=== PATIENT | male | born 1955 | race Caucasian/White ===

== ENCOUNTER 2016-08-03 23:41 | Emergency (ER) | payer MEDICARE, OTHER ==
[2016-08-03 23:53] VITALS: TEMP 98
[2016-08-04] MEDS ORDERED: SODIUM CHLORIDE 0.9% 500 ML IV STA (00:33)
[2016-08-04] MEDS ORDERED: LORazepam 2 MG/ML SYRINGE IV STA (00:33)
[2016-08-04] MEDS ORDERED: ALBUTEROL NEBULIZED 2.5 MG/3 ML INHALATION STA (00:33)
[2016-08-04] MEDS ORDERED: IPRATROPIUM 0.5 MG/2.5 ML NEBU INHALATION STA (00:33)
[2016-08-04] MEDS ORDERED: methylPREDNISolone SOD SUCCI 125 MG/2 ML VIAL IV STA (00:33)
[2016-08-04] MEDS ORDERED: KETOROLAC 30 MG/ML 1 ML VIAL IVP STA (00:34)
[2016-08-04] MEDS ORDERED: MORPHINE SULFATE 4 MG/ML SYRINGE IVP STA (00:34)
--- NOTE | 2016-08-04 00:53 | ED ---
General Adult HPI - General Chief complaint: Extremity Injury, Upper Stated complaint: Fall- Arm Injury-GREGG Time Seen by Provider: 08/04/16 00:26 Source: patient, RN notes reviewed, old records reviewed Mode of arrival: wheelchair Limitations: no limitations - History of Present Illness Initial comments: Physical a 60-year-old male the ER for evaluation. Patient then year status post fall. Patient also complained of shortness of breath and pain up and down his left arm. Patient into his neck. Patient states this pain is acute on chronic in nature but may be related to this fall. Patient is willing out of bed when he did sustain a smoker patient has multiple medical Gucci is including history of heart disease and lung disease. History of chronic pain. Denies any fevers. States recent hospital admission within a month for COPD. - Related Data Home Medications Medication Instructions Recorded Confirmed Montelukast [Singulair] 10 mg PO DAILY 03/16/14 08/03/16 amLODIPine [Norvasc] 5 mg PO QAM 07/05/14 08/03/16 ALPRAZolam [Xanax] 1 mg PO TID PRN 09/20/15 08/03/16 Desvenlafaxine Succinate [Pristiq] 100 mg PO QAM 09/20/15 08/03/16 Hydrocodone/Acetaminophen [[place] 1 tab PO BID PRN 04/08/16 08/03/16 10-325] fentaNYL [fentaNYL 50 MCG/HR] 1 patch TOPICAL Q72H 04/08/16 08/03/16 Clindamycin Gel [Clindamycin 1 applic TOPICAL BID 06/18/16 08/03/16 Phosphate] Fluticasone/Vilanterol [Breo 1 puff INHALATION RT-DAILY 07/16/16 08/03/16 Ellipta 100-25 Mcg Inhaler] Umeclidinium [place] [Incruse 1 puff INHALATION RT-DAILY 07/16/16 08/03/16 Ellipta] Previous Rx's Medication Instructions Recorded HYDROmorphone [Dilaudid] 1 mg PO Q8H PRN #15 tab 07/16/16 Levofloxacin [Levaquin] 500 mg PO DAILY #7 tab 07/16/16 predniSONE 50 mg PO DAILY #5 tab 07/16/16 Ipratropium-Albuterol Nebulize 3 ml INHALATION RT-Q4H PRN #0 07/19/16 [Duoneb 0.5 mg-3 mg/3 ml Soln] ampul.neb Allergies Allergy/AdvReac Type Severity Reaction Status Date / Time peanut Allergy alg testing Verified 08/03/16 23:53 DUST Allergy alg testing Uncoded 08/03/16 23:53 POLLEN Allergy alg testing Uncoded 08/03/16 23:53 Review of Systems ROS Statement: Those systems with pertinent positive or pertinent negative responses have been documented in the HPI. ROS Other: All systems not noted in ROS Statement are negative. Past Medical History Past Medical History: Atrial Flutter, Asthma, Chest Pain / Angina, COPD, GERD/ Reflux, Hypertension, Osteoarthritis (OA), Pneumonia, Sleep Apnea/CPAP/BIPAP Additional Past Medical History / Comment(s): 08/27/15 PT presented to [facility] ER with episode of substernal chest tightness and discomfort which is worse with coughing and deep breathing. He states he has had chills at home and a cough. Pt thinks he is not feeling right in his head. He is admitted with clinical impression of pneumonia, with elevated troponin 1 and CHF. Pt states he has been admitted to [facility] twice in the past month for pneumonia. Other HX : tracheopbronchitis, CELE with device-unable to tolerate CPAP, CERVICAL RADICULOPATHY, DDD, chronic low back pain, rosacia, peripheral edema at times, lower GI bleed with blood in stool, migraines, steroids Sep 2015,currently having nausea with abdominal pain History of Any Multi-Drug Resistant Organisms: None Reported Past Surgical History: Adenoidectomy, Bowel Resection Additional Past Surgical History / Comment(s): REMOVAL OF UVULA. bowel resection for large polyps, colonoscopy with polypectomies, nasal surgery x 2, bronchoscopy with lung bx, pain clinic procedures. Past Anesthesia/Blood Transfusion Reactions: Previous Problems w/ Anesthesia Additional Past Anesthesia/Blood Transfusion Reaction / Comment(s): states "during procedure of checking something on my left lung,I turned blue and I was brought right back out anesthesia and proc was cancelled" Past Psychological History: Anxiety, Bipolar, Depression, Panic Disorder Additional Psychological History / Comment(s): Pt resides alone in an apartment. He uses a cane to ambulate. There are several stairs in his apt He has a nebulizer. Smoking Status: Former smoker Past Alcohol Use History: Rare Additional Past Alcohol Use History / Comment(s): Pt quit smoking in the 1979. He had been a ppd smoker for about 15 yrs. Past Drug Use History: None Reported - Past Family History Mother Family Medical History: Asthma Father Family Medical History: CVA/TIA General Exam Limitations: no limitations General appearance: anxious Head exam: Present: atraumatic, normocephalic, normal inspection Eye exam: Present: normal appearance, PERRL, EOMI. Absent: scleral icterus, conjunctival injection, periorbital swelling ENT exam: Present: normal exam, mucous membranes moist Neck exam: Present: normal inspection. Absent: tenderness, meningismus, lymphadenopathy Respiratory exam: Present: normal lung sounds bilaterally. Absent: respiratory distress, wheezes, rales, rhonchi, stridor Cardiovascular Exam: Present: regular rate, normal rhythm, normal heart sounds. Absent: systolic murmur, diastolic murmur, rubs, gallop, clicks GI/Abdominal exam: Present: soft, normal bowel sounds. Absent: distended, tenderness, guarding, rebound, rigid Extremities exam: Present: normal inspection, full ROM, normal capillary refill. Absent: tenderness, pedal edema, joint swelling, calf tenderness Back exam: Present: normal inspection Neurological exam: Present: alert, oriented X3, CN II-XII intact Psychiatric exam: Present: normal affect, normal mood Skin exam: Present: warm, dry, intact, normal color. Absent: rash Course Vital Signs 08/03/16 08/03/16 08/04/16 23:48 23:52 00:52 Temperature 98.0 F Pulse Rate 96 101 H 98 Respiratory 18 16 18 Rate Blood Pressure 130/65 154/78 150/44 O2 Sat by Pulse 94 L 97 97 Oximetry 08/04/16 08/04/16 08/04/16 00:55 01:05 01:21 Temperature Pulse Rate 103 H 97 96 Respiratory Rate Blood Pressure O2 Sat by Pulse Oximetry 08/04/16 02:00 Temperature Pulse Rate 100 Respiratory 16 Rate Blood Pressure 156/74 O2 Sat by Pulse 97 Oximetry - Reevaluation(s) Reevaluation #1: 08/04/16 03:13 Symptoms at this time much improved, patient would like to go home EKG Findings - EKG Comments: EKG Findings:: EKG shows a sinus tach with a rate of 104, PA 126, QRS 88, QTc 457 Medical Decision Making - Medical Decision Making 60 LDR for evaluation of fall. Patient follow-up neck pain and shortness of breath, COPD exacerbation neck contusion and sprain, patient's pain is symptoms are controlled this time, patient is okay for discharge home - Lab Data Result diagrams: 08/04/16 01:05 08/04/16 01:05 Lab Results 08/04/16 08/04/16 08/04/16 Range/Units 01:05 01:05 01:05 WBC 8.3 (3.8-10.6) k/uL RBC 4.44 (4.30-5.90) m/uL Hgb 15.3 (13.0-17.5) gm/dL Hct 45.1 (39.0-53.0) % MCV 101.6 H (80.0-100.0) fL MCH 34.4 (25.0-35.0) pg MCHC 33.9 (31.0-37.0) g/dL RDW 13.5 (11.5-15.5) % Plt Count 203 (150-450) k/uL Neutrophils % 83 % Lymphocytes % 11 % Monocytes % 6 % Eosinophils % 0 % Basophils % 0 % Neutrophils # 6.8 (1.3-7.7) k/uL Lymphocytes # 0.9 L (1.0-4.8) k/uL Monocytes # 0.5 (0-1.0) k/uL Eosinophils # 0.0 (0-0.7) k/uL Basophils # 0.0 (0-0.2) k/uL Macrocytosis Slight PT (9.0-12.0) sec INR (<1.1) APTT (22.0-30.0) sec Sodium 146 H (137-145) mmol/L Potassium 4.1 (3.5-5.1) mmol/L Chloride 107 (98-107) mmol/L Carbon Dioxide 22 (22-30) mmol/L Anion Gap 17 mmol/L BUN 24 H (9-20) mg/dL Creatinine 0.90 (0.66-1.25) mg/dL Est GFR (MDRD) Af Amer >60 (>60 ml/min/1.73 sqM) Est GFR (MDRD) Non-Af >60 (>60 ml/min/1.73 sqM) Glucose 132 H (74-99) mg/dL Calcium 9.2 (8.4-10.2) mg/dL Magnesium 2.1 (1.6-2.3) mg/dL Total Bilirubin 0.5 (0.2-1.3) mg/dL AST 43 (17-59) U/L ALT 82 H (21-72) U/L Alkaline Phosphatase 90 (38-126) U/L Total Creatine Kinase 35 L (55-170) U/L CK-MB (CK-2) 1.0 (0.0-2.4) ng/mL CK-MB (CK-2) Rel Index 2.9 Troponin I <0.012 (0.000-0.034) ng/mL NT-Pro-B Natriuret Pep pg/mL Total Protein 6.3 (6.3-8.2) g/dL Albumin 4.1 (3.5-5.0) g/dL 08/04/16 08/04/16 Range/Units 01:05 01:05 WBC (3.8-10.6) k/uL RBC (4.30-5.90) m/uL Hgb (13.0-17.5) gm/dL Hct (39.0-53.0) % MCV (80.0-100.0) fL MCH (25.0-35.0) pg MCHC (31.0-37.0) g/dL RDW (11.5-15.5) % Plt Count (150-450) k/uL Neutrophils % % Lymphocytes % % Monocytes % % Eosinophils % % Basophils % % Neutrophils # (1.3-7.7) k/uL Lymphocytes # (1.0-4.8) k/uL Monocytes # (0-1.0) k/uL Eosinophils # (0-0.7) k/uL Basophils # (0-0.2) k/uL Macrocytosis PT 9.9 (9.0-12.0) sec INR 1.0 (<1.1) APTT 21.5 L (22.0-30.0) sec Sodium (137-145) mmol/L Potassium (3.5-5.1) mmol/L Chloride (98-107) mmol/L Carbon Dioxide (22-30) mmol/L Anion Gap mmol/L BUN (9-20) mg/dL Creatinine (0.66-1.25) mg/dL Est GFR (MDRD) Af Amer (>60 ml/min/1.73 sqM) Est GFR (MDRD) Non-Af (>60 ml/min/1.73 sqM) Glucose (74-99) mg/dL Calcium (8.4-10.2) mg/dL Magnesium (1.6-2.3) mg/dL Total Bilirubin (0.2-1.3) mg/dL AST (17-59) U/L ALT (21-72) U/L Alkaline Phosphatase (38-126) U/L Total Creatine Kinase (55-170) U/L CK-MB (CK-2) (0.0-2.4) ng/mL CK-MB (CK-2) Rel Index Troponin I (0.000-0.034) ng/mL NT-Pro-B Natriuret Pep 201 pg/mL Total Protein (6.3-8.2) g/dL Albumin (3.5-5.0) g/dL Disposition Clinical Impression: COPD (chronic obstructive pulmonary disease) with acute bronchitis, Cervical strain, Fall Disposition: HOME SELF-CARE Condition: Good Instructions: Neck Pain (ED), COPD (Chronic Obstructive Pulmonary Disease) (ED)
[2016-08-04] MEDS: SODIUM CHLORIDE 0.9% 1,000 ML IV STA ×2 (01:06→02:50)
[2016-08-04 01:32] LABS: Basophils % (A) 0 %; CH 34.6; CHCM 34.2; Eosinophils % (A) 0 %; HCT 45.1 % (39.0-53.0); HDW 2.73; HGB 15.3 gm/dL (13.0-17.5); Luc # (Auto) 0.06; Luc % (Auto) 1; Lymphocytes # (A) 0.9 k/uL (1.0-4.8); Lymphocytes % (A) 11 %; MCH 34.4 pg (25.0-35.0); MCHC 33.9 g/dL (31.0-37.0); MCV 101.6 fL (80.0-100.0); Macrocytosis Slight; Mean Platelet Volume 6.7; Monocytes # (A) 0.5 k/uL (0-1.0); Monocytes % (A) 6 %; Neutrophils # (A) 6.8 k/uL (1.3-7.7); Neutrophils % (A) 83 %; RBC 4.44 m/uL (4.30-5.90); RDW 13.5 % (11.5-15.5); WBC 8.3 k/uL (3.8-10.6); WBC (Perox) 8.26
[2016-08-04 01:49] LABS: ALT 82 U/L (21-72); AST 43 U/L (17-59); Alkaline Phosphatase 90 U/L (38-126); Anion Gap 17 mmol/L; Blood Urea Nitrogen 24 mg/dL (9-20); Calcium 9.2 mg/dL (8.4-10.2); Carbon Dioxide 22 mmol/L (22-30); Chloride 107 mmol/L (98-107); Glucose 132 mg/dL (74-99); Magnesium 2.1 mg/dL (1.6-2.3); Non-African American GFR(MDRD) >60 (>60 ml/min/1.73 sqM); Potassium 4.1 mmol/L (3.5-5.1); Sodium 146 mmol/L (137-145); Total Bilirubin 0.5 mg/dL (0.2-1.3); Total Protein 6.3 g/dL (6.3-8.2)
[2016-08-04 01:54] LABS: Prothrombin Time 9.9 sec (9.0-12.0)
[2016-08-04 01:57] LABS: Creatine Kinase 35 U/L (55-170)
[2016-08-04] MEDS ORDERED: HYDROmorphone 2 MG/ML 1 ML SYRINGE IVP STA (02:00)
[2016-08-04 02:11] LABS: Partial Thromboplastin Time 21.5 sec (22.0-30.0); Troponin I <0.012 ng/mL (0.000-0.034)
--- NOTE | 2016-08-04 02:34 | XR ---
EXAMINATION TYPE: XR chest 2V DATE OF EXAM: 08/04/2016 1:30 AM COMPARISON: July 18, 2016 HISTORY: Difficulty in breathing TECHNIQUE: Frontal and lateral views of the chest are obtained. FINDINGS: Mild peribronchial cuffing is suggested with possible chronic bronchitis changes. There is no focal air space opacity, pleural effusion, or pneumothorax seen. The cardiac silhouette size is within normal limits. The osseous structures are intact. IMPRESSION: 1. Possible chronic bronchitis changes. 2. No focal pneumonia. 3. No significant change.
[2016-08-04 02:48] VITALS: RESP 16
--- NOTE | 2016-08-04 03:09 | XR ---
EXAMINATION TYPE: XR cervical spine limited DATE OF EXAM: 08/04/2016 1:34 AM CLINICAL HISTORY: pain COMPARISON: NONE TECHNIQUE: Frontal, lateral, , swimmers, and open mouth view of the cervical spine are obtained. 3 vi ews of cervical spine were obtained. FINDINGS: The C7 vertebra is not well-visualized in the lateral view. The cervical spine is visualized in its e ntirety from C1 thru the top of T1 level. It is satisfactory in alignment without evidence of acute f racture or dislocation. The pre-vertebral soft tissue appears within normal limits. Disc spaces are well preserved. The C1-C2 articulation is unremarkable on the open mouth view. Mild endplate spondy losis is noted in the cervical spine. IMPRESSION: No acute fracture or dislocation is seen in the cervical spine in the visualized cervica l spine. The C7 vertebra is not well visualized in the evaluation..ICD 10 NO FRACTURE, INITIAL EVALUA TION If clinically indicated CT scan would BE beneficial in the evaluation.
[2016-08-04 03:44] VITALS: BP 130/77; PULSE 78
== END 2016-08-04 03:44 | disposition home or self-care (01) ==
LOC: EC 23:41
DX: S16.1XXA Strain of muscle, fascia and tendon at neck level, initial encounter (principal); J44.0 Chronic obstructive pulmonary disease with (acute) lower respiratory infection; J44.1 Chronic obstructive pulmonary disease with (acute) exacerbation; J20.9 Acute bronchitis, unspecified; J45.909 Unspecified asthma, uncomplicated; S10.83XA Contusion of other specified part of neck, initial encounter; K21.9 Gastro-esophageal reflux disease without esophagitis; I20.9 Angina pectoris, unspecified; F31.9 Bipolar disorder, unspecified; I10 Essential (primary) hypertension; F41.9 Anxiety disorder, unspecified; Z91.010 Allergy to peanuts; Z87.01 Personal history of pneumonia (recurrent); Z79.891 Long term (current) use of opiate analgesic; Y92.009 Unspecified place in unspecified non-institutional (private) residence as the place of occurrence of the external cause; W19.XXXA Unspecified fall, initial encounter; Z91.048 Other nonmedicinal substance allergy status; Z87.891 Personal history of nicotine dependence; Z79.899 Other long term (current) drug therapy; Z79.52 Long term (current) use of systemic steroids; Z79.51 Long term (current) use of inhaled steroids; Z79.2 Long term (current) use of antibiotics
CPT/HCPCS: 96374; 96375 ×4; 96361 ×2; 99284; 36415; 94640; 93005; 83880; 80053; 82550; 82553; 83735; 84484; 85025; 85610; 85730; 71020; 72040; J2270; J1170; J2930; J1885

== ENCOUNTER 2016-08-29 22:09 | Emergency (ER) | payer MEDICARE, OTHER ==
[2016-08-29 22:14] VITALS: BP 179/79; PULSE 95; RESP 20; TEMP 98.5
[2016-08-29] MEDS ORDERED: ORPHENADRINE 30 MG/ML 2 ML VIAL IM STA (22:31)
[2016-08-29] MEDS ORDERED: KETOROLAC 30 MG/ML 1 ML VIAL IM STA (22:32)
[2016-08-29] MEDS ORDERED: HYDROmorphone 1 MG/ML 1 ML SYRINGE IM STA (22:37)
--- NOTE | 2016-08-29 22:39 | ED ---
Back Pain HPI - General Chief Complaint: Back Pain/Injury Stated Complaint: neck & back pain Time Seen by Provider: 08/29/16 22:16 Source: patient, RN notes reviewed Limitations: no limitations - History of Present Illness Initial Comments: Patient is a 60-year-old male with chief complaint of neck and lower back pain. Patient reports that he has chronic back pain. Patient reports that he took one [place] earlier today however it is not helped with his pain. Patient reports that he does see Dr. Price his neurologist and has a scheduled appointment in 4 days for spinal injections for his chronic back pain. Patient reports that he's had no recent falls or injuries to the back. Patient reports that his pain is positional. He denies any specific peripheral paresthesias including numbness or tingling. Patient does have a history of COPD but denies any significant cough or chest pain or shortness of breath. Patient states that he does not want a prescription for any pain medication as he is on a pain contract with his neurologist. He states that he would just like to have the pain management is in the ER and to follow-up with his primary care. Patient was able to ambulate and denies any saddle anesthesias. - Related Data Home Medications Medication Instructions Recorded Confirmed Montelukast [Singulair] 10 mg PO DAILY 03/16/14 08/29/16 amLODIPine [Norvasc] 5 mg PO QAM 07/05/14 08/29/16 ALPRAZolam [Xanax] 1 mg PO TID PRN 09/20/15 08/29/16 Hydrocodone/Acetaminophen [[place] 1 tab PO BID PRN 04/08/16 08/29/16 10-325] Fluticasone/Vilanterol [Breo 1 puff INHALATION RT-DAILY 07/16/16 08/29/16 Ellipta 100-25 Mcg Inhaler] Previous Rx's Medication Instructions Recorded Ipratropium-Albuterol Nebulize 3 ml INHALATION RT-Q4H PRN #0 07/19/16 [Duoneb 0.5 mg-3 mg/3 ml Soln] ampul.neb Cyclobenzaprine [Flexeril] 10 mg PO HS #12 tablet 08/29/16 Allergies Allergy/AdvReac Type Severity Reaction Status Date / Time peanut Allergy alg testing Verified 08/03/16 23:53 DUST Allergy alg testing Uncoded 08/03/16 23:53 POLLEN Allergy alg testing Uncoded 08/03/16 23:53 Review of Systems ROS Statement: Those systems with pertinent positive or pertinent negative responses have been documented in the HPI. ROS Other: All systems not noted in ROS Statement are negative. Past Medical History Past Medical History: Atrial Flutter, Asthma, Chest Pain / Angina, COPD, GERD/ Reflux, Hypertension, Osteoarthritis (OA), Pneumonia, Sleep Apnea/CPAP/BIPAP Additional Past Medical History / Comment(s): 08/27/15 PT presented to [facility] ER with episode of substernal chest tightness and discomfort which is worse with coughing and deep breathing. He states he has had chills at home and a cough. Pt thinks he is not feeling right in his head. He is admitted with clinical impression of pneumonia, with elevated troponin 1 and CHF. Pt states he has been admitted to [facility] twice in the past month for pneumonia. Other HX : tracheopbronchitis, CELE with device-unable to tolerate CPAP, CERVICAL RADICULOPATHY, DDD, chronic low back pain, rosacia, peripheral edema at times, lower GI bleed with blood in stool, migraines, steroids Sep 2015,currently having nausea with abdominal pain History of Any Multi-Drug Resistant Organisms: None Reported Past Surgical History: Adenoidectomy, Bowel Resection Additional Past Surgical History / Comment(s): REMOVAL OF UVULA. bowel resection for large polyps, colonoscopy with polypectomies, nasal surgery x 2, bronchoscopy with lung bx, pain clinic procedures. Past Anesthesia/Blood Transfusion Reactions: Previous Problems w/ Anesthesia Additional Past Anesthesia/Blood Transfusion Reaction / Comment(s): states "during procedure of checking something on my left lung,I turned blue and I was brought right back out anesthesia and proc was cancelled" Past Psychological History: Anxiety, Bipolar, Depression, Panic Disorder Additional Psychological History / Comment(s): Pt resides alone in an apartment. He uses a cane to ambulate. There are several stairs in his apt He has a nebulizer. Smoking Status: Former smoker Past Alcohol Use History: Occasional Additional Past Alcohol Use History / Comment(s): Pt quit smoking in the 1979. He had been a ppd smoker for about 15 yrs. Past Drug Use History: None Reported - Past Family History Mother Family Medical History: Asthma Father Family Medical History: CVA/TIA General Exam - General Exam Comments Initial Comments: Patient is a pleasant 60-year-old male. He does not appear to be in any acute distress. Limitations: no limitations General appearance: alert, in no apparent distress Head exam: Present: atraumatic, normocephalic, normal inspection Eye exam: Present: normal appearance, PERRL, EOMI. Absent: scleral icterus, conjunctival injection, periorbital swelling ENT exam: Present: normal exam, mucous membranes moist Neck exam: Present: normal inspection. Absent: tenderness, meningismus, lymphadenopathy Respiratory exam: Present: normal lung sounds bilaterally. Absent: respiratory distress, wheezes, rales, rhonchi, stridor Cardiovascular Exam: Present: regular rate, normal rhythm, normal heart sounds. Absent: systolic murmur, diastolic murmur, rubs, gallop, clicks GI/Abdominal exam: Present: soft, normal bowel sounds. Absent: distended, tenderness, guarding, rebound, rigid Extremities exam: Present: normal inspection, full ROM, normal capillary refill. Absent: tenderness, pedal edema, joint swelling, calf tenderness Back exam: Present: normal inspection, paraspinal tenderness. Absent: CVA tenderness (L) Neurological exam: Present: alert, oriented X3, CN II-XII intact Psychiatric exam: Present: normal affect, normal mood Skin exam: Present: warm, dry, intact, normal color. Absent: rash Course Vital Signs 08/29/16 22:11 Temperature 98.5 F Pulse Rate 95 Respiratory 20 Rate Blood Pressure 179/79 O2 Sat by Pulse 96 Oximetry Medical Decision Making - Medical Decision Making Patient is a 60-year-old male with a history of chronic back pain. Patient reports that he is back is in significant pain however he denies any falls or specific injuries to cause the new pain. Given the fact the patient has no specific falls or injuries to cause a new onset of pain we will hold on doing any x-rays at this time. Patient hasn't had recent cervical, lumbar and thoracic x-rays. Patient reports that he took one of his [place] at home earlier today however he is now out of them. He does state he is on a pain contract with Dr. Price and is unable to receive any prescriptions for pain medications. Patient reports that he has no saddle anesthesias and denies any other symptoms at this time. Patient was given IM Norflex, Toradol and 0.5 of Dilaudid for his pain. Patient advised to follow-up with primary care and neurologist in regards to narcotic pain medications. Patient understands treatment plan will comply. Return parameters were discussed. Disposition Clinical Impression: Back pain Disposition: HOME SELF-CARE Condition: Good Instructions: Chronic Back Pain (ED) Additional Instructions: Patient advised to follow up with primary care provider. Patient instructed to return to the [facility] if any alarming signs or symptoms occur. Prescriptions: Cyclobenzaprine [Flexeril] 10 mg PO HS #12 tablet Referrals: Michael Nuñez MD [Primary Care Provider] - 1-2 days Time of Disposition: 22:32
== END 2016-08-29 23:05 | disposition home or self-care (01) ==
LOC: EC 22:09
DX: G89.29 Other chronic pain (principal); M54.5 Low back pain; G47.30 Sleep apnea, unspecified; J45.909 Unspecified asthma, uncomplicated; J44.9 Chronic obstructive pulmonary disease, unspecified; Z91.010 Allergy to peanuts; Z87.891 Personal history of nicotine dependence; Z91.048 Other nonmedicinal substance allergy status; Z79.899 Other long term (current) drug therapy
CPT/HCPCS: 99283; 96372 ×3; J2360; J1885; J1170

== ENCOUNTER 2016-08-30 04:05 | Emergency (ER) | payer MEDICARE, OTHER ==
[2016-08-30] MEDS ORDERED: SODIUM CHLORIDE 0.9% 500 ML IV STA (05:02)
[2016-08-30] MEDS ORDERED: KETOROLAC 30 MG/ML 1 ML VIAL IVP STA ×2 (05:03→06:13)
[2016-08-30] MEDS ORDERED: methylPREDNISolone SOD SUCCI 125 MG/2 ML VIAL IV STA (05:03)
[2016-08-30] MEDS ORDERED: ORPHENADRINE 30 MG/ML 2 ML VIAL IVP STA (05:03)
--- NOTE | 2016-08-30 05:06 | ED ---
Back Pain HPI - General Source: patient, RN notes reviewed Limitations: no limitations - History of Present Illness MD Complaint: other <Alexander Dykes - Last Filed: 08/30/16 06:49> <Gerry Gross - Last Filed: 08/30/16 08:12> - General Chief Complaint: Back Pain/Injury Stated Complaint: neck/back pain-revisit Time Seen by Provider: 08/30/16 04:48 - History of Present Illness Initial Comments: This is a 60-year-old male with a history of multiple medical problems including degenerative disc disease and chronic back pain who states he had the onset over last day or so of left-sided neck and shoulder pain. He was seen in the emergency department last night and some medications he states it did not help very much. He states he couldn't sleep so he can make an for reevaluation. He denies any fevers chills sweats nausea vomiting any weakness was upper or lower extremities. He complains some pain and points to the left lateral posterior neck musculature. He denies any spinous process tenderness. Patient states the pain is 10/10 and sharp in nature. (Alexander Dykes) - Related Data Home Medications Medication Instructions Recorded Confirmed Montelukast [Singulair] 10 mg PO DAILY 03/16/14 08/30/16 amLODIPine [Norvasc] 5 mg PO QAM 07/05/14 08/30/16 ALPRAZolam [Xanax] 1 mg PO TID PRN 09/20/15 08/30/16 Hydrocodone/Acetaminophen [[place] 1 tab PO BID PRN 04/08/16 08/30/16 10-325] Fluticasone/Vilanterol [Breo 1 puff INHALATION RT-DAILY 07/16/16 08/30/16 Ellipta 100-25 Mcg Inhaler] Previous Rx's Medication Instructions Recorded Ipratropium-Albuterol Nebulize 3 ml INHALATION RT-Q4H PRN #0 07/19/16 [Duoneb 0.5 mg-3 mg/3 ml Soln] ampul.neb Cyclobenzaprine [Flexeril] 10 mg PO HS #12 tablet 08/29/16 Allergies Allergy/AdvReac Type Severity Reaction Status Date / Time peanut Allergy alg testing Verified 08/03/16 23:53 DUST Allergy alg testing Uncoded 08/03/16 23:53 POLLEN Allergy alg testing Uncoded 08/03/16 23:53 Review of Systems ROS Other: All systems not noted in ROS Statement are negative. <Alexander Dykes - Last Filed: 08/30/16 06:49> ROS Other: All systems not noted in ROS Statement are negative. <Gerry Gross - Last Filed: 08/30/16 08:12> ROS Statement: Those systems with pertinent positive or pertinent negative responses have been documented in the HPI. Past Medical History Past Medical History: Atrial Flutter, Asthma, Chest Pain / Angina, COPD, GERD/ Reflux, Hypertension, Osteoarthritis (OA), Pneumonia, Sleep Apnea/CPAP/BIPAP Additional Past Medical History / Comment(s): 08/27/15 PT presented to [facility] ER with episode of substernal chest tightness and discomfort which is worse with coughing and deep breathing. He states he has had chills at home and a cough. Pt thinks he is not feeling right in his head. He is admitted with clinical impression of pneumonia, with elevated troponin 1 and CHF. Pt states he has been admitted to [facility] twice in the past month for pneumonia. Other HX : tracheopbronchitis, CELE with device-unable to tolerate CPAP, CERVICAL RADICULOPATHY, DDD, chronic low back pain, rosacia, peripheral edema at times, lower GI bleed with blood in stool, migraines, steroids Sep 2015,currently having nausea with abdominal pain History of Any Multi-Drug Resistant Organisms: None Reported Past Surgical History: Adenoidectomy, Bowel Resection Additional Past Surgical History / Comment(s): REMOVAL OF UVULA. bowel resection for large polyps, colonoscopy with polypectomies, nasal surgery x 2, bronchoscopy with lung bx, pain clinic procedures. Past Anesthesia/Blood Transfusion Reactions: Previous Problems w/ Anesthesia Additional Past Anesthesia/Blood Transfusion Reaction / Comment(s): states "during procedure of checking something on my left lung,I turned blue and I was brought right back out anesthesia and proc was cancelled" Past Psychological History: Anxiety, Bipolar, Depression, Panic Disorder Additional Psychological History / Comment(s): Pt resides alone in an apartment. He uses a cane to ambulate. There are several stairs in his apt He has a nebulizer. Smoking Status: Former smoker Past Alcohol Use History: Occasional Additional Past Alcohol Use History / Comment(s): Pt quit smoking in the 1979. He had been a ppd smoker for about 15 yrs. Past Drug Use History: None Reported - Past Family History Mother Family Medical History: Asthma Father Family Medical History: CVA/TIA <Alexander Dykes - Last Filed: 08/30/16 06:49> General Exam Limitations: no limitations General appearance: alert, in no apparent distress Head exam: Present: atraumatic, normocephalic, normal inspection Eye exam: Present: normal appearance, PERRL, EOMI. Absent: scleral icterus, conjunctival injection, periorbital swelling ENT exam: Present: normal exam, mucous membranes moist Neck exam: Present: normal inspection, tenderness, other (Tenderness to palpation over left posterior lower neck musculature and paraspinous muscles no spinous process tenderness. It is palpation over the medial trapezius muscle.) . Absent: meningismus, full ROM, lymphadenopathy, thyromegaly Respiratory exam: Present: normal lung sounds bilaterally. Absent: respiratory distress, wheezes, rales, rhonchi, stridor Cardiovascular Exam: Present: regular rate, normal rhythm, normal heart sounds. Absent: systolic murmur, diastolic murmur, rubs, gallop, clicks Extremities exam: Present: normal inspection, full ROM, normal capillary refill. Absent: tenderness, pedal edema, joint swelling, calf tenderness Back exam: Present: normal inspection Neurological exam: Present: alert, oriented X3, CN II-XII intact Psychiatric exam: Present: normal affect, normal mood Skin exam: Present: warm, dry, intact, normal color. Absent: rash <Alexander Dykes - Last Filed: 08/30/16 06:49> <Gerry Gross - Last Filed: 08/30/16 08:12> - General Exam Comments Initial Comments: This is a well-developed well-nourished awake alert oriented times 3 male (Donis Alexander) Course <Alexander Dykes - Last Filed: 08/30/16 06:49> <Gerry Gross - Last Filed: 08/30/16 08:12> Vital Signs 08/30/16 08/30/16 08/30/16 04:35 05:37 07:44 Temperature 97.8 F 98 F Pulse Rate 79 91 67 Respiratory 18 18 16 Rate Blood Pressure 128/74 140/83 133/80 O2 Sat by Pulse 92 L 96 95 Oximetry - Reevaluation(s) Reevaluation #1: 08/30/16 06:49 The patient states that thus far is got no relief he still has reproducible tenderness palpation of the left trapezius/lateral neck musculature. Further pain medication will be attempted (Alexander Dykes) Reevaluation #2: 08/30/16 06:50 Patient will be endorsed to Dr. Gross who will make the final disposition (Alexander Dykes) Medical Decision Making - Lab Data Result diagrams: 08/30/16 05:40 <Alexander Dykes - Last Filed: 08/30/16 06:49> - Lab Data Result diagrams: 08/30/16 05:40 <Gerry Gross - Last Filed: 08/30/16 08:12> - Lab Data Lab Results 08/30/16 Range/Units 05:40 Sodium 147 H (137-145) mmol/L Potassium 3.8 (3.5-5.1) mmol/L Chloride 102 (98-107) mmol/L Carbon Dioxide 28 (22-30) mmol/L Anion Gap 17 mmol/L BUN 22 H (9-20) mg/dL Creatinine 1.40 H (0.66-1.25) mg/dL Est GFR (MDRD) Af Amer >60 (>60 ml/min/1.73 sqM) Est GFR (MDRD) Non-Af 52 (>60 ml/min/1.73 sqM) Glucose 105 H (74-99) mg/dL Calcium 9.1 (8.4-10.2) mg/dL Magnesium 1.9 (1.6-2.3) mg/dL Total Bilirubin 0.6 (0.2-1.3) mg/dL AST 30 (17-59) U/L ALT 53 (21-72) U/L Alkaline Phosphatase 98 (38-126) U/L Total Protein 6.6 (6.3-8.2) g/dL Albumin 4.2 (3.5-5.0) g/dL Disposition <Alexander Dykes - Last Filed: 08/30/16 06:49> <Gerry Gross - Last Filed: 08/30/16 08:12> Clinical Impression: Exacerbation of chronic back pain Disposition: HOME SELF-CARE Condition: Fair Instructions: Chronic Back Pain (ED) Referrals: Michael Nuñez MD [Primary Care Provider] - 1-2 days
[2016-08-30] MEDS: SODIUM CHLORIDE 0.9% 1,000 ML IV STA ×2 (05:30→06:19)
[2016-08-30 05:39] VITALS: TEMP 98
[2016-08-30 06:07] LABS: ALT 53 U/L (21-72); AST 30 U/L (17-59); Alkaline Phosphatase 98 U/L (38-126); Anion Gap 17 mmol/L; Blood Urea Nitrogen 22 mg/dL (9-20); Calcium 9.1 mg/dL (8.4-10.2); Carbon Dioxide 28 mmol/L (22-30); Chloride 102 mmol/L (98-107); Glucose 105 mg/dL (74-99); Magnesium 1.9 mg/dL (1.6-2.3); Non-African American GFR(MDRD) 52 (>60 ml/min/1.73 sqM); Potassium 3.8 mmol/L (3.5-5.1); Sodium 147 mmol/L (137-145); Total Bilirubin 0.6 mg/dL (0.2-1.3); Total Protein 6.6 g/dL (6.3-8.2)
[2016-08-30] MEDS ORDERED: HYDROmorphone 1 MG/ML 1 ML SYRINGE IVP STA ×2 (06:13→06:49)
[2016-08-30] MEDS ORDERED: LORazepam 2 MG/ML SYRINGE IV STA (06:49)
--- NOTE | 2016-08-30 07:45 | XR ---
EXAMINATION TYPE: XR cervical spine comp DATE OF EXAM: 08/30/2016 7:38 AM COMPARISON: 08/04/2016 HISTORY: Pain Odontoid, frontal, lateral, and bilateral oblique views of the cervical spine are submitted. The odontoid is intact. There are no compression deformities. The prevertebral soft tissue structur es are within normal limits. Calcification soft tissue the neck likely vascular. Multilevel degenera tive disc disease seen. Hypertrophic changes noted anteriorly. 2 mm anterolisthesis of C3 on C4 stabl e. Prevertebral soft tissue structures are within normal limits. IMPRESSION: 1. No acute process. Multilevel degenerative disc disease.
--- NOTE | 2016-08-30 08:03 | XR ---
EXAMINATION TYPE: XR chest 2V DATE OF EXAM: 08/30/2016 7:38 AM COMPARISON: 08/04/2016 HISTORY: Chest pain FINDINGS: The lungs are clear and there is no pneumothorax, pleural effusion, or focal pneumonia. The heart is enlarged. No failure. Apical pleural thickening noted. Mild degenerative change spine. L inear changes at the lung bases most likely atelectasis. IMPRESSION: 1. Linear subsegmental changes at the lung base likely related to atelectasis. Correlate clinically
[2016-08-30 08:29] VITALS: BP 136/72; PULSE 74; RESP 14
== END 2016-08-30 08:38 | disposition home or self-care (01) ==
LOC: EC 04:05
DX: G89.29 Other chronic pain (principal); M54.9 Dorsalgia, unspecified; M50.30 Other cervical disc degeneration, unspecified cervical region; Z79.899 Other long term (current) drug therapy; M25.512 Pain in left shoulder; F41.9 Anxiety disorder, unspecified; Z87.891 Personal history of nicotine dependence; Z79.51 Long term (current) use of inhaled steroids
CPT/HCPCS: 36415; 80053; 83735; 71020; 72050; 96374; 96375; 96361; 96376; 99283; J2060; J2360; J2930; J1885; J1170

== ENCOUNTER 2016-09-23 21:57 | Emergency (ER) | payer MEDICARE, OTHER ==
[2016-09-23 22:19] VITALS: BP 141/92; PULSE 103; RESP 18; TEMP 98.4
[2016-09-23] MEDS ORDERED: MORPHINE SULFATE 10 MG/ML SYRINGE IM STA (23:26)
--- NOTE | 2016-09-23 23:27 | ED ---
Neck Injury/Pain HPI - General Chief Complaint: Neck Pain/Injury Stated Complaint: Back/Neck Pain Time Seen by Provider: 09/23/16 22:44 Source: RN notes reviewed Mode of arrival: wheelchair Limitations: no limitations - History of Present Illness Initial Comments: Patient is a 60-year-old male presents to the emergency room for evaluation of neck pain. Patient states he has a history of chronic back pain including degenerative disc disease. Patient states that he used to be on a fentanyl patch along with Anton. Patient states he discontinued the fentanyl patches and has only been Anton. Patient stated since the fentanyl patch was discontinued he has been having worsening neck pain. Patient stated the Anton has not been helping his pain without the fentanyl patch. Patient states he can 't get a refill of his Anton until Wednesday. Patient states been having worsening pain the past 2 days. Patient states the pain is like his usual pain. Patient states the pain is on the left side of his neck. Patient denies recent injury or trauma to his neck. Patient denies any recent falls. Patient denies dizziness. Patient denies fevers or chills. Patient denies chest pain or shortness of breath. Patient denies numbness or tingling in arms or legs. - Related Data Home Medications Medication Instructions Recorded Confirmed Montelukast [Singulair] 10 mg PO DAILY 03/16/14 09/23/16 amLODIPine [Norvasc] 5 mg PO QAM 07/05/14 09/23/16 ALPRAZolam [Xanax] 1 mg PO TID PRN 09/20/15 09/23/16 Fluticasone/Vilanterol [Breo 1 puff INHALATION RT-DAILY 07/16/16 09/23/16 Ellipta 100-25 Mcg Inhaler] Desvenlafaxine [Pristiq ER] 100 mg PO DAILY 09/23/16 09/23/16 HYDROcodone/APAP 10-325MG [[place] 1 tab PO Q8H PRN 09/23/16 09/23/16 10-325] Previous Rx's Medication Instructions Recorded Ipratropium-Albuterol Nebulize 3 ml INHALATION RT-Q4H PRN #0 07/19/16 [Duoneb 0.5 mg-3 mg/3 ml Soln] ampul.neb Cyclobenzaprine [Flexeril] 10 mg PO HS #12 tablet 08/29/16 Allergies Allergy/AdvReac Type Severity Reaction Status Date / Time peanut Allergy alg testing Verified 09/23/16 22:32 DUST Allergy alg testing Uncoded 08/03/16 23:53 POLLEN Allergy alg testing Uncoded 08/03/16 23:53 Review of Systems ROS Statement: Those systems with pertinent positive or pertinent negative responses have been documented in the HPI. ROS Other: All systems not noted in ROS Statement are negative. Past Medical History Past Medical History: Atrial Flutter, Asthma, Chest Pain / Angina, COPD, GERD/ Reflux, Hypertension, Osteoarthritis (OA), Pneumonia, Sleep Apnea/CPAP/BIPAP Additional Past Medical History / Comment(s): 08/27/15 PT presented to [facility] ER with episode of substernal chest tightness and discomfort which is worse with coughing and deep breathing. He states he has had chills at home and a cough. Pt thinks he is not feeling right in his head. He is admitted with clinical impression of pneumonia, with elevated troponin 1 and CHF. Pt states he has been admitted to [facility] twice in the past month for pneumonia. Other HX : tracheopbronchitis, CELE with device-unable to tolerate CPAP, CERVICAL RADICULOPATHY, DDD, chronic low back pain, rosacia, peripheral edema at times, lower GI bleed with blood in stool, migraines, steroids Sep 2015,currently having nausea with abdominal pain History of Any Multi-Drug Resistant Organisms: None Reported Past Surgical History: Adenoidectomy, Bowel Resection Additional Past Surgical History / Comment(s): REMOVAL OF UVULA. bowel resection for large polyps, colonoscopy with polypectomies, nasal surgery x 2, bronchoscopy with lung bx, pain clinic procedures. Past Anesthesia/Blood Transfusion Reactions: Previous Problems w/ Anesthesia Additional Past Anesthesia/Blood Transfusion Reaction / Comment(s): states "during procedure of checking something on my left lung,I turned blue and I was brought right back out anesthesia and proc was cancelled" Past Psychological History: Anxiety, Bipolar, Depression, Panic Disorder Additional Psychological History / Comment(s): Pt resides alone in an apartment. He uses a cane to ambulate. There are several stairs in his apt He has a nebulizer. Smoking Status: Former smoker Past Alcohol Use History: Occasional Additional Past Alcohol Use History / Comment(s): Pt quit smoking in the 1979. He had been a ppd smoker for about 15 yrs. Past Drug Use History: None Reported - Past Family History Mother Family Medical History: Asthma Father Family Medical History: CVA/TIA General Exam - General Exam Comments Initial Comments: Sitting in exam room in no acute distress. Limitations: no limitations General appearance: alert, in no apparent distress Head exam: Present: atraumatic, normocephalic, normal inspection Eye exam: Present: normal appearance ENT exam: Present: normal exam Neck exam: Present: normal inspection, tenderness (Tenderness on palpating over the left paracervical muscle and along the trapezius muscle on the left side.) Respiratory exam: Present: normal lung sounds bilaterally. Absent: respiratory distress Cardiovascular Exam: Present: regular rate, normal rhythm, normal heart sounds Extremities exam: Present: normal inspection Back exam: Present: normal inspection Neurological exam: Present: alert, oriented X3, CN II-XII intact, normal gait Expanded Motor strength exam: RUE: 5, LUE: 5, RLE: 5, LLE: 5 Psychiatric exam: Present: normal affect, normal mood Skin exam: Present: warm, dry, intact, normal color. Absent: rash Course Vital Signs 09/23/16 22:15 Temperature 98.4 F Pulse Rate 103 H Respiratory 18 Rate Blood Pressure 141/92 O2 Sat by Pulse 94 L Oximetry Medical Decision Making - Medical Decision Making Patient is a 60-year-old male presents to the emergency room for evaluation of chronic back pain. Agreed to give patient pain medications while he was here. Patient can refill his prescriptions on Wednesday. Patient states he stands everything that was discussed with him. Return parameters discussed. Case discussed with Dr. Gross. Disposition Clinical Impression: Chronic neck pain Disposition: HOME SELF-CARE Condition: Good Instructions: Neck Pain (ED), Cervical Strain (ED) Additional Instructions: Please follow up with primary care provider or paint mixer in 1- 2 days. If any new symptom arises or symptoms worsen, return to ER as soon as possible. Referrals: Michael Nuñez MD [Primary Care Provider] - 1-2 days Time of Disposition: 23:26
== END 2016-09-23 23:36 | disposition home or self-care (01) ==
LOC: EC 21:57
DX: S16.1XXA Strain of muscle, fascia and tendon at neck level, initial encounter (principal); M54.9 Dorsalgia, unspecified; J45.909 Unspecified asthma, uncomplicated; J44.9 Chronic obstructive pulmonary disease, unspecified; I10 Essential (primary) hypertension; M19.90 Unspecified osteoarthritis, unspecified site; Z87.01 Personal history of pneumonia (recurrent); I48.91 Unspecified atrial fibrillation; F31.9 Bipolar disorder, unspecified; F41.9 Anxiety disorder, unspecified; G47.30 Sleep apnea, unspecified; F41.0 Panic disorder [episodic paroxysmal anxiety]; Z87.891 Personal history of nicotine dependence; Z79.899 Other long term (current) drug therapy; Z91.010 Allergy to peanuts; Z91.048 Other nonmedicinal substance allergy status; Z91.09 Other allergy status, other than to drugs and biological substances; X58.XXXA Exposure to other specified factors, initial encounter
CPT/HCPCS: 99283; 96372; J2270

== ENCOUNTER 2016-10-08 22:03 | Emergency (ER) | payer MEDICARE, OTHER ==
[2016-10-08] MEDS ORDERED: SODIUM CHLORIDE 0.9% 500 ML IV STA (22:33)
[2016-10-08] MEDS ORDERED: SODIUM CHLORIDE 0.9% 1,000 ML IV STA (22:33)
[2016-10-08] MEDS ORDERED: HYDROmorphone 1 MG/ML 1 ML SYRINGE IVP STA (22:51)
[2016-10-08 22:55] LABS: Basophils % (A) 1 %; CH 35.6; CHCM 33.8; Eosinophils # (A) 0.3 k/uL (0-0.7); Eosinophils % (A) 5 %; HCT 42.4 % (39.0-53.0); HDW 2.99; HGB 13.5 gm/dL (13.0-17.5); Luc # (Auto) 0.16; Luc % (Auto) 3; Lymphocytes # (A) 1.2 k/uL (1.0-4.8); Lymphocytes % (A) 21 %; MCH 33.8 pg (25.0-35.0); MCHC 31.9 g/dL (31.0-37.0); MCV 106.1 fL (80.0-100.0); Macrocytosis Moderate; Mean Platelet Volume 7.1; Monocytes # (A) 0.4 k/uL (0-1.0); Monocytes % (A) 6 %; Neutrophils # (A) 3.8 k/uL (1.3-7.7); Neutrophils % (A) 64 %; RDW 14.5 % (11.5-15.5); WBC 5.8 k/uL (3.8-10.6); WBC (Perox) 5.89
--- NOTE | 2016-10-08 23:03 | XR ---
EXAMINATION TYPE: XR chest 2V DATE OF EXAM: 10/08/2016 10:55 PM COMPARISON: 08/30/2016 HISTORY: Difficulty breathing TECHNIQUE: Frontal and lateral views of the chest are obtained. FINDINGS: Heart and mediastinum are normal. There is probably a small hiatal hernia. There is mild s ubsegmental atelectasis in the right midlung. There is no pleural effusion. There is no heart failure . IMPRESSION: New focal atelectasis in the right midlung compared to last exam. Normal heart.
[2016-10-08 23:05] LABS: Partial Thromboplastin Time 22.4 sec (22.0-30.0); Prothrombin Time 10.5 sec (9.0-12.0)
[2016-10-08 23:11] LABS: ALT 93 U/L (21-72); AST 56 U/L (17-59); Alkaline Phosphatase 96 U/L (38-126); Anion Gap 12 mmol/L; Blood Urea Nitrogen 23 mg/dL (9-20); Calcium 8.5 mg/dL (8.4-10.2); Carbon Dioxide 26 mmol/L (22-30); Chloride 106 mmol/L (98-107); Glucose 101 mg/dL (74-99); Non-African American GFR(MDRD) >60 (>60 ml/min/1.73 sqM); Potassium 4.1 mmol/L (3.5-5.1); Sodium 144 mmol/L (137-145); Total Bilirubin 0.5 mg/dL (0.2-1.3); Total Protein 6.1 g/dL (6.3-8.2)
--- NOTE | 2016-10-08 23:11 | XR ---
EXAMINATION TYPE: XR lumbar spine 2 or 3V DATE OF EXAM: 10/08/2016 10:55 PM COMPARISON: 07/15/2016 HISTORY: Low back pain TECHNIQUE: 3 views FINDINGS: Vertebra have normal alignment. Posterior elements are intact. There is no compression frac ture. Abdominal aorta is atheromatous. Sacroiliac joints appear normal. IMPRESSION: No acute abnormality of the lumbar spine. No change. No fracture.
--- NOTE | 2016-10-08 23:12 | XR ---
EXAMINATION TYPE: XR sacrum coccyx DATE OF EXAM: 10/08/2016 10:55 PM COMPARISON: NONE HISTORY: Back pain TECHNIQUE: 3 views FINDINGS: Segments have normal alignment. There is no sign of a fracture. Lower lumbar spine is intac t. Sacroiliac joints appear normal. IMPRESSION: Normal sacrum and coccyx exam.
[2016-10-08 23:14] LABS: Creatine Kinase 86 U/L (55-170)
[2016-10-08 23:18] VITALS: RESP 16; TEMP 98
[2016-10-08 23:27] LABS: Creatine Kinase MB 1.7 ng/mL (0.0-2.4); Troponin I <0.012 ng/mL (0.000-0.034)
--- NOTE | 2016-10-08 23:40 | ED ---
Fall HPI - General Chief Complaint: Fall Stated Complaint: fall Time Seen by Provider: 10/08/16 22:20 Source: patient Mode of arrival: ambulatory - History of Present Illness Initial Comments: Patient is a 60-year-old male chief complaint of a fall yesterday evening from approximately 6 steps. Patient reports that he tripped while carrying a laundry basket and fell on his lower back. He reports that he does have chronic back pain. He states that he was able to ambulate after the injury. Patient reports he isn't currently under a pain contract with his neurologist. Patient states that he has also noticed increased cough and swelling of both of his legs for approximately 1 day. Patient denies any pain with his legs. He states that he does take a blood pressure medication and has been taking it regularly. He states that he is not currently taking any Lasix. Patient reports that he did had no head injury or loss consciousness after the fall. Patient reports that he is in significant pain over his lower back. He denies any saddle anesthesias or pain radiating down towards his legs.Patient denies any recent shortness of breath, chest pain, back pain, abdominal pain, nausea vomiting, numbness or tingling, dysuria or hematuria, constipation or diarrhea, headaches or visual changes, or any other current symptoms - Related Data Home Medications Medication Instructions Recorded Confirmed Montelukast [Singulair] 10 mg PO DAILY 03/16/14 10/08/16 amLODIPine [Norvasc] 5 mg PO QAM 07/05/14 10/08/16 ALPRAZolam [Xanax] 1 mg PO TID 09/20/15 10/08/16 Fluticasone/Vilanterol [Breo 1 puff INHALATION RT-DAILY 07/16/16 10/08/16 Ellipta 100-25 Mcg Inhaler] Desvenlafaxine [Pristiq ER] 100 mg PO DAILY 09/23/16 10/08/16 Clindamycin Gel [Clindamycin 1 applic TOPICAL BID 10/08/16 10/08/16 Phosphate] Fluocinolone Acetonide [Synalar] 1 applic TOPICAL DAILY 10/08/16 10/08/16 HYDROcodone/APAP 7.5-325MG [[place] 1 tab PO BID PRN 10/08/16 10/08/16 7.5-325] Hydrocortisone Cream 1 applic TOPICAL BID 10/08/16 10/08/16 [Hydrocortisone 2.5% Cream] Ketoconazole 2% Shampoo [Nizoral] 1 applic TOPICAL Q72H 10/08/16 10/08/16 Triamcinolone 0.1% Cream [Kenalog] 1 applicatio TOPICAL BID 10/08/16 10/08/16 Umeclidinium [place] [Incruse 1 puff INHALATION RT-DAILY 10/08/16 10/08/16 Ellipta] fentaNYL [Duragesic 50MCG/HR] 1 patch TRANSDERM Q72H 10/08/16 10/08/16 Previous Rx's Medication Instructions Recorded Ipratropium-Albuterol Nebulize 3 ml INHALATION RT-Q4H PRN #0 07/19/16 [Duoneb 0.5 mg-3 mg/3 ml Soln] ampul.neb Allergies Allergy/AdvReac Type Severity Reaction Status Date / Time peanut Allergy alg testing Verified 10/08/16 22:46 DUST Allergy alg testing Uncoded 09/24/16 22:45 POLLEN Allergy alg testing Uncoded 09/24/16 22:45 Review of Systems ROS Statement: Those systems with pertinent positive or pertinent negative responses have been documented in the HPI. ROS Other: All systems not noted in ROS Statement are negative. Past Medical History Past Medical History: Atrial Flutter, Asthma, Chest Pain / Angina, COPD, GERD/ Reflux, Hypertension, Osteoarthritis (OA), Pneumonia, Sleep Apnea/CPAP/BIPAP Additional Past Medical History / Comment(s): 08/27/15 PT presented to [facility] ER with episode of substernal chest tightness and discomfort which is worse with coughing and deep breathing. He states he has had chills at home and a cough. Pt thinks he is not feeling right in his head. He is admitted with clinical impression of pneumonia, with elevated troponin 1 and CHF. Pt states he has been admitted to [facility] twice in the past month for pneumonia. Other HX : tracheopbronchitis, CELE with device-unable to tolerate CPAP, CERVICAL RADICULOPATHY, DDD, chronic low back pain, rosacia, peripheral edema at times, lower GI bleed with blood in stool, migraines, steroids Sep 2015,currently having nausea with abdominal pain History of Any Multi-Drug Resistant Organisms: None Reported Past Surgical History: Adenoidectomy, Bowel Resection Additional Past Surgical History / Comment(s): REMOVAL OF UVULA. bowel resection for large polyps, colonoscopy with polypectomies, nasal surgery x 2, bronchoscopy with lung bx, pain clinic procedures. Past Anesthesia/Blood Transfusion Reactions: Previous Problems w/ Anesthesia Additional Past Anesthesia/Blood Transfusion Reaction / Comment(s): states "during procedure of checking something on my left lung,I turned blue and I was brought right back out anesthesia and proc was cancelled" Past Psychological History: Anxiety, Bipolar, Depression, Panic Disorder Additional Psychological History / Comment(s): Pt resides alone in an apartment. He uses a cane to ambulate. There are several stairs in his apt He has a nebulizer. Smoking Status: Former smoker Past Alcohol Use History: Occasional Additional Past Alcohol Use History / Comment(s): Pt quit smoking in the 1979. He had been a ppd smoker for about 15 yrs. Past Drug Use History: None Reported - Past Family History Mother Family Medical History: Asthma Father Family Medical History: CVA/TIA General Exam - General Exam Comments Initial Comments: 60 year old male. No acute distress. Limitations: no limitations General appearance: alert, in no apparent distress Head exam: Present: atraumatic, normocephalic, normal inspection Eye exam: Present: normal appearance, PERRL, EOMI. Absent: scleral icterus, conjunctival injection, periorbital swelling ENT exam: Present: normal exam, normal oropharynx, mucous membranes moist Neck exam: Present: normal inspection. Absent: tenderness, meningismus, lymphadenopathy Respiratory exam: Present: normal lung sounds bilaterally, prolonged expiratory. Absent: respiratory distress, wheezes, rales, rhonchi, stridor Cardiovascular Exam: Present: regular rate, normal rhythm, normal heart sounds. Absent: systolic murmur, diastolic murmur, rubs, gallop, clicks GI/Abdominal exam: Present: soft, normal bowel sounds. Absent: distended, tenderness, guarding, rebound, rigid Extremities exam: Present: normal inspection, full ROM, normal capillary refill , pedal edema (bilateral 2+ pitting edema. ). Absent: tenderness, joint swelling, calf tenderness Back exam: Present: normal inspection Neurological exam: Present: alert, oriented X3, CN II-XII intact Psychiatric exam: Present: normal affect, normal mood Skin exam: Present: warm, dry, intact, normal color. Absent: rash Course Vital Signs 10/08/16 10/08/16 10/09/16 22:05 23:17 00:11 Temperature 98.8 F 98 F Pulse Rate 72 66 78 Respiratory 20 16 16 Rate Blood Pressure 126/61 137/65 158/74 O2 Sat by Pulse 92 L 94 L 95 Oximetry Medical Decision Making - Medical Decision Making Patient is a 60-year-old male chief complaint of a fall yesterday evening from approximately 6 steps. Patient reports that he tripped while carrying a laundry basket and fell on his lower back. He reports that he does have chronic back pain and it is only better after a injection of Dilaudid. He states that he was able to ambulate after the injury. Patient reports that he did had no head injury or loss consciousness after the fall. Patient reports he isn't currently under a pain contract with his neurologist. Patient states that he has also noticed increased cough and swelling of both of his legs for approximately 1 day. Patient denies any pain with his legs. He states that he does take a blood pressure medication and has been taking it regularly. He states that he is not currently taking any Lasix. Patient denies any fevers, chills, or other symptoms. Patient arrived with O2 saturation at 92-94 percent. Patient reports this is usually like this, as patient does have COPD. Patient labs and EKG were reviewed and are negative for any acute process. Patient main complaint is lower back pain, patient received 1mg dilaudid, and patient reports that he usually has norco medication to go. Xrays were reviewed and no signs of compression fracture, or other abnormalities. I discussed that I will not violate his pain contract and patient admits to having pain medications at home. He refuses muscle relaxer and toradol as this "does not work". I discussed that patient needds to follow up with PCP with bilateral leg edema, and patient agrees. Patient understands treatment plan and will comply. I discussed this case with Dr. Reynoso. - Lab Data Result diagrams: 10/08/16 22:40 10/08/16 22:40 Lab Results 10/08/16 10/08/16 10/08/16 Range/Units 22:40 22:40 22:40 WBC 5.8 (3.8-10.6) k/uL RBC 4.00 L (4.30-5.90) m/uL Hgb 13.5 (13.0-17.5) gm/dL Hct 42.4 (39.0-53.0) % MCV 106.1 H (80.0-100.0) fL MCH 33.8 (25.0-35.0) pg MCHC 31.9 (31.0-37.0) g/dL RDW 14.5 (11.5-15.5) % Plt Count 163 (150-450) k/uL Neutrophils % 64 % Lymphocytes % 21 % Monocytes % 6 % Eosinophils % 5 % Basophils % 1 % Neutrophils # 3.8 (1.3-7.7) k/uL Lymphocytes # 1.2 (1.0-4.8) k/uL Monocytes # 0.4 (0-1.0) k/uL Eosinophils # 0.3 (0-0.7) k/uL Basophils # 0.0 (0-0.2) k/uL Macrocytosis Moderate PT (9.0-12.0) sec INR (<1.1) APTT (22.0-30.0) sec Sodium 144 (137-145) mmol/L Potassium 4.1 (3.5-5.1) mmol/L Chloride 106 (98-107) mmol/L Carbon Dioxide 26 (22-30) mmol/L Anion Gap 12 mmol/L BUN 23 H (9-20) mg/dL Creatinine 0.90 (0.66-1.25) mg/dL Est GFR (MDRD) Af Amer >60 (>60 ml/min/1.73 sqM) Est GFR (MDRD) Non-Af >60 (>60 ml/min/1.73 sqM) Glucose 101 H (74-99) mg/dL Calcium 8.5 (8.4-10.2) mg/dL Magnesium 2.0 (1.6-2.3) mg/dL Total Bilirubin 0.5 (0.2-1.3) mg/dL AST 56 (17-59) U/L ALT 93 H (21-72) U/L Alkaline Phosphatase 96 (38-126) U/L Total Creatine Kinase 86 (55-170) U/L CK-MB (CK-2) 1.7 (0.0-2.4) ng/mL CK-MB (CK-2) Rel Index 2.0 Troponin I <0.012 (0.000-0.034) ng/mL NT-Pro-B Natriuret Pep pg/mL Total Protein 6.1 L (6.3-8.2) g/dL Albumin 3.8 (3.5-5.0) g/dL 10/08/16 10/08/16 Range/Units 22:40 22:40 WBC (3.8-10.6) k/uL RBC (4.30-5.90) m/uL Hgb (13.0-17.5) gm/dL Hct (39.0-53.0) % MCV (80.0-100.0) fL MCH (25.0-35.0) pg MCHC (31.0-37.0) g/dL RDW (11.5-15.5) % Plt Count (150-450) k/uL Neutrophils % % Lymphocytes % % Monocytes % % Eosinophils % % Basophils % % Neutrophils # (1.3-7.7) k/uL Lymphocytes # (1.0-4.8) k/uL Monocytes # (0-1.0) k/uL Eosinophils # (0-0.7) k/uL Basophils # (0-0.2) k/uL Macrocytosis PT 10.5 (9.0-12.0) sec INR 1.0 (<1.1) APTT 22.4 (22.0-30.0) sec Sodium (137-145) mmol/L Potassium (3.5-5.1) mmol/L Chloride (98-107) mmol/L Carbon Dioxide (22-30) mmol/L Anion Gap mmol/L BUN (9-20) mg/dL Creatinine (0.66-1.25) mg/dL Est GFR (MDRD) Af Amer (>60 ml/min/1.73 sqM) Est GFR (MDRD) Non-Af (>60 ml/min/1.73 sqM) Glucose (74-99) mg/dL Calcium (8.4-10.2) mg/dL Magnesium (1.6-2.3) mg/dL Total Bilirubin (0.2-1.3) mg/dL AST (17-59) U/L ALT (21-72) U/L Alkaline Phosphatase (38-126) U/L Total Creatine Kinase (55-170) U/L CK-MB (CK-2) (0.0-2.4) ng/mL CK-MB (CK-2) Rel Index Troponin I (0.000-0.034) ng/mL NT-Pro-B Natriuret Pep 164 pg/mL Total Protein (6.3-8.2) g/dL Albumin (3.5-5.0) g/dL 10/09/16 00:04 EKG shows normal sinus rhythm. Ventricular rate 65 bpm. NE interval 146 multiple times. QRS nondenominational 96. QT/QTc is 418/434 ms. - Radiology Data Radiology results: report reviewed No focal atelectasis in the right middle lung compared to last exam. Normal heart. Lumbar spine was reviewed and no evidence of any acute abnormality the lumbar spine. No change or fracture. Normal sacrum and coccyx is no fracture. Disposition Clinical Impression: Lower back pain, Fall, Bilateral lower extremity edema Disposition: HOME SELF-CARE Condition: Good Instructions: Fall Prevention for Older Adults (ED), Low Back Strain (ED) Additional Instructions: Patient advised to elevate legs and to follow-up with primary care provider regards to swelling. Patient advised to take at home pain medications. Return the emergency Department if any alarming signs or symptoms occur. Referrals: Michael Nuñez MD [Primary Care Provider] - 1-2 days Time of Disposition: 00:02
[2016-10-09 00:11] VITALS: BP 158/74; PULSE 78
== END 2016-10-09 00:10 | disposition home or self-care (01) ==
LOC: EC 22:03
DX: M54.5 Low back pain (principal); R05 Cough; R60.0 Localized edema; G89.29 Other chronic pain; F32.9 Major depressive disorder, single episode, unspecified; I10 Essential (primary) hypertension; F41.9 Anxiety disorder, unspecified; J44.9 Chronic obstructive pulmonary disease, unspecified; F44.9 Dissociative and conversion disorder, unspecified; J45.909 Unspecified asthma, uncomplicated; Z91.010 Allergy to peanuts; Z87.891 Personal history of nicotine dependence; Z79.899 Other long term (current) drug therapy; W10.9XXA Fall (on) (from) unspecified stairs and steps, initial encounter; Y93.89 Activity, other specified
CPT/HCPCS: 36415; 93005; 83880; 80053; 82550; 82553; 83735; 84484; 85025; 85610; 85730; 71020; 72100; 72220; 99284; 96374; 96361; J1170

== ENCOUNTER 2016-10-16 21:26 | Emergency (ER) | payer MEDICARE, OTHER ==
[2016-10-16 21:29] VITALS: BP 152/73; PULSE 102; RESP 18; TEMP 98
[2016-10-16] MEDS ORDERED: HYDROcodone/APAP 10-325MG 1 EACH TAB PO ONE (21:53)
--- NOTE | 2016-10-16 21:54 | ED ---
Back Pain HPI - General Chief Complaint: Back Pain/Injury Stated Complaint: Back Pain Time Seen by Provider: 10/16/16 21:49 Source: patient, RN notes reviewed Mode of arrival: ambulatory Limitations: no limitations - History of Present Illness Initial Comments: 60-year-old male presents emergency department for chronic pain. Patient is well-known emergency Department and presents today for normal chronic neck and back pain. Patient states there is no injury no increased pain just states his pain medications is not helping in which she takes [place] 7.5 twice a day. Patient states he [place] 10 6 times a day. Patient states that he just nasogastric pain. Denies any bowel bladder incontinence or retention. Denies any chest pain or shortness breath. Denies any extremity injuries. Patient denies any weakness of his upper extremities. Patient offers no other complaints. - Related Data Home Medications Medication Instructions Recorded Confirmed Montelukast [Singulair] 10 mg PO DAILY 03/16/14 10/16/16 amLODIPine [Norvasc] 5 mg PO QAM 07/05/14 10/16/16 ALPRAZolam [Xanax] 1 mg PO TID 09/20/15 10/16/16 Fluticasone/Vilanterol [Breo 1 puff INHALATION RT-DAILY 07/16/16 10/16/16 Ellipta 100-25 Mcg Inhaler] Desvenlafaxine [Pristiq ER] 100 mg PO DAILY 09/23/16 10/16/16 Clindamycin Gel [Clindamycin 1 applic TOPICAL BID 10/08/16 10/16/16 Phosphate] Fluocinolone Acetonide [Synalar] 1 applic TOPICAL DAILY 10/08/16 10/16/16 HYDROcodone/APAP 7.5-325MG [[place] 1 tab PO BID PRN 10/08/16 10/16/16 7.5-325] Hydrocortisone Cream 1 applic TOPICAL BID 10/08/16 10/16/16 [Hydrocortisone 2.5% Cream] Ketoconazole 2% Shampoo [Nizoral] 1 applic TOPICAL Q72H 10/08/16 10/16/16 Triamcinolone 0.1% Cream [Kenalog] 1 applicatio TOPICAL BID 10/08/16 10/16/16 Umeclidinium [place] [Incruse 1 puff INHALATION RT-DAILY 10/08/16 10/16/16 Ellipta] fentaNYL [Duragesic 50MCG/HR] 1 patch TRANSDERM Q72H 10/08/16 10/16/16 Previous Rx's Medication Instructions Recorded Ipratropium-Albuterol Nebulize 3 ml INHALATION RT-Q4H PRN #0 07/19/16 [Duoneb 0.5 mg-3 mg/3 ml Soln] ampul.neb Allergies Allergy/AdvReac Type Severity Reaction Status Date / Time peanut Allergy alg testing Verified 10/16/16 21:29 DUST Allergy alg testing Uncoded 10/16/16 21:29 POLLEN Allergy alg testing Uncoded 10/16/16 21:29 Review of Systems ROS Statement: Those systems with pertinent positive or pertinent negative responses have been documented in the HPI. ROS Other: All systems not noted in ROS Statement are negative. Past Medical History Past Medical History: Atrial Flutter, Asthma, Chest Pain / Angina, COPD, GERD/ Reflux, Hypertension, Osteoarthritis (OA), Pneumonia, Sleep Apnea/CPAP/BIPAP Additional Past Medical History / Comment(s): Chronic neck and back pain History of Any Multi-Drug Resistant Organisms: None Reported Past Surgical History: Adenoidectomy, Bowel Resection Additional Past Surgical History / Comment(s): REMOVAL OF UVULA. bowel resection for large polyps, colonoscopy with polypectomies, nasal surgery x 2, bronchoscopy with lung bx, pain clinic procedures. Past Anesthesia/Blood Transfusion Reactions: Previous Problems w/ Anesthesia Additional Past Anesthesia/Blood Transfusion Reaction / Comment(s): states "during procedure of checking something on my left lung,I turned blue and I was brought right back out anesthesia and proc was cancelled" Past Psychological History: Anxiety, Bipolar, Depression, Panic Disorder Additional Psychological History / Comment(s): Pt resides alone in an apartment. He uses a cane to ambulate. There are several stairs in his apt He has a nebulizer. Smoking Status: Former smoker Past Alcohol Use History: Occasional Additional Past Alcohol Use History / Comment(s): Pt quit smoking in the 1979. He had been a ppd smoker for about 15 yrs. Past Drug Use History: None Reported - Past Family History Mother Family Medical History: Asthma Father Family Medical History: CVA/TIA General Exam Limitations: no limitations General appearance: alert, in no apparent distress Head exam: Present: atraumatic, normocephalic, normal inspection Eye exam: Present: normal appearance, PERRL, EOMI. Absent: scleral icterus, conjunctival injection, periorbital swelling ENT exam: Present: normal exam, normal oropharynx, mucous membranes moist, TM's normal bilaterally, normal external ear exam Neck exam: Present: normal inspection, tenderness (Mild paraspinal), full ROM. Absent: meningismus, lymphadenopathy Respiratory exam: Present: normal lung sounds bilaterally. Absent: respiratory distress, wheezes, rales, rhonchi, stridor Cardiovascular Exam: Present: regular rate, normal rhythm, normal heart sounds. Absent: systolic murmur, diastolic murmur, rubs, gallop, clicks GI/Abdominal exam: Present: soft, normal bowel sounds. Absent: distended, tenderness, guarding, rebound, rigid Back exam: Present: full ROM, tenderness, paraspinal tenderness. Absent: vertebral tenderness Neurological exam: Present: alert, oriented X3, CN II-XII intact Course Vital Signs 10/16/16 21:28 Temperature 98.0 F Pulse Rate 102 H Respiratory 18 Rate Blood Pressure 152/73 O2 Sat by Pulse 94 L Oximetry Medical Decision Making - Medical Decision Making 60-year-old male presented for chronic pain. Patient given [place] 10 any discharge. He was advised that he needs to discuss further pain medication with his pain management it's he has multiple ears visits for same complaint. Disposition Clinical Impression: Chronic neck pain, Chronic back pain Disposition: HOME SELF-CARE Condition: Stable Instructions: Chronic Pain (ED) Additional Instructions: Follow-up with your primary care physician or pain specialist for further pain medication.Please return to the Emergency Department if symptoms worsen or any other concerns. Referrals: Michael Nuñez MD [Primary Care Provider] - 1-2 days Time of Disposition: 21:54
== END 2016-10-16 22:07 | disposition home or self-care (01) ==
LOC: EC 21:26
DX: G89.29 Other chronic pain (principal); M54.9 Dorsalgia, unspecified; M54.2 Cervicalgia; J45.909 Unspecified asthma, uncomplicated; J44.9 Chronic obstructive pulmonary disease, unspecified; I10 Essential (primary) hypertension; F41.0 Panic disorder [episodic paroxysmal anxiety]; F31.9 Bipolar disorder, unspecified; Z87.891 Personal history of nicotine dependence; Z79.51 Long term (current) use of inhaled steroids; Z79.891 Long term (current) use of opiate analgesic; Z79.899 Other long term (current) drug therapy; Z91.010 Allergy to peanuts; Z91.09 Other allergy status, other than to drugs and biological substances; Z98.890 Other specified postprocedural states
CPT/HCPCS: 99282

== ENCOUNTER 2016-10-20 23:14 | Emergency (ER) | payer MEDICARE, OTHER ==
[2016-10-20 23:25] VITALS: BP 146/76; PULSE 94; RESP 20; TEMP 97.8
[2016-10-20] MEDS ORDERED: HYDROcodone/APAP 7.5-325MG 1 EACH TAB PO ONE (23:53)
--- NOTE | 2016-10-20 23:56 | ED ---
Back Pain HPI - General Chief Complaint: Back Pain/Injury Stated Complaint: Back/Neck Pain Time Seen by Provider: 10/20/16 23:31 Source: patient, RN notes reviewed Limitations: no limitations - History of Present Illness Initial Comments: Patient is a 60-year-old male presents to the emergency room for evaluation of acute on chronic back pain. Patient is well-known to the emergency room. Patient has history of chronic neck and low back pain. Patient states that he was laying in his recliner and fell out. Patient states having worsening pain in his neck after the incident. Patient states that he does not have a refill on his fentanyl patch or Mcneil until Wednesday. Patient states she has an appointment with Dr. Price's office next week. Patient states she needs something for pain. Patient denies numbness or tingling in extremities, saddle anesthesia or urinary fecal incontinence. - Related Data Home Medications Medication Instructions Recorded Confirmed Montelukast [Singulair] 10 mg PO DAILY 03/16/14 10/20/16 amLODIPine [Norvasc] 5 mg PO QAM 07/05/14 10/20/16 ALPRAZolam [Xanax] 1 mg PO TID 09/20/15 10/20/16 Fluticasone/Vilanterol [Breo 1 puff INHALATION RT-DAILY 07/16/16 10/20/16 Ellipta 100-25 Mcg Inhaler] Desvenlafaxine [Pristiq ER] 100 mg PO DAILY 09/23/16 10/20/16 Clindamycin Gel [Clindamycin 1 applic TOPICAL BID 10/08/16 10/20/16 Phosphate] Fluocinolone Acetonide [Synalar] 1 applic TOPICAL DAILY 10/08/16 10/20/16 HYDROcodone/APAP 7.5-325MG [[place] 1 tab PO BID PRN 10/08/16 10/20/16 7.5-325] Hydrocortisone Cream 1 applic TOPICAL BID 10/08/16 10/20/16 [Hydrocortisone 2.5% Cream] Ketoconazole 2% Shampoo [Nizoral] 1 applic TOPICAL Q72H 10/08/16 10/20/16 Triamcinolone 0.1% Cream [Kenalog] 1 applicatio TOPICAL BID 10/08/16 10/20/16 Umeclidinium [place] [Incruse 1 puff INHALATION RT-DAILY 10/08/16 10/20/16 Ellipta] fentaNYL [Duragesic 50MCG/HR] 1 patch TRANSDERM Q72H 10/08/16 10/20/16 Previous Rx's Medication Instructions Recorded Ipratropium-Albuterol Nebulize 3 ml INHALATION RT-Q4H PRN #0 07/19/16 [Duoneb 0.5 mg-3 mg/3 ml Soln] ampul.neb Allergies Allergy/AdvReac Type Severity Reaction Status Date / Time peanut Allergy alg testing Verified 10/20/16 23:44 DUST Allergy alg testing Uncoded 10/20/16 23:25 POLLEN Allergy alg testing Uncoded 10/20/16 23:25 Review of Systems ROS Statement: Those systems with pertinent positive or pertinent negative responses have been documented in the HPI. ROS Other: All systems not noted in ROS Statement are negative. Past Medical History Past Medical History: Atrial Flutter, Asthma, Chest Pain / Angina, COPD, GERD/ Reflux, Hypertension, Osteoarthritis (OA), Pneumonia, Sleep Apnea/CPAP/BIPAP Additional Past Medical History / Comment(s): Chronic neck and back pain History of Any Multi-Drug Resistant Organisms: None Reported Past Surgical History: Adenoidectomy, Bowel Resection Additional Past Surgical History / Comment(s): REMOVAL OF UVULA. bowel resection for large polyps, colonoscopy with polypectomies, nasal surgery x 2, bronchoscopy with lung bx, pain clinic procedures. Past Anesthesia/Blood Transfusion Reactions: Previous Problems w/ Anesthesia Additional Past Anesthesia/Blood Transfusion Reaction / Comment(s): states "during procedure of checking something on my left lung,I turned blue and I was brought right back out anesthesia and proc was cancelled" Past Psychological History: Anxiety, Bipolar, Depression, Panic Disorder Additional Psychological History / Comment(s): Pt resides alone in an apartment. He uses a cane to ambulate. There are several stairs in his apt He has a nebulizer. Smoking Status: Former smoker Past Alcohol Use History: Occasional Additional Past Alcohol Use History / Comment(s): Pt quit smoking in the 1979. He had been a ppd smoker for about 15 yrs. Past Drug Use History: None Reported - Past Family History Mother Family Medical History: Asthma Father Family Medical History: CVA/TIA General Exam - General Exam Comments Initial Comments: Sitting in exam room, no acute distress. Limitations: no limitations General appearance: alert, in no apparent distress Head exam: Present: atraumatic, normocephalic, normal inspection Eye exam: Present: normal appearance Pupils: Absent: normal accommodation Neck exam: Present: normal inspection, tenderness, full ROM Respiratory exam: Present: normal lung sounds bilaterally. Absent: respiratory distress Cardiovascular Exam: Present: regular rate, normal rhythm, normal heart sounds Extremities exam: Present: normal inspection Back exam: Present: normal inspection, vertebral tenderness Neurological exam: Present: alert, oriented X3, CN II-XII intact, normal gait Psychiatric exam: Present: normal affect, normal mood Skin exam: Present: warm, dry, intact, normal color. Absent: rash Course Vital Signs 10/20/16 23:22 Temperature 97.8 F Pulse Rate 94 Respiratory 20 Rate Blood Pressure 146/76 O2 Sat by Pulse 96 Oximetry Medical Decision Making - Medical Decision Making Patient is a 60-year-old male presents emergency room for evaluation of chronic neck and back pain. Patient is well-known to the emergency room. Patient states he fell off his recliner today with worsening neck pain. Cervical spine x-ray shows no acute findings. Patient given [place] while she was here. 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 Case discussed with Dr. Gross. - Radiology Data Radiology results: report reviewed, image reviewed Disposition Clinical Impression: Chronic neck pain, Chronic back pain Disposition: HOME SELF-CARE Condition: Good Instructions: Chronic Back Pain (ED) Additional Instructions: Please follow up with primary care provider or sandblaster paint sprayer in 1- 2 days. If any new symptom arises or symptoms worsen, return to ER as soon as possible. Referrals: Michael Nuñez MD [Primary Care Provider] - 1-2 days Time of Disposition: 00:39
--- NOTE | 2016-10-21 00:36 | XR ---
EXAM: XR Cervical Spine, 4 or 5 Views. CLINICAL HISTORY: Reason: Pain TECHNIQUE: Frontal, lateral and oblique views of the cervical spine. COMPARISON: 08/30/16 radiographs. FINDINGS: Limitations: Lateral visualization of the cervicothoracic junction is slightly limited by overlapping osseous structures, despite additional swimmer's view. Vertebrae: Slightly more accentuated reversal of the normal cervical lordosis is noted. Alignment is stable including minimal anterolisthesis at C2-3 and C3-4. No acute fracture. Disc spaces: There is again multilevel degenerative change, with disc space narrowing and osteophyte formation from C4-5 through C6-7. There is again multilevel facet degenerative change, with multilevel foraminal narrowing that is greatest on the right at C6-7 and on the left perhaps at C3-4, unchanged. Soft tissues: Small amounts of arterial vascular calcification are present. Prevertebral soft tissues are within normal limits. IMPRESSION: 1. Other than slightly greater degree of reversed cervical lordosis, no significant interval change is seen including no acute fracture, compression deformity or change in alignment. 2. Clinical clearance of the cervical spine is still recommended. 3. Multilevel cervical spondylosis again noted.
== END 2016-10-21 00:48 | disposition home or self-care (01) ==
LOC: EC 23:14
DX: G89.29 Other chronic pain (principal); M54.5 Low back pain; M54.2 Cervicalgia; W07.XXXA Fall from chair, initial encounter; I10 Essential (primary) hypertension; Z79.51 Long term (current) use of inhaled steroids; M54.9 Dorsalgia, unspecified; F41.9 Anxiety disorder, unspecified; F32.9 Major depressive disorder, single episode, unspecified; J44.9 Chronic obstructive pulmonary disease, unspecified; Z79.899 Other long term (current) drug therapy; Z79.52 Long term (current) use of systemic steroids; Z79.891 Long term (current) use of opiate analgesic; Z91.010 Allergy to peanuts
CPT/HCPCS: 72050; 99283

== ENCOUNTER 2016-11-06 01:46 | Inpatient (IN) | payer MEDICARE, OTHER ==
[2016-11-06] MEDS ORDERED: SODIUM CHLORIDE 0.9% 1,000 ML IV STA (01:50)
[2016-11-06] MEDS ORDERED: IPRATROPIUM-ALBUTEROL 3 ML NEB INHALATION STA (01:50)
--- NOTE | 2016-11-06 01:50 | ED ---
General Adult HPI - General Stated complaint: SOB Time Seen by Provider: 11/06/16 01:47 Source: RN notes reviewed, old records reviewed - History of Present Illness Initial comments: This is a 60-year-old male well-known to the emergency room for significant shortness of breath cough and congestion. Patient has strong history of COPD. Takes all medications at home but patient unable take medications at home secondary loss of power, patient's progressively worsened with his breathing throughout the night. He denies any fevers, no significant chest pain PSF pain with coughing. No other abdominal pain recently, no sick contacts are known. Patient does admit to taking medications as prescribed - Related Data Home Medications Medication Instructions Recorded Confirmed Montelukast [Singulair] 10 mg PO DAILY 03/16/14 10/20/16 amLODIPine [Norvasc] 5 mg PO QAM 07/05/14 10/20/16 ALPRAZolam [Xanax] 1 mg PO TID 09/20/15 10/20/16 Fluticasone/Vilanterol [Breo 1 puff INHALATION RT-DAILY 07/16/16 10/20/16 Ellipta 100-25 Mcg Inhaler] Desvenlafaxine [Pristiq ER] 100 mg PO DAILY 09/23/16 10/20/16 Clindamycin Gel [Clindamycin 1 applic TOPICAL BID 10/08/16 10/20/16 Phosphate] Fluocinolone Acetonide [Synalar] 1 applic TOPICAL DAILY 10/08/16 10/20/16 HYDROcodone/APAP 7.5-325MG [[place] 1 tab PO BID PRN 10/08/16 10/20/16 7.5-325] Hydrocortisone Cream 1 applic TOPICAL BID 10/08/16 10/20/16 [Hydrocortisone 2.5% Cream] Ketoconazole 2% Shampoo [Nizoral] 1 applic TOPICAL Q72H 10/08/16 10/20/16 Triamcinolone 0.1% Cream [Kenalog] 1 applicatio TOPICAL BID 10/08/16 10/20/16 Umeclidinium [place] [Incruse 1 puff INHALATION RT-DAILY 10/08/16 10/20/16 Ellipta] fentaNYL [Duragesic 50MCG/HR] 1 patch TRANSDERM Q72H 10/08/16 10/20/16 Previous Rx's Medication Instructions Recorded Ipratropium-Albuterol Nebulize 3 ml INHALATION RT-Q4H PRN #0 07/19/16 [Duoneb 0.5 mg-3 mg/3 ml Soln] ampul.neb Allergies Allergy/AdvReac Type Severity Reaction Status Date / Time peanut Allergy alg testing Verified 10/20/16 23:44 DUST Allergy alg testing Uncoded 10/20/16 23:25 POLLEN Allergy alg testing Uncoded 10/20/16 23:25 Review of Systems ROS Statement: Those systems with pertinent positive or pertinent negative responses have been documented in the HPI. ROS Other: All systems not noted in ROS Statement are negative. Past Medical History Past Medical History: Atrial Flutter, Asthma, Chest Pain / Angina, COPD, GERD/ Reflux, Hypertension, Osteoarthritis (OA), Pneumonia, Sleep Apnea/CPAP/BIPAP Additional Past Medical History / Comment(s): Chronic neck and back pain History of Any Multi-Drug Resistant Organisms: None Reported Past Surgical History: Adenoidectomy, Bowel Resection Additional Past Surgical History / Comment(s): REMOVAL OF UVULA. bowel resection for large polyps, colonoscopy with polypectomies, nasal surgery x 2, bronchoscopy with lung bx, pain clinic procedures. Past Anesthesia/Blood Transfusion Reactions: Previous Problems w/ Anesthesia Additional Past Anesthesia/Blood Transfusion Reaction / Comment(s): states "during procedure of checking something on my left lung,I turned blue and I was brought right back out anesthesia and proc was cancelled" Past Psychological History: Anxiety, Bipolar, Depression, Panic Disorder Additional Psychological History / Comment(s): Pt resides alone in an apartment. He uses a cane to ambulate. There are several stairs in his apt He has a nebulizer. Smoking Status: Former smoker Past Alcohol Use History: Occasional Additional Past Alcohol Use History / Comment(s): Pt quit smoking in the 1979. He had been a ppd smoker for about 15 yrs. Past Drug Use History: None Reported - Past Family History Mother Family Medical History: Asthma Father Family Medical History: CVA/TIA General Exam General appearance: alert, in no apparent distress, anxious Head exam: Present: atraumatic, normocephalic, normal inspection Eye exam: Present: normal appearance, PERRL, EOMI. Absent: scleral icterus, conjunctival injection, periorbital swelling ENT exam: Present: normal exam, mucous membranes moist Neck exam: Present: normal inspection. Absent: tenderness, meningismus, lymphadenopathy Respiratory exam: Present: normal lung sounds bilaterally, wheezes, decreased breath sounds, prolonged expiratory. Absent: respiratory distress, rales, rhonchi, stridor Cardiovascular Exam: Present: regular rate, normal rhythm, normal heart sounds. Absent: systolic murmur, diastolic murmur, rubs, gallop, clicks GI/Abdominal exam: Present: soft, normal bowel sounds. Absent: distended, tenderness, guarding, rebound, rigid Extremities exam: Present: normal inspection, full ROM, normal capillary refill. Absent: tenderness, pedal edema, joint swelling, calf tenderness Back exam: Present: normal inspection Neurological exam: Present: alert, oriented X3, CN II-XII intact Psychiatric exam: Present: normal affect, normal mood Skin exam: Present: warm, dry, intact, normal color. Absent: rash Course Vital Signs 11/06/16 11/06/16 11/06/16 01:47 02:07 02:20 Temperature 97.9 F Pulse Rate 90 90 94 Respiratory 20 Rate Blood Pressure 146/78 O2 Sat by Pulse 91 L Oximetry - Reevaluation(s) Reevaluation #1: 11/06/16 02:52 Patient still pain and shortness of breath even after prolonged beachchair EKG Findings - EKG Comments: EKG Findings:: EKG shows normal sinus rhythm rate of 85, AK 140, QRS 96, QTc 459 Medical Decision Making - Medical Decision Making 60-year-old year for evaluation of shortness of breath, significant COPD history of COPD hypoxia on room air. Patient did lose power and unable to do. She was at home, out of for a stress chest pain. Patient be admitted for symptom control and continue breathing treatments and steroids - Lab Data Result diagrams: 11/06/16 02:00 Lab Results 11/06/16 Range/Units 02:00 Sodium 143 (137-145) mmol/L Potassium 3.5 (3.5-5.1) mmol/L Chloride 100 (98-107) mmol/L Carbon Dioxide 26 (22-30) mmol/L Anion Gap 17 mmol/L BUN 20 (9-20) mg/dL Creatinine 1.00 (0.66-1.25) mg/dL Est GFR (MDRD) Af Amer >60 (>60 ml/min/1.73 sqM) Est GFR (MDRD) Non-Af >60 (>60 ml/min/1.73 sqM) Glucose 153 H (74-99) mg/dL Calcium 9.1 (8.4-10.2) mg/dL Phosphorus 3.4 (2.5-4.5) mg/dL Magnesium 2.1 (1.6-2.3) mg/dL Total Bilirubin 0.6 (0.2-1.3) mg/dL AST 56 (17-59) U/L ALT 108 H (21-72) U/L Alkaline Phosphatase 102 (38-126) U/L Total Protein 6.8 (6.3-8.2) g/dL Albumin 4.4 (3.5-5.0) g/dL - Radiology Data Radiology results: report reviewed (Chest x-rays improved a prior), image reviewed Critical Care Time Critical Care Time: Yes Total Critical Care Time: 31 Disposition Clinical Impression: COPD exacerbation, COPD (chronic obstructive pulmonary disease) with acute bronchitis Disposition: ADMITTED IP TO THIS HOSP Condition: Undetermined Referrals: Michael Nuñez MD [Primary Care Provider] - 1-2 days
[2016-11-06 02:22] LABS: Basophils # (A) 0.1 k/uL (0-0.2); Basophils % (A) 1 %; CH 35.3; CHCM 34.3; Eosinophils # (A) 0.4 k/uL (0-0.7); Eosinophils % (A) 5 %; HDW 2.87; Luc # (Auto) 0.13; Luc % (Auto) 2; Lymphocytes # (A) 1.8 k/uL (1.0-4.8); Lymphocytes % (A) 25 %; MCH 35.2 pg (25.0-35.0); MCV 103.6 fL (80.0-100.0); Macrocytosis Slight; Mean Platelet Volume 6.9; Monocytes # (A) 0.4 k/uL (0-1.0); Monocytes % (A) 6 %; Neutrophils # (A) 4.3 k/uL (1.3-7.7); Neutrophils % (A) 61 %; RBC 4.82 m/uL (4.30-5.90); RDW 13.7 % (11.5-15.5); WBC 7.1 k/uL (3.8-10.6)
[2016-11-06 02:32] LABS: Partial Thromboplastin Time 22.3 sec (22.0-30.0); Prothrombin Time 10.2 sec (9.0-12.0)
[2016-11-06] MEDS ORDERED: MORPHINE SULFATE 4 MG/ML SYRINGE IVP PRN (02:32)
[2016-11-06] MEDS ORDERED: KETOROLAC 30 MG/ML 1 ML VIAL IVP STA (02:32)
[2016-11-06] MEDS ORDERED: MORPHINE SULFATE 4 MG/ML SYRINGE IVP STA (02:32)
[2016-11-06] MEDS ORDERED: methylPREDNISolone SOD SUCCI 125 MG/2 ML VIAL IV STA (02:32)
[2016-11-06 02:36] LABS: ALT 108 U/L (21-72); AST 56 U/L (17-59); Alkaline Phosphatase 102 U/L (38-126); Anion Gap 17 mmol/L; Blood Urea Nitrogen 20 mg/dL (9-20); Calcium 9.1 mg/dL (8.4-10.2); Carbon Dioxide 26 mmol/L (22-30); Chloride 100 mmol/L (98-107); Glucose 153 mg/dL (74-99); Magnesium 2.1 mg/dL (1.6-2.3); Non-African American GFR(MDRD) >60 (>60 ml/min/1.73 sqM); Phosphorous 3.4 mg/dL (2.5-4.5); Potassium 3.5 mmol/L (3.5-5.1); Sodium 143 mmol/L (137-145); Total Bilirubin 0.6 mg/dL (0.2-1.3); Total Protein 6.8 g/dL (6.3-8.2)
[2016-11-06 02:44] LABS: Creatine Kinase 43 U/L (55-170)
--- NOTE | 2016-11-06 02:46 | XR ---
ADDENDUM - Added by Mana Collado M.D. on 11/06/2016 2:46 AM (-07:00) PROCEDURE: FILM CXR 2 VIEWS HISTORY: 60-year-old male with weakness. COMPARISON: Chest radiograph 10/08/2016 TECHNIQUE: Frontal and lateral views of the chest were obtained. FINDINGS: Mildly enlarged cardiac silhouette. Mediastinal silhouette is within normal limits. Improved aeration in the right lung compared to prior. No evidence of consolidation, pleural effusion or pneumothorax. Bones are similar to prior. IMPRESSION: Mildly enlarged cardiac silhouette. Improved aeration in the right lung compared to prior. PROCEDURE: FILM CXR 2 VIEWS HISTORY: 60-year-old male with weakness. COMPARISON: Chest radiograph 10/08/2016 TECHNIQUE: Frontal and lateral views of the chest were obtained. FINDINGS: Cardiomediastinal silhouette is within normal limits. Improved aeration in the right lung compared to prior. No evidence of consolidation, pleural effusion or pneumothorax. Bones are similar to prior. IMPRESSION: Improved aeration in the right lung compared to prior. [employer] 11/06/16 02:51 Verify Receipt Verified receipt with clerk FUNES for Dr MICHEL @ [phone]
[2016-11-06] MEDS ORDERED: HYDROmorphone 2 MG/ML 1 ML SYRINGE IVP STA (02:53)
[2016-11-06 02:56] LABS: Troponin I <0.012 ng/mL (0.000-0.034)
[2016-11-06 03:58] VITALS: BMI 33.0
[2016-11-06] MEDS: SODIUM CHLORIDE 0.9% 1,000 ML IV SCH ×2 (04:18→12:30)
[2016-11-06] MEDS: IPRATROPIUM-ALBUTEROL 3 ML NEB INHALATION SCH ×4 (07:10→19:28)
[2016-11-06] MEDS: HYDROmorphone 1 MG/ML 1 ML SYRINGE IVP PRN ×3 (08:52→21:28)
[2016-11-06] MEDS: methylPREDNISolone SOD SUCCI 125 MG/2 ML VIAL IV SCH ×4 (08:53→23:59)
[2016-11-06] MEDS: AZITHROMYCIN 500 MG TAB PO SCH (08:53)
[2016-11-06] MEDS: ENOXAPARIN 40 MG/0.4 ML SYRINGE SQ SCH (08:54)
[2016-11-06] MEDS: HYDROcodone/APAP 10-325MG 1 EACH TAB PO PRN ×3 (12:30→23:58)
[2016-11-06] MEDS ORDERED: IPRATROPIUM-ALBUTEROL 3 ML NEB INHALATION PRN (13:01)
[2016-11-06] MEDS: amLODIPine 5 MG TAB PO SCH (15:17)
[2016-11-06] MEDS: MONTELUKAST 10 MG TAB PO SCH (15:17)
[2016-11-06] MEDS: DESVENLAFAXINE SUCCINATE 50 MG TAB.ER.24H PO SCH (15:19)
--- NOTE | 2016-11-06 17:20 | P.HPIM ---
History of Present Illness H&P Date: 11/06/16 Chief Complaint: SOB This is a 60-year-old male well-known to me. Patient has strong history of COPD. Takes all medications at home but patient unable take medications at home secondary loss of power, patient's progressively worsened with his breathing throughout the night. He denies any fevers, no significant chest pain PSF pain with coughing. No other abdominal pain recently, no sick contacts are known. Patient does admit to taking medications as prescribed. Review of Systems All systems: negative Past Medical History Past Medical History: Atrial Flutter, Asthma, Chest Pain / Angina, COPD, GERD/ Reflux, Hypertension, Osteoarthritis (OA), Pneumonia, Sleep Apnea/CPAP/BIPAP Additional Past Medical History / Comment(s): Chronic neck and back pain History of Any Multi-Drug Resistant Organisms: None Reported Past Surgical History: Adenoidectomy, Bowel Resection Additional Past Surgical History / Comment(s): REMOVAL OF UVULA. bowel resection for large polyps, colonoscopy with polypectomies, nasal surgery x 2, bronchoscopy with lung bx, pain clinic procedures. Past Anesthesia/Blood Transfusion Reactions: Previous Problems w/ Anesthesia Additional Past Anesthesia/Blood Transfusion Reaction / Comment(s): states "during procedure of checking something on my left lung,I turned blue and I was brought right back out anesthesia and proc was cancelled" Past Psychological History: Anxiety, Bipolar, Depression, Panic Disorder Additional Psychological History / Comment(s): Pt resides alone in an apartment. He uses a cane to ambulate. There are several stairs in his apt He has a nebulizer. Smoking Status: Former smoker Past Alcohol Use History: Occasional Additional Past Alcohol Use History / Comment(s): Pt quit smoking in the 1979. He had been a ppd smoker for about 15 yrs. Past Drug Use History: None Reported - Past Family History Mother Family Medical History: Asthma Father Family Medical History: CVA/TIA Medications and Allergies Home Medications Medication Instructions Recorded Confirmed Type Montelukast [Singulair] 10 mg PO DAILY 03/16/14 11/06/16 History amLODIPine [Norvasc] 5 mg PO QAM 07/05/14 11/06/16 History ALPRAZolam [Xanax] 1 mg PO TID 09/20/15 11/06/16 History Fluticasone/Vilanterol [Breo 1 puff INHALATION RT-DAILY 12/15/16 04/07/17 History Ellipta 100-25 Mcg Inhaler] Desvenlafaxine [Pristiq ER] 100 mg PO DAILY 09/23/16 11/06/16 History Clindamycin Gel [Clindamycin 1 applic TOPICAL BID 10/08/16 11/06/16 History Phosphate] Fluocinolone Acetonide [Synalar] 1 applic TOPICAL DAILY 10/08/16 11/06/16 History Hydrocortisone Cream 1 applic TOPICAL BID 10/08/16 11/06/16 History [Hydrocortisone 2.5% Cream] Ketoconazole 2% Shampoo [Nizoral] 1 applic TOPICAL DAILY 10/08/16 11/06/16 History Triamcinolone 0.1% Cream [Kenalog] 1 applicatio TOPICAL BID 10/08/16 11/06/16 History Umeclidinium [place] [Incruse 1 puff INHALATION RT-DAILY 10/08/16 11/06/16 History Ellipta] Hydrocodone/Acetaminophen [[place] 1 tab PO TID PRN 11/06/16 11/06/16 History 10-325] Allergies Allergy/AdvReac Type Severity Reaction Status Date / Time peanut Allergy alg testing Verified 11/06/16 08:37 DUST Allergy alg testing Uncoded 10/20/16 23:25 POLLEN Allergy alg testing Uncoded 10/20/16 23:25 Physical Exam Vitals: Vital Signs Temp Pulse Pulse Resp BP BP Pulse Ox 11/06/16 16:10 88 11/06/16 15:59 86 11/06/16 15:00 97.7 F 76 17 130/67 95 11/06/16 11:12 94 11/06/16 11:02 92 11/06/16 07:20 90 11/06/16 07:10 88 11/06/16 07:00 97.9 F 74 16 131/75 95 11/06/16 03:47 97.6 F 87 16 146/84 96 11/06/16 03:19 98.3 F 88 18 132/79 94 L 11/06/16 03:10 97.6 F 87 96 H 146/84 96 Intake and Output 11/06/16 11/06/16 11/06/16 06:59 14:59 22:59 Intake Total 300 Balance 300 Intake: Intake, IV Titration 300 Amount Sodium Chloride 0.9% 1, 300 000 ml @ 100 mls/hr IV . Q10H [facility] Rx#:[id number] Other: Voiding Method Urinal Urinal Urinal # Voids 2 Weight 104.326 kg - EENT Eyes: EOMI, PERRLA ENT: normal oropharynx - Neck Neck: no lymphadenopathy, no thyromegaly Thyroid: bilateral: normal size - Respiratory Respiratory: bilateral: CTA - Cardiovascular Rhythm: regular Heart sounds: normal: S1, S2 - Gastrointestinal General gastrointestinal: no hepatomegaly, no splenomegaly Results CBC & Chem 7: 11/06/16 02:00 11/06/16 02:00 Chest x-ray: report reviewed Thrombosis Risk Factor Assmnt - DVT/VTE Prophylaxis DVT/VTE Prophylaxis: Mechanical Prophylaxis ordered - Choose All That Apply Any of the Below Risk Factors Present?: Yes Each Factor Represents 1 point: Age 41-60 years Thrombosis Risk Factor Assessment Total Risk Factor Score: 1 Thrombosis Risk Factor Assessment Level: Low Risk Assessment and Plan (1) COPD (chronic obstructive pulmonary disease) with acute bronchitis Status: Acute (2) Abdominal pain Status: Acute (3) Chronic back pain Status: Acute (4) Failure of outpatient treatment Status: Acute Plan: patient will continue Ada for pain, updrafts,solumedrol, zithromax, symbicort, spiriva for copd, xanax and Prisitq for anxiety/ depression lovenox for dvt prophylaxis norvasc for BP I will reevaluate him in the next 24 hrs I will consult Dr Trammell for Pain Mgmt as he is not happy with Dr Price's practice
[2016-11-06] MEDS ORDERED: NON-FORMULARY DRUG (Clindamycin Gel 1 APPLIC) TOPICAL SCH (21:00)
[2016-11-06] MEDS: TRIAMCINOLONE 0.1% CREAM 80 GM TUBE TOPICAL SCH (21:34)
[2016-11-06] MEDS: ALPRAZolam 0.5 MG TAB PO PRN (22:42)
[2016-11-07] MEDS: HYDROmorphone 1 MG/ML 1 ML SYRINGE IVP PRN ×3 (03:33→18:33)
[2016-11-07] MEDS: SODIUM CHLORIDE 0.9% 1,000 ML IV SCH ×3 (03:36→21:27)
[2016-11-07] MEDS: methylPREDNISolone SOD SUCCI 125 MG/2 ML VIAL IV SCH ×2 (05:42→14:01)
[2016-11-07] MEDS: IPRATROPIUM-ALBUTEROL 3 ML NEB INHALATION SCH ×4 (06:22→21:37)
--- NOTE | 2016-11-07 07:41 | P.CONS ---
History of Present Illness - Chief Complaint Chronic neck and back pain - History of Present Illness I had the opportunity to see patient for inpatient physiatric consultation with regard to neck and back pain. He reports that he is appointment to see me in my office December 16 for same. Patient has long-standing history of neck and back pain is kind of 1 back pain mostly on the left but does go to the right side. Doesn't really radiate into the arms. Had previously been regimen of [employer] 10 6 per day. Currently treating with Dr. Price. Patient actually admitted for COPD exacerbation. Chest x-ray noted. Previous functional history, as elicited from patient: 60-year-old left-handed white male who lives in a first-floor apartment, 8 steps up, alone. He is single. History smoking remote past. Doesn't smoke currently. Perhaps a weekly drink. Denies recreational drugs. Is on disability secondary to neck back pain as well as COPD. Describes independent with cooking, laundry, driving , standing shower. Family history father of stroke in mother of asthma. Review of Systems Review of systems: ENT: Denies sneezes or discharge. Eyes: Denies discharge or photophobia. Cardiac: Denies chest pain or palpitation. Pulmonary: Mild to moderate shortness of breath. Gastrointestinal: Denies nausea, emesis, constipation, diarrhea. Genitourinary: Denies discharge or frequency. Musculoskeletal: Chronic neck and back pain it is diffuse and white one big pain. Neurologic: Denies motor or sensory change. Endocrine: Denies shakes or sweats. Oncology: Denies cancers. Dermatologic: Denies rash, itching, pruritus. ALLERGY/immunology: Denies sneezes, rashes. Past Medical History Past Medical History: Atrial Flutter, Asthma, Chest Pain / Angina, COPD, GERD/ Reflux, Hypertension, Osteoarthritis (OA), Pneumonia, Sleep Apnea/CPAP/BIPAP Additional Past Medical History / Comment(s): Chronic neck and back pain History of Any Multi-Drug Resistant Organisms: None Reported Past Surgical History: Adenoidectomy, Bowel Resection Additional Past Surgical History / Comment(s): REMOVAL OF UVULA. bowel resection for large polyps, colonoscopy with polypectomies, nasal surgery x 2, bronchoscopy with lung bx, pain clinic procedures. Past Anesthesia/Blood Transfusion Reactions: Previous Problems w/ Anesthesia Additional Past Anesthesia/Blood Transfusion Reaction / Comm: states "during procedure of checking something on my left lung,I turned blue and I was brought right back out anesthesia and proc was cancelled" Past Psychological History: Anxiety, Bipolar, Depression, Panic Disorder Additional Psychological History / Comment(s): Pt resides alone in an apartment. He uses a cane to ambulate. There are several stairs in his apt He has a nebulizer. Smoking Status: Former smoker Past Alcohol Use History: Occasional Additional Past Alcohol Use History / Comment(s): Pt quit smoking in the 1979. He had been a ppd smoker for about 15 yrs. Past Drug Use History: None Reported - Past Family History Mother Family Medical History: Asthma Father Family Medical History: CVA/TIA Medications and Allergies Home Medications Medication Instructions Recorded Confirmed Type Montelukast [Singulair] 10 mg PO DAILY 03/16/14 11/06/16 History amLODIPine [Norvasc] 5 mg PO QAM 07/05/14 11/06/16 History ALPRAZolam [Xanax] 1 mg PO TID 09/20/15 11/06/16 History Fluticasone/Vilanterol [Breo 1 puff INHALATION RT-DAILY 07/16/16 11/06/16 History Ellipta 100-25 Mcg Inhaler] Desvenlafaxine [Pristiq ER] 100 mg PO DAILY 09/23/16 11/06/16 History Clindamycin Gel [Clindamycin 1 applic TOPICAL BID 10/08/16 11/06/16 History Phosphate] Fluocinolone Acetonide [Synalar] 1 applic TOPICAL DAILY 10/08/16 11/06/16 History Hydrocortisone Cream 1 applic TOPICAL BID 10/08/16 11/06/16 History [Hydrocortisone 2.5% Cream] Ketoconazole 2% Shampoo [Nizoral] 1 applic TOPICAL DAILY 10/08/16 11/06/16 History Triamcinolone 0.1% Cream [Kenalog] 1 applicatio TOPICAL BID 10/08/16 11/06/16 History Umeclidinium [place] [Incruse 1 puff INHALATION RT-DAILY 10/08/16 11/06/16 History Ellipta] Hydrocodone/Acetaminophen [[employer] 1 tab PO TID PRN 11/06/16 11/06/16 History 10-325] Allergies Allergy/AdvReac Type Severity Reaction Status Date / Time peanut Allergy alg testing Verified 11/06/16 08:37 DUST Allergy alg testing Uncoded 10/20/16 23:25 POLLEN Allergy alg testing Uncoded 10/20/16 23:25 Physical Exam Vitals: Vital Signs Temp Pulse Pulse Resp BP Pulse Ox 11/07/16 06:31 76 11/07/16 06:24 80 11/06/16 22:07 98.7 F 88 16 147/70 94 L 11/06/16 19:39 88 11/06/16 19:29 88 11/06/16 16:10 88 11/06/16 15:59 86 11/06/16 15:00 97.7 F 76 17 130/67 95 11/06/16 11:12 94 11/06/16 11:02 92 Intake and Output 11/06/16 11/07/16 11/07/16 22:59 06:59 14:59 Intake Total 500 800 Balance 500 800 Intake: Intake, IV Titration 800 Amount Sodium Chloride 0.9% 1, 800 000 ml @ 100 mls/hr IV . Q10H [facility] Rx#:[id number] Oral 500 Other: Voiding Method Urinal Urinal # Voids 1 Skin: Good color, texture, turgor. General: Overweight to obese and short of breath appearance. Head: Normocephalic, atraumatic. Eyes: Symmetric. Pupils equal round. Ears: Symmetric. Hearing within normal limits. Mouth: Clear. Neck: Supple. Carotid without bruit. Cardiac: Regular rate and rhythm. Lungs: Clear anteriorly and posteriorly but with some shortness of breath. Using oxygen. Abdomen: Soft active nontender overweight. Extremities: Normal tone. Neurological: Mental status: Alert, cooperative, pleasant. Cranial nerves: Symmetric facial tone and trapezius. Motor: Normal strength and isolation all 4 limbs. Sensation: Intact throughout. DTRs: Symmetric and equal throughout. Mobility: Sits and stands without assistance or verbal cueing or loss of balance. Reports a bathroom privileges. Results CBC & Chem 7: 11/06/16 02:00 11/06/16 02:00 Assessment and Plan (1) COPD exacerbation Status: Acute Plan: Impression: 1. Chronic pain syndrome with neck and back pain. 2. COPD exacerbation with asthma. 3. Osteoarthritis. 4. Hypertension. 5. Atrial flutter. 6. Reflux. 7. History of angina and chest pain. Comments and plan: At this time we will discuss his pain medication regimen. He was on Dilaudid 2 mg injection in the ER and liked it better than the current 1 mg. He is currently on [employer] 10 3 times a day. I discussed with him that he can suggest 1 change. He is elected [employer] 10 mg every 6. Note that this could be his discharge prescription and this is most likely the regimen. We'll keep him on as an outpatient when I assume pain management, December 16.
[2016-11-07] MEDS: HYDROcodone/APAP 10-325MG 1 EACH TAB PO PRN ×3 (08:05→20:43)
[2016-11-07] MEDS: AZITHROMYCIN 500 MG TAB PO SCH (08:07)
[2016-11-07] MEDS: DESVENLAFAXINE SUCCINATE 50 MG TAB.ER.24H PO SCH (08:07)
[2016-11-07] MEDS: HYDROCORTISONE 1% CREAM 30 GM TUBE TOPICAL SCH (08:07)
[2016-11-07] MEDS: amLODIPine 5 MG TAB PO SCH (08:07)
[2016-11-07] MEDS: ENOXAPARIN 40 MG/0.4 ML SYRINGE SQ SCH (08:07)
[2016-11-07] MEDS: TRIAMCINOLONE 0.1% CREAM 80 GM TUBE TOPICAL SCH ×2 (08:08→20:44)
[2016-11-07] MEDS: MONTELUKAST 10 MG TAB PO SCH (08:08)
[2016-11-07] MEDS: SYMBICORT 80-4.5 MCG INHALER INHALATION SCH ×2 (08:24→21:37)
[2016-11-07 08:28] LABS: Basophils % (A) 0 %; CH 35.4; CHCM 33.4; Eosinophils % (A) 0 %; HCT 47.9 % (39.0-53.0); HGB 15.5 gm/dL (13.0-17.5); Luc # (Auto) 0.03; Luc % (Auto) 0; Lymphocytes # (A) 0.6 k/uL (1.0-4.8); Lymphocytes % (A) 6 %; MCH 34.3 pg (25.0-35.0); MCHC 32.2 g/dL (31.0-37.0); MCV 106.5 fL (80.0-100.0); Macrocytosis Moderate; Mean Platelet Volume 6.9; Monocytes # (A) 0.3 k/uL (0-1.0); Monocytes % (A) 3 %; Neutrophils # (A) 9.7 k/uL (1.3-7.7); Neutrophils % (A) 91 %; RDW 13.8 % (11.5-15.5); WBC 10.7 k/uL (3.8-10.6); WBC (Perox) 10.86
[2016-11-07 08:47] LABS: ALT 72 U/L (21-72); AST 25 U/L (17-59); Alkaline Phosphatase 103 U/L (38-126); Anion Gap 12 mmol/L; Blood Urea Nitrogen 19 mg/dL (9-20); Calcium 9.1 mg/dL (8.4-10.2); Carbon Dioxide 24 mmol/L (22-30); Chloride 104 mmol/L (98-107); Glucose 170 mg/dL (74-99); Non-African American GFR(MDRD) >60 (>60 ml/min/1.73 sqM); Sodium 140 mmol/L (137-145); Total Bilirubin 0.5 mg/dL (0.2-1.3); Total Protein 6.5 g/dL (6.3-8.2)
--- NOTE | 2016-11-07 12:19 | P.PN ---
Subjective This is a 60-year-old male well-known to me. Patient has strong history of COPD. Takes all medications at home but patient unable take medications at home secondary loss of power, patient's progressively worsened with his breathing throughout the night. He denies any fevers, no significant chest pain , some coughing. No other abdominal pain recently, no sick contacts are known. Patient does admit to taking medications as prescribed. He is resting comfortably. Dr. Trammell had seen him regarding his chronic low back pain and neck pain. He remains on IV Solu-Medrol, azithromycin Spiriva, Singulair, Symbicort, DuoNeb updrafts for COPD exacerbation. He remains on oxygen. Overall, he is improved today Objective - Vital Signs Vital signs: Vital Signs Temp 97.4 F L 11/07/16 07:00 Pulse 89 11/07/16 07:00 Resp 20 11/07/16 08:00 BP 176/84 11/07/16 07:00 Pulse Ox 95 11/07/16 07:00 Intake & Output 11/06/16 11/07/16 11/07/16 18:59 06:59 18:59 Intake Total 1300 480 Balance 1300 480 Intake: Intake, IV Titration 800 Amount Sodium Chloride 0.9% 1, 800 000 ml @ 100 mls/hr IV . Q10H [facility] Rx#:[id number] Oral 500 480 Other: Voiding Method Urinal Urinal Toilet Urinal # Voids 2 1 - Exam General: The patient is awake and alert, in minimal fatty distress, and does not appear acutely ill. Neck: The neck is supple, there is no thyromegaly, lymphadenopathy, tenderness or JVD. Cardiovascular: S1S2 is normal, There is a regular rate and rhythm. No murmur, rub or gallop is appreciated. Respiratory: Lungs are coarse to auscultation bilaterally, respirations are non-labored, breath sounds are equal. Much improved from 1 day ago Gastrointestinal: Soft, non-distended, non-tender abdomen without masses or organomegaly noted. There is no rebound or guarding present. Bowel sounds are unremarkable. Musculoskeletal: Normal ROM, no tenderness, There is no pedal edema. There is no calf tenderness or swelling. No cords were appreciated. Neurological: CN II-XII intact, there are no obvious motor or sensory deficits. Coordination appears grossly intact. Speech is normal. Skin: Skin is warm and dry and no rashes or lesions are noted. - Labs CBC & Chem 7: 11/07/16 07:58 11/07/16 07:58 Labs: Abnormal Lab Results - Last 24 Hours (Table) 11/07/16 11/07/16 Range/Units 07:58 07:58 WBC 10.7 H (3.8-10.6) k/uL MCV 106.5 H (80.0-100.0) fL Plt Count 140 L (150-450) k/uL Neutrophils # 9.7 H (1.3-7.7) k/uL Lymphocytes # 0.6 L (1.0-4.8) k/uL Glucose 170 H (74-99) mg/dL Assessment and Plan (1) COPD (chronic obstructive pulmonary disease) with acute bronchitis Status: Acute (2) Abdominal pain Status: Acute (3) Chronic back pain Status: Acute (4) Failure of outpatient treatment Status: Acute Plan: Pain management per Dr. Trammell with Dilaudid and [place]. He will remain on Spiriva, Singulair, Solu-Medrol, Symbicort, Zithromax, DuoNeb for his COPD exacerbation. We will decrease his Solu-Medrol today. He will continue on Pristiq and Xanax for his anxiety and depression. He'll continue on Lovenox for DVT prophylaxis. He will start on Pepcid for GI prophylaxis. He will be Reevaluated in one day, expected discharge in 24 hours.
[2016-11-07] MEDS: TIOTROPIUM 18 MCG/PUFF INHALER INHALATION SCH (14:00)
[2016-11-07] MEDS: FAMOTIDINE 20 MG TAB PO SCH (15:23)
[2016-11-07] MEDS: methylPREDNISolone SOD SUCCI 40 MG/ML 1 ML VIAL IV SCH (21:19)
[2016-11-08] MEDS: HYDROmorphone 1 MG/ML 1 ML SYRINGE IVP PRN ×2 (00:24→06:28)
[2016-11-08] MEDS: ALPRAZolam 0.5 MG TAB PO PRN (00:24)
[2016-11-08] MEDS: HYDROcodone/APAP 10-325MG 1 EACH TAB PO PRN (02:51)
[2016-11-08] MEDS: SODIUM CHLORIDE 0.9% 1,000 ML IV SCH (06:09)
[2016-11-08 07:23] LABS: Basophils % (A) 0 %; CH 35.5; CHCM 33.1; Eosinophils % (A) 0 %; HCT 47.6 % (39.0-53.0); HDW 2.71; Luc # (Auto) 0.06; Luc % (Auto) 1; Lymphocytes # (A) 0.8 k/uL (1.0-4.8); Lymphocytes % (A) 7 %; MCH 34.1 pg (25.0-35.0); MCHC 31.6 g/dL (31.0-37.0); MCV 107.7 fL (80.0-100.0); Macrocytosis Moderate; Mean Platelet Volume 7.3; Monocytes # (A) 0.4 k/uL (0-1.0); Monocytes % (A) 3 %; Neutrophils # (A) 9.9 k/uL (1.3-7.7); Neutrophils % (A) 89 %; RBC 4.42 m/uL (4.30-5.90); RDW 13.9 % (11.5-15.5); WBC 11.1 k/uL (3.8-10.6); WBC (Perox) 11.43
--- NOTE | 2016-11-08 07:30 | XR ---
EXAMINATION TYPE: XR chest 2V DATE OF EXAM: 11/08/2016 6:52 AM COMPARISON: 11/06/2016 HISTORY: 60-year-old male with cough TECHNIQUE: Frontal and lateral views FINDINGS: The heart is upper limits of normal in size. Aorta within normal limits. Diffuse interstitial promine nce and some peribronchial cuffing is unchanged. No consolidation or pleural effusion. IMPRESSION: Borderline heart size. Chronic changes, possible chronic bronchitis/asthma. No acute change identifie d.
[2016-11-08 07:44] LABS: Anion Gap 11 mmol/L; Blood Urea Nitrogen 26 mg/dL (9-20); Calcium 8.8 mg/dL (8.4-10.2); Carbon Dioxide 26 mmol/L (22-30); Chloride 104 mmol/L (98-107); Glucose 125 mg/dL (74-99); Non-African American GFR(MDRD) >60 (>60 ml/min/1.73 sqM); Potassium 4.1 mmol/L (3.5-5.1); Sodium 141 mmol/L (137-145)
[2016-11-08 07:56] VITALS: BP 142/77; PULSE 67; RESP 16; TEMP 97.7
[2016-11-08] MEDS: amLODIPine 5 MG TAB PO SCH (08:12)
[2016-11-08] MEDS: ENOXAPARIN 40 MG/0.4 ML SYRINGE SQ SCH (08:12)
[2016-11-08] MEDS: DESVENLAFAXINE SUCCINATE 50 MG TAB.ER.24H PO SCH (08:12)
[2016-11-08] MEDS: AZITHROMYCIN 500 MG TAB PO SCH (08:12)
[2016-11-08] MEDS: TRIAMCINOLONE 0.1% CREAM 80 GM TUBE TOPICAL SCH (08:12)
[2016-11-08] MEDS: MONTELUKAST 10 MG TAB PO SCH (08:12)
[2016-11-08] MEDS: HYDROCORTISONE 1% CREAM 30 GM TUBE TOPICAL SCH (08:13)
[2016-11-08] MEDS: FAMOTIDINE 20 MG TAB PO SCH (08:13)
[2016-11-08] MEDS: methylPREDNISolone SOD SUCCI 40 MG/ML 1 ML VIAL IV SCH (08:13)
[2016-11-08] MEDS: SYMBICORT 80-4.5 MCG INHALER INHALATION SCH (09:30)
[2016-11-08] MEDS: IPRATROPIUM-ALBUTEROL 3 ML NEB INHALATION SCH (09:30)
[2016-11-08] MEDS: TIOTROPIUM 18 MCG/PUFF INHALER INHALATION SCH (09:30)
--- NOTE | 2016-11-08 12:12 | P.DS ---
Providers Date of admission: 11/06/16 02:52 Expected date of discharge: 11/08/16 Attending physician: Michael Nuñez Consults: 11/06/16 17:21 Consult Physician Routine Consulting Provider: George Trammell Consult Reason/Comments: pain Do you want consulting provider notified?: Yes Primary care physician: Michael Nuñez - Discharge Diagnosis(es) (1) COPD (chronic obstructive pulmonary disease) with acute bronchitis Current Visit: Yes Status: Acute (2) Abdominal pain Current Visit: No Status: Resolved (3) Chronic back pain Current Visit: No Status: Chronic (4) Failure of outpatient treatment Current Visit: No Status: Acute Hospital Course: This is a 60-year-old male well-known to me. Patient has strong history of COPD. Takes all medications at home but patient unable take medications at home secondary loss of power, patient's progressively worsened with his breathing throughout the night. He denies any fevers, no significant chest pain , some coughing. No other abdominal pain recently, no sick contacts are known. Patient does admit to taking medications as prescribed. He was placed on on IV Solu-Medrol, azithromycin Spiriva, Singulair, Symbicort , DuoNeb updrafts, and oxygen for COPD exacerbation. His steroids were slowly tapered over 2 days, he quickly improved. He was seen in consultation by Dr. Marcus for pain management. His meds were adjusted while he was here. He ordinarily seems Dr. Price, but is unhappy with the way the practice functions, and would like to see the same physician. Patient Condition at Discharge: Undetermined Plan - Discharge Summary New Discharge Prescriptions: Azithromycin [Zithromax] 500 mg PO DAILY #3 tab predniSONE 10 mg PO DAILY #30 tab Discharge Medication List Montelukast [Singulair] 10 mg PO DAILY 03/16/14 [History] amLODIPine [Norvasc] 5 mg PO QAM 07/05/14 [History] ALPRAZolam [Xanax] 1 mg PO TID 09/20/15 [History] Fluticasone/Vilanterol [Breo Ellipta 100-25 Mcg Inhaler] 1 puff INHALATION RT- DAILY 07/16/16 [History] Ipratropium-Albuterol Nebulize [Duoneb 0.5 mg-3 mg/3 ml Soln] 3 ml INHALATION RT -Q4H PRN #0 ampul.neb 07/19/16 [Rx] Desvenlafaxine [Pristiq ER] 100 mg PO DAILY 09/23/16 [History] Clindamycin Gel [Clindamycin Phosphate] 1 applic TOPICAL BID 10/08/16 [History] Fluocinolone Acetonide [Synalar] 1 applic TOPICAL DAILY 10/08/16 [History] Hydrocortisone Cream [Hydrocortisone 2.5% Cream] 1 applic TOPICAL BID 10/08/16 [ History] Ketoconazole 2% Shampoo [Nizoral] 1 applic TOPICAL DAILY 10/08/16 [History] Triamcinolone 0.1% Cream [Kenalog] 1 applicatio TOPICAL BID 10/08/16 [History] Umeclidinium [place] [Incruse Ellipta] 1 puff INHALATION RT-DAILY 10/08/16 [ History] Hydrocodone/Acetaminophen [[place] 10-325] 1 tab PO TID PRN 11/06/16 [History] Azithromycin [Zithromax] 500 mg PO DAILY #3 tab 11/08/16 [Rx] predniSONE 10 mg PO DAILY #30 tab 11/08/16 [Rx] Follow up Appointment(s)/Referral(s): Michael Nuñez MD [Primary Care Provider] - 1-2 days George Trammell MD [STAFF PHYSICIAN] - 12/16/16 Rustam Price MD [STAFF PHYSICIAN] - 1 Week Discharge Disposition: HOME SELF-CARE
== END 2016-11-08 13:00 | disposition home or self-care (01) | DRG 191 ==
LOC: EC 01:46 → 5MS5E 02:52
PROVIDERS: ADMIT Family Medicine; ATTEND Family Medicine
DX: J44.0 Chronic obstructive pulmonary disease with (acute) lower respiratory infection (principal); I48.92 Unspecified atrial flutter; I10 Essential (primary) hypertension; F32.9 Major depressive disorder, single episode, unspecified; J20.9 Acute bronchitis, unspecified; J44.1 Chronic obstructive pulmonary disease with (acute) exacerbation; F41.0 Panic disorder [episodic paroxysmal anxiety]; G47.30 Sleep apnea, unspecified; G89.4 Chronic pain syndrome; K21.9 Gastro-esophageal reflux disease without esophagitis; M19.90 Unspecified osteoarthritis, unspecified site; M54.2 Cervicalgia; M54.5 Low back pain; J45.909 Unspecified asthma, uncomplicated; F41.9 Anxiety disorder, unspecified; Z79.899 Other long term (current) drug therapy; Z87.891 Personal history of nicotine dependence
CPT/HCPCS: 36415; 71020; 80048; 80053; 82550; 82553; 83735; 84100; 84484; 85025; 85610; 85730; 93005; 94640; 96361; 96374; 96375; 99291

== ENCOUNTER 2016-12-05 11:03 | Emergency (ER) | payer MEDICARE, OTHER ==
[2016-12-05 12:29] VITALS: BP 177/83; PULSE 77; RESP 20; TEMP 97.4
[2016-12-05] MEDS ORDERED: methylPREDNISolone SOD SUCCI 125 MG/2 ML VIAL IM STA (13:00)
--- NOTE | 2016-12-05 13:06 | ED ---
Skin/Abscess/FB HPI - General Chief complaint: Skin/Abscess/Foreign Body Stated complaint: rash Time Seen by Provider: 12/05/16 12:56 Source: patient, RN notes reviewed Mode of arrival: ambulatory Limitations: no limitations - History of Present Illness Initial comments: 61-year-old male presents to the emergency department with a chief complaint of rash. Patient states he's had the rash for the past 2 weeks. Patient states he went to the clinic he was put on a steroid Dosepak and antibiotics. Patient states the rash continues. Patient states that it is very pruritic. 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 Patient states he was wondering if we could help him with the itchiness until he can see the supervisor fruit grading. Patient also does admit of his chronic back pain and hoping that we can give him some pain medication but not Toradol to help with this pain. Patient states much like his typical back pain. Patient denies any changes are different to the back pain. - Related Data Home Medications Medication Instructions Recorded Confirmed Montelukast [Singulair] 10 mg PO DAILY 03/16/14 11/06/16 amLODIPine [Norvasc] 5 mg PO QAM 07/05/14 11/06/16 ALPRAZolam [Xanax] 1 mg PO TID 09/20/15 11/06/16 Fluticasone/Vilanterol [Breo 1 puff INHALATION RT-DAILY 07/16/16 11/06/16 Ellipta 100-25 Mcg Inhaler] Desvenlafaxine [Pristiq ER] 100 mg PO DAILY 09/23/16 11/06/16 Clindamycin Gel [Clindamycin 1 applic TOPICAL BID 10/08/16 11/06/16 Phosphate] Fluocinolone Acetonide [Synalar] 1 applic TOPICAL DAILY 10/08/16 11/06/16 Hydrocortisone Cream 1 applic TOPICAL BID 10/08/16 11/06/16 [Hydrocortisone 2.5% Cream] Ketoconazole 2% Shampoo [Nizoral] 1 applic TOPICAL DAILY 10/08/16 11/06/16 Triamcinolone 0.1% Cream [Kenalog] 1 applicatio TOPICAL BID 10/08/16 11/06/16 Umeclidinium [place] [Incruse 1 puff INHALATION RT-DAILY 10/08/16 11/06/16 Ellipta] Hydrocodone/Acetaminophen [[place] 1 tab PO TID PRN 11/06/16 11/06/16 10-325] Previous Rx's Medication Instructions Recorded Ipratropium-Albuterol Nebulize 3 ml INHALATION RT-Q4H PRN #0 07/19/16 [Duoneb 0.5 mg-3 mg/3 ml Soln] ampul.neb Azithromycin [Zithromax] 500 mg PO DAILY #3 tab 11/08/16 predniSONE 10 mg PO DAILY #30 tab 11/08/16 hydrOXYzine HCL 25 mg PO QID 5 Days 12/05/16 Allergies Allergy/AdvReac Type Severity Reaction Status Date / Time peanut Allergy alg testing Verified 12/05/16 12:29 DUST Allergy alg testing Uncoded 12/05/16 12:29 POLLEN Allergy alg testing Uncoded 12/05/16 12:29 Review of Systems ROS Statement: Those systems with pertinent positive or pertinent negative responses have been documented in the HPI. ROS Other: All systems not noted in ROS Statement are negative. Past Medical History Past Medical History: Atrial Flutter, Asthma, Chest Pain / Angina, COPD, GERD/ Reflux, Hypertension, Osteoarthritis (OA), Pneumonia, Sleep Apnea/CPAP/BIPAP Additional Past Medical History / Comment(s): Chronic neck and back pain History of Any Multi-Drug Resistant Organisms: None Reported Past Surgical History: Adenoidectomy, Bowel Resection Additional Past Surgical History / Comment(s): REMOVAL OF UVULA. bowel resection for large polyps, colonoscopy with polypectomies, nasal surgery x 2, bronchoscopy with lung bx, pain clinic procedures. Past Anesthesia/Blood Transfusion Reactions: Previous Problems w/ Anesthesia Additional Past Anesthesia/Blood Transfusion Reaction / Comment(s): states "during procedure of checking something on my left lung,I turned blue and I was brought right back out anesthesia and proc was cancelled" Past Psychological History: Anxiety, Bipolar, Depression, Panic Disorder Additional Psychological History / Comment(s): Pt resides alone in an apartment. He uses a cane to ambulate. There are several stairs in his apt He has a nebulizer. Smoking Status: Former smoker Past Alcohol Use History: Occasional Additional Past Alcohol Use History / Comment(s): Pt quit smoking in the 1979. He had been a ppd smoker for about 15 yrs. Past Drug Use History: None Reported - Past Family History Mother Family Medical History: Asthma Father Family Medical History: CVA/TIA General Exam Limitations: no limitations General appearance: alert, in no apparent distress Head exam: Present: atraumatic, normocephalic, normal inspection Neck exam: Present: normal inspection. Absent: tenderness, meningismus, lymphadenopathy Respiratory exam: Present: normal lung sounds bilaterally. Absent: respiratory distress, wheezes, rales, rhonchi, stridor Cardiovascular Exam: Present: regular rate, normal rhythm, normal heart sounds. Absent: systolic murmur, diastolic murmur, rubs, gallop, clicks Back exam: Present: normal inspection, full ROM. Absent: tenderness, muscle spasm, paraspinal tenderness, vertebral tenderness Neurological exam: Present: alert, oriented X3, CN II-XII intact Psychiatric exam: Present: normal affect, normal mood Skin exam: Present: warm, dry, intact, normal color, rash (Patient is here to have a papular rash to the head chest in the back. It is pruritic. blanching.) Course Vital Signs 12/05/16 12:27 Temperature 97.4 F L Pulse Rate 77 Respiratory 20 Rate Blood Pressure 177/83 O2 Sat by Pulse 96 Oximetry Medical Decision Making - Medical Decision Making 61-year-old male presents with what appears to be dermatitis. We will start him on hydroxyzine help with itching. Also give a steroid injection. Discussed. The dentist and states that he does have one. We did discuss return parameters. Patient also complains chronic neck and back pain. Patient is seen here IN the emergency department for this complaint. We discussed will not give him any narcotics for this. He refused the Toradol injection. We discussed continuing follow-up with his doctor for his continued back pain. Patient stated that he understood. Patient is in agreement with plan all questions have been answered. He will be discharged home. Disposition Clinical Impression: Dermatitis Disposition: HOME SELF-CARE Condition: Stable Instructions: Dermatitis (ED) Additional Instructions: Please use medication as discussed. Please follow up with family doctor if symptoms have not improved over the next two days. Please return to the emergency room if your symptoms increase or worsen or for any other concerns. Prescriptions: hydrOXYzine HCL 25 mg PO QID 5 Days Referrals: Michael Nuñez MD [Primary Care Provider] - 1-2 days Time of Disposition: 13:05
== END 2016-12-05 13:34 | disposition home or self-care (01) ==
LOC: EC 11:03
DX: L30.9 Dermatitis, unspecified (principal); M54.9 Dorsalgia, unspecified; G89.29 Other chronic pain; I10 Essential (primary) hypertension; J44.9 Chronic obstructive pulmonary disease, unspecified; J45.909 Unspecified asthma, uncomplicated; F32.9 Major depressive disorder, single episode, unspecified; F41.0 Panic disorder [episodic paroxysmal anxiety]; Z87.891 Personal history of nicotine dependence; Z79.51 Long term (current) use of inhaled steroids; Z79.52 Long term (current) use of systemic steroids; Z79.899 Other long term (current) drug therapy; Z91.010 Allergy to peanuts; Z91.09 Other allergy status, other than to drugs and biological substances; Z87.01 Personal history of pneumonia (recurrent); Z86.79 Personal history of other diseases of the circulatory system
CPT/HCPCS: 99282; 96372; J2930

== ENCOUNTER 2016-12-23 21:35 | Inpatient (IN) | payer MEDICARE, OTHER ==
[2016-12-23] MEDS ORDERED: SODIUM CHLORIDE 0.9% 500 ML IV STA (21:51)
[2016-12-23] MEDS ORDERED: SODIUM CHLORIDE 0.9% 1,000 ML IV STA (21:51)
--- NOTE | 2016-12-23 21:54 | ED ---
General Adult HPI - General Chief complaint: Shortness of Breath Stated complaint: Fall/SOB Time Seen by Provider: 12/23/16 21:50 Source: patient, RN notes reviewed, old records reviewed Mode of arrival: wheelchair Limitations: no limitations - History of Present Illness Initial comments: This is a 7-year-old male here with shortness of breath, significant short of breath with history of COPD. Patient states he lost power at his home tonight and was unable to do his breathing treatments at home is normal. Secondary to being short of breath he fell complaining of some left thigh pain. Patient is able to ambulate was brought and his friend. At this point patient is complaining mainly of shortness of breath but also of the pain, worse with movement. No fevers, does have increased cough and congestion. Again no chest pain. - Related Data Home Medications Medication Instructions Recorded Confirmed Montelukast [Singulair] 10 mg PO DAILY 03/16/14 12/23/16 amLODIPine [Norvasc] 5 mg PO QAM 07/05/14 12/23/16 ALPRAZolam [Xanax] 1 mg PO TID 09/20/15 12/23/16 Fluticasone/Vilanterol [Breo 1 puff INHALATION RT-DAILY 07/16/16 12/23/16 Ellipta 100-25 Mcg Inhaler] Desvenlafaxine [Pristiq ER] 100 mg PO DAILY 09/23/16 12/23/16 Ketoconazole 2% Shampoo [Nizoral] 1 applic TOPICAL DAILY 10/08/16 12/23/16 Umeclidinium [place] [Incruse 1 puff INHALATION RT-DAILY 10/08/16 12/23/16 Ellipta] Hydrocodone/Acetaminophen [[place] 1 tab PO QID PRN 11/06/16 12/23/16 10-325] Unknown Breathing Treatment 1 dose INHALATION DIRECTED 12/23/16 12/23/16 Allergies Allergy/AdvReac Type Severity Reaction Status Date / Time peanut Allergy alg testing Verified 12/23/16 21:42 pollen extracts Allergy Unknown Verified 12/23/16 22:09 DUST Allergy alg testing Uncoded 12/23/16 21:42 Review of Systems ROS Statement: Those systems with pertinent positive or pertinent negative responses have been documented in the HPI. ROS Other: All systems not noted in ROS Statement are negative. Past Medical History Past Medical History: Atrial Flutter, Asthma, Chest Pain / Angina, COPD, GERD/ Reflux, Hypertension, Osteoarthritis (OA), Pneumonia, Sleep Apnea/CPAP/BIPAP Additional Past Medical History / Comment(s): Chronic neck and back pain History of Any Multi-Drug Resistant Organisms: None Reported Past Surgical History: Adenoidectomy, Bowel Resection Additional Past Surgical History / Comment(s): REMOVAL OF UVULA. bowel resection for large polyps, colonoscopy with polypectomies, nasal surgery x 2, bronchoscopy with lung bx, pain clinic procedures. Past Anesthesia/Blood Transfusion Reactions: Previous Problems w/ Anesthesia Additional Past Anesthesia/Blood Transfusion Reaction / Comment(s): states "during procedure of checking something on my left lung,I turned blue and I was brought right back out anesthesia and proc was cancelled" Past Psychological History: Anxiety, Bipolar, Depression, Panic Disorder Additional Psychological History / Comment(s): Pt resides alone in an apartment. He uses a cane to ambulate. There are several stairs in his apt He has a nebulizer. Smoking Status: Former smoker Past Alcohol Use History: Occasional Additional Past Alcohol Use History / Comment(s): Pt quit smoking in the 1979. He had been a ppd smoker for about 15 yrs. Past Drug Use History: None Reported - Past Family History Mother Family Medical History: Asthma Father Family Medical History: CVA/TIA General Exam Limitations: no limitations General appearance: alert, in no apparent distress Head exam: Present: atraumatic, normocephalic, normal inspection Eye exam: Present: normal appearance, PERRL, EOMI. Absent: scleral icterus, conjunctival injection, periorbital swelling ENT exam: Present: normal exam, mucous membranes moist Neck exam: Present: normal inspection. Absent: tenderness, meningismus, lymphadenopathy Respiratory exam: Present: normal lung sounds bilaterally, wheezes, accessory muscle use, decreased breath sounds, prolonged expiratory. Absent: respiratory distress, rales, rhonchi, stridor Cardiovascular Exam: Present: normal rhythm, tachycardia, normal heart sounds. Absent: systolic murmur, diastolic murmur, rubs, gallop, clicks GI/Abdominal exam: Present: soft, normal bowel sounds. Absent: distended, tenderness, guarding, rebound, rigid Extremities exam: Present: normal inspection, full ROM, normal capillary refill. Absent: tenderness, pedal edema, joint swelling, calf tenderness Back exam: Present: normal inspection Neurological exam: Present: alert, oriented X3, CN II-XII intact Psychiatric exam: Present: normal affect, normal mood Skin exam: Present: warm, dry, intact, normal color. Absent: rash Course Vital Signs 12/23/16 12/23/16 12/23/16 21:39 22:08 22:23 Temperature 98.3 F Pulse Rate 101 H 96 94 Respiratory 26 H Rate Blood Pressure 138/74 O2 Sat by Pulse 92 L Oximetry 12/23/16 12/23/16 22:40 22:49 Temperature Pulse Rate 98 100 Respiratory Rate Blood Pressure O2 Sat by Pulse Oximetry - Reevaluation(s) Reevaluation #1: 12/23/16 23:41 Patient was breathing treatment, still remaining hypoxic despite oxygen, patient is not on home O2 Reevaluation #2: 12/23/16 23:41 Patient still complaining of pain EKG Findings - EKG Comments: EKG Findings:: EKG shows sinus tachycardia rate 103, AR 1:30, QRS 88, QTc 476 Medical Decision Making - Medical Decision Making 7 female here for evaluation of shortness of breath and back pain. Patient is COPD exacerbation with hypoxia, we'll admit her. She was, evaluation by pulmonology, patient has recurrent hypoxia not on home O2, oxygen is still 80% despite 2 L - Lab Data Result diagrams: 12/23/16 22:00 12/23/16 22:00 Lab Results 12/23/16 12/23/16 12/23/16 Range/Units 22:00 22:00 22:00 WBC 7.6 (3.8-10.6) k/uL RBC 4.63 (4.30-5.90) m/uL Hgb 16.0 (13.0-17.5) gm/dL Hct 47.1 (39.0-53.0) % MCV 101.9 H D (80.0-100.0) fL MCH 34.5 (25.0-35.0) pg MCHC 33.9 (31.0-37.0) g/dL RDW 15.1 (11.5-15.5) % Plt Count 231 (150-450) k/uL Neutrophils % 63 % Lymphocytes % 24 % Monocytes % 8 % Eosinophils % 2 % Basophils % 1 % Neutrophils # 4.8 (1.3-7.7) k/uL Lymphocytes # 1.8 (1.0-4.8) k/uL Monocytes # 0.6 (0-1.0) k/uL Eosinophils # 0.1 (0-0.7) k/uL Basophils # 0.1 (0-0.2) k/uL Macrocytosis Slight PT (9.0-12.0) sec INR (<1.1) APTT (22.0-30.0) sec Sodium 141 (137-145) mmol/L Potassium 3.6 (3.5-5.1) mmol/L Chloride 102 (98-107) mmol/L Carbon Dioxide 25 (22-30) mmol/L Anion Gap 14 mmol/L BUN 22 H (9-20) mg/dL Creatinine 1.26 H (0.66-1.25) mg/dL Est GFR (MDRD) Af Amer >60 (>60 ml/min/1.73 sqM) Est GFR (MDRD) Non-Af 58 (>60 ml/min/1.73 sqM) Glucose 113 H (74-99) mg/dL Calcium 9.3 (8.4-10.2) mg/dL Magnesium 1.8 (1.6-2.3) mg/dL Total Bilirubin 0.8 (0.2-1.3) mg/dL AST 57 (17-59) U/L ALT 84 H (21-72) U/L Alkaline Phosphatase 94 (38-126) U/L Total Creatine Kinase 65 (55-170) U/L CK-MB (CK-2) 1.3 (0.0-2.4) ng/mL CK-MB (CK-2) Rel Index 2.0 Troponin I 0.014 (0.000-0.034) ng/mL NT-Pro-B Natriuret Pep pg/mL Total Protein 6.9 (6.3-8.2) g/dL Albumin 4.5 (3.5-5.0) g/dL 12/23/16 12/23/16 Range/Units 22:00 22:00 WBC (3.8-10.6) k/uL RBC (4.30-5.90) m/uL Hgb (13.0-17.5) gm/dL Hct (39.0-53.0) % MCV (80.0-100.0) fL MCH (25.0-35.0) pg MCHC (31.0-37.0) g/dL RDW (11.5-15.5) % Plt Count (150-450) k/uL Neutrophils % % Lymphocytes % % Monocytes % % Eosinophils % % Basophils % % Neutrophils # (1.3-7.7) k/uL Lymphocytes # (1.0-4.8) k/uL Monocytes # (0-1.0) k/uL Eosinophils # (0-0.7) k/uL Basophils # (0-0.2) k/uL Macrocytosis PT 10.3 (9.0-12.0) sec INR 1.0 (<1.1) APTT 21.2 L (22.0-30.0) sec Sodium (137-145) mmol/L Potassium (3.5-5.1) mmol/L Chloride (98-107) mmol/L Carbon Dioxide (22-30) mmol/L Anion Gap mmol/L BUN (9-20) mg/dL Creatinine (0.66-1.25) mg/dL Est GFR (MDRD) Af Amer (>60 ml/min/1.73 sqM) Est GFR (MDRD) Non-Af (>60 ml/min/1.73 sqM) Glucose (74-99) mg/dL Calcium (8.4-10.2) mg/dL Magnesium (1.6-2.3) mg/dL Total Bilirubin (0.2-1.3) mg/dL AST (17-59) U/L ALT (21-72) U/L Alkaline Phosphatase (38-126) U/L Total Creatine Kinase (55-170) U/L CK-MB (CK-2) (0.0-2.4) ng/mL CK-MB (CK-2) Rel Index Troponin I (0.000-0.034) ng/mL NT-Pro-B Natriuret Pep 60 pg/mL Total Protein (6.3-8.2) g/dL Albumin (3.5-5.0) g/dL - Radiology Data Radiology results: report reviewed (Chest x-ray is negative for acute disease), image reviewed Disposition Clinical Impression: COPD (chronic obstructive pulmonary disease) with acute bronchitis, Acute exacerbation of chronic obstructive airways disease, Hypoxia Disposition: ADMITTED IP TO THIS HOSP Condition: Fair Referrals: Michael Nuñez MD [Primary Care Provider] - 1-2 days
[2016-12-23] MEDS ORDERED: ALBUTEROL NEBULIZED 2.5 MG/3 ML INHALATION STA (22:01)
[2016-12-23] MEDS ORDERED: IPRATROPIUM 0.5 MG/2.5 ML NEBU INHALATION STA (22:01)
[2016-12-23] MEDS ORDERED: methylPREDNISolone SOD SUCCI 125 MG/2 ML VIAL IV STA (22:01)
[2016-12-23] MEDS ORDERED: MORPHINE SULFATE 4 MG/ML SYRINGE IVP STA ×2 (22:01→23:31)
--- NOTE | 2016-12-23 22:09 | XR ---
EXAMINATION TYPE: XR chest 1V portable DATE OF EXAM: 12/23/2016 10:04 PM COMPARISON: 11/08/2016 HISTORY: Short of breath TECHNIQUE: Single frontal view of the chest is obtained. FINDINGS: There is no heart failure nor confluent pneumonic infiltrate. There are no hilar masses. C ostophrenic angles are clear. There are chest leads. IMPRESSION: No active cardiopulmonary disease. No change.
[2016-12-23 22:27] LABS: Basophils # (A) 0.1 k/uL (0-0.2); Basophils % (A) 1 %; CH 35.6; CHCM 35.2; Eosinophils # (A) 0.1 k/uL (0-0.7); Eosinophils % (A) 2 %; HCT 47.1 % (39.0-53.0); HDW 3.01; Luc % (Auto) 3; Lymphocytes # (A) 1.8 k/uL (1.0-4.8); Lymphocytes % (A) 24 %; MCH 34.5 pg (25.0-35.0); MCHC 33.9 g/dL (31.0-37.0); Macrocytosis Slight; Mean Platelet Volume 6.7; Monocytes # (A) 0.6 k/uL (0-1.0); Monocytes % (A) 8 %; Neutrophils # (A) 4.8 k/uL (1.3-7.7); Neutrophils % (A) 63 %; RBC 4.63 m/uL (4.30-5.90); RDW 15.1 % (11.5-15.5); WBC 7.6 k/uL (3.8-10.6); WBC (Perox) 7.28
[2016-12-23 22:32] LABS: MCV 101.9 fL (80.0-100.0)
[2016-12-23 22:36] LABS: ALT 84 U/L (21-72); AST 57 U/L (17-59); Alkaline Phosphatase 94 U/L (38-126); Anion Gap 14 mmol/L; Blood Urea Nitrogen 22 mg/dL (9-20); Calcium 9.3 mg/dL (8.4-10.2); Carbon Dioxide 25 mmol/L (22-30); Chloride 102 mmol/L (98-107); Glucose 113 mg/dL (74-99); Magnesium 1.8 mg/dL (1.6-2.3); Non-African American GFR(MDRD) 58 (>60 ml/min/1.73 sqM); Potassium 3.6 mmol/L (3.5-5.1); Sodium 141 mmol/L (137-145); Total Bilirubin 0.8 mg/dL (0.2-1.3); Total Protein 6.9 g/dL (6.3-8.2)
[2016-12-23 22:38] LABS: Prothrombin Time 10.3 sec (9.0-12.0)
[2016-12-23 22:53] LABS: Partial Thromboplastin Time 21.2 sec (22.0-30.0)
[2016-12-23 23:00] LABS: Creatine Kinase MB 1.3 ng/mL (0.0-2.4); Troponin I 0.014 ng/mL (0.000-0.034)
[2016-12-24] MEDS: HYDROcodone/APAP 10-325MG 1 EACH TAB PO PRN ×3 (02:54→15:25)
[2016-12-24] MEDS: SODIUM CHLORIDE 0.9% 1,000 ML IV SCH ×4 (04:19→23:09)
[2016-12-24] MEDS: IPRATROPIUM-ALBUTEROL 3 ML NEB INHALATION SCH ×4 (05:19→19:50)
[2016-12-24] MEDS: methylPREDNISolone SOD SUCCI 125 MG/2 ML VIAL IV SCH ×4 (07:02→23:09)
[2016-12-24] MEDS: SYMBICORT 160-4.5 MCG INHALER INHALATION SCH ×2 (07:31→19:50)
[2016-12-24] MEDS: IPRATROPIUM-ALBUTEROL 3 ML NEB INHALATION PRN (07:31)
[2016-12-24] MEDS: MONTELUKAST 10 MG TAB PO SCH (08:14)
[2016-12-24] MEDS: DESVENLAFAXINE SUCCINATE 50 MG TAB.ER.24H PO SCH (08:14)
[2016-12-24] MEDS: amLODIPine 5 MG TAB PO SCH (08:14)
[2016-12-24] MEDS: ALPRAZolam 0.5 MG TAB PO SCH ×3 (08:14→21:34)
[2016-12-24] MEDS: ENOXAPARIN 40 MG/0.4 ML SYRINGE SQ SCH (08:15)
[2016-12-24] MEDS: KETOCONAZOLE 2% SHAMPOO 1 APPLIC/ML TOPICAL SCH (08:56)
--- NOTE | 2016-12-24 11:20 | P.CNPUL ---
History of Present Illness Consult date: 12/24/16 Requesting physician: Michael Nuñez Reason for consult: COPD Chief complaint: Shortness of breath History of present illness: This is a 61-year-old male patient being evaluated and examined today on the fourth floor. Patient came into the emergency room with complaints of increasing shortness of breath over the last few days he was noted to be hypoxic on room air. The patient does not wear oxygen at home. Patient does use nebulizer treatments scheduled around the clock. Patient does have a history of severe COPD as well as obstructive sleep apnea. Chest x-ray was obtained and shows COPD with no acute pulmonary process. Patient does complain of a productive cough however of the secretions are too thick to bring up. Review of Systems 14 point review of systems was completed and is negative other than what's noted in the HPI. Past Medical History Past Medical History: Atrial Flutter, Asthma, Chest Pain / Angina, COPD, GERD/ Reflux, Hypertension, Osteoarthritis (OA), Pneumonia, Sleep Apnea/CPAP/BIPAP Additional Past Medical History / Comment(s): Chronic neck and back pain History of Any Multi-Drug Resistant Organisms: None Reported Past Surgical History: Adenoidectomy, Bowel Resection, Cholecystectomy Additional Past Surgical History / Comment(s): REMOVAL OF UVULA. bowel resection for large polyps, colonoscopy with polypectomies, nasal surgery x 2, bronchoscopy with lung bx, pain clinic procedures. Past Anesthesia/Blood Transfusion Reactions: Previous Problems w/ Anesthesia Additional Past Anesthesia/Blood Transfusion Reaction / Comment(s): states "during procedure of checking something on my left lung,I turned blue and I was brought right back out anesthesia and proc was cancelled" Past Psychological History: Anxiety, Bipolar, Depression, Panic Disorder Additional Psychological History / Comment(s): Pt resides alone in an apartment. He uses a cane to ambulate. There are several stairs in his apt He has a nebulizer. Smoking Status: Never smoker Past Alcohol Use History: Occasional Additional Past Alcohol Use History / Comment(s): Pt quit smoking in the 1979. He had been a ppd smoker for about 15 yrs. Past Drug Use History: None Reported - Past Family History Mother Family Medical History: Asthma Father Family Medical History: CVA/TIA Medications and Allergies Home Medications Medication Instructions Recorded Confirmed Type Montelukast [Singulair] 10 mg PO DAILY 03/16/14 12/23/16 History amLODIPine [Norvasc] 5 mg PO QAM 07/05/14 12/23/16 History ALPRAZolam [Xanax] 1 mg PO TID 09/20/15 12/23/16 History Fluticasone/Vilanterol [Breo 1 puff INHALATION RT-DAILY 07/16/16 12/23/16 History Ellipta 100-25 Mcg Inhaler] Desvenlafaxine [Pristiq ER] 100 mg PO DAILY 09/23/16 12/23/16 History Ketoconazole 2% Shampoo [Nizoral] 1 applic TOPICAL DAILY 10/08/16 12/23/16 History Umeclidinium [place] [Incruse 1 puff INHALATION RT-DAILY 10/08/16 12/23/16 History Ellipta] Hydrocodone/Acetaminophen [[place] 1 tab PO QID PRN 11/06/16 12/23/16 History 10-325] Allergies Allergy/AdvReac Type Severity Reaction Status Date / Time peanut Allergy alg testing Verified 12/23/16 21:42 pollen extracts Allergy Unknown Verified 12/23/16 22:09 DUST Allergy alg testing Uncoded 12/23/16 21:42 Physical Exam Vitals: Vital Signs Temp Pulse Pulse Resp BP BP Pulse Ox 12/24/16 10:56 94 L 12/24/16 07:42 84 12/24/16 07:32 84 94 L 12/24/16 07:00 96.5 F L 83 21 155/80 96 12/24/16 05:30 100 12/24/16 05:20 96 12/24/16 00:30 97.5 F L 92 20 127/80 96 12/23/16 23:42 100 18 141/76 92 L 12/23/16 23:00 22 12/23/16 22:49 100 12/23/16 22:40 98 12/23/16 22:23 94 12/23/16 22:08 96 12/23/16 21:39 98.3 F 101 H 26 H 138/74 92 L Intake and Output 12/23/16 12/24/16 12/24/16 22:59 06:59 14:59 Intake Total 540 Output Total 500 Balance 40 Intake: Oral 540 Output: Urine 500 Other: Weight 108.862 kg 108.182 kg GENERAL EXAM: Alert, active, comfortable in no apparent distress. HEAD: Normocephalic. EYES: Normal reaction of pupils, equal size. NOSE: Clear with pink turbinates. THROAT: No erythema or exudates. NECK: No masses, no JVD. CHEST: No chest wall deformity. LUNGS: Lung sounds noted to be coarse and congested throughout, and expiratory wheezing noted. Bases diminished. CVS: S1 and S2 normal with no audible mumurs, regular rhythm. ABDOMEN: No hepatosplenomegaly, normal bowel sounds, no guarding or rigidity. EXTREMITIES: No edema noted, pedal pulses palpable. SKIN: No rashes CENTRAL NERVOUS SYSTEM: No focal deficits, tone is normal in all 4 extremities. Results - Laboratory Findings CBC and BMP: 12/23/16 22:00 12/23/16 22:00 PT/INR, D-dimer PT 10.3 sec (9.0-12.0) 12/23/16 22:00 INR 1.0 (<1.1) 12/23/16 22:00 Abnormal lab findings: Abnormal Labs 12/23/16 12/23/16 12/23/16 22:00 22:00 22:00 MCV 101.9 H D APTT 21.2 L BUN 22 H Creatinine 1.26 H Glucose 113 H ALT 84 H Urine Opiates Screen U Benzodiazepines Scrn 12/24/16 03:30 MCV APTT BUN Creatinine Glucose ALT Urine Opiates Screen Detected H U Benzodiazepines Scrn Detected H - Diagnostic Findings Chest x-ray: report reviewed, image reviewed Assessment and Plan Plan: Assessment Acute exacerbation of COPD Acute hypoxic respiratory failure Tracheobronchitis Obstructive sleep apnea Chronic moderate persistent asthma History of hypertension, hypertensive cardiovascular disease Chronic pain syndrome Plan Medications have been reviewed and will be continued as ordered. Continue with pulmonary hygiene, coughing and deep breathing exercises, and supportive care. We will add Mucinex to help with secretions. Supplemental oxygen to maintain oxygen saturations of 92% or better. Initiate and encourage incentive spirometer. Continue nebulizer treatments. GI and DVT prophylaxis. Continue with IV steroids. Repeat labs in the morning. We will continue to monitor labs /results and adjust treatment as necessary. Further recommendations pending. I performed an examination of the patient and discussed their management with the nurse practitioner. I have reviewed the nurse practitioner's note and agree with the documented findings and plan of care.
[2016-12-24] MEDS: guaiFENesin 600 MG TABLET.ER PO SCH ×2 (12:26→23:07)
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
--- NOTE | 2016-12-24 16:53 | P.CONS ---
History of Present Illness - Chief Complaint Medical debility and chronic neck and low back pain - History of Present Illness I had the opportunity to see patient for inpatient rehab consultation with regard to medical debility related to COPD exacerbation and shortness of breath. He is known to me for treatment for chronic neck and back pain. In my office, treating him with [place] 10 Q ID. Patient reports previously being on the Dilaudid in hospital setting for exacerbations of pain. I can allow at this time. Note that he's been seen by pulmonary for COPD as well. Chest x- ray negative. I prescribed PT and OT at this time, as well. Previous functional history, as elicited from patient: 61-year-old left-handed white male is single lives in second-floor apartment, alone. Describes an been with cooking, laundry, driving, standing shower. He has more recently been using standard cane but previously has not required it. Review of Systems Review of systems: ENT: Denies sneezes or discharge. Eyes: Denies discharge or photophobia. Cardiac: Denies chest pain or palpitation. Pulmonary: Denies cough or shortness of breath. Gastrointestinal: Denies nausea, emesis, constipation, diarrhea. Genitourinary: Denies discharge or frequency. Musculoskeletal: Chronic neck and back pain. Neurologic: Denies motor or sensory change. Endocrine: Denies shakes or sweats. Oncology: Denies cancers. Dermatologic: Denies rash, itching, pruritus. ALLERGY/immunology: Denies sneezes, rashes. Past Medical History Past Medical History: Atrial Flutter, Asthma, Chest Pain / Angina, COPD, GERD/ Reflux, Hypertension, Osteoarthritis (OA), Pneumonia, Sleep Apnea/CPAP/BIPAP Additional Past Medical History / Comment(s): Chronic neck and back pain History of Any Multi-Drug Resistant Organisms: None Reported Past Surgical History: Adenoidectomy, Bowel Resection, Cholecystectomy Additional Past Surgical History / Comment(s): REMOVAL OF UVULA. bowel resection for large polyps, colonoscopy with polypectomies, nasal surgery x 2, bronchoscopy with lung bx, pain clinic procedures. Past Anesthesia/Blood Transfusion Reactions: Previous Problems w/ Anesthesia Additional Past Anesthesia/Blood Transfusion Reaction / Comm: states "during procedure of checking something on my left lung,I turned blue and I was brought right back out anesthesia and proc was cancelled" Past Psychological History: Anxiety, Bipolar, Depression, Panic Disorder Additional Psychological History / Comment(s): Pt resides alone in an apartment. He uses a cane to ambulate. There are several stairs in his apt He has a nebulizer. Smoking Status: Never smoker Past Alcohol Use History: Occasional Additional Past Alcohol Use History / Comment(s): Pt quit smoking in the 1979. He had been a ppd smoker for about 15 yrs. Past Drug Use History: None Reported - Past Family History Mother Family Medical History: Asthma Father Family Medical History: CVA/TIA Medications and Allergies Home Medications Medication Instructions Recorded Confirmed Type Montelukast [Singulair] 10 mg PO DAILY 03/16/14 12/23/16 History amLODIPine [Norvasc] 5 mg PO QAM 07/05/14 12/23/16 History ALPRAZolam [Xanax] 1 mg PO TID 09/20/15 12/23/16 History Fluticasone/Vilanterol [Breo 1 puff INHALATION RT-DAILY 07/16/16 12/23/16 History Ellipta 100-25 Mcg Inhaler] Desvenlafaxine [Pristiq ER] 100 mg PO DAILY 09/23/16 12/23/16 History Ketoconazole 2% Shampoo [Nizoral] 1 applic TOPICAL DAILY 10/08/16 12/23/16 History Umeclidinium [place] [Incruse 1 puff INHALATION RT-DAILY 10/08/16 12/23/16 History Ellipta] Hydrocodone/Acetaminophen [[place] 1 tab PO QID PRN 11/06/16 12/23/16 History 10-325] Allergies Allergy/AdvReac Type Severity Reaction Status Date / Time peanut Allergy alg testing Verified 12/23/16 21:42 pollen extracts Allergy Unknown Verified 12/23/16 22:09 DUST Allergy alg testing Uncoded 12/23/16 21:42 Physical Exam Vitals: Vital Signs Temp Pulse Pulse Resp BP BP Pulse Ox 12/24/16 16:17 100 12/24/16 16:04 104 H 12/24/16 15:00 96.2 F L 81 20 134/77 96 12/24/16 11:40 92 12/24/16 11:30 92 12/24/16 11:17 92 L 12/24/16 11:12 92 12/24/16 10:56 94 L 12/24/16 07:42 84 12/24/16 07:32 84 94 L 12/24/16 07:00 96.5 F L 83 21 155/80 96 12/24/16 05:30 100 12/24/16 05:20 96 12/24/16 00:30 97.5 F L 92 20 127/80 96 12/23/16 23:42 100 18 141/76 92 L 12/23/16 23:00 22 12/23/16 22:49 100 12/23/16 22:40 98 12/23/16 22:23 94 12/23/16 22:08 96 12/23/16 21:39 98.3 F 101 H 26 H 138/74 92 L Intake and Output 12/24/16 12/24/16 12/24/16 06:59 14:59 22:59 Intake Total 540 Output Total 500 300 Balance 40 -300 Intake: Oral 540 Output: Urine 500 300 Other: # Voids 2 3 Weight 108.182 kg Skin: Good color, texture, turgor. General: Medium build and comfortable appearance. Head: Normocephalic, atraumatic. Eyes: Symmetric. Pupils equal round. Ears: Symmetric. Hearing within normal limits. Mouth: Clear. Neck: Supple. Carotid without bruit. Cardiac: Regular rate and rhythm. Lungs: Clear anteriorly and posteriorly. Abdomen: Soft active nontender. Overweight. Extremities: Normal tone. Chronic edema forelegs and feet of 1-2+. Neurological: Mental status: Alert, cooperative, pleasant. Cranial nerves: Symmetric facial tone and trapezius. Motor: Normal strength and isolation all 4 limbs. Sensation: Intact throughout. DTRs: Symmetric and equal throughout. Mobility: Described independent in room. Results CBC & Chem 7: 12/23/16 22:00 12/23/16 22:00 Labs: Abnormal Lab Results - Last 24 Hours (Table) 12/23/16 12/23/16 12/23/16 Range/Units 22:00 22:00 22:00 MCV 101.9 H D (80.0-100.0) fL APTT 21.2 L (22.0-30.0) sec BUN 22 H (9-20) mg/dL Creatinine 1.26 H (0.66-1.25) mg/dL Glucose 113 H (74-99) mg/dL ALT 84 H (21-72) U/L Urine Opiates Screen (NotDetected) U Benzodiazepines Scrn (NotDetected) 12/24/16 Range/Units 03:30 MCV (80.0-100.0) fL APTT (22.0-30.0) sec BUN (9-20) mg/dL Creatinine (0.66-1.25) mg/dL Glucose (74-99) mg/dL ALT (21-72) U/L Urine Opiates Screen Detected H (NotDetected) U Benzodiazepines Scrn Detected H (NotDetected) Chest x-ray: report reviewed (Negative.) Assessment and Plan (1) Acute exacerbation of chronic obstructive airways disease Status: Acute Plan: Impression: 1. Medical debility. 2. Acute on chronic COPD. 3. Chronic neck and back pain. Comments and plan: At this time have discussed pain medication with nurse and we 'll plan for Dilaudid 1 mg every 4 when necessary, while in hospital. When patient returns home, should resume my pain medication Sanborn 10 4 times a day. Already discussed with patient. While patient remains in hospital, I will prescribe PT and OT prevent deconditioning and associated safety concerns. I anticipate patient will do well with PT and OT eval's.
[2016-12-24] MEDS: HYDROmorphone 1 MG/ML 1 ML SYRINGE IVP PRN ×2 (17:07→21:21)
[2016-12-24] MEDS: FAMOTIDINE 20 MG TAB PO SCH (21:25)
[2016-12-25] MEDS: HYDROcodone/APAP 10-325MG 1 EACH TAB PO PRN ×3 (00:05→12:47)
[2016-12-25] MEDS: HYDROmorphone 1 MG/ML 1 ML SYRINGE IVP PRN ×3 (03:10→11:04)
[2016-12-25] MEDS: IPRATROPIUM-ALBUTEROL 3 ML NEB INHALATION PRN (03:32)
[2016-12-25] MEDS: methylPREDNISolone SOD SUCCI 125 MG/2 ML VIAL IV SCH ×2 (06:07→11:31)
[2016-12-25 07:39] VITALS: BP 146/78; RESP 18; TEMP 97.1
[2016-12-25] MEDS: DESVENLAFAXINE SUCCINATE 50 MG TAB.ER.24H PO SCH (07:51)
[2016-12-25] MEDS: MONTELUKAST 10 MG TAB PO SCH (07:51)
[2016-12-25] MEDS: amLODIPine 5 MG TAB PO SCH (07:51)
[2016-12-25] MEDS: FAMOTIDINE 20 MG TAB PO SCH (07:51)
[2016-12-25] MEDS: ENOXAPARIN 40 MG/0.4 ML SYRINGE SQ SCH (07:52)
[2016-12-25] MEDS: ALPRAZolam 0.5 MG TAB PO SCH (07:52)
[2016-12-25] MEDS: guaiFENesin 600 MG TABLET.ER PO SCH (07:53)
[2016-12-25] MEDS: KETOCONAZOLE 2% SHAMPOO 1 APPLIC/ML TOPICAL SCH (07:54)
[2016-12-25 08:25] LABS: Basophils % (A) 0 %; CH 35.1; CHCM 33.8; Eosinophils % (A) 0 %; HGB 13.2 gm/dL (13.0-17.5); Luc # (Auto) 0.04; Luc % (Auto) 0; Lymphocytes # (A) 0.6 k/uL (1.0-4.8); Lymphocytes % (A) 6 %; MCH 34.5 pg (25.0-35.0); MCV 104.5 fL (80.0-100.0); Macrocytosis Moderate; Monocytes # (A) 0.3 k/uL (0-1.0); Monocytes % (A) 3 %; Neutrophils # (A) 9.1 k/uL (1.3-7.7); Neutrophils % (A) 91 %; RBC 3.83 m/uL (4.30-5.90); RDW 15.1 % (11.5-15.5); WBC (Perox) 10.65
[2016-12-25 08:50] LABS: ALT 49 U/L (21-72); AST 16 U/L (17-59); Alkaline Phosphatase 69 U/L (38-126); Anion Gap 10 mmol/L; Blood Urea Nitrogen 23 mg/dL (9-20); Calcium 8.9 mg/dL (8.4-10.2); Carbon Dioxide 23 mmol/L (22-30); Chloride 106 mmol/L (98-107); Glucose 168 mg/dL (74-99); Non-African American GFR(MDRD) >60 (>60 ml/min/1.73 sqM); Potassium 4.6 mmol/L (3.5-5.1); Sodium 139 mmol/L (137-145); Total Bilirubin 0.6 mg/dL (0.2-1.3); Total Protein 5.7 g/dL (6.3-8.2)
[2016-12-25] MEDS: SYMBICORT 160-4.5 MCG INHALER INHALATION SCH (09:22)
[2016-12-25] MEDS: IPRATROPIUM-ALBUTEROL 3 ML NEB INHALATION SCH ×2 (09:23→13:45)
[2016-12-25 09:27] VITALS: PULSE 80
--- NOTE | 2016-12-25 13:58 | P.PN ---
Subjective This is a 61-year-old male patient being evaluated and examined today on the fourth floor. Patient came into the emergency room with complaints of increasing shortness of breath over the last few days he was noted to be hypoxic on room air. The patient does not wear oxygen at home. Patient does use nebulizer treatments scheduled around the clock. Patient does have a history of severe COPD as well as obstructive sleep apnea. Chest x-ray was obtained and shows COPD with no acute pulmonary process. Upon examination the patient is resting up in bed on room air. Patient does complain of a productive cough, however it is less frequent and has improved significantly since admission. Patient denies any shortness of breath today. Patient is requesting to go home. Patient does state that he continues to have some dull back pain and he follows with Dr. Marcus for that. Objective - Vital Signs Vital signs: Vital Signs Temp 97.1 F L 12/25/16 07:00 Pulse 80 12/25/16 09:37 Resp 18 12/25/16 07:00 BP 146/78 12/25/16 07:00 Pulse Ox 94 L 12/25/16 08:49 Intake & Output 12/24/16 12/25/16 12/25/16 18:59 06:59 18:59 Intake Total 1100 Output Total 300 2200 Balance -300 -1100 Intake: Oral 1100 Output: Urine 300 2200 Other: Voiding Method Urinal Urinal # Voids 3 2 - Exam GENERAL EXAM: Alert, active, comfortable in no apparent distress. HEAD: Normocephalic. EYES: Normal reaction of pupils, equal size. NOSE: Clear with pink turbinates. THROAT: No erythema or exudates. NECK: No masses, no JVD. CHEST: No chest wall deformity. LUNGS: Lung sounds noted to be coarse and congested throughout, and expiratory wheezing noted. Bases diminished. CVS: S1 and S2 normal with no audible mumurs, regular rhythm. ABDOMEN: No hepatosplenomegaly, normal bowel sounds, no guarding or rigidity. EXTREMITIES: No edema noted, pedal pulses palpable. SKIN: No rashes CENTRAL NERVOUS SYSTEM: No focal deficits, tone is normal in all 4 extremities. - Labs CBC & Chem 7: 12/25/16 07:51 12/25/16 07:51 Labs: Abnormal Lab Results - Last 24 Hours (Table) 12/25/16 12/25/16 Range/Units 07:51 07:51 RBC 3.83 L (4.30-5.90) m/uL MCV 104.5 H (80.0-100.0) fL Neutrophils # 9.1 H (1.3-7.7) k/uL Lymphocytes # 0.6 L (1.0-4.8) k/uL BUN 23 H (9-20) mg/dL Glucose 168 H (74-99) mg/dL AST 16 L (17-59) U/L Total Protein 5.7 L (6.3-8.2) g/dL Albumin 3.4 L (3.5-5.0) g/dL Assessment and Plan Plan: Assessment Acute exacerbation of COPD Acute hypoxic respiratory failure Tracheobronchitis Obstructive sleep apnea Chronic moderate persistent asthma History of hypertension, hypertensive cardiovascular disease Chronic pain syndrome Plan Patient could be discharged home from a pulmonary standpoint. Patient will need oral steroids. Medications have been reviewed and will be continued as ordered. Continue with pulmonary hygiene, coughing and deep breathing exercises , and supportive care. Mucinex to help with secretions. Supplemental oxygen to maintain oxygen saturations of 92% or better. Initiate and encourage incentive spirometer. Continue nebulizer treatments. GI and DVT prophylaxis. We will continue to monitor labs/results and adjust treatment as necessary. Further recommendations pending. I performed an examination of the patient and discussed their management with the nurse practitioner. I have reviewed the nurse practitioner's note and agree with the documented findings and plan of care.
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
[2016-12-25] MEDS ORDERED: methylPREDNISolone SOD SUCCI 40 MG/ML 1 ML VIAL IV SCH (16:00)
== END 2016-12-25 14:32 | disposition home or self-care (01) | DRG 190 ==
LOC: EC 21:35 → 4MS4W 23:38
PROVIDERS: ADMIT Family Medicine; ATTEND Family Medicine
DX: J44.0 Chronic obstructive pulmonary disease with (acute) lower respiratory infection (principal); J96.01 Acute respiratory failure with hypoxia; N17.9 Acute kidney failure, unspecified; I48.92 Unspecified atrial flutter; J44.1 Chronic obstructive pulmonary disease with (acute) exacerbation; J40 Bronchitis, not specified as acute or chronic; G47.33 Obstructive sleep apnea (adult) (pediatric); J45.40 Moderate persistent asthma, uncomplicated; K21.9 Gastro-esophageal reflux disease without esophagitis; Z87.891 Personal history of nicotine dependence; F32.9 Major depressive disorder, single episode, unspecified; M54.2 Cervicalgia; F41.0 Panic disorder [episodic paroxysmal anxiety]; M19.91 Primary osteoarthritis, unspecified site; G89.4 Chronic pain syndrome; M54.5 Low back pain; I25.10 Atherosclerotic heart disease of native coronary artery without angina pectoris; I11.9 Hypertensive heart disease without heart failure; Z90.49 Acquired absence of other specified parts of digestive tract; Z91.010 Allergy to peanuts; Z88.9 Allergy status to unspecified drugs, medicaments and biological substances; Z79.899 Other long term (current) drug therapy
CPT/HCPCS: 36415; 71010; 80053; 80306; 82550; 82553; 83735; 83880; 84484; 85025; 85610; 85730; 93005; 94640; 94644; 94760

== ENCOUNTER 2017-02-27 22:08 | Emergency (ER) | payer MEDICARE, OTHER ==
[2017-02-27 22:13] VITALS: TEMP 97.7
[2017-02-27] MEDS ORDERED: HYDROcodone/APAP 5-325MG 1 EACH TAB PO STA ×2 (23:50→23:57)
--- NOTE | 2017-02-27 23:55 | ED ---
Neck Injury/Pain HPI - General Chief Complaint: Neck Pain/Injury Stated Complaint: Neck Injury Time Seen by Provider: 02/27/17 23:04 Source: RN notes reviewed Mode of arrival: ambulatory Limitations: no limitations - History of Present Illness Initial Comments: Patient is a 61-year-old male presents to the emergency room for evaluation fall injury. Patient states he was sitting at a picnic table in fell to the side hitting the left side of his neck and ribs. Patient states she has a history of chronic neck pain. Patient states he takes [place] daily for chronic pain. Patient states after the fall he has been having worsening neck pain. Patient denies head trauma, loss of consciousness, headache, dizziness, nausea, vomiting. Patient denies paresthesias or weakness. Patient states he's having pain on the left side of his rib area. Patient states pain is worse when he takes a deep breath. Patient does admit that he has history of COPD. Patient denies worsening shortness of breath. Patient denies any other injuries during incident. - Related Data Home Medications Medication Instructions Recorded Confirmed Montelukast [Singulair] 10 mg PO DAILY 03/16/14 12/23/16 amLODIPine [Norvasc] 5 mg PO QAM 07/05/14 12/23/16 ALPRAZolam [Xanax] 1 mg PO TID 09/20/15 12/23/16 Fluticasone/Vilanterol [Breo 1 puff INHALATION RT-DAILY 07/16/16 12/23/16 Ellipta 100-25 Mcg Inhaler] Desvenlafaxine [Pristiq ER] 100 mg PO DAILY 09/23/16 12/23/16 Ketoconazole 2% Shampoo [Nizoral] 1 applic TOPICAL DAILY 10/08/16 12/23/16 Umeclidinium [place] [Incruse 1 puff INHALATION RT-DAILY 10/08/16 12/23/16 Ellipta] Hydrocodone/Acetaminophen [[place] 1 tab PO QID PRN 11/06/16 12/23/16 10-325] Previous Rx's Medication Instructions Recorded guaiFENesin [Mucinex] 1,200 mg PO Q12HR #14 tab 12/25/16 predniSONE 0 mg PO DIRECTED #30 tab 12/25/16 Allergies Allergy/AdvReac Type Severity Reaction Status Date / Time peanut Allergy alg testing Verified 02/27/17 22:13 pollen extracts Allergy Unknown Verified 02/27/17 22:13 DUST Allergy alg testing Uncoded 02/27/17 22:13 Review of Systems ROS Statement: Those systems with pertinent positive or pertinent negative responses have been documented in the HPI. ROS Other: All systems not noted in ROS Statement are negative. Past Medical History Past Medical History: Atrial Flutter, Asthma, Chest Pain / Angina, COPD, GERD/ Reflux, Hypertension, Osteoarthritis (OA), Pneumonia, Sleep Apnea/CPAP/BIPAP Additional Past Medical History / Comment(s): Chronic neck and back pain History of Any Multi-Drug Resistant Organisms: None Reported Past Surgical History: Adenoidectomy, Bowel Resection, Cholecystectomy Additional Past Surgical History / Comment(s): REMOVAL OF UVULA. bowel resection for large polyps, colonoscopy with polypectomies, nasal surgery x 2, bronchoscopy with lung bx, pain clinic procedures. Past Anesthesia/Blood Transfusion Reactions: Previous Problems w/ Anesthesia Additional Past Anesthesia/Blood Transfusion Reaction / Comment(s): states "during procedure of checking something on my left lung,I turned blue and I was brought right back out anesthesia and proc was cancelled" Past Psychological History: Anxiety, Bipolar, Depression, Panic Disorder Smoking Status: Never smoker Past Alcohol Use History: Occasional Past Drug Use History: None Reported - Past Family History Mother Family Medical History: Asthma Father Family Medical History: CVA/TIA General Exam - General Exam Comments Initial Comments: Sitting in exam room, no acute distress. Limitations: no limitations General appearance: alert, in no apparent distress Head exam: Present: atraumatic, normocephalic, normal inspection Eye exam: Present: normal appearance, PERRL, EOMI Pupils: Present: normal accommodation ENT exam: Present: normal exam Neck exam: Present: normal inspection, tenderness (Tenderness on palpating over left trapezius muscle), full ROM Respiratory exam: Present: normal lung sounds bilaterally, chest wall tenderness (Reproducible chest wall tenderness over the left anterior lateral ribs). Absent: respiratory distress Cardiovascular Exam: Present: regular rate, normal rhythm, normal heart sounds Extremities exam: Present: normal inspection Back exam: Present: normal inspection Neurological exam: Present: alert, oriented X3, CN II-XII intact, normal gait Psychiatric exam: Present: normal affect, normal mood Skin exam: Present: warm, dry, intact, normal color. Absent: rash Course Vital Signs 02/27/17 02/27/17 02/28/17 22:10 23:40 01:21 Temperature 97.7 F Pulse Rate 114 H 98 91 Respiratory 18 20 18 Rate Blood Pressure 141/75 146/88 152/88 O2 Sat by Pulse 94 L 94 L 95 Oximetry Medical Decision Making - Medical Decision Making Patient is a 61-year-old male presents emergency room for evaluation of neck pain and left rib pain. Patient does have chronic back pain. Cervical spine x- ray shows no acute findings. Chest x-ray showed no acute findings. Patient advised to continue taking pain medications at home and follow-up with primary care provider Wednesday. Patient states she understands everything that was discussed with him. Return parameters discussed. Case discussed Dr. Gross. - Radiology Data Radiology results: report reviewed, image reviewed Disposition Clinical Impression: Fall, Chronic neck pain, Contusion of rib on left side Disposition: HOME SELF-CARE Condition: Good Instructions: Rib Contusion (ED), Neck Pain (ED) Additional Instructions: Continue taking at home pain medications as needed. Ice on and off for 20 minutes at a time for the next 24-48 hours. Please follow up with primary care provider in 1-2 days. If any new symptom arises or symptoms worsen, return to ER as soon as possible. Referrals: Michael Nuñez MD [Primary Care Provider] - 1-2 days Time of Disposition: 01:14
--- NOTE | 2017-02-28 00:51 | XR ---
EXAM: Chest PA and lateral views INDICATION: Pain COMPARISON: 11/06/2016 FINDINGS: PA and lateral views of the chest are obtained. The cardiomediastinal silhouette is within normal limits. Atelectasis present in both lung bases. No pneumothorax or pleural effusions. Bony elements are intact as visualized. IMPRESSION: No acute cardiopulmonary disease.
--- NOTE | 2017-02-28 00:59 | XR ---
EXAM: Cervical Spine, 7 views INDICATION: 61-year-old male, neck pain. COMPARISON: 10/21/2016 cervical spine radiographs. FINDINGS: Multiple views of the cervical spine are obtained. No evidence for acute fracture or dislocation. Evaluation of the dens limited due to overlying structures. The C6-C7 and C7-T1 levels are not well-visualized secondary to overlapping structures. Vertebral body height are maintained. Stable alignment of the cervical spine with anterolisthesis of C2 on C3 and C3 on C4, as before. Multilevel loss of disc and associated endplate sclerotic and hypertrophic changes are noted. Posterior element appear intact and normally aligned. There is facet arthropathy, as before. Arterial calcifications are noted. Prevertebral soft tissues otherwise unremarkable. IMPRESSION: Limited examination with no evidence of acute fracture or dislocation.
[2017-02-28 01:22] VITALS: BP 152/88; PULSE 91; RESP 18
== END 2017-02-28 01:22 | disposition home or self-care (01) ==
LOC: EC 22:08
DX: S20.212A Contusion of left front wall of thorax, initial encounter (principal); M54.2 Cervicalgia; J45.909 Unspecified asthma, uncomplicated; J44.9 Chronic obstructive pulmonary disease, unspecified; I10 Essential (primary) hypertension; F41.9 Anxiety disorder, unspecified; Z79.51 Long term (current) use of inhaled steroids; Z79.899 Other long term (current) drug therapy; Z91.010 Allergy to peanuts; Z91.048 Other nonmedicinal substance allergy status; W08.XXXA Fall from other furniture, initial encounter; Y92.89 Other specified places as the place of occurrence of the external cause
CPT/HCPCS: 71020; 72050; 93005; 99283

== ENCOUNTER 2017-05-02 22:21 | Emergency (ER) | payer MEDICARE, OTHER ==
[2017-05-02 22:31] VITALS: RESP 20
[2017-05-02] MEDS ORDERED: HYDROcodone/APAP 7.5-325MG 1 EACH TAB PO ONE (23:03)
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
[2017-05-02] MEDS ORDERED: IPRATROPIUM-ALBUTEROL 3 ML NEB INHALATION STA (23:42)
--- NOTE | 2017-05-03 00:01 | XR ---
History: Reason: Pain Exam: XR L SPINE 6 images Comparison: 10/08/2016 FINDINGS: No evidence of acute fracture or malalignment. Spondylosis noted. Nonspecific L2 small 8 mm sclerotic focus again seen and appears unchanged. IMPRESSION: No evidence of acute fracture or malalignment.
[2017-05-03] MEDS ORDERED: HYDROmorphone 1 MG/ML 1 ML SYRINGE IVP STA (00:14)
[2017-05-03 00:35] VITALS: BP 123/70; PULSE 82; TEMP 97
== END 2017-05-03 00:35 | disposition home or self-care (01) ==
LOC: EC 22:21
DX: M54.5 Low back pain (principal); J45.909 Unspecified asthma, uncomplicated; J44.1 Chronic obstructive pulmonary disease with (acute) exacerbation; I10 Essential (primary) hypertension; F32.9 Major depressive disorder, single episode, unspecified; F41.0 Panic disorder [episodic paroxysmal anxiety]; Z91.010 Allergy to peanuts; Z91.048 Other nonmedicinal substance allergy status; Z91.09 Other allergy status, other than to drugs and biological substances; Z79.51 Long term (current) use of inhaled steroids; Z79.899 Other long term (current) drug therapy; W10.9XXA Fall (on) (from) unspecified stairs and steps, initial encounter; Y92.008 Other place in unspecified non-institutional (private) residence as the place of occurrence of the external cause
CPT/HCPCS: 99284 ×2; 96374 ×2; 94640; 72110; J1170

== ENCOUNTER 2017-05-05 23:40 | Emergency (ER) | payer MEDICARE, OTHER ==
[2017-05-06] MEDS ORDERED: ORPHENADRINE 30 MG/ML 2 ML VIAL IM STA (01:52)
[2017-05-06] MEDS ORDERED: MORPHINE SULFATE 10 MG/ML SYRINGE IM STA (01:52)
[2017-05-06] MEDS ORDERED: KETOROLAC 60 MG/2 ML VIAL IM STA (01:52)
--- NOTE | 2017-05-06 02:29 | ED ---
Back Pain HPI - General Chief Complaint: Back Pain/Injury Stated Complaint: Revisit-Back Pain/GREGG Time Seen by Provider: 05/06/17 01:20 Source: patient, RN notes reviewed, old records reviewed Limitations: no limitations - History of Present Illness Initial Comments: [id number] male since Wednesday chief complaint of acute exacerbation of chronic back pain. Patient reports that he will be out of his pain medication tomorrow. Patient states that he gets a refill on Wednesday. Patient states that he has had no saddle anesthesias, denies any urinary or bowel incontinence. Patient reports that the pain became increasingly painful he can possibly. He also reports a sudden more frequent urination. Patient also complains of a rash in his groin area. He states it's very. Neck. Patient states is been going on for months. Patient denies any fever or chills, worsening chest pain. He does have a history of PDA has chronic shortness of breath. He does use his inhalers regularly. Denies any headache, abdominal pain, nausea or vomiting. - Related Data Home Medications Medication Instructions Recorded Confirmed Montelukast [Singulair] 10 mg PO DAILY 03/16/14 05/02/17 amLODIPine [Norvasc] 5 mg PO QAM 07/05/14 05/02/17 ALPRAZolam [Xanax] 1 mg PO TID 09/20/15 05/02/17 Fluticasone/Vilanterol [Breo 1 puff INHALATION RT-DAILY 07/16/16 05/02/17 Ellipta 100-25 Mcg Inhaler] Desvenlafaxine [Pristiq ER] 100 mg PO DAILY 09/23/16 05/02/17 Ketoconazole 2% Shampoo [Nizoral] 1 applic TOPICAL DAILY 10/08/16 05/02/17 Umeclidinium [place] [Incruse 1 puff INHALATION RT-DAILY 10/08/16 05/02/17 Ellipta] Hydrocodone/Acetaminophen [[place] 1 tab PO QID PRN 11/06/16 05/02/17 10-325] Previous Rx's Medication Instructions Recorded guaiFENesin [Mucinex] 1,200 mg PO Q12HR #14 tab 12/25/16 predniSONE 0 mg PO DIRECTED #30 tab 12/25/16 Nystatin 100,000 Unit/gm Powd 1 applic TOPICAL BID #1 bottle 05/06/17 [Mycostatin Powder] Allergies Allergy/AdvReac Type Severity Reaction Status Date / Time peanut Allergy alg testing Verified 05/06/17 00:04 pollen extracts Allergy Unknown Verified 05/06/17 00:04 DUST Allergy alg testing Uncoded 05/06/17 00:04 Review of Systems ROS Statement: Those systems with pertinent positive or pertinent negative responses have been documented in the HPI. ROS Other: All systems not noted in ROS Statement are negative. Past Medical History Past Medical History: Atrial Flutter, Asthma, Chest Pain / Angina, COPD, GERD/ Reflux, Hypertension, Osteoarthritis (OA), Pneumonia, Sleep Apnea/CPAP/BIPAP Additional Past Medical History / Comment(s): Chronic neck and back pain History of Any Multi-Drug Resistant Organisms: None Reported Past Surgical History: Adenoidectomy, Bowel Resection, Cholecystectomy Additional Past Surgical History / Comment(s): REMOVAL OF UVULA. bowel resection for large polyps, colonoscopy with polypectomies, nasal surgery x 2, bronchoscopy with lung bx, pain clinic procedures. Past Anesthesia/Blood Transfusion Reactions: Previous Problems w/ Anesthesia Additional Past Anesthesia/Blood Transfusion Reaction / Comment(s): states "during procedure of checking something on my left lung,I turned blue and I was brought right back out anesthesia and proc was cancelled" Past Psychological History: Anxiety, Bipolar, Depression, Panic Disorder Smoking Status: Never smoker Past Alcohol Use History: Occasional Past Drug Use History: None Reported - Past Family History Mother Family Medical History: Asthma Father Family Medical History: CVA/TIA General Exam - General Exam Comments Initial Comments: well-appearing 7-year-old male. No distress. Limitations: no limitations General appearance: alert, in no apparent distress Head exam: Present: atraumatic, normocephalic, normal inspection Eye exam: Present: normal appearance, PERRL, EOMI. Absent: scleral icterus, conjunctival injection, periorbital swelling ENT exam: Present: normal exam, mucous membranes moist Neck exam: Present: normal inspection. Absent: tenderness, meningismus, lymphadenopathy Respiratory exam: Present: normal lung sounds bilaterally, wheezes (minor wheezing noted. Patient has history of COPD.). Absent: respiratory distress, rales, rhonchi, stridor Cardiovascular Exam: Present: regular rate, normal rhythm, normal heart sounds. Absent: systolic murmur, diastolic murmur, rubs, gallop, clicks Extremities exam: Present: normal inspection, full ROM, normal capillary refill. Absent: tenderness, pedal edema, joint swelling, calf tenderness Back exam: Present: normal inspection, full ROM, vertebral tenderness (lumbar vertebral tenderness.) Neurological exam: Present: alert, oriented X3, CN II-XII intact Psychiatric exam: Present: normal affect, normal mood Skin exam: Present: warm, dry, intact, normal color, rash (erythematous satellite lesions over her groin. Rash is consistent with skin candidiasis.) Course Vital Signs 05/06/17 05/06/17 00:02 03:15 Temperature 98.8 F 97.8 F Pulse Rate 97 89 Respiratory 20 18 Rate Blood Pressure 182/95 178/85 O2 Sat by Pulse 93 L 95 Oximetry Medical Decision Making - Medical Decision Making this is a 7-year-old male chief complaint of running out of his pain medication acute exacerbation of chronic pain. Patient had a little lower lumbar x-ray 2 days ago after a fall. I was negative for any acute abdomen. Patient has no selling shoes. Patient has been ambulating normally in the emergency department. He also complains of frequent urination. Urinalysis obtained. Negative for any signs of infection or glucosuria. Patient also does have a candidal rash in groin area. Discusses instructed. Patient be discharged with a nystatin cream. Discussed that he needs to keep the area clean and dry. At this time patient received IM Toradol and Norflex for pain. Discussed that I will not write a further pain prescription for him. Discussed that he needs to follow-up with his primary care provider and get his prescription filled. Patient agrees to treatment plan will comply. Return parameters were discussed. - Lab Data Lab Results 05/06/17 Range/Units 02:27 Urine Color Yellow Urine Appearance Cloudy (Clear) Urine pH 6.0 (5.0-8.0) Ur Specific [place] 1.023 (1.001-1.035) Urine Protein 1+ H (Negative) Urine Glucose (UA) Negative (Negative) Urine Ketones Negative (Negative) Urine Blood Trace H (Negative) Urine Nitrite Negative (Negative) Urine Bilirubin Negative (Negative) Urine Urobilinogen <2.0 (<2.0) mg/dL Ur Leukocyte Esterase Negative (Negative) Urine RBC 1 (0-5) /hpf Urine WBC 5 (0-5) /hpf Urine Bacteria Rare H (None) /hpf Cellular Casts 1 (0) /lpf Hyaline Casts 1 (0-2) /lpf Urine Mucus Many H (None) /hpf Disposition Clinical Impression: Acute exacerbation of chronic low back pain, Jock itch Disposition: HOME SELF-CARE Condition: Good Instructions: Chronic Back Pain (ED) Additional Instructions: patient advised to take her at home pain medication. Alternate Motrin and Tylenol between. Return to the emergency department if any alarming signs or symptoms occur. Prescriptions: Nystatin 100,000 Unit/gm Powd [Mycostatin Powder] 1 applic TOPICAL BID #1 bottle Referrals: Michael Nuñez MD [Primary Care Provider] - 1-2 days Time of Disposition: 02:27
[2017-05-06 02:55] LABS: Appearance,Urine Cloudy (Clear); Bacteria,Urine Rare /hpf; Bilirubin,Urine Negative (Negative); Glucose,Urine (UA) Negative (Negative); Ketones,Urine Negative (Negative); Leukocyte Esterase,Urine Negative (Negative); Mucus,Urine Many /hpf; Nitrite,Urine Negative (Negative); Particle Count 3938; Protein,Urine 1+ (Negative); RBC,Urine 1 /hpf (0-5); Specific Gravity,Urine 1.023 (1.001-1.035); UA Billing (MACRO vs. MICRO) MICRO; Urobilinogen,Urine <2.0 mg/dL (<2.0); WBC,Urine 5 /hpf (0-5)
[2017-05-06 03:16] VITALS: BP 178/85; PULSE 89; RESP 18; TEMP 97.8
== END 2017-05-06 03:16 | disposition home or self-care (01) ==
LOC: EC 23:40
DX: M54.9 Dorsalgia, unspecified (principal); G89.29 Other chronic pain; B35.6 Tinea cruris; I48.92 Unspecified atrial flutter; J45.909 Unspecified asthma, uncomplicated; I10 Essential (primary) hypertension; G47.30 Sleep apnea, unspecified; Z99.89 Dependence on other enabling machines and devices; F41.0 Panic disorder [episodic paroxysmal anxiety]; F32.9 Major depressive disorder, single episode, unspecified; Z79.51 Long term (current) use of inhaled steroids; Z79.899 Other long term (current) drug therapy; Z91.010 Allergy to peanuts; Z91.048 Other nonmedicinal substance allergy status
CPT/HCPCS: 99284 ×2; 96372 ×4; 81001; J2360; J2270; J1885

== ENCOUNTER 2017-05-12 00:15 | Emergency (ER) | payer MEDICARE, OTHER ==
[2017-05-12 00:20] VITALS: BP 136/72; RESP 20; TEMP 98.2
[2017-05-12] MEDS ORDERED: IPRATROPIUM-ALBUTEROL 3 ML NEB INHALATION STA (00:45)
[2017-05-12] MEDS ORDERED: methylPREDNISolone SOD SUCCI 125 MG/2 ML VIAL IM ONE (00:48)
[2017-05-12] MEDS ORDERED: ORPHENADRINE 30 MG/ML 2 ML VIAL IM STA (00:49)
[2017-05-12] MEDS ORDERED: KETOROLAC 30 MG/ML 1 ML VIAL IM STA (00:49)
[2017-05-12] MEDS ORDERED: HYDROcodone/APAP 10-325MG 1 EACH TAB PO ONE (00:49)
[2017-05-12 01:03] VITALS: PULSE 87
--- NOTE | 2017-05-12 01:25 | XR ---
EXAMINATION TYPE: XR chest 2V DATE OF EXAM: 05/12/2017 COMPARISON: 02/28/2017 HISTORY: Back pain TECHNIQUE: Frontal and lateral views of the chest are obtained. FINDINGS: There is no heart failure nor confluent pneumonic infiltrate. Bony thorax is intact. Costo phrenic angles are clear. IMPRESSION: No active cardiopulmonary disease. No significant change compared to old exam.
--- NOTE | 2017-05-12 01:32 | ED ---
General Adult HPI - General Chief complaint: Back Pain/Injury Stated complaint: Back Pain-GREGG Time Seen by Provider: 05/12/17 00:28 Source: patient, RN notes reviewed, old records reviewed Mode of arrival: ambulatory Limitations: no limitations - History of Present Illness Initial comments: 7-year-old male well-known to the emergency department today with chief complaining of chronic back pain and difficulty breathing. He has no history of COPD. Hasn't taking his breathing treatments. No recent use of steroids. Patient states that he just can't get to sleep tonight because of the pain. He reports he is on a pain contract and has [place] 10 every 6 hours. That does not help with his pain at this time, he does have a follow-up appointment with pain management within the next week. Patient states that he's been taking his medication faithfully and has not been overdosing on his pain meds.Patient denies any recent fever, chills, chest pain, , abdominal pain, nausea vomiting, numbness or tingling, dysuria or hematuria, constipation or diarrhea, headaches or visual changes, or any other current symptoms - Related Data Home Medications Medication Instructions Recorded Confirmed Montelukast [Singulair] 10 mg PO DAILY 03/16/14 05/02/17 amLODIPine [Norvasc] 5 mg PO QAM 07/05/14 05/02/17 ALPRAZolam [Xanax] 1 mg PO TID 09/20/15 05/02/17 Fluticasone/Vilanterol [Breo 1 puff INHALATION RT-DAILY 07/16/16 05/02/17 Ellipta 100-25 Mcg Inhaler] Desvenlafaxine [Pristiq ER] 100 mg PO DAILY 09/23/16 05/02/17 Ketoconazole 2% Shampoo [Nizoral] 1 applic TOPICAL DAILY 10/08/16 05/02/17 Umeclidinium [place] [Incruse 1 puff INHALATION RT-DAILY 10/08/16 05/02/17 Ellipta] Hydrocodone/Acetaminophen [[place] 1 tab PO QID PRN 11/06/16 05/02/17 10-325] Previous Rx's Medication Instructions Recorded guaiFENesin [Mucinex] 1,200 mg PO Q12HR #14 tab 12/25/16 predniSONE 0 mg PO DIRECTED #30 tab 12/25/16 Nystatin 100,000 Unit/gm Powd 1 applic TOPICAL BID #1 bottle 05/06/17 [Mycostatin Powder] predniSONE 50 mg PO DAILY #5 tablet 05/12/17 Allergies Allergy/AdvReac Type Severity Reaction Status Date / Time peanut Allergy alg testing Verified 05/12/17 00:20 pollen extracts Allergy Unknown Verified 05/12/17 00:20 DUST Allergy alg testing Uncoded 05/12/17 00:20 Review of Systems ROS Statement: Those systems with pertinent positive or pertinent negative responses have been documented in the HPI. ROS Other: All systems not noted in ROS Statement are negative. Past Medical History Past Medical History: Atrial Flutter, Asthma, Chest Pain / Angina, COPD, GERD/ Reflux, Hypertension, Osteoarthritis (OA), Pneumonia, Sleep Apnea/CPAP/BIPAP Additional Past Medical History / Comment(s): Chronic neck and back pain History of Any Multi-Drug Resistant Organisms: None Reported Past Surgical History: Adenoidectomy, Bowel Resection, Cholecystectomy Additional Past Surgical History / Comment(s): REMOVAL OF UVULA. bowel resection for large polyps, colonoscopy with polypectomies, nasal surgery x 2, bronchoscopy with lung bx, pain clinic procedures. Past Anesthesia/Blood Transfusion Reactions: Previous Problems w/ Anesthesia Additional Past Anesthesia/Blood Transfusion Reaction / Comment(s): states "during procedure of checking something on my left lung,I turned blue and I was brought right back out anesthesia and proc was cancelled" Past Psychological History: Anxiety, Bipolar, Depression, Panic Disorder Smoking Status: Never smoker Past Alcohol Use History: Occasional Past Drug Use History: None Reported - Past Family History Mother Family Medical History: Asthma Father Family Medical History: CVA/TIA General Exam - General Exam Comments Initial Comments: 61-year-old male. No acute distress. Limitations: no limitations General appearance: alert, in no apparent distress Head exam: Present: atraumatic, normocephalic, normal inspection Eye exam: Present: normal appearance, PERRL, EOMI. Absent: scleral icterus, conjunctival injection, periorbital swelling ENT exam: Present: normal exam, mucous membranes moist Neck exam: Present: normal inspection. Absent: tenderness, meningismus, lymphadenopathy Respiratory exam: Present: normal lung sounds bilaterally, wheezes (Minor wheezing and rhonchi.), rhonchi. Absent: respiratory distress, rales, stridor Cardiovascular Exam: Present: regular rate, normal rhythm, normal heart sounds. Absent: systolic murmur, diastolic murmur, rubs, gallop, clicks GI/Abdominal exam: Present: soft, normal bowel sounds. Absent: distended, tenderness, guarding, rebound, rigid Extremities exam: Present: normal inspection, full ROM, normal capillary refill. Absent: tenderness, pedal edema, joint swelling, calf tenderness Back exam: Present: normal inspection Neurological exam: Present: alert, oriented X3, CN II-XII intact Psychiatric exam: Present: normal affect, normal mood Skin exam: Present: warm, dry, intact, normal color. Absent: rash Course Vital Signs 05/12/17 05/12/17 05/12/17 00:18 01:02 01:10 Temperature 98.2 F Pulse Rate 94 87 87 Respiratory 20 Rate Blood Pressure 136/72 O2 Sat by Pulse 93 L Oximetry Medical Decision Making - Medical Decision Making 7-year-old male presents emergency Department chief complaint acute exacerbation of chronic back pain as well as difficulty breathing. Patient does have some minor wheezing on exam. DuoNeb treatment completed. Resolution of wheezing. Patient was given IM Solu-Medrol and Norflex. Patient also given by mouth [place] as he takes this at home for pain. Patient chest x-ray was reviewed and negative for any acute process. Patient will be discharged at this time advised to take at home pain medicine. Patient is explained That he cannot come to the emergency department for pain injections regularly, discussed following up with his pain management doctor in regards to his chronic pain. Patient will be discharged with by mouth steroids for COPD as well as advised to continue his at home breathing treatments. Patient will be discharged at this time With close follow up with PCP. - Radiology Data Radiology results: report reviewed Chest x-ray was reviewed and negative for any acute process. Disposition Clinical Impression: Chronic pain, COPD exacerbation Disposition: HOME SELF-CARE Condition: Good Instructions: Chronic Back Pain (ED) Additional Instructions: Patient has a follow-up with your primary care provider. Return to emergency department if any alarming signs or symptoms occur. Prescriptions: predniSONE 50 mg PO DAILY #5 tablet Referrals: Michael Nuñez MD [Primary Care Provider] - 1-2 days Time of Disposition: 01:50
[2017-05-12] MEDS ORDERED: CYCLOBENZAPRINE 10MG STARTER 3 TAB BTL PO STA (01:50)
[2017-05-12] MEDS ORDERED: HYDROmorphone 1 MG/ML 1 ML SYRINGE IM STA (01:54)
== END 2017-05-12 02:05 | disposition home or self-care (01) ==
LOC: EC 00:15
DX: J44.1 Chronic obstructive pulmonary disease with (acute) exacerbation (principal); G89.29 Other chronic pain; M54.9 Dorsalgia, unspecified; I48.92 Unspecified atrial flutter; J45.909 Unspecified asthma, uncomplicated; I10 Essential (primary) hypertension; F41.9 Anxiety disorder, unspecified; F32.9 Major depressive disorder, single episode, unspecified; G47.30 Sleep apnea, unspecified; Z99.89 Dependence on other enabling machines and devices; Z79.51 Long term (current) use of inhaled steroids; Z79.899 Other long term (current) drug therapy; Z91.010 Allergy to peanuts; Z91.048 Other nonmedicinal substance allergy status
CPT/HCPCS: 99284 ×2; 96372 ×5; 94640; 71020; J2360; J2930; J1885; J1170

== ENCOUNTER 2017-06-27 21:40 | Emergency (ER) | payer MEDICARE, OTHER ==
[2017-06-27] MEDS ORDERED: KETOROLAC 60 MG/2 ML VIAL IM STA (23:41)
[2017-06-27] MEDS ORDERED: ORPHENADRINE 30 MG/ML 2 ML VIAL IM STA (23:41)
[2017-06-27] MEDS ORDERED: HYDROcodone/APAP 10-325MG 1 EACH TAB PO ONE (23:41)
--- NOTE | 2017-06-27 23:55 | ED ---
Back Pain HPI - General Chief Complaint: Back Pain/Injury Stated Complaint: Back Pain Time Seen by Provider: 06/27/17 22:24 Source: patient Limitations: no limitations - History of Present Illness Initial Comments: This patient is a 61-year-old man who presents with exacerbation of his chronic neck and back pain. The patient states that he hadn't taken a [place] as he was out. The patient states that this is his usual pain that is coming back after his Medication off. He is requesting a shot so that he'll be able to rest. Patient denies any chest or abdominal symptoms. He is not having loss of control of bladder or bowel. MD Complaint: back pain -: days(s) Similar Symptoms Previously: Yes Place: home Radiation: none Severity: severe Quality: burning Consistency: constant Improves With: none Worsens With: movement Associated Symptoms: denies other symptoms - Related Data Home Medications Medication Instructions Recorded Confirmed Montelukast [Singulair] 10 mg PO DAILY 03/16/14 06/27/17 amLODIPine [Norvasc] 5 mg PO QAM 07/05/14 06/27/17 ALPRAZolam [Xanax] 1 mg PO TID 09/20/15 06/27/17 Fluticasone/Vilanterol [Breo 1 puff INHALATION RT-DAILY 07/16/16 06/27/17 Ellipta 100-25 Mcg Inhaler] Desvenlafaxine [Pristiq ER] 100 mg PO DAILY 09/23/16 06/27/17 Umeclidinium [place] [Incruse 1 puff INHALATION RT-DAILY 10/08/16 06/27/17 Ellipta] Hydrocodone/Acetaminophen [[place] 1 tab PO QID PRN 11/06/16 06/27/17 10-325] Albuterol Inhaler [Ventolin Hfa 2 puff INHALATION RT-QID PRN 05/28/17 06/27/17 Inhaler] Famotidine [Pepcid] 20 mg PO DAILY 05/28/17 06/27/17 Lurasidone HCl [[place]] 20 mg PO DAILY 06/27/17 06/27/17 Allergies Allergy/AdvReac Type Severity Reaction Status Date / Time peanut Allergy alg testing Verified 06/27/17 22:13 pollen extracts Allergy Unknown Verified 06/27/17 22:13 DUST Allergy alg testing Uncoded 06/27/17 21:46 Review of Systems ROS Statement: Those systems with pertinent positive or pertinent negative responses have been documented in the HPI. ROS Other: All systems not noted in ROS Statement are negative. Constitutional: Denies: fever, chills, weakness Respiratory: Denies: cough, dyspnea Cardiovascular: Denies: chest pain Gastrointestinal: Denies: abdominal pain, vomiting, diarrhea Genitourinary: Denies: dysuria Musculoskeletal: Reports: as per HPI, back pain Skin: Denies: rash Neurological: Denies: headache, weakness, numbness Past Medical History Past Medical History: Atrial Flutter, Asthma, Chest Pain / Angina, COPD, GERD/ Reflux, Hypertension, Osteoarthritis (OA), Pneumonia, Sleep Apnea/CPAP/BIPAP Additional Past Medical History / Comment(s): Chronic neck and back pain History of Any Multi-Drug Resistant Organisms: None Reported Past Surgical History: Adenoidectomy, Bowel Resection, Cholecystectomy Additional Past Surgical History / Comment(s): REMOVAL OF UVULA. bowel resection for large polyps, colonoscopy with polypectomies, nasal surgery x 2, bronchoscopy with lung bx, pain clinic procedures. Past Anesthesia/Blood Transfusion Reactions: Previous Problems w/ Anesthesia Additional Past Anesthesia/Blood Transfusion Reaction / Comment(s): states "during procedure of checking something on my left lung,I turned blue and I was brought right back out anesthesia and proc was cancelled" Past Psychological History: Anxiety, Bipolar, Depression, Panic Disorder Smoking Status: Former smoker Past Alcohol Use History: Occasional Past Drug Use History: None Reported - Past Family History Mother Family Medical History: Asthma Father Family Medical History: CVA/TIA General Exam Limitations: no limitations General appearance: alert, in no apparent distress Neck exam: Present: normal inspection, full ROM. Absent: tenderness GI/Abdominal exam: Present: soft. Absent: distended, tenderness, guarding, rebound, pulsatile mass Back exam: Present: normal inspection, paraspinal tenderness. Absent: CVA tenderness (R), CVA tenderness (L), vertebral tenderness Neurological exam: Present: normal gait, reflexes normal. Absent: motor sensory deficit Skin exam: Present: warm, dry, intact, normal color. Absent: rash Course Vital Signs 06/27/17 06/27/17 21:42 23:16 Temperature 98.8 F 98.5 F Pulse Rate 97 91 Respiratory 22 20 Rate Blood Pressure 136/76 134/79 O2 Sat by Pulse 92 L 93 L Oximetry Disposition Clinical Impression: Chronic back pain, Chronic neck pain Disposition: HOME SELF-CARE Condition: Good Referrals: Michael Nuñez MD [Primary Care Provider] - 1-2 days
[2017-06-28 00:42] VITALS: BP 144/79; PULSE 89; RESP 18; TEMP 98
== END 2017-06-28 00:44 | disposition home or self-care (01) ==
LOC: EC 21:40
DX: G89.29 Other chronic pain (principal); M54.9 Dorsalgia, unspecified; M54.2 Cervicalgia; J44.9 Chronic obstructive pulmonary disease, unspecified; K21.9 Gastro-esophageal reflux disease without esophagitis; I10 Essential (primary) hypertension; I20.9 Angina pectoris, unspecified; F41.9 Anxiety disorder, unspecified; F31.9 Bipolar disorder, unspecified; Z87.891 Personal history of nicotine dependence; Z79.51 Long term (current) use of inhaled steroids; Z79.899 Other long term (current) drug therapy; Z91.010 Allergy to peanuts; Z91.048 Other nonmedicinal substance allergy status
CPT/HCPCS: 99283; 96372 ×2; J2360; J1885

== ENCOUNTER 2017-07-01 22:28 | Emergency (ER) | payer MEDICARE, OTHER ==
[2017-07-01] MEDS ORDERED: HYDROmorphone 1 MG/ML 1 ML SYRINGE IM STA (23:42)
[2017-07-01] MEDS ORDERED: ORPHENADRINE 30 MG/ML 2 ML VIAL IM STA (23:42)
--- NOTE | 2017-07-01 23:43 | ED ---
Back Pain HPI - General Chief Complaint: Back Pain/Injury Stated Complaint: Back Pain Time Seen by Provider: 07/01/17 23:36 Source: patient, RN notes reviewed, old records reviewed Limitations: no limitations - History of Present Illness Initial Comments: 61-year-old male presents emergency Department chief complaint of increased thoracic back and neck pain. He reports that he took his Liguori today but is not helping. Patient reports that he was coming out of the shower, and tripped. He reports that he caught himself before he fell but he jolted his back. Patient states that he's had no saddle anesthesias denies any trouble with urinary symptoms or bowel habits. Patient reports that he is also be treated for upper respiratory infection with an antibiotic. He reports he is multiple days to continue. Denies any worsening shortness of breath at this time. He does have a history of COPD. - Related Data Home Medications Medication Instructions Recorded Confirmed Montelukast [Singulair] 10 mg PO DAILY 03/16/14 07/01/17 amLODIPine [Norvasc] 5 mg PO QAM 07/05/14 07/01/17 ALPRAZolam [Xanax] 1 mg PO TID 09/20/15 07/01/17 Fluticasone/Vilanterol [Breo 1 puff INHALATION RT-DAILY 07/16/16 07/01/17 Ellipta 100-25 Mcg Inhaler] Desvenlafaxine [Pristiq ER] 100 mg PO DAILY 09/23/16 07/01/17 Umeclidinium [place] [Incruse 1 puff INHALATION RT-DAILY 10/08/16 07/01/17 Ellipta] Hydrocodone/Acetaminophen [[place] 1 tab PO QID PRN 11/06/16 07/01/17 10-325] Albuterol Inhaler [Ventolin Hfa 2 puff INHALATION RT-QID PRN 05/28/17 07/01/17 Inhaler] Famotidine [Pepcid] 20 mg PO DAILY 05/28/17 07/01/17 Lurasidone HCl [Latuda] 20 mg PO DAILY 06/27/17 07/01/17 Allergies Allergy/AdvReac Type Severity Reaction Status Date / Time peanut Allergy alg testing Verified 07/01/17 23:24 pollen extracts Allergy Unknown Verified 07/01/17 23:24 DUST Allergy alg testing Uncoded 07/01/17 22:34 Review of Systems ROS Statement: Those systems with pertinent positive or pertinent negative responses have been documented in the HPI. ROS Other: All systems not noted in ROS Statement are negative. Past Medical History Past Medical History: Atrial Flutter, Asthma, Chest Pain / Angina, COPD, GERD/ Reflux, Hypertension, Osteoarthritis (OA), Pneumonia, Sleep Apnea/CPAP/BIPAP Additional Past Medical History / Comment(s): Chronic neck and back pain History of Any Multi-Drug Resistant Organisms: None Reported Past Surgical History: Adenoidectomy, Bowel Resection, Cholecystectomy Additional Past Surgical History / Comment(s): REMOVAL OF UVULA. bowel resection for large polyps, colonoscopy with polypectomies, nasal surgery x 2, bronchoscopy with lung bx, pain clinic procedures. Past Anesthesia/Blood Transfusion Reactions: Previous Problems w/ Anesthesia Additional Past Anesthesia/Blood Transfusion Reaction / Comment(s): states "during procedure of checking something on my left lung,I turned blue and I was brought right back out anesthesia and proc was cancelled" Past Psychological History: Anxiety, Bipolar, Depression, Panic Disorder Smoking Status: Former smoker Past Alcohol Use History: Occasional Past Drug Use History: None Reported - Past Family History Mother Family Medical History: Asthma Father Family Medical History: CVA/TIA General Exam - General Exam Comments Initial Comments: Is a 61-year-old male. No acute distress. Limitations: no limitations General appearance: alert, in no apparent distress Head exam: Present: atraumatic, normocephalic, normal inspection Eye exam: Present: normal appearance, PERRL, EOMI. Absent: scleral icterus, conjunctival injection, periorbital swelling ENT exam: Present: normal exam, mucous membranes moist Neck exam: Present: normal inspection. Absent: tenderness, meningismus, lymphadenopathy Respiratory exam: Present: normal lung sounds bilaterally. Absent: respiratory distress, wheezes, rales, rhonchi, stridor Cardiovascular Exam: Present: regular rate, normal rhythm, normal heart sounds. Absent: systolic murmur, diastolic murmur, rubs, gallop, clicks GI/Abdominal exam: Present: soft, normal bowel sounds. Absent: distended, tenderness, guarding, rebound, rigid Extremities exam: Present: normal inspection, full ROM, normal capillary refill. Absent: tenderness, pedal edema, joint swelling, calf tenderness Back exam: Present: normal inspection Neurological exam: Present: alert, oriented X3, CN II-XII intact Psychiatric exam: Present: normal affect, normal mood Course Vital Signs 07/01/17 22:31 Temperature 98.2 F Pulse Rate 84 Respiratory 20 Rate Blood Pressure 145/76 O2 Sat by Pulse 95 Oximetry Medical Decision Making - Medical Decision Making 7-year-old male well-known to the emergency department for chronic pain presents emergency Department with back pain and thoracic back pain. He reports that this started after he was in the shower, almost tripped and fell, but he caught himself and jolted his back. Denies any saddle anesthesias. He is somewhat tender over the thoracic spine. Also has a history of COPD. Complains of no worsening difficulty in breathing at this time. This time patient was given IM Toradol and pain medication. He'll be discharged at this time with follow-up with primary care provider. Discussed close follow-up and return parameters were discussed. Disposition Clinical Impression: Chronic pain Disposition: HOME SELF-CARE Condition: Good Instructions: Chronic Back Pain (ED) Additional Instructions: Patient advised to follow-up with her primary care provider. Continue to take at home pain medication. Return to emergency department if any alarming signs or symptoms occur. Referrals: Michael Nuñez MD [Primary Care Provider] - 1-2 days Time of Disposition: 23:42
[2017-07-02] MEDS ORDERED: HYDROmorphone 2 MG/ML 1 ML SYRINGE IM STA (00:41)
[2017-07-02 00:59] VITALS: BP 137/80; PULSE 72; RESP 18; TEMP 98.1
== END 2017-07-02 00:55 | disposition home or self-care (01) ==
LOC: EC 22:28
DX: G89.29 Other chronic pain (principal); M54.6 Pain in thoracic spine; M54.2 Cervicalgia; J06.9 Acute upper respiratory infection, unspecified; I10 Essential (primary) hypertension; J44.9 Chronic obstructive pulmonary disease, unspecified; K21.9 Gastro-esophageal reflux disease without esophagitis; F31.9 Bipolar disorder, unspecified; F41.0 Panic disorder [episodic paroxysmal anxiety]; Z87.891 Personal history of nicotine dependence; Z79.51 Long term (current) use of inhaled steroids; Z79.899 Other long term (current) drug therapy; Z91.010 Allergy to peanuts; Z91.09 Other allergy status, other than to drugs and biological substances; Z86.79 Personal history of other diseases of the circulatory system
CPT/HCPCS: 99284; 96372 ×3; J1170 ×2; J2360

== ENCOUNTER 2017-07-18 23:06 | Emergency (ER) | payer MEDICARE, OTHER ==
[2017-07-18 23:31] VITALS: TEMP 100
[2017-07-19] MEDS ORDERED: HYDROmorphone 1 MG/ML 1 ML SYRINGE IM STA (00:51)
[2017-07-19] MEDS ORDERED: KETOROLAC 60 MG/2 ML VIAL IM STA (00:51)
--- NOTE | 2017-07-19 00:59 | ED ---
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 Patient has been to the [facility] see department approximately four times in the past two weeks due to his pain for shingles. Remake your doctor and placed on Lyrica. Patient has been taking his pain medication. He is at this time staffing the antiviral medication. Patient states that the wounds are healing come and scabbed over. Patient is concerned because more lesions seem to be occuring. - Related Data Home Medications Medication Instructions Recorded Confirmed Montelukast [Singulair] 10 mg PO DAILY 03/16/14 07/15/17 amLODIPine [Norvasc] 5 mg PO QAM 07/05/14 07/15/17 ALPRAZolam [Xanax] 1 mg PO TID 09/20/15 07/15/17 Fluticasone/Vilanterol [Breo 1 puff INHALATION RT-DAILY 07/16/16 07/15/17 Ellipta 100-25 Mcg Inhaler] Desvenlafaxine [Pristiq ER] 100 mg PO DAILY 09/23/16 07/15/17 Umeclidinium [place] [Incruse 1 puff INHALATION RT-DAILY 10/08/16 07/15/17 Ellipta] Hydrocodone/Acetaminophen [[place] 1 tab PO QID PRN 11/06/16 07/15/17 10-325] Albuterol Inhaler [Ventolin Hfa 2 puff INHALATION RT-QID PRN 05/28/17 07/15/17 Inhaler] Famotidine [Pepcid] 20 mg PO DAILY 05/28/17 07/15/17 Lurasidone HCl [Latuda] 20 mg PO DAILY 06/27/17 07/15/17 Previous Rx's Medication Instructions Recorded Lidocaine 5% Patch [Lidoderm] 1 patch TOPICAL DAILY #5 patch 07/04/17 valACYclovir HCL [Valtrex] 1,000 mg PO TID #21 tablet 07/04/17 Gabapentin [Neurontin] 100 mg PO TID #21 cap 07/07/17 valACYclovir HCL [Valtrex] 1,000 mg PO TID #21 tablet 07/19/17 Allergies Allergy/AdvReac Type Severity Reaction Status Date / Time peanut Allergy alg testing Verified 07/18/17 23:31 pollen extracts Allergy Unknown Verified 07/18/17 23:31 DUST Allergy alg testing Uncoded 07/18/17 23:31 Review of Systems ROS Statement: Those systems with pertinent positive or pertinent negative responses have been documented in the HPI. ROS Other: All systems not noted in ROS Statement are negative. Past Medical History Past Medical History: Atrial Flutter, Asthma, Chest Pain / Angina, COPD, GERD/ Reflux, Hypertension, Osteoarthritis (OA), Pneumonia, Sleep Apnea/CPAP/BIPAP Additional Past Medical History / Comment(s): Chronic neck and back pain, shingles. History of Any Multi-Drug Resistant Organisms: None Reported Past Surgical History: Adenoidectomy, Bowel Resection, Cholecystectomy Additional Past Surgical History / Comment(s): REMOVAL OF UVULA. bowel resection for large polyps, colonoscopy with polypectomies, nasal surgery x 2, bronchoscopy with lung bx, pain clinic procedures. Past Anesthesia/Blood Transfusion Reactions: Previous Problems w/ Anesthesia Additional Past Anesthesia/Blood Transfusion Reaction / Comment(s): states "during procedure of checking something on my left lung,I turned blue and I was brought right back out anesthesia and proc was cancelled" Past Psychological History: Anxiety, Bipolar, Depression, Panic Disorder Smoking Status: Former smoker Past Alcohol Use History: Occasional Past Drug Use History: None Reported - Past Family History Mother Family Medical History: Asthma Father Family Medical History: CVA/TIA General Exam - General Exam Comments Initial Comments: 61-year-old male. No distress. Limitations: no limitations General appearance: alert, in no apparent distress Head exam: Present: atraumatic, normocephalic, normal inspection Eye exam: Present: normal appearance, PERRL, EOMI. Absent: scleral icterus, conjunctival injection, periorbital swelling ENT exam: Present: normal exam, mucous membranes moist Neck exam: Present: normal inspection. Absent: tenderness, meningismus, lymphadenopathy Respiratory exam: Present: normal lung sounds bilaterally. Absent: respiratory distress, wheezes, rales, rhonchi, stridor Cardiovascular Exam: Present: regular rate, normal rhythm, normal heart sounds. Absent: systolic murmur, diastolic murmur, rubs, gallop, clicks GI/Abdominal exam: Present: soft, normal bowel sounds. Absent: distended, tenderness, guarding, rebound, rigid Extremities exam: Present: normal inspection, full ROM, normal capillary refill. Absent: tenderness, pedal edema, joint swelling, calf tenderness Back exam: Present: normal inspection Neurological exam: Present: alert, oriented X3, CN II-XII intact Psychiatric exam: Present: normal affect, normal mood Skin exam: Present: warm, dry, intact, normal color. Absent: rash Course Vital Signs 07/18/17 07/19/17 23:27 01:43 Temperature 100.0 F H Pulse Rate 94 93 Respiratory 17 18 Rate Blood Pressure 126/73 133/92 O2 Sat by Pulse 93 L 91 L Oximetry Medical Decision Making - Medical Decision Making 61-year-old male comes in for evaluation due to increased pain over shingles area. He has it over his right teen 90 dermatome. He's been coming in multiple times for the past few weeks. Patient lesions are healing up. There is a question of some new lesions occurring. I will research the patient Vikki tracks. He's on Lyrica. Discussed following up with his primary care doctor and product representative at this time. Patient agrees to Treatment plan and will comply. Return parameters were discussed. Disposition Clinical Impression: Shingles Disposition: HOME SELF-CARE Condition: Good Instructions: Shingles (ED) Additional Instructions: Patient advised to follow-up with her primary care physician. Take care medicine as prescribed. Return to emergency department if any alarming signs occur. Prescriptions: valACYclovir HCL [Valtrex] 1,000 mg PO TID #21 tablet Referrals: Michael Nuñez MD [Primary Care Provider] - 1-2 days Time of Disposition: 00:57
[2017-07-19 01:44] VITALS: BP 133/92; PULSE 93; RESP 18
== END 2017-07-19 01:45 | disposition home or self-care (01) ==
LOC: EC 23:06
DX: B02.9 Zoster without complications (principal); I48.91 Unspecified atrial fibrillation; K21.9 Gastro-esophageal reflux disease without esophagitis; I10 Essential (primary) hypertension; F41.0 Panic disorder [episodic paroxysmal anxiety]; F32.9 Major depressive disorder, single episode, unspecified; G47.30 Sleep apnea, unspecified; Z99.89 Dependence on other enabling machines and devices; Z87.891 Personal history of nicotine dependence; Z79.51 Long term (current) use of inhaled steroids; Z79.899 Other long term (current) drug therapy; Z91.010 Allergy to peanuts; Z91.048 Other nonmedicinal substance allergy status
CPT/HCPCS: 99283; 96372 ×2; J1885; J1170

== ENCOUNTER 2017-07-26 21:10 | Emergency (ER) | payer MEDICARE, OTHER ==
[2017-07-26] MEDS ORDERED: diphenhydrAMINE 50 MG/ML 1 ML VIAL IVP STA (21:34)
[2017-07-26] MEDS ORDERED: IPRATROPIUM-ALBUTEROL 3 ML NEB INHALATION STA (21:34)
--- NOTE | 2017-07-26 21:41 | ED ---
General Adult HPI - General Chief complaint: Shortness of Breath Stated complaint: SOB Time Seen by Provider: 07/26/17 21:30 Source: patient, RN notes reviewed Mode of arrival: wheelchair Limitations: no limitations - History of Present Illness Initial comments: This a 61-year-old male presents emergency Department chief complaint cough, chest congestion, shortness of breath. Patient states she was just discharged a few days ago for pneumonia. Patient states that he was feeling better but states he has not completely resolved. He states that he wants to have her recheck. Denies chest pain, fever, chills, headache or dizziness. Patient also is recently getting over a bout of shingles. Patient states she is currently taking Neurontin for that. Patient states his discharged on Levaquin for his pneumonia. Patient does have a history of COPD and which she does breathing treatments at home. He has not had recent treatment over 6 hours. - Related Data Home Medications Medication Instructions Recorded Confirmed Montelukast [Singulair] 10 mg PO DAILY 03/16/14 07/26/17 amLODIPine [Norvasc] 5 mg PO QAM 07/05/14 07/26/17 ALPRAZolam [Xanax] 1 mg PO TID 09/20/15 07/26/17 Fluticasone/Vilanterol [Breo 1 puff INHALATION RT-DAILY 07/16/16 07/26/17 Ellipta 100-25 Mcg Inhaler] Desvenlafaxine [Pristiq ER] 100 mg PO DAILY 09/23/16 07/26/17 Umeclidinium [place] [Incruse 1 puff INHALATION RT-DAILY 10/08/16 07/26/17 Ellipta] Hydrocodone/Acetaminophen [[place] 1 tab PO QID PRN 11/06/16 07/26/17 10-325] Albuterol Inhaler [Ventolin Hfa 2 puff INHALATION RT-QID PRN 05/28/17 07/26/17 Inhaler] Famotidine [Pepcid] 20 mg PO DAILY 05/28/17 07/26/17 Lurasidone HCl [Latuda] 20 mg PO DAILY 06/27/17 07/26/17 predniSONE [place] PO DAILY 07/26/17 07/26/17 Previous Rx's Medication Instructions Recorded Gabapentin [Neurontin] 100 mg PO TID #21 cap 07/07/17 valACYclovir HCL [Valtrex] 1,000 mg PO TID #21 tablet 07/19/17 Allergies Allergy/AdvReac Type Severity Reaction Status Date / Time peanut Allergy alg testing Verified 07/26/17 21:36 pollen extracts Allergy Unknown Verified 07/26/17 21:36 DUST Allergy alg testing Uncoded 07/26/17 21:17 Review of Systems ROS Statement: Those systems with pertinent positive or pertinent negative responses have been documented in the HPI. ROS Other: All systems not noted in ROS Statement are negative. Past Medical History Past Medical History: Atrial Flutter, Asthma, Chest Pain / Angina, COPD, GERD/ Reflux, Hypertension, Osteoarthritis (OA), Pneumonia, Sleep Apnea/CPAP/BIPAP Additional Past Medical History / Comment(s): Chronic neck and back pain, shingles. History of Any Multi-Drug Resistant Organisms: None Reported Past Surgical History: Adenoidectomy, Bowel Resection, Cholecystectomy Additional Past Surgical History / Comment(s): REMOVAL OF UVULA. bowel resection for large polyps, colonoscopy with polypectomies, nasal surgery x 2, bronchoscopy with lung bx, pain clinic procedures. Past Anesthesia/Blood Transfusion Reactions: Previous Problems w/ Anesthesia Additional Past Anesthesia/Blood Transfusion Reaction / Comment(s): states "during procedure of checking something on my left lung,I turned blue and I was brought right back out anesthesia and proc was cancelled" Past Psychological History: Anxiety, Bipolar, Depression, Panic Disorder Smoking Status: Former smoker Past Alcohol Use History: Occasional Past Drug Use History: None Reported - Past Family History Mother Family Medical History: Asthma Father Family Medical History: CVA/TIA General Exam Limitations: no limitations General appearance: alert, in no apparent distress Head exam: Present: atraumatic, normocephalic, normal inspection Eye exam: Present: normal appearance, PERRL, EOMI. Absent: scleral icterus, conjunctival injection, periorbital swelling ENT exam: Present: normal exam, normal oropharynx, mucous membranes moist Neck exam: Present: normal inspection. Absent: tenderness, meningismus, lymphadenopathy Respiratory exam: Present: wheezes (Minimal). Absent: normal lung sounds bilaterally, respiratory distress, rales, rhonchi, stridor Cardiovascular Exam: Present: regular rate, normal rhythm, normal heart sounds. Absent: systolic murmur, diastolic murmur, rubs, gallop, clicks Neurological exam: Present: alert, oriented X3, CN II-XII intact Skin exam: Present: warm, dry, intact, normal color. Absent: rash Course Vital Signs 07/26/17 07/26/17 07/26/17 21:13 22:02 22:26 Temperature 99.4 F Pulse Rate 94 80 84 Respiratory 20 Rate Blood Pressure 121/58 O2 Sat by Pulse 95 Oximetry 07/26/17 22:34 Temperature 98.7 F Pulse Rate 84 Respiratory 19 Rate Blood Pressure 118/61 O2 Sat by Pulse 96 Oximetry EKG Findings - EKG Comments: EKG Findings:: EKG performed at 21:19 normal sinus rhythm with a rate of 91 MT 120 QRS 90 QT/QTC 364/447 Medical Decision Making - Medical Decision Making 61-year-old male present emergency from for recheck of his in the morning. Lab work and, chest x-ray are improved. Patient is in no respiratory distress. Patient's vitals are stable. Patient is requesting pain medication and I advised him that he can take his prescribed pain medication and the Neurontin as directed for his neuropathy pain from shingles. - Lab Data Result diagrams: 07/26/17 21:40 07/26/17 21:40 Lab Results 07/26/17 07/26/17 07/26/17 Range/Units 21:40 21:40 21:40 WBC 9.2 (3.8-10.6) k/uL RBC 4.29 L (4.30-5.90) m/uL Hgb 15.0 (13.0-17.5) gm/dL Hct 45.1 (39.0-53.0) % MCV 105.1 H (80.0-100.0) fL MCH 35.0 (25.0-35.0) pg MCHC 33.3 (31.0-37.0) g/dL RDW 14.8 (11.5-15.5) % Plt Count 189 D (150-450) k/uL Neutrophils % 90 % Lymphocytes % 6 % Monocytes % 2 % Eosinophils % 1 % Basophils % 0 % Neutrophils # 8.2 H (1.3-7.7) k/uL Lymphocytes # 0.6 L (1.0-4.8) k/uL Monocytes # 0.2 (0-1.0) k/uL Eosinophils # 0.1 (0-0.7) k/uL Basophils # 0.0 (0-0.2) k/uL Macrocytosis Moderate PT (9.0-12.0) sec INR (<1.2) APTT (22.0-30.0) sec Sodium 143 (137-145) mmol/L Potassium 5.3 H (3.5-5.1) mmol/L Chloride 104 (98-107) mmol/L Carbon Dioxide 26 (22-30) mmol/L Anion Gap 13 mmol/L BUN 24 H (9-20) mg/dL Creatinine 1.20 (0.66-1.25) mg/dL Est GFR (MDRD) Af Amer >60 (>60 ml/min/1.73 sqM) Est GFR (MDRD) Non-Af >60 (>60 ml/min/1.73 sqM) Glucose 88 (74-99) mg/dL Calcium 8.5 (8.4-10.2) mg/dL Magnesium 2.0 (1.6-2.3) mg/dL Total Bilirubin 0.5 (0.2-1.3) mg/dL AST 67 H (17-59) U/L ALT 225 H (21-72) U/L Alkaline Phosphatase 69 (38-126) U/L Total Creatine Kinase 45 L (55-170) U/L CK-MB (CK-2) 1.6 (0.0-2.4) ng/mL CK-MB (CK-2) Rel Index 3.6 Troponin I <0.012 (0.000-0.034) ng/mL Total Protein 5.9 L (6.3-8.2) g/dL Albumin 3.6 (3.5-5.0) g/dL 07/26/17 Range/Units 21:40 WBC (3.8-10.6) k/uL RBC (4.30-5.90) m/uL Hgb (13.0-17.5) gm/dL Hct (39.0-53.0) % MCV (80.0-100.0) fL MCH (25.0-35.0) pg MCHC (31.0-37.0) g/dL RDW (11.5-15.5) % Plt Count (150-450) k/uL Neutrophils % % Lymphocytes % % Monocytes % % Eosinophils % % Basophils % % Neutrophils # (1.3-7.7) k/uL Lymphocytes # (1.0-4.8) k/uL Monocytes # (0-1.0) k/uL Eosinophils # (0-0.7) k/uL Basophils # (0-0.2) k/uL Macrocytosis PT 10.2 (9.0-12.0) sec INR 1.0 (<1.2) APTT 20.8 L (22.0-30.0) sec Sodium (137-145) mmol/L Potassium (3.5-5.1) mmol/L Chloride (98-107) mmol/L Carbon Dioxide (22-30) mmol/L Anion Gap mmol/L BUN (9-20) mg/dL Creatinine (0.66-1.25) mg/dL Est GFR (MDRD) Af Amer (>60 ml/min/1.73 sqM) Est GFR (MDRD) Non-Af (>60 ml/min/1.73 sqM) Glucose (74-99) mg/dL Calcium (8.4-10.2) mg/dL Magnesium (1.6-2.3) mg/dL Total Bilirubin (0.2-1.3) mg/dL AST (17-59) U/L ALT (21-72) U/L Alkaline Phosphatase (38-126) U/L Total Creatine Kinase (55-170) U/L CK-MB (CK-2) (0.0-2.4) ng/mL CK-MB (CK-2) Rel Index Troponin I (0.000-0.034) ng/mL Total Protein (6.3-8.2) g/dL Albumin (3.5-5.0) g/dL Disposition Clinical Impression: Pneumonia, Shingles (herpes zoster) polyneuropathy, Narcotic dependence Disposition: HOME SELF-CARE Condition: Stable Instructions: Chronic Cough (ED) Additional Instructions: Please return to the Emergency Department if symptoms worsen or any other concerns. Continue medications as prescribed. Referrals: Michael Nuñez MD [Primary Care Provider] - 1-2 days Time of Disposition: 22:39
[2017-07-26 21:50] LABS: Basophils % (A) 0 %; CH 35.2; CHCM 33.7; Eosinophils # (A) 0.1 k/uL (0-0.7); Eosinophils % (A) 1 %; HCT 45.1 % (39.0-53.0); Luc # (Auto) 0.04; Luc % (Auto) 0; Lymphocytes # (A) 0.6 k/uL (1.0-4.8); Lymphocytes % (A) 6 %; MCHC 33.3 g/dL (31.0-37.0); MCV 105.1 fL (80.0-100.0); Macrocytosis Moderate; Mean Platelet Volume 7.2; Monocytes # (A) 0.2 k/uL (0-1.0); Monocytes % (A) 2 %; Neutrophils # (A) 8.2 k/uL (1.3-7.7); Neutrophils % (A) 90 %; RBC 4.29 m/uL (4.30-5.90); RDW 14.8 % (11.5-15.5); WBC 9.2 k/uL (3.8-10.6); WBC (Perox) 8.83
[2017-07-26 21:59] LABS: ALT 225 U/L (21-72); AST 67 U/L (17-59); Alkaline Phosphatase 69 U/L (38-126); Anion Gap 13 mmol/L; Blood Urea Nitrogen 24 mg/dL (9-20); Calcium 8.5 mg/dL (8.4-10.2); Carbon Dioxide 26 mmol/L (22-30); Chloride 104 mmol/L (98-107); Glucose 88 mg/dL (74-99); Non-African American GFR(MDRD) >60 (>60 ml/min/1.73 sqM); Potassium 5.3 mmol/L (3.5-5.1); Sodium 143 mmol/L (137-145); Total Bilirubin 0.5 mg/dL (0.2-1.3); Total Protein 5.9 g/dL (6.3-8.2)
--- NOTE | 2017-07-26 22:03 | XR ---
EXAMINATION TYPE: XR chest 2V DATE OF EXAM: 07/26/2017 COMPARISON: 07/20/2017 HISTORY: 61-year-old male difficulty breathing TECHNIQUE: PA and lateral views FINDINGS: Heart is upper limits of normal in size. Mild diffuse interstitial prominence with tiny right basilar atelectasis there is mild peribronchial cuffing similar to prior. No consolidation or pleural effusi on. IMPRESSION: 1. Heart upper limits of normal in size. 2. Chronic interstitial prominence, possible chronic bronchitis/asthma. 3. No acute process seen.
[2017-07-26 22:12] LABS: Creatine Kinase 45 U/L (55-170)
[2017-07-26 22:16] LABS: Prothrombin Time 10.2 sec (9.0-12.0)
[2017-07-26 22:24] LABS: Creatine Kinase MB 1.6 ng/mL (0.0-2.4); Troponin I <0.012 ng/mL (0.000-0.034)
[2017-07-26 22:26] VITALS: PULSE 84
[2017-07-26 22:30] LABS: Partial Thromboplastin Time 20.8 sec (22.0-30.0)
[2017-07-26 22:36] VITALS: BP 118/61; RESP 19; TEMP 98.7
== END 2017-07-26 22:40 | disposition home or self-care (01) ==
LOC: EC 21:10
DX: J18.9 Pneumonia, unspecified organism (principal); B02.23 Postherpetic polyneuropathy; F11.20 Opioid dependence, uncomplicated; J44.9 Chronic obstructive pulmonary disease, unspecified; I10 Essential (primary) hypertension; M19.90 Unspecified osteoarthritis, unspecified site; K21.9 Gastro-esophageal reflux disease without esophagitis; F31.9 Bipolar disorder, unspecified; F41.9 Anxiety disorder, unspecified; Z87.01 Personal history of pneumonia (recurrent); Z87.891 Personal history of nicotine dependence; Z91.010 Allergy to peanuts; Z91.09 Other allergy status, other than to drugs and biological substances; Z79.51 Long term (current) use of inhaled steroids; Z79.52 Long term (current) use of systemic steroids; Z79.899 Other long term (current) drug therapy
CPT/HCPCS: 36415; 94640; 93005; 80053; 82550; 82553; 83735; 84484; 85025; 85610; 85730; 71020; 99285; 96374; J1200

== ENCOUNTER 2017-07-30 11:24 | Emergency (ER) | payer MEDICARE, OTHER ==
[2017-07-30] MEDS ORDERED: ONDANSETRON 4 MG/2 ML VIAL IVP STA (11:57)
[2017-07-30] MEDS ORDERED: SODIUM CHLORIDE 0.9% 1,000 ML IV STA (11:57)
[2017-07-30] MEDS ORDERED: IPRATROPIUM-ALBUTEROL 3 ML NEB INHALATION STA ×2 (11:57→15:02)
[2017-07-30] MEDS ORDERED: ACETAMINOPHEN TAB 500 MG TAB PO STA (11:57)
[2017-07-30] MEDS ORDERED: HYDROmorphone 1 MG/ML 1 ML SYRINGE IVP STA ×2 (11:57→15:02)
--- NOTE | 2017-07-30 12:00 | ED ---
General Adult HPI - General Chief complaint: Upper Respiratory Infection Stated complaint: SOB Time Seen by Provider: 07/30/17 11:45 Source: patient, RN notes reviewed, old records reviewed Mode of arrival: wheelchair Limitations: no limitations - History of Present Illness Initial comments: Patient is a 61-year-old male who presents emergency room today with a chief complaint of cough congestion. He does not that he was diagnosed with pneumonia and admitted to the hospital. States he was on antibiotics at home. States he has a few pills left. States was not feeling well last night with the family doctor this morning had a repeat x-ray which showed pneumonia stool was present. States he was given a shot antibiotics and a new prescription. States by time he got home he was very anxious and worried about this and was feeling like he was having a hard time breathing. She is expressing pain. He does have shingles rash that started a month ago. was taking [place] for this has not had a chance to take that. Patient does admit to sputum production metastases browing green with this cough congestion over the last 2 weeks. States he does not feel like he is improving. Patient denies any recent shortness of breath, abdominal pain, nausea or vomiting, numbness or tingling, dysuria or hematuria, constipation or diarrhea, headaches or visual changes, or any other complaints. - Related Data Home Medications Medication Instructions Recorded Confirmed Montelukast [Singulair] 10 mg PO DAILY 03/16/14 07/30/17 amLODIPine [Norvasc] 5 mg PO QAM 07/05/14 07/30/17 ALPRAZolam [Xanax] 1 mg PO TID 09/20/15 07/30/17 Fluticasone/Vilanterol [Breo 1 puff INHALATION RT-DAILY 07/16/16 07/30/17 Ellipta 100-25 Mcg Inhaler] Desvenlafaxine [Pristiq ER] 100 mg PO DAILY 09/23/16 07/30/17 Umeclidinium [place] [Incruse 1 puff INHALATION RT-DAILY 10/08/16 07/30/17 Ellipta] Hydrocodone/Acetaminophen [[place] 1 tab PO QID PRN 11/06/16 07/30/17 10-325] Albuterol Inhaler [Ventolin Hfa 2 puff INHALATION RT-QID PRN 05/28/17 07/30/17 Inhaler] Famotidine [Pepcid] 20 mg PO DAILY 05/28/17 07/30/17 Lurasidone HCl [Latuda] 20 mg PO DAILY 06/27/17 07/30/17 predniSONE See Taper PO DAILY 07/26/17 07/30/17 Previous Rx's Medication Instructions Recorded Gabapentin [Neurontin] 100 mg PO TID #21 cap 07/07/17 Clarithromycin [Biaxin] 500 mg PO Q12HR #20 tablet 07/30/17 Allergies Allergy/AdvReac Type Severity Reaction Status Date / Time peanut Allergy alg testing Verified 07/30/17 11:44 pollen extracts Allergy Unknown Verified 07/30/17 11:44 DUST Allergy alg testing Uncoded 07/30/17 11:35 Review of Systems ROS Statement: Those systems with pertinent positive or pertinent negative responses have been documented in the HPI. ROS Other: All systems not noted in ROS Statement are negative. Past Medical History Past Medical History: Atrial Flutter, Asthma, Chest Pain / Angina, COPD, GERD/ Reflux, Hypertension, Osteoarthritis (OA), Pneumonia, Sleep Apnea/CPAP/BIPAP Additional Past Medical History / Comment(s): Chronic neck and back pain, shingles. History of Any Multi-Drug Resistant Organisms: None Reported Past Surgical History: Adenoidectomy, Bowel Resection, Cholecystectomy Additional Past Surgical History / Comment(s): REMOVAL OF UVULA. bowel resection for large polyps, colonoscopy with polypectomies, nasal surgery x 2, bronchoscopy with lung bx, pain clinic procedures. Past Anesthesia/Blood Transfusion Reactions: Previous Problems w/ Anesthesia Additional Past Anesthesia/Blood Transfusion Reaction / Comment(s): states "during procedure of checking something on my left lung,I turned blue and I was brought right back out anesthesia and proc was cancelled" Past Psychological History: Anxiety, Bipolar, Depression, Panic Disorder Smoking Status: Former smoker Past Alcohol Use History: Occasional Past Drug Use History: None Reported - Past Family History Mother Family Medical History: Asthma Father Family Medical History: CVA/TIA General Exam - General Exam Comments Initial Comments: General: The patient is awake and alert, in no distress, and does not appear acutely ill. Eye: Pupils are equal, round and reactive to light, extra-ocular movements are intact. No nystagmus. There is normal conjunctiva bilaterally. No signs of icterus. Ears, nose, mouth and throat: There are moist mucous membranes and no oral lesions. Neck: The neck is supple, there is no tenderness or JVD. Cardiovascular: There is a regular rate and rhythm. No murmur, rub or gallop is appreciated. Respiratory: Lungs are clear to auscultation, respirations are non-labored, breath sounds are equal. No wheezes, stridor, rales, or rhonchi. Musculoskeletal: Normal ROM, no tenderness. Strength 5/5. Sensation intact. Pulses equal bilaterally 2+. Neurological: A&O x 3. CN II-XII intact, There are no obvious motor or sensory deficits. Coordination appears grossly intact. Speech is normal. Skin: Skin is warm and dry and no rashes or lesions are noted. Psychiatric: Cooperative, appropriate mood & affect, normal judgment. Limitations: no limitations Course Vital Signs 07/30/17 07/30/17 07/30/17 11:31 11:41 12:30 Temperature 100.7 F H Pulse Rate 112 H Respiratory 20 22 Rate Blood Pressure 164/114 O2 Sat by Pulse 94 L Oximetry 07/30/17 07/30/17 07/30/17 12:32 12:34 12:42 Temperature Pulse Rate 108 H 108 H Respiratory 22 Rate Blood Pressure O2 Sat by Pulse Oximetry 07/30/17 13:15 Temperature 98.7 F Pulse Rate 96 Respiratory 20 Rate Blood Pressure 145/69 O2 Sat by Pulse 96 Oximetry Medical Decision Making - Medical Decision Making Patient lives been reviewed does show an 11,000 white count. Chest x-rays been reviewed no evidence of pneumonia. Patient's remaining labs are been viewed. Patient breathing treatments here in the emergency room. He did see his family doctor earlier today. Was given a new antibiotic to start but came here to the emergency room symptoms not feeling well. His discussed with attending physician Dr. Reynoso who did discuss case with patient's family doctor that resulted in the office Dr. Lawson. Case was discussed in detail at this time Dr. Lawson feels comfortable allowing patient to go home to follow-up in the office as discussed earlier today. Patient advised continue his breathing treatments and start no antibiotic. Patient states unsure if he said prescription over we will provide a prescription for Biaxin as he states this is what he was told he was going to start dislocation of the prescription is not at the pharmacy. Advised patient return if symptoms increase worsen or for any other concerns. He states understanding and is in agreement with the plan. - Lab Data Result diagrams: 07/30/17 12:10 07/30/17 12:10 Lab Results 07/30/17 07/30/17 07/30/17 Range/Units 12:10 12:10 12:10 WBC 11.0 H (3.8-10.6) k/uL RBC 4.49 (4.30-5.90) m/uL Hgb 15.4 (13.0-17.5) gm/dL Hct 46.8 (39.0-53.0) % MCV 104.2 H (80.0-100.0) fL MCH 34.3 (25.0-35.0) pg MCHC 32.9 (31.0-37.0) g/dL RDW 15.2 (11.5-15.5) % Plt Count 124 L (150-450) k/uL Neutrophils % 84 % Lymphocytes % 4 % Monocytes % 8 % Eosinophils % 2 % Basophils % 0 % Neutrophils # 9.2 H (1.3-7.7) k/uL Lymphocytes # 0.5 L (1.0-4.8) k/uL Monocytes # 0.9 (0-1.0) k/uL Eosinophils # 0.2 (0-0.7) k/uL Basophils # 0.0 (0-0.2) k/uL Macrocytosis Moderate Sodium 137 (137-145) mmol/L Potassium 4.7 (3.5-5.1) mmol/L Chloride 104 (98-107) mmol/L Carbon Dioxide 26 (22-30) mmol/L Anion Gap 7 mmol/L BUN 27 H (9-20) mg/dL Creatinine 0.98 (0.66-1.25) mg/dL Est GFR (MDRD) Af Amer >60 (>60 ml/min/1.73 sqM) Est GFR (MDRD) Non-Af >60 (>60 ml/min/1.73 sqM) Glucose 111 H (74-99) mg/dL Plasma Lactic Acid [place] (0.7-2.0) mmol/L Calcium 9.4 (8.4-10.2) mg/dL Total Bilirubin 1.2 (0.2-1.3) mg/dL AST 106 H (17-59) U/L ALT 226 H (21-72) U/L Alkaline Phosphatase 93 (38-126) U/L Troponin I (0.000-0.034) ng/mL Total Protein 6.7 (6.3-8.2) g/dL Albumin 4.0 (3.5-5.0) g/dL Urine Color Urine Appearance (Clear) Urine pH (5.0-8.0) Ur Specific [place] (1.001-1.035) Urine Protein (Negative) Urine Glucose (UA) (Negative) Urine Ketones (Negative) Urine Blood (Negative) Urine Nitrite (Negative) Urine Bilirubin (Negative) Urine Urobilinogen (<2.0) mg/dL Ur Leukocyte Esterase (Negative) Influenza Type A RNA Not Detected (Not Detectd) Influenza Type B (PCR) Not Detected (Not Detectd) 07/30/17 07/30/17 07/30/17 Range/Units 12:10 12:10 13:17 WBC (3.8-10.6) k/uL RBC (4.30-5.90) m/uL Hgb (13.0-17.5) gm/dL Hct (39.0-53.0) % MCV (80.0-100.0) fL MCH (25.0-35.0) pg MCHC (31.0-37.0) g/dL RDW (11.5-15.5) % Plt Count (150-450) k/uL Neutrophils % % Lymphocytes % % Monocytes % % Eosinophils % % Basophils % % Neutrophils # (1.3-7.7) k/uL Lymphocytes # (1.0-4.8) k/uL Monocytes # (0-1.0) k/uL Eosinophils # (0-0.7) k/uL Basophils # (0-0.2) k/uL Macrocytosis Sodium (137-145) mmol/L Potassium (3.5-5.1) mmol/L Chloride (98-107) mmol/L Carbon Dioxide (22-30) mmol/L Anion Gap mmol/L BUN (9-20) mg/dL Creatinine (0.66-1.25) mg/dL Est GFR (MDRD) Af Amer (>60 ml/min/1.73 sqM) Est GFR (MDRD) Non-Af (>60 ml/min/1.73 sqM) Glucose (74-99) mg/dL Plasma Lactic Acid [place] 1.0 (0.7-2.0) mmol/L Calcium (8.4-10.2) mg/dL Total Bilirubin (0.2-1.3) mg/dL AST (17-59) U/L ALT (21-72) U/L Alkaline Phosphatase (38-126) U/L Troponin I 0.015 (0.000-0.034) ng/mL Total Protein (6.3-8.2) g/dL Albumin (3.5-5.0) g/dL Urine Color Yellow Urine Appearance Clear (Clear) Urine pH 5.5 (5.0-8.0) Ur Specific [place] 1.025 (1.001-1.035) Urine Protein Trace H (Negative) Urine Glucose (UA) Negative (Negative) Urine Ketones Negative (Negative) Urine Blood Negative (Negative) Urine Nitrite Negative (Negative) Urine Bilirubin Negative (Negative) Urine Urobilinogen <2.0 (<2.0) mg/dL Ur Leukocyte Esterase Negative (Negative) Influenza Type A RNA (Not Detectd) Influenza Type B (PCR) (Not Detectd) Disposition Clinical Impression: Acute bronchitis Disposition: HOME SELF-CARE Condition: Good Instructions: Acute Bronchitis (ED) Additional Instructions: Please use antibiotic as prescribed and breathing treatments as discussed. Please follow-up the family doctor with scheduled appointment on August 03. Please return here to the emergency room symptoms increase or worsen or for any concerns. Prescriptions: Clarithromycin [Biaxin] 500 mg PO Q12HR #20 tablet Referrals: Michael Nuñez MD [Primary Care Provider] - 1-2 days Time of Disposition: 15:04
[2017-07-30 12:27] LABS: Basophils % (A) 0 %; Eosinophils # (A) 0.2 k/uL (0-0.7); Eosinophils % (A) 2 %; HCT 46.8 % (39.0-53.0); HGB 15.4 gm/dL (13.0-17.5); Lymphocytes # (A) 0.5 k/uL (1.0-4.8); Lymphocytes % (A) 4 %; MCH 34.3 pg (25.0-35.0); MCHC 32.9 g/dL (31.0-37.0); MCV 104.2 fL (80.0-100.0); Macrocytosis Moderate; Mean Platelet Volume 7.5; Monocytes # (A) 0.9 k/uL (0-1.0); Monocytes % (A) 8 %; Neutrophils # (A) 9.2 k/uL (1.3-7.7); Neutrophils % (A) 84 %; Platelet Count 124 k/uL (150-450); RBC 4.49 m/uL (4.30-5.90); RDW 15.2 % (11.5-15.5)
[2017-07-30 12:46] LABS: ALT 226 U/L (21-72); AST 106 U/L (17-59); Alkaline Phosphatase 93 U/L (38-126); Anion Gap 7 mmol/L; Blood Urea Nitrogen 27 mg/dL (9-20); Calcium 9.4 mg/dL (8.4-10.2); Carbon Dioxide 26 mmol/L (22-30); Chloride 104 mmol/L (98-107); Glucose 111 mg/dL (74-99); Potassium 4.7 mmol/L (3.5-5.1); Sodium 137 mmol/L (137-145); Total Bilirubin 1.2 mg/dL (0.2-1.3); Total Protein 6.7 g/dL (6.3-8.2)
[2017-07-30 13:29] LABS: Appearance,Urine Clear (Clear); Bilirubin,Urine Negative (Negative); Blood,Urine Negative (Negative); Color,Urine Yellow; Glucose,Urine (UA) Negative (Negative); Ketones,Urine Negative (Negative); Leukocyte Esterase,Urine Negative (Negative); Nitrite,Urine Negative (Negative); PH, Urine 5.5 (5.0-8.0); Protein,Urine Trace (Negative); Specific Gravity,Urine 1.025 (1.001-1.035); Urobilinogen,Urine <2.0 mg/dL (<2.0)
--- NOTE | 2017-07-30 13:59 | XR ---
EXAMINATION TYPE: XR chest 2V DATE OF EXAM: 07/30/2017 COMPARISON: 07/26/2017 HISTORY: Recent shingles TECHNIQUE: Frontal and lateral views of the chest are obtained. FINDINGS: There is no focal air space opacity, pleural effusion, or pneumothorax seen. Minimal bibas ilar subsegmental atelectasis is noted. The cardiac silhouette size is again upper limits of normal. The osseous structures are intact. IMPRESSION: Minimal bibasilar subsegmental atelectasis. No focal consolidation.
[2017-07-30 15:15] VITALS: BP 130/78; RESP 16; TEMP 99.2
[2017-07-30 15:37] VITALS: PULSE 89
== END 2017-07-30 15:48 | disposition home or self-care (01) ==
LOC: EC 11:24
DX: J20.9 Acute bronchitis, unspecified (principal); B02.9 Zoster without complications; J18.9 Pneumonia, unspecified organism; J44.9 Chronic obstructive pulmonary disease, unspecified; I10 Essential (primary) hypertension; K21.9 Gastro-esophageal reflux disease without esophagitis; G47.30 Sleep apnea, unspecified; M19.90 Unspecified osteoarthritis, unspecified site; F31.9 Bipolar disorder, unspecified; F41.0 Panic disorder [episodic paroxysmal anxiety]; Z87.891 Personal history of nicotine dependence; Z79.51 Long term (current) use of inhaled steroids; Z79.52 Long term (current) use of systemic steroids; Z79.899 Other long term (current) drug therapy; Z91.010 Allergy to peanuts; Z91.048 Other nonmedicinal substance allergy status; Z86.79 Personal history of other diseases of the circulatory system; Z99.89 Dependence on other enabling machines and devices; Z82.5 Family history of asthma and other chronic lower respiratory diseases
CPT/HCPCS: 36415; 94640 ×2; 93005; 80053; 83605; 84484; 85025; 81003; 87040; 87086; 87502; 71020; 99284; 96374; 96375; 96376; 96361; J2405; J1170

== ENCOUNTER 2017-07-30 17:30 | Observation (INO) | payer MEDICARE, OTHER ==
[2017-07-30] MEDS ORDERED: IPRATROPIUM-ALBUTEROL 3 ML NEB INHALATION STA (19:17)
[2017-07-30] MEDS ORDERED: IBUPROFEN 600 MG TAB PO STA (19:17)
[2017-07-30] MEDS ORDERED: SODIUM CHLORIDE 0.9% 1,000 ML IV STA (19:17)
[2017-07-30] MEDS ORDERED: LORazepam 2 MG/ML INJ IV STA (19:17)
[2017-07-30] MEDS ORDERED: methylPREDNISolone SOD SUCCI 125 MG/2 ML VIAL IV STA (19:18)
[2017-07-30] MEDS ORDERED: SODIUM CHLORIDE 0.9% 1,000 ML IV ONE (19:29)
[2017-07-30] MEDS ORDERED: IPRATROPIUM-ALBUTEROL 3 ML NEB INHALATION PRN (19:29)
--- NOTE | 2017-07-30 19:29 | ED ---
General Adult HPI - General Chief complaint: Shortness of Breath Stated complaint: SOB Time Seen by Provider: 07/30/17 19:10 Source: patient, RN notes reviewed Mode of arrival: ambulatory Limitations: no limitations - History of Present Illness Initial comments: Patient is a 61-year-old male who has a history of COPD, who presents emergency room today with a chief complaint of increased cough congestion over the last 2 weeks. Patient was admitted and diagnosed with pneumonia. He states he saw his family doctor earlier today was told that pneumonia was still present is given a new prescription of antibiotics. Patient was seen here in the emergency room earlier for this complaint discharged home. States that he still experiencing cough congestion and not having any improvement of symptoms with breathing treatments at home. Patient states that these are the same symptoms that he hasn't been experiencing but again states no improvement. Patient denies any recent back pain, abdominal pain, nausea or vomiting, numbness or tingling, dysuria or hematuria, constipation or diarrhea, headaches or visual changes, or any other complaints. - Related Data Home Medications Medication Instructions Recorded Confirmed Montelukast [Singulair] 10 mg PO DAILY 03/16/14 07/30/17 amLODIPine [Norvasc] 5 mg PO QAM 07/05/14 07/30/17 ALPRAZolam [Xanax] 1 mg PO TID 09/20/15 07/30/17 Fluticasone/Vilanterol [Breo 1 puff INHALATION RT-DAILY 07/16/16 07/30/17 Ellipta 100-25 Mcg Inhaler] Desvenlafaxine [Pristiq ER] 100 mg PO DAILY 09/23/16 07/30/17 Umeclidinium [place] [Incruse 1 puff INHALATION RT-DAILY 10/08/16 07/30/17 Ellipta] Hydrocodone/Acetaminophen [[place] 1 tab PO QID PRN 11/06/16 07/30/17 10-325] Albuterol Inhaler [Ventolin Hfa 2 puff INHALATION RT-QID PRN 05/28/17 07/30/17 Inhaler] Famotidine [Pepcid] 20 mg PO DAILY 05/28/17 07/30/17 Lurasidone HCl [Latuda] 20 mg PO DAILY 06/27/17 07/30/17 predniSONE See Taper PO DAILY 07/26/17 07/30/17 Previous Rx's Medication Instructions Recorded Gabapentin [Neurontin] 100 mg PO TID #21 cap 07/07/17 Allergies Allergy/AdvReac Type Severity Reaction Status Date / Time peanut Allergy alg testing Verified 07/30/17 19:10 pollen extracts Allergy Unknown Verified 07/30/17 19:10 DUST Allergy alg testing Uncoded 07/30/17 11:35 Review of Systems ROS Statement: Those systems with pertinent positive or pertinent negative responses have been documented in the HPI. ROS Other: All systems not noted in ROS Statement are negative. Past Medical History Past Medical History: Atrial Flutter, Asthma, Chest Pain / Angina, COPD, GERD/ Reflux, Hypertension, Osteoarthritis (OA), Pneumonia, Sleep Apnea/CPAP/BIPAP Additional Past Medical History / Comment(s): Chronic neck and back pain, shingles. History of Any Multi-Drug Resistant Organisms: None Reported Past Surgical History: Adenoidectomy, Bowel Resection, Breast Surgery, Cholecystectomy Additional Past Surgical History / Comment(s): REMOVAL OF UVULA. bowel resection for large polyps, colonoscopy with polypectomies, nasal surgery x 2, bronchoscopy with lung bx, pain clinic procedures. Past Anesthesia/Blood Transfusion Reactions: Previous Problems w/ Anesthesia Additional Past Anesthesia/Blood Transfusion Reaction / Comment(s): states "during procedure of checking something on my left lung,I turned blue and I was brought right back out anesthesia and proc was cancelled" Past Psychological History: Anxiety, Bipolar, Depression, Panic Disorder Smoking Status: Former smoker Past Alcohol Use History: Occasional Past Drug Use History: None Reported - Past Family History Mother Family Medical History: Asthma Father Family Medical History: CVA/TIA General Exam - General Exam Comments Initial Comments: General: The patient is awake and alert, in no distress, and does not appear acutely ill. Eye: Pupils are equal, round and reactive to light, extra-ocular movements are intact. No nystagmus. There is normal conjunctiva bilaterally. No signs of icterus. Ears, nose, mouth and throat: There are moist mucous membranes and no oral lesions. Neck: The neck is supple, there is no tenderness or JVD. Cardiovascular: There is a regular rate and rhythm. No murmur, rub or gallop is appreciated. Respiratory: Expiratory wheeze bilaterally. respirations are non-labored, breath sounds are equal. No stridor, rales, or rhonchi. Musculoskeletal: Normal ROM, no tenderness. Strength 5/5. Sensation intact. Pulses equal bilaterally 2+. Neurological: A&O x 3. CN II-XII intact, There are no obvious motor or sensory deficits. Coordination appears grossly intact. Speech is normal. Skin: Skin is warm and dry and no rashes or lesions are noted. Psychiatric: Cooperative, appropriate mood & affect, normal judgment. Limitations: no limitations Course Vital Signs 07/30/17 17:32 Temperature 100.4 F H Pulse Rate 104 H Respiratory 20 Rate Blood Pressure 139/80 O2 Sat by Pulse 94 L Oximetry Medical Decision Making - Medical Decision Making Patient does have low-grade fever. Pulse ox currently 94% on room air. We given breathing treatments and steroids or the emergency room. Case discussed with attending physician Dr. Reynoso did discuss case with admitting physician Dr. Lulu victoria with the patient for COPD exacerbation. Disposition Clinical Impression: COPD exacerbation, Bronchitis Disposition: ADMITTED IP TO THIS HOSP Referrals: Michael Nuñez MD [Primary Care Provider] - 1-2 days Time of Disposition: 19:29
[2017-07-30] MEDS ORDERED: cefTRIAXone IN SWFI 1,000 MG/10 ML SYRINGE IVP STA (19:31)
[2017-07-30 19:56] LABS: Appearance,Urine Clear (Clear); Bilirubin,Urine Negative (Negative); Blood,Urine Negative (Negative); Color,Urine Yellow; Glucose,Urine (UA) Negative (Negative); Ketones,Urine Trace (Negative); Leukocyte Esterase,Urine Negative (Negative); Nitrite,Urine Negative (Negative); Protein,Urine Trace (Negative); Urobilinogen,Urine <2.0 mg/dL (<2.0)
[2017-07-30 22:49] VITALS: BMI 35.2
[2017-07-30] MEDS ORDERED: ACETAMINOPHEN TAB 325 MG TAB PO PRN (22:50)
[2017-07-30] MEDS ORDERED: ALBUTEROL INHALER 60 PUFF/8 GM INHALER INHALATION PRN (22:53)
[2017-07-31] MEDS: methylPREDNISolone SOD SUCCI 125 MG/2 ML VIAL IV SCH ×4 (00:10→17:59)
[2017-07-31] MEDS: IBUPROFEN 800 MG TAB PO PRN (05:02)
[2017-07-31 06:56] LABS: Basophils % (A) 0 %; Eosinophils % (A) 0 %; HCT 43.6 % (39.0-53.0); HGB 13.8 gm/dL (13.0-17.5); Lymphocytes # (A) 0.3 k/uL (1.0-4.8); Lymphocytes % (A) 5 %; MCH 34.5 pg (25.0-35.0); MCHC 31.6 g/dL (31.0-37.0); Macrocytosis Marked; Mean Platelet Volume 7.8; Monocytes # (A) 0.1 k/uL (0-1.0); Monocytes % (A) 3 %; Neutrophils # (A) 4.5 k/uL (1.3-7.7); Neutrophils % (A) 92 %; Platelet Count 97 k/uL (150-450); RBC 3.99 m/uL (4.30-5.90); RDW 15.2 % (11.5-15.5); WBC 4.9 k/uL (3.8-10.6)
[2017-07-31 07:01] LABS: MCV 109.2 fL (80.0-100.0)
[2017-07-31] MEDS: SYMBICORT 80-4.5 MCG INHALER INHALATION SCH ×2 (07:27→20:06)
[2017-07-31] MEDS: IPRATROPIUM 0.5 MG/2.5 ML NEBU INHALATION SCH ×4 (07:28→20:05)
[2017-07-31 07:34] LABS: ALT 172 U/L (21-72); AST 57 U/L (17-59); Albumin 3.7 g/dL (3.5-5.0); Alkaline Phosphatase 75 U/L (38-126); Anion Gap 7 mmol/L; Blood Urea Nitrogen 19 mg/dL (9-20); Calcium 8.9 mg/dL (8.4-10.2); Carbon Dioxide 28 mmol/L (22-30); Chloride 103 mmol/L (98-107); Glucose 154 mg/dL (74-99); Potassium 4.6 mmol/L (3.5-5.1); Sodium 138 mmol/L (137-145); Total Bilirubin 0.5 mg/dL (0.2-1.3); Total Protein 5.9 g/dL (6.3-8.2)
[2017-07-31] MEDS: AZITHROMYCIN 500 MG in SODIUM CHLORIDE 0.9% 250 ML IVPB SCH (07:40)
[2017-07-31] MEDS: LURASIDONE 40 MG TAB PO SCH (07:40)
[2017-07-31] MEDS: GABAPENTIN 100 MG CAP PO SCH ×3 (07:41→21:52)
[2017-07-31] MEDS: DESVENLAFAXINE SUCCINATE 50 MG TAB.ER.24H PO SCH (07:41)
[2017-07-31] MEDS: MONTELUKAST 10 MG TAB PO SCH (07:41)
[2017-07-31] MEDS: FAMOTIDINE 20 MG TAB PO SCH (07:41)
[2017-07-31] MEDS: amLODIPine 5 MG TAB PO SCH (07:41)
[2017-07-31] MEDS ORDERED: HYDROCHLOROTHIAZIDE 25 MG TAB PO ONE (11:45)
[2017-07-31] MEDS: HYDROcodone/APAP 10-325MG 1 EACH TAB PO PRN ×2 (12:20→18:04)
--- NOTE | 2017-07-31 13:35 | P.HPIM ---
History of Present Illness H&P Date: 07/31/17 Chief Complaint: Wheezing and shortness of breath chest discomfort Patient is 61-year-old male well-known to my practice with a history of COPD presents to the emergency room 2 times today and was seen in my office patient complains of increased cough congestion over last 2 weeks patient was recently discharged from the hospital with a pneumonia and feels like it never resolved patient was seen yesterday in the office given 1 g of Rocephin IM and was given a prescription for Biaxin 500 mg twice daily and shifted to return to the office in or on Wednesday after the 's holiday. Patient went from my office to the emergency room was given an updraft treatment and another shot gram of Rocephin and sent home and then returned to the emergency room again later that afternoon patient is admitted with a complaint of dyspnea and difficulty breathing. He admits today that he had not been using his long- acting beta agonist and his inhaled steroids properly patient also admits that he has not been taking his anti-A anxiety meds and his antidepressants appropriately he wants to start had not be able to stop taking them but he gets panicky because he has difficulty breathing and the shortness of breath. The panic and the panic gets worse we had a long talk today and the patient room about using his meds appropriately and that if he used his meds appropriately he wouldn't get into this kind of trouble. This individual also has a tendency when admitted to the hospital to requesting Dilaudid or some other peranterol narcotic for pain management. Review of Systems Constitutional: Reports fever Ears, nose, mouth and throat: Reports as per HPI Cardiovascular: Reports as per HPI Respiratory: Reports congestion, Reports cough, Reports cough with sputum, Reports dyspnea, Reports pain on inspiration Gastrointestinal: Reports as per HPI Genitourinary: Reports as per HPI Musculoskeletal: Reports as per HPI Integumentary: Reports as per HPI Neurological: Reports as per HPI Psychiatric: Reports anxiety, Reports depression, Reports paranoia Endocrine: Reports as per HPI Past Medical History Past Medical History: Atrial Flutter, Asthma, Chest Pain / Angina, COPD, GERD/ Reflux, Hypertension, Osteoarthritis (OA), Pneumonia, Sleep Apnea/CPAP/BIPAP Additional Past Medical History / Comment(s): Chronic neck and back pain, shingles. History of Any Multi-Drug Resistant Organisms: None Reported Past Surgical History: Adenoidectomy, Bowel Resection, Breast Surgery, Cholecystectomy Additional Past Surgical History / Comment(s): REMOVAL OF UVULA. bowel resection for large polyps, colonoscopy with polypectomies, nasal surgery x 2, bronchoscopy with lung bx, pain clinic procedures. Past Anesthesia/Blood Transfusion Reactions: Previous Problems w/ Anesthesia Additional Past Anesthesia/Blood Transfusion Reaction / Comment(s): states "during procedure of checking something on my left lung,I turned blue and I was brought right back out anesthesia and proc was cancelled" Past Psychological History: Anxiety, Bipolar, Depression, Panic Disorder Additional Psychological History / Comment(s): Pt resides alone in an apartment. He uses a cane to ambulate. There are several stairs in his apt. He has a nebulizer. Smoking Status: Former smoker Past Alcohol Use History: Occasional Additional Past Alcohol Use History / Comment(s): Pt quit smoking in the 1979. He had been a ppd smoker for about 15 yrs. Past Drug Use History: None Reported - Past Family History Mother Family Medical History: Asthma Father Family Medical History: CVA/TIA Medications and Allergies Home Medications Medication Instructions Recorded Confirmed Type Montelukast [Singulair] 10 mg PO DAILY 03/16/14 07/30/17 History amLODIPine [Norvasc] 5 mg PO QAM 07/05/14 07/30/17 History ALPRAZolam [Xanax] 1 mg PO TID 09/20/15 07/30/17 History Fluticasone/Vilanterol [Breo 1 puff INHALATION RT-DAILY 07/16/16 07/30/17 History Ellipta 100-25 Mcg Inhaler] Desvenlafaxine [Pristiq ER] 100 mg PO DAILY 09/23/16 07/30/17 History Umeclidinium [place] [Incruse 1 puff INHALATION RT-DAILY 10/08/16 07/30/17 History Ellipta] Hydrocodone/Acetaminophen [[place] 1 tab PO QID PRN 11/06/16 07/30/17 History 10-325] Albuterol Inhaler [Ventolin Hfa 2 puff INHALATION RT-QID PRN 05/28/17 07/30/17 History Inhaler] Famotidine [Pepcid] 20 mg PO DAILY 05/28/17 07/30/17 History Lurasidone HCl [Latuda] 20 mg PO DAILY 06/27/17 07/30/17 History Gabapentin [Neurontin] 100 mg PO TID #21 cap 07/07/17 07/30/17 Rx predniSONE See Taper PO DAILY 07/26/17 07/30/17 History Allergies Allergy/AdvReac Type Severity Reaction Status Date / Time peanut Allergy alg testing Verified 07/30/17 19:10 pollen extracts Allergy Unknown Verified 07/30/17 19:10 DUST Allergy alg testing Uncoded 07/30/17 11:35 Physical Exam Osteopathic Statement: *. No significant issues noted on an osteopathic structural exam other than those noted in the History and Physical/Consult. Vitals: Vital Signs Temp Pulse Pulse Resp BP BP Pulse Ox 07/31/17 11:16 90 07/31/17 11:06 90 07/31/17 09:29 91 186/86 07/31/17 07:38 86 07/31/17 07:29 86 07/31/17 07:00 96.8 F L 77 18 204/109 95 07/30/17 23:00 97.8 F 81 20 141/92 94 L 07/30/17 20:00 99.8 F H 94 20 137/86 94 L 07/30/17 19:56 100.8 F H 93 19 149/70 93 L 07/30/17 19:46 96 18 07/30/17 19:37 96 16 07/30/17 17:32 100.4 F H 104 H 20 139/80 94 L Intake and Output 07/30/17 07/31/17 07/31/17 22:59 06:59 14:59 Intake Total 1001 Balance 1001 Intake: Oral 1001 Other: # Voids 1 Weight 108 kg General: [Patient awake, alert and oriented times 3. Patient in no acute distress.] HEENT: [PERRL. EOMI. No pharyngeal erythema or exudate.] Neck: [No adenopathy.] Cardiac: [Heart regular in rate and rhythm. No S3. No S4. No clicks, rubs. No murmur.] Lungs: Diminished to auscultation bilaterally, bibasilar crackles Abdomen: [No mass. No organomegaly. Bowel sounds presnt and normoactive in all 4 quadrants.] Extremes: [No edema no cyanosis no claudication normal pulses] : [] Musculoskeletal: [No joint erythema, edema or tenderness.] Skin: [No rash.] Neurologic: [No lateralizing deficits. CN II - XII grossly intact.] Lymphatic: [No adenopathy.] Results CBC & Chem 7: 07/31/17 06:17 07/31/17 06:17 Labs: Abnormal Lab Results - Last 24 Hours (Table) 07/30/17 07/31/17 07/31/17 Range/Units 19:36 06:17 06:17 RBC 3.99 L (4.30-5.90) m/uL MCV 109.2 H D (80.0-100.0) fL Plt Count 97 L (150-450) k/uL Lymphocytes # 0.3 L (1.0-4.8) k/uL Glucose 154 H (74-99) mg/dL ALT 172 H (21-72) U/L Total Protein 5.9 L (6.3-8.2) g/dL Urine Protein Trace H (Negative) Urine Ketones Trace H (Negative) Thrombosis Risk Factor Assmnt - DVT/VTE Prophylaxis DVT/VTE Prophylaxis: Low risk, early ambulation encouraged - Choose All That Apply Any of the Below Risk Factors Present?: Yes Each Factor Represents 1 point: Abnormal pulmonary function (COPD), Age 41-60 years Thrombosis Risk Factor Assessment Total Risk Factor Score: 2 Thrombosis Risk Factor Assessment Level: Low Risk Assessment and Plan (1) COPD exacerbation Narrative/Plan: Acute exacerbation chronic COPD patient admittedly does not use his Treatments long-acting beta agonists and inhaled steroids properly He discussed this at length, patient is also started on IV Rocephin and IV Zithromax We'll get chest x-ray Patient is using long-acting beta agonists and inhaled steroids and IV steroids We'll reassess in the morning Current Visit: Yes Status: Acute Code(s): J44.1 - CHRONIC OBSTRUCTIVE PULMONARY DISEASE W (ACUTE) EXACERBATION SNOMED Code(s): 596348368865228 (2) Acute exacerbation of chronic obstructive airways disease Narrative/Plan: As stated above Current Visit: No Status: Acute Code(s): J44.1 - CHRONIC OBSTRUCTIVE PULMONARY DISEASE W (ACUTE) EXACERBATION SNOMED Code(s): 517355651 Plan: Discussed at length how he should use his anxiolytic meds This patient was taking latuda when necessary was instructed that this should be taken daily scheduled Had his Xanax to be taken for acute panic attacks Also talked with patient instructed him that his Advair should be taken daily and add as needed Has albuterol nebulizer treatments should be taken as needed for shortness of breath Patient has been started on IV steroids, IV antibiotics We will reevaluate in the morning Time with Patient: Greater than 30
[2017-07-31] MEDS: CHLORPHEN-HYDROcod 8-10mg/5ml 5 ML ORAL.SYRG PO SCH ×2 (14:16→21:52)
[2017-07-31] MEDS: ALPRAZolam 0.5 MG TAB PO SCH ×2 (15:14→21:52)
[2017-07-31] MEDS: cefTRIAXone IN SWFI 1,000 MG/10 ML SYRINGE IVP SCH (21:57)
[2017-08-01] MEDS: methylPREDNISolone SOD SUCCI 125 MG/2 ML VIAL IV SCH ×5 (00:10→23:27)
[2017-08-01] MEDS: HYDROcodone/APAP 10-325MG 1 EACH TAB PO PRN ×5 (00:13→23:27)
[2017-08-01 07:30] VITALS: RESP 18
[2017-08-01] MEDS: SYMBICORT 80-4.5 MCG INHALER INHALATION SCH ×2 (07:50→20:06)
[2017-08-01] MEDS: IPRATROPIUM 0.5 MG/2.5 ML NEBU INHALATION SCH ×4 (07:50→20:05)
[2017-08-01] MEDS: DESVENLAFAXINE SUCCINATE 50 MG TAB.ER.24H PO SCH (08:00)
[2017-08-01] MEDS: GABAPENTIN 100 MG CAP PO SCH ×3 (08:01→20:53)
[2017-08-01] MEDS: LURASIDONE 40 MG TAB PO SCH (08:01)
[2017-08-01] MEDS: FAMOTIDINE 20 MG TAB PO SCH (08:01)
[2017-08-01] MEDS: amLODIPine 5 MG TAB PO SCH (08:01)
[2017-08-01] MEDS: MONTELUKAST 10 MG TAB PO SCH (08:01)
[2017-08-01] MEDS: AZITHROMYCIN 500 MG in SODIUM CHLORIDE 0.9% 250 ML IVPB SCH (08:01)
[2017-08-01] MEDS: CHLORPHEN-HYDROcod 8-10mg/5ml 5 ML ORAL.SYRG PO SCH ×2 (08:02→20:53)
[2017-08-01] MEDS: ALPRAZolam 0.5 MG TAB PO SCH ×3 (08:10→18:30)
--- NOTE | 2017-08-01 12:58 | P.PN ---
Subjective Progress Note Date: 08/01/17 Principal diagnosis: Acute exacerbation chronic COPD Patient is appropriately utilizing all meds at this time symptoms seem to be improving Objective - Vital Signs Vital signs: Vital Signs Temp 96.1 F L 08/01/17 07:00 Pulse 66 08/01/17 11:52 Resp 18 08/01/17 07:00 BP 151/87 08/01/17 07:00 Pulse Ox 92 L 08/01/17 07:00 Intake & Output 07/31/17 08/01/17 08/01/17 18:59 06:59 18:59 Intake Total 600 250 Output Total 600 400 Balance -600 600 -150 Weight 108 kg Intake: Intake, IV Titration 250 Amount Azithromycin 500 mg In 250 Sodium Chloride 0.9% 250 ml @ 125 mls/hr IVPB DAILY [facility] Rx#:[id number] Oral 600 Output: Urine 600 400 Other: Voiding Method Urinal Urinal Urinal # Voids 2 4 - Exam General: [Patient awake, alert and oriented times 3. Patient in no acute distress.] HEENT: [PERRL. EOMI. No pharyngeal erythema or exudate.] Neck: [No adenopathy.] Cardiac: [Heart regular in rate and rhythm. No S3. No S4. No clicks, rubs. No murmur.] Lungs: [Clear to auscultation bilaterally.] Abdomen: [No mass. No organomegaly. Bowel sounds presnt and normoactive in all 4 quadrants.] Extremes: [No edema no cyanosis no claudication normal pulses] : [] Musculoskeletal: [No joint erythema, edema or tenderness.] Skin: [No rash.] Neurologic: [No lateralizing deficits. CN II - XII grossly intact.] Lymphatic: [No adenopathy.] - Labs CBC & Chem 7: 07/31/17 06:17 07/31/17 06:17 Labs: Microbiology - Last 24 Hours (Table) 07/30/17 19:36 Blood Culture - Preliminary Blood No Growth after 24 hours Assessment and Plan (1) COPD exacerbation Narrative/Plan: Acute exacerbation chronic COPD patient admittedly does not use his Treatments long-acting beta agonists and inhaled steroids properly He discussed this at length, patient is also started on IV Rocephin and IV Zithromax We'll get chest x-ray Patient is using long-acting beta agonists and inhaled steroids and IV steroids We'll reassess in the morning Current Visit: Yes Status: Acute Code(s): J44.1 - CHRONIC OBSTRUCTIVE PULMONARY DISEASE W (ACUTE) EXACERBATION SNOMED Code(s): 300106183944919 (2) Acute exacerbation of chronic obstructive airways disease Narrative/Plan: As stated above Current Visit: No Status: Acute Code(s): J44.1 - CHRONIC OBSTRUCTIVE PULMONARY DISEASE W (ACUTE) EXACERBATION SNOMED Code(s): 506909948 Plan: Discussed at length how he should use his anxiolytic meds This patient was taking latuda when necessary was instructed that this should be taken daily scheduled Had his Xanax to be taken for acute panic attacks Also talked with patient instructed him that his Advair should be taken daily and add as needed Has albuterol nebulizer treatments should be taken as needed for shortness of breath Patient has been started on IV steroids, IV antibiotics We will reevaluate in the morning Time with Patient: Greater than 30
[2017-08-01] MEDS: cefTRIAXone IN SWFI 1,000 MG/10 ML SYRINGE IVP SCH (20:53)
[2017-08-01] MEDS: IBUPROFEN 800 MG TAB PO PRN (21:28)
[2017-08-02] MEDS: methylPREDNISolone SOD SUCCI 125 MG/2 ML VIAL IV SCH ×2 (04:58→13:00)
[2017-08-02] MEDS: HYDROcodone/APAP 10-325MG 1 EACH TAB PO PRN ×2 (04:58→10:58)
[2017-08-02] MEDS: IPRATROPIUM 0.5 MG/2.5 ML NEBU INHALATION SCH ×2 (07:46→11:47)
[2017-08-02] MEDS: SYMBICORT 80-4.5 MCG INHALER INHALATION SCH (07:46)
[2017-08-02] MEDS: ALPRAZolam 0.5 MG TAB PO SCH (08:23)
[2017-08-02] MEDS: FAMOTIDINE 20 MG TAB PO SCH (08:24)
[2017-08-02] MEDS: DESVENLAFAXINE SUCCINATE 50 MG TAB.ER.24H PO SCH (08:24)
[2017-08-02] MEDS: amLODIPine 5 MG TAB PO SCH (08:24)
[2017-08-02] MEDS: MONTELUKAST 10 MG TAB PO SCH (08:24)
[2017-08-02] MEDS: GABAPENTIN 100 MG CAP PO SCH (08:24)
[2017-08-02 08:29] VITALS: BP 180/100; TEMP 97.5
[2017-08-02] MEDS: CHLORPHEN-HYDROcod 8-10mg/5ml 5 ML ORAL.SYRG PO SCH (08:36)
[2017-08-02] MEDS: AZITHROMYCIN 500 MG in SODIUM CHLORIDE 0.9% 250 ML IVPB SCH (10:51)
[2017-08-02] MEDS: LURASIDONE 40 MG TAB PO SCH (10:51)
[2017-08-02 12:03] VITALS: PULSE 68
--- NOTE | 2017-08-02 12:25 | P.DS ---
Providers Date of admission: 07/30/17 19:30 Expected date of discharge: 08/02/17 Attending physician: Genaro Lawson Consults: None Primary care physician: Michael Nuñez - Discharge Diagnosis(es) (1) COPD exacerbation Acute exacerbation chronic COPD, improved patient being discharged home on long- acting beta agonist inhaled inhaled steroids A tapering dose of oral steroids 50 for 5 days 40 mg for 4 days 30 mg for 3 days 20 mg for 2 days 10 mg for 1 day We'll reevaluate patient in the office Current Visit: Yes Status: Acute (2) Acute exacerbation of chronic obstructive airways disease Current Visit: No Status: Acute Hospital Course: General: [Patient awake, alert and oriented times 3. Patient in no acute distress.] HEENT: [PERRL. EOMI. No pharyngeal erythema or exudate.] Neck: [No adenopathy.] Cardiac: [Heart regular in rate and rhythm. No S3. No S4. No clicks, rubs. No murmur.] Lungs: [Clear to auscultation bilaterally.] Abdomen: [No mass. No organomegaly. Bowel sounds presnt and normoactive in all 4 quadrants.] Extremes: [No edema no cyanosis no claudication normal pulses] : [] Musculoskeletal: [No joint erythema, edema or tenderness.] Skin: [No rash.] Neurologic: [No lateralizing deficits. CN II - XII grossly intact.] Lymphatic: [No adenopathy.] Patient Condition at Discharge: Fair Plan - Discharge Summary New Discharge Prescriptions: No Action Montelukast [Singulair] 10 mg PO DAILY amLODIPine [Norvasc] 5 mg PO QAM ALPRAZolam [Xanax] 1 mg PO TID Fluticasone/Vilanterol [Breo Ellipta 100-25 Mcg Inhaler] 1 puff INHALATION RT -DAILY Desvenlafaxine [Pristiq ER] 100 mg PO DAILY Umeclidinium [place] [Incruse Ellipta] 1 puff INHALATION RT-DAILY Hydrocodone/Acetaminophen [[place] 10-325] 1 tab PO QID PRN PRN Reason: Pain Albuterol Inhaler [Ventolin Hfa Inhaler] 2 puff INHALATION RT-QID PRN PRN Reason: Shortness Of Breath Famotidine [Pepcid] 20 mg PO DAILY Lurasidone HCl [Latuda] 20 mg PO DAILY Gabapentin [Neurontin] 100 mg PO TID #21 cap predniSONE See Taper PO DAILY Discharge Medication List Montelukast [Singulair] 10 mg PO DAILY 03/16/14 [History] amLODIPine [Norvasc] 5 mg PO QAM 07/05/14 [History] ALPRAZolam [Xanax] 1 mg PO TID 09/20/15 [History] Fluticasone/Vilanterol [Breo Ellipta 100-25 Mcg Inhaler] 1 puff INHALATION RT- DAILY 07/16/16 [History] Desvenlafaxine [Pristiq ER] 100 mg PO DAILY 09/23/16 [History] Umeclidinium [place] [Incruse Ellipta] 1 puff INHALATION RT-DAILY 10/08/16 [ History] Hydrocodone/Acetaminophen [[place] 10-325] 1 tab PO QID PRN 11/06/16 [History] Albuterol Inhaler [Ventolin Hfa Inhaler] 2 puff INHALATION RT-QID PRN 05/28/17 [ History] Famotidine [Pepcid] 20 mg PO DAILY 05/28/17 [History] Lurasidone HCl [Latuda] 20 mg PO DAILY 06/27/17 [History] Gabapentin [Neurontin] 100 mg PO TID #21 cap 07/07/17 [Rx] predniSONE See Taper PO DAILY 07/26/17 [History] Follow up Appointment(s)/Referral(s): Michael Nuñez MD [Primary Care Provider] - 1-2 days
== END 2017-08-02 13:00 | disposition home or self-care (01) ==
LOC: EC 17:30 → 4MS4W 19:30 → 3OBS 08-01 20:01
PROVIDERS: ADMIT Family Medicine; ATTEND Family Medicine
DX: J44.0 Chronic obstructive pulmonary disease with (acute) lower respiratory infection (principal); J18.9 Pneumonia, unspecified organism; J44.1 Chronic obstructive pulmonary disease with (acute) exacerbation; K21.9 Gastro-esophageal reflux disease without esophagitis; I10 Essential (primary) hypertension; G47.30 Sleep apnea, unspecified; M19.90 Unspecified osteoarthritis, unspecified site; I48.92 Unspecified atrial flutter; M54.2 Cervicalgia; M54.9 Dorsalgia, unspecified; G89.29 Other chronic pain; Z79.899 Other long term (current) drug therapy; Z79.51 Long term (current) use of inhaled steroids; Z91.010 Allergy to peanuts; Z91.048 Other nonmedicinal substance allergy status; Z99.89 Dependence on other enabling machines and devices; F41.0 Panic disorder [episodic paroxysmal anxiety]; F31.9 Bipolar disorder, unspecified; Z82.5 Family history of asthma and other chronic lower respiratory diseases; Z87.891 Personal history of nicotine dependence
CPT/HCPCS: 96361 ×3; 96365; 96366 ×3; 96376 ×4; 96374; 96375; 99284; 99285; 36415; 94640 ×8; 93005; 80053 ×2; 83605; 84484; 85025 ×2; 81003; 87040; 87086; 87502; 71020; G0378 ×5; J2060; J2930 ×4; J2405; J0456 ×3; J0696 ×3; J1170

== ENCOUNTER 2017-09-14 22:52 | Emergency (ER) | payer MEDICARE, OTHER ==
--- NOTE | 2017-09-14 23:36 | ED ---
General Adult HPI - General Chief complaint: Back Pain/Injury Stated complaint: Fall Time Seen by Provider: 09/14/17 23:07 Source: patient, RN notes reviewed, old records reviewed Mode of arrival: ambulatory Limitations: no limitations - History of Present Illness Initial comments: Patient is a pleasant 61-year-old male presenting to the emergency Department with back pain. Patient had a fall a few days ago and another fall today. Patient states he does frequently fall. Patient requests pain medication. Patient does have a history of chronic acting chronic neck pain. Patient states at this time his lower back is bothering him more. No incontinence or retention of bowel or bladder. No weakness. Patient is unclear if he had direct trauma to the area or not. No head injury or loss of consciousness. - Related Data Home Medications Medication Instructions Recorded Confirmed Montelukast [Singulair] 10 mg PO DAILY 03/16/14 09/14/17 amLODIPine [Norvasc] 5 mg PO QAM 07/05/14 09/14/17 ALPRAZolam [Xanax] 1 mg PO TID 09/20/15 09/14/17 Fluticasone/Vilanterol [Breo 1 puff INHALATION RT-DAILY 07/16/16 09/14/17 Ellipta 100-25 Mcg Inhaler] Desvenlafaxine [Pristiq ER] 100 mg PO DAILY 09/23/16 09/14/17 Umeclidinium [place] [Incruse 1 puff INHALATION RT-DAILY 10/08/16 09/14/17 Ellipta] Hydrocodone/Acetaminophen [[place] 1 tab PO QID PRN 11/06/16 09/14/17 10-325] Albuterol Inhaler [Ventolin Hfa 2 puff INHALATION RT-QID PRN 05/28/17 09/14/17 Inhaler] Famotidine [Pepcid] 20 mg PO DAILY 05/28/17 09/14/17 Lurasidone HCl [Latuda] 20 mg PO DAILY 06/27/17 09/14/17 predniSONE 5 mg PO DAILY 09/14/17 09/14/17 Previous Rx's Medication Instructions Recorded Gabapentin [Neurontin] 100 mg PO TID #21 cap 07/07/17 Allergies Allergy/AdvReac Type Severity Reaction Status Date / Time peanut Allergy alg testing Verified 09/14/17 23:14 pollen extracts Allergy Unknown Verified 09/14/17 23:14 DUST Allergy alg testing Uncoded 09/14/17 22:57 Review of Systems ROS Statement: Those systems with pertinent positive or pertinent negative responses have been documented in the HPI. ROS Other: All systems not noted in ROS Statement are negative. Constitutional: Denies: fever Eyes: Denies: eye pain ENT: Denies: ear pain Respiratory: Denies: cough Cardiovascular: Denies: chest pain Endocrine: Denies: fatigue Gastrointestinal: Denies: abdominal pain Genitourinary: Denies: dysuria Musculoskeletal: Reports: back pain Skin: Denies: rash Neurological: Denies: weakness Past Medical History Past Medical History: Atrial Flutter, Asthma, Chest Pain / Angina, COPD, GERD/ Reflux, Hypertension, Osteoarthritis (OA), Pneumonia, Sleep Apnea/CPAP/BIPAP Additional Past Medical History / Comment(s): Chronic neck and back pain, shingles. History of Any Multi-Drug Resistant Organisms: None Reported Past Surgical History: Adenoidectomy, Bowel Resection, Breast Surgery, Cholecystectomy Additional Past Surgical History / Comment(s): REMOVAL OF UVULA. bowel resection for large polyps, colonoscopy with polypectomies, nasal surgery x 2, bronchoscopy with lung bx, pain clinic procedures. Past Anesthesia/Blood Transfusion Reactions: Previous Problems w/ Anesthesia Additional Past Anesthesia/Blood Transfusion Reaction / Comment(s): states "during procedure of checking something on my left lung,I turned blue and I was brought right back out anesthesia and proc was cancelled" Past Psychological History: Anxiety, Bipolar, Depression, Panic Disorder Smoking Status: Former smoker Past Alcohol Use History: Occasional Past Drug Use History: None Reported - Past Family History Mother Family Medical History: Asthma Father Family Medical History: CVA/TIA General Exam Limitations: no limitations General appearance: alert, in no apparent distress Head exam: Present: atraumatic Eye exam: Present: normal appearance, PERRL ENT exam: Present: normal oropharynx Neck exam: Present: normal inspection. Absent: tenderness Respiratory exam: Present: normal lung sounds bilaterally Cardiovascular Exam: Present: regular rate, normal rhythm GI/Abdominal exam: Present: soft. Absent: distended, tenderness Extremities exam: Present: normal inspection Back exam: Present: tenderness (Moderate tenderness lower lumbar region.) Neurological exam: Present: alert. Absent: motor sensory deficit Expanded Sensory exam: Lower Extremity Light Touch: Normal Motor strength exam: RLE: 5, LLE: 5 Psychiatric exam: Present: normal affect, normal mood Skin exam: Present: normal color. Absent: rash Course Vital Signs 09/14/17 22:55 Temperature 98.6 F Pulse Rate 85 Respiratory 20 Rate Blood Pressure 130/83 O2 Sat by Pulse 95 Oximetry - Reevaluation(s) Reevaluation #1: 09/14/17 23:35 Patient has had multiple previous visits for back pain. MAPS report reviewed and is concerning. Medical Decision Making - Medical Decision Making Patient reevaluated and resting comfortably in bed. Patient requests narcotic medications. Patient is updated regarding my concern for his frequent visits and chronic opiate use. - Radiology Data Radiology results: image reviewed (Lumbar x-ray shows degenerative changes, mild. No fracture. No change.) Disposition Clinical Impression: Chronic pain, Low back pain Disposition: HOME SELF-CARE Condition: Stable Instructions: Chronic Back Pain (ED) Additional Instructions: Please follow-up to in the next day or 2 for recheck. Consider decreasing use of opioids. Return for weakness, fever, loss of control of bowel or bladder , worsening symptoms or other concerns. Referrals: Michael Nuñez MD [STAFF PHYSICIAN] - 1-2 days Time of Disposition: 00:09
--- NOTE | 2017-09-14 23:50 | XR ---
EXAMINATION TYPE: XR lumbar spine 2 or 3V DATE OF EXAM: 09/14/2017 COMPARISON: 05/28/2017 HISTORY: Back pain TECHNIQUE: Reviews FINDINGS: Vertebra have normal alignment. There is mild anterior spurring at L3-4 L4-5. Disc spaces a re fairly normal. There is no compression fracture. Posterior elements are intact. Sacroiliac joints appear normal. Abdominal aorta is atheromatous. IMPRESSION: Mild degenerative changes. No fracture. No change.
[2017-09-15 00:21] VITALS: TEMP 97.9
[2017-09-15] MEDS ORDERED: KETOROLAC 30 MG/ML 1 ML VIAL IM STA (00:22)
[2017-09-15 00:28] VITALS: BP 146/81; PULSE 72; RESP 20
== END 2017-09-15 00:28 | disposition home or self-care (01) ==
LOC: EC 22:52
DX: G89.29 Other chronic pain (principal); M54.5 Low back pain; M47.816 Spondylosis without myelopathy or radiculopathy, lumbar region; M54.2 Cervicalgia; I10 Essential (primary) hypertension; J44.9 Chronic obstructive pulmonary disease, unspecified; K21.9 Gastro-esophageal reflux disease without esophagitis; M19.90 Unspecified osteoarthritis, unspecified site; G47.30 Sleep apnea, unspecified; F31.9 Bipolar disorder, unspecified; F41.0 Panic disorder [episodic paroxysmal anxiety]; Z87.891 Personal history of nicotine dependence; Z79.51 Long term (current) use of inhaled steroids; Z79.52 Long term (current) use of systemic steroids; Z79.899 Other long term (current) drug therapy; Z91.010 Allergy to peanuts; Z91.09 Other allergy status, other than to drugs and biological substances; Z86.79 Personal history of other diseases of the circulatory system; Z99.89 Dependence on other enabling machines and devices
CPT/HCPCS: 72100; 99284; 96372; J1885

== ENCOUNTER 2017-10-10 01:37 | Inpatient (IN) | payer MEDICARE, OTHER ==
[2017-10-10] MEDS ORDERED: ALBUTEROL NEBULIZED 2.5 MG/3 ML INHALATION STA (01:50)
[2017-10-10] MEDS ORDERED: methylPREDNISolone SOD SUCCI 125 MG/2 ML VIAL IV STA (01:50)
[2017-10-10] MEDS ORDERED: IPRATROPIUM 0.5 MG/2.5 ML NEBU INHALATION STA (01:50)
--- NOTE | 2017-10-10 03:00 | ED ---
General Adult HPI - General Chief complaint: Shortness of Breath Stated complaint: SOB Time Seen by Provider: 10/10/17 01:47 Source: patient, RN notes reviewed, old records reviewed Mode of arrival: ambulatory Limitations: no limitations - History of Present Illness Initial comments: This is a 7-year-old male to the ER for evasive significant shortness of breath. Weakness dizziness lightheadedness. Patient attempted to get out of bed this morning from the ground. No significant injury or trauma from the fall patient doesn't metoprolol pain. Patient does have history of chronic pain. Patient admits to increased and significant shortness of breath after waking. Patient denies any fevers. Have increased cough and congestion. Mild chest pain - Related Data Home Medications Medication Instructions Recorded Confirmed Montelukast [Singulair] 10 mg PO DAILY 03/16/14 10/10/17 amLODIPine [Norvasc] 5 mg PO QAM 07/05/14 10/10/17 ALPRAZolam [Xanax] 1 mg PO TID 09/20/15 10/10/17 Fluticasone/Vilanterol [Breo 1 puff INHALATION RT-DAILY 07/16/16 10/10/17 Ellipta 100-25 Mcg Inhaler] Desvenlafaxine [Pristiq ER] 100 mg PO DAILY 09/23/16 10/10/17 Umeclidinium [place] [Incruse 1 puff INHALATION RT-DAILY 10/08/16 10/10/17 Ellipta] Hydrocodone/Acetaminophen [[place] 1 tab PO QID PRN 11/06/16 10/10/17 10-325] Albuterol Inhaler [Ventolin Hfa 2 puff INHALATION RT-QID PRN 05/28/17 10/10/17 Inhaler] Famotidine [Pepcid] 20 mg PO DAILY 05/28/17 10/10/17 Lurasidone HCl [Latuda] 20 mg PO DAILY 06/27/17 10/10/17 predniSONE 5 mg PO DAILY 09/14/17 10/10/17 Previous Rx's Medication Instructions Recorded Gabapentin [Neurontin] 100 mg PO TID #21 cap 07/07/17 Allergies Allergy/AdvReac Type Severity Reaction Status Date / Time peanut Allergy alg testing Verified 09/14/17 23:14 pollen extracts Allergy Unknown Verified 09/14/17 23:14 DUST Allergy alg testing Uncoded 09/14/17 22:57 Review of Systems ROS Statement: Those systems with pertinent positive or pertinent negative responses have been documented in the HPI. ROS Other: All systems not noted in ROS Statement are negative. Past Medical History Past Medical History: Atrial Flutter, Asthma, Chest Pain / Angina, COPD, GERD/ Reflux, Hypertension, Osteoarthritis (OA), Pneumonia, Sleep Apnea/CPAP/BIPAP Additional Past Medical History / Comment(s): Chronic neck and back pain, shingles. History of Any Multi-Drug Resistant Organisms: None Reported Past Surgical History: Adenoidectomy, Bowel Resection, Breast Surgery, Cholecystectomy Additional Past Surgical History / Comment(s): REMOVAL OF UVULA. bowel resection for large polyps, colonoscopy with polypectomies, nasal surgery x 2, bronchoscopy with lung bx, pain clinic procedures. Past Anesthesia/Blood Transfusion Reactions: Previous Problems w/ Anesthesia Additional Past Anesthesia/Blood Transfusion Reaction / Comment(s): states "during procedure of checking something on my left lung,I turned blue and I was brought right back out anesthesia and proc was cancelled" Past Psychological History: Anxiety, Bipolar, Depression, Panic Disorder Smoking Status: Former smoker Past Alcohol Use History: Occasional Past Drug Use History: None Reported - Past Family History Mother Family Medical History: Asthma Father Family Medical History: CVA/TIA General Exam Limitations: no limitations General appearance: alert, in no apparent distress Head exam: Present: atraumatic, normocephalic, normal inspection Eye exam: Present: normal appearance, PERRL, EOMI. Absent: scleral icterus, conjunctival injection, periorbital swelling ENT exam: Present: normal exam, mucous membranes moist Neck exam: Present: normal inspection. Absent: tenderness, meningismus, lymphadenopathy Respiratory exam: Present: respiratory distress, wheezes, accessory muscle use, decreased breath sounds, prolonged expiratory. Absent: rales, rhonchi, stridor Cardiovascular Exam: Present: regular rate, normal rhythm, normal heart sounds. Absent: systolic murmur, diastolic murmur, rubs, gallop, clicks GI/Abdominal exam: Present: soft, normal bowel sounds. Absent: distended, tenderness, guarding, rebound, rigid Extremities exam: Present: normal inspection, full ROM, normal capillary refill. Absent: tenderness, pedal edema, joint swelling, calf tenderness Back exam: Present: normal inspection Neurological exam: Present: alert, oriented X3, CN II-XII intact Psychiatric exam: Present: normal affect, normal mood Skin exam: Present: warm, dry, intact, normal color. Absent: rash Course Vital Signs 10/10/17 10/10/17 10/10/17 01:42 03:18 03:42 Temperature 97.1 F L Pulse Rate 60 86 79 Respiratory 22 Rate Blood Pressure 143/71 O2 Sat by Pulse 91 L Oximetry 10/10/17 10/10/17 10/10/17 03:54 04:31 05:25 Temperature 98.0 F Pulse Rate 80 78 77 Respiratory 20 18 Rate Blood Pressure 141/70 134/78 O2 Sat by Pulse 92 L 93 L Oximetry - Reevaluation(s) Reevaluation #1: Patient improved with prolonged breathing treatment and pain control Reevaluation #2: Patient well-known to this facility for similar evaluation complaints EKG Findings - EKG Comments: EKG Findings:: EKG shows sinus rhythm rate of 87, MT 136, QRS 98, QTc 442 Medical Decision Making - Medical Decision Making 61 female the ER for evaluation of cough congestion significant shortness of breath and diffuse pain. Chronic pain. Pain is improved patient was continue significant shortness of breath and will admit for breathing treatments and pulmonary support - Lab Data Result diagrams: 10/10/17 03:14 10/10/17 03:14 Lab Results 10/10/17 10/10/17 10/10/17 Range/Units 03:14 03:14 03:14 WBC (3.8-10.6) k/uL RBC (4.30-5.90) m/uL Hgb (13.0-17.5) gm/dL Hct (39.0-53.0) % MCV (80.0-100.0) fL MCH (25.0-35.0) pg MCHC (31.0-37.0) g/dL RDW (11.5-15.5) % Plt Count (150-450) k/uL Neutrophils % % Lymphocytes % % Monocytes % % Eosinophils % % Basophils % % Neutrophils # (1.3-7.7) k/uL Lymphocytes # (1.0-4.8) k/uL Monocytes # (0-1.0) k/uL Eosinophils # (0-0.7) k/uL Basophils # (0-0.2) k/uL Macrocytosis PT 9.9 (9.0-12.0) sec INR 1.0 (<1.2) APTT 21.5 L (22.0-30.0) sec Sodium 142 (137-145) mmol/L Potassium 4.0 (3.5-5.1) mmol/L Chloride 104 (98-107) mmol/L Carbon Dioxide 25 (22-30) mmol/L Anion Gap 13 mmol/L BUN 23 H (9-20) mg/dL Creatinine 1.00 (0.66-1.25) mg/dL Est GFR (CKD-EPI)AfAm >90 (>60 ml/min/1.73 sqM) Est GFR (CKD-EPI)NonAf 82 (>60 ml/min/1.73 sqM) Glucose 129 H (74-99) mg/dL Calcium 8.7 (8.4-10.2) mg/dL Magnesium 2.2 (1.6-2.3) mg/dL Total Bilirubin 0.3 (0.2-1.3) mg/dL AST 100 H (17-59) U/L ALT 178 H (21-72) U/L Alkaline Phosphatase 76 (38-126) U/L Total Creatine Kinase 63 (55-170) U/L CK-MB (CK-2) 1.5 (0.0-2.4) ng/mL CK-MB (CK-2) Rel Index 2.4 Troponin I <0.012 (0.000-0.034) ng/mL NT-Pro-B Natriuret Pep pg/mL Total Protein 6.4 (6.3-8.2) g/dL Albumin 4.1 (3.5-5.0) g/dL Lipase (23-300) U/L 10/10/1718 10/10/17 Range/Units 03:14 03:14 03:14 WBC 5.9 (3.8-10.6) k/uL RBC 4.32 (4.30-5.90) m/uL Hgb 14.8 (13.0-17.5) gm/dL Hct 44.2 (39.0-53.0) % MCV 102.1 H (80.0-100.0) fL MCH 34.3 (25.0-35.0) pg MCHC 33.6 (31.0-37.0) g/dL RDW 13.7 (11.5-15.5) % Plt Count 179 (150-450) k/uL Neutrophils % 66 % Lymphocytes % 23 % Monocytes % 7 % Eosinophils % 2 % Basophils % 1 % Neutrophils # 3.9 (1.3-7.7) k/uL Lymphocytes # 1.4 (1.0-4.8) k/uL Monocytes # 0.4 (0-1.0) k/uL Eosinophils # 0.1 (0-0.7) k/uL Basophils # 0.0 (0-0.2) k/uL Macrocytosis Slight PT (9.0-12.0) sec INR (<1.2) APTT (22.0-30.0) sec Sodium (137-145) mmol/L Potassium (3.5-5.1) mmol/L Chloride (98-107) mmol/L Carbon Dioxide (22-30) mmol/L Anion Gap mmol/L BUN (9-20) mg/dL Creatinine (0.66-1.25) mg/dL Est GFR (CKD-EPI)AfAm (>60 ml/min/1.73 sqM) Est GFR (CKD-EPI)NonAf (>60 ml/min/1.73 sqM) Glucose (74-99) mg/dL Calcium (8.4-10.2) mg/dL Magnesium (1.6-2.3) mg/dL Total Bilirubin (0.2-1.3) mg/dL AST (17-59) U/L ALT (21-72) U/L Alkaline Phosphatase (38-126) U/L Total Creatine Kinase (55-170) U/L CK-MB (CK-2) (0.0-2.4) ng/mL CK-MB (CK-2) Rel Index Troponin I (0.000-0.034) ng/mL NT-Pro-B Natriuret Pep 33 pg/mL Total Protein (6.3-8.2) g/dL Albumin (3.5-5.0) g/dL Lipase 109 (23-300) U/L - Radiology Data Radiology results: report reviewed (Chest x-rays negative for acute disease), image reviewed Disposition Clinical Impression: COPD exacerbation, Chest pain, COPD (chronic obstructive pulmonary disease) with acute bronchitis Disposition: ADMITTED IP TO THIS HOSP Condition: Serious
[2017-10-10] MEDS ORDERED: MORPHINE SULFATE 4 MG/ML SYRINGE IVP STA (03:29)
[2017-10-10 03:34] LABS: Basophils % (A) 1 %; Eosinophils # (A) 0.1 k/uL (0-0.7); Eosinophils % (A) 2 %; HCT 44.2 % (39.0-53.0); HGB 14.8 gm/dL (13.0-17.5); Lymphocytes # (A) 1.4 k/uL (1.0-4.8); Lymphocytes % (A) 23 %; MCH 34.3 pg (25.0-35.0); MCHC 33.6 g/dL (31.0-37.0); MCV 102.1 fL (80.0-100.0); Macrocytosis Slight; Mean Platelet Volume 7.5; Monocytes # (A) 0.4 k/uL (0-1.0); Monocytes % (A) 7 %; Neutrophils # (A) 3.9 k/uL (1.3-7.7); Neutrophils % (A) 66 %; Platelet Count 179 k/uL (150-450); RBC 4.32 m/uL (4.30-5.90); RDW 13.7 % (11.5-15.5); WBC 5.9 k/uL (3.8-10.6)
[2017-10-10 03:48] LABS: ALT 178 U/L (21-72); AST 100 U/L (17-59); Albumin 4.1 g/dL (3.5-5.0); Alkaline Phosphatase 76 U/L (38-126); Anion Gap 13 mmol/L; Blood Urea Nitrogen 23 mg/dL (9-20); Calcium 8.7 mg/dL (8.4-10.2); Carbon Dioxide 25 mmol/L (22-30); Chloride 104 mmol/L (98-107); Glucose 129 mg/dL (74-99); Magnesium 2.2 mg/dL (1.6-2.3); Sodium 142 mmol/L (137-145); Total Bilirubin 0.3 mg/dL (0.2-1.3); Total Protein 6.4 g/dL (6.3-8.2)
[2017-10-10 04:00] LABS: Prothrombin Time 9.9 sec (9.0-12.0)
[2017-10-10 04:04] LABS: Creatine Kinase 63 U/L (55-170)
[2017-10-10 04:15] LABS: Creatine Kinase MB 1.5 ng/mL (0.0-2.4); Troponin I <0.012 ng/mL (0.000-0.034)
--- NOTE | 2017-10-10 04:19 | XR ---
EXAMINATION TYPE: XR chest 2V DATE OF EXAM: 10/10/2017 COMPARISON: 07/30/2017 HISTORY: Difficulty breathing TECHNIQUE: Frontal and lateral views of the chest are obtained. FINDINGS: There is a poor inspiration. There is some blunting of the posterior costophrenic angles. There are chest leads. There is no gross heart failure. There is some coarsening of the interstitial markings at the lung bases. IMPRESSION: There is some pleural reaction and atelectasis at the lung bases that is new compared to old exam. Poor inspiration. This appears new compared to old exam. No heart failure.
[2017-10-10 04:31] LABS: Partial Thromboplastin Time 21.5 sec (22.0-30.0)
[2017-10-10] MEDS: SODIUM CHLORIDE 0.9% 1,000 ML IV SCH (05:23)
[2017-10-10] MEDS: NICOTINE 14MG/24HR PATCH TRANSDERM SCH ×2 (05:23→05:24)
[2017-10-10] MEDS: IPRATROPIUM-ALBUTEROL 3 ML NEB INHALATION SCH ×4 (07:28→20:29)
[2017-10-10 07:42] LABS: Glucose,Whole Blood 173 mg/dL (75-99)
[2017-10-10] MEDS: INSULIN ASPART 100 UNIT/ML 1 ML 10 ML VIAL SQ SCH ×4 (07:45→22:28)
[2017-10-10] MEDS: LURASIDONE 40 MG TAB PO SCH (09:16)
[2017-10-10] MEDS: DESVENLAFAXINE SUCCINATE 50 MG TAB.ER.24H PO SCH (09:16)
[2017-10-10] MEDS: ALPRAZolam 1 MG TAB PO SCH ×3 (09:16→22:27)
[2017-10-10] MEDS: GABAPENTIN 100 MG CAP PO SCH ×3 (09:16→22:27)
[2017-10-10] MEDS: HYDROcodone/APAP 10-325MG 1 EACH TAB PO PRN ×4 (09:17→23:51)
[2017-10-10] MEDS: FAMOTIDINE 20 MG TAB PO SCH (09:17)
[2017-10-10] MEDS: amLODIPine 5 MG TAB PO SCH (09:17)
[2017-10-10] MEDS: MONTELUKAST 10 MG TAB PO SCH (09:18)
[2017-10-10] MEDS: ENOXAPARIN 40 MG/0.4 ML SYRINGE SQ SCH (09:18)
[2017-10-10 12:33] LABS: Glucose,Whole Blood 166 mg/dL (75-99)
[2017-10-10] MEDS: methylPREDNISolone SOD SUCCI 125 MG/2 ML VIAL IV SCH ×3 (14:14→23:51)
--- NOTE | 2017-10-10 15:45 | P.HPIM ---
History of Present Illness H&P Date: 10/10/17 Chief Complaint: Weakness and dyspnea Mr. Spence is a patient well-known to the practice who presented to be of the emergency room with acute exacerbation of chronic COPD. This patient was started on IV steroids and long-acting beta agonists short acting beta agonists and continued on current pain regimen will continue to follow and reevaluate daily Review of Systems Constitutional: Reports chills, Reports fever, Reports night sweats, Reports weakness Ears, nose, mouth and throat: Reports as per HPI Cardiovascular: Reports as per HPI Respiratory: Reports congestion, Reports cough, Reports dyspnea, Reports home oxygen, Reports wheezing Gastrointestinal: Reports as per HPI Genitourinary: Reports as per HPI Musculoskeletal: Reports as per HPI Integumentary: Reports as per HPI Neurological: Reports as per HPI Psychiatric: Reports as per HPI Past Medical History Past Medical History: Atrial Flutter, Asthma, Chest Pain / Angina, COPD, GERD/ Reflux, Hypertension, Osteoarthritis (OA), Pneumonia, Sleep Apnea/CPAP/BIPAP Additional Past Medical History / Comment(s): Chronic neck and back pain, shingles. History of Any Multi-Drug Resistant Organisms: None Reported Past Surgical History: Adenoidectomy, Bowel Resection, Breast Surgery, Cholecystectomy Additional Past Surgical History / Comment(s): REMOVAL OF UVULA. bowel resection for large polyps, colonoscopy with polypectomies, nasal surgery x 2, bronchoscopy with lung bx, pain clinic procedures. Past Anesthesia/Blood Transfusion Reactions: Previous Problems w/ Anesthesia Additional Past Anesthesia/Blood Transfusion Reaction / Comment(s): states "during procedure of checking something on my left lung,I turned blue and I was brought right back out anesthesia and proc was cancelled" Past Psychological History: Anxiety, Bipolar, Depression, Panic Disorder Smoking Status: Former smoker Past Alcohol Use History: Occasional Past Drug Use History: None Reported - Past Family History Mother Family Medical History: Asthma Father Family Medical History: CVA/TIA Medications and Allergies Home Medications Medication Instructions Recorded Confirmed Type Montelukast [Singulair] 10 mg PO DAILY 03/16/14 10/10/17 History amLODIPine [Norvasc] 5 mg PO QAM 07/05/14 10/10/17 History ALPRAZolam [Xanax] 1 mg PO TID 09/20/15 10/10/17 History Fluticasone/Vilanterol [Breo 1 puff INHALATION RT-DAILY 07/16/16 10/10/17 History Ellipta 100-25 Mcg Inhaler] Desvenlafaxine [Pristiq ER] 100 mg PO DAILY 09/23/16 10/10/17 History Umeclidinium [place] [Incruse 1 puff INHALATION RT-DAILY 10/08/16 10/10/17 History Ellipta] Hydrocodone/Acetaminophen [[place] 1 tab PO QID PRN 11/06/16 10/10/17 History 10-325] Albuterol Inhaler [Ventolin Hfa 2 puff INHALATION RT-QID PRN 05/28/17 10/10/17 History Inhaler] Famotidine [Pepcid] 20 mg PO DAILY 05/28/17 10/10/17 History Lurasidone HCl [Latuda] 20 mg PO DAILY 06/27/17 10/10/17 History Gabapentin [Neurontin] 100 mg PO TID #21 cap 07/07/17 10/10/17 Rx predniSONE 5 mg PO DAILY 09/14/17 10/10/17 History Allergies Allergy/AdvReac Type Severity Reaction Status Date / Time peanut Allergy alg testing Verified 10/10/17 09:02 pollen extracts Allergy Unknown Verified 10/10/17 09:02 DUST Allergy alg testing Uncoded 09/14/17 22:57 Physical Exam Osteopathic Statement: *. No significant issues noted on an osteopathic structural exam other than those noted in the History and Physical/Consult. Vitals: Vital Signs Temp Pulse Pulse Resp BP BP Pulse Ox 10/10/17 15:00 97.0 F L 79 18 145/84 97 10/10/17 10:45 91 18 10/10/17 10:34 74 16 10/10/17 07:38 77 18 10/10/17 07:28 74 18 94 L 10/10/17 07:00 96.1 F L 91 20 138/84 95 10/10/17 06:38 68 18 133/75 93 L 10/10/17 05:25 77 18 134/78 93 L 10/10/17 04:31 98.0 F 78 20 141/70 92 L 10/10/17 03:54 80 10/10/17 03:42 79 10/10/17 03:18 86 10/10/17 01:42 97.1 F L 60 22 143/71 91 L Intake and Output 10/10/17 10/10/17 10/10/17 06:59 14:59 22:59 Intake Total 0 Output Total 300 Balance -300 Intake: Oral 0 Output: Urine 300 Other: Weight General: [Patient awake, alert and oriented times 3. Patient in no acute distress.] HEENT: [PERRL. EOMI. No pharyngeal erythema or exudate.] Neck: [No adenopathy.] Cardiac: [Heart regular in rate and rhythm. No S3. No S4. No clicks, rubs. No murmur.] Lungs: Diminished breath sounds bilaterally with chronic rhonchi and expirational wheezes and poor air exchange Abdomen: [No mass. No organomegaly. Bowel sounds presnt and normoactive in all 4 quadrants.] Extremes: [No edema no cyanosis no claudication normal pulses] : [] Musculoskeletal: [No joint erythema, edema or tenderness.] Skin: [No rash.] Neurologic: [No lateralizing deficits. CN II - XII grossly intact.] Lymphatic: [No adenopathy.] Results CBC & Chem 7: 10/10/17 03:14 10/10/17 03:14 Labs: Abnormal Lab Results - Last 24 Hours (Table) 10/10/17 10/10/17 10/10/17 Range/Units 03:14 03:14 03:14 MCV 102.1 H (80.0-100.0) fL APTT 21.5 L (22.0-30.0) sec BUN 23 H (9-20) mg/dL Glucose 129 H (74-99) mg/dL POC Glucose (mg/dL) (75-99) mg/dL AST 100 H (17-59) U/L ALT 178 H (21-72) U/L 10/10/17 10/10/17 Range/Units 07:30 12:25 MCV (80.0-100.0) fL APTT (22.0-30.0) sec BUN (9-20) mg/dL Glucose (74-99) mg/dL POC Glucose (mg/dL) 173 H 166 H (75-99) mg/dL AST (17-59) U/L ALT (21-72) U/L Assessment and Plan (1) COPD (chronic obstructive pulmonary disease) with acute bronchitis Current Visit: Yes Status: Acute Code(s): J44.0 - CHRONIC OBSTRUCTIVE PULMON DISEASE W ACUTE LOWER RESP INFCT SNOMED Code(s): 320202507547726 (2) COPD exacerbation Current Visit: Yes Status: Acute Code(s): J44.1 - CHRONIC OBSTRUCTIVE PULMONARY DISEASE W (ACUTE) EXACERBATION SNOMED Code(s): 715218074809094 (3) Acute exacerbation of chronic obstructive airways disease Current Visit: No Status: Acute Code(s): J44.1 - CHRONIC OBSTRUCTIVE PULMONARY DISEASE W (ACUTE) EXACERBATION SNOMED Code(s): 703362405 Plan: Patient is currently being treated with long-acting bronchodilators and IV corticosteroids short acting bronchodilators as needed IV antibiotics we will reevaluate in the a.m. Time with Patient: Greater than 30
[2017-10-10 17:24] VITALS: BMI 35.2
[2017-10-10 17:47] LABS: Glucose,Whole Blood 199 mg/dL (75-99)
[2017-10-10] MEDS: guaiFENesin SYRUP 100MG/5ML 200 MG/10 ML CUP PO PRN ×2 (18:41→23:50)
[2017-10-10 20:56] LABS: Glucose,Whole Blood 136 mg/dL (75-99)
[2017-10-10 21:30] LABS: Hemoglobin A1C 4.9 % (4.0-6.0)
[2017-10-10] MEDS: IPRATROPIUM-ALBUTEROL 3 ML NEB INHALATION PRN (23:58)
[2017-10-11] MEDS: guaiFENesin SYRUP 100MG/5ML 200 MG/10 ML CUP PO PRN ×2 (06:14→12:32)
[2017-10-11] MEDS: HYDROcodone/APAP 10-325MG 1 EACH TAB PO PRN ×2 (06:15→12:32)
[2017-10-11] MEDS: methylPREDNISolone SOD SUCCI 125 MG/2 ML VIAL IV SCH ×4 (06:15→23:34)
[2017-10-11] MEDS: SODIUM CHLORIDE 0.9% 1,000 ML IV SCH (06:21)
[2017-10-11] MEDS: IPRATROPIUM-ALBUTEROL 3 ML NEB INHALATION SCH ×5 (06:50→20:24)
[2017-10-11 07:32] LABS: Glucose,Whole Blood 150 mg/dL (75-99)
[2017-10-11] MEDS: FAMOTIDINE 20 MG TAB PO SCH (07:53)
[2017-10-11] MEDS: amLODIPine 5 MG TAB PO SCH (07:53)
[2017-10-11] MEDS: GABAPENTIN 100 MG CAP PO SCH ×3 (07:53→21:40)
[2017-10-11] MEDS: ENOXAPARIN 40 MG/0.4 ML SYRINGE SQ SCH (07:53)
[2017-10-11] MEDS: INSULIN ASPART 100 UNIT/ML 1 ML 10 ML VIAL SQ SCH ×4 (07:53→21:40)
[2017-10-11] MEDS: DESVENLAFAXINE SUCCINATE 50 MG TAB.ER.24H PO SCH (07:53)
[2017-10-11] MEDS: LURASIDONE 40 MG TAB PO SCH (07:54)
[2017-10-11] MEDS: MONTELUKAST 10 MG TAB PO SCH (07:54)
[2017-10-11 11:48] LABS: Glucose,Whole Blood 152 mg/dL (75-99)
[2017-10-11] MEDS: LEVOFLOXACIN 750 MG TAB PO SCH (12:15)
[2017-10-11] MEDS: ALPRAZolam 1 MG TAB PO SCH ×3 (12:21→21:39)
--- NOTE | 2017-10-11 13:35 | P.PN ---
Subjective Progress Note Date: 10/11/17 10/10/2017-Note per Dr. Lawson Mr. Spence is a patient well-known to the practice who presented to be of the emergency room with acute exacerbation of chronic COPD. This patient was started on IV steroids and long-acting beta agonists short acting beta agonists and continued on current pain regimen will continue to follow and reevaluate daily 10/11/2017 Patient seen and examined at the bedside. Patient was admitted for COPD exacerbation. Patient remains on Solu-medrol 60mg IV q 6 hours. Also receiving Duoneb QID scheduled. Chest xray on admission does show alelectasis at the lung bases and poor inspiration. No heart failure. Patient sees Dr. Trammell for chronic pain management and is prescribed Posey outpatient. Patient is requesting consult for Dr. Trammell. Patient remains on novolog sliding scale. Blood sugars are ranging from 136-199. Objective - Vital Signs Vital signs: Vital Signs Temp 97.0 F L 10/11/17 06:38 Pulse 93 10/11/17 07:00 Resp 16 10/11/17 06:38 BP 168/85 10/11/17 06:38 Pulse Ox 95 10/11/17 06:38 Intake & Output 10/10/17 10/11/17 10/11/17 18:59 06:59 18:59 Intake Total 240 300 Output Total 900 450 Balance -660 -150 Weight 111.13 kg Intake: Oral 240 300 Output: Urine 900 450 Other: Voiding Method Urinal Urinal # Voids 2 - Exam GENERAL: This is a 61-year-old male in no apparent distress at the time of examination. Pleasant and cooperative. HEENT: Head is atraumatic, normocephalic. Pupils are equal, round, and reactive to light. Sclerae anicteric. Conjunctivae are clear. Mucus membranes of the mouth are moist. Neck is supple. RESPIRATORY: Decreased air exchange. Lungs with rhonchi and expiratory wheezing noted. Frequent coughing noted. No use of accessory muscles. Patient maintaining oxygen saturation greater than 92%. No chest wall tenderness is noted on palpation or with deep breathing. CARDIOVASCULAR: Regular rate and rhythm. S1 and S2 noted. No systolic or diastolic murmur auscultated. No JVD noted. No S3 or S4 noted. GASTROINTESTINAL: No distention noted. Abdomen soft and round. Normal active bowel sounds auscultated x 4 quadrants. No pain or tenderness noted upon palpation. INTEGUMENTARY: No cyanosis. No jaundice. No rashes noted. No cellulitis noted. EXTREMITIES: 2+ peripheral pulses. No evidence of peripheral edema. No calf tenderness noted. NEUROLOGIC: Cranial nerves II-XII intact. PSYCHIATRIC: Awake, alert, and oriented X 3. Appropriate affect. Intact judgement and insight. - Labs CBC & Chem 7: 10/10/17 03:14 10/10/17 03:14 Labs: Abnormal Lab Results - Last 24 Hours (Table) 10/10/17 10/10/17 10/10/17 Range/Units 12:25 17:14 20:52 POC Glucose (mg/dL) 166 H 199 H 136 H (75-99) mg/dL 10/11/17 Range/Units 07:16 POC Glucose (mg/dL) 150 H (75-99) mg/dL Assessment and Plan Plan: ASSESSMENT: Acute exacerbation of chronic obstructive pulmonary disease History of obstructive sleep apnea, patient states he does not wear his CPAP at home because it is very old Essential hypertension Chronic back and neck pain, sees Dr. Trammell outpatient for pain management Anxiety, unspecified Depression, unspecified Bipolar disorder Obesity: BMI 35.2 PLAN: Continue IV steroids and DuoNeb treatments Begin Levaquin 750mg daily Will consult Dr. Granados, who the patient sees on an outpatient basis Patient needs to see his insole lip turner after he is discharged in regards to his CPAP machine and need for repeat sleep study continue NovoLog sliding scale May discontinue telemetry monitoring Defer consult to Dr. Trammell for pain management at this time Will change pain meds to Percocet 10mg Q 6 hours PRN. DC Posey Add tussinex q 12 hours Home meds as appropriate Monitor labs GI prophylaxis: Pepcid 20 mg by mouth daily DVT prophylaxis: Lovenox 40 mg subcu daily Monitor vital signs and address as appropriate Discharge planning: Patient to return home when stable Further recommendations pending patient's course Nurse practitioner note has been reviewed by physician. Signing provider agrees with the documented findings, assessment, and plan of care.
[2017-10-11] MEDS: CHLORPHEN-HYDROcod 8-10mg/5ml 5 ML ORAL.SYRG PO SCH ×2 (14:51→23:35)
--- NOTE | 2017-10-11 16:14 | P.CNPUL ---
History of Present Illness Consult date: 10/11/17 Reason for consult: dyspnea, COPD Chief complaint: Cough, shortness of breath History of present illness: This is a 61-year-old male who presented emergency department complaining of shortness of breath. The patient states that he slipped out of bed and that his breathing has been bad for the last 2-3 days. He did have chills at home. He is coughing up yellow-green phlegm. He states he has not smoked cigarettes in high school however he has been told he has COPD and asthma. He uses Ventolin, Incruse, Breo. He also uses his nebulizer 2-3 times a day. He states he uses albuterol, ipratropium, budesonide. He also takes Singulair in the morning. He is complaining of wheezing. He does not wear oxygen at home. He does have obstructive sleep apnea but states the CPAP broke and he was told he needs a overnight sleep study before getting a new one. He denies any sick contacts. He states he is up-to-date on his influenza and pneumonia vaccinations. Review of Systems All systems: negative Past Medical History Past Medical History: Atrial Flutter, Asthma, Chest Pain / Angina, COPD, GERD/ Reflux, Hypertension, Osteoarthritis (OA), Pneumonia, Sleep Apnea/CPAP/BIPAP Additional Past Medical History / Comment(s): Chronic neck and back pain, shingles. History of Any Multi-Drug Resistant Organisms: None Reported Past Surgical History: Adenoidectomy, Bowel Resection, Breast Surgery, Cholecystectomy Additional Past Surgical History / Comment(s): REMOVAL OF UVULA. bowel resection for large polyps, colonoscopy with polypectomies, nasal surgery x 2, bronchoscopy with lung bx, pain clinic procedures. Past Anesthesia/Blood Transfusion Reactions: Previous Problems w/ Anesthesia Additional Past Anesthesia/Blood Transfusion Reaction / Comment(s): states "during procedure of checking something on my left lung,I turned blue and I was brought right back out anesthesia and proc was cancelled" Past Psychological History: Anxiety, Bipolar, Depression, Panic Disorder Smoking Status: Former smoker Past Alcohol Use History: Occasional Past Drug Use History: None Reported - Past Family History Mother Family Medical History: Asthma Father Family Medical History: CVA/TIA Medications and Allergies Home Medications Medication Instructions Recorded Confirmed Type Montelukast [Singulair] 10 mg PO DAILY 03/16/14 10/10/17 History amLODIPine [Norvasc] 5 mg PO QAM 07/05/14 10/10/17 History ALPRAZolam [Xanax] 1 mg PO TID 09/20/15 10/10/17 History Fluticasone/Vilanterol [Breo 1 puff INHALATION RT-DAILY 07/16/16 10/10/17 History Ellipta 100-25 Mcg Inhaler] Desvenlafaxine [Pristiq ER] 100 mg PO DAILY 09/23/16 10/10/17 History Umeclidinium [place] [Incruse 1 puff INHALATION RT-DAILY 10/08/16 10/10/17 History Ellipta] Hydrocodone/Acetaminophen [[place] 1 tab PO QID PRN 11/06/16 10/10/17 History 10-325] Albuterol Inhaler [Ventolin Hfa 2 puff INHALATION RT-QID PRN 05/28/17 10/10/17 History Inhaler] Famotidine [Pepcid] 20 mg PO DAILY 05/28/17 10/10/17 History Lurasidone HCl [Latuda] 20 mg PO DAILY 06/27/17 10/10/17 History Gabapentin [Neurontin] 100 mg PO TID #21 cap 07/07/17 10/10/17 Rx predniSONE 5 mg PO DAILY 09/14/17 10/10/17 History Allergies Allergy/AdvReac Type Severity Reaction Status Date / Time peanut Allergy alg testing Verified 10/10/17 09:02 pollen extracts Allergy Unknown Verified 10/10/17 09:02 DUST Allergy alg testing Uncoded 09/14/17 22:57 Physical Exam Osteopathic Statement: *. No significant issues noted on an osteopathic structural exam other than those noted in the History and Physical/Consult. Vitals: Vital Signs Temp Pulse Pulse Resp BP Pulse Ox 10/11/17 15:39 88 10/11/17 15:24 84 10/11/17 14:58 97.4 F L 81 20 148/74 96 10/11/17 11:55 90 10/11/17 11:44 88 10/11/17 07:00 93 10/11/17 06:50 92 10/11/17 06:38 97.0 F L 84 16 168/85 95 10/11/17 00:10 95 10/11/17 00:00 86 16 10/10/17 23:59 95 10/10/17 23:00 97.0 F L 86 16 162/81 92 L 10/10/17 16:21 80 Intake and Output 10/11/17 10/11/17 10/11/17 06:59 14:59 22:59 Intake Total 480 Output Total 450 200 Balance -450 280 Intake: Oral 480 Output: Urine 450 200 Other: Voiding Method Urinal # Voids 2 1 1 Gen.: Patient is alert and oriented 3, no acute distress, morbidly obese Cardiovascular: Regular rate and rhythm, S1/S2 Lungs: Bilateral expiratory wheezing Abdomen: Soft nontender nondistended positive bowel sounds Extremities: No edema Results - Laboratory Findings CBC and BMP: 10/10/17 03:14 10/10/17 03:14 PT/INR, D-dimer PT 9.9 sec (9.0-12.0) 10/10/17 03:14 INR 1.0 (<1.2) 10/10/17 03:14 Abnormal lab findings: Abnormal Labs 10/10/17 10/10/17 10/10/17 03:14 03:14 03:14 MCV 102.1 H APTT 21.5 L BUN 23 H Glucose 129 H POC Glucose (mg/dL) AST 100 H ALT 178 H 10/10/17 10/10/17 10/10/17 07:30 12:25 17:14 MCV APTT BUN Glucose POC Glucose (mg/dL) 173 H 166 H 199 H AST ALT 10/10/17 10/11/17 10/11/17 20:52 07:16 11:25 MCV APTT BUN Glucose POC Glucose (mg/dL) 136 H 150 H 152 H AST ALT - Diagnostic Findings Chest x-ray: report reviewed, image reviewed Assessment and Plan Assessment: Acute on chronic hypoxic respiratory failure Acute exacerbation of COPD and asthma Bibasilar atelectasis, doubt pneumonia Obstructive sleep apnea, noncompliant with CPAP Hypertension Chronic pain Anxiety Depression Bipolar disorder Obesity Hyperglycemia likely secondary to steroids O2 to maintain saturation greater than equal to 80% Bronchodilators Pulmicort and Perforomist Smoking cessation Patient encouraged to follow-up for his CPAP Singulair Mucinex Steroid taper Incentive spirometry and pulmonary hygiene Flutter therapy Patient's home medications Outpatient PSG and PFT Sputum culture GI and DVT prophylaxis Patient seen and examined covering for Dr. Granados
[2017-10-11 17:23] LABS: Glucose,Whole Blood 110 mg/dL (75-99)
[2017-10-11] MEDS: oxyCODONE-APAP 10-325MG 1 EACH TAB PO PRN (19:01)
[2017-10-11] MEDS: BUDESONIDE 0.5 MG/2 ML NEBU INHALATION SCH (20:24)
[2017-10-11] MEDS: FORMOTEROL FUMARATE 20 MCG/2 ML NEBU INHALATION SCH (20:30)
[2017-10-11 21:07] LABS: Glucose,Whole Blood 159 mg/dL (75-99)
[2017-10-11] MEDS: guaiFENesin 600 MG TABLET.ER PO SCH (21:39)
[2017-10-12] MEDS: oxyCODONE-APAP 10-325MG 1 EACH TAB PO PRN ×4 (00:21→20:18)
[2017-10-12] MEDS: SODIUM CHLORIDE 0.9% 1,000 ML IV SCH (06:33)
[2017-10-12] MEDS: methylPREDNISolone SOD SUCCI 125 MG/2 ML VIAL IV SCH ×4 (06:34→23:36)
[2017-10-12 07:11] LABS: Glucose,Whole Blood 130 mg/dL (75-99)
[2017-10-12] MEDS: BUDESONIDE 0.5 MG/2 ML NEBU INHALATION SCH ×2 (07:29→19:02)
[2017-10-12] MEDS: FORMOTEROL FUMARATE 20 MCG/2 ML NEBU INHALATION SCH ×2 (07:29→19:02)
[2017-10-12] MEDS: IPRATROPIUM-ALBUTEROL 3 ML NEB INHALATION SCH ×4 (07:29→19:02)
[2017-10-12] MEDS: INSULIN ASPART 100 UNIT/ML 1 ML 10 ML VIAL SQ SCH ×4 (07:36→21:20)
[2017-10-12] MEDS: ENOXAPARIN 40 MG/0.4 ML SYRINGE SQ SCH (08:29)
[2017-10-12] MEDS: GABAPENTIN 100 MG CAP PO SCH ×3 (08:29→21:17)
[2017-10-12] MEDS: amLODIPine 5 MG TAB PO SCH (08:30)
[2017-10-12] MEDS: MONTELUKAST 10 MG TAB PO SCH (08:30)
[2017-10-12] MEDS: DESVENLAFAXINE SUCCINATE 50 MG TAB.ER.24H PO SCH (08:30)
[2017-10-12] MEDS: FAMOTIDINE 20 MG TAB PO SCH (08:30)
[2017-10-12] MEDS: ALPRAZolam 1 MG TAB PO SCH ×3 (08:30→21:20)
[2017-10-12] MEDS: guaiFENesin 600 MG TABLET.ER PO SCH ×2 (08:30→21:17)
[2017-10-12] MEDS: LURASIDONE 40 MG TAB PO SCH (08:30)
--- NOTE | 2017-10-12 11:37 | PN ---
PROGRESS NOTE Milo Stack was seen again on 10/12/2017. He continues to have shortness of breath and complains of pain in the retrosternal area when he coughs. PHYSICAL EXAMINATION: On physical examination, his respiratory rate is 18, pulse rate of 69, temperature 96.8, blood pressure 150/94, O2 saturation on room air is 92%. HEENT reveals pupils are equal. Chest reveals prolonged expiration with expiratory wheeze. Cardiovascular system reveals an S1, S2. Abdomen is soft. There is no edema. Labs were reviewed. IMPRESSION AT THIS TIME: 1. Asthma with acute exacerbation. 2. Chronic obstructive pulmonary disease. 3. Chest pain, which noncardiac is likely. 4. Hypertension. 5. Anxiety. Continue Pulmicort, Perforomist, albuterol with ipratropium, IV steroids, GI and DVT prophylaxis. Continue montelukast. Keep his pain under control. Depending on how he does, we shall make further changes to his care. His prognosis at this time is fair. MMODL / IJN: [id number] /
[2017-10-12 12:13] LABS: Glucose,Whole Blood 118 mg/dL (75-99)
[2017-10-12] MEDS: CHLORPHEN-HYDROcod 8-10mg/5ml 5 ML ORAL.SYRG PO SCH ×2 (12:58→23:36)
[2017-10-12] MEDS: LEVOFLOXACIN 750 MG TAB PO SCH (12:58)
--- NOTE | 2017-10-12 14:17 | P.PN ---
Subjective Progress Note Date: 10/12/17 10/10/2017-Note per Dr. Lawson Mr. Spence is a patient well-known to the practice who presented to be of the emergency room with acute exacerbation of chronic COPD. This patient was started on IV steroids and long-acting beta agonists short acting beta agonists and continued on current pain regimen will continue to follow and reevaluate daily 10/11/2017 Patient seen and examined at the bedside. Patient was admitted for COPD exacerbation. Patient remains on Solu-medrol 60mg IV q 6 hours. Also receiving Duoneb QID scheduled. Chest xray on admission does show alelectasis at the lung bases and poor inspiration. No heart failure. Patient sees Dr. Trammell for chronic pain management and is prescribed [place] outpatient. Patient is requesting consult for Dr. Trammell. Patient remains on novolog sliding scale. Blood sugars are ranging from 136-199. 10/12/2017 Patient seen and examined at the bedside. Patient remains on IV steroids: 60 mg every 6 hours. Blood sugars are ranging from 110-152. Patient was evaluated by packing house laborer yesterday. Patient is currently on Pulmicort and Perforomist. Patient has chronic back and neck pain. Patient's pain medications were switched to Percocet 10-325 mg every 6 hours during hospitalization. At the time of discharge, patient will resume his [place]. He follows with Dr. Trammell on an outpatient basis for pain management. Objective - Vital Signs Vital signs: Vital Signs Temp 96.8 F L 10/12/17 07:00 Pulse 90 10/12/17 11:45 Resp 18 10/12/17 07:00 BP 150/94 10/12/17 07:00 Pulse Ox 92 L 10/12/17 07:00 Intake & Output 10/11/17 10/12/17 10/12/17 18:59 06:59 18:59 Intake Total 480 Output Total 200 Balance 280 Intake: Oral 480 Output: Urine 200 Other: # Voids 1 1 - Exam GENERAL: This is a 61-year-old male in no apparent distress at the time of examination. Pleasant and cooperative. HEENT: Head is atraumatic, normocephalic. Pupils are equal, round, and reactive to light. Sclerae anicteric. Conjunctivae are clear. Mucus membranes of the mouth are moist. Neck is supple. RESPIRATORY: Decreased air exchange. Lungs diminished with expiratory wheezing noted. No use of accessory muscles. Patient maintaining oxygen saturation greater than 92%. No chest wall tenderness is noted on palpation or with deep breathing. CARDIOVASCULAR: Regular rate and rhythm. S1 and S2 noted. No systolic or diastolic murmur auscultated. No JVD noted. No S3 or S4 noted. GASTROINTESTINAL: No distention noted. Abdomen soft and round. Normal active bowel sounds auscultated x 4 quadrants. No pain or tenderness noted upon palpation. INTEGUMENTARY: No cyanosis. No jaundice. No rashes noted. No cellulitis noted. EXTREMITIES: 2+ peripheral pulses. No evidence of peripheral edema. No calf tenderness noted. NEUROLOGIC: Cranial nerves II-XII intact. PSYCHIATRIC: Awake, alert, and oriented X 3. Appropriate affect. Intact judgement and insight. - Labs CBC & Chem 7: 10/10/17 03:14 10/10/17 03:14 Labs: Abnormal Lab Results - Last 24 Hours (Table) 10/11/17 10/11/17 10/12/17 Range/Units 17:18 21:06 07:09 POC Glucose (mg/dL) 110 H 159 H 130 H (75-99) mg/dL Assessment and Plan Plan: ASSESSMENT: Acute exacerbation of chronic obstructive pulmonary disease History of obstructive sleep apnea, patient states he does not wear his CPAP at home because it is "very old" Essential hypertension Chronic back and neck pain, sees Dr. Trammell outpatient for pain management Anxiety, unspecified Depression, unspecified Bipolar disorder Obesity: BMI 35.2 PLAN: Pulmonary on consult. Appreciate recommendations and input Continue IV steroids. Wean per pulmonary Continue Levaquin 750mg daily Patient needs to see his packing house laborer after he is discharged in regards to his CPAP machine and need for repeat sleep study continue NovoLog sliding scale Defer consult to Dr. Trammell for pain management at this time Continue Percocet during hospitalization. Patient will resume his [place] at the time of discharge Home meds as appropriate Monitor labs GI prophylaxis: Pepcid 20 mg by mouth daily DVT prophylaxis: Lovenox 40 mg subcu daily Monitor vital signs and address as appropriate Discharge planning: Patient to return home when stable Further recommendations pending patient's course Nurse practitioner note has been reviewed by physician. Signing provider agrees with the documented findings, assessment, and plan of care.
[2017-10-12 17:49] LABS: Glucose,Whole Blood 108 mg/dL (75-99)
[2017-10-12 20:55] LABS: Glucose,Whole Blood 145 mg/dL (75-99)
[2017-10-13] MEDS: oxyCODONE-APAP 10-325MG 1 EACH TAB PO PRN ×2 (02:17→08:38)
[2017-10-13] MEDS: SODIUM CHLORIDE 0.9% 1,000 ML IV SCH (05:42)
[2017-10-13] MEDS: methylPREDNISolone SOD SUCCI 125 MG/2 ML VIAL IV SCH (07:22)
[2017-10-13 07:29] LABS: Glucose,Whole Blood 123 mg/dL (75-99)
[2017-10-13] MEDS: INSULIN ASPART 100 UNIT/ML 1 ML 10 ML VIAL SQ SCH ×4 (07:32→21:59)
[2017-10-13] MEDS: BUDESONIDE 0.5 MG/2 ML NEBU INHALATION SCH ×2 (07:47→20:21)
[2017-10-13] MEDS: FORMOTEROL FUMARATE 20 MCG/2 ML NEBU INHALATION SCH ×2 (07:47→20:21)
[2017-10-13] MEDS: IPRATROPIUM-ALBUTEROL 3 ML NEB INHALATION SCH ×4 (07:47→20:21)
[2017-10-13] MEDS: guaiFENesin 600 MG TABLET.ER PO SCH ×2 (08:35→21:58)
[2017-10-13] MEDS: LEVOFLOXACIN 750 MG TAB PO SCH (08:35)
[2017-10-13] MEDS: GABAPENTIN 100 MG CAP PO SCH ×3 (08:35→21:58)
[2017-10-13] MEDS: amLODIPine 5 MG TAB PO SCH (08:35)
[2017-10-13] MEDS: MONTELUKAST 10 MG TAB PO SCH (08:35)
[2017-10-13] MEDS: DESVENLAFAXINE SUCCINATE 50 MG TAB.ER.24H PO SCH (08:35)
[2017-10-13] MEDS: FAMOTIDINE 20 MG TAB PO SCH (08:35)
[2017-10-13] MEDS: ENOXAPARIN 40 MG/0.4 ML SYRINGE SQ SCH (08:36)
[2017-10-13] MEDS: LURASIDONE 40 MG TAB PO SCH (08:36)
[2017-10-13] MEDS: ALPRAZolam 1 MG TAB PO SCH ×3 (08:36→21:58)
[2017-10-13] MEDS ORDERED: KETOROLAC 30 MG/ML 1 ML VIAL IVP PRN (10:22)
--- NOTE | 2017-10-13 10:33 | P.PN ---
Subjective Progress Note Date: 10/13/17 10/10/2017-Note per Dr. Lawson Mr. Spence is a patient well-known to the practice who presented to be of the emergency room with acute exacerbation of chronic COPD. This patient was started on IV steroids and long-acting beta agonists short acting beta agonists and continued on current pain regimen will continue to follow and reevaluate daily 10/11/2017 Patient seen and examined at the bedside. Patient was admitted for COPD exacerbation. Patient remains on Solu-medrol 60mg IV q 6 hours. Also receiving Duoneb QID scheduled. Chest xray on admission does show alelectasis at the lung bases and poor inspiration. No heart failure. Patient sees Dr. Trammell for chronic pain management and is prescribed [place] outpatient. Patient is requesting consult for Dr. Trammell. Patient remains on novolog sliding scale. Blood sugars are ranging from 136-199. 10/12/2017 Patient seen and examined at the bedside. Patient remains on IV steroids: 60 mg every 6 hours. Blood sugars are ranging from 110-152. Patient was evaluated by crane assembler yesterday. Patient is currently on Pulmicort and Perforomist. Patient has chronic back and neck pain. Patient's pain medications were switched to Percocet 10-325 mg every 6 hours during hospitalization. At the time of discharge, patient will resume his [place]. He follows with Dr. Trammell on an outpatient basis for pain management. 10/13/2017 Patient seen and examined at the bedside. Patient states his breathing was improving but he recently walked to the bathroom and he states he has been short of breath since that time. Patient remains on 2 L nasal cannula with oxygen saturations greater than 92%. Patient remains on IV Solu-Medrol: 60 mg every 6 hours. Blood sugars are ranging from 108-145. Patient was switched to Percocet for pain and states it is not helping. Patient requesting to be switched back to his [place]. Patient also requesting IV Dilaudid for chronic back pain. Objective - Vital Signs Vital signs: Vital Signs Temp 96.6 F L 10/13/17 06:02 Pulse 80 10/13/17 08:05 Resp 18 10/13/17 06:02 BP 156/87 10/13/17 06:02 Pulse Ox 94 L 10/13/17 06:02 Intake & Output 10/12/17 10/13/17 10/13/17 18:59 06:59 18:59 Intake Total 160 600 Balance 160 600 Intake: Intake, IV Titration 160 Amount Sodium Chloride 0.9% 1, 160 000 ml @ 20 mls/hr IV . Q24H [facility] Rx#:[id number] Oral 600 Other: Voiding Method Urinal # Voids 1 - Exam GENERAL: This is a 61-year-old male in no apparent distress at the time of examination. Pleasant and cooperative. HEENT: Head is atraumatic, normocephalic. Pupils are equal, round, and reactive to light. Sclerae anicteric. Conjunctivae are clear. Mucus membranes of the mouth are moist. Neck is supple. RESPIRATORY: Decreased air exchange. Lungs diminished with expiratory wheezing noted. No use of accessory muscles. Patient maintaining oxygen saturation greater than 92%. No chest wall tenderness is noted on palpation or with deep breathing. CARDIOVASCULAR: Regular rate and rhythm. S1 and S2 noted. No systolic or diastolic murmur auscultated. No JVD noted. No S3 or S4 noted. GASTROINTESTINAL: No distention noted. Abdomen soft and round. Normal active bowel sounds auscultated x 4 quadrants. No pain or tenderness noted upon palpation. INTEGUMENTARY: No cyanosis. No jaundice. No rashes noted. No cellulitis noted. EXTREMITIES: 2+ peripheral pulses. No evidence of peripheral edema. No calf tenderness noted. NEUROLOGIC: Cranial nerves II-XII intact. PSYCHIATRIC: Awake, alert, and oriented X 3. Appropriate affect. Intact judgement and insight. - Labs CBC & Chem 7: 10/10/17 03:14 10/10/17 03:14 Labs: Abnormal Lab Results - Last 24 Hours (Table) 10/12/17 10/12/17 10/12/17 Range/Units 12:11 17:30 20:47 POC Glucose (mg/dL) 118 H 108 H 145 H (75-99) mg/dL 10/13/17 Range/Units 07:25 POC Glucose (mg/dL) 123 H (75-99) mg/dL Assessment and Plan Plan: ASSESSMENT: Acute exacerbation of chronic obstructive pulmonary disease History of obstructive sleep apnea, patient states he does not wear his CPAP at home because it is "very old" Essential hypertension Chronic back and neck pain, sees Dr. Trammell outpatient for pain management Anxiety, unspecified Depression, unspecified Bipolar disorder Obesity: BMI 35.2 PLAN: Pulmonary on consult. Appreciate recommendations and input Continue IV steroids. Wean per pulmonary Continue Levaquin 750mg daily Patient needs to see his crane assembler after he is discharged in regards to his CPAP machine and need for repeat sleep study continue NovoLog sliding scale Patient states Percocet is not helping his back pain. Requesting to resume his [place]. Will resume patient's home dose of [place] 10 mg every 6 hours Patient requesting IV Dilaudid. Patient informed of hospitalized shortage of medication. Will begin Toradol 15 mg IV every 6 hours when necessary for pain 6 doses. Home meds as appropriate Monitor labs GI prophylaxis: Pepcid 20 mg by mouth daily DVT prophylaxis: Lovenox 40 mg subcu daily Monitor vital signs and address as appropriate Discharge planning: Patient to return home when stable Further recommendations pending patient's course Nurse practitioner note has been reviewed by physician. Signing provider agrees with the documented findings, assessment, and plan of care.
[2017-10-13 12:28] LABS: Glucose,Whole Blood 142 mg/dL (75-99)
[2017-10-13] MEDS: CHLORPHEN-HYDROcod 8-10mg/5ml 5 ML ORAL.SYRG PO SCH ×2 (12:49→23:26)
[2017-10-13] MEDS: HYDROcodone/APAP 10-325MG 1 EACH TAB PO PRN ×2 (13:58→20:00)
--- NOTE | 2017-10-13 14:52 | P.PN ---
Subjective Progress Note Date: 10/13/17 10/11/17- This is a 61-year-old male who presented emergency department complaining of shortness of breath. The patient states that he slipped out of bed and that his breathing has been bad for the last 2-3 days. He did have chills at home. He is coughing up yellow-green phlegm. He states he has not smoked cigarettes in high school however he has been told he has COPD and asthma. He uses Ventolin, Incruse, Breo. He also uses his nebulizer 2-3 times a day. He states he uses albuterol, ipratropium, budesonide. He also takes Singulair in the morning. He is complaining of wheezing. He does not wear oxygen at home. He does have obstructive sleep apnea but states the CPAP broke and he was told he needs a overnight sleep study before getting a new one. He denies any sick contacts. He states he is up-to-date on his influenza and pneumonia vaccinations. 10/12/17- Please see Dr. William Cali notes 10/13/17- patient and seen and examined and evaluated today On rounds. The patient is resting up in bed on 2 L of supplemental oxygen via nasal cannula. He feels his breathing is somewhat better today. He complains of generalized chronic pain syndrome, currently has medications for pain management on board. Patient states he has had some weakness and difficulty getting out of the bed. We will consult physical and occupational therapy. Objective - Vital Signs Vital signs: Vital Signs Temp 96.6 F L 10/13/17 06:02 Pulse 78 10/13/17 11:48 Resp 18 10/13/17 06:02 BP 156/87 10/13/17 06:02 Pulse Ox 94 L 10/13/17 06:02 Intake & Output 10/12/17 10/13/17 10/13/17 18:59 06:59 18:59 Intake Total 160 600 Balance 160 600 Intake: Intake, IV Titration 160 Amount Sodium Chloride 0.9% 1, 160 000 ml @ 20 mls/hr IV . Q24H [facility] Rx#:[id number] Oral 600 Other: Voiding Method Urinal # Voids 1 - Exam Gen.: Patient is alert and oriented 3, no acute distress, morbidly obese Cardiovascular: Regular rate and rhythm, S1/S2 Lungs: Bilateral expiratory wheezing, improving. Bases diminished Abdomen: Soft nontender nondistended positive bowel sounds Extremities: No edema - Labs CBC & Chem 7: 10/10/17 03:14 10/10/17 03:14 Labs: Abnormal Lab Results - Last 24 Hours (Table) 10/12/17 10/12/17 10/13/17 Range/Units 17:30 20:47 07:25 POC Glucose (mg/dL) 108 H 145 H 123 H (75-99) mg/dL 10/13/17 Range/Units 12:24 POC Glucose (mg/dL) 142 H (75-99) mg/dL Assessment and Plan Assessment: Assessment Acute on chronic hypoxic respiratory failure Acute exacerbation of COPD and asthma Bibasilar atelectasis, doubt pneumonia Obstructive sleep apnea, noncompliant with CPAP Hypertension Chronic pain Anxiety Depression Bipolar disorder Obesity Hyperglycemia likely secondary to steroids Plan Consult PT OT O2 to maintain saturation greater than equal to 80% Bronchodilators Pulmicort and Perforomist Smoking cessation Patient encouraged to follow-up for his CPAP Singulair Mucinex Steroid taper Incentive spirometry and pulmonary hygiene Flutter therapy Patient's home medications Outpatient PSG and PFT Sputum culture GI and DVT prophylaxis Patient seen and examined covering for Dr. Granados I performed an examination of the patient and discussed their management with the nurse practitioner. I have reviewed the nurse practitioner's note and agree with the documented findings and plan of care.
[2017-10-13] MEDS: methylPREDNISolone SOD SUCCI 40 MG/ML 1 ML VIAL IV SCH ×2 (17:10→23:21)
[2017-10-13 17:16] LABS: Glucose,Whole Blood 92 mg/dL (75-99)
[2017-10-13 20:49] LABS: Glucose,Whole Blood 131 mg/dL (75-99)
[2017-10-13 23:29] VITALS: RESP 18
[2017-10-14] MEDS: IPRATROPIUM-ALBUTEROL 3 ML NEB INHALATION PRN (01:05)
[2017-10-14] MEDS: HYDROcodone/APAP 10-325MG 1 EACH TAB PO PRN ×2 (02:15→08:18)
[2017-10-14] MEDS: SODIUM CHLORIDE 0.9% 1,000 ML IV SCH (04:08)
[2017-10-14 06:21] VITALS: BP 157/91; TEMP 97.1
[2017-10-14] MEDS: FORMOTEROL FUMARATE 20 MCG/2 ML NEBU INHALATION SCH (06:57)
[2017-10-14] MEDS: IPRATROPIUM-ALBUTEROL 3 ML NEB INHALATION SCH (06:57)
[2017-10-14] MEDS: BUDESONIDE 0.5 MG/2 ML NEBU INHALATION SCH (06:57)
[2017-10-14 07:22] VITALS: PULSE 76
[2017-10-14 08:00] LABS: Glucose,Whole Blood 96 mg/dL (75-99)
[2017-10-14] MEDS: GABAPENTIN 100 MG CAP PO SCH (08:17)
[2017-10-14] MEDS: ENOXAPARIN 40 MG/0.4 ML SYRINGE SQ SCH (08:17)
[2017-10-14] MEDS: methylPREDNISolone SOD SUCCI 40 MG/ML 1 ML VIAL IV SCH (08:17)
[2017-10-14] MEDS: INSULIN ASPART 100 UNIT/ML 1 ML 10 ML VIAL SQ SCH (08:17)
[2017-10-14] MEDS: DESVENLAFAXINE SUCCINATE 50 MG TAB.ER.24H PO SCH (08:18)
[2017-10-14] MEDS: ALPRAZolam 1 MG TAB PO SCH (08:18)
[2017-10-14] MEDS: LURASIDONE 40 MG TAB PO SCH (08:18)
[2017-10-14] MEDS: guaiFENesin 600 MG TABLET.ER PO SCH (08:18)
[2017-10-14] MEDS: LEVOFLOXACIN 750 MG TAB PO SCH (08:19)
[2017-10-14] MEDS: FAMOTIDINE 20 MG TAB PO SCH (08:19)
[2017-10-14] MEDS: amLODIPine 5 MG TAB PO SCH (08:19)
[2017-10-14] MEDS: MONTELUKAST 10 MG TAB PO SCH (08:19)
[2017-10-14 08:41] LABS: Basophils % (A) 0 %; Eosinophils % (A) 0 %; HCT 46.4 % (39.0-53.0); HGB 15.1 gm/dL (13.0-17.5); Lymphocytes # (A) 0.7 k/uL (1.0-4.8); Lymphocytes % (A) 12 %; MCH 34.1 pg (25.0-35.0); MCHC 32.6 g/dL (31.0-37.0); MCV 104.7 fL (80.0-100.0); Macrocytosis Slight; Mean Platelet Volume 7.3; Monocytes # (A) 0.5 k/uL (0-1.0); Monocytes % (A) 8 %; Neutrophils # (A) 5.1 k/uL (1.3-7.7); Neutrophils % (A) 80 %; Platelet Count 122 k/uL (150-450); RBC 4.43 m/uL (4.30-5.90); RDW 13.6 % (11.5-15.5); WBC 6.4 k/uL (3.8-10.6)
[2017-10-14 09:16] LABS: ALT 154 U/L (21-72); AST 78 U/L (17-59); Albumin 3.6 g/dL (3.5-5.0); Alkaline Phosphatase 59 U/L (38-126); Anion Gap 10 mmol/L; Blood Urea Nitrogen 31 mg/dL (9-20); Calcium 8.8 mg/dL (8.4-10.2); Carbon Dioxide 32 mmol/L (22-30); Chloride 100 mmol/L (98-107); Glucose 96 mg/dL (74-99); Potassium 4.1 mmol/L (3.5-5.1); Sodium 142 mmol/L (137-145); Total Bilirubin 0.5 mg/dL (0.2-1.3); Total Protein 5.8 g/dL (6.3-8.2)
--- NOTE | 2017-10-14 09:40 | P.DS ---
Providers Date of admission: 10/10/17 03:58 Expected date of discharge: 10/14/17 Attending physician: Genaro Lawson Consults: 10/11/17 13:26 Consult Physician Routine Consulting Provider: Nehemiah Granados Consult Reason/Comments: copd exacerbation Do you want consulting provider notified?: Yes Primary care physician: [facility] Course: 61-year-old male who presented to the emergency room with a chief complaint of shortness of breath. The patient was diagnosed with an acute exacerbation of chronic obstructive pulmonary disease. The patient was admitted to the hospital under the care of Dr. Lawson. Consultations were placed to pulmonary. The patient has a history of COPD and sleep apnea. He states he does not use a CPAP because it is very old. 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 Patient agreeable. The patient was started on IV steroids along with Pulmicort and Perforomist. His IV steroids were weaned down and transitioned to oral at the time of discharge. The patient was also receiving empiric antibiotics in the form of Levaquin 750 mg daily. The patient has chronic neck and back pain. He takes [place] on an outpatient basis. Patient was requesting consultation to Dr. Trammell and requesting IV Dilaudid. Patient made aware of hospital wide shortage of IV narcotics. Patient did receive Toradol IV. his [place] was also switched to Percocet while in the hospital. Although the patient states it did not work as well as his [place] and he requested to be switched back to his [place].Consultation to Dr. Trammell was deferred. the patient was deemed stable for discharge. He is to follow up on an outpatient basis with Dr. Lawson and his coal crusher operator. Prescriptions were sent to the patient's preferred pharmacy for Levaquin 750 mg 5 days, prednisone taper, and Mucinex every 12 hours as needed. DISCHARGE DIAGNOSIS: Acute exacerbation of chronic obstructive pulmonary disease History of obstructive sleep apnea, patient states he does not wear his CPAP at home because it is "very old" Essential hypertension Chronic back and neck pain, sees Dr. Trammell outpatient for pain management Anxiety, unspecified Depression, unspecified Bipolar disorder Obesity: BMI 35.2 Nurse practitioner note has been reviewed by physician. Signing provider agrees with the documented findings, assessment, and plan of care. Patient Condition at Discharge: Fair Plan - Discharge Summary Discharge Rx Participant: Yes New Discharge Prescriptions: New guaiFENesin [Mucinex] 600 mg PO Q12HR #20 tab Levofloxacin [Levaquin] 750 mg PO DAILY@1200 #5 tab predniSONE See Taper PO DAILY #30 tab Continue Montelukast [Singulair] 10 mg PO DAILY amLODIPine [Norvasc] 5 mg PO QAM ALPRAZolam [Xanax] 1 mg PO TID Fluticasone/Vilanterol [Breo Ellipta 100-25 Mcg Inhaler] 1 puff INHALATION RT -DAILY Desvenlafaxine [Pristiq ER] 100 mg PO DAILY Umeclidinium [place] [Incruse Ellipta] 1 puff INHALATION RT-DAILY Hydrocodone/Acetaminophen [[place] 10-325] 1 tab PO QID PRN PRN Reason: Pain Albuterol Inhaler [Ventolin Hfa Inhaler] 2 puff INHALATION RT-QID PRN PRN Reason: Shortness Of Breath Famotidine [Pepcid] 20 mg PO DAILY Lurasidone HCl [Latuda] 20 mg PO DAILY Gabapentin [Neurontin] 100 mg PO TID #21 cap Discontinued predniSONE 5 mg PO DAILY Discharge Medication List Montelukast [Singulair] 10 mg PO DAILY 03/16/14 [History] amLODIPine [Norvasc] 5 mg PO QAM 07/05/14 [History] ALPRAZolam [Xanax] 1 mg PO TID 09/20/15 [History] Fluticasone/Vilanterol [Breo Ellipta 100-25 Mcg Inhaler] 1 puff INHALATION RT- DAILY 07/16/16 [History] Desvenlafaxine [Pristiq ER] 100 mg PO DAILY 09/23/16 [History] Umeclidinium [place] [Incruse Ellipta] 1 puff INHALATION RT-DAILY 10/08/16 [ History] Hydrocodone/Acetaminophen [[place] 10-325] 1 tab PO QID PRN 11/06/16 [History] Albuterol Inhaler [Ventolin Hfa Inhaler] 2 puff INHALATION RT-QID PRN 05/28/17 [ History] Famotidine [Pepcid] 20 mg PO DAILY 05/28/17 [History] Lurasidone HCl [Latuda] 20 mg PO DAILY 06/27/17 [History] Gabapentin [Neurontin] 100 mg PO TID #21 cap 07/07/17 [Rx] Levofloxacin [Levaquin] 750 mg PO DAILY@1200 #5 tab 10/14/17 [Rx] guaiFENesin [Mucinex] 600 mg PO Q12HR #20 tab 10/14/17 [Rx] predniSONE See Taper PO DAILY #30 tab 10/14/17 [Rx] Follow up Appointment(s)/Referral(s): Genaro Lawson Jr, DO [Primary Care Provider] - 1 Week Nehemiah Granados MD [STAFF PHYSICIAN] - 1 Week Patient Instructions/Handouts: COPD (Chronic Obstructive Pulmonary Disease) (DC ) Activity/Diet/Wound Care/Special Instructions: Please follow up with Dr. Granados to schedule a sleep study Discharge Disposition: HOME SELF-CARE
== END 2017-10-14 10:43 | disposition home or self-care (01) | DRG 190 ==
LOC: EC 01:37 → 4MS4W 03:58
PROVIDERS: ADMIT Family Medicine; ATTEND Family Medicine
DX: J44.0 Chronic obstructive pulmonary disease with (acute) lower respiratory infection (principal); J96.21 Acute and chronic respiratory failure with hypoxia; J45.901 Unspecified asthma with (acute) exacerbation; E66.01 Morbid (severe) obesity due to excess calories; I48.92 Unspecified atrial flutter; J98.11 Atelectasis; K21.9 Gastro-esophageal reflux disease without esophagitis; F31.9 Bipolar disorder, unspecified; I10 Essential (primary) hypertension; J20.9 Acute bronchitis, unspecified; J44.1 Chronic obstructive pulmonary disease with (acute) exacerbation; G47.33 Obstructive sleep apnea (adult) (pediatric); R73.9 Hyperglycemia, unspecified; T38.0X5A Adverse effect of glucocorticoids and synthetic analogues, initial encounter; G89.4 Chronic pain syndrome; M54.2 Cervicalgia; M54.9 Dorsalgia, unspecified; F41.0 Panic disorder [episodic paroxysmal anxiety]; M19.91 Primary osteoarthritis, unspecified site; Z68.35 Body mass index [BMI] 35.0-35.9, adult; Z79.51 Long term (current) use of inhaled steroids; Z79.52 Long term (current) use of systemic steroids; Z79.899 Other long term (current) drug therapy; Z91.19 Patient's noncompliance with other medical treatment and regimen; Z86.19 Personal history of other infectious and parasitic diseases; Z90.49 Acquired absence of other specified parts of digestive tract; Z87.891 Personal history of nicotine dependence; Z91.010 Allergy to peanuts; Z91.048 Other nonmedicinal substance allergy status; Z82.5 Family history of asthma and other chronic lower respiratory diseases; W06.XXXA Fall from bed, initial encounter; Y92.032 Bedroom in apartment as the place of occurrence of the external cause
CPT/HCPCS: 36415; 71046; 80053; 82550; 82553; 83036; 83690; 83735; 83880; 84484; 85025; 85610; 85730; 87070; 87205; 93005; 94640; 94644; 94667; 94760; 96374; 96375; 99285

== ENCOUNTER 2017-11-16 12:43 | Emergency (ER) | payer MEDICARE, OTHER ==
[2017-11-16] MEDS ORDERED: predniSONE 20 MG TAB PO STA (13:10)
[2017-11-16] MEDS ORDERED: IPRATROPIUM-ALBUTEROL 3 ML NEB INHALATION STA (13:10)
[2017-11-16] MEDS ORDERED: ASPIRIN 81 MG PO STA (13:10)
--- NOTE | 2017-11-16 13:28 | ED ---
General Adult HPI - General Chief complaint: Shortness of Breath Stated complaint: COPD exacerbation Time Seen by Provider: 11/16/17 12:58 Source: patient Mode of arrival: wheelchair Limitations: physical limitation - History of Present Illness Initial comments: Patient is a 61-year-old male who presents with a chief complaint shortness of breath and anxiety. He states that his symptoms started when he woke up this morning. He has a history of COPD and asthma who states that he tried to use his nebulizer treatments for relief but they did not help. The patient cannot identify any inciting incident. There are no aggravating or alleviating factors. Timing is constant. Patient denies any sick contacts. - Related Data Home Medications Medication Instructions Recorded Confirmed Montelukast [Singulair] 10 mg PO DAILY 03/16/14 11/16/17 amLODIPine [Norvasc] 5 mg PO QAM 07/05/14 11/16/17 ALPRAZolam [Xanax] 1 mg PO TID 09/20/15 11/16/17 Fluticasone/Vilanterol [Breo 1 puff INHALATION RT-DAILY 07/16/16 11/16/17 Ellipta 100-25 Mcg Inhaler] Desvenlafaxine [Pristiq ER] 100 mg PO DAILY 09/23/16 11/16/17 Umeclidinium [place] [Incruse 1 puff INHALATION RT-DAILY 10/08/16 11/16/17 Ellipta] Hydrocodone/Acetaminophen [[place] 1 tab PO QID PRN 11/06/16 11/16/17 10-325] Albuterol Inhaler [Ventolin Hfa 2 puff INHALATION RT-QID PRN 05/28/17 11/16/17 Inhaler] Famotidine [Pepcid] 20 mg PO DAILY 05/28/17 11/16/17 Lurasidone HCl [Latuda] 20 mg PO DAILY 06/27/17 11/16/17 Previous Rx's Medication Instructions Recorded Gabapentin [Neurontin] 100 mg PO TID #21 cap 07/07/17 Azithromycin 250 mg PO DAILY #6 tab 11/16/17 predniSONE 60 mg PO DAILY #12 tab 11/16/17 Allergies Allergy/AdvReac Type Severity Reaction Status Date / Time peanut Allergy alg testing Verified 11/16/17 13:59 pollen extracts Allergy Unknown Verified 11/16/17 13:59 DUST Allergy alg testing Uncoded 11/16/17 12:56 Review of Systems ROS Statement: Those systems with pertinent positive or pertinent negative responses have been documented in the HPI. ROS Other: All systems not noted in ROS Statement are negative. Respiratory: Reports: cough, dyspnea Cardiovascular: Reports: chest pain Gastrointestinal: Reports: nausea. Denies: vomiting Psychiatric: Reports: anxiety Past Medical History Past Medical History: Atrial Flutter, Asthma, Chest Pain / Angina, COPD, GERD/ Reflux, Hypertension, Osteoarthritis (OA), Pneumonia, Sleep Apnea/CPAP/BIPAP Additional Past Medical History / Comment(s): Chronic neck and back pain, shingles. History of Any Multi-Drug Resistant Organisms: None Reported Past Surgical History: Adenoidectomy, Bowel Resection, Breast Surgery, Cholecystectomy Additional Past Surgical History / Comment(s): REMOVAL OF UVULA. bowel resection for large polyps, colonoscopy with polypectomies, nasal surgery x 2, bronchoscopy with lung bx, pain clinic procedures. Past Anesthesia/Blood Transfusion Reactions: Previous Problems w/ Anesthesia Additional Past Anesthesia/Blood Transfusion Reaction / Comment(s): states "during procedure of checking something on my left lung,I turned blue and I was brought right back out anesthesia and proc was cancelled" Past Psychological History: Anxiety, Bipolar, Depression, Panic Disorder Smoking Status: Former smoker Past Alcohol Use History: Occasional Past Drug Use History: None Reported - Past Family History Mother Family Medical History: Asthma Father Family Medical History: CVA/TIA General Exam Limitations: no limitations, language barrier, physical limitation General appearance: alert, in no apparent distress Head exam: Present: atraumatic, normocephalic Eye exam: Present: normal appearance ENT exam: Present: mucous membranes moist Neck exam: Present: normal inspection Respiratory exam: Present: normal lung sounds bilaterally, other (Patient has clear breath sounds bilaterally however he has forced wheezes on exam. When asked to breathe deeply with his mouth open, wheezes improved.). Absent: respiratory distress Cardiovascular Exam: Present: normal rhythm, tachycardia GI/Abdominal exam: Present: soft, distended. Absent: tenderness, guarding Rectal exam: Present: deferred Back exam: Present: normal inspection Neurological exam: Present: alert, oriented X3 Psychiatric exam: Present: anxious Skin exam: Present: warm, dry, intact Course Vital Signs 11/16/17 11/16/1718 12:54 13:40 15:00 Temperature 99.2 F Pulse Rate 100 79 Respiratory 20 24 Rate Blood Pressure 159/74 147/78 130/66 O2 Sat by Pulse 92 L 91 L 95 Oximetry 11/16/17 11/16/17 11/16/17 15:36 15:50 16:30 Temperature Pulse Rate 79 71 85 Respiratory 20 Rate Blood Pressure 131/74 O2 Sat by Pulse 94 L Oximetry 11/16/17 16:44 Temperature Pulse Rate 81 Respiratory Rate Blood Pressure O2 Sat by Pulse Oximetry EKG Findings - EKG Comments: EKG Findings:: Normal sinus rhythm - EKG Results: EKG: interpreted by ERMD, WNL, sinus rhythm, normal axis, normal QRS, normal ST/ T EKG shows: sinus rhythm Medical Decision Making - Medical Decision Making Patient presents with a chief complaint of shortness of breath, chest pain and anxiety. On initial evaluation, patient is mildly tachycardic otherwise vital signs are stable. Patient will be evaluated basic cardiac labs. D-dimer and chest x-ray also ordered. He was given duo nebs and steroids for symptomatically relief. He was placed on oxygen for comfort. 4:53 PM Lab evaluation of this patient is unremarkable. Initial troponin is negative, BNP is within normal limits. There is no elevation of the white count. Chest x -ray shows no acute process. D-dimer is elevated above 2, patient was sent for computed tomography scan to evaluate for pulmonary and wasn't. CT does not identify any evidence of pulmonary embolism, there is a incidental finding of a small pericardial effusion. No other acute process in the chest. Currently patient is having bilateral lower extremity Dopplers. I discussed this case with Dr. Nuñez. Dr. Nuñez states that patient was recently in the hospital for the same, we agreed to admit the patient after his workup to see if he has a drop in his oxygen saturation. The patient is able to hold acceptable pulse ox, patient can be discharged home. 6:06 PM Patient was able to keep an oxygen saturation of 88-90% without significant elevation of his heart rate. I discussed this result with Dr. Nuñez and he states this is baseline for the patient. At this time, patient is stable for discharge. I discussed With Him and Instructed That He Follow-Up with Dr. Nuñez Tomorrow in His Office. Patient Verbalizes Understanding and Is Agreeable with the Care Plan. Patient Will Be Treated for a COPD Exacerbation with Azithromycin, and Steroids. Patient Instructed to Return to the Emergency Department If His Symptoms Worsen or Change. - Lab Data Result diagrams: 11/16/17 13:34 11/16/17 13:34 Lab Results 11/16/17 11/16/17 11/16/17 Range/Units 13:34 13:34 13:34 WBC 6.6 (3.8-10.6) k/uL RBC 4.34 (4.30-5.90) m/uL Hgb 14.8 (13.0-17.5) gm/dL Hct 42.8 (39.0-53.0) % MCV 98.6 D (80.0-100.0) fL MCH 34.1 (25.0-35.0) pg MCHC 34.6 (31.0-37.0) g/dL RDW 13.9 (11.5-15.5) % Plt Count 158 (150-450) k/uL Neutrophils % 74 % Lymphocytes % 15 % Monocytes % 8 % Eosinophils % 1 % Basophils % 0 % Neutrophils # 4.8 (1.3-7.7) k/uL Lymphocytes # 1.0 (1.0-4.8) k/uL Monocytes # 0.5 (0-1.0) k/uL Eosinophils # 0.1 (0-0.7) k/uL Basophils # 0.0 (0-0.2) k/uL D-Dimer 2.19 H (<0.60) mg/L FEU VBG pH (7.31-7.41) VBG pCO2 (37-51) mmHg VBG HCO3 (24-28) mmol/L Sodium 142 (137-145) mmol/L Potassium 4.2 (3.5-5.1) mmol/L Chloride 104 (98-107) mmol/L Carbon Dioxide 26 (22-30) mmol/L Anion Gap 12 mmol/L BUN 24 H (9-20) mg/dL Creatinine 0.81 (0.66-1.25) mg/dL Est GFR (CKD-EPI)AfAm >90 (>60 ml/min/1.73 sqM) Est GFR (CKD-EPI)NonAf >90 (>60 ml/min/1.73 sqM) Glucose 111 H (74-99) mg/dL Calcium 8.8 (8.4-10.2) mg/dL Troponin I (0.000-0.034) ng/mL NT-Pro-B Natriuret Pep pg/mL 11/16/17 11/16/17 11/16/17 Range/Units 13:34 13:34 15:13 WBC (3.8-10.6) k/uL RBC (4.30-5.90) m/uL Hgb (13.0-17.5) gm/dL Hct (39.0-53.0) % MCV (80.0-100.0) fL MCH (25.0-35.0) pg MCHC (31.0-37.0) g/dL RDW (11.5-15.5) % Plt Count (150-450) k/uL Neutrophils % % Lymphocytes % % Monocytes % % Eosinophils % % Basophils % % Neutrophils # (1.3-7.7) k/uL Lymphocytes # (1.0-4.8) k/uL Monocytes # (0-1.0) k/uL Eosinophils # (0-0.7) k/uL Basophils # (0-0.2) k/uL D-Dimer (<0.60) mg/L FEU VBG pH 7.28 L (7.31-7.41) VBG pCO2 65 H (37-51) mmHg VBG HCO3 30 H (24-28) mmol/L Sodium (137-145) mmol/L Potassium (3.5-5.1) mmol/L Chloride (98-107) mmol/L Carbon Dioxide (22-30) mmol/L Anion Gap mmol/L BUN (9-20) mg/dL Creatinine (0.66-1.25) mg/dL Est GFR (CKD-EPI)AfAm (>60 ml/min/1.73 sqM) Est GFR (CKD-EPI)NonAf (>60 ml/min/1.73 sqM) Glucose (74-99) mg/dL Calcium (8.4-10.2) mg/dL Troponin I 0.013 (0.000-0.034) ng/mL NT-Pro-B Natriuret Pep 63 pg/mL 11/16/17 Range/Units 16:33 WBC (3.8-10.6) k/uL RBC (4.30-5.90) m/uL Hgb (13.0-17.5) gm/dL Hct (39.0-53.0) % MCV (80.0-100.0) fL MCH (25.0-35.0) pg MCHC (31.0-37.0) g/dL RDW (11.5-15.5) % Plt Count (150-450) k/uL Neutrophils % % Lymphocytes % % Monocytes % % Eosinophils % % Basophils % % Neutrophils # (1.3-7.7) k/uL Lymphocytes # (1.0-4.8) k/uL Monocytes # (0-1.0) k/uL Eosinophils # (0-0.7) k/uL Basophils # (0-0.2) k/uL D-Dimer (<0.60) mg/L FEU VBG pH (7.31-7.41) VBG pCO2 (37-51) mmHg VBG HCO3 (24-28) mmol/L Sodium (137-145) mmol/L Potassium (3.5-5.1) mmol/L Chloride (98-107) mmol/L Carbon Dioxide (22-30) mmol/L Anion Gap mmol/L BUN (9-20) mg/dL Creatinine (0.66-1.25) mg/dL Est GFR (CKD-EPI)AfAm (>60 ml/min/1.73 sqM) Est GFR (CKD-EPI)NonAf (>60 ml/min/1.73 sqM) Glucose (74-99) mg/dL Calcium (8.4-10.2) mg/dL Troponin I 0.012 (0.000-0.034) ng/mL NT-Pro-B Natriuret Pep pg/mL Disposition Clinical Impression: COPD exacerbation Disposition: HOME SELF-CARE Condition: Good Is patient prescribed a controlled substance at discharge?: No Referrals: Michael Nuñez MD [Primary Care Provider] - 1-2 days - Out of Hospital Transfer - Req. Specs Out of Hospital Transfer - Requested Specifics: Other Non-Acute
[2017-11-16 14:05] LABS: Basophils % (A) 0 %; Eosinophils # (A) 0.1 k/uL (0-0.7); Eosinophils % (A) 1 %; HCT 42.8 % (39.0-53.0); HGB 14.8 gm/dL (13.0-17.5); Lymphocytes % (A) 15 %; MCH 34.1 pg (25.0-35.0); MCHC 34.6 g/dL (31.0-37.0); Mean Platelet Volume 6.9; Monocytes # (A) 0.5 k/uL (0-1.0); Monocytes % (A) 8 %; Neutrophils # (A) 4.8 k/uL (1.3-7.7); Neutrophils % (A) 74 %; Platelet Count 158 k/uL (150-450); RBC 4.34 m/uL (4.30-5.90); RDW 13.9 % (11.5-15.5); WBC 6.6 k/uL (3.8-10.6)
[2017-11-16 14:06] LABS: Anion Gap 12 mmol/L; Calcium 8.8 mg/dL (8.4-10.2); Carbon Dioxide 26 mmol/L (22-30); Chloride 104 mmol/L (98-107); Glucose 111 mg/dL (74-99); Sodium 142 mmol/L (137-145)
[2017-11-16 14:08] LABS: Blood Urea Nitrogen 24 mg/dL (9-20); MCV 98.6 fL (80.0-100.0); Potassium 4.2 mmol/L (3.5-5.1)
[2017-11-16] MEDS ORDERED: RX INFO: IV CONTRAST WAS GIVEN 1 EACH MISC MISCELLANE PRN (14:08)
--- NOTE | 2017-11-16 14:46 | XR ---
EXAMINATION TYPE: XR chest 2V DATE OF EXAM: 11/16/2017 COMPARISON: CTA chest July 20, 2017. Two view chest xray October 10, 2017. HISTORY: Shortness of breath TECHNIQUE: Frontal and lateral views of the chest are obtained. FINDINGS: There is no focal air space opacity, pleural effusion, or pneumothorax seen. The cardiac silhouette size remains enlarged. The osseous structures are intact. IMPRESSION: Cardiomegaly without acute pulmonary process currently.
[2017-11-16 15:38] LABS: VBG PH 7.28 (7.31-7.41)
--- NOTE | 2017-11-16 15:48 | CT ---
EXAMINATION TYPE: CT chest angio for PE DATE OF EXAM: 11/16/2017 COMPARISON: NONE HISTORY: Shortness of breath CT DLP: 551.80 mGycm. Automated Exposure Control for Dose Reduction was Utilized. CONTRAST: CTA scan of the thorax is performed with IV Contrast, patient injected with 100 mL of Isovue 370, pul monary embolism protocol. MIP Images are created on CT scanner and reviewed. FINDINGS: LUNGS: Minimal bibasilar subsegmental dependent atelectasis is seen. The lungs are grossly clear, the re is no concerning parenchymal mass or nodule identified. There is no pleural effusion or pneumoth orax seen. The tracheobronchial tree is patent. MEDIASTINUM: There is satisfactory enhancement of the pulmonary artery and its branches, there is no CT evidence for pulmonary embolism. There are no greater than 1 cm hilar or mediastinal lymph nodes. Moderate three-vessel coronary calcifications are incidentally noted. Trace anterior pericardial eff usion and mild cardiomegaly are seen. OTHER: The liver is diffusely hypoattenuated in comparison to the spleen compatible with hepatic stea tosis. There is a small hiatal hernia and herniation of mesenteric fat through the diaphragmatic hiat us into the inferior mediastinum. IMPRESSION: 1. No evidence of pulmonary embolus. 2. Trace pericardial effusion, mild cardiomegaly and three-vessel coronary artery calcifications (jose miguel paredes for coronary artery disease). 3. Small hiatal hernia. 4. Findings most compatible with hepatic steatosis.
--- NOTE | 2017-11-16 17:17 | US ---
EXAMINATION TYPE: US venous doppler duplex LE DATE OF EXAM: 11/16/2017 5:03 PM COMPARISON: NONE CLINICAL HISTORY: Pain. SIDE PERFORMED: Bilateral TECHNIQUE: The lower extremity deep venous system is examined utilizing real time linear array sonog heriberto with graded compression, doppler sonography and color-flow sonography. VESSELS IMAGED: External Iliac Vein (EIV) Common Femoral Vein Deep Femoral Vein Greater Saphenous Vein * Femoral Vein Popliteal Vein Small Saphenous Vein * Proximal Calf Veins (* superficial vessels) Patient of large body habitus with swelling worse on the right. Grayscale, color doppler, spectral doppler imaging performed of the deep veins of the lower extremiti es. There is normal flow, compressibility, vascular waveforms. Limited evaluation of the right popli teal fossa. IMPRESSION: Right Leg: Appears negative for DVT, unable to compress at pop fossa due to patient intolerance of e xam. Left Leg: Negative for DVT
[2017-11-16 18:14] VITALS: BP 166/93; PULSE 83; RESP 16; TEMP 98.2
== END 2017-11-16 18:18 | disposition home or self-care (01) ==
LOC: EC 12:43
DX: J44.1 Chronic obstructive pulmonary disease with (acute) exacerbation (principal); I48.92 Unspecified atrial flutter; K21.9 Gastro-esophageal reflux disease without esophagitis; I10 Essential (primary) hypertension; M19.90 Unspecified osteoarthritis, unspecified site; G47.30 Sleep apnea, unspecified; Z99.89 Dependence on other enabling machines and devices; F41.0 Panic disorder [episodic paroxysmal anxiety]; F31.9 Bipolar disorder, unspecified; Z87.891 Personal history of nicotine dependence; Z79.51 Long term (current) use of inhaled steroids; Z79.899 Other long term (current) drug therapy; Z91.010 Allergy to peanuts; Z91.048 Other nonmedicinal substance allergy status; Z91.09 Other allergy status, other than to drugs and biological substances
CPT/HCPCS: 36415; 94644; 93005; 85379; 83880; 80048; 82803; 84484; 85025; 71046; 93970; 71275; 99285; J7512; Q9967

== ENCOUNTER 2017-11-17 11:12 | Inpatient (IN) | payer MEDICARE, OTHER ==
[2017-11-17] MEDS ORDERED: IPRATROPIUM-ALBUTEROL 3 ML NEB INHALATION STA ×2 (11:54→15:20)
[2017-11-17] MEDS ORDERED: ONDANSETRON ODT 4 MG TAB PO STA (11:54)
[2017-11-17] MEDS ORDERED: methylPREDNISolone SOD SUCCI 125 MG/2 ML VIAL IV STA (11:54)
--- NOTE | 2017-11-17 12:04 | ED ---
General Adult HPI <Alexander Dykes - Last Filed: 11/17/17 15:37> - General Source: patient, RN notes reviewed, old records reviewed Mode of arrival: wheelchair Limitations: physical limitation <Forrest Garcia - Last Filed: 11/17/17 15:42> - General Chief complaint: Shortness of Breath Stated complaint: congestion/SOB-revisit Time Seen by Provider: 11/17/17 11:45 - History of Present Illness Initial comments: Patient's a 61-year-old male presenting to the emergency room today with a chief complaint of shortness breath with cough congestion nausea vomiting over the past 2 days. He does admit that he was seen here in the emergency room for this. Patient states still feeling better today. He did try to "was doctor's office but he was not in the office today. He came back here to the emergency room. Patient admits not feeling any better. States still feeling nauseated. States had some vomiting. States that he has had a sore throat. States feels short of breath. Patient denies any new symptoms compared to yesterday. Patient denies any recent fever, chills, shortness of breath, chest pain, numbness or tingling, dysuria or hematuria, constipation or diarrhea, headaches or visual changes, or any other complaints. (Forrest Garcia) - Related Data Home Medications Medication Instructions Recorded Confirmed Montelukast [Singulair] 10 mg PO DAILY 03/16/14 11/17/17 amLODIPine [Norvasc] 5 mg PO QAM 07/05/14 11/17/17 ALPRAZolam [Xanax] 1 mg PO TID 09/20/15 11/17/17 Fluticasone/Vilanterol [Breo 1 puff INHALATION RT-DAILY 07/16/16 11/17/17 Ellipta 100-25 Mcg Inhaler] Desvenlafaxine [Pristiq ER] 100 mg PO DAILY 09/23/16 11/17/17 Umeclidinium [place] [Incruse 1 puff INHALATION RT-DAILY 10/08/16 11/17/17 Ellipta] Hydrocodone/Acetaminophen [[place] 1 tab PO QID PRN 11/06/16 11/17/17 10-325] Albuterol Inhaler [Ventolin Hfa 2 puff INHALATION RT-QID PRN 05/28/17 11/17/17 Inhaler] Famotidine [Pepcid] 20 mg PO DAILY 05/28/17 11/17/17 Lurasidone HCl [Latuda] 20 mg PO DAILY 06/27/17 11/17/17 Azithromycin See Taper PO DAILY 11/17/17 11/17/17 Previous Rx's Medication Instructions Recorded Gabapentin [Neurontin] 100 mg PO TID #21 cap 07/07/17 predniSONE 60 mg PO DAILY #12 tab 11/16/17 Allergies Allergy/AdvReac Type Severity Reaction Status Date / Time peanut Allergy alg testing Verified 11/17/17 12:56 pollen extracts Allergy Unknown Verified 11/17/17 12:56 DUST Allergy alg testing Uncoded 11/17/17 11:23 Review of Systems ROS Other: All systems not noted in ROS Statement are negative. <Alexander Dykes - Last Filed: 11/17/17 15:37> ROS Other: All systems not noted in ROS Statement are negative. <Forrest Garcia - Last Filed: 11/17/17 15:42> ROS Statement: Those systems with pertinent positive or pertinent negative responses have been documented in the HPI. Past Medical History Past Medical History: Atrial Flutter, Asthma, Chest Pain / Angina, COPD, GERD/ Reflux, Hypertension, Osteoarthritis (OA), Pneumonia, Sleep Apnea/CPAP/BIPAP Additional Past Medical History / Comment(s): Chronic neck and back pain, shingles. History of Any Multi-Drug Resistant Organisms: None Reported Past Surgical History: Adenoidectomy, Bowel Resection, Breast Surgery, Cholecystectomy Additional Past Surgical History / Comment(s): REMOVAL OF UVULA. bowel resection for large polyps, colonoscopy with polypectomies, nasal surgery x 2, bronchoscopy with lung bx, pain clinic procedures. Past Anesthesia/Blood Transfusion Reactions: Previous Problems w/ Anesthesia Additional Past Anesthesia/Blood Transfusion Reaction / Comment(s): states "during procedure of checking something on my left lung,I turned blue and I was brought right back out anesthesia and proc was cancelled" Past Psychological History: Anxiety, Bipolar, Depression, Panic Disorder Smoking Status: Former smoker Past Alcohol Use History: Occasional Past Drug Use History: None Reported - Past Family History Mother Family Medical History: Asthma Father Family Medical History: CVA/TIA <Forrest Garcia - Last Filed: 11/17/17 15:42> General Exam <Alexander Dykes - Last Filed: 11/17/17 15:37> Limitations: physical limitation <Forrest Garcai - Last Filed: 11/17/17 15:42> - General Exam Comments Initial Comments: General: The patient is awake and alert, in no distress, and does not appear acutely ill. Eye: Pupils are equal, round and reactive to light, extra-ocular movements are intact. No nystagmus. There is normal conjunctiva bilaterally. No signs of icterus. Ears, nose, mouth and throat: There are moist mucous membranes and no oral lesions. Neck: The neck is supple, there is no tenderness or JVD. Cardiovascular: There is a regular rate and rhythm. No murmur, rub or gallop is appreciated. Respiratory: Decreased lung sounds bilaterally. Audible wheeze. respirations are non-labored, breath sounds are equal. No stridor, rales, or rhonchi. Gastrointestinal: Soft, non-distended, non-tender abdomen without masses or organomegaly noted. There is no rebound or guarding present. No CVA tenderness. Bowel sounds are unremarkable. Musculoskeletal: Normal ROM, no tenderness. Strength 5/5. Sensation intact. Pulses equal bilaterally 2+. Neurological: A&O x 3. CN II-XII intact, There are no obvious motor or sensory deficits. Coordination appears grossly intact. Speech is normal. Skin: Skin is warm and dry and no rashes or lesions are noted. Psychiatric: Cooperative, appropriate mood & affect, normal judgment. (Forrest Garcia) Course <Alexander Dykes - Last Filed: 11/17/17 15:37> <Forrest Garcia - Last Filed: 11/17/17 15:42> Vital Signs 11/17/17 11/17/17 11/17/17 11:21 12:18 12:23 Temperature 98.4 F Pulse Rate 96 84 89 Respiratory 22 18 Rate Blood Pressure 198/93 186/101 O2 Sat by Pulse 94 L 97 Oximetry 11/17/17 11/17/17 11/17/17 12:30 13:21 13:48 Temperature Pulse Rate 82 81 72 Respiratory 18 18 Rate Blood Pressure 139/76 144/88 O2 Sat by Pulse 94 L 97 Oximetry - Reevaluation(s) Reevaluation #1: 11/17/17 15:37 I did personally do a [id number] evaluation the patient and did discuss the findings with him. Patient is still dyspneic with wheezing. He's had nausea vomiting. He has have reproducible chest pain. He has failed outpatient treatment. (Alexander Dykes) Medical Decision Making - Lab Data Result diagrams: 11/17/17 12:15 11/17/17 12:15 <Alexander Dykes - Last Filed: 11/17/17 15:37> - Lab Data Result diagrams: 11/17/17 12:15 11/17/17 12:15 <Forrest Garcia - Last Filed: 11/17/17 15:42> - Medical Decision Making Patient's labs been reviewed. Chest x-rays negative. Patient continues to feel short of breath through the emergency room. Pulse ox and lower 90s. Case discussed and seen by attending physician Dr. Dykes who did discuss case with admitting physician Dr. Nuñez request consult Dr. Granados. Patient will be admitted for COPD exacerbation about patient treatment failure. (Forrest Garcia) - Lab Data Lab Results 11/17/17 11/17/17 11/17/17 Range/Units 12:13 12:15 12:15 WBC 4.1 (3.8-10.6) k/uL RBC 3.95 L (4.30-5.90) m/uL Hgb 13.7 (13.0-17.5) gm/dL Hct 39.3 (39.0-53.0) % MCV 99.5 (80.0-100.0) fL MCH 34.7 (25.0-35.0) pg MCHC 34.9 (31.0-37.0) g/dL RDW 14.1 (11.5-15.5) % Plt Count 126 L (150-450) k/uL Neutrophils % 75 % Lymphocytes % 17 % Monocytes % 6 % Eosinophils % 1 % Basophils % 1 % Neutrophils # 3.1 (1.3-7.7) k/uL Lymphocytes # 0.7 L (1.0-4.8) k/uL Monocytes # 0.2 (0-1.0) k/uL Eosinophils # 0.0 (0-0.7) k/uL Basophils # 0.0 (0-0.2) k/uL PT (9.0-12.0) sec INR (<1.2) APTT (22.0-30.0) sec Sodium (137-145) mmol/L Potassium (3.5-5.1) mmol/L Chloride (98-107) mmol/L Carbon Dioxide (22-30) mmol/L Anion Gap mmol/L BUN (9-20) mg/dL Creatinine (0.66-1.25) mg/dL Est GFR (CKD-EPI)AfAm (>60 ml/min/1.73 sqM) Est GFR (CKD-EPI)NonAf (>60 ml/min/1.73 sqM) Glucose (74-99) mg/dL Calcium (8.4-10.2) mg/dL Total Bilirubin (0.2-1.3) mg/dL AST (17-59) U/L ALT (21-72) U/L Alkaline Phosphatase (38-126) U/L Total Creatine Kinase 96 (55-170) U/L CK-MB (CK-2) 2.7 H* (0.0-2.4) ng/mL CK-MB (CK-2) Rel Index 2.8 Troponin I 0.019 (0.000-0.034) ng/mL NT-Pro-B Natriuret Pep pg/mL Total Protein (6.3-8.2) g/dL Albumin (3.5-5.0) g/dL Lipase (23-300) U/L Urine Color Yellow Urine Appearance Clear (Clear) Urine pH 5.5 (5.0-8.0) Ur Specific [place] 1.020 (1.001-1.035) Urine Protein Negative (Negative) Urine Glucose (UA) 2+ H (Negative) Urine Ketones Negative (Negative) Urine Blood Negative (Negative) Urine Nitrite Negative (Negative) Urine Bilirubin Negative (Negative) Urine Urobilinogen <2.0 (<2.0) mg/dL Ur Leukocyte Esterase Negative (Negative) 11/17/17 11/17/17 11/17/17 Range/Units 12:15 12:15 12:15 WBC (3.8-10.6) k/uL RBC (4.30-5.90) m/uL Hgb (13.0-17.5) gm/dL Hct (39.0-53.0) % MCV (80.0-100.0) fL MCH (25.0-35.0) pg MCHC (31.0-37.0) g/dL RDW (11.5-15.5) % Plt Count (150-450) k/uL Neutrophils % % Lymphocytes % % Monocytes % % Eosinophils % % Basophils % % Neutrophils # (1.3-7.7) k/uL Lymphocytes # (1.0-4.8) k/uL Monocytes # (0-1.0) k/uL Eosinophils # (0-0.7) k/uL Basophils # (0-0.2) k/uL PT 10.1 (9.0-12.0) sec INR 1.0 (<1.2) APTT 21.0 L (22.0-30.0) sec Sodium 145 (137-145) mmol/L Potassium 4.2 (3.5-5.1) mmol/L Chloride 107 (98-107) mmol/L Carbon Dioxide 29 (22-30) mmol/L Anion Gap 9 mmol/L BUN 20 (9-20) mg/dL Creatinine 0.73 (0.66-1.25) mg/dL Est GFR (CKD-EPI)AfAm >90 (>60 ml/min/1.73 sqM) Est GFR (CKD-EPI)NonAf >90 (>60 ml/min/1.73 sqM) Glucose 178 H (74-99) mg/dL Calcium 8.8 (8.4-10.2) mg/dL Total Bilirubin 0.3 (0.2-1.3) mg/dL AST 36 (17-59) U/L ALT 59 (21-72) U/L Alkaline Phosphatase 95 (38-126) U/L Total Creatine Kinase (55-170) U/L CK-MB (CK-2) (0.0-2.4) ng/mL CK-MB (CK-2) Rel Index Troponin I (0.000-0.034) ng/mL NT-Pro-B Natriuret Pep 116 pg/mL Total Protein 5.5 L (6.3-8.2) g/dL Albumin 3.5 (3.5-5.0) g/dL Lipase 161 (23-300) U/L Urine Color Urine Appearance (Clear) Urine pH (5.0-8.0) Ur Specific [place] (1.001-1.035) Urine Protein (Negative) Urine Glucose (UA) (Negative) Urine Ketones (Negative) Urine Blood (Negative) Urine Nitrite (Negative) Urine Bilirubin (Negative) Urine Urobilinogen (<2.0) mg/dL Ur Leukocyte Esterase (Negative) Disposition <Alexander Dykes - Last Filed: 11/17/17 15:37> Is patient prescribed a controlled substance at discharge?: No Time of Disposition: 15:42 <Forrest Garcia - Last Filed: 11/17/17 15:42> Clinical Impression: COPD exacerbation, Failure of outpatient treatment Disposition: ADMITTED IP TO THIS HOSP Condition: Stable Referrals: Michael Nuñez MD [Primary Care Provider] - 1-2 days
[2017-11-17] MEDS ORDERED: amLODIPine 5 MG TAB PO STA (12:29)
[2017-11-17] MEDS ORDERED: hydrALAZINE HCL 20 MG/ML 1 ML VIAL IVP STA (12:30)
[2017-11-17 12:36] LABS: Basophils % (A) 1 %; Eosinophils % (A) 1 %; HCT 39.3 % (39.0-53.0); HGB 13.7 gm/dL (13.0-17.5); Lymphocytes # (A) 0.7 k/uL (1.0-4.8); Lymphocytes % (A) 17 %; MCH 34.7 pg (25.0-35.0); MCHC 34.9 g/dL (31.0-37.0); MCV 99.5 fL (80.0-100.0); Mean Platelet Volume 7.1; Monocytes # (A) 0.2 k/uL (0-1.0); Monocytes % (A) 6 %; Neutrophils # (A) 3.1 k/uL (1.3-7.7); Neutrophils % (A) 75 %; Platelet Count 126 k/uL (150-450); RBC 3.95 m/uL (4.30-5.90); RDW 14.1 % (11.5-15.5); WBC 4.1 k/uL (3.8-10.6)
[2017-11-17] MEDS ORDERED: HYDROcodone/APAP 10-325MG 1 EACH TAB PO ONE ×2 (12:40→21:46)
[2017-11-17 12:43] LABS: ALT 59 U/L (21-72); AST 36 U/L (17-59); Albumin 3.5 g/dL (3.5-5.0); Alkaline Phosphatase 95 U/L (38-126); Anion Gap 9 mmol/L; Blood Urea Nitrogen 20 mg/dL (9-20); Calcium 8.8 mg/dL (8.4-10.2); Carbon Dioxide 29 mmol/L (22-30); Chloride 107 mmol/L (98-107); Glucose 178 mg/dL (74-99); Lipase 161 U/L (23-300); Potassium 4.2 mmol/L (3.5-5.1); Sodium 145 mmol/L (137-145); Total Bilirubin 0.3 mg/dL (0.2-1.3); Total Protein 5.5 g/dL (6.3-8.2)
--- NOTE | 2017-11-17 12:43 | XR ---
EXAMINATION TYPE: XR chest 2V DATE OF EXAM: 11/17/2017 COMPARISON: 11/16/2017 HISTORY: 61 year-old male shortness of breath TECHNIQUE: PA and lateral views FINDINGS: Heart borderline enlarged. Aorta and pulmonary vasculature within normal limits. Peribronchial cuffin g and interstitial prominence. Some patchy posterior basilar opacity on the lateral view. Some strand y left basilar atelectasis. No pleural effusion. IMPRESSION: 1. Borderline heart size unchanged. 2. Some patchy posterior basilar opacity is similar suggestive of atelectasis. 3. Mild peribronchial cuffing could reflect bronchitis or asthma.
[2017-11-17 12:53] LABS: Prothrombin Time 10.1 sec (9.0-12.0)
[2017-11-17 13:10] LABS: Troponin I 0.019 ng/mL (0.000-0.034)
[2017-11-17 13:15] LABS: Creatine Kinase MB 2.7 ng/mL (0.0-2.4)
[2017-11-17 14:12] LABS: Appearance,Urine Clear (Clear); Bilirubin,Urine Negative (Negative); Blood,Urine Negative (Negative); Color,Urine Yellow; Glucose,Urine (UA) 2+ (Negative); Ketones,Urine Negative (Negative); Leukocyte Esterase,Urine Negative (Negative); Nitrite,Urine Negative (Negative); PH, Urine 5.5 (5.0-8.0); Protein,Urine Negative (Negative); Urobilinogen,Urine <2.0 mg/dL (<2.0)
[2017-11-17] MEDS ORDERED: SODIUM CHLORIDE 0.9% 1,000 ML IV ONE (15:38)
[2017-11-17] MEDS ORDERED: ALBUTEROL INHALER 60 PUFF/8 GM INHALER INHALATION PRN (15:40)
[2017-11-17] MEDS ORDERED: MORPHINE SULFATE 4MG/4ML SYRG ONE (16:19)
[2017-11-17] MEDS ORDERED: ALPRAZolam 1 MG TAB PO STA (16:27)
[2017-11-17] MEDS: ALPRAZolam 1 MG TAB PO SCH ×2 (18:12→21:22)
[2017-11-17] MEDS: GABAPENTIN 100 MG CAP PO SCH ×2 (18:46→22:04)
[2017-11-17] MEDS: methylPREDNISolone SOD SUCCI 125 MG/2 ML VIAL IV SCH ×2 (18:46→23:18)
[2017-11-17] MEDS: HYDROcodone/APAP 10-325MG 1 EACH TAB PO PRN (18:47)
[2017-11-17 20:27] LABS: Glucose,Whole Blood 191 mg/dL (75-99)
[2017-11-17] MEDS: INSULIN ASPART 100 UNIT/ML 1 ML 10 ML VIAL SQ SCH (21:22)
[2017-11-17] MEDS: IPRATROPIUM-ALBUTEROL 3 ML NEB INHALATION PRN (23:21)
[2017-11-18] MEDS: HYDROcodone/APAP 10-325MG 1 EACH TAB PO PRN ×6 (00:37→23:03)
[2017-11-18] MEDS ORDERED: ZOLPIDEM 5 MG TAB PO ONE (00:38)
[2017-11-18 03:05] LABS: Hemoglobin A1C 5.5 % (4.0-6.0)
[2017-11-18] MEDS: methylPREDNISolone SOD SUCCI 125 MG/2 ML VIAL IV SCH ×3 (05:07→18:12)
[2017-11-18] MEDS: IPRATROPIUM-ALBUTEROL 3 ML NEB INHALATION PRN ×2 (05:53→08:05)
--- NOTE | 2017-11-18 06:43 | P.CONS ---
History of Present Illness - Chief Complaint Chronic back pain - History of Present Illness I had the op to see patient for inpatient consultation with regard to patient known to me for chronic back pain. He was admitted last night with shortness of breath. Chest x-ray demonstrates borderline heart size as well as atelectasis and a bronchial cuffing consistent with asthma or emphysema. Note that he is on chronic pain medication regimen for myself of [place] 10 every 6 which is currently ordered. I have added PT and OT at this time. Review of Systems Review of systems: ENT: Denies sneezes or discharge. Eyes: Denies discharge or photophobia. Cardiac: Denies chest pain or palpitation. Pulmonary: Moderate shortness of breath. Gastrointestinal: Denies nausea, emesis, constipation, diarrhea. Genitourinary: Denies discharge or frequency. Musculoskeletal: Diffuse neck and back pain. Neurologic: Denies motor or sensory change. Endocrine: Denies shakes or sweats. Oncology: Denies cancers. Dermatologic: Denies rash, itching, pruritus. ALLERGY/immunology: Denies sneezes, rashes. Past Medical History Past Medical History: Atrial Flutter, Asthma, Chest Pain / Angina, COPD, GERD/ Reflux, Hypertension, Osteoarthritis (OA), Pneumonia, Sleep Apnea/CPAP/BIPAP Additional Past Medical History / Comment(s): Chronic neck and back pain, shingles. History of Any Multi-Drug Resistant Organisms: None Reported Past Surgical History: Adenoidectomy, Bowel Resection, Breast Surgery, Cholecystectomy Additional Past Surgical History / Comment(s): REMOVAL OF UVULA. bowel resection for large polyps, colonoscopy with polypectomies, nasal surgery x 2, bronchoscopy with lung bx, pain clinic procedures. Past Anesthesia/Blood Transfusion Reactions: Previous Problems w/ Anesthesia, Motion Sickness Additional Past Anesthesia/Blood Transfusion Reaction / Comm: states "during procedure of checking something on my left lung,I turned blue and I was brought right back out anesthesia and proc was cancelled". clausterphobia Smoking Status: Former smoker - Past Family History Mother Family Medical History: Asthma Additional Family Medical History / Comment(s): at age 62 Father Family Medical History: CVA/TIA Additional Family Medical History / Comment(s): at age 90 Medications and Allergies Home Medications Medication Instructions Recorded Confirmed Type Montelukast [Singulair] 10 mg PO DAILY 03/16/14 11/17/17 History amLODIPine [Norvasc] 5 mg PO QAM 07/05/14 11/17/17 History ALPRAZolam [Xanax] 1 mg PO TID 09/20/15 11/17/17 History Fluticasone/Vilanterol [Breo 1 puff INHALATION RT-DAILY 07/16/16 11/17/17 History Ellipta 100-25 Mcg Inhaler] Desvenlafaxine [Pristiq ER] 100 mg PO DAILY 09/23/16 11/17/17 History Umeclidinium [place] [Incruse 1 puff INHALATION RT-DAILY 10/08/16 11/17/17 History Ellipta] Hydrocodone/Acetaminophen [[place] 1 tab PO QID PRN 11/06/16 11/17/17 History 10-325] Albuterol Inhaler [Ventolin Hfa 2 puff INHALATION RT-QID PRN 05/28/17 11/17/17 History Inhaler] Famotidine [Pepcid] 20 mg PO DAILY 05/28/17 11/17/17 History Lurasidone HCl [Latuda] 20 mg PO DAILY 06/27/17 11/17/17 History Gabapentin [Neurontin] 100 mg PO TID #21 cap 07/07/17 11/17/17 Rx predniSONE 60 mg PO DAILY #12 tab 11/16/17 11/17/17 Rx Azithromycin See Taper PO DAILY 11/17/17 11/17/17 History Allergies Allergy/AdvReac Type Severity Reaction Status Date / Time peanut Allergy alg testing Verified 11/17/17 12:56 pollen extracts Allergy Unknown Verified 11/17/17 12:56 DUST Allergy alg testing Uncoded 11/17/17 11:23 Physical Exam Vitals: Vital Signs Temp Pulse Pulse Resp BP BP Pulse Ox 11/18/17 06:06 74 11/18/17 05:53 80 11/18/17 00:22 98.3 F 91 19 142/76 92 L 11/17/17 23:39 88 11/17/17 23:23 88 11/17/17 22:42 98.1 F 98 24 173/96 95 11/17/17 18:54 96.7 F L 76 16 176/91 95 11/17/17 18:00 98.0 F 79 17 154/98 95 11/17/17 16:21 86 11/17/17 16:12 84 11/17/17 13:48 72 18 144/88 97 11/17/17 13:21 81 18 139/76 94 L 11/17/17 12:30 82 11/17/17 12:23 89 18 186/101 97 11/17/17 12:18 84 11/17/17 11:21 98.4 F 96 22 198/93 94 L Intake and Output 11/17/17 11/17/17 11/18/17 14:59 22:59 06:59 Other: Voiding Method Toilet # Voids 3 2 Weight 113.398 kg Skin: Good color, texture, turgor. General: Overweight build and comfortable appearance. Head: Normocephalic, atraumatic. Eyes: Symmetric. Pupils equal round. Ears: Symmetric. Hearing within normal limits. Mouth: Clear. Neck: Supple. Carotid without bruit. Cardiac: Regular rate and rhythm. Lungs: Clear anteriorly and posteriorly. Abdomen: Soft active nontender. Extremities: Normal tone. Neurological: Mental status: Alert, cooperative, pleasant. Cranial nerves: Symmetric facial tone and trapezius. Motor: Normal strength and isolation all 4 limbs. Sensation: Intact throughout. DTRs: Symmetric and equal throughout. Mobility: Sits without assistance or verbal cueing or loss of balance. Results CBC & Chem 7: 11/17/17 12:15 11/17/17 12:15 Labs: Abnormal Lab Results - Last 24 Hours (Table) 11/17/17 11/17/17 11/17/17 Range/Units 12:13 12:15 12:15 RBC 3.95 L (4.30-5.90) m/uL Plt Count 126 L (150-450) k/uL Lymphocytes # 0.7 L (1.0-4.8) k/uL APTT (22.0-30.0) sec Glucose (74-99) mg/dL POC Glucose (mg/dL) (75-99) mg/dL CK-MB (CK-2) 2.7 H* (0.0-2.4) ng/mL Total Protein (6.3-8.2) g/dL Urine Glucose (UA) 2+ H (Negative) 11/17/17 11/17/17 11/17/17 Range/Units 12:15 12:15 20:23 RBC (4.30-5.90) m/uL Plt Count (150-450) k/uL Lymphocytes # (1.0-4.8) k/uL APTT 21.0 L (22.0-30.0) sec Glucose 178 H (74-99) mg/dL POC Glucose (mg/dL) 191 H (75-99) mg/dL CK-MB (CK-2) (0.0-2.4) ng/mL Total Protein 5.5 L (6.3-8.2) g/dL Urine Glucose (UA) (Negative) Chest x-ray: report reviewed (Borderline cardiomegaly, atelectasis, peribronchial cuffing consistent with asthma or emphysema.) Assessment and Plan (1) COPD exacerbation Current Visit: Yes Status: Acute Code(s): J44.1 - CHRONIC OBSTRUCTIVE PULMONARY DISEASE W (ACUTE) EXACERBATION SNOMED Code(s): 294011884 (2) COPD (chronic obstructive pulmonary disease) with acute bronchitis Current Visit: No Status: Acute Code(s): J44.0 - CHRONIC OBSTRUCTIVE PULMON DISEASE W ACUTE LOWER RESP INFCT SNOMED Code(s): 784000211378447 Plan: Impression: 1. Medical debility. 2. COPD exacerbation with acute bronchitis. 3. Chronic neck and back pain. Comments and plan: At this time patient's main concern is that he of his chronic pain medication management program which is [place] 10 every 6 which she currently has. I've added PT and OT for him at this time because of possible medical debility.
[2017-11-18 07:19] LABS: Glucose,Whole Blood 183 mg/dL (75-99)
[2017-11-18] MEDS: amLODIPine 5 MG TAB PO SCH (08:13)
[2017-11-18] MEDS: LURASIDONE 40 MG TAB PO SCH (08:13)
[2017-11-18] MEDS: ALPRAZolam 1 MG TAB PO SCH ×3 (08:13→23:04)
[2017-11-18] MEDS: DESVENLAFAXINE SUCCINATE 50 MG TAB.ER.24H PO SCH (08:13)
[2017-11-18] MEDS: INSULIN ASPART 100 UNIT/ML 1 ML 10 ML VIAL SQ SCH ×4 (08:13→23:04)
[2017-11-18] MEDS: GABAPENTIN 100 MG CAP PO SCH ×3 (08:13→23:03)
[2017-11-18] MEDS: MONTELUKAST 10 MG TAB PO SCH (08:14)
[2017-11-18] MEDS ORDERED: FAMOTIDINE 20 MG TAB PO SCH (09:00)
[2017-11-18] MEDS: IPRATROPIUM-ALBUTEROL 3 ML NEB INHALATION SCH ×3 (11:55→20:08)
--- NOTE | 2017-11-18 12:03 | XR ---
EXAMINATION TYPE: XR abdomen 1V DATE OF EXAM: 11/18/2017 COMPARISON: 10/05/2015 INDICATION: Abdominal distention vomiting TECHNIQUE: Single view abdomen upright view FINDINGS: There is a normal bowel gas pattern. Psoas margins are normal. No organomegaly is present. No free air is evident. No suspicious differential air-fluid levels are present. IMPRESSION: 1. Unremarkable Abdomen
[2017-11-18] MEDS ORDERED: ONDANSETRON 4 MG/2 ML VIAL IVP PRN (12:09)
[2017-11-18 12:17] LABS: Glucose,Whole Blood 158 mg/dL (75-99)
--- NOTE | 2017-11-18 12:18 | P.HPIM ---
Addendum entered and electronically signed by Jolanta Salter NP-C 11/18/17 15: 00: Testing for influenza A was positive. Tamiflu started. Droplet precautions ordered. Original Note: <Jolanta Salter - Last Filed: 11/18/17 15:00> History of Present Illness H&P Date: 11/18/17 Chief Complaint: Shortness of breath 61-year-old male who presented to the emergency room with a chief complaint of shortness of breath, cough, congestion, and nausea 2 days. Patient states he was seen in the emergency room on 11/16/2017 with similar symptoms. He was discharged home at that time. Patient states he presented to his PCP office but did not have an appointment and there was not a physician in the office at that time. The office staff recommended that the patient come to the ER for further evaluation. The patient has a history of COPD, hypertension, chronic back and neck pain, anxiety, depression, and bipolar disorder. The patient sees Dr. Marcus outpatient for pain management. He also has a history of obstructive sleep apnea and does not wear a CPAP at home because he states it is "very old" Chest x-ray: Some patchy posterior basilar opacity suggestive of atelectasis, mild. Bronchial cuffing could reflect bronchitis or asthma. Laboratory data: WBC 4.1. Hemoglobin 13.7. Platelet count 126. Sodium 145. Potassium 4.2. BUN 20. Creatinine 0.73. Glucose 178. Urinalysis reveals: 2+ glucose, otherwise unremarkable The patient was admitted to the hospital under the care of Dr. Nuñez. Consultations were placed to Dr. Granados, pulmonology and Dr Trammell, pain management. The patient was evaluated at the bedside with Dr. Nuñez. Patient is awake and alert sitting up in bed. Patient continues to complain of shortness of breath at rest and with exertion. Patient is on 2 L nasal cannula with oxygen saturations greater than 92%. Patient complains of frequent coughing. Patient also states he has been experiencing nausea. Patient reports one episode of emesis yesterday. Patient does complain of mild abdominal pain near epigastric region. Patient states he has been having normal bowel movements with at least 1 bowel movement daily. Denies episodes of constipation or diarrhea. Review of Systems GENERAL: Patient denies fever. Denies chills. EYES: Denies blurred vision. Denies vision changes. Denies eye pain. EARS, NOSE, MOUTH, & THROAT: Denies headache. Denies sore throat. Denies ear pain. RESPIRATORY: Positive for shortness of breath. Positive for cough. Positive for sputum production. Denies hemoptysis. CARDIOVASCULAR: Denies chest pain or pressure. Denies palpitations. Denies arrhythmias. GASTROINTESTINAL: Positive for nausea. Positive for emesis 1 yesterday. Positive for mild abdominal pain near epigastric region. Denies diarrhea. Denies constipation. Denies heartburn. Denies blood in the stool. GENITOURINARY: Denies urinary frequency. Denies burning. Denies dysuria. Denies cloudy urine. Denies blood in the urine. MUSCULOSKELETAL: Denies myalgias. Denies joint swelling. Denies decreased range of motion beyond patients baseline. INTEGUMENTARY: Denies pruitis. Denies rash. PSYCHIATRIC: Denies suicidal or homicial ideations. ENDOCRINE: Denies weight change. Denies polydipsia. Denies polyuria. HEMATOLOGIC: Denies bleeding disorders. Past Medical History Past Medical History: Atrial Flutter, Asthma, Chest Pain / Angina, COPD, GERD/ Reflux, Hypertension, Osteoarthritis (OA), Pneumonia, Sleep Apnea/CPAP/BIPAP Additional Past Medical History / Comment(s): Chronic neck and back pain, shingles. History of Any Multi-Drug Resistant Organisms: None Reported Past Surgical History: Adenoidectomy, Bowel Resection, Breast Surgery, Cholecystectomy Additional Past Surgical History / Comment(s): REMOVAL OF UVULA. bowel resection for large polyps, colonoscopy with polypectomies, nasal surgery x 2, bronchoscopy with lung bx, pain clinic procedures. Past Anesthesia/Blood Transfusion Reactions: Previous Problems w/ Anesthesia, Motion Sickness Additional Past Anesthesia/Blood Transfusion Reaction / Comment(s): states "during procedure of checking something on my left lung,I turned blue and I was brought right back out anesthesia and proc was cancelled". clausterphobia Smoking Status: Former smoker - Past Family History Mother Family Medical History: Asthma Additional Family Medical History / Comment(s): at age 62 Father Family Medical History: CVA/TIA Additional Family Medical History / Comment(s): at age 90 Medications and Allergies Home Medications Medication Instructions Recorded Confirmed Type Montelukast [Singulair] 10 mg PO DAILY 03/16/14 11/17/17 History amLODIPine [Norvasc] 5 mg PO QAM 07/05/14 11/17/17 History ALPRAZolam [Xanax] 1 mg PO TID 09/20/15 11/17/17 History Fluticasone/Vilanterol [Breo 1 puff INHALATION RT-DAILY 07/16/16 11/17/17 History Ellipta 100-25 Mcg Inhaler] Desvenlafaxine [Pristiq ER] 100 mg PO DAILY 09/23/16 11/17/17 History Umeclidinium [place] [Incruse 1 puff INHALATION RT-DAILY 10/08/16 11/17/17 History Ellipta] Hydrocodone/Acetaminophen [[place] 1 tab PO QID PRN 11/06/16 11/17/17 History 10-325] Albuterol Inhaler [Ventolin Hfa 2 puff INHALATION RT-QID PRN 05/28/17 11/17/17 History Inhaler] Famotidine [Pepcid] 20 mg PO DAILY 05/28/17 11/17/17 History Lurasidone HCl [Latuda] 20 mg PO DAILY 06/27/17 11/17/17 History Gabapentin [Neurontin] 100 mg PO TID #21 cap 07/07/17 11/17/17 Rx predniSONE 60 mg PO DAILY #12 tab 11/16/17 11/17/17 Rx Azithromycin See Taper PO DAILY 11/17/17 11/17/17 History Allergies Allergy/AdvReac Type Severity Reaction Status Date / Time peanut Allergy alg testing Verified 11/17/17 12:56 pollen extracts Allergy Unknown Verified 11/17/17 12:56 DUST Allergy alg testing Uncoded 11/17/17 11:23 Physical Exam Vitals: Vital Signs Temp Pulse Pulse Resp BP BP Pulse Ox 11/18/17 08:20 88 11/18/17 08:06 88 96 11/18/17 06:06 74 11/18/17 06:05 98.5 F 73 18 144/83 96 11/18/17 05:53 80 11/18/17 00:22 98.3 F 91 19 142/76 92 L 11/17/17 23:39 88 11/17/17 23:23 88 11/17/17 22:42 98.1 F 98 24 173/96 95 11/17/17 18:54 96.7 F L 76 16 176/91 95 11/17/17 18:00 98.0 F 79 17 154/98 95 11/17/17 16:21 86 11/17/17 16:12 84 11/17/17 13:48 72 18 144/88 97 11/17/17 13:21 81 18 139/76 94 L 11/17/17 12:30 82 11/17/17 12:23 89 18 186/101 97 11/17/17 12:18 84 Intake and Output 11/17/17 11/18/17 11/18/17 22:59 06:59 14:59 Other: Voiding Method Toilet # Voids 3 2 GENERAL: This is a 61-year-old male in no apparent distress at the time of examination. Pleasant and cooperative. HEENT: Head is atraumatic, normocephalic. Pupils are equal, round, and reactive to light. Sclerae anicteric. Conjunctivae are clear. Mucus membranes of the mouth are moist. Neck is supple. RESPIRATORY: Scattered rhonchi and expiratory wheezing throughout. Frequent coughing noted. Patient maintaining oxygen saturation greater than 92%. No chest wall tenderness is noted on palpation or with deep breathing. CARDIOVASCULAR: Regular rate and rhythm. S1 and S2 noted. No systolic or diastolic murmur auscultated. No JVD noted. No S3 or S4 noted. GASTROINTESTINAL: Mild abdominal distention noted. Abdomen soft and round. Bowel sounds auscultated x 4 quadrants. Mild pain and tenderness noted upon palpation of epigastric region. INTEGUMENTARY: No cyanosis. No jaundice. No rashes noted. No cellulitis noted. EXTREMITIES: 2+ peripheral pulses. Trace bilateral lower extremity edema. No calf tenderness noted. NEUROLOGIC: Cranial nerves II-XII intact. PSYCHIATRIC: Awake, alert, and oriented X 3. Appropriate affect. Intact judgement and insight. Results CBC & Chem 7: 11/17/17 12:15 11/17/17 12:15 Labs: Abnormal Lab Results - Last 24 Hours (Table) 11/17/17 11/17/17 11/17/17 Range/Units 12:13 12:15 12:15 RBC 3.95 L (4.30-5.90) m/uL Plt Count 126 L (150-450) k/uL Lymphocytes # 0.7 L (1.0-4.8) k/uL APTT (22.0-30.0) sec Glucose (74-99) mg/dL POC Glucose (mg/dL) (75-99) mg/dL CK-MB (CK-2) 2.7 H* (0.0-2.4) ng/mL Total Protein (6.3-8.2) g/dL Urine Glucose (UA) 2+ H (Negative) 11/17/17 11/17/17 11/17/17 Range/Units 12:15 12:15 20:23 RBC (4.30-5.90) m/uL Plt Count (150-450) k/uL Lymphocytes # (1.0-4.8) k/uL APTT 21.0 L (22.0-30.0) sec Glucose 178 H (74-99) mg/dL POC Glucose (mg/dL) 191 H (75-99) mg/dL CK-MB (CK-2) (0.0-2.4) ng/mL Total Protein 5.5 L (6.3-8.2) g/dL Urine Glucose (UA) (Negative) 11/18/17 Range/Units 07:13 RBC (4.30-5.90) m/uL Plt Count (150-450) k/uL Lymphocytes # (1.0-4.8) k/uL APTT (22.0-30.0) sec Glucose (74-99) mg/dL POC Glucose (mg/dL) 183 H (75-99) mg/dL CK-MB (CK-2) (0.0-2.4) ng/mL Total Protein (6.3-8.2) g/dL Urine Glucose (UA) (Negative) Thrombosis Risk Factor Assmnt - Choose All That Apply Each Factor Represents 1 point: Age 41-60 years Thrombosis Risk Factor Assessment Total Risk Factor Score: 1 Thrombosis Risk Factor Assessment Level: Low Risk Assessment and Plan Plan: ASSESSMENT: Acute exacerbation of chronic obstructive pulmonary disease with acute bronchitis Nausea and vomiting with mild abdominal distention, etiology unclear Obstructive sleep apnea, patient noncompliant with CPAP, patient does not wear his CPAP at home because he states it is "very old". Patient was encouraged to follow-up with editor department during last hospitalization to obtain new CPAP machine. Patient reports he has not had repeat sleep study because he owes money to the sleep center. Essential hypertension Chronic back and neck pain, sees Dr. Trammell outpatient for pain management Anxiety, unspecified Depression, unspecified Bipolar disorder Obesity: BMI 35.9 PLAN: Obtain abdominal x-ray MiraLAX 17 g by mouth daily as patient is on chronic opioids Zofran PRN Check influenza A/B Pulmonary, Dr. Granados on consult. Appreciate recommendations and input Duoneb nebulizer treatments QID and PRN Continue IV steroids: 60 mg IV every 6 hours Nov[address] sliding scale Dr. Trammell on consult. Appreciate recommendations and input Narcotics and pain management regimen per Dr. Trammell. Home meds as appropriate Monitor labs GI prophylaxis: Pepcid 20 mg PO BID DVT prophylaxis: PATRICK hose to bilateral lower extremities Monitor vital signs and address as appropriate PT/OT consult Further recommendations pending patient's course Nurse practitioner note has been reviewed by physician. Signing provider agrees with the documented findings, assessment, and plan of care. <Genaro Lawson Jr - Last Filed: 11/19/17 13:50> Physical Exam Osteopathic Statement: *. No significant issues noted on an osteopathic structural exam other than those noted in the History and Physical/Consult. Vitals: Vital Signs Temp Pulse Pulse Pulse Pulse Pulse Pulse 11/19/17 11:28 81 11/19/17 11:18 84 11/19/17 07:46 82 11/19/17 07:36 84 11/19/17 05:28 88 11/19/17 05:25 96.5 F L 80 11/19/17 05:20 88 11/18/17 22:10 97.6 F 96 11/18/17 20:18 92 11/18/17 20:08 90 11/18/17 16:17 88 11/18/17 16:02 90 11/18/17 15:26 95 79 68 11/18/17 15:00 96.9 F L 90 Resp BP Pulse Ox Pulse Ox Pulse Ox Pulse Ox 11/19/17 11:28 16 11/19/17 11:18 16 11/19/17 07:46 16 11/19/17 07:36 16 95 11/19/17 05:28 11/19/17 05:25 16 187/93 97 11/19/17 05:20 11/18/17 22:10 18 169/99 96 11/18/17 20:18 11/18/17 20:08 11/18/17 16:17 11/18/17 16:02 98 11/18/17 15:26 98 94 L 97 11/18/17 15:00 18 151/81 95 Intake and Output 11/18/17 11/19/17 11/19/17 22:59 06:59 14:59 Other: # Voids 1 1 Results CBC & Chem 7: 11/17/17 12:15 11/17/17 12:15 Labs: Abnormal Lab Results - Last 24 Hours (Table) 11/18/17 11/18/17 11/18/17 Range/Units 13:30 17:06 20:51 POC Glucose (mg/dL) 164 H 172 H (75-99) mg/dL Influenza Type A RNA Detected H (Not Detectd) 11/19/17 11/19/17 Range/Units 07:34 12:53 POC Glucose (mg/dL) 151 H 173 H (75-99) mg/dL Influenza Type A RNA (Not Detectd)
[2017-11-18] MEDS: POLYETHYLENE GLYCOL 3350 17 GM POWD.PACK PO SCH (13:27)
[2017-11-18 17:35] LABS: Glucose,Whole Blood 164 mg/dL (75-99)
[2017-11-18] MEDS: OSELTAMIVIR 75 MG CAP PO SCH (18:13)
[2017-11-18 20:56] LABS: Glucose,Whole Blood 172 mg/dL (75-99)
[2017-11-18] MEDS: FAMOTIDINE 20 MG TAB PO SCH (23:03)
[2017-11-18] MEDS: hydrALAZINE HCL 25 MG TAB PO SCH (23:04)
[2017-11-19] MEDS: methylPREDNISolone SOD SUCCI 125 MG/2 ML VIAL IV SCH ×4 (00:44→18:18)
[2017-11-19] MEDS: HYDROcodone/APAP 10-325MG 1 EACH TAB PO PRN ×5 (02:55→20:07)
[2017-11-19] MEDS: IPRATROPIUM-ALBUTEROL 3 ML NEB INHALATION PRN (05:20)
[2017-11-19] MEDS: OSELTAMIVIR 75 MG CAP PO SCH ×2 (06:53→18:19)
[2017-11-19] MEDS: amLODIPine 5 MG TAB PO SCH (06:53)
[2017-11-19] MEDS: IPRATROPIUM-ALBUTEROL 3 ML NEB INHALATION SCH ×4 (07:36→20:41)
[2017-11-19 07:38] LABS: Glucose,Whole Blood 151 mg/dL (75-99)
[2017-11-19] MEDS: POLYETHYLENE GLYCOL 3350 17 GM POWD.PACK PO SCH (07:54)
[2017-11-19] MEDS: ALPRAZolam 1 MG TAB PO SCH ×3 (07:54→21:29)
[2017-11-19] MEDS: hydrALAZINE HCL 25 MG TAB PO SCH ×2 (07:54→20:09)
[2017-11-19] MEDS: INSULIN ASPART 100 UNIT/ML 1 ML 10 ML VIAL SQ SCH ×4 (07:54→21:29)
[2017-11-19] MEDS: GABAPENTIN 100 MG CAP PO SCH ×3 (07:55→21:28)
[2017-11-19] MEDS: LURASIDONE 40 MG TAB PO SCH (07:55)
[2017-11-19] MEDS: FAMOTIDINE 20 MG TAB PO SCH ×2 (07:55→20:09)
[2017-11-19] MEDS: DESVENLAFAXINE SUCCINATE 50 MG TAB.ER.24H PO SCH (07:55)
[2017-11-19] MEDS: MONTELUKAST 10 MG TAB PO SCH (09:12)
[2017-11-19 13:04] LABS: Glucose,Whole Blood 173 mg/dL (75-99)
--- NOTE | 2017-11-19 14:00 | P.CNPUL ---
History of Present Illness Consult date: 11/18/17 (Late entry note) Reason for consult: dyspnea, cough, asthma, COPD, pneumonia, obstructive sleep apnea Chief complaint: Cough shortness of breath worse than baseline for over a week History of present illness: 61-year-old male well-known to me with history of chronic persistent asthma COPD and home oxygen patient has a significant history of sleep disorder breathing and sleep apnea he has not been feeling well for the last week with increased cough congestion shortness of breath 2-3 day prior to coming hospital has been having episodes of gagging coughing and has some nausea and vomiting as well with those problem patient came into emergency department for further evaluation and patient was noted to have significant audible wheezing has been placed on IV steroids antibiotics with further evaluation pending I was asked to evaluate this patient further Patient had a recent visit to emergency department came back again Patient admits not feeling any better. States still feeling nauseated. States had some vomiting. States that he has had a sore throat. States feels short of breath. Patient denies any new symptoms compared to yesterday. Patient denies any recent fever, chills, shortness of breath, chest pain, numbness or tingling , dysuria or hematuria, constipation or diarrhea, headaches or visual changes, or any other complaints. Review of Systems All systems: negative Past Medical History Past Medical History: Atrial Flutter, Asthma, Chest Pain / Angina, COPD, GERD/ Reflux, Hypertension, Osteoarthritis (OA), Pneumonia, Sleep Apnea/CPAP/BIPAP Additional Past Medical History / Comment(s): Chronic neck and back pain, shingles. History of Any Multi-Drug Resistant Organisms: None Reported Past Surgical History: Adenoidectomy, Bowel Resection, Breast Surgery, Cholecystectomy Additional Past Surgical History / Comment(s): REMOVAL OF UVULA. bowel resection for large polyps, colonoscopy with polypectomies, nasal surgery x 2, bronchoscopy with lung bx, pain clinic procedures. Past Anesthesia/Blood Transfusion Reactions: Previous Problems w/ Anesthesia, Motion Sickness Additional Past Anesthesia/Blood Transfusion Reaction / Comment(s): states "during procedure of checking something on my left lung,I turned blue and I was brought right back out anesthesia and proc was cancelled". clausterphobia Smoking Status: Former smoker - Past Family History Mother Family Medical History: Asthma Additional Family Medical History / Comment(s): at age 62 Father Family Medical History: CVA/TIA Additional Family Medical History / Comment(s): at age 90 Medications and Allergies Home Medications Medication Instructions Recorded Confirmed Type Montelukast [Singulair] 10 mg PO DAILY 03/16/14 11/17/17 History amLODIPine [Norvasc] 5 mg PO QAM 07/05/14 11/17/17 History ALPRAZolam [Xanax] 1 mg PO TID 09/20/15 11/17/17 History Fluticasone/Vilanterol [Breo 1 puff INHALATION RT-DAILY 07/16/16 11/17/17 History Ellipta 100-25 Mcg Inhaler] Desvenlafaxine [Pristiq ER] 100 mg PO DAILY 09/23/16 11/17/17 History Umeclidinium [place] [Incruse 1 puff INHALATION RT-DAILY 10/08/16 11/17/17 History Ellipta] Hydrocodone/Acetaminophen [[place] 1 tab PO QID PRN 11/06/16 11/17/17 History 10-325] Albuterol Inhaler [Ventolin Hfa 2 puff INHALATION RT-QID PRN 05/28/17 11/17/17 History Inhaler] Famotidine [Pepcid] 20 mg PO DAILY 05/28/17 11/17/17 History Lurasidone HCl [Latuda] 20 mg PO DAILY 06/27/17 11/17/17 History Gabapentin [Neurontin] 100 mg PO TID #21 cap 07/07/17 11/17/17 Rx predniSONE 60 mg PO DAILY #12 tab 11/16/17 11/17/17 Rx Azithromycin See Taper PO DAILY 11/17/17 11/17/17 History Allergies Allergy/AdvReac Type Severity Reaction Status Date / Time peanut Allergy alg testing Verified 11/17/17 12:56 pollen extracts Allergy Unknown Verified 11/17/17 12:56 DUST Allergy alg testing Uncoded 11/17/17 11:23 Physical Exam Vitals: Vital Signs Temp Pulse Pulse Pulse Pulse Pulse Pulse 11/19/17 11:28 81 11/19/17 11:18 84 11/19/17 07:46 82 11/19/17 07:36 84 11/19/17 05:28 88 11/19/17 05:25 96.5 F L 80 11/19/17 05:20 88 04/19/18 22:10 97.6 F 96 11/18/17 20:18 92 11/18/17 20:08 90 11/18/17 16:17 88 11/18/17 16:02 90 11/18/17 15:26 95 79 68 11/18/17 15:00 96.9 F L 90 Resp BP Pulse Ox Pulse Ox Pulse Ox Pulse Ox 11/19/17 11:28 16 11/19/17 11:18 16 11/19/17 07:46 16 11/19/17 07:36 16 95 11/19/17 05:28 11/19/17 05:25 16 187/93 97 11/19/17 05:20 11/18/17 22:10 18 169/99 96 11/18/17 20:18 11/18/17 20:08 11/18/17 16:17 11/18/17 16:02 98 11/18/17 15:26 98 94 L 97 11/18/17 15:00 18 151/81 95 Intake and Output 11/18/17 11/19/17 11/19/17 22:59 06:59 14:59 Other: # Voids 1 1 General: The patient is awake and alert, mild respiratory distress, Eye: Pupils are equal, round and reactive to light, extra-ocular movements are intact. No nystagmus. There is normal conjunctiva bilaterally. No signs of icterus. Ears, nose, mouth and throat: There are moist mucous membranes and no oral lesions. Neck: The neck is supple, there is no tenderness or JVD. Cardiovascular: There is a regular rate and rhythm. No murmur, rub or gallop is appreciated. Respiratory: Decreased lung sounds bilaterally. Audible wheeze noted on both inspiratory expiratory phase respirations are non-labored, breath sounds are equal. No stridor, rales, or rhonchi. Gastrointestinal: Soft, non-distended, non-tender abdomen without masses or organomegaly noted. There is no rebound or guarding present. No CVA tenderness. Bowel sounds are unremarkable. Musculoskeletal: Normal ROM, no tenderness. Strength 5/5. Sensation intact. Pulses equal bilaterally 2+. Neurological: A&O x 3. CN II-XII intact, There are no obvious motor or sensory deficits. Coordination appears grossly intact. Speech is normal. Skin: Skin is warm and dry and no rashes or lesions are noted. Psychiatric: Cooperative, appropriate mood & affect, normal judgment. Results - Laboratory Findings CBC and BMP: 11/17/17 12:15 11/17/17 12:15 PT/INR, D-dimer PT 10.1 sec (9.0-12.0) 11/17/17 12:15 INR 1.0 (<1.2) 11/17/17 12:15 Abnormal lab findings: Abnormal Labs 11/17/17 11/17/17 11/17/17 12:13 12:15 12:15 RBC 3.95 L Plt Count 126 L Lymphocytes # 0.7 L APTT Glucose POC Glucose (mg/dL) CK-MB (CK-2) 2.7 H* Total Protein Urine Glucose (UA) 2+ H Influenza Type A RNA 11/17/17 11/17/17 11/17/17 12:15 12:15 20:23 RBC Plt Count Lymphocytes # APTT 21.0 L Glucose 178 H POC Glucose (mg/dL) 191 H CK-MB (CK-2) Total Protein 5.5 L Urine Glucose (UA) Influenza Type A RNA 11/18/17 11/18/17 11/18/17 07:13 12:15 13:30 RBC Plt Count Lymphocytes # APTT Glucose POC Glucose (mg/dL) 183 H 158 H CK-MB (CK-2) Total Protein Urine Glucose (UA) Influenza Type A RNA Detected H 11/18/17 11/18/17 11/19/17 17:06 20:51 07:34 RBC Plt Count Lymphocytes # APTT Glucose POC Glucose (mg/dL) 164 H 172 H 151 H CK-MB (CK-2) Total Protein Urine Glucose (UA) Influenza Type A RNA 11/19/17 12:53 RBC Plt Count Lymphocytes # APTT Glucose POC Glucose (mg/dL) 173 H CK-MB (CK-2) Total Protein Urine Glucose (UA) Influenza Type A RNA - Diagnostic Findings Chest x-ray: report reviewed (Kniffen for peribronchial coughing as well as basal atelectasis, less likely to be occult pneumonia), image reviewed Assessment and Plan Assessment: Acute COPD exacerbation Acute asthmatic bronchitis Nausea and vomiting and gagging likely related to above Sleep disorder breathing and sleep apnea patient lately has not been using CPAP machine needs to evaluate further to obtain a new CPAP Hypertension hypertensive cardiovascular disease Chronic low back pain and neck pain Major depression along with generalized anxiety disorder Significant obesity BMI over 35.9 Plan: IV steroids Bronchodilators Gentle rehydration Patient can be placed in simple antibiotics like doxycycline 100 mg by mouth 2 times a day Pain management as per pain services Evaluation and therapy for sleep disorder breathing and sleep apnea as outpatient setting Time with Patient: Greater than 30
--- NOTE | 2017-11-19 14:04 | P.PN ---
Subjective Progress Note Date: 11/19/17 Principal diagnosis: Acute COPD exacerbation, tracheobronchitis, obstructive sleep apnea and sleep disorder breathing, morbid obesity, hypertensive cardio vascular disease, chronic pain syndrome associated with C-spine and LS-spine disease 11/19/2017, patient seen and evaluated examined during the rounds cuff congestion shortness breath is still there patient remains on IV steroids and breathing treatments nasopharyngeal swab was positive for influenza A patient has been placed on Tamiflu for 5 days Objective - Vital Signs Vital signs: Vital Signs Temp 96.5 F L 11/19/17 05:25 Pulse 81 11/19/17 11:28 Resp 16 11/19/17 11:28 BP 187/93 11/19/17 05:25 Pulse Ox 95 11/19/17 07:36 Intake & Output 11/18/17 11/19/17 11/19/17 18:59 06:59 18:59 Other: # Voids 2 1 - Exam General: The patient is awake and alert, mild respiratory distress, Eye: Pupils are equal, round and reactive to light, extra-ocular movements are intact. No nystagmus. There is normal conjunctiva bilaterally. No signs of icterus. Ears, nose, mouth and throat: There are moist mucous membranes and no oral lesions. Neck: The neck is supple, there is no tenderness or JVD. Cardiovascular: There is a regular rate and rhythm. No murmur, rub or gallop is appreciated. Respiratory: Decreased lung sounds bilaterally. Audible wheeze noted on both inspiratory expiratory phase respirations are non-labored, breath sounds are equal. No stridor, rales, or rhonchi. Gastrointestinal: Soft, non-distended, non-tender abdomen without masses or organomegaly noted. There is no rebound or guarding present. No CVA tenderness. Bowel sounds are unremarkable. Musculoskeletal: Normal ROM, no tenderness. Strength 5/5. Sensation intact. Pulses equal bilaterally 2+. Neurological: A&O x 3. CN II-XII intact, There are no obvious motor or sensory deficits. Coordination appears grossly intact. Speech is normal. Skin: Skin is warm and dry and no rashes or lesions are noted. Psychiatric: Cooperative, appropriate mood & affect, normal judgment. - Labs CBC & Chem 7: 11/17/17 12:15 11/17/17 12:15 Labs: Abnormal Lab Results - Last 24 Hours (Table) 11/18/17 11/18/17 11/18/17 Range/Units 13:30 17:06 20:51 POC Glucose (mg/dL) 164 H 172 H (75-99) mg/dL Influenza Type A RNA Detected H (Not Detectd) 11/19/17 11/19/17 Range/Units 07:34 12:53 POC Glucose (mg/dL) 151 H 173 H (75-99) mg/dL Influenza Type A RNA (Not Detectd) - Imaging and Cardiology Chest x-ray: report reviewed, image reviewed (Findings as noted above) Assessment and Plan Assessment: Influenza A infection Acute COPD exacerbation Acute asthmatic bronchitis Nausea and vomiting and gagging likely related to above Sleep disorder breathing and sleep apnea patient lately has not been using CPAP machine needs to evaluate further to obtain a new CPAP Hypertension hypertensive cardiovascular disease Chronic low back pain and neck pain Major depression along with generalized anxiety disorder Significant obesity BMI over 35.9 Plan: IV steroids Bronchodilators Gentle rehydration Patient can be placed in simple antibiotics like doxycycline 100 mg by mouth 2 times a day Ma continue Tamiflu 75 mg oral twice a day Pain management as per pain services Evaluation and therapy for sleep disorder breathing and sleep apnea as outpatient setting Time with Patient: Greater than 30
--- NOTE | 2017-11-19 15:18 | P.PN ---
Subjective Progress Note Date: 11/19/17 Principal diagnosis: Patient presents with dyspnea consistent with acute exacerbation of chronic COPD. And back pain secondary to cough and old chronic back pain Patient is states he was sitting at home and developed significant cough and felt feverish patient presented to the emergency room where he was evaluated and treated for acute exacerbation chronic COPD Objective - Vital Signs Vital signs: Vital Signs Temp 96.5 F L 11/19/17 05:25 Pulse 81 11/19/17 11:28 Resp 16 11/19/17 11:28 BP 187/93 11/19/17 05:25 Pulse Ox 95 11/19/17 07:36 Intake & Output 11/18/17 11/19/17 11/19/17 18:59 06:59 18:59 Other: # Voids 2 1 - Exam General: [Patient awake, alert and oriented times 3. Patient in no acute distress.] HEENT: [PERRL. EOMI. No pharyngeal erythema or exudate.] Neck: [No adenopathy.] Cardiac: [Heart regular in rate and rhythm. No S3. No S4. No clicks, rubs. No murmur.] Lungs: Significant rhonchi bilaterally however patient has fair air exchange Abdomen: [No mass. No organomegaly. Bowel sounds presnt and normoactive in all 4 quadrants.] Extremes: [No edema no cyanosis no claudication normal pulses] : [] Musculoskeletal: [No joint erythema, edema or tenderness.] Skin: [No rash.] Neurologic: [No lateralizing deficits. CN II - XII grossly intact.] Lymphatic: [No adenopathy.] - Labs CBC & Chem 7: 11/17/17 12:15 11/17/17 12:15 Labs: Abnormal Lab Results - Last 24 Hours (Table) 11/18/17 11/18/17 11/19/17 Range/Units 17:06 20:51 07:34 POC Glucose (mg/dL) 164 H 172 H 151 H (75-99) mg/dL 11/19/17 Range/Units 12:53 POC Glucose (mg/dL) 173 H (75-99) mg/dL Assessment and Plan Assessment: Patient has known history of chronic COPD currently admitted with acute exacerbation of chronic COPD Patient has been started on IV antibiotics IV steroids An albuterol updrafts as well as DuoNeb treatments We'll continue to follow closely (1) COPD exacerbation Current Visit: Yes Status: Acute Code(s): J44.1 - CHRONIC OBSTRUCTIVE PULMONARY DISEASE W (ACUTE) EXACERBATION SNOMED Code(s): 107272855 Time with Patient: Greater than 30
[2017-11-19 17:33] LABS: Glucose,Whole Blood 116 mg/dL (75-99)
[2017-11-19] MEDS: DOXYCYCLINE 50 MG CAP PO SCH (20:10)
[2017-11-19 20:52] LABS: Glucose,Whole Blood 182 mg/dL (75-99)
[2017-11-20] MEDS: HYDROcodone/APAP 10-325MG 1 EACH TAB PO PRN ×4 (00:31→12:22)
[2017-11-20] MEDS: methylPREDNISolone SOD SUCCI 125 MG/2 ML VIAL IV SCH ×3 (00:32→13:26)
[2017-11-20] MEDS: OSELTAMIVIR 75 MG CAP PO SCH (06:10)
[2017-11-20 07:20] VITALS: BP 157/94; RESP 18; TEMP 97.9
[2017-11-20 07:40] LABS: Glucose,Whole Blood 136 mg/dL (75-99)
[2017-11-20] MEDS: IPRATROPIUM-ALBUTEROL 3 ML NEB INHALATION SCH ×2 (07:41→11:58)
--- NOTE | 2017-11-20 07:54 | P.PN ---
Subjective Progress Note Date: 11/20/17 Principal diagnosis: Acute COPD exacerbation, tracheobronchitis, obstructive sleep apnea and sleep disorder breathing, morbid obesity, hypertensive cardio vascular disease, chronic pain syndrome associated with C-spine and LS-spine disease 11/20/2017, patient seen eval reexamined during the rounds still congested short of breath continued to complain of back pain severity however has improved patient expresses wishes and desired to go home, patient expresses that his nebulizer machine is broken new prescription for nebulizer machine is provided, in case if patient discharged over the weekend can do so on oral antibiotics and Tamiflu to complete 5 days along with Medrol Dosepak with continuation of the nebulizer therapy 4 times a day and the CPAP use as tolerated with follow-up on outpatient setting 11/19/2017, patient seen and evaluated examined during the rounds cuff congestion shortness breath is still there patient remains on IV steroids and breathing treatments nasopharyngeal swab was positive for influenza A patient has been placed on Tamiflu for 5 days 61-year-old male well-known to me with history of chronic persistent asthma COPD and home oxygen patient has a significant history of sleep disorder breathing and sleep apnea he has not been feeling well for the last week with increased cough congestion shortness of breath 2-3 day prior to coming hospital has been having episodes of gagging coughing and has some nausea and vomiting as well with those problem patient came into emergency department for further evaluation and patient was noted to have significant audible wheezing has been placed on IV steroids antibiotics with further evaluation pending I was asked to evaluate this patient further Patient had a recent visit to emergency department came back again Patient admits not feeling any better. States still feeling nauseated. States had some vomiting. States that he has had a sore throat. States feels short of breath. Patient denies any new symptoms compared to yesterday. Patient denies any recent fever, chills, shortness of breath, chest pain, numbness or tingling , dysuria or hematuria, constipation or diarrhea, headaches or visual changes, or any other complaints. Objective - Vital Signs Vital signs: Vital Signs Temp 97.9 F 11/20/17 07:00 Pulse 80 11/20/17 07:41 Resp 18 11/20/17 07:00 BP 157/94 11/20/17 07:00 Pulse Ox 96 11/20/17 07:00 Intake & Output 11/19/17 11/20/17 11/20/17 18:59 06:59 18:59 Intake Total 1100 1280 Balance 1100 1280 Intake: Oral 1100 1280 Other: Voiding Method Toilet Urinal # Voids 2 2 - Exam General: The patient is awake and alert, mild respiratory distress, Eye: Pupils are equal, round and reactive to light, extra-ocular movements are intact. No nystagmus. There is normal conjunctiva bilaterally. No signs of icterus. Ears, nose, mouth and throat: There are moist mucous membranes and no oral lesions. Neck: The neck is supple, there is no tenderness or JVD. Cardiovascular: There is a regular rate and rhythm. No murmur, rub or gallop is appreciated. Respiratory: Decreased lung sounds bilaterally. Audible wheeze noted on both inspiratory expiratory phase respirations are non-labored, breath sounds are equal. No stridor, rales, or rhonchi. Gastrointestinal: Soft, non-distended, non-tender abdomen without masses or organomegaly noted. There is no rebound or guarding present. No CVA tenderness. Bowel sounds are unremarkable. Musculoskeletal: Normal ROM, no tenderness. Strength 5/5. Sensation intact. Pulses equal bilaterally 2+. Neurological: A&O x 3. CN II-XII intact, There are no obvious motor or sensory deficits. Coordination appears grossly intact. Speech is normal. Skin: Skin is warm and dry and no rashes or lesions are noted. Psychiatric: Cooperative, appropriate mood & affect, normal judgment. - Labs CBC & Chem 7: 11/17/17 12:15 11/17/17 12:15 Labs: Abnormal Lab Results - Last 24 Hours (Table) 11/19/17 11/19/17 11/19/17 Range/Units 12:53 17:30 20:44 POC Glucose (mg/dL) 173 H 116 H 182 H (75-99) mg/dL 11/20/17 Range/Units 07:27 POC Glucose (mg/dL) 136 H (75-99) mg/dL Assessment and Plan Assessment: Influenza A pneumonia Acute COPD exacerbation Acute asthmatic bronchitis Nausea and vomiting and gagging likely related to above Sleep disorder breathing and sleep apnea patient lately has not been using CPAP machine needs to evaluate further to obtain a new CPAP Hypertension hypertensive cardiovascular disease Chronic low back pain and neck pain Major depression along with generalized anxiety disorder Significant obesity BMI over 35.9 Plan: IV steroids Bronchodilators Gentle rehydration Patient can be placed in simple antibiotics like doxycycline 100 mg by mouth 2 times a day Ma continue Tamiflu 75 mg oral twice a day Pain management as per pain services Evaluation and therapy for sleep disorder breathing and sleep apnea as outpatient setting Overall patient at the time of discharge can be switched to Medrol Dosepak with follow-up in outpatient setting Time with Patient: Greater than 30
[2017-11-20] MEDS: LURASIDONE 40 MG TAB PO SCH (08:27)
[2017-11-20] MEDS: POLYETHYLENE GLYCOL 3350 17 GM POWD.PACK PO SCH ×2 (08:27→08:33)
[2017-11-20] MEDS: INSULIN ASPART 100 UNIT/ML 1 ML 10 ML VIAL SQ SCH ×2 (08:27→13:26)
[2017-11-20] MEDS: MONTELUKAST 10 MG TAB PO SCH (08:27)
[2017-11-20] MEDS: DESVENLAFAXINE SUCCINATE 50 MG TAB.ER.24H PO SCH (08:28)
[2017-11-20] MEDS: amLODIPine 5 MG TAB PO SCH (08:28)
[2017-11-20] MEDS: ALPRAZolam 1 MG TAB PO SCH (08:28)
[2017-11-20] MEDS: DOXYCYCLINE 50 MG CAP PO SCH (08:28)
[2017-11-20] MEDS: GABAPENTIN 100 MG CAP PO SCH (08:28)
[2017-11-20] MEDS: FAMOTIDINE 20 MG TAB PO SCH (08:28)
[2017-11-20] MEDS: hydrALAZINE HCL 25 MG TAB PO SCH (08:28)
[2017-11-20 12:08] LABS: Glucose,Whole Blood 142 mg/dL (75-99)
[2017-11-20 12:19] VITALS: PULSE 80
--- NOTE | 2017-11-20 13:19 | P.DS ---
Providers Date of admission: 11/17/17 15:36 Expected date of discharge: 11/20/17 Attending physician: Michael Nuñez Consults: 11/17/17 15:38 Consult Physician Stat Consulting Provider: Nehemiah Granados Consult Reason/Comments: COPD exacerbation Do you want consulting provider notified?: Yes 11/17/17 22:46 Consult Physician Routine Consulting Provider: George Trammell Consult Reason/Comments: Pain management Do you want consulting provider notified?: Yes, Notify in am Primary care physician: Michael Nuñez Hospital Course: 11/18/2017 per Jolanta Salter 61-year-old male who presented to the emergency room with a chief complaint of shortness of breath, cough, congestion, and nausea 2 days. Patient states he was seen in the emergency room on 11/16/2017 with similar symptoms. He was discharged home at that time. Patient states he presented to his PCP office but did not have an appointment and there was not a physician in the office at that time. The office staff recommended that the patient come to the ER for further evaluation. The patient has a history of COPD, hypertension, chronic back and neck pain, anxiety, depression, and bipolar disorder. The patient sees Dr. Marcus outpatient for pain management. He also has a history of obstructive sleep apnea and does not wear a CPAP at home because he states it is "very old" Chest x-ray: Some patchy posterior basilar opacity suggestive of atelectasis, mild. Bronchial cuffing could reflect bronchitis or asthma. Laboratory data: WBC 4.1. Hemoglobin 13.7. Platelet count 126. Sodium 145. Potassium 4.2. BUN 20. Creatinine 0.73. Glucose 178. Urinalysis reveals: 2+ glucose, otherwise unremarkable The patient was admitted to the hospital under the care of Dr. Nuñez. Consultations were placed to Dr. Granados, pulmonology and Dr Trammell, pain management. The patient was evaluated at the bedside with Dr. Nuñez. Patient is awake and alert sitting up in bed. Patient continues to complain of shortness of breath at rest and with exertion. Patient is on 2 L nasal cannula with oxygen saturations greater than 92%. Patient complains of frequent coughing. Patient also states he has been experiencing nausea. Patient reports one episode of emesis yesterday. Patient does complain of mild abdominal pain near epigastric region. Patient states he has been having normal bowel movements with at least 1 bowel movement daily. Denies episodes of constipation or diarrhea. 11/19/[address] Genaro Lawson Patient presents with dyspnea consistent with acute exacerbation of chronic COPD. And back pain secondary to cough and old chronic back pain Patient is states he was sitting at home and developed significant cough and felt feverish patient presented to the emergency room where he was evaluated and treated for acute exacerbation chronic COPD 11/20/2017: Patient much improved, lung sounds are now normal. He was cleared by pulmonology. He is felt stable for discharge at this point. Discharge diagnosis\\ Acute exacerbation of chronic obstructive pulmonary disease with acute bronchitis Nausea and vomiting with mild abdominal distention, etiology unclear Obstructive sleep apnea, patient noncompliant with CPAP, patient does not wear his CPAP at home because he states it is "very old". Patient was encouraged to follow-up with yeast pumper during last hospitalization to obtain new CPAP machine. Patient reports he has not had repeat sleep study because he owes money to the sleep center. Essential hypertension Chronic back and neck pain, sees Dr. Trammell outpatient for pain management Anxiety, unspecified Depression, unspecified Bipolar disorder Obesity: BMI 35.9 Patient Condition at Discharge: Stable Plan - Discharge Summary Discharge Rx Participant: No New Discharge Prescriptions: New Doxycycline [Vibramycin] 100 mg PO BID #14 cap hydrALAZINE HCL [Apresoline] 25 mg PO BID #60 tab Oseltamivir Phosphate 30 mg PO BID #6 capsule Continue Montelukast [Singulair] 10 mg PO DAILY amLODIPine [Norvasc] 5 mg PO QAM ALPRAZolam [Xanax] 1 mg PO TID Fluticasone/Vilanterol [Breo Ellipta 100-25 Mcg Inhaler] 1 puff INHALATION RT -DAILY Desvenlafaxine [Pristiq ER] 100 mg PO DAILY Umeclidinium [place] [Incruse Ellipta] 1 puff INHALATION RT-DAILY Hydrocodone/Acetaminophen [[place] 10-325] 1 tab PO QID PRN PRN Reason: Pain Albuterol Inhaler [Ventolin Hfa Inhaler] 2 puff INHALATION RT-QID PRN PRN Reason: Shortness Of Breath Famotidine [Pepcid] 20 mg PO DAILY Lurasidone HCl [Latuda] 20 mg PO DAILY Gabapentin [Neurontin] 100 mg PO TID #21 cap Azithromycin See Taper PO DAILY predniSONE 60 mg PO DAILY #12 tab Discharge Medication List Montelukast [Singulair] 10 mg PO DAILY 03/16/14 [History] amLODIPine [Norvasc] 5 mg PO QAM 07/05/14 [History] ALPRAZolam [Xanax] 1 mg PO TID 09/20/15 [History] Fluticasone/Vilanterol [Breo Ellipta 100-25 Mcg Inhaler] 1 puff INHALATION RT- DAILY 07/16/16 [History] Desvenlafaxine [Pristiq ER] 100 mg PO DAILY 09/23/16 [History] Umeclidinium [place] [Incruse Ellipta] 1 puff INHALATION RT-DAILY 10/08/16 [ History] Hydrocodone/Acetaminophen [[place] 10-325] 1 tab PO QID PRN 11/06/16 [History] Albuterol Inhaler [Ventolin Hfa Inhaler] 2 puff INHALATION RT-QID PRN 05/28/17 [ History] Famotidine [Pepcid] 20 mg PO DAILY 05/28/17 [History] Lurasidone HCl [Latuda] 20 mg PO DAILY 06/27/17 [History] Gabapentin [Neurontin] 100 mg PO TID #21 cap 07/07/17 [Rx] Azithromycin See Taper PO DAILY 11/17/17 [History] Doxycycline [Vibramycin] 100 mg PO BID #14 cap 11/20/17 [Rx] Oseltamivir Phosphate 30 mg PO BID #6 capsule 11/20/17 [Rx] hydrALAZINE HCL [Apresoline] 25 mg PO BID #60 tab 11/20/17 [Rx] predniSONE 60 mg PO DAILY #12 tab 11/20/17 [Rx] Follow up Appointment(s)/Referral(s): Michael Nuñez MD [Primary Care Provider] - 10 Days Genaro Lawson Jr, DO [Doctor of Osteopathic Medicine] - 1 Week Nehemiah Granados MD [STAFF PHYSICIAN] - 1 Week Discharge Disposition: HOME SELF-CARE
== END 2017-11-20 13:56 | disposition home or self-care (01) | DRG 191 ==
LOC: EC 11:12 → 4MS4W 15:36
PROVIDERS: ADMIT Family Medicine; ATTEND Family Medicine
DX: J44.1 Chronic obstructive pulmonary disease with (acute) exacerbation (principal); J98.11 Atelectasis; I11.9 Hypertensive heart disease without heart failure; E66.01 Morbid (severe) obesity due to excess calories; J44.0 Chronic obstructive pulmonary disease with (acute) lower respiratory infection; F31.9 Bipolar disorder, unspecified; F41.0 Panic disorder [episodic paroxysmal anxiety]; F41.1 Generalized anxiety disorder; G47.33 Obstructive sleep apnea (adult) (pediatric); M54.5 Low back pain; J11.1 Influenza due to unidentified influenza virus with other respiratory manifestations; J20.9 Acute bronchitis, unspecified; G89.4 Chronic pain syndrome; M54.2 Cervicalgia; R11.2 Nausea with vomiting, unspecified; R14.0 Abdominal distension (gaseous); K21.9 Gastro-esophageal reflux disease without esophagitis; Z68.35 Body mass index [BMI] 35.0-35.9, adult; Z79.891 Long term (current) use of opiate analgesic; Z79.899 Other long term (current) drug therapy; Z82.5 Family history of asthma and other chronic lower respiratory diseases; Z87.891 Personal history of nicotine dependence; Z91.19 Patient's noncompliance with other medical treatment and regimen; Z91.010 Allergy to peanuts
CPT/HCPCS: 36415; 71046; 71275; 74018; 80048; 80053; 81003; 82550; 82553; 82803; 83036; 83690; 83880; 84484; 85025; 85379; 85610; 85730; 87502; 93005; 93970; 94640; 94644; 94760; 96374; 96375; 99285

== ENCOUNTER 2017-12-26 04:21 | Emergency (ER) | payer MEDICARE, OTHER ==
[2017-12-26] MEDS ORDERED: ACETAMINOPHEN TAB 325 MG TAB PO STA (05:37)
[2017-12-26 05:53] LABS: Basophils % (A) 1 %; Eosinophils # (A) 0.1 k/uL (0-0.7); Eosinophils % (A) 2 %; HCT 44.7 % (39.0-53.0); HGB 15.4 gm/dL (13.0-17.5); Lymphocytes # (A) 0.5 k/uL (1.0-4.8); Lymphocytes % (A) 7 %; MCH 35.6 pg (25.0-35.0); MCHC 34.5 g/dL (31.0-37.0); MCV 103.1 fL (80.0-100.0); Macrocytosis Slight; Mean Platelet Volume 6.5; Monocytes # (A) 0.6 k/uL (0-1.0); Monocytes % (A) 9 %; Neutrophils # (A) 5.5 k/uL (1.3-7.7); Neutrophils % (A) 80 %; Platelet Count 142 k/uL (150-450); RBC 4.34 m/uL (4.30-5.90); RDW 14.4 % (11.5-15.5); WBC 6.9 k/uL (3.8-10.6)
[2017-12-26] MEDS ORDERED: ALBUTEROL NEBULIZED 2.5 MG/3 ML INHALATION STA (05:54)
[2017-12-26 05:57] LABS: Appearance,Urine Clear (Clear); Bilirubin,Urine Negative (Negative); Blood,Urine Negative (Negative); Color,Urine Yellow; Glucose,Urine (UA) Negative (Negative); Ketones,Urine Negative (Negative); Leukocyte Esterase,Urine Negative (Negative); Nitrite,Urine Negative (Negative); PH, Urine 5.5 (5.0-8.0); Protein,Urine Trace (Negative); Specific Gravity,Urine 1.022 (1.001-1.035); Urobilinogen,Urine <2.0 mg/dL (<2.0)
--- NOTE | 2017-12-26 05:58 | XR ---
EXAMINATION TYPE: XR chest 2V DATE OF EXAM: 12/26/2017 COMPARISON: 11/20/2017 HISTORY: Asthma COPD. Short of breath. TECHNIQUE: Frontal and lateral views of the chest are obtained. FINDINGS: There is no heart failure nor confluent pneumonic infiltrate. Heart size is normal. Diaphr agm is normal. There are chest leads. The thorax appears intact. IMPRESSION: Normal chest. No change.
[2017-12-26 06:03] LABS: ALT 148 U/L (21-72); AST 148 U/L (17-59); Albumin 4.1 g/dL (3.5-5.0); Alkaline Phosphatase 67 U/L (38-126); Anion Gap 11 mmol/L; Blood Urea Nitrogen 19 mg/dL (9-20); Calcium 8.9 mg/dL (8.4-10.2); Carbon Dioxide 29 mmol/L (22-30); Chloride 98 mmol/L (98-107); Glucose 110 mg/dL (74-99); Potassium 4.3 mmol/L (3.5-5.1); Sodium 138 mmol/L (137-145); Total Bilirubin 0.9 mg/dL (0.2-1.3); Total Protein 6.3 g/dL (6.3-8.2)
[2017-12-26 06:10] LABS: INR 1.1 (<1.2); Partial Thromboplastin Time 21.9 sec (22.0-30.0); Prothrombin Time 10.4 sec (9.0-12.0)
[2017-12-26 06:21] VITALS: RESP 18
--- NOTE | 2017-12-26 06:48 | ED ---
SOB HPI - General Chief Complaint: Shortness of Breath Stated Complaint: GREGG Time Seen by Provider: 12/26/17 05:37 Source: patient Mode of arrival: ambulatory Limitations: no limitations - History of Present Illness MD Complaint: shortness of breath, cough Onset/Timin -: days(s) Consistency: constant Improves With: nothing Worsens With: nothing Known History Of: COPD Associated Symptoms: denies other symptoms - Related Data Home Medications Medication Instructions Recorded Confirmed Montelukast [Singulair] 10 mg PO DAILY 03/16/14 12/31/17 amLODIPine [Norvasc] 5 mg PO QAM 07/05/14 12/31/17 ALPRAZolam [Xanax] 1 mg PO TID 09/20/15 12/31/17 Fluticasone/Vilanterol [Breo 1 puff INHALATION RT-DAILY 07/16/16 12/31/17 Ellipta 100-25 Mcg Inhaler] Desvenlafaxine [Pristiq ER] 100 mg PO DAILY 09/23/16 12/31/17 Umeclidinium [place] [Incruse 1 puff INHALATION RT-DAILY 10/08/16 12/31/17 Ellipta] Hydrocodone/Acetaminophen [[place] 1 tab PO QID PRN 11/06/16 12/31/17 10-325] Albuterol Inhaler [Ventolin Hfa 2 puff INHALATION RT-QID PRN 05/28/17 12/31/17 Inhaler] Famotidine [Pepcid] 20 mg PO DAILY 05/28/17 12/31/17 Lurasidone HCl [Latuda] 20 mg PO DAILY 06/27/17 12/31/17 Previous Rx's Medication Instructions Recorded Gabapentin [Neurontin] 100 mg PO TID #21 cap 07/07/17 hydrALAZINE HCL [Apresoline] 25 mg PO BID #60 tab 11/20/17 Benzocaine/Menthol Lozeng [Cepacol 1 each MUCOUS MEM Q1HR PRN #30 12/30/17 lozenge] lozenge Levofloxacin [Levaquin] 500 mg PO DAILY 7 Days #7 tab 12/30/17 guaiFENesin [Mucinex] 600 mg PO Q12HR PRN #30 tab 12/30/17 guaiFENesin-DM 100-10MG/5ML 10 ml PO Q6H PRN #30 cup 12/30/17 [Robitussin DM] predniSONE See Taper PO DIRECTED #30 tab 12/30/17 Allergies Allergy/AdvReac Type Severity Reaction Status Date / Time peanut Allergy alg testing Verified 12/31/17 10:26 pollen extracts Allergy Unknown Verified 12/31/17 10:26 DUST Allergy alg testing Uncoded 12/31/17 10:26 Review of Systems ROS Statement: Those systems with pertinent positive or pertinent negative responses have been documented in the HPI. ROS Other: All systems not noted in ROS Statement are negative. Constitutional: Denies: fever, chills Respiratory: Reports: cough, dyspnea, wheezes. Denies: hemoptysis, stridor Cardiovascular: Denies: chest pain, palpitations, edema Gastrointestinal: Denies: abdominal pain, vomiting, diarrhea Genitourinary: Denies: dysuria, hematuria Musculoskeletal: Denies: back pain Skin: Denies: rash Neurological: Denies: headache, weakness, numbness Past Medical History Past Medical History: Atrial Flutter, Asthma, Chest Pain / Angina, COPD, GERD/ Reflux, Hypertension, Osteoarthritis (OA), Pneumonia, Sleep Apnea/CPAP/BIPAP Additional Past Medical History / Comment(s): Chronic neck and back pain, shingles. History of Any Multi-Drug Resistant Organisms: None Reported Past Surgical History: Adenoidectomy, Bowel Resection, Breast Surgery, Cholecystectomy Additional Past Surgical History / Comment(s): REMOVAL OF UVULA. bowel resection for large polyps, colonoscopy with polypectomies, nasal surgery x 2, bronchoscopy with lung bx, pain clinic procedures. Past Anesthesia/Blood Transfusion Reactions: Previous Problems w/ Anesthesia, Motion Sickness Additional Past Anesthesia/Blood Transfusion Reaction / Comment(s): states "during procedure of checking something on my left lung,I turned blue and I was brought right back out anesthesia and proc was cancelled". clausterphobia Past Psychological History: Anxiety, Bipolar, Depression, Panic Disorder Smoking Status: Former smoker - Past Family History Mother Family Medical History: Asthma Additional Family Medical History / Comment(s): at age 62 Father Family Medical History: CVA/TIA Additional Family Medical History / Comment(s): at age 90 General Exam Limitations: no limitations General appearance: alert, in no apparent distress Head exam: Present: atraumatic, normocephalic Eye exam: Present: normal appearance. Absent: scleral icterus, conjunctival injection Respiratory exam: Present: wheezes, decreased breath sounds. Absent: respiratory distress, rales, rhonchi, stridor, accessory muscle use, prolonged expiratory Cardiovascular Exam: Present: normal rhythm, tachycardia, normal heart sounds. Absent: systolic murmur, diastolic murmur, rubs, gallop GI/Abdominal exam: Present: soft. Absent: distended, tenderness, guarding, rebound Extremities exam: Present: normal inspection, normal capillary refill. Absent: pedal edema, calf tenderness Back exam: Present: normal inspection, paraspinal tenderness Neurological exam: Present: alert Skin exam: Present: warm, dry, intact, normal color. Absent: rash Course Vital Signs 12/26/17 12/26/17 12/26/17 04:29 05:29 06:09 Temperature 101.7 F H 102.6 F H Pulse Rate 117 H 103 H 97 Respiratory 20 20 Rate Blood Pressure 153/83 145/72 O2 Sat by Pulse 92 L 95 Oximetry 12/26/17 12/26/17 06:20 07:16 Temperature 101.5 F H Pulse Rate 97 96 Respiratory 18 18 Rate Blood Pressure 170/74 131/71 O2 Sat by Pulse 96 93 L Oximetry Medical Decision Making - Medical Decision Making Patient is 62-year-old man with history of COPD who presents with symptoms consistent with exacerbation of same. He has had some improvement following treatment here and at this point appears stable to continue outpatient treatment. We discussed appropriate further care and follow-up as well as return parameters. - Lab Data Result diagrams: 12/26/17 05:35 12/26/17 05:35 Lab Results 12/26/17 12/26/17 12/26/17 Range/Units 05:35 05:35 05:35 WBC 6.9 (3.8-10.6) k/uL RBC 4.34 (4.30-5.90) m/uL Hgb 15.4 (13.0-17.5) gm/dL Hct 44.7 (39.0-53.0) % MCV 103.1 H (80.0-100.0) fL MCH 35.6 H (25.0-35.0) pg MCHC 34.5 (31.0-37.0) g/dL RDW 14.4 (11.5-15.5) % Plt Count 142 L (150-450) k/uL Neutrophils % 80 % Lymphocytes % 7 % Monocytes % 9 % Eosinophils % 2 % Basophils % 1 % Neutrophils # 5.5 (1.3-7.7) k/uL Lymphocytes # 0.5 L (1.0-4.8) k/uL Monocytes # 0.6 (0-1.0) k/uL Eosinophils # 0.1 (0-0.7) k/uL Basophils # 0.0 (0-0.2) k/uL Macrocytosis Slight PT (9.0-12.0) sec INR (<1.2) APTT (22.0-30.0) sec Sodium 138 (137-145) mmol/L Potassium 4.3 (3.5-5.1) mmol/L Chloride 98 (98-107) mmol/L Carbon Dioxide 29 (22-30) mmol/L Anion Gap 11 mmol/L BUN 19 (9-20) mg/dL Creatinine 0.90 (0.66-1.25) mg/dL Est GFR (CKD-EPI)AfAm >90 (>60 ml/min/1.73 sqM) Est GFR (CKD-EPI)NonAf >90 (>60 ml/min/1.73 sqM) Glucose 110 H (74-99) mg/dL Plasma Lactic Acid [place] 1.1 (0.7-2.0) mmol/L Calcium 8.9 (8.4-10.2) mg/dL Total Bilirubin 0.9 (0.2-1.3) mg/dL AST 148 H (17-59) U/L ALT 148 H (21-72) U/L Alkaline Phosphatase 67 (38-126) U/L Troponin I (0.000-0.034) ng/mL Total Protein 6.3 (6.3-8.2) g/dL Albumin 4.1 (3.5-5.0) g/dL Urine Color Urine Appearance (Clear) Urine pH (5.0-8.0) Ur Specific [place] (1.001-1.035) Urine Protein (Negative) Urine Glucose (UA) (Negative) Urine Ketones (Negative) Urine Blood (Negative) Urine Nitrite (Negative) Urine Bilirubin (Negative) Urine Urobilinogen (<2.0) mg/dL Ur Leukocyte Esterase (Negative) Influenza Type A RNA (Not Detectd) Influenza Type B (PCR) (Not Detectd) 12/26/17 12/26/17 12/26/17 Range/Units 05:35 05:35 05:35 WBC (3.8-10.6) k/uL RBC (4.30-5.90) m/uL Hgb (13.0-17.5) gm/dL Hct (39.0-53.0) % MCV (80.0-100.0) fL MCH (25.0-35.0) pg MCHC (31.0-37.0) g/dL RDW (11.5-15.5) % Plt Count (150-450) k/uL Neutrophils % % Lymphocytes % % Monocytes % % Eosinophils % % Basophils % % Neutrophils # (1.3-7.7) k/uL Lymphocytes # (1.0-4.8) k/uL Monocytes # (0-1.0) k/uL Eosinophils # (0-0.7) k/uL Basophils # (0-0.2) k/uL Macrocytosis PT 10.4 (9.0-12.0) sec INR 1.1 (<1.2) APTT 21.9 L (22.0-30.0) sec Sodium (137-145) mmol/L Potassium (3.5-5.1) mmol/L Chloride (98-107) mmol/L Carbon Dioxide (22-30) mmol/L Anion Gap mmol/L BUN (9-20) mg/dL Creatinine (0.66-1.25) mg/dL Est GFR (CKD-EPI)AfAm (>60 ml/min/1.73 sqM) Est GFR (CKD-EPI)NonAf (>60 ml/min/1.73 sqM) Glucose (74-99) mg/dL Plasma Lactic Acid [place] (0.7-2.0) mmol/L Calcium (8.4-10.2) mg/dL Total Bilirubin (0.2-1.3) mg/dL AST (17-59) U/L ALT (21-72) U/L Alkaline Phosphatase (38-126) U/L Troponin I 0.020 (0.000-0.034) ng/mL Total Protein (6.3-8.2) g/dL Albumin (3.5-5.0) g/dL Urine Color Yellow Urine Appearance Clear (Clear) Urine pH 5.5 (5.0-8.0) Ur Specific [place] 1.022 (1.001-1.035) Urine Protein Trace H (Negative) Urine Glucose (UA) Negative (Negative) Urine Ketones Negative (Negative) Urine Blood Negative (Negative) Urine Nitrite Negative (Negative) Urine Bilirubin Negative (Negative) Urine Urobilinogen <2.0 (<2.0) mg/dL Ur Leukocyte Esterase Negative (Negative) Influenza Type A RNA (Not Detectd) Influenza Type B (PCR) (Not Detectd) 12/26/17 Range/Units 05:35 WBC (3.8-10.6) k/uL RBC (4.30-5.90) m/uL Hgb (13.0-17.5) gm/dL Hct (39.0-53.0) % MCV (80.0-100.0) fL MCH (25.0-35.0) pg MCHC (31.0-37.0) g/dL RDW (11.5-15.5) % Plt Count (150-450) k/uL Neutrophils % % Lymphocytes % % Monocytes % % Eosinophils % % Basophils % % Neutrophils # (1.3-7.7) k/uL Lymphocytes # (1.0-4.8) k/uL Monocytes # (0-1.0) k/uL Eosinophils # (0-0.7) k/uL Basophils # (0-0.2) k/uL Macrocytosis PT (9.0-12.0) sec INR (<1.2) APTT (22.0-30.0) sec Sodium (137-145) mmol/L Potassium (3.5-5.1) mmol/L Chloride (98-107) mmol/L Carbon Dioxide (22-30) mmol/L Anion Gap mmol/L BUN (9-20) mg/dL Creatinine (0.66-1.25) mg/dL Est GFR (CKD-EPI)AfAm (>60 ml/min/1.73 sqM) Est GFR (CKD-EPI)NonAf (>60 ml/min/1.73 sqM) Glucose (74-99) mg/dL Plasma Lactic Acid [place] (0.7-2.0) mmol/L Calcium (8.4-10.2) mg/dL Total Bilirubin (0.2-1.3) mg/dL AST (17-59) U/L ALT (21-72) U/L Alkaline Phosphatase (38-126) U/L Troponin I (0.000-0.034) ng/mL Total Protein (6.3-8.2) g/dL Albumin (3.5-5.0) g/dL Urine Color Urine Appearance (Clear) Urine pH (5.0-8.0) Ur Specific [place] (1.001-1.035) Urine Protein (Negative) Urine Glucose (UA) (Negative) Urine Ketones (Negative) Urine Blood (Negative) Urine Nitrite (Negative) Urine Bilirubin (Negative) Urine Urobilinogen (<2.0) mg/dL Ur Leukocyte Esterase (Negative) Influenza Type A RNA Not Detected (Not Detectd) Influenza Type B (PCR) Not Detected (Not Detectd) - EKG Data -: EKG Interpreted by [place] EKG shows normal: sinus rhythm, axis (Normal), intervals (Normal), QRS complexes (Normal) Rate: tachycardia (Rate 106 bpm) Interpretation: nonspecific ST-T wave changes Disposition Clinical Impression: Acute bronchitis Disposition: HOME SELF-CARE Condition: Fair Instructions: Acute Bronchitis (ED) Is patient prescribed a controlled substance at d/c from ED?: No Referrals: Michael Nuñez MD [Primary Care Provider] - 1-2 days
[2017-12-26] MEDS ORDERED: MORPHINE SULFATE 4 MG/ML SYRINGE IV STA (06:53)
[2017-12-26] MEDS ORDERED: AZITHROMYCIN 500 MG TAB PO STA (06:59)
[2017-12-26 07:17] VITALS: BP 131/71; PULSE 96; TEMP 101.5
== END 2017-12-26 07:19 | disposition home or self-care (01) ==
LOC: EC 04:21
DX: J44.0 Chronic obstructive pulmonary disease with (acute) lower respiratory infection (principal); J20.9 Acute bronchitis, unspecified; J44.9 Chronic obstructive pulmonary disease, unspecified; R00.0 Tachycardia, unspecified; K21.9 Gastro-esophageal reflux disease without esophagitis; I10 Essential (primary) hypertension; F31.9 Bipolar disorder, unspecified; F41.0 Panic disorder [episodic paroxysmal anxiety]; Z91.010 Allergy to peanuts; Z91.09 Other allergy status, other than to drugs and biological substances; Z79.51 Long term (current) use of inhaled steroids; Z79.899 Other long term (current) drug therapy; Z87.891 Personal history of nicotine dependence
CPT/HCPCS: 99285; 96374; 36415; 94640; 93005; 80053; 83605; 84484; 85025; 85610; 85730; 81003; 87040; 87086; 87077; 87186; 87502; 71046; J2270

== ENCOUNTER 2017-12-27 09:46 | Inpatient (IN) | payer MEDICARE ==
[2017-12-27] MEDS ORDERED: IPRATROPIUM-ALBUTEROL 3 ML NEB INHALATION STA (10:25)
[2017-12-27] MEDS ORDERED: ACETAMINOPHEN TAB 500 MG TAB PO STA (10:25)
--- NOTE | 2017-12-27 10:28 | ED ---
General Adult HPI - General Chief complaint: Shortness of Breath Stated complaint: Difficulty Breathing Time Seen by Provider: 12/27/17 09:56 Source: patient, RN notes reviewed Mode of arrival: wheelchair Limitations: no limitations - History of Present Illness Initial comments: Patient is a pleasant [age]-year-old male presenting to the emergency department with difficulty in breathing. Patient does have history of COPD. Patient was in the emergency department several days ago however got better. Patient was unaware of any fever today. Patient woke up with shortness of breath. Patient has had a cough for several days with productive yellow sputum. No chest pain. Patient has not taken his medicine this morning. - Related Data Home Medications Medication Instructions Recorded Confirmed Montelukast [Singulair] 10 mg PO DAILY 03/16/14 12/26/17 amLODIPine [Norvasc] 5 mg PO QAM 07/05/14 12/26/17 ALPRAZolam [Xanax] 1 mg PO TID 09/20/15 12/26/17 Fluticasone/Vilanterol [Breo 1 puff INHALATION RT-DAILY 07/16/16 12/26/17 Ellipta 100-25 Mcg Inhaler] Desvenlafaxine [Pristiq ER] 100 mg PO DAILY 09/23/16 12/26/17 Umeclidinium [place] [Incruse 1 puff INHALATION RT-DAILY 10/08/16 12/26/17 Ellipta] Hydrocodone/Acetaminophen [[place] 1 tab PO QID PRN 11/06/16 12/26/17 10-325] Albuterol Inhaler [Ventolin Hfa 2 puff INHALATION RT-QID PRN 05/28/17 12/26/17 Inhaler] Famotidine [Pepcid] 20 mg PO DAILY 05/28/17 12/26/17 Lurasidone HCl [Latuda] 20 mg PO DAILY 06/27/17 12/26/17 Azithromycin See Taper PO DAILY 11/17/17 12/26/17 Previous Rx's Medication Instructions Recorded Gabapentin [Neurontin] 100 mg PO TID #21 cap 07/07/17 Doxycycline [Vibramycin] 100 mg PO BID #14 cap 11/20/17 Oseltamivir Phosphate 30 mg PO BID #6 capsule 11/20/17 hydrALAZINE HCL [Apresoline] 25 mg PO BID #60 tab 11/20/17 predniSONE 60 mg PO DAILY #12 tab 11/20/17 Azithromycin [Zithromax Z-pack] 250 mg PO DIRECTED #6 tab 12/26/17 Allergies Allergy/AdvReac Type Severity Reaction Status Date / Time peanut Allergy alg testing Verified 12/27/17 09:54 pollen extracts Allergy Unknown Verified 12/27/17 09:54 DUST Allergy alg testing Uncoded 12/27/17 09:54 Review of Systems ROS Statement: Those systems with pertinent positive or pertinent negative responses have been documented in the HPI. ROS Other: All systems not noted in ROS Statement are negative. Constitutional: Denies: fever Eyes: Denies: eye pain ENT: Denies: ear pain Respiratory: Reports: cough, dyspnea Cardiovascular: Denies: chest pain Endocrine: Reports: fatigue Gastrointestinal: Denies: abdominal pain Genitourinary: Denies: dysuria Musculoskeletal: Reports: back pain (Chronic and unchanged) Skin: Denies: lesions Neurological: Denies: weakness Past Medical History Past Medical History: Atrial Flutter, Asthma, Chest Pain / Angina, COPD, GERD/ Reflux, Hypertension, Osteoarthritis (OA), Pneumonia, Sleep Apnea/CPAP/BIPAP Additional Past Medical History / Comment(s): Chronic neck and back pain, shingles. History of Any Multi-Drug Resistant Organisms: None Reported Past Surgical History: Adenoidectomy, Bowel Resection, Breast Surgery, Cholecystectomy Additional Past Surgical History / Comment(s): REMOVAL OF UVULA. bowel resection for large polyps, colonoscopy with polypectomies, nasal surgery x 2, bronchoscopy with lung bx, pain clinic procedures. Past Anesthesia/Blood Transfusion Reactions: Previous Problems w/ Anesthesia, Motion Sickness Additional Past Anesthesia/Blood Transfusion Reaction / Comment(s): states "during procedure of checking something on my left lung,I turned blue and I was brought right back out anesthesia and proc was cancelled". clausterphobia Past Psychological History: Anxiety, Bipolar, Depression, Panic Disorder Smoking Status: Former smoker - Past Family History Mother Family Medical History: Asthma Additional Family Medical History / Comment(s): at age 62 Father Family Medical History: CVA/TIA Additional Family Medical History / Comment(s): at age 90 General Exam Limitations: no limitations General appearance: alert, in no apparent distress Head exam: Present: atraumatic Eye exam: Present: normal appearance, PERRL ENT exam: Present: normal exam, normal oropharynx Neck exam: Present: normal inspection Respiratory exam: Present: wheezes Cardiovascular Exam: Present: regular rate, normal rhythm GI/Abdominal exam: Present: soft. Absent: tenderness Extremities exam: Present: normal inspection. Absent: pedal edema, calf tenderness Neurological exam: Present: alert Psychiatric exam: Present: normal affect, normal mood Skin exam: Present: other (Macular rash of the trunk anterior and posterior which patient states is chronic and unchanged.) Course Vital Signs 12/27/17 12/27/17 12/27/17 09:52 10:40 10:47 Temperature 102.9 F H Pulse Rate 111 H 97 96 Respiratory 20 Rate Blood Pressure 124/88 O2 Sat by Pulse 89 L Oximetry 12/27/17 12/27/17 10:59 11:50 Temperature 100 F H Pulse Rate 90 Respiratory 18 18 Rate Blood Pressure 153/78 O2 Sat by Pulse 95 Oximetry EKG Findings - EKG Comments: EKG Findings:: Sinus tachycardia 103. ID 128. QRS 88. QT 322. QTC 421. Normal axis. Normal QRS. No acute ST change. Medical Decision Making - Medical Decision Making Patient reevaluated and resting comfortably in bed. Lung sounds are somewhat improved however significant wheezing continues. Patient updated on results and plan. Case was discussed in detail with Dr. Kerr, who will admit for Dr. Nuñez. He does request consult for Dr. solis and dr. sotelo. Patient requests a pain shot for his chronic pain. Dr. Kerr states patient is only to receive Mcdonald at this time and further medication and is to be directed through his pain management doctor. - Lab Data Result diagrams: 12/27/17 10:35 12/27/17 10:35 Lab Results 12/27/17 12/27/17 12/27/17 Range/Units 10:35 10:35 10:35 WBC 4.9 (3.8-10.6) k/uL RBC 4.22 L (4.30-5.90) m/uL Hgb 14.7 (13.0-17.5) gm/dL Hct 43.7 (39.0-53.0) % MCV 103.6 H (80.0-100.0) fL MCH 34.7 (25.0-35.0) pg MCHC 33.5 (31.0-37.0) g/dL RDW 14.9 (11.5-15.5) % Plt Count 140 L (150-450) k/uL Neutrophils % 82 % Lymphocytes % 7 % Monocytes % 8 % Eosinophils % 1 % Basophils % 0 % Neutrophils # 4.1 (1.3-7.7) k/uL Lymphocytes # 0.3 L (1.0-4.8) k/uL Monocytes # 0.4 (0-1.0) k/uL Eosinophils # 0.1 (0-0.7) k/uL Basophils # 0.0 (0-0.2) k/uL Macrocytosis Slight PT (9.0-12.0) sec INR (<1.2) APTT (22.0-30.0) sec Sodium 143 (137-145) mmol/L Potassium 4.2 (3.5-5.1) mmol/L Chloride 102 (98-107) mmol/L Carbon Dioxide 28 (22-30) mmol/L Anion Gap 13 mmol/L BUN 20 (9-20) mg/dL Creatinine 0.80 (0.66-1.25) mg/dL Est GFR (CKD-EPI)AfAm >90 (>60 ml/min/1.73 sqM) Est GFR (CKD-EPI)NonAf >90 (>60 ml/min/1.73 sqM) Glucose 114 H (74-99) mg/dL Plasma Lactic Acid [place] 1.1 (0.7-2.0) mmol/L Calcium 8.6 (8.4-10.2) mg/dL Total Bilirubin 0.6 (0.2-1.3) mg/dL AST 104 H (17-59) U/L ALT 131 H (21-72) U/L Alkaline Phosphatase 60 (38-126) U/L Total Protein 5.8 L (6.3-8.2) g/dL Albumin 3.7 (3.5-5.0) g/dL Urine Color Urine Appearance (Clear) Urine pH (5.0-8.0) Ur Specific [place] (1.001-1.035) Urine Protein (Negative) Urine Glucose (UA) (Negative) Urine Ketones (Negative) Urine Blood (Negative) Urine Nitrite (Negative) Urine Bilirubin (Negative) Urine Urobilinogen (<2.0) mg/dL Ur Leukocyte Esterase (Negative) Urine RBC (0-5) /hpf Urine WBC (0-5) /hpf Urine Mucus (None) /hpf 12/27/17 12/27/17 Range/Units 10:35 10:35 WBC (3.8-10.6) k/uL RBC (4.30-5.90) m/uL Hgb (13.0-17.5) gm/dL Hct (39.0-53.0) % MCV (80.0-100.0) fL MCH (25.0-35.0) pg MCHC (31.0-37.0) g/dL RDW (11.5-15.5) % Plt Count (150-450) k/uL Neutrophils % % Lymphocytes % % Monocytes % % Eosinophils % % Basophils % % Neutrophils # (1.3-7.7) k/uL Lymphocytes # (1.0-4.8) k/uL Monocytes # (0-1.0) k/uL Eosinophils # (0-0.7) k/uL Basophils # (0-0.2) k/uL Macrocytosis PT 10.5 (9.0-12.0) sec INR 1.1 (<1.2) APTT 22.4 (22.0-30.0) sec Sodium (137-145) mmol/L Potassium (3.5-5.1) mmol/L Chloride (98-107) mmol/L Carbon Dioxide (22-30) mmol/L Anion Gap mmol/L BUN (9-20) mg/dL Creatinine (0.66-1.25) mg/dL Est GFR (CKD-EPI)AfAm (>60 ml/min/1.73 sqM) Est GFR (CKD-EPI)NonAf (>60 ml/min/1.73 sqM) Glucose (74-99) mg/dL Plasma Lactic Acid [place] (0.7-2.0) mmol/L Calcium (8.4-10.2) mg/dL Total Bilirubin (0.2-1.3) mg/dL AST (17-59) U/L ALT (21-72) U/L Alkaline Phosphatase (38-126) U/L Total Protein (6.3-8.2) g/dL Albumin (3.5-5.0) g/dL Urine Color Yellow Urine Appearance Clear (Clear) Urine pH 5.5 (5.0-8.0) Ur Specific [place] 1.030 (1.001-1.035) Urine Protein 1+ H (Negative) Urine Glucose (UA) Negative (Negative) Urine Ketones Negative (Negative) Urine Blood Negative (Negative) Urine Nitrite Negative (Negative) Urine Bilirubin Negative (Negative) Urine Urobilinogen 2.0 (<2.0) mg/dL Ur Leukocyte Esterase Negative (Negative) Urine RBC 2 (0-5) /hpf Urine WBC 2 (0-5) /hpf Urine Mucus Many H (None) /hpf - Radiology Data Radiology results: image reviewed (Chest x-ray shows no acute process) Disposition Clinical Impression: Acute exacerbation of chronic obstructive airways disease Disposition: ADMITTED IP TO THIS HOSP Is patient prescribed a controlled substance at d/c from ED?: No Referrals: Michael Nuñez MD [Primary Care Provider] - 1-2 days Decision Time: 14:09
[2017-12-27] MEDS: SODIUM CHLORIDE 0.9% 500 ML IV SCH (10:40)
[2017-12-27 10:54] LABS: Basophils % (A) 0 %; Eosinophils # (A) 0.1 k/uL (0-0.7); Eosinophils % (A) 1 %; HCT 43.7 % (39.0-53.0); HGB 14.7 gm/dL (13.0-17.5); Lymphocytes # (A) 0.3 k/uL (1.0-4.8); Lymphocytes % (A) 7 %; MCH 34.7 pg (25.0-35.0); MCHC 33.5 g/dL (31.0-37.0); MCV 103.6 fL (80.0-100.0); Macrocytosis Slight; Monocytes # (A) 0.4 k/uL (0-1.0); Monocytes % (A) 8 %; Neutrophils # (A) 4.1 k/uL (1.3-7.7); Neutrophils % (A) 82 %; Platelet Count 140 k/uL (150-450); RBC 4.22 m/uL (4.30-5.90); RDW 14.9 % (11.5-15.5); WBC 4.9 k/uL (3.8-10.6)
[2017-12-27 10:57] LABS: Appearance,Urine Clear (Clear); Bilirubin,Urine Negative (Negative); Blood,Urine Negative (Negative); Color,Urine Yellow; Glucose,Urine (UA) Negative (Negative); Ketones,Urine Negative (Negative); Leukocyte Esterase,Urine Negative (Negative); Mucus,Urine Many /hpf; Nitrite,Urine Negative (Negative); PH, Urine 5.5 (5.0-8.0); Protein,Urine 1+ (Negative); RBC,Urine 2 /hpf (0-5); WBC,Urine 2 /hpf (0-5)
[2017-12-27 11:03] LABS: INR 1.1 (<1.2); Partial Thromboplastin Time 22.4 sec (22.0-30.0); Prothrombin Time 10.5 sec (9.0-12.0)
[2017-12-27 11:15] LABS: ALT 131 U/L (21-72); AST 104 U/L (17-59); Albumin 3.7 g/dL (3.5-5.0); Alkaline Phosphatase 60 U/L (38-126); Anion Gap 13 mmol/L; Blood Urea Nitrogen 20 mg/dL (9-20); Calcium 8.6 mg/dL (8.4-10.2); Carbon Dioxide 28 mmol/L (22-30); Chloride 102 mmol/L (98-107); Glucose 114 mg/dL (74-99); Potassium 4.2 mmol/L (3.5-5.1); Sodium 143 mmol/L (137-145); Total Bilirubin 0.6 mg/dL (0.2-1.3); Total Protein 5.8 g/dL (6.3-8.2)
[2017-12-27] MEDS ORDERED: HYDROcodone/APAP 10-325MG 1 EACH TAB PO ONE (11:49)
--- NOTE | 2017-12-27 11:54 | XR ---
EXAMINATION TYPE: XR chest 2V DATE OF EXAM: 12/27/2017 COMPARISON: 12/26/2017 HISTORY: Shortness of breath TECHNIQUE: Frontal and lateral views of the chest are obtained. FINDINGS: There is cardiomegaly and bibasilar subsegmental atelectasis. No focal consolidation, pleu ral effusion or pneumothorax. Low lung volumes. Crowding of the pulmonary vasculature and osseous str uctures are intact. IMPRESSION: Minimal bibasilar subsegmental atelectasis with no focal consolidation to suggest pneumo abdirahman.
[2017-12-27] MEDS ORDERED: methylPREDNISolone SOD SUCCI 125 MG/2 ML VIAL IV STA (14:09)
[2017-12-27] MEDS: IPRATROPIUM-ALBUTEROL 3 ML NEB INHALATION SCH ×2 (15:54→20:11)
[2017-12-27 16:12] VITALS: BMI 35.2
[2017-12-27] MEDS: methylPREDNISolone SOD SUCCI 125 MG/2 ML VIAL IV SCH ×2 (18:16→23:28)
[2017-12-27] MEDS: HYDROcodone/APAP 10-325MG 1 EACH TAB PO PRN ×2 (18:17→23:29)
[2017-12-27 20:01] LABS: Glucose,Whole Blood 187 mg/dL (75-99)
[2017-12-27] MEDS: ALPRAZolam 1 MG TAB PO PRN (21:02)
[2017-12-27] MEDS: INSULIN ASPART 100 UNIT/ML 1 ML 10 ML VIAL SQ SCH (21:02)
[2017-12-27] MEDS: hydrALAZINE HCL 25 MG TAB PO SCH (22:40)
[2017-12-27] MEDS: GABAPENTIN 100 MG CAP PO SCH (22:40)
[2017-12-28 00:48] LABS: Glucose,Whole Blood 202 mg/dL (75-99)
[2017-12-28] MEDS: IPRATROPIUM-ALBUTEROL 3 ML NEB INHALATION PRN ×2 (01:02→05:28)
[2017-12-28] MEDS: methylPREDNISolone SOD SUCCI 125 MG/2 ML VIAL IV SCH ×4 (05:15→23:15)
[2017-12-28] MEDS: HYDROcodone/APAP 10-325MG 1 EACH TAB PO PRN (05:15)
--- NOTE | 2017-12-28 06:22 | P.CONS ---
History of Present Illness - Chief Complaint Medical debility and chronic pain syndrome - History of Present Illness I had the opportunity to see patient for consultation with regard to medical debility and chronic pain syndrome. He was admitted to [facility] December 27 with shortness of breath. Known COPD and COPD exacerbation. Chest x-ray demonstrates congestion. I am now seeing him because of chronic pain in the back as well as the chest. He reports pain relief with morphine but he also reports problems with shortness of breath. He previously been on a regimen of [place] 10 4 times a day. At this time, we discussed options or plan for Percocet 10 every 4 when necessary. Review of Systems Review of systems: ENT: Denies sneezes or discharge. Eyes: Denies discharge or photophobia. Cardiac: Denies chest pain or palpitation. Pulmonary: Mild to moderate shortness of breath. Gastrointestinal: Denies nausea, emesis, constipation, diarrhea. Genitourinary: Denies discharge or frequency. Musculoskeletal: Back pain and chest discomfort. Neurologic: Denies motor or sensory change. Endocrine: Denies shakes or sweats. Oncology: Denies cancers. Dermatologic: Denies rash, itching, pruritus. ALLERGY/immunology: Denies sneezes, rashes. Past Medical History Past Medical History: Atrial Flutter, Asthma, Chest Pain / Angina, COPD, GERD/ Reflux, Hypertension, Osteoarthritis (OA), Pneumonia, Sleep Apnea/CPAP/BIPAP Additional Past Medical History / Comment(s): Chronic neck and back pain, shingles. History of Any Multi-Drug Resistant Organisms: None Reported Past Surgical History: Adenoidectomy, Bowel Resection, Breast Surgery, Cholecystectomy Additional Past Surgical History / Comment(s): REMOVAL OF UVULA. bowel resection for large polyps, colonoscopy with polypectomies, nasal surgery x 2, bronchoscopy with lung bx, pain clinic procedures. Past Anesthesia/Blood Transfusion Reactions: Previous Problems w/ Anesthesia, Motion Sickness Additional Past Anesthesia/Blood Transfusion Reaction / Comm: states "during procedure of checking something on my left lung,I turned blue and I was brought right back out anesthesia and proc was cancelled". clausterphobia Past Psychological History: Anxiety, Bipolar, Depression, Panic Disorder Additional Psychological History / Comment(s): Pt resides alone in an apartment. 10 steps. no home care services. He has a nebulizer. Smoking Status: Former smoker Past Alcohol Use History: Occasional Additional Past Alcohol Use History / Comment(s): started smoking age 19(1974) smoked 1 ppd and quit 1987 Past Drug Use History: None Reported - Past Family History Mother Family Medical History: Asthma Additional Family Medical History / Comment(s): at age 62 Father Family Medical History: CVA/TIA Additional Family Medical History / Comment(s): at age 90 Medications and Allergies Home Medications Medication Instructions Recorded Confirmed Type Montelukast [Singulair] 10 mg PO DAILY 03/16/14 12/27/17 History amLODIPine [Norvasc] 5 mg PO QAM 07/05/14 12/27/17 History ALPRAZolam [Xanax] 1 mg PO TID 09/20/15 12/27/17 History Fluticasone/Vilanterol [Breo 1 puff INHALATION RT-DAILY 07/16/16 12/27/17 History Ellipta 100-25 Mcg Inhaler] Desvenlafaxine [Pristiq ER] 100 mg PO DAILY 09/23/16 12/27/17 History Umeclidinium [place] [Incruse 1 puff INHALATION RT-DAILY 10/08/16 12/27/17 History Ellipta] Hydrocodone/Acetaminophen [[place] 1 tab PO QID PRN 11/06/16 12/27/17 History 10-325] Albuterol Inhaler [Ventolin Hfa 2 puff INHALATION RT-QID PRN 05/28/17 12/27/17 History Inhaler] Famotidine [Pepcid] 20 mg PO DAILY 05/28/17 12/27/17 History Lurasidone HCl [Latuda] 20 mg PO DAILY 06/27/17 12/27/17 History Gabapentin [Neurontin] 100 mg PO TID #21 cap 07/07/17 12/27/17 Rx hydrALAZINE HCL [Apresoline] 25 mg PO BID #60 tab 11/20/17 12/27/17 Rx Azithromycin [Zithromax Z-pack] See Taper PO DAILY 12/27/17 12/27/17 History predniSONE 40 mg PO DAILY 12/27/17 12/27/17 History Allergies Allergy/AdvReac Type Severity Reaction Status Date / Time peanut Allergy alg testing Verified 12/27/17 14:52 pollen extracts Allergy Unknown Verified 12/27/17 14:52 DUST Allergy alg testing Uncoded 12/27/17 09:54 Physical Exam Vitals: Vital Signs Temp Pulse Pulse Resp BP BP Pulse Ox 12/28/17 05:55 98 12/28/17 05:47 99 12/28/17 05:40 80 12/28/17 05:33 99 12/28/17 05:32 72 12/28/17 05:30 97.8 F 72 22 145/78 99 12/28/17 01:20 92 L 12/28/17 01:19 94 12/28/17 01:02 86 12/27/17 20:20 98.3 F 70 18 122/69 95 12/27/17 20:13 94 16 12/27/17 16:06 96 12/27/17 15:55 88 12/27/17 14:30 99.1 F 84 18 145/86 95 12/27/17 14:28 98.5 F 81 18 120/80 92 L 12/27/17 11:50 100 F H 90 18 153/78 95 12/27/17 10:59 18 12/27/17 10:47 96 12/27/17 10:40 97 12/27/17 09:52 102.9 F H 111 H 20 124/88 89 L Intake and Output 12/27/17 12/27/17 12/28/17 14:59 22:59 06:59 Intake Total 600 Balance 600 Intake: Oral 600 Other: Voiding Method Urinal Urinal # Voids 2 1 Weight 111.13 kg Skin: Good color, texture, turgor. General: Obese build and uncomfortable appearance. Head: Normocephalic, atraumatic. Eyes: Symmetric. Pupils equal round. Ears: Symmetric. Hearing within normal limits. Mouth: Clear. Neck: Supple. Carotid without bruit. Cardiac: Regular rate and rhythm. Lungs: Clear anteriorly and posteriorly. Abdomen: Soft active nontender. Extremities: Normal tone. Neurological: Mental status: Alert, cooperative, pleasant. Cranial nerves: Symmetric facial tone and trapezius. Motor: Normal strength and isolation all 4 limbs. Sensation: Intact throughout. DTRs: Symmetric and equal throughout. Mobility: Sits and stands without assistance or verbal cueing or loss of balance. Results CBC & Chem 7: 12/27/17 10:35 12/27/17 10:35 Labs: Abnormal Lab Results - Last 24 Hours (Table) 12/27/17 12/27/17 12/27/17 Range/Units 10:35 10:35 10:35 RBC 4.22 L (4.30-5.90) m/uL MCV 103.6 H (80.0-100.0) fL Plt Count 140 L (150-450) k/uL Lymphocytes # 0.3 L (1.0-4.8) k/uL Glucose 114 H (74-99) mg/dL POC Glucose (mg/dL) (75-99) mg/dL AST 104 H (17-59) U/L ALT 131 H (21-72) U/L Total Protein 5.8 L (6.3-8.2) g/dL Urine Protein 1+ H (Negative) Urine Mucus Many H (None) /hpf 12/27/17 12/28/17 Range/Units 19:59 00:46 RBC (4.30-5.90) m/uL MCV (80.0-100.0) fL Plt Count (150-450) k/uL Lymphocytes # (1.0-4.8) k/uL Glucose (74-99) mg/dL POC Glucose (mg/dL) 187 H 202 H (75-99) mg/dL AST (17-59) U/L ALT (21-72) U/L Total Protein (6.3-8.2) g/dL Urine Protein (Negative) Urine Mucus (None) /hpf Microbiology - Last 24 Hours (Table) 12/27/17 10:35 Urine Culture - Preliminary Urine,Clean Catch Chest x-ray: report reviewed (Chest x-ray with pulmonary congestion.) Assessment and Plan (1) Acute exacerbation of chronic obstructive airways disease Current Visit: Yes Status: Acute Code(s): J44.1 - CHRONIC OBSTRUCTIVE PULMONARY DISEASE W (ACUTE) EXACERBATION SNOMED Code(s): 429876470 Plan: Impression: 1. Medical debility. 2. COPD exacerbation. 3. Chronic pain syndrome with chronic back pain. Comments and plan: At this time I discussed pain medication options and we have elected Percocet thank you for. Note that he has pain medications for home and will not require prescription upon discharge. He also reports to me that he is appointment set for this coming Wednesday and advised not to miss the appointment. I will also had physical therapy at this time to prevent significant physical deconditioning.
[2017-12-28 07:13] LABS: Glucose,Whole Blood 153 mg/dL (75-99)
[2017-12-28] MEDS: amLODIPine 5 MG TAB PO SCH (07:39)
[2017-12-28] MEDS: DESVENLAFAXINE SUCCINATE 50 MG TAB.ER.24H PO SCH (07:39)
[2017-12-28] MEDS: MONTELUKAST 10 MG TAB PO SCH (07:40)
[2017-12-28] MEDS: GABAPENTIN 100 MG CAP PO SCH ×3 (07:40→20:37)
[2017-12-28] MEDS: INSULIN ASPART 100 UNIT/ML 1 ML 10 ML VIAL SQ SCH ×4 (07:40→20:37)
[2017-12-28] MEDS: LURASIDONE 40 MG TAB PO SCH (07:40)
[2017-12-28] MEDS: FAMOTIDINE 20 MG TAB PO SCH (07:40)
[2017-12-28] MEDS: IPRATROPIUM-ALBUTEROL 3 ML NEB INHALATION SCH ×4 (07:41→20:41)
[2017-12-28] MEDS: hydrALAZINE HCL 25 MG TAB PO SCH ×2 (07:42→20:37)
[2017-12-28] MEDS: oxyCODONE-APAP 10-325MG 1 EACH TAB PO PRN ×4 (09:44→22:04)
[2017-12-28 11:46] LABS: Glucose,Whole Blood 148 mg/dL (75-99)
--- NOTE | 2017-12-28 13:32 | P.HPIM ---
History of Present Illness H&P Date: 12/28/17 Chief Complaint: shortness of breath 62-year-old male who presented to the emergency room with a chief complaint of shortness of breath. He reports increased shortness of breath over the last few days. Reports frequent coughing with sputum production which is yellowish in color. He also states he has some soreness in his chest from coughing constantly. Denies nausea or vomiting. Patient denies having fevers at home, but it is noted he was febrile at 102.9 at the time of admission. He has been afebrile this morning. The patient has a history of COPD, hypertension, chronic back and neck pain, anxiety, depression, and bipolar disorder. The patient sees Dr. Marcus outpatient for pain management. He also has a history of obstructive sleep apnea. Chest x-ray: Minimal bibasilar subsegmental atelectasis with no focal consolidation to suggest pneumonia Laboratory data: WBC 4.9. Hemoglobin 14.7. Platelet count 140. Sodium 143. Potassium 4.2. BUN 20. Creatinine 0.80. Glucose 114. AST 104. ALT 131. Lactic acid: 1.1 Urinalysis reveals: 1+ proteinuria but otherwise unremarkable The patient was admitted to the hospital under the care of Dr. Lawson. Consultations were placed to Dr. Trammell and Dr. Granados. Review of Systems GENERAL: Patient denies fever, although febrile upon admission. Denies chills. EYES: Denies blurred vision. Denies vision changes. Denies eye pain. EARS, NOSE, MOUTH, & THROAT: Denies headache. Denies sore throat. Denies ear pain. RESPIRATORY: Positive for shortness of breath. Positive for cough with yellow colored sputum production. Denies hemoptysis. CARDIOVASCULAR: Denies chest pain or pressure. Denies palpitations. Denies arrhythmias. GASTROINTESTINAL: Denies abdominal pain. Denies diarrhea. Denies constipation. Denies nausea. Denies vomiting. Denies heartburn. Denies blood in the stool. GENITOURINARY: Denies urinary frequency. Denies burning. Denies dysuria. Denies cloudy urine. Denies blood in the urine. MUSCULOSKELETAL: Denies myalgias. Denies joint swelling. Denies decreased range of motion beyond patients baseline. INTEGUMENTARY: Denies pruitis. Denies rash. PSYCHIATRIC: Denies suicidal or homicial ideations. ENDOCRINE: Denies weight change. Denies polydipsia. Denies polyuria. HEMATOLOGIC: Denies bleeding disorders. Past Medical History Past Medical History: Atrial Flutter, Asthma, Chest Pain / Angina, COPD, GERD/ Reflux, Hypertension, Osteoarthritis (OA), Pneumonia, Sleep Apnea/CPAP/BIPAP Additional Past Medical History / Comment(s): Chronic neck and back pain, shingles. History of Any Multi-Drug Resistant Organisms: None Reported Past Surgical History: Adenoidectomy, Bowel Resection, Breast Surgery, Cholecystectomy Additional Past Surgical History / Comment(s): REMOVAL OF UVULA. bowel resection for large polyps, colonoscopy with polypectomies, nasal surgery x 2, bronchoscopy with lung bx, pain clinic procedures. Past Anesthesia/Blood Transfusion Reactions: Previous Problems w/ Anesthesia, Motion Sickness Additional Past Anesthesia/Blood Transfusion Reaction / Comment(s): states "during procedure of checking something on my left lung,I turned blue and I was brought right back out anesthesia and proc was cancelled". clausterphobia Past Psychological History: Anxiety, Bipolar, Depression, Panic Disorder Additional Psychological History / Comment(s): Pt resides alone in an apartment. 10 steps. no home care services. He has a nebulizer. Smoking Status: Former smoker Past Alcohol Use History: Occasional Additional Past Alcohol Use History / Comment(s): started smoking age 19(1974) smoked 1 ppd and quit 1987 Past Drug Use History: None Reported - Past Family History Mother Family Medical History: Asthma Additional Family Medical History / Comment(s): at age 62 Father Family Medical History: CVA/TIA Additional Family Medical History / Comment(s): at age 90 Medications and Allergies Home Medications Medication Instructions Recorded Confirmed Type Montelukast [Singulair] 10 mg PO DAILY 03/16/14 12/27/17 History amLODIPine [Norvasc] 5 mg PO QAM 07/05/14 12/27/17 History ALPRAZolam [Xanax] 1 mg PO TID 09/20/15 12/27/17 History Fluticasone/Vilanterol [Breo 1 puff INHALATION RT-DAILY 07/16/16 12/27/17 History Ellipta 100-25 Mcg Inhaler] Desvenlafaxine [Pristiq ER] 100 mg PO DAILY 09/23/16 12/27/17 History Umeclidinium [place] [Incruse 1 puff INHALATION RT-DAILY 10/08/16 12/27/17 History Ellipta] Hydrocodone/Acetaminophen [[place] 1 tab PO QID PRN 11/06/16 12/27/17 History 10-325] Albuterol Inhaler [Ventolin Hfa 2 puff INHALATION RT-QID PRN 05/28/17 12/27/17 History Inhaler] Famotidine [Pepcid] 20 mg PO DAILY 05/28/17 12/27/17 History Lurasidone HCl [Latuda] 20 mg PO DAILY 06/27/17 12/27/17 History Gabapentin [Neurontin] 100 mg PO TID #21 cap 07/07/17 12/27/17 Rx hydrALAZINE HCL [Apresoline] 25 mg PO BID #60 tab 11/20/17 12/27/17 Rx Azithromycin [Zithromax Z-pack] See Taper PO DAILY 12/27/17 12/27/17 History predniSONE 40 mg PO DAILY 12/27/17 12/27/17 History Allergies Allergy/AdvReac Type Severity Reaction Status Date / Time peanut Allergy alg testing Verified 12/27/17 14:52 pollen extracts Allergy Unknown Verified 12/27/17 14:52 DUST Allergy alg testing Uncoded 12/27/17 09:54 Physical Exam Vitals: Vital Signs Temp Pulse Pulse Resp BP BP Pulse Ox 12/28/17 11:26 88 12/28/17 11:12 88 12/28/17 07:56 86 12/28/17 07:46 72 22 12/28/17 07:44 82 95 12/28/17 05:55 98 12/28/17 05:47 99 12/28/17 05:40 80 12/28/17 05:33 99 12/28/17 05:32 72 12/28/17 05:30 97.8 F 72 22 145/78 99 12/28/17 01:20 92 L 12/28/17 01:19 94 12/28/17 01:02 86 12/27/17 20:20 98.3 F 70 18 122/69 95 12/27/17 20:13 94 16 12/27/17 16:06 96 12/27/17 15:55 88 12/27/17 14:30 99.1 F 84 18 145/86 95 12/27/17 14:28 98.5 F 81 18 120/80 92 L 12/27/17 11:50 100 F H 90 18 153/78 95 Intake and Output 12/27/17 12/28/17 12/28/17 22:59 06:59 14:59 Intake Total 600 Balance 600 Intake: Oral 600 Other: Voiding Method Urinal Urinal Urinal # Voids 2 1 GENERAL: This is a 61-year-old male in no apparent distress at the time of examination. Pleasant and cooperative. HEENT: Head is atraumatic, normocephalic. Pupils are equal, round, and reactive to light. Sclerae anicteric. Conjunctivae are clear. Mucus membranes of the mouth are moist. Neck is supple. RESPIRATORY: Scattered rhonchi with inspiratory and expiratory wheezing throughout. Frequent coughing noted. Patient maintaining oxygen saturation greater than 92% on 6L. No chest wall tenderness is noted on palpation or with deep breathing. CARDIOVASCULAR: Regular rate and rhythm. S1 and S2 noted. No systolic or diastolic murmur auscultated. No JVD noted. No S3 or S4 noted. GASTROINTESTINAL: Abdomen soft and round. No distention noted. Bowel sounds auscultated x 4 quadrants. No pain and tenderness noted upon palpation. INTEGUMENTARY: No cyanosis. No jaundice. No rashes noted. No cellulitis noted. EXTREMITIES: 2+ peripheral pulses. Trace bilateral lower extremity edema. No calf tenderness noted. NEUROLOGIC: Cranial nerves II-XII intact. PSYCHIATRIC: Awake, alert, and oriented X 3. Appropriate affect. Intact judgement and insight. Results CBC & Chem 7: 12/27/17 10:35 12/27/17 10:35 Labs: Abnormal Lab Results - Last 24 Hours (Table) 12/27/17 12/28/17 12/28/17 Range/Units 19:59 00:46 07:12 POC Glucose (mg/dL) 187 H 202 H 153 H (75-99) mg/dL Microbiology - Last 24 Hours (Table) 12/27/17 10:35 Urine Culture - Preliminary Urine,Clean Catch Thrombosis Risk Factor Assmnt - Choose All That Apply Each Factor Represents 1 point: Abnormal pulmonary function (COPD) Each Risk Factor Represents 2 Points: Age 61-74 years Thrombosis Risk Factor Assessment Total Risk Factor Score: 3 Thrombosis Risk Factor Assessment Level: Moderate Risk Assessment and Plan Plan: ASSESSMENT Acute exacerbation of chronic obstructive pulmonary disease Hypoxia, secondary to above, requiring supplemental oxygen Recent hospitalization for COPD exacerbation and influenza A History of obstructive sleep apnea Essential hypertension Chronic back and neck pain, sees Dr. Trammell outpatient for pain management Anxiety, unspecified Depression, unspecified Bipolar disorder Obesity: BMI 35.2 PLAN: Pulmonary, Dr. Granados on consult. Appreciate recommendations and input Duoneb nebulizer treatments QID and PRN Continue IV steroids: 60 mg IV every 6 hours Wean oxygen as tolerated to maintain oxygen saturations greater than 92% Incentive spirometer 10 times an hour while awake Await results of sputum culture and blood cultures Begin empiric antibiotics in the form of Levaquin 500mg PO daily Tylenol PRN for fevers Novolog sliding scale Dr. Trammell on consult. Appreciate recommendations and input Narcotics and pain management regimen per Dr. Trammell. Home meds as appropriate Monitor labs GI prophylaxis: Pepcid 20 mg PO daily DVT prophylaxis: PATRICK hose to bilateral lower extremities Monitor vital signs and address as appropriate PT/OT Further recommendations pending patient's course
--- NOTE | 2017-12-28 14:02 | P.CNPUL ---
History of Present Illness Consult date: 12/28/17 Reason for consult: dyspnea, cough, asthma, COPD, hypoxemia, pneumonia Chief complaint: Cough shortness of breath fever of 103 thick yellow sputum History of present illness: 62-year-old male who was seen evaluated examined on fifth floor patient presented into the hospital with 2-3 day history of increasing cough congestion shortness of breath patient has been producing light yellow to green sputum he presented 3 days ago in emergency department was seen evaluated examined and subsequently was discharged from the ER IV presented again yesterday morning with fever of 103 along with thick greenish sputum production has been admitted into the hospital, patient has chronic back pain which is not significantly changed also complaining of increased shortness of breath and wheezing more so compared to baseline denies any hemoptysis, patient does have history of severe COPD along with chronic persistent severe asthma patient also has sleep disorder breathing and sleep apnea has been using CPAP machine on a regular basisS x-ray performed emergency department revealed by basilar subsegmental atelectasis versus infiltratematernal labs are suggestive of mildly elevated liver enzymes otherwise fairly unremarkable, on specific questioning patient denies any seizure activity loss of consciousness), denies any chest pain or radiation pain, denies any bowel or bladder dysfunction, does have ongoing chronic back pain not much change different from baseline Review of Systems All systems: negative Past Medical History Past Medical History: Atrial Flutter, Asthma, Chest Pain / Angina, COPD, GERD/ Reflux, Hypertension, Osteoarthritis (OA), Pneumonia, Sleep Apnea/CPAP/BIPAP Additional Past Medical History / Comment(s): Chronic neck and back pain, shingles. History of Any Multi-Drug Resistant Organisms: None Reported Past Surgical History: Adenoidectomy, Bowel Resection, Breast Surgery, Cholecystectomy Additional Past Surgical History / Comment(s): REMOVAL OF UVULA. bowel resection for large polyps, colonoscopy with polypectomies, nasal surgery x 2, bronchoscopy with lung bx, pain clinic procedures. Past Anesthesia/Blood Transfusion Reactions: Previous Problems w/ Anesthesia, Motion Sickness Additional Past Anesthesia/Blood Transfusion Reaction / Comment(s): states "during procedure of checking something on my left lung,I turned blue and I was brought right back out anesthesia and proc was cancelled". clausterphobia Past Psychological History: Anxiety, Bipolar, Depression, Panic Disorder Additional Psychological History / Comment(s): Pt resides alone in an apartment. 10 steps. no home care services. He has a nebulizer. Smoking Status: Former smoker Past Alcohol Use History: Occasional Additional Past Alcohol Use History / Comment(s): started smoking age 19(1974) smoked 1 ppd and quit 1987 Past Drug Use History: None Reported - Past Family History Mother Family Medical History: Asthma Additional Family Medical History / Comment(s): at age 62 Father Family Medical History: CVA/TIA Additional Family Medical History / Comment(s): at age 90 Medications and Allergies Home Medications Medication Instructions Recorded Confirmed Type Montelukast [Singulair] 10 mg PO DAILY 03/16/14 12/27/17 History amLODIPine [Norvasc] 5 mg PO QAM 07/05/14 12/27/17 History ALPRAZolam [Xanax] 1 mg PO TID 09/20/15 12/27/17 History Fluticasone/Vilanterol [Breo 1 puff INHALATION RT-DAILY 07/16/16 12/27/17 History Ellipta 100-25 Mcg Inhaler] Desvenlafaxine [Pristiq ER] 100 mg PO DAILY 09/23/16 12/27/17 History Umeclidinium [place] [Incruse 1 puff INHALATION RT-DAILY 10/08/16 12/27/17 History Ellipta] Hydrocodone/Acetaminophen [[place] 1 tab PO QID PRN 11/06/16 12/27/17 History 10-325] Albuterol Inhaler [Ventolin Hfa 2 puff INHALATION RT-QID PRN 05/28/17 12/27/17 History Inhaler] Famotidine [Pepcid] 20 mg PO DAILY 05/28/17 12/27/17 History Lurasidone HCl [Latuda] 20 mg PO DAILY 06/27/17 12/27/17 History Gabapentin [Neurontin] 100 mg PO TID #21 cap 07/07/17 12/27/17 Rx hydrALAZINE HCL [Apresoline] 25 mg PO BID #60 tab 11/20/17 12/27/17 Rx Azithromycin [Zithromax Z-pack] See Taper PO DAILY 12/27/17 12/27/17 History predniSONE 40 mg PO DAILY 12/27/17 12/27/17 History Allergies Allergy/AdvReac Type Severity Reaction Status Date / Time peanut Allergy alg testing Verified 12/27/17 14:52 pollen extracts Allergy Unknown Verified 12/27/17 14:52 DUST Allergy alg testing Uncoded 12/27/17 09:54 Physical Exam Vitals: Vital Signs Temp Pulse Pulse Resp BP BP Pulse Ox 12/28/17 11:26 88 12/28/17 11:12 88 12/28/17 07:56 86 12/28/17 07:46 72 22 12/28/17 07:44 82 95 12/28/17 05:55 98 12/28/17 05:47 99 12/28/17 05:40 80 12/28/17 05:33 99 12/28/17 05:32 72 12/28/17 05:30 97.8 F 72 22 145/78 99 12/28/17 01:20 92 L 12/28/17 01:19 94 12/28/17 01:02 86 12/27/17 20:20 98.3 F 70 18 122/69 95 12/27/17 20:13 94 16 12/27/17 16:06 96 12/27/17 15:55 88 12/27/17 14:30 99.1 F 84 18 145/86 95 12/27/17 14:28 98.5 F 81 18 120/80 92 L Intake and Output 12/27/17 12/28/17 12/28/17 22:59 06:59 14:59 Intake Total 600 500 Balance 600 500 Intake: Oral 600 500 Other: Voiding Method Urinal Urinal Urinal # Voids 2 1 - Constitutional General appearance: mild distress, morbidly obese - EENT Eyes: EOMI, PERRLA, normal appearance Ears: bilateral: normal - Neck Carotids: bilateral: upstroke normal, bruit absent Thyroid: bilateral: normal size - Respiratory Respiratory: bilateral: diminished, rhonchi, wheezing, negative: dullness, rales - Cardiovascular Heart sounds: normal: S1, S2 - Gastrointestinal General gastrointestinal: distended, soft - Integumentary Integumentary: normal, normal turgor - Neurologic Neurologic: CNII-XII intact - Musculoskeletal Musculoskeletal: gait normal, generalized weakness, strength equal bilaterally - Psychiatric Psychiatric: A&O x's 3, appropriate affect, intact judgment & insight Results - Laboratory Findings CBC and BMP: 12/27/17 10:35 12/27/17 10:35 PT/INR, D-dimer PT 10.5 sec (9.0-12.0) 12/27/17 10:35 INR 1.1 (<1.2) 12/27/17 10:35 Abnormal lab findings: Abnormal Labs 12/27/17 12/27/17 12/27/17 10:35 10:35 10:35 RBC 4.22 L MCV 103.6 H Plt Count 140 L Lymphocytes # 0.3 L Glucose 114 H POC Glucose (mg/dL) AST 104 H ALT 131 H Total Protein 5.8 L Urine Protein 1+ H Urine Mucus Many H 12/27/17 12/28/17 12/28/17 19:59 00:46 07:12 RBC MCV Plt Count Lymphocytes # Glucose POC Glucose (mg/dL) 187 H 202 H 153 H AST ALT Total Protein Urine Protein Urine Mucus 12/28/17 11:45 RBC MCV Plt Count Lymphocytes # Glucose POC Glucose (mg/dL) 148 H AST ALT Total Protein Urine Protein Urine Mucus - Diagnostic Findings Chest x-ray: report reviewed, image reviewed Assessment and Plan Assessment: Bi basilar pneumonia acute on chronic hypoxic respiratory failure Acute COPD exacerbation Purulent tracheobronchitis Morbid obesity and severe degree of sleep disorder breathing and sleep apnea Chronic back pain Mood disorder depression Plan: broad-spectrum antibiotics Gentle IV rehydration Corticosteroids send a sputum for Gram stain and culture Breathing treatments DVT and peptic ulcer disease prophylaxis Further recommendations pending plan of care as per clinical response of the patient Time with Patient: Greater than 30
[2017-12-28] MEDS: LEVOFLOXACIN 500 MG TAB PO SCH (14:03)
[2017-12-28 15:51] LABS: Hemoglobin A1C 5.3 % (4.0-6.0)
[2017-12-28 16:53] LABS: Glucose,Whole Blood 142 mg/dL (75-99)
[2017-12-28 20:03] LABS: Glucose,Whole Blood 142 mg/dL (75-99)
[2017-12-28] MEDS: ALPRAZolam 1 MG TAB PO PRN (20:37)
[2017-12-29] MEDS: oxyCODONE-APAP 10-325MG 1 EACH TAB PO PRN ×5 (03:04→20:19)
[2017-12-29] MEDS: IPRATROPIUM-ALBUTEROL 3 ML NEB INHALATION PRN ×2 (03:22→23:09)
[2017-12-29] MEDS: ALPRAZolam 1 MG TAB PO PRN ×2 (06:07→22:09)
[2017-12-29] MEDS: methylPREDNISolone SOD SUCCI 125 MG/2 ML VIAL IV SCH ×4 (06:10→23:58)
[2017-12-29 06:39] LABS: Glucose,Whole Blood 152 mg/dL (75-99)
[2017-12-29] MEDS: IPRATROPIUM-ALBUTEROL 3 ML NEB INHALATION SCH ×4 (07:06→19:22)
[2017-12-29] MEDS: LEVOFLOXACIN 500 MG TAB PO SCH (07:37)
[2017-12-29] MEDS: LURASIDONE 40 MG TAB PO SCH (07:38)
[2017-12-29] MEDS: DESVENLAFAXINE SUCCINATE 50 MG TAB.ER.24H PO SCH (07:38)
[2017-12-29] MEDS: FAMOTIDINE 20 MG TAB PO SCH (07:38)
[2017-12-29] MEDS: hydrALAZINE HCL 25 MG TAB PO SCH ×2 (07:38→20:22)
[2017-12-29] MEDS: MONTELUKAST 10 MG TAB PO SCH (07:38)
[2017-12-29] MEDS: GABAPENTIN 100 MG CAP PO SCH ×3 (07:38→20:22)
[2017-12-29] MEDS: amLODIPine 5 MG TAB PO SCH (07:38)
[2017-12-29] MEDS: INSULIN ASPART 100 UNIT/ML 1 ML 10 ML VIAL SQ SCH ×4 (07:39→20:26)
[2017-12-29] MEDS ORDERED: BENZOCAINE/MENTHOL LOZENG 1 EACH LOZENGE MUCOUS MEM PRN (09:17)
[2017-12-29] MEDS ORDERED: guaiFENesin SYRUP 100MG/5ML 200 MG/10 ML CUP PO PRN (09:21)
--- NOTE | 2017-12-29 10:24 | P.PN ---
Subjective Progress Note Date: 12/29/17 Principal diagnosis: Purulent tracheobronchitis, bilateral lower lobe pneumonia, severe COPD, chronic hypoxic respirator failure, chronic persistent severe asthma, severe morbid obesity, obstructive sleep apnea, chronic back pain related to multiple herniated disc and degenerative joint disease 12/29/2017, patient seen eval examined during the rounds clinically patient has not been doing better still have significant degree of cough congestion not able to sleep last night due to severe intensive coughing, quality of breathing is still marginal get short of breath on minimal activity and exertion patient has been provided cough or sputum collection labs and medications reviewed, will add cough medicine also obtain a follow-up chest x-ray continue IV steroids antibiotics and breathing treatments with close monitoring and observation 62-year-old male who was seen evaluated examined on fifth floor patient presented into the hospital with 2-3 day history of increasing cough congestion shortness of breath patient has been producing light yellow to green sputum he presented 3 days ago in emergency department was seen evaluated examined and subsequently was discharged from the ER IV presented again yesterday morning with fever of 103 along with thick greenish sputum production has been admitted into the hospital, patient has chronic back pain which is not significantly changed also complaining of increased shortness of breath and wheezing more so compared to baseline denies any hemoptysis, patient does have history of severe COPD along with chronic persistent severe asthma patient also has sleep disorder breathing and sleep apnea has been using CPAP machine on a regular basisS x-ray performed emergency department revealed by basilar subsegmental atelectasis versus infiltratematernal labs are suggestive of mildly elevated liver enzymes otherwise fairly unremarkable, on specific questioning patient denies any seizure activity loss of consciousness), denies any chest pain or radiation pain, denies any bowel or bladder dysfunction, does have ongoing chronic back pain not much change different from baseline Objective - Vital Signs Vital signs: Vital Signs Temp 98.0 F 12/29/17 05:26 Pulse 88 12/29/17 07:18 Resp 18 12/29/17 05:26 BP 132/60 12/29/17 05:26 Pulse Ox 97 12/29/17 07:06 Intake & Output 12/28/17 12/29/17 12/29/17 18:59 06:59 18:59 Intake Total 500 Balance 500 Intake: Oral 500 Other: Voiding Method Urinal Urinal # Voids 2 - Exam - Constitutional General appearance: mild distress, morbidly obese - EENT Eyes: EOMI, PERRLA, normal appearance Ears: bilateral: normal - Neck Carotids: bilateral: upstroke normal, bruit absent Thyroid: bilateral: normal size - Respiratory Respiratory: bilateral: diminished, coarse inspiratory and expiratory rhonchi with bilateral wheezing, negative: dullness, rales - Cardiovascular Heart sounds: normal: S1, S2 - Gastrointestinal General gastrointestinal: distended, soft - Integumentary Integumentary: normal, normal turgor - Neurologic Neurologic: CNII-XII intact - Musculoskeletal Musculoskeletal: gait normal, generalized weakness, strength equal bilaterally - Psychiatric Psychiatric: A&O x's 3, appropriate affect, intact judgment & insight - Labs CBC & Chem 7: 12/27/17 10:35 12/27/17 10:35 Labs: Abnormal Lab Results - Last 24 Hours (Table) 12/28/17 12/28/17 12/28/17 Range/Units 11:45 16:51 19:59 POC Glucose (mg/dL) 148 H 142 H 142 H (75-99) mg/dL 12/29/17 Range/Units 06:36 POC Glucose (mg/dL) 152 H (75-99) mg/dL Microbiology - Last 24 Hours (Table) 12/27/17 10:35 Urine Culture - Final Urine,Clean Catch 12/27/17 10:35 Blood Culture - Preliminary Blood No Growth after 24 hours Assessment and Plan Assessment: Bi basilar pneumonia acute on chronic hypoxic respiratory failure Acute COPD exacerbation Purulent tracheobronchitis Morbid obesity and severe degree of sleep disorder breathing and sleep apnea Chronic back pain Mood disorder depression Plan: broad-spectrum antibiotics Cough suppressant medicine Repeat chest x-ray tomorrow Gentle IV rehydration Corticosteroids send a sputum for Gram stain and culture once available Breathing treatments DVT and peptic ulcer disease prophylaxis Further recommendations pending plan of care as per clinical response of the patient Time with Patient: Greater than 30
--- NOTE | 2017-12-29 10:31 | P.PN ---
Subjective Progress Note Date: 12/29/17 62-year-old male who presented to the emergency room with a chief complaint of shortness of breath. He reports increased shortness of breath over the last few days. Reports frequent coughing with sputum production which is yellowish in color. He also states he has some soreness in his chest from coughing constantly. Denies nausea or vomiting. Patient denies having fevers at home, but it is noted he was febrile at 102.9 at the time of admission. He has been afebrile this morning. The patient has a history of COPD, hypertension, chronic back and neck pain, anxiety, depression, and bipolar disorder. The patient sees Dr. Marcus outpatient for pain management. He also has a history of obstructive sleep apnea. Chest x-ray: Minimal bibasilar subsegmental atelectasis with no focal consolidation to suggest pneumonia Laboratory data: WBC 4.9. Hemoglobin 14.7. Platelet count 140. Sodium 143. Potassium 4.2. BUN 20. Creatinine 0.80. Glucose 114. AST 104. ALT 131. Lactic acid: 1.1 Urinalysis reveals: 1+ proteinuria but otherwise unremarkable The patient was admitted to the hospital under the care of Dr. Lawson. Consultations were placed to Dr. Trammell and Dr. Granados. 12/29/2017 Patient seen and examined at the bedside. Patient states his throat is very sore and he is having a hard time coughing because of the pain. Patient specifically requesting "cough syrup with codeine. It comes in a syringe and you squirt it in your mouth. Its grape flavored." Due to patients chronic pain and his pain management with Dr. Trammell, will not order cough syrup with codeine at this time. This was discussed with patient in detail and he is agreeable. Patient remains on 6L NC with oxygen saturations greater than 92%. He is afebrile. Blood pressure remains stable. Blood cultures are negative at 24 hour francisco. Urine culture is negative. Sputum culture is pending collection. Objective - Vital Signs Vital signs: Vital Signs Temp 98.0 F 12/29/17 05:26 Pulse 88 12/29/17 07:18 Resp 18 12/29/17 05:26 BP 132/60 12/29/17 05:26 Pulse Ox 97 12/29/17 07:06 Intake & Output 12/28/17 12/29/17 12/29/17 18:59 06:59 18:59 Intake Total 500 Balance 500 Intake: Oral 500 Other: Voiding Method Urinal Urinal # Voids 2 - Exam GENERAL: This is a 61-year-old male in no apparent distress at the time of examination. Pleasant and cooperative. HEENT: Head is atraumatic, normocephalic. Pupils are equal, round, and reactive to light. Sclerae anicteric. Conjunctivae are clear. Mucus membranes of the mouth are moist. Neck is supple. RESPIRATORY: Scattered rhonchi with inspiratory and expiratory wheezing throughout. Frequent coughing noted. Patient maintaining oxygen saturation greater than 92% on 6L. No chest wall tenderness is noted on palpation or with deep breathing. CARDIOVASCULAR: Regular rate and rhythm. S1 and S2 noted. No systolic or diastolic murmur auscultated. No JVD noted. No S3 or S4 noted. GASTROINTESTINAL: Abdomen soft and round. No distention noted. Bowel sounds auscultated x 4 quadrants. No pain and tenderness noted upon palpation. INTEGUMENTARY: No cyanosis. No jaundice. No rashes noted. No cellulitis noted. EXTREMITIES: 2+ peripheral pulses. No lower extremity edema. No calf tenderness noted. NEUROLOGIC: Cranial nerves II-XII intact. PSYCHIATRIC: Awake, alert, and oriented X 3. Appropriate affect. Intact judgement and insight. - Labs CBC & Chem 7: 12/27/17 10:35 12/27/17 10:35 Labs: Abnormal Lab Results - Last 24 Hours (Table) 12/28/17 12/28/17 12/28/17 Range/Units 11:45 16:51 19:59 POC Glucose (mg/dL) 148 H 142 H 142 H (75-99) mg/dL 12/29/17 Range/Units 06:36 POC Glucose (mg/dL) 152 H (75-99) mg/dL Microbiology - Last 24 Hours (Table) 12/27/17 10:35 Urine Culture - Final Urine,Clean Catch 12/27/17 10:35 Blood Culture - Preliminary Blood No Growth after 24 hours Assessment and Plan Plan: ASSESSMENT Acute exacerbation of chronic obstructive pulmonary disease Bibasilar pneumonia, present on admission, sputum culture pending Hypoxia, secondary to above, requiring supplemental oxygen Recent hospitalization for COPD exacerbation and influenza A History of obstructive sleep apnea Essential hypertension Chronic back and neck pain, sees Dr. Trammell outpatient for pain management Anxiety, unspecified Depression, unspecified Bipolar disorder Obesity: BMI 35.2 PLAN: Pulmonary, Dr. Granados on consult. Appreciate recommendations and input Duoneb nebulizer treatments QID and PRN Continue IV steroids: 60 mg IV every 6 hours Wean oxygen as tolerated to maintain oxygen saturations greater than 92% Incentive spirometer 10 times an hour while awake Obtain sputum culture if possible Continue Levaquin Will order cepacol lozenges, mucinex, tessalon perles, and robitussin NO ADDITIONAL NARCOTICS to be ordered including cough syrup with codeine at this time Dr. Trammell on consult. Appreciate recommendations and input Narcotics and pain management regimen per Dr. Trammell. Home meds as appropriate Monitor labs GI prophylaxis: Pepcid 20 mg PO daily DVT prophylaxis: PATRICK hose to bilateral lower extremities Monitor vital signs and address as appropriate PT/OT Further recommendations pending patient's course
[2017-12-29] MEDS: BENZONATATE 100 MG CAP PO SCH ×3 (11:01→20:22)
[2017-12-29] MEDS: guaiFENesin 600 MG TABLET.ER PO SCH ×2 (11:01→20:21)
[2017-12-29 11:03] LABS: Glucose,Whole Blood 140 mg/dL (75-99)
--- NOTE | 2017-12-29 11:04 | XR ---
EXAMINATION TYPE: XR chest 2V DATE OF EXAM: 12/29/2017 COMPARISON: 12/27/2017 HISTORY: Shortness of breath TECHNIQUE: Frontal and lateral views of the chest are obtained. FINDINGS: Scattered senescent parenchymal changes noted. Left lower lobe infiltrate persists correlate for pneumonia. Heart size is stable. Mediastinal structures are stable and grossly unremarkable. No evidence for hilar prominence. Degenerative changes dorsal spine. IMPRESSION: 1. Left lower lobe infiltrate persists correlate for pneumonia.
[2017-12-29] MEDS: guaiFENesin-DM 100-10MG/5ML 10 ML CUP PO PRN ×2 (16:07→22:09)
[2017-12-29 16:56] LABS: Glucose,Whole Blood 126 mg/dL (75-99)
[2017-12-29 20:08] LABS: Glucose,Whole Blood 162 mg/dL (75-99)
[2017-12-29 21:55] VITALS: TEMP 98
[2017-12-30] MEDS: oxyCODONE-APAP 10-325MG 1 EACH TAB PO PRN ×3 (00:14→12:44)
[2017-12-30] MEDS ORDERED: IPRATROPIUM-ALBUTEROL 3 ML NEB ONE (04:50)
[2017-12-30] MEDS ORDERED: guaiFENesin SYRUP 100MG/5ML 200 MG/10 ML CUP ONE (04:50)
[2017-12-30] MEDS ORDERED: guaiFENesin-DM 100-10MG/5ML 10 ML CUP ONE (04:50)
[2017-12-30] MEDS ORDERED: oxyCODONE-APAP 10-325MG 1 EACH TAB ONE (04:50)
[2017-12-30] MEDS: methylPREDNISolone SOD SUCCI 125 MG/2 ML VIAL IV SCH (06:07)
[2017-12-30 06:41] VITALS: BP 157/79
[2017-12-30 06:50] LABS: Glucose,Whole Blood 163 mg/dL (75-99)
[2017-12-30] MEDS: INSULIN ASPART 100 UNIT/ML 1 ML 10 ML VIAL SQ SCH ×2 (07:41→12:34)
[2017-12-30] MEDS: LURASIDONE 40 MG TAB PO SCH (08:36)
[2017-12-30] MEDS: guaiFENesin 600 MG TABLET.ER PO SCH (08:37)
[2017-12-30] MEDS: MONTELUKAST 10 MG TAB PO SCH (08:37)
[2017-12-30] MEDS: FAMOTIDINE 20 MG TAB PO SCH (08:37)
[2017-12-30] MEDS: hydrALAZINE HCL 25 MG TAB PO SCH (08:37)
[2017-12-30] MEDS: LEVOFLOXACIN 500 MG TAB PO SCH (08:37)
[2017-12-30] MEDS: DESVENLAFAXINE SUCCINATE 50 MG TAB.ER.24H PO SCH (08:38)
[2017-12-30] MEDS: BENZONATATE 100 MG CAP PO SCH (08:38)
[2017-12-30] MEDS: amLODIPine 5 MG TAB PO SCH (08:38)
[2017-12-30] MEDS: GABAPENTIN 100 MG CAP PO SCH (08:38)
[2017-12-30] MEDS: IPRATROPIUM-ALBUTEROL 3 ML NEB INHALATION SCH ×2 (08:50→12:09)
[2017-12-30 09:55] VITALS: RESP 22
--- NOTE | 2017-12-30 10:06 | P.PN ---
Subjective Progress Note Date: 12/30/17 62-year-old male who presented to the emergency room with a chief complaint of shortness of breath. He reports increased shortness of breath over the last few days. Reports frequent coughing with sputum production which is yellowish in color. He also states he has some soreness in his chest from coughing constantly. Denies nausea or vomiting. Patient denies having fevers at home, but it is noted he was febrile at 102.9 at the time of admission. He has been afebrile this morning. The patient has a history of COPD, hypertension, chronic back and neck pain, anxiety, depression, and bipolar disorder. The patient sees Dr. Marcus outpatient for pain management. He also has a history of obstructive sleep apnea. Chest x-ray: Minimal bibasilar subsegmental atelectasis with no focal consolidation to suggest pneumonia Laboratory data: WBC 4.9. Hemoglobin 14.7. Platelet count 140. Sodium 143. Potassium 4.2. BUN 20. Creatinine 0.80. Glucose 114. AST 104. ALT 131. Lactic acid: 1.1 Urinalysis reveals: 1+ proteinuria but otherwise unremarkable The patient was admitted to the hospital under the care of Dr. Lawson. Consultations were placed to Dr. Trammell and Dr. Granados. 12/29/2017 Patient seen and examined at the bedside. Patient states his throat is very sore and he is having a hard time coughing because of the pain. Patient specifically requesting "cough syrup with codeine. It comes in a syringe and you squirt it in your mouth. Its grape flavored." Due to patients chronic pain and his pain management with Dr. Trammell, will not order cough syrup with codeine at this time. This was discussed with patient in detail and he is agreeable. Patient remains on 6L NC with oxygen saturations greater than 92%. He is afebrile. Blood pressure remains stable. Blood cultures are negative at 24 hour francisco. Urine culture is negative. Sputum culture is pending collection. 12/30/2017 Patient seen and examined at the bedside. Patient is awake and alert. Patient continues to complain of a sore throat but states it has improved since yesterday. Patient remains on 6 L nasal cannula. Provider was told by nursing staff yesterday that when nursing attempted to decrease patient's oxygen he became very anxious although his oxygen saturations remained greater than 92%. Discussed with nursing and asked to evaluate patient on room air. Patient is requesting to be discharged home today. He states he has his 3 month appointment with his pain management doctor, Dr. Trammell, tomorrow. Objective - Vital Signs Vital signs: Vital Signs Temp 98.0 F 12/30/17 06:40 Pulse 96 12/30/17 09:08 Resp 22 12/30/17 09:52 BP 157/79 12/30/17 06:40 Pulse Ox 89 L 12/30/17 10:00 Intake & Output 12/29/17 12/30/17 12/30/17 18:59 06:59 18:59 Intake Total 600 Output Total 850 Balance -250 Weight 111.13 kg Intake: Oral 600 Output: Urine 850 Other: Voiding Method Urinal Urinal Urinal # Voids 3 2 - Exam GENERAL: This is a 62-year-old male in no apparent distress at the time of examination. Pleasant and cooperative. HEENT: Head is atraumatic, normocephalic. Pupils are equal, round, and reactive to light. Sclerae anicteric. Conjunctivae are clear. Mucus membranes of the mouth are moist. Neck is supple. RESPIRATORY: Scattered rhonchi. Wheezing has significantly improved. Patient maintaining oxygen saturation greater than 92%. No chest wall tenderness is noted on palpation or with deep breathing. CARDIOVASCULAR: Regular rate and rhythm. S1 and S2 noted. No systolic or diastolic murmur auscultated. No JVD noted. No S3 or S4 noted. GASTROINTESTINAL: Abdomen soft and round. No distention noted. Bowel sounds auscultated x 4 quadrants. No pain and tenderness noted upon palpation. INTEGUMENTARY: No cyanosis. No jaundice. No rashes noted. No cellulitis noted. EXTREMITIES: 2+ peripheral pulses. No lower extremity edema. No calf tenderness noted. NEUROLOGIC: Cranial nerves II-XII intact. PSYCHIATRIC: Awake, alert, and oriented X 3. Appropriate affect. Intact judgement and insight. - Labs CBC & Chem 7: 12/27/17 10:35 12/27/17 10:35 Labs: Abnormal Lab Results - Last 24 Hours (Table) 12/29/17 12/29/17 12/29/17 Range/Units 11:02 16:53 20:06 POC Glucose (mg/dL) 140 H 126 H 162 H (75-99) mg/dL 12/30/17 Range/Units 06:48 POC Glucose (mg/dL) 163 H (75-99) mg/dL Microbiology - Last 24 Hours (Table) 12/27/17 10:35 Blood Culture - Preliminary Blood No Growth after 48 hours Assessment and Plan Plan: ASSESSMENT Acute exacerbation of chronic obstructive pulmonary disease Bibasilar pneumonia, present on admission, sputum culture pending Hypoxia, secondary to above, requiring supplemental oxygen Recent hospitalization for COPD exacerbation and influenza A History of obstructive sleep apnea Essential hypertension Chronic back and neck pain, sees Dr. Trammell outpatient for pain management Anxiety, unspecified Depression, unspecified Bipolar disorder Obesity: BMI 35.2 PLAN: Pulmonary, Dr. Granados on consult. Appreciate recommendations and input Decrease steroids to 40 mg IV every 8 hours Wean oxygen as tolerated. Evaluate patient's oxygen saturation on room air Increase activity. Up to chair. Incentive spirometer 10 times an hour while awake Continue Levaquin Continue with cepacol lozenges, mucinex, tessalon perles, and robitussin NO ADDITIONAL NARCOTICS to be ordered including cough syrup with codeine at this time Dr. Trammell on consult. Appreciate recommendations and input Narcotics and pain management regimen per Dr. Trammell. Home meds as appropriate Monitor labs GI prophylaxis: Pepcid 20 mg PO daily DVT prophylaxis: PATRICK hose to bilateral lower extremities Monitor vital signs and address as appropriate Further recommendations pending patient's course Will re-evaluate patient this afternoon to determine if he is stable for discharge home
[2017-12-30 11:05] LABS: Glucose,Whole Blood 159 mg/dL (75-99)
[2017-12-30 12:22] VITALS: PULSE 84
--- NOTE | 2017-12-30 13:59 | P.PN ---
Subjective Progress Note Date: 12/30/17 Principal diagnosis: Purulent tracheobronchitis, bilateral lower lobe pneumonia, severe COPD, chronic hypoxic respirator failure, chronic persistent severe asthma, severe morbid obesity, obstructive sleep apnea, chronic back pain related to multiple herniated disc and degenerative joint disease 12/30/2017, patient seen eval examined during the rounds clinically slightly better breathing more comfortably severity of wheezing cough congestion is improved, denies any sputum production, urine and blood culture negative so far , overall from Sally standpoint patient can be discharged home on oral tapering steroids as well as oral antibiotics his prescription of doxycycline as well as Medrol Dosepak as been provided we'll follow patient in outpatient patient setting in 1-2 weeks after discharge 12/29/2017, patient seen eval examined during the rounds clinically patient has not been doing better still have significant degree of cough congestion not able to sleep last night due to severe intensive coughing, quality of breathing is still marginal get short of breath on minimal activity and exertion patient has been provided cough or sputum collection labs and medications reviewed, will add cough medicine also obtain a follow-up chest x-ray continue IV steroids antibiotics and breathing treatments with close monitoring and observation 62-year-old male who was seen evaluated examined on fifth floor patient presented into the hospital with 2-3 day history of increasing cough congestion shortness of breath patient has been producing light yellow to green sputum he presented 3 days ago in emergency department was seen evaluated examined and subsequently was discharged from the ER IV presented again yesterday morning with fever of 103 along with thick greenish sputum production has been admitted into the hospital, patient has chronic back pain which is not significantly changed also complaining of increased shortness of breath and wheezing more so compared to baseline denies any hemoptysis, patient does have history of severe COPD along with chronic persistent severe asthma patient also has sleep disorder breathing and sleep apnea has been using CPAP machine on a regular basisS x-ray performed emergency department revealed by basilar subsegmental atelectasis versus infiltratematernal labs are suggestive of mildly elevated liver enzymes otherwise fairly unremarkable, on specific questioning patient denies any seizure activity loss of consciousness), denies any chest pain or radiation pain, denies any bowel or bladder dysfunction, does have ongoing chronic back pain not much change different from baseline Objective - Vital Signs Vital signs: Vital Signs Temp 98.0 F 12/30/17 06:40 Pulse 84 12/30/17 12:21 Resp 22 12/30/17 09:52 BP 157/79 12/30/17 06:40 Pulse Ox 94 L 12/30/17 13:52 Intake & Output 12/29/17 12/30/17 12/30/17 18:59 06:59 18:59 Intake Total 600 Output Total 850 Balance -250 Weight 111.13 kg Intake: Oral 600 Output: Urine 850 Other: Voiding Method Urinal Urinal Urinal # Voids 3 2 - Exam - Constitutional General appearance: mild distress, morbidly obese - EENT Eyes: EOMI, PERRLA, normal appearance Ears: bilateral: normal - Neck Carotids: bilateral: upstroke normal, bruit absent Thyroid: bilateral: normal size - Respiratory Respiratory: bilateral: diminished, coarse inspiratory and expiratory rhonchi with bilateral wheezing, negative: dullness, rales - Cardiovascular Heart sounds: normal: S1, S2 - Gastrointestinal General gastrointestinal: distended, soft - Integumentary Integumentary: normal, normal turgor - Neurologic Neurologic: CNII-XII intact - Musculoskeletal Musculoskeletal: gait normal, generalized weakness, strength equal bilaterally - Psychiatric Psychiatric: A&O x's 3, appropriate affect, intact judgment & insight - Labs CBC & Chem 7: 12/27/17 10:35 12/27/17 10:35 Labs: Abnormal Lab Results - Last 24 Hours (Table) 12/29/17 12/29/17 12/30/17 Range/Units 16:53 20:06 06:48 POC Glucose (mg/dL) 126 H 162 H 163 H (75-99) mg/dL 12/30/17 Range/Units 11:03 POC Glucose (mg/dL) 159 H (75-99) mg/dL Microbiology - Last 24 Hours (Table) 12/27/17 10:35 Blood Culture - Preliminary Blood No Growth after 72 hours Assessment and Plan Assessment: Left lower lobe pneumonia acute on chronic hypoxic respiratory failure Acute COPD exacerbation Purulent tracheobronchitis Morbid obesity and severe degree of sleep disorder breathing and sleep apnea Chronic back pain Mood disorder depression Plan: broad-spectrum antibiotics Cough suppressant medicine as tolerated Repeat chest x-ray result reviewed Gentle IV rehydration Corticosteroids send a sputum for Gram stain and culture once available Breathing treatments DVT and peptic ulcer disease prophylaxis Further recommendations pending plan of care as per clinical response of the patient Time with Patient: Greater than 30
--- NOTE | 2017-12-30 14:08 | P.DS ---
Providers Date of admission: 12/27/17 14:09 Expected date of discharge: 12/30/17 Attending physician: Genaro Lawson Consults: 12/27/17 14:09 Consult Physician Routine Consulting Provider: Nehemiah Granados Consult Reason/Comments: dyspnea Do you want consulting provider notified?: Yes Consult Physician Routine Consulting Provider: George Trammell Consult Reason/Comments: Chronic pain Do you want consulting provider notified?: Yes Primary care physician: [facility] Course: 62-year-old male who presented to the emergency room with a chief complaint of shortness of breath. He reports increased shortness of breath over the last few days. Reports frequent coughing with sputum production which is yellowish in color. He also states he has some soreness in his chest from coughing constantly. Denies nausea or vomiting. Patient denies having fevers at home, but it is noted he was febrile at 102.9 at the time of admission. He has been afebrile this morning. The patient has a history of COPD, hypertension, chronic back and neck pain, anxiety, depression, and bipolar disorder. The patient sees Dr. Marcus outpatient for pain management. He also has a history of obstructive sleep apnea. Chest x-ray: Minimal bibasilar subsegmental atelectasis with no focal consolidation to suggest pneumonia Laboratory data: WBC 4.9. Hemoglobin 14.7. Platelet count 140. Sodium 143. Potassium 4.2. BUN 20. Creatinine 0.80. Glucose 114. AST 104. ALT 131. Lactic acid: 1.1 Urinalysis reveals: 1+ proteinuria but otherwise unremarkable The patient was admitted to the hospital under the care of Dr. Lawson. Consultations were placed to Dr. Trammell and Dr. Granados. 12/29/2017 Patient seen and examined at the bedside. Patient states his throat is very sore and he is having a hard time coughing because of the pain. Patient specifically requesting "cough syrup with codeine. It comes in a syringe and you squirt it in your mouth. Its grape flavored." Due to patients chronic pain and his pain management with Dr. Trammell, will not order cough syrup with codeine at this time. This was discussed with patient in detail and he is agreeable. Patient remains on 6L NC with oxygen saturations greater than 92%. He is afebrile. Blood pressure remains stable. Blood cultures are negative at 24 hour francisco. Urine culture is negative. Sputum culture is pending collection. 12/30/2017 0900-Patient seen and examined at the bedside. Patient is awake and alert. Patient continues to complain of a sore throat but states it has improved since yesterday. Patient remains on 6 L nasal cannula. Provider was told by nursing staff yesterday that when nursing attempted to decrease patient's oxygen he became very anxious although his oxygen saturations remained greater than 92%. Discussed with nursing and asked to evaluate patient on room air. Patient is requesting to be discharged home today. He states he has his 3 month appointment with his pain management doctor, Dr. Trammell, tomorrow. 1400-Patient reevaluated at the bedside. Patients respiratory status remains stable. He is on room air with oxygen saturations greater then 92%. The patient was deemed stable for discharge. He is to follow up on an outpatient basis with Dr. Lawson/[place] and Dr. Granados. Prescriptions were sent to the patient's preferred pharmacy for prednisone taper, Levaquin 500 mg daily 7 days , Robitussin DM PRN, Mucinex PRN, and cepacol lozenges DISCHARGE DIAGNOSIS: Acute exacerbation of chronic obstructive pulmonary disease Left lower lobe pneumonia, present on admission, sputum culture pending Hypoxia, secondary to above, requiring supplemental oxygen Recent hospitalization for COPD exacerbation and influenza A History of obstructive sleep apnea Essential hypertension Chronic back and neck pain, sees Dr. Trammell outpatient for pain management Anxiety, unspecified Depression, unspecified Bipolar disorder Obesity: BMI 35.2 Nurse practitioner note has been reviewed by physician. Signing provider agrees with the documented findings, assessment, and plan of care. Patient Condition at Discharge: Stable Plan - Discharge Summary Discharge Rx Participant: No New Discharge Prescriptions: New Levofloxacin [Levaquin] 500 mg PO DAILY 7 Days #7 tab predniSONE See Taper PO DIRECTED #30 tab Benzocaine/Menthol Lozeng [Cepacol lozenge] 1 each MUCOUS MEM Q1HR PRN #30 lozenge PRN Reason: Sore Throat guaiFENesin [Mucinex] 600 mg PO Q12HR PRN #30 tab PRN Reason: Cough guaiFENesin-DM 100-10MG/5ML [Robitussin DM] 10 ml PO Q6H PRN #30 cup PRN Reason: Cough Continue Montelukast [Singulair] 10 mg PO DAILY amLODIPine [Norvasc] 5 mg PO QAM ALPRAZolam [Xanax] 1 mg PO TID Fluticasone/Vilanterol [Breo Ellipta 100-25 Mcg Inhaler] 1 puff INHALATION RT -DAILY Desvenlafaxine [Pristiq ER] 100 mg PO DAILY Umeclidinium [place] [Incruse Ellipta] 1 puff INHALATION RT-DAILY Hydrocodone/Acetaminophen [[place] 10-325] 1 tab PO QID PRN PRN Reason: Pain Albuterol Inhaler [Ventolin Hfa Inhaler] 2 puff INHALATION RT-QID PRN PRN Reason: Shortness Of Breath Famotidine [Pepcid] 20 mg PO DAILY Lurasidone HCl [Latuda] 20 mg PO DAILY Gabapentin [Neurontin] 100 mg PO TID #21 cap hydrALAZINE HCL [Apresoline] 25 mg PO BID #60 tab Discontinued Azithromycin [Zithromax Z-pack] See Taper PO DAILY predniSONE 40 mg PO DAILY Discharge Medication List Montelukast [Singulair] 10 mg PO DAILY 03/16/14 [History] amLODIPine [Norvasc] 5 mg PO QAM 07/05/14 [History] ALPRAZolam [Xanax] 1 mg PO TID 09/20/15 [History] Fluticasone/Vilanterol [Breo Ellipta 100-25 Mcg Inhaler] 1 puff INHALATION RT- DAILY 07/16/16 [History] Desvenlafaxine [Pristiq ER] 100 mg PO DAILY 09/23/16 [History] Umeclidinium [place] [Incruse Ellipta] 1 puff INHALATION RT-DAILY 10/08/16 [ History] Hydrocodone/Acetaminophen [[place] 10-325] 1 tab PO QID PRN 11/06/16 [History] Albuterol Inhaler [Ventolin Hfa Inhaler] 2 puff INHALATION RT-QID PRN 05/28/17 [ History] Famotidine [Pepcid] 20 mg PO DAILY 05/28/17 [History] Lurasidone HCl [Latuda] 20 mg PO DAILY 06/27/17 [History] Gabapentin [Neurontin] 100 mg PO TID #21 cap 07/07/17 [Rx] hydrALAZINE HCL [Apresoline] 25 mg PO BID #60 tab 11/20/17 [Rx] Benzocaine/Menthol Lozeng [Cepacol lozenge] 1 each MUCOUS MEM Q1HR PRN #30 lozenge 12/30/17 [Rx] Levofloxacin [Levaquin] 500 mg PO DAILY 7 Days #7 tab 12/30/17 [Rx] guaiFENesin [Mucinex] 600 mg PO Q12HR PRN #30 tab 12/30/17 [Rx] guaiFENesin-DM 100-10MG/5ML [Robitussin DM] 10 ml PO Q6H PRN #30 cup 12/30/17 [ Rx] predniSONE See Taper PO DIRECTED #30 tab 12/30/17 [Rx] Follow up Appointment(s)/Referral(s): Michael Nuñez MD [Primary Care Provider] - 1 Week Nehemiah Granados MD [STAFF PHYSICIAN] - 2 Weeks Discharge Disposition: HOME SELF-CARE
[2017-12-30] MEDS ORDERED: methylPREDNISolone SOD SUCCI 40 MG/ML 1 ML VIAL IV SCH (16:00)
== END 2017-12-30 14:20 | disposition home or self-care (01) | DRG 193 ==
LOC: EC 09:46 → 5MS5E 14:09
PROVIDERS: ADMIT Family Medicine; ATTEND Family Medicine
DX: J18.9 Pneumonia, unspecified organism (principal); J96.21 Acute and chronic respiratory failure with hypoxia; J44.0 Chronic obstructive pulmonary disease with (acute) lower respiratory infection; J44.1 Chronic obstructive pulmonary disease with (acute) exacerbation; J45.50 Severe persistent asthma, uncomplicated; E66.01 Morbid (severe) obesity due to excess calories; F31.9 Bipolar disorder, unspecified; F41.0 Panic disorder [episodic paroxysmal anxiety]; G47.33 Obstructive sleep apnea (adult) (pediatric); G89.4 Chronic pain syndrome; I10 Essential (primary) hypertension; K21.9 Gastro-esophageal reflux disease without esophagitis; Z68.35 Body mass index [BMI] 35.0-35.9, adult; Z79.899 Other long term (current) drug therapy; Z82.5 Family history of asthma and other chronic lower respiratory diseases; Z87.891 Personal history of nicotine dependence; F40.240 Claustrophobia; Z79.891 Long term (current) use of opiate analgesic; Z79.52 Long term (current) use of systemic steroids; Z91.010 Allergy to peanuts; Z91.048 Other nonmedicinal substance allergy status
CPT/HCPCS: 36415; 71046; 80053; 81001; 81003; 83036; 83605; 84484; 85025; 85610; 85730; 87040; 87070; 87077; 87086; 87186; 87205; 87502; 93005; 94640; 94760; 96361; 96374; 99285

== ENCOUNTER 2017-12-31 10:18 | Inpatient (IN) | payer MEDICARE ==
[2017-12-31] MEDS ORDERED: ACETAMINOPHEN TAB 500 MG TAB PO STA (10:47)
[2017-12-31] MEDS ORDERED: IPRATROPIUM-ALBUTEROL 3 ML NEB INHALATION STA (10:47)
[2017-12-31] MEDS ORDERED: SODIUM CHLORIDE 0.9% 500 ML IV STA (10:48)
[2017-12-31] MEDS ORDERED: methylPREDNISolone SOD SUCCI 125 MG/2 ML VIAL IV STA (10:48)
--- NOTE | 2017-12-31 10:55 | ED ---
General Adult HPI - General Chief complaint: Shortness of Breath Stated complaint: SOB Time Seen by Provider: 12/31/17 10:40 Source: patient, RN notes reviewed Mode of arrival: wheelchair Limitations: no limitations - History of Present Illness Initial comments: Patient is a pleasant 62-year-old male presenting to the emergency department with difficulty in breathing. Patient was in the hospital and just discharged yesterday. Patient continues to have fevers. Patient continues to feel short of breath. Patient does have cough with some pino sputum production. Patient states it is difficult to get the sputum up. Symptoms are similar to previous COPD. Severity scale (1-10): 10 - Related Data Home Medications Medication Instructions Recorded Confirmed Montelukast [Singulair] 10 mg PO DAILY 03/16/14 12/31/17 amLODIPine [Norvasc] 5 mg PO QAM 07/05/14 12/31/17 ALPRAZolam [Xanax] 1 mg PO TID 09/20/15 12/31/17 Fluticasone/Vilanterol [Breo 1 puff INHALATION RT-DAILY 07/16/16 12/31/17 Ellipta 100-25 Mcg Inhaler] Desvenlafaxine [Pristiq ER] 100 mg PO DAILY 09/23/16 12/31/17 Umeclidinium [place] [Incruse 1 puff INHALATION RT-DAILY 10/08/16 12/31/17 Ellipta] Hydrocodone/Acetaminophen [[address] 1 tab PO QID PRN 11/06/16 12/31/17 10-325] Albuterol Inhaler [Ventolin Hfa 2 puff INHALATION RT-QID PRN 05/28/17 12/31/17 Inhaler] Famotidine [Pepcid] 20 mg PO DAILY 05/28/17 12/31/17 Lurasidone HCl [Latuda] 20 mg PO DAILY 06/27/17 12/31/17 Previous Rx's Medication Instructions Recorded Gabapentin [Neurontin] 100 mg PO TID #21 cap 07/07/17 hydrALAZINE HCL [Apresoline] 25 mg PO BID #60 tab 11/20/17 Benzocaine/Menthol Lozeng [Cepacol 1 each MUCOUS MEM Q1HR PRN #30 12/30/17 lozenge] lozenge Levofloxacin [Levaquin] 500 mg PO DAILY 7 Days #7 tab 12/30/17 guaiFENesin [Mucinex] 600 mg PO Q12HR PRN #30 tab 12/30/17 guaiFENesin-DM 100-10MG/5ML 10 ml PO Q6H PRN #30 cup 12/30/17 [Robitussin DM] predniSONE See Taper PO DIRECTED #30 tab 12/30/17 Allergies Allergy/AdvReac Type Severity Reaction Status Date / Time peanut Allergy alg testing Verified 12/31/17 10:26 pollen extracts Allergy Unknown Verified 12/31/17 10:26 DUST Allergy alg testing Uncoded 12/31/17 10:26 Review of Systems ROS Statement: Those systems with pertinent positive or pertinent negative responses have been documented in the HPI. ROS Other: All systems not noted in ROS Statement are negative. Constitutional: Reports: fever Eyes: Denies: eye pain ENT: Denies: ear pain Respiratory: Reports: cough, dyspnea Cardiovascular: Denies: chest pain Endocrine: Reports: fatigue Gastrointestinal: Denies: abdominal pain Genitourinary: Denies: dysuria Musculoskeletal: Denies: back pain Skin: Denies: rash Neurological: Denies: headache Past Medical History Past Medical History: Atrial Flutter, Asthma, Chest Pain / Angina, COPD, GERD/ Reflux, Hypertension, Osteoarthritis (OA), Pneumonia, Sleep Apnea/CPAP/BIPAP Additional Past Medical History / Comment(s): Chronic neck and back pain, shingles. History of Any Multi-Drug Resistant Organisms: None Reported Past Surgical History: Adenoidectomy, Bowel Resection, Breast Surgery, Cholecystectomy Additional Past Surgical History / Comment(s): REMOVAL OF UVULA. bowel resection for large polyps, colonoscopy with polypectomies, nasal surgery x 2, bronchoscopy with lung bx, pain clinic procedures. Past Anesthesia/Blood Transfusion Reactions: Previous Problems w/ Anesthesia, Motion Sickness Additional Past Anesthesia/Blood Transfusion Reaction / Comment(s): states "during procedure of checking something on my left lung,I turned blue and I was brought right back out anesthesia and proc was cancelled". clausterphobia Past Psychological History: Anxiety, Bipolar, Depression, Panic Disorder Smoking Status: Former smoker Past Alcohol Use History: Occasional Past Drug Use History: None Reported - Past Family History Mother Family Medical History: Asthma Additional Family Medical History / Comment(s): at age 62 Father Family Medical History: CVA/TIA Additional Family Medical History / Comment(s): at age 90 General Exam Limitations: no limitations General appearance: alert, in no apparent distress Head exam: Present: atraumatic Eye exam: Present: normal appearance, PERRL ENT exam: Present: normal oropharynx Neck exam: Present: normal inspection Respiratory exam: Present: wheezes Cardiovascular Exam: Present: tachycardia GI/Abdominal exam: Present: soft. Absent: tenderness Extremities exam: Present: normal inspection. Absent: pedal edema, calf tenderness Neurological exam: Present: alert Psychiatric exam: Present: normal affect, normal mood Skin exam: Present: normal color Course Vital Signs 12/31/17 12/31/17 12/31/17 10:23 10:26 10:39 Temperature 103.5 F H Pulse Rate 114 H Pulse Rate [ 114 H Right] Respiratory 28 H 28 H 28 H Rate Blood Pressure 140/87 Blood Pressure 151/85 [Right Arm] O2 Sat by Pulse 88 L 93 L Oximetry 12/31/17 12/31/17 12/31/17 10:41 10:56 11:00 Temperature Pulse Rate 114 H Pulse Rate [ 113 H 124 H Right] Respiratory 28 H 28 H Rate Blood Pressure Blood Pressure 151/85 178/105 [Right Arm] O2 Sat by Pulse 93 L 93 L Oximetry 12/31/17 11:09 Temperature Pulse Rate 111 H Pulse Rate [ Right] Respiratory Rate Blood Pressure Blood Pressure [Right Arm] O2 Sat by Pulse Oximetry - Reevaluation(s) Reevaluation #1: 12/31/17 12:22 Patient does meet sepsis criteria diagnosed at 12:22 PM. Blood culture and lactic acid have already been ordered. IV antibiotics will be ordered. EKG Findings - EKG Comments: EKG Findings:: Sinus tachycardia 118. RI 116. QRS 84. QT 302. QTC 423. Normal axis. Normal QRS. No acute ST change. Medical Decision Making - Medical Decision Making Patient reevaluated and updated. Case was discussed with Dr. Kerr, who will admit. - Lab Data Result diagrams: 12/31/17 10:46 12/31/17 10:46 Lab Results 12/31/17 12/31/17 12/31/17 Range/Units 10:46 10:46 10:46 WBC 6.1 (3.8-10.6) k/uL RBC 4.23 L (4.30-5.90) m/uL Hgb 14.6 (13.0-17.5) gm/dL Hct 43.1 (39.0-53.0) % MCV 102.0 H (80.0-100.0) fL MCH 34.6 (25.0-35.0) pg MCHC 33.9 (31.0-37.0) g/dL RDW 14.4 (11.5-15.5) % Plt Count 127 L (150-450) k/uL Neutrophils % 81 % Lymphocytes % 7 % Monocytes % 7 % Eosinophils % 1 % Basophils % 0 % Neutrophils # 4.9 (1.3-7.7) k/uL Lymphocytes # 0.4 L (1.0-4.8) k/uL Monocytes # 0.4 (0-1.0) k/uL Eosinophils # 0.0 (0-0.7) k/uL Basophils # 0.0 (0-0.2) k/uL Macrocytosis Slight PT (9.0-12.0) sec INR (<1.2) APTT (22.0-30.0) sec Sodium 135 L (137-145) mmol/L Potassium 4.4 (3.5-5.1) mmol/L Chloride 96 L (98-107) mmol/L Carbon Dioxide 29 (22-30) mmol/L Anion Gap 10 mmol/L BUN 25 H (9-20) mg/dL Creatinine 0.91 (0.66-1.25) mg/dL Est GFR (CKD-EPI)AfAm >90 (>60 ml/min/1.73 sqM) Est GFR (CKD-EPI)NonAf >90 (>60 ml/min/1.73 sqM) Glucose 94 (74-99) mg/dL Plasma Lactic Acid [place] 1.6 (0.7-2.0) mmol/L Calcium 8.4 (8.4-10.2) mg/dL Total Bilirubin 0.8 (0.2-1.3) mg/dL AST 94 H (17-59) U/L ALT 112 H (21-72) U/L Alkaline Phosphatase 53 (38-126) U/L Total Protein 5.7 L (6.3-8.2) g/dL Albumin 3.5 (3.5-5.0) g/dL Urine Color Urine Appearance (Clear) Urine pH (5.0-8.0) Ur Specific [place] (1.001-1.035) Urine Protein (Negative) Urine Glucose (UA) (Negative) Urine Ketones (Negative) Urine Blood (Negative) Urine Nitrite (Negative) Urine Bilirubin (Negative) Urine Urobilinogen (<2.0) mg/dL Ur Leukocyte Esterase (Negative) Urine RBC (0-5) /hpf Urine WBC (0-5) /hpf Amorphous Sediment (None) /hpf Urine Mucus (None) /hpf 12/31/17 12/31/17 Range/Units 10:46 10:51 WBC (3.8-10.6) k/uL RBC (4.30-5.90) m/uL Hgb (13.0-17.5) gm/dL Hct (39.0-53.0) % MCV (80.0-100.0) fL MCH (25.0-35.0) pg MCHC (31.0-37.0) g/dL RDW (11.5-15.5) % Plt Count (150-450) k/uL Neutrophils % % Lymphocytes % % Monocytes % % Eosinophils % % Basophils % % Neutrophils # (1.3-7.7) k/uL Lymphocytes # (1.0-4.8) k/uL Monocytes # (0-1.0) k/uL Eosinophils # (0-0.7) k/uL Basophils # (0-0.2) k/uL Macrocytosis PT 10.1 (9.0-12.0) sec INR 1.0 (<1.2) APTT 19.9 L (22.0-30.0) sec Sodium (137-145) mmol/L Potassium (3.5-5.1) mmol/L Chloride (98-107) mmol/L Carbon Dioxide (22-30) mmol/L Anion Gap mmol/L BUN (9-20) mg/dL Creatinine (0.66-1.25) mg/dL Est GFR (CKD-EPI)AfAm (>60 ml/min/1.73 sqM) Est GFR (CKD-EPI)NonAf (>60 ml/min/1.73 sqM) Glucose (74-99) mg/dL Plasma Lactic Acid [place] (0.7-2.0) mmol/L Calcium (8.4-10.2) mg/dL Total Bilirubin (0.2-1.3) mg/dL AST (17-59) U/L ALT (21-72) U/L Alkaline Phosphatase (38-126) U/L Total Protein (6.3-8.2) g/dL Albumin (3.5-5.0) g/dL Urine Color Yellow Urine Appearance Clear (Clear) Urine pH 6.0 (5.0-8.0) Ur Specific [place] 1.019 (1.001-1.035) Urine Protein 1+ H (Negative) Urine Glucose (UA) Negative (Negative) Urine Ketones Negative (Negative) Urine Blood Moderate H (Negative) Urine Nitrite Negative (Negative) Urine Bilirubin Negative (Negative) Urine Urobilinogen <2.0 (<2.0) mg/dL Ur Leukocyte Esterase Negative (Negative) Urine RBC <1 (0-5) /hpf Urine WBC 1 (0-5) /hpf Amorphous Sediment Rare H (None) /hpf Urine Mucus Rare H (None) /hpf - Radiology Data Radiology results: image reviewed (Rest x-ray shows increasing infiltrate on the left as well as atelectasis versus early infiltrate right base.) Critical Care Time Critical Care Time: Yes Total Critical Care Time: 33 Disposition Clinical Impression: Pneumonia, Sepsis Disposition[facility] Condition: Serious Referrals: Michael Nuñez MD [Primary Care Provider] - 1-2 days Decision Time: 12:23
[2017-12-31 11:05] LABS: Basophils % (A) 0 %; Eosinophils % (A) 1 %; HCT 43.1 % (39.0-53.0); HGB 14.6 gm/dL (13.0-17.5); Lymphocytes # (A) 0.4 k/uL (1.0-4.8); Lymphocytes % (A) 7 %; MCH 34.6 pg (25.0-35.0); MCHC 33.9 g/dL (31.0-37.0); Macrocytosis Slight; Mean Platelet Volume 7.4; Monocytes # (A) 0.4 k/uL (0-1.0); Monocytes % (A) 7 %; Neutrophils # (A) 4.9 k/uL (1.3-7.7); Neutrophils % (A) 81 %; Platelet Count 127 k/uL (150-450); RBC 4.23 m/uL (4.30-5.90); RDW 14.4 % (11.5-15.5); WBC 6.1 k/uL (3.8-10.6)
[2017-12-31 11:07] LABS: Amorphous Sediment,Urine Rare /hpf; Appearance,Urine Clear (Clear); Bilirubin,Urine Negative (Negative); Blood,Urine Moderate (Negative); Color,Urine Yellow; Glucose,Urine (UA) Negative (Negative); Ketones,Urine Negative (Negative); Leukocyte Esterase,Urine Negative (Negative); Mucus,Urine Rare /hpf; Nitrite,Urine Negative (Negative); Protein,Urine 1+ (Negative); RBC,Urine <1 /hpf (0-5); Specific Gravity,Urine 1.019 (1.001-1.035); Urobilinogen,Urine <2.0 mg/dL (<2.0); WBC,Urine 1 /hpf (0-5)
[2017-12-31 11:13] LABS: Prothrombin Time 10.1 sec (9.0-12.0)
[2017-12-31 11:23] LABS: ALT 112 U/L (21-72); AST 94 U/L (17-59); Albumin 3.5 g/dL (3.5-5.0); Alkaline Phosphatase 53 U/L (38-126); Anion Gap 10 mmol/L; Blood Urea Nitrogen 25 mg/dL (9-20); Calcium 8.4 mg/dL (8.4-10.2); Carbon Dioxide 29 mmol/L (22-30); Chloride 96 mmol/L (98-107); Glucose 94 mg/dL (74-99); Potassium 4.4 mmol/L (3.5-5.1); Sodium 135 mmol/L (137-145); Total Bilirubin 0.8 mg/dL (0.2-1.3); Total Protein 5.7 g/dL (6.3-8.2)
[2017-12-31 11:24] LABS: Partial Thromboplastin Time 19.9 sec (22.0-30.0)
--- NOTE | 2017-12-31 11:38 | XR ---
EXAMINATION TYPE: XR chest 2V DATE OF EXAM: 12/31/2017 COMPARISON: Chest x-ray from 2 days ago HISTORY: Chest pain. TECHNIQUE: Frontal and lateral views of the chest are obtained. FINDINGS: There is worsening left lower lobe infiltrate confirmed on 2 views. There is developing r ight medial basilar airspace opacity. No pleural effusion or pneumothorax is seen bilaterally. The ca rdiac silhouette size is stable and upper limits of normal. Retrocardiac opacity consistent with hiat al hernia is redemonstrated. The osseous structures are intact. IMPRESSION: Worsening left lower lobe infiltrate. Developing right medial basilar atelectasis and/or infiltrate noted.
[2017-12-31] MEDS ORDERED: PNEUMONIA PROTOCOL UTILIZED 1 EACH MISC PO PRN (12:23)
[2017-12-31] MEDS ORDERED: LEVOFLOXACIN 750MG-D5W PMX 750 MG in DEXTROSE/WATER 1 150ML.BAG IVPB STA (12:23)
[2017-12-31] MEDS ORDERED: PIPERACILLIN-TAZOBACTAM 3.375 GM in DEXTROSE/WATER 1 50ML.BAG IVPB STA (12:23)
[2017-12-31] MEDS: SODIUM CHLORIDE 0.9% 1,000 ML IV SCH ×2 (12:42→22:32)
[2017-12-31] MEDS ORDERED: guaiFENesin-DM 100-10MG/5ML 10 ML CUP PO PRN (13:07)
[2017-12-31] MEDS ORDERED: guaiFENesin 600 MG TABLET.ER PO PRN (13:07)
[2017-12-31] MEDS ORDERED: BENZOCAINE/MENTHOL LOZENG 1 EACH LOZENGE MUCOUS MEM PRN (13:07)
[2017-12-31] MEDS ORDERED: ALBUTEROL INHALER 60 PUFF/8 GM INHALER INHALATION PRN (13:07)
[2017-12-31] MEDS: HYDROcodone/APAP 10-325MG 1 EACH TAB PO PRN ×2 (13:17→19:13)
--- NOTE | 2017-12-31 13:51 | P.CNPUL ---
History of Present Illness Consult date: 12/31/17 Reason for consult: dyspnea, cough, pneumonia, obstructive sleep apnea Chief complaint: Cough shortness of breath with greenish sputum production History of present illness: 62-year-old male with extensive history of severe COPD emphysema and chronic persistent asthma of severe category, this patient has been admitted into the hospital with a one-day history of increasing difficulty in breathing cough and greenish sputum production patient was recently discharged 2 days ago with the in stable condition however patient was doing okay for a day until system symptoms relapse and decided to come into the hospital for further evaluation he has been evaluated in the emergency department chest x-ray revealed worsening of left lower lobe infiltrate as well as right medial basilar atelectasis, patient is admitted to hospital for IV antibiotics breathing treatments and steroids Review of Systems All systems: negative Past Medical History Past Medical History: Atrial Flutter, Asthma, Chest Pain / Angina, COPD, GERD/ Reflux, Hypertension, Osteoarthritis (OA), Pneumonia, Sleep Apnea/CPAP/BIPAP Additional Past Medical History / Comment(s): Chronic neck and back pain-sees Dr. Trammell, CELE without device, RLS, shingles. History of Any Multi-Drug Resistant Organisms: None Reported Past Surgical History: Adenoidectomy, Bowel Resection, Cholecystectomy Additional Past Surgical History / Comment(s): Uvulectomy, bowel resection for large polyps, colonoscopy with polypectomies, nasal surgery x 2, bronchoscopy with lung bx, pain clinic procedures. Past Anesthesia/Blood Transfusion Reactions: Previous Problems w/ Anesthesia, Motion Sickness Additional Past Anesthesia/Blood Transfusion Reaction / Comment(s): states "during procedure of checking something on my left lung,I turned blue and I was brought right back out anesthesia and proc was cancelled". clausterphobia Smoking Status: Former smoker - Past Family History Mother Family Medical History: Asthma Additional Family Medical History / Comment(s): at age 62 Father Family Medical History: CVA/TIA Additional Family Medical History / Comment(s): at age 90 Medications and Allergies Home Medications Medication Instructions Recorded Confirmed Type Montelukast [Singulair] 10 mg PO DAILY 03/16/14 12/31/17 History amLODIPine [Norvasc] 5 mg PO QAM 07/05/14 12/31/17 History ALPRAZolam [Xanax] 1 mg PO TID 09/20/15 12/31/17 History Fluticasone/Vilanterol [Breo 1 puff INHALATION RT-DAILY 07/16/16 12/31/17 History Ellipta 100-25 Mcg Inhaler] Desvenlafaxine [Pristiq ER] 100 mg PO DAILY 09/23/16 12/31/17 History Umeclidinium [place] [Incruse 1 puff INHALATION RT-DAILY 10/08/16 12/31/17 History Ellipta] Hydrocodone/Acetaminophen [[place] 1 tab PO QID PRN 11/06/16 12/31/17 History 10-325] Albuterol Inhaler [Ventolin Hfa 2 puff INHALATION RT-QID PRN 05/28/17 12/31/17 History Inhaler] Famotidine [Pepcid] 20 mg PO DAILY 05/28/17 12/31/17 History Lurasidone HCl [Latuda] 20 mg PO DAILY 06/27/17 12/31/17 History Gabapentin [Neurontin] 100 mg PO TID #21 cap 07/07/17 12/31/17 Rx hydrALAZINE HCL [Apresoline] 25 mg PO BID #60 tab 11/20/17 12/31/17 Rx Benzocaine/Menthol Lozeng [Cepacol 1 each MUCOUS MEM Q1HR PRN #30 12/30/1712/31 Rx lozenge] lozenge Levofloxacin [Levaquin] 500 mg PO DAILY 7 Days #7 tab 12/30/17 12/31/17 Rx guaiFENesin [Mucinex] 600 mg PO Q12HR PRN #30 tab 12/30/17 12/31/17 Rx guaiFENesin-DM 100-10MG/5ML 10 ml PO Q6H PRN #30 cup 12/30/17 12/31/17 Rx [Robitussin DM] predniSONE See Taper PO DIRECTED #30 tab 12/30/17 12/31/17 Rx Allergies Allergy/AdvReac Type Severity Reaction Status Date / Time peanut Allergy alg testing Verified 12/31/17 10:26 pollen extracts Allergy Unknown Verified 12/31/17 10:26 DUST Allergy alg testing Uncoded 12/31/17 10:26 Physical Exam Vitals: Vital Signs Temp Pulse Pulse Resp BP BP Pulse Ox 12/31/17 12:38 98.7 F 95 18 152/86 96 12/31/17 12:26 103 H 18 142/76 93 L 12/31/17 11:09 111 H 12/31/17 11:00 114 H 12/31/17 10:56 124 H 28 H 178/105 93 L 12/31/17 10:41 113 H 28 H 151/85 93 L 12/31/17 10:39 28 H 12/31/17 10:26 114 H 28 H 151/85 93 L 12/31/17 10:23 103.5 F H 114 H 28 H 140/87 88 L Intake and Output 12/30/17 12/31/17 12/31/17 22:59 06:59 14:59 Other: Weight 111.13 kg - Constitutional General appearance: cooperative, mild distress, morbidly obese, obese - EENT Eyes: EOMI, PERRLA, normal appearance ENT: normal oropharynx Ears: bilateral: normal - Neck Carotids: bilateral: upstroke normal, bruit absent Thyroid: bilateral: normal size - Respiratory Respiratory: bilateral: diminished, wheezing (Bilateral inspiratory and expiratory), prolonged expiration, negative: CTA, dullness, rales - Cardiovascular Rhythm: regular Heart sounds: normal: S1, S2 - Gastrointestinal General gastrointestinal: distended, soft - Integumentary Integumentary: normal, normal turgor - Neurologic Neurologic: CNII-XII intact - Musculoskeletal Musculoskeletal: gait normal, generalized weakness, strength equal bilaterally - Psychiatric Psychiatric: A&O x's 3, appropriate affect, intact judgment & insight Results - Laboratory Findings CBC and BMP: 12/31/17 10:46 12/31/17 10:46 PT/INR, D-dimer PT 10.1 sec (9.0-12.0) 12/31/17 10:46 INR 1.0 (<1.2) 12/31/17 10:46 Abnormal lab findings: Abnormal Labs 12/31/17 12/31/17 12/31/17 10:46 10:46 10:46 RBC 4.23 L MCV 102.0 H Plt Count 127 L Lymphocytes # 0.4 L APTT 19.9 L Sodium 135 L Chloride 96 L BUN 25 H AST 94 H ALT 112 H Total Protein 5.7 L Urine Protein Urine Blood Amorphous Sediment Urine Mucus 12/31/17 10:51 RBC MCV Plt Count Lymphocytes # APTT Sodium Chloride BUN AST ALT Total Protein Urine Protein 1+ H Urine Blood Moderate H Amorphous Sediment Rare H Urine Mucus Rare H - Diagnostic Findings Chest x-ray: report reviewed, image reviewed (Worsening infiltrate noted) Assessment and Plan Assessment: Left lower lobe worsening pneumonia likely appeared to be mixed bacterial and/ or or gram-negative related patient has been appropriately placed on broad- spectrum antibiotics with Levaquin and Zosyn Acute COPD exacerbation Obstructive sleep apnea Severe morbid obesity Chronic persistent severe asthma Chronic pain syndrome Mood disorder and depression Plan: Broad-spectrum antibiotic Breathing treatments IV steroids Deep breathing exercise incentive spirometry Sputum for Gram stain and culture Further recommendations pending plan of care as per clinical response of the patient Time with Patient: Greater than 30
[2017-12-31] MEDS: IPRATROPIUM-ALBUTEROL 3 ML NEB INHALATION SCH ×2 (15:19→20:09)
[2017-12-31] MEDS: GABAPENTIN 100 MG CAP PO SCH ×2 (16:33→22:17)
[2017-12-31 16:35] LABS: Glucose,Whole Blood 161 mg/dL (75-99)
[2017-12-31] MEDS: INSULIN ASPART 100 UNIT/ML 1 ML 10 ML VIAL SQ SCH ×2 (17:29→22:17)
[2017-12-31] MEDS: methylPREDNISolone SOD SUCCI 125 MG/2 ML VIAL IV SCH (17:32)
[2017-12-31] MEDS: ALPRAZolam 1 MG TAB PO SCH ×2 (19:26→22:17)
[2017-12-31] MEDS: hydrALAZINE HCL 25 MG TAB PO SCH (20:02)
[2017-12-31] MEDS: SYMBICORT 80-4.5 MCG INHALER INHALATION SCH (20:09)
[2017-12-31 20:50] LABS: Glucose,Whole Blood 171 mg/dL (75-99)
[2017-12-31 21:14] LABS: Hemoglobin A1C 5.6 % (4.0-6.0)
[2018-01-01] MEDS: PIPERACILLIN-TAZOBACTAM 3.375 GM in DEXTROSE/WATER 1 50ML.BAG IVPB SCH ×3 (01:08→17:01)
[2018-01-01] MEDS: methylPREDNISolone SOD SUCCI 125 MG/2 ML VIAL IV SCH ×4 (01:11→17:02)
[2018-01-01] MEDS: HYDROcodone/APAP 10-325MG 1 EACH TAB PO PRN ×4 (01:16→21:21)
[2018-01-01] MEDS: IPRATROPIUM-ALBUTEROL 3 ML NEB INHALATION PRN (01:25)
[2018-01-01 06:06] LABS: Glucose,Whole Blood 139 mg/dL (75-99)
[2018-01-01] MEDS: INSULIN ASPART 100 UNIT/ML 1 ML 10 ML VIAL SQ SCH ×4 (06:35→21:29)
[2018-01-01 06:47] LABS: Basophils % (A) 0 %; Eosinophils % (A) 0 %; HCT 43.3 % (39.0-53.0); HGB 13.9 gm/dL (13.0-17.5); Lymphocytes # (A) 0.4 k/uL (1.0-4.8); Lymphocytes % (A) 6 %; MCHC 32.2 g/dL (31.0-37.0); MCV 105.6 fL (80.0-100.0); Macrocytosis Moderate; Mean Platelet Volume 7.4; Monocytes # (A) 0.3 k/uL (0-1.0); Monocytes % (A) 5 %; Neutrophils # (A) 5.3 k/uL (1.3-7.7); Neutrophils % (A) 86 %; Platelet Count 123 k/uL (150-450); RDW 14.2 % (11.5-15.5); WBC 6.1 k/uL (3.8-10.6)
[2018-01-01 07:09] LABS: ALT 99 U/L (21-72); AST 62 U/L (17-59); Albumin 3.5 g/dL (3.5-5.0); Alkaline Phosphatase 48 U/L (38-126); Anion Gap 16 mmol/L; Blood Urea Nitrogen 22 mg/dL (9-20); Calcium 8.5 mg/dL (8.4-10.2); Carbon Dioxide 30 mmol/L (22-30); Chloride 98 mmol/L (98-107); Glucose 141 mg/dL (74-99); Sodium 144 mmol/L (137-145); Total Bilirubin 0.6 mg/dL (0.2-1.3); Total Protein 5.8 g/dL (6.3-8.2)
[2018-01-01] MEDS: IPRATROPIUM-ALBUTEROL 3 ML NEB INHALATION SCH ×4 (07:27→20:00)
[2018-01-01] MEDS: SYMBICORT 80-4.5 MCG INHALER INHALATION SCH (07:27)
[2018-01-01] MEDS: DESVENLAFAXINE SUCCINATE 50 MG TAB.ER.24H PO SCH (07:52)
[2018-01-01] MEDS: LURASIDONE 40 MG TAB PO SCH (07:53)
[2018-01-01] MEDS: hydrALAZINE HCL 25 MG TAB PO SCH ×2 (07:53→20:27)
[2018-01-01] MEDS: GABAPENTIN 100 MG CAP PO SCH ×3 (07:53→21:28)
[2018-01-01] MEDS: MONTELUKAST 10 MG TAB PO SCH (07:53)
[2018-01-01] MEDS: FAMOTIDINE 20 MG TAB PO SCH (07:54)
[2018-01-01] MEDS: amLODIPine 5 MG TAB PO SCH (07:54)
--- NOTE | 2018-01-01 07:57 | XR ---
EXAMINATION TYPE: XR chest 2V DATE OF EXAM: 01/01/2018 COMPARISON: 01/19/2018 HISTORY: Shortness of breath TECHNIQUE: Frontal and lateral views of the chest are obtained. FINDINGS: Scattered senescent parenchymal changes noted. Stable left lower lobe infiltrate. Heart size is stable. Mediastinal structures are stable and grossly unremarkable. No evidence for hilar prominence. Degenerative changes dorsal spine. IMPRESSION: 1. Table left lower lobe infiltrate.
[2018-01-01] MEDS ORDERED: NON-FORMULARY DRUG (Umeclidinium Bromide [Incruse Ellipta] 1 PUFF) INHALATION SCH (08:00)
--- NOTE | 2018-01-01 08:33 | P.HPIM ---
History of Present Illness H&P Date: 01/01/18 Chief Complaint: Dyspnea cough pneumonia Patient was discharged from the hospital originally a day and a half ago, insisted on being discharged so he can keep his pain management appointment with Dr. George TRUJILLO. And immediately following his pain management appointment he presented to the emergency room at [facility] complaining of dyspnea cough, and symptoms consistent with pneumonia. Wishing to be readmitted. On the ER evaluation chest x-ray read a revealed worsening left lower lobe infiltrate worsening of right basilar atelectasis. And fever of 103 Review of Systems Constitutional: Reports chills, Reports fever, Reports malaise, Reports night sweats Ears, nose, mouth and throat: Reports as per HPI Cardiovascular: Reports as per HPI Respiratory: Reports congestion, Reports cough, Reports sleep apnea, Reports wheezing Gastrointestinal: Reports as per HPI Genitourinary: Reports as per HPI Musculoskeletal: Reports as per HPI, Reports low back pain, Reports neck pain Integumentary: Reports as per HPI Neurological: Reports as per HPI Psychiatric: Reports depression, Reports sleep disturbances Past Medical History Past Medical History: Atrial Flutter, Asthma, Chest Pain / Angina, COPD, GERD/ Reflux, Hypertension, Osteoarthritis (OA), Pneumonia, Sleep Apnea/CPAP/BIPAP Additional Past Medical History / Comment(s): Chronic neck and back pain-sees Dr. Trujillo, CELE without device, RLS, shingles. History of Any Multi-Drug Resistant Organisms: None Reported Past Surgical History: Adenoidectomy, Bowel Resection, Cholecystectomy Additional Past Surgical History / Comment(s): Uvulectomy, bowel resection for large polyps, colonoscopy with polypectomies, nasal surgery x 2, bronchoscopy with lung bx, pain clinic procedures. Past Anesthesia/Blood Transfusion Reactions: Previous Problems w/ Anesthesia, Motion Sickness Additional Past Anesthesia/Blood Transfusion Reaction / Comment(s): states "during procedure of checking something on my left lung,I turned blue and I was brought right back out anesthesia and proc was cancelled". clausterphobia Smoking Status: Former smoker Past Alcohol Use History: Heavy - Past Family History Mother Family Medical History: Asthma Additional Family Medical History / Comment(s): at age 62 Father Family Medical History: CVA/TIA Additional Family Medical History / Comment(s): at age 90 Medications and Allergies Home Medications Medication Instructions Recorded Confirmed Type Montelukast [Singulair] 10 mg PO DAILY 03/16/14 12/31/17 History amLODIPine [Norvasc] 5 mg PO QAM 07/05/14 12/31/17 History ALPRAZolam [Xanax] 1 mg PO TID 09/20/15 12/31/17 History Fluticasone/Vilanterol [Breo 1 puff INHALATION RT-DAILY 07/16/16 12/31/17 History Ellipta 100-25 Mcg Inhaler] Desvenlafaxine [Pristiq ER] 100 mg PO DAILY 09/23/16 12/31/17 History Umeclidinium [place] [Incruse 1 puff INHALATION RT-DAILY 10/08/16 12/31/17 History Ellipta] Hydrocodone/Acetaminophen [[place] 1 tab PO QID PRN 11/06/16 12/31/17 History 10-325] Albuterol Inhaler [Ventolin Hfa 2 puff INHALATION RT-QID PRN 05/28/17 12/31/17 History Inhaler] Famotidine [Pepcid] 20 mg PO DAILY 05/28/17 12/31/17 History Lurasidone HCl [Latuda] 20 mg PO DAILY 06/27/17 12/31/17 History Gabapentin [Neurontin] 100 mg PO TID #21 cap 07/07/17 12/31/17 Rx hydrALAZINE HCL [Apresoline] 25 mg PO BID #60 tab 11/20/17 12/31/17 Rx Benzocaine/Menthol Lozeng [Cepacol 1 each MUCOUS MEM Q1HR PRN #30 12/30/1712/31 Rx lozenge] lozenge Levofloxacin [Levaquin] 500 mg PO DAILY 7 Days #7 tab 12/30/17 12/31/17 Rx guaiFENesin [Mucinex] 600 mg PO Q12HR PRN #30 tab 12/30/17 12/31/17 Rx guaiFENesin-DM 100-10MG/5ML 10 ml PO Q6H PRN #30 cup 12/30/17 12/31/17 Rx [Robitussin DM] predniSONE See Taper PO DIRECTED #30 tab 12/30/17 12/31/17 Rx Allergies Allergy/AdvReac Type Severity Reaction Status Date / Time peanut Allergy alg testing Verified 12/31/17 10:26 pollen extracts Allergy Unknown Verified 12/31/17 10:26 DUST Allergy alg testing Uncoded 12/31/17 10:26 Physical Exam Osteopathic Statement: *. No significant issues noted on an osteopathic structural exam other than those noted in the History and Physical/Consult. Vitals: Vital Signs Temp Pulse Pulse Resp BP BP Pulse Ox 01/01/18 07:42 76 01/01/18 07:30 72 95 01/01/18 04:00 73 24 155/88 01/01/18 01:37 83 01/01/18 01:25 73 01/01/18 00:00 76 24 162/90 95 12/31/17 20:25 80 12/31/17 20:09 76 12/31/17 20:00 80 24 12/31/17 19:57 97.6 F 80 24 146/85 94 L 12/31/17 15:39 106 H 12/31/17 15:35 97.4 F L 86 20 139/78 93 L 12/31/17 15:27 95 12/31/17 15:25 102 H 12/31/17 13:09 97.4 F L 97 20 135/91 93 L 12/31/17 12:38 98.7 F 95 18 152/86 96 12/31/17 12:26 103 H 18 142/76 93 L 12/31/17 11:09 111 H 12/31/17 11:00 114 H 12/31/17 10:56 124 H 28 H 178/105 93 L 12/31/17 10:41 113 H 28 H 151/85 93 L 12/31/17 10:39 28 H 12/31/17 10:26 114 H 28 H 151/85 93 L 12/31/17 10:23 103.5 F H 114 H 28 H 140/87 88 L Intake and Output 12/31/17 01/01/18 01/01/18 22:59 06:59 14:59 Intake Total 400 Output Total 325 350 Balance -325 50 Intake: Intake, IV Titration 400 Amount Sodium Chloride 0.9% 1, 400 000 ml @ 100 mls/hr IV . Q10H [facility] Rx#:[id number] Output: Urine 325 350 Other: # Voids 0 1 Weight 111.6 kg General: [Patient awake, alert and oriented times 3. Patient in no acute distress.] HEENT: [PERRL. EOMI. No pharyngeal erythema or exudate.] Neck: [No adenopathy.] Cardiac: [Heart regular in rate and rhythm. No S3. No S4. No clicks, rubs. No murmur.] Lungs: Bilateral chronic rhonchi bibasilar wheezes Abdomen: [No mass. No organomegaly. Bowel sounds presnt and normoactive in all 4 quadrants.] Extremes: [No edema no cyanosis no claudication normal pulses] : [] Musculoskeletal: [No joint erythema, edema or tenderness.] Skin: [No rash.] Neurologic: [No lateralizing deficits. CN II - XII grossly intact.] Lymphatic: [No adenopathy.] Results CBC & Chem 7: 01/01/18 06:16 01/01/18 06:16 Labs: Abnormal Lab Results - Last 24 Hours (Table) 12/31/17 12/31/17 12/31/17 Range/Units 10:46 10:46 10:46 RBC 4.23 L (4.30-5.90) m/uL MCV 102.0 H (80.0-100.0) fL Plt Count 127 L (150-450) k/uL Lymphocytes # 0.4 L (1.0-4.8) k/uL APTT 19.9 L (22.0-30.0) sec Sodium 135 L (137-145) mmol/L Chloride 96 L (98-107) mmol/L BUN 25 H (9-20) mg/dL Glucose (74-99) mg/dL POC Glucose (mg/dL) (75-99) mg/dL AST 94 H (17-59) U/L ALT 112 H (21-72) U/L Total Protein 5.7 L (6.3-8.2) g/dL Urine Protein (Negative) Urine Blood (Negative) Amorphous Sediment (None) /hpf Urine Mucus (None) /hpf 12/31/17 12/31/17 12/31/17 Range/Units 10:51 16:31 20:29 RBC (4.30-5.90) m/uL MCV (80.0-100.0) fL Plt Count (150-450) k/uL Lymphocytes # (1.0-4.8) k/uL APTT (22.0-30.0) sec Sodium (137-145) mmol/L Chloride (98-107) mmol/L BUN (9-20) mg/dL Glucose (74-99) mg/dL POC Glucose (mg/dL) 161 H 171 H (75-99) mg/dL AST (17-59) U/L ALT (21-72) U/L Total Protein (6.3-8.2) g/dL Urine Protein 1+ H (Negative) Urine Blood Moderate H (Negative) Amorphous Sediment Rare H (None) /hpf Urine Mucus Rare H (None) /hpf 01/01/18 01/01/18 01/01/18 Range/Units 06:05 06:16 06:16 RBC 4.10 L (4.30-5.90) m/uL MCV 105.6 H (80.0-100.0) fL Plt Count 123 L (150-450) k/uL Lymphocytes # 0.4 L (1.0-4.8) k/uL APTT (22.0-30.0) sec Sodium (137-145) mmol/L Chloride (98-107) mmol/L BUN 22 H (9-20) mg/dL Glucose 141 H (74-99) mg/dL POC Glucose (mg/dL) 139 H (75-99) mg/dL AST 62 H (17-59) U/L ALT 99 H (21-72) U/L Total Protein 5.8 L (6.3-8.2) g/dL Urine Protein (Negative) Urine Blood (Negative) Amorphous Sediment (None) /hpf Urine Mucus (None) /hpf Microbiology - Last 24 Hours (Table) 12/31/17 10:51 Urine Culture - Preliminary Urine,Voided Thrombosis Risk Factor Assmnt - Choose All That Apply Any of the Below Risk Factors Present?: Yes Each Factor Represents 1 point: Abnormal pulmonary function (COPD), Obesity ( BMI >25), Sepsis (< 1month), Serious lung disease incl. pneumonia (< 1month) Other Risk Factors: Yes Each Risk Factor Represents 2 Points: Age 61-74 years Other congenital or acquired thrombophilia - If yes, enter type in comment: No Thrombosis Risk Factor Assessment Total Risk Factor Score: 6 Thrombosis Risk Factor Assessment Level: High Risk Assessment and Plan (1) Pneumonia Narrative/Plan: Clinically improved today Continue updrafts, continue IV antibiotics, continue IV steroids Current Visit: Yes Status: Acute Code(s): J18.9 - PNEUMONIA, UNSPECIFIED ORGANISM SNOMED Code(s): 615531611 (2) Acute bronchitis Narrative/Plan: Chronic bronchitis secondary to smoking history Patient states he hasn't smoked in 20 years however he has significant chronic cough Patient overuses albuterol excessively Patient also has obstructive sleep apnea does have a CPAP machine questionable compliance with use Current Visit: No Status: Acute Code(s): J20.9 - ACUTE BRONCHITIS, UNSPECIFIED SNOMED Code(s): 66585623 (3) Acute exacerbation of chronic obstructive airways disease Narrative/Plan: Acute exacerbation of chronic COPD Currently patient is not oxygen dependent or steroid dependent Current Visit: No Status: Acute Code(s): J44.1 - CHRONIC OBSTRUCTIVE PULMONARY DISEASE W (ACUTE) EXACERBATION SNOMED Code(s): 981655120 (4) Acute pancreatitis Narrative/Plan: Resolved Current Visit: No Status: Acute Code(s): K85.9 - ACUTE PANCREATITIS, UNSPECIFIED * DO NOT USE * SNOMED Code(s): 349234182 Time with Patient: Greater than 30
[2018-01-01 11:40] LABS: Glucose,Whole Blood 135 mg/dL (75-99)
[2018-01-01] MEDS: ALPRAZolam 1 MG TAB PO SCH ×3 (12:05→21:28)
[2018-01-01] MEDS: SODIUM CHLORIDE 0.9% 1,000 ML IV SCH ×2 (12:12→21:27)
[2018-01-01] MEDS: LEVOFLOXACIN 750MG-D5W PMX 750 MG in DEXTROSE/WATER 1 150ML.BAG IVPB SCH (15:03)
--- NOTE | 2018-01-01 15:14 | PN ---
PROGRESS NOTE DATE OF SERVICE: 01/01/2018 Patient has been hemodynamically stable. He continues to have shortness of breath and wheezing. He has pain in his chest and back. PHYSICAL EXAMINATION: His respiratory rate is 16, pulse rate of 80, temperature 97, blood pressure 125/66. Oxygen saturation on room air is 96%. HEENT: Unremarkable. Chest reveals expiratory wheeze. Cardiovascular system is in S1, S2. ABDOMEN: Soft. There is trace pedal edema. LABS: White count 6.1, hemoglobin 13.9, sodium 144, potassium 4, chloride 98, bicarb 30, BUN 22, creatinine 0.8. IMPRESSION AT THIS TIME: 1. Acute respiratory failure secondary to severe asthma with acute exacerbation. 2. Chronic pain. 3. Obesity. At this point in time, add montelukast and inhaled budesonide by aerosol to his regimen. Discontinue Symbicort. Increase his activity level. Continue him on high- dose IV steroids. His prognosis at this time is fair. MMODL / IJN: [id number] /
[2018-01-01 17:15] LABS: Glucose,Whole Blood 149 mg/dL (75-99)
[2018-01-01] MEDS: BUDESONIDE 0.5 MG/2 ML NEBU INHALATION SCH (20:00)
[2018-01-01] MEDS: HEPARIN SODIUM,PORCINE 5,000 UNIT/ML 1 ML VIAL SQ SCH (20:27)
[2018-01-01 20:49] LABS: Glucose,Whole Blood 146 mg/dL (75-99)
[2018-01-02] MEDS: methylPREDNISolone SOD SUCCI 125 MG/2 ML VIAL IV SCH ×4 (01:36→17:08)
[2018-01-02] MEDS: PIPERACILLIN-TAZOBACTAM 3.375 GM in DEXTROSE/WATER 1 50ML.BAG IVPB SCH ×3 (01:37→15:06)
[2018-01-02] MEDS: IPRATROPIUM-ALBUTEROL 3 ML NEB INHALATION PRN (03:30)
[2018-01-02] MEDS: HYDROcodone/APAP 10-325MG 1 EACH TAB PO PRN ×4 (03:58→21:02)
[2018-01-02 05:55] LABS: Glucose,Whole Blood 158 mg/dL (75-99)
[2018-01-02] MEDS: INSULIN ASPART 100 UNIT/ML 1 ML 10 ML VIAL SQ SCH ×4 (06:46→21:47)
[2018-01-02] MEDS: SODIUM CHLORIDE 0.9% 1,000 ML IV SCH ×2 (06:47→13:34)
[2018-01-02] MEDS: IPRATROPIUM-ALBUTEROL 3 ML NEB INHALATION SCH ×4 (06:59→19:50)
[2018-01-02] MEDS: BUDESONIDE 0.5 MG/2 ML NEBU INHALATION SCH ×2 (06:59→19:50)
[2018-01-02] MEDS: ALPRAZolam 1 MG TAB PO SCH ×3 (09:03→21:47)
[2018-01-02] MEDS: hydrALAZINE HCL 25 MG TAB PO SCH ×2 (09:04→21:47)
[2018-01-02] MEDS: amLODIPine 5 MG TAB PO SCH (09:04)
[2018-01-02] MEDS: FAMOTIDINE 20 MG TAB PO SCH (09:04)
[2018-01-02] MEDS: MONTELUKAST 10 MG TAB PO SCH (09:04)
[2018-01-02] MEDS: GABAPENTIN 100 MG CAP PO SCH ×3 (09:04→21:47)
[2018-01-02] MEDS: LURASIDONE 40 MG TAB PO SCH (09:05)
[2018-01-02] MEDS: HEPARIN SODIUM,PORCINE 5,000 UNIT/ML 1 ML VIAL SQ SCH ×2 (09:05→21:47)
[2018-01-02] MEDS: DESVENLAFAXINE SUCCINATE 50 MG TAB.ER.24H PO SCH (09:05)
--- NOTE | 2018-01-02 10:30 | P.PN ---
Subjective Progress Note Date: 01/02/18 Principal diagnosis: Acute exacerbation chronic COPD, with underlying bilateral infiltrate Patient has left lower lobe infiltrate on x-ray, gram-positive cocci and gram positive rods and sputum, patient has had intermittent fevers, and Rocephin 1 g every 24 hours for possible strep pneumo S patient has been in and out of the hospital quite a bit with upper respiratory infections. As well as this individual is an quite noncompliant with home meds as well overdoing it with patient's oral opiate pain medicines Objective - Vital Signs Vital signs: Vital Signs Temp 97 F L 01/02/18 03:59 Pulse 84 01/02/18 07:19 Resp 22 01/02/18 04:00 BP 136/82 01/02/18 03:59 Pulse Ox 98 01/02/18 07:02 Intake & Output 01/01/18 01/02/18 01/02/18 18:59 06:59 18:59 Intake Total 2330 120 Output Total 1100 1700 400 Balance 1230 -1700 -280 Weight 112.8 kg Intake: Intake, IV Titration 1050 Amount Levofloxacin 750Mg-D5w 150 Pmx 750 mg In Dextrose/ Water 1 150ml.bag @ 100 mls/hr IVPB Q24H [facility] Rx#: [id number] Piperacillin-Tazobactam 3 100 .375 gm In Dextrose/Water 1 50ml.bag @ 12.5 mls/hr IVPB Q8HR [facility] Rx#: [id number] Sodium Chloride 0.9% 1, 800 000 ml @ 100 mls/hr IV . Q10H [facility] Rx#:[id number] Oral 1280 120 Output: Urine 1100 1700 400 Other: # Voids 2 - Exam General: [Patient awake, alert and oriented times 3. Patient in no acute distress.] HEENT: [PERRL. EOMI. No pharyngeal erythema or exudate.] Neck: [No adenopathy.] Cardiac: [Heart regular in rate and rhythm. No S3. No S4. No clicks, rubs. No murmur.] Lungs: Consolidation on the left lower lobe with bibasilar crackles Abdomen: [No mass. No organomegaly. Bowel sounds presnt and normoactive in all 4 quadrants.] Extremes: [No edema no cyanosis no claudication normal pulses] : [] Musculoskeletal: [No joint erythema, edema or tenderness.] Skin: [No rash.] Neurologic: [No lateralizing deficits. CN II - XII grossly intact.] Lymphatic: [No adenopathy.] - Labs CBC & Chem 7: 01/01/18 06:16 01/01/18 06:16 Labs: Abnormal Lab Results - Last 24 Hours (Table) 01/01/18 01/01/18 01/01/18 Range/Units 11:34 16:54 20:48 POC Glucose (mg/dL) 135 H 149 H 146 H (75-99) mg/dL 01/02/18 Range/Units 05:54 POC Glucose (mg/dL) 158 H (75-99) mg/dL Microbiology - Last 24 Hours (Table) 01/01/18 01:25 Gram Stain - Preliminary Sputum 12/31/17 10:51 Urine Culture - Final Urine,Voided 12/31/17 10:46 Blood Culture - Preliminary Blood No Growth after 24 hours Assessment and Plan (1) Pneumonia Current Visit: Yes Status: Acute Code(s): J18.9 - PNEUMONIA, UNSPECIFIED ORGANISM SNOMED Code(s): 120737981 (2) Acute bronchitis Current Visit: No Status: Acute Code(s): J20.9 - ACUTE BRONCHITIS, UNSPECIFIED SNOMED Code(s): 45256604 (3) Acute exacerbation of chronic obstructive airways disease Current Visit: No Status: Acute Code(s): J44.1 - CHRONIC OBSTRUCTIVE PULMONARY DISEASE W (ACUTE) EXACERBATION SNOMED Code(s): 928281827 (4) Acute pancreatitis Narrative/Plan: Resolved Current Visit: No Status: Acute Code(s): K85.9 - ACUTE PANCREATITIS, UNSPECIFIED * DO NOT USE * SNOMED Code(s): 939183955 Plan: Add Rocephin 1 g every 24 hours Time with Patient: Greater than 30
[2018-01-02 12:14] LABS: Glucose,Whole Blood 124 mg/dL (75-99)
[2018-01-02] MEDS: cefTRIAXone IN SWFI 1,000 MG/10 ML SYRINGE IVP SCH (12:16)
[2018-01-02] MEDS: LEVOFLOXACIN 750MG-D5W PMX 750 MG in DEXTROSE/WATER 1 150ML.BAG IVPB SCH (12:16)
--- NOTE | 2018-01-02 13:40 | PN ---
PROGRESS NOTE DATE OF SERVICE: 01/02/2018. He has been hemodynamically stable. He is less short of breath. On physical examination, his vital signs reveal a respiratory rate of 12, pulse rate is 62, temperature 97.7, blood pressure 144/80, O2 saturation on room air is 96%. HEENT is unremarkable. Chest reveals expiratory wheeze. Cardiovascular system reveals S1, S2. Abdomen is soft. There is no edema. Microbiological cultures are showing blood cultures to be negative. Sputum is showing gram-positive cocci and Gram negative bacilli only on the Gram stain. The culture itself is pending. IMPRESSION: 1. Acute respiratory failure secondary to severe asthma with acute exacerbation. 2. Chronic pain. 3. Pneumonia. 4. Obesity. Continue montelukast, inhaled steroids, and IV steroids. Switch him to oral steroids starting tomorrow if he otherwise continues to improve. Continue current antibiotic coverage. Increases activity level. His prognosis at this time is fair. MMODL / IJN: [id number] /
[2018-01-02 17:21] LABS: Glucose,Whole Blood 107 mg/dL (75-99)
[2018-01-02 20:59] LABS: Glucose,Whole Blood 149 mg/dL (75-99)
[2018-01-03] MEDS: PIPERACILLIN-TAZOBACTAM 3.375 GM in DEXTROSE/WATER 1 50ML.BAG IVPB SCH ×3 (00:03→17:18)
[2018-01-03] MEDS: methylPREDNISolone SOD SUCCI 125 MG/2 ML VIAL IV SCH ×4 (00:04→17:18)
[2018-01-03] MEDS: IPRATROPIUM-ALBUTEROL 3 ML NEB INHALATION PRN (02:59)
[2018-01-03] MEDS: HYDROcodone/APAP 10-325MG 1 EACH TAB PO PRN ×4 (03:01→20:14)
[2018-01-03] MEDS: SODIUM CHLORIDE 0.9% 1,000 ML IV SCH ×2 (04:33→08:18)
[2018-01-03 07:13] LABS: Glucose,Whole Blood 136 mg/dL (75-99)
[2018-01-03] MEDS: BUDESONIDE 0.5 MG/2 ML NEBU INHALATION SCH ×2 (07:25→19:17)
[2018-01-03] MEDS: IPRATROPIUM-ALBUTEROL 3 ML NEB INHALATION SCH ×4 (07:25→19:17)
[2018-01-03] MEDS: FAMOTIDINE 20 MG TAB PO SCH (08:16)
[2018-01-03] MEDS: amLODIPine 5 MG TAB PO SCH (08:16)
[2018-01-03] MEDS: HEPARIN SODIUM,PORCINE 5,000 UNIT/ML 1 ML VIAL SQ SCH ×2 (08:16→20:13)
[2018-01-03] MEDS: MONTELUKAST 10 MG TAB PO SCH (08:16)
[2018-01-03] MEDS: LURASIDONE 40 MG TAB PO SCH (08:16)
[2018-01-03] MEDS: GABAPENTIN 100 MG CAP PO SCH ×3 (08:16→21:41)
[2018-01-03] MEDS: hydrALAZINE HCL 25 MG TAB PO SCH ×2 (08:16→20:14)
[2018-01-03] MEDS: DESVENLAFAXINE SUCCINATE 50 MG TAB.ER.24H PO SCH (08:16)
[2018-01-03] MEDS: ALPRAZolam 1 MG TAB PO SCH ×3 (08:17→21:41)
[2018-01-03] MEDS: INSULIN ASPART 100 UNIT/ML 1 ML 10 ML VIAL SQ SCH ×4 (08:17→21:41)
[2018-01-03] MEDS: cefTRIAXone IN SWFI 1,000 MG/10 ML SYRINGE IVP SCH (08:18)
[2018-01-03 11:56] LABS: Glucose,Whole Blood 126 mg/dL (75-99)
[2018-01-03] MEDS: LEVOFLOXACIN 750MG-D5W PMX 750 MG in DEXTROSE/WATER 1 150ML.BAG IVPB SCH (12:48)
--- NOTE | 2018-01-03 12:48 | P.PN ---
Subjective Progress Note Date: 01/03/18 Principal diagnosis: By basilar basilar pneumonia, acute hypoxic restrictive failure, acute COPD exacerbation, morbid obesity, obstructive sleep apnea and sleep disorder breathing, morbid disorder depression 01/03/2018, patient seen eval examined during the rounds clinically patient is still not doing very well is still have intermittent cough congestion and thick purulent sputum production the chest x-ray performed January 01 is still showing left lower lobe infiltrate which appears to be non-resolving patient remains on broad-spectrum antibiotics with vancomycin and Zosyn, culture results and reports are reviewed no significant predominance of any organism has been noted 62-year-old male with extensive history of severe COPD emphysema and chronic persistent asthma of severe category, this patient has been admitted into the hospital with a one-day history of increasing difficulty in breathing cough and greenish sputum production patient was recently discharged 2 days ago with the in stable condition however patient was doing okay for a day until system symptoms relapse and decided to come into the hospital for further evaluation he has been evaluated in the emergency department chest x-ray revealed worsening of left lower lobe infiltrate as well as right medial basilar atelectasis, patient is admitted to hospital for IV antibiotics breathing treatments and steroids Objective - Vital Signs Vital signs: Vital Signs Temp 97.8 F 01/03/18 05:55 Pulse 96 01/03/18 11:30 Resp 16 01/03/18 11:12 BP 145/85 01/03/18 05:55 Pulse Ox 97 01/03/18 07:27 Intake & Output 01/02/18 01/03/18 01/03/18 18:59 06:59 18:59 Intake Total 120 Output Total 800 950 Balance -680 -950 Weight 112.5 kg Intake: Oral 120 Output: Urine 800 950 Other: # Voids 2 - Exam Constitutional General appearance: cooperative, mild distress, morbidly obese, obese - EENT Eyes: EOMI, PERRLA, normal appearance ENT: normal oropharynx Ears: bilateral: normal - Neck Carotids: bilateral: upstroke normal, bruit absent Thyroid: bilateral: normal size - Respiratory Respiratory: bilateral: diminished, wheezing (Bilateral inspiratory and expiratory), prolonged expiration, negative: CTA, dullness, rales - Cardiovascular Rhythm: regular Heart sounds: normal: S1, S2 - Gastrointestinal General gastrointestinal: distended, soft - Integumentary Integumentary: normal, normal turgor - Neurologic Neurologic: CNII-XII intact - Musculoskeletal Musculoskeletal: gait normal, generalized weakness, strength equal bilaterally - Psychiatric Psychiatric: A&O x's 3, appropriate affect, intact judgment & insight - Labs CBC & Chem 7: 01/01/18 06:16 01/01/18 06:16 Labs: Abnormal Lab Results - Last 24 Hours (Table) 01/02/18 01/02/18 01/03/18 Range/Units 17:16 20:57 07:09 POC Glucose (mg/dL) 107 H 149 H 136 H (75-99) mg/dL 01/03/18 Range/Units 11:55 POC Glucose (mg/dL) 126 H (75-99) mg/dL Microbiology - Last 24 Hours (Table) 01/01/18 01:25 Gram Stain - Final Sputum Sputum Culture - Final 12/31/17 10:46 Blood Culture - Preliminary Blood No Growth after 48 hours Assessment and Plan Assessment: Left lower lobe worsening pneumonia likely appeared to be mixed bacterial and/ or or gram-negative related patient has been appropriately placed on broad- spectrum antibiotics with Levaquin and Zosyn Non-resolving persistent left lower lobe infiltrate with negative cultures Acute COPD exacerbation Obstructive sleep apnea Severe morbid obesity Chronic persistent severe asthma Chronic pain syndrome Mood disorder and depression Plan: Broad-spectrum antibiotic Breathing treatments IV steroids Deep breathing exercise incentive spirometry Sputum for Gram stain and culture results and report reviewed Obtain computed tomography scan of the chest without IV dye, persistent left lower lobe infiltrate Further recommendations pending plan of care as per clinical response of the patient and finding on above-mentioned test results and report Time with Patient: Greater than 30
--- NOTE | 2018-01-03 13:14 | P.PN ---
Subjective Progress Note Date: 01/03/18 Patient seen and examined at the bedside. Patient states he feels "rough" today. He reports shortness of breath and coughing. Patient remains on IV solumedral 60mg q 6 hours. Patient was febrile on admission with a temperature of 103.5. He has been afebrile since that time. Gram stain of sputum reveals few gram positive cocci, few gram-positive bacilli, and rare squamous epithelial cells. Sputum culture reveals moderate normal respiratory jose. Urine culture is negative at 18 hour francisco. Blood cultures are negative at the 48 hour francisco. He remains on 3 L nasal cannula with oxygen saturations greater than 92%. Blood pressure is stable with a last reading of 145/85. Heart rate is in 80s. Objective - Vital Signs Vital signs: Vital Signs Temp 97.8 F 01/03/18 05:55 Pulse 92 01/03/18 11:27 Resp 16 01/03/18 11:12 BP 145/85 01/03/18 05:55 Pulse Ox 97 01/03/18 07:27 Intake & Output 01/02/18 01/03/18 01/03/18 18:59 06:59 18:59 Intake Total 120 Output Total 800 950 Balance -680 -950 Weight 112.5 kg Intake: Oral 120 Output: Urine 800 950 Other: # Voids 2 - Exam GENERAL: This is a 62-year-old male in no apparent distress at the time of examination. Pleasant and cooperative. HEENT: Head is atraumatic, normocephalic. Pupils are equal, round, and reactive to light. Sclerae anicteric. Conjunctivae are clear. Mucus membranes of the mouth are moist. Neck is supple. RESPIRATORY: Scattered rhonchi throughout with inspiratory and expiratory wheezing. No use of accessory muscles. Patient maintaining oxygen saturation greater than 92%. No chest wall tenderness is noted on palpation or with deep breathing. CARDIOVASCULAR: Regular rate and rhythm. S1 and S2 noted. No systolic or diastolic murmur auscultated. No JVD noted. No S3 or S4 noted. GASTROINTESTINAL: No distention noted. Abdomen soft and round. Normal active bowel sounds auscultated x 4 quadrants. No pain or tenderness noted upon palpation. INTEGUMENTARY: No cyanosis. No jaundice. No rashes noted. No cellulitis noted. EXTREMITIES: 2+ peripheral pulses. No evidence of peripheral edema. No calf tenderness noted. NEUROLOGIC: Cranial nerves II-XII intact. PSYCHIATRIC: Awake, alert, and oriented X 3. Appropriate affect. Intact judgement and insight. - Labs CBC & Chem 7: 01/01/18 06:16 01/01/18 06:16 Labs: Abnormal Lab Results - Last 24 Hours (Table) 01/02/18 01/02/18 01/02/18 Range/Units 11:54 17:16 20:57 POC Glucose (mg/dL) 124 H 107 H 149 H (75-99) mg/dL 01/03/18 Range/Units 07:09 POC Glucose (mg/dL) 136 H (75-99) mg/dL Microbiology - Last 24 Hours (Table) 01/01/18 01:25 Gram Stain - Final Sputum Sputum Culture - Final 12/31/17 10:46 Blood Culture - Preliminary Blood No Growth after 48 hours Assessment and Plan Plan: ASSESSMENT: Acute exacerbation of chronic obstructive pulmonary disease Left lower lobe pneumonia History of obstructive sleep apnea Essential hypertension Chronic back and neck pain, sees Dr. Trammell outpatient for pain management Generalized anxiety disorder Depression Bipolar disorder Obesity: BMI 35.6 PLAN: Pulmonary on consult. Appreciate recommendations and input Continue antibiotics Continue IV steroids and nebulizer treatments Home meds as appropriate Monitor labs GI prophylaxis: Pepcid 20 mg daily DVT prophylaxis: Heparin 5000 units subcu every 12 hours Monitor vital signs and address as appropriate Discharge planning: Patient to return home when stable Further recommendations pending patient's course Nurse practitioner note has been reviewed by physician. Signing provider agrees with the documented findings, assessment, and plan of care.
--- NOTE | 2018-01-03 15:22 | CT ---
EXAMINATION TYPE: CT chest wo con DATE OF EXAM: 01/03/2018 COMPARISON: 07/20/2017 HISTORY: Pneumonia, cough CT DLP: 836.[address] of the chest was performed with lung and mediastinal window settings submitted. The la ck of contrast limits evaluation of the vascular, mediastinal and parenchymal structures including th e upper abdomen. LUNGS: Left lower lobe airspace consolidation measuring 6.2 x 3.0 cm with air bronchograms felt to re flect pneumonia or atypical pneumonia in the appropriate clinical setting. Additional reticulonodular infiltrates seen throughout the right upper lobe, portions of the left lower lobe as well as the low er lobes bilaterally. More patchy confluent infiltrate right lower lobe. No distinct mass appreciated . Follow-up until resolution however is advised. MEDIASTINUM/YAMILETH: Thoracic aorta is of normal caliber with limited evaluation given lack of contrast . The heart is not enlarged. No evidence for mediastinal mass. No lymph nodes greater than 1cm. UPPER ABDOMEN: No significant abnormality is seen. OTHER: No significant other abnormality. IMPRESSION: 1. Findings felt to reflect pneumonia or atypical pneumonia. Correlate clinically and short-term prog ress studies are advised.
[2018-01-03 17:12] LABS: Glucose,Whole Blood 135 mg/dL (75-99)
[2018-01-03 21:13] LABS: Glucose,Whole Blood 166 mg/dL (75-99)
[2018-01-04] MEDS: methylPREDNISolone SOD SUCCI 125 MG/2 ML VIAL IV SCH ×5 (00:04→23:34)
[2018-01-04] MEDS: PIPERACILLIN-TAZOBACTAM 3.375 GM in DEXTROSE/WATER 1 50ML.BAG IVPB SCH ×4 (00:04→23:34)
[2018-01-04] MEDS: SODIUM CHLORIDE 0.9% 1,000 ML IV SCH ×3 (00:05→17:06)
[2018-01-04] MEDS: HYDROcodone/APAP 10-325MG 1 EACH TAB PO PRN ×2 (02:23→08:25)
[2018-01-04] MEDS: IPRATROPIUM-ALBUTEROL 3 ML NEB INHALATION PRN (03:41)
[2018-01-04 07:18] LABS: Glucose,Whole Blood 135 mg/dL (75-99)
[2018-01-04] MEDS: BUDESONIDE 0.5 MG/2 ML NEBU INHALATION SCH ×2 (07:18→20:13)
[2018-01-04] MEDS: IPRATROPIUM-ALBUTEROL 3 ML NEB INHALATION SCH ×4 (07:18→20:13)
[2018-01-04] MEDS: INSULIN ASPART 100 UNIT/ML 1 ML 10 ML VIAL SQ SCH ×4 (07:33→21:03)
[2018-01-04] MEDS: cefTRIAXone IN SWFI 1,000 MG/10 ML SYRINGE IVP SCH (08:25)
[2018-01-04] MEDS: HEPARIN SODIUM,PORCINE 5,000 UNIT/ML 1 ML VIAL SQ SCH ×2 (08:25→21:03)
[2018-01-04] MEDS: FAMOTIDINE 20 MG TAB PO SCH (08:25)
[2018-01-04] MEDS: DESVENLAFAXINE SUCCINATE 50 MG TAB.ER.24H PO SCH (08:26)
[2018-01-04] MEDS: MONTELUKAST 10 MG TAB PO SCH (08:26)
[2018-01-04] MEDS: hydrALAZINE HCL 25 MG TAB PO SCH ×2 (08:26→21:02)
[2018-01-04] MEDS: amLODIPine 5 MG TAB PO SCH (08:26)
[2018-01-04] MEDS: LURASIDONE 40 MG TAB PO SCH (08:26)
[2018-01-04] MEDS: GABAPENTIN 100 MG CAP PO SCH ×3 (08:26→21:03)
[2018-01-04] MEDS: ALPRAZolam 1 MG TAB PO SCH ×3 (08:26→21:02)
--- NOTE | 2018-01-04 10:25 | P.PN ---
Subjective Progress Note Date: 01/04/18 01/03/2018 Patient seen and examined at the bedside. Patient states he feels "rough" today. He reports shortness of breath and coughing. Patient remains on IV solumedral 60mg q 6 hours. Patient was febrile on admission with a temperature of 103.5. He has been afebrile since that time. Gram stain of sputum reveals few gram positive cocci, few gram-positive bacilli, and rare squamous epithelial cells. Sputum culture reveals moderate normal respiratory jose. Urine culture is negative at 18 hour francisco. Blood cultures are negative at the 48 hour francisco. He remains on 3 L nasal cannula with oxygen saturations greater than 92%. Blood pressure is stable with a last reading of 145/85. Heart rate is in 80s. 01/04/2018 Patient seen and examined at the bedside on rounds with Dr. Nuñez. Patient underwent CT of the chest yesterday which revealed left lower lobe airspace consolidation with air bronchograms felt to reflect pneumonia or atypical pneumonia. Additional reticulonodular infiltrates seen throughout the right upper lobe, portions of the left lower lobe as well as the lower lobes bilaterally. More patchy confluent infiltrate right lower lobe. Dr. Granados is following. Patient continues to complain of shortness of breath. His lungs remained coarse with scattered wheezing. He has not made much improvement since time of admission. Dr. Trammell was consulted for pain management as the patient sees him outpatient. However, he is on vacation this week and is unable to see the patient. During the patient's last admission, Dr. Trammell switched the patient's Garwood to Percocet during hospitalization. Will change patient's pain medications to Percocet. Patient will be discharged home on Garwood. Blood cultures are negative at the 72 hour francisco. Urine culture is negative. Sputum culture reveals normal respiratory jose. Objective - Vital Signs Vital signs: Vital Signs Temp 96.9 F L 01/04/18 06:07 Pulse 96 01/04/18 07:33 Resp 16 01/04/18 06:07 BP 161/72 01/04/18 06:07 Pulse Ox 97 01/04/18 07:21 Intake & Output 01/03/18 01/04/18 01/04/18 18:59 06:59 18:59 Intake Total 200 Output Total 3300 800 Balance -3100 -800 Weight 110.5 kg Intake: Oral 200 Output: Urine 3300 800 Other: # Voids 2 # Bowel Movements 0 - Exam GENERAL: This is a 62-year-old male in no apparent distress at the time of examination. Pleasant and cooperative. HEENT: Head is atraumatic, normocephalic. Pupils are equal, round, and reactive to light. Sclerae anicteric. Conjunctivae are clear. Mucus membranes of the mouth are moist. Neck is supple. RESPIRATORY: Coarse throughout with inspiratory and expiratory wheezing. No use of accessory muscles. Patient maintaining oxygen saturation greater than 92 %. No chest wall tenderness is noted on palpation or with deep breathing. CARDIOVASCULAR: Regular rate and rhythm. S1 and S2 noted. No systolic or diastolic murmur auscultated. No JVD noted. No S3 or S4 noted. GASTROINTESTINAL: No distention noted. Abdomen soft and round. Normal active bowel sounds auscultated x 4 quadrants. No pain or tenderness noted upon palpation. INTEGUMENTARY: No cyanosis. No jaundice. No rashes noted. No cellulitis noted. EXTREMITIES: 2+ peripheral pulses. No evidence of peripheral edema. No calf tenderness noted. NEUROLOGIC: Cranial nerves II-XII intact. PSYCHIATRIC: Awake, alert, and oriented X 3. Appropriate affect. Intact judgement and insight. - Labs CBC & Chem 7: 01/01/18 06:16 01/01/18 06:16 Labs: Abnormal Lab Results - Last 24 Hours (Table) 01/03/18 01/03/18 01/03/18 Range/Units 11:55 17:09 20:58 POC Glucose (mg/dL) 126 H 135 H 166 H (75-99) mg/dL 01/04/18 Range/Units 07:14 POC Glucose (mg/dL) 135 H (75-99) mg/dL Microbiology - Last 24 Hours (Table) 12/31/17 10:46 Blood Culture - Preliminary Blood No Growth after 72 hours 01/01/18 01:25 Gram Stain - Final Sputum Sputum Culture - Final Assessment and Plan Plan: ASSESSMENT: Acute exacerbation of chronic obstructive pulmonary disease Bilateral pneumonia History of obstructive sleep apnea Essential hypertension Chronic back and neck pain, sees Dr. Trammell outpatient for pain management Generalized anxiety disorder Depression Bipolar disorder Obesity: BMI 35.6 PLAN: Pulmonary on consult. Appreciate recommendations and input Continue antibiotics Continue IV steroids and nebulizer treatments Dr. Trammell is on vacation and unable to evaluate patient at this time. Will change patient's pain medications to Percocet well hospitalized. Patient to be discharged home on his Garwood. No prescription will be provided at the time of discharge Consult Dr. Vines, infectious disease Legionella and Mycoplasma Sputum culture for AFB Home meds as appropriate Monitor labs GI prophylaxis: Pepcid 20 mg daily DVT prophylaxis: Heparin 5000 units subcu every 12 hours Monitor vital signs and address as appropriate Discharge planning: Patient to return home when stable Further recommendations pending patient's course Nurse practitioner note has been reviewed by physician. Signing provider agrees with the documented findings, assessment, and plan of care.
[2018-01-04] MEDS: oxyCODONE-APAP 10-325MG 1 EACH TAB PO PRN ×3 (12:16→21:02)
[2018-01-04] MEDS: LEVOFLOXACIN 750 MG TAB PO SCH (12:18)
[2018-01-04 13:04] LABS: Glucose,Whole Blood 118 mg/dL (75-99)
[2018-01-04 17:25] LABS: Glucose,Whole Blood 91 mg/dL (75-99)
--- NOTE | 2018-01-04 17:43 | P.PN ---
Subjective Progress Note Date: 01/04/18 Principal diagnosis: By basilar basilar pneumonia, acute hypoxic restrictive failure, acute COPD exacerbation, morbid obesity, obstructive sleep apnea and sleep disorder breathing, morbid disorder depression 01/04/2018, patient seen eval examined during the rounds still have cough congestion back pain is slightly better patient unable to produce any sputum patient underwent computed tomography scan of the chest which I have reviewed dated care plan discussed with the patient as well as primary service at length , he skin chest revealed dense consolidation in the left lower lobe also some patchy infiltrate on the left upper lobe as well as the right lower lobe were seen, patient denies any hemoptysis, computed tomography scan finding reviewed with the patient he agrees for bronchoscopy, there is a history of respiratory failure in the past x-ray details are not available I've asked anesthesia to evaluate but overall it appears to be related to sleep apnea 01/03/2018, patient seen eval examined during the rounds clinically patient is still not doing very well is still have intermittent cough congestion and thick purulent sputum production the chest x-ray performed January 01 reviewed is still showing left lower lobe infiltrate which appears to be non-resolving patient remains on broad-spectrum antibiotics with vancomycin and Zosyn, culture results and reports are reviewed no significant predominance of any organism has been noted 62-year-old male with extensive history of severe COPD emphysema and chronic persistent asthma of severe category, this patient has been admitted into the hospital with a one-day history of increasing difficulty in breathing cough and greenish sputum production patient was recently discharged 2 days ago with the in stable condition however patient was doing okay for a day until system symptoms relapse and decided to come into the hospital for further evaluation he has been evaluated in the emergency department chest x-ray revealed worsening of left lower lobe infiltrate as well as right medial basilar atelectasis, patient is admitted to hospital for IV antibiotics breathing treatments and steroids Objective - Vital Signs Vital signs: Vital Signs Temp 98.1 F 01/04/18 15:00 Pulse 97 01/04/18 16:07 Resp 16 01/04/18 15:24 BP 162/82 01/04/18 15:00 Pulse Ox 97 01/04/18 15:00 Intake & Output 01/03/18 01/04/18 01/04/18 18:59 06:59 18:59 Intake Total 200 200 Output Total 3300 800 1200 Balance -3100 -800 -1000 Weight 110.5 kg Intake: Oral 200 200 Output: Urine 3300 800 1200 Other: # Voids 2 # Bowel Movements 0 - Exam Constitutional General appearance: cooperative, mild distress, morbidly obese, obese - EENT Eyes: EOMI, PERRLA, normal appearance ENT: normal oropharynx Ears: bilateral: normal - Neck Carotids: bilateral: upstroke normal, bruit absent Thyroid: bilateral: normal size - Respiratory Respiratory: bilateral: diminished, wheezing (Bilateral inspiratory and expiratory), prolonged expiration, negative: CTA, dullness, rales - Cardiovascular Rhythm: regular Heart sounds: normal: S1, S2 - Gastrointestinal General gastrointestinal: distended, soft - Integumentary Integumentary: normal, normal turgor - Neurologic Neurologic: CNII-XII intact - Musculoskeletal Musculoskeletal: gait normal, generalized weakness, strength equal bilaterally - Psychiatric Psychiatric: A&O x's 3, appropriate affect, intact judgment & insight - Labs CBC & Chem 7: 01/01/18 06:16 01/01/18 06:16 Labs: Abnormal Lab Results - Last 24 Hours (Table) 01/03/18 01/04/18 01/04/18 Range/Units 20:58 07:14 12:43 POC Glucose (mg/dL) 166 H 135 H 118 H (75-99) mg/dL Microbiology - Last 24 Hours (Table) 12/31/17 10:46 Blood Culture - Preliminary Blood No Growth after 96 hours Assessment and Plan Assessment: Bilateral lower lobe and left upper lobe patchy infiltrate worsening pneumonia likely appeared to be mixed bacterial and/or or gram-negative related patient has been appropriately placed on broad-spectrum antibiotics with Levaquin and Zosyn Non-resolving persistent left lower lobe infiltrate with negative cultures Acute COPD exacerbation Obstructive sleep apnea, refused and not using CPAP machine Severe morbid obesity Chronic persistent severe asthma Chronic pain syndrome Mood disorder and depression Plan: Broad-spectrum antibiotic Breathing treatments IV steroids Deep breathing exercise incentive spirometry Sputum for Gram stain and culture results and report reviewed Reviewed computed tomography scan of the chest without IV dye, persistent bilateral more so on the left side compared to right side lower lobe infiltrate , along with patchy left upper lobe filtrate Etiology is not clear may be neoplastic processes versus unusual bacterial infection we'll proceed with bronchoscopy and possibly lung biopsy procedures side effect alternate event complication explained to the patient, related to history of respiratory failure in the past I have asked anesthesia to evaluate the patient as well Further recommendations pending plan of care as per clinical response of the patient and finding on above-mentioned test results and report Time with Patient: Greater than 30
--- NOTE | 2018-01-04 19:44 | P.CONS ---
History of Present Illness - Reason for Consult Consult date: 01/04/18 - Chief Complaint Shortness of breath - History of Present Illness 62-year-old male who has a known history of underlying lung disease and chronic pain relates to a several-day history of increasing shortness of breath cough minimal sputum production and feeling very poorly. Is related time of his presentation his temperature was 103. The patient relates that over the last many months she's been having ongoing difficulties with his pulmonary status. He follows with his dairy machine operator farmworker Dr. Granados. Despite multiple courses of antibiotic therapy interventions he remains ill and now has a marked worsening of his pulmonary status with high-grade fever. Imaging studies revealed evidence of multifocal pneumonia and with this the infectious diseases consultation was requested. The patient relates he is feeling slightly better this afternoon and that his fever has improved he still is short of breath, he has significant sputum production at times but no hemoptysis. He relates that at home he was having fever with chills but no night sweats this had no significantly weight loss. Review of Systems HEENT:Denies headache or acute visual change. Denies sinus or mouth discomforts. Denies neck stiffness or pain. Denies significant oral cavity pain. Denies difficulty on swallowing. Lungs: As per the HPI Cardiovascular: Severe shortness of breath with cough, no chest pain, does have dyspnea on exertion, no syncope Gastrointestinal:Denies nausea, vomiting, diarrhea, constipation, hematemesis, melena, hematochezia. No no significant change of bowel habit noticed. Musculoskeletal: denies significant myalgias or arthralgias. No new joint swelling. Denies new back pain. Skin: Denies new rash or lesions. No new ulcers or wounds are related.. Neuro: Denies headache or visual change. Denies any new onset weakness or difficulty with ambulation. Denies falls or seizures. Psychiatric:Denies anxiety or depression. Endocrine: Progressive fatigue and has gained some weight Past Medical History Past Medical History: Atrial Flutter, Asthma, Chest Pain / Angina, COPD, GERD/ Reflux, Hypertension, Osteoarthritis (OA), Pneumonia, Sleep Apnea/CPAP/BIPAP Additional Past Medical History / Comment(s): Chronic neck and back pain-sees Dr. Trammell, CELE without device, RLS, shingles. History of Any Multi-Drug Resistant Organisms: None Reported Past Surgical History: Adenoidectomy, Bowel Resection, Cholecystectomy Additional Past Surgical History / Comment(s): Uvulectomy, bowel resection for large polyps, colonoscopy with polypectomies, nasal surgery x 2, bronchoscopy with lung bx, pain clinic procedures. Past Anesthesia/Blood Transfusion Reactions: Previous Problems w/ Anesthesia, Motion Sickness Additional Past Anesthesia/Blood Transfusion Reaction / Comm: states "during procedure of checking something on my left lung,I turned blue and I was brought right back out anesthesia and proc was cancelled". clausterphobia Additional Psychological History / Comment(s): Single and lives independently. 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 No animal exposures. He has stopped smoking. He has a history of heavy alcohol use but that's been many years. Denies recreational drug use Smoking Status: Former smoker Past Alcohol Use History: Heavy - Past Family History Mother Family Medical History: Asthma Additional Family Medical History / Comment(s): at age 62 Father Family Medical History: CVA/TIA Additional Family Medical History / Comment(s): at age 90 Medications and Allergies Home Medications and Allergies Comment(s): Current Medications Albuterol/Ipratropium (Duoneb 0.5 Mg-3 Mg/3 Ml Soln) 3 ml INHALATION RT-QID [facility] Last Admin: 01/04/18 15:54 Dose: 3 ml Albuterol/Ipratropium (Duoneb 0.5 Mg-3 Mg/3 Ml Soln) 3 ml INHALATION RT-Q4H PRN PRN Reason: shortness of breath Last Admin: 01/04/18 03:41 Dose: 3 ml Alprazolam (Xanax) 1 mg PO TID [facility] Last Admin: 01/04/18 17:05 Dose: 1 mg Amlodipine Besylate (Norvasc) 5 mg PO QAM [facility] Last Admin: 01/04/18 08:26 Dose: 5 mg Benzocaine/Menthol (Cepacol Lozenge) 1 each MUCOUS MEM Q1HR PRN PRN Reason: Sore Throat Budesonide (Pulmicort) 0.5 mg INHALATION RT-BID [facility] Last Admin: 01/04/18 07:18 Dose: 0.5 mg Ceftriaxone Sodium (Rocephin) 1,000 mg IVP Q24HR [facility] Last Admin: 01/04/18 08:25 Dose: 1,000 mg Desvenlafaxine Succinate (Pristiq Er) 100 mg PO DAILY [facility] Last Admin: 01/04/18 08:26 Dose: 100 mg Famotidine (Pepcid) 20 mg PO DAILY [facility] Last Admin: 01/04/18 08:25 Dose: 20 mg Gabapentin (Neurontin) 100 mg PO TID [facility] Last Admin: 01/04/18 17:05 Dose: 100 mg Guaifenesin (Mucinex) 600 mg PO Q12HR PRN PRN Reason: Cough Guaifenesin/Dextromethorphan (Robitussin Dm) 10 ml PO Q6H PRN PRN Reason: Cough Heparin Sodium (Porcine) (Heparin) 5,000 unit SQ Q12HR [facility] Last Admin: 01/04/18 08:25 Dose: 5,000 unit Hydralazine HCl (Apresoline) 25 mg PO BID [facility] Last Admin: 01/04/18 08:26 Dose: 25 mg Piperacillin/Tazobactam/ (Dextrose 3.375 gm/ IV Solution) 50 mls @ 12.5 mls/hr IVPB Q8HR [facility] Stop: 01/10/18 00:01 Last Admin: 01/04/18 17:00 Dose: 12.5 mls/hr Sodium Chloride (Saline 0.9%) 1,000 mls @ 100 mls/hr IV .Q10H [facility] Last Admin: 01/04/18 17:06 Dose: 100 mls/hr Insulin Aspart (Novolog) 0 unit SQ ACHS [facility] PRN Reason: Protocol Last Admin: 01/04/18 17:30 Dose: Not Given Levofloxacin (Levaquin) 750 mg PO Q24H [facility] Stop: 01/13/18 13:01 Last Admin: 01/04/18 12:18 Dose: 750 mg Lurasidone HCl (Latuda) 20 mg PO DAILY [facility] Last Admin: 01/04/18 08:26 Dose: 20 mg Methylprednisolone Sodium Succinate (Solu-Medrol) 60 mg IV Q6HR [facility] Last Admin: 01/04/18 17:06 Dose: 60 mg Miscellaneous Information (Pneumonia Protocol Utilized) 1 each PO ONCE PRN PRN Reason: Per Protocol Montelukast Sodium (Singulair) 10 mg PO DAILY [facility] Last Admin: 01/04/18 08:26 Dose: 10 mg Oxycodone/Acetaminophen (Percocet 10-325) 1 each PO Q4H PRN PRN Reason: Pain Last Admin: 01/04/18 17:00 Dose: 1 each Home Medications Medication Instructions Recorded Confirmed Type Montelukast [Singulair] 10 mg PO DAILY 03/16/14 12/31/17 History amLODIPine [Norvasc] 5 mg PO QAM 07/05/14 12/31/17 History ALPRAZolam [Xanax] 1 mg PO TID 09/20/15 12/31/17 History Fluticasone/Vilanterol [Breo 1 puff INHALATION RT-DAILY 07/16/16 12/31/17 History Ellipta 100-25 Mcg Inhaler] Desvenlafaxine [Pristiq ER] 100 mg PO DAILY 09/23/16 12/31/17 History Umeclidinium [place] [Incruse 1 puff INHALATION RT-DAILY 10/08/16 12/31/17 History Ellipta] Hydrocodone/Acetaminophen [[place] 1 tab PO QID PRN 11/06/16 12/31/17 History 10-325] Albuterol Inhaler [Ventolin Hfa 2 puff INHALATION RT-QID PRN 05/28/17 12/31/17 History Inhaler] Famotidine [Pepcid] 20 mg PO DAILY 05/28/17 12/31/17 History Lurasidone HCl [Latuda] 20 mg PO DAILY 06/27/17 12/31/17 History Gabapentin [Neurontin] 100 mg PO TID #21 cap 07/07/17 12/31/17 Rx hydrALAZINE HCL [Apresoline] 25 mg PO BID #60 tab 11/20/17 12/31/17 Rx Benzocaine/Menthol Lozeng [Cepacol 1 each MUCOUS MEM Q1HR PRN #30 12/30/1712/31 Rx lozenge] lozenge Levofloxacin [Levaquin] 500 mg PO DAILY 7 Days #7 tab 12/30/17 12/31/17 Rx guaiFENesin [Mucinex] 600 mg PO Q12HR PRN #30 tab 12/30/17 12/31/17 Rx guaiFENesin-DM 100-10MG/5ML 10 ml PO Q6H PRN #30 cup 05/31/18 06/01/18 Rx [Robitussin DM] predniSONE See Taper PO DIRECTED #30 tab 12/30/17 12/31/17 Rx Allergies Allergy/AdvReac Type Severity Reaction Status Date / Time peanut Allergy alg testing Verified 12/31/17 10:26 pollen extracts Allergy Unknown Verified 12/31/17 10:26 DUST Allergy alg testing Uncoded 12/31/17 10:26 Physical Exam Vitals: Vital Signs Temp Pulse Pulse Resp BP Pulse Ox 01/04/18 16:07 97 01/04/18 15:55 94 01/04/18 15:24 16 01/04/18 15:00 98.1 F 83 16 162/82 97 01/04/18 11:31 16 01/04/18 11:17 92 01/04/18 11:08 92 01/04/18 07:55 16 01/04/18 07:33 96 01/04/18 07:21 96 97 01/04/18 06:07 96.9 F L 79 16 161/72 96 01/04/18 03:52 92 01/04/18 03:41 92 01/03/18 23:00 96.9 F L 87 18 155/96 97 Intake and Output 01/04/18 01/04/18 01/04/18 06:59 14:59 22:59 Intake Total 200 Output Total 800 1200 Balance -800 200 -1200 Intake: Oral 200 Output: Urine 800 1200 Other: # Voids 2 Weight 110.5 kg 62-year-old male who has obesity, seems still short of breath has occasional nonproductive cough HEENT: Anicteric conjunctiva are pink and moist nasal mucosa grossly intact without significant lesions, there is no thrush. Neck: The neck is supple without significant lymphadenopathy or thyromegaly. Lungs: Symmetrical air entry is noted, coarse crackles and wheezing throughout the lung pedroza no distinct bronchial sounds. No dullness or egophony. Heart: Irregular with an audible S1 and S2 no S3 soft S4 There is no significant murmur click or rub, PMI was nondisplaced. Abdomen: Obese, Positive bowel sounds soft and nontender without palpable masses or organomegaly. There was no guarding or rebound. Extremities: The upper extremities have excellent pulses they are symmetric, no significant petechiae or telangiectasia. No splinter hemorrhages were noted. The lower extremities are free from significant edema. The peripheral pulses were 2+ and symmetric. Neuro: Awake alert oriented to person place and time. There are no acute new gross focal sensory motor deficits. Results CBC & Chem 7: 01/01/18 06:16 01/01/18 06:16 Labs: Abnormal Lab Results - Last 24 Hours (Table) 01/03/18 01/04/18 01/04/18 Range/Units 20:58 07:14 12:43 POC Glucose (mg/dL) 166 H 135 H 118 H (75-99) mg/dL Microbiology - Last 24 Hours (Table) 12/31/17 10:46 Blood Culture - Preliminary Blood No Growth after 96 hours Laboratory Results WBC 6.1 k/uL (3.8-10.6) 01/01/18 06:16 RBC 4.10 m/uL (4.30-5.90) L 01/01/18 06:16 Hgb 13.9 gm/dL (13.0-17.5) 01/01/18 06:16 Hct 43.3 % (39.0-53.0) 01/01/18 06:16 MCV 105.6 fL (80.0-100.0) H 01/01/18 06:16 MCH 34.0 pg (25.0-35.0) 01/01/18 06:16 MCHC 32.2 g/dL (31.0-37.0) 01/01/18 06:16 RDW 14.2 % (11.5-15.5) 01/01/18 06:16 Plt Count 123 k/uL (150-450) L 01/01/18 06:16 Neutrophils % 86 % 01/01/18 06:16 Lymphocytes % 6 % 01/01/18 06:16 Monocytes % 5 % 01/01/18 06:16 Eosinophils % 0 % 01/01/18 06:16 Basophils % 0 % 01/01/18 06:16 Neutrophils # 5.3 k/uL (1.3-7.7) 01/01/18 06:16 Lymphocytes # 0.4 k/uL (1.0-4.8) L 01/01/18 06:16 Monocytes # 0.3 k/uL (0-1.0) 01/01/18 06:16 Eosinophils # 0.0 k/uL (0-0.7) 01/01/18 06:16 Basophils # 0.0 k/uL (0-0.2) 01/01/18 06:16 Macrocytosis Moderate 01/01/18 06:16 PT 10.1 sec (9.0-12.0) 12/31/17 10:46 INR 1.0 (<1.2) 12/31/17 10:46 APTT 19.9 sec (22.0-30.0) L 12/31/17 10:46 Sodium 144 mmol/L (137-145) 01/01/18 06:16 Potassium 4.0 mmol/L (3.5-5.1) 01/01/18 06:16 Chloride 98 mmol/L (98-107) 01/01/18 06:16 Carbon Dioxide 30 mmol/L (22-30) 01/01/18 06:16 Anion Gap 16 mmol/L 01/01/18 06:16 BUN 22 mg/dL (9-20) H 01/01/18 06:16 Creatinine 0.80 mg/dL (0.66-1.25) 01/01/18 06:16 Est GFR (CKD-EPI)AfAm >90 (>60 ml/min/1.73 sqM) 01/01/18 06:16 Est GFR (CKD-EPI)NonAf >90 (>60 ml/min/1.73 sqM) 01/01/18 06:16 Glucose 141 mg/dL (74-99) H 01/01/18 06:16 POC Glucose (mg/dL) 91 mg/dL (75-99) 01/04/18 17:18 POC Glu [employer] CHANCE Chelsea Gonzalez 01/04/18 17:[address] Glu mg/dL 114 12/31/17 10:46 Hemoglobin A1c 5.6 % (4.0-6.0) 12/31/17 10:46 Plasma Lactic Acid [place] 1.6 mmol/L (0.7-2.0) 12/31/17 10:46 Calcium 8.5 mg/dL (8.4-10.2) 01/01/18 06:16 Total Bilirubin 0.6 mg/dL (0.2-1.3) 01/01/18 06:16 AST 62 U/L (17-59) H 06/02/18 06:16 ALT 99 U/L (21-72) H 01/01/18 06:16 Alkaline Phosphatase 48 U/L (38-126) 01/01/18 06:16 Total Protein 5.8 g/dL (6.3-8.2) L 01/01/18 06:16 Albumin 3.5 g/dL (3.5-5.0) 01/01/18 06:16 Urine Color Yellow 12/31/17 10:51 Urine Appearance Clear (Clear) 12/31/17 10:51 Urine pH 6.0 (5.0-8.0) 12/31/17 10:51 Ur Specific [place] 1.019 (1.001-1.035) 12/31/17 10:51 Urine Protein 1+ (Negative) H 12/31/17 10:51 Urine Glucose (UA) Negative (Negative) 12/31/17 10:51 Urine Ketones Negative (Negative) 12/31/17 10:51 Urine Blood Moderate (Negative) H 12/31/17 10:51 Urine Nitrite Negative (Negative) 12/31/17 10:51 Urine Bilirubin Negative (Negative) 12/31/17 10:51 Urine Urobilinogen <2.0 mg/dL (<2.0) 12/31/17 10:51 Ur Leukocyte Esterase Negative (Negative) 12/31/17 10:51 Urine RBC <1 /hpf (0-5) 12/31/17 10:51 Urine WBC 1 /hpf (0-5) 12/31/17 10:51 Amorphous Sediment Rare /hpf (None) H 12/31/17 10:51 Urine Mucus Rare /hpf (None) H 12/31/17 10:51 Microbiology 12/31/17 10:46 Blood Blood Culture - Preliminary No Growth after 96 hours 01/01/18 01:25 Sputum Gram Stain - Final 01/01/18 01:25 Sputum Sputum Culture - Final 12/31/17 10:51 Urine,Voided Urine Culture - Final Chest x-ray: report reviewed CT scan - chest: report reviewed (Left lower lobe pneumonia, also infiltrate right upper lobe and right lower lobe) Assessment and Plan (1) Multifocal pneumonia Narrative/Plan: 62-year-old male presents to Hospital with progressive difficulty with his lungs and he was having increasing shortness of breath cough supraduction and then high-grade fever. Admission temperature 103 and evidence of multifocal pneumonia was noted. Antibiotic therapy has been changed per the pneumonia protocol and he failed prior antibiotics. Concern to pseudomonas or other more resistant pathogens and coffee Zosyn and Levaquin are being utilized. Evaluation for Legionella and mycoplasma are in process. I will and supportive care. He has been evaluated by his dairy machine operator farmworker and bronchoscopy likely will occur in the next short period of time. The patient relates that he is not currently drinking however he still has a quite elevated MCV and I am concerned that he has ongoing drinking, and constantly aspiration or other toxicities of the lung is of concern which bronchoscopy may further help delineate. Current antibiotics also be helpful if there is an aspiration event occurring. Continue guaifenesin to try to thin his secretions and help his cough. Current Visit: Yes Status: Acute Code(s): J18.9 - PNEUMONIA, UNSPECIFIED ORGANISM SNOMED Code(s): 974006401 (2) Acute exacerbation of chronic obstructive airways disease Current Visit: No Status: Acute Code(s): J44.1 - CHRONIC OBSTRUCTIVE PULMONARY DISEASE W (ACUTE) EXACERBATION SNOMED Code(s): 697979007 (3) Diabetes mellitus Current Visit: Yes Status: Acute Code(s): E11.9 - TYPE 2 DIABETES MELLITUS WITHOUT COMPLICATIONS SNOMED Code(s): 08405873
[2018-01-04 20:52] LABS: Glucose,Whole Blood 137 mg/dL (75-99)
[2018-01-05] MEDS: oxyCODONE-APAP 10-325MG 1 EACH TAB PO PRN ×5 (01:19→23:52)
[2018-01-05] MEDS: SODIUM CHLORIDE 0.9% 1,000 ML IV SCH ×2 (03:28→12:38)
[2018-01-05] MEDS: methylPREDNISolone SOD SUCCI 125 MG/2 ML VIAL IV SCH ×4 (06:33→23:51)
[2018-01-05] MEDS: IPRATROPIUM-ALBUTEROL 3 ML NEB INHALATION SCH ×4 (07:14→19:55)
[2018-01-05] MEDS: BUDESONIDE 0.5 MG/2 ML NEBU INHALATION SCH ×2 (07:14→19:55)
[2018-01-05 07:23] LABS: Glucose,Whole Blood 123 mg/dL (75-99)
[2018-01-05] MEDS: INSULIN ASPART 100 UNIT/ML 1 ML 10 ML VIAL SQ SCH ×4 (07:36→21:16)
[2018-01-05] MEDS: cefTRIAXone IN SWFI 1,000 MG/10 ML SYRINGE IVP SCH (08:57)
[2018-01-05] MEDS: ALPRAZolam 1 MG TAB PO SCH ×3 (08:57→20:55)
[2018-01-05] MEDS: PIPERACILLIN-TAZOBACTAM 3.375 GM in DEXTROSE/WATER 1 50ML.BAG IVPB SCH ×3 (08:57→23:51)
[2018-01-05] MEDS: amLODIPine 5 MG TAB PO SCH (08:58)
[2018-01-05] MEDS: hydrALAZINE HCL 25 MG TAB PO SCH ×2 (08:58→20:52)
[2018-01-05] MEDS: GABAPENTIN 100 MG CAP PO SCH ×3 (08:59→20:52)
[2018-01-05] MEDS: HEPARIN SODIUM,PORCINE 5,000 UNIT/ML 1 ML VIAL SQ SCH ×2 (08:59→20:52)
[2018-01-05 10:05] LABS: Basophils % (A) 0 %; Eosinophils % (A) 0 %; HCT 44.4 % (39.0-53.0); HGB 14.6 gm/dL (13.0-17.5); Lymphocytes # (A) 0.4 k/uL (1.0-4.8); Lymphocytes % (A) 5 %; MCH 33.8 pg (25.0-35.0); MCHC 32.8 g/dL (31.0-37.0); Macrocytosis Slight; Monocytes # (A) 0.2 k/uL (0-1.0); Monocytes % (A) 2 %; Neutrophils # (A) 7.5 k/uL (1.3-7.7); Neutrophils % (A) 92 %; Platelet Count 155 k/uL (150-450); RBC 4.31 m/uL (4.30-5.90); RDW 13.6 % (11.5-15.5); WBC 8.2 k/uL (3.8-10.6)
[2018-01-05 10:18] LABS: ALT 198 U/L (21-72); AST 88 U/L (17-59); Albumin 3.7 g/dL (3.5-5.0); Alkaline Phosphatase 64 U/L (38-126); Anion Gap 10 mmol/L; Blood Urea Nitrogen 26 mg/dL (9-20); Calcium 8.7 mg/dL (8.4-10.2); Carbon Dioxide 35 mmol/L (22-30); Chloride 95 mmol/L (98-107); Glucose 108 mg/dL (74-99); Potassium 4.3 mmol/L (3.5-5.1); Sodium 140 mmol/L (137-145); Total Bilirubin 0.9 mg/dL (0.2-1.3); Total Protein 6.1 g/dL (6.3-8.2)
--- NOTE | 2018-01-05 10:56 | P.PN ---
Subjective Progress Note Date: 01/05/18 01/03/2018 Patient seen and examined at the bedside. Patient states he feels "rough" today. He reports shortness of breath and coughing. Patient remains on IV solumedral 60mg q 6 hours. Patient was febrile on admission with a temperature of 103.5. He has been afebrile since that time. Gram stain of sputum reveals few gram positive cocci, few gram-positive bacilli, and rare squamous epithelial cells. Sputum culture reveals moderate normal respiratory jose. Urine culture is negative at 18 hour francisco. Blood cultures are negative at the 48 hour francisco. He remains on 3 L nasal cannula with oxygen saturations greater than 92%. Blood pressure is stable with a last reading of 145/85. Heart rate is in 80s. 01/04/2018 Patient seen and examined at the bedside on rounds with Dr. Nuñez. Patient underwent CT of the chest yesterday which revealed left lower lobe airspace consolidation with air bronchograms felt to reflect pneumonia or atypical pneumonia. Additional reticulonodular infiltrates seen throughout the right upper lobe, portions of the left lower lobe as well as the lower lobes bilaterally. More patchy confluent infiltrate right lower lobe. Dr. Granados is following. Patient continues to complain of shortness of breath. His lungs remained coarse with scattered wheezing. He has not made much improvement since time of admission. Dr. Trammell was consulted for pain management as the patient sees him outpatient. However, he is on vacation this week and is unable to see the patient. During the patient's last admission, Dr. Trammell switched the patient's Romayor to Percocet during hospitalization. Will change patient's pain medications to Percocet. Patient will be discharged home on Romayor. Blood cultures are negative at the 72 hour francisco. Urine culture is negative. Sputum culture reveals normal respiratory jose. 01/05/2018 Patient seen and examined at the bedside. Patient states he continues to feel short of breath. He also reports frequent coughing with sputum production. He is scheduled for bronch today with Dr. Granados. Dr Vines was consulted and evaluated patient yesterday. He remains on ceftriaxone, Levaquin, and Zosyn. Legionella and Mycoplasma are pending. He denies chest pain or pressure. Denies nausea or vomiting. Vital signs are stable. He is afebrile. Objective - Vital Signs Vital signs: Vital Signs Temp 97.1 F L 01/05/18 07:43 Pulse 75 01/05/18 07:43 Resp 16 01/05/18 07:43 BP 155/95 01/05/18 07:43 Pulse Ox 93 L 01/05/18 07:00 Intake & Output 01/04/18 01/05/18 01/05/18 18:59 06:59 18:59 Intake Total 200 Output Total 1200 800 Balance -1000 -800 Weight 112.5 kg Intake: Oral 200 Output: Urine 1200 800 Other: Voiding Method Toilet Urinal # Voids 1 - Exam GENERAL: This is a 62-year-old male in no apparent distress at the time of examination. Pleasant and cooperative. HEENT: Head is atraumatic, normocephalic. Pupils are equal, round, and reactive to light. Sclerae anicteric. Conjunctivae are clear. Mucus membranes of the mouth are moist. Neck is supple. RESPIRATORY: Coarse throughout with expiratory wheezing. No use of accessory muscles. Patient maintaining oxygen saturation greater than 92%. No chest wall tenderness is noted on palpation or with deep breathing. CARDIOVASCULAR: Regular rate and rhythm. S1 and S2 noted. No systolic or diastolic murmur auscultated. No JVD noted. No S3 or S4 noted. GASTROINTESTINAL: No distention noted. Abdomen soft and round. Normal active bowel sounds auscultated x 4 quadrants. No pain or tenderness noted upon palpation. INTEGUMENTARY: No cyanosis. No jaundice. No rashes noted. No cellulitis noted. EXTREMITIES: 2+ peripheral pulses. No evidence of peripheral edema. No calf tenderness noted. NEUROLOGIC: Cranial nerves II-XII intact. PSYCHIATRIC: Awake, alert, and oriented X 3. Appropriate affect. Intact judgement and insight. - Labs CBC & Chem 7: 01/05/18 08:50 01/05/18 08:50 Labs: Abnormal Lab Results - Last 24 Hours (Table) 01/04/18 01/04/18 01/05/18 Range/Units 12:43 20:50 07:12 MCV (80.0-100.0) fL Lymphocytes # (1.0-4.8) k/uL POC Glucose (mg/dL) 118 H 137 H 123 H (75-99) mg/dL 01/05/18 Range/Units 08:50 MCV 103.0 H (80.0-100.0) fL Lymphocytes # 0.4 L (1.0-4.8) k/uL POC Glucose (mg/dL) (75-99) mg/dL Microbiology - Last 24 Hours (Table) 12/31/17 10:46 Blood Culture - Preliminary Blood No Growth after 96 hours Assessment and Plan Plan: ASSESSMENT: Acute exacerbation of chronic obstructive pulmonary disease Bilateral pneumonia History of obstructive sleep apnea Essential hypertension Chronic back and neck pain, sees Dr. Trammell outpatient for pain management Generalized anxiety disorder Depression Bipolar disorder Obesity: BMI 35.6 PLAN: Pulmonary on consult. Appreciate recommendations and input Patient to undergo bronchoscopy today Continue antibiotics Continue IV steroids and nebulizer treatments Dr. Trammell is on vacation and unable to evaluate patient at this time. Will change patient's pain medications to Percocet well hospitalized. Patient to be discharged home on his Romayor. No prescription will be provided at the time of discharge Dr. Vines, infectious disease, on consult. Appreciate recommendations and input Await results of Legionella and Mycoplasma Home meds as appropriate Monitor labs GI prophylaxis: Pepcid 20 mg daily DVT prophylaxis: Heparin 5000 units subcu every 12 hours Monitor vital signs and address as appropriate Discharge planning: Patient to return home when stable Further recommendations pending patient's course Nurse practitioner note has been reviewed by physician. Signing provider agrees with the documented findings, assessment, and plan of care.
[2018-01-05 12:46] LABS: Glucose,Whole Blood 101 mg/dL (75-99)
[2018-01-05] MEDS ORDERED: IV FLUID CONTINUATION 300 ML IV ONE (14:46)
[2018-01-05] MEDS ORDERED: MIDAZOLAM 2 MG/2 ML VIAL ONE (14:48)
[2018-01-05] MEDS ORDERED: KETAMINE 10 MG/ML 20 ML VIAL ONE (14:48)
[2018-01-05] MEDS ORDERED: GLYCOPYRROLATE 0.2 MG/ML 2 ML VIAL ONE (14:48)
[2018-01-05] MEDS ORDERED: fentaNYL (PF) 50 MCG/ML 2 ML AMP ONE (14:48)
[2018-01-05] MEDS ORDERED: PROPOFOL 10 MG/ML 20 ML VIAL IV ONE (14:48)
[2018-01-05] MEDS ORDERED: LIDOCAINE 1% INJ 10MG/ML (20 ML MDV) ONE (14:48)
--- NOTE | 2018-01-05 15:27 | P.PN ---
Subjective Progress Note Date: 01/05/18 Principal diagnosis: By basilar basilar pneumonia, acute hypoxic restrictive failure, acute COPD exacerbation, morbid obesity, obstructive sleep apnea and sleep disorder breathing, morbid disorder depression 01/05/2018, patient seen eval examined during the rounds clinically patient is not much changes still have significant cough complaining of the pain predominantly in the back some on the chest as well I reviewed the computed tomography scan finding with the patient care plan discussed with the primary service patient is being planned for bronchoscopy and transbronchial lung biopsy of the left lower lobe to rule out unusual bacterial infection versus noninfectious causes like bronchiolitis occlusive pneumonia procedure explained to the patient. Risk alternative and complication 01/04/2018, patient seen eval examined during the rounds still have cough congestion back pain is slightly better patient unable to produce any sputum patient underwent computed tomography scan of the chest which I have reviewed dated care plan discussed with the patient as well as primary service at length , he skin chest revealed dense consolidation in the left lower lobe also some patchy infiltrate on the left upper lobe as well as the right lower lobe were seen, patient denies any hemoptysis, computed tomography scan finding reviewed with the patient he agrees for bronchoscopy, there is a history of respiratory failure in the past x-ray details are not available I've asked anesthesia to evaluate but overall it appears to be related to sleep apnea 01/03/2018, patient seen eval examined during the rounds clinically patient is still not doing very well is still have intermittent cough congestion and thick purulent sputum production the chest x-ray performed January 01 reviewed is still showing left lower lobe infiltrate which appears to be non-resolving patient remains on broad-spectrum antibiotics with vancomycin and Zosyn, culture results and reports are reviewed no significant predominance of any organism has been noted 62-year-old male with extensive history of severe COPD emphysema and chronic persistent asthma of severe category, this patient has been admitted into the hospital with a one-day history of increasing difficulty in breathing cough and greenish sputum production patient was recently discharged 2 days ago with the in stable condition however patient was doing okay for a day until system symptoms relapse and decided to come into the hospital for further evaluation he has been evaluated in the emergency department chest x-ray revealed worsening of left lower lobe infiltrate as well as right medial basilar atelectasis, patient is admitted to hospital for IV antibiotics breathing treatments and steroids Objective - Vital Signs Vital signs: Vital Signs Temp 97.1 F L 01/05/18 07:43 Pulse 92 01/05/18 11:18 Resp 16 01/05/18 07:43 BP 155/95 01/05/18 07:43 Pulse Ox 93 L 01/05/18 07:00 Intake & Output 01/04/18 01/05/18 01/05/18 18:59 06:59 18:59 Intake Total 200 Output Total 1200 800 400 Balance -1000 -800 -400 Weight 112.5 kg Intake: Oral 200 Output: Urine 1200 800 400 Other: Voiding Method Toilet Urinal # Voids 1 - Exam Constitutional General appearance: cooperative, mild distress, morbidly obese, obese - EENT Eyes: EOMI, PERRLA, normal appearance ENT: normal oropharynx Ears: bilateral: normal - Neck Carotids: bilateral: upstroke normal, bruit absent Thyroid: bilateral: normal size - Respiratory Respiratory: bilateral: diminished, wheezing (Bilateral inspiratory and expiratory), prolonged expiration, negative: CTA, dullness, rales - Cardiovascular Rhythm: regular Heart sounds: normal: S1, S2 - Gastrointestinal General gastrointestinal: distended, soft - Integumentary Integumentary: normal, normal turgor - Neurologic Neurologic: CNII-XII intact - Musculoskeletal Musculoskeletal: gait normal, generalized weakness, strength equal bilaterally - Psychiatric Psychiatric: A&O x's 3, appropriate affect, intact judgment & insight - Labs CBC & Chem 7: 01/05/18 08:50 01/05/18 08:50 Labs: Abnormal Lab Results - Last 24 Hours (Table) 01/04/18 01/05/18 01/05/18 Range/Units 20:50 07:12 08:50 MCV 103.0 H (80.0-100.0) fL Lymphocytes # 0.4 L (1.0-4.8) k/uL Chloride (98-107) mmol/L Carbon Dioxide (22-30) mmol/L BUN (9-20) mg/dL Glucose (74-99) mg/dL POC Glucose (mg/dL) 137 H 123 H (75-99) mg/dL AST (17-59) U/L ALT (21-72) U/L Total Protein (6.3-8.2) g/dL 01/05/18 01/05/18 Range/Units 08:50 12:44 MCV (80.0-100.0) fL Lymphocytes # (1.0-4.8) k/uL Chloride 95 L (98-107) mmol/L Carbon Dioxide 35 H (22-30) mmol/L BUN 26 H (9-20) mg/dL Glucose 108 H (74-99) mg/dL POC Glucose (mg/dL) 101 H (75-99) mg/dL AST 88 H (17-59) U/L ALT 198 H (21-72) U/L Total Protein 6.1 L (6.3-8.2) g/dL Microbiology - Last 24 Hours (Table) 12/31/17 10:46 Blood Culture - Preliminary Blood No Growth after 120 hours Assessment and Plan Assessment: Bilateral multi lobar pneumonia, lower lobe and left upper lobe patchy infiltrate worsening pneumonia likely appeared to be mixed bacterial and/or or gram-negative related patient has been appropriately placed on broad-spectrum antibiotics with Levaquin and Zosyn, other etiologies and not liking noninfectious inflammatory processes like bronchiolitis occlusive pneumonia Non-resolving persistent left lower lobe infiltrate with negative cultures, with involvement of right lower lobe as well as portion of patchy infiltrate on left upper lobe Acute COPD exacerbation Obstructive sleep apnea, refused and not using CPAP machine Severe morbid obesity Chronic persistent severe asthma Chronic pain syndrome Mood disorder and depression Plan: Broad-spectrum antibiotic Breathing treatments IV steroids Deep breathing exercise incentive spirometry Sputum for Gram stain and culture results and report reviewed Reviewed computed tomography scan of the chest without IV dye, persistent bilateral more so on the left side compared to right side lower lobe infiltrate , along with patchy left upper lobe filtrate Etiology is not clear may be neoplastic processes versus unusual bacterial infection we'll proceed with bronchoscopy and possibly lung biopsy procedures side effect alternate event complication explained to the patient, related to history of respiratory failure in the past I have asked anesthesia to evaluate the patient as well Patient has been scheduled for bronchoscopy and transbronchial lung biopsy procedure alternative complication risks has been explained to the patient at length, patient understood and wants to proceed with it Further recommendations pending plan of care as per clinical response of the patient and finding on above-mentioned test results and report Time with Patient: Greater than 30
--- NOTE | 2018-01-05 15:32 | P.PCN ---
Date of Procedure: 01/05/18 Preoperative Diagnosis: Recurrent bilateral patchy multi lobar pneumonia Postoperative Diagnosis: As above Procedure(s) Performed: #1 bronchoscopy, #2 bronchoalveolar lavage of left lower lobe, #3 transbronchial lung biopsy of left lower lobe Surgeon: Nehemiah Granados Estimated Blood Loss (ml): 15 Condition: stable Disposition: floor Indications for Procedure: As above Operative Findings: As below Description of Procedure: Patient prepared and draped in a usual fashion fiberoptic bronchoscope was passed through the right nares the upper airway was very small with very no narrow laryngeal area the tip of the scope was passed through the vocal cords vision normal structure and function tip of the scope was advanced into the trachea the right upper lobe right middle lobe and right lower lobe inspected no endobronchial mass lesion was seen to above the scope was passed on the left side left upper lobe lingular lobe and left lower lobe was seen the airways especially on the left side have significant degree of thick mucous plugs were present along with very friable congested mucosa which was easy to bleed, hip of the scope was wedged in the left lower lobe basal segment BAL was performed followed by transbronchial biopsy utilizing fluoroscopy patient tolerated the procedure well except intermittent transient episode of desaturation and slight bleeding afterwards which was suctioned and cleaned bleeding stopped was procedure chest x-ray reviewed no pneumothorax is seen, patient tolerated the procedure well no complication noted.
--- NOTE | 2018-01-05 15:48 | XR ---
EXAMINATION TYPE: XR chest 1V portable DATE OF EXAM: 01/05/2018 COMPARISON: 01/03/2018 HISTORY: Post bronchoscopy of the left lower lobe. TECHNIQUE: Single frontal view of the chest is obtained. FINDINGS: Patchy right basilar airspace disease is reticular nodular similar to the prior. The linea r retrocardiac known airspace disease is not well appreciated on the frontal image only. No postproce dural pneumothorax is appreciated. Cardia mediastinal silhouette is enlarged. Osseous structures are intact. No sizable pleural effusion. IMPRESSION: Stable patchy right basilar opacity and poor visualization of the known retrocardiac opa city. No postprocedural pneumothorax.
--- NOTE | 2018-01-05 15:51 | FL ---
EXAMINATION TYPE: FL bronchoscopy DATE OF EXAM: 01/05/2018 COMPARISON: NONE HISTORY: Left lower lobe bronchoscopy TECHNIQUE: Fluoroscopy. FINDINGS/IMPRESSION: Fluoroscopic guidance was provided during procedure performed by Dr. Lawson. A total of 11 seconds of fluoroscopic time was utilized during the procedure and 1 spot image was a cquired demonstrating left lower lobe bronchoscope.
[2018-01-05] MEDS: FAMOTIDINE 20 MG TAB PO SCH (16:07)
[2018-01-05] MEDS: MONTELUKAST 10 MG TAB PO SCH (16:07)
[2018-01-05] MEDS: LEVOFLOXACIN 750 MG TAB PO SCH (16:08)
[2018-01-05] MEDS: DESVENLAFAXINE SUCCINATE 50 MG TAB.ER.24H PO SCH (16:08)
[2018-01-05] MEDS: LURASIDONE 40 MG TAB PO SCH (16:08)
[2018-01-05 17:38] LABS: Glucose,Whole Blood 115 mg/dL (75-99)
[2018-01-05 20:57] LABS: Glucose,Whole Blood 148 mg/dL (75-99)
--- NOTE | 2018-01-05 22:49 | P.PN ---
Subjective Progress Note Date: 01/05/18 62-year-old male who has a known history of underlying lung disease and chronic pain relates to a several-day history of increasing shortness of breath cough minimal sputum production and feeling very poorly. Is related time of his presentation his temperature was 103. The patient relates that over the last many months she's been having ongoing difficulties with his pulmonary status. He follows with his towel sewer Dr. Granados. Despite multiple courses of antibiotic therapy interventions he remains ill and now has a marked worsening of his pulmonary status with high-grade fever. Imaging studies revealed evidence of multifocal pneumonia and with this the infectious diseases consultation was requested. The patient relates he is feeling slightly better this afternoon and that his fever has improved he still is short of breath, he has significant sputum production at times but no hemoptysis. He relates that at home he was having fever with chills but no night sweats this had no significantly weight loss. 01/05/2018 patient is improving bronchoscopy has occurred. Cultures are pending. He is definitely feeling better after the bronchoscopy. Objective - Vital Signs Vital signs: Vital Signs Temp 97.3 F L 01/05/18 15:00 Pulse 92 01/05/18 20:16 Resp 16 01/05/18 16:01 BP 136/88 01/05/18 16:01 Pulse Ox 96 01/05/18 16:01 Intake & Output 01/05/18 01/05/18 01/06/18 06:59 18:59 06:59 Intake Total 200 Output Total 800 400 Balance -800 -200 Weight 112.5 kg Intake: IV 200 Output: Urine 800 400 Other: Voiding Method Toilet Urinal # Voids 1 - Exam 62-year-old male who has obesity, seems still short of breath has occasional nonproductive cough HEENT: Anicteric conjunctiva are pink and moist nasal mucosa grossly intact without significant lesions, there is no thrush. Neck: The neck is supple without significant lymphadenopathy or thyromegaly. Lungs: Symmetrical air entry is noted, coarse crackles and wheezing throughout the lung pedroza no distinct bronchial sounds. No dullness or egophony. Heart: Irregular with an audible S1 and S2 no S3 soft S4 There is no significant murmur click or rub, PMI was nondisplaced. Abdomen: Obese, Positive bowel sounds soft and nontender without palpable masses or organomegaly. There was no guarding or rebound. Extremities: The upper extremities have excellent pulses they are symmetric, no significant petechiae or telangiectasia. No splinter hemorrhages were noted. The lower extremities are free from significant edema. The peripheral pulses were 2+ and symmetric. Neuro: Awake alert oriented to person place and time. There are no acute new gross focal sensory motor deficits. - Labs CBC & Chem 7: 01/05/18 08:50 01/05/18 08:50 Labs: Abnormal Lab Results - Last 24 Hours (Table) 01/05/18 01/05/18 01/05/18 Range/Units 07:12 08:50 08:50 MCV 103.0 H (80.0-100.0) fL Lymphocytes # 0.4 L (1.0-4.8) k/uL Chloride 95 L (98-107) mmol/L Carbon Dioxide 35 H (22-30) mmol/L BUN 26 H (9-20) mg/dL Glucose 108 H (74-99) mg/dL POC Glucose (mg/dL) 123 H (75-99) mg/dL AST 88 H (17-59) U/L ALT 198 H (21-72) U/L Total Protein 6.1 L (6.3-8.2) g/dL 01/05/18 01/05/18 01/05/18 Range/Units 12:44 17:37 20:56 MCV (80.0-100.0) fL Lymphocytes # (1.0-4.8) k/uL Chloride (98-107) mmol/L Carbon Dioxide (22-30) mmol/L BUN (9-20) mg/dL Glucose (74-99) mg/dL POC Glucose (mg/dL) 101 H 115 H 148 H (75-99) mg/dL AST (17-59) U/L ALT (21-72) U/L Total Protein (6.3-8.2) g/dL Microbiology - Last 24 Hours (Table) 12/31/17 10:46 Blood Culture - Preliminary Blood No Growth after 120 hours Laboratory Results WBC 8.2 k/uL (3.8-10.6) 01/05/18 08:50 RBC 4.31 m/uL (4.30-5.90) 01/05/18 08:50 Hgb 14.6 gm/dL (13.0-17.5) 01/05/18 08:50 Hct 44.4 % (39.0-53.0) 01/05/18 08:50 MCV 103.0 fL (80.0-100.0) H 01/05/18 08:50 MCH 33.8 pg (25.0-35.0) 01/05/18 08:50 MCHC 32.8 g/dL (31.0-37.0) 01/05/18 08:50 RDW 13.6 % (11.5-15.5) 01/05/18 08:50 Plt Count 155 k/uL (150-450) 01/05/18 08:50 Neutrophils % 92 % 01/05/18 08:50 Lymphocytes % 5 % 01/05/18 08:50 Monocytes % 2 % 01/05/18 08:50 Eosinophils % 0 % 01/05/18 08:50 Basophils % 0 % 01/05/18 08:50 Neutrophils # 7.5 k/uL (1.3-7.7) 01/05/18 08:50 Lymphocytes # 0.4 k/uL (1.0-4.8) L 01/05/18 08:50 Monocytes # 0.2 k/uL (0-1.0) 01/05/18 08:50 Eosinophils # 0.0 k/uL (0-0.7) 01/05/18 08:50 Basophils # 0.0 k/uL (0-0.2) 01/05/18 08:50 Macrocytosis Slight 01/05/18 08:50 PT 10.1 sec (9.0-12.0) 12/31/17 10:46 INR 1.0 (<1.2) 12/31/17 10:46 APTT 19.9 sec (22.0-30.0) L 12/31/17 10:46 Sodium 140 mmol/L (137-145) 01/05/18 08:50 Potassium 4.3 mmol/L (3.5-5.1) 01/05/18 08:50 Chloride 95 mmol/L (98-107) L 01/05/18 08:50 Carbon Dioxide 35 mmol/L (22-30) H 01/05/18 08:50 Anion Gap 10 mmol/L 01/05/18 08:50 BUN 26 mg/dL (9-20) H 01/05/18 08:50 Creatinine 0.78 mg/dL (0.66-1.25) 01/05/18 08:50 Est GFR (CKD-EPI)AfAm >90 (>60 ml/min/1.73 sqM) 01/05/18 08:50 Est GFR (CKD-EPI)NonAf >90 (>60 ml/min/1.73 sqM) 01/05/18 08:50 Glucose 108 mg/dL (74-99) H 01/05/18 08:50 POC Glucose (mg/dL) 148 mg/dL (75-99) H 01/05/18 20:56 POC Glu Garment Worker ID Radha Pradhan 01/05/18 20:[address] Glu mg/dL 114 12/31/17 10:46 Hemoglobin A1c 5.6 % (4.0-6.0) 12/31/17 10:46 Plasma Lactic Acid [place] 1.6 mmol/L (0.7-2.0) 12/31/17 10:46 Calcium 8.7 mg/dL (8.4-10.2) 01/05/18 08:50 Total Bilirubin 0.9 mg/dL (0.2-1.3) 01/05/18 08:50 AST 88 U/L (17-59) H 01/05/18 08:50 ALT 198 U/L (21-72) H 01/05/18 08:50 Alkaline Phosphatase 64 U/L (38-126) 01/05/18 08:50 Total Protein 6.1 g/dL (6.3-8.2) L 01/05/18 08:50 Albumin 3.7 g/dL (3.5-5.0) 01/05/18 08:50 Urine Color Yellow 12/31/17 10:51 Urine Appearance Clear (Clear) 12/31/17 10:51 Urine pH 6.0 (5.0-8.0) 12/31/17 10:51 Ur Specific [place] 1.019 (1.001-1.035) 12/31/17 10:51 Urine Protein 1+ (Negative) H 12/31/17 10:51 Urine Glucose (UA) Negative (Negative) 12/31/17 10:51 Urine Ketones Negative (Negative) 12/31/17 10:51 Urine Blood Moderate (Negative) H 12/31/17 10:51 Urine Nitrite Negative (Negative) 12/31/17 10:51 Urine Bilirubin Negative (Negative) 12/31/17 10:51 Urine Urobilinogen <2.0 mg/dL (<2.0) 12/31/17 10:51 Ur Leukocyte Esterase Negative (Negative) 12/31/17 10:51 Urine RBC <1 /hpf (0-5) 12/31/17 10:51 Urine WBC 1 /hpf (0-5) 12/31/17 10:51 Amorphous Sediment Rare /hpf (None) H 12/31/17 10:51 Urine Mucus Rare /hpf (None) H 12/31/17 10:51 Microbiology 12/31/17 10:46 Blood Blood Culture - Preliminary No Growth after 120 hours 01/01/18 01:25 Sputum Gram Stain - Final 01/01/18 01:25 Sputum Sputum Culture - Final 12/31/17 10:51 Urine,Voided Urine Culture - Final Assessment and Plan (1) Multifocal pneumonia Narrative/Plan: 62-year-old male presents to Hospital with progressive difficulty with his lungs and he was having increasing shortness of breath cough supraduction and then high-grade fever. Admission temperature 103 and evidence of multifocal pneumonia was noted. Antibiotic therapy has been changed per the pneumonia protocol and he failed prior antibiotics. Concern to pseudomonas or other more resistant pathogens and coffee Zosyn and Levaquin are being utilized. Evaluation for Legionella and mycoplasma are in process. I will and supportive care. He has been evaluated by his towel sewer and bronchoscopy likely will occur in the next short period of time. The patient relates that he is not currently drinking however he still has a quite elevated MCV and I am concerned that he has ongoing drinking, and constantly aspiration or other toxicities of the lung is of concern which bronchoscopy may further help delineate. Current antibiotics also be helpful if there is an aspiration event occurring. Continue guaifenesin to try to thin his secretions and help his cough. 01/05/2018 patient has undergone bronchoscopy and is feeling better this afternoon. Is wondering about his ability to be discharged soon. At this time awaiting the analysis from the bronchoscopy, no evidence of Mycobacterium tuberculosis but could have mac infection. At this time the cultures and stains are pending including the viral analysis. Results will help determine course of discharge. Current Visit: Yes Status: Acute Code(s): J18.9 - PNEUMONIA, UNSPECIFIED ORGANISM SNOMED Code(s): 028262462 (2) Acute exacerbation of chronic obstructive airways disease Current Visit: No Status: Acute Code(s): J44.1 - CHRONIC OBSTRUCTIVE PULMONARY DISEASE W (ACUTE) EXACERBATION SNOMED Code(s): 550848506 (3) Diabetes mellitus Current Visit: Yes Status: Acute Code(s): E11.9 - TYPE 2 DIABETES MELLITUS WITHOUT COMPLICATIONS SNOMED Code(s): 97194823
[2018-01-06] MEDS: SODIUM CHLORIDE 0.9% 1,000 ML IV SCH ×2 (01:00→08:38)
[2018-01-06] MEDS: oxyCODONE-APAP 10-325MG 1 EACH TAB PO PRN ×5 (04:13→20:40)
[2018-01-06] MEDS: methylPREDNISolone SOD SUCCI 125 MG/2 ML VIAL IV SCH ×4 (06:54→23:38)
[2018-01-06 07:10] LABS: Glucose,Whole Blood 119 mg/dL (75-99)
[2018-01-06] MEDS: BUDESONIDE 0.5 MG/2 ML NEBU INHALATION SCH ×2 (07:11→19:33)
[2018-01-06] MEDS: IPRATROPIUM-ALBUTEROL 3 ML NEB INHALATION SCH ×4 (07:11→19:34)
[2018-01-06] MEDS: INSULIN ASPART 100 UNIT/ML 1 ML 10 ML VIAL SQ SCH ×4 (07:43→21:04)
[2018-01-06] MEDS: PIPERACILLIN-TAZOBACTAM 3.375 GM in DEXTROSE/WATER 1 50ML.BAG IVPB SCH ×3 (08:24→23:38)
[2018-01-06] MEDS: FAMOTIDINE 20 MG TAB PO SCH (08:25)
[2018-01-06] MEDS: ALPRAZolam 1 MG TAB PO SCH ×3 (08:25→21:06)
[2018-01-06] MEDS: amLODIPine 5 MG TAB PO SCH (08:25)
[2018-01-06] MEDS: hydrALAZINE HCL 25 MG TAB PO SCH ×2 (08:25→20:40)
[2018-01-06] MEDS: HEPARIN SODIUM,PORCINE 5,000 UNIT/ML 1 ML VIAL SQ SCH ×2 (08:26→20:40)
[2018-01-06] MEDS: GABAPENTIN 100 MG CAP PO SCH ×3 (08:26→21:06)
[2018-01-06] MEDS: MONTELUKAST 10 MG TAB PO SCH (08:26)
[2018-01-06] MEDS: LURASIDONE 40 MG TAB PO SCH (08:26)
[2018-01-06] MEDS: DESVENLAFAXINE SUCCINATE 50 MG TAB.ER.24H PO SCH (08:26)
[2018-01-06 08:38] LABS: Basophils % (A) 0 %; Eosinophils % (A) 0 %; HCT 44.8 % (39.0-53.0); HGB 14.8 gm/dL (13.0-17.5); Lymphocytes # (A) 0.6 k/uL (1.0-4.8); Lymphocytes % (A) 6 %; MCH 34.3 pg (25.0-35.0); MCHC 33.1 g/dL (31.0-37.0); MCV 103.8 fL (80.0-100.0); Macrocytosis Slight; Mean Platelet Volume 6.6; Monocytes # (A) 0.3 k/uL (0-1.0); Monocytes % (A) 3 %; Neutrophils # (A) 8.9 k/uL (1.3-7.7); Neutrophils % (A) 90 %; Platelet Count 154 k/uL (150-450); RBC 4.31 m/uL (4.30-5.90); RDW 14.1 % (11.5-15.5); WBC 9.9 k/uL (3.8-10.6)
[2018-01-06 08:54] LABS: ALT 215 U/L (21-72); AST 88 U/L (17-59); Albumin 3.7 g/dL (3.5-5.0); Alkaline Phosphatase 59 U/L (38-126); Anion Gap 13 mmol/L; Blood Urea Nitrogen 28 mg/dL (9-20); Calcium 8.4 mg/dL (8.4-10.2); Carbon Dioxide 34 mmol/L (22-30); Chloride 94 mmol/L (98-107); Glucose 115 mg/dL (74-99); Sodium 141 mmol/L (137-145)
[2018-01-06 11:17] VITALS: BMI 35.2
--- NOTE | 2018-01-06 11:36 | P.PN ---
Subjective Progress Note Date: 01/06/18 01/03/2018 Patient seen and examined at the bedside. Patient states he feels "rough" today. He reports shortness of breath and coughing. Patient remains on IV solumedral 60mg q 6 hours. Patient was febrile on admission with a temperature of 103.5. He has been afebrile since that time. Gram stain of sputum reveals few gram positive cocci, few gram-positive bacilli, and rare squamous epithelial cells. Sputum culture reveals moderate normal respiratory jose. Urine culture is negative at 18 hour francisco. Blood cultures are negative at the 48 hour francisco. He remains on 3 L nasal cannula with oxygen saturations greater than 92%. Blood pressure is stable with a last reading of 145/85. Heart rate is in 80s. 01/04/2018 Patient seen and examined at the bedside on rounds with Dr. Nuñez. Patient underwent CT of the chest yesterday which revealed left lower lobe airspace consolidation with air bronchograms felt to reflect pneumonia or atypical pneumonia. Additional reticulonodular infiltrates seen throughout the right upper lobe, portions of the left lower lobe as well as the lower lobes bilaterally. More patchy confluent infiltrate right lower lobe. Dr. Granados is following. Patient continues to complain of shortness of breath. His lungs remained coarse with scattered wheezing. He has not made much improvement since time of admission. Dr. Trammell was consulted for pain management as the patient sees him outpatient. However, he is on vacation this week and is unable to see the patient. During the patient's last admission, Dr. Trammell switched the patient's Fre[place]att to Percocet during hospitalization. Will change patient's pain medications to Percocet. Patient will be discharged home on Freistatt. Blood cultures are negative at the 72 hour francisco. Urine culture is negative. Sputum culture reveals normal respiratory jose. 01/05/2018 Patient seen and examined at the bedside. Patient states he continues to feel short of breath. He also reports frequent coughing with sputum production. He is scheduled for bronch today with Dr. Granados. Dr Vines was consulted and evaluated patient yesterday. He remains on ceftriaxone, Levaquin, and Zosyn. Legionella and Mycoplasma are pending. He denies chest pain or pressure. Denies nausea or vomiting. Vital signs are stable. He is afebrile. 01/06/2018 Patient seen and examined at the bedside on rounds with Dr. Paredes. Patient states his shortness of breath has improved slightly. Patient underwent endoscopy yesterday with Dr. Granados which revealed thick tenacious sputum and BAL was performed. Biopsy was performed. Culture of bronchial washings are currently pending. No evidence of Mycobacterium tuberculosis but patient may have a MAC infection per Dr. Vines. He remains on Zosyn and Levaquin. Patient continues to require supplemental oxygen at 3 L nasal cannula to maintain sats greater than 92%. Patient may require home oxygen at the time of discharge. The patient remains on IV steroids: 60 mg every 6 hours. The patient was questioned regarding alcohol use. Initially patient states he drinks very little alcohol. The patient does have a history of heavy alcohol abuse. His MCV has been elevated over 100. Patient then states he drinks 2 shots of whiskey daily. Patient was asked how long a fifth of alcohol will last him or how often he denies a fifth of alcohol and the patient states he purchases a fifth of whiskey every week. One fifth of alcohol is approximately 25 one-ounce shots. Patient was encouraged to decrease his alcohol intake. Objective - Vital Signs Vital signs: Vital Signs Temp 97.5 F L 01/06/18 06:00 Pulse 89 01/06/18 07:29 Resp 16 01/06/18 06:00 BP 144/89 01/06/18 06:00 Pulse Ox 93 L 01/06/18 06:00 Intake & Output 01/05/18 01/06/18 01/06/18 18:59 06:59 18:59 Intake Total 200 240 Output Total 400 Balance -200 240 Weight 111.5 kg 111.5 kg Intake: IV 200 Oral 240 Output: Urine 400 Other: Voiding Method Toilet Toilet Urinal # Voids 2 - Exam GENERAL: This is a 62-year-old male in no apparent distress at the time of examination. Pleasant and cooperative. HEENT: Head is atraumatic, normocephalic. Pupils are equal, round, and reactive to light. Sclerae anicteric. Conjunctivae are clear. Mucus membranes of the mouth are moist. Neck is supple. RESPIRATORY: Coarse throughout with expiratory wheezing. No use of accessory muscles. Patient maintaining oxygen saturation greater than 92%. No chest wall tenderness is noted on palpation or with deep breathing. CARDIOVASCULAR: Regular rate and rhythm. S1 and S2 noted. No systolic or diastolic murmur auscultated. No JVD noted. No S3 or S4 noted. GASTROINTESTINAL: No distention noted. Abdomen soft and round. Normal active bowel sounds auscultated x 4 quadrants. No pain or tenderness noted upon palpation. INTEGUMENTARY: No cyanosis. No jaundice. No rashes noted. No cellulitis noted. EXTREMITIES: 2+ peripheral pulses. No evidence of peripheral edema. No calf tenderness noted. NEUROLOGIC: Cranial nerves II-XII intact. PSYCHIATRIC: Awake, alert, and oriented X 3. Appropriate affect. Intact judgement and insight. - Labs CBC & Chem 7: 01/06/18 07:53 01/06/18 07:53 Labs: Abnormal Lab Results - Last 24 Hours (Table) 01/05/18 01/05/18 01/05/18 Range/Units 12:44 17:37 20:56 MCV (80.0-100.0) fL Neutrophils # (1.3-7.7) k/uL Lymphocytes # (1.0-4.8) k/uL Chloride (98-107) mmol/L Carbon Dioxide (22-30) mmol/L BUN (9-20) mg/dL Glucose (74-99) mg/dL POC Glucose (mg/dL) 101 H 115 H 148 H (75-99) mg/dL AST (17-59) U/L ALT (21-72) U/L Total Protein (6.3-8.2) g/dL 01/06/18 01/06/18 01/06/18 Range/Units 07:07 07:53 07:53 MCV 103.8 H (80.0-100.0) fL Neutrophils # 8.9 H (1.3-7.7) k/uL Lymphocytes # 0.6 L (1.0-4.8) k/uL Chloride 94 L (98-107) mmol/L Carbon Dioxide 34 H (22-30) mmol/L BUN 28 H (9-20) mg/dL Glucose 115 H (74-99) mg/dL POC Glucose (mg/dL) 119 H (75-99) mg/dL AST 88 H (17-59) U/L ALT 215 H (21-72) U/L Total Protein 6.0 L (6.3-8.2) g/dL Microbiology - Last 24 Hours (Table) 01/05/18 15:10 Gram Stain - Preliminary Bronchial Washings - Left Bronchial Washings Culture - Preliminary 01/05/18 15:10 Fungal Culture - Preliminary Bronchial Washings - Left 01/05/18 15:10 Acid Fast Bacilli Culture - Preliminary Bronchial Washings - Left 12/31/17 10:46 Blood Culture - Preliminary Blood No Growth after 120 hours Assessment and Plan Plan: ASSESSMENT: Acute exacerbation of chronic obstructive pulmonary disease Bilateral pneumonia History of obstructive sleep apnea Essential hypertension Chronic back and neck pain, sees Dr. Trammell outpatient for pain management Generalized anxiety disorder Depression Bipolar disorder Obesity: BMI 35.6 Daily alcohol use, patient reports drinking one fifth of whiskey weekly PLAN: Pulmonary on consult. Appreciate recommendations and input Await results of bronchoscopy biopsy and cultures Wean oxygen as tolerated Patient may require home oxygen at the time of discharge Continue antibiotics Continue IV steroids and nebulizer treatments Dr. Trammell is on vacation and unable to evaluate patient at this time. Will change patient's pain medications to Percocet well hospitalized. Patient to be discharged home on his Fre[place]att. No prescription will be provided at the time of discharge Dr. Vines, infectious disease, on consult. Appreciate recommendations and input Home meds as appropriate Monitor labs GI prophylaxis: Pepcid 20 mg daily DVT prophylaxis: Heparin 5000 units subcu every 12 hours Monitor vital signs and address as appropriate Discharge planning: Patient to return home when stable Further recommendations pending patient's course Nurse practitioner note has been reviewed by physician. Signing provider agrees with the documented findings, assessment, and plan of care.
[2018-01-06 12:01] LABS: Glucose,Whole Blood 196 mg/dL (75-99)
[2018-01-06] MEDS: LEVOFLOXACIN 750 MG TAB PO SCH (12:48)
--- NOTE | 2018-01-06 14:08 | P.PN ---
Subjective Progress Note Date: 01/06/18 Principal diagnosis: By basilar basilar pneumonia, acute hypoxic restrictive failure, acute COPD exacerbation, morbid obesity, obstructive sleep apnea and sleep disorder breathing, morbid disorder depression 01/06/2018, patient seen eval examined the still have significant wheezing cough and congestion but however no sputum production is present patient continued to have a significant pain in the back which is not much different from baseline, patient remains on broad-spectrum antibiotics, bronchoscopic finding reviewed with the patient at length, the culture results and reports are reviewed so far no positive cultures seen, path report and cytology report however is pending, 01/05/2018, patient seen eval examined during the rounds clinically patient is not much changes still have significant cough complaining of the pain predominantly in the back some on the chest as well I reviewed the computed tomography scan finding with the patient care plan discussed with the primary service patient is being planned for bronchoscopy and transbronchial lung biopsy of the left lower lobe to rule out unusual bacterial infection versus noninfectious causes like bronchiolitis occlusive pneumonia procedure explained to the patient. Risk alternative and complication 01/04/2018, patient seen eval examined during the rounds still have cough congestion back pain is slightly better patient unable to produce any sputum patient underwent computed tomography scan of the chest which I have reviewed dated care plan discussed with the patient as well as primary service at length , he skin chest revealed dense consolidation in the left lower lobe also some patchy infiltrate on the left upper lobe as well as the right lower lobe were seen, patient denies any hemoptysis, computed tomography scan finding reviewed with the patient he agrees for bronchoscopy, there is a history of respiratory failure in the past x-ray details are not available I've asked anesthesia to evaluate but overall it appears to be related to sleep apnea 01/03/2018, patient seen eval examined during the rounds clinically patient is still not doing very well is still have intermittent cough congestion and thick purulent sputum production the chest x-ray performed January 01 reviewed is still showing left lower lobe infiltrate which appears to be non-resolving patient remains on broad-spectrum antibiotics with vancomycin and Zosyn, culture results and reports are reviewed no significant predominance of any organism has been noted 62-year-old male with extensive history of severe COPD emphysema and chronic persistent asthma of severe category, this patient has been admitted into the hospital with a one-day history of increasing difficulty in breathing cough and greenish sputum production patient was recently discharged 2 days ago with the in stable condition however patient was doing okay for a day until system symptoms relapse and decided to come into the hospital for further evaluation he has been evaluated in the emergency department chest x-ray revealed worsening of left lower lobe infiltrate as well as right medial basilar atelectasis, patient is admitted to hospital for IV antibiotics breathing treatments and steroids Objective - Vital Signs Vital signs: Vital Signs Temp 97.5 F L 01/06/18 06:00 Pulse 92 01/06/18 11:39 Resp 16 01/06/18 06:00 BP 144/89 01/06/18 06:00 Pulse Ox 91 L 01/06/18 11:00 Intake & Output 01/05/18 01/06/18 01/06/18 18:59 06:59 18:59 Intake Total 200 240 Output Total 400 Balance -200 240 Weight 111.5 kg 111.5 kg Intake: IV 200 Oral 240 Output: Urine 400 Other: Voiding Method Toilet Toilet Urinal # Voids 2 - Exam Constitutional General appearance: cooperative, mild distress, morbidly obese, obese - EENT Eyes: EOMI, PERRLA, normal appearance ENT: normal oropharynx Ears: bilateral: normal - Neck Carotids: bilateral: upstroke normal, bruit absent Thyroid: bilateral: normal size - Respiratory Respiratory: bilateral: diminished, wheezing (Bilateral inspiratory and expiratory), prolonged expiration, negative: CTA, dullness, rales - Cardiovascular Rhythm: regular Heart sounds: normal: S1, S2 - Gastrointestinal General gastrointestinal: distended, soft - Integumentary Integumentary: normal, normal turgor - Neurologic Neurologic: CNII-XII intact - Musculoskeletal Musculoskeletal: gait normal, generalized weakness, strength equal bilaterally - Psychiatric Psychiatric: A&O x's 3, appropriate affect, intact judgment & insight - Labs CBC & Chem 7: 01/06/18 07:53 01/06/18 07:53 Labs: Abnormal Lab Results - Last 24 Hours (Table) 01/05/18 01/05/18 01/05/18 Range/Units 15:10 17:37 20:56 MCV (80.0-100.0) fL Neutrophils # (1.3-7.7) k/uL Lymphocytes # (1.0-4.8) k/uL Chloride (98-107) mmol/L Carbon Dioxide (22-30) mmol/L BUN (9-20) mg/dL Glucose (74-99) mg/dL POC Glucose (mg/dL) 115 H 148 H (75-99) mg/dL AST (17-59) U/L ALT (21-72) U/L Total Protein (6.3-8.2) g/dL Viral Test See Below H 01/06/18 01/06/18 01/06/18 Range/Units 07:07 07:53 07:53 MCV 103.8 H (80.0-100.0) fL Neutrophils # 8.9 H (1.3-7.7) k/uL Lymphocytes # 0.6 L (1.0-4.8) k/uL Chloride 94 L (98-107) mmol/L Carbon Dioxide 34 H (22-30) mmol/L BUN 28 H (9-20) mg/dL Glucose 115 H (74-99) mg/dL POC Glucose (mg/dL) 119 H (75-99) mg/dL AST 88 H (17-59) U/L ALT 215 H (21-72) U/L Total Protein 6.0 L (6.3-8.2) g/dL Viral Test 01/06/18 Range/Units 11:48 MCV (80.0-100.0) fL Neutrophils # (1.3-7.7) k/uL Lymphocytes # (1.0-4.8) k/uL Chloride (98-107) mmol/L Carbon Dioxide (22-30) mmol/L BUN (9-20) mg/dL Glucose (74-99) mg/dL POC Glucose (mg/dL) 196 H (75-99) mg/dL AST (17-59) U/L ALT (21-72) U/L Total Protein (6.3-8.2) g/dL Viral Test Microbiology - Last 24 Hours (Table) 12/31/17 10:46 Blood Culture - Final Blood No Growth after 144 hours 01/05/18 15:10 Gram Stain - Preliminary Bronchial Washings - Left Bronchial Washings Culture - Preliminary 01/05/18 15:10 Fungal Culture - Preliminary Bronchial Washings - Left 01/05/18 15:10 Acid Fast Bacilli Culture - Preliminary Bronchial Washings - Left Assessment and Plan Assessment: Bilateral multi lobar pneumonia, lower lobe and left upper lobe patchy infiltrate worsening pneumonia likely appeared to be mixed bacterial and/or or gram-negative related patient has been appropriately placed on broad-spectrum antibiotics with Levaquin and Zosyn, other etiologies and not liking noninfectious inflammatory processes like bronchiolitis occlusive pneumonia Non-resolving persistent left lower lobe infiltrate with negative cultures, with involvement of right lower lobe as well as portion of patchy infiltrate on left upper lobe Acute COPD exacerbation Obstructive sleep apnea, refused and not using CPAP machine Severe morbid obesity Chronic persistent severe asthma Chronic pain syndrome Mood disorder and depression Plan: Broad-spectrum antibiotic Breathing treatments IV steroids Deep breathing exercise incentive spirometry Reviewed computed tomography scan of the chest without IV dye, persistent bilateral more so on the left side compared to right side lower lobe infiltrate , along with patchy left upper lobe filtrate Etiology is not clear may be neoplastic processes versus unusual bacterial infection we'll proceed with bronchoscopy and possibly lung biopsy procedures side effect alternate event complication explained to the patient, related to history of respiratory failure in the past I have asked anesthesia to evaluate the patient as well Further recommendations pending plan of care as per clinical response of the patient and finding on above-mentioned test results and report Path and cytology reports are pending culture so far all negative Time with Patient: Greater than 30
[2018-01-06 17:47] LABS: Glucose,Whole Blood 113 mg/dL (75-99)
[2018-01-06 21:03] LABS: Glucose,Whole Blood 209 mg/dL (75-99)
--- NOTE | 2018-01-06 22:43 | P.PN ---
Subjective Progress Note Date: 01/06/18 62-year-old male who has a known history of underlying lung disease and chronic pain relates to a several-day history of increasing shortness of breath cough minimal sputum production and feeling very poorly. Is related time of his presentation his temperature was 103. The patient relates that over the last many months she's been having ongoing difficulties with his pulmonary status. He follows with his diamond cle[facility] Dr. Granados. Despite multiple courses of antibiotic therapy interventions he remains ill and now has a marked worsening of his pulmonary status with high-grade fever. Imaging studies revealed evidence of multifocal pneumonia and with this the infectious diseases consultation was requested. The patient relates he is feeling slightly better this afternoon and that his fever has improved he still is short of breath, he has significant sputum production at times but no hemoptysis. He relates that at home he was having fever with chills but no night sweats this had no significantly weight loss. 01/05/2018 patient is improving bronchoscopy has occurred. Cultures are pending. He is definitely feeling better after the bronchoscopy. 01/06/2018 patient is having some further improvement. He is quite anxious for his discharge to home. The bronchoscopy cultures are negative so far, AFB is negative the bronchoscopy specimen, cytology is pending. Patient relates he is less short of breath and when he was walked in the hallway did not need home O2. Objective - Vital Signs Vital signs: Vital Signs Temp 97.7 F 01/06/18 15:00 Pulse 92 01/06/18 19:52 Resp 20 01/06/18 15:00 BP 139/85 01/06/18 15:00 Pulse Ox 96 01/06/18 15:00 Intake & Output 01/06/18 01/06/18 01/07/18 06:59 18:59 06:59 Intake Total 240 Balance 240 Weight 111.5 kg 111.5 kg Intake: Oral 240 Other: Voiding Method Toilet Toilet Urinal # Voids 2 3 - Exam 62-year-old male who has obesity, seems still short of breath has occasional nonproductive cough HEENT: Anicteric conjunctiva are pink and moist nasal mucosa grossly intact without significant lesions, there is no thrush. Neck: The neck is supple without significant lymphadenopathy or thyromegaly. Lungs: Symmetrical air entry is noted, coarse crackles and wheezing throughout the lung pedroza no distinct bronchial sounds. No dullness or egophony. Heart: Irregular with an audible S1 and S2 no S3 soft S4 There is no significant murmur click or rub, PMI was nondisplaced. Abdomen: Obese, Positive bowel sounds soft and nontender without palpable masses or organomegaly. There was no guarding or rebound. Extremities: The upper extremities have excellent pulses they are symmetric, no significant petechiae or telangiectasia. No splinter hemorrhages were noted. The lower extremities are free from significant edema. The peripheral pulses were 2+ and symmetric. Neuro: Awake alert oriented to person place and time, however he states that hospital for 2 weeks and has only been 6 days. There are no acute new gross focal sensory motor deficits. - Labs CBC & Chem 7: 01/06/18 07:53 01/06/18 07:53 Labs: Abnormal Lab Results - Last 24 Hours (Table) 01/05/18 01/06/18 01/06/18 Range/Units 15:10 07:07 07:53 MCV 103.8 H (80.0-100.0) fL Neutrophils # 8.9 H (1.3-7.7) k/uL Lymphocytes # 0.6 L (1.0-4.8) k/uL Chloride (98-107) mmol/L Carbon Dioxide (22-30) mmol/L BUN (9-20) mg/dL Glucose (74-99) mg/dL POC Glucose (mg/dL) 119 H (75-99) mg/dL AST (17-59) U/L ALT (21-72) U/L Total Protein (6.3-8.2) g/dL Viral Test See Below H 01/06/18 01/06/18 01/06/18 Range/Units 07:53 11:48 17:35 MCV (80.0-100.0) fL Neutrophils # (1.3-7.7) k/uL Lymphocytes # (1.0-4.8) k/uL Chloride 94 L (98-107) mmol/L Carbon Dioxide 34 H (22-30) mmol/L BUN 28 H (9-20) mg/dL Glucose 115 H (74-99) mg/dL POC Glucose (mg/dL) 196 H 113 H (75-99) mg/dL AST 88 H (17-59) U/L ALT 215 H (21-72) U/L Total Protein 6.0 L (6.3-8.2) g/dL Viral Test 01/06/18 Range/Units 21:01 MCV (80.0-100.0) fL Neutrophils # (1.3-7.7) k/uL Lymphocytes # (1.0-4.8) k/uL Chloride (98-107) mmol/L Carbon Dioxide (22-30) mmol/L BUN (9-20) mg/dL Glucose (74-99) mg/dL POC Glucose (mg/dL) 209 H (75-99) mg/dL AST (17-59) U/L ALT (21-72) U/L Total Protein (6.3-8.2) g/dL Viral Test Microbiology - Last 24 Hours (Table) 01/05/18 15:10 Acid Fast Bacilli Smear - Final Bronchial Washings - Left Acid Fast Bacilli Culture - Preliminary 12/31/17 10:46 Blood Culture - Final Blood No Growth after 144 hours 01/05/18 15:10 Gram Stain - Preliminary Bronchial Washings - Left Bronchial Washings Culture - Preliminary 01/05/18 15:10 Fungal Culture - Preliminary Bronchial Washings - Left Laboratory Results WBC 9.9 k/uL (3.8-10.6) 01/06/18 07:53 RBC 4.31 m/uL (4.30-5.90) 01/06/18 07:53 Hgb 14.8 gm/dL (13.0-17.5) 01/06/18 07:53 Hct 44.8 % (39.0-53.0) 01/06/18 07:53 MCV 103.8 fL (80.0-100.0) H 01/06/18 07:53 MCH 34.3 pg (25.0-35.0) 01/06/18 07:53 MCHC 33.1 g/dL (31.0-37.0) 01/06/18 07:53 RDW 14.1 % (11.5-15.5) 01/06/18 07:53 Plt Count 154 k/uL (150-450) 01/06/18 07:53 Neutrophils % 90 % 01/06/18 07:53 Lymphocytes % 6 % 01/06/18 07:53 Monocytes % 3 % 01/06/18 07:53 Eosinophils % 0 % 01/06/18 07:53 Basophils % 0 % 01/06/18 07:53 Neutrophils # 8.9 k/uL (1.3-7.7) H 01/06/18 07:53 Lymphocytes # 0.6 k/uL (1.0-4.8) L 01/06/18 07:53 Monocytes # 0.3 k/uL (0-1.0) 01/06/18 07:53 Eosinophils # 0.0 k/uL (0-0.7) 01/06/18 07:53 Basophils # 0.0 k/uL (0-0.2) 01/06/18 07:53 Macrocytosis Slight 01/06/18 07:53 PT 10.1 sec (9.0-12.0) 12/31/17 10:46 INR 1.0 (<1.2) 12/31/17 10:46 APTT 19.9 sec (22.0-30.0) L 12/31/17 10:46 Sodium 141 mmol/L (137-145) 01/06/18 07:53 Potassium 4.0 mmol/L (3.5-5.1) 01/06/18 07:53 Chloride 94 mmol/L (98-107) L 01/06/18 07:53 Carbon Dioxide 34 mmol/L (22-30) H 01/06/18 07:53 Anion Gap 13 mmol/L 01/06/18 07:53 BUN 28 mg/dL (9-20) H 01/06/18 07:53 Creatinine 0.83 mg/dL (0.66-1.25) 01/06/18 07:53 Est GFR (CKD-EPI)AfAm >90 (>60 ml/min/1.73 sqM) 01/06/18 07:53 Est GFR (CKD-EPI)NonAf >90 (>60 ml/min/1.73 sqM) 01/06/18 07:53 Glucose 115 mg/dL (74-99) H 01/06/18 07:53 POC Glucose (mg/dL) 209 mg/dL (75-99) H 01/06/18 21:01 POC Glu Core Drill Operator CHANCE Andressa Crouch 01/06/18 21:[address] Glu mg/dL 114 12/31/17 10:46 Hemoglobin A1c 5.6 % (4.0-6.0) 12/31/17 10:46 Plasma Lactic Acid Aman 1.6 mmol/L (0.7-2.0) 12/31/17 10:46 Calcium 8.4 mg/dL (8.4-10.2) 01/06/18 07:53 Total Bilirubin 1.0 mg/dL (0.2-1.3) 01/06/18 07:53 AST 88 U/L (17-59) H 01/06/18 07:53 ALT 215 U/L (21-72) H 01/06/18 07:53 Alkaline Phosphatase 59 U/L (38-126) 01/06/18 07:53 Total Protein 6.0 g/dL (6.3-8.2) L 01/06/18 07:53 Albumin 3.7 g/dL (3.5-5.0) 01/06/18 07:53 Urine Color Yellow 12/31/17 10:51 Urine Appearance Clear (Clear) 12/31/17 10:51 Urine pH 6.0 (5.0-8.0) 12/31/17 10:51 Ur Specific [place] 1.019 (1.001-1.035) 12/31/17 10:51 Urine Protein 1+ (Negative) H 12/31/17 10:51 Urine Glucose (UA) Negative (Negative) 12/31/17 10:51 Urine Ketones Negative (Negative) 12/31/17 10:51 Urine Blood Moderate (Negative) H 12/31/17 10:51 Urine Nitrite Negative (Negative) 12/31/17 10:51 Urine Bilirubin Negative (Negative) 12/31/17 10:51 Urine Urobilinogen <2.0 mg/dL (<2.0) 12/31/17 10:51 Ur Leukocyte Esterase Negative (Negative) 12/31/17 10:51 Urine RBC <1 /hpf (0-5) 12/31/17 10:51 Urine WBC 1 /hpf (0-5) 12/31/17 10:51 Amorphous Sediment Rare /hpf (None) H 12/31/17 10:51 Urine Mucus Rare /hpf (None) H 12/31/17 10:51 Virus Source See Below 01/05/18 15:10 Viral Test See Below H 01/05/18 15:10 Virus Analysis Interp See Below 01/05/18 15:10 Microbiology 01/05/18 15:10 Bronchial Washings - Left Acid Fast Bacilli Smear - Final 01/05/18 15:10 Bronchial Washings - Left Acid Fast Bacilli Culture - Preliminary 12/31/17 10:46 Blood Blood Culture - Final No Growth after 144 hours 01/05/18 15:10 Bronchial Washings - Left Gram Stain - Preliminary 01/05/18 15:10 Bronchial Washings - Left Bronchial Washings Culture - Preliminary 01/05/18 15:10 Bronchial Washings - Left Fungal Culture - Preliminary 01/01/18 01:25 Sputum Gram Stain - Final 01/01/18 01:25 Sputum Sputum Culture - Final 12/31/17 10:51 Urine,Voided Urine Culture - Final Assessment and Plan (1) Multifocal pneumonia Narrative/Plan: 62-year-old male presents to Hospital with progressive difficulty with his lungs and he was having increasing shortness of breath cough supraduction and then high-grade fever. Admission temperature 103 and evidence of multifocal pneumonia was noted. Antibiotic therapy has been changed per the pneumonia protocol and he failed prior antibiotics. Concern to pseudomonas or other more resistant pathogens and coffee Zosyn and Levaquin are being utilized. Evaluation for Legionella and mycoplasma are in process. I will and supportive care. He has been evaluated by his [facility] cle[facility] and bronchoscopy likely will occur in the next short period of time. The patient relates that he is not currently drinking however he still has a quite elevated MCV and I am concerned that he has ongoing drinking, and constantly aspiration or other toxicities of the lung is of concern which bronchoscopy may further help delineate. Current antibiotics also be helpful if there is an aspiration event occurring. Continue guaifenesin to try to thin his secretions and help his cough. 01/05/2018 patient has undergone bronchoscopy and is feeling better this afternoon. Is wondering about his ability to be discharged soon. At this time awaiting the analysis from the bronchoscopy, no evidence of Mycobacterium tuberculosis but could have mac infection. At this time the cultures and stains are pending including the viral analysis. Results will help determine course of discharge. 01/06/2018 the bronchoscopy specimens so far have been negative for bacteria, fungus or Mycobacterium. The viral analysis however shows evidence of adenovirus. In certain persons adenovirus can be the cause of a viral pneumonia which may be consistent with the findings that are being seen at this point in time with a multifocal pneumonia. If no other findings within strongly consider discontinuation of antibiotic therapy, supportive care and discharged home. Current Visit: Yes Status: Acute Code(s): J18.9 - PNEUMONIA, UNSPECIFIED ORGANISM SNOMED Code(s): 503913116 (2) Acute exacerbation of chronic obstructive airways disease Current Visit: No Status: Acute Code(s): J44.1 - CHRONIC OBSTRUCTIVE PULMONARY DISEASE W (ACUTE) EXACERBATION SNOMED Code(s): 539225202 (3) Diabetes mellitus Current Visit: Yes Status: Acute Code(s): E11.9 - TYPE 2 DIABETES MELLITUS WITHOUT COMPLICATIONS SNOMED Code(s): 90872919
[2018-01-07] MEDS: oxyCODONE-APAP 10-325MG 1 EACH TAB PO PRN ×5 (02:03→20:18)
[2018-01-07 05:44] LABS: Mycoplasma IgM Antibody 0.5 INDEX (<=0.90)
[2018-01-07] MEDS: SODIUM CHLORIDE 0.9% 1,000 ML IV SCH ×2 (06:15→23:54)
[2018-01-07] MEDS: methylPREDNISolone SOD SUCCI 125 MG/2 ML VIAL IV SCH ×3 (06:16→21:17)
[2018-01-07] MEDS: BUDESONIDE 0.5 MG/2 ML NEBU INHALATION SCH ×2 (07:08→19:07)
[2018-01-07] MEDS: IPRATROPIUM-ALBUTEROL 3 ML NEB INHALATION SCH ×4 (07:08→19:08)
[2018-01-07 07:12] LABS: Glucose,Whole Blood 113 mg/dL (75-99)
[2018-01-07] MEDS: INSULIN ASPART 100 UNIT/ML 1 ML 10 ML VIAL SQ SCH ×4 (07:48→21:15)
[2018-01-07] MEDS: ALPRAZolam 1 MG TAB PO SCH ×3 (07:56→21:16)
[2018-01-07] MEDS: PIPERACILLIN-TAZOBACTAM 3.375 GM in DEXTROSE/WATER 1 50ML.BAG IVPB SCH ×3 (07:56→23:54)
[2018-01-07] MEDS: MONTELUKAST 10 MG TAB PO SCH (07:57)
[2018-01-07] MEDS: hydrALAZINE HCL 25 MG TAB PO SCH ×2 (07:57→21:14)
[2018-01-07] MEDS: GABAPENTIN 100 MG CAP PO SCH ×3 (07:57→21:16)
[2018-01-07] MEDS: FAMOTIDINE 20 MG TAB PO SCH (07:57)
[2018-01-07] MEDS: amLODIPine 5 MG TAB PO SCH (07:57)
[2018-01-07] MEDS: DESVENLAFAXINE SUCCINATE 50 MG TAB.ER.24H PO SCH (07:57)
[2018-01-07] MEDS: LURASIDONE 40 MG TAB PO SCH (07:57)
[2018-01-07] MEDS: HEPARIN SODIUM,PORCINE 5,000 UNIT/ML 1 ML VIAL SQ SCH ×2 (07:58→21:16)
--- NOTE | 2018-01-07 11:07 | P.PN ---
Subjective Progress Note Date: 01/07/18 01/03/2018 Patient seen and examined at the bedside. Patient states he feels "rough" today. He reports shortness of breath and coughing. Patient remains on IV solumedral 60mg q 6 hours. Patient was febrile on admission with a temperature of 103.5. He has been afebrile since that time. Gram stain of sputum reveals few gram positive cocci, few gram-positive bacilli, and rare squamous epithelial cells. Sputum culture reveals moderate normal respiratory jose. Urine culture is negative at 18 hour francisco. Blood cultures are negative at the 48 hour francisco. He remains on 3 L nasal cannula with oxygen saturations greater than 92%. Blood pressure is stable with a last reading of 145/85. Heart rate is in 80s. 01/04/2018 Patient seen and examined at the bedside on rounds with Dr. Nuñez. Patient underwent CT of the chest yesterday which revealed left lower lobe airspace consolidation with air bronchograms felt to reflect pneumonia or atypical pneumonia. Additional reticulonodular infiltrates seen throughout the right upper lobe, portions of the left lower lobe as well as the lower lobes bilaterally. More patchy confluent infiltrate right lower lobe. Dr. Granados is following. Patient continues to complain of shortness of breath. His lungs remained coarse with scattered wheezing. He has not made much improvement since time of admission. Dr. Trammell was consulted for pain management as the patient sees him outpatient. However, he is on vacation this week and is unable to see the patient. During the patient's last admission, Dr. Trammell switched the patient's [place] to Percocet during hospitalization. Will change patient's pain medications to Percocet. Patient will be discharged home on [place]. Blood cultures are negative at the 72 hour francisco. Urine culture is negative. Sputum culture reveals normal respiratory jose. 01/05/2018 Patient seen and examined at the bedside. Patient states he continues to feel short of breath. He also reports frequent coughing with sputum production. He is scheduled for bronch today with Dr. Granados. Dr Vines was consulted and evaluated patient yesterday. He remains on ceftriaxone, Levaquin, and Zosyn. Legionella and Mycoplasma are pending. He denies chest pain or pressure. Denies nausea or vomiting. Vital signs are stable. He is afebrile. 01/06/2018 Patient seen and examined at the bedside on rounds with Dr. Paredes. Patient states his shortness of breath has improved slightly. Patient underwent endoscopy yesterday with Dr. Granados which revealed thick tenacious sputum and BAL was performed. Biopsy was performed. Culture of bronchial washings are currently pending. No evidence of Mycobacterium tuberculosis but patient may have a MAC infection per Dr. Vines. He remains on Zosyn and Levaquin. Patient continues to require supplemental oxygen at 3 L nasal cannula to maintain sats greater than 92%. Patient may require home oxygen at the time of discharge. The patient remains on IV steroids: 60 mg every 6 hours. The patient was questioned regarding alcohol use. Initially patient states he drinks very little alcohol. The patient does have a history of heavy alcohol abuse. His MCV has been elevated over 100. Patient then states he drinks 2 shots of whiskey daily. Patient was asked how long a fifth of alcohol will last him or how often he denies a fifth of alcohol and the patient states he purchases a fifth of whiskey every week. One fifth of alcohol is approximately 25 one-ounce shots. Patient was encouraged to decrease his alcohol intake. 01/07/2018 Patient seen and examined at the bedside. Patient states he was evaluated by Dr. Granados this morning and he cleared him for discharge. Patient is requesting to be discharged home this morning. ALLIGATOR TRAPPER spoke with Dr. Granados who states he did not clear the patient for discharge from a pulmonary standpoint. Patient remains on IV Solu-Medrol: 60 mg IV every 8 hours. AFB was negative. Cultures from bronchoscopy are currently pending. Patient reports his shortness of breath has improved and he feels his breathing is at his baseline. However patients lungs remained coarse with scattered rhonchi and scattered wheezing. Patient's vital signs remain stable. The patient was evaluated yesterday for home oxygen. Patient's oxygen saturations remained greater than 92% and patient will not require oxygen at the time of discharge. Objective - Vital Signs Vital signs: Vital Signs Temp 97.5 F L 01/07/18 06:10 Pulse 90 01/07/18 07:21 Resp 16 01/07/18 08:00 BP 169/95 01/07/18 06:10 Pulse Ox 96 01/07/18 06:10 Intake & Output 06/07/18 06/08/18 06/08/18 18:59 06:59 18:59 Intake Total 240 600 Output Total 1850 Balance 240 -1250 Weight 111.5 kg 110.5 kg Intake: Oral 240 600 Output: Urine 1850 Other: Voiding Method Toilet Toilet Urinal # Voids 3 3 1 - Exam GENERAL: This is a 62-year-old male in no apparent distress at the time of examination. HEENT: Head is atraumatic, normocephalic. Pupils are equal, round, and reactive to light. Sclerae anicteric. Conjunctivae are clear. Mucus membranes of the mouth are moist. Neck is supple. RESPIRATORY: Coarse throughout with scattered rhonchi. Minimal wheezing noted, wheezing significantly improved. No use of accessory muscles. Patient maintaining oxygen saturation greater than 92%. No chest wall tenderness is noted on palpation or with deep breathing. CARDIOVASCULAR: Regular rate and rhythm. S1 and S2 noted. No systolic or diastolic murmur auscultated. No JVD noted. No S3 or S4 noted. GASTROINTESTINAL: No distention noted. Abdomen soft and round. Normal active bowel sounds auscultated x 4 quadrants. No pain or tenderness noted upon palpation. INTEGUMENTARY: No cyanosis. No jaundice. No rashes noted. No cellulitis noted. EXTREMITIES: 2+ peripheral pulses. No evidence of peripheral edema. No calf tenderness noted. NEUROLOGIC: Cranial nerves II-XII intact. PSYCHIATRIC: Awake, alert, and oriented X 3. Appropriate affect. Intact judgement and insight. - Labs CBC & Chem 7: 01/06/18 07:53 01/06/18 07:53 Labs: Abnormal Lab Results - Last 24 Hours (Table) 01/01/18 01/05/18 01/06/18 Range/Units 06:16 15:10 11:48 POC Glucose (mg/dL) 196 H (75-99) mg/dL Mycoplasma pneumon IgG 1.10 H (<=0.90) INDEX Viral Test See Below H 01/06/18 01/06/18 01/07/18 Range/Units 17:35 21:01 07:08 POC Glucose (mg/dL) 113 H 209 H 113 H (75-99) mg/dL Mycoplasma pneumon IgG (<=0.90) INDEX Viral Test Microbiology - Last 24 Hours (Table) 01/05/18 15:10 Acid Fast Bacilli Smear - Final Bronchial Washings - Left Acid Fast Bacilli Culture - Preliminary 12/31/17 10:46 Blood Culture - Final Blood No Growth after 144 hours Assessment and Plan Plan: ASSESSMENT: Acute exacerbation of chronic obstructive pulmonary disease Bilateral multilobar pneumonia, non-resolving persistent left lower lobe infiltrate, right lower lobe, and patchy infiltrate and left upper lobe History of obstructive sleep apnea-noncompliant with CPAP Essential hypertension Chronic back and neck pain, sees Dr. Trammell outpatient for pain management Generalized anxiety disorder Depression Bipolar disorder Obesity: BMI 35.6 Daily alcohol use, patient reports drinking one fifth of whiskey weekly PLAN: Pulmonary on consult. Appreciate recommendations and input Continue Solu-Medrol: 60 mg IV every 8 hours. Wean per pulmonary. Await results of bronchoscopy biopsy and cultures Infectious disease on consult. Appreciate recommendations and input Antibiotic regimen per Dr. Vines Continue IV steroids and nebulizer treatments Dr. Trammell is on vacation and unable to evaluate patient at this time. Patient may receive Percocet while hospitalized. Patient to be discharged home on his [place]. No prescription will be provided at the time of discharge Home meds as appropriate Monitor labs GI prophylaxis: Pepcid 20 mg daily DVT prophylaxis: Heparin 5000 units subcu every 12 hours Monitor vital signs and address as appropriate Discharge planning: Patient to return home when stable Further recommendations pending patient's course Nurse practitioner note has been reviewed by physician. Signing provider agrees with the documented findings, assessment, and plan of care.
[2018-01-07] MEDS: LEVOFLOXACIN 750 MG TAB PO SCH (12:40)
[2018-01-07 12:48] LABS: Glucose,Whole Blood 138 mg/dL (75-99)
[2018-01-07] MEDS ORDERED: methylPREDNISolone SOD SUCCI 40 MG/ML 1 ML VIAL IV SCH (14:00)
--- NOTE | 2018-01-07 15:19 | P.PN ---
Subjective Progress Note Date: 01/07/18 62-year-old male who has a known history of underlying lung disease and chronic pain relates to a several-day history of increasing shortness of breath cough minimal sputum production and feeling very poorly. Is related time of his presentation his temperature was 103. The patient relates that over the last many months she's been having ongoing difficulties with his pulmonary status. He follows with his finishing area operator Dr. Granados. Despite multiple courses of antibiotic therapy interventions he remains ill and now has a marked worsening of his pulmonary status with high-grade fever. Imaging studies revealed evidence of multifocal pneumonia and with this the infectious diseases consultation was requested. The patient relates he is feeling slightly better this afternoon and that his fever has improved he still is short of breath, he has significant sputum production at times but no hemoptysis. He relates that at home he was having fever with chills but no night sweats this had no significantly weight loss. 01/05/2018 patient is improving bronchoscopy has occurred. Cultures are pending. He is definitely feeling better after the bronchoscopy. 01/06/2018 patient is having some further improvement. He is quite anxious for his discharge to home. The bronchoscopy cultures are negative so far, AFB is negative the bronchoscopy specimen, cytology is pending. Patient relates he is less short of breath and when he was walked in the hallway did not need home O2. 01/07/2018 patient is had some further improvement. He has beenseen by his finishing area operator. He will now be on a steroid taper ready for discharge the next few days. Objective - Vital Signs Vital signs: Vital Signs Temp 97.5 F L 01/07/18 06:10 Pulse 90 01/07/18 11:18 Resp 16 01/07/18 08:00 BP 169/95 01/07/18 06:10 Pulse Ox 96 01/07/18 06:10 Intake & Output 01/06/18 01/07/18 01/07/18 18:59 06:59 18:59 Intake Total 240 600 Output Total 1850 Balance 240 -1250 Weight 111.5 kg 110.5 kg Intake: Oral 240 600 Output: Urine 1850 Other: Voiding Method Toilet Toilet Urinal # Voids 3 3 4 - Exam 62-year-old male who has obesity, seems still short of breath has occasional nonproductive cough HEENT: Anicteric conjunctiva are pink and moist nasal mucosa grossly intact without significant lesions, there is no thrush. Neck: The neck is supple without significant lymphadenopathy or thyromegaly. Lungs: Symmetrical air entry is noted, coarse crackles and wheezing throughout the lung pedroza no distinct bronchial sounds. No dullness or egophony. Heart: Irregular with an audible S1 and S2 no S3 soft S4 There is no significant murmur click or rub, PMI was nondisplaced. Abdomen: Obese, Positive bowel sounds soft and nontender without palpable masses or organomegaly. There was no guarding or rebound. Extremities: The upper extremities have excellent pulses they are symmetric, no significant petechiae or telangiectasia. No splinter hemorrhages were noted. The lower extremities are free from significant edema. The peripheral pulses were 2+ and symmetric. Neuro: Awake alert oriented to person place and time, however he states that hospital for 2 weeks and has only been 6 days. There are no acute new gross focal sensory motor deficits. - Labs CBC & Chem 7: 01/06/18 07:53 01/06/18 07:53 Labs: Abnormal Lab Results - Last 24 Hours (Table) 01/01/18 01/06/18 01/06/18 Range/Units 06:16 17:35 21:01 POC Glucose (mg/dL) 113 H 209 H (75-99) mg/dL Mycoplasma pneumon IgG 1.10 H (<=0.90) INDEX 01/07/18 01/07/18 Range/Units 07:08 12:35 POC Glucose (mg/dL) 113 H 138 H (75-99) mg/dL Mycoplasma pneumon IgG (<=0.90) INDEX Microbiology - Last 24 Hours (Table) 01/05/18 15:10 Gram Stain - Preliminary Bronchial Washings - Left Bronchial Washings Culture - Preliminary 01/05/18 15:10 Acid Fast Bacilli Smear - Final Bronchial Washings - Left Acid Fast Bacilli Culture - Preliminary 12/31/17 10:46 Blood Culture - Final Blood No Growth after 144 hours Laboratory Results WBC 9.9 k/uL (3.8-10.6) 01/06/18 07:53 RBC 4.31 m/uL (4.30-5.90) 01/06/18 07:53 Hgb 14.8 gm/dL (13.0-17.5) 01/06/18 07:53 Hct 44.8 % (39.0-53.0) 01/06/18 07:53 MCV 103.8 fL (80.0-100.0) H 01/06/18 07:53 MCH 34.3 pg (25.0-35.0) 01/06/18 07:53 MCHC 33.1 g/dL (31.0-37.0) 01/06/18 07:53 RDW 14.1 % (11.5-15.5) 01/06/18 07:53 Plt Count 154 k/uL (150-450) 01/06/18 07:53 Neutrophils % 90 % 01/06/18 07:53 Lymphocytes % 6 % 01/06/18 07:53 Monocytes % 3 % 01/06/18 07:53 Eosinophils % 0 % 01/06/18 07:53 Basophils % 0 % 01/06/18 07:53 Neutrophils # 8.9 k/uL (1.3-7.7) H 01/06/18 07:53 Lymphocytes # 0.6 k/uL (1.0-4.8) L 01/06/18 07:53 Monocytes # 0.3 k/uL (0-1.0) 01/06/18 07:53 Eosinophils # 0.0 k/uL (0-0.7) 01/06/18 07:53 Basophils # 0.0 k/uL (0-0.2) 01/06/18 07:53 Macrocytosis Slight 01/06/18 07:53 PT 10.1 sec (9.0-12.0) 12/31/17 10:46 INR 1.0 (<1.2) 12/31/17 10:46 APTT 19.9 sec (22.0-30.0) L 12/31/17 10:46 Sodium 141 mmol/L (137-145) 01/06/18 07:53 Potassium 4.0 mmol/L (3.5-5.1) 01/06/18 07:53 Chloride 94 mmol/L (98-107) L 01/06/18 07:53 Carbon Dioxide 34 mmol/L (22-30) H 01/06/18 07:53 Anion Gap 13 mmol/L 01/06/18 07:53 BUN 28 mg/dL (9-20) H 01/06/18 07:53 Creatinine 0.83 mg/dL (0.66-1.25) 01/06/18 07:53 Est GFR (CKD-EPI)AfAm >90 (>60 ml/min/1.73 sqM) 01/06/18 07:53 Est GFR (CKD-EPI)NonAf >90 (>60 ml/min/1.73 sqM) 01/06/18 07:53 Glucose 115 mg/dL (74-99) H 01/06/18 07:53 POC Glucose (mg/dL) 138 mg/dL (75-99) H 01/07/18 12:35 POC Glu Acid Filler Shannon Chris 01/07/18 12:[address] Glu mg/dL 114 12/31/17 10:46 Hemoglobin A1c 5.6 % (4.0-6.0) 12/31/17 10:46 Plasma Lactic Acid Aman 1.6 mmol/L (0.7-2.0) 12/31/17 10:46 Calcium 8.4 mg/dL (8.4-10.2) 01/06/18 07:53 Total Bilirubin 1.0 mg/dL (0.2-1.3) 01/06/18 07:53 AST 88 U/L (17-59) H 01/06/18 07:53 ALT 215 U/L (21-72) H 01/06/18 07:53 Alkaline Phosphatase 59 U/L (38-126) 01/06/18 07:53 Total Protein 6.0 g/dL (6.3-8.2) L 01/06/18 07:53 Albumin 3.7 g/dL (3.5-5.0) 01/06/18 07:53 Urine Color Yellow 12/31/17 10:51 Urine Appearance Clear (Clear) 12/31/17 10:51 Urine pH 6.0 (5.0-8.0) 12/31/17 10:51 Ur Specific [place] 1.019 (1.001-1.035) 12/31/17 10:51 Urine Protein 1+ (Negative) H 12/31/17 10:51 Urine Glucose (UA) Negative (Negative) 12/31/17 10:51 Urine Ketones Negative (Negative) 12/31/17 10:51 Urine Blood Moderate (Negative) H 12/31/17 10:51 Urine Nitrite Negative (Negative) 12/31/17 10:51 Urine Bilirubin Negative (Negative) 12/31/17 10:51 Urine Urobilinogen <2.0 mg/dL (<2.0) 12/31/17 10:51 Ur Leukocyte Esterase Negative (Negative) 12/31/17 10:51 Urine RBC <1 /hpf (0-5) 12/31/17 10:51 Urine WBC 1 /hpf (0-5) 12/31/17 10:51 Amorphous Sediment Rare /hpf (None) H 12/31/17 10:51 Urine Mucus Rare /hpf (None) H 12/31/17 10:51 Urine Legionella Ag Not detected (Not detected) 01/04/18 20:00 Mycoplasma pneumon IgG 1.10 INDEX (<=0.90) H 01/01/18 06:16 Mycoplasma pneumon IgM 0.50 INDEX (<=0.90) 01/01/18 06:16 Virus Source See Below 01/05/18 15:10 Viral Test See Below H 01/05/18 15:10 Virus Analysis Interp See Below 01/05/18 15:10 Microbiology 01/05/18 15:10 Bronchial Washings - Left Gram Stain - Preliminary 01/05/18 15:10 Bronchial Washings - Left Bronchial Washings Culture - Preliminary 01/05/18 15:10 Bronchial Washings - Left Acid Fast Bacilli Smear - Final 01/05/18 15:10 Bronchial Washings - Left Acid Fast Bacilli Culture - Preliminary 12/31/17 10:46 Blood Blood Culture - Final No Growth after 144 hours 01/05/18 15:10 Bronchial Washings - Left Fungal Culture - Preliminary 01/01/18 01:25 Sputum Gram Stain - Final 01/01/18 01:25 Sputum Sputum Culture - Final 12/31/17 10:51 Urine,Voided Urine Culture - Final Assessment and Plan (1) Multifocal pneumonia Narrative/Plan: 62-year-old male presents to Hospital with progressive difficulty with his lungs and he was having increasing shortness of breath cough supraduction and then high-grade fever. Admission temperature 103 and evidence of multifocal pneumonia was noted. Antibiotic therapy has been changed per the pneumonia protocol and he failed prior antibiotics. Concern to pseudomonas or other more resistant pathogens and coffee Zosyn and Levaquin are being utilized. Evaluation for Legionella and mycoplasma are in process. I will and supportive care. He has been evaluated by his finishing area operator and bronchoscopy likely will occur in the next short period of time. The patient relates that he is not currently drinking however he still has a quite elevated MCV and I am concerned that he has ongoing drinking, and constantly aspiration or other toxicities of the lung is of concern which bronchoscopy may further help delineate. Current antibiotics also be helpful if there is an aspiration event occurring. Continue guaifenesin to try to thin his secretions and help his cough. 01/05/2018 patient has undergone bronchoscopy and is feeling better this afternoon. Is wondering about his ability to be discharged soon. At this time awaiting the analysis from the bronchoscopy, no evidence of Mycobacterium tuberculosis but could have mac infection. At this time the cultures and stains are pending including the viral analysis. Results will help determine course of discharge. 01/06/2018 the bronchoscopy specimens so far have been negative for bacteria, fungus or Mycobacterium. The viral analysis however shows evidence of adenovirus. In certain persons adenovirus can be the cause of a viral pneumonia which may be consistent with the findings that are being seen at this point in time with a multifocal pneumonia. If no other findings within strongly consider discontinuation of antibiotic therapy, supportive care and discharged home. 01/07/2018 finds the patient to be further improved. Bacterial fungal and mycobacterial cultures are negative. As noted viral analysis is consistent with adenovirus. This is likely the etiology of his multifocal pneumonia. He is now on a steroid taper and hopefully within the next couple days of appropriate for discharge to home to complete course of therapy there with him on breathing treatments and is tapering doses of steroids with ongoing follow- up in the outpatient setting as needed. Current Visit: Yes Status: Acute Code(s): J18.9 - PNEUMONIA, UNSPECIFIED ORGANISM SNOMED Code(s): 938246886 (2) Acute exacerbation of chronic obstructive airways disease Current Visit: No Status: Acute Code(s): J44.1 - CHRONIC OBSTRUCTIVE PULMONARY DISEASE W (ACUTE) EXACERBATION SNOMED Code(s): 009724953 (3) Diabetes mellitus Current Visit: Yes Status: Acute Code(s): E11.9 - TYPE 2 DIABETES MELLITUS WITHOUT COMPLICATIONS SNOMED Code(s): 15238719
[2018-01-07 17:31] LABS: Glucose,Whole Blood 109 mg/dL (75-99)
[2018-01-07 20:51] LABS: Glucose,Whole Blood 192 mg/dL (75-99)
[2018-01-07] MEDS: hydrOXYzine HCL 50 MG/ML 1 ML VIAL IM PRN (21:18)
[2018-01-08] MEDS: oxyCODONE-APAP 10-325MG 1 EACH TAB PO PRN ×6 (00:29→23:10)
[2018-01-08] MEDS: amLODIPine 5 MG TAB PO SCH (06:13)
[2018-01-08] MEDS: methylPREDNISolone SOD SUCCI 125 MG/2 ML VIAL IV SCH ×2 (06:13→13:16)
[2018-01-08 07:12] LABS: Glucose,Whole Blood 122 mg/dL (75-99)
[2018-01-08] MEDS: BUDESONIDE 0.5 MG/2 ML NEBU INHALATION SCH ×2 (07:12→18:48)
[2018-01-08] MEDS: IPRATROPIUM-ALBUTEROL 3 ML NEB INHALATION SCH ×4 (07:12→18:48)
[2018-01-08] MEDS: DESVENLAFAXINE SUCCINATE 50 MG TAB.ER.24H PO SCH (08:08)
[2018-01-08] MEDS: GABAPENTIN 100 MG CAP PO SCH ×3 (08:08→21:21)
[2018-01-08] MEDS: HEPARIN SODIUM,PORCINE 5,000 UNIT/ML 1 ML VIAL SQ SCH ×2 (08:08→21:20)
[2018-01-08] MEDS: hydrALAZINE HCL 25 MG TAB PO SCH ×2 (08:08→21:20)
[2018-01-08] MEDS: ALPRAZolam 1 MG TAB PO SCH ×3 (08:08→21:21)
[2018-01-08] MEDS: LURASIDONE 40 MG TAB PO SCH (08:08)
[2018-01-08] MEDS: FAMOTIDINE 20 MG TAB PO SCH (08:09)
[2018-01-08] MEDS: INSULIN ASPART 100 UNIT/ML 1 ML 10 ML VIAL SQ SCH ×4 (08:09→21:20)
[2018-01-08] MEDS: PIPERACILLIN-TAZOBACTAM 3.375 GM in DEXTROSE/WATER 1 50ML.BAG IVPB SCH ×3 (08:09→23:11)
[2018-01-08] MEDS: MONTELUKAST 10 MG TAB PO SCH (08:09)
[2018-01-08 12:25] LABS: Glucose,Whole Blood 134 mg/dL (75-99)
--- NOTE | 2018-01-08 13:06 | P.PN ---
Subjective Progress Note Date: 01/07/18 (Late entry note) Principal diagnosis: By basilar basilar pneumonia, acute hypoxic restrictive failure, acute COPD exacerbation, morbid obesity, obstructive sleep apnea and sleep disorder breathing, morbid disorder depression 01/07/2018, patient seen and evaluated examined during the rounds is still have cough congestion shortness of breath however CVAT is slightly better patient remains on broad-spectrum antibiotics and IV steroids final path report as well as culture results and report are pending however preliminary have been negative so far, patient expresses wishes her desire to go home but it appears that he is not ready to go home as he is significantly symptomatic is still and there is a highly likelihood of readmission would recommend to keep patient over the weekend to finish antibiotics and steroid therapy 01/06/2018, patient seen eval examined the still have significant wheezing cough and congestion but however no sputum production is present patient continued to have a significant pain in the back which is not much different from baseline, patient remains on broad-spectrum antibiotics, bronchoscopic finding reviewed with the patient at length, the culture results and reports are reviewed so far no positive cultures seen, path report and cytology report however is pending, 01/05/2018, patient seen eval examined during the rounds clinically patient is not much changes still have significant cough complaining of the pain predominantly in the back some on the chest as well I reviewed the computed tomography scan finding with the patient care plan discussed with the primary service patient is being planned for bronchoscopy and transbronchial lung biopsy of the left lower lobe to rule out unusual bacterial infection versus noninfectious causes like bronchiolitis occlusive pneumonia procedure explained to the patient. Risk alternative and complication 01/04/2018, patient seen eval examined during the rounds still have cough congestion back pain is slightly better patient unable to produce any sputum patient underwent computed tomography scan of the chest which I have reviewed dated care plan discussed with the patient as well as primary service at length , he skin chest revealed dense consolidation in the left lower lobe also some patchy infiltrate on the left upper lobe as well as the right lower lobe were seen, patient denies any hemoptysis, computed tomography scan finding reviewed with the patient he agrees for bronchoscopy, there is a history of respiratory failure in the past x-ray details are not available I've asked anesthesia to evaluate but overall it appears to be related to sleep apnea 01/03/2018, patient seen eval examined during the rounds clinically patient is still not doing very well is still have intermittent cough congestion and thick purulent sputum production the chest x-ray performed January 01 is still showing left lower lobe infiltrate which appears to be non-resolving patient remains on broad-spectrum antibiotics with vancomycin and Zosyn, culture results and reports are reviewed no significant predominance of any organism has been noted 62-year-old male with extensive history of severe COPD emphysema and chronic persistent asthma of severe category, this patient has been admitted into the hospital with a one-day history of increasing difficulty in breathing cough and greenish sputum production patient was recently discharged 2 days ago with the in stable condition however patient was doing okay for a day until system symptoms relapse and decided to come into the hospital for further evaluation he has been evaluated in the emergency department chest x-ray revealed worsening of left lower lobe infiltrate as well as right medial basilar atelectasis, patient is admitted to hospital for IV antibiotics breathing treatments and steroids Objective - Vital Signs Vital signs: Vital Signs Temp 98.1 F 01/08/18 05:45 Pulse 80 01/08/18 11:21 Resp 18 01/08/18 05:45 BP 169/101 01/08/18 05:45 Pulse Ox 93 L 01/08/18 07:14 Intake & Output 01/07/18 01/08/18 01/08/18 18:59 06:59 18:59 Output Total 700 Balance -700 Weight 110.3 kg Output: Urine 700 Other: Voiding Method Toilet Urinal # Voids 4 1 1 - Exam Constitutional General appearance: cooperative, mild distress, morbidly obese, obese - EENT Eyes: EOMI, PERRLA, normal appearance ENT: normal oropharynx Ears: bilateral: normal - Neck Carotids: bilateral: upstroke normal, bruit absent Thyroid: bilateral: normal size - Respiratory Respiratory: bilateral: diminished, wheezing (Bilateral inspiratory and expiratory), prolonged expiration, patient goes into coughing spells on deep breathing negative: CTA, dullness, rales - Cardiovascular Rhythm: regular Heart sounds: normal: S1, S2 - Gastrointestinal General gastrointestinal: distended, soft - Integumentary Integumentary: normal, normal turgor - Neurologic Neurologic: CNII-XII intact - Musculoskeletal Musculoskeletal: gait normal, generalized weakness, strength equal bilaterally - Psychiatric Psychiatric: A&O x's 3, appropriate affect, intact judgment & insight - Labs CBC & Chem 7: 01/06/18 07:53 01/06/18 07:53 Labs: Abnormal Lab Results - Last 24 Hours (Table) 01/07/18 01/07/18 01/08/18 Range/Units 17:21 20:49 07:10 POC Glucose (mg/dL) 109 H 192 H 122 H (75-99) mg/dL 01/08/18 Range/Units 12:21 POC Glucose (mg/dL) 134 H (75-99) mg/dL Microbiology - Last 24 Hours (Table) 01/05/18 15:10 Gram Stain - Final Bronchial Washings - Left Bronchial Washings Culture - Final Assessment and Plan Assessment: Bilateral multi lobar pneumonia, lower lobe and left upper lobe patchy infiltrate worsening pneumonia likely appeared to be mixed bacterial and/or or gram-negative related patient has been appropriately placed on broad-spectrum antibiotics with Levaquin and Zosyn, other etiologies and not liking noninfectious inflammatory processes like bronchiolitis occlusive pneumonia Non-resolving persistent left lower lobe infiltrate with negative cultures, with involvement of right lower lobe as well as portion of patchy infiltrate on left upper lobe Acute COPD exacerbation Obstructive sleep apnea, refused and not using CPAP machine Severe morbid obesity Chronic persistent severe asthma Chronic pain syndrome Mood disorder and depression Plan: Broad-spectrum antibiotic Breathing treatments IV steroids Deep breathing exercise incentive spirometry Reviewed computed tomography scan of the chest without IV dye, persistent bilateral more so on the left side compared to right side lower lobe infiltrate , along with patchy left upper lobe filtrate Etiology is not clear may be neoplastic processes versus unusual bacterial infection status post bronchoscopy and transbronchial lung biopsy with bronchial lavage final reports however pending Further recommendations pending plan of care as per clinical response of the patient and finding on above-mentioned test results and report Time with Patient: Greater than 30
--- NOTE | 2018-01-08 13:09 | P.PN ---
Subjective Progress Note Date: 01/08/18 Principal diagnosis: By basilar basilar pneumonia, acute hypoxic restrictive failure, acute COPD exacerbation, morbid obesity, obstructive sleep apnea and sleep disorder breathing, morbid disorder depression 01/08/2018, patient seen eval examined during the rounds care plan discussed with the staff as well as patient at length, patient is still have wheezing but however severity has improved his cuff congestion slightly better today, I have reviewed culture results and reports of 10 significant predominance of any organism has been noted in Gram stain and culture final AFB and IAM are pending , results are reviewed no significant pathology on biopsy samples has been identified would recommend to continue current course of therapy and clinically monitor observe course closely 01/07/2018, patient seen and evaluated examined during the rounds is still have cough congestion shortness of breath however CVAT is slightly better patient remains on broad-spectrum antibiotics and IV steroids final path report as well as culture results and report are pending however preliminary have been negative so far, patient expresses wishes her desire to go home but it appears that he is not ready to go home as he is significantly symptomatic is still and there is a highly likelihood of readmission would recommend to keep patient over the weekend to finish antibiotics and steroid therapy 01/06/2018, patient seen eval examined the still have significant wheezing cough and congestion but however no sputum production is present patient continued to have a significant pain in the back which is not much different from baseline, patient remains on broad-spectrum antibiotics, bronchoscopic finding reviewed with the patient at length, the culture results and reports are reviewed so far no positive cultures seen, path report and cytology report however is pending, 01/05/2018, patient seen eval examined during the rounds clinically patient is not much changes still have significant cough complaining of the pain predominantly in the back some on the chest as well I reviewed the computed tomography scan finding with the patient care plan discussed with the primary service patient is being planned for bronchoscopy and transbronchial lung biopsy of the left lower lobe to rule out unusual bacterial infection versus noninfectious causes like bronchiolitis occlusive pneumonia procedure explained to the patient. Risk alternative and complication 01/04/2018, patient seen eval examined during the rounds still have cough congestion back pain is slightly better patient unable to produce any sputum patient underwent computed tomography scan of the chest which I have reviewed dated care plan discussed with the patient as well as primary service at length , he skin chest revealed dense consolidation in the left lower lobe also some patchy infiltrate on the left upper lobe as well as the right lower lobe were seen, patient denies any hemoptysis, computed tomography scan finding reviewed with the patient he agrees for bronchoscopy, there is a history of respiratory failure in the past x-ray details are not available I've asked anesthesia to evaluate but overall it appears to be related to sleep apnea 01/03/2018, patient seen eval examined during the rounds clinically patient is still not doing very well is still have intermittent cough congestion and thick purulent sputum production the chest x-ray performed January 01 reviewed is still showing left lower lobe infiltrate which appears to be non-resolving patient remains on broad-spectrum antibiotics with vancomycin and Zosyn, culture results and reports are reviewed no significant predominance of any organism has been noted 62-year-old male with extensive history of severe COPD emphysema and chronic persistent asthma of severe category, this patient has been admitted into the hospital with a one-day history of increasing difficulty in breathing cough and greenish sputum production patient was recently discharged 2 days ago with the in stable condition however patient was doing okay for a day until system symptoms relapse and decided to come into the hospital for further evaluation he has been evaluated in the emergency department chest x-ray revealed worsening of left lower lobe infiltrate as well as right medial basilar atelectasis, patient is admitted to hospital for IV antibiotics breathing treatments and steroids Objective - Vital Signs Vital signs: Vital Signs Temp 98.1 F 01/08/18 05:45 Pulse 80 01/08/18 11:21 Resp 18 01/08/18 05:45 BP 169/101 01/08/18 05:45 Pulse Ox 93 L 01/08/18 07:14 Intake & Output 01/07/18 01/08/18 01/08/18 18:59 06:59 18:59 Output Total 700 Balance -700 Weight 110.3 kg Output: Urine 700 Other: Voiding Method Toilet Urinal # Voids 4 1 1 - Exam Constitutional General appearance: cooperative, mild distress, morbidly obese, obese - EENT Eyes: EOMI, PERRLA, normal appearance ENT: normal oropharynx Ears: bilateral: normal - Neck Carotids: bilateral: upstroke normal, bruit absent Thyroid: bilateral: normal size - Respiratory Respiratory: bilateral: diminished, wheezing (Bilateral inspiratory and expiratory), prolonged expiration, patient goes into coughing spells on deep breathing negative: CTA, dullness, rales, exam slightly better and improved today compared to yesterday exam - Cardiovascular Rhythm: regular Heart sounds: normal: S1, S2 - Gastrointestinal General gastrointestinal: distended, soft - Integumentary Integumentary: normal, normal turgor - Neurologic Neurologic: CNII-XII intact - Musculoskeletal Musculoskeletal: gait normal, generalized weakness, strength equal bilaterally - Psychiatric Psychiatric: A&O x's 3, appropriate affect, intact judgment & insight - Labs CBC & Chem 7: 01/06/18 07:53 01/06/18 07:53 Labs: Abnormal Lab Results - Last 24 Hours (Table) 01/07/18 01/07/18 01/08/18 Range/Units 17:21 20:49 07:10 POC Glucose (mg/dL) 109 H 192 H 122 H (75-99) mg/dL 01/08/18 Range/Units 12:21 POC Glucose (mg/dL) 134 H (75-99) mg/dL Microbiology - Last 24 Hours (Table) 01/05/18 15:10 Gram Stain - Final Bronchial Washings - Left Bronchial Washings Culture - Final Assessment and Plan Assessment: Bilateral multi lobar pneumonia, lower lobe and left upper lobe patchy infiltrate worsening pneumonia likely appeared to be mixed bacterial and/or or gram-negative related patient has been appropriately placed on broad-spectrum antibiotics with Levaquin and Zosyn, other etiologies and not liking noninfectious inflammatory processes like bronchiolitis occlusive pneumonia still cannot be excluded Non-resolving persistent left lower lobe infiltrate with negative cultures, with involvement of right lower lobe as well as portion of patchy infiltrate on left upper lobe Acute COPD exacerbation Obstructive sleep apnea, refused and not using CPAP machine Severe morbid obesity Chronic persistent severe asthma Chronic pain syndrome Mood disorder and depression Plan: Broad-spectrum antibiotic Breathing treatments IV steroids Deep breathing exercise incentive spirometry Reviewed computed tomography scan of the chest without IV dye, persistent bilateral more so on the left side compared to right side lower lobe infiltrate , along with patchy left upper lobe filtrate Etiology is not clear less likely to be neoplastic processes versus unusual bacterial infection status post bronchoscopy and transbronchial lung biopsy with bronchial lavage final reports reviewed Status post bronchoscopy and lung biopsy with removal of extensive amount of mucous plugs and pulmonary toilet Time with Patient: Greater than 30
[2018-01-08] MEDS: LEVOFLOXACIN 750 MG TAB PO SCH (13:16)
[2018-01-08 17:11] LABS: Glucose,Whole Blood 130 mg/dL (75-99)
--- NOTE | 2018-01-08 18:36 | P.PN ---
Progress Note - Text patient seen and examined, detailed note pending
[2018-01-08 20:58] LABS: Glucose,Whole Blood 164 mg/dL (75-99)
[2018-01-08] MEDS: SODIUM CHLORIDE 0.9% 1,000 ML IV SCH (21:19)
[2018-01-08] MEDS: hydrOXYzine HCL 50 MG/ML 1 ML VIAL IM PRN (21:22)
[2018-01-08] MEDS: methylPREDNISolone SOD SUCCI 40 MG/ML 1 ML VIAL IV SCH (23:13)
[2018-01-09] MEDS: oxyCODONE-APAP 10-325MG 1 EACH TAB PO PRN ×5 (03:03→19:46)
[2018-01-09 07:21] LABS: Glucose,Whole Blood 115 mg/dL (75-99)
[2018-01-09] MEDS: PIPERACILLIN-TAZOBACTAM 3.375 GM in DEXTROSE/WATER 1 50ML.BAG IVPB SCH ×3 (07:44→23:19)
[2018-01-09] MEDS: ALPRAZolam 1 MG TAB PO SCH ×3 (07:45→21:05)
[2018-01-09] MEDS: methylPREDNISolone SOD SUCCI 40 MG/ML 1 ML VIAL IV SCH ×2 (07:45→21:04)
[2018-01-09] MEDS: MONTELUKAST 10 MG TAB PO SCH (07:45)
[2018-01-09] MEDS: GABAPENTIN 100 MG CAP PO SCH ×3 (07:45→21:03)
[2018-01-09] MEDS: hydrALAZINE HCL 25 MG TAB PO SCH ×2 (07:45→21:03)
[2018-01-09] MEDS: DESVENLAFAXINE SUCCINATE 50 MG TAB.ER.24H PO SCH (07:45)
[2018-01-09] MEDS: IPRATROPIUM-ALBUTEROL 3 ML NEB INHALATION SCH ×4 (07:45→20:22)
[2018-01-09] MEDS: BUDESONIDE 0.5 MG/2 ML NEBU INHALATION SCH ×2 (07:45→20:22)
[2018-01-09] MEDS: LURASIDONE 40 MG TAB PO SCH (07:46)
[2018-01-09] MEDS: FAMOTIDINE 20 MG TAB PO SCH (07:46)
[2018-01-09] MEDS: INSULIN ASPART 100 UNIT/ML 1 ML 10 ML VIAL SQ SCH ×4 (07:46→21:05)
[2018-01-09] MEDS: amLODIPine 5 MG TAB PO SCH (07:46)
[2018-01-09] MEDS: HEPARIN SODIUM,PORCINE 5,000 UNIT/ML 1 ML VIAL SQ SCH ×2 (07:47→21:03)
[2018-01-09 09:13] LABS: Basophils % (A) 0 %; Eosinophils % (A) 0 %; HCT 41.9 % (39.0-53.0); HGB 14.1 gm/dL (13.0-17.5); Lymphocytes # (A) 0.5 k/uL (1.0-4.8); Lymphocytes % (A) 6 %; MCH 35.1 pg (25.0-35.0); MCHC 33.7 g/dL (31.0-37.0); Macrocytosis Slight; Mean Platelet Volume 6.7; Monocytes # (A) 0.3 k/uL (0-1.0); Monocytes % (A) 4 %; Neutrophils # (A) 7.3 k/uL (1.3-7.7); Neutrophils % (A) 89 %; Platelet Count 138 k/uL (150-450); RBC 4.03 m/uL (4.30-5.90); RDW 14.2 % (11.5-15.5); WBC 8.2 k/uL (3.8-10.6)
[2018-01-09 09:19] LABS: Anion Gap 11 mmol/L; Blood Urea Nitrogen 27 mg/dL (9-20); Calcium 8.5 mg/dL (8.4-10.2); Carbon Dioxide 29 mmol/L (22-30); Chloride 99 mmol/L (98-107); Glucose 163 mg/dL (74-99); Magnesium 2.2 mg/dL (1.6-2.3); Potassium 4.3 mmol/L (3.5-5.1); Sodium 139 mmol/L (137-145)
--- NOTE | 2018-01-09 11:15 | P.PN ---
Subjective Progress Note Date: 01/09/18 Principal diagnosis: Bi basilar multi lobar mixed bacterial and/or or gram-negative related pneumonia , acute hypoxic restrictive failure, acute COPD exacerbation, morbid obesity, obstructive sleep apnea and sleep disorder breathing, morbid disorder depression 01/09/2018, patient seen and evaluated examined during the rounds is still have intermittent cough congestion audible wheezing, patient breathing is slightly better he is systolic going home but however I feel that patient is still require IV antibiotics and IV steroids not ready to go home, bronchoscopic findings including biopsy results and reports are reviewed with the patient as well the cultures have been negative so far the biopsies are negative for any significant pathology however does show ongoing chronic inflammation, 01/08/2018, patient seen eval examined during the rounds care plan discussed with the staff as well as patient at length, patient is still have wheezing but however severity has improved his cuff congestion slightly better today, I have reviewed culture results and reports of 10 significant predominance of any organism has been noted in Gram stain and culture final AFB and IAM are pending , results are reviewed no significant pathology on biopsy samples has been identified would recommend to continue current course of therapy and clinically monitor observe course closely 01/07/2018, patient seen and evaluated examined during the rounds is still have cough congestion shortness of breath however CVAT is slightly better patient remains on broad-spectrum antibiotics and IV steroids final path report as well as culture results and report are pending however preliminary have been negative so far, patient expresses wishes her desire to go home but it appears that he is not ready to go home as he is significantly symptomatic is still and there is a highly likelihood of readmission would recommend to keep patient over the weekend to finish antibiotics and steroid therapy 01/06/2018, patient seen eval examined the still have significant wheezing cough and congestion but however no sputum production is present patient continued to have a significant pain in the back which is not much different from baseline, patient remains on broad-spectrum antibiotics, bronchoscopic finding reviewed with the patient at length, the culture results and reports are reviewed so far no positive cultures seen, path report and cytology report however is pending, 01/05/2018, patient seen eval examined during the rounds clinically patient is not much changes still have significant cough complaining of the pain predominantly in the back some on the chest as well I reviewed the computed tomography scan finding with the patient care plan discussed with the primary service patient is being planned for bronchoscopy and transbronchial lung biopsy of the left lower lobe to rule out unusual bacterial infection versus noninfectious causes like bronchiolitis occlusive pneumonia procedure explained to the patient. Risk alternative and complication 01/04/2018, patient seen eval examined during the rounds still have cough congestion back pain is slightly better patient unable to produce any sputum patient underwent computed tomography scan of the chest which I have reviewed dated care plan discussed with the patient as well as primary service at length , he skin chest revealed dense consolidation in the left lower lobe also some patchy infiltrate on the left upper lobe as well as the right lower lobe were seen, patient denies any hemoptysis, computed tomography scan finding reviewed with the patient he agrees for bronchoscopy, there is a history of respiratory failure in the past x-ray details are not available I've asked anesthesia to evaluate but overall it appears to be related to sleep apnea 01/03/2018, patient seen eval examined during the rounds clinically patient is still not doing very well is still have intermittent cough congestion and thick purulent sputum production the chest x-ray performed January 01 reviewed is still showing left lower lobe infiltrate which appears to be non-resolving patient remains on broad-spectrum antibiotics with vancomycin and Zosyn, culture results and reports are reviewed no significant predominance of any organism has been noted 62-year-old male with extensive history of severe COPD emphysema and chronic persistent asthma of severe category, this patient has been admitted into the hospital with a one-day history of increasing difficulty in breathing cough and greenish sputum production patient was recently discharged 2 days ago with the in stable condition however patient was doing okay for a day until system symptoms relapse and decided to come into the hospital for further evaluation he has been evaluated in the emergency department chest x-ray revealed worsening of left lower lobe infiltrate as well as right medial basilar atelectasis, patient is admitted to hospital for IV antibiotics breathing treatments and steroids Objective - Vital Signs Vital signs: Vital Signs Temp 96.4 F L 01/09/18 05:35 Pulse 90 01/09/18 08:04 Resp 16 01/09/18 05:35 BP 180/96 01/09/18 05:35 Pulse Ox 96 01/09/18 05:35 Intake & Output 01/08/18 01/09/18 01/09/18 18:59 06:59 18:59 Intake Total 450 50 Balance 450 50 Weight 110 kg Intake: Intake, IV Titration 450 50 Amount Piperacillin-Tazobactam 3 50 50 .375 gm In Dextrose/Water 1 50ml.bag @ 12.5 mls/hr IVPB Q8HR [facility] Rx#: [id number] Sodium Chloride 0.9% 1, 400 000 ml @ 50 mls/hr IV . Q20H [facility] Rx#:[id number] Other: # Voids 1 # Bowel Movements 1 - Exam Constitutional General appearance: cooperative, mild distress, morbidly obese, obese - EENT Eyes: EOMI, PERRLA, normal appearance ENT: normal oropharynx Ears: bilateral: normal - Neck Carotids: bilateral: upstroke normal, bruit absent Thyroid: bilateral: normal size - Respiratory Respiratory: bilateral: diminished, wheezing (Bilateral inspiratory and expiratory), prolonged expiration, patient goes into coughing spells on deep breathing negative: CTA, dullness, rales, exam slightly better and improved today compared to yesterday exam - Cardiovascular Rhythm: regular Heart sounds: normal: S1, S2 - Gastrointestinal General gastrointestinal: distended, soft - Integumentary Integumentary: normal, normal turgor - Neurologic Neurologic: CNII-XII intact - Musculoskeletal Musculoskeletal: gait normal, generalized weakness, strength equal bilaterally - Psychiatric Psychiatric: A&O x's 3, appropriate affect, intact judgment & insight - Labs CBC & Chem 7: 01/09/18 08:00 01/09/18 08:00 Labs: Abnormal Lab Results - Last 24 Hours (Table) 01/08/18 01/08/18 01/08/18 Range/Units 12:21 17:09 20:36 RBC (4.30-5.90) m/uL MCV (80.0-100.0) fL MCH (25.0-35.0) pg Plt Count (150-450) k/uL Lymphocytes # (1.0-4.8) k/uL BUN (9-20) mg/dL Glucose (74-99) mg/dL POC Glucose (mg/dL) 134 H 130 H 164 H (75-99) mg/dL 01/09/18 01/09/18 01/09/18 Range/Units 07:19 08:00 08:00 RBC 4.03 L (4.30-5.90) m/uL MCV 104.0 H (80.0-100.0) fL MCH 35.1 H (25.0-35.0) pg Plt Count 138 L (150-450) k/uL Lymphocytes # 0.5 L (1.0-4.8) k/uL BUN 27 H (9-20) mg/dL Glucose 163 H (74-99) mg/dL POC Glucose (mg/dL) 115 H (75-99) mg/dL Microbiology - Last 24 Hours (Table) 01/05/18 15:10 Gram Stain - Final Bronchial Washings - Left Bronchial Washings Culture - Final Assessment and Plan Assessment: Bilateral multi lobar pneumonia, mixed bacterial and/or or gram-negative pneumonia Non-resolving persistent left lower lobe infiltrate with negative cultures, with involvement of right lower lobe as well as portion of patchy infiltrate on left upper lobe Acute COPD exacerbation Obstructive sleep apnea, refused and not using CPAP machine Severe morbid obesity Chronic persistent severe asthma Chronic pain syndrome Mood disorder and depression Plan: Broad-spectrum antibiotic Breathing treatments IV steroids Deep breathing exercise incentive spirometry Reviewed computed tomography scan of the chest without IV dye, persistent bilateral more so on the left side compared to right side lower lobe infiltrate , along with patchy left upper lobe filtrate Etiology is not clear less likely to be neoplastic processes versus unusual bacterial infection status post bronchoscopy and transbronchial lung biopsy with bronchial lavage final reports reviewed Status post bronchoscopy and lung biopsy with removal of extensive amount of mucous plugs and pulmonary toilet Continue IV antibiotics and IV steroids possibly discharge planning for tomorrow on oral Time with Patient: Greater than 30
--- NOTE | 2018-01-09 11:19 | P.PN ---
Subjective Progress Note Date: 01/09/18 01/03/2018 Patient seen and examined at the bedside. Patient states he feels "rough" today. He reports shortness of breath and coughing. Patient remains on IV solumedral 60mg q 6 hours. Patient was febrile on admission with a temperature of 103.5. He has been afebrile since that time. Gram stain of sputum reveals few gram positive cocci, few gram-positive bacilli, and rare squamous epithelial cells. Sputum culture reveals moderate normal respiratory jose. Urine culture is negative at 18 hour francisco. Blood cultures are negative at the 48 hour francisco. He remains on 3 L nasal cannula with oxygen saturations greater than 92%. Blood pressure is stable with a last reading of 145/85. Heart rate is in 80s. 01/04/2018 Patient seen and examined at the bedside on rounds with Dr. Nuñez. Patient underwent CT of the chest yesterday which revealed left lower lobe airspace consolidation with air bronchograms felt to reflect pneumonia or atypical pneumonia. Additional reticulonodular infiltrates seen throughout the right upper lobe, portions of the left lower lobe as well as the lower lobes bilaterally. More patchy confluent infiltrate right lower lobe. Dr. Granados is following. Patient continues to complain of shortness of breath. His lungs remained coarse with scattered wheezing. He has not made much improvement since time of admission. Dr. Trammell was consulted for pain management as the patient sees him outpatient. However, he is on vacation this week and is unable to see the patient. During the patient's last admission, Dr. Trammell switched the patient's Sanford to Percocet during hospitalization. Will change patient's pain medications to Percocet. Patient will be discharged home on Sanford. Blood cultures are negative at the 72 hour francisco. Urine culture is negative. Sputum culture reveals normal respiratory jose. 01/05/2018 Patient seen and examined at the bedside. Patient states he continues to feel short of breath. He also reports frequent coughing with sputum production. He is scheduled for bronch today with Dr. Granados. Dr Vines was consulted and evaluated patient yesterday. He remains on ceftriaxone, Levaquin, and Zosyn. Legionella and Mycoplasma are pending. He denies chest pain or pressure. Denies nausea or vomiting. Vital signs are stable. He is afebrile. 01/06/2018 Patient seen and examined at the bedside on rounds with Dr. Paredes. Patient states his shortness of breath has improved slightly. Patient underwent endoscopy yesterday with Dr. Granados which revealed thick tenacious sputum and BAL was performed. Biopsy was performed. Culture of bronchial washings are currently pending. No evidence of Mycobacterium tuberculosis but patient may have a MAC infection per Dr. Vines. He remains on Zosyn and Levaquin. Patient continues to require supplemental oxygen at 3 L nasal cannula to maintain sats greater than 92%. Patient may require home oxygen at the time of discharge. The patient remains on IV steroids: 60 mg every 6 hours. The patient was questioned regarding alcohol use. Initially patient states he drinks very little alcohol. The patient does have a history of heavy alcohol abuse. His MCV has been elevated over 100. Patient then states he drinks 2 shots of whiskey daily. Patient was asked how long a fifth of alcohol will last him or how often he denies a fifth of alcohol and the patient states he purchases a fifth of whiskey every week. One fifth of alcohol is approximately 25 one-ounce shots. Patient was encouraged to decrease his alcohol intake. 01/07/2018 Patient seen and examined at the bedside. Patient states he was evaluated by Dr. Granados this morning and he cleared him for discharge. Patient is requesting to be discharged home this morning. SPOT BILLING CLERK spoke with Dr. Granados who states he did not clear the patient for discharge from a pulmonary standpoint. Patient remains on IV Solu-Medrol: 60 mg IV every 8 hours. AFB was negative. Cultures from bronchoscopy are currently pending. Patient reports his shortness of breath has improved and he feels his breathing is at his baseline. However patients lungs remained coarse with scattered rhonchi and scattered wheezing. Patient's vital signs remain stable. The patient was evaluated yesterday for home oxygen. Patient's oxygen saturations remained greater than 92% and patient will not require oxygen at the time of discharge. 01/08/2018 Patient seen and examined again today. Dr. Granados feels he will not be ready for discharge today. He denies any chest pains, pressures, shortness of breath. He is on IV Solu-Medrol 40 mg every 8 hours. He is tolerating a diet and had a bowel movement today. 01/09/2018 Patient seen and examined again today. He denies any chest pains, pressures, shortness of breath. He is on IV Solu-Medrol 60 mg every 8 hours. He is tolerating a diet and had a bowel movement today. Dr Granados has already seen him, and felt he is not ready today, but expects tomorrow. Objective - Vital Signs Vital signs: Vital Signs Temp 96.4 F L 01/09/18 05:35 Pulse 90 01/09/18 08:04 Resp 16 01/09/18 05:35 BP 180/96 01/09/18 05:35 Pulse Ox 96 01/09/18 05:35 Intake & Output 01/08/18 01/09/18 01/09/18 18:59 06:59 18:59 Intake Total 450 50 Balance 450 50 Weight 110 kg Intake: Intake, IV Titration 450 50 Amount Piperacillin-Tazobactam 3 50 50 .375 gm In Dextrose/Water 1 50ml.bag @ 12.5 mls/hr IVPB Q8HR [facility] Rx#: [id number] Sodium Chloride 0.9% 1, 400 000 ml @ 50 mls/hr IV . Q20H [facility] Rx#:[id number] Other: # Voids 1 # Bowel Movements 1 - Exam GENERAL: This is a 62-year-old male in no apparent distress at the time of examination. RESPIRATORY: Coarse throughout with scattered rhonchi. No wheezing No use of accessory muscles. Patient maintaining oxygen saturation greater than 92%. No chest wall tenderness is noted on palpation or with deep breathing. CARDIOVASCULAR: Regular rate and rhythm. S1 and S2 noted. No systolic or diastolic murmur auscultated. No JVD noted. No S3 or S4 noted. GASTROINTESTINAL: No distention noted. Abdomen soft and round. Normal active bowel sounds auscultated x 4 quadrants. No pain or tenderness noted upon palpation. INTEGUMENTARY: No cyanosis. No jaundice. No rashes noted. No cellulitis noted. EXTREMITIES: 2+ peripheral pulses. No evidence of peripheral edema. No calf tenderness noted. NEUROLOGIC: Cranial nerves II-XII intact. PSYCHIATRIC: Awake, alert, and oriented X 3. Appropriate affect. Intact judgement and insight. - Labs CBC & Chem 7: 01/09/18 08:00 01/09/18 08:00 Labs: Abnormal Lab Results - Last 24 Hours (Table) 01/08/18 01/08/18 01/08/18 Range/Units 12:21 17:09 20:36 RBC (4.30-5.90) m/uL MCV (80.0-100.0) fL MCH (25.0-35.0) pg Plt Count (150-450) k/uL Lymphocytes # (1.0-4.8) k/uL BUN (9-20) mg/dL Glucose (74-99) mg/dL POC Glucose (mg/dL) 134 H 130 H 164 H (75-99) mg/dL 01/09/18 01/09/18 01/09/18 Range/Units 07:19 08:00 08:00 RBC 4.03 L (4.30-5.90) m/uL MCV 104.0 H (80.0-100.0) fL MCH 35.1 H (25.0-35.0) pg Plt Count 138 L (150-450) k/uL Lymphocytes # 0.5 L (1.0-4.8) k/uL BUN 27 H (9-20) mg/dL Glucose 163 H (74-99) mg/dL POC Glucose (mg/dL) 115 H (75-99) mg/dL Microbiology - Last 24 Hours (Table) 01/05/18 15:10 Gram Stain - Final Bronchial Washings - Left Bronchial Washings Culture - Final Assessment and Plan Plan: ASSESSMENT: Acute exacerbation of chronic obstructive pulmonary disease Bilateral multilobar pneumonia, non-resolving persistent left lower lobe infiltrate, right lower lobe, and patchy infiltrate and left upper lobe History of obstructive sleep apnea-noncompliant with CPAP Essential hypertension Chronic back and neck pain, sees Dr. Trammell outpatient for pain management Generalized anxiety disorder Depression Bipolar disorder Obesity: BMI 35.6 Daily alcohol use, patient reports drinking one fifth of whiskey weekly PLAN: Pulmonary on consult. Appreciate recommendations and input Decrease Solu-Medrol: 30 mg IV every 12 hours. Await results of bronchoscopy biopsy and cultures Infectious disease on consult. Appreciate recommendations and input Antibiotic regimen per Dr. Vines Continue IV steroids and nebulizer treatments Dr. Trammell is on vacation and unable to evaluate patient at this time. Patient may receive Percocet while hospitalized. Patient to be discharged home on his Sanford. No prescription will be provided at the time of discharge Home meds as appropriate Monitor labs GI prophylaxis: Pepcid 20 mg daily DVT prophylaxis: Heparin 5000 units subcu every 12 hours Monitor vital signs and address as appropriate Discharge planning: Patient to return home when stable, expect Wednesday Further recommendations pending patient's course
[2018-01-09 11:36] LABS: Glucose,Whole Blood 102 mg/dL (75-99)
[2018-01-09] MEDS: LEVOFLOXACIN 750 MG TAB PO SCH (15:51)
[2018-01-09] MEDS: IPRATROPIUM-ALBUTEROL 3 ML NEB INHALATION PRN (16:40)
[2018-01-09 17:08] LABS: Glucose,Whole Blood 137 mg/dL (75-99)
[2018-01-09] MEDS: SODIUM CHLORIDE 0.9% 1,000 ML IV SCH (17:35)
[2018-01-09 20:45] LABS: Glucose,Whole Blood 124 mg/dL (75-99)
[2018-01-09 23:58] VITALS: RESP 20
[2018-01-10] MEDS: oxyCODONE-APAP 10-325MG 1 EACH TAB PO PRN ×5 (00:13→15:51)
[2018-01-10 06:36] VITALS: BP 157/86; TEMP 97.6
[2018-01-10 07:01] LABS: Glucose,Whole Blood 112 mg/dL (75-99)
[2018-01-10] MEDS: IPRATROPIUM-ALBUTEROL 3 ML NEB INHALATION SCH ×3 (07:03→15:42)
[2018-01-10] MEDS: BUDESONIDE 0.5 MG/2 ML NEBU INHALATION SCH (07:03)
[2018-01-10] MEDS: INSULIN ASPART 100 UNIT/ML 1 ML 10 ML VIAL SQ SCH ×2 (07:24→11:45)
[2018-01-10] MEDS: GABAPENTIN 100 MG CAP PO SCH ×2 (08:05→15:51)
[2018-01-10] MEDS: methylPREDNISolone SOD SUCCI 40 MG/ML 1 ML VIAL IV SCH (08:05)
[2018-01-10] MEDS: HEPARIN SODIUM,PORCINE 5,000 UNIT/ML 1 ML VIAL SQ SCH (08:05)
[2018-01-10] MEDS: DESVENLAFAXINE SUCCINATE 50 MG TAB.ER.24H PO SCH (08:05)
[2018-01-10] MEDS: FAMOTIDINE 20 MG TAB PO SCH (08:06)
[2018-01-10] MEDS: amLODIPine 5 MG TAB PO SCH (08:06)
[2018-01-10] MEDS: ALPRAZolam 1 MG TAB PO SCH ×2 (08:06→15:44)
[2018-01-10] MEDS: LURASIDONE 40 MG TAB PO SCH (08:06)
[2018-01-10] MEDS: hydrALAZINE HCL 25 MG TAB PO SCH (08:06)
[2018-01-10] MEDS: MONTELUKAST 10 MG TAB PO SCH (08:07)
[2018-01-10 09:14] LABS: Basophils % (A) 0 %; Eosinophils % (A) 0 %; HCT 42.4 % (39.0-53.0); HGB 13.7 gm/dL (13.0-17.5); Lymphocytes # (A) 0.5 k/uL (1.0-4.8); Lymphocytes % (A) 9 %; MCH 34.2 pg (25.0-35.0); MCHC 32.3 g/dL (31.0-37.0); MCV 105.8 fL (80.0-100.0); Macrocytosis Moderate; Mean Platelet Volume 6.8; Monocytes # (A) 0.3 k/uL (0-1.0); Monocytes % (A) 4 %; Neutrophils # (A) 5.1 k/uL (1.3-7.7); Neutrophils % (A) 86 %; Platelet Count 129 k/uL (150-450); RBC 4.01 m/uL (4.30-5.90)
[2018-01-10 11:04] VITALS: PULSE 72
[2018-01-10] MEDS: SODIUM CHLORIDE 0.9% 1,000 ML IV SCH (11:45)
[2018-01-10] MEDS: LEVOFLOXACIN 750 MG TAB PO SCH (11:51)
[2018-01-10 11:53] LABS: Glucose,Whole Blood 101 mg/dL (75-99)
--- NOTE | 2018-01-10 15:40 | P.DS ---
Providers Date of admission: 12/31/17 12:24 Expected date of discharge: 01/10/18 Attending physician: Genaro Lawson Consults: 12/31/17 12:25 Consult Physician Urgent Consulting Provider: Nehemiah Granados Consult Reason/Comments: Pneumonia, sepsis Do you want consulting provider notified?: Yes 12/31/17 13:05 Consult Physician Routine Consulting Provider: George Trammell Consult Reason/Comments: pt known to you, pain management Do you want consulting provider notified?: Yes 01/04/18 09:59 Consult Physician Routine Consulting Provider: Alberto Vines Consult Reason/Comments: pneumonia Do you want consulting provider notified?: Yes 01/04/18 15:04 Consult to Anesthesia Routine Consulting Provider: Anesthesia,Services Consult Reason/Comments: Bibi planned pt states hx of "code Blue" in surgery. need clearance Primary care physician: [facility] Course: 62-year-old male presents to emergency room on 12/31/2017. The patient was just discharged home the day before. The patient was admitted at that time for COPD exacerbation and insisted on being discharged so he could go to his pain management appointment. After this appointment, he came back to the ER with complaints of SOB. The patient was found to be febrile with a temperature of 103.0. X-ray revealed worsening left lower lobe infiltrate and worsening of right basilar atelectasis. He was admitted to the hospital for further evaluation. Dr. Granados, pulmonary, was consulted. The patient was started on antibiotics and IV steroids, which he continued on without much improvement initially. He continued to be short of breath with coarse lung sounds with wheezing. Infectious disease was also consulted to evaluate the patient. Blood cultures are negative at 144 hour frnacisco. Urine culture is negative. Sputum culture reveals moderate normal respiratory jose. Patient underwent CT of the chest which revealed left lower lobe airspace consolidation with air bronchograms felt to reflect pneumonia or atypical pneumonia. Additional reticulonodular infiltrates seen throughout the right upper lobe, portions of the left lower lobe as well as the lower lobes bilaterally. More patchy confluent infiltrate right lower lobe. Patient underwent bronchoscopy with Dr. Granados on 01/05/2018 with BAL. Cultures from bronchoscopy reveal rare normal respiratory jose. Legionella and mycoplasma were negative. Testing for TB was negative. The patient has been afebrile since admission, with the exception of an elevated temperature in the emergency room. Cytology of bronchoscopy remains in progress. The patient required supplemental oxygen during auscultation. He was tested for home oxygen, but the patient did not meet requirements as his oxygen saturation was greater than 92% on room air. The patient was questioned regarding alcohol use as his MCV has been elevated over 100. Initially patient states he drinks very little alcohol. The patient does have a history of heavy alcohol abuse. Patient then states he drinks 2 shots of whiskey daily. Patient was asked how long a fifth of alcohol will last him or how often he denies a fifth of alcohol and the patient states he purchases a fifth of whiskey every week. One fifth of alcohol is approximately 25 one-ounce shots. Patient was encouraged to decrease his alcohol intake. The patients respiratory status has improved back to his baseline. His lungs remain coarse, but significantly improved. He is on room air with oxygen saturations greater than 92%. His IV steroids have been weaned as tolerated. He has been ambulating. His appetite is good. Reports bowel movement. Dr. Vines does not recommend antibiotics at the time of discharge as pneumonia is likely related to adenovirus. He was deemed stable for discharge per Dr. Nuñez. He is to follow up on an outpatient basis with Dr. Nuñez/Lulu and Dr. Granados. The patient was encouraged to decrease the amount of alcohol that he consumes. DISCHARGE DIAGNOSIS: Acute exacerbation of chronic obstructive pulmonary disease, resolved at the time of discharge Bilateral multilobar pneumonia, non-resolving persistent left lower lobe infiltrate, right lower lobe, and patchy infiltrate and left upper lobe, cultures negative, suspect secondary to adenovirus History of obstructive sleep apnea-noncompliant with CPAP Essential hypertension Chronic back and neck pain, sees Dr. Trammell outpatient for pain management Generalized anxiety disorder Depression Bipolar disorder Obesity: BMI 35.6 Daily alcohol use, patient reports drinking one fifth of whiskey weekly Nurse practitioner note has been reviewed by physician. Signing provider agrees with the documented findings, assessment, and plan of care. Patient Condition at Discharge: Serious Plan - Discharge Summary Discharge Rx Participant: No New Discharge Prescriptions: New predniSONE See Taper PO DIRECTED #18 tab Continue Montelukast [Singulair] 10 mg PO DAILY amLODIPine [Norvasc] 5 mg PO QAM ALPRAZolam [Xanax] 1 mg PO TID Fluticasone/Vilanterol [Breo Ellipta 100-25 Mcg Inhaler] 1 puff INHALATION RT -DAILY Desvenlafaxine [Pristiq ER] 100 mg PO DAILY Umeclidinium [place] [Incruse Ellipta] 1 puff INHALATION RT-DAILY Hydrocodone/Acetaminophen [Carlisle 10-325] 1 tab PO QID PRN PRN Reason: Pain Albuterol Inhaler [Ventolin Hfa Inhaler] 2 puff INHALATION RT-QID PRN PRN Reason: Shortness Of Breath Famotidine [Pepcid] 20 mg PO DAILY Lurasidone HCl [Latuda] 20 mg PO DAILY Gabapentin [Neurontin] 100 mg PO TID #21 cap hydrALAZINE HCL [Apresoline] 25 mg PO BID #60 tab Benzocaine/Menthol Lozeng [Cepacol lozenge] 1 each MUCOUS MEM Q1HR PRN #30 lozenge PRN Reason: Sore Throat guaiFENesin [Mucinex] 600 mg PO Q12HR PRN #30 tab PRN Reason: Cough guaiFENesin-DM 100-10MG/5ML [Robitussin DM] 10 ml PO Q6H PRN #30 cup PRN Reason: Cough Discontinued Levofloxacin [Levaquin] 500 mg PO DAILY 7 Days #7 tab predniSONE See Taper PO DIRECTED #30 tab Discharge Medication List Montelukast [Singulair] 10 mg PO DAILY 03/16/14 [History] amLODIPine [Norvasc] 5 mg PO QAM 07/05/14 [History] ALPRAZolam [Xanax] 1 mg PO TID 09/20/15 [History] Fluticasone/Vilanterol [Breo Ellipta 100-25 Mcg Inhaler] 1 puff INHALATION RT- DAILY 07/16/16 [History] Desvenlafaxine [Pristiq ER] 100 mg PO DAILY 09/23/16 [History] Umeclidinium [place] [Incruse Ellipta] 1 puff INHALATION RT-DAILY 10/08/16 [ History] Hydrocodone/Acetaminophen [[place] 10-325] 1 tab PO QID PRN 11/06/16 [History] Albuterol Inhaler [Ventolin Hfa Inhaler] 2 puff INHALATION RT-QID PRN 05/28/17 [ History] Famotidine [Pepcid] 20 mg PO DAILY 05/28/17 [History] Lurasidone HCl [Latuda] 20 mg PO DAILY 06/27/17 [History] Gabapentin [Neurontin] 100 mg PO TID #21 cap 07/07/17 [Rx] hydrALAZINE HCL [Apresoline] 25 mg PO BID #60 tab 11/20/17 [Rx] Benzocaine/Menthol Lozeng [Cepacol lozenge] 1 each MUCOUS MEM Q1HR PRN #30 lozenge 12/30/17 [Rx] guaiFENesin [Mucinex] 600 mg PO Q12HR PRN #30 tab 12/30/17 [Rx] guaiFENesin-DM 100-10MG/5ML [Robitussin DM] 10 ml PO Q6H PRN #30 cup 12/30/17 [ Rx] predniSONE See Taper PO DIRECTED #18 tab 01/10/18 [Rx] Follow up Appointment(s)/Referral(s): Michael Nuñez MD [Primary Care Provider] - 1 Week Nehemiah Granados MD [STAFF PHYSICIAN] - 1 Week Discharge Disposition: HOME SELF-CARE
--- NOTE | 2018-01-10 17:25 | P.PN ---
Subjective Progress Note Date: 01/10/18 Principal diagnosis: Bi basilar multi lobar mixed bacterial and/or or gram-negative related pneumonia , acute hypoxic restrictive failure, acute COPD exacerbation, morbid obesity, obstructive sleep apnea and sleep disorder breathing, morbid disorder depression 01/10/2018, patient seen eval reexamined during the rounds clinically patient has been doing well awake and alert breathing comfortably no obvious distress is present still have hours some cough and congestion slightly improved, laboratory data reviewed medications reviewed patient is being considered for possible discharge later on today patient also expresses his wishes and desire to go, we'll different antibiotics to infectious disease services patient can be placed on tapering steroids 01/09/2018, patient seen and evaluated examined during the rounds is still have intermittent cough congestion audible wheezing, patient breathing is slightly better he is systolic going home but however I feel that patient is still require IV antibiotics and IV steroids not ready to go home, bronchoscopic findings including biopsy results and reports are reviewed with the patient as well the cultures have been negative so far the biopsies are negative for any significant pathology however does show ongoing chronic inflammation, 01/08/2018, patient seen eval examined during the rounds care plan discussed with the staff as well as patient at length, patient is still have wheezing but however severity has improved his cuff congestion slightly better today, I have reviewed culture results and reports of 10 significant predominance of any organism has been noted in Gram stain and culture final AFB and IAM are pending , results are reviewed no significant pathology on biopsy samples has been identified would recommend to continue current course of therapy and clinically monitor observe course closely 01/07/2018, patient seen and evaluated examined during the rounds is still have cough congestion shortness of breath however CVAT is slightly better patient remains on broad-spectrum antibiotics and IV steroids final path report as well as culture results and report are pending however preliminary have been negative so far, patient expresses wishes her desire to go home but it appears that he is not ready to go home as he is significantly symptomatic is still and there is a highly likelihood of readmission would recommend to keep patient over the weekend to finish antibiotics and steroid therapy 01/06/2018, patient seen eval examined the still have significant wheezing cough and congestion but however no sputum production is present patient continued to have a significant pain in the back which is not much different from baseline, patient remains on broad-spectrum antibiotics, bronchoscopic finding reviewed with the patient at length, the culture results and reports are reviewed so far no positive cultures seen, path report and cytology report however is pending, 01/05/2018, patient seen eval examined during the rounds clinically patient is not much changes still have significant cough complaining of the pain predominantly in the back some on the chest as well I reviewed the computed tomography scan finding with the patient care plan discussed with the primary service patient is being planned for bronchoscopy and transbronchial lung biopsy of the left lower lobe to rule out unusual bacterial infection versus noninfectious causes like bronchiolitis occlusive pneumonia procedure explained to the patient. Risk alternative and complication 01/04/2018, patient seen eval examined during the rounds still have cough congestion back pain is slightly better patient unable to produce any sputum patient underwent computed tomography scan of the chest which I have reviewed dated care plan discussed with the patient as well as primary service at length , he skin chest revealed dense consolidation in the left lower lobe also some patchy infiltrate on the left upper lobe as well as the right lower lobe were seen, patient denies any hemoptysis, computed tomography scan finding reviewed with the patient he agrees for bronchoscopy, there is a history of respiratory failure in the past x-ray details are not available I've asked anesthesia to evaluate but overall it appears to be related to sleep apnea 01/03/2018, patient seen eval examined during the rounds clinically patient is still not doing very well is still have intermittent cough congestion and thick purulent sputum production the chest x-ray performed January 01 reviewed is still showing left lower lobe infiltrate which appears to be non-resolving patient remains on broad-spectrum antibiotics with vancomycin and Zosyn, culture results and reports are reviewed no significant predominance of any organism has been noted 62-year-old male with extensive history of severe COPD emphysema and chronic persistent asthma of severe category, this patient has been admitted into the hospital with a one-day history of increasing difficulty in breathing cough and greenish sputum production patient was recently discharged 2 days ago with the in stable condition however patient was doing okay for a day until system symptoms relapse and decided to come into the hospital for further evaluation he has been evaluated in the emergency department chest x-ray revealed worsening of left lower lobe infiltrate as well as right medial basilar atelectasis, patient is admitted to hospital for IV antibiotics breathing treatments and steroids Objective - Vital Signs Vital signs: Vital Signs Temp 97.6 F 01/10/18 06:36 Pulse 72 01/10/18 11:17 Resp 20 01/10/18 08:14 BP 157/86 01/10/18 06:36 Pulse Ox 96 01/10/18 10:28 Intake & Output 01/09/18 01/10/18 01/10/18 18:59 06:59 18:59 Intake Total 500 250 Output Total 900 Balance 500 -900 250 Intake: Intake, IV Titration 500 Amount Piperacillin-Tazobactam 3 100 .375 gm In Dextrose/Water 1 50ml.bag @ 12.5 mls/hr IVPB Q8HR [facility] Rx#: [id number] Sodium Chloride 0.9% 1, 400 000 ml @ 50 mls/hr IV . Q20H [facility] Rx#:[id number] Oral 250 Output: Urine 900 Other: Voiding Method Toilet Urinal # Voids 0 - Exam Constitutional General appearance: cooperative, mild distress, morbidly obese, obese - EENT Eyes: EOMI, PERRLA, normal appearance ENT: normal oropharynx Ears: bilateral: normal - Neck Carotids: bilateral: upstroke normal, bruit absent Thyroid: bilateral: normal size - Respiratory Respiratory: bilateral: diminished, wheezing (Bilateral inspiratory and expiratory), prolonged expiration, patient goes into coughing spells on deep breathing negative: CTA, dullness, rales, exam slightly better and improved today compared to yesterday exam - Cardiovascular Rhythm: regular Heart sounds: normal: S1, S2 - Gastrointestinal General gastrointestinal: distended, soft - Integumentary Integumentary: normal, normal turgor - Neurologic Neurologic: CNII-XII intact - Musculoskeletal Musculoskeletal: gait normal, generalized weakness, strength equal bilaterally - Psychiatric Psychiatric: A&O x's 3, appropriate affect, intact judgment & insight - Labs CBC & Chem 7: 01/10/18 08:36 01/09/18 08:00 Labs: Abnormal Lab Results - Last 24 Hours (Table) 01/09/18 01/10/18 01/10/18 Range/Units 20:39 06:50 08:36 RBC 4.01 L (4.30-5.90) m/uL MCV 105.8 H (80.0-100.0) fL Plt Count 129 L (150-450) k/uL Lymphocytes # 0.5 L (1.0-4.8) k/uL POC Glucose (mg/dL) 124 H 112 H (75-99) mg/dL 01/10/18 Range/Units 11:50 RBC (4.30-5.90) m/uL MCV (80.0-100.0) fL Plt Count (150-450) k/uL Lymphocytes # (1.0-4.8) k/uL POC Glucose (mg/dL) 101 H (75-99) mg/dL Assessment and Plan Assessment: Bilateral multi lobar pneumonia, mixed bacterial and/or or gram-negative pneumonia Non-resolving persistent left lower lobe infiltrate with negative cultures, with involvement of right lower lobe as well as portion of patchy infiltrate on left upper lobe Acute COPD exacerbation Obstructive sleep apnea, refused and not using CPAP machine Severe morbid obesity Chronic persistent severe asthma Chronic pain syndrome Mood disorder and depression Plan: Broad-spectrum antibiotic as per recommendation infectious disease services Breathing treatments Oral tapering steroids Deep breathing exercise incentive spirometry Reviewed computed tomography scan of the chest without IV dye, persistent bilateral more so on the left side compared to right side lower lobe infiltrate , along with patchy left upper lobe filtrate Etiology is not clear less likely to be neoplastic processes versus unusual bacterial infection status post bronchoscopy and transbronchial lung biopsy with bronchial lavage final reports reviewed Status post bronchoscopy and lung biopsy with removal of extensive amount of mucous plugs and pulmonary toilet Time with Patient: Greater than 30
--- NOTE | 2018-01-10 18:21 | P.PN ---
Subjective Progress Note Date: 01/10/18 62-year-old male who has a known history of underlying lung disease and chronic pain relates to a several-day history of increasing shortness of breath cough minimal sputum production and feeling very poorly. Is related time of his presentation his temperature was 103. The patient relates that over the last many months she's been having ongoing difficulties with his pulmonary status. He follows with his transmission assembler Dr. Granados. Despite multiple courses of antibiotic therapy interventions he remains ill and now has a marked worsening of his pulmonary status with high-grade fever. Imaging studies revealed evidence of multifocal pneumonia and with this the infectious diseases consultation was requested. The patient relates he is feeling slightly better this afternoon and that his fever has improved he still is short of breath, he has significant sputum production at times but no hemoptysis. He relates that at home he was having fever with chills but no night sweats this had no significantly weight loss. 01/05/2018 patient is improving bronchoscopy has occurred. Cultures are pending. He is definitely feeling better after the bronchoscopy. 01/06/2018 patient is having some further improvement. He is quite anxious for his discharge to home. The bronchoscopy cultures are negative so far, AFB is negative the bronchoscopy specimen, cytology is pending. Patient relates he is less short of breath and when he was walked in the hallway did not need home O2. 01/07/2018 patient is had some further improvement. He has been seen by his transmission assembler. He will now be on a steroid taper ready for discharge the next few days. 01/10/2018 the patient has been seen by pulmonary critical care and they believe that he is now ready for discharge to home, on a tapering dose of oral steroids. The patient is feeling better less short of breath and looks forward to going home. Objective - Vital Signs Vital signs: Vital Signs Temp 97.6 F 01/10/18 06:36 Pulse 72 01/10/18 11:17 Resp 20 01/10/18 08:14 BP 157/86 01/10/18 06:36 Pulse Ox 96 01/10/18 10:28 Intake & Output 01/09/18 01/10/18 01/10/18 18:59 06:59 18:59 Intake Total 500 250 Output Total 900 Balance 500 -900 250 Intake: Intake, IV Titration 500 Amount Piperacillin-Tazobactam 3 100 .375 gm In Dextrose/Water 1 50ml.bag @ 12.5 mls/hr IVPB Q8HR [facility] Rx#: [id number] Sodium Chloride 0.9% 1, 400 000 ml @ 50 mls/hr IV . Q20H [facility] Rx#:[id number] Oral 250 Output: Urine 900 Other: Voiding Method Toilet Urinal # Voids 0 - Exam 62-year-old male who has obesity, seems still short of breath has occasional nonproductive cough HEENT: Anicteric conjunctiva are pink and moist nasal mucosa grossly intact without significant lesions, there is no thrush. Neck: The neck is supple without significant lymphadenopathy or thyromegaly. Lungs: Symmetrical air entry is noted, coarse crackles and wheezing throughout the lung pedroza no distinct bronchial sounds. No dullness or egophony. Heart: Irregular with an audible S1 and S2 no S3 soft S4 There is no significant murmur click or rub, PMI was nondisplaced. Abdomen: Obese, Positive bowel sounds soft and nontender without palpable masses or organomegaly. There was no guarding or rebound. Extremities: The upper extremities have excellent pulses they are symmetric, no significant petechiae or telangiectasia. No splinter hemorrhages were noted. The lower extremities are free from significant edema. The peripheral pulses were 2+ and symmetric. Neuro: Awake alert oriented to person place and time, he is quite pleased as he is going home not agitated. - Labs CBC & Chem 7: 01/10/18 08:36 01/09/18 08:00 Labs: Abnormal Lab Results - Last 24 Hours (Table) 01/09/18 01/10/18 01/10/18 Range/Units 20:39 06:50 08:36 RBC 4.01 L (4.30-5.90) m/uL MCV 105.8 H (80.0-100.0) fL Plt Count 129 L (150-450) k/uL Lymphocytes # 0.5 L (1.0-4.8) k/uL POC Glucose (mg/dL) 124 H 112 H (75-99) mg/dL 01/10/18 Range/Units 11:50 RBC (4.30-5.90) m/uL MCV (80.0-100.0) fL Plt Count (150-450) k/uL Lymphocytes # (1.0-4.8) k/uL POC Glucose (mg/dL) 101 H (75-99) mg/dL Laboratory Results WBC 6.0 k/uL (3.8-10.6) 01/10/18 08:36 RBC 4.01 m/uL (4.30-5.90) L 01/10/18 08:36 Hgb 13.7 gm/dL (13.0-17.5) 01/10/18 08:36 Hct 42.4 % (39.0-53.0) 01/10/18 08:36 MCV 105.8 fL (80.0-100.0) H 01/10/18 08:36 MCH 34.2 pg (25.0-35.0) 01/10/18 08:36 MCHC 32.3 g/dL (31.0-37.0) 01/10/18 08:36 RDW 14.0 % (11.5-15.5) 01/10/18 08:36 Plt Count 129 k/uL (150-450) L 01/10/18 08:36 Neutrophils % 86 % 01/10/18 08:36 Lymphocytes % 9 % 01/10/18 08:36 Monocytes % 4 % 01/10/18 08:36 Eosinophils % 0 % 01/10/18 08:36 Basophils % 0 % 01/10/18 08:36 Neutrophils # 5.1 k/uL (1.3-7.7) 01/10/18 08:36 Lymphocytes # 0.5 k/uL (1.0-4.8) L 01/10/18 08:36 Monocytes # 0.3 k/uL (0-1.0) 01/10/18 08:36 Eosinophils # 0.0 k/uL (0-0.7) 01/10/18 08:36 Basophils # 0.0 k/uL (0-0.2) 01/10/18 08:36 Macrocytosis Moderate 01/10/18 08:36 PT 10.1 sec (9.0-12.0) 12/31/17 10:46 INR 1.0 (<1.2) 12/31/17 10:46 APTT 19.9 sec (22.0-30.0) L 12/31/17 10:46 Sodium 139 mmol/L (137-145) 01/09/18 08:00 Potassium 4.3 mmol/L (3.5-5.1) 01/09/18 08:00 Chloride 99 mmol/L (98-107) 01/09/18 08:00 Carbon Dioxide 29 mmol/L (22-30) 01/09/18 08:00 Anion Gap 11 mmol/L 01/09/18 08:00 BUN 27 mg/dL (9-20) H 01/09/18 08:00 Creatinine 0.83 mg/dL (0.66-1.25) 01/09/18 08:00 Est GFR (CKD-EPI)AfAm >90 (>60 ml/min/1.73 sqM) 01/09/18 08:00 Est GFR (CKD-EPI)NonAf >90 (>60 ml/min/1.73 sqM) 01/09/18 08:00 Glucose 163 mg/dL (74-99) H 01/09/18 08:00 POC Glucose (mg/dL) 101 mg/dL (75-99) H 01/10/18 11:50 POC Glu Clerical Aide Teacher ID 01/10/18 11:[address] Glu mg/dL 114 12/31/17 10:46 Hemoglobin A1c 5.6 % (4.0-6.0) 12/31/17 10:46 Plasma Lactic Acid [place] 1.6 mmol/L (0.7-2.0) 12/31/17 10:46 Calcium 8.5 mg/dL (8.4-10.2) 01/09/18 08:00 Magnesium 2.2 mg/dL (1.6-2.3) 01/09/18 08:00 Total Bilirubin 1.0 mg/dL (0.2-1.3) 01/06/18 07:53 AST 88 U/L (17-59) H 01/06/18 07:53 ALT 215 U/L (21-72) H 01/06/18 07:53 Alkaline Phosphatase 59 U/L (38-126) 01/06/18 07:53 Total Protein 6.0 g/dL (6.3-8.2) L 01/06/18 07:53 Albumin 3.7 g/dL (3.5-5.0) 01/06/18 07:53 Urine Color Yellow 12/31/17 10:51 Urine Appearance Clear (Clear) 12/31/17 10:51 Urine pH 6.0 (5.0-8.0) 12/31/17 10:51 Ur Specific [place] 1.019 (1.001-1.035) 12/31/17 10:51 Urine Protein 1+ (Negative) H 12/31/17 10:51 Urine Glucose (UA) Negative (Negative) 12/31/17 10:51 Urine Ketones Negative (Negative) 12/31/17 10:51 Urine Blood Moderate (Negative) H 12/31/17 10:51 Urine Nitrite Negative (Negative) 12/31/17 10:51 Urine Bilirubin Negative (Negative) 12/31/17 10:51 Urine Urobilinogen <2.0 mg/dL (<2.0) 12/31/17 10:51 Ur Leukocyte Esterase Negative (Negative) 12/31/17 10:51 Urine RBC <1 /hpf (0-5) 12/31/17 10:51 Urine WBC 1 /hpf (0-5) 12/31/17 10:51 Amorphous Sediment Rare /hpf (None) H 12/31/17 10:51 Urine Mucus Rare /hpf (None) H 12/31/17 10:51 Urine Legionella Ag Not detected (Not detected) 01/04/18 20:00 Mycoplasma pneumon IgG 1.10 INDEX (<=0.90) H 01/01/18 06:16 Mycoplasma pneumon IgM 0.50 INDEX (<=0.90) 01/01/18 06:16 Virus Source See Below 01/05/18 15:10 Viral Test See Below H 01/05/18 15:10 Virus Analysis Interp See Below 01/05/18 15:10 Miscellaneous Test Pneumo.jirovecii 01/05/18 15:10 Misc Test Result Canceled-duplicate 01/05/18 15:10 Microbiology 01/05/18 15:10 Bronchial Washings - Left Gram Stain - Final 01/05/18 15:10 Bronchial Washings - Left Bronchial Washings Culture - Final 01/05/18 15:10 Bronchial Washings - Left Acid Fast Bacilli Smear - Final 01/05/18 15:10 Bronchial Washings - Left Acid Fast Bacilli Culture - Preliminary 12/31/17 10:46 Blood Blood Culture - Final No Growth after 144 hours 01/05/18 15:10 Bronchial Washings - Left Fungal Culture - Preliminary 01/01/18 01:25 Sputum Gram Stain - Final 01/01/18 01:25 Sputum Sputum Culture - Final 12/31/17 10:51 Urine,Voided Urine Culture - Final Assessment and Plan (1) Multifocal pneumonia Narrative/Plan: 62-year-old male presents to Hospital with progressive difficulty with his lungs and he was having increasing shortness of breath cough supraduction and then high-grade fever. Admission temperature 103 and evidence of multifocal pneumonia was noted. Antibiotic therapy has been changed per the pneumonia protocol and he failed prior antibiotics. Concern to pseudomonas or other more resistant pathogens and coffee Zosyn and Levaquin are being utilized. Evaluation for Legionella and mycoplasma are in process. I will and supportive care. He has been evaluated by his transmission assembler and bronchoscopy likely will occur in the next short period of time. The patient relates that he is not currently drinking however he still has a quite elevated MCV and I am concerned that he has ongoing drinking, and constantly aspiration or other toxicities of the lung is of concern which bronchoscopy may further help delineate. Current antibiotics also be helpful if there is an aspiration event occurring. Continue guaifenesin to try to thin his secretions and help his cough. 01/05/2018 patient has undergone bronchoscopy and is feeling better this afternoon. Is wondering about his ability to be discharged soon. At this time awaiting the analysis from the bronchoscopy, no evidence of Mycobacterium tuberculosis but could have mac infection. At this time the cultures and stains are pending including the viral analysis. Results will help determine course of discharge. 01/06/2018 the bronchoscopy specimens so far have been negative for bacteria, fungus or Mycobacterium. The viral analysis however shows evidence of adenovirus. In certain persons adenovirus can be the cause of a viral pneumonia which may be consistent with the findings that are being seen at this point in time with a multifocal pneumonia. If no other findings within strongly consider discontinuation of antibiotic therapy, supportive care and discharged home. 01/07/2018 finds the patient to be further improved. Bacterial fungal and mycobacterial cultures are negative. As noted viral analysis is consistent with adenovirus. This is likely the etiology of his multifocal pneumonia. He is now on a steroid taper and hopefully within the next couple days of appropriate for discharge to home to complete course of therapy there with him on breathing treatments and is tapering doses of steroids with ongoing follow- up in the outpatient setting as needed. 01/10/2018 the patient does have further improvement. As noted all standard cultures are negative including bacteria, fungus and Mycobacterium. However there was evidence of adenovirus and likely he had adenovirus pneumonia as etiology of his current illness has had marked improvement. He's been transitioned to oral steroids and is showing improvement is being discharged home today with follow-up with his transmission assembler. Smoking cessation is again stressed. Status: Acute Code(s): J18.9 - PNEUMONIA, UNSPECIFIED ORGANISM SNOMED Code(s ): 178069391 (2) Acute exacerbation of chronic obstructive airways disease Status: Acute Code(s): J44.1 - CHRONIC OBSTRUCTIVE PULMONARY DISEASE W (ACUTE ) EXACERBATION SNOMED Code(s): 660759105 (3) Diabetes mellitus Status: Acute Code(s): E11.9 - TYPE 2 DIABETES MELLITUS WITHOUT COMPLICATIONS SNOMED Code(s): 36920682
== END 2018-01-10 15:57 | disposition home or self-care (01) | DRG 166 ==
LOC: EC 10:18 → 6SEL 12:24 → 4MS4W 01-02 12:52
PROVIDERS: ADMIT Family Medicine; ATTEND Family Medicine
PROC: 0B9J8ZX Drainage of Left Lower Lung Lobe, Via Natural or Artificial Opening Endoscopic, Diagnostic (ICD-10-PCS; principal; 2018-01-05 08:40)
PROC: 0BBJ8ZX Excision of Left Lower Lung Lobe, Via Natural or Artificial Opening Endoscopic, Diagnostic (ICD-10-PCS; 2018-01-05 08:40)
DX: J12.0 Adenoviral pneumonia (principal); J96.01 Acute respiratory failure with hypoxia; K85.90 Acute pancreatitis without necrosis or infection, unspecified; J44.0 Chronic obstructive pulmonary disease with (acute) lower respiratory infection; J44.1 Chronic obstructive pulmonary disease with (acute) exacerbation; J45.51 Severe persistent asthma with (acute) exacerbation; J98.11 Atelectasis; I48.92 Unspecified atrial flutter; E66.01 Morbid (severe) obesity due to excess calories; G47.9 Sleep disorder, unspecified; E11.9 Type 2 diabetes mellitus without complications; F41.0 Panic disorder [episodic paroxysmal anxiety]; G47.33 Obstructive sleep apnea (adult) (pediatric); G89.4 Chronic pain syndrome; I10 Essential (primary) hypertension; J20.9 Acute bronchitis, unspecified; K21.9 Gastro-esophageal reflux disease without esophagitis; F10.10 Alcohol abuse, uncomplicated; M54.2 Cervicalgia; M19.90 Unspecified osteoarthritis, unspecified site; M54.9 Dorsalgia, unspecified; F32.9 Major depressive disorder, single episode, unspecified; G25.81 Restless legs syndrome; Z91.14 Patient's other noncompliance with medication regimen; Z68.35 Body mass index [BMI] 35.0-35.9, adult; Z79.899 Other long term (current) drug therapy; Z91.19 Patient's noncompliance with other medical treatment and regimen; Z91.010 Allergy to peanuts; Z91.048 Other nonmedicinal substance allergy status; Z90.49 Acquired absence of other specified parts of digestive tract; Z86.010 Personal history of colon polyps; Z87.891 Personal history of nicotine dependence; Z82.5 Family history of asthma and other chronic lower respiratory diseases; Z82.3 Family history of stroke
CPT/HCPCS: 31624; 31628; 36415; 71045; 71046; 71250; 80048; 80053; 81001; 83036; 83605; 83735; 85025; 85610; 85730; 86738; 87040; 87070; 87086; 87102; 87116; 87205; 87206; 87252; 87299; 87449; 87496; 87498; 87502; 87529; 87541; 87634; 87798; 88108; 88305; 93005; 94640; 94760; 96361; 96365; 96375; 99291

== ENCOUNTER 2018-01-30 03:11 | Emergency (ER) | payer MEDICARE ==
[2018-01-30] MEDS ORDERED: SODIUM CHLORIDE 0.9% 1,000 ML IV STA (04:08)
[2018-01-30] MEDS ORDERED: methylPREDNISolone SOD SUCCI 125 MG/2 ML VIAL IV STA (04:09)
[2018-01-30] MEDS ORDERED: ALBUTEROL NEBULIZED 2.5 MG/3 ML INHALATION STA (04:11)
[2018-01-30 04:51] LABS: Basophils % (A) 0 %; Eosinophils % (A) 0 %; HCT 39.9 % (39.0-53.0); HGB 13.6 gm/dL (13.0-17.5); Lymphocytes # (A) 0.8 k/uL (1.0-4.8); Lymphocytes % (A) 18 %; MCH 34.9 pg (25.0-35.0); MCV 102.6 fL (80.0-100.0); Macrocytosis Slight; Monocytes # (A) 0.4 k/uL (0-1.0); Monocytes % (A) 10 %; Neutrophils # (A) 3.3 k/uL (1.3-7.7); Neutrophils % (A) 71 %; Platelet Count 243 k/uL (150-450); RBC 3.89 m/uL (4.30-5.90); WBC 4.6 k/uL (3.8-10.6)
[2018-01-30 05:00] LABS: ALT 66 U/L (21-72); AST 33 U/L (17-59); Albumin 3.7 g/dL (3.5-5.0); Alkaline Phosphatase 60 U/L (38-126); Anion Gap 15 mmol/L; Blood Urea Nitrogen 12 mg/dL (9-20); Calcium 9.1 mg/dL (8.4-10.2); Carbon Dioxide 26 mmol/L (22-30); Chloride 102 mmol/L (98-107); Creatine Kinase 24 U/L (55-170); Glucose 175 mg/dL (74-99); Magnesium 1.8 mg/dL (1.6-2.3); Potassium 3.8 mmol/L (3.5-5.1); Sodium 143 mmol/L (137-145); Total Bilirubin 0.6 mg/dL (0.2-1.3); Total Protein 5.9 g/dL (6.3-8.2)
[2018-01-30 05:01] LABS: INR 1.1 (<1.2); Prothrombin Time 10.3 sec (9.0-12.0)
[2018-01-30 05:11] LABS: Creatine Kinase MB 0.9 ng/mL (0.0-2.4); Troponin I <0.012 ng/mL (0.000-0.034)
[2018-01-30] MEDS ORDERED: HYDROcodone/APAP 5-325MG 1 EACH TAB PO STA (05:11)
--- NOTE | 2018-01-30 05:40 | XR ---
EXAM: XR Chest, 2 Views CLINICAL HISTORY: ITS.REASON XR Reason: Chest Pain TECHNIQUE: Frontal and lateral views of the chest. COMPARISON: 6.18 IMPRESSION: Linear opacity in the left lower lobe, likely representing subsegmental atelectasis although infection is not excluded. Unchanged cardial mediastinal silhouette. No pleural effusion.
[2018-01-30 05:58] LABS: D-Dimer 0.61 mg/L FEU (<0.60)
[2018-01-30] MEDS ORDERED: MORPHINE SULFATE 2 MG/ML SYRINGE IVP STA (07:23)
--- NOTE | 2018-01-30 08:05 | XR ---
Right shoulder HISTORY: Trauma and pain 3 views of the right shoulder Bone mineralization, joint spaces and alignment are maintained. IMPRESSION: No fracture or dislocation.
--- NOTE | 2018-01-30 08:16 | ED ---
Fall HPI - General Chief Complaint: Fall Stated Complaint: GREGG,fall Time Seen by Provider: 01/30/18 03:45 Source: patient Mode of arrival: wheelchair - History of Present Illness Initial Comments: 62 years old gentleman he fell off the bed tonight he is complaining about pain in the right shoulder and also complaining about the shortness of breath and some chest discomfort he said he is short-winded most time he has a history of COPD but his shortness of breath is bit worse and it hurts with a deep breaths denies any trauma to the upper or lower extremities denies any fever no chills no abdominal pain no symptoms of TIA or CVA. He denies any head injury no loss of consciousness no neck injury - Related Data Home Medications Medication Instructions Recorded Confirmed Montelukast [Singulair] 10 mg PO DAILY 03/16/14 12/31/17 amLODIPine [Norvasc] 5 mg PO QAM 07/05/14 12/31/17 ALPRAZolam [Xanax] 1 mg PO TID 09/20/15 12/31/17 Fluticasone/Vilanterol [Breo 1 puff INHALATION RT-DAILY 07/16/16 12/31/17 Ellipta 100-25 Mcg Inhaler] Desvenlafaxine [Pristiq ER] 100 mg PO DAILY 09/23/16 12/31/17 Umeclidinium [place] [Incruse 1 puff INHALATION RT-DAILY 10/08/16 12/31/17 Ellipta] Hydrocodone/Acetaminophen [[place] 1 tab PO QID PRN 11/06/16 12/31/17 10-325] Albuterol Inhaler [Ventolin Hfa 2 puff INHALATION RT-QID PRN 05/28/17 12/31/17 Inhaler] Famotidine [Pepcid] 20 mg PO DAILY 05/28/17 12/31/17 Lurasidone HCl [Latuda] 20 mg PO DAILY 06/27/17 12/31/17 Previous Rx's Medication Instructions Recorded Gabapentin [Neurontin] 100 mg PO TID #21 cap 07/07/17 hydrALAZINE HCL [Apresoline] 25 mg PO BID #60 tab 11/20/17 Benzocaine/Menthol Lozeng [Cepacol 1 each MUCOUS MEM Q1HR PRN #30 12/30/17 lozenge] lozenge guaiFENesin [Mucinex] 600 mg PO Q12HR PRN #30 tab 12/30/17 guaiFENesin-DM 100-10MG/5ML 10 ml PO Q6H PRN #30 cup 12/30/17 [Robitussin DM] predniSONE See Taper PO DIRECTED #18 tab 01/10/18 Levofloxacin [Levaquin] 500 mg PO DAILY #5 tab 01/30/18 Allergies Allergy/AdvReac Type Severity Reaction Status Date / Time peanut Allergy alg testing Verified 01/30/18 03:18 pollen extracts Allergy Unknown Verified 01/30/18 03:18 DUST Allergy alg testing Uncoded 01/30/18 03:18 Review of Systems ROS Statement: Those systems with pertinent positive or pertinent negative responses have been documented in the HPI. ROS Other: All systems not noted in ROS Statement are negative. Past Medical History Past Medical History: Atrial Flutter, Asthma, Chest Pain / Angina, COPD, GERD/ Reflux, Hypertension, Osteoarthritis (OA), Pneumonia, Sleep Apnea/CPAP/BIPAP Additional Past Medical History / Comment(s): Chronic neck and back pain-sees Dr. Trammell, CELE without device, RLS, shingles. History of Any Multi-Drug Resistant Organisms: None Reported Past Surgical History: Adenoidectomy, Bowel Resection, Cholecystectomy Additional Past Surgical History / Comment(s): Uvulectomy, bowel resection for large polyps, colonoscopy with polypectomies, nasal surgery x 2, bronchoscopy with lung bx, pain clinic procedures. Past Anesthesia/Blood Transfusion Reactions: Previous Problems w/ Anesthesia, Motion Sickness Additional Past Anesthesia/Blood Transfusion Reaction / Comment(s): states "during procedure of checking something on my left lung,I turned blue and I was brought right back out anesthesia and proc was cancelled". clausterphobia Past Psychological History: Anxiety, Bipolar, Depression, Panic Disorder Smoking Status: Former smoker Past Alcohol Use History: Heavy Past Drug Use History: None Reported - Past Family History Mother Family Medical History: Asthma Additional Family Medical History / Comment(s): at age 62 Father Family Medical History: CVA/TIA Additional Family Medical History / Comment(s): at age 90 General Exam - General Exam Comments Initial Comments: General: The patient is awake and alert, in mild distress because of the shoulder pain he said Skin: Skin is warm and dry and no rashes or lesions are noted. Eye: Pupils are equal, round and reactive to light, extra-ocular movements are intact; there is normal conjunctiva bilaterally. Ears, nose, mouth and throat: There are moist mucous membranes and no oral lesions. Neck: The neck is supple, there is no tenderness or JVD. Cardiovascular: There is a regular rate and rhythm. No murmur, rub or gallop is appreciated. Respiratory: To auscultation bilateral, no wheezing no rhonchi no distress respiratory gary noticed Gastrointestinal: Soft, non-distended, non-tender abdomen without masses or organomegaly noted. There is no rebound or guarding present. Bowel sounds are unremarkable. Back: There is no tenderness to palpation in the midline. There is no obvious deformity. Musculoskeletal: Decreased range of motion right shoulder because of the pain mildly tender over before meals joint no neurovascular compromise noticed on the right upper extremity Neurological: CN II-XII intact, Cranial nerves III through XII are intact. There are no obvious motor or sensory deficits. Coordination appears grossly intact. Speech is normal. Psychiatric: Cooperative, appropriate mood & affect, normal judgment. Limitations: no limitations Course Vital Signs 01/30/18 01/30/18 01/30/18 03:13 04:17 04:31 Temperature 98.2 F Pulse Rate 108 H 104 H Respiratory 18 19 Rate Blood Pressure 141/84 O2 Sat by Pulse 96 Oximetry 01/30/18 01/30/18 04:40 05:29 Temperature Pulse Rate 101 H 93 Respiratory 19 Rate Blood Pressure 122/64 O2 Sat by Pulse 97 Oximetry Medical Decision Making - Lab Data Result diagrams: 01/30/18 04:22 01/30/18 04:22 Lab Results 01/30/18 01/30/18 01/30/18 Range/Units 04:22 04:22 04:22 WBC 4.6 (3.8-10.6) k/uL RBC 3.89 L (4.30-5.90) m/uL Hgb 13.6 (13.0-17.5) gm/dL Hct 39.9 (39.0-53.0) % MCV 102.6 H (80.0-100.0) fL MCH 34.9 (25.0-35.0) pg MCHC 34.0 (31.0-37.0) g/dL RDW 15.0 (11.5-15.5) % Plt Count 243 (150-450) k/uL Neutrophils % 71 % Lymphocytes % 18 % Monocytes % 10 % Eosinophils % 0 % Basophils % 0 % Neutrophils # 3.3 (1.3-7.7) k/uL Lymphocytes # 0.8 L (1.0-4.8) k/uL Monocytes # 0.4 (0-1.0) k/uL Eosinophils # 0.0 (0-0.7) k/uL Basophils # 0.0 (0-0.2) k/uL Macrocytosis Slight PT (9.0-12.0) sec INR (<1.2) APTT (22.0-30.0) sec D-Dimer (<0.60) mg/L FEU Sodium 143 (137-145) mmol/L Potassium 3.8 (3.5-5.1) mmol/L Chloride 102 (98-107) mmol/L Carbon Dioxide 26 (22-30) mmol/L Anion Gap 15 mmol/L BUN 12 (9-20) mg/dL Creatinine 0.90 (0.66-1.25) mg/dL Est GFR (CKD-EPI)AfAm >90 (>60 ml/min/1.73 sqM) Est GFR (CKD-EPI)NonAf >90 (>60 ml/min/1.73 sqM) Glucose 175 H (74-99) mg/dL Calcium 9.1 (8.4-10.2) mg/dL Magnesium 1.8 (1.6-2.3) mg/dL Total Bilirubin 0.6 (0.2-1.3) mg/dL AST 33 (17-59) U/L ALT 66 (21-72) U/L Alkaline Phosphatase 60 (38-126) U/L Total Creatine Kinase 24 L (55-170) U/L CK-MB (CK-2) 0.9 (0.0-2.4) ng/mL CK-MB (CK-2) Rel Index 3.8 Troponin I <0.012 (0.000-0.034) ng/mL Total Protein 5.9 L (6.3-8.2) g/dL Albumin 3.7 (3.5-5.0) g/dL 01/30/18 Range/Units 04:22 WBC (3.8-10.6) k/uL RBC (4.30-5.90) m/uL Hgb (13.0-17.5) gm/dL Hct (39.0-53.0) % MCV (80.0-100.0) fL MCH (25.0-35.0) pg MCHC (31.0-37.0) g/dL RDW (11.5-15.5) % Plt Count (150-450) k/uL Neutrophils % % Lymphocytes % % Monocytes % % Eosinophils % % Basophils % % Neutrophils # (1.3-7.7) k/uL Lymphocytes # (1.0-4.8) k/uL Monocytes # (0-1.0) k/uL Eosinophils # (0-0.7) k/uL Basophils # (0-0.2) k/uL Macrocytosis PT 10.3 (9.0-12.0) sec INR 1.1 (<1.2) APTT 20.0 L (22.0-30.0) sec D-Dimer 0.61 H (<0.60) mg/L FEU Sodium (137-145) mmol/L Potassium (3.5-5.1) mmol/L Chloride (98-107) mmol/L Carbon Dioxide (22-30) mmol/L Anion Gap mmol/L BUN (9-20) mg/dL Creatinine (0.66-1.25) mg/dL Est GFR (CKD-EPI)AfAm (>60 ml/min/1.73 sqM) Est GFR (CKD-EPI)NonAf (>60 ml/min/1.73 sqM) Glucose (74-99) mg/dL Calcium (8.4-10.2) mg/dL Magnesium (1.6-2.3) mg/dL Total Bilirubin (0.2-1.3) mg/dL AST (17-59) U/L ALT (21-72) U/L Alkaline Phosphatase (38-126) U/L Total Creatine Kinase (55-170) U/L CK-MB (CK-2) (0.0-2.4) ng/mL CK-MB (CK-2) Rel Index Troponin I (0.000-0.034) ng/mL Total Protein (6.3-8.2) g/dL Albumin (3.5-5.0) g/dL Disposition Clinical Impression: Fall, Elevated d-dimer, Shortness of breath, Pneumonia, Shoulder contusion Disposition: HOME SELF-CARE Condition: Good Instructions: Fall Prevention for Older Adults (ED) Prescriptions: Levofloxacin [Levaquin] 500 mg PO DAILY #5 tab Is patient prescribed a controlled substance at d/c from ED?: No Referrals: Michael Nuñez MD [Primary Care Provider] - 1-2 days
--- NOTE | 2018-01-30 08:17 | CT ---
EXAMINATION TYPE: CT chest angio for PE DATE OF EXAM: 01/30/2018 COMPARISON: Prior chest CT 11/16/2017 HISTORY: SOB, chest pain, elevated d dimer CT DLP: 539 mGycm Automated exposure control for dose reduction was used. CONTRAST: CT Chest for pulmonary embolism performed with with IV Contrast, patient injected with 59 mL of Isovu e 370. Three-dimensional reconstructions performed on an alternate workstation. FINDINGS: LUNGS: The lungs are remarkable for some mild perihilar groundglass opacity, basilar atelectatic [place] ges, there are some air bronchograms at the right lung base, there is no concerning parenchymal mass or nodule identified. There is no pleural effusion or pneumothorax seen. The tracheobronchial tree is patent. MEDIASTINUM: There is satisfactory enhancement of the pulmonary artery and its branches, there is no CT evidence for pulmonary embolism. There are no greater than 1 cm hilar or mediastinal lymph nodes. No pericardial effusion is seen. AORTA: No additional significant abnormality is seen. OTHER: The liver shows low attenuation possibly due to hepatic steatosis. There are coronary artery calcifications.. IMPRESSION: No evident pulmonary embolism. Probable basilar atelectasis. There is perihilar groundglass opacity, correlate for early pulmonary edema, possible pneumonia, allergic alveolitis.
[2018-01-30 08:39] VITALS: BP 154/91; PULSE 92; RESP 20; TEMP 98.3
== END 2018-01-30 08:39 | disposition home or self-care (01) ==
LOC: EC 03:11
DX: S40.011A Contusion of right shoulder, initial encounter (principal); J18.9 Pneumonia, unspecified organism; R79.1 Abnormal coagulation profile; J44.9 Chronic obstructive pulmonary disease, unspecified; K21.9 Gastro-esophageal reflux disease without esophagitis; I10 Essential (primary) hypertension; F31.9 Bipolar disorder, unspecified; G47.30 Sleep apnea, unspecified; Z91.010 Allergy to peanuts; Z91.048 Other nonmedicinal substance allergy status; Z91.09 Other allergy status, other than to drugs and biological substances; Z79.51 Long term (current) use of inhaled steroids; Z79.899 Other long term (current) drug therapy; Z87.891 Personal history of nicotine dependence; W06.XXXA Fall from bed, initial encounter; Y92.009 Unspecified place in unspecified non-institutional (private) residence as the place of occurrence of the external cause
CPT/HCPCS: 99284; 96374; 96375; 96361 ×4; 36415; 94640; 93005; 85379; 80053; 82550; 82553; 83735; 84484; 85025; 85610; 85730; 73030; 71046; 71275; J2930; J2270; Q9967

== ENCOUNTER 2018-02-07 00:46 | Emergency (ER) | payer MEDICARE ==
[2018-02-07 00:54] VITALS: BP 127/79; PULSE 88; RESP 18; TEMP 98.3
--- NOTE | 2018-02-07 01:27 | ED ---
Fall HPI - General Chief Complaint: Fall Stated Complaint: Fall Time Seen by Provider: 02/07/18 01:17 Source: patient, RN notes reviewed Mode of arrival: wheelchair Limitations: no limitations - History of Present Illness Initial Comments: This is a 62-year-old male who presents to the emergency department with chief complaint of fall injury. Patient states that he sleeps on a hospital bed at home. He states that he fell from the bed at this evening. Patient states that this happened once last week as well. Patient complains of chronic neck pain but states that the pain is increased. Patient is a very poor historian. At first he states that he did not hit his head, then he states he is unsure. He denies blood thinner use. Patient also complains of right shoulder pain. He is unable to localize the pain. Denies any other injuries or trauma. Denies fevers or chills, chest pain or shortness of breath, abdominal pain, nausea or vomiting, dizziness or headache. - Related Data Home Medications Medication Instructions Recorded Confirmed Montelukast [Singulair] 10 mg PO DAILY 03/16/14 12/31/17 amLODIPine [Norvasc] 5 mg PO QAM 07/05/14 12/31/17 ALPRAZolam [Xanax] 1 mg PO TID 09/20/15 12/31/17 Fluticasone/Vilanterol [Breo 1 puff INHALATION RT-DAILY 07/16/16 12/31/17 Ellipta 100-25 Mcg Inhaler] Desvenlafaxine [Pristiq ER] 100 mg PO DAILY 09/23/16 12/31/17 Umeclidinium [place] [Incruse 1 puff INHALATION RT-DAILY 10/08/16 12/31/17 Ellipta] Hydrocodone/Acetaminophen [[place] 1 tab PO QID PRN 11/06/16 12/31/17 10-325] Albuterol Inhaler [Ventolin Hfa 2 puff INHALATION RT-QID PRN 05/28/17 12/31/17 Inhaler] Famotidine [Pepcid] 20 mg PO DAILY 05/28/17 12/31/17 Lurasidone HCl [Latuda] 20 mg PO DAILY 06/27/17 12/31/17 Previous Rx's Medication Instructions Recorded Gabapentin [Neurontin] 100 mg PO TID #21 cap 07/07/17 hydrALAZINE HCL [Apresoline] 25 mg PO BID #60 tab 11/20/17 Benzocaine/Menthol Lozeng [Cepacol 1 each MUCOUS MEM Q1HR PRN #30 12/30/17 lozenge] lozenge guaiFENesin [Mucinex] 600 mg PO Q12HR PRN #30 tab 12/30/17 guaiFENesin-DM 100-10MG/5ML 10 ml PO Q6H PRN #30 cup 12/30/17 [Robitussin DM] predniSONE See Taper PO DIRECTED #18 tab 01/10/18 Levofloxacin [Levaquin] 500 mg PO DAILY #5 tab 01/30/18 Allergies Allergy/AdvReac Type Severity Reaction Status Date / Time peanut Allergy alg testing Verified 02/07/18 00:54 pollen extracts Allergy Unknown Verified 02/07/18 00:54 DUST Allergy alg testing Uncoded 02/07/18 00:54 Review of Systems ROS Statement: Those systems with pertinent positive or pertinent negative responses have been documented in the HPI. ROS Other: All systems not noted in ROS Statement are negative. Past Medical History Past Medical History: Atrial Flutter, Asthma, Chest Pain / Angina, COPD, GERD/ Reflux, Hypertension, Osteoarthritis (OA), Pneumonia, Sleep Apnea/CPAP/BIPAP Additional Past Medical History / Comment(s): Chronic neck and back pain-sees Dr. Trammell, CELE without device, RLS, shingles. History of Any Multi-Drug Resistant Organisms: None Reported Past Surgical History: Adenoidectomy, Bowel Resection, Cholecystectomy Additional Past Surgical History / Comment(s): Uvulectomy, bowel resection for large polyps, colonoscopy with polypectomies, nasal surgery x 2, bronchoscopy with lung bx, pain clinic procedures. Past Anesthesia/Blood Transfusion Reactions: Previous Problems w/ Anesthesia, Motion Sickness Additional Past Anesthesia/Blood Transfusion Reaction / Comment(s): states "during procedure of checking something on my left lung,I turned blue and I was brought right back out anesthesia and proc was cancelled". clausterphobia Past Psychological History: Anxiety, Bipolar, Depression, Panic Disorder Smoking Status: Former smoker Past Alcohol Use History: Heavy Past Drug Use History: None Reported - Past Family History Mother Family Medical History: Asthma Additional Family Medical History / Comment(s): at age 62 Father Family Medical History: CVA/TIA Additional Family Medical History / Comment(s): at age 90 General Exam - General Exam Comments Initial Comments: General: Awake and alert, well-developed; in no apparent distress. HEENT: Head atraumatic, normocephalic. Pupils are equal, round and reactive to light. Extraocular movements intact. Oropharynx moist without erythema or exudate. Neck: Supple. Normal ROM. Mild tenderness along the midline and right posterior neck musculature. Cardiovascular: Regular rate and rhythm. No murmurs, rubs or gallops. Chest symmetrical. Respiratory: Lungs clear to auscultation bilaterally. No wheezes, rales or rhonchi. Normal respiratory effort with no use of accessory muscles. Abdomen: Soft, non-tender, non-distended. No rigidity, rebound or guarding. Normal bowel sounds in all 4 quadrants. Musculoskeletal: Normal ROM, no tenderness bilateral upper and lower extremities. Ambulating normally. Generalized tenderness on palpation of the right shoulder. Sensation is intact. Radial pulses are 2+ equal and palpable bilaterally. Skin: Bushyhead, warm and dry without rashes or lesions. Neurological: Alert and oriented x3. CN II-XII grossly intact. Speech is fluent and answers are appropriate. No focal neuro deficits. Psychiatric: Normal mood and affect. No overt signs of depression or anxiety noted. Limitations: no limitations Course Vital Signs 02/07/18 00:49 Temperature 98.3 F Pulse Rate 88 Respiratory 18 Rate Blood Pressure 127/79 O2 Sat by Pulse 94 L Oximetry Medical Decision Making - Medical Decision Making This is a 62-year-old male who presents to the emergency department with chief complaint of fall injury. Patient states that he fell out of bed this evening. He complains of increasing neck pain. Computed tomography scan of the neck and brain were obtained and revealed no acute abnormalities. Patient also complained of right shoulder pain. X-ray of right shoulder is negative. Throughout entire emergency department stay, patient has been requesting narcotics. Displaying drug-seeking behavior. Patient not given any narcotics while in the emergency department and will not be prescribed any. Vital signs are stable and patient is in no acute distress. He will be discharged home at this time. All questions answered. - Radiology Data Radiology results: report reviewed X-ray right shoulder impression: Negative right shoulder exam. CT brain and C-spine without contrast impression: There is evidence for mild left-sided mastoiditis. Mild cerebral atrophy. No acute intracranial abnormality. No significant change in the brain compared to old exam. Spinal a lot of changes in the cervical spine and probable ligamentous injury. No fracture. Disposition Clinical Impression: Shoulder pain, right, Neck pain Disposition: HOME SELF-CARE Condition: Good Instructions: Neck Pain (ED), Shoulder Pain (ED) Additional Instructions: Please rest, ice and take ibuprofen or Tylenol as needed for pain. Please follow up with primary care provider within 1-2 days. Return to emergency department if symptoms should worsen or any concerns arise. Is patient prescribed a controlled substance at d/c from ED?: No Referrals: Michael Nuñez MD [Primary Care Provider] - 1-2 days Time of Disposition: 02:30
[2018-02-07] MEDS ORDERED: LORazepam 1 MG TAB PO STA (01:31)
--- NOTE | 2018-02-07 02:04 | CT ---
EXAMINATION TYPE: CT brain kierstenine wo con DATE OF EXAM: 02/07/2018 COMPARISON: Head CT scan 11/22/2010 HISTORY: prior on synapse, fall from bed onto right side CT DLP: 1698.60 mGycm Automated exposure control for dose reduction was used. TECHNIQUE: CT scan of the head and cervical spine are performed without contrast. FINDINGS: There is mild cerebral cortical atrophy. There is no mass effect nor midline shift. There is no sign of intracranial hemorrhage. The calvarium is intact. There is minimal mucosal thickening in the left mastoid air cells. There is mild cervical kyphotic curvature. There is hypertrophic anterior spurring at C4-5 C5-6 C6-7. Facet joints are intact. Skull base is intact. There is no evidence of cervical spine fracture. IMPRESSION: There is evidence for mild left-sided mastoiditis. Mild cerebral atrophy. No acute intracranial abnor mality. No significant change in the brain compared to old exam. Spondylotic changes in the cervical spine and probable old ligamentous injury. No fracture.
--- NOTE | 2018-02-07 02:05 | XR ---
EXAMINATION TYPE: XR shoulder complete RT DATE OF EXAM: 02/07/2018 COMPARISON: 01/30/2018 HISTORY: Fall. Shoulder pain. TECHNIQUE: 3 views FINDINGS: I see no fracture nor dislocation. Joint spaces are normal. There are no pathologic calcifi cations. IMPRESSION: Negative right shoulder exam.
== END 2018-02-07 02:48 | disposition home or self-care (01) ==
LOC: EC 00:46
DX: M25.511 Pain in right shoulder (principal); M54.2 Cervicalgia; J44.9 Chronic obstructive pulmonary disease, unspecified; I48.92 Unspecified atrial flutter; K21.9 Gastro-esophageal reflux disease without esophagitis; I10 Essential (primary) hypertension; F31.9 Bipolar disorder, unspecified; F41.0 Panic disorder [episodic paroxysmal anxiety]; Z87.891 Personal history of nicotine dependence; Z79.51 Long term (current) use of inhaled steroids; Z79.899 Other long term (current) drug therapy; Z91.010 Allergy to peanuts; Z91.09 Other allergy status, other than to drugs and biological substances; W06.XXXA Fall from bed, initial encounter; Y92.009 Unspecified place in unspecified non-institutional (private) residence as the place of occurrence of the external cause
CPT/HCPCS: 70450; 72125; 99284

== ENCOUNTER 2018-02-11 22:26 | Emergency (ER) | payer MEDICARE ==
--- NOTE | 2018-02-11 23:49 | ED ---
Upper Extremity HPI - General Chief Complaint: Extremity Injury, Upper Stated Complaint: Right arm/shoulder pain Time Seen by Provider: 02/11/18 23:27 Source: patient Mode of arrival: wheelchair Limitations: no limitations - History of Present Illness Initial Comments: 62-year-old male patient presents the emergency department today for complaints of right shoulder pain. Patient states that he had a fall on 02/07/2018. States that he did land on the right shoulder. Patient states he was seen and evaluated here and had x-rays that were negative for any acute fractures or dislocations. Patient states that his home pain medication is not helping to control the pain in his shoulder. States it hurts whenever he moves it. Patient states it is tender to the touch. Patient states that he is unable to sleep due to the pain. He denies any numbness or tingling in the arm. Denies any pain radiation from the shoulder down the arm. Denies any previous injury to the shoulder. Patient denies any headache, neck pain, back pain, chest pain, shortness of breath, dizziness, weakness, abdominal pain, nausea, vomiting, or difficulties with bowel movements or urination. - Related Data Home Medications Medication Instructions Recorded Confirmed Montelukast [Singulair] 10 mg PO DAILY 03/16/14 02/11/18 amLODIPine [Norvasc] 5 mg PO QAM 07/05/14 02/11/18 ALPRAZolam [Xanax] 1 mg PO TID 09/20/15 02/11/18 Fluticasone/Vilanterol [Breo 1 puff INHALATION RT-DAILY 07/16/16 02/11/18 Ellipta 100-25 Mcg Inhaler] Desvenlafaxine [Pristiq ER] 100 mg PO DAILY 09/23/16 02/11/18 Umeclidinium [place] [Incruse 1 puff INHALATION RT-DAILY 10/08/16 02/11/18 Ellipta] Hydrocodone/Acetaminophen [[place] 1 tab PO QID PRN 11/06/16 02/11/18 10-325] Albuterol Inhaler [Ventolin Hfa 2 puff INHALATION RT-QID PRN 05/28/17 02/11/18 Inhaler] Famotidine [Pepcid] 20 mg PO DAILY 05/28/17 02/11/18 Lurasidone HCl [Latuda] 20 mg PO DAILY 06/27/17 02/11/18 Previous Rx's Medication Instructions Recorded Gabapentin [Neurontin] 100 mg PO TID #21 cap 07/07/17 hydrALAZINE HCL [Apresoline] 25 mg PO BID #60 tab 11/20/17 Allergies Allergy/AdvReac Type Severity Reaction Status Date / Time peanut Allergy alg testing Verified 02/11/18 23:22 pollen extracts Allergy Unknown Verified 02/11/18 23:22 DUST Allergy alg testing Uncoded 02/11/18 22:43 Review of Systems ROS Statement: Those systems with pertinent positive or pertinent negative responses have been documented in the HPI. ROS Other: All systems not noted in ROS Statement are negative. Past Medical History Past Medical History: Atrial Flutter, Asthma, Chest Pain / Angina, COPD, GERD/ Reflux, Hypertension, Osteoarthritis (OA), Pneumonia, Sleep Apnea/CPAP/BIPAP Additional Past Medical History / Comment(s): Chronic neck and back pain-sees Dr. Trammell, CELE without device, RLS, shingles. History of Any Multi-Drug Resistant Organisms: None Reported Past Surgical History: Adenoidectomy, Bowel Resection, Cholecystectomy Additional Past Surgical History / Comment(s): Uvulectomy, bowel resection for large polyps, colonoscopy with polypectomies, nasal surgery x 2, bronchoscopy with lung bx, pain clinic procedures. Past Anesthesia/Blood Transfusion Reactions: Previous Problems w/ Anesthesia, Motion Sickness Additional Past Anesthesia/Blood Transfusion Reaction / Comment(s): states "during procedure of checking something on my left lung,I turned blue and I was brought right back out anesthesia and proc was cancelled". clausterphobia Past Psychological History: Anxiety, Bipolar, Depression, Panic Disorder Smoking Status: Former smoker Past Alcohol Use History: Heavy Past Drug Use History: None Reported - Past Family History Mother Family Medical History: Asthma Additional Family Medical History / Comment(s): at age 62 Father Family Medical History: CVA/TIA Additional Family Medical History / Comment(s): at age 90 General Exam Limitations: no limitations General appearance: alert, in no apparent distress, other (The well-developed, well-nourished adult male patient in no acute distress. Vital signs upon presentation are temperature 98.2F, pulse 78, respirations 18, pulse ox 95% on room air, blood pressure 119/70.) Eye exam: Present: normal appearance, PERRL, EOMI. Absent: scleral icterus, conjunctival injection, periorbital swelling ENT exam: Present: normal exam, normal oropharynx, mucous membranes moist Respiratory exam: Present: wheezes (Diffuse expiratory wheezing to all posterior lung pedroza). Absent: normal lung sounds bilaterally, rales, rhonchi Cardiovascular Exam: Present: regular rate, normal rhythm, normal heart sounds. Absent: systolic murmur, diastolic murmur, rubs, gallop, clicks GI/Abdominal exam: Present: soft, normal bowel sounds. Absent: distended, tenderness, guarding, rebound, rigid Extremities exam: Present: normal inspection, full ROM, tenderness (Right shoulder tenderness.), normal capillary refill, other (Skin to the right shoulder is pink, warm, and dry. Cap refills less than 3 seconds. Patient has no deformity. Radial pulses 2+ and equal bilaterally.). Absent: pedal edema, joint swelling, calf tenderness Neurological exam: Present: alert, oriented X3, CN II-XII intact Psychiatric exam: Present: normal affect, normal mood Skin exam: Present: warm, dry, intact, normal color. Absent: rash Course Vital Signs 02/11/18 02/12/18 22:40 00:03 Temperature 98.2 F 98.5 F Pulse Rate 78 74 Respiratory 18 16 Rate Blood Pressure 119/70 168/70 O2 Sat by Pulse 95 98 Oximetry Medical Decision Making - Medical Decision Making 62-year-old male patient presented to the emergency department today for evaluation of right shoulder discomfort after expressing a fall on the . Did review x-ray obtained on the at his visit that day and it was negative for any acute fractures or dislocations. Did discuss these results with the patient. He was offered a shot of Toradol but then refused stating that it would not work for him. He requested pain medication multiple times. I told he would not receive any narcotics for this injury as he does take [place] 10 at home. Patient then agreed to take the Toradol. I told him to follow-up with orthopedics for further evaluation or to return in 7 days for repeat x- ray. He Is instructed follow up his primary care physician for recheck in 1-2 days. Return parameters discussed in detail. He verbalizes understanding and agree with this plan. - Radiology Data Radiology results: report reviewed X-ray obtained on 02/07/2018. X-rays show 3 views of the right shoulder there is no fracture nor dislocation. Joint spaces are normal. There are no pathologic calcifications. Impression by Dr. Howard shows negative right shoulder exam. Disposition Clinical Impression: Right shoulder strain Disposition: HOME SELF-CARE Condition: Good Instructions: Rotator Cuff Injury (ED) Additional Instructions: Take home pain medication as directed. Apply ice or heat to the right shoulder for assistance with pain control. Follow-up with orthopedic physician for recheck as soon as possible. Return here immediately for any new, worsening, or concerning symptoms. Is patient prescribed a controlled substance at d/c from ED?: No Referrals: Michael Nuñez MD [Primary Care Provider] - 1-2 days Romeo Page DO [Doctor of Osteopathic Medicine] - 1-2 days Time of Disposition: 23:49
[2018-02-11] MEDS ORDERED: KETOROLAC 30 MG/ML 1 ML VIAL IM STA (23:57)
[2018-02-12 00:03] VITALS: BP 168/70; PULSE 74; RESP 16; TEMP 98.5
== END 2018-02-12 00:03 | disposition home or self-care (01) ==
LOC: EC 22:26
DX: S46.911D Strain of unspecified muscle, fascia and tendon at shoulder and upper arm level, right arm, subsequent encounter (principal); F41.0 Panic disorder [episodic paroxysmal anxiety]; I48.92 Unspecified atrial flutter; J45.909 Unspecified asthma, uncomplicated; I10 Essential (primary) hypertension; J44.9 Chronic obstructive pulmonary disease, unspecified; M19.90 Unspecified osteoarthritis, unspecified site; F31.9 Bipolar disorder, unspecified; Z87.891 Personal history of nicotine dependence; W19.XXXD Unspecified fall, subsequent encounter
CPT/HCPCS: 99283; 96372; J1885

== ENCOUNTER 2018-02-21 21:55 | Inpatient (IN) | payer MEDICARE ==
[2018-02-21 23:21] LABS: Basophils % (A) 0 %; Eosinophils # (A) 0.1 k/uL (0-0.7); Eosinophils % (A) 1 %; HCT 43.7 % (39.0-53.0); HGB 14.7 gm/dL (13.0-17.5); Lymphocytes # (A) 0.7 k/uL (1.0-4.8); Lymphocytes % (A) 9 %; MCH 34.7 pg (25.0-35.0); MCHC 33.6 g/dL (31.0-37.0); MCV 103.3 fL (80.0-100.0); Macrocytosis Moderate; Monocytes # (A) 0.3 k/uL (0-1.0); Monocytes % (A) 4 %; Neutrophils # (A) 5.9 k/uL (1.3-7.7); Neutrophils % (A) 84 %; Platelet Count 191 k/uL (150-450); RBC 4.23 m/uL (4.30-5.90); RDW 15.9 % (11.5-15.5); WBC 7.1 k/uL (3.8-10.6)
[2018-02-21 23:28] LABS: INR 1.2 (<1.2); Prothrombin Time 11.4 sec (9.0-12.0)
[2018-02-21 23:32] LABS: Calcium 8.8 mg/dL (8.4-10.2); Magnesium 1.7 mg/dL (1.6-2.3); Potassium 4.1 mmol/L (3.5-5.1)
--- NOTE | 2018-02-21 23:45 | XR ---
EXAMINATION TYPE: XR chest 2V DATE OF EXAM: 02/21/2018 COMPARISON: 01/30/2018 HISTORY: Difficulty breathing TECHNIQUE: Frontal and lateral views of the chest are obtained. FINDINGS: Heart and mediastinum are normal. There is some infiltrate at the posterior lung base on t he lateral view. This is probably in the right lower lobe. The other lung pedroza are clear. There is no heart failure. IMPRESSION: No heart failure. There is probably a new small infiltrate at the right posterior lung b ase compared to last exam. Normal heart.
[2018-02-22] MEDS ORDERED: methylPREDNISolone SOD SUCCI 125 MG/2 ML VIAL IV STA (00:03)
[2018-02-22] MEDS ORDERED: KETOROLAC 30 MG/ML 1 ML VIAL IVP ONE (00:03)
--- NOTE | 2018-02-22 00:03 | ED ---
General Adult HPI - General Chief complaint: Shortness of Breath Stated complaint: SOB Time Seen by Provider: 02/21/18 22:30 Source: patient Mode of arrival: ambulatory Limitations: no limitations - History of Present Illness Initial comments: Milo is a 62-year-old male with a past medical history of COPD and chronic back pain who presents to the emergency department today for evaluation of shortness of breath and worsening back pain. Patient reports that throughout the day today he has developed progressively worsening shortness of breath, he states that he began using his nebulizer and his inhalers almost constantly, with only minimal relief in his shortness of breath. He states that after he did this for a number of hours he made the decision to come to the ER for reevaluation. Patient reports he has pain in his back and in the sides of his chest and he feels like he has broken his ribs from trying to breathe and from coughing so much. Patient states that he has chronic back pain and he is prescribed [place] 10's which she takes every 6 hours. Patient reports that he took his last dose at 9 PM and had no relief in his upper back pain at this time he made the decision to come to the ER for evaluation. She denies any fevers, chills, nausea, vomiting, abdominal pain. He denies any exertional chest pain, retrosternal chest pain or palpitations. - Related Data Home Medications Medication Instructions Recorded Confirmed Montelukast [Singulair] 10 mg PO DAILY 03/16/14 02/11/18 amLODIPine [Norvasc] 5 mg PO QAM 07/05/14 02/11/18 ALPRAZolam [Xanax] 1 mg PO TID 09/20/15 02/11/18 Fluticasone/Vilanterol [Breo 1 puff INHALATION RT-DAILY 07/16/16 02/11/18 Ellipta 100-25 Mcg Inhaler] Desvenlafaxine [Pristiq ER] 100 mg PO DAILY 09/23/16 02/11/18 Umeclidinium [place] [Incruse 1 puff INHALATION RT-DAILY 10/08/16 02/11/18 Ellipta] Hydrocodone/Acetaminophen [[place] 1 tab PO QID PRN 11/06/16 02/11/18 10-325] Albuterol Inhaler [Ventolin Hfa 2 puff INHALATION RT-QID PRN 05/28/17 02/11/18 Inhaler] Famotidine [Pepcid] 20 mg PO DAILY 05/28/17 02/11/18 Lurasidone HCl [Latuda] 20 mg PO DAILY 06/27/17 02/11/18 Previous Rx's Medication Instructions Recorded Gabapentin [Neurontin] 100 mg PO TID #21 cap 07/07/17 hydrALAZINE HCL [Apresoline] 25 mg PO BID #60 tab 11/20/17 Allergies Allergy/AdvReac Type Severity Reaction Status Date / Time peanut Allergy alg testing Verified 02/21/18 21:59 pollen extracts Allergy Unknown Verified 02/21/18 21:59 DUST Allergy alg testing Uncoded 02/21/18 21:59 Review of Systems ROS Statement: Those systems with pertinent positive or pertinent negative responses have been documented in the HPI. ROS Other: All systems not noted in ROS Statement are negative. Constitutional: Denies: fever Eyes: Denies: eye pain ENT: Denies: throat pain Respiratory: Reports: cough, dyspnea, wheezes Cardiovascular: Reports: dyspnea on exertion. Denies: chest pain, edema Endocrine: Reports: fatigue Gastrointestinal: Denies: abdominal pain, nausea, vomiting Genitourinary: Denies: dysuria Musculoskeletal: Denies: back pain Skin: Reports: rash Neurological: Denies: headache, weakness Psychiatric: Reports: anxiety. Denies: depression Hematological/Lymphatic: Denies: easy bleeding Past Medical History Past Medical History: Atrial Flutter, Asthma, Chest Pain / Angina, COPD, GERD/ Reflux, Hypertension, Osteoarthritis (OA), Pneumonia, Sleep Apnea/CPAP/BIPAP Additional Past Medical History / Comment(s): Chronic neck and back pain-sees Dr. Trammell, CELE without device, RLS, shingles. History of Any Multi-Drug Resistant Organisms: None Reported Past Surgical History: Adenoidectomy, Bowel Resection, Cholecystectomy Additional Past Surgical History / Comment(s): Uvulectomy, bowel resection for large polyps, colonoscopy with polypectomies, nasal surgery x 2, bronchoscopy with lung bx, pain clinic procedures., Past Anesthesia/Blood Transfusion Reactions: Previous Problems w/ Anesthesia, Motion Sickness Additional Past Anesthesia/Blood Transfusion Reaction / Comment(s): states "during procedure of checking something on my left lung,I turned blue and I was brought right back out anesthesia and proc was cancelled". clausterphobia Past Psychological History: Anxiety, Bipolar, Depression, Panic Disorder Smoking Status: Former smoker Past Alcohol Use History: Heavy Past Drug Use History: None Reported - Past Family History Mother Family Medical History: Asthma Additional Family Medical History / Comment(s): at age 62 Father Family Medical History: CVA/TIA Additional Family Medical History / Comment(s): at age 90 General Exam Limitations: no limitations General appearance: alert, in no apparent distress Head exam: Present: atraumatic, normocephalic Eye exam: Present: normal appearance, PERRL ENT exam: Present: normal exam Neck exam: Present: normal inspection Respiratory exam: Present: wheezes Cardiovascular Exam: Present: regular rate GI/Abdominal exam: Present: soft. Absent: distended Rectal exam: Present: deferred Extremities exam: Present: normal inspection, full ROM Back exam: Present: tenderness, paraspinal tenderness, rash noted Neurological exam: Present: alert, oriented X3 Psychiatric exam: Present: anxious Skin exam: Present: warm, dry, rash Course Vital Signs 02/21/18 21:56 Temperature 98.7 F Pulse Rate 100 Respiratory 18 Rate Blood Pressure 129/77 O2 Sat by Pulse 93 L Oximetry - Reevaluation(s) Reevaluation #1: Patient was reevaluated, noted have oxygen saturation of 89% while sitting. Exertional dyspnea upon standing. 02/22/18 00:11 EKG Findings - EKG Comments: EKG Findings:: EKG and at 2300, rate is 97, rhythm is sinus, normal axis, normal intervals, CT 132, QRS 94, QTC 492, there is poor baseline but there is no evidence of acute ST elevations or depressions. Medical Decision Making - Medical Decision Making The patient was seen and evaluated, history is obtained from the patient as well as review of medical record Patient with a history of COPD, presented tachycardic, afebrile, oxygen saturations in the low 90s at rest Labs and imaging were ordered X-ray is suggestive of a possible early right lower lobe pneumonia - Rocephin and azithromycin ordered Patient continues to wheeze, steroids and DuoNeb's ordered Results were discussed with the patient who states he does not feel safe being discharged home. He states that he gets very short of breath and panicked that he can't breathe and he will call 911 and have to come back to the hospital. Patient was noted to have an oxygen saturation of 89% with conversation, he reported feeling more short of breath with talking Patient care was discussed with the patient's primary care physician Dr. Lawson who is very familiar with this patient. He also expresses concern that if the patient is discharged home he will immediately call 911 and return because he has significant anxieties about a shortness of breath. He agrees with the plan to THE patient for COPD exacerbation and right lower lobe pneumonia. Admission orders were placed. - Lab Data Result diagrams: 02/21/18 23:11 02/21/18 23:11 Lab Results 02/21/18 02/21/18 02/21/18 Range/Units 23:11 23:11 23:11 WBC 7.1 (3.8-10.6) k/uL RBC 4.23 L (4.30-5.90) m/uL Hgb 14.7 (13.0-17.5) gm/dL Hct 43.7 (39.0-53.0) % MCV 103.3 H (80.0-100.0) fL MCH 34.7 (25.0-35.0) pg MCHC 33.6 (31.0-37.0) g/dL RDW 15.9 H (11.5-15.5) % Plt Count 191 (150-450) k/uL Neutrophils % 84 % Lymphocytes % 9 % Monocytes % 4 % Eosinophils % 1 % Basophils % 0 % Neutrophils # 5.9 (1.3-7.7) k/uL Lymphocytes # 0.7 L (1.0-4.8) k/uL Monocytes # 0.3 (0-1.0) k/uL Eosinophils # 0.1 (0-0.7) k/uL Basophils # 0.0 (0-0.2) k/uL Macrocytosis Moderate PT (9.0-12.0) sec INR (<1.2) Sodium 140 (137-145) mmol/L Potassium 4.1 (3.5-5.1) mmol/L Chloride 102 (98-107) mmol/L Carbon Dioxide 26 (22-30) mmol/L Anion Gap 12 mmol/L BUN 13 (9-20) mg/dL Creatinine 1.08 (0.66-1.25) mg/dL Est GFR (CKD-EPI)AfAm 85 (>60 ml/min/1.73 sqM) Est GFR (CKD-EPI)NonAf 74 (>60 ml/min/1.73 sqM) Glucose 142 H (74-99) mg/dL Calcium 8.8 (8.4-10.2) mg/dL Magnesium 1.7 (1.6-2.3) mg/dL Troponin I (0.000-0.034) ng/mL NT-Pro-B Natriuret Pep 82 pg/mL 02/21/18 02/21/18 Range/Units 23:11 23:11 WBC (3.8-10.6) k/uL RBC (4.30-5.90) m/uL Hgb (13.0-17.5) gm/dL Hct (39.0-53.0) % MCV (80.0-100.0) fL MCH (25.0-35.0) pg MCHC (31.0-37.0) g/dL RDW (11.5-15.5) % Plt Count (150-450) k/uL Neutrophils % % Lymphocytes % % Monocytes % % Eosinophils % % Basophils % % Neutrophils # (1.3-7.7) k/uL Lymphocytes # (1.0-4.8) k/uL Monocytes # (0-1.0) k/uL Eosinophils # (0-0.7) k/uL Basophils # (0-0.2) k/uL Macrocytosis PT 11.4 (9.0-12.0) sec INR 1.2 H (<1.2) Sodium (137-145) mmol/L Potassium (3.5-5.1) mmol/L Chloride (98-107) mmol/L Carbon Dioxide (22-30) mmol/L Anion Gap mmol/L BUN (9-20) mg/dL Creatinine (0.66-1.25) mg/dL Est GFR (CKD-EPI)AfAm (>60 ml/min/1.73 sqM) Est GFR (CKD-EPI)NonAf (>60 ml/min/1.73 sqM) Glucose (74-99) mg/dL Calcium (8.4-10.2) mg/dL Magnesium (1.6-2.3) mg/dL Troponin I 0.012 (0.000-0.034) ng/mL NT-Pro-B Natriuret Pep pg/mL Disposition Clinical Impression: Right lower lobe pneumonia, COPD exacerbation Disposition: ADMITTED IP TO THIS HOSP Referrals: Michael Nuñez MD [Primary Care Provider] - 1-2 days Decision Time: 00:21
[2018-02-22] MEDS ORDERED: AZITHROMYCIN 500 MG TAB PO STA (00:05)
[2018-02-22] MEDS ORDERED: cefTRIAXone IN SWFI 1,000 MG/10 ML SYRINGE IVP STA (00:12)
[2018-02-22] MEDS ORDERED: AZITHROMYCIN 500 MG in DEXTROSE 5% IN WATER 250 ML IVPB STA ×2 (00:12)
[2018-02-22] MEDS: HYDROcodone/APAP 10-325MG 1 EACH TAB PO PRN ×2 (01:16→08:06)
[2018-02-22] MEDS ORDERED: NALOXONE 0.4 MG/ML 1 ML VIAL IV PRN ×2 (01:37→01:38)
[2018-02-22] MEDS: IPRATROPIUM-ALBUTEROL 3 ML NEB INHALATION SCH ×6 (03:59→23:17)
[2018-02-22 07:31] LABS: Glucose,Whole Blood 179 mg/dL (75-99)
[2018-02-22] MEDS: GABAPENTIN 100 MG CAP PO SCH ×3 (08:05→22:04)
[2018-02-22] MEDS: DESVENLAFAXINE SUCCINATE 50 MG TAB.ER.24H PO SCH (08:05)
[2018-02-22] MEDS: amLODIPine 5 MG TAB PO SCH (08:05)
[2018-02-22] MEDS: LURASIDONE 40 MG TAB PO SCH (08:05)
[2018-02-22] MEDS: FAMOTIDINE 20 MG TAB PO SCH (08:06)
[2018-02-22] MEDS: hydrALAZINE HCL 25 MG TAB PO SCH ×2 (08:06→22:04)
[2018-02-22] MEDS ORDERED: ALBUTEROL NEBULIZED 2.5 MG/3 ML INHALATION PRN (10:53)
--- NOTE | 2018-02-22 10:58 | P.HPIM ---
History of Present Illness H&P Date: 02/22/18 Chief Complaint: Shortness of breath 62-year-old male who presented to the emergency room with a chief complaint of shortness of breath. Patient reports shortness of breath that is increasing in severity over the last two days. Patient also reports increased coughing. He denies chest pain or pressure at this time. Denies fever or chills. Denies nausea or vomiting. Reports back pain, which is chronic. Denies any additional areas of pain or discomfort. He states he has been using his nebulizer machine multiple times during the day recently but it was not improving his symptoms so he came to the ER for further evaluation. The patient has a history of COPD, alcohol abuse (last admission reported drinking a fifth of whiskey a week), pneumonia, anxiety, depression, bipolar disorder, and chronic neck and back pain. He sees Dr. Trammell outpatient for pain management. He has a history of sleep apnea, but reports he does not wear his CPAP because it is old and he needs to repeat a sleep study to get a new one and has not completed it. Chest x-ray: No evidence of heart failure. Possible new small infiltrate at the right posterior lung base. Laboratory data: WBC 7.1. Hemoglobin 14.7. Platelet count 191. Sodium 140. Potassium 4.1. BUN 13. Creatinine 1.08. Glucose 142. Magnesium 1.7. Troponin negative 1. BNP 82. The patient was admitted to the hospital under the care of Dr. Nuñez. Review of Systems Those systems with pertinent positive or pertinent negative responses have been documented in the HPI Past Medical History Past Medical History: Atrial Flutter, Asthma, Chest Pain / Angina, COPD, GERD/ Reflux, Hypertension, Osteoarthritis (OA), Pneumonia, Sleep Apnea/CPAP/BIPAP Additional Past Medical History / Comment(s): Chronic neck and back pain-sees Dr. Trammell, CELE without device, RLS, shingles. Shingles 2017. History of Any Multi-Drug Resistant Organisms: None Reported Past Surgical History: Adenoidectomy, Bowel Resection, Cholecystectomy Additional Past Surgical History / Comment(s): Uvulectomy, bowel resection for large polyps, colonoscopy with polypectomies, nasal surgery x 2, bronchoscopy with lung bx, pain clinic procedures., Past Anesthesia/Blood Transfusion Reactions: Previous Problems w/ Anesthesia, Motion Sickness Additional Past Anesthesia/Blood Transfusion Reaction / Comment(s): states "during procedure of checking something on my left lung,I turned blue and I was brought right back out anesthesia and proc was cancelled". 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 No animal exposures. He has stopped smoking. He has a history of heavy alcohol use but that's been many years. Denies recreational drug use Smoking Status: Former smoker Past Alcohol Use History: Heavy Additional Past Alcohol Use History / Comment(s): Started smoking age 19(1974) smoked 1 ppd and quit 1987 Past Drug Use History: None Reported - Past Family History Mother Family Medical History: Asthma Additional Family Medical History / Comment(s): at age 62 Father Family Medical History: CVA/TIA Additional Family Medical History / Comment(s): at age 90 Medications and Allergies Home Medications Medication Instructions Recorded Confirmed Type Montelukast [Singulair] 10 mg PO DAILY 03/16/14 02/22/18 History amLODIPine [Norvasc] 5 mg PO QAM 07/05/14 02/22/18 History ALPRAZolam [Xanax] 1 mg PO TID 09/20/15 02/22/18 History Fluticasone/Vilanterol [Breo 1 puff INHALATION RT-DAILY 07/16/16 02/22/18 History Ellipta 100-25 Mcg Inhaler] Desvenlafaxine [Pristiq ER] 100 mg PO DAILY 09/23/16 02/22/18 History Umeclidinium [place] [Incruse 1 puff INHALATION RT-DAILY 10/08/16 02/22/18 History Ellipta] Hydrocodone/Acetaminophen [[place] 1 tab PO QID PRN 11/06/16 02/22/18 History 10-325] Albuterol Inhaler [Ventolin Hfa 2 puff INHALATION RT-QID PRN 05/28/17 02/22/18 History Inhaler] Famotidine [Pepcid] 20 mg PO DAILY 05/28/17 02/22/18 History Lurasidone HCl [Latuda] 20 mg PO DAILY 06/27/17 02/22/18 History Gabapentin [Neurontin] 100 mg PO TID #21 cap 07/07/17 02/22/18 Rx hydrALAZINE HCL [Apresoline] 25 mg PO BID #60 tab 11/20/17 02/22/18 Rx Dutasteride [Avodart] 0.5 mg PO DAILY 02/22/18 02/22/18 History Tamsulosin HCl [Flomax] 0.4 mg PO DAILY 02/22/18 02/22/18 History Allergies Allergy/AdvReac Type Severity Reaction Status Date / Time peanut Allergy alg testing Verified 02/22/18 08:17 pollen extracts Allergy Unknown Verified 02/22/18 08:17 DUST Allergy alg testing Uncoded 02/21/18 21:59 Physical Exam Vitals: Vital Signs Temp Pulse Pulse Resp BP BP Pulse Ox 02/22/18 07:24 80 02/22/18 07:12 80 02/22/18 07:00 98.4 F 88 18 153/81 94 L 02/22/18 04:07 84 02/22/18 03:59 80 02/22/18 03:30 76 02/22/18 02:45 97.9 F 76 18 144/81 93 L 02/22/18 02:08 97.9 F 82 18 98/57 95 02/21/18 21:56 98.7 F 100 18 129/77 93 L Intake and Output 02/21/18 02/22/18 02/22/18 22:59 06:59 14:59 Intake Total 480 Balance 480 Intake: Oral 480 Other: # Voids 1 Weight 107.501 kg GENERAL: This is a 62-year-old male in no apparent distress at the time of examination. Pleasant and cooperative. HEENT: Head is atraumatic, normocephalic. Pupils are equal, round, and reactive to light. Sclerae anicteric. Conjunctivae are clear. Mucus membranes of the mouth are moist. Neck is supple. RESPIRATORY: Coarse throughout with scattered inspiratory and expiratory wheezing. No crackles noted. No use of accessory muscles. Patient maintaining oxygen saturation greater than 92%. CARDIOVASCULAR: Regular rate and rhythm. S1 and S2 noted. No systolic or diastolic murmur auscultated. No JVD noted. No S3 or S4 noted. GASTROINTESTINAL: No distention noted. Abdomen soft and round. Normal active bowel sounds auscultated x 4 quadrants. No pain or tenderness noted upon palpation. INTEGUMENTARY: No cyanosis. No jaundice. No rashes noted. No cellulitis noted. EXTREMITIES: 2+ peripheral pulses. No evidence of peripheral edema. No calf tenderness noted. NEUROLOGIC: Cranial nerves II-XII intact. PSYCHIATRIC: Awake, alert, and oriented X 3. Appropriate affect. Intact judgement and insight. Results CBC & Chem 7: 02/21/18 23:11 02/21/18 23:11 Labs: Abnormal Lab Results - Last 24 Hours (Table) 02/21/18 02/21/18 02/21/18 Range/Units 23:11 23:11 23:11 RBC 4.23 L (4.30-5.90) m/uL MCV 103.3 H (80.0-100.0) fL RDW 15.9 H (11.5-15.5) % Lymphocytes # 0.7 L (1.0-4.8) k/uL INR 1.2 H (<1.2) Glucose 142 H (74-99) mg/dL POC Glucose (mg/dL) (75-99) mg/dL 02/22/18 Range/Units 07:02 RBC (4.30-5.90) m/uL MCV (80.0-100.0) fL RDW (11.5-15.5) % Lymphocytes # (1.0-4.8) k/uL INR (<1.2) Glucose (74-99) mg/dL POC Glucose (mg/dL) 179 H (75-99) mg/dL Thrombosis Risk Factor Assmnt - Choose All That Apply Each Factor Represents 1 point: Abnormal pulmonary function (COPD), Obesity ( BMI >25), Serious lung disease incl. pneumonia (< 1month) Each Risk Factor Represents 2 Points: Age 61-74 years Other congenital or acquired thrombophilia - If yes, enter type in comment: No Thrombosis Risk Factor Assessment Total Risk Factor Score: 5 Thrombosis Risk Factor Assessment Level: High Risk Assessment and Plan Plan: ASSESSMENT: Acute exacerbation of chronic obstructive pulmonary disease Possible right lower lobe pneumonia per xray, clinically the patient has s/s more suggestive of COPD exac rather than pneumonia but will repeat cxr and consult pulmonary History of obstructive sleep apnea, noncompliant with CPAP Essential hypertension Chronic back and neck pain, sees Dr. Trammell outpatient per pain management Generalized anxiety disorder Depression Bipolar disorder Obesity: BMI 34.0 Daily alcohol use, patient reports drinking one fifth of whiskey weekly PLAN: Consult pulmonary, Dr. Granados, for evaluation Repeat chest x-ray IV steroids: 60 mg every 6 hours Continue antibiotics Nebulizer treatments IS 10 times an hour Home meds as appropriate Monitor labs GI prophylaxis: Pepcid 20mg PO daily DVT prophylaxis: SCDs to bilateral LE Monitor vital signs and address as appropriate Discharge planning: Patient to return home when stable Further recommendations pending patient's course Nurse practitioner note has been reviewed by physician. Signing provider agrees with the documented findings, assessment, and plan of care.
[2018-02-22] MEDS: methylPREDNISolone SOD SUCCI 125 MG/2 ML VIAL IV SCH ×3 (11:08→23:44)
[2018-02-22] MEDS ORDERED: AZITHROMYCIN 500 MG TAB PO SCH (11:30)
[2018-02-22 11:55] LABS: Glucose,Whole Blood 183 mg/dL (75-99)
[2018-02-22] MEDS: INSULIN ASPART 100 UNIT/ML 1 ML 10 ML VIAL SQ SCH ×3 (12:32→22:03)
[2018-02-22] MEDS: oxyCODONE-APAP 10-325MG 1 EACH TAB PO PRN ×3 (13:42→22:05)
[2018-02-22] MEDS: ALPRAZolam 1 MG TAB PO SCH ×2 (15:22→22:04)
--- NOTE | 2018-02-22 16:20 | XR ---
EXAMINATION TYPE: XR chest 2V DATE OF EXAM: 02/22/2018 COMPARISON: 02/21/2018 HISTORY: Shortness of breath TECHNIQUE: Frontal and lateral views of the chest are obtained. FINDINGS: Scattered senescent parenchymal changes noted. Hyperinflation compatible with COPD. No evidence for infiltrate. No evidence for atelectasis. Heart size is stable. Mediastinal structures are stable and grossly unremarkable. No evidence for hilar prominence. Degenerative changes dorsal spine. IMPRESSION: 1. No evidence for acute pulmonary disease.
--- NOTE | 2018-02-22 16:32 | P.CONS ---
History of Present Illness - Chief Complaint Medical debility - History of Present Illness I had the opportunity to see patient for inpatient rehab consultation with regard to medical debility. He was admitted to [facility] earlier today with complaints of abdominal pain that was severe. Also no problems or shortness of breath with diagnosis of pneumonia. She reports falling out of bed and apparently while asleep, earlier today. Chest x-ray done and negative. Review of Systems Review of systems: ENT: Denies sneezes or discharge. Eyes: Denies discharge or photophobia. Cardiac: Denies chest pain or palpitation. Pulmonary: shortness of breath. Gastrointestinal: Abdominal pain. Genitourinary: Denies discharge or frequency. Musculoskeletal: Long-standing back pain which patient reports is worse today. Neurologic: Denies motor or sensory change. Endocrine: Denies shakes or sweats. Oncology: Denies cancers. Dermatologic: Denies rash, itching, pruritus. ALLERGY/immunology: Denies sneezes, rashes. Past Medical History Past Medical History: Atrial Flutter, Asthma, Chest Pain / Angina, COPD, GERD/ Reflux, Hypertension, Osteoarthritis (OA), Pneumonia, Sleep Apnea/CPAP/BIPAP Additional Past Medical History / Comment(s): Chronic neck and back pain-sees Dr. Trammell, CELE without device, RLS, shingles. Shingles 2017. History of Any Multi-Drug Resistant Organisms: None Reported Past Surgical History: Adenoidectomy, Bowel Resection, Cholecystectomy Additional Past Surgical History / Comment(s): Uvulectomy, bowel resection for large polyps, colonoscopy with polypectomies, nasal surgery x 2, bronchoscopy with lung bx, pain clinic procedures., Past Anesthesia/Blood Transfusion Reactions: Previous Problems w/ Anesthesia, Motion Sickness Additional Past Anesthesia/Blood Transfusion Reaction / Comm: states "during procedure of checking something on my left lung,I turned blue and I was brought right back out anesthesia and proc was cancelled". 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 No animal exposures. He has stopped smoking. He has a history of heavy alcohol use but that's been many years. Denies recreational drug use Smoking Status: Former smoker Past Alcohol Use History: Heavy Additional Past Alcohol Use History / Comment(s): Started smoking age 19(1974) smoked 1 ppd and quit 1987 Past Drug Use History: None Reported - Past Family History Mother Family Medical History: Asthma Additional Family Medical History / Comment(s): at age 62 Father Family Medical History: CVA/TIA Additional Family Medical History / Comment(s): at age 90 Medications and Allergies Home Medications Medication Instructions Recorded Confirmed Type Montelukast [Singulair] 10 mg PO DAILY 03/16/14 02/22/18 History amLODIPine [Norvasc] 5 mg PO QAM 07/05/14 02/22/18 History ALPRAZolam [Xanax] 1 mg PO TID 09/20/15 02/22/18 History Fluticasone/Vilanterol [Breo 1 puff INHALATION RT-DAILY 07/16/16 02/22/18 History Ellipta 100-25 Mcg Inhaler] Desvenlafaxine [Pristiq ER] 100 mg PO DAILY 09/23/16 02/22/18 History Umeclidinium [place] [Incruse 1 puff INHALATION RT-DAILY 10/08/16 02/22/18 History Ellipta] Hydrocodone/Acetaminophen [[place] 1 tab PO QID PRN 11/06/16 02/22/18 History 10-325] Albuterol Inhaler [Ventolin Hfa 2 puff INHALATION RT-QID PRN 05/28/17 02/22/18 History Inhaler] Famotidine [Pepcid] 20 mg PO DAILY 05/28/17 02/22/18 History Lurasidone HCl [Latuda] 20 mg PO DAILY 06/27/17 02/22/18 History Gabapentin [Neurontin] 100 mg PO TID #21 cap 07/07/17 02/22/18 Rx hydrALAZINE HCL [Apresoline] 25 mg PO BID #60 tab 11/20/17 02/22/18 Rx Dutasteride [Avodart] 0.5 mg PO DAILY 02/22/18 02/22/18 History Tamsulosin HCl [Flomax] 0.4 mg PO DAILY 02/22/18 02/22/18 History Allergies Allergy/AdvReac Type Severity Reaction Status Date / Time peanut Allergy alg testing Verified 02/22/18 08:17 pollen extracts Allergy Unknown Verified 02/22/18 08:17 DUST Allergy alg testing Uncoded 02/21/18 21:59 Physical Exam Vitals: Vital Signs Temp Pulse Pulse Resp BP BP Pulse Ox 02/22/18 15:57 94 02/22/18 15:47 94 02/22/18 15:00 97.0 F L 94 20 163/84 91 L 02/22/18 11:41 88 02/22/18 11:29 88 02/22/18 07:24 80 02/22/18 07:12 80 02/22/18 07:00 98.4 F 88 18 153/81 94 L 02/22/18 04:07 84 02/22/18 03:59 80 02/22/18 03:30 76 02/22/18 02:45 97.9 F 76 18 144/81 93 L 02/22/18 02:08 97.9 F 82 18 98/57 95 02/21/18 21:56 98.7 F 100 18 129/77 93 L Intake and Output 02/22/18 02/22/18 02/22/18 06:59 14:59 22:59 Intake Total 480 Output Total 500 Balance -20 Intake: Oral 480 Output: Urine 500 Other: # Voids 1 Skin: Good color, texture, turgor. General: Overweight build and comfortable appearance. Head: Normocephalic, atraumatic. Eyes: Symmetric. Pupils equal round. Ears: Symmetric. Hearing within normal limits. Mouth: Clear. Neck: Supple. Carotid without bruit. Cardiac: Regular rate and rhythm. Lungs: Clear anteriorly and posteriorly. Abdomen: Soft active nontender, overweight. Extremities: Normal tone. Neurological: Mental status: Alert, cooperative, pleasant. Cranial nerves: Symmetric facial tone and trapezius. Motor: Normal strength and isolation all 4 limbs. Sensation: Intact throughout. DTRs: Symmetric and equal throughout. Mobility: Sits and stands with standby assistance. Results CBC & Chem 7: 02/21/18 23:11 02/21/18 23:11 Labs: Abnormal Lab Results - Last 24 Hours (Table) 02/21/18 02/21/18 02/21/18 Range/Units 23:11 23:11 23:11 RBC 4.23 L (4.30-5.90) m/uL MCV 103.3 H (80.0-100.0) fL RDW 15.9 H (11.5-15.5) % Lymphocytes # 0.7 L (1.0-4.8) k/uL INR 1.2 H (<1.2) Glucose 142 H (74-99) mg/dL POC Glucose (mg/dL) (75-99) mg/dL 02/22/18 02/22/18 Range/Units 07:02 11:49 RBC (4.30-5.90) m/uL MCV (80.0-100.0) fL RDW (11.5-15.5) % Lymphocytes # (1.0-4.8) k/uL INR (<1.2) Glucose (74-99) mg/dL POC Glucose (mg/dL) 179 H 183 H (75-99) mg/dL Assessment and Plan (1) Right lower lobe pneumonia Current Visit: Yes Status: Acute Code(s): J18.1 - LOBAR PNEUMONIA, UNSPECIFIED ORGANISM SNOMED Code(s): 678900528 Plan: Impression: 1. Medical debility. 2. Right lower lobe pneumonia. 3. COPD exacerbation. 4. Chronic and long-standing low back pain. Comments and plan: At this time PT and OT are ongoing with regard to medical debility. With regard to pain, patient reports that Ida 10 4 times a day is no longer effective. He has requested Percocet q 4 currently. He complained that it is only 4 times a day. In fact review of orders indicates that Percocet is every 4 when necessary. Note that I did discuss with him concern of memory problems and possible respiratory depression and would be unwilling to increase pain medication beyond 4 per day. Not discussed with him, my concern is is a uses hospitalizations as a pain medication strategy, again I'm reluctant to advanced pain medication beyond 4 per day. Despite this, Percocet ordered every 4 when necessary, already. Thus I will not make any changes. Patient should not require description upon discharge as he should be covered already by my chronic pain management.
[2018-02-22 17:20] LABS: Glucose,Whole Blood 174 mg/dL (75-99)
--- NOTE | 2018-02-22 17:44 | P.CNPUL ---
History of Present Illness Consult date: 02/22/18 Reason for consult: dyspnea, cough, COPD, pneumonia, pulmonary hypertension, obstructive sleep apnea Chief complaint: Cough shortness of breath started 3 days ago History of present illness: 62-year-old morbidly obese male with history of chronic persistent asthma of severe category along with severe COPD patient is the home oxygen-dependent also has severe degree of obstructive sleep apnea and does not use CPAP machine patient has been feeling fairly well and has been on baseline shortness of breath and cough however 2 days prior to coming into the hospital started having progressive increasing respiratory difficulty with dyspnea on exertion symptoms of progressive the phlegm was thick tenacious and difficult to expectorate has a pino PERRL-like appearance subsequently started turning into yellow to green with those problem came into emergency department was seen eval reexamined and subsequently admitted into the hospital, patient also has a history of chronic back pain which is not much change her different from baseline it appears that when he has exacerbation of COPD symptoms of back pain also gets worse Ammann on specific questioning denies any seizure-like activity loss of consciousness), denies any chest pain except symptoms of chest tightness , denies any hemoptysis, denies any bowel or bladder dysfunction Review of Systems All systems: negative Past Medical History Past Medical History: Atrial Flutter, Asthma, Chest Pain / Angina, COPD, GERD/ Reflux, Hypertension, Osteoarthritis (OA), Pneumonia, Sleep Apnea/CPAP/BIPAP Additional Past Medical History / Comment(s): Chronic neck and back pain-sees Dr. Trammell, CELE without device, RLS, shingles. Shingles 2017. History of Any Multi-Drug Resistant Organisms: None Reported Past Surgical History: Adenoidectomy, Bowel Resection, Cholecystectomy Additional Past Surgical History / Comment(s): Uvulectomy, bowel resection for large polyps, colonoscopy with polypectomies, nasal surgery x 2, bronchoscopy with lung bx, pain clinic procedures., Past Anesthesia/Blood Transfusion Reactions: Previous Problems w/ Anesthesia, Motion Sickness Additional Past Anesthesia/Blood Transfusion Reaction / Comment(s): states "during procedure of checking something on my left lung,I turned blue and I was brought right back out anesthesia and proc was cancelled". 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 No animal exposures. He has stopped smoking. He has a history of heavy alcohol use but that's been many years. Denies recreational drug use Smoking Status: Former smoker Past Alcohol Use History: Heavy Additional Past Alcohol Use History / Comment(s): Started smoking age 19(1974) smoked 1 ppd and quit 1987 Past Drug Use History: None Reported - Past Family History Mother Family Medical History: Asthma Additional Family Medical History / Comment(s): at age 62 Father Family Medical History: CVA/TIA Additional Family Medical History / Comment(s): at age 90 Medications and Allergies Home Medications Medication Instructions Recorded Confirmed Type Montelukast [Singulair] 10 mg PO DAILY 03/16/14 02/22/18 History amLODIPine [Norvasc] 5 mg PO QAM 07/05/14 02/22/18 History ALPRAZolam [Xanax] 1 mg PO TID 09/20/15 02/22/18 History Fluticasone/Vilanterol [Breo 1 puff INHALATION RT-DAILY 07/16/16 02/22/18 History Ellipta 100-25 Mcg Inhaler] Desvenlafaxine [Pristiq ER] 100 mg PO DAILY 09/23/16 02/22/18 History Umeclidinium [place] [Incruse 1 puff INHALATION RT-DAILY 10/08/16 02/22/18 History Ellipta] Hydrocodone/Acetaminophen [[place] 1 tab PO QID PRN 11/06/16 02/22/18 History 10-325] Albuterol Inhaler [Ventolin Hfa 2 puff INHALATION RT-QID PRN 05/28/17 02/22/18 History Inhaler] Famotidine [Pepcid] 20 mg PO DAILY 05/28/17 02/22/18 History Lurasidone HCl [Latuda] 20 mg PO DAILY 06/27/17 02/22/18 History Gabapentin [Neurontin] 100 mg PO TID #21 cap 07/07/17 02/22/18 Rx hydrALAZINE HCL [Apresoline] 25 mg PO BID #60 tab 11/20/17 02/22/18 Rx Dutasteride [Avodart] 0.5 mg PO DAILY 02/22/18 02/22/18 History Tamsulosin HCl [Flomax] 0.4 mg PO DAILY 02/22/18 02/22/18 History Allergies Allergy/AdvReac Type Severity Reaction Status Date / Time peanut Allergy alg testing Verified 02/22/18 08:17 pollen extracts Allergy Unknown Verified 02/22/18 08:17 DUST Allergy alg testing Uncoded 02/21/18 21:59 Physical Exam Vitals: Vital Signs Temp Pulse Pulse Resp BP BP Pulse Ox 02/22/18 15:57 94 02/22/18 15:47 94 02/22/18 15:00 97.0 F L 94 20 163/84 91 L 02/22/18 11:41 88 02/22/18 11:29 88 02/22/18 07:24 80 02/22/18 07:12 80 02/22/18 07:00 98.4 F 88 18 153/81 94 L 02/22/18 04:07 84 02/22/18 03:59 80 02/22/18 03:30 76 02/22/18 02:45 97.9 F 76 18 144/81 93 L 02/22/18 02:08 97.9 F 82 18 98/57 95 02/21/18 21:56 98.7 F 100 18 129/77 93 L Intake and Output 02/22/18 02/22/18 02/22/18 06:59 14:59 22:59 Intake Total 480 Output Total 500 Balance -20 Intake: Oral 480 Output: Urine 500 Other: # Voids 1 Limitations: no limitations General appearance: alert, in no apparent distress Head exam: Present: atraumatic, normocephalic Eye exam: Present: normal appearance, PERRL ENT exam: Present: normal exam Neck exam: Present: normal inspection Respiratory exam: Present: wheezes, bilaterally with coarse inspiratory expiratory rhonchi Cardiovascular Exam: Present: regular rate GI/Abdominal exam: Present: soft. Absent: distended Rectal exam: Present: deferred Extremities exam: Present: normal inspection, full ROM Back exam: Present: tenderness, paraspinal tenderness, rash noted Neurological exam: Present: alert, oriented X3 Psychiatric exam: Present: anxious Skin exam: Present: warm, dry, rash Results - Laboratory Findings CBC and BMP: 02/21/18 23:11 02/21/18 23:11 PT/INR, D-dimer PT 11.4 sec (9.0-12.0) 02/21/18 23:11 INR 1.2 (<1.2) H 02/21/18 23:11 Abnormal lab findings: Abnormal Labs 02/21/18 02/21/18 02/21/18 23:11 23:11 23:11 RBC 4.23 L MCV 103.3 H RDW 15.9 H Lymphocytes # 0.7 L INR 1.2 H Glucose 142 H POC Glucose (mg/dL) 02/22/18 02/22/18 02/22/18 07:02 11:49 17:19 RBC MCV RDW Lymphocytes # INR Glucose POC Glucose (mg/dL) 179 H 183 H 174 H - Diagnostic Findings Chest x-ray: report reviewed, image reviewed (Chest x-ray performed on February 21 and reviewed suggestive of the right lower lobe pneumonia slightly improved on subsequent x-rays) Assessment and Plan Assessment: Right lower lobe pneumonia Acute COPD exacerbation Purulent tracheobronchitis Morbid obesity with sleep disorder breathing and sleep apnea Hypertension 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
[2018-02-22 19:31] LABS: Hemoglobin A1C 4.7 % (4.0-6.0)
[2018-02-22 21:04] LABS: Glucose,Whole Blood 229 mg/dL (75-99)
[2018-02-23] MEDS: oxyCODONE-APAP 10-325MG 1 EACH TAB PO PRN ×5 (02:02→17:05)
[2018-02-23] MEDS: IPRATROPIUM-ALBUTEROL 3 ML NEB INHALATION SCH ×4 (03:52→15:33)
[2018-02-23] MEDS: methylPREDNISolone SOD SUCCI 125 MG/2 ML VIAL IV SCH (05:15)
[2018-02-23 07:26] LABS: Glucose,Whole Blood 145 mg/dL (75-99)
[2018-02-23] MEDS: INSULIN ASPART 100 UNIT/ML 1 ML 10 ML VIAL SQ SCH ×2 (08:44→13:43)
[2018-02-23] MEDS: LURASIDONE 40 MG TAB PO SCH (08:45)
[2018-02-23] MEDS: ALPRAZolam 1 MG TAB PO SCH ×2 (08:45→17:04)
[2018-02-23] MEDS: hydrALAZINE HCL 25 MG TAB PO SCH (08:45)
[2018-02-23] MEDS: DESVENLAFAXINE SUCCINATE 50 MG TAB.ER.24H PO SCH (08:45)
[2018-02-23] MEDS: amLODIPine 5 MG TAB PO SCH (08:46)
[2018-02-23] MEDS: FAMOTIDINE 20 MG TAB PO SCH (08:46)
[2018-02-23] MEDS: GABAPENTIN 100 MG CAP PO SCH ×2 (08:46→17:02)
[2018-02-23] MEDS ORDERED: FINASTERIDE 5 MG TAB PO SCH (09:00)
[2018-02-23] MEDS ORDERED: MONTELUKAST 10 MG TAB PO SCH (09:00)
[2018-02-23] MEDS ORDERED: cefTRIAXone IN SWFI 1,000 MG/10 ML SYRINGE IVP SCH (09:00)
[2018-02-23] MEDS ORDERED: AZITHROMYCIN 500 MG TAB PO SCH (09:00)
[2018-02-23] MEDS ORDERED: TAMSULOSIN 0.4 MG CAP.ER.24H PO SCH (09:00)
--- NOTE | 2018-02-23 09:56 | P.PN ---
Subjective Progress Note Date: 02/23/18 62-year-old male who presented to the emergency room with a chief complaint of shortness of breath. Patient reports shortness of breath that is increasing in severity over the last two days. Patient also reports increased coughing. He denies chest pain or pressure at this time. Denies fever or chills. Denies nausea or vomiting. Reports back pain, which is chronic. Denies any additional areas of pain or discomfort. He states he has been using his nebulizer machine multiple times during the day recently but it was not improving his symptoms so he came to the ER for further evaluation. The patient has a history of COPD, alcohol abuse (last admission reported drinking a fifth of whiskey a week), pneumonia, anxiety, depression, bipolar disorder, and chronic neck and back pain. He sees Dr. Trammell outpatient for pain management. He has a history of sleep apnea, but reports he does not wear his CPAP because it is old and he needs to repeat a sleep study to get a new one and has not completed it. Chest x-ray: No evidence of heart failure. Possible new small infiltrate at the right posterior lung base. Laboratory data: WBC 7.1. Hemoglobin 14.7. Platelet count 191. Sodium 140. Potassium 4.1. BUN 13. Creatinine 1.08. Glucose 142. Magnesium 1.7. Troponin negative 1. BNP 82. The patient was admitted to the hospital under the care of Dr. Nuñez. Addendum entered and electronically signed by Jolanta Salter NP-C 02/22/18 13: 03: Patient c/o severe pain not controlled with [place]. During previous hospitalizations, Dr. Trammell has been consulted and has changed patient's [place] to Percocet 10 mg every 4 hours as needed during hospitalization and then patient can resume his [place] at the time of discharge. Will consult Dr. Trammell and change patient's pain medication to Percocet at this time. Patient was advised he will not receive IV narcotics at this time. Patient agreeable with plan. 02/23/2018 Patient seen and examined at the bedside. Patient has been on room air with oxygen saturations greater than 92%. He states his respiratory status is back to his baseline and he is requesting to be discharged. Patient remains on IV steroids: 60mg Q6 hours. He was evaluated by Dr. Trammell for chronic back. He remains on Percocet at this time and will be discharged home on his regular pain medication, [place], prescribed by Dr. Trammell. Repeat CXR from yesterday is negative for acute pulmonary process. Dr. Granados is following. Objective - Vital Signs Vital signs: Vital Signs Temp 98.9 F 02/23/18 06:36 Pulse 66 02/23/18 07:34 Resp 24 02/23/18 06:36 BP 147/74 02/23/18 06:36 Pulse Ox 97 02/23/18 07:21 Intake & Output 02/22/18 02/23/18 02/23/18 18:59 06:59 18:59 Intake Total 480 360 Output Total 500 1150 225 Balance -20 -790 -225 Weight 107.501 kg Intake: Oral 480 360 Output: Urine 500 1150 225 Other: # Voids 1 - Exam GENERAL: This is a 62-year-old male in no apparent distress at the time of examination. Pleasant and cooperative. HEENT: Head is atraumatic, normocephalic. Pupils are equal, round, and reactive to light. Sclerae anicteric. Conjunctivae are clear. Mucus membranes of the mouth are moist. Neck is supple. RESPIRATORY: Lung sounds improved from yesterday. No wheezing noted. No crackles noted. No use of accessory muscles. Patient maintaining oxygen saturation greater than 92%. CARDIOVASCULAR: Regular rate and rhythm. S1 and S2 noted. No systolic or diastolic murmur auscultated. No JVD noted. No S3 or S4 noted. GASTROINTESTINAL: No distention noted. Abdomen soft and round. Normal active bowel sounds auscultated x 4 quadrants. No pain or tenderness noted upon palpation. INTEGUMENTARY: No cyanosis. No jaundice. No rashes noted. No cellulitis noted. EXTREMITIES: 2+ peripheral pulses. No evidence of peripheral edema. No calf tenderness noted. NEUROLOGIC: Cranial nerves II-XII intact. PSYCHIATRIC: Awake, alert, and oriented X 3. Appropriate affect. Intact judgement and insight. - Labs CBC & Chem 7: 02/21/18 23:11 02/21/18 23:11 Labs: Abnormal Lab Results - Last 24 Hours (Table) 02/22/18 02/22/18 02/22/18 Range/Units 11:49 17:19 20:49 POC Glucose (mg/dL) 183 H 174 H 229 H (75-99) mg/dL 02/23/18 Range/Units 07:04 POC Glucose (mg/dL) 145 H (75-99) mg/dL Assessment and Plan Plan: ASSESSMENT: Acute exacerbation of chronic obstructive pulmonary disease, improving Possible right lower lobe pneumonia per xray, clinically the patient has s/s more suggestive of COPD exac rather than pneumonia, repeat CXR negative for acute process and shows resolution of infiltrate History of obstructive sleep apnea, noncompliant with CPAP Essential hypertension Chronic back and neck pain, sees Dr. Trammell outpatient per pain management Generalized anxiety disorder Depression Bipolar disorder Obesity: BMI 34.0 Daily alcohol use, patient reports drinking one fifth of whiskey weekly PLAN: Pulmonary, Dr. Granados, on consult Decrease steroids Continue antibiotics Nebulizer treatments IS 10 times an hour Home meds as appropriate Monitor labs GI prophylaxis: Pepcid 20mg PO daily DVT prophylaxis: SCDs to bilateral LE Monitor vital signs and address as appropriate Discharge planning: Patient to return home when stable Further recommendations pending patient's course Patient will be re-evaluated this afternoon Nurse practitioner note has been reviewed by physician. Signing provider agrees with the documented findings, assessment, and plan of care.
[2018-02-23 12:09] LABS: Glucose,Whole Blood 157 mg/dL (75-99)
[2018-02-23 15:08] VITALS: BP 133/82; PULSE 75; RESP 16; TEMP 98.1
[2018-02-23] MEDS ORDERED: methylPREDNISolone SOD SUCCI 40 MG/ML 1 ML VIAL IV SCH (16:00)
--- NOTE | 2018-02-28 13:51 | P.DS ---
Providers Date of admission: 02/22/18 08:56 Expected date of discharge: 02/23/18 Attending physician: Genaro Lawson Consults: 02/22/18 09:54 Consult Physician Routine Consulting Provider: Nehemiah Granados Consult Reason/Comments: copd Do you want consulting provider notified?: Yes 02/22/18 13:02 Consult Physician Routine Consulting Provider: George Trammell Consult Reason/Comments: pain management, patient request Do you want consulting provider notified?: Yes Primary care physician: Michael Nuñez Hospital Course: 62-year-old male who presented to the emergency room with a chief complaint of shortness of breath. Patient reports shortness of breath that is increasing in severity over the last two days. Patient also reports increased coughing. He denies chest pain or pressure at this time. Denies fever or chills. Denies nausea or vomiting. Reports back pain, which is chronic. Denies any additional areas of pain or discomfort. He states he has been using his nebulizer machine multiple times during the day recently but it was not improving his symptoms so he came to the ER for further evaluation. The patient has a history of COPD, alcohol abuse (last admission reported drinking a fifth of whiskey a week), pneumonia, anxiety, depression, bipolar disorder, and chronic neck and back pain. He sees Dr. Trammell outpatient for pain management. He has a history of sleep apnea, but reports he does not wear his CPAP because it is old and he needs to repeat a sleep study to get a new one and has not completed it. Chest x-ray: No evidence of heart failure. Possible new small infiltrate at the right posterior lung base. Laboratory data: WBC 7.1. Hemoglobin 14.7. Platelet count 191. Sodium 140. Potassium 4.1. BUN 13. Creatinine 1.08. Glucose 142. Magnesium 1.7. Troponin negative 1. BNP 82. The patient was admitted to the hospital under the care of Dr. Nuñez. The patient was evaluated by Dr. Granados, pulmonary, during hospitalization. He was started on IV steroids which were weaned as tolerated. Patient received Zithromax and rocephin during hospitalization. His respiratory status improved and returned back to his baseline. He was deemed stable for DC. Prescriptions were sent to the patient's preferred pharmacy for Zithromax 1 tablet which would complete his 3 day course of Zithromax, Omnicef 300 mg by mouth every 12 hours for 7 days, and a prednisone taper. He is to follow up outpatient with his primary care physician and Dr. Granados. DISCHARGE DIAGNOSIS: Acute exacerbation of chronic obstructive pulmonary disease, improving Possible right lower lobe pneumonia per xray, clinically the patient has s/s more suggestive of COPD exac rather than pneumonia, repeat CXR negative for acute process and shows resolution of infiltrate History of obstructive sleep apnea, noncompliant with CPAP Essential hypertension Chronic back and neck pain, sees Dr. Trammell outpatient per pain management Generalized anxiety disorder Depression Bipolar disorder Obesity: BMI 34.0 Daily alcohol use, patient reports drinking one fifth of whiskey weekly Nurse practitioner note has been reviewed by physician. Signing provider agrees with the documented findings, assessment, and plan of care. Plan - Discharge Summary Discharge Rx Participant: No New Discharge Prescriptions: New Azithromycin [Zithromax] 500 mg PO DAILY #1 tab Cefdinir [Omnicef] 300 mg PO Q12HR #14 capsule predniSONE See Taper PO DIRECTED #48 tab Continue Montelukast [Singulair] 10 mg PO DAILY amLODIPine [Norvasc] 5 mg PO QAM ALPRAZolam [Xanax] 1 mg PO TID Fluticasone/Vilanterol [Breo Ellipta 100-25 Mcg Inhaler] 1 puff INHALATION RT -DAILY Desvenlafaxine [Pristiq ER] 100 mg PO DAILY Umeclidinium [place] [Incruse Ellipta] 1 puff INHALATION RT-DAILY Hydrocodone/Acetaminophen [[place] 10-325] 1 tab PO QID PRN PRN Reason: Pain Albuterol Inhaler [Ventolin Hfa Inhaler] 2 puff INHALATION RT-QID PRN PRN Reason: Shortness Of Breath Famotidine [Pepcid] 20 mg PO DAILY Lurasidone HCl [Latuda] 20 mg PO DAILY Gabapentin [Neurontin] 100 mg PO TID #21 cap hydrALAZINE HCL [Apresoline] 25 mg PO BID #60 tab Dutasteride [Avodart] 0.5 mg PO DAILY Tamsulosin HCl [Flomax] 0.4 mg PO DAILY Discharge Medication List Montelukast [Singulair] 10 mg PO DAILY 03/16/14 [History] amLODIPine [Norvasc] 5 mg PO QAM 12/04/14 [History] ALPRAZolam [Xanax] 1 mg PO TID 09/20/15 [History] Fluticasone/Vilanterol [Breo Ellipta 100-25 Mcg Inhaler] 1 puff INHALATION RT- DAILY 07/16/16 [History] Desvenlafaxine [Pristiq ER] 100 mg PO DAILY 09/23/16 [History] Umeclidinium [place] [Incruse Ellipta] 1 puff INHALATION RT-DAILY 10/08/16 [ History] Hydrocodone/Acetaminophen [[place] 10-325] 1 tab PO QID PRN 11/06/16 [History] Albuterol Inhaler [Ventolin Hfa Inhaler] 2 puff INHALATION RT-QID PRN 05/28/17 [ History] Famotidine [Pepcid] 20 mg PO DAILY 05/28/17 [History] Lurasidone HCl [Latuda] 20 mg PO DAILY 06/27/17 [History] Gabapentin [Neurontin] 100 mg PO TID #21 cap 07/07/17 [Rx] hydrALAZINE HCL [Apresoline] 25 mg PO BID #60 tab 11/20/17 [Rx] Dutasteride [Avodart] 0.5 mg PO DAILY 02/22/18 [History] Tamsulosin HCl [Flomax] 0.4 mg PO DAILY 02/22/18 [History] Azithromycin [Zithromax] 500 mg PO DAILY #1 tab 02/23/18 [Rx] Cefdinir [Omnicef] 300 mg PO Q12HR #14 capsule 02/23/18 [Rx] predniSONE See Taper PO DIRECTED #48 tab 02/23/18 [Rx] Follow up Appointment(s)/Referral(s): Michael Nuñez MD [Primary Care Provider] - 03/01/18 9:00 am Nehemiah Granados MD [STAFF PHYSICIAN] - 03/02/18 (Office closed, please call for appointment. ) [facility] Visiting Nurse, [NON-STAFF] - 1-2 Days Patient Instructions/Handouts: COPD (Chronic Obstructive Pulmonary Disease) (DC ) Activity/Diet/Wound Care/Special Instructions: Cardiac diet. Limited activity until follow up with doctor. Discharge Disposition: HOME WITH HOME HEALTH SERVICES
== END 2018-02-23 17:24 | disposition home health service (06) | DRG 190 ==
LOC: EC 21:55 → 4MS4W 02-22 01:38 → OBSVTOIN 02-22 08:56 → 4MS4W 02-22 23:06
PROVIDERS: ADMIT Family Medicine; ATTEND Family Medicine
DX: J44.0 Chronic obstructive pulmonary disease with (acute) lower respiratory infection (principal); J18.9 Pneumonia, unspecified organism; J44.1 Chronic obstructive pulmonary disease with (acute) exacerbation; E66.01 Morbid (severe) obesity due to excess calories; F31.9 Bipolar disorder, unspecified; F41.0 Panic disorder [episodic paroxysmal anxiety]; F41.1 Generalized anxiety disorder; G47.33 Obstructive sleep apnea (adult) (pediatric); Z91.19 Patient's noncompliance with other medical treatment and regimen; G89.29 Other chronic pain; I11.9 Hypertensive heart disease without heart failure; I27.20 Pulmonary hypertension, unspecified; K21.9 Gastro-esophageal reflux disease without esophagitis; M47.9 Spondylosis, unspecified; N40.0 Benign prostatic hyperplasia without lower urinary tract symptoms; W06.XXXA Fall from bed, initial encounter; Z68.34 Body mass index [BMI] 34.0-34.9, adult; Z79.899 Other long term (current) drug therapy; Z82.5 Family history of asthma and other chronic lower respiratory diseases; Z87.891 Personal history of nicotine dependence; Z99.81 Dependence on supplemental oxygen; F10.10 Alcohol abuse, uncomplicated; M19.90 Unspecified osteoarthritis, unspecified site; Z86.19 Personal history of other infectious and parasitic diseases; Z90.49 Acquired absence of other specified parts of digestive tract; Z86.010 Personal history of colon polyps; Z82.49 Family history of ischemic heart disease and other diseases of the circulatory system; Z79.891 Long term (current) use of opiate analgesic; Z88.9 Allergy status to unspecified drugs, medicaments and biological substances; Z91.010 Allergy to peanuts; M54.2 Cervicalgia; M54.5 Low back pain
CPT/HCPCS: 36415; 71046; 80048; 83036; 83735; 83880; 84484; 85025; 85610; 93005; 94640; 94760; 96365; 96366; 96375; 99285

== ENCOUNTER 2018-03-02 08:01 | Emergency (ER) | payer MEDICARE ==
[2018-03-02 08:05] VITALS: BP 161/87; PULSE 70; RESP 20; TEMP 98
--- NOTE | 2018-03-02 08:30 | ED ---
General Adult HPI - General Chief complaint: Back Pain/Injury Stated complaint: Itching all Over & Back Pain Time Seen by Provider: 03/02/18 08:09 Source: patient, RN notes reviewed Mode of arrival: ambulatory Limitations: no limitations - History of Present Illness Initial comments: Patient 62-year-old male presented to the emergency room today with a chief complaint of a rash to both anterior and posterior trunk. Patient states very itchy and started 2 days ago. States no new contacts. Has been outside. Has not used anything for the itching. States is having a difficult time sleeping because of it. Patient admits to chronic back and neck pain. There is no new injury or trauma. He denies any other complaints or symptoms. Patient denies any recent fever, chills, shortness of breath, chest pain, abdominal pain, nausea or vomiting, dysuria or hematuria, constipation or diarrhea, headaches or visual changes, or any other complaints. - Related Data Home Medications Medication Instructions Recorded Confirmed Montelukast [Singulair] 10 mg PO DAILY 03/16/14 02/22/18 amLODIPine [Norvasc] 5 mg PO QAM 07/05/14 02/22/18 ALPRAZolam [Xanax] 1 mg PO TID 09/20/15 02/22/18 Fluticasone/Vilanterol [Breo 1 puff INHALATION RT-DAILY 07/16/16 02/22/18 Ellipta 100-25 Mcg Inhaler] Desvenlafaxine [Pristiq ER] 100 mg PO DAILY 09/23/16 02/22/18 Umeclidinium [place] [Incruse 1 puff INHALATION RT-DAILY 10/08/16 02/22/18 Ellipta] Hydrocodone/Acetaminophen [[place] 1 tab PO QID PRN 11/06/16 02/22/18 10-325] Albuterol Inhaler [Ventolin Hfa 2 puff INHALATION RT-QID PRN 05/28/17 02/22/18 Inhaler] Famotidine [Pepcid] 20 mg PO DAILY 05/28/17 02/22/18 Lurasidone HCl [Latuda] 20 mg PO DAILY 06/27/17 02/22/18 Dutasteride [Avodart] 0.5 mg PO DAILY 02/22/18 02/22/18 Tamsulosin HCl [Flomax] 0.4 mg PO DAILY 02/22/18 02/22/18 Previous Rx's Medication Instructions Recorded Gabapentin [Neurontin] 100 mg PO TID #21 cap 07/07/17 hydrALAZINE HCL [Apresoline] 25 mg PO BID #60 tab 11/20/17 Azithromycin [Zithromax] 500 mg PO DAILY #1 tab 02/23/18 Cefdinir [Omnicef] 300 mg PO Q12HR #14 capsule 02/23/18 predniSONE See Taper PO DIRECTED #48 tab 02/23/18 Sulfamethox-Tmp 800-160Mg [Bactrim 1 tab PO Q12HR #20 tab 03/02/18 DS 800-160 mg] diphenhydrAMINE [Benadryl] 1 - 2 tab PO Q6HR PRN #30 capsule 03/02/18 predniSONE 20 mg PO BID #10 tab 03/02/18 Allergies Allergy/AdvReac Type Severity Reaction Status Date / Time peanut Allergy alg testing Verified 03/02/18 08:05 pollen extracts Allergy Unknown Verified 03/02/18 08:05 DUST Allergy alg testing Uncoded 03/02/18 08:05 Review of Systems ROS Statement: Those systems with pertinent positive or pertinent negative responses have been documented in the HPI. ROS Other: All systems not noted in ROS Statement are negative. Past Medical History Past Medical History: Atrial Flutter, Asthma, Chest Pain / Angina, COPD, GERD/ Reflux, Hypertension, Osteoarthritis (OA), Pneumonia, Sleep Apnea/CPAP/BIPAP Additional Past Medical History / Comment(s): Chronic neck and back pain-sees Dr. Trammell, CELE without device, RLS, shingles. Shingles 2017. History of Any Multi-Drug Resistant Organisms: None Reported Past Surgical History: Adenoidectomy, Bowel Resection, Cholecystectomy Additional Past Surgical History / Comment(s): Uvulectomy, bowel resection for large polyps, colonoscopy with polypectomies, nasal surgery x 2, bronchoscopy with lung bx, pain clinic procedures., Past Anesthesia/Blood Transfusion Reactions: Previous Problems w/ Anesthesia, Motion Sickness Additional Past Anesthesia/Blood Transfusion Reaction / Comment(s): states "during procedure of checking something on my left lung,I turned blue and I was brought right back out anesthesia and proc was cancelled". clausterphobia Past Psychological History: Anxiety, Bipolar, Depression, Panic Disorder Smoking Status: Former smoker Past Alcohol Use History: Heavy Past Drug Use History: None Reported - Past Family History Mother Family Medical History: Asthma Additional Family Medical History / Comment(s): at age 62 Father Family Medical History: CVA/TIA Additional Family Medical History / Comment(s): at age 90 General Exam - General Exam Comments Initial Comments: General: The patient is awake and alert, in no distress, and does not appear acutely ill. Neck: The neck is supple, there is no tenderness or JVD. Cardiovascular: There is a regular rate and rhythm. No murmur, rub or gallop is appreciated. Respiratory: Lungs are clear to auscultation, respirations are non-labored, breath sounds are equal. No wheezes, stridor, rales, or rhonchi. Musculoskeletal: Full range of motion. Sensation intact. Pulses 2+. Strength 5/5. Neurological: A&O x 3. CN II-XII intact, There are no obvious motor or sensory deficits. Coordination appears grossly intact. Speech is normal. Skin: Papular type rash to the anterior posterior trunk with some central white spots on some of the spots. Psychiatric: Normal mood and affect. Limitations: no limitations Course Vital Signs 03/02/18 08:03 Temperature 98.0 F Pulse Rate 70 Respiratory 20 Rate Blood Pressure 161/87 O2 Sat by Pulse 98 Oximetry Medical Decision Making - Medical Decision Making Patient will be treated for both possible ALLERGIC as he states it's very itchy but covered with an antibiotic for possible staph infection. Disposition Clinical Impression: Rash Disposition: HOME SELF-CARE Condition: Good Instructions: Acute Rash (ED) Additional Instructions: Please use medication as discussed. Please follow-up with family doctor in the next 2 days of symptoms have not improved. Please return to emergency room if the symptoms increase or worsen or for any other concerns. Prescriptions: diphenhydrAMINE [Benadryl] 1 - 2 tab PO Q6HR PRN #30 capsule PRN Reason: Allergic Reaction predniSONE 20 mg PO BID #10 tab Sulfamethox-Tmp 800-160Mg [Bactrim DS 800-160 mg] 1 tab PO Q12HR #20 tab Is patient prescribed a controlled substance at d/c from ED?: No Referrals: Michael Nuñez MD [Primary Care Provider] - 1-2 days Time of Disposition: 08:29
== END 2018-03-02 08:37 | disposition home or self-care (01) ==
LOC: EC 08:01
DX: L29.9 Pruritus, unspecified (principal); M54.9 Dorsalgia, unspecified; M54.2 Cervicalgia; G89.29 Other chronic pain; J44.9 Chronic obstructive pulmonary disease, unspecified; K21.9 Gastro-esophageal reflux disease without esophagitis; I10 Essential (primary) hypertension; F41.9 Anxiety disorder, unspecified; F32.9 Major depressive disorder, single episode, unspecified; G47.33 Obstructive sleep apnea (adult) (pediatric); Z99.89 Dependence on other enabling machines and devices; Z87.891 Personal history of nicotine dependence; Z79.51 Long term (current) use of inhaled steroids; Z79.899 Other long term (current) drug therapy; Z91.010 Allergy to peanuts; Z91.048 Other nonmedicinal substance allergy status
CPT/HCPCS: 99283

== ENCOUNTER 2018-03-07 07:18 | Emergency (ER) | payer MEDICARE ==
[2018-03-07] MEDS ORDERED: IPRATROPIUM-ALBUTEROL 3 ML NEB INHALATION STA ×3 (08:09→11:08)
[2018-03-07] MEDS ORDERED: methylPREDNISolone SOD SUCCI 125 MG/2 ML VIAL IM STA (08:09)
--- NOTE | 2018-03-07 08:12 | ED ---
General Adult HPI - General Chief complaint: Nausea/Vomiting/Diarrhea Stated complaint: Sob/vomiting Time Seen by Provider: 03/07/18 07:55 Source: patient, RN notes reviewed Mode of arrival: wheelchair Limitations: no limitations - History of Present Illness Initial comments: Patient 62-year-old male presenting to the emergency room today with chief complaint of cough congestion over the last 2 days. Patient does admit that he' s had positive sputum production it's been yellow in color. Does admit that he has been using breathing treatments over the weekend but did not take one this morning. Patient does admit to increased congestion. He is worried about pneumonia. He does admit that he coughed up this morning and having some vomiting. Patient denies any other complaints or symptoms. Patient denies any recent fever, chills, chest pain, back pain, abdominal pain, headaches or visual changes, or any other complaints. - Related Data Home Medications Medication Instructions Recorded Confirmed Montelukast [Singulair] 10 mg PO DAILY 03/16/14 03/07/18 amLODIPine [Norvasc] 5 mg PO QAM 07/05/14 03/07/18 ALPRAZolam [Xanax] 1 mg PO TID 09/20/15 03/07/18 Fluticasone/Vilanterol [Breo 1 puff INHALATION RT-DAILY 07/16/16 03/07/18 Ellipta 100-25 Mcg Inhaler] Desvenlafaxine [Pristiq ER] 100 mg PO DAILY 09/23/16 03/07/18 Umeclidinium [place] [Incruse 1 puff INHALATION RT-DAILY 10/08/16 03/07/18 Ellipta] Hydrocodone/Acetaminophen [[place] 1 tab PO QID PRN 11/06/16 03/07/18 10-325] Albuterol Inhaler [Ventolin Hfa 2 puff INHALATION RT-QID PRN 05/28/17 03/07/18 Inhaler] Famotidine [Pepcid] 20 mg PO DAILY 05/28/17 03/07/18 Lurasidone HCl [Latuda] 20 mg PO DAILY 06/27/17 03/07/18 Dutasteride [Avodart] 0.5 mg PO DAILY 02/22/18 03/07/18 Tamsulosin HCl [Flomax] 0.4 mg PO DAILY 02/22/18 03/07/18 Previous Rx's Medication Instructions Recorded Gabapentin [Neurontin] 100 mg PO TID #21 cap 07/07/17 hydrALAZINE HCL [Apresoline] 25 mg PO BID #60 tab 11/20/17 predniSONE See Taper PO DIRECTED #48 tab 02/23/18 Sulfamethox-Tmp 800-160Mg [Bactrim 1 tab PO Q12HR #20 tab 03/02/18 DS 800-160 mg] diphenhydrAMINE [Benadryl] 1 - 2 tab PO Q6HR PRN #30 capsule 03/02/18 Allergies Allergy/AdvReac Type Severity Reaction Status Date / Time peanut Allergy alg testing Verified 03/07/18 07:44 pollen extracts Allergy Unknown Verified 03/07/18 07:44 DUST Allergy alg testing Uncoded 03/07/18 07:30 Review of Systems ROS Statement: Those systems with pertinent positive or pertinent negative responses have been documented in the HPI. ROS Other: All systems not noted in ROS Statement are negative. Past Medical History Past Medical History: Atrial Flutter, Asthma, Chest Pain / Angina, COPD, GERD/ Reflux, Hypertension, Osteoarthritis (OA), Pneumonia, Sleep Apnea/CPAP/BIPAP Additional Past Medical History / Comment(s): Chronic neck and back pain-sees Dr. Trammell, CELE without device, RLS, shingles. Shingles 2017. History of Any Multi-Drug Resistant Organisms: None Reported Past Surgical History: Adenoidectomy, Bowel Resection, Cholecystectomy Additional Past Surgical History / Comment(s): Uvulectomy, bowel resection for large polyps, colonoscopy with polypectomies, nasal surgery x 2, bronchoscopy with lung bx, pain clinic procedures., Past Anesthesia/Blood Transfusion Reactions: Previous Problems w/ Anesthesia, Motion Sickness Additional Past Anesthesia/Blood Transfusion Reaction / Comment(s): states "during procedure of checking something on my left lung,I turned blue and I was brought right back out anesthesia and proc was cancelled". clausterphobia Past Psychological History: Anxiety, Bipolar, Depression, Panic Disorder Smoking Status: Former smoker Past Alcohol Use History: Heavy Past Drug Use History: None Reported - Past Family History Mother Family Medical History: Asthma Additional Family Medical History / Comment(s): at age 62 Father Family Medical History: CVA/TIA Additional Family Medical History / Comment(s): at age 90 General Exam - General Exam Comments Initial Comments: General: The patient is awake and alert, in no distress, and does not appear acutely ill. Eye: Pupils are equal, round and reactive to light, extra-ocular movements are intact. No nystagmus. There is normal conjunctiva bilaterally. No signs of icterus. Ears, nose, mouth and throat: There are moist mucous membranes and no oral lesions. Neck: The neck is supple, there is no tenderness or JVD. Cardiovascular: There is a regular rate and rhythm. No murmur, rub or gallop is appreciated. Respiratory: Decreased lung sounds bilaterally with expiratory wheeze. respirations are non-labored, breath sounds are equal. No stridor, rales, or rhonchi. Musculoskeletal: Normal ROM, no tenderness. Strength 5/5. Sensation intact. Neurological: A&O x 3. CN II-XII intact, There are no obvious motor or sensory deficits. Coordination appears grossly intact. Speech is normal. Skin: Skin is warm and dry and no rashes or lesions are noted. Psychiatric: Cooperative, appropriate mood & affect, normal judgment. Limitations: no limitations Course Vital Signs 03/07/18 03/07/18 03/07/18 07:29 08:37 08:48 Temperature 98.0 F Pulse Rate 102 H 87 90 Respiratory 20 24 20 Rate Blood Pressure 157/96 O2 Sat by Pulse 96 Oximetry 03/07/18 03/07/18 03/07/18 09:14 09:22 09:45 Temperature 98.8 F Pulse Rate 83 94 72 Respiratory 20 18 20 Rate Blood Pressure 180/98 O2 Sat by Pulse 95 Oximetry 03/07/18 11:34 Temperature Pulse Rate 81 Respiratory 22 Rate Blood Pressure O2 Sat by Pulse Oximetry EKG Findings - EKG Comments: EKG Findings:: EKG performed at 1032: Shows normal sinus rhythm at 79 bpm. ID interval 134. QRS 90. QT/QTC 370/424. No acute changes. Medical Decision Making - Medical Decision Making Patient reexamined at this time does admit to some improvement after breathing treatments. He was given steroids. He still has wheezing bilaterally with expiration. Patient chest x-ray reviewed. Labs been reviewed. Patient will be admitted for COPD exacerbation. - Lab Data Result diagrams: 03/07/18 10:24 03/07/18 10:24 Lab Results 03/07/18 03/07/18 03/07/18 Range/Units 10:24 10:24 10:24 WBC 9.9 (3.8-10.6) k/uL RBC 4.26 L (4.30-5.90) m/uL Hgb 14.1 (13.0-17.5) gm/dL Hct 44.0 (39.0-53.0) % MCV 103.3 H (80.0-100.0) fL MCH 33.2 (25.0-35.0) pg MCHC 32.2 (31.0-37.0) g/dL RDW 14.8 (11.5-15.5) % Plt Count 200 (150-450) k/uL Neutrophils % 87 % Lymphocytes % 8 % Monocytes % 4 % Eosinophils % 1 % Basophils % 0 % Neutrophils # 8.6 H (1.3-7.7) k/uL Lymphocytes # 0.7 L (1.0-4.8) k/uL Monocytes # 0.4 (0-1.0) k/uL Eosinophils # 0.1 (0-0.7) k/uL Basophils # 0.0 (0-0.2) k/uL Macrocytosis Slight PT (9.0-12.0) sec INR (<1.2) APTT (22.0-30.0) sec Sodium 140 (137-145) mmol/L Potassium 4.1 (3.5-5.1) mmol/L Chloride 106 (98-107) mmol/L Carbon Dioxide 27 (22-30) mmol/L Anion Gap 7 mmol/L BUN 25 H (9-20) mg/dL Creatinine 0.83 (0.66-1.25) mg/dL Est GFR (CKD-EPI)AfAm >90 (>60 ml/min/1.73 sqM) Est GFR (CKD-EPI)NonAf >90 (>60 ml/min/1.73 sqM) Glucose 121 H (74-99) mg/dL Calcium 9.1 (8.4-10.2) mg/dL Total Bilirubin 0.5 (0.2-1.3) mg/dL AST 56 (17-59) U/L ALT 84 H (21-72) U/L Alkaline Phosphatase 72 (38-126) U/L Total Creatine Kinase 31 L (55-170) U/L CK-MB (CK-2) 1.2 (0.0-2.4) ng/mL CK-MB (CK-2) Rel Index 3.9 Troponin I 0.016 (0.000-0.034) ng/mL Total Protein 6.3 (6.3-8.2) g/dL Albumin 4.0 (3.5-5.0) g/dL 03/07/18 Range/Units 10:24 WBC (3.8-10.6) k/uL RBC (4.30-5.90) m/uL Hgb (13.0-17.5) gm/dL Hct (39.0-53.0) % MCV (80.0-100.0) fL MCH (25.0-35.0) pg MCHC (31.0-37.0) g/dL RDW (11.5-15.5) % Plt Count (150-450) k/uL Neutrophils % % Lymphocytes % % Monocytes % % Eosinophils % % Basophils % % Neutrophils # (1.3-7.7) k/uL Lymphocytes # (1.0-4.8) k/uL Monocytes # (0-1.0) k/uL Eosinophils # (0-0.7) k/uL Basophils # (0-0.2) k/uL Macrocytosis PT 9.9 (9.0-12.0) sec INR 1.0 (<1.2) APTT 21.5 L (22.0-30.0) sec Sodium (137-145) mmol/L Potassium (3.5-5.1) mmol/L Chloride (98-107) mmol/L Carbon Dioxide (22-30) mmol/L Anion Gap mmol/L BUN (9-20) mg/dL Creatinine (0.66-1.25) mg/dL Est GFR (CKD-EPI)AfAm (>60 ml/min/1.73 sqM) Est GFR (CKD-EPI)NonAf (>60 ml/min/1.73 sqM) Glucose (74-99) mg/dL Calcium (8.4-10.2) mg/dL Total Bilirubin (0.2-1.3) mg/dL AST (17-59) U/L ALT (21-72) U/L Alkaline Phosphatase (38-126) U/L Total Creatine Kinase (55-170) U/L CK-MB (CK-2) (0.0-2.4) ng/mL CK-MB (CK-2) Rel Index Troponin I (0.000-0.034) ng/mL Total Protein (6.3-8.2) g/dL Albumin (3.5-5.0) g/dL Disposition Clinical Impression: COPD exacerbation Disposition: ADMITTED IP TO THIS HOSP Condition: Good Is patient prescribed a controlled substance at d/c from ED?: No Referrals: Michael Nuñez MD [Primary Care Provider] - 1-2 days Time of Disposition: 11:41
--- NOTE | 2018-03-07 08:31 | XR ---
EXAMINATION TYPE: XR chest 2V DATE OF EXAM: 03/07/2018 COMPARISON: 02/22/2018 HISTORY: Cough, congestion and recent pneumonia TECHNIQUE: Frontal and lateral views of the chest are obtained. FINDINGS: There is no focal air space opacity, pleural effusion, or pneumothorax seen. Minimal line ar left basilar subsegmental atelectasis is present. The cardiac silhouette size is within normal kimbrough its. The osseous structures are intact. IMPRESSION: Minimal linear left basilar atelectasis, otherwise no acute cardiopulmonary process.
[2018-03-07 09:45] VITALS: TEMP 98.8
[2018-03-07] MEDS ORDERED: HYDROcodone/APAP 10-325MG 1 EACH TAB PO ONE (10:09)
[2018-03-07 10:38] LABS: Basophils % (A) 0 %; Eosinophils # (A) 0.1 k/uL (0-0.7); Eosinophils % (A) 1 %; HGB 14.1 gm/dL (13.0-17.5); Lymphocytes # (A) 0.7 k/uL (1.0-4.8); Lymphocytes % (A) 8 %; MCH 33.2 pg (25.0-35.0); MCHC 32.2 g/dL (31.0-37.0); MCV 103.3 fL (80.0-100.0); Macrocytosis Slight; Mean Platelet Volume 6.7; Monocytes # (A) 0.4 k/uL (0-1.0); Monocytes % (A) 4 %; Neutrophils # (A) 8.6 k/uL (1.3-7.7); Neutrophils % (A) 87 %; Platelet Count 200 k/uL (150-450); RBC 4.26 m/uL (4.30-5.90); RDW 14.8 % (11.5-15.5); WBC 9.9 k/uL (3.8-10.6)
[2018-03-07 10:43] LABS: ALT 84 U/L (21-72); AST 56 U/L (17-59); Alkaline Phosphatase 72 U/L (38-126); Anion Gap 7 mmol/L; Blood Urea Nitrogen 25 mg/dL (9-20); Calcium 9.1 mg/dL (8.4-10.2); Carbon Dioxide 27 mmol/L (22-30); Chloride 106 mmol/L (98-107); Glucose 121 mg/dL (74-99); Potassium 4.1 mmol/L (3.5-5.1); Sodium 140 mmol/L (137-145); Total Bilirubin 0.5 mg/dL (0.2-1.3); Total Protein 6.3 g/dL (6.3-8.2)
[2018-03-07 10:48] LABS: Prothrombin Time 9.9 sec (9.0-12.0)
[2018-03-07 10:59] LABS: Partial Thromboplastin Time 21.5 sec (22.0-30.0)
[2018-03-07 11:08] LABS: Creatine Kinase MB 1.2 ng/mL (0.0-2.4); Troponin I 0.016 ng/mL (0.000-0.034)
[2018-03-07] MEDS ORDERED: SODIUM CHLORIDE 0.9% 1,000 ML IV ONE (11:41)
[2018-03-07] MEDS ORDERED: IPRATROPIUM-ALBUTEROL 3 ML NEB INHALATION PRN (11:41)
[2018-03-07] MEDS ORDERED: ALBUTEROL INHALER 60 PUFF/8 GM INHALER INHALATION PRN (11:42)
[2018-03-07] MEDS ORDERED: HYDROcodone/APAP 10-325MG 1 EACH TAB PO PRN (11:42)
--- NOTE | 2018-03-07 11:52 | ED ---
Medical Decision Making - Medical Decision Making Case was discussed and seen by attending physician Dr. Aguilera who did discuss the case with admitting physician Dr. Kerr. Dr. Kerr states that he is comfortable with the patient being discharged home today. States that he can follow-up in the office today or tomorrow with him. We will start the patient on steroids. Advised return if symptoms increase or worsen. - Lab Data Result diagrams: 03/07/18 10:24 03/07/18 10:24 Lab Results 03/07/18 03/07/18 03/07/18 Range/Units 10:24 10:24 10:24 WBC 9.9 (3.8-10.6) k/uL RBC 4.26 L (4.30-5.90) m/uL Hgb 14.1 (13.0-17.5) gm/dL Hct 44.0 (39.0-53.0) % MCV 103.3 H (80.0-100.0) fL MCH 33.2 (25.0-35.0) pg MCHC 32.2 (31.0-37.0) g/dL RDW 14.8 (11.5-15.5) % Plt Count 200 (150-450) k/uL Neutrophils % 87 % Lymphocytes % 8 % Monocytes % 4 % Eosinophils % 1 % Basophils % 0 % Neutrophils # 8.6 H (1.3-7.7) k/uL Lymphocytes # 0.7 L (1.0-4.8) k/uL Monocytes # 0.4 (0-1.0) k/uL Eosinophils # 0.1 (0-0.7) k/uL Basophils # 0.0 (0-0.2) k/uL Macrocytosis Slight PT (9.0-12.0) sec INR (<1.2) APTT (22.0-30.0) sec Sodium 140 (137-145) mmol/L Potassium 4.1 (3.5-5.1) mmol/L Chloride 106 (98-107) mmol/L Carbon Dioxide 27 (22-30) mmol/L Anion Gap 7 mmol/L BUN 25 H (9-20) mg/dL Creatinine 0.83 (0.66-1.25) mg/dL Est GFR (CKD-EPI)AfAm >90 (>60 ml/min/1.73 sqM) Est GFR (CKD-EPI)NonAf >90 (>60 ml/min/1.73 sqM) Glucose 121 H (74-99) mg/dL Calcium 9.1 (8.4-10.2) mg/dL Total Bilirubin 0.5 (0.2-1.3) mg/dL AST 56 (17-59) U/L ALT 84 H (21-72) U/L Alkaline Phosphatase 72 (38-126) U/L Total Creatine Kinase 31 L (55-170) U/L CK-MB (CK-2) 1.2 (0.0-2.4) ng/mL CK-MB (CK-2) Rel Index 3.9 Troponin I 0.016 (0.000-0.034) ng/mL Total Protein 6.3 (6.3-8.2) g/dL Albumin 4.0 (3.5-5.0) g/dL 03/07/18 Range/Units 10:24 WBC (3.8-10.6) k/uL RBC (4.30-5.90) m/uL Hgb (13.0-17.5) gm/dL Hct (39.0-53.0) % MCV (80.0-100.0) fL MCH (25.0-35.0) pg MCHC (31.0-37.0) g/dL RDW (11.5-15.5) % Plt Count (150-450) k/uL Neutrophils % % Lymphocytes % % Monocytes % % Eosinophils % % Basophils % % Neutrophils # (1.3-7.7) k/uL Lymphocytes # (1.0-4.8) k/uL Monocytes # (0-1.0) k/uL Eosinophils # (0-0.7) k/uL Basophils # (0-0.2) k/uL Macrocytosis PT 9.9 (9.0-12.0) sec INR 1.0 (<1.2) APTT 21.5 L (22.0-30.0) sec Sodium (137-145) mmol/L Potassium (3.5-5.1) mmol/L Chloride (98-107) mmol/L Carbon Dioxide (22-30) mmol/L Anion Gap mmol/L BUN (9-20) mg/dL Creatinine (0.66-1.25) mg/dL Est GFR (CKD-EPI)AfAm (>60 ml/min/1.73 sqM) Est GFR (CKD-EPI)NonAf (>60 ml/min/1.73 sqM) Glucose (74-99) mg/dL Calcium (8.4-10.2) mg/dL Total Bilirubin (0.2-1.3) mg/dL AST (17-59) U/L ALT (21-72) U/L Alkaline Phosphatase (38-126) U/L Total Creatine Kinase (55-170) U/L CK-MB (CK-2) (0.0-2.4) ng/mL CK-MB (CK-2) Rel Index Troponin I (0.000-0.034) ng/mL Total Protein (6.3-8.2) g/dL Albumin (3.5-5.0) g/dL Disposition Clinical Impression: COPD exacerbation Disposition: HOME SELF-CARE Condition: Good Instructions: COPD (Chronic Obstructive Pulmonary Disease) (ED) Additional Instructions: Please use medication as discussed. Please follow-up with family doctor in the office today or tomorrow. Please return to emergency room if the symptoms increase or worsen or for any other concerns. Prescriptions: predniSONE 50 mg PO DAILY #5 tab Is patient prescribed a controlled substance at d/c from ED?: No Referrals: Michael Nuñez MD [Primary Care Provider] - 1-2 days Time of Disposition: 11:51
[2018-03-07] MEDS ORDERED: methylPREDNISolone SOD SUCCI 125 MG/2 ML VIAL IV SCH (12:00)
[2018-03-07] MEDS ORDERED: hydrALAZINE HCL 20 MG/ML 1 ML VIAL IVP STA (12:08)
[2018-03-07 12:19] VITALS: RESP 18
[2018-03-07] MEDS ORDERED: hydrALAZINE HCL 25 MG TAB PO STA (12:55)
[2018-03-07] MEDS ORDERED: amLODIPine 5 MG TAB PO STA (12:56)
[2018-03-07 13:02] VITALS: BP 210/97; PULSE 101
[2018-03-07] MEDS ORDERED: ALPRAZolam 1 MG TAB PO SCH (16:00)
[2018-03-07] MEDS ORDERED: GABAPENTIN 100 MG CAP PO SCH (16:00)
[2018-03-07] MEDS ORDERED: hydrALAZINE HCL 25 MG TAB PO SCH (21:00)
[2018-03-08] MEDS ORDERED: amLODIPine 5 MG TAB PO SCH (09:00)
== END 2018-03-07 13:29 | disposition home or self-care (01) ==
LOC: EC 07:18
DX: J44.1 Chronic obstructive pulmonary disease with (acute) exacerbation (principal); I48.91 Unspecified atrial fibrillation; K21.9 Gastro-esophageal reflux disease without esophagitis; I10 Essential (primary) hypertension; F41.9 Anxiety disorder, unspecified; F32.9 Major depressive disorder, single episode, unspecified; G47.33 Obstructive sleep apnea (adult) (pediatric); Z99.89 Dependence on other enabling machines and devices; Z87.891 Personal history of nicotine dependence; Z79.51 Long term (current) use of inhaled steroids; Z79.899 Other long term (current) drug therapy; Z91.010 Allergy to peanuts; Z91.048 Other nonmedicinal substance allergy status
CPT/HCPCS: 36415; 94640 ×2; 93005; 80053; 82550; 82553; 84484; 85025; 85610; 85730; 71046; 99284; 96374; 96372; J0360; J2930

== ENCOUNTER 2018-03-08 04:24 | Emergency (ER) | payer MEDICARE ==
[2018-03-08] MEDS ORDERED: IPRATROPIUM-ALBUTEROL 3 ML NEB INHALATION STA (05:10)
[2018-03-08] MEDS ORDERED: ALBUTEROL NEBULIZED 2.5 MG/3 ML INHALATION STA ×2 (05:10→07:18)
[2018-03-08] MEDS ORDERED: HYDROcodone/APAP 10-325MG 1 EACH TAB PO ONE (05:32)
[2018-03-08 07:47] LABS: ABG Base Excess 2.9 mmol/L; ABG HCO3 27 mmol/L (21-25); ABG Oxygen Saturation 97.2 % (94-97); ABG PCO2 41 mmHg (35-45); ABG PH 7.43 (7.35-7.45); ABG PO2 80 mmHg (83-108); ABG TCO2 29 mmol/L (19-24)
--- NOTE | 2018-03-08 08:33 | ED ---
SOB HPI - General Chief Complaint: Shortness of Breath Stated Complaint: GREGG,neck/back pain Time Seen by Provider: 03/08/18 05:24 Source: patient Mode of arrival: ambulatory Limitations: no limitations - History of Present Illness Initial Comments: This patient is 62-year-old man with history of COPD. He presents with complaint that he is having an increase in his wheezing, coughing, and that the cough is leading to a flareup of his chronic back and chest wall pain. She denies change in his sputum. No fevers or chills. MD Complaint: shortness of breath, cough Onset/Timin -: days(s) Radiation: back Severity: moderate Quality: aching Consistency: constant Improves With: bronchodilators Worsens With: coughing Known History Of: COPD Associated Symptoms: chest pain, rash (Back pain) - Related Data Home Medications Medication Instructions Recorded Confirmed Montelukast [Singulair] 10 mg PO DAILY 03/16/14 03/08/18 amLODIPine [Norvasc] 5 mg PO QAM 07/05/14 03/08/18 ALPRAZolam [Xanax] 1 mg PO TID 09/20/15 03/08/18 Fluticasone/Vilanterol [Breo 1 puff INHALATION RT-DAILY 07/16/16 03/08/18 Ellipta 100-25 Mcg Inhaler] Desvenlafaxine [Pristiq ER] 100 mg PO DAILY 09/23/16 03/08/18 Umeclidinium [place] [Incruse 1 puff INHALATION RT-DAILY 10/08/16 03/08/18 Ellipta] Hydrocodone/Acetaminophen [[place] 1 tab PO QID PRN 11/06/16 03/08/18 10-325] Albuterol Inhaler [Ventolin Hfa 2 puff INHALATION RT-QID PRN 05/28/17 03/08/18 Inhaler] Famotidine [Pepcid] 20 mg PO DAILY 05/28/17 03/08/18 Lurasidone HCl [Latuda] 20 mg PO DAILY 06/27/17 03/08/18 Dutasteride [Avodart] 0.5 mg PO DAILY 02/22/18 03/08/18 Tamsulosin HCl [Flomax] 0.4 mg PO DAILY 02/22/18 03/08/18 Previous Rx's Medication Instructions Recorded Gabapentin [Neurontin] 100 mg PO TID #21 cap 07/07/17 hydrALAZINE HCL [Apresoline] 25 mg PO BID #60 tab 11/20/17 predniSONE See Taper PO DIRECTED #48 tab 02/23/18 Sulfamethox-Tmp 800-160Mg [Bactrim 1 tab PO Q12HR #20 tab 03/02/18 DS 800-160 mg] diphenhydrAMINE [Benadryl] 1 - 2 tab PO Q6HR PRN #30 capsule 03/02/18 predniSONE 50 mg PO DAILY #5 tab 03/07/18 Allergies Allergy/AdvReac Type Severity Reaction Status Date / Time peanut Allergy alg testing Verified 03/08/18 07:33 pollen extracts Allergy Unknown Verified 03/08/18 07:33 DUST Allergy alg testing Uncoded 03/08/18 04:29 Review of Systems ROS Statement: Those systems with pertinent positive or pertinent negative responses have been documented in the HPI. ROS Other: All systems not noted in ROS Statement are negative. Constitutional: Denies: fever, chills Respiratory: Reports: cough, dyspnea, wheezes. Denies: hemoptysis Cardiovascular: Reports: as per HPI, chest pain. Denies: palpitations, dyspnea on exertion, orthopnea, syncope Gastrointestinal: Denies: abdominal pain, vomiting, diarrhea Genitourinary: Denies: dysuria Musculoskeletal: Reports: as per HPI, back pain Skin: Denies: rash Neurological: Denies: headache, weakness, numbness Past Medical History Past Medical History: Atrial Flutter, Asthma, Chest Pain / Angina, COPD, GERD/ Reflux, Hypertension, Osteoarthritis (OA), Pneumonia, Sleep Apnea/CPAP/BIPAP Additional Past Medical History / Comment(s): Chronic neck and back pain-sees Dr. Trammell, CELE without device, RLS, shingles. Shingles 2017. History of Any Multi-Drug Resistant Organisms: None Reported Past Surgical History: Adenoidectomy, Bowel Resection, Cholecystectomy Additional Past Surgical History / Comment(s): Uvulectomy, bowel resection for large polyps, colonoscopy with polypectomies, nasal surgery x 2, bronchoscopy with lung bx, pain clinic procedures., Past Anesthesia/Blood Transfusion Reactions: Previous Problems w/ Anesthesia, Motion Sickness Additional Past Anesthesia/Blood Transfusion Reaction / Comment(s): states "during procedure of checking something on my left lung,I turned blue and I was brought right back out anesthesia and proc was cancelled". clausterphobia Past Psychological History: Anxiety, Bipolar, Depression, Panic Disorder Smoking Status: Former smoker Past Alcohol Use History: Heavy Past Drug Use History: None Reported - Past Family History Mother Family Medical History: Asthma Additional Family Medical History / Comment(s): at age 62 Father Family Medical History: CVA/TIA Additional Family Medical History / Comment(s): at age 90 General Exam Limitations: no limitations General appearance: alert, in no apparent distress Head exam: Present: atraumatic, normocephalic Eye exam: Present: normal appearance. Absent: scleral icterus, conjunctival injection ENT exam: Present: normal oropharynx Neck exam: Present: normal inspection Respiratory exam: Present: normal lung sounds bilaterally, wheezes, chest wall tenderness. Absent: respiratory distress, rales, rhonchi, stridor, accessory muscle use Cardiovascular Exam: Present: regular rate, normal rhythm, normal heart sounds. Absent: systolic murmur, diastolic murmur, rubs, gallop GI/Abdominal exam: Present: soft. Absent: distended, tenderness, guarding, rebound, mass Extremities exam: Present: normal inspection, normal capillary refill. Absent: pedal edema, calf tenderness Back exam: Present: normal inspection. Absent: CVA tenderness (R), CVA tenderness (L) Neurological exam: Present: alert Skin exam: Present: warm, dry, intact, normal color. Absent: rash Course Vital Signs 03/08/18 03/08/18 03/08/18 04:27 05:36 05:53 Temperature 98.2 F Pulse Rate 107 H 97 96 Respiratory 32 H Rate Blood Pressure 184/91 O2 Sat by Pulse 95 Oximetry 03/08/18 03/08/18 03/08/18 07:06 07:42 07:54 Temperature Pulse Rate 93 91 89 Respiratory 20 Rate Blood Pressure 167/90 O2 Sat by Pulse 95 Oximetry 03/08/18 09:09 Temperature 98.0 F Pulse Rate 87 Respiratory 16 Rate Blood Pressure 165/98 O2 Sat by Pulse 97 Oximetry Medical Decision Making - Medical Decision Making Patient's 62-year-old man with COPD and exacerbation of chronic back and chest wall pain. He has had improvement with treatment here and stable for discharge. - Lab Data Lab Results 03/08/18 Range/Units 07:35 Sample Site LRAD ABG pH 7.43 (7.35-7.45) ABG pCO2 41 (35-45) mmHg ABG pO2 80 L (83-108) mmHg ABG HCO3 27 H (21-25) mmol/L ABG Total CO2 29 H (19-24) mmol/L ABG O2 Saturation 97.2 H (94-97) % ABG Base Excess 2.9 mmol/L Jesse Test Yes FiO2 32 % Disposition Clinical Impression: COPD exacerbation Disposition: HOME SELF-CARE Condition: Fair Instructions: COPD (Chronic Obstructive Pulmonary Disease) (ED) Additional Instructions: As we discussed, go directly to Dr. Kerr's office and he will see there today. Is patient prescribed a controlled substance at d/c from ED?: No Referrals: Michael Nuñez MD [Primary Care Provider] - 1-2 days
[2018-03-08 09:10] VITALS: BP 165/98; PULSE 87; RESP 16; TEMP 98
== END 2018-03-08 09:16 | disposition home or self-care (01) ==
LOC: EC 04:24
DX: J44.1 Chronic obstructive pulmonary disease with (acute) exacerbation (principal); R07.89 Other chest pain; M54.9 Dorsalgia, unspecified; R21 Rash and other nonspecific skin eruption; G89.29 Other chronic pain; I48.92 Unspecified atrial flutter; K21.9 Gastro-esophageal reflux disease without esophagitis; I10 Essential (primary) hypertension; F31.9 Bipolar disorder, unspecified; F41.0 Panic disorder [episodic paroxysmal anxiety]; Z87.891 Personal history of nicotine dependence; Z79.51 Long term (current) use of inhaled steroids; Z79.899 Other long term (current) drug therapy; Z91.010 Allergy to peanuts; Z91.048 Other nonmedicinal substance allergy status; Z91.09 Other allergy status, other than to drugs and biological substances
CPT/HCPCS: 36600; 82805; 94640; 99285

== ENCOUNTER 2018-04-24 09:49 | Observation (INO) | payer MEDICARE, OTHER ==
[2018-04-24] MEDS ORDERED: ALPRAZolam 1 MG TAB PO STA (10:45)
--- NOTE | 2018-04-24 11:05 | ED ---
Anxiety HPI - General Chief Complaint: Anxiety Stated Complaint: anxiety Time Seen by Provider: 04/24/18 10:14 Source: patient Mode of arrival: ambulatory - History of Present Illness Initial Comments: 62-year-old male past medical history of COPD, anxiety, panic disorder, HTN resents today for chief complaint of panic attack. Patient states that he has had a constant state of anxiety since yesterday he states that he feels alone and scared. He states that Dr. Kerr wants him to see a therapist, and this is making him nervous. Patient states that he feels short of breath, he denies any chest pain, dyspnea on exertion, cough, hemoptysis, syncope, dizziness, confusion, paresthesia, numbness or tingling of the upper or lower extremities, fever, chills, back pain, abdominal pain, nausea or vomiting,dysuria or hematuria, constipation or diarrhea, headaches or visual changes, or any other complaints. Pt states that he did not take any of his home medications today and he is out of his Xanax for which he usually uses up to 3 times a day for his anxiety attacks. On arrival patient's vital signs revealed heart rate 126, respirations 26. He appears nervous and anxious. No cyanosis, retractions. - Related Data Home Medications: Home Medications Medication Instructions Recorded Confirmed Montelukast [Singulair] 10 mg PO DAILY 03/16/14 04/24/18 amLODIPine [Norvasc] 5 mg PO QAM 07/05/14 04/24/18 ALPRAZolam [Xanax] 1 mg PO TID PRN 09/20/15 04/24/18 Fluticasone/Vilanterol [Breo 1 puff INHALATION RT-DAILY 07/16/16 04/24/18 Ellipta 100-25 Mcg Inhaler] Desvenlafaxine [Pristiq ER] 100 mg PO DAILY 09/23/16 04/24/18 Umeclidinium [place] [Incruse 1 puff INHALATION RT-DAILY 10/08/16 04/24/18 Ellipta] Hydrocodone/Acetaminophen [[place] 1 tab PO QID PRN 11/06/16 04/24/18 10-325] Albuterol Inhaler [Ventolin Hfa 2 puff INHALATION RT-QID PRN 05/28/17 04/24/18 Inhaler] Famotidine [Pepcid] 20 mg PO DAILY 05/28/17 04/24/18 Lurasidone [Latuda] 20 mg PO DAILY 06/27/17 04/24/18 Tamsulosin HCl [Flomax] 0.4 mg PO DAILY 02/22/18 04/24/18 Doxycycline Monohydrate [Monodox] 100 mg PO Q12HR 04/24/18 04/24/18 Finasteride [Proscar] 5 mg PO DAILY 04/24/18 04/24/18 Metoprolol Tartrate 25 mg PO DAILY 04/24/18 04/24/18 hydrOXYzine HCL 25 mg PO Q8H 04/24/18 04/24/18 predniSONE 5 mg PO DAILY 04/24/18 04/24/18 predniSONE See Protocol PO DIRECTED 04/24/18 04/24/18 Previous Rx's Medication Instructions Recorded hydrALAZINE HCL [Apresoline] 25 mg PO BID #60 tab 11/20/17 Allergies/Adverse Reactions: Allergies Allergy/AdvReac Type Severity Reaction Status Date / Time peanut Allergy alg testing Verified 04/24/18 14:47 pollen extracts Allergy Unknown Verified 04/24/18 14:47 DUST Allergy alg testing Uncoded 04/24/18 10:02 Review of Systems ROS Statement: Those systems with pertinent positive or pertinent negative responses have been documented in the HPI. ROS Other: All systems not noted in ROS Statement are negative. Constitutional: Denies: fever, chills, night sweats Eyes: Denies: vision change ENT: Denies: ear pain, throat pain, hearing loss Respiratory: Reports: dyspnea. Denies: cough, wheezes, hemoptysis, stridor Cardiovascular: Denies: chest pain, palpitations, dyspnea on exertion Endocrine: Denies: fatigue Gastrointestinal: Denies: abdominal pain, nausea, vomiting, diarrhea, constipation Genitourinary: Denies: urgency, dysuria, frequency, hematuria Musculoskeletal: Denies: back pain Skin: Denies: rash, lesions Neurological: Denies: headache, weakness, numbness, paresthesias, confusion, abnormal gait Psychiatric: Reports: anxiety. Denies: depression, suicidal thoughts Past Medical History Past Medical History: Atrial Flutter, Asthma, Chest Pain / Angina, COPD, GERD/ Reflux, Hypertension, Osteoarthritis (OA), Pneumonia, Sleep Apnea/CPAP/BIPAP Additional Past Medical History / Comment(s): Chronic neck and back pain-sees Dr. Trammell, CELE without device, RLS, shingles. Shingles 2017. History of Any Multi-Drug Resistant Organisms: None Reported Past Surgical History: Adenoidectomy, Bowel Resection, Cholecystectomy Additional Past Surgical History / Comment(s): Uvulectomy, bowel resection for large polyps, colonoscopy with polypectomies, nasal surgery x 2, bronchoscopy with lung bx, pain clinic procedures., Past Anesthesia/Blood Transfusion Reactions: Previous Problems w/ Anesthesia, Motion Sickness Additional Past Anesthesia/Blood Transfusion Reaction / Comment(s): states "during procedure of checking something on my left lung,I turned blue and I was brought right back out anesthesia and proc was cancelled". clausterphobia Past Psychological History: Anxiety, Bipolar, Depression, Panic Disorder Smoking Status: Former smoker Past Alcohol Use History: Heavy Past Drug Use History: None Reported - Past Family History Mother Family Medical History: Asthma Additional Family Medical History / Comment(s): at age 62 Father Family Medical History: CVA/TIA Additional Family Medical History / Comment(s): at age 90 General Exam - General Exam Comments Initial Comments: General: The patient is awake and alert, appearing anxious Eye: Pupils are equal, round and reactive to light, extra-ocular movements are intact. No nystagmus. There is normal conjunctiva bilaterally. No signs of icterus. Ears, nose, mouth and throat: There are moist mucous membranes and no oral lesions. Neck: The neck is supple, there is no tenderness or JVD. Cardiovascular: There is a regular rate and rhythm. No murmur, rub or gallop is appreciated. Respiratory: Breath sound auscible in all lung pedroza. Respirations are mildly labored, breath sounds are equal. No stridor, rales, or rhonchi. Inspiratory and expiratory wheezes. No cyanosis, retractions. Gastrointestinal: Soft, non-distended, non-tender abdomen without masses or organomegaly noted. There is no rebound or guarding present. Musculoskeletal: Normal ROM, no tenderness. Strength 5/5. Sensation intact. Radial pulses equal bilaterally 2+. Neurological: A&O x 3. CN II-XII intact, There are no obvious motor or sensory deficits. Coordination appears grossly intact. Speech is normal. Skin: Skin is warm and dry and no rashes or lesions are noted. Psychiatric: Cooperative, appropriate mood & affect, normal judgment. Limitations: no limitations Course Vital Signs 04/24/18 04/24/18 04/24/18 10:00 11:24 11:33 Temperature 98.4 F Pulse Rate 106 H 86 92 Respiratory 26 H Rate Blood Pressure 158/91 O2 Sat by Pulse 95 Oximetry 04/24/18 04/24/18 04/24/18 11:57 12:07 13:24 Temperature Pulse Rate 103 H 100 83 Respiratory 18 Rate Blood Pressure 164/90 O2 Sat by Pulse 93 L Oximetry 04/24/18 04/24/18 14:51 15:22 Temperature 99.4 F 98.6 F Pulse Rate 82 84 Respiratory 18 18 Rate Blood Pressure 207/104 185/93 O2 Sat by Pulse 94 L 94 L Oximetry Medical Decision Making - Medical Decision Making 62 with cc of anxiety and sob concerning for COPD exacerbation vs anxiety. Laboratory values as above. D-dimer elevated. CTA (-). EKG (-) for ACS, arrythmias, heart blocks. Pt given 2 DuoNeb treatments and 30mg of prednisone PO for wheezing, and 1mg xanax for anxiety. After xanxax pt no longer appeared anxious/nervous stated his anxiety was better. However still appeared to have labored breathing and diffuse inspiratory and expiratory wheeze on examination. At this time given pt clinical appearance of respiratory distress despite 2 DuoNeb treatments I feel pt should be admitted to observation for COPD exacerbation. Pt started on Duoneb q4h PRN, prednisone 40mg daily next dose tmrw , azithromycin 500mg daily. Pt given home dose of amlodipine 5mg. repeat BP remained elevated. In addition to amlodipine pt takes hydralazine HCL, pt given 10mg dose. Pt complained of chronic low back pain requested norco, I gave 5mg. Pt transferred to floor in stable condition. - Lab Data Result diagrams: 04/24/18 10:59 04/24/18 10:59 Lab Results 04/24/18 04/24/18 04/24/18 Range/Units 10:59 10:59 10:59 WBC 7.9 (3.8-10.6) k/uL RBC 4.82 (4.30-5.90) m/uL Hgb 17.2 (13.0-17.5) gm/dL Hct 50.3 (39.0-53.0) % MCV 104.4 H (80.0-100.0) fL MCH 35.7 H (25.0-35.0) pg MCHC 34.2 (31.0-37.0) g/dL RDW 14.2 (11.5-15.5) % Plt Count 189 (150-450) k/uL Neutrophils % 76 % Lymphocytes % 14 % Monocytes % 7 % Eosinophils % 1 % Basophils % 0 % Neutrophils # 6.0 (1.3-7.7) k/uL Lymphocytes # 1.1 (1.0-4.8) k/uL Monocytes # 0.6 (0-1.0) k/uL Eosinophils # 0.1 (0-0.7) k/uL Basophils # 0.0 (0-0.2) k/uL Macrocytosis Slight PT (9.0-12.0) sec INR (<1.2) APTT (22.0-30.0) sec D-Dimer (<0.60) mg/L FEU Sodium 142 (137-145) mmol/L Potassium 4.3 (3.5-5.1) mmol/L Chloride 102 (98-107) mmol/L Carbon Dioxide 26 (22-30) mmol/L Anion Gap 14 mmol/L BUN 20 (9-20) mg/dL Creatinine 0.96 (0.66-1.25) mg/dL Est GFR (CKD-EPI)AfAm >90 (>60 ml/min/1.73 sqM) Est GFR (CKD-EPI)NonAf 86 (>60 ml/min/1.73 sqM) Glucose 102 H (74-99) mg/dL Calcium 9.8 (8.4-10.2) mg/dL Magnesium 1.8 (1.6-2.3) mg/dL Total Bilirubin 1.2 (0.2-1.3) mg/dL AST 54 (17-59) U/L ALT 83 H (21-72) U/L Alkaline Phosphatase 70 (38-126) U/L Total Creatine Kinase 72 (55-170) U/L CK-MB (CK-2) 2.7 H (0.0-2.4) ng/mL CK-MB (CK-2) Rel Index 3.8 Troponin I 0.022 (0.000-0.034) ng/mL NT-Pro-B Natriuret Pep pg/mL Total Protein 6.8 (6.3-8.2) g/dL Albumin 4.5 (3.5-5.0) g/dL 04/24/18 04/24/18 Range/Units 10:59 10:59 WBC (3.8-10.6) k/uL RBC (4.30-5.90) m/uL Hgb (13.0-17.5) gm/dL Hct (39.0-53.0) % MCV (80.0-100.0) fL MCH (25.0-35.0) pg MCHC (31.0-37.0) g/dL RDW (11.5-15.5) % Plt Count (150-450) k/uL Neutrophils % % Lymphocytes % % Monocytes % % Eosinophils % % Basophils % % Neutrophils # (1.3-7.7) k/uL Lymphocytes # (1.0-4.8) k/uL Monocytes # (0-1.0) k/uL Eosinophils # (0-0.7) k/uL Basophils # (0-0.2) k/uL Macrocytosis PT 10.4 (9.0-12.0) sec INR 1.1 (<1.2) APTT 21.8 L (22.0-30.0) sec D-Dimer 3.58 H (<0.60) mg/L FEU Sodium (137-145) mmol/L Potassium (3.5-5.1) mmol/L Chloride (98-107) mmol/L Carbon Dioxide (22-30) mmol/L Anion Gap mmol/L BUN (9-20) mg/dL Creatinine (0.66-1.25) mg/dL Est GFR (CKD-EPI)AfAm (>60 ml/min/1.73 sqM) Est GFR (CKD-EPI)NonAf (>60 ml/min/1.73 sqM) Glucose (74-99) mg/dL Calcium (8.4-10.2) mg/dL Magnesium (1.6-2.3) mg/dL Total Bilirubin (0.2-1.3) mg/dL AST (17-59) U/L ALT (21-72) U/L Alkaline Phosphatase (38-126) U/L Total Creatine Kinase (55-170) U/L CK-MB (CK-2) (0.0-2.4) ng/mL CK-MB (CK-2) Rel Index Troponin I (0.000-0.034) ng/mL NT-Pro-B Natriuret Pep 91 pg/mL Total Protein (6.3-8.2) g/dL Albumin (3.5-5.0) g/dL Disposition Clinical Impression: COPD (chronic obstructive pulmonary disease), Anxiety Disposition: ADMITTED IP TO THIS HOSP Is patient prescribed a controlled substance at d/c from ED?: No Time of Disposition: 14:12 Decision Date: 04/24/18 Decision Time: 14:29
[2018-04-24] MEDS ORDERED: predniSONE 10 MG TAB PO STA (11:08)
[2018-04-24] MEDS ORDERED: IPRATROPIUM-ALBUTEROL 3 ML NEB INHALATION STA ×2 (11:08→11:42)
[2018-04-24 11:23] LABS: Basophils % (A) 0 %; Eosinophils # (A) 0.1 k/uL (0-0.7); Eosinophils % (A) 1 %; HCT 50.3 % (39.0-53.0); HGB 17.2 gm/dL (13.0-17.5); Lymphocytes # (A) 1.1 k/uL (1.0-4.8); Lymphocytes % (A) 14 %; MCH 35.7 pg (25.0-35.0); MCHC 34.2 g/dL (31.0-37.0); MCV 104.4 fL (80.0-100.0); Macrocytosis Slight; Mean Platelet Volume 6.8; Monocytes # (A) 0.6 k/uL (0-1.0); Monocytes % (A) 7 %; Neutrophils % (A) 76 %; Platelet Count 189 k/uL (150-450); RBC 4.82 m/uL (4.30-5.90); RDW 14.2 % (11.5-15.5); WBC 7.9 k/uL (3.8-10.6)
[2018-04-24 11:32] LABS: ALT 83 U/L (21-72); AST 54 U/L (17-59); Albumin 4.5 g/dL (3.5-5.0); Alkaline Phosphatase 70 U/L (38-126); Anion Gap 14 mmol/L; Blood Urea Nitrogen 20 mg/dL (9-20); Calcium 9.8 mg/dL (8.4-10.2); Carbon Dioxide 26 mmol/L (22-30); Chloride 102 mmol/L (98-107); Glucose 102 mg/dL (74-99); Magnesium 1.8 mg/dL (1.6-2.3); Potassium 4.3 mmol/L (3.5-5.1); Sodium 142 mmol/L (137-145); Total Bilirubin 1.2 mg/dL (0.2-1.3); Total Protein 6.8 g/dL (6.3-8.2)
--- NOTE | 2018-04-24 11:37 | XR ---
EXAMINATION TYPE: XR chest 2V DATE OF EXAM: 04/24/2018 HISTORY: SOB. REFERENCE: Previous study dated 03/07/2018. FINDINGS: Heart is mildly prominent. The lungs are clear. Pleural spaces are clear. IMPRESSION: MILD CARDIOMEGALY.
[2018-04-24 12:03] LABS: Creatine Kinase MB 2.7 ng/mL (0.0-2.4); INR 1.1 (<1.2); Prothrombin Time 10.4 sec (9.0-12.0); Troponin I 0.022 ng/mL (0.000-0.034)
[2018-04-24 12:11] LABS: D-Dimer 3.58 mg/L FEU (<0.60)
[2018-04-24 12:12] LABS: Partial Thromboplastin Time 21.8 sec (22.0-30.0)
--- NOTE | 2018-04-24 12:57 | CT ---
EXAMINATION TYPE: CT angio chest DATE OF EXAM: 04/24/2018 12:50 PM COMPARISON: Previous study dated 01/03/2018. HISTORY: Difficulty breathing CT DLP: 621 mGycm Automated exposure control for dose reduction was used. CONTRAST: CTA scan of the thorax is performed with IV Contrast, patient injected with 100 mL of Isovue 370, pul monary embolism protocol. . FINDINGS: There is atelectatic change in the dependent portions of the lungs. There is no significant axillary, mediastinal or hilar adenopathy. There is no evidence of pulmonary embolus. The aorta is normal in caliber without evidence of dissect ion. There is no pleural or pericardial fluid. The heart is not enlarged. Visualized portions of the upper abdomen are unremarkable. There is minimal hypertrophic spondylosis within the spine. IMPRESSION: THIS EXAMINATION IS NEGATIVE FOR PULMONARY EMBOLUS.
[2018-04-24] MEDS ORDERED: IBUPROFEN 600 MG TAB PO STA (13:35)
[2018-04-24] MEDS ORDERED: amLODIPine 5 MG TAB PO STA (13:43)
[2018-04-24] MEDS ORDERED: SODIUM CHLORIDE 0.9% 1,000 ML IV SCH (14:30)
[2018-04-24] MEDS ORDERED: predniSONE 20 MG TAB PO SCH (14:30)
[2018-04-24] MEDS ORDERED: HYDROcodone/APAP 5-325MG 1 EACH TAB PO STA (14:50)
[2018-04-24] MEDS: AZITHROMYCIN 500 MG TAB PO SCH (15:01)
[2018-04-24] MEDS ORDERED: hydrALAZINE HCL 10 MG TAB PO STA (15:07)
[2018-04-24] MEDS: IPRATROPIUM-ALBUTEROL 3 ML NEB INHALATION PRN (19:00)
[2018-04-24] MEDS: ALPRAZolam 0.5 MG TAB PO PRN (19:21)
[2018-04-24] MEDS: hydrOXYzine HCL 25 MG TAB PO SCH (19:22)
[2018-04-24 21:47] VITALS: RESP 20
[2018-04-24] MEDS: hydrALAZINE HCL 25 MG TAB PO SCH (23:15)
[2018-04-25] MEDS: hydrOXYzine HCL 25 MG TAB PO SCH ×2 (02:12→10:44)
[2018-04-25] MEDS: IPRATROPIUM-ALBUTEROL 3 ML NEB INHALATION PRN ×2 (02:58→07:11)
[2018-04-25 03:02] LABS: Appearance,Urine Clear (Clear); Bilirubin,Urine Negative (Negative); Blood,Urine Negative (Negative); Color,Urine Yellow; Glucose,Urine (UA) 2+ (Negative); Ketones,Urine Trace (Negative); Leukocyte Esterase,Urine Negative (Negative); Nitrite,Urine Negative (Negative); PH, Urine 5.5 (5.0-8.0); Protein,Urine Trace (Negative); Specific Gravity,Urine 1.035 (1.001-1.035); Urobilinogen,Urine <2.0 mg/dL (<2.0)
[2018-04-25 03:13] LABS: Amphetamine Screen,Urine Not Detected (NotDetected); Barbiturate Screen,Urine Not Detected (NotDetected); Benzodiazepines Screen,Urine Detected (NotDetected); Cocaine Screen,Urine Not Detected (NotDetected); Methadone Screen, Urine Not Detected (NotDetected); Opiate Screen,Urine Detected (NotDetected); Oxycodone Screen, Urine Not Detected (NotDetected); Phencyclidine Screen,Urine Not Detected (NotDetected); Tricyclic Antidepressant,Urine Not Detected (NotDetected); Urn Cannabinoid Scrn Not Detected (NotDetected)
[2018-04-25 05:47] VITALS: BP 154/69; TEMP 96.8
[2018-04-25 07:29] VITALS: PULSE 84
[2018-04-25] MEDS ORDERED: HYDROmorphone 1 MG/ML 1 ML SYRINGE IM PRN (08:03)
--- NOTE | 2018-04-25 08:08 | P.CONS ---
History of Present Illness - Chief Complaint Diffuse neck and back pain - History of Present Illness I had the opportunity to see patient for inpatient consultation patient only chronic neck and back pain. He is or readmitted again for exacerbation of neck and back pain, yesterday. Patient requesting IM injection. CTA negative for PE and chest x-ray with mild cardiomegaly only. Review of Systems Review of systems: ENT: Denies sneezes or discharge. Eyes: Denies discharge or photophobia. Cardiac: Denies chest pain or palpitation. Pulmonary: Denies cough or shortness of breath. Gastrointestinal: Denies nausea, emesis, constipation, diarrhea. Genitourinary: Denies discharge or frequency. Musculoskeletal: Diffuse neck and back pain. Neurologic: Denies motor or sensory change. Endocrine: Denies shakes or sweats. Oncology: Denies cancers. Dermatologic: Denies rash, itching, pruritus. ALLERGY/immunology: Denies sneezes, rashes. Past Medical History Past Medical History: Atrial Flutter, Asthma, Chest Pain / Angina, COPD, GERD/ Reflux, Hypertension, Osteoarthritis (OA), Pneumonia, Sleep Apnea/CPAP/BIPAP Additional Past Medical History / Comment(s): Chronic neck and back pain-sees Dr. Trammell, CELE without device, RLS, shingles. Shingles 2017. History of Any Multi-Drug Resistant Organisms: None Reported Past Surgical History: Adenoidectomy, Bowel Resection, Cholecystectomy Additional Past Surgical History / Comment(s): Uvulectomy, bowel resection for large polyps, colonoscopy with polypectomies, nasal surgery x 2, bronchoscopy with lung bx, pain clinic procedures., Past Anesthesia/Blood Transfusion Reactions: Previous Problems w/ Anesthesia, Motion Sickness Additional Past Anesthesia/Blood Transfusion Reaction / Comm: states "during procedure of checking something on my left lung,I turned blue and I was brought right back out anesthesia and proc was cancelled". clausterphobia Past Psychological History: Anxiety, Bipolar, Depression, Panic Disorder Smoking Status: Former smoker Past Alcohol Use History: Heavy Past Drug Use History: None Reported - Past Family History Mother Family Medical History: Asthma Additional Family Medical History / Comment(s): at age 62 Father Family Medical History: CVA/TIA Additional Family Medical History / Comment(s): at age 90 Medications and Allergies Home Medications Medication Instructions Recorded Confirmed Type Montelukast [Singulair] 10 mg PO DAILY 03/16/14 04/24/18 History amLODIPine [Norvasc] 5 mg PO QAM 07/05/14 04/24/18 History ALPRAZolam [Xanax] 1 mg PO TID PRN 09/20/15 04/24/18 History Fluticasone/Vilanterol [Breo 1 puff INHALATION RT-DAILY 07/16/16 04/24/18 History Ellipta 100-25 Mcg Inhaler] Desvenlafaxine [Pristiq ER] 100 mg PO DAILY 09/23/16 04/24/18 History Umeclidinium [place] [Incruse 1 puff INHALATION RT-DAILY 10/08/16 04/24/18 History Ellipta] Hydrocodone/Acetaminophen [[place] 1 tab PO QID PRN 11/06/16 04/24/18 History 10-325] Albuterol Inhaler [Ventolin Hfa 2 puff INHALATION RT-QID PRN 05/28/17 04/24/18 History Inhaler] Famotidine [Pepcid] 20 mg PO DAILY 05/28/17 04/24/18 History Lurasidone [Latuda] 20 mg PO DAILY 06/27/17 04/24/18 History hydrALAZINE HCL [Apresoline] 25 mg PO BID #60 tab 11/20/17 04/24/18 Rx Tamsulosin HCl [Flomax] 0.4 mg PO DAILY 02/22/18 04/24/18 History Doxycycline Monohydrate [Monodox] 100 mg PO Q12HR 04/24/18 04/24/18 History Finasteride [Proscar] 5 mg PO DAILY 04/24/18 04/24/18 History Metoprolol Tartrate 25 mg PO DAILY 04/24/18 04/24/18 History hydrOXYzine HCL 25 mg PO Q8H 04/24/18 04/24/18 History predniSONE 5 mg PO DAILY 04/24/18 04/24/18 History predniSONE See Protocol PO DIRECTED 04/24/18 04/24/18 History Allergies Allergy/AdvReac Type Severity Reaction Status Date / Time peanut Allergy alg testing Verified 04/24/18 14:47 pollen extracts Allergy Unknown Verified 04/24/18 14:47 DUST Allergy alg testing Uncoded 09/23/18 10:02 Physical Exam Vitals: Vital Signs Temp Pulse Pulse Resp BP BP Pulse Ox 04/25/18 07:28 84 04/25/18 07:11 82 04/25/18 05:00 96.8 F L 77 20 154/69 93 L 04/25/18 03:07 100 04/25/18 02:58 96 04/24/18 21:46 97.4 F L 89 20 136/69 94 L 04/24/18 19:16 91 136/82 04/24/18 19:01 102 H 04/24/18 16:51 98.1 F 105 H 18 152/98 96 04/24/18 15:22 98.6 F 84 18 185/93 94 L 04/24/18 14:51 99.4 F 82 18 207/104 94 L 04/24/18 13:24 83 18 164/90 93 L 04/24/18 12:07 100 04/24/18 11:57 103 H 04/24/18 11:33 92 04/24/18 11:24 86 04/24/18 10:00 98.4 F 106 H 26 H 158/91 95 Intake and Output 04/24/18 04/25/18 04/25/18 22:59 06:59 14:59 Intake Total 1100 Balance 1100 Intake: Oral 1100 Other: Voiding Method Toilet Urinal # Voids 2 1 Skin: Good color, texture, turgor. General: Overweight build and comfortable appearance. Head: Normocephalic, atraumatic. Eyes: Symmetric. Pupils equal round. Ears: Symmetric. Hearing within normal limits. Mouth: Clear. Neck: Supple. Carotid without bruit. Cardiac: Regular rate and rhythm. Lungs: Clear anteriorly and posteriorly. Abdomen: Soft active nontender. Extremities: Normal tone. Neck and back: Stiff. Neurological: Mental status: Alert, cooperative, pleasant. Cranial nerves: Symmetric facial tone and trapezius. Motor: Normal strength and isolation all 4 limbs. Sensation: Intact throughout. DTRs: Symmetric and equal throughout. Mobility: Ambulating in room on own without loss of balance. Results CBC & Chem 7: 04/24/18 10:59 04/24/18 10:59 Labs: Abnormal Lab Results - Last 24 Hours (Table) 04/24/18 04/24/18 04/24/18 Range/Units 10:59 10:59 10:59 MCV 104.4 H (80.0-100.0) fL MCH 35.7 H (25.0-35.0) pg APTT (22.0-30.0) sec D-Dimer (<0.60) mg/L FEU Glucose 102 H (74-99) mg/dL ALT 83 H (21-72) U/L CK-MB (CK-2) 2.7 H (0.0-2.4) ng/mL Urine Protein (Negative) Urine Glucose (UA) (Negative) Urine Ketones (Negative) Urine Opiates Screen (NotDetected) U Benzodiazepines Scrn (NotDetected) 04/24/18 04/25/18 Range/Units 10:59 02:51 MCV (80.0-100.0) fL MCH (25.0-35.0) pg APTT 21.8 L (22.0-30.0) sec D-Dimer 3.58 H (<0.60) mg/L FEU Glucose (74-99) mg/dL ALT (21-72) U/L CK-MB (CK-2) (0.0-2.4) ng/mL Urine Protein Trace H (Negative) Urine Glucose (UA) 2+ H (Negative) Urine Ketones Trace H (Negative) Urine Opiates Screen Detected H (NotDetected) U Benzodiazepines Scrn Detected H (NotDetected) Assessment and Plan (1) Acute exacerbation of chronic obstructive airways disease Current Visit: No Status: Acute Code(s): J44.1 - CHRONIC OBSTRUCTIVE PULMONARY DISEASE W (ACUTE) EXACERBATION SNOMED Code(s): 674966852 Plan: Impression: 1. Medical debility. 2. COPD exacerbation. 3. Exacerbation chronic neck and back pain. Comments and plan: Patient well known to me for chronic neck and back pain. Also well known to me for recent frequent admissions for same. He is again admitted for the same problem. At this time, requesting IM injection and we'll plan for Dilaudid 1 mg every 6 scheduled. Noted patient has prescriptions for [place] 10 4 times a day for April 20, May 20, already.
[2018-04-25] MEDS: AZITHROMYCIN 500 MG TAB PO SCH (08:25)
[2018-04-25] MEDS: hydrALAZINE HCL 25 MG TAB PO SCH (08:26)
[2018-04-25] MEDS ORDERED: FINASTERIDE 5 MG TAB PO SCH (09:00)
[2018-04-25] MEDS ORDERED: FAMOTIDINE 20 MG TAB PO SCH (09:00)
[2018-04-25] MEDS ORDERED: DESVENLAFAXINE SUCCINATE 50 MG TAB.ER.24H PO SCH (09:00)
[2018-04-25] MEDS ORDERED: predniSONE 20 MG TAB PO SCH (09:00)
[2018-04-25] MEDS ORDERED: TAMSULOSIN 0.4 MG CAP.ER.24H PO SCH (09:00)
[2018-04-25] MEDS ORDERED: MONTELUKAST 10 MG TAB PO SCH (09:00)
[2018-04-25] MEDS ORDERED: METOPROLOL TARTRATE 25 MG TAB PO SCH (09:00)
[2018-04-25] MEDS ORDERED: amLODIPine 5 MG TAB PO SCH (09:00)
[2018-04-25] MEDS ORDERED: LURASIDONE 20 MG TAB PO SCH (09:00)
[2018-04-25] MEDS ORDERED: predniSONE 5 MG TAB PO SCH (09:00)
--- NOTE | 2018-04-25 10:21 | P.DS ---
Providers Date of admission: 04/24/18 14:24 Expected date of discharge: 04/25/18 Attending physician: Genaro Lawson Consults: 04/24/18 17:49 Consult Physician Routine Consulting Provider: George Trammell Consult Reason/Comments: patient of record Do you want consulting provider notified?: Yes 04/25/18 08:05 Consult Physician Routine Consulting Provider: Nehemiah Granados Consult Reason/Comments: COPD Exac. Do you want consulting provider notified?: Yes Primary care physician: [facility] Course: This document serves as H&P and discharge summary 62 year old male who presented to the emergency room with a chief complaint of anxiety and panic attacks. Patient reports he is scheduled to see a therapist in the near future. patient is prescribed xanax. Patient also has a history of COPD and did complain of SOB in the emergency room. He was placed on PO steroids and given a breathing treatment. The patient states his breathing is back to his baseline and his anxiety has improved. He was deemed stable for discharge home per Dr. Nuñez. He was presribed a prednisone taper at discharge. DISCHARGE DIAGNOSIS: Acute exacerbation of chronic obstructive pulmonary disease Anxiety History of sleep apnea, noncompliant with CPAP Hypertension Chronic back and neck pain, sees Dr. Marcus outpatient for pain management Depression Bipolar disorder Obesity: BMI 34.4 Daily alcohol use, patient reports drinking at least one fifth of whiskey weekly Nurse practitioner note has been reviewed by physician. Signing provider agrees with the documented findings, assessment, and plan of care. Plan - Discharge Summary Discharge Rx Participant: No New Discharge Prescriptions: New predniSONE See Taper PO DIRECTED #30 tab Continue Montelukast [Singulair] 10 mg PO DAILY amLODIPine [Norvasc] 5 mg PO QAM ALPRAZolam [Xanax] 1 mg PO TID PRN PRN Reason: Anxiety Fluticasone/Vilanterol [Breo Ellipt[place] 100-25 Mcg Inhaler] 1 puff INHALATION RT -DAILY Desvenlafaxine [Pristiq ER] 100 mg PO DAILY Umeclidinium [place] [Incruse Ellipta] 1 puff INHALATION RT-DAILY Hydrocodone/Acetaminophen [[place] 10-325] 1 tab PO QID PRN PRN Reason: Pain Albuterol Inhaler [Ventolin Hfa Inhaler] 2 puff INHALATION RT-QID PRN PRN Reason: Shortness Of Breath Famotidine [Pepcid] 20 mg PO DAILY Lurasidone [Latuda] 20 mg PO DAILY hydrALAZINE HCL [Apresoline] 25 mg PO BID #60 tab Tamsulosin HCl [Flomax] 0.4 mg PO DAILY Finasteride [Proscar] 5 mg PO DAILY hydrOXYzine HCL 25 mg PO Q8H Metoprolol Tartrate 25 mg PO DAILY Discontinued Doxycycline Monohydrate [Monodox] 100 mg PO Q12HR predniSONE See Protocol PO DIRECTED predniSONE 5 mg PO DAILY Discharge Medication List Montelukast [Singulair] 10 mg PO DAILY 03/16/14 [History] amLODIPine [Norvasc] 5 mg PO QAM 07/05/14 [History] ALPRAZolam [Xanax] 1 mg PO TID PRN 09/20/15 [History] Fluticasone/Vilanterol [Breo Ellipta 100-25 Mcg Inhaler] 1 puff INHALATION RT- DAILY 07/16/16 [History] Desvenlafaxine [Pristiq ER] 100 mg PO DAILY 09/23/16 [History] Umeclidinium [place] [Incruse Ellipta] 1 puff INHALATION RT-DAILY 10/08/16 [ History] Hydrocodone/Acetaminophen [[place] 10-325] 1 tab PO QID PRN 11/06/16 [History] Albuterol Inhaler [Ventolin Hfa Inhaler] 2 puff INHALATION RT-QID PRN 05/28/17 [ History] Famotidine [Pepcid] 20 mg PO DAILY 05/28/17 [History] Lurasidone [Latuda] 20 mg PO DAILY 06/27/17 [History] hydrALAZINE HCL [Apresoline] 25 mg PO BID #60 tab 11/20/17 [Rx] Tamsulosin HCl [Flomax] 0.4 mg PO DAILY 02/22/18 [History] Finasteride [Proscar] 5 mg PO DAILY 04/24/18 [History] Metoprolol Tartrate 25 mg PO DAILY 04/24/18 [History] hydrOXYzine HCL 25 mg PO Q8H 04/24/18 [History] predniSONE See Taper PO DIRECTED #30 tab 04/25/18 [Rx] Follow up Appointment(s)/Referral(s): Genaro Lawson Jr, [Primary Care Provider] - 1-2 days George Trammell MD [STAFF PHYSICIAN] - As Needed Nehemiah Granados MD [STAFF PHYSICIAN] - 2 Weeks Patient Instructions/Handouts: COPD (Chronic Obstructive Pulmonary Disease) (ED ), Generalized Anxiety Disorder (ED) Discharge Disposition: HOME SELF-CARE
[2018-04-25] MEDS: ALPRAZolam 0.5 MG TAB PO PRN (10:44)
== END 2018-04-25 11:20 | disposition home or self-care (01) ==
LOC: EC 09:49 → 5MS5E 14:24
PROVIDERS: ADMIT Family Medicine; ATTEND Family Medicine
DX: J44.1 Chronic obstructive pulmonary disease with (acute) exacerbation (principal); F41.1 Generalized anxiety disorder; I11.9 Hypertensive heart disease without heart failure; F41.0 Panic disorder [episodic paroxysmal anxiety]; F31.9 Bipolar disorder, unspecified; R53.81 Other malaise; K21.9 Gastro-esophageal reflux disease without esophagitis; M19.90 Unspecified osteoarthritis, unspecified site; I48.92 Unspecified atrial flutter; G47.33 Obstructive sleep apnea (adult) (pediatric); Z91.19 Patient's noncompliance with other medical treatment and regimen; Z99.89 Dependence on other enabling machines and devices; M54.2 Cervicalgia; M54.5 Low back pain; G89.29 Other chronic pain; G25.81 Restless legs syndrome; F40.240 Claustrophobia; E66.9 Obesity, unspecified; Z68.34 Body mass index [BMI] 34.0-34.9, adult; Z79.51 Long term (current) use of inhaled steroids; Z79.52 Long term (current) use of systemic steroids; Z79.899 Other long term (current) drug therapy; Z91.010 Allergy to peanuts; Z91.048 Other nonmedicinal substance allergy status; Z86.19 Personal history of other infectious and parasitic diseases; Z87.01 Personal history of pneumonia (recurrent); Z90.49 Acquired absence of other specified parts of digestive tract; Z86.010 Personal history of colon polyps; Z87.891 Personal history of nicotine dependence; Z82.5 Family history of asthma and other chronic lower respiratory diseases; Z82.3 Family history of stroke; Z72.89 Other problems related to lifestyle
CPT/HCPCS: 96372; 99285; 36415; 94640 ×4; 93005; 85379; 83880; 80053; 82550; 82553; 83735; 84484; 85025; 85610; 85730; 81003; 80306; 71046; 71275; G0378 ×2; S0138; J1170; J7512 ×2; Q9967

== ENCOUNTER 2018-05-06 01:08 | Emergency (ER) | payer MEDICARE, OTHER ==
[2018-05-06 01:15] VITALS: BP 158/103; TEMP 97.7
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
[2018-05-06 01:41] VITALS: PULSE 99; RESP 16
== END 2018-05-06 01:40 | disposition home or self-care (01) ==
LOC: EC 01:08
DX: F41.9 Anxiety disorder, unspecified (principal); F13.10 Sedative, hypnotic or anxiolytic abuse, uncomplicated; Z71.51 Drug abuse counseling and surveillance of drug abuser; I48.92 Unspecified atrial flutter; J44.9 Chronic obstructive pulmonary disease, unspecified; K21.9 Gastro-esophageal reflux disease without esophagitis; I10 Essential (primary) hypertension; G47.33 Obstructive sleep apnea (adult) (pediatric); F31.9 Bipolar disorder, unspecified; Z79.51 Long term (current) use of inhaled steroids; Z79.899 Other long term (current) drug therapy; Z91.010 Allergy to peanuts; Z91.09 Other allergy status, other than to drugs and biological substances; Z87.891 Personal history of nicotine dependence
CPT/HCPCS: 99284

== ENCOUNTER 2018-05-10 19:11 | Emergency (ER) | payer MEDICARE, OTHER ==
[2018-05-10 19:50] VITALS: PULSE 72
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
[2018-05-10] MEDS ORDERED: ALPRAZolam 1 MG TAB PO STA (21:39)
[2018-05-10 22:02] VITALS: BP 122/83; RESP 17; TEMP 98.1
== END 2018-05-10 22:00 | disposition home or self-care (01) ==
LOC: EC 19:11
DX: F13.239 Sedative, hypnotic or anxiolytic dependence with withdrawal, unspecified (principal); R21 Rash and other nonspecific skin eruption; J44.9 Chronic obstructive pulmonary disease, unspecified; I10 Essential (primary) hypertension; K21.9 Gastro-esophageal reflux disease without esophagitis; G89.29 Other chronic pain; F31.9 Bipolar disorder, unspecified; F41.9 Anxiety disorder, unspecified; Z87.891 Personal history of nicotine dependence; Z91.010 Allergy to peanuts; Z91.048 Other nonmedicinal substance allergy status; Z79.51 Long term (current) use of inhaled steroids; Z79.899 Other long term (current) drug therapy; Z87.01 Personal history of pneumonia (recurrent); Z86.79 Personal history of other diseases of the circulatory system
CPT/HCPCS: 99283

== ENCOUNTER 2018-06-25 15:06 | Emergency (ER) | payer MEDICARE, OTHER ==
[2018-06-25 15:11] VITALS: BP 121/78; PULSE 59; RESP 18; TEMP 98.2
[2018-06-25] MEDS ORDERED: IBUPROFEN 800 MG TAB PO STA (15:26)
--- NOTE | 2018-06-25 15:30 | ED ---
ENT HPI - General Chief complaint: ENT Stated complaint: blocked ear, SOB, anxiety Time Seen by Provider: 06/25/18 15:17 Source: patient Mode of arrival: ambulatory Limitations: no limitations - History of Present Illness Initial comments: Patient is a 62-year-old male with a history of COPD and anxiety who presents with a chief complaint of right ear pain. This been going on for about for 5 days. The patient states that he has a lot of earwax but he is unable to clear. He has tried an [id number] earwax irrigation kit without relief. Patient denies any fevers, chills, nausea or vomiting, difficulty hearing, though he admits to some dizziness. Patient cannot identify inciting incident. There are no aggravating or alleviating factors. - Related Data Home Medications Medication Instructions Recorded Confirmed Montelukast [Singulair] 10 mg PO DAILY 03/16/14 05/10/18 amLODIPine [Norvasc] 5 mg PO QAM 07/05/14 05/10/18 ALPRAZolam [Xanax] 1 mg PO TID PRN 09/20/15 05/10/18 Fluticasone/Vilanterol [Breo 1 puff INHALATION RT-DAILY 07/16/16 05/10/18 Ellipta 100-25 Mcg Inhaler] Desvenlafaxine [Pristiq ER] 100 mg PO DAILY 09/23/16 05/10/18 Umeclidinium [place] [Incruse 1 puff INHALATION RT-DAILY 10/08/16 05/10/18 Ellipta] Hydrocodone/Acetaminophen [[place] 1 tab PO QID PRN 11/06/16 05/10/18 10-325] Albuterol Inhaler [Ventolin Hfa 2 puff INHALATION RT-QID PRN 05/28/17 05/10/18 Inhaler] Famotidine [Pepcid] 20 mg PO DAILY 05/28/17 05/10/18 Lurasidone [Latuda] 20 mg PO DAILY 06/27/17 05/10/18 Tamsulosin HCl [Flomax] 0.4 mg PO DAILY 02/22/18 05/10/18 Finasteride [Proscar] 5 mg PO DAILY 04/24/18 05/10/18 Metoprolol Tartrate 25 mg PO DAILY 04/24/18 05/10/18 hydrOXYzine HCL 25 mg PO Q8H 04/24/18 05/10/18 chlordiazePOXIDE HCL 25 mg PO TID 05/10/18 05/10/18 Previous Rx's Medication Instructions Recorded hydrALAZINE HCL [Apresoline] 25 mg PO BID #60 tab 11/20/17 predniSONE See Taper PO DIRECTED #30 tab 04/25/18 Allergies Allergy/AdvReac Type Severity Reaction Status Date / Time peanut Allergy alg testing Verified 05/10/18 21:05 pollen extracts Allergy Unknown Verified 05/10/18 21:05 DUST Allergy alg testing Uncoded 05/10/18 19:50 Review of Systems ROS Statement: Those systems with pertinent positive or pertinent negative responses have been documented in the HPI. ROS Other: All systems not noted in ROS Statement are negative. ENT: Reports: ear pain Past Medical History Past Medical History: Atrial Flutter, Asthma, Chest Pain / Angina, COPD, GERD/ Reflux, Hypertension, Osteoarthritis (OA), Pneumonia, Sleep Apnea/CPAP/BIPAP Additional Past Medical History / Comment(s): Chronic neck and back pain-sees Dr. Trammell, CELE without device, RLS, shingles. Shingles 2017. History of Any Multi-Drug Resistant Organisms: None Reported Past Surgical History: Adenoidectomy, Bowel Resection, Cholecystectomy Additional Past Surgical History / Comment(s): Uvulectomy, bowel resection for large polyps, colonoscopy with polypectomies, nasal surgery x 2, bronchoscopy with lung bx, pain clinic procedures., Past Anesthesia/Blood Transfusion Reactions: Previous Problems w/ Anesthesia, Motion Sickness Additional Past Anesthesia/Blood Transfusion Reaction / Comment(s): states "during procedure of checking something on my left lung,I turned blue and I was brought right back out anesthesia and proc was cancelled". clausterphobia Past Psychological History: Anxiety, Bipolar, Depression, Panic Disorder Smoking Status: Former smoker Past Alcohol Use History: Heavy Past Drug Use History: None Reported - Past Family History Mother Family Medical History: Asthma Additional Family Medical History / Comment(s): at age 62 Father Family Medical History: CVA/TIA Additional Family Medical History / Comment(s): at age 90 General Exam Limitations: no limitations General appearance: alert, in no apparent distress Head exam: Present: atraumatic, normocephalic Eye exam: Present: normal appearance, PERRL ENT exam: Present: mucous membranes moist, normal external ear exam, other ( inflammation of the right ear and wax impaction. erythema present in the right ear canal. tissue friability noted with manual wax removal ) Course Vital Signs 06/25/18 15:08 Temperature 98.2 F Pulse Rate 59 L Respiratory 18 Rate Blood Pressure 121/78 O2 Sat by Pulse 96 Oximetry Medical Decision Making - Medical Decision Making Patient presents with chief complaint of right ear pain wax impaction. On initial evaluation, vitals stable, patient is in no acute distress. Manual disimpaction of the ear with a curette was attempted. There is some earwax retrieval. Tissue was noted to be friable, considering otitis media. Patient will have irrigation of the right ear in the emergency department, given 800 mg of Motrin for pain. 3:43 PM Irrigation completed by nursing staff, there was moderate amount of cerumen removed. Patient says he feels better. Reexamination of the ear shows no indication of infection, only trauma to the canal likely secondary q-tips or the curette. patient stable for discharge at this time. he was instructed to follow up with pcp in 1-2 days, return to the ED if sx worsen or change. no abx indicated at this time. Disposition Clinical Impression: Cerumen debris on tympanic membrane of right ear Disposition: HOME SELF-CARE Condition: Good Instructions: Ear Foreign Body (ED) Is patient prescribed a controlled substance at d/c from ED?: No Referrals: Michael Nuñez MD [Primary Care Provider] - 1-2 days
[2018-06-25] MEDS ORDERED: ALPRAZolam 1 MG TAB PO STA (15:44)
[2018-06-25] MEDS ORDERED: LIDOCAINE/EPINEPHR/TETRACAINE 5 ML BOTTLE TOPICAL ONE (15:58)
== END 2018-06-25 16:02 | disposition home or self-care (01) ==
LOC: EC 15:06
DX: H61.21 Impacted cerumen, right ear (principal); F41.0 Panic disorder [episodic paroxysmal anxiety]; F31.9 Bipolar disorder, unspecified; J44.9 Chronic obstructive pulmonary disease, unspecified; K21.9 Gastro-esophageal reflux disease without esophagitis; I10 Essential (primary) hypertension; M19.90 Unspecified osteoarthritis, unspecified site; G47.33 Obstructive sleep apnea (adult) (pediatric); I48.92 Unspecified atrial flutter; Z79.51 Long term (current) use of inhaled steroids; Z79.899 Other long term (current) drug therapy; Z91.010 Allergy to peanuts; Z91.018 Allergy to other foods; Z91.09 Other allergy status, other than to drugs and biological substances; Z87.891 Personal history of nicotine dependence
CPT/HCPCS: 69209; 99282

== ENCOUNTER 2018-08-11 01:45 | Emergency (ER) | payer MEDICARE, OTHER ==
--- NOTE | 2018-08-11 04:26 | CT ---
EXAMINATION TYPE: CT cervical spine wo con DATE OF EXAM: 08/11/2018 COMPARISON: 02/07/2018 HISTORY: pt. fell out of bed and c/o neck pain CT DLP: 423.5 mGycm Automated exposure control for dose reduction was used. TECHNIQUE: CT scan of the cervical spine is obtained without contrast, axial images are obtained, sa gittal and coronal reformatted images are also reviewed. FINDINGS: There is some straightening of the cervical spine. There is degenerative disc space narrowi ng and spur formation from C4 to T1 vertebra. The posterior elements are intact. There is hypertrophi c facet arthropathy in the cervical spine. The skull base is intact. There is no evidence of a fractu re. IMPRESSION: Spondylotic changes in the mid and lower cervical spine. No fracture. Facet arthropathy. No change.
[2018-08-11] MEDS ORDERED: ALBUTEROL NEBULIZED 2.5 MG/3 ML INHALATION STA (04:38)
[2018-08-11] MEDS ORDERED: ORPHENADRINE 30 MG/ML 2 ML VIAL IM STA (04:38)
--- NOTE | 2018-08-11 05:14 | XR ---
EXAMINATION TYPE: XR chest 2V DATE OF EXAM: 08/11/2018 COMPARISON: 04/24/2018 HISTORY: Chest pain TECHNIQUE: Frontal and lateral views of the chest are obtained. FINDINGS: Heart and mediastinum are normal. Lungs are clear. Diaphragm is normal. Bony thorax appear s normal. IMPRESSION: Normal chest. No change.
[2018-08-11] MEDS ORDERED: MORPHINE SULFATE 4 MG/ML SYRINGE IM STA (05:48)
--- NOTE | 2018-08-11 05:48 | ED ---
General Adult HPI - General Chief complaint: Upper Respiratory Infection Stated complaint: Fall- from bed- neck pain Time Seen by Provider: 08/11/18 04:39 Source: patient Mode of arrival: wheelchair Limitations: no limitations - History of Present Illness Initial comments: This patient is 62-year-old man who presents with 2 complaints. One is that he is having some mild dyspnea that he feels may be flareup of his COPD but he was concerned about possibility of influenza. On the second is that in ambulating around his home tonight, he had a ground-level fall and now is having some pain at the back of his cervical spine area. The patient is denying any neurologic symptoms, no pain or weakness into the arms. No other injuries. -: hour(s) Location: neck Radiation: non-radiation Quality: aching Consistency: constant Improves with: none Worsens with: movement Associated Symptoms: cough - Related Data Home Medications Medication Instructions Recorded Confirmed Montelukast [Singulair] 10 mg PO DAILY 03/16/14 05/10/18 amLODIPine [Norvasc] 5 mg PO QAM 07/05/14 05/10/18 ALPRAZolam [Xanax] 1 mg PO TID PRN 09/20/15 05/10/18 Fluticasone/Vilanterol [Breo 1 puff INHALATION RT-DAILY 07/16/16 05/10/18 Ellipta 100-25 Mcg Inhaler] Desvenlafaxine [Pristiq ER] 100 mg PO DAILY 09/23/16 05/10/18 Umeclidinium [place] [Incruse 1 puff INHALATION RT-DAILY 10/08/16 05/10/18 Ellipta] Hydrocodone/Acetaminophen [[place] 1 tab PO QID PRN 11/06/16 05/10/18 10-325] Albuterol Inhaler [Ventolin Hfa 2 puff INHALATION RT-QID PRN 05/28/17 05/10/18 Inhaler] Famotidine [Pepcid] 20 mg PO DAILY 05/28/17 05/10/18 Lurasidone [Latuda] 20 mg PO DAILY 06/27/17 05/10/18 Tamsulosin HCl [Flomax] 0.4 mg PO DAILY 02/22/18 05/10/18 Finasteride [Proscar] 5 mg PO DAILY 04/24/18 05/10/18 Metoprolol Tartrate 25 mg PO DAILY 04/24/18 05/10/18 hydrOXYzine HCL 25 mg PO Q8H 04/24/18 05/10/18 chlordiazePOXIDE HCL 25 mg PO TID 05/10/18 05/10/18 Previous Rx's Medication Instructions Recorded hydrALAZINE HCL [Apresoline] 25 mg PO BID #60 tab 11/20/17 predniSONE See Taper PO DIRECTED #30 tab 04/25/18 Allergies Allergy/AdvReac Type Severity Reaction Status Date / Time peanut Allergy alg testing Verified 05/10/18 21:05 pollen extracts Allergy Unknown Verified 05/10/18 21:05 DUST Allergy alg testing Uncoded 05/10/18 19:50 Review of Systems ROS Statement: Those systems with pertinent positive or pertinent negative responses have been documented in the HPI. ROS Other: All systems not noted in ROS Statement are negative. Constitutional: Denies: fever, chills, weakness Respiratory: Reports: cough, dyspnea, wheezes. Denies: hemoptysis Cardiovascular: Denies: chest pain, palpitations, syncope Gastrointestinal: Denies: abdominal pain, nausea, vomiting Genitourinary: Denies: dysuria, hematuria Musculoskeletal: Reports: as per HPI. Denies: back pain, joint swelling, arthralgia Skin: Denies: rash Neurological: Denies: headache, weakness, numbness, paresthesias Past Medical History Past Medical History: Atrial Flutter, Asthma, Chest Pain / Angina, COPD, GERD/ Reflux, Hypertension, Osteoarthritis (OA), Pneumonia, Sleep Apnea/CPAP/BIPAP Additional Past Medical History / Comment(s): Chronic neck and back pain-sees Dr. Trammell, CELE without device, RLS, shingles. Shingles 2017. History of Any Multi-Drug Resistant Organisms: None Reported Past Surgical History: Adenoidectomy, Bowel Resection, Cholecystectomy Additional Past Surgical History / Comment(s): Uvulectomy, bowel resection for large polyps, colonoscopy with polypectomies, nasal surgery x 2, bronchoscopy with lung bx, pain clinic procedures., Past Anesthesia/Blood Transfusion Reactions: Previous Problems w/ Anesthesia, Motion Sickness Additional Past Anesthesia/Blood Transfusion Reaction / Comment(s): states "during procedure of checking something on my left lung,I turned blue and I was brought right back out anesthesia and proc was cancelled". clausterphobia Past Psychological History: Anxiety, Bipolar, Depression, Panic Disorder Smoking Status: Former smoker Past Alcohol Use History: Heavy Past Drug Use History: None Reported - Past Family History Mother Family Medical History: Asthma Additional Family Medical History / Comment(s): at age 62 Father Family Medical History: CVA/TIA Additional Family Medical History / Comment(s): at age 90 General Exam Limitations: no limitations General appearance: alert, in no apparent distress Head exam: Present: atraumatic, normocephalic. Absent: normal inspection Eye exam: Present: normal appearance Neck exam: Present: normal inspection, tenderness, other (Cervical collar) Respiratory exam: Present: wheezes. Absent: respiratory distress, rales, rhonchi, stridor, chest wall tenderness Cardiovascular Exam: Present: regular rate, normal rhythm, normal heart sounds. Absent: systolic murmur, diastolic murmur, rubs, gallop GI/Abdominal exam: Present: soft. Absent: distended, tenderness, guarding, rebound, rigid Extremities exam: Present: normal inspection, normal capillary refill. Absent: pedal edema, calf tenderness Back exam: Present: normal inspection. Absent: CVA tenderness (R), CVA tenderness (L) Skin exam: Present: warm, dry, intact, normal color. Absent: rash Course Vital Signs 08/11/18 08/11/18 08/11/18 02:05 05:17 05:30 Temperature 98.0 F Pulse Rate 78 80 80 Respiratory 16 Rate Blood Pressure 145/99 O2 Sat by Pulse 97 Oximetry 08/11/18 06:31 Temperature 97.8 F Pulse Rate 87 Respiratory 18 Rate Blood Pressure 134/92 O2 Sat by Pulse 98 Oximetry Disposition Clinical Impression: Cervical strain, acute, COPD exacerbation Disposition: HOME SELF-CARE Condition: Good Instructions: Cervical Strain (ED), COPD (Chronic Obstructive Pulmonary Disease ) (ED) Is patient prescribed a controlled substance at d/c from ED?: No Referrals: Deborah Shah III, MD [Primary Care Provider] - 1-2 days
[2018-08-11 06:38] VITALS: BP 134/92; PULSE 87; RESP 18; TEMP 97.8
== END 2018-08-11 06:31 | disposition home or self-care (01) ==
LOC: EC 01:45
DX: S16.1XXA Strain of muscle, fascia and tendon at neck level, initial encounter (principal); J44.1 Chronic obstructive pulmonary disease with (acute) exacerbation; I48.92 Unspecified atrial flutter; K21.9 Gastro-esophageal reflux disease without esophagitis; I10 Essential (primary) hypertension; F32.9 Major depressive disorder, single episode, unspecified; G47.33 Obstructive sleep apnea (adult) (pediatric); Z99.89 Dependence on other enabling machines and devices; Z87.891 Personal history of nicotine dependence; Z82.5 Family history of asthma and other chronic lower respiratory diseases; Z79.51 Long term (current) use of inhaled steroids; Z79.899 Other long term (current) drug therapy; Z91.010 Allergy to peanuts; Z91.048 Other nonmedicinal substance allergy status; W06.XXXA Fall from bed, initial encounter
CPT/HCPCS: 94640; 71046; 72125; 99285; 96372 ×2; J2270; J2360

== ENCOUNTER 2018-09-23 09:57 | Observation (INO) | payer MEDICARE ==
[2018-09-23] MEDS ORDERED: DEXAMETHASONE 4 MG TAB PO STA (10:21)
[2018-09-23] MEDS ORDERED: IPRATROPIUM 0.5 MG/2.5 ML NEBU INHALATION STA (10:21)
[2018-09-23] MEDS ORDERED: ALBUTEROL NEBULIZED 2.5 MG/3 ML INHALATION STA (10:21)
--- NOTE | 2018-09-23 10:26 | ED ---
General Adult HPI - General Chief complaint: Shortness of Breath Stated complaint: SOB & Eye Pain Time Seen by Provider: 09/23/18 10:13 Source: patient Mode of arrival: ambulatory Limitations: no limitations - History of Present Illness Initial comments: Dictation was produced using [email or web address] dictation software. please excuse any grammatical, word or spelling errors. Chief Complaint: 62-year-old male past medical history of COPD, atrial flutter, asthma, hypertension presents with one-week history of dyspnea and right eye tearing History of Present Illness: Patient's 62-year-old male. He presents with chief complaint of dyspnea and right eye tearing. He states he's had both symptoms for approximately one week. States that his symptoms acutely worsen today upon waking. Patient reports that he has a history of COPD. He does have breathing treatments at home however he reports that they haven't really been improving his symptoms. States he woke this morning with severe swelling and tearing around the right eye. Denies any eye pain at this time. Patient does report increased cough. Denies any bilateral lower extremities. The ROS documented in this emergency department record has been reviewed and confirmed by me. Those systems with pertinent positive or negative responses have been documented in the HPI. All other systems are other negative and/or noncontributory. PHYSICAL EXAM: General Impression: Alert and oriented x3, not in acute distress HEENT: Normocephalic atraumatic, extra-ocular movements intact, pupils equal and reactive to light bilaterally, mucous membranes moist, mild periorbital edema with mild conjunctivitis Cardiovascular: Heart regular rate and rhythm, S1&S2 audible, no murmurs, rubs or gallops Chest: Diffuse end expiratory wheezing Abdomen: Bowel sounds present, abdomen soft, non-tender, non-distended, no organomegaly Musculoskeletal: Pulses present and equal in all extremities, no peripheral edema Motor: Power 5/5 bilaterally, no focal deficits noted Neurological: CN II-XII grossly intact, no focal motor or sensory deficits noted Skin: Intact with no visualized rashes Psych: Normal affect and mood ED course: 62-year-old male presents with chief complaint of dyspnea and right eye symptoms. Vital signs upon arrival are within acceptable limits. Physical examination positive for diffuse end expiratory wheezing.Return evaluation obtained. CBC, coag panel unremarkable. D-dimer 0.83. D-dimer was pursued given the patient has no EKG findings in the setting of shortness of breath. There was moderate clinical suspicion of acute pulmonary embolus. Metabolic panel is unremarkable. Cardiac enzymes are negative. Chest x-ray shows hazy bibasilar opacities which could represent pneumonia. CT angiogram did not demonstrate any pulmonary emboli. There is bibasilar opacities represent early developing pneumonia. No acute aortic dissection. Patient given breathing treatment reports some improvement. Patient told that he is well enough to go home if he feels confident in managing this outpatient. He states he lives alone and does not have access to resources. He requests that he be admitted to the hospital. Patient still showing some signs of respiratory distress. Vital more comfortable being admitted inpatient. Clinical presentation consistent with COPD exacerbation. Patient is given steroids and breathing treatment and antibiotics. EKG interpretation: Ventricular rate 75, normal sinus rhythm, ID interval 140, QS 1:30, QTc 504. No ID prolongation. There is a new right bundle branch block today. QT prolongation of 504. - Related Data Home Medications Medication Instructions Recorded Confirmed Montelukast [Singulair] 10 mg PO DAILY 03/16/14 09/23/18 Albuterol Inhaler [Ventolin Hfa 2 puff INHALATION RT-Q4H PRN 05/28/17 09/23/18 Inhaler] Tamsulosin HCl [Flomax] 0.4 mg PO DAILY 02/22/18 09/23/18 Metoprolol Tartrate 25 mg PO DAILY 04/24/18 09/23/18 Eszopiclone 2 mg PO HS 09/23/18 09/23/18 Sertraline [Zoloft] 100 mg PO DAILY 09/23/18 09/23/18 oxyCODONE-APAP 10-325MG [Percocet 1 tab PO QID PRN 09/23/18 09/23/18 10-325 mg] Previous Rx's Medication Instructions Recorded hydrALAZINE HCL [Apresoline] 25 mg PO BID #60 tab 11/20/17 Allergies Allergy/AdvReac Type Severity Reaction Status Date / Time peanut Allergy alg testing Verified 09/23/18 10:28 pollen extracts Allergy Unknown Verified 09/23/18 10:28 DUST Allergy alg testing Uncoded 05/10/18 19:50 Review of Systems ROS Statement: Those systems with pertinent positive or pertinent negative responses have been documented in the HPI. ROS Other: All systems not noted in ROS Statement are negative. Past Medical History Past Medical History: Atrial Flutter, Asthma, Chest Pain / Angina, COPD, GERD/ Reflux, Hypertension, Osteoarthritis (OA), Pneumonia, Sleep Apnea/CPAP/BIPAP Additional Past Medical History / Comment(s): Chronic neck and back pain-sees Dr. Trammell, CELE without device, RLS, shingles. Shingles 2017. History of Any Multi-Drug Resistant Organisms: None Reported Past Surgical History: Adenoidectomy, Bowel Resection, Cholecystectomy Additional Past Surgical History / Comment(s): Uvulectomy, bowel resection for large polyps, colonoscopy with polypectomies, nasal surgery x 2, bronchoscopy with lung bx, pain clinic procedures., Past Anesthesia/Blood Transfusion Reactions: Previous Problems w/ Anesthesia, Motion Sickness Additional Past Anesthesia/Blood Transfusion Reaction / Comment(s): states "during procedure of checking something on my left lung,I turned blue and I was brought right back out anesthesia and proc was cancelled". clausterphobia Past Psychological History: Anxiety, Bipolar, Depression, Panic Disorder Smoking Status: Former smoker Past Alcohol Use History: Heavy Past Drug Use History: Marijuana - Past Family History Mother Family Medical History: Asthma Additional Family Medical History / Comment(s): at age 62 Father Family Medical History: CVA/TIA Additional Family Medical History / Comment(s): at age 90 General Exam Limitations: no limitations Course Vital Signs 09/23/18 09/23/18 09/23/18 10:02 11:05 11:25 Temperature 98.1 F Pulse Rate 57 L 60 67 Respiratory 20 Rate Blood Pressure 166/96 O2 Sat by Pulse 96 Oximetry 09/23/18 09/23/18 09/23/18 11:35 11:57 12:48 Temperature Pulse Rate 69 72 74 Respiratory 18 Rate Blood Pressure 173/89 O2 Sat by Pulse 95 Oximetry Medical Decision Making - Lab Data Result diagrams: 09/23/18 10:52 09/23/18 10:52 Lab Results 09/23/18 09/23/18 09/23/18 Range/Units 10:45 10:52 10:52 WBC 6.9 (3.8-10.6) k/uL RBC 4.54 (4.30-5.90) m/uL Hgb 14.5 (13.0-17.5) gm/dL Hct 43.8 (39.0-53.0) % MCV 96.5 (80.0-100.0) fL MCH 31.8 (25.0-35.0) pg MCHC 33.0 (31.0-37.0) g/dL RDW 14.9 (11.5-15.5) % Plt Count 163 (150-450) k/uL Neutrophils % 75 % Lymphocytes % 14 % Monocytes % 7 % Eosinophils % 3 % Basophils % 1 % Neutrophils # 5.2 (1.3-7.7) k/uL Lymphocytes # 0.9 L (1.0-4.8) k/uL Monocytes # 0.5 (0-1.0) k/uL Eosinophils # 0.2 (0-0.7) k/uL Basophils # 0.0 (0-0.2) k/uL PT (9.0-12.0) sec INR (<1.2) D-Dimer (<0.60) mg/L FEU Sodium 143 (137-145) mmol/L Potassium 4.7 (3.5-5.1) mmol/L Chloride 109 H (98-107) mmol/L Carbon Dioxide 26 (22-30) mmol/L Anion Gap 8 mmol/L BUN 12 (9-20) mg/dL Creatinine 0.80 (0.66-1.25) mg/dL Est GFR (CKD-EPI)AfAm >90 (>60 ml/min/1.73 sqM) Est GFR (CKD-EPI)NonAf >90 (>60 ml/min/1.73 sqM) Glucose 106 H (74-99) mg/dL Calcium 9.1 (8.4-10.2) mg/dL Magnesium 1.9 (1.6-2.3) mg/dL Troponin I <0.012 (0.000-0.034) ng/mL 09/23/18 Range/Units 10:52 WBC (3.8-10.6) k/uL RBC (4.30-5.90) m/uL Hgb (13.0-17.5) gm/dL Hct (39.0-53.0) % MCV (80.0-100.0) fL MCH (25.0-35.0) pg MCHC (31.0-37.0) g/dL RDW (11.5-15.5) % Plt Count (150-450) k/uL Neutrophils % % Lymphocytes % % Monocytes % % Eosinophils % % Basophils % % Neutrophils # (1.3-7.7) k/uL Lymphocytes # (1.0-4.8) k/uL Monocytes # (0-1.0) k/uL Eosinophils # (0-0.7) k/uL Basophils # (0-0.2) k/uL PT 10.0 (9.0-12.0) sec INR 0.9 (<1.2) D-Dimer 0.83 H (<0.60) mg/L FEU Sodium (137-145) mmol/L Potassium (3.5-5.1) mmol/L Chloride (98-107) mmol/L Carbon Dioxide (22-30) mmol/L Anion Gap mmol/L BUN (9-20) mg/dL Creatinine (0.66-1.25) mg/dL Est GFR (CKD-EPI)AfAm (>60 ml/min/1.73 sqM) Est GFR (CKD-EPI)NonAf (>60 ml/min/1.73 sqM) Glucose (74-99) mg/dL Calcium (8.4-10.2) mg/dL Magnesium (1.6-2.3) mg/dL Troponin I (0.000-0.034) ng/mL Disposition Clinical Impression: COPD (chronic obstructive pulmonary disease) Disposition: ADMITTED IP TO THIS HOSP Condition: Good Referrals: Deborah Shah III, MD [Primary Care Provider] - 1-2 days Time of Disposition: 14:36 Decision Time: 14:36
[2018-09-23 11:09] LABS: Basophils % (A) 1 %; Eosinophils # (A) 0.2 k/uL (0-0.7); Eosinophils % (A) 3 %; HCT 43.8 % (39.0-53.0); HGB 14.5 gm/dL (13.0-17.5); Lymphocytes # (A) 0.9 k/uL (1.0-4.8); Lymphocytes % (A) 14 %; MCH 31.8 pg (25.0-35.0); MCV 96.5 fL (80.0-100.0); Mean Platelet Volume 6.2; Monocytes # (A) 0.5 k/uL (0-1.0); Monocytes % (A) 7 %; Neutrophils # (A) 5.2 k/uL (1.3-7.7); Neutrophils % (A) 75 %; Platelet Count 163 k/uL (150-450); RBC 4.54 m/uL (4.30-5.90); RDW 14.9 % (11.5-15.5); WBC 6.9 k/uL (3.8-10.6)
[2018-09-23 11:19] LABS: Anion Gap 8 mmol/L; Blood Urea Nitrogen 12 mg/dL (9-20); Calcium 9.1 mg/dL (8.4-10.2); Carbon Dioxide 26 mmol/L (22-30); Chloride 109 mmol/L (98-107); Glucose 106 mg/dL (74-99); Sodium 143 mmol/L (137-145)
[2018-09-23 11:30] LABS: INR 0.9 (<1.2)
[2018-09-23 11:31] LABS: Magnesium 1.9 mg/dL (1.6-2.3); Potassium 4.7 mmol/L (3.5-5.1)
--- NOTE | 2018-09-23 11:58 | XR ---
EXAMINATION TYPE: XR chest 1V portable DATE OF EXAM: 09/23/2018 COMPARISON: 08/11/2018 HISTORY: Shortness of breath and chest pain TECHNIQUE: Single frontal view of the chest is obtained. FINDINGS: New hazy bibasilar opacities are seen. There is no pulmonary vascular congestion, pleural effusion, or pneumothorax seen. The cardiac silhouette size is upper limits of normal size. The os seous structures are intact. IMPRESSION: New hazy bibasilar opacities in comparison to the prior of 08/11/2018 with slightly lower lung volumes. These are favored to represent atelectasis however developing multifocal pneumonia is a possibility.
[2018-09-23 12:52] LABS: D-Dimer 0.83 mg/L FEU (<0.60)
--- NOTE | 2018-09-23 13:29 | CT ---
EXAMINATION TYPE: CT angio chest DATE OF EXAM: 09/23/2018 COMPARISON: 04/24/2018 HISTORY: Shortness of breath, COPD, asthma CT DLP: 593.6 mGycm. Automated Exposure Control for Dose Reduction was Utilized. CONTRAST: CTA scan of the thorax is performed with IV Contrast, patient injected with 100 mL of Isovue 370, pul monary embolism protocol. MIP Images are created on CT scanner and reviewed. FINDINGS: LUNGS: There are new bibasilar consolidations. These appear linear and are favored to represent atele ctasis although early developing pneumonia is possible superimposed upon atelectasis.. There is no pleural effusion or pneumothorax seen. The tracheobronchial tree is patent. MEDIASTINUM: There is suboptimal enhancement of the pulmonary artery and its branches, however there is no CT evidence for central or segmental pulmonary embolism and no findings to suggest subsegmental pulmonary embolus. There are no greater than 1 cm hilar or mediastinal lymph nodes. Cardiomegaly is present with trace pericardial effusion and moderate coronary artery calcifications. Ascending thora cic aorta is within normal limits of size measuring 3.3 cm. OTHER: There is diffuse hypoattenuation of the hepatic parenchyma related to underlying hepatic steat osis. This limits evaluation for underlying hepatic masses. Mild multilevel degenerative changes of t he spine are seen. IMPRESSION: 1. Although the bolus timing is suboptimal and there is no central pulmonary embolus, no segmental pu lmonary embolus and no findings to suspect subsegmental pulmonary embolus. Additionally given appropr iate contrast within the thoracic aorta there is no evidence of thoracic aortic dissection. 2. New bibasilar opacities mostly enhancing again favored to represent atelectasis although early dev eloping superimposed pneumonia is a less likely consideration. 3. Moderate coronary artery calcifications, marker of coronary artery disease, and mild cardiomegaly. Trace pericardial effusion is also seen. 4. Hepatic steatosis.
[2018-09-23] MEDS ORDERED: AZITHROMYCIN 500 MG TAB PO STA (14:15)
[2018-09-23] MEDS ORDERED: MORPHINE SULFATE 2 MG/ML SYRINGE IVP PRN (14:20)
[2018-09-23] MEDS ORDERED: NALOXONE 0.4 MG/ML 1 ML VIAL IV PRN (14:34)
[2018-09-23] MEDS: IPRATROPIUM-ALBUTEROL 3 ML NEB INHALATION SCH ×2 (15:01→19:54)
[2018-09-23 17:11] VITALS: BMI 33.0
[2018-09-23] MEDS: INSULIN ASPART (NovoLOG) 100 UNIT/ML VIAL SQ SCH ×2 (17:38→21:39)
[2018-09-23] MEDS: hydrALAZINE HCL 25 MG TAB PO SCH ×2 (18:30→21:38)
[2018-09-23] MEDS: METOPROLOL TARTRATE 25 MG TAB PO SCH (18:32)
[2018-09-23] MEDS: ACETAMINOPHEN TAB 500 MG TAB PO PRN (18:32)
[2018-09-23] MEDS: methylPREDNISolone SOD SUCCI 125 MG/2 ML VIAL IV SCH ×2 (19:31→23:44)
[2018-09-23] MEDS: SYMBICORT 160-4.5 MCG INHALER INHALATION SCH (19:54)
[2018-09-23] MEDS: ALPRAZolam 0.25 MG TAB PO PRN (20:47)
[2018-09-23 20:53] LABS: Glucose,Whole Blood 183 mg/dL (75-99)
[2018-09-23] MEDS ORDERED: hydrALAZINE HCL 25 MG TAB PO SCH (21:00)
[2018-09-23] MEDS: HEPARIN SODIUM,PORCINE 5,000 UNIT/ML 1 ML VIAL SQ SCH (21:38)
[2018-09-23] MEDS: oxyCODONE-APAP 10-325MG 1 EACH TAB PO PRN (21:39)
[2018-09-23 22:02] LABS: Appearance,Urine Clear (Clear); Bilirubin,Urine Negative (Negative); Blood,Urine Negative (Negative); Color,Urine Yellow; Glucose,Urine (UA) 4+ (Negative); Ketones,Urine 1+ (Negative); Leukocyte Esterase,Urine Negative (Negative); Nitrite,Urine Negative (Negative); PH, Urine 5.5 (5.0-8.0); Protein,Urine Trace (Negative); Urobilinogen,Urine <2.0 mg/dL (<2.0)
[2018-09-23 22:05] LABS: Specific Gravity,Urine 1.046 (1.001-1.035)
[2018-09-23] MEDS ORDERED: IPRATROPIUM-ALBUTEROL 3 ML NEB INHALATION PRN (23:21)
[2018-09-24] MEDS: oxyCODONE-APAP 10-325MG 1 EACH TAB PO PRN ×4 (04:07→21:57)
--- NOTE | 2018-09-24 05:46 | HP ---
HISTORY AND PHYSICAL DATE OF SERVICE: 09/23/2018 CHIEF COMPLAINT: Shortness of breath. HISTORY OF PRESENT ILLNESS: This 62-year-old gentleman with a past medical history of multiple medical problems including history of asthma, atrial flutter, history of COPD, GERD, hypertension , DJD, history of sleep apnea, history of anxiety, bipolar depression, panic disorder, being followed by Dr. Shah. The patient is complaining of shortness of breath over the past several days. The patient had increasing cough and sputum and the symptoms are worsening over the last 1 week and the patient came to [facility] and was admitted for further evaluation and treatment. On admission, the patient had a D-dimer of 0.83 and a chest x-ray was done which showed new hazy bibasilar opacities and CT of the chest was also done to rule out the possibilities which was negative. Please review the full records for further details. Pneumonia suspected. Patient admitted for treatment. There is no history of fever, rigors. No headache, loss of consciousness, seizures. PAST MEDICAL HISTORY: History of atrial flutter, asthma, chest pain, COPD, GERD, hypertension, DJD, history of adenoidectomy, anxiety, bipolar, depression. MEDICATIONS: Prior to admission home medications are: 1. Flomax 0.4. 2. Singulair 10 mg. 3. Oxycodone 1 tablet q.i.d. p.r.n. 4. Zoloft 100 mg p.o. daily. 5. Eszopiclone 2 mg p.o. q.h.s. 6. Metoprolol 25 mg p.o. 8. Ventolin HFA 2 puffs q.4h p.r.n. ALLERGIES: PEANUTS, DUST. FAMILY HISTORY: History of asthma. SOCIAL HISTORY: History of THC. Previous history of smoking. REVIEW OF SYSTEMS: ENT: No diminished hearing or vision. CARDIOVASCULAR SYSTEM: No angina. RESPIRATORY: As mentioned earlier. GI:: No nausea. : No dysuria. NERVOUS SYSTEM: No numbness or weakness. ALLERGY/IMMUNOLOGY: As mentioned earlier. MUSCULOSKELETAL: As mentioned earlier. HEMATOLOGY: Negative. ENDOCRINE: No history of diabetes or hypothyroidism. CONSTITUTIONAL: As mentioned earlier. PSYCH: As mentioned earlier. PHYSICAL EXAMINATION: Alert oriented x3. Pulse is 71, blood pressure ( )/90, respirations 17, temperature 98.1, pulse ox 94% on room air HEENT: Conjunctivae normal. Oral mucosa moist. NECK: No jugular venous distention. CARDIOVASCULAR: S1, S2 muffled. RESPIRATORY: Diminished breath sounds at the bases. Bilateral scattered rhonchi and expiratory wheezing also present. ABDOMEN: Soft, nontender. No mass. LEGS: No edema. No swelling. NERVOUS SYSTEM: Higher function as mentioned. Moves all four limbs. LYMPHATICS: No lymphadenopathy of neck or axilla. SKIN: No rash. JOINTS: No active deformity. LABS: CBC within normal limits. D-dimer is 0.83. ASSESSMENT: 1. Chronic obstructive pulmonary disease, asthma acute exacerbation with possible bibasilar pneumonia, possibly gram-negative. 2. History of atrial flutter. 3. History of chest pain. 4. History of gastroesophageal reflux disease. 5. Hypertension. 6. History of degenerative joint disease. 7. History of pneumonia. 8. History of sleep apnea. 9. History of chronic neck and back pain. 10.History of anxiety, bipolar depression. 11.Chest pain, possible musculoskeletal skeletal pain. RECOMMENDATIONS AND DISCUSSION: In this 62-year-old gentleman who presented with multiple complex medical issues , will monitor the patient closely, continue the current management and symptomatic treatment. Will initiate broad-spectrum IV antibiotics. We will use Rocephin and Zithromax and repeat labs and intensive bronchodilator treatment. Also, a course of IV steroids. Cultures will be obtained. Dr. Granados is the patient's pulmonary physician and also will be consulted. Further recommendations to follow. MMODL / IJN: [id number] / MTDDwaine
[2018-09-24] MEDS: methylPREDNISolone SOD SUCCI 125 MG/2 ML VIAL IV SCH ×3 (06:17→17:52)
[2018-09-24] MEDS: ACETAMINOPHEN TAB 500 MG TAB PO PRN (06:18)
[2018-09-24 06:50] LABS: Glucose,Whole Blood 154 mg/dL (75-99)
[2018-09-24] MEDS: IPRATROPIUM-ALBUTEROL 3 ML NEB INHALATION SCH ×4 (07:27→23:19)
[2018-09-24] MEDS: SYMBICORT 160-4.5 MCG INHALER INHALATION SCH (07:27)
[2018-09-24 07:58] LABS: Basophils % (A) 0 %; Eosinophils % (A) 1 %; HCT 44.3 % (39.0-53.0); HGB 14.5 gm/dL (13.0-17.5); Lymphocytes # (A) 0.8 k/uL (1.0-4.8); Lymphocytes % (A) 9 %; MCH 31.9 pg (25.0-35.0); MCHC 32.6 g/dL (31.0-37.0); MCV 97.8 fL (80.0-100.0); Mean Platelet Volume 6.5; Monocytes # (A) 0.2 k/uL (0-1.0); Monocytes % (A) 3 %; Neutrophils # (A) 7.9 k/uL (1.3-7.7); Neutrophils % (A) 88 %; Platelet Count 177 k/uL (150-450); RBC 4.54 m/uL (4.30-5.90); RDW 14.9 % (11.5-15.5)
[2018-09-24 08:10] LABS: Anion Gap 11 mmol/L; Blood Urea Nitrogen 19 mg/dL (9-20); Calcium 9.6 mg/dL (8.4-10.2); Carbon Dioxide 26 mmol/L (22-30); Chloride 105 mmol/L (98-107); Glucose 138 mg/dL (74-99); Potassium 4.1 mmol/L (3.5-5.1); Sodium 142 mmol/L (137-145)
[2018-09-24] MEDS: INSULIN ASPART (NovoLOG) 100 UNIT/ML VIAL SQ SCH ×4 (08:44→21:22)
[2018-09-24] MEDS: HEPARIN SODIUM,PORCINE 5,000 UNIT/ML 1 ML VIAL SQ SCH ×3 (08:45→21:23)
[2018-09-24] MEDS: hydrALAZINE HCL 25 MG TAB PO SCH ×3 (08:45→21:23)
[2018-09-24] MEDS: METOPROLOL TARTRATE 25 MG TAB PO SCH ×2 (08:45→21:23)
[2018-09-24] MEDS: ALPRAZolam 0.25 MG TAB PO PRN (08:46)
[2018-09-24] MEDS: PANTOPRAZOLE 40 MG/10 ML VIAL IV SCH (08:46)
[2018-09-24] MEDS ORDERED: METOPROLOL TARTRATE 25 MG TAB PO SCH (09:00)
[2018-09-24] MEDS ORDERED: predniSONE 20 MG TAB PO SCH (09:00)
[2018-09-24] MEDS: AZITHROMYCIN 500 MG TAB PO SCH (10:12)
[2018-09-24 11:16] LABS: Glucose,Whole Blood 111 mg/dL (75-99)
--- NOTE | 2018-09-24 12:32 | CONS ---
CONSULTATION Milo Stack is a 62-year-old male who presented to the ER with a 3 to 4 day history of worsening shortness of breath with associated wheezing and neck tightness. He also had been complaining of chest pain and subsequently was admitted for further evaluation and management. PAST MEDICAL HISTORY: Positive for severe asthma, COPD. History of chronic pain, obstructive sleep apnea for which he is on CPAP, history of uvulectomy, bowel resection for large polyps, history of bronchoscopy with lung biopsy. FAMILY HISTORY: Positive for asthma in his mother. CVA and TIA in his father. MEDICATIONS: Prior to admission were Percocet which he receives from Dr. George rTammell, tamsulosin, montelukast, Zoloft, Eszopiclone, metoprolol tartrate, Apresoline, Ventolin HFA. REVIEW OF SYSTEMS: Noncontributory. PHYSICAL EXAMINATION: Respiratory rate is 26, pulse rate of 62, blood pressure 175/89, O2 SAT on room air is 91%, temperature 98 degrees Fahrenheit. HEENT reveals pupils that are equal. There is redundant tissue in the posterior pharynx. Chest with decreased breath sounds. Prolonged expiration. Bilateral expiratory wheeze. Cardiovascular system is S1, S2. Abdomen is soft. There is trace pedal edema. White count is 9, hemoglobin 14.5, sodium 142, potassium 4.1, chloride 105, bicarb 26, BUN 19, creatinine 0.79. Chest CT scan was done, which showed basilar consolidative changes with atelectasis versus pneumonia. There was evidence of hepatic steatosis. IMPRESSION: 1. Severe asthma with chronic obstructive pulmonary disease with acute exacerbation. 2. Obesity. 3. Obstructive sleep apnea. Keep him on IV and aerosolized steroids, GI and DVT prophylaxis. Continue him on antibiotics. Will follow him closely during his hospital stay and appreciate the opportunity to participate in his care. MMODL / IJN: [id number] /
[2018-09-24] MEDS ORDERED: LORazepam 2 MG/ML INJ IV PRN (15:09)
--- NOTE | 2018-09-24 16:14 | PN ---
PROGRESS NOTE DATE OF SERVICE: 09/24/2018 This 62-year-old gentleman who was admitted with COPD exacerbation with possible bibasilar pneumonia is being closely monitored. No chest pain. No palpitations. No fever. The patient complains of neck pain. EXAM: Alert and oriented x3. Blood pressure 142/98, respirations 16, temperature 97.9, pulse ox 97% on room air. HEENT: Conjunctivae normal. Oral mucosa moist. NECK: No jugular venous distention. No lymph node enlargement. CARDIOVASCULAR: S1, S2. RESPIRATORY: Diminished breath sounds at the bases. Bilateral scattered rhonchi and crackles. Expiratory wheezing also present. ABDOMEN: Soft, nontender. LEGS: No swelling. NERVOUS SYSTEM: No focal deficits. LABS: WBC 9, hemoglobin 14.5, glucose 138. Influenza is negative. ASSESSMENT: 1. Chronic obstructive pulmonary disease acute exacerbation with possible bibasilar pneumonia, possibly gram-negative. 2. History of atrial flutter. 3. Chest pain and neck pain, possibly musculoskeletal. 4. History of gastroesophageal reflux disease. 5. Hypertension. 6. History of degenerative joint disease. 7. History of chronic pain syndrome. 8. History of pneumonia. 9. Sleep apnea. 10.History of anxiety, bipolar depression. 11.FULL CODE. RECOMMENDATIONS AND DISCUSSION: I recommend to continue current management, continue symptomatic treatment, continue with antibiotics, continue bronchodilators, continue steroids, continue the rest of medications, symptomatic treatment, DVT prophylaxis. Prognosis guarded because of multiple complex medical issues. Further recommendations to follow. Pulmonary input appreciated. BETH / AQUILINON: [id number] /
[2018-09-24] MEDS: HYDROmorphone 0.5 MG/0.5 ML SYRINGE IVP PRN (16:40)
[2018-09-24 16:59] LABS: Glucose,Whole Blood 119 mg/dL (75-99)
[2018-09-24 20:49] LABS: Glucose,Whole Blood 168 mg/dL (75-99)
[2018-09-24] MEDS: MONTELUKAST 10 MG TAB PO SCH (21:23)
[2018-09-24] MEDS: FAMOTIDINE 20 MG TAB PO SCH (21:23)
[2018-09-24] MEDS: BUDESONIDE 0.5 MG/2 ML NEBU INHALATION SCH (23:19)
[2018-09-25] MEDS: methylPREDNISolone SOD SUCCI 125 MG/2 ML VIAL IV SCH ×4 (00:02→16:41)
[2018-09-25] MEDS: HYDROmorphone 0.5 MG/0.5 ML SYRINGE IVP PRN ×3 (00:53→16:41)
[2018-09-25] MEDS: oxyCODONE-APAP 10-325MG 1 EACH TAB PO PRN ×3 (04:17→18:46)
[2018-09-25] MEDS: IPRATROPIUM-ALBUTEROL 3 ML NEB INHALATION SCH ×4 (07:20→20:02)
[2018-09-25] MEDS: BUDESONIDE 0.5 MG/2 ML NEBU INHALATION SCH ×2 (07:20→20:02)
[2018-09-25 07:26] LABS: Basophils % (A) 0 %; Eosinophils # (A) 0.2 k/uL (0-0.7); Eosinophils % (A) 1 %; HGB 14.3 gm/dL (13.0-17.5); Lymphocytes # (A) 0.8 k/uL (1.0-4.8); Lymphocytes % (A) 7 %; MCH 32.4 pg (25.0-35.0); MCHC 33.1 g/dL (31.0-37.0); MCV 97.7 fL (80.0-100.0); Mean Platelet Volume 6.7; Monocytes # (A) 0.3 k/uL (0-1.0); Monocytes % (A) 3 %; Neutrophils # (A) 11.1 k/uL (1.3-7.7); Neutrophils % (A) 89 %; Platelet Count 175 k/uL (150-450); WBC 12.6 k/uL (3.8-10.6)
[2018-09-25 07:29] LABS: Glucose,Whole Blood 127 mg/dL (75-99)
[2018-09-25 07:37] LABS: Anion Gap 8 mmol/L; Blood Urea Nitrogen 29 mg/dL (9-20); Calcium 9.4 mg/dL (8.4-10.2); Carbon Dioxide 28 mmol/L (22-30); Chloride 105 mmol/L (98-107); Glucose 128 mg/dL (74-99); Potassium 4.5 mmol/L (3.5-5.1); Sodium 141 mmol/L (137-145)
[2018-09-25] MEDS: INSULIN ASPART (NovoLOG) 100 UNIT/ML VIAL SQ SCH ×4 (07:37→20:55)
[2018-09-25] MEDS: hydrALAZINE HCL 25 MG TAB PO SCH ×3 (08:37→20:56)
[2018-09-25] MEDS: FAMOTIDINE 20 MG TAB PO SCH ×2 (08:37→20:56)
[2018-09-25] MEDS: AZITHROMYCIN 500 MG TAB PO SCH (08:37)
[2018-09-25] MEDS: HEPARIN SODIUM,PORCINE 5,000 UNIT/ML 1 ML VIAL SQ SCH ×4 (08:37→20:57)
[2018-09-25] MEDS: METOPROLOL TARTRATE 25 MG TAB PO SCH ×2 (08:37→20:56)
[2018-09-25] MEDS: PANTOPRAZOLE 40 MG/10 ML VIAL IV SCH (08:38)
[2018-09-25 11:11] LABS: Glucose,Whole Blood 168 mg/dL (75-99)
[2018-09-25 16:58] LABS: Glucose,Whole Blood 133 mg/dL (75-99)
--- NOTE | 2018-09-25 18:40 | PN ---
PROGRESS NOTE DATE OF SERVICE: 09/25/2018 This 62-year-old gentleman admitted with COPD exacerbation and multiple medical problems. The patient is being closely monitored. Patient has IV steroids and antibiotics. Patient also complained of diffuse aches and pains also. No chest pain. No palpitations. No fever. The patient is on Solu-Medrol 60 IV q.6 today. EXAM: Alert and oriented x3, pulse is 57, blood pressure 150/84, respirations 16, temperature 97.4, pulse ox 94% on room air. HEENT: Conjunctivae normal. Oral mucosa moist. NECK: No jugular venous distention. No lymph node enlargement. CARDIOVASCULAR: S1, S2. RESPIRATORY: Diminished breath sounds at the bases. Bilateral scattered rhonchi and crackles. Expiratory wheezing also present. ABDOMEN: Slightly better. LEGS: No swelling. NERVOUS SYSTEM: No focal deficits. LAB STUDIES: WBC 12.8, hemoglobin is 14.3. ASSESSMENT: 1. Chronic obstructive pulmonary disease exacerbation with possible bibasilar pneumonia, possibly gram-negative, present on admission. 2. History atrial flutter. 3. Chest pain and neck pain, possibly musculoskeletal. 4. History of degenerative joint disease. 5. Hypertension. 6. History of chronic pain syndrome. 7. History of pneumonia. 8. History of sleep apnea. 9. History of anxiety, bipolar depression. 10.FULL CODE. RECOMMENDATIONS AND DISCUSSION: Recommend to continue current management and symptomatic treatment. At this time, will monitor the patient closely. Continue with bronchodilators. Continue with steroids. Taper the steroids. Closely follow with pulmonary. Further recommendations to follow. MMODL / IJN: [id number] /
[2018-09-25] MEDS: ACETAMINOPHEN TAB 500 MG TAB PO PRN (18:45)
[2018-09-25 20:10] LABS: Glucose,Whole Blood 132 mg/dL (75-99)
[2018-09-25] MEDS: ALPRAZolam 0.25 MG TAB PO PRN (20:55)
[2018-09-25] MEDS: methylPREDNISolone SOD SUCCI 40 MG/ML 1 ML VIAL IV SCH (20:55)
[2018-09-25] MEDS: MONTELUKAST 10 MG TAB PO SCH (20:56)
--- NOTE | 2018-09-25 21:05 | PN ---
PROGRESS NOTE He was seen again on 09/25/2018. He is hemodynamically stable. He has less shortness of breath, but continues to have back pain and neck spasm. On physical examination vitals are stable. He is afebrile. His chest reveals prolonged expiration with expiratory stridorous sounds which may be voluntary. He has prolonged exhalation. Cardiovascular system reveals an S1, S2. Abdomen is soft. There is no pedal edema. White count is 12.6, hemoglobin of 14.3. IMPRESSION: At this time: 1. Asthma with chronic obstructive pulmonary disease with acute exacerbation. 2. Chronic pain. 3. Stridor which may be due to vocal cord dysfunction versus malingering. Would continue IV steroids, bronchodilators and his current medications which were reviewed. Increase his activity level. MMMEGAL / AQUILINON: [id number] /
[2018-09-25 21:54] VITALS: RESP 18
[2018-09-26] MEDS: oxyCODONE-APAP 10-325MG 1 EACH TAB PO PRN ×3 (00:07→12:19)
[2018-09-26] MEDS: HYDROmorphone 0.5 MG/0.5 ML SYRINGE IVP PRN ×2 (01:24→09:23)
[2018-09-26 05:46] VITALS: BP 169/100; TEMP 97.7
[2018-09-26 07:06] LABS: Glucose,Whole Blood 117 mg/dL (75-99)
[2018-09-26] MEDS: methylPREDNISolone SOD SUCCI 40 MG/ML 1 ML VIAL IV SCH (08:02)
[2018-09-26] MEDS: INSULIN ASPART (NovoLOG) 100 UNIT/ML VIAL SQ SCH ×2 (08:02→11:39)
[2018-09-26] MEDS: AZITHROMYCIN 500 MG TAB PO SCH (08:02)
[2018-09-26] MEDS: hydrALAZINE HCL 25 MG TAB PO SCH (08:03)
[2018-09-26] MEDS: FAMOTIDINE 20 MG TAB PO SCH (08:03)
[2018-09-26] MEDS: HEPARIN SODIUM,PORCINE 5,000 UNIT/ML 1 ML VIAL SQ SCH ×2 (08:03)
[2018-09-26] MEDS: METOPROLOL TARTRATE 25 MG TAB PO SCH (08:03)
[2018-09-26] MEDS: PANTOPRAZOLE 40 MG/10 ML VIAL IV SCH (08:04)
[2018-09-26] MEDS: BUDESONIDE 0.5 MG/2 ML NEBU INHALATION SCH (08:34)
[2018-09-26] MEDS: IPRATROPIUM-ALBUTEROL 3 ML NEB INHALATION SCH ×2 (08:34→11:54)
[2018-09-26 08:54] VITALS: PULSE 60
[2018-09-26 09:44] LABS: Basophils % (A) 0 %; Eosinophils % (A) 0 %; HCT 41.6 % (39.0-53.0); HGB 13.5 gm/dL (13.0-17.5); Lymphocytes # (A) 0.6 k/uL (1.0-4.8); Lymphocytes % (A) 6 %; MCH 32.1 pg (25.0-35.0); MCHC 32.6 g/dL (31.0-37.0); MCV 98.6 fL (80.0-100.0); Macrocytosis Slight; Mean Platelet Volume 7.3; Monocytes # (A) 0.4 k/uL (0-1.0); Monocytes % (A) 3 %; Neutrophils # (A) 10.4 k/uL (1.3-7.7); Neutrophils % (A) 91 %; Platelet Count 159 k/uL (150-450); RBC 4.22 m/uL (4.30-5.90); WBC 11.5 k/uL (3.8-10.6)
[2018-09-26 09:59] LABS: Anion Gap 9 mmol/L; Blood Urea Nitrogen 33 mg/dL (9-20); Calcium 8.8 mg/dL (8.4-10.2); Carbon Dioxide 27 mmol/L (22-30); Chloride 104 mmol/L (98-107); Glucose 153 mg/dL (74-99); Sodium 140 mmol/L (137-145)
[2018-09-26 11:25] LABS: Glucose,Whole Blood 130 mg/dL (75-99)
--- NOTE | 2018-09-27 09:09 | DS ---
DISCHARGE SUMMARY DATE OF SERVICE: 09/26/2018 FINAL DIAGNOSES: 1. Chronic obstructive pulmonary disease acute exacerbation with possible bibasilar pneumonia possibly gram-negative present on admission. 2. History of atrial flutter. 3. Chest pain, neck pain possibly musculoskeletal. 4. History of degenerative joint disease. 5. Hypertension. 6. History of chronic pain syndrome. 7. History of pneumonia. 8. History of sleep apnea. 9. History of anxiety, bipolar depression. 10.FULL CODE. DISCHARGE DISPOSITION: The patient will be discharged in stable condition with guarded prognosis. HISTORY OF PRESENT ILLNESS: This 62-year-old gentleman with a past medical history of COPD, acute exacerbation was admitted with exacerbation as well as acute purulent tracheobronchitis. Patient treated with bronchodilators, steroids. Pulmonary saw the patient and the patient improved significantly. Patient was discharged in stable condition with guarded prognosis. DISCHARGE ADVICE AND MEDICATIONS: 1. Diet is cardiac diet. 2. Activity limited until followup. 3. Follow up with Dr. Shah in 2 to 3 days. 4. Follow up with Pulmonary as advised. Medications are as follows: 1. Albuterol p.r.n. 2. Eszopiclone 2 mg p.o. q.h.s. 3. Metoprolol 25 mg p.o. daily. 4. Singulair 10 mg p.o. daily. 5. Oxycodone 10 mg q.i.d. p.r.n. 6. Zoloft 100 mg p.o. daily. 7. Flomax 0.4 daily. 8. Tylenol 500 mg q.6 p.r.n. 9. Zithromax 500 mg daily for 5 days. 10.Symbicort 160/4.5 one puffs b.i.d. 11.Ceftin 500 mg b.i.d. for 3 days. 12.Apresoline 25 mg b.i.d. 13.DuoNeb q.i.d. and p.r.n. 14.Prednisone 40 mg daily for 3 days, 30 for 3 days, 20 for 3 days, 10 for 3 days. Follow up with Dr. Shah as advised. Follow up with Pulmonary, as advised. Once again, the patient will be discharged in a stable condition with guarded prognosis. MMODL / IJN: [id number] / [facility]
== END 2018-09-26 13:05 | disposition home or self-care (01) ==
LOC: EC 09:57 → 3NMEDONC 14:34
PROVIDERS: ADMIT Internal Medicine; ATTEND Internal Medicine
DX: J44.1 Chronic obstructive pulmonary disease with (acute) exacerbation (principal); J44.0 Chronic obstructive pulmonary disease with (acute) lower respiratory infection; J20.9 Acute bronchitis, unspecified; H10.9 Unspecified conjunctivitis; H04.201 Unspecified epiphora, right side; H05.229 Edema of unspecified orbit; I10 Essential (primary) hypertension; I48.92 Unspecified atrial flutter; K21.9 Gastro-esophageal reflux disease without esophagitis; G47.33 Obstructive sleep apnea (adult) (pediatric); M19.90 Unspecified osteoarthritis, unspecified site; F41.0 Panic disorder [episodic paroxysmal anxiety]; F31.30 Bipolar disorder, current episode depressed, mild or moderate severity, unspecified; F41.9 Anxiety disorder, unspecified; I45.10 Unspecified right bundle-branch block; G89.4 Chronic pain syndrome; M62.838 Other muscle spasm; M54.2 Cervicalgia; M54.9 Dorsalgia, unspecified; G25.81 Restless legs syndrome; F40.240 Claustrophobia; E66.9 Obesity, unspecified; Z68.33 Body mass index [BMI] 33.0-33.9, adult; K76.0 Fatty (change of) liver, not elsewhere classified; Z79.899 Other long term (current) drug therapy; Z91.010 Allergy to peanuts; Z91.048 Other nonmedicinal substance allergy status; Z87.01 Personal history of pneumonia (recurrent); Z86.19 Personal history of other infectious and parasitic diseases; Z99.89 Dependence on other enabling machines and devices; Z90.49 Acquired absence of other specified parts of digestive tract; Z86.010 Personal history of colon polyps; Z87.891 Personal history of nicotine dependence; Z82.3 Family history of stroke; Z82.5 Family history of asthma and other chronic lower respiratory diseases
CPT/HCPCS: 96376 ×4; 96365; 96366; 96372 ×4; 96375 ×3; 99285; 36415; 94640 ×7; 93005; 85379; 80048 ×4; 83735; 84484; 85025 ×4; 85610; 81003; 87502; 71045; 71275; G0378 ×4; J8540; J1644 ×4; J2920 ×2; J2930 ×3; J0696 ×3; J2270; C9113 ×3; J1170 ×3; Q9967

== ENCOUNTER 2018-09-30 23:24 | Emergency (ER) | payer MEDICARE ==
[2018-09-30] MEDS ORDERED: IPRATROPIUM-ALBUTEROL 3 ML NEB INHALATION STA (23:38)
--- NOTE | 2018-09-30 23:58 | ED ---
SOB HPI - General Chief Complaint: Shortness of Breath Stated Complaint: GREGG/Neck Pain Time Seen by Provider: 09/30/18 23:37 Source: patient Mode of arrival: ambulatory Limitations: no limitations - History of Present Illness Initial Comments: This patient is 62-year-old man with a history of COPD who presents to be evaluated for increased wheezing tonight. Patient also states that he's been sitting up in a chair a lot and believes he strained his neck. Patient stated that he had not been able take his home Percocet before coming in and requested a dose of that. Patient has not noted a change in his sputum. He has not had fever or chills. No chest pain or palpitations. No leg swelling or pain. MD Complaint: shortness of breath, cough -: hour(s) Consistency: constant Improves With: nothing Worsens With: nothing Known History Of: COPD Associated Symptoms: denies other symptoms - Related Data Home Medications Medication Instructions Recorded Confirmed Montelukast [Singulair] 10 mg PO DAILY 03/16/14 09/23/18 Albuterol Inhaler [Ventolin Hfa 2 puff INHALATION RT-Q4H PRN 05/28/17 09/23/18 Inhaler] Tamsulosin HCl [Flomax] 0.4 mg PO DAILY 02/22/18 09/23/18 Metoprolol Tartrate 25 mg PO DAILY 04/24/18 09/23/18 Eszopiclone 2 mg PO HS 09/23/18 09/23/18 Sertraline [Zoloft] 100 mg PO DAILY 09/23/18 09/23/18 oxyCODONE-APAP 10-325MG [Percocet 1 tab PO QID PRN 09/23/18 09/23/18 10-325 mg] Previous Rx's Medication Instructions Recorded hydrALAZINE HCL [Apresoline] 25 mg PO BID #60 tab 11/20/17 Acetaminophen Tab [Tylenol] 500 mg PO Q6HR PRN tab 09/26/18 Azithromycin [Zithromax] 500 mg PO DAILY #5 tab 09/26/18 Budesonide/Formoterol Fumarate 1 puff IH BID #1 hfa.aer.ad 09/26/18 [Symbicort 160-4.5 Mcg Inhaler] Cefuroxime Axetil [Ceftin] 500 mg PO BID 3 Days #6 tab 09/26/18 Ipratropium-Albuterol Nebulize 3 ml INHALATION RT-QID #120 09/26/18 [Duoneb 0.5 mg-3 mg/3 ml Soln] ampul.neb predniSONE 10 mg PO DIRECTED #30 tab 09/26/18 Allergies Allergy/AdvReac Type Severity Reaction Status Date / Time peanut Allergy alg testing Verified 09/30/18 23:29 pollen extracts Allergy Unknown Verified 09/30/18 23:29 DUST Allergy alg testing Uncoded 09/30/18 23:29 Review of Systems ROS Statement: Those systems with pertinent positive or pertinent negative responses have been documented in the HPI. ROS Other: All systems not noted in ROS Statement are negative. Constitutional: Denies: fever, chills Respiratory: Reports: as per HPI, cough, dyspnea, wheezes Cardiovascular: Denies: chest pain, palpitations, edema, syncope Gastrointestinal: Denies: abdominal pain, nausea, vomiting Genitourinary: Denies: dysuria Musculoskeletal: Reports: as per HPI, back pain Skin: Denies: rash, lesions Neurological: Denies: headache, weakness, numbness Past Medical History Past Medical History: Atrial Flutter, Asthma, Chest Pain / Angina, COPD, GERD/ Reflux, Hypertension, Osteoarthritis (OA), Pneumonia, Sleep Apnea/CPAP/BIPAP Additional Past Medical History / Comment(s): Chronic neck and back pain-sees Dr. Trammell, CELE without device, RLS, shingles. Shingles 2017. History of Any Multi-Drug Resistant Organisms: None Reported Past Surgical History: Adenoidectomy, Bowel Resection, Cholecystectomy Additional Past Surgical History / Comment(s): Uvulectomy, bowel resection for large polyps, colonoscopy with polypectomies, nasal surgery x 2, bronchoscopy with lung bx, pain clinic procedures., Past Anesthesia/Blood Transfusion Reactions: Previous Problems w/ Anesthesia, Motion Sickness Additional Past Anesthesia/Blood Transfusion Reaction / Comment(s): states "during procedure of checking something on my left lung,I turned blue and I was brought right back out anesthesia and proc was cancelled". clausterphobia Past Psychological History: Anxiety, Bipolar, Depression, Panic Disorder Smoking Status: Former smoker Past Drug Use History: Marijuana - Past Family History Mother Family Medical History: Asthma Additional Family Medical History / Comment(s): at age 62 Father Family Medical History: CVA/TIA Additional Family Medical History / Comment(s): at age 90 General Exam Limitations: no limitations General appearance: alert, in no apparent distress Head exam: Present: atraumatic, normocephalic Eye exam: Present: normal appearance. Absent: scleral icterus, conjunctival injection Neck exam: Present: normal inspection, full ROM. Absent: tenderness Respiratory exam: Present: wheezes. Absent: normal lung sounds bilaterally, respiratory distress, rales, rhonchi, stridor, accessory muscle use, decreased breath sounds, prolonged expiratory Cardiovascular Exam: Present: regular rate, normal rhythm, normal heart sounds. Absent: systolic murmur, diastolic murmur, rubs, gallop GI/Abdominal exam: Present: soft. Absent: distended, tenderness, guarding, rebound, mass Extremities exam: Present: normal inspection, normal capillary refill. Absent: pedal edema, calf tenderness Back exam: Present: normal inspection. Absent: CVA tenderness (R), CVA tenderness (L) Neurological exam: Present: alert Skin exam: Present: warm, dry, intact, normal color. Absent: rash Course Vital Signs 09/30/18 09/30/18 09/30/18 23:27 23:40 23:50 Temperature 98.2 F Pulse Rate 82 77 Respiratory 16 13 Rate Blood Pressure 197/96 172/98 O2 Sat by Pulse 95 93 L 93 L Oximetry 10/01/18 10/01/18 10/01/18 00:00 00:10 00:20 Temperature Pulse Rate 79 74 75 Respiratory 20 19 16 Rate Blood Pressure 172/98 174/98 166/94 O2 Sat by Pulse 94 L 95 98 Oximetry 10/01/18 10/01/18 10/01/18 00:22 00:30 00:40 Temperature Pulse Rate 73 73 84 Respiratory 19 21 17 Rate Blood Pressure 166/94 166/94 167/88 O2 Sat by Pulse 98 95 95 Oximetry 10/01/18 10/01/18 00:50 01:25 Temperature 98 F Pulse Rate 76 73 Respiratory 21 18 Rate Blood Pressure 162/82 180/95 O2 Sat by Pulse 94 L 98 Oximetry Medical Decision Making - EKG Data -: EKG Interpreted by [facility] EKG shows normal: sinus rhythm, axis (Normal), intervals (WA interval is 134 ms , QTC is 494 ms, both normal. The QRS duration is 138 ms, prolonged consistent with the right bundle branch block.), QRS complexes (There is a right bundle branch block.), ST-T waves (Normal) When compared to previous EKG there are: no significant change Disposition Clinical Impression: COPD (chronic obstructive pulmonary disease) Disposition: HOME SELF-CARE Condition: Good Instructions (If sedation given, give patient instructions): Chronic Bronchitis (ED) Is patient prescribed a controlled substance at d/c from ED?: No Referrals: Deborah Shah III, MD [Primary Care Provider] - 1-2 days
[2018-10-01] MEDS ORDERED: oxyCODONE-APAP 10-325MG 1 EACH TAB PO STA (00:07)
--- NOTE | 2018-10-01 00:32 | XR ---
EXAM: XR Chest, 2 Views CLINICAL HISTORY: ITS.REASON XR Reason: cough TECHNIQUE: Frontal and lateral views of the chest. COMPARISON: No relevant prior studies available. FINDINGS: Lungs: Unremarkable. No consolidation. Pleural space: Unremarkable. No pneumothorax. Heart: Unremarkable. No cardiomegaly. Mediastinum: Unremarkable. Bones/joints: No acute fracture. IMPRESSION: No acute findings.
[2018-10-01 01:26] VITALS: BP 180/95; PULSE 73; RESP 18; TEMP 98
== END 2018-10-01 01:26 | disposition home or self-care (01) ==
LOC: EC 23:24
DX: J44.9 Chronic obstructive pulmonary disease, unspecified (principal); I10 Essential (primary) hypertension; G47.30 Sleep apnea, unspecified; F31.9 Bipolar disorder, unspecified; F41.0 Panic disorder [episodic paroxysmal anxiety]; Z79.899 Other long term (current) drug therapy; Z91.010 Allergy to peanuts; Z91.018 Allergy to other foods; Z91.09 Other allergy status, other than to drugs and biological substances; Z87.891 Personal history of nicotine dependence
CPT/HCPCS: 71046; 99285

== ENCOUNTER 2018-11-04 11:55 | Emergency (ER) | payer MEDICARE ==
[2018-11-04 12:01] VITALS: TEMP 97.4
[2018-11-04] MEDS ORDERED: IPRATROPIUM-ALBUTEROL 3 ML NEB INHALATION STA (12:21)
[2018-11-04] MEDS ORDERED: predniSONE 50 MG TAB PO STA (12:22)
[2018-11-04] MEDS ORDERED: SODIUM CHLORIDE 0.9% 1,000 ML IV STA (12:30)
[2018-11-04 12:31] VITALS: RESP 18
--- NOTE | 2018-11-04 12:33 | ED ---
General Adult HPI - General Chief complaint: Abdominal Pain Stated complaint: Cannot Urinate Time Seen by Provider: 11/04/18 12:03 Source: patient, RN notes reviewed, old records reviewed Mode of arrival: ambulatory Limitations: no limitations - History of Present Illness Initial comments: 62-year-old male patient with past history of BPH, asthma, COPD presents to ED with 2 complaints. Patient reports that he has not been able to urinate since last night. Patient also reports some burning around his urethral area. Patient does have a history of benign prostatic hypertrophy. Patient does have a urology appointment scheduled approximate 10 days for this problem. Patient has a secondary complaint of some wheezing from his COPD. Patient states that this feels similar to his COPD at the past. Patient denies any other complaints. Systemic: Pt denies fatigue, myalgia, fever/chills, rash. Pt denies weakness, night sweats, weight loss. Neuro: Pt denies headache, visual disturbances, syncope or pre-syncope. HEENT: Pt denies ocular discharge or irritation, otalgia, rhinorrhea, pharyngitis or notable lymphadenopathy. Cardiopulmonary: Pt denies chest pain, heart palpitations, dyspnea on exertion. Abdominal/GI: Pt denies abdominal pain, n/v/d. : Pt denies dysuria, burning w/ urination, frequency/urgency. Denies new onset urinary or bowel incontinence. MSK: Pt denies myalgia, loss of strength or function in extremities. Neuro: Pt denies new onset weakness, paresthesias. - Related Data Home Medications Medication Instructions Recorded Confirmed Ipratropium-Albuterol Nebulize 3 ml INHALATION RT-Q6H PRN 11/04/18 11/04/18 [Duoneb 0.5 mg-3 mg/3 ml Soln] Sertraline [Zoloft] 100 mg PO DAILY 11/04/18 11/04/18 Tiotropium [place] [Spiriva] 1 cap INHALATION RT-BID 11/04/18 11/04/18 chlordiazePOXIDE HCL 25 mg PO TID 11/04/18 11/04/18 hydrALAZINE HCL [Apresoline] 25 mg PO BID 11/04/18 11/04/18 oxyCODONE-APAP 10-325MG [Percocet 1 tab PO QID PRN 11/04/18 11/04/18 10-325 mg] Previous Rx's Medication Instructions Recorded Phenazopyridine [Pyridium] 100 mg PO TID 3 Days day 11/04/18 Sulfamethox-Tmp 800-160Mg [Bactrim 1 tab PO Q12HR #20 tab 11/04/18 DS 800-160 mg] Tamsulosin [Flomax] 0.4 mg PO DAILY #10 cap 11/04/18 Allergies Allergy/AdvReac Type Severity Reaction Status Date / Time peanut Allergy Unknown Verified 11/04/18 14:12 Review of Systems ROS Statement: Those systems with pertinent positive or pertinent negative responses have been documented in the HPI. ROS Other: All systems not noted in ROS Statement are negative. Past Medical History Past Medical History: Asthma, COPD, Sleep Apnea/CPAP/BIPAP Additional Past Medical History / Comment(s): Back problems History of Any Multi-Drug Resistant Organisms: None Reported Past Surgical History: Bowel Resection Additional Past Surgical History / Comment(s): Nasal Past Psychological History: Anxiety, Depression Smoking Status: Current every day smoker Past Alcohol Use History: None Reported Past Drug Use History: Marijuana General Exam - General Exam Comments Initial Comments: Constitutional: NAD, AOX3, Pt has pleasant affect. HEENT: NC/AT, trachea midline, neck supple, no lymphadenopathy. Posterior pharynx non erythematous, without exudates. External ears appear normal, without discharge. Mucous membranes moist. Eyes PERRLA, EOM intact. There is no scleral icterus. No pallor noted. Cardiopulmonary: RRR, no murmurs, rubs or gallops, no JVD noted. Lungs mild wheezing noted in anterior lung pedroza.. No peripheral edema. Abdominal exam: Abdomen soft and non-distended. Abdomen non-tender to palpation in all 4 quadrants. Bowel sounds active in LLQ. No hepatosplenomegaly. No ecchymosis Neuro: CN II-XII grossly intact. No nuchal rigidity. MSK: No posterior calf tenderness bilaterally, homans sign negative bilaterally. Posterior tibialis and radial pulse +2 bilaterally. Sensation intact in upper and lower extremities. Full active ROM in upper and lower extremities, 5/5 stregnth. : uretheral without discharge, no testicular tenerness, no high riding testicle. Creamesteric reflex intact. Limitations: no limitations Course Vital Signs 11/04/18 11/04/18 11/04/18 11:58 12:27 12:35 Temperature 97.4 F L Pulse Rate 93 74 77 Respiratory 20 18 18 Rate Blood Pressure 158/98 O2 Sat by Pulse 99 Oximetry Medical Decision Making - Medical Decision Making 62-year-old male patient with past history of BPH, asthma, COPD presents to ED with 2 complaints. Patient reports that he has not been able to urinate since last night. Patient also reports some burning around his urethral area. Patient does have a history of benign prostatic hypertrophy. Patient does have a urology appointment scheduled approximate 10 days for this problem. Patient has a secondary complaint of some wheezing from his COPD. Patient states that this feels similar to his COPD at the past. Patient denies any other complaints. Patient vital signs stable, afebrile. Physical exm displayed: uretheral without discharge, no testicular tenerness, no high riding testicle. Creamesteric reflex intact. No other pathologic findings. Bladder scan revealed approximately 100 mL an bladder. Patient is unable to spontaneously void. Straight catheter was performed. UA revealed greater than 182 red blood cells, 12 white blood cells small leukoesterase. CBC, CMP non-impressive. Patient was discharged with Bactrim for potential UTI. Patient will also be discharged with Flomax and Pyridium. Patient will call urologist tomorrow for follow-up. The patient unable to void patient will return to ER for catheter asthma. Patient will return here if patient worsens in anyway. Patient does not have any concern for sexually transmitted infection, states she is not sexually active. Case discussed with Dr. Reynoso. - Lab Data Result diagrams: 11/04/18 13:15 11/04/18 13:15 Lab Results 11/04/18 11/04/18 11/04/18 Range/Units 13:15 13:15 13:15 WBC 11.6 H (3.8-10.6) k/uL RBC 5.15 (4.30-5.90) m/uL Hgb 16.1 (13.0-17.5) gm/dL Hct 45.9 (39.0-53.0) % MCV 89.3 (80.0-100.0) fL MCH 31.3 (25.0-35.0) pg MCHC 35.1 (31.0-37.0) g/dL RDW 15.1 (11.5-15.5) % Plt Count 206 (150-450) k/uL Neutrophils % 74 % Lymphocytes % 15 % Monocytes % 7 % Eosinophils % 2 % Basophils % 1 % Neutrophils # 8.7 H (1.3-7.7) k/uL Lymphocytes # 1.8 (1.0-4.8) k/uL Monocytes # 0.8 (0-1.0) k/uL Eosinophils # 0.2 (0-0.7) k/uL Basophils # 0.1 (0-0.2) k/uL Sodium 140 (137-145) mmol/L Potassium 3.4 L (3.5-5.1) mmol/L Chloride 105 (98-107) mmol/L Carbon Dioxide 26 (22-30) mmol/L Anion Gap 9 mmol/L BUN 16 (9-20) mg/dL Creatinine 1.05 (0.66-1.25) mg/dL Est GFR (CKD-EPI)AfAm 89 (>60 ml/min/1.73 sqM) Est GFR (CKD-EPI)NonAf 77 (>60 ml/min/1.73 sqM) Glucose 94 (74-99) mg/dL Calcium 9.7 (8.4-10.2) mg/dL Total Bilirubin 1.1 (0.2-1.3) mg/dL AST 61 H (17-59) U/L ALT 62 (21-72) U/L Alkaline Phosphatase 116 (38-126) U/L Total Protein 7.0 (6.3-8.2) g/dL Albumin 4.4 (3.5-5.0) g/dL Urine Color Light Red Urine Appearance Cloudy (Clear) Urine pH 6.0 (5.0-8.0) Ur Specific [place] 1.029 (1.001-1.035) Urine Protein 2+ H (Negative) Urine Glucose (UA) Negative (Negative) Urine Ketones Trace H (Negative) Urine Blood Moderate H (Negative) Urine Nitrite Negative (Negative) Urine Bilirubin Negative (Negative) Urine Urobilinogen 2.0 (<2.0) mg/dL Ur Leukocyte Esterase Small H (Negative) Urine RBC >182 H (0-5) /hpf Urine WBC 12 H (0-5) /hpf Ur Squamous Epith Cells 1 (0-4) /hpf Urine Mucus Many H (None) /hpf Disposition Clinical Impression: UTI (urinary tract infection), Urinary retention Disposition: HOME SELF-CARE Condition: Stable Instructions (If sedation given, give patient instructions): Urinary Retention in Men (ED), Enlarged Prostate (BPH) (ED), Urinary Tract Infection in Men (ED) Additional Instructions: Patient to adhere to previously discussed treatment plan and will take medication(s) as directed. Patient to follow up with PCP in 1-2 days. Patient to return to ED if symptoms do not improve. Please follow-up with urologist in 1-2 days. Please take medications as directed. Please return to ER if condition worsens in anyway, if unable to urinate. Prescriptions: Sulfamethox-Tmp 800-160Mg [Bactrim DS 800-160 mg] 1 tab PO Q12HR #20 tab Tamsulosin [Flomax] 0.4 mg PO DAILY #10 cap Phenazopyridine [Pyridium] 100 mg PO TID 3 Days day Is patient prescribed a controlled substance at d/c from ED?: No Referrals: Deborah Shah III, MD [Primary Care Provider] - 1-2 days Raghu Howard MD [STAFF PHYSICIAN] - 1-2 days
[2018-11-04] MEDS ORDERED: MORPHINE SULFATE 4 MG/ML SYRINGE IV STA ×2 (12:57→14:09)
[2018-11-04] MEDS ORDERED: LIDOCAINE URO-JET JELLY 2% 5 ML KIT URETHRAL ONE (12:58)
[2018-11-04 13:46] LABS: Basophils # (A) 0.1 k/uL (0-0.2); Basophils % (A) 1 %; Eosinophils # (A) 0.2 k/uL (0-0.7); Eosinophils % (A) 2 %; HCT 45.9 % (39.0-53.0); HGB 16.1 gm/dL (13.0-17.5); Lymphocytes # (A) 1.8 k/uL (1.0-4.8); Lymphocytes % (A) 15 %; MCH 31.3 pg (25.0-35.0); MCHC 35.1 g/dL (31.0-37.0); MCV 89.3 fL (80.0-100.0); Mean Platelet Volume 8.8; Monocytes # (A) 0.8 k/uL (0-1.0); Monocytes % (A) 7 %; Neutrophils # (A) 8.7 k/uL (1.3-7.7); Neutrophils % (A) 74 %; Platelet Count 206 k/uL (150-450); RBC 5.15 m/uL (4.30-5.90); RDW 15.1 % (11.5-15.5); WBC 11.6 k/uL (3.8-10.6)
--- NOTE | 2018-11-04 13:48 | XR ---
EXAMINATION TYPE: XR chest 2V DATE OF EXAM: 11/04/2018 COMPARISON: 10/01/2018 TECHNIQUE: PA and lateral views submitted. HISTORY: Pain FINDINGS: The lungs are clear and there is no pneumothorax, pleural effusion, or focal pneumonia. Biapical pl eural thickening. Hypertrophic and degenerative changes of the spine. IMPRESSION: 1. No acute process.
[2018-11-04 14:00] LABS: Appearance,Urine Cloudy (Clear); Bilirubin,Urine Negative (Negative); Blood,Urine Moderate (Negative); Color,Urine Light Red; Glucose,Urine (UA) Negative (Negative); Ketones,Urine Trace (Negative); Leukocyte Esterase,Urine Small (Negative); Mucus,Urine Many /hpf; Nitrite,Urine Negative (Negative); Protein,Urine 2+ (Negative); RBC,Urine >182 /hpf (0-5); Specific Gravity,Urine 1.029 (1.001-1.035); Squamous Epithelial Cell,Urine 1 /hpf (0-4)
[2018-11-04 14:17] LABS: Albumin 4.4 g/dL (3.5-5.0); Calcium 9.7 mg/dL (8.4-10.2); Potassium 3.4 mmol/L (3.5-5.1); Total Bilirubin 1.1 mg/dL (0.2-1.3)
[2018-11-04] MEDS ORDERED: PHENAZOPYRIDINE 100 MG TAB PO STA (14:34)
[2018-11-04 15:14] VITALS: BP 159/91; PULSE 67
--- NOTE | 2018-11-04 15:41 | ED ---
Medical Decision Making - Medical Decision Making Pt asymptomatic after breathing treatment. Pt lungs CTAB after duoneb. CXR did not display acute process. PT will continue to monitor symptoms at home and use rx COPD medications. Pt dc wit h5 days of prednisone. - Lab Data Result diagrams: 11/04/18 13:15 11/04/18 13:15 Lab Results 11/04/18 11/04/18 11/04/18 Range/Units 13:15 13:15 13:15 WBC 11.6 H (3.8-10.6) k/uL RBC 5.15 (4.30-5.90) m/uL Hgb 16.1 (13.0-17.5) gm/dL Hct 45.9 (39.0-53.0) % MCV 89.3 (80.0-100.0) fL MCH 31.3 (25.0-35.0) pg MCHC 35.1 (31.0-37.0) g/dL RDW 15.1 (11.5-15.5) % Plt Count 206 (150-450) k/uL Neutrophils % 74 % Lymphocytes % 15 % Monocytes % 7 % Eosinophils % 2 % Basophils % 1 % Neutrophils # 8.7 H (1.3-7.7) k/uL Lymphocytes # 1.8 (1.0-4.8) k/uL Monocytes # 0.8 (0-1.0) k/uL Eosinophils # 0.2 (0-0.7) k/uL Basophils # 0.1 (0-0.2) k/uL Sodium 140 (137-145) mmol/L Potassium 3.4 L (3.5-5.1) mmol/L Chloride 105 (98-107) mmol/L Carbon Dioxide 26 (22-30) mmol/L Anion Gap 9 mmol/L BUN 16 (9-20) mg/dL Creatinine 1.05 (0.66-1.25) mg/dL Est GFR (CKD-EPI)AfAm 89 (>60 ml/min/1.73 sqM) Est GFR (CKD-EPI)NonAf 77 (>60 ml/min/1.73 sqM) Glucose 94 (74-99) mg/dL Calcium 9.7 (8.4-10.2) mg/dL Total Bilirubin 1.1 (0.2-1.3) mg/dL AST 61 H (17-59) U/L ALT 62 (21-72) U/L Alkaline Phosphatase 116 (38-126) U/L Total Protein 7.0 (6.3-8.2) g/dL Albumin 4.4 (3.5-5.0) g/dL Urine Color Light Red Urine Appearance Cloudy (Clear) Urine pH 6.0 (5.0-8.0) Ur Specific [place] 1.029 (1.001-1.035) Urine Protein 2+ H (Negative) Urine Glucose (UA) Negative (Negative) Urine Ketones Trace H (Negative) Urine Blood Moderate H (Negative) Urine Nitrite Negative (Negative) Urine Bilirubin Negative (Negative) Urine Urobilinogen 2.0 (<2.0) mg/dL Ur Leukocyte Esterase Small H (Negative) Urine RBC >182 H (0-5) /hpf Urine WBC 12 H (0-5) /hpf Ur Squamous Epith Cells 1 (0-4) /hpf Urine Mucus Many H (None) /hpf Disposition Clinical Impression: UTI (urinary tract infection), Urinary retention Disposition: HOME SELF-CARE Condition: Stable Instructions (If sedation given, give patient instructions): Urinary Retention in Men (ED), Enlarged Prostate (BPH) (ED), Urinary Tract Infection in Men (ED) Additional Instructions: Patient to adhere to previously discussed treatment plan and will take medication(s) as directed. Patient to follow up with PCP in 1-2 days. Patient to return to ED if symptoms do not improve. Please follow-up with urologist in 1-2 days. Please take medications as directed. Please return to ER if condition worsens in anyway, if unable to urinate. Prescriptions: Sulfamethox-Tmp 800-160Mg [Bactrim DS 800-160 mg] 1 tab PO Q12HR #20 tab Tamsulosin [Flomax] 0.4 mg PO DAILY #10 cap predniSONE 50 mg PO DAILY #5 tab Phenazopyridine [Pyridium] 100 mg PO TID 3 Days day Is patient prescribed a controlled substance at d/c from ED?: No Referrals: Raghu Howard MD [STAFF PHYSICIAN] - 1-2 days Deborah Shah III, MD [Primary Care Provider] - 1-2 days
--- NOTE | 2018-11-07 05:20 | CDI ---
Documentation Clarification OP Dear Francisco FRANCIS, PAC Please procedure done related to lidocaine administered. Thank you, Deirdre Walters Chartered Accountant If you have any questions, please contact [employer]er at [phone] [facility]
== END 2018-11-04 16:11 | disposition home or self-care (01) ==
LOC: EC 11:55 → MERGE 11:55 → EC 16:11
DX: N39.0 Urinary tract infection, site not specified (principal); R06.2 Wheezing; J44.9 Chronic obstructive pulmonary disease, unspecified; F41.9 Anxiety disorder, unspecified; F32.9 Major depressive disorder, single episode, unspecified; F17.200 Nicotine dependence, unspecified, uncomplicated; G47.30 Sleep apnea, unspecified; Z99.89 Dependence on other enabling machines and devices; Z87.438 Personal history of other diseases of male genital organs; Z98.890 Other specified postprocedural states; Z79.899 Other long term (current) drug therapy; Z91.010 Allergy to peanuts
CPT/HCPCS: 99285; 51701; 96365; 96375; 96376; 96361 ×2; 36415; 94640; 80053; 85025; 81001; 87086; 71046; J2270; J0696; J7512

== ENCOUNTER 2018-12-29 11:30 | Emergency (ER) | payer MEDICARE ==
[2018-12-29] MEDS ORDERED: SODIUM CHLORIDE 0.9% 1,000 ML IV STA (13:28)
[2018-12-29] MEDS ORDERED: IPRATROPIUM-ALBUTEROL 3 ML NEB INHALATION STA (13:28)
[2018-12-29] MEDS ORDERED: methylPREDNISolone SOD SUCCI 125 MG/2 ML VIAL IV STA (13:28)
[2018-12-29] MEDS ORDERED: HYDROcodone/APAP 10-325MG 1 EACH TAB PO ONE (13:29)
[2018-12-29 13:48] LABS: Basophils # (A) 0.1 k/uL (0-0.2); Basophils % (A) 1 %; Eosinophils # (A) 0.3 k/uL (0-0.7); Eosinophils % (A) 3 %; HCT 47.9 % (39.0-53.0); Lymphocytes # (A) 1.4 k/uL (1.0-4.8); Lymphocytes % (A) 14 %; MCH 31.1 pg (25.0-35.0); MCHC 33.5 g/dL (31.0-37.0); MCV 92.9 fL (80.0-100.0); Mean Platelet Volume 6.7; Monocytes # (A) 0.6 k/uL (0-1.0); Monocytes % (A) 6 %; Neutrophils # (A) 7.2 k/uL (1.3-7.7); Neutrophils % (A) 75 %; Platelet Count 227 k/uL (150-450); RBC 5.16 m/uL (4.30-5.90); RDW 14.3 % (11.5-15.5); WBC 9.5 k/uL (3.8-10.6)
[2018-12-29 13:53] LABS: ALT 39 U/L (21-72); AST 33 U/L (17-59); Albumin 4.4 g/dL (3.5-5.0); Alkaline Phosphatase 96 U/L (38-126); Anion Gap 11 mmol/L; Blood Urea Nitrogen 19 mg/dL (9-20); Calcium 9.5 mg/dL (8.4-10.2); Carbon Dioxide 24 mmol/L (22-30); Chloride 105 mmol/L (98-107); Glucose 151 mg/dL (74-99); Potassium 3.3 mmol/L (3.5-5.1); Sodium 140 mmol/L (137-145); Total Protein 6.8 g/dL (6.3-8.2)
[2018-12-29 14:09] LABS: INR 0.9 (<1.2); Partial Thromboplastin Time 22.6 sec (22.0-30.0)
--- NOTE | 2018-12-29 14:25 | ED ---
Back Pain HPI - General Chief Complaint: Back Pain/Injury Stated Complaint: SOB/back & neck pain Time Seen by Provider: 12/29/18 11:35 Source: patient, RN notes reviewed, old records reviewed Limitations: no limitations - History of Present Illness Initial Comments: Patient is a 63-year-old male well-known to return if they have complaints of wheezing difficulty breathing. Also complains of waking up with a neck and back pain. Patient denies any falls or trauma. Patient denies any significant productive cough. Patient has had no recent steroids. Patient denies any rece nt fever, chills, chest pain, back pain, abdominal pain, nausea vomiting, numbness or tingling, dysuria or hematuria, constipation or diarrhea, headaches or visual changes, or any other current symptomsReview of systems - Related Data Home Medications Medication Instructions Recorded Confirmed Montelukast [Singulair] 10 mg PO DAILY 03/16/14 12/29/18 Metoprolol Tartrate 25 mg PO DAILY 04/24/18 12/29/18 Sertraline [Zoloft] 100 mg PO DAILY 11/04/18 12/29/18 hydrALAZINE HCL [Apresoline] 25 mg PO BID 11/04/18 12/29/18 oxyCODONE-APAP 10-325MG [Percocet 1 tab PO QID PRN 11/04/18 12/29/18 10-325 mg] Eszopiclone [Lunesta] 2 mg PO HS PRN 12/29/18 12/29/18 Finasteride [Proscar] 5 mg PO DAILY 12/29/18 12/29/18 amLODIPine [Norvasc] 5 mg PO DAILY 12/29/18 12/29/18 Previous Rx's Medication Instructions Recorded Tamsulosin [Flomax] 0.4 mg PO DAILY #10 cap 11/04/18 Cyclobenzaprine [Flexeril] 10 mg PO TID #20 tab 12/29/18 predniSONE 10 mg PO DAILY #15 tab 12/29/18 Allergies Allergy/AdvReac Type Severity Reaction Status Date / Time peanut Allergy alg testing Verified 12/29/18 13:46 pollen extracts Allergy Unknown Verified 12/29/18 13:46 DUST Allergy alg testing Uncoded 11/07/18 11:02 Review of Systems ROS Statement: Those systems with pertinent positive or pertinent negative responses have been documented in the HPI. ROS Other: All systems not noted in ROS Statement are negative. Past Medical History Past Medical History: Atrial Flutter, Asthma, Chest Pain / Angina, COPD, GERD/Reflux, Hypertension, Osteoarthritis (OA), Pneumonia, Sleep Apnea/CPAP/ BIPAP Additional Past Medical History / Comment(s): Back problems History of Any Multi-Drug Resistant Organisms: None Reported Past Surgical History: Adenoidectomy, Bowel Resection, Cholecystectomy Additional Past Surgical History / Comment(s): Nasal Past Anesthesia/Blood Transfusion Reactions: Previous Problems w/ Anesthesia, Motion Sickness Additional Past Anesthesia/Blood Transfusion Reaction / Comment(s): states "during procedure of checking something on my left lung,I turned blue and I was brought right back out anesthesia and proc was cancelled". clausterphobia Past Psychological History: Anxiety, Bipolar, Depression, Panic Disorder Past Alcohol Use History: Heavy, None Reported - Past Family History Mother Family Medical History: Asthma Additional Family Medical History / Comment(s): at age 62 Father Family Medical History: CVA/TIA Additional Family Medical History / Comment(s): at age 90 General Exam - General Exam Comments Initial Comments: 63-year-old male. General: Well appearing, well nourished, in no distress. Oriented x 3, normal mood and affect . Ambulating without difficulty. Skin: Good turgor, no rash, unusual bruising or prominent lesions Hair: Normal texture and distribution. HEENT: Head: Normocephalic, atraumatic, no visible or palpable masses, depressions, or scaring. Eyes: Visual acuity intact, conjunctiva clear, sclera non-icteric, EOM intact, PERRL. Ears: EACs clear, TMs translucent & cone of light visualized. hearing intact. Nose: No external lesions, mucosa non-inflamed, septum and turbinates normal Mouth: Mucous membranes moist, no mucosal lesions. Teeth/Gums: No obvious caries or periodontal disease. No gingival inflammation or significant resorption. Pharynx: Mucosa non-inflamed, no tonsillar hypertrophy or exudate Neck: Supple, without lesions, bruits, or adenopathy, Heart: No cardiomegaly or thrills; regular rate and rhythm, no murmur or gallop Lungs: Wheezing noted on forced expiration Abdomen: Bowel sounds normal, no tenderness, organomegaly, masses, or hernia Back: Spine normal without deformity or tenderness, no CVA tenderness Rectal: Normal sphincter tone, no hemorrhoids or masses palpable Extremities: No amputations or deformities, cyanosis, edema or varicosities, peripheral pulses intact Musculoskeletal: Normal gait and station. No misalignment, asymmetry, crepitation, defects, tenderness, masses, effusions, decreased range of motion, instability, atrophy or abnormal strength or tone in the head, neck, spine, ribs, pelvis or extremities. Neurologic: CN 2-12 normal. Sensation to pain, touch, and proprioception normal. DTRs normal in upper and lower extremities. No pathologic reflexes. Psychiatric: Oriented X3, intact recent and remote memory, judgment and insight, normal mood and affect. m without lesions. Limitations: no limitations Course Vital Signs 12/29/18 12/29/18 12/29/18 11:43 14:00 14:09 Temperature 99.1 F Pulse Rate 73 76 70 Respiratory 18 Rate Blood Pressure 120/71 O2 Sat by Pulse 97 Oximetry 12/29/18 14:30 Temperature Pulse Rate 59 L Respiratory 22 Rate Blood Pressure 146/88 O2 Sat by Pulse 95 Oximetry Medical Decision Making - Medical Decision Making 53-year-old male wanted to emergency department for COPD, chronic pain. He presents today with neck and back pain. Forced wheezing noted on exam. Patient given DuoNeb treatment, Solu-Medrol. Chest x-ray is normal. Blood work was reviewed and unremarkable. Patient is given 1 by mouth pain medication ED. Discussed the Patient has a follow-up with his primary care doctor for further pain medication. He is currently receiving Percocet. Discussed Motrin Tylenol and to take using muscle relaxers as prescribed for muscle spasm. I'll cautions and to return parameters were discussed. - Lab Data Result diagrams: 12/29/18 13:10 12/29/18 13:10 Lab Results 12/29/18 12/29/18 12/29/18 Range/Units 13:10 13:10 13:10 WBC 9.5 (3.8-10.6) k/uL RBC 5.16 (4.30-5.90) m/uL Hgb 16.0 (13.0-17.5) gm/dL Hct 47.9 (39.0-53.0) % MCV 92.9 (80.0-100.0) fL MCH 31.1 (25.0-35.0) pg MCHC 33.5 (31.0-37.0) g/dL RDW 14.3 (11.5-15.5) % Plt Count 227 (150-450) k/uL Neutrophils % 75 % Lymphocytes % 14 % Monocytes % 6 % Eosinophils % 3 % Basophils % 1 % Neutrophils # 7.2 (1.3-7.7) k/uL Lymphocytes # 1.4 (1.0-4.8) k/uL Monocytes # 0.6 (0-1.0) k/uL Eosinophils # 0.3 (0-0.7) k/uL Basophils # 0.1 (0-0.2) k/uL PT 10.0 (9.0-12.0) sec INR 0.9 (<1.2) APTT 22.6 (22.0-30.0) sec Sodium 140 (137-145) mmol/L Potassium 3.3 L (3.5-5.1) mmol/L Chloride 105 (98-107) mmol/L Carbon Dioxide 24 (22-30) mmol/L Anion Gap 11 mmol/L BUN 19 (9-20) mg/dL Creatinine 0.89 (0.66-1.25) mg/dL Est GFR (CKD-EPI)AfAm >90 (>60 ml/min/1.73 sqM) Est GFR (CKD-EPI)NonAf >90 (>60 ml/min/1.73 sqM) Glucose 151 H (74-99) mg/dL Calcium 9.5 (8.4-10.2) mg/dL Total Bilirubin 1.0 (0.2-1.3) mg/dL AST 33 (17-59) U/L ALT 39 (21-72) U/L Alkaline Phosphatase 96 (38-126) U/L Troponin I (0.000-0.034) ng/mL Total Protein 6.8 (6.3-8.2) g/dL Albumin 4.4 (3.5-5.0) g/dL 12/29/18 Range/Units 13:10 WBC (3.8-10.6) k/uL RBC (4.30-5.90) m/uL Hgb (13.0-17.5) gm/dL Hct (39.0-53.0) % MCV (80.0-100.0) fL MCH (25.0-35.0) pg MCHC (31.0-37.0) g/dL RDW (11.5-15.5) % Plt Count (150-450) k/uL Neutrophils % % Lymphocytes % % Monocytes % % Eosinophils % % Basophils % % Neutrophils # (1.3-7.7) k/uL Lymphocytes # (1.0-4.8) k/uL Monocytes # (0-1.0) k/uL Eosinophils # (0-0.7) k/uL Basophils # (0-0.2) k/uL PT (9.0-12.0) sec INR (<1.2) APTT (22.0-30.0) sec Sodium (137-145) mmol/L Potassium (3.5-5.1) mmol/L Chloride (98-107) mmol/L Carbon Dioxide (22-30) mmol/L Anion Gap mmol/L BUN (9-20) mg/dL Creatinine (0.66-1.25) mg/dL Est GFR (CKD-EPI)AfAm (>60 ml/min/1.73 sqM) Est GFR (CKD-EPI)NonAf (>60 ml/min/1.73 sqM) Glucose (74-99) mg/dL Calcium (8.4-10.2) mg/dL Total Bilirubin (0.2-1.3) mg/dL AST (17-59) U/L ALT (21-72) U/L Alkaline Phosphatase (38-126) U/L Troponin I <0.012 (0.000-0.034) ng/mL Total Protein (6.3-8.2) g/dL Albumin (3.5-5.0) g/dL 12/29/18 14:27 EKG shows sinus rhythm possible left atrial enlargement. Right bundle-branch block. Possible inferior infarct age undetermined. Abnormal EKG. Ventricular rate of 61 bpm. 36 most seconds. QTc is 460/463 ms. - Radiology Data Radiology results: report reviewed Disposition Clinical Impression: Back spasm, COPD (chronic obstructive pulmonary disease) Disposition: HOME SELF-CARE Condition: Good Instructions (If sedation given, give patient instructions): COPD (Chronic Obstructive Pulmonary Disease) (ED), Muscle Spasm (ED) Additional Instructions: Follow-up with PCP. Patient should take the steroids as prescribed. Return to the emergency department if any alarming signs or symptoms occur. Prescriptions: Cyclobenzaprine [Flexeril] 10 mg PO TID #20 tab predniSONE 10 mg PO DAILY #15 tab Is patient prescribed a controlled substance at d/c from ED?: No Referrals: Deborah Shah III, MD [Primary Care Provider] - 1-2 days Time of Disposition: 14:54
--- NOTE | 2018-12-29 14:33 | XR ---
EXAMINATION TYPE: XR chest 2V DATE OF EXAM: 12/29/2018 COMPARISON: 11/04/2018 HISTORY: Shortness of breath TECHNIQUE: Frontal and lateral views of the chest are obtained. FINDINGS: There is no focal air space opacity, pleural effusion, or pneumothorax seen. The cardiac silhouette size is within normal limits. The osseous structures are intact. IMPRESSION: No acute cardiopulmonary process.
[2018-12-29] MEDS ORDERED: KETOROLAC 30 MG/ML 1 ML VIAL IVP STA (15:04)
[2018-12-29 15:36] VITALS: BP 141/78; PULSE 68; RESP 20; TEMP 98.1
== END 2018-12-29 15:35 | disposition home or self-care (01) ==
LOC: EC 11:30
DX: J44.9 Chronic obstructive pulmonary disease, unspecified (principal); I45.10 Unspecified right bundle-branch block; R94.31 Abnormal electrocardiogram [ECG] [EKG]; M62.830 Muscle spasm of back; I10 Essential (primary) hypertension; G40.909 Epilepsy, unspecified, not intractable, without status epilepticus; G47.30 Sleep apnea, unspecified; Z91.010 Allergy to peanuts; Z91.048 Other nonmedicinal substance allergy status; Z79.899 Other long term (current) drug therapy; Z99.89 Dependence on other enabling machines and devices; Z82.5 Family history of asthma and other chronic lower respiratory diseases
CPT/HCPCS: 36415; 94640; 93005; 80053; 84484; 85025; 85610; 85730; 71046; 99284; 96374; 96375; 96361; J2930; J1885

== ENCOUNTER 2019-01-02 13:53 | Emergency (ER) | payer MEDICARE ==
[2019-01-02 14:48] VITALS: BP 141/90; PULSE 56; RESP 16; TEMP 98.3
[2019-01-02] MEDS ORDERED: HYDROcodone/APAP 10-325MG 1 EACH TAB PO ONE (15:28)
--- NOTE | 2019-01-02 16:14 | XR ---
EXAM TYPE: LUMBAR SPINE X RAY SERIES COMPARISON: NONE HISTORY: 09/04/2017 TECHNIQUE: 3 views are submitted. FINDINGS: Alignment is anatomic. The pedicles are intact. The transverse processes are intact. There is no s pondylolisthesis. There is diffuse osteopenia and degenerative changes with facet arthropathy involv ing the lower lumbar spine. No compression deformities. Atherosclerotic change aorta. Sclerotic densi ty overlying the L2 segment is stable may represent bone island. Calcification left abdomen may repre sent a renal calculus. IMPRESSION: 1. Multilevel degenerative disc disease with no compression deformities.. 2. Possible lower pole 3 mm renal calculus.
--- NOTE | 2019-01-02 16:17 | XR ---
EXAMINATION TYPE: XR cervical spine comp DATE OF EXAM: 01/02/2019 COMPARISON: NONE HISTORY: Pain TECHNIQUE: Four views are submitted. FINDINGS: The odontoid is intact. There are no compression deformities. The prevertebral soft tissue structur es are within normal limits. Hypertrophic and degenerative change at virtually all levels. There is a 2 mm anterolisthesis of C2 on C3 and C3 on C4. Multilevel facet arthropathy noted. Alignment is onl y demonstrated to the superior endplate of C7. Multilevel foraminal encroachment. Calcification the s oft tissue the right neck likely related to atherosclerotic change of the right carotid artery. IMPRESSION: 1. Multilevel degenerative disc disease and facet arthropathy with 2 mm anterolisthesis C2 on C3 and C3 on C4. Note is made that alignment is only demonstrated to the superior endplate of C7.
--- NOTE | 2019-01-02 16:28 | ED ---
Back Pain HPI - General Chief Complaint: Back Pain/Injury Stated Complaint: Fall-neck/arm pain Time Seen by Provider: 01/02/19 15:02 Source: patient Limitations: no limitations - History of Present Illness Initial Comments: Patient is a 63-year-old male complaining of neck and low back pain after falling 2 days ago. Patient is a frequent visitor of the emergency center. States he was walking down a wheelchair incline and tripped and fell forward onto his hands. States he started developing neck and low back pain shortly after. Admits to history of degenerative disc disease and takes Percocets at home. No other complaints at this time. - Related Data Home Medications Medication Instructions Recorded Confirmed Montelukast [Singulair] 10 mg PO DAILY 03/16/14 12/29/18 Metoprolol Tartrate 25 mg PO DAILY 04/24/18 12/29/18 Sertraline [Zoloft] 100 mg PO DAILY 11/04/18 12/29/18 hydrALAZINE HCL [Apresoline] 25 mg PO BID 11/04/18 12/29/18 oxyCODONE-APAP 10-325MG [Percocet 1 tab PO QID PRN 11/04/18 12/29/18 10-325 mg] Eszopiclone [Lunesta] 2 mg PO HS PRN 12/29/18 12/29/18 Finasteride [Proscar] 5 mg PO DAILY 12/29/18 12/29/18 amLODIPine [Norvasc] 5 mg PO DAILY 12/29/18 12/29/18 Previous Rx's Medication Instructions Recorded Tamsulosin [Flomax] 0.4 mg PO DAILY #10 cap 11/04/18 Cyclobenzaprine [Flexeril] 10 mg PO TID #20 tab 12/29/18 predniSONE 10 mg PO DAILY #15 tab 12/29/18 Allergies Allergy/AdvReac Type Severity Reaction Status Date / Time peanut Allergy alg testing Verified 01/02/19 14:44 pollen extracts Allergy Unknown Verified 01/02/19 14:44 DUST Allergy alg testing Uncoded 01/02/19 14:44 Review of Systems ROS Statement: Those systems with pertinent positive or pertinent negative responses have been documented in the HPI. ROS Other: All systems not noted in ROS Statement are negative. Past Medical History Past Medical History: Atrial Flutter, Asthma, Chest Pain / Angina, COPD, GERD/Reflux, Hypertension, Osteoarthritis (OA), Pneumonia, Sleep Apnea/CPAP/BIPAP Additional Past Medical History / Comment(s): Back problems History of Any Multi-Drug Resistant Organisms: None Reported Past Surgical History: Adenoidectomy, Bowel Resection, Cholecystectomy Additional Past Surgical History / Comment(s): Nasal Past Anesthesia/Blood Transfusion Reactions: Previous Problems w/ Anesthesia, Motion Sickness Additional Past Anesthesia/Blood Transfusion Reaction / Comment(s): states "during procedure of checking something on my left lung,I turned blue and I was brought right back out anesthesia and proc was cancelled". clausterphobia Past Psychological History: Anxiety, Bipolar, Depression, Panic Disorder Past Alcohol Use History: Heavy, None Reported - Past Family History Mother Family Medical History: Asthma Additional Family Medical History / Comment(s): at age 62 Father Family Medical History: CVA/TIA Additional Family Medical History / Comment(s): at age 90 General Exam - General Exam Comments Initial Comments: GENERAL: Well-appearing, well-nourished and in no acute distress. HEAD: Atraumatic, normocephalic. EYES: Pupils equal round and reactive to light, extraocular movements intact, sclera anicteric, conjunctiva are normal. ENT: TMs normal, nares patent, oropharynx clear without exudates. Moist mucous membranes. NECK: Normal range of motion, supple without lymphadenopathy or JVD. LUNGS: Breath sounds clear to auscultation bilaterally and equal. No wheezes rales or rhonchi. Patient is forcing wheezing. HEART: Regular rate and rhythm without murmurs, rubs or gallops. ABDOMEN: Soft, nontender, normoactive bowel sounds. No guarding, no rebound. No masses appreciated. : Deferred EXTREMITIES: Normal range of motion of the neck and trunk. TTP along the entire spine. No deformities noted. NEUROLOGICAL: Cranial nerves II through XII grossly intact. Normal speech, normal gait. PSYCH: Normal mood, normal affect. SKIN: Warm, Dry, normal turgor, no rashes or lesions noted. Limitations: no limitations Course Vital Signs 01/02/19 14:44 Temperature 98.3 F Pulse Rate 56 L Respiratory 16 Rate Blood Pressure 141/90 O2 Sat by Pulse 94 L Oximetry Medical Decision Making - Medical Decision Making Patient is a 63-year-old male complaining of neck and low back pain after falling 2 days ago. Patient is a frequent visitor of the ER. Cervical and lumbar x-rays reveal no acute changes, no fractures. Patient will be discharged home and will follow up with orthopedics if pain continues. Disposition Clinical Impression: Neck pain, Lumbar pain Disposition: HOME SELF-CARE Condition: Stable Instructions (If sedation given, give patient instructions): Acute Low Back Pain (ED), Neck Pain (ED) Additional Instructions: Please return to the Emergency Department if symptoms worsen or any other concerns. Follow up with orthopedics if pain continues. Is patient prescribed a controlled substance at d/c from ED?: No Referrals: Deborah Shah III, MD [Primary Care Provider] - 1-2 days
== END 2019-01-02 16:32 | disposition home or self-care (01) ==
LOC: EC 13:53
DX: M54.2 Cervicalgia (principal); M54.5 Low back pain; J44.9 Chronic obstructive pulmonary disease, unspecified; I10 Essential (primary) hypertension; F32.9 Major depressive disorder, single episode, unspecified; F41.0 Panic disorder [episodic paroxysmal anxiety]; G47.30 Sleep apnea, unspecified; Z79.899 Other long term (current) drug therapy; Z91.010 Allergy to peanuts; Z91.048 Other nonmedicinal substance allergy status; Z99.89 Dependence on other enabling machines and devices; W01.0XXA Fall on same level from slipping, tripping and stumbling without subsequent striking against object, initial encounter; Y93.01 Activity, walking, marching and hiking
CPT/HCPCS: 72050; 72100; 99283

== ENCOUNTER 2019-01-30 03:26 | Inpatient (IN) | payer MEDICARE, OTHER ==
--- NOTE | 2019-01-30 04:15 | ED ---
General Adult HPI - General Chief complaint: Upper Respiratory Infection Stated complaint: SOB/Back Pain Time Seen by Provider: 01/30/19 03:49 Source: patient Mode of arrival: wheelchair Limitations: no limitations - History of Present Illness Initial comments: Milo is a 63-year-old woman with past medical history of COPD who presents the emergency department today for evaluation of progressively worsening cough, wheezing shortness of breath. In addition patient reports for further past couple of days he's had nausea and diarrhea. Patient reports that he lives alone and he just doesn't feel like he can take care of himself while he is this ill. Patient also reports he has chronic pain and is on multiple medications however due to his nausea and diarrhea he feels like he is not getting his medications in. He is having worsening back and neck pain. - Related Data Home Medications Medication Instructions Recorded Confirmed Montelukast [Singulair] 10 mg PO DAILY 03/16/14 12/29/18 Metoprolol Tartrate 25 mg PO DAILY 04/24/18 12/29/18 Sertraline [Zoloft] 100 mg PO DAILY 11/04/18 12/29/18 hydrALAZINE HCL [Apresoline] 25 mg PO BID 11/04/18 12/29/18 oxyCODONE-APAP 10-325MG [Percocet 1 tab PO QID PRN 11/04/18 12/29/18 10-325 mg] Eszopiclone [Lunesta] 2 mg PO HS PRN 12/29/18 12/29/18 Finasteride [Proscar] 5 mg PO DAILY 12/29/18 12/29/18 amLODIPine [Norvasc] 5 mg PO DAILY 12/29/18 12/29/18 Previous Rx's Medication Instructions Recorded Tamsulosin [Flomax] 0.4 mg PO DAILY #10 cap 11/04/18 Cyclobenzaprine [Flexeril] 10 mg PO TID #20 tab 12/29/18 predniSONE 10 mg PO DAILY #15 tab 12/29/18 Allergies Allergy/AdvReac Type Severity Reaction Status Date / Time peanut Allergy alg testing Verified 01/02/19 14:44 pollen extracts Allergy Unknown Verified 01/02/19 14:44 DUST Allergy alg testing Uncoded 01/02/19 14:44 Review of Systems ROS Statement: Those systems with pertinent positive or pertinent negative responses have been documented in the HPI. ROS Other: All systems not noted in ROS Statement are negative. Past Medical History Past Medical History: Atrial Flutter, Asthma, Chest Pain / Angina, COPD, GERD/Reflux, Hypertension, Osteoarthritis (OA), Pneumonia, Sleep Apnea/CPAP/BIPAP Additional Past Medical History / Comment(s): Back problems History of Any Multi-Drug Resistant Organisms: None Reported Past Surgical History: Adenoidectomy, Bowel Resection, Cholecystectomy Additional Past Surgical History / Comment(s): Nasal Past Anesthesia/Blood Transfusion Reactions: Previous Problems w/ Anesthesia, Motion Sickness Additional Past Anesthesia/Blood Transfusion Reaction / Comment(s): states "during procedure of checking something on my left lung,I turned blue and I was brought right back out anesthesia and proc was cancelled". clausterphobia Past Psychological History: Anxiety, Bipolar, Depression, Panic Disorder Past Alcohol Use History: Heavy, None Reported - Past Family History Mother Family Medical History: Asthma Additional Family Medical History / Comment(s): at age 62 Father Family Medical History: CVA/TIA Additional Family Medical History / Comment(s): at age 90 General Exam - General Exam Comments Initial Comments: Physical Exam GENERAL: Chronically ill-appearing, appears older than stated age HENT: Normocephalic, Atraumatic. EYES: PERRL, EOMI PULMONARY: X-ray trying wheezing in all lung pedroza with prolonged expiration CARDIOVASCULAR: There is a regular rate and rhythm without any murmurs gallops or rubs. Warm and well perfused extremities ABDOMEN: Soft and nontender with normal bowel sounds. SKIN: Skin is clear with no lesions or rashes and otherwise unremarkable. : Deferred NEUROLOGIC: Patient is alert and oriented x3. Moving all extremities spontaneously MUSCULOSKELETAL: Normal extremities with adequate strength and full range of motion. No lower extremity swelling or edema. No calf tenderness. PSYCHIATRIC: Normal psychiatric evaluation Limitations: no limitations Course Vital Signs 01/30/19 01/30/19 01/30/19 03:28 03:32 05:33 Temperature 98.6 F Pulse Rate 68 76 Respiratory 18 Rate Blood Pressure 146/91 O2 Sat by Pulse 97 96 Oximetry 01/30/19 05:41 Temperature Pulse Rate 62 Respiratory Rate Blood Pressure O2 Sat by Pulse Oximetry Medical Decision Making - Medical Decision Making The patient was seen and evaluated, history was obtained from the patient and review of medical record This is a 63-year-old gentleman with multiple medical comorbidities presenting with nausea, diarrhea, COPD exacerbation Patient reports he's recently on steroids for COPD but has not been in the past one month Labs x-ray were ordered Solu-Medrol and DuoNeb were ordered Morphine was ordered for the patient's chronic pain Chest x-ray with no acute findings, labs reveal hemoglobin drop from 16-12.5 however it appears as though the patient was hemoconcentrated upon his previous evaluation. We will trend this. Potassium remains chronically low. Glucose is within normal limits at 128 She was reevaluated after steroids and breathing treatment he continues to wheeze and feel unwell. Considering the patient's debilitated status, COPD exacerbation I do feel he would benefit from remaining in the hospital for further evaluation, [id number] steroids, [id number] breathing treatments and trending of his hemoglobin to ensure that is not decreasing. Patient agreeable with this. Admission orders were placed. - Lab Data Result diagrams: 01/30/19 04:55 01/30/19 04:55 Lab Results 01/30/19 01/30/19 Range/Units 04:55 04:55 WBC 7.5 (3.8-10.6) k/uL RBC 4.04 L (4.30-5.90) m/uL Hgb 12.5 L D (13.0-17.5) gm/dL Hct 37.4 L (39.0-53.0) % MCV 92.6 (80.0-100.0) fL MCH 31.0 (25.0-35.0) pg MCHC 33.5 (31.0-37.0) g/dL RDW 14.3 (11.5-15.5) % Plt Count 134 L (150-450) k/uL Neutrophils % 65 % Lymphocytes % 15 % Monocytes % 6 % Eosinophils % 13 % Basophils % 0 % Neutrophils # 4.9 (1.3-7.7) k/uL Lymphocytes # 1.1 (1.0-4.8) k/uL Monocytes # 0.4 (0-1.0) k/uL Eosinophils # 1.0 H (0-0.7) k/uL Basophils # 0.0 (0-0.2) k/uL Sodium 143 (137-145) mmol/L Potassium 3.2 L (3.5-5.1) mmol/L Chloride 107 (98-107) mmol/L Carbon Dioxide 29 (22-30) mmol/L Anion Gap 7 mmol/L BUN 16 (9-20) mg/dL Creatinine 1.14 (0.66-1.25) mg/dL Est GFR (CKD-EPI)AfAm 80 (>60 ml/min/1.73 sqM) Est GFR (CKD-EPI)NonAf 69 (>60 ml/min/1.73 sqM) Glucose 128 H (74-99) mg/dL Calcium 8.5 (8.4-10.2) mg/dL Magnesium 1.4 L (1.6-2.3) mg/dL Total Bilirubin 0.4 (0.2-1.3) mg/dL AST 16 L (17-59) U/L ALT 21 (21-72) U/L Alkaline Phosphatase 100 (38-126) U/L Total Protein 5.2 L (6.3-8.2) g/dL Albumin 3.2 L (3.5-5.0) g/dL Disposition Clinical Impression: COPD exacerbation, Hypokalemia, Chronic pain Disposition: ADMITTED IP TO THIS HOSP Condition: Stable Referrals: Deborah Shah III, MD [Primary Care Provider] - 1-2 days
--- NOTE | 2019-01-30 04:36 | XR ---
INDICATION: Cough COMPARISON: CXR 12/29/18 FINDINGS: Frontal and lateral views of the chest are obtained. The cardiomediastinal silhouette and pulmonary vascularity are within normal limits. Lungs are clear. No pleural the effusion or pneumothorax. Bony elements are within normal limits. IMPRESSION: No acute cardiopulmonary disease.
[2019-01-30] MEDS ORDERED: MORPHINE SULFATE 4 MG/ML SYRINGE IVP STA (04:40)
[2019-01-30] MEDS ORDERED: IPRATROPIUM-ALBUTEROL 3 ML NEB INHALATION STA (04:40)
[2019-01-30] MEDS ORDERED: methylPREDNISolone SOD SUCCI 125 MG/2 ML VIAL IV STA (04:40)
[2019-01-30 05:31] LABS: Basophils % (A) 0 %; Eosinophils % (A) 13 %; HCT 37.4 % (39.0-53.0); Lymphocytes # (A) 1.1 k/uL (1.0-4.8); Lymphocytes % (A) 15 %; MCHC 33.5 g/dL (31.0-37.0); MCV 92.6 fL (80.0-100.0); Monocytes # (A) 0.4 k/uL (0-1.0); Monocytes % (A) 6 %; Neutrophils # (A) 4.9 k/uL (1.3-7.7); Neutrophils % (A) 65 %; Platelet Count 134 k/uL (150-450); RBC 4.04 m/uL (4.30-5.90); RDW 14.3 % (11.5-15.5); WBC 7.5 k/uL (3.8-10.6)
[2019-01-30 05:35] LABS: HGB 12.5 gm/dL (13.0-17.5)
[2019-01-30 05:41] LABS: Albumin 3.2 g/dL (3.5-5.0); Calcium 8.5 mg/dL (8.4-10.2); Magnesium 1.4 mg/dL (1.6-2.3); Potassium 3.2 mmol/L (3.5-5.1); Total Bilirubin 0.4 mg/dL (0.2-1.3); Total Protein 5.2 g/dL (6.3-8.2)
[2019-01-30] MEDS ORDERED: MAGNESIUM SULFATE-D5W PMX 1 GM in DEXTROSE/WATER 1 100ML.BAG IVPB ONE (05:53)
[2019-01-30] MEDS: oxyCODONE-APAP 10-325MG 1 EACH TAB PO PRN ×3 (07:27→19:59)
[2019-01-30] MEDS: FINASTERIDE 5 MG TAB PO SCH (08:13)
[2019-01-30] MEDS: MONTELUKAST 10 MG TAB PO SCH (08:13)
[2019-01-30] MEDS: CYCLOBENZAPRINE 10 MG TAB PO SCH ×3 (08:14→21:00)
[2019-01-30] MEDS: METOPROLOL TARTRATE 25 MG TAB PO SCH (08:14)
[2019-01-30] MEDS: SERTRALINE 100 MG TAB PO SCH (08:14)
[2019-01-30] MEDS: amLODIPine 5 MG TAB PO SCH (08:14)
[2019-01-30] MEDS: hydrALAZINE HCL 25 MG TAB PO SCH ×2 (08:14→19:48)
[2019-01-30 08:24] VITALS: BMI 30.7
[2019-01-30] MEDS: IPRATROPIUM-ALBUTEROL 3 ML NEB INHALATION PRN (08:26)
[2019-01-30] MEDS ORDERED: predniSONE 20 MG TAB PO SCH (09:00)
[2019-01-30] MEDS ORDERED: TEMAZEPAM 15 MG CAP PO PRN (10:13)
[2019-01-30] MEDS: TAMSULOSIN 0.4 MG CAP.ER.24H PO SCH (10:58)
[2019-01-30] MEDS ORDERED: POTASSIUM CHLORIDE ER 20 MEQ TAB.ER PO STA (11:01)
[2019-01-30] MEDS: HYDROmorphone 0.5 MG/0.5 ML SYRINGE IVP PRN ×3 (11:07→23:22)
[2019-01-30] MEDS: MULTIVITAMINS, THERA 1 EACH TAB PO SCH (11:40)
[2019-01-30] MEDS: methylPREDNISolone SOD SUCCI 125 MG/2 ML VIAL IV SCH ×3 (11:41→23:23)
[2019-01-30 11:58] LABS: Glucose,Whole Blood 128 mg/dL (75-99)
[2019-01-30] MEDS: INSULIN ASPART (NovoLOG) 100 UNIT/ML VIAL SQ SCH ×3 (12:00→21:00)
[2019-01-30] MEDS: IPRATROPIUM-ALBUTEROL 3 ML NEB INHALATION SCH ×3 (12:40→19:45)
[2019-01-30] MEDS ORDERED: Potassium Replacement Protocol 1 EACH MISC MISCELLANE PRN (16:01)
[2019-01-30] MEDS ORDERED: Magnesium Replacement Protocol 1 EACH MISC MISCELLANE PRN (16:01)
[2019-01-30 17:14] LABS: Appearance,Urine Clear (Clear); Bilirubin,Urine Negative (Negative); Blood,Urine Negative (Negative); Color,Urine Yellow; Glucose,Urine (UA) 4+ (Negative); Ketones,Urine Trace (Negative); Leukocyte Esterase,Urine Negative (Negative); Nitrite,Urine Negative (Negative); Protein,Urine Trace (Negative); Specific Gravity,Urine 1.031 (1.001-1.035); Urobilinogen,Urine <2.0 mg/dL (<2.0)
[2019-01-30 17:23] LABS: Glucose,Whole Blood 222 mg/dL (75-99)
--- NOTE | 2019-01-30 17:29 | P.CNPUL ---
History of Present Illness Consult date: 01/30/19 Reason for consult: dyspnea, cough, asthma, COPD, obstructive sleep apnea Chief complaint: Shortness of breath and cough for 2-3 day duration History of present illness: This is a 63-year-old male well-known to me had the end-stage lung disease second to severe COPD also has component of chronic asthmatic bronchitis patient was in a stable state of health until about 2-3 days ago started getting increasing shortness of breath cough and congestion and producing greenish sputum with those problem came into the hospital she he has chronic pain and his been in chronic pain medicine as well he follows Dr. Marcus for pain management, patient is scheduled for outpatient PFT and sleep study at this point with Review of Systems All systems: negative Past Medical History Past Medical History: Atrial Flutter, Asthma, Chest Pain / Angina, COPD, GERD/Reflux, Hypertension, Osteoarthritis (OA), Pneumonia, Sleep Apnea/CPAP/BIPAP Additional Past Medical History / Comment(s): Back problems History of Any Multi-Drug Resistant Organisms: None Reported Past Surgical History: Adenoidectomy, Bowel Resection, Cholecystectomy Additional Past Surgical History / Comment(s): Nasal Past Anesthesia/Blood Transfusion Reactions: Previous Problems w/ Anesthesia, Motion Sickness Additional Past Anesthesia/Blood Transfusion Reaction / Comment(s): states "during procedure of checking something on my left lung,I turned blue and I was brought right back out anesthesia and proc was cancelled". 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 No animal exposures. He has stopped smoking. He has a history of heavy alcohol use but that's been many years. Denies recreational drug use Smoking Status: Former smoker Past Alcohol Use History: Heavy, None Reported Additional Past Alcohol Use History / Comment(s): Started smoking age 19(1974) smoked 1 ppd and quit 1987 stopped drinking 05-04-18 Past Drug Use History: Marijuana - Past Family History Mother Family Medical History: Asthma Additional Family Medical History / Comment(s): at age 62 Father Family Medical History: CVA/TIA Additional Family Medical History / Comment(s): at age 90 Medications and Allergies Home Medications Medication Instructions Recorded Confirmed Type Montelukast [Singulair] 10 mg PO DAILY 03/16/14 01/30/19 History Metoprolol Tartrate 25 mg PO DAILY 04/24/18 01/30/19 History Sertraline [Zoloft] 100 mg PO DAILY 11/04/18 01/30/19 History Tamsulosin [Flomax] 0.4 mg PO DAILY #10 cap 11/04/18 01/30/19 Rx hydrALAZINE HCL [Apresoline] 25 mg PO BID 11/04/18 01/30/19 History oxyCODONE-APAP 10-325MG [Percocet 1 tab PO QID PRN 11/04/18 01/30/19 History 10-325 mg] Eszopiclone [Lunesta] 2 mg PO HS PRN 12/29/18 01/30/19 History Finasteride [Proscar] 5 mg PO DAILY 12/29/18 01/30/19 History amLODIPine [Norvasc] 5 mg PO DAILY 12/29/18 01/30/19 History Allergies Allergy/AdvReac Type Severity Reaction Status Date / Time peanut Allergy alg testing Verified 01/30/19 07:33 pollen extracts Allergy Unknown Verified 01/30/19 07:33 DUST Allergy alg testing Uncoded 01/30/19 07:33 Physical Exam Vitals: Vital Signs Temp Pulse Pulse Resp BP BP Pulse Ox 01/30/19 15:50 79 01/30/19 15:40 79 93 L 01/30/19 15:00 97.4 F L 63 16 119/75 92 L 01/30/19 12:50 76 01/30/19 12:40 72 01/30/19 08:35 75 01/30/19 08:27 75 01/30/19 07:40 97.7 F 69 18 143/84 96 01/30/19 05:41 62 01/30/19 05:33 76 01/30/19 03:32 96 01/30/19 03:28 98.6 F 68 18 146/91 97 Intake and Output 01/30/19 01/30/19 01/30/19 06:59 14:59 22:59 Other: Voiding Method Toilet # Voids 1 # Bowel Movements 0 Weight 97.069 kg - Constitutional General appearance: cooperative, disheveled, morbidly obese - EENT Eyes: EOMI, PERRLA, normal appearance Ears: bilateral: normal - Neck Carotids: bilateral: upstroke normal Thyroid: bilateral: normal size - Respiratory Respiratory: bilateral: diminished, wheezing, prolonged expiration, negative: d ullness, rales, rhonchi - Cardiovascular Rhythm: regular Heart sounds: normal: S1, S2 - Gastrointestinal General gastrointestinal: distended, soft - Neurologic Neurologic: CNII-XII intact - Musculoskeletal Musculoskeletal: gait normal, generalized weakness, strength equal bilaterally - Psychiatric Psychiatric: A&O x's 3, appropriate affect, intact judgment & insight Results - Laboratory Findings CBC and BMP: 01/30/19 04:55 01/30/19 04:55 Abnormal lab findings: Abnormal Labs 01/30/19 01/30/19 01/30/19 04:55 04:55 11:57 RBC 4.04 L Hgb 12.5 L D Hct 37.4 L Plt Count 134 L Eosinophils # 1.0 H Potassium 3.2 L Glucose 128 H POC Glucose (mg/dL) 128 H Magnesium 1.4 L AST 16 L Total Protein 5.2 L Albumin 3.2 L Urine Protein Urine Glucose (UA) Urine Ketones 01/30/19 01/30/19 16:45 17:22 RBC Hgb Hct Plt Count Eosinophils # Potassium Glucose POC Glucose (mg/dL) 222 H Magnesium AST Total Protein Albumin Urine Protein Trace H Urine Glucose (UA) 4+ H Urine Ketones Trace H - Diagnostic Findings Chest x-ray: report reviewed, image reviewed (No acute infiltrate identified) Assessment and Plan Assessment: Acute COPD exacerbation Tracheobronchitis Hypertension hypertensive cardiovascular disease Morbid obesity Obstructive sleep apnea Chronic pain syndrome related to chronic back pain and neck pain Plan: Bronchodilator IV steroid Broad-spectrum antibiotics DVT prophylaxis Increase activity as tolerated Pain management Further recommendations pending plan of care as per clinical response of the patient Time with Patient: Greater than 30
--- NOTE | 2019-01-30 17:41 | HP ---
HISTORY AND PHYSICAL DATE OF SERVICE: 01/30/2019 CHIEF COMPLAINT: Shortness of breath, cough, wheezing and as well as diffuse aches and pains and diarrhea. HISTORY OF PRESENT ILLNESS: This 63-year-old gentleman with a past medical history of multiple medical problems, atrial flutter, history of COPD, GERD, hypertension, DJD, pneumonia, sleep apnea, history of anxiety, bipolar depression, being followed by Dr. Shah in the outpatient setting was complaining of increasing shortness of breath, cough, wheezing. The patient also had some nausea, diarrhea. Patient also complaining of diffuse aches and pains. The patient also had chronic pain syndrome. Patient came to [facility] and was admitted for further evaluation and treatment. At the time of admission in the ER, a chest x-ray was done which showed no acute cardiopulmonary abnormality. There is no history of fever, rigors or chills. No history of headache, loss of consciousness, seizures. PAST MEDICAL HISTORY: History of atrial flutter, history of chest pain, history of COPD, GERD, hypertension, history of DJD, history pneumonia, sleep apnea, bipolar depression. MEDICATIONS: Prior to admission include home medications are: 1. Oxycodone. 2. Percocet 10 mg q.i.d. p.r.n. 3. Apresoline 25 mg p.o. b.i.d. 4. Norvasc 5 mg p.o. daily. 5. Zoloft 100 mg p.o. daily. 6. Proscar 5 mg p.o. daily. 7. Flomax 0.4 daily. 8. Singular 10 mg p.o. daily. 9. Metoprolol 25 mg p.o. daily. 10.Lunesta 2 mg q.h.s. p.r.n. ALLERGIES: PEANUTS, POLLEN EXTRACT, DUST. FAMILY HISTORY: History of asthma. SOCIAL HISTORY: Previous history of smoking, occasional THC. REVIEW OF SYSTEMS: ENT: Diminished vision. Diminished hearing. CARDIOVASCULAR: No angina. No palpitations. RESPIRATORY: As mentioned earlier. GI: No nausea or vomiting. no dysuria. NERVOUS SYSTEM: No numbness or weakness. ALLERGY/IMMUNOLOGY: No asthma or hayfever. MUSCULOSKELETAL as mentioned earlier. HEMATOLOGY/ONCOLOGY: No history of anemia. ENDOCRINE: No history of diabetes or hypothyroidism. CONSTITUTIONAL: As mentioned earlier. DERMATOLOGY: Negative. RHEUMATOLOGY negative. PSYCHIATRY as mentioned earlier. PHYSICAL EXAMINATION: Alert and oriented times three. Pulse 79. Blood pressure 119/75, respirations 16, temp 97.4, pulse ox 98% on room air. HEENT: Conjunctivae normal. Oral mucosa moist. NECK is no jugular venous distention. No carotid bruit. No lymph node enlargement. Cardiovascular system: S1, S2 muffled. No S3, no S4. RESPIRATORY: Breath sounds diminished in the bases. Few scattered rhonchi. No crackles. ABDOMEN: Soft, nontender. No mass palpable. LEGS: No edema. No swelling. NERVOUS SYSTEM: Higher functions as mentioned earlier, moves all 4 limbs. No focal motor or sensory deficits. LYMPHATICS: No lymph nodes palpable in the neck, axilla or groin. SKIN: No ulcer, rash or bleeding. JOINTS: No active deforming arthropathy. Diffusely weak. Some tenderness also present. LABS: At this time shows WBC 7.2, hemoglobin 12.5, sodium 134, glucose 128 and magnesium is 1.4. Albumin is 3.2. ASSESSMENT: 1. Chronic obstructive pulmonary disease acute exacerbation with acute purulent tracheobronchitis. 2. Hypokalemia. 3. Acute on chronic pain syndrome. 4. Hypomagnesemia. 5. Hypoalbuminemia. 6. Anemia, normocytic anemia of chronic disease. 7. Mild thrombocytopenia. 8. History of atrial flutter. 9. History of asthma. 10.History of chronic obstructive pulmonary disease. 11.Gastroesophageal reflux disease. 12.Hypertension. 13.History of degenerative joint disease. 14.History of sleep apnea. 15.History of adenoidectomy. 16.History of bowel resection. 17.History of anxiety/bipolar depression/ panic disorder. 18.Remote history of nicotine dependence. 19.History of THC. RECOMMENDATIONS AND DISCUSSION: In this 63-year-old gentleman who presented with multiple complex medical issues, we will monitor the patient closely, continue the current medications, management and symptomatic treatment. We will initiate bronchodilators. On empiric antibiotics. Repeat labs. Supplement potassium and magnesium. The prognosis guarded because of multiple complex medical issues. Further recommendations to follow. Dr. Lobato will be consulted who is the physician. See orders for details. MMODL / IJN: [id number] / [facility]
[2019-01-30] MEDS: SYMBICORT 160-4.5 MCG INHALER INHALATION SCH (19:45)
[2019-01-30] MEDS: HEPARIN SODIUM,PORCINE 5,000 UNIT/ML 1 ML VIAL SQ SCH (19:50)
[2019-01-30 20:24] LABS: Glucose,Whole Blood 296 mg/dL (75-99)
[2019-01-31] MEDS: IPRATROPIUM-ALBUTEROL 3 ML NEB INHALATION PRN ×2 (00:53→04:40)
[2019-01-31] MEDS: oxyCODONE-APAP 10-325MG 1 EACH TAB PO PRN ×4 (02:01→20:49)
[2019-01-31] MEDS: HYDROmorphone 0.5 MG/0.5 ML SYRINGE IVP PRN ×4 (05:24→23:48)
[2019-01-31] MEDS: methylPREDNISolone SOD SUCCI 125 MG/2 ML VIAL IV SCH ×4 (05:26→22:59)
[2019-01-31 07:14] LABS: Glucose,Whole Blood 151 mg/dL (75-99)
[2019-01-31] MEDS: IPRATROPIUM-ALBUTEROL 3 ML NEB INHALATION SCH ×4 (07:44→19:20)
[2019-01-31] MEDS: SYMBICORT 160-4.5 MCG INHALER INHALATION SCH ×2 (07:44→19:20)
[2019-01-31] MEDS: FINASTERIDE 5 MG TAB PO SCH (08:45)
[2019-01-31] MEDS: TAMSULOSIN 0.4 MG CAP.ER.24H PO SCH (08:45)
[2019-01-31] MEDS: HEPARIN SODIUM,PORCINE 5,000 UNIT/ML 1 ML VIAL SQ SCH ×2 (08:45→19:58)
[2019-01-31] MEDS: CYCLOBENZAPRINE 10 MG TAB PO SCH ×3 (08:45→20:00)
[2019-01-31] MEDS: amLODIPine 5 MG TAB PO SCH (08:45)
[2019-01-31] MEDS: MONTELUKAST 10 MG TAB PO SCH (08:45)
[2019-01-31] MEDS: SERTRALINE 100 MG TAB PO SCH (08:45)
[2019-01-31] MEDS: hydrALAZINE HCL 25 MG TAB PO SCH ×2 (08:45→19:59)
[2019-01-31] MEDS: METOPROLOL TARTRATE 25 MG TAB PO SCH (08:46)
[2019-01-31] MEDS: PANTOPRAZOLE 40 MG TABLET PO SCH (08:46)
[2019-01-31] MEDS: INSULIN ASPART (NovoLOG) 100 UNIT/ML VIAL SQ SCH ×4 (08:49→20:49)
[2019-01-31 09:34] LABS: Basophils % (A) 0 %; Eosinophils # (A) 0.1 k/uL (0-0.7); Eosinophils % (A) 1 %; HCT 39.5 % (39.0-53.0); HGB 12.6 gm/dL (13.0-17.5); Hypochromasia Slight; Lymphocytes # (A) 0.6 k/uL (1.0-4.8); Lymphocytes % (A) 4 %; Monocytes # (A) 0.4 k/uL (0-1.0); Monocytes % (A) 3 %; Neutrophils # (A) 13.7 k/uL (1.3-7.7); Neutrophils % (A) 92 %; Platelet Count 135 k/uL (150-450); RBC 4.07 m/uL (4.30-5.90); RDW 15.6 % (11.5-15.5); WBC 14.9 k/uL (3.8-10.6)
[2019-01-31 09:52] LABS: Calcium 8.9 mg/dL (8.4-10.2); Magnesium 1.5 mg/dL (1.6-2.3); Potassium 3.9 mmol/L (3.5-5.1)
[2019-01-31] MEDS ORDERED: Magnesium Replacement Protocol 1 EACH MISC MISCELLANE PRN (10:46)
[2019-01-31] MEDS: MAGNESIUM SULFATE-D5W PMX 1 GM in DEXTROSE/WATER 1 100ML.BAG IVPB SCH ×2 (11:30→12:53)
[2019-01-31] MEDS: MULTIVITAMINS, THERA 1 EACH TAB PO SCH (12:30)
[2019-01-31 12:38] LABS: Glucose,Whole Blood 136 mg/dL (75-99)
--- NOTE | 2019-01-31 14:24 | P.PN ---
Subjective Progress Note Date: 01/31/19 Principal diagnosis: Acute COPD exacerbation, tracheobronchitis, probably chronic pain syndrome, obstructive sleep apnea, 01/31/2019, patient seen eval reexamined during the rounds doing well denies any chest pain and discomfort discomfort breathing more comfortably and is still have issues associated back and neck pain patient is asking for his pain management doctor and Dr. Marcus to see we'll consult Dr. Marcus, This is a 63-year-old male well-known to me had the end-stage lung disease second to severe COPD also has component of chronic asthmatic bronchitis patient was in a stable state of health until about 2-3 days ago started getting increasing shortness of breath cough and congestion and producing greenish sputum with those problem came into the hospital she he has chronic pain and his been in chronic pain medicine as well he follows Dr. Marcus for pain management, patient is scheduled for outpatient PFT and sleep study at this point with Objective - Vital Signs Vital signs: Vital Signs Temp 97.0 F L 01/31/19 13:01 Pulse 63 01/31/19 13:01 Resp 16 01/31/19 13:01 BP 123/70 01/31/19 13:01 Pulse Ox 95 01/31/19 13:01 Intake & Output 01/30/19 01/31/19 01/31/19 18:59 06:59 18:59 Other: Voiding Method Toilet Toilet Urinal # Voids 1 2 3 # Bowel Movements 0 0 - Exam - Constitutional General appearance: cooperative, disheveled, morbidly obese - EENT Eyes: EOMI, PERRLA, normal appearance Ears: bilateral: normal - Neck Carotids: bilateral: upstroke normal Thyroid: bilateral: normal size - Respiratory Respiratory: bilateral: diminished, wheezing, prolonged expiration, negative: dullness, rales, rhonchi - Cardiovascular Rhythm: regular Heart sounds: normal: S1, S2 - Gastrointestinal General gastrointestinal: distended, soft - Neurologic Neurologic: CNII-XII intact - Musculoskeletal Musculoskeletal: gait normal, generalized weakness, strength equal bilaterally - Psychiatric Psychiatric: A&O x's 3, appropriate affect, intact judgment & insight - Labs CBC & Chem 7: 01/31/19 09:11 01/31/19 09:11 Labs: Abnormal Lab Results - Last 24 Hours (Table) 07/08/2001/30/19 01/30/19 Range/Units 16:45 17:22 20:23 WBC (3.8-10.6) k/uL RBC (4.30-5.90) m/uL Hgb (13.0-17.5) gm/dL RDW (11.5-15.5) % Plt Count (150-450) k/uL Neutrophils # (1.3-7.7) k/uL Lymphocytes # (1.0-4.8) k/uL BUN (9-20) mg/dL Glucose (74-99) mg/dL POC Glucose (mg/dL) 222 H 296 H (75-99) mg/dL Magnesium (1.6-2.3) mg/dL Urine Protein Trace H (Negative) Urine Glucose (UA) 4+ H (Negative) Urine Ketones Trace H (Negative) 01/31/19 01/31/19 01/31/19 Range/Units 07:12 09:11 09:11 WBC 14.9 H (3.8-10.6) k/uL RBC 4.07 L (4.30-5.90) m/uL Hgb 12.6 L (13.0-17.5) gm/dL RDW 15.6 H (11.5-15.5) % Plt Count 135 L (150-450) k/uL Neutrophils # 13.7 H (1.3-7.7) k/uL Lymphocytes # 0.6 L (1.0-4.8) k/uL BUN 24 H (9-20) mg/dL Glucose 183 H (74-99) mg/dL POC Glucose (mg/dL) 151 H (75-99) mg/dL Magnesium 1.5 L (1.6-2.3) mg/dL Urine Protein (Negative) Urine Glucose (UA) (Negative) Urine Ketones (Negative) 01/31/19 Range/Units 12:34 WBC (3.8-10.6) k/uL RBC (4.30-5.90) m/uL Hgb (13.0-17.5) gm/dL RDW (11.5-15.5) % Plt Count (150-450) k/uL Neutrophils # (1.3-7.7) k/uL Lymphocytes # (1.0-4.8) k/uL BUN (9-20) mg/dL Glucose (74-99) mg/dL POC Glucose (mg/dL) 136 H (75-99) mg/dL Magnesium (1.6-2.3) mg/dL Urine Protein (Negative) Urine Glucose (UA) (Negative) Urine Ketones (Negative) Assessment and Plan Assessment: Acute COPD exacerbation Tracheobronchitis Hypertension hypertensive cardiovascular disease Morbid obesity Obstructive sleep apnea Chronic pain syndrome related to chronic back pain and neck pain Plan: Bronchodilator IV steroid Broad-spectrum antibiotics DVT prophylaxis Increase activity as tolerated Pain management Further recommendations pending plan of care as per clinical response of the patient Time with Patient: Greater than 30
--- NOTE | 2019-01-31 15:53 | P.PN ---
Subjective Progress Note Date: 01/31/19 Principal diagnosis: This is a 63-year-old male who was admitted to the hospital for acute COPD exacerbation, tracheobronchitis, chronic pain , and sleep obstructive apnea. Patient is closely being monitored at this time and states he had a rough night with difficulty breathing and his pain in the neck and back that is severe in nature. Patient is denying any chest pain or palpitations at this time. No fever. Physical exam: On exam patient is alert and oriented 3 and resting comfortably in bed. Current vitals are 97.5F, pulse 73, respirations 16, blood pressure 136/82, pulse ox 94% on 2 L nasal cannula. HEENT: Conjunctiva normal, PERRLA Neck: No jugular vein distention, supple Cardiovascular: Regular rate and rhythm, S1, S2 muffled Respiratory: Diminished lung sounds bilaterally with expiratory wheezing noted. No rales or rhonchi noted Abdomen: Soft, nontender Nervous system: No focal deficits Labs: WBCs 14.9, hemoglobin 12.6 Assessment: 1. Acute COPD exacerbation 2. Tracheobronchitis 3. Hypertension. 4. Morbid obesity 5. Obstructive sleep apnea 6. Chronic pain of the neck and back Recommendations and discussions: We will continue to monitor the patient closely, continue with current medications, management, and symptomatic treatment. Continue with bronchodilators and breathing treatments, await repeat labs, and await pulmonary consult with Dr. Cerna at this time. Prognosis guarded due to multiple complex medical issues. Further recommendations to follow. Objective - Vital Signs Vital signs: Vital Signs Temp 97.0 F L 01/31/19 13:01 Pulse 78 01/31/19 15:32 Resp 20 01/31/19 15:01 BP 141/75 01/31/19 15:01 Pulse Ox 92 L 01/31/19 15:32 Intake & Output 01/30/19 01/31/19 01/31/19 18:59 06:59 18:59 Other: Voiding Method Toilet Toilet Urinal # Voids 1 2 3 # Bowel Movements 0 0 - Labs CBC & Chem 7: 01/31/19 09:11 01/31/19 09:11 Labs: Abnormal Lab Results - Last 24 Hours (Table) 01/30/19 01/30/19 01/30/19 Range/Units 16:45 17:22 20:23 WBC (3.8-10.6) k/uL RBC (4.30-5.90) m/uL Hgb (13.0-17.5) gm/dL RDW (11.5-15.5) % Plt Count (150-450) k/uL Neutrophils # (1.3-7.7) k/uL Lymphocytes # (1.0-4.8) k/uL BUN (9-20) mg/dL Glucose (74-99) mg/dL POC Glucose (mg/dL) 222 H 296 H (75-99) mg/dL Magnesium (1.6-2.3) mg/dL Urine Protein Trace H (Negative) Urine Glucose (UA) 4+ H (Negative) Urine Ketones Trace H (Negative) 01/31/19 01/31/19 01/31/19 Range/Units 07:12 09:11 09:11 WBC 14.9 H (3.8-10.6) k/uL RBC 4.07 L (4.30-5.90) m/uL Hgb 12.6 L (13.0-17.5) gm/dL RDW 15.6 H (11.5-15.5) % Plt Count 135 L (150-450) k/uL Neutrophils # 13.7 H (1.3-7.7) k/uL Lymphocytes # 0.6 L (1.0-4.8) k/uL BUN 24 H (9-20) mg/dL Glucose 183 H (74-99) mg/dL POC Glucose (mg/dL) 151 H (75-99) mg/dL Magnesium 1.5 L (1.6-2.3) mg/dL Urine Protein (Negative) Urine Glucose (UA) (Negative) Urine Ketones (Negative) 01/31/19 Range/Units 12:34 WBC (3.8-10.6) k/uL RBC (4.30-5.90) m/uL Hgb (13.0-17.5) gm/dL RDW (11.5-15.5) % Plt Count (150-450) k/uL Neutrophils # (1.3-7.7) k/uL Lymphocytes # (1.0-4.8) k/uL BUN (9-20) mg/dL Glucose (74-99) mg/dL POC Glucose (mg/dL) 136 H (75-99) mg/dL Magnesium (1.6-2.3) mg/dL Urine Protein (Negative) Urine Glucose (UA) (Negative) Urine Ketones (Negative)
[2019-01-31] MEDS: BENZOCAINE/MENTHOL LOZENG 1 EACH LOZENGE MUCOUS MEM PRN ×2 (16:41→22:57)
--- NOTE | 2019-01-31 17:05 | P.CONS ---
History of Present Illness - Chief Complaint Chronic pain management and history of recent fall - History of Present Illness I had the opportunity to see patient for inpatient rehab consultation with regard to chronic pain management, patient well known to me. He was admitted to [facility] January 30 with COPD exacerbation. Chest x-ray done and negative. Patient did report history of recent fall. He is on pain management of myself of Percocet 10 Q6. Current management includes Percocet as well as Dilaudid. At this time we'll prescribe PT and OT evaluations for standing safety and possible equipment needs such as walker. Review of Systems Review of systems: ENT: Denies sneezes or discharge. Eyes: Denies discharge or photophobia. Cardiac: Denies chest pain or palpitation. Pulmonary: At least moderate or shortness of breath. Gastrointestinal: Denies nausea, emesis, constipation, diarrhea. Genitourinary: Denies discharge or frequency. Musculoskeletal: Long-standing back pain. Neurologic: Denies motor or sensory change. Endocrine: Denies shakes or sweats. Oncology: Denies cancers. Dermatologic: Denies rash, itching, pruritus. ALLERGY/immunology: Denies sneezes, rashes. Past Medical History Past Medical History: Atrial Flutter, Asthma, Chest Pain / Angina, COPD, GERD/Reflux, Hypertension, Osteoarthritis (OA), Pneumonia, Sleep Apnea/CPAP/BIPAP Additional Past Medical History / Comment(s): Back problems History of Any Multi-Drug Resistant Organisms: None Reported Past Surgical History: Adenoidectomy, Bowel Resection, Cholecystectomy Additional Past Surgical History / Comment(s): Nasal Past Anesthesia/Blood Transfusion Reactions: Previous Problems w/ Anesthesia, Motion Sickness Additional Past Anesthesia/Blood Transfusion Reaction / Comm: states "during procedure of checking something on my left lung,I turned blue and I was brought right back out anesthesia and proc was cancelled". 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 No animal exposures. He has stopped smoking. He has a history of heavy alcohol use but that's been many years. Denies recreational drug use Smoking Status: Former smoker Past Alcohol Use History: Heavy, None Reported Additional Past Alcohol Use History / Comment(s): Started smoking age 19(1974) smoked 1 ppd and quit 1987 stopped drinking 10-3-18 Past Drug Use History: Marijuana - Past Family History Mother Family Medical History: Asthma Additional Family Medical History / Comment(s): at age 62 Father Family Medical History: CVA/TIA Additional Family Medical History / Comment(s): at age 90 Medications and Allergies Home Medications Medication Instructions Recorded Confirmed Type Montelukast [Singulair] 10 mg PO DAILY 03/16/14 01/30/19 History Metoprolol Tartrate 25 mg PO DAILY 04/24/18 01/30/19 History Sertraline [Zoloft] 100 mg PO DAILY 11/04/18 01/30/19 History Tamsulosin [Flomax] 0.4 mg PO DAILY #10 cap 11/04/18 01/30/19 Rx hydrALAZINE HCL [Apresoline] 25 mg PO BID 11/04/18 01/30/19 History oxyCODONE-APAP 10-325MG [Percocet 1 tab PO QID PRN 11/04/18 01/30/19 History 10-325 mg] Eszopiclone [Lunesta] 2 mg PO HS PRN 12/29/18 01/30/19 History Finasteride [Proscar] 5 mg PO DAILY 12/29/18 01/30/19 History amLODIPine [Norvasc] 5 mg PO DAILY 12/29/18 01/30/19 History Allergies Allergy/AdvReac Type Severity Reaction Status Date / Time peanut Allergy alg testing Verified 01/30/19 07:33 pollen extracts Allergy Unknown Verified 01/30/19 07:33 DUST Allergy alg testing Uncoded 01/30/19 07:33 Physical Exam Vitals: Vital Signs Temp Pulse Pulse Resp BP Pulse Ox 01/31/19 15:42 76 01/31/19 15:32 78 92 L 01/31/19 15:01 78 20 141/75 95 01/31/19 13:01 97.0 F L 63 16 123/70 95 01/31/19 11:26 72 01/31/19 11:17 72 01/31/19 07:56 68 01/31/19 07:46 64 95 01/31/19 04:49 74 01/31/19 04:40 72 01/31/19 04:25 97.5 F L 73 16 136/82 94 L 01/31/19 01:05 75 01/31/19 00:58 94 L 01/31/19 00:53 75 01/30/19 20:25 97.5 F L 76 16 121/71 94 L 01/30/19 20:02 75 01/30/19 19:48 71 Intake and Output 01/31/19 01/31/19 01/31/19 06:59 14:59 22:59 Other: Voiding Method Toilet Urinal # Voids 2 3 # Bowel Movements 0 Skin: Good color, texture, turgor. General: Medium build and distressful appearance, presumably related to shortness of breath. Head: Normocephalic, atraumatic. Eyes: Symmetric. Pupils equal round. Ears: Symmetric. Hearing within normal limits. Mouth: Clear. Neck: Supple. Carotid without bruit. Cardiac: Regular rate and rhythm. Lungs: Clear anteriorly and posteriorly. Abdomen: Soft active nontender. Extremities: Normal tone. Neurological: Mental status: Alert, cooperative, pleasant. Cranial nerves: Symmetric facial tone and trapezius. Motor: Normal strength and isolation all 4 limbs. Sensation: Intact throughout. DTRs: Symmetric and equal throughout. Mobility: Sits without assistance or verbal cueing or loss of balance. Results CBC & Chem 7: 01/31/19 09:11 01/31/19 09:11 Labs: Abnormal Lab Results - Last 24 Hours (Table) 01/30/19 01/30/19 01/30/19 Range/Units 16:45 17:22 20:23 WBC (3.8-10.6) k/uL RBC (4.30-5.90) m/uL Hgb (13.0-17.5) gm/dL RDW (11.5-15.5) % Plt Count (150-450) k/uL Neutrophils # (1.3-7.7) k/uL Lymphocytes # (1.0-4.8) k/uL BUN (9-20) mg/dL Glucose (74-99) mg/dL POC Glucose (mg/dL) 222 H 296 H (75-99) mg/dL Magnesium (1.6-2.3) mg/dL Urine Protein Trace H (Negative) Urine Glucose (UA) 4+ H (Negative) Urine Ketones Trace H (Negative) 01/31/19 01/31/19 01/31/19 Range/Units 07:12 09:11 09:11 WBC 14.9 H (3.8-10.6) k/uL RBC 4.07 L (4.30-5.90) m/uL Hgb 12.6 L (13.0-17.5) gm/dL RDW 15.6 H (11.5-15.5) % Plt Count 135 L (150-450) k/uL Neutrophils # 13.7 H (1.3-7.7) k/uL Lymphocytes # 0.6 L (1.0-4.8) k/uL BUN 24 H (9-20) mg/dL Glucose 183 H (74-99) mg/dL POC Glucose (mg/dL) 151 H (75-99) mg/dL Magnesium 1.5 L (1.6-2.3) mg/dL Urine Protein (Negative) Urine Glucose (UA) (Negative) Urine Ketones (Negative) 01/31/19 Range/Units 12:34 WBC (3.8-10.6) k/uL RBC (4.30-5.90) m/uL Hgb (13.0-17.5) gm/dL RDW (11.5-15.5) % Plt Count (150-450) k/uL Neutrophils # (1.3-7.7) k/uL Lymphocytes # (1.0-4.8) k/uL BUN (9-20) mg/dL Glucose (74-99) mg/dL POC Glucose (mg/dL) 136 H (75-99) mg/dL Magnesium (1.6-2.3) mg/dL Urine Protein (Negative) Urine Glucose (UA) (Negative) Urine Ketones (Negative) Assessment and Plan (1) COPD exacerbation Current Visit: Yes Status: Acute Code(s): J44.1 - CHRONIC OBSTRUCTIVE PULMONARY DISEASE W (ACUTE) EXACERBATION SNOMED Code(s): 470616866 (2) Adult respiratory distress syndrome Current Visit: No Status: Acute Code(s): J80 - ACUTE RESPIRATORY DISTRESS SYNDROME SNOMED Code(s): 21945910 Plan: Impression: 1. Medical debility. 2. COPD exacerbation. 3. Adult respiratory distress syndrome. 4. Chronic pain syndrome. 5. Low back pain. Parkinson plan: Patient did report history of recent fall 1. With PT and OT evaluate for possible need of adaptive equipment such as walker. I discussed with patient that I'm reluctant to advance medication due to history of recent fall and his age of 63 years. Not mentioned, that concern of mine his been hospital admissions for purpose of pain medication adjustments.
[2019-01-31 17:07] LABS: Glucose,Whole Blood 142 mg/dL (75-99)
[2019-01-31 20:12] LABS: Glucose,Whole Blood 155 mg/dL (75-99)
[2019-02-01] MEDS: IPRATROPIUM-ALBUTEROL 3 ML NEB INHALATION PRN ×2 (02:30→23:15)
[2019-02-01] MEDS: oxyCODONE-APAP 10-325MG 1 EACH TAB PO PRN ×4 (03:04→21:13)
[2019-02-01] MEDS: HYDROmorphone 0.5 MG/0.5 ML SYRINGE IVP PRN ×4 (05:42→23:32)
[2019-02-01] MEDS: methylPREDNISolone SOD SUCCI 125 MG/2 ML VIAL IV SCH ×4 (05:42→23:32)
[2019-02-01 07:17] LABS: Glucose,Whole Blood 116 mg/dL (75-99)
[2019-02-01] MEDS: INSULIN ASPART (NovoLOG) 100 UNIT/ML VIAL SQ SCH ×4 (07:20→21:15)
[2019-02-01] MEDS: IPRATROPIUM-ALBUTEROL 3 ML NEB INHALATION SCH ×4 (07:31→19:31)
[2019-02-01] MEDS: SYMBICORT 160-4.5 MCG INHALER INHALATION SCH ×2 (07:32→19:32)
[2019-02-01] MEDS: CYCLOBENZAPRINE 10 MG TAB PO SCH ×3 (08:22→21:13)
[2019-02-01] MEDS: MONTELUKAST 10 MG TAB PO SCH (08:22)
[2019-02-01] MEDS: METOPROLOL TARTRATE 25 MG TAB PO SCH (08:22)
[2019-02-01] MEDS: SERTRALINE 100 MG TAB PO SCH (08:22)
[2019-02-01] MEDS: amLODIPine 5 MG TAB PO SCH (08:22)
[2019-02-01] MEDS: FINASTERIDE 5 MG TAB PO SCH (08:22)
[2019-02-01] MEDS: TAMSULOSIN 0.4 MG CAP.ER.24H PO SCH (08:22)
[2019-02-01] MEDS: PANTOPRAZOLE 40 MG TABLET PO SCH (08:22)
[2019-02-01] MEDS: HEPARIN SODIUM,PORCINE 5,000 UNIT/ML 1 ML VIAL SQ SCH ×2 (08:22→21:16)
[2019-02-01] MEDS: hydrALAZINE HCL 25 MG TAB PO SCH ×2 (08:22→21:13)
[2019-02-01 09:12] LABS: Basophils % (A) 0 %; Eosinophils % (A) 0 %; HCT 36.2 % (39.0-53.0); HGB 11.5 gm/dL (13.0-17.5); Hypochromasia Slight; Lymphocytes # (A) 0.7 k/uL (1.0-4.8); Lymphocytes % (A) 6 %; MCH 31.2 pg (25.0-35.0); MCHC 31.8 g/dL (31.0-37.0); MCV 98.1 fL (80.0-100.0); Macrocytosis Slight; Mean Platelet Volume 8.2; Monocytes # (A) 0.4 k/uL (0-1.0); Monocytes % (A) 3 %; Neutrophils # (A) 10.7 k/uL (1.3-7.7); Neutrophils % (A) 90 %; Platelet Count 142 k/uL (150-450); RBC 3.69 m/uL (4.30-5.90); WBC 11.8 k/uL (3.8-10.6)
[2019-02-01 09:32] LABS: Magnesium 2.2 mg/dL (1.6-2.3); Potassium 4.2 mmol/L (3.5-5.1)
[2019-02-01] MEDS: MULTIVITAMINS, THERA 1 EACH TAB PO SCH (11:38)
--- NOTE | 2019-02-01 12:34 | P.PN ---
Subjective Progress Note Date: 02/01/19 Principal diagnosis: Acute COPD exacerbation, tracheobronchitis, probably chronic pain syndrome, obstructive sleep apnea, 02/01/2019, patient seen and evaluated examined during non-denies any chest pain shortness of breath breathing well on activity and exertion get short of breath patient has been seen by his pain management 01/31/2019, patient seen eval reexamined during the rounds doing well denies any chest pain and discomfort discomfort breathing more comfortably and is still have issues associated back and neck pain patient is asking for his pain management doctor and Dr. Marcus to see we'll consult Dr. Marcus, This is a 63-year-old male well-known to me had the end-stage lung disease second to severe COPD also has component of chronic asthmatic bronchitis patient was in a stable state of health until about 2-3 days ago started getting increasing shortness of breath cough and congestion and producing greenish sputum with those problem came into the hospital she he has chronic pain and his been in chronic pain medicine as well he follows Dr. Marcus for pain management, patient is scheduled for outpatient PFT and sleep study at this point with Objective - Vital Signs Vital signs: Vital Signs Temp 97.7 F 02/01/19 05:40 Pulse 62 02/01/19 11:28 Resp 18 02/01/19 05:40 BP 133/77 02/01/19 05:40 Pulse Ox 96 02/01/19 07:34 Intake & Output 01/31/19 02/01/19 02/01/19 18:59 06:59 18:59 Output Total 600 Balance -600 Output: Urine 600 Other: Voiding Method Urinal # Voids 3 # Bowel Movements 0 2 - Exam - Constitutional General appearance: cooperative, disheveled, morbidly obese - EENT Eyes: EOMI, PERRLA, normal appearance Ears: bilateral: normal - Neck Carotids: bilateral: upstroke normal Thyroid: bilateral: normal size - Respiratory Respiratory: bilateral: diminished, wheezing, prolonged expiration, negative: dullness, rales, rhonchi - Cardiovascular Rhythm: regular Heart sounds: normal: S1, S2 - Gastrointestinal General gastrointestinal: distended, soft - Neurologic Neurologic: CNII-XII intact - Musculoskeletal Musculoskeletal: gait normal, generalized weakness, strength equal bilaterally - Psychiatric Psychiatric: A&O x's 3, appropriate affect, intact judgment & insight - Labs CBC & Chem 7: 02/01/19 08:03 02/01/19 08:03 Labs: Abnormal Lab Results - Last 24 Hours (Table) 01/31/19 01/31/19 01/31/19 Range/Units 12:34 17:05 20:11 WBC (3.8-10.6) k/uL RBC (4.30-5.90) m/uL Hgb (13.0-17.5) gm/dL Hct (39.0-53.0) % RDW (11.5-15.5) % Plt Count (150-450) k/uL Neutrophils # (1.3-7.7) k/uL Lymphocytes # (1.0-4.8) k/uL Chloride (98-107) mmol/L BUN (9-20) mg/dL Creatinine (0.66-1.25) mg/dL Glucose (74-99) mg/dL POC Glucose (mg/dL) 136 H 142 H 155 H (75-99) mg/dL 02/01/19 02/01/19 02/01/19 Range/Units 07:10 08:03 08:03 WBC 11.8 H (3.8-10.6) k/uL RBC 3.69 L (4.30-5.90) m/uL Hgb 11.5 L (13.0-17.5) gm/dL Hct 36.2 L (39.0-53.0) % RDW 16.0 H (11.5-15.5) % Plt Count 142 L (150-450) k/uL Neutrophils # 10.7 H (1.3-7.7) k/uL Lymphocytes # 0.7 L (1.0-4.8) k/uL Chloride 108 H (98-107) mmol/L BUN 40 H (9-20) mg/dL Creatinine 1.27 H (0.66-1.25) mg/dL Glucose 133 H (74-99) mg/dL POC Glucose (mg/dL) 116 H (75-99) mg/dL Assessment and Plan Assessment: Acute COPD exacerbation Tracheobronchitis Hypertension hypertensive cardiovascular disease Morbid obesity Obstructive sleep apnea Chronic pain syndrome related to chronic back pain and neck pain Plan: Bronchodilator IV steroid Broad-spectrum antibiotics DVT prophylaxis Increase activity as tolerated Pain management Further recommendations pending plan of care as per clinical response of the patient
[2019-02-01 12:47] LABS: Glucose,Whole Blood 143 mg/dL (75-99)
--- NOTE | 2019-02-01 17:08 | P.PN ---
Subjective Progress Note Date: 02/01/19 Principal diagnosis: This patient is a 63-year-old male that was admitted to the hospital for acute COPD exacerbation and chronic pain. Patient is being closely monitored at this time and states that his breathing has gotten better and is able to ambulate farther on room air, but his pain is really bothering him and he feels that is not being managed properly. Patient is requesting more Dilaudid than what is currently ordered. Patient denies any shortness of breath, or chest pain at this time. Patient maintains afebrile. Patient's gait was steady in the hallway with PT and OT today. Objective - Vital Signs Vital signs: Vital Signs Temp 97.5 F L 02/01/19 14:10 Pulse 60 02/01/19 15:43 Resp 18 02/01/19 14:10 BP 112/66 02/01/19 14:10 Pulse Ox 96 02/01/19 14:10 Intake & Output 01/31/19 02/01/19 02/01/19 18:59 06:59 18:59 Output Total 600 Balance -600 Output: Urine 600 Other: Voiding Method Urinal # Voids 3 3 # Bowel Movements 0 2 - Exam HEENT: Head is atraumatic, normocephalic. Pupils equal, round. Sclerae is anicteric. NECK: Supple. No JVD. No lymphadenopathy. No thyromegaly. LUNGS: Diminished lung sounds at the lower lobes. Expiratory wheezes noted on exam HEART: Regular rate and rhythm. No murmur. ABDOMEN: Soft. Non-tender. No masses palpated. EXTREMITIES: No pedal edema. NEUROLOGICAL: Patient is awake, alert and oriented x3. Cranial nerves 2 through 12 are grossly intact. - Constitutional General appearance: Present: cooperative, mild distress - Respiratory Respiratory: bilateral: wheezing - Labs CBC & Chem 7: 02/01/19 08:03 02/01/19 08:03 Labs: Abnormal Lab Results - Last 24 Hours (Table) 01/31/19 01/31/19 02/01/19 Range/Units 17:05 20:11 07:10 WBC (3.8-10.6) k/uL RBC (4.30-5.90) m/uL Hgb (13.0-17.5) gm/dL Hct (39.0-53.0) % RDW (11.5-15.5) % Plt Count (150-450) k/uL Neutrophils # (1.3-7.7) k/uL Lymphocytes # (1.0-4.8) k/uL Chloride (98-107) mmol/L BUN (9-20) mg/dL Creatinine (0.66-1.25) mg/dL Glucose (74-99) mg/dL POC Glucose (mg/dL) 142 H 155 H 116 H (75-99) mg/dL 02/01/19 02/01/19 02/01/19 Range/Units 08:03 08:03 12:04 WBC 11.8 H (3.8-10.6) k/uL RBC 3.69 L (4.30-5.90) m/uL Hgb 11.5 L (13.0-17.5) gm/dL Hct 36.2 L (39.0-53.0) % RDW 16.0 H (11.5-15.5) % Plt Count 142 L (150-450) k/uL Neutrophils # 10.7 H (1.3-7.7) k/uL Lymphocytes # 0.7 L (1.0-4.8) k/uL Chloride 108 H (98-107) mmol/L BUN 40 H (9-20) mg/dL Creatinine 1.27 H (0.66-1.25) mg/dL Glucose 133 H (74-99) mg/dL POC Glucose (mg/dL) 143 H (75-99) mg/dL Assessment and Plan Assessment: 1. Acute COPD exacerbation 2. Tracheobronchitis 3. Hypertension 4. Morbid obesity 5. Obstructive sleep apnea 6. Chronic pain of the neck and back Recommendations and discussion: We will continue to monitor the patient closely, and continue with bronchodilators and current medications. We'll continue with symptomatic treatment of his pain. Patient will follow up with Dr. Marcus for pain management. Will follow up with repeat labs in the a.m. prognosis is guarded due to multiple complex medical issues. Further recommendations to follow. Discussed in length about pain management and the medications he is receiving here for this. Discussed with the patient that increasing the dose of Dilaudid may affect his respiratory status and so we will continue with current dosage ordered. Patient will possibly be discharged in the next 24-48 hours.
[2019-02-01 17:17] LABS: Glucose,Whole Blood 141 mg/dL (75-99)
[2019-02-01 21:00] LABS: Glucose,Whole Blood 138 mg/dL (75-99)
[2019-02-01] MEDS: ALPRAZolam 0.25 MG TAB PO PRN (21:13)
[2019-02-02] MEDS: oxyCODONE-APAP 10-325MG 1 EACH TAB PO PRN ×3 (03:13→17:21)
[2019-02-02] MEDS: IPRATROPIUM-ALBUTEROL 3 ML NEB INHALATION PRN (03:14)
[2019-02-02] MEDS: methylPREDNISolone SOD SUCCI 125 MG/2 ML VIAL IV SCH ×2 (05:35→13:26)
[2019-02-02] MEDS: HYDROmorphone 0.5 MG/0.5 ML SYRINGE IVP PRN ×4 (05:35→23:18)
[2019-02-02 07:22] LABS: Glucose,Whole Blood 144 mg/dL (75-99)
[2019-02-02] MEDS: IPRATROPIUM-ALBUTEROL 3 ML NEB INHALATION SCH ×4 (07:29→18:36)
[2019-02-02] MEDS: SYMBICORT 160-4.5 MCG INHALER INHALATION SCH ×2 (07:29→18:36)
[2019-02-02] MEDS: PANTOPRAZOLE 40 MG TABLET PO SCH (07:52)
[2019-02-02] MEDS: HEPARIN SODIUM,PORCINE 5,000 UNIT/ML 1 ML VIAL SQ SCH ×2 (07:52→21:10)
[2019-02-02] MEDS: BENZOCAINE/MENTHOL LOZENG 1 EACH LOZENGE MUCOUS MEM PRN (07:53)
[2019-02-02] MEDS: ALPRAZolam 0.25 MG TAB PO PRN ×2 (07:53→21:15)
[2019-02-02] MEDS: TAMSULOSIN 0.4 MG CAP.ER.24H PO SCH (07:53)
[2019-02-02] MEDS: SERTRALINE 100 MG TAB PO SCH (07:53)
[2019-02-02] MEDS: hydrALAZINE HCL 25 MG TAB PO SCH ×2 (07:53→21:10)
[2019-02-02] MEDS: MONTELUKAST 10 MG TAB PO SCH (07:54)
[2019-02-02] MEDS: amLODIPine 5 MG TAB PO SCH (07:54)
[2019-02-02] MEDS: FINASTERIDE 5 MG TAB PO SCH (07:54)
[2019-02-02] MEDS: METOPROLOL TARTRATE 25 MG TAB PO SCH (07:54)
[2019-02-02] MEDS: INSULIN ASPART (NovoLOG) 100 UNIT/ML VIAL SQ SCH ×4 (07:55→21:10)
[2019-02-02] MEDS: CYCLOBENZAPRINE 10 MG TAB PO SCH ×3 (07:59→21:10)
[2019-02-02 08:19] LABS: Basophils % (A) 0 %; Eosinophils % (A) 1 %; HCT 35.3 % (39.0-53.0); HGB 11.3 gm/dL (13.0-17.5); Lymphocytes # (A) 0.5 k/uL (1.0-4.8); Lymphocytes % (A) 6 %; MCHC 31.9 g/dL (31.0-37.0); Mean Platelet Volume 7.3; Monocytes # (A) 0.4 k/uL (0-1.0); Monocytes % (A) 4 %; Neutrophils # (A) 8.3 k/uL (1.3-7.7); Neutrophils % (A) 89 %; Platelet Count 149 k/uL (150-450); RBC 3.64 m/uL (4.30-5.90); RDW 14.9 % (11.5-15.5); WBC 9.3 k/uL (3.8-10.6)
[2019-02-02 08:23] LABS: Calcium 8.6 mg/dL (8.4-10.2); Potassium 4.1 mmol/L (3.5-5.1)
[2019-02-02 11:56] LABS: Glucose,Whole Blood 108 mg/dL (75-99)
[2019-02-02] MEDS: MULTIVITAMINS, THERA 1 EACH TAB PO SCH (13:26)
--- NOTE | 2019-02-02 13:29 | P.PN ---
Subjective Progress Note Date: 02/02/19 Principal diagnosis: Acute COPD exacerbation, tracheobronchitis, probably chronic pain syndrome, obstructive sleep apnea, February 02 2019, patient seen eval examined during the rounds patient is complaining of pain in the neck and back otherwise respiratory status stable still left shortness of breath and little bit of cough and wheezing is improved 02/01/2019, patient seen and evaluated examined during non-denies any chest pain shortness of breath breathing well on activity and exertion get short of breath patient has been seen by his pain management 01/31/2019, patient seen eval reexamined during the rounds doing well denies any chest pain and discomfort discomfort breathing more comfortably and is still have issues associated back and neck pain patient is asking for his pain management doctor and Dr. Marcus to see we'll consult Dr. Marcus, This is a 63-year-old male well-known to me had the end-stage lung disease second to severe COPD also has component of chronic asthmatic bronchitis patient was in a stable state of health until about 2-3 days ago started getting increasing shortness of breath cough and congestion and producing greenish sputum with those problem came into the hospital she he has chronic pain and his been in chronic pain medicine as well he follows Dr. Marcus for pain management, patient is scheduled for outpatient PFT and sleep study at this point with Objective - Vital Signs Vital signs: Vital Signs Temp 98.5 F 02/02/19 04:45 Pulse 86 02/02/19 07:43 Resp 14 02/02/19 10:02 BP 138/71 02/02/19 04:45 Pulse Ox 94 L 02/02/19 10:02 Intake & Output 02/01/19 02/02/19 02/02/19 18:59 06:59 18:59 Intake Total 600 800 Balance 600 800 Intake: Oral 600 800 Other: Voiding Method Urinal # Voids 3 2 2 # Bowel Movements 1 - Exam - Constitutional General appearance: cooperative, disheveled, morbidly obese - EENT Eyes: EOMI, PERRLA, normal appearance Ears: bilateral: normal - Neck Carotids: bilateral: upstroke normal Thyroid: bilateral: normal size - Respiratory Respiratory: bilateral: diminished, wheezing, prolonged expiration, negative: dullness, rales, rhonchi - Cardiovascular Rhythm: regular Heart sounds: normal: S1, S2 - Gastrointestinal General gastrointestinal: distended, soft - Neurologic Neurologic: CNII-XII intact - Musculoskeletal Musculoskeletal: gait normal, generalized weakness, strength equal bilaterally - Psychiatric Psychiatric: A&O x's 3, appropriate affect, intact judgment & insight - Labs CBC & Chem 7: 02/02/19 07:32 02/02/19 07:32 Labs: Abnormal Lab Results - Last 24 Hours (Table) 02/01/19 02/01/19 02/02/19 Range/Units 17:12 20:57 07:14 RBC (4.30-5.90) m/uL Hgb (13.0-17.5) gm/dL Hct (39.0-53.0) % Plt Count (150-450) k/uL Neutrophils # (1.3-7.7) k/uL Lymphocytes # (1.0-4.8) k/uL Chloride (98-107) mmol/L BUN (9-20) mg/dL Glucose (74-99) mg/dL POC Glucose (mg/dL) 141 H 138 H 144 H (75-99) mg/dL 02/02/19 02/02/19 02/02/19 Range/Units 07:32 07:32 11:50 RBC 3.64 L (4.30-5.90) m/uL Hgb 11.3 L (13.0-17.5) gm/dL Hct 35.3 L (39.0-53.0) % Plt Count 149 L (150-450) k/uL Neutrophils # 8.3 H (1.3-7.7) k/uL Lymphocytes # 0.5 L (1.0-4.8) k/uL Chloride 110 H (98-107) mmol/L BUN 34 H (9-20) mg/dL Glucose 137 H (74-99) mg/dL POC Glucose (mg/dL) 108 H (75-99) mg/dL Assessment and Plan Assessment: Acute COPD exacerbation Tracheobronchitis Hypertension hypertensive cardiovascular disease Morbid obesity Obstructive sleep apnea Chronic pain syndrome related to chronic back pain and neck pain Plan: Bronchodilator IV steroid Broad-spectrum antibiotics DVT prophylaxis Increase activity as tolerated Pain management Further recommendations pending plan of care as per clinical response of the patient
[2019-02-02 17:08] LABS: Glucose,Whole Blood 119 mg/dL (75-99)
[2019-02-02] MEDS: methylPREDNISolone SOD SUCCI 40 MG/ML 1 ML VIAL IV SCH ×2 (17:20→23:18)
--- NOTE | 2019-02-02 18:40 | PN ---
PROGRESS NOTE DATE OF SERVICE: 02/02/2019. This 63-year-old gentleman admitted with COPD acute exacerbation being closely monitored. No chest pain. No palpitations. No fever. Dr. Granados is following the patient closely. EXAM: Alert and oriented x3. The pulse is 78, blood pressure 118/74, respirations 16, temperature 98.2, pulse ox 98% on room air. HEENT: Conjunctivae normal. NECK: No JVD. CARDIOVASCULAR: S1, S2 muffled. RESPIRATION: Breath sounds diminished in the bases. Bilateral scattered rhonchi and crackles. ABDOMEN is soft. Nontender. NERVOUS SYSTEM: No focal deficits. LABS: WBC 9.2, hemoglobin 11.3. ASSESSMENT: 1. Chronic obstructive pulmonary disease exacerbation, with acute purulent tracheobronchitis. 2. Hypertension. 3. Morbid obesity. 4. Obstructive sleep apnea. 5. Chronic pain of the and back and chronic pain syndrome. RECOMMENDATIONS AND DISCUSSION: Recommend to continue current medications, symptomatic treatment. Otherwise, closely monitor. Closely follow with Dr. Granados. I would taper the steroids further. Further recommendations to follow. MMODL / IJN: [id number] /
[2019-02-02 21:20] LABS: Glucose,Whole Blood 137 mg/dL (75-99)
[2019-02-03] MEDS: oxyCODONE-APAP 10-325MG 1 EACH TAB PO PRN ×3 (01:10→12:15)
[2019-02-03] MEDS: HYDROmorphone 0.5 MG/0.5 ML SYRINGE IVP PRN (05:36)
[2019-02-03 06:57] VITALS: BP 157/84; RESP 18; TEMP 96.9
[2019-02-03 07:20] LABS: Glucose,Whole Blood 127 mg/dL (75-99)
[2019-02-03] MEDS: INSULIN ASPART (NovoLOG) 100 UNIT/ML VIAL SQ SCH ×2 (07:22→12:10)
[2019-02-03] MEDS: MULTIVITAMINS, THERA 1 EACH TAB PO SCH (07:37)
[2019-02-03] MEDS: FINASTERIDE 5 MG TAB PO SCH (07:37)
[2019-02-03] MEDS: CYCLOBENZAPRINE 10 MG TAB PO SCH (07:37)
[2019-02-03] MEDS: PANTOPRAZOLE 40 MG TABLET PO SCH (07:37)
[2019-02-03] MEDS: MONTELUKAST 10 MG TAB PO SCH (07:37)
[2019-02-03] MEDS: METOPROLOL TARTRATE 25 MG TAB PO SCH (07:38)
[2019-02-03] MEDS: SERTRALINE 100 MG TAB PO SCH (07:39)
[2019-02-03] MEDS: hydrALAZINE HCL 25 MG TAB PO SCH (07:39)
[2019-02-03] MEDS: amLODIPine 5 MG TAB PO SCH (07:39)
[2019-02-03] MEDS: methylPREDNISolone SOD SUCCI 40 MG/ML 1 ML VIAL IV SCH (07:39)
[2019-02-03] MEDS: HEPARIN SODIUM,PORCINE 5,000 UNIT/ML 1 ML VIAL SQ SCH (07:39)
[2019-02-03] MEDS: TAMSULOSIN 0.4 MG CAP.ER.24H PO SCH (07:39)
[2019-02-03] MEDS: SYMBICORT 160-4.5 MCG INHALER INHALATION SCH (07:40)
[2019-02-03] MEDS: IPRATROPIUM-ALBUTEROL 3 ML NEB INHALATION SCH ×2 (07:41→11:28)
[2019-02-03 07:52] VITALS: PULSE 84
[2019-02-03 08:48] LABS: Basophils % (A) 0 %; Eosinophils % (A) 0 %; HCT 35.9 % (39.0-53.0); HGB 11.7 gm/dL (13.0-17.5); Lymphocytes # (A) 0.8 k/uL (1.0-4.8); Lymphocytes % (A) 8 %; MCH 31.2 pg (25.0-35.0); MCHC 32.6 g/dL (31.0-37.0); MCV 95.4 fL (80.0-100.0); Mean Platelet Volume 7.6; Monocytes # (A) 0.4 k/uL (0-1.0); Monocytes % (A) 5 %; Neutrophils # (A) 8.1 k/uL (1.3-7.7); Neutrophils % (A) 86 %; Platelet Count 159 k/uL (150-450); RBC 3.76 m/uL (4.30-5.90); RDW 15.6 % (11.5-15.5); WBC 9.5 k/uL (3.8-10.6)
[2019-02-03 09:08] LABS: Calcium 8.4 mg/dL (8.4-10.2); Potassium 4.3 mmol/L (3.5-5.1)
[2019-02-03 12:10] LABS: Glucose,Whole Blood 107 mg/dL (75-99)
--- NOTE | 2019-02-04 08:18 | DS ---
DISCHARGE SUMMARY DATE OF SERVICE: 02/03/2019 FINAL DIAGNOSES: 1. Chronic obstructive pulmonary disease acute exacerbation with acute purulent tracheobronchitis. 2. Hypertension. 3. Morbid obesity. 4. Sleep apnea. 5. Chronic pain syndrome syndrome and chronic back pain. 6. History of pneumonia, sleep apnea. 7. History of degenerative joint disease. 8. History of adenoidectomy. 9. History of anxiety. 10.Bipolar depression. 11.Panic disorder. DISCHARGE DISPOSITION: The patient will be discharged in stable condition with guarded prognosis. HISTORY: This 63-year-old gentleman with a past medical history of multiple medical problems was admitted with COPD acute exacerbation as well as multiple medical problems as listed above. Patient treated with bronchodilators, steroids, improved significantly. The patient was also seen by Dr. Trammell during the hospitalization. Recommended outpatient followup for pain syndrome. On exam, vitals are stable. Cardiovascular: S1, S2. Abdomen soft. Nervous system: No focal deficits. The patient was also seen by Dr. 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 On exam, vital signs are stable. Cardiovascular: S1, S2. Respirations: Few scattered rhonchi. Abdomen soft. Nervous system: No focal deficits. DISCHARGE ADVICE AND MEDICATIONS: 1. Diet is cardiac diet. 2. Activity limited until follow up. 3. Follow up with Dr. Granados as recommended. 4. Follow up with Dr. Shah in 2-3 days. MEDICATIONS: 1. Apresoline 25 mg p.o. b.i.d. 2. Lunesta 2 mg q.h.s. p.r.n. 3. Metoprolol 25 mg p.o. daily. 4. Norvasc 5 mg p.o. daily. 5. Percocet 10 mg q.i.d. p.r.n. 6. Proscar 5 mg. 7. Singular 10 mg p.o. daily. 8. Zoloft 100 mg. 9. Ceftin 500 mg p.o. b.i.d. 10.DuoNeb q.i.d. and p.r.n. 11.Flomax 0.4 daily. 12.Prednisone taper 40 mg daily for 3 days, 30 for 3 days, 20 for 3 days, 10 for 3 days. 13.Symbicort 160/4.5 two puffs b.i.d. Once again, the patient is being discharged in stable condition with guarded prognosis. MMODL / IJN: [id number] /
== END 2019-02-03 12:21 | disposition home or self-care (01) | DRG 190 ==
LOC: EC 03:26 → 4MS4W 06:32 → OBSVTOIN 02-01 14:00 → 4SSUR 02-02 17:21
PROVIDERS: ADMIT Internal Medicine; ATTEND Internal Medicine
DX: J44.1 Chronic obstructive pulmonary disease with (acute) exacerbation (principal); J80 Acute respiratory distress syndrome; I48.92 Unspecified atrial flutter; J44.0 Chronic obstructive pulmonary disease with (acute) lower respiratory infection; J20.9 Acute bronchitis, unspecified; Z87.891 Personal history of nicotine dependence; D63.8 Anemia in other chronic diseases classified elsewhere; D69.6 Thrombocytopenia, unspecified; E66.01 Morbid (severe) obesity due to excess calories; Z68.30 Body mass index [BMI] 30.0-30.9, adult; E83.42 Hypomagnesemia; E87.6 Hypokalemia; E88.09 Other disorders of plasma-protein metabolism, not elsewhere classified; F31.9 Bipolar disorder, unspecified; F41.0 Panic disorder [episodic paroxysmal anxiety]; G47.33 Obstructive sleep apnea (adult) (pediatric); Z99.89 Dependence on other enabling machines and devices; G89.4 Chronic pain syndrome; I11.9 Hypertensive heart disease without heart failure; K21.9 Gastro-esophageal reflux disease without esophagitis; Z79.899 Other long term (current) drug therapy; Z82.5 Family history of asthma and other chronic lower respiratory diseases; Z87.01 Personal history of pneumonia (recurrent); Z90.49 Acquired absence of other specified parts of digestive tract; F40.240 Claustrophobia; Z82.3 Family history of stroke; Z91.010 Allergy to peanuts; M19.90 Unspecified osteoarthritis, unspecified site; Z91.81 History of falling; R53.81 Other malaise
CPT/HCPCS: 36415; 71046; 80048; 80053; 81003; 83735; 85025; 94640; 94760; 96365; 96375; 99285

== ENCOUNTER 2019-02-04 04:29 | Emergency (ER) | payer MEDICARE ==
[2019-02-04] MEDS ORDERED: IPRATROPIUM-ALBUTEROL 3 ML NEB INHALATION STA (04:45)
[2019-02-04] MEDS ORDERED: predniSONE 20 MG TAB PO STA (04:45)
[2019-02-04] MEDS ORDERED: SODIUM CHLORIDE 0.9% 1,000 ML IV STA (04:45)
[2019-02-04] MEDS ORDERED: oxyCODONE-APAP 10-325MG 1 EACH TAB PO PRN (04:47)
--- NOTE | 2019-02-04 04:56 | ED ---
SOB HPI - General Chief Complaint: Shortness of Breath Stated Complaint: SOB Time Seen by Provider: 02/04/19 04:34 Source: patient Mode of arrival: ambulatory Limitations: physical limitation - History of Present Illness Initial Comments: Milo is a pleasant 63 yo male with end-stage COPD who presents the emergency department today for evaluation of wheezing and shortness of breath. Patient was seen and evaluated 2 days ago admitted the hospital for COPD exacerbation treated with antibiotics steroids and around the clock breathing treatments. Patient was discharged presently 12 hours ago. Patient reports that since discharge he's noticed progressively worsening shortness of breath, and wheezing despite taking his breathing treatments at home. Patient reports he was discharged with oral steroids however he has not taken any yet. - Related Data Home Medications Medication Instructions Recorded Confirmed Montelukast [Singulair] 10 mg PO DAILY 03/16/14 01/30/19 Metoprolol Tartrate 25 mg PO DAILY 04/24/18 01/30/19 Sertraline [Zoloft] 100 mg PO DAILY 11/04/18 01/30/19 hydrALAZINE HCL [Apresoline] 25 mg PO BID 11/04/18 01/30/19 oxyCODONE-APAP 10-325MG [Percocet 1 tab PO QID PRN 11/04/18 01/30/19 10-325 mg] Eszopiclone [Lunesta] 2 mg PO HS PRN 12/29/18 01/30/19 Finasteride [Proscar] 5 mg PO DAILY 12/29/18 01/30/19 amLODIPine [Norvasc] 5 mg PO DAILY 12/29/18 01/30/19 Previous Rx's Medication Instructions Recorded Tamsulosin [Flomax] 0.4 mg PO DAILY #10 cap 11/04/18 Budesonide-Formot 160-4.5 Mcg 2 puff INHALATION RT-BID puff 02/03/19 [Symbicort 160-4.5 Mcg Inhaler] Cefuroxime Axetil [Ceftin] 500 mg PO BID 3 Days #6 tab 02/03/19 Ipratropium-Albuterol Nebulize 3 ml INHALATION QID #120 neb 02/03/19 [Duoneb 0.5 mg-3 mg/3 ml Soln] predniSONE 10 mg PO DIRECTED #30 tab 02/03/19 Allergies Allergy/AdvReac Type Severity Reaction Status Date / Time peanut Allergy alg testing Verified 01/30/19 07:33 pollen extracts Allergy Unknown Verified 01/30/19 07:33 DUST Allergy alg testing Uncoded 01/30/19 07:33 Review of Systems ROS Statement: Those systems with pertinent positive or pertinent negative responses have been documented in the HPI. ROS Other: All systems not noted in ROS Statement are negative. Past Medical History Past Medical History: Atrial Flutter, Asthma, Chest Pain / Angina, COPD, GERD/Reflux, Hypertension, Osteoarthritis (OA), Pneumonia, Sleep Apnea/CPAP/BIPAP Additional Past Medical History / Comment(s): Back problems History of Any Multi-Drug Resistant Organisms: None Reported Past Surgical History: Adenoidectomy, Bowel Resection, Cholecystectomy Additional Past Surgical History / Comment(s): Nasal Past Anesthesia/Blood Transfusion Reactions: Previous Problems w/ Anesthesia, Motion Sickness Additional Past Anesthesia/Blood Transfusion Reaction / Comment(s): states "during procedure of checking something on my left lung,I turned blue and I was brought right back out anesthesia and proc was cancelled". clausterphobia Past Psychological History: Anxiety, Bipolar, Depression, Panic Disorder Smoking Status: Former smoker Past Alcohol Use History: Heavy, None Reported Past Drug Use History: Marijuana - Past Family History Mother Family Medical History: Asthma Additional Family Medical History / Comment(s): at age 62 Father Family Medical History: CVA/TIA Additional Family Medical History / Comment(s): at age 90 General Exam - General Exam Comments Initial Comments: Physical Exam GENERAL: Patient is well-developed and well-nourished. Patient is nontoxic and well-hydrated and is in no distress. HENT: Normocephalic, Atraumatic. EYES: PERRL, EOMI PULMONARY: Unlabored respirations. Forced expiratory wheezing CARDIOVASCULAR: There is a regular rate and rhythm without any murmurs gallops or rubs. ABDOMEN: Soft and nontender with normal bowel sounds. SKIN: Skin is clear with no lesions or rashes and otherwise unremarkable. : Deferred NEUROLOGIC: Patient is alert and oriented x3. Moving all extremities spontaneously MUSCULOSKELETAL: Normal extremities with adequate strength and full range of motion. No lower extremity swelling or edema. No calf tenderness. PSYCHIATRIC: Normal psychiatric evaluation Limitations: physical limitation Course Vital Signs 02/04/19 02/04/19 02/04/19 04:31 05:15 05:33 Temperature 97.7 F Pulse Rate 75 69 Respiratory 16 78 H Rate Blood Pressure 144/83 O2 Sat by Pulse 95 Oximetry 02/04/19 02/04/19 05:41 06:04 Temperature 98 F Pulse Rate 69 76 Respiratory 18 Rate Blood Pressure 128/77 O2 Sat by Pulse 95 Oximetry Medical Decision Making - Medical Decision Making Patient was seen and evaluated, history is obtained from the patient On exam patient has forced expiratory wheezing, he is otherwise stable no hypoxia or tachycardia EKG is nonischemic EKG was obtained at 4:44 AM, rate 74 rhythm is sinus there is right bundle branch block there is normal intervals, DE 1:30, curettes 142, QTc [address] elevations or depressions no signs of acute ischemia or infarction. Chest x-ray no significant change from baseline Labs with no significant abnormalities received breathing treatment and steroids. Patient was only minimally compliant with breathing treatment As I walked by the room patient had no audible wheezing he is resting comfortably. As I enter the room to examine the patient he woke up and began again having forced expiratory wheezing. Advised the patient of his normal workup and that he should follow up outpatient continue the medication regimen as discharge. PERTAINING care were answered return parameters were discussed patient was discharged home in stable condition. - Lab Data Result diagrams: 02/04/19 04:51 02/04/19 04:51 Lab Results 02/04/19 02/04/19 02/04/19 Range/Units 04:51 04:51 04:51 WBC 7.5 (3.8-10.6) k/uL RBC 3.83 L (4.30-5.90) m/uL Hgb 12.4 L (13.0-17.5) gm/dL Hct 36.5 L (39.0-53.0) % MCV 95.3 (80.0-100.0) fL MCH 32.3 (25.0-35.0) pg MCHC 33.9 (31.0-37.0) g/dL RDW 16.6 H (11.5-15.5) % Plt Count 160 (150-450) k/uL Neutrophils % 75 % Lymphocytes % 14 % Monocytes % 8 % Eosinophils % 2 % Basophils % 0 % Neutrophils # 5.6 (1.3-7.7) k/uL Lymphocytes # 1.0 (1.0-4.8) k/uL Monocytes # 0.6 (0-1.0) k/uL Eosinophils # 0.1 (0-0.7) k/uL Basophils # 0.0 (0-0.2) k/uL Anisocytosis Slight PT 10.1 (9.0-12.0) sec INR 0.9 (<1.2) APTT 20.4 L (22.0-30.0) sec Sodium 144 (137-145) mmol/L Potassium 3.3 L (3.5-5.1) mmol/L Chloride 114 H (98-107) mmol/L Carbon Dioxide 22 (22-30) mmol/L Anion Gap 8 mmol/L BUN 37 H (9-20) mg/dL Creatinine 1.24 (0.66-1.25) mg/dL Est GFR (CKD-EPI)AfAm 72 (>60 ml/min/1.73 sqM) Est GFR (CKD-EPI)NonAf 62 (>60 ml/min/1.73 sqM) Glucose 99 (74-99) mg/dL Calcium 8.2 L (8.4-10.2) mg/dL Magnesium 2.2 (1.6-2.3) mg/dL Total Bilirubin 0.3 (0.2-1.3) mg/dL AST 68 H (17-59) U/L ALT 118 H (21-72) U/L Alkaline Phosphatase 96 (38-126) U/L Troponin I (0.000-0.034) ng/mL Total Protein 5.2 L (6.3-8.2) g/dL Albumin 3.2 L (3.5-5.0) g/dL 02/04/19 Range/Units 04:51 WBC (3.8-10.6) k/uL RBC (4.30-5.90) m/uL Hgb (13.0-17.5) gm/dL Hct (39.0-53.0) % MCV (80.0-100.0) fL MCH (25.0-35.0) pg MCHC (31.0-37.0) g/dL RDW (11.5-15.5) % Plt Count (150-450) k/uL Neutrophils % % Lymphocytes % % Monocytes % % Eosinophils % % Basophils % % Neutrophils # (1.3-7.7) k/uL Lymphocytes # (1.0-4.8) k/uL Monocytes # (0-1.0) k/uL Eosinophils # (0-0.7) k/uL Basophils # (0-0.2) k/uL Anisocytosis PT (9.0-12.0) sec INR (<1.2) APTT (22.0-30.0) sec Sodium (137-145) mmol/L Potassium (3.5-5.1) mmol/L Chloride (98-107) mmol/L Carbon Dioxide (22-30) mmol/L Anion Gap mmol/L BUN (9-20) mg/dL Creatinine (0.66-1.25) mg/dL Est GFR (CKD-EPI)AfAm (>60 ml/min/1.73 sqM) Est GFR (CKD-EPI)NonAf (>60 ml/min/1.73 sqM) Glucose (74-99) mg/dL Calcium (8.4-10.2) mg/dL Magnesium (1.6-2.3) mg/dL Total Bilirubin (0.2-1.3) mg/dL AST (17-59) U/L ALT (21-72) U/L Alkaline Phosphatase (38-126) U/L Troponin I <0.012 (0.000-0.034) ng/mL Total Protein (6.3-8.2) g/dL Albumin (3.5-5.0) g/dL Disposition Clinical Impression: COPD (chronic obstructive pulmonary disease) Disposition: HOME SELF-CARE Condition: Serious Instructions (If sedation given, give patient instructions): Chronic Cough (ED) Is patient prescribed a controlled substance at d/c from ED?: No Referrals: Deborah Shah III, MD [Primary Care Provider] - 1-2 days
[2019-02-04 05:08] LABS: Albumin 3.2 g/dL (3.5-5.0); Calcium 8.2 mg/dL (8.4-10.2); Magnesium 2.2 mg/dL (1.6-2.3); Potassium 3.3 mmol/L (3.5-5.1); Total Bilirubin 0.3 mg/dL (0.2-1.3); Total Protein 5.2 g/dL (6.3-8.2)
--- NOTE | 2019-02-04 05:12 | XR ---
EXAM: XR Chest, 2 Views CLINICAL HISTORY: ITS.REASON XR Reason: difficulty breathing TECHNIQUE: Frontal and lateral views of the chest. COMPARISON: 01/30/19 FINDINGS: Lungs: Ill-defined opacity in the right infrahilar region which may reflect developing infiltrate. Pleural space: No pleural effusion. No pneumothorax. Heart: Stable cardiovascular silhouette. Mediastinum: Unremarkable. Bones/joints: Unremarkable. IMPRESSION: 1. Suspect developing infiltrate in the right infrahilar region. Follow- up to clearing recommended to exclude underlying abnormality/mass. 2. Follow-up chest CT could be obtained for better visualization as indicated.
[2019-02-04 05:16] LABS: INR 0.9 (<1.2); Prothrombin Time 10.1 sec (9.0-12.0)
[2019-02-04 05:22] LABS: Partial Thromboplastin Time 20.4 sec (22.0-30.0)
[2019-02-04 05:24] LABS: Anisocytosis Slight; Basophils % (A) 0 %; Eosinophils # (A) 0.1 k/uL (0-0.7); Eosinophils % (A) 2 %; HCT 36.5 % (39.0-53.0); HGB 12.4 gm/dL (13.0-17.5); Lymphocytes % (A) 14 %; MCH 32.3 pg (25.0-35.0); MCHC 33.9 g/dL (31.0-37.0); MCV 95.3 fL (80.0-100.0); Mean Platelet Volume 7.6; Monocytes # (A) 0.6 k/uL (0-1.0); Monocytes % (A) 8 %; Neutrophils # (A) 5.6 k/uL (1.3-7.7); Neutrophils % (A) 75 %; Platelet Count 160 k/uL (150-450); RBC 3.83 m/uL (4.30-5.90); RDW 16.6 % (11.5-15.5); WBC 7.5 k/uL (3.8-10.6)
[2019-02-04] MEDS ORDERED: POTASSIUM CHLORIDE ER 20 MEQ TAB.ER PO STA (05:59)
[2019-02-04 06:05] VITALS: BP 128/77; PULSE 76; RESP 18; TEMP 98
== END 2019-02-04 06:15 | disposition home or self-care (01) ==
LOC: EC 04:29
DX: J44.9 Chronic obstructive pulmonary disease, unspecified (principal); I45.10 Unspecified right bundle-branch block; I48.92 Unspecified atrial flutter; K21.9 Gastro-esophageal reflux disease without esophagitis; I10 Essential (primary) hypertension; M19.90 Unspecified osteoarthritis, unspecified site; G47.30 Sleep apnea, unspecified; Z99.89 Dependence on other enabling machines and devices; F31.9 Bipolar disorder, unspecified; F41.0 Panic disorder [episodic paroxysmal anxiety]; Z87.891 Personal history of nicotine dependence; Z79.899 Other long term (current) drug therapy; Z91.010 Allergy to peanuts; Z91.048 Other nonmedicinal substance allergy status
CPT/HCPCS: 36415; 94640; 93005; 80053; 83735; 84484; 85025; 85610; 85730; 71046; 99285; 96360; J7512

== ENCOUNTER 2019-02-05 00:20 | Emergency (ER) | payer MEDICARE ==
[2019-02-05 00:50] VITALS: BP 149/84; RESP 20; TEMP 97.5
[2019-02-05] MEDS ORDERED: IPRATROPIUM-ALBUTEROL 3 ML NEB INHALATION STA (01:19)
[2019-02-05 01:58] VITALS: PULSE 71
--- NOTE | 2019-02-05 02:13 | XR ---
EXAM: XR Chest, 2 Views CLINICAL HISTORY: Pain TECHNIQUE: Frontal and lateral views of the chest. COMPARISON: 02/04/2019 0505 FINDINGS: Lungs: Unremarkable. No consolidation. Pleural space: Unremarkable. No pneumothorax. Heart: Unremarkable. No cardiomegaly. Mediastinum: Unremarkable. Bones/joints: No acute osseous abnormality. IMPRESSION: No acute cardiopulmonary process.
--- NOTE | 2019-02-05 02:14 | ED ---
SOB HPI - General Chief Complaint: Shortness of Breath Stated Complaint: SOB Source: patient Mode of arrival: ambulatory Limitations: no limitations - History of Present Illness Initial Comments: Milo is a 63 yo male with COPD and chronic pain who is very well known to the ED. she had a recent 2 day admission to the hospital for COPD exacerbation and he was discharged 2 days ago with steroids and antibiotics. Patient was reevaluated [facility] and subsequent discharge home. Patient returns this evening stating that he feels wheezy despite using his breathing treatments at home. Patient also notes that he is nearly out of his home pain medications and therefore didn't take them prior to coming in and would like a pain pill upon arrival. She reports that the hot humid weather causes shortness of breath or worse and he feels like he is wheezing he's been doing his breathing treatments at home with minimal improvement. Patient reports he did take his steroids and an tibiotics today. - Related Data Home Medications Medication Instructions Recorded Confirmed Montelukast [Singulair] 10 mg PO DAILY 03/16/14 01/30/19 Metoprolol Tartrate 25 mg PO DAILY 04/24/18 01/30/19 Sertraline [Zoloft] 100 mg PO DAILY 11/04/18 01/30/19 hydrALAZINE HCL [Apresoline] 25 mg PO BID 11/04/18 01/30/19 oxyCODONE-APAP 10-325MG [Percocet 1 tab PO QID PRN 11/04/18 01/30/19 10-325 mg] Eszopiclone [Lunesta] 2 mg PO HS PRN 12/29/18 01/30/19 Finasteride [Proscar] 5 mg PO DAILY 12/29/18 01/30/19 amLODIPine [Norvasc] 5 mg PO DAILY 12/29/18 01/30/19 Previous Rx's Medication Instructions Recorded Tamsulosin [Flomax] 0.4 mg PO DAILY #10 cap 11/04/18 Budesonide-Formot 160-4.5 Mcg 2 puff INHALATION RT-BID puff 02/03/19 [Symbicort 160-4.5 Mcg Inhaler] Cefuroxime Axetil [Ceftin] 500 mg PO BID 3 Days #6 tab 02/03/19 Ipratropium-Albuterol Nebulize 3 ml INHALATION QID #120 neb 02/03/19 [Duoneb 0.5 mg-3 mg/3 ml Soln] predniSONE 10 mg PO DIRECTED #30 tab 02/03/19 Allergies Allergy/AdvReac Type Severity Reaction Status Date / Time peanut Allergy alg testing Verified 01/30/19 07:33 pollen extracts Allergy Unknown Verified 01/30/19 07:33 DUST Allergy alg testing Uncoded 01/30/19 07:33 Review of Systems ROS Statement: Those systems with pertinent positive or pertinent negative responses have been documented in the HPI. ROS Other: All systems not noted in ROS Statement are negative. Past Medical History Past Medical History: Atrial Flutter, Asthma, Chest Pain / Angina, COPD, GERD/Reflux, Hypertension, Osteoarthritis (OA), Pneumonia, Sleep Apnea/CPAP/BIPAP Additional Past Medical History / Comment(s): Back problems History of Any Multi-Drug Resistant Organisms: None Reported Past Surgical History: Adenoidectomy, Bowel Resection, Cholecystectomy Additional Past Surgical History / Comment(s): Nasal Past Anesthesia/Blood Transfusion Reactions: Previous Problems w/ Anesthesia, Motion Sickness Additional Past Anesthesia/Blood Transfusion Reaction / Comment(s): states "during procedure of checking something on my left lung,I turned blue and I was brought right back out anesthesia and proc was cancelled". clausterphobia Past Psychological History: Anxiety, Bipolar, Depression, Panic Disorder Smoking Status: Former smoker Past Alcohol Use History: Heavy, None Reported Past Drug Use History: Marijuana - Past Family History Mother Family Medical History: Asthma Additional Family Medical History / Comment(s): at age 62 Father Family Medical History: CVA/TIA Additional Family Medical History / Comment(s): at age 90 General Exam - General Exam Comments Initial Comments: Physical Exam GENERAL: Chronically ill appearing HENT: Normocephalic, Atraumatic. EYES: PERRL, EOMI PULMONARY: Forced expiratory wheezing at times No crackles or rales CARDIOVASCULAR: There is a regular rate and rhythm without any murmurs gallops or rubs. ABDOMEN: Soft and nontender with normal bowel sounds. SKIN: Skin is clear with no lesions or rashes and otherwise unremarkable. : Deferred NEUROLOGIC: Patient is alert and oriented x3. Moving all extremities spontaneously MUSCULOSKELETAL: Normal extremities with adequate strength and full range of motion. No lower extremity swelling or edema. No calf tenderness. PSYCHIATRIC: Normal psychiatric evaluation Limitations: no limitations Course Vital Signs 02/05/19 02/05/19 02/05/19 00:47 01:25 01:55 Temperature 97.5 F L Pulse Rate 74 71 Respiratory 20 20 Rate Blood Pressure 149/84 O2 Sat by Pulse 96 Oximetry 02/05/19 02:02 Temperature Pulse Rate 71 Respiratory Rate Blood Pressure O2 Sat by Pulse Oximetry Medical Decision Making - Medical Decision Making Patient was seen and evaluated, history obtained from patient and medical record Patient with chronic COPD, not on home O2 Vitals stable, no hypoxia or tachycardia noted Pat[place] requesting pain medications immediately, admits he is going to run out early this week Breathing improved with duoneb, CXR unremarkable Patient given PO Percocet for chronic pain At this time there is no indication for admission at this time, patient is on appropriate outpatient therapy for his chronic COPD. 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 Patient did express anxiety over the fact that his mother of asthma at the age of 62. All questions pertaining care were answered return parameters were discussed patient was discharged home in stable condition. Disposition Clinical Impression: COPD exacerbation, Chronic pain Disposition: HOME SELF-CARE Condition: Stable Is patient prescribed a controlled substance at d/c from ED?: No Referrals: Deborah Shah III, MD [Primary Care Provider] - 1-2 days
[2019-02-05] MEDS ORDERED: oxyCODONE-APAP 10-325MG 1 EACH TAB PO STA (02:56)
== END 2019-02-05 03:11 | disposition home or self-care (01) ==
LOC: EC 00:20
DX: J44.1 Chronic obstructive pulmonary disease with (acute) exacerbation (principal); G89.29 Other chronic pain; I48.92 Unspecified atrial flutter; I10 Essential (primary) hypertension; G47.30 Sleep apnea, unspecified; Z99.89 Dependence on other enabling machines and devices; F31.9 Bipolar disorder, unspecified; F41.0 Panic disorder [episodic paroxysmal anxiety]; Z87.891 Personal history of nicotine dependence; Z79.899 Other long term (current) drug therapy; Z91.010 Allergy to peanuts; Z91.048 Other nonmedicinal substance allergy status
CPT/HCPCS: 71046; 94640; 99285

== ENCOUNTER → 2019-02-06 | Outpatient (CLI) | payer MEDICARE, OTHER ==
[2019-02-06 10:15] LABS: Basophils % (A) 0 %; Eosinophils # (A) 0.3 k/uL (0-0.7); Eosinophils % (A) 3 %; HCT 39.2 % (39.0-53.0); Lymphocytes # (A) 0.9 k/uL (1.0-4.8); Lymphocytes % (A) 7 %; MCV 93.7 fL (80.0-100.0); Mean Platelet Volume 7.2; Monocytes # (A) 0.8 k/uL (0-1.0); Monocytes % (A) 6 %; Neutrophils # (A) 10.2 k/uL (1.3-7.7); Neutrophils % (A) 83 %; Platelet Count 197 k/uL (150-450); RBC 4.19 m/uL (4.30-5.90); RDW 15.4 % (11.5-15.5); WBC 12.4 k/uL (3.8-10.6)
[2019-02-06 15:45] LABS: Anion Gap 6.3 mmol/L (4.00-12.00); BUN/Creat Ratio 23.75 Ratio (12.00-20.00); Calcium 8.4 mg/dL (8.7-10.3); Carbon Dioxide 28.7 mmol/L (21.6-31.8); Potassium 4.1 mmol/L (3.5-5.5)
== END | disposition home or self-care (01) ==
LOC: LABWHC1 09:35
PROVIDERS: ATTEND Hospitalist
DX: J44.9 Chronic obstructive pulmonary disease, unspecified (principal)
CPT/HCPCS: 36415; 80048; 85025

== ENCOUNTER 2019-02-07 12:29 | Observation (INO) | payer MEDICARE ==
[2019-02-07] MEDS ORDERED: ALBUTEROL NEBULIZED 2.5 MG/3 ML INHALATION STA (13:02)
[2019-02-07] MEDS ORDERED: IPRATROPIUM 0.5 MG/2.5 ML NEBU INHALATION STA (13:02)
[2019-02-07] MEDS ORDERED: methylPREDNISolone SOD SUCCI 125 MG/2 ML VIAL IV STA (13:02)
[2019-02-07] MEDS ORDERED: KETOROLAC 60 MG/2 ML VIAL IVP STA (13:03)
--- NOTE | 2019-02-07 13:13 | ED ---
General Adult HPI - General Chief complaint: Shortness of Breath Stated complaint: GREGG Time Seen by Provider: 02/07/19 12:45 Source: patient, RN notes reviewed Mode of arrival: ambulatory Limitations: physical limitation - History of Present Illness Initial comments: This is a 63-year-old male who presents to the emergency department complaining of difficulty breathing. Patient states she has a history of COPD and chronic back pain. Patient states his COPD is gotten worse since been here multiple times but he cannot seem to get any better. Patient states she has an increased cough but no sputum production. Patient denies any chest pain. Patient states his back hurts just like it always does no worse. Patient denies any recent injury or trauma. Patient denies any recent fever chills or cough. Patient denies any palpitations. Patient denies any lightheadedness dizziness or near syncopal episode. Patient denies headache patient denies numbness weakness. Patient denies abdominal pain patient denies nausea vomiting diarrhea. Patient denies any calf pain or leg swelling. - Related Data Home Medications Medication Instructions Recorded Confirmed Montelukast [Singulair] 10 mg PO DAILY 03/16/14 02/07/19 Metoprolol Tartrate 25 mg PO DAILY 04/24/18 02/07/19 Sertraline [Zoloft] 100 mg PO DAILY 11/04/18 02/07/19 hydrALAZINE HCL [Apresoline] 25 mg PO BID 11/04/18 02/07/19 oxyCODONE-APAP 10-325MG [Percocet 1 tab PO QID PRN 11/04/18 02/07/19 10-325 mg] Eszopiclone [Lunesta] 2 mg PO HS PRN 12/29/18 02/07/19 Finasteride [Proscar] 5 mg PO DAILY 12/29/18 02/07/19 amLODIPine [Norvasc] 5 mg PO DAILY 12/29/18 02/07/19 Ipratropium-Albuterol Nebulize 3 ml INHALATION RT-QID 02/07/19 02/07/19 [Duoneb 0.5 mg-3 mg/3 ml Soln] predniSONE See Taper PO DAILY 02/07/19 02/07/19 Previous Rx's Medication Instructions Recorded Tamsulosin [Flomax] 0.4 mg PO DAILY #10 cap 11/04/18 Budesonide-Formot 160-4.5 Mcg 2 puff INHALATION RT-BID puff 02/03/19 [Symbicort 160-4.5 Mcg Inhaler] Allergies Allergy/AdvReac Type Severity Reaction Status Date / Time peanut Allergy alg testing Verified 02/07/19 13:45 pollen extracts Allergy Unknown Verified 02/07/19 13:45 DUST Allergy alg testing Uncoded 02/07/19 12:49 Review of Systems ROS Statement: Those systems with pertinent positive or pertinent negative responses have been documented in the HPI. ROS Other: All systems not noted in ROS Statement are negative. Past Medical History Past Medical History: Atrial Flutter, Asthma, Chest Pain / Angina, COPD, GERD/Reflux, Hypertension, Osteoarthritis (OA), Pneumonia, Sleep Apnea/CPAP/BIPAP Additional Past Medical History / Comment(s): Back problems History of Any Multi-Drug Resistant Organisms: None Reported Past Surgical History: Adenoidectomy, Bowel Resection, Cholecystectomy Additional Past Surgical History / Comment(s): Nasal Past Anesthesia/Blood Transfusion Reactions: Previous Problems w/ Anesthesia, Motion Sickness Additional Past Anesthesia/Blood Transfusion Reaction / Comment(s): states "during procedure of checking something on my left lung,I turned blue and I was brought right back out anesthesia and proc was cancelled". clausterphobia Past Psychological History: Anxiety, Bipolar, Depression, Panic Disorder Smoking Status: Former smoker Past Alcohol Use History: Heavy, None Reported Past Drug Use History: Marijuana - Past Family History Mother Family Medical History: Asthma Additional Family Medical History / Comment(s): at age 62 Father Family Medical History: CVA/TIA Additional Family Medical History / Comment(s): at age 90 General Exam - General Exam Comments Initial Comments: GENERAL: Patient is well-developed and well-nourished. Patient is nontoxic and well- hydrated and is in mild distress. ENT: Neck is soft and supple. No significant lymphadenopathy is noted. Oropharynx is clear. Moist mucous membranes. Neck has full range of motion without eliciting any pain. EYES: The sclera were anicteric and conjunctiva were pink and moist. Extraocular movements were intact and pupils were equal round and reactive to light. Eyelids were unremarkable. PULMONARY: Diffuse expiratory wheezing CARDIOVASCULAR: There is a regular rate and rhythm without any murmurs gallops or rubs. ABDOMEN: Soft and nontender with normal bowel sounds. SKIN: Skin is clear with no lesions or rashes and otherwise unremarkable. NEUROLOGIC: Patient is alert and oriented x3. Cranial nerves II through XII are grossly intact. Motor and sensory are also intact. Normal speech, volume and content. Symmetrical smile. MUSCULOSKELETAL: Normal extremities with adequate strength and full range of motion. No lower extremity swelling or edema. No calf tenderness. LYMPHATICS: No significant lymphadenopathy is noted PSYCHIATRIC: Normal psychiatric evaluation. Limitations: physical limitation Course Vital Signs 02/07/19 02/07/19 02/07/19 12:47 13:19 13:38 Temperature 98.4 F Pulse Rate 62 60 Respiratory 24 22 Rate Blood Pressure 135/74 O2 Sat by Pulse 96 Oximetry 02/07/19 02/07/19 02/07/19 13:40 13:43 13:50 Temperature Pulse Rate 59 L 59 L Respiratory 24 Rate Blood Pressure 135/90 O2 Sat by Pulse 96 98 Oximetry 02/07/19 02/07/19 14:00 14:08 Temperature Pulse Rate 64 61 Respiratory 22 Rate Blood Pressure 135/90 O2 Sat by Pulse 97 Oximetry Medical Decision Making - Medical Decision Making EKG shows normal sinus rhythm at 60 bpm CA interval is 128 QRS is 1:30 for QT intervals 470 QTC is 470. Patient has a right bundle branch block. Patient received 3 breathing treatments in the emergency department as well as steroids. I went back into reevaluate him and he continued to wheeze diffusely. I spoke with Dr. Morgan he agreed to but the patient admitted the patient wrote admitting orders I continued albuterol steroids on the floor. - Lab Data Result diagrams: 02/07/19 13:32 02/07/19 13:32 Lab Results 02/07/19 02/07/19 02/07/19 Range/Units 13:32 13:32 13:32 WBC 16.2 H (3.8-10.6) k/uL RBC 4.52 (4.30-5.90) m/uL Hgb 14.3 (13.0-17.5) gm/dL Hct 42.1 (39.0-53.0) % MCV 93.0 (80.0-100.0) fL MCH 31.6 (25.0-35.0) pg MCHC 34.0 (31.0-37.0) g/dL RDW 14.8 (11.5-15.5) % Plt Count 229 (150-450) k/uL Neutrophils % 71 % Lymphocytes % 8 % Monocytes % 7 % Eosinophils % 13 % Basophils % 0 % Neutrophils # 11.5 H (1.3-7.7) k/uL Lymphocytes # 1.3 (1.0-4.8) k/uL Monocytes # 1.1 H (0-1.0) k/uL Eosinophils # 2.2 H (0-0.7) k/uL Basophils # 0.0 (0-0.2) k/uL PT (9.0-12.0) sec INR (<1.2) APTT (22.0-30.0) sec Sodium 140 (137-145) mmol/L Potassium 4.1 (3.5-5.1) mmol/L Chloride 107 (98-107) mmol/L Carbon Dioxide 27 (22-30) mmol/L Anion Gap 6 mmol/L BUN 18 (9-20) mg/dL Creatinine 0.76 (0.66-1.25) mg/dL Est GFR (CKD-EPI)AfAm >90 (>60 ml/min/1.73 sqM) Est GFR (CKD-EPI)NonAf >90 (>60 ml/min/1.73 sqM) Glucose 98 (74-99) mg/dL Plasma Lactic Acid Aman 1.6 (0.7-2.0) mmol/L Calcium 8.7 (8.4-10.2) mg/dL Magnesium 1.8 (1.6-2.3) mg/dL Total Bilirubin 1.1 (0.2-1.3) mg/dL AST 40 (17-59) U/L ALT 80 H (21-72) U/L Alkaline Phosphatase 73 (38-126) U/L Troponin I (0.000-0.034) ng/mL NT-Pro-B Natriuret Pep pg/mL Total Protein 5.6 L (6.3-8.2) g/dL Albumin 3.4 L (3.5-5.0) g/dL 02/07/19 02/07/19 02/07/19 Range/Units 13:32 13:32 13:32 WBC (3.8-10.6) k/uL RBC (4.30-5.90) m/uL Hgb (13.0-17.5) gm/dL Hct (39.0-53.0) % MCV (80.0-100.0) fL MCH (25.0-35.0) pg MCHC (31.0-37.0) g/dL RDW (11.5-15.5) % Plt Count (150-450) k/uL Neutrophils % % Lymphocytes % % Monocytes % % Eosinophils % % Basophils % % Neutrophils # (1.3-7.7) k/uL Lymphocytes # (1.0-4.8) k/uL Monocytes # (0-1.0) k/uL Eosinophils # (0-0.7) k/uL Basophils # (0-0.2) k/uL PT 10.5 (9.0-12.0) sec INR 1.0 (<1.2) APTT 22.1 (22.0-30.0) sec Sodium (137-145) mmol/L Potassium (3.5-5.1) mmol/L Chloride (98-107) mmol/L Carbon Dioxide (22-30) mmol/L Anion Gap mmol/L BUN (9-20) mg/dL Creatinine (0.66-1.25) mg/dL Est GFR (CKD-EPI)AfAm (>60 ml/min/1.73 sqM) Est GFR (CKD-EPI)NonAf (>60 ml/min/1.73 sqM) Glucose (74-99) mg/dL Plasma Lactic Acid Aman (0.7-2.0) mmol/L Calcium (8.4-10.2) mg/dL Magnesium (1.6-2.3) mg/dL Total Bilirubin (0.2-1.3) mg/dL AST (17-59) U/L ALT (21-72) U/L Alkaline Phosphatase (38-126) U/L Troponin I <0.012 (0.000-0.034) ng/mL NT-Pro-B Natriuret Pep 677 pg/mL Total Protein (6.3-8.2) g/dL Albumin (3.5-5.0) g/dL Critical Care Time Critical Care Time: Yes Total Critical Care Time: 35 Disposition Clinical Impression: Acute exacerbation of chronic obstructive airways disease Disposition: ADMITTED IP TO THIS HOSP Referrals: Deborah Shah III, MD [Primary Care Provider] - 1-2 days Time of Disposition: 15:38
[2019-02-07 13:44] LABS: Basophils % (A) 0 %; Eosinophils # (A) 2.2 k/uL (0-0.7); Eosinophils % (A) 13 %; HCT 42.1 % (39.0-53.0); HGB 14.3 gm/dL (13.0-17.5); Lymphocytes # (A) 1.3 k/uL (1.0-4.8); Lymphocytes % (A) 8 %; MCH 31.6 pg (25.0-35.0); Mean Platelet Volume 6.6; Monocytes # (A) 1.1 k/uL (0-1.0); Monocytes % (A) 7 %; Neutrophils # (A) 11.5 k/uL (1.3-7.7); Neutrophils % (A) 71 %; Platelet Count 229 k/uL (150-450); RBC 4.52 m/uL (4.30-5.90); RDW 14.8 % (11.5-15.5); WBC 16.2 k/uL (3.8-10.6)
[2019-02-07 13:52] LABS: African American GFR (CKD) >90 (>60 ml/min/1.73 sqM); Albumin 3.4 g/dL (3.5-5.0); Anion Gap 6 mmol/L; Blood Urea Nitrogen 18 mg/dL (9-20); Calcium 8.7 mg/dL (8.4-10.2); Carbon Dioxide 27 mmol/L (22-30); Chloride 107 mmol/L (98-107); Glucose 98 mg/dL (74-99); Sodium 140 mmol/L (137-145); Total Bilirubin 1.1 mg/dL (0.2-1.3); Total Protein 5.6 g/dL (6.3-8.2)
[2019-02-07 13:54] LABS: AST 40 U/L (17-59); Magnesium 1.8 mg/dL (1.6-2.3); Potassium 4.1 mmol/L (3.5-5.1)
[2019-02-07 13:55] LABS: ALT 80 U/L (21-72); Alkaline Phosphatase 73 U/L (38-126)
[2019-02-07 13:58] LABS: Partial Thromboplastin Time 22.1 sec (22.0-30.0); Prothrombin Time 10.5 sec (9.0-12.0)
--- NOTE | 2019-02-07 14:56 | XR ---
EXAMINATION TYPE: XR chest 2V DATE OF EXAM: 02/07/2019 COMPARISON: 02/05/2019 chest x-ray and CT dated 09/23/2018 HISTORY: Shortness of breath with history of asthma TECHNIQUE: Frontal and lateral views of the chest are obtained. FINDINGS: There is no focal air space opacity, pleural effusion, or pneumothorax seen. Flattening o f the diaphragms on the lateral view suggests underlying COPD. The cardiac silhouette size is within normal limits. The osseous structures are intact. Minimal multilevel degenerative changes of the sp ine. IMPRESSION: 1. No acute cardiopulmonary process. 2. Flattening of the diaphragms on the lateral view suggests underlying COPD. Poorly with pulmonary f unction test in this patient with a history of asthma. 3. Curvilinear density along the right paraspinal line near the thoracolumbar junction could relate t o a hiatal hernia however this is not seen on the lateral view and nonemergent CT thorax to exclude p araspinal mass. In review the prior CT of 09/23/2018 this likely relates to small hiatal hernia and he rniation of mesenteric fat through the widened diaphragmatic hiatus.
[2019-02-07] MEDS ORDERED: oxyCODONE-APAP 10-325MG 1 EACH TAB PO STA (15:35)
[2019-02-07 15:51] LABS: Appearance,Urine Clear (Clear); Bilirubin,Urine Negative (Negative); Blood,Urine Negative (Negative); Color,Urine Yellow; Glucose,Urine (UA) Negative (Negative); Ketones,Urine Negative (Negative); Leukocyte Esterase,Urine Negative (Negative); Nitrite,Urine Negative (Negative); Protein,Urine Trace (Negative); Specific Gravity,Urine 1.021 (1.001-1.035); Urobilinogen,Urine <2.0 mg/dL (<2.0)
[2019-02-07] MEDS: DOXYCYCLINE 100 MG CAP PO SCH ×2 (17:50→19:25)
[2019-02-07] MEDS: methylPREDNISolone SOD SUCCI 125 MG/2 ML VIAL IV SCH ×2 (17:53→23:31)
[2019-02-07] MEDS ORDERED: HYDROmorphone 0.5 MG/0.5 ML SYRINGE IVP STA (17:56)
[2019-02-07] MEDS: IPRATROPIUM-ALBUTEROL 3 ML NEB INHALATION PRN (18:46)
[2019-02-07] MEDS: SYMBICORT 160-4.5 MCG INHALER INHALATION SCH (18:46)
[2019-02-07 20:32] LABS: Glucose,Whole Blood 160 mg/dL (75-99)
[2019-02-07] MEDS: oxyCODONE-APAP 10-325MG 1 EACH TAB PO PRN (21:37)
--- NOTE | 2019-02-07 23:24 | P.HPIM ---
History of Present Illness H&P Date: 02/07/19 Chief Complaint: Shortness of breath Patient is a 63-year-old male with a known history of COPD, hypertension, GERD, atrial flutter, obstructive sleep apnea on CPAP and previous history of smoking came to ER with complaints of difficulty in breathing worsening for the past 2 days. Patient was released from the hospital on 02/03/2019 and was treated for acute COPD exacerbation. Patient says that he has been having increasing cough and yellowish sputum production. Denied any chest pain. Patient does have chronic back pain and is getting worse with coughing and patient is requesting IV pain medications for that. Patient does take Percocet at home. Denied any fever or chills. No pleuritic chest pain. Denied any recent injury. No headache or dizziness or lightheadedness. No complaints of abdominal pain. No nausea vomiting or diarrhea or constipation. Denied any leg swelling. Chest x-ray showed no acute cardiopulmonary process. Flattening of the diaphra gm on the lateral view suggest underlying COPD. Hiatal hernia. Possible paraspinal mass cannot be excluded. Nonemergent CT thorax was recommended. EKG showed normal sinus rhythm. WBC 16.5, BNP 677 UA negative for infection. Review of Systems Constitutional: Patient denies any fever or chills . No generalized weakness or weight loss. Abdomen: Patient denied nausea vomiting and diarrhea and abdominal pain. Cardiovascular: Patient denies any chest pain or short of breath no palpitations. Respiratory: Does have cough with sputum production and shortness of breath Neurologic: Patient denied any numbness or tingling headache. Musculoskeletal: Patient denies any complaints of joint swelling or deformity. Back pain. Skin: Negative Psychiatric: Negative Endocrine: No heat or cold intolerance. No recent weight gain. Genitourinary: No dysuria or hematuria. All other 14 point ROS negative except the aboves Past Medical History Past Medical History: Atrial Flutter, Asthma, Chest Pain / Angina, COPD, GERD/Reflux, Hypertension, Osteoarthritis (OA), Pneumonia, Sleep Apnea/CPAP/BIPAP Additional Past Medical History / Comment(s): Back problems History of Any Multi-Drug Resistant Organisms: None Reported Past Surgical History: Adenoidectomy, Bowel Resection, Cholecystectomy Additional Past Surgical History / Comment(s): Nasal Past Anesthesia/Blood Transfusion Reactions: Previous Problems w/ Anesthesia, Motion Sickness Additional Past Anesthesia/Blood Transfusion Reaction / Comment(s): states "during procedure of checking something on my left lung,I turned blue and I was brought right back out anesthesia and proc was cancelled". clausterphobia Past Psychological History: Anxiety, Bipolar, Depression, Panic Disorder Smoking Status: Former smoker Past Alcohol Use History: Heavy, None Reported Past Drug Use History: Marijuana - Past Family History Mother Family Medical History: Asthma Additional Family Medical History / Comment(s): at age 62 Father Family Medical History: CVA/TIA Additional Family Medical History / Comment(s): at age 90 Medications and Allergies Home Medications Medication Instructions Recorded Confirmed Type Montelukast [Singulair] 10 mg PO DAILY 03/16/14 02/07/19 History Metoprolol Tartrate 25 mg PO DAILY 04/24/18 02/07/19 History Sertraline [Zoloft] 100 mg PO DAILY 11/04/18 02/07/19 History Tamsulosin [Flomax] 0.4 mg PO DAILY #10 cap 11/04/18 02/07/19 Rx hydrALAZINE HCL [Apresoline] 25 mg PO BID 11/04/18 02/07/19 History oxyCODONE-APAP 10-325MG [Percocet 1 tab PO QID PRN 11/04/18 02/07/19 History 10-325 mg] Eszopiclone [Lunesta] 2 mg PO HS PRN 12/29/18 02/07/19 History Finasteride [Proscar] 5 mg PO DAILY 12/29/18 02/07/19 History amLODIPine [Norvasc] 5 mg PO DAILY 12/29/18 02/07/19 History Budesonide-Formot 160-4.5 Mcg 2 puff INHALATION RT-BID puff 02/03/19 02/07/19 Rx [Symbicort 160-4.5 Mcg Inhaler] Ipratropium-Albuterol Nebulize 3 ml INHALATION RT-QID 02/07/19 02/07/19 History [Duoneb 0.5 mg-3 mg/3 ml Soln] predniSONE See Taper PO DAILY 02/07/19 02/07/19 History Allergies Allergy/AdvReac Type Severity Reaction Status Date / Time peanut Allergy alg testing Verified 02/07/19 13:45 pollen extracts Allergy Unknown Verified 02/07/19 13:45 DUST Allergy alg testing Uncoded 02/07/19 12:49 Physical Exam Vitals: Vital Signs Temp Pulse Resp BP Pulse Ox 02/07/19 17:00 59 L 148/89 94 L 02/07/19 16:30 61 156/95 94 L 02/07/19 16:00 62 142/82 95 02/07/19 15:30 62 135/79 95 02/07/19 15:00 63 144/83 96 02/07/19 14:08 61 02/07/19 14:00 64 22 135/90 97 02/07/19 13:50 59 L 24 135/90 98 02/07/19 13:43 96 02/07/19 13:40 59 L 02/07/19 13:38 22 02/07/19 13:19 60 02/07/19 12:47 98.4 F 62 24 135/74 96 Intake and Output 02/07/19 02/07/19 02/07/19 06:59 14:59 22:59 Other: Weight 95.254 kg PHYSICAL EXAMINATION: Patient is lying in the bed comfortably, no acute distress, awake alert and oriented.. HEENT: Normocephalic. Neck is supple. Pupils reactive. Nostrils clear. Oral cavity is moist. Ears reveal no drainage. Neck reveals no JVD, carotid bruits, or thyromegaly. CHEST EXAMINATION: Trachea is central. Symmetrical expansion. Bilateral diffuse rhonchi and wheezing.. CARDIAC: Normal S1, S2 with no gallops. No murmurs ABDOMEN: Soft. Bowel sounds normal. No organomegaly. No abdominal bruits. Extremities: reveal no edema. No clubbing or cyanosis Neurologically awake, alert, oriented x3 with well-coordinated movements. No focal deficits noted Skin: No rash or skin lesions. Psychiatric: Coperative. Nonsuicidal Musculoskeletal: No joint swelling or deformity. Normal range of motion. Results CBC & Chem 7: 02/07/19 13:32 02/07/19 13:32 Labs: Abnormal Lab Results - Last 24 Hours (Table) 02/07/19 02/07/19 02/07/19 Range/Units 13:32 13:32 15:45 WBC 16.2 H (3.8-10.6) k/uL Neutrophils # 11.5 H (1.3-7.7) k/uL Monocytes # 1.1 H (0-1.0) k/uL Eosinophils # 2.2 H (0-0.7) k/uL ALT 80 H (21-72) U/L Total Protein 5.6 L (6.3-8.2) g/dL Albumin 3.4 L (3.5-5.0) g/dL Urine Protein Trace H (Negative) Thrombosis Risk Factor Assmnt - DVT/VTE Prophylaxis DVT/VTE Prophylaxis: Pharmacologic Prophylaxis ordered Assessment and Plan Assessment: Acute COPD exacerbation due to purulent tracheobronchitis. Chronic back pain Obstructive sleep apnea on CPAP at home Hypertension Osteoarthritis Anxiety/depression/panic disorder and bipolar disorder Previous history of smoking and marijuana use DVT prophylaxis with heparin subcu GERD History of heavy alcohol use Plan: Patient will be continued on DuoNeb's, IV steroids and Symbicort. Current with antibiotics in the form of doxycycline. Sputum culture will be sent. Continue pain management with Percocet and follow up closely. Continue with home medications and further recommendations based on the clinical course. Pulmonary consult was placed. Time with Patient: Greater than 30
[2019-02-07] MEDS: HEPARIN SODIUM,PORCINE 5,000 UNIT/ML 1 ML VIAL SQ SCH (23:32)
[2019-02-08] MEDS: oxyCODONE-APAP 10-325MG 1 EACH TAB PO PRN ×4 (02:47→20:34)
[2019-02-08] MEDS: methylPREDNISolone SOD SUCCI 125 MG/2 ML VIAL IV SCH ×4 (05:06→23:21)
[2019-02-08 06:43] LABS: Glucose,Whole Blood 168 mg/dL (75-99)
[2019-02-08] MEDS: SYMBICORT 160-4.5 MCG INHALER INHALATION SCH ×2 (07:33→20:10)
[2019-02-08] MEDS: IPRATROPIUM-ALBUTEROL 3 ML NEB INHALATION PRN ×3 (07:34→20:10)
[2019-02-08] MEDS: DOXYCYCLINE 100 MG CAP PO SCH ×2 (08:35→20:27)
[2019-02-08] MEDS: amLODIPine 5 MG TAB PO SCH (08:35)
[2019-02-08] MEDS: SERTRALINE 100 MG TAB PO SCH (08:35)
[2019-02-08] MEDS: FAMOTIDINE 20 MG TAB PO SCH ×2 (08:35→20:27)
[2019-02-08] MEDS: HEPARIN SODIUM,PORCINE 5,000 UNIT/ML 1 ML VIAL SQ SCH ×3 (08:35→23:21)
[2019-02-08] MEDS: MONTELUKAST 10 MG TAB PO SCH (08:35)
[2019-02-08] MEDS: FINASTERIDE 5 MG TAB PO SCH (08:35)
[2019-02-08] MEDS: TAMSULOSIN 0.4 MG CAP.ER.24H PO SCH (08:35)
[2019-02-08 10:15] LABS: Basophils % (A) 0 %; Eosinophils % (A) 0 %; HCT 40.3 % (39.0-53.0); HGB 13.1 gm/dL (13.0-17.5); Lymphocytes # (A) 0.4 k/uL (1.0-4.8); Lymphocytes % (A) 4 %; MCH 31.3 pg (25.0-35.0); MCHC 32.6 g/dL (31.0-37.0); MCV 96.2 fL (80.0-100.0); Mean Platelet Volume 6.8; Monocytes # (A) 0.2 k/uL (0-1.0); Monocytes % (A) 2 %; Neutrophils # (A) 8.8 k/uL (1.3-7.7); Neutrophils % (A) 93 %; Platelet Count 193 k/uL (150-450); RBC 4.18 m/uL (4.30-5.90); RDW 14.9 % (11.5-15.5); WBC 9.5 k/uL (3.8-10.6)
[2019-02-08 10:27] LABS: African American GFR (CKD) >90 (>60 ml/min/1.73 sqM); Anion Gap 8 mmol/L; Blood Urea Nitrogen 28 mg/dL (9-20); Calcium 8.2 mg/dL (8.4-10.2); Carbon Dioxide 30 mmol/L (22-30); Chloride 101 mmol/L (98-107); Glucose 191 mg/dL (74-99); Potassium 3.8 mmol/L (3.5-5.1); Sodium 139 mmol/L (137-145)
[2019-02-08 11:52] LABS: Glucose,Whole Blood 131 mg/dL (75-99)
--- NOTE | 2019-02-08 15:09 | P.CONS ---
History of Present Illness - Chief Complaint Medical debility - History of Present Illness I had the opportunity to see patient for inpatient rehab consultation with regard to medical debility. Patient was admitted to [facility] yesterday with COPD exacerbation and shortness of breath. He is a frequent admitted for same reason. Note that he is known to me for chronic pain as an regimen of Percocet 10 4 times a day which she is on currently. I discussed with him that I'm not willing to advance the program in hospital or at home. I've added PT and OT this time because a history of a recent trip and fall. Review of Systems Review of systems: ENT: Denies sneezes or discharge. Eyes: Denies discharge or photophobia. Cardiac: Denies chest pain or palpitation. Pulmonary: Mild to moderate shortness of breath. Gastrointestinal: Denies nausea, emesis, constipation, diarrhea. Genitourinary: Denies discharge or frequency. Musculoskeletal: Chronic joint and back pain. Neurologic: Denies motor or sensory change. Endocrine: Denies shakes or sweats. Oncology: Denies cancers. Dermatologic: Denies rash, itching, pruritus. ALLERGY/immunology: Denies sneezes, rashes. Past Medical History Past Medical History: Atrial Flutter, Asthma, Chest Pain / Angina, COPD, GERD/Reflux, Hypertension, Osteoarthritis (OA), Pneumonia, Sleep Apnea/CPAP/ BIPAP Additional Past Medical History / Comment(s): Back problems History of Any Multi-Drug Resistant Organisms: None Reported Past Surgical History: Adenoidectomy, Bowel Resection, Cholecystectomy Additional Past Surgical History / Comment(s): Nasal Past Anesthesia/Blood Transfusion Reactions: Previous Problems w/ Anesthesia, Motion Sickness Additional Past Anesthesia/Blood Transfusion Reaction / Comm: states "during procedure of checking something on my left lung,I turned blue and I was brought right back out anesthesia and proc was cancelled". clausterphobia Past Psychological History: Anxiety, Bipolar, Depression, Panic Disorder Smoking Status: Former smoker Past Alcohol Use History: Heavy, None Reported Past Drug Use History: Marijuana - Past Family History Mother Family Medical History: Asthma Additional Family Medical History / Comment(s): at age 62 Father Family Medical History: CVA/TIA Additional Family Medical History / Comment(s): at age 90 Medications and Allergies Home Medications Medication Instructions Recorded Confirmed Type Montelukast [Singulair] 10 mg PO DAILY 03/16/14 02/07/19 History Metoprolol Tartrate 25 mg PO DAILY 04/24/18 02/07/19 History Sertraline [Zoloft] 100 mg PO DAILY 11/04/18 02/07/19 History Tamsulosin [Flomax] 0.4 mg PO DAILY #10 cap 11/04/18 02/07/19 Rx hydrALAZINE HCL [Apresoline] 25 mg PO BID 11/04/18 02/07/19 History oxyCODONE-APAP 10-325MG [Percocet 1 tab PO QID PRN 11/04/18 02/07/19 History 10-325 mg] Eszopiclone [Lunesta] 2 mg PO HS PRN 12/29/18 02/07/19 History Finasteride [Proscar] 5 mg PO DAILY 12/29/18 02/07/19 History amLODIPine [Norvasc] 5 mg PO DAILY 12/29/18 02/07/19 History Budesonide-Formot 160-4.5 Mcg 2 puff INHALATION RT-BID puff 02/03/19 02/07/19 Rx [Symbicort 160-4.5 Mcg Inhaler] Ipratropium-Albuterol Nebulize 3 ml INHALATION RT-QID 02/07/19 02/07/19 History [Duoneb 0.5 mg-3 mg/3 ml Soln] predniSONE See Taper PO DAILY 02/07/19 02/07/19 History Allergies Allergy/AdvReac Type Severity Reaction Status Date / Time peanut Allergy alg testing Verified 02/07/19 13:45 pollen extracts Allergy Unknown Verified 02/07/19 13:45 DUST Allergy alg testing Uncoded 02/07/19 12:49 Physical Exam Vitals: Vital Signs Temp Pulse Pulse Resp BP BP Pulse Ox 02/08/19 13:48 98.0 F 72 16 116/77 96 02/08/19 11:23 66 02/08/19 11:12 64 02/08/19 07:44 60 02/08/19 07:34 60 02/08/19 06:42 97.4 F L 59 L 18 114/68 97 02/07/19 23:00 97.4 F L 65 18 122/73 98 02/07/19 18:58 71 18 02/07/19 18:47 68 18 02/07/19 17:00 59 L 148/89 94 L 02/07/19 16:30 61 156/95 94 L 02/07/19 16:00 62 142/82 95 02/07/19 15:30 62 135/79 95 Intake and Output 02/08/19 02/08/19 02/08/19 06:59 14:59 22:59 Other: # Voids 2 2 Skin: Good color, texture, turgor. General: Medium build and comfortable appearance. Head: Normocephalic, atraumatic. Eyes: Symmetric. Pupils equal round. Ears: Symmetric. Hearing within normal limits. Mouth: Clear. Neck: Supple. Carotid without bruit. Cardiac: Regular rate and rhythm. Lungs: Chest symmetric in breathing symmetric. Abdomen: Soft active nontender. Extremities: Normal tone. Neurological: Mental status: Alert, cooperative, pleasant. Cranial nerves: Symmetric facial tone and trapezius. Motor: Normal strength and isolation all 4 limbs. Sensation: Intact throughout. DTRs: Symmetric and equal throughout. Mobility: Bed mobility without physical assistance. Results CBC & Chem 7: 02/08/19 09:22 02/08/19 09:22 Labs: Abnormal Lab Results - Last 24 Hours (Table) 02/07/19 02/07/19 02/08/19 Range/Units 15:45 20:07 06:38 RBC (4.30-5.90) m/uL Neutrophils # (1.3-7.7) k/uL Lymphocytes # (1.0-4.8) k/uL BUN (9-20) mg/dL Glucose (74-99) mg/dL POC Glucose (mg/dL) 160 H 168 H (75-99) mg/dL Calcium (8.4-10.2) mg/dL Urine Protein Trace H (Negative) 02/08/19 02/08/19 02/08/19 Range/Units 09:22 09:22 11:39 RBC 4.18 L (4.30-5.90) m/uL Neutrophils # 8.8 H (1.3-7.7) k/uL Lymphocytes # 0.4 L (1.0-4.8) k/uL BUN 28 H (9-20) mg/dL Glucose 191 H (74-99) mg/dL POC Glucose (mg/dL) 131 H (75-99) mg/dL Calcium 8.2 L (8.4-10.2) mg/dL Urine Protein (Negative) Assessment and Plan (1) Acute exacerbation of chronic obstructive airways disease Current Visit: Yes Status: Acute Code(s): J44.1 - CHRONIC OBSTRUCTIVE PULMONARY DISEASE W (ACUTE) EXACERBATION SNOMED Code(s): 111611961 Plan: Impression: 1. Medical debility. 2. COPD exacerbation. 3. Chronic pain syndrome. The plan: At this time prescribed PT and OT because history of recent fall. Patient is on chronic pain management Percocet 10 4 times a day which is currently order and thus I will not adjusted. I discussed with patient that this will be a maximum regimen in hospital or at home, for whatever reason.
--- NOTE | 2019-02-08 15:38 | P.CNPUL ---
History of Present Illness Consult date: 02/08/19 Reason for consult: dyspnea, cough, obstructive sleep apnea Chief complaint: Shortness of breath cough and wheezing for last 3 or 4 days History of present illness: 63-year-old male well-known to me with prior history of COPD hypertension GERD and atrial fibrillation he has a history of sleep disorder breathing and sleep apnea for 3 or 4 days he is having cough congestion shortness of breath started having wheezing up to a point that he had severe shortness of breath with audible wheezing decided to come into the hospital for further evaluation and admitted Review of Systems All systems: negative Past Medical History Past Medical History: Atrial Flutter, Asthma, Chest Pain / Angina, COPD, GERD/Reflux, Hypertension, Osteoarthritis (OA), Pneumonia, Sleep Apnea/CPAP/BIPAP Additional Past Medical History / Comment(s): Back problems History of Any Multi-Drug Resistant Organisms: None Reported Past Surgical History: Adenoidectomy, Bowel Resection, Cholecystectomy Additional Past Surgical History / Comment(s): Nasal Past Anesthesia/Blood Transfusion Reactions: Previous Problems w/ Anesthesia, Motion Sickness Additional Past Anesthesia/Blood Transfusion Reaction / Comment(s): states "during procedure of checking something on my left lung,I turned blue and I was brought right back out anesthesia and proc was cancelled". clausterphobia Past Psychological History: Anxiety, Bipolar, Depression, Panic Disorder Smoking Status: Former smoker Past Alcohol Use History: Heavy, None Reported Past Drug Use History: Marijuana - Past Family History Mother Family Medical History: Asthma Additional Family Medical History / Comment(s): at age 62 Father Family Medical History: CVA/TIA Additional Family Medical History / Comment(s): at age 90 Medications and Allergies Home Medications Medication Instructions Recorded Confirmed Type Montelukast [Singulair] 10 mg PO DAILY 03/16/14 02/07/19 History Metoprolol Tartrate 25 mg PO DAILY 04/24/18 02/07/19 History Sertraline [Zoloft] 100 mg PO DAILY 11/04/18 02/07/19 History Tamsulosin [Flomax] 0.4 mg PO DAILY #10 cap 11/04/18 02/07/19 Rx hydrALAZINE HCL [Apresoline] 25 mg PO BID 11/04/18 02/07/19 History oxyCODONE-APAP 10-325MG [Percocet 1 tab PO QID PRN 11/04/18 02/07/19 History 10-325 mg] Eszopiclone [Lunesta] 2 mg PO HS PRN 12/29/18 02/07/19 History Finasteride [Proscar] 5 mg PO DAILY 12/29/18 02/07/19 History amLODIPine [Norvasc] 5 mg PO DAILY 12/29/18 02/07/19 History Budesonide-Formot 160-4.5 Mcg 2 puff INHALATION RT-BID puff 02/03/19 02/07/19 Rx [Symbicort 160-4.5 Mcg Inhaler] Ipratropium-Albuterol Nebulize 3 ml INHALATION RT-QID 02/07/19 02/07/19 History [Duoneb 0.5 mg-3 mg/3 ml Soln] predniSONE See Taper PO DAILY 02/07/19 02/07/19 History Allergies Allergy/AdvReac Type Severity Reaction Status Date / Time peanut Allergy alg testing Verified 02/07/19 13:45 pollen extracts Allergy Unknown Verified 02/07/19 13:45 DUST Allergy alg testing Uncoded 02/07/19 12:49 Physical Exam Vitals: Vital Signs Temp Pulse Pulse Resp BP BP Pulse Ox 02/08/19 13:48 98.0 F 72 16 116/77 96 02/08/19 11:23 66 02/08/19 11:12 64 02/08/19 07:44 60 02/08/19 07:34 60 02/08/19 06:42 97.4 F L 59 L 18 114/68 97 02/07/19 23:00 97.4 F L 65 18 122/73 98 02/07/19 18:58 71 18 02/07/19 18:47 68 18 02/07/19 17:00 59 L 148/89 94 L 02/07/19 16:30 61 156/95 94 L 02/07/19 16:00 62 142/82 95 Intake and Output 02/08/19 02/08/19 02/08/19 06:59 14:59 22:59 Other: # Voids 2 2 - Constitutional General appearance: average body habitus, disheveled, morbidly obese - EENT Eyes: EOMI, PERRLA, poor dentition Ears: bilateral: normal - Neck Carotids: bilateral: upstroke normal Thyroid: bilateral: normal size - Respiratory Respiratory: bilateral: diminished, wheezing - Cardiovascular Rhythm: regular Heart sounds: normal: S1, S2 - Integumentary Integumentary: decreased turgor, normal turgor - Neurologic Neurologic: CNII-XII intact - Musculoskeletal Musculoskeletal: gait normal, generalized weakness, strength equal bilaterally - Psychiatric Psychiatric: A&O x's 3, appropriate affect, intact judgment & insight Results - Laboratory Findings CBC and BMP: 02/08/19 09:22 02/08/19 09:22 PT/INR, D-dimer PT 10.5 sec (9.0-12.0) 02/07/19 13:32 INR 1.0 (<1.2) 02/07/19 13:32 Abnormal lab findings: Abnormal Labs 02/07/19 02/07/19 02/07/19 13:32 13:32 15:45 WBC 16.2 H RBC Neutrophils # 11.5 H Lymphocytes # Monocytes # 1.1 H Eosinophils # 2.2 H BUN Glucose POC Glucose (mg/dL) Calcium ALT 80 H Total Protein 5.6 L Albumin 3.4 L Urine Protein Trace H 02/07/19 02/08/19 02/08/19 20:07 06:38 09:22 WBC RBC 4.18 L Neutrophils # 8.8 H Lymphocytes # 0.4 L Monocytes # Eosinophils # BUN Glucose POC Glucose (mg/dL) 160 H 168 H Calcium ALT Total Protein Albumin Urine Protein 02/08/19 02/08/19 09:22 11:39 WBC RBC Neutrophils # Lymphocytes # Monocytes # Eosinophils # BUN 28 H Glucose 191 H POC Glucose (mg/dL) 131 H Calcium 8.2 L ALT Total Protein Albumin Urine Protein - Diagnostic Findings Chest x-ray: report reviewed, image reviewed Assessment and Plan Assessment: Acute COPD exacerbation Acute on chronic hypoxic respiratory failure Obstructive sleep apnea Purulent tracheobronchitis Chronic pain syndrome Plan: IV steroids Breathing treatment Antibiotics oral Continue supplemental oxygen Continue home medications Pain management as per Dr. Marcus Follow clinical course closely further recommendations pending Time with Patient: Greater than 30
--- NOTE | 2019-02-08 16:26 | P.PN ---
Subjective Progress Note Date: 02/08/19 Principal diagnosis: This is a 63-year-old male with a known history of COPD and chronic pain that was recently admitted and discharged last week for COPD exacerbation. Patient states that his shortness of breath worsened along with the cough and patient came in again to be admitted. Patient is currently admitted for COPD exacerbation. Patient states that he has a cough and has been having phlegm production today and the breathing treatments have been helping. Patient con tinues to have some shortness of breath with exertion. Patient denies any chest pain or palpitations at this time. Patient is having a lot of pain in his neck and back as this is chronic. Awaiting a consult with Dr. Marcus. Patient is currently on Percocets 4 times a day. Patient is requesting for IV Dilaudid as this helps with his pain he states. Patient is currently sitting in bed watching TV in no acute distress. Patient will be closely monitored Physical exam: On exam patient is alert and oriented 3. Vital signs are stable with a blood pressure 116/77, temp is 98F, pulse is 72, respirations 16, pulse ox is 96% on 2 L nasal cannula HEENT: Conjunctiva normal, EOMs intact Neck: No jugular venous distention, supple, no lymph nodes noted Cardiovascular: S1-S2 muffled Respiratory: Breath sounds diminished bilaterally at the bases a few scattered rhonchi and crackles noted along with expiratory wheezing Abdomen: Soft, nontender, obese Legs: No edema or swelling noted Nervous system: No focal deficits Labs: WBCs 9.5, hemoglobin 13.1, BUNs 28, current glucose 131 Assessment 1. Acute COPD exacerbation due to purulent tracheobronchitis 2. Chronic back and neck pain 3. Obstructive sleep apnea on CPAP at home 4. Hypertension 5. Osteoarthritis 6. Anxiety, depression, panic disorder, and bipolar disorder 7. Previous history of smoking and marijuana use 8. DVT prophylaxis with heparin subq 9. Gastroesophageal reflux disease 10. History of heavy alcohol use Recommendations and discussion Recommend continue current medications and continue symptomatic treatment. C ontinue with bronchodilators and IV steroids. Patient is currently on oral doxycycline and will continue on this medication per Dr. Granados. Continue current pain management regimen with Percocets and will await Dr. Marcus consult for further instructions. We'll continue to follow the patient closely and make continue current home medications. Prognosis is guarded. Further recommendations to follow. Probable discharge in the next 48 hours. Objective - Vital Signs Vital signs: Vital Signs Temp 98.0 F 02/08/19 13:48 Pulse 72 02/08/19 13:48 Resp 16 02/08/19 13:48 BP 116/77 02/08/19 13:48 Pulse Ox 96 02/08/19 13:48 Intake & Output 02/07/19 02/08/19 02/08/19 18:59 06:59 18:59 Weight 95.254 kg Other: # Voids 2 2 - Labs CBC & Chem 7: 02/08/19 09:22 02/08/19 09:22 Labs: Abnormal Lab Results - Last 24 Hours (Table) 02/07/19 02/08/19 02/08/19 Range/Units 20:07 06:38 09:22 RBC 4.18 L (4.30-5.90) m/uL Neutrophils # 8.8 H (1.3-7.7) k/uL Lymphocytes # 0.4 L (1.0-4.8) k/uL BUN (9-20) mg/dL Glucose (74-99) mg/dL POC Glucose (mg/dL) 160 H 168 H (75-99) mg/dL Calcium (8.4-10.2) mg/dL 02/08/19 02/08/19 Range/Units 09:22 11:39 RBC (4.30-5.90) m/uL Neutrophils # (1.3-7.7) k/uL Lymphocytes # (1.0-4.8) k/uL BUN 28 H (9-20) mg/dL Glucose 191 H (74-99) mg/dL POC Glucose (mg/dL) 131 H (75-99) mg/dL Calcium 8.2 L (8.4-10.2) mg/dL Microbiology - Last 24 Hours (Table) 02/07/19 13:32 Blood Culture - Preliminary Blood No Growth after 24 hours
[2019-02-08 17:16] LABS: Glucose,Whole Blood 173 mg/dL (75-99)
[2019-02-08 20:29] LABS: Glucose,Whole Blood 152 mg/dL (75-99)
[2019-02-09] MEDS: oxyCODONE-APAP 10-325MG 1 EACH TAB PO PRN ×4 (03:03→20:44)
[2019-02-09] MEDS: methylPREDNISolone SOD SUCCI 125 MG/2 ML VIAL IV SCH ×4 (05:17→23:48)
[2019-02-09 07:24] LABS: Glucose,Whole Blood 134 mg/dL (75-99)
[2019-02-09] MEDS: HEPARIN SODIUM,PORCINE 5,000 UNIT/ML 1 ML VIAL SQ SCH ×3 (08:18→23:48)
[2019-02-09] MEDS: FAMOTIDINE 20 MG TAB PO SCH ×2 (08:18→20:44)
[2019-02-09] MEDS: TAMSULOSIN 0.4 MG CAP.ER.24H PO SCH (08:18)
[2019-02-09] MEDS: DOXYCYCLINE 100 MG CAP PO SCH ×2 (08:18→20:44)
[2019-02-09] MEDS: MONTELUKAST 10 MG TAB PO SCH (08:18)
[2019-02-09] MEDS: amLODIPine 5 MG TAB PO SCH (08:18)
[2019-02-09] MEDS: FINASTERIDE 5 MG TAB PO SCH (08:18)
[2019-02-09] MEDS: SERTRALINE 100 MG TAB PO SCH (08:18)
[2019-02-09] MEDS: IPRATROPIUM-ALBUTEROL 3 ML NEB INHALATION PRN ×3 (09:10→18:47)
[2019-02-09] MEDS: SYMBICORT 160-4.5 MCG INHALER INHALATION SCH ×2 (09:10→18:47)
[2019-02-09 12:01] LABS: Glucose,Whole Blood 144 mg/dL (75-99)
[2019-02-09 16:48] LABS: Glucose,Whole Blood 139 mg/dL (75-99)
--- NOTE | 2019-02-09 18:11 | P.PN ---
Subjective Progress Note Date: 02/16/19 02/09/2019, patient seen eval reexamined during the rounds cuff congestion shortness of breath is present ongoing in addition to spine pain noted that patient has been on IV steroids, labs reviewed medications reviewed 63-year-old male well-known to me with prior history of COPD hypertension GERD and atrial fibrillation he has a history of sleep disorder breathing and sleep apnea for 3 or 4 days he is having cough congestion shortness of breath started having wheezing up to a point that he had severe shortness of breath with audible wheezing decided to come into the hospital for further evaluation and admitted Objective - Vital Signs Vital signs: Vital Signs Temp 97.8 F 02/09/19 13:21 Pulse 72 02/09/19 15:46 Resp 16 02/09/19 13:21 BP 127/82 02/09/19 13:21 Pulse Ox 95 02/09/19 15:35 Intake & Output 02/08/19 02/09/19 02/09/19 18:59 06:59 18:59 Intake Total 986 733 8704 Balance 727 345 9449 Intake: Oral 378 508 4834 Other: # Voids 4 2 2 - Exam - Constitutional General appearance: average body habitus, disheveled, morbidly obese - EENT Eyes: EOMI, PERRLA, poor dentition Ears: bilateral: normal - Neck Carotids: bilateral: upstroke normal Thyroid: bilateral: normal size - Respiratory Respiratory: bilateral: diminished, wheezing - Cardiovascular Rhythm: regular Heart sounds: normal: S1, S2 - Integumentary Integumentary: decreased turgor, normal turgor - Neurologic Neurologic: CNII-XII intact - Musculoskeletal Musculoskeletal: gait normal, generalized weakness, strength equal bilaterally - Psychiatric Psychiatric: A&O x's 3, appropriate affect, intact judgment & insight - Labs CBC & Chem 7: 02/08/19 09:22 02/08/19 09:22 Labs: Abnormal Lab Results - Last 24 Hours (Table) 02/08/19 02/09/19 02/09/19 Range/Units 20:27 07:06 11:45 POC Glucose (mg/dL) 152 H 134 H 144 H (75-99) mg/dL 02/09/19 Range/Units 16:30 POC Glucose (mg/dL) 139 H (75-99) mg/dL Microbiology - Last 24 Hours (Table) 02/07/19 13:32 Blood Culture - Preliminary Blood No Growth after 48 hours Assessment and Plan Assessment: Acute COPD exacerbation Acute on chronic hypoxic respiratory failure Obstructive sleep apnea Purulent tracheobronchitis Chronic pain syndrome Plan: IV steroids Breathing treatment Antibiotics oral Continue supplemental oxygen Continue home medications Pain management as per Dr. Marcus Follow clinical course closely further recommendations pending Time with Patient: Greater than 30
[2019-02-09 21:11] LABS: Glucose,Whole Blood 160 mg/dL (75-99)
--- NOTE | 2019-02-09 22:58 | P.PN ---
Subjective Progress Note Date: 02/09/19 Principal diagnosis: This is a 63-year-old male with a known history of COPD and chronic pain that was recently admitted and discharged last week for COPD exacerbation. Patient states that his shortness of breath worsened along with the cough and patient came in again to be admitted. Patient is currently admitted for COPD exacerbation. Patient states that he has a cough and has been having phlegm production today and the breathing treatments have been helping. Patient con tinues to have some shortness of breath with exertion. Patient denies any chest pain or palpitations at this time. Patient is having a lot of pain in his neck and back as this is chronic. Awaiting a consult with Dr. Marcus. Patient is currently on Percocets 4 times a day. Patient is requesting for IV Dilaudid as this helps with his pain he states. Patient is currently sitting in bed watching TV in no acute distress. Patient will be closely monitored Today 02/09/19 patient is still having neck and back pain that is chronic and still requesting IV dilaudid. Explained in detail that this was not an option at this time as his pain is being managed with percocet. Patient denies any increase shortness of breath, still having some cough with congestion, and has been afebrile. Patient denies any chest pain or palpitations at this time. Dr. Granados is following the patient closely. Physical exam: On exam patient is alert and oriented 3. Vital signs are stable. HEENT: Conjunctiva normal, EOMs intact Neck: No jugular venous distention, supple, no lymph nodes noted Cardiovascular: S1-S2 muffled Respiratory: Breath sounds diminished bilaterally at the bases a few scattered rhonchi and crackles noted along with expiratory wheezing Abdomen: Soft, nontender, obese Legs: No edema or swelling noted Nervous system: No focal deficits Assessment 1. Acute COPD exacerbation due to purulent tracheobronchitis 2. Chronic back and neck pain 3. Obstructive sleep apnea on CPAP at home 4. Hypertension 5. Osteoarthritis 6. Anxiety, depression, panic disorder, and bipolar disorder 7. Previous history of smoking and marijuana use 8. DVT prophylaxis with heparin subq 9. Gastroesophageal reflux disease 10. History of heavy alcohol use Recommendations and discussion Recommend continuing current medications and continue symptomatic treatment. Continue with bronchodilators and IV steroids. Patient is currently on oral doxycycline and will continue on this medication per Dr. Granados. Continue current pain management regimen with Percocet per Dr. Marcus as he mentioned that he will not change the current home regimen. We'll continue to follow the patient closely and may continue current home medications. Prognosis is guarded. Further recommendations to follow. Probable discharge in the next 24 hours. Objective - Vital Signs Vital signs: Vital Signs Temp 97.9 F 02/09/19 22:39 Pulse 80 02/09/19 22:39 Resp 16 02/09/19 22:39 BP 127/75 02/09/19 22:39 Pulse Ox 93 L 02/09/19 22:39 Intake & Output 02/09/19 02/09/19 02/10/19 06:59 18:59 06:59 Intake Total 300 1080 Output Total 250 Balance 300 1080 -250 Intake: Oral 300 1080 Output: Urine 250 Other: # Voids 2 1 - Labs CBC & Chem 7: 02/08/19 09:22 02/08/19 09:22 Labs: Abnormal Lab Results - Last 24 Hours (Table) 02/09/19 02/09/19 02/09/19 Range/Units 07:06 11:45 16:30 POC Glucose (mg/dL) 134 H 144 H 139 H (75-99) mg/dL 02/09/19 Range/Units 21:09 POC Glucose (mg/dL) 160 H (75-99) mg/dL Microbiology - Last 24 Hours (Table) 02/07/19 13:32 Blood Culture - Preliminary Blood No Growth after 48 hours
[2019-02-10] MEDS: oxyCODONE-APAP 10-325MG 1 EACH TAB PO PRN ×2 (04:22→10:27)
[2019-02-10] MEDS: methylPREDNISolone SOD SUCCI 125 MG/2 ML VIAL IV SCH (05:29)
[2019-02-10 06:08] VITALS: BP 134/86; TEMP 97.6
[2019-02-10] MEDS: IPRATROPIUM-ALBUTEROL 3 ML NEB INHALATION PRN (07:14)
[2019-02-10] MEDS: SYMBICORT 160-4.5 MCG INHALER INHALATION SCH (07:14)
[2019-02-10 07:17] LABS: Glucose,Whole Blood 129 mg/dL (75-99)
[2019-02-10] MEDS: TAMSULOSIN 0.4 MG CAP.ER.24H PO SCH (07:19)
[2019-02-10] MEDS: SERTRALINE 100 MG TAB PO SCH (07:19)
[2019-02-10] MEDS: MONTELUKAST 10 MG TAB PO SCH (07:19)
[2019-02-10] MEDS: FAMOTIDINE 20 MG TAB PO SCH (07:19)
[2019-02-10] MEDS: FINASTERIDE 5 MG TAB PO SCH (07:19)
[2019-02-10] MEDS: HEPARIN SODIUM,PORCINE 5,000 UNIT/ML 1 ML VIAL SQ SCH (07:19)
[2019-02-10] MEDS: DOXYCYCLINE 100 MG CAP PO SCH (07:19)
[2019-02-10] MEDS: amLODIPine 5 MG TAB PO SCH (07:19)
[2019-02-10 07:33] VITALS: PULSE 68
[2019-02-10 08:32] VITALS: RESP 20
--- NOTE | 2019-02-10 14:46 | P.DS ---
Providers Date of admission: 02/07/19 15:39 Expected date of discharge: 02/10/19 Attending physician: Moustapha Morgan Consults: 02/07/19 17:24 Consult Physician Routine Consulting Provider: Nehemiah Granados Consult Reason/Comments: COPD Do you want consulting provider notified?: Yes 02/08/19 11:31 Consult Physician Routine Consulting Provider: George Trammell Consult Reason/Comments: pain mgmt Do you want consulting provider notified?: Yes Primary care physician: Deborah Marie [place] [facility] Course: Final diagnosis Acute COPD exacerbation due to purulent tracheobronchitis Chronic back and neck pain Obstructive sleep apnea, on CPAP at home Hypertension Osteoarthritis Anxiety, depression, panic disorder, and bipolar disorder Previous history of smoking and marijuana use Gastroesophageal reflux disease History of heavy alcohol use Discharge disposition The patient is being discharged in a stable condition with guarded prognosis to home and to follow-up with primary care provider, Dr. Granados, and Dr. Trammell for chronic pain management. Patient will go home continuing his oral antibiotics and oral steroids. History of present illness This is a 63-year-old male with a known history of COPD and chronic pain most recently admitted for COPD exacerbation last week. Patient states that his shortness of breath, cough, and congestion had become severe and that's why he came back. Today patient is resting comfortably in his bed and easily arousable. Patient is still having some shortness of breath and cough with expiratory wheezing but this is chronic in nature. Patient oxygen saturation while walking maintain 92% on room air. Patient denies any chest pain, palpitations, fever, dizziness, or lightheadedness at this time. Per Dr. Trammell with pain management patient will continue with his Percocet 4 times daily and no changes to that medication at this time. patient is being discharged in a stable condition with guarded prognosis and was instructed to complete his antibiotics and steroids. On exam vital signs are stable. Cardio S1 and S2 are muffled. Respiratory system shows diminished lung sounds with expiratory wheezing. Abdomen is soft, obese, non-tender. Nervous system shows no new focal deficits and gait is steady. Please refer to the medication reconciliation sheet for list of medications Patient Condition at Discharge: Fair Plan - Discharge Summary New Discharge Prescriptions: New Doxycycline [Vibramycin] 100 mg PO BID cap Continue Montelukast [Singulair] 10 mg PO DAILY Metoprolol Tartrate 25 mg PO DAILY hydrALAZINE HCL [Apresoline] 25 mg PO BID oxyCODONE-APAP 10-325MG [Percocet 10-325 mg] 1 tab PO QID PRN PRN Reason: Pain Sertraline [Zoloft] 100 mg PO DAILY Tamsulosin [Flomax] 0.4 mg PO DAILY #10 cap amLODIPine [Norvasc] 5 mg PO DAILY Eszopiclone [Lunesta] 2 mg PO HS PRN PRN Reason: Insomnia Finasteride [Proscar] 5 mg PO DAILY Budesonide-Formot 160-4.5 Mcg [Symbicort 160-4.5 Mcg Inhaler] 2 puff INHALATION RT-BID puff predniSONE See Taper PO DAILY Ipratropium-Albuterol Nebulize [Duoneb 0.5 mg-3 mg/3 ml Soln] 3 ml INHALATION RT-QID Discharge Medication List Montelukast [Singulair] 10 mg PO DAILY 03/16/14 [History] Metoprolol Tartrate 25 mg PO DAILY 04/24/18 [History] Sertraline [Zoloft] 100 mg PO DAILY 11/04/18 [History] Tamsulosin [Flomax] 0.4 mg PO DAILY #10 cap 11/04/18 [Rx] hydrALAZINE HCL [Apresoline] 25 mg PO BID 11/04/18 [History] oxyCODONE-APAP 10-325MG [Percocet 10-325 mg] 1 tab PO QID PRN 11/04/18 [History] Eszopiclone [Lunesta] 2 mg PO HS PRN 12/29/18 [History] Finasteride [Proscar] 5 mg PO DAILY 12/29/18 [History] amLODIPine [Norvasc] 5 mg PO DAILY 12/29/18 [History] Budesonide-Formot 160-4.5 Mcg [Symbicort 160-4.5 Mcg Inhaler] 2 puff INHALATION RT-BID puff 02/03/19 [Rx] Ipratropium-Albuterol Nebulize [Duoneb 0.5 mg-3 mg/3 ml Soln] 3 ml INHALATION RT-QID 02/07/19 [History] predniSONE See Taper PO DAILY 02/07/19 [History] Doxycycline [Vibramycin] 100 mg PO BID cap 02/10/19 [Rx] Follow up Appointment(s)/Referral(s): Deborah Shah III, MD [Primary Care Provider] - 1-2 days George Trammell MD [STAFF PHYSICIAN] - 1 Week Patient Instructions/Handouts: COPD (Chronic Obstructive Pulmonary Disease) (DC) Activity/Diet/Wound Care/Special Instructions: Activity Limited until follow-up Continue current diet Continue with oral antibiotics and oral steroids as prescribed Follow-up with primary care provider this week Discharge Disposition: HOME SELF-CARE
== END 2019-02-10 11:13 | disposition home or self-care (01) ==
LOC: EC 12:29 → 4MS4W 15:39
PROVIDERS: ADMIT Internal Medicine; ATTEND Internal Medicine
DX: J44.1 Chronic obstructive pulmonary disease with (acute) exacerbation (principal); J20.9 Acute bronchitis, unspecified; J44.0 Chronic obstructive pulmonary disease with (acute) lower respiratory infection; J96.21 Acute and chronic respiratory failure with hypoxia; E66.9 Obesity, unspecified; Z68.30 Body mass index [BMI] 30.0-30.9, adult; F31.9 Bipolar disorder, unspecified; M54.9 Dorsalgia, unspecified; M54.2 Cervicalgia; F41.0 Panic disorder [episodic paroxysmal anxiety]; G47.33 Obstructive sleep apnea (adult) (pediatric); Z99.89 Dependence on other enabling machines and devices; K21.9 Gastro-esophageal reflux disease without esophagitis; I10 Essential (primary) hypertension; R53.81 Other malaise; G89.4 Chronic pain syndrome; K44.9 Diaphragmatic hernia without obstruction or gangrene; Z90.49 Acquired absence of other specified parts of digestive tract; Z87.891 Personal history of nicotine dependence; I45.10 Unspecified right bundle-branch block; M19.90 Unspecified osteoarthritis, unspecified site; Z87.01 Personal history of pneumonia (recurrent); Z79.51 Long term (current) use of inhaled steroids; Z79.899 Other long term (current) drug therapy; Z79.891 Long term (current) use of opiate analgesic; Z79.52 Long term (current) use of systemic steroids; Z88.8 Allergy status to other drugs, medicaments and biological substances; Z91.010 Allergy to peanuts; Z82.5 Family history of asthma and other chronic lower respiratory diseases
CPT/HCPCS: 96376 ×4; 96372 ×3; 96375 ×2; 96374; 99291; 36415; 94640 ×7; 94644; 93005; 97161; 97165; 83880; 80053; 80048; 83605; 83735; 84484; 85025 ×2; 85610; 85730; 81003; 87040; 71046; G0378 ×4; S0138 ×3; J1644 ×4; J2930 ×4; J1885; J1170

== ENCOUNTER 2019-02-12 03:50 | Emergency (ER) | payer MEDICARE ==
[2019-02-12 03:54] VITALS: TEMP 97.7
[2019-02-12] MEDS ORDERED: oxyCODONE-APAP 10-325MG 1 EACH TAB PO STA (04:08)
[2019-02-12] MEDS ORDERED: IPRATROPIUM-ALBUTEROL 3 ML NEB INHALATION STA (04:08)
--- NOTE | 2019-02-12 04:08 | ED ---
SOB HPI - General Chief Complaint: Shortness of Breath Stated Complaint: SOB Time Seen by Provider: 02/12/19 04:07 Source: patient Mode of arrival: ambulatory Limitations: no limitations - History of Present Illness Initial Comments: Milo is a 63-year-old gentleman with a history of COPD and chronic pain who is very well-known to the emergency department for his very regularly night visits. Patient presents today with report of wheezing. also reports that due to having a cough he has pain in his back this is chronic for him unchanged patient does report that he has been unable to get Percocet. He reports that he had a prescription in his wallet and he lost his wallet with his ID and he now cannot get any narcotics filled. Patient denies any chest pain Or palpitations he denies any recent fevers. He reports he has a nonproductive cough and expiratory wheezing. - Related Data Home Medications Medication Instructions Recorded Confirmed Montelukast [Singulair] 10 mg PO DAILY 03/16/14 02/07/19 Metoprolol Tartrate 25 mg PO DAILY 04/24/18 02/07/19 Sertraline [Zoloft] 100 mg PO DAILY 11/04/18 02/07/19 hydrALAZINE HCL [Apresoline] 25 mg PO BID 11/04/18 02/07/19 oxyCODONE-APAP 10-325MG [Percocet 1 tab PO QID PRN 11/04/18 02/07/19 10-325 mg] Eszopiclone [Lunesta] 2 mg PO HS PRN 12/29/18 02/07/19 Finasteride [Proscar] 5 mg PO DAILY 12/29/18 02/07/19 amLODIPine [Norvasc] 5 mg PO DAILY 12/29/18 02/07/19 Ipratropium-Albuterol Nebulize 3 ml INHALATION RT-QID 02/07/19 02/07/19 [Duoneb 0.5 mg-3 mg/3 ml Soln] predniSONE See Taper PO DAILY 02/07/19 02/07/19 Previous Rx's Medication Instructions Recorded Tamsulosin [Flomax] 0.4 mg PO DAILY #10 cap 11/04/18 Budesonide-Formot 160-4.5 Mcg 2 puff INHALATION RT-BID puff 02/03/19 [Symbicort 160-4.5 Mcg Inhaler] Doxycycline [Vibramycin] 100 mg PO BID cap 02/10/19 Allergies Allergy/AdvReac Type Severity Reaction Status Date / Time peanut Allergy alg testing Verified 02/07/19 13:45 pollen extracts Allergy Unknown Verified 02/07/19 13:45 DUST Allergy alg testing Uncoded 02/07/19 12:49 Review of Systems ROS Statement: Those systems with pertinent positive or pertinent negative responses have been documented in the HPI. ROS Other: All systems not noted in ROS Statement are negative. Past Medical History Past Medical History: Atrial Flutter, Asthma, Chest Pain / Angina, COPD, GERD/Reflux, Hypertension, Osteoarthritis (OA), Pneumonia, Sleep Apnea/CPAP/BIPAP Additional Past Medical History / Comment(s): Back problems History of Any Multi-Drug Resistant Organisms: None Reported Past Surgical History: Adenoidectomy, Bowel Resection, Cholecystectomy Additional Past Surgical History / Comment(s): Nasal Past Anesthesia/Blood Transfusion Reactions: Previous Problems w/ Anesthesia, Motion Sickness Additional Past Anesthesia/Blood Transfusion Reaction / Comment(s): states "during procedure of checking something on my left lung,I turned blue and I was brought right back out anesthesia and proc was cancelled". clausterphobia Past Psychological History: Anxiety, Bipolar, Depression, Panic Disorder Smoking Status: Former smoker Past Alcohol Use History: Heavy, None Reported Past Drug Use History: Marijuana - Past Family History Mother Family Medical History: Asthma Additional Family Medical History / Comment(s): at age 62 Father Family Medical History: CVA/TIA Additional Family Medical History / Comment(s): at age 90 General Exam - General Exam Comments Initial Comments: Physical Exam GENERAL: Patient is well-developed and well-nourished. Patient is nontoxic and well- hydrated and is in no distress. HENT: Normocephalic, Atraumatic. EYES: PERRL, EOMI PULMONARY: Forced expiratory wheezing CARDIOVASCULAR: There is a regular rate and rhythm without any murmurs gallops or rubs. ABDOMEN: Soft and nontender with normal bowel sounds. SKIN: Skin is clear with no lesions or rashes and otherwise unremarkable. : Deferred NEUROLOGIC: Patient is alert and oriented x3. Moving all extremities spontaneously MUSCULOSKELETAL: Normal extremities with adequate strength and full range of motion. No lower extremity swelling or edema. No calf tenderness. PSYCHIATRIC: Normal psychiatric evaluation. Limitations: no limitations Limitations: no limitations Course Vital Signs 02/12/19 02/12/19 02/12/19 03:51 04:00 04:36 Temperature 97.7 F Pulse Rate 76 67 Respiratory 20 14 Rate Blood Pressure 149/93 O2 Sat by Pulse 98 Oximetry 02/12/19 04:44 Temperature Pulse Rate 70 Respiratory Rate Blood Pressure O2 Sat by Pulse Oximetry Medical Decision Making - Medical Decision Making Patient was seen nd evaluated history obtained from patient VS unremarkable, no tachypnea or hypoxia, no fever Physical exam with only forced upper airway wheeze, no lower wheezing, no crackles CXR ordered Duoneb and percocet ordered Disposition Clinical Impression: COPD (chronic obstructive pulmonary disease), Chronic pain Disposition: HOME SELF-CARE Condition: Stable Instructions (If sedation given, give patient instructions): Chronic Cough (ED) Is patient prescribed a controlled substance at d/c from ED?: No Referrals: Deborah Shah III, MD [Primary Care Provider] - 1-2 days
--- NOTE | 2019-02-12 04:58 | XR ---
EXAM: XR Chest, 2 Views CLINICAL HISTORY: Chest pain TECHNIQUE: Frontal and lateral views of the chest. COMPARISON: February 07, 2019. FINDINGS: Lungs: Unremarkable. No consolidation. Pleural space: Unremarkable. No pleural effusions. No pneumothorax. Heart: Unremarkable. No cardiomegaly. Mediastinum: Small hiatal hernia. Bones/joints: Unremarkable. IMPRESSION: No acute cardiopulmonary process.
[2019-02-12 05:18] VITALS: RESP 14
[2019-02-12 05:48] VITALS: BP 151/76; PULSE 58
== END 2019-02-12 05:35 | disposition home or self-care (01) ==
LOC: EC 03:50
DX: J44.9 Chronic obstructive pulmonary disease, unspecified (principal); G89.29 Other chronic pain; M54.9 Dorsalgia, unspecified; I48.92 Unspecified atrial flutter; K21.9 Gastro-esophageal reflux disease without esophagitis; I10 Essential (primary) hypertension; M19.90 Unspecified osteoarthritis, unspecified site; F31.9 Bipolar disorder, unspecified; F41.0 Panic disorder [episodic paroxysmal anxiety]; Z87.891 Personal history of nicotine dependence; Z79.52 Long term (current) use of systemic steroids; Z79.899 Other long term (current) drug therapy; Z91.010 Allergy to peanuts; Z91.048 Other nonmedicinal substance allergy status
CPT/HCPCS: 71046; 94640; 99285

== ENCOUNTER 2019-05-02 12:15 | Inpatient (IN) | payer MEDICARE, OTHER ==
[2019-05-02] MEDS ORDERED: SODIUM CHLORIDE 0.9% 1,000 ML IV STA ×2 (12:40)
[2019-05-02] MEDS ORDERED: IPRATROPIUM-ALBUTEROL 3 ML NEB INHALATION STA (12:40)
[2019-05-02] MEDS ORDERED: HYDROcodone/APAP 5-325MG 1 EACH TAB PO STA (12:40)
[2019-05-02] MEDS ORDERED: methylPREDNISolone SOD SUCCI 125 MG/2 ML VIAL IV STA (12:40)
[2019-05-02 12:55] LABS: Basophils % (A) 1 %; Eosinophils # (A) 0.7 k/uL (0-0.7); Eosinophils % (A) 12 %; HCT 33.9 % (39.0-53.0); HGB 11.9 gm/dL (13.0-17.5); Lymphocytes # (A) 1.2 k/uL (1.0-4.8); Lymphocytes % (A) 23 %; MCH 32.7 pg (25.0-35.0); MCHC 35.2 g/dL (31.0-37.0); MCV 92.9 fL (80.0-100.0); Mean Platelet Volume 5.8; Monocytes # (A) 0.4 k/uL (0-1.0); Monocytes % (A) 7 %; Neutrophils # (A) 3.1 k/uL (1.3-7.7); Neutrophils % (A) 56 %; Platelet Count 157 k/uL (150-450); RBC 3.65 m/uL (4.30-5.90); RDW 14.6 % (11.5-15.5); WBC 5.5 k/uL (3.8-10.6)
[2019-05-02 13:08] LABS: INR 0.9 (<1.2); Partial Thromboplastin Time 23.7 sec (22.0-30.0); Prothrombin Time 9.4 sec (9.0-12.0)
[2019-05-02 13:13] LABS: Albumin 3.5 g/dL (3.5-5.0); Calcium 8.7 mg/dL (8.4-10.2); Magnesium 2.1 mg/dL (1.6-2.3); Potassium 4.1 mmol/L (3.5-5.1); Total Bilirubin 0.4 mg/dL (0.2-1.3); Total Protein 5.8 g/dL (6.3-8.2)
--- NOTE | 2019-05-02 13:54 | XR ---
EXAMINATION TYPE: XR chest 2V DATE OF EXAM: 05/02/2019 COMPARISON: 02/12/2019 TECHNIQUE: PA and lateral views submitted. HISTORY: Difficulty breathing FINDINGS: Suggestion of a hiatal hernia with by basilar subsegmental consolidation. No pneumothorax. Mild promi nence of the interstitium. Hypertrophic and degenerative change of the spine. Heart is enlarged. No p neumothorax. IMPRESSION: 1. Basilar atelectasis or early infiltrate correlate clinically.
--- NOTE | 2019-05-02 14:12 | ED ---
SOB HPI <Joseph Crouch - Last Filed: 05/02/19 15:11> - General Source: patient, RN notes reviewed, old records reviewed Mode of arrival: wheelchair Limitations: no limitations <Kaylah Ruiz - Last Filed: 05/02/19 15:22> - General Chief Complaint: Shortness of Breath Stated Complaint: Sob copd Time Seen by Provider: 05/02/19 12:37 - History of Present Illness Initial Comments: This is a 63-year-old male wanted to emergency department. He presents today with complaints of wheezing shortness of breath. He reports his mule developer is Dr. Granados. Patient states that he has been on steroids, He was started on [address] Dunn. Patient warts is having worsening cough and congestion for the past 2 days. Patient denies any specific chest pain. He denies any associated fevers or chill. He does report his cough been productive. He denies any nausea or vomiting. Does report chronic neck and back pain. Is requesting IV narcotic pain medicine. (Kaylah Ruiz) - Related Data Home Medications Medication Instructions Recorded Confirmed Montelukast [Singulair] 10 mg PO DAILY 03/16/14 05/02/19 Metoprolol Tartrate 25 mg PO DAILY 04/24/18 05/02/19 Sertraline [Zoloft] 100 mg PO DAILY 11/04/18 05/02/19 hydrALAZINE HCL [Apresoline] 25 mg PO BID 11/04/18 05/02/19 amLODIPine [Norvasc] 5 mg PO DAILY 12/29/18 05/02/19 buPROPion HCL [Wellbutrin XL] 150 mg PO DAILY 05/02/19 05/02/19 predniSONE 10 mg PO DAILY 05/02/19 05/02/19 Allergies Allergy/AdvReac Type Severity Reaction Status Date / Time peanut Allergy alg testing Verified 05/02/19 14:24 pollen extracts Allergy Unknown Verified 05/02/19 14:24 DUST Allergy alg testing Uncoded 05/02/19 12:25 Review of Systems ROS Other: All systems not noted in ROS Statement are negative. <Joseph Crouch - Last Filed: 05/02/19 15:11> ROS Other: All systems not noted in ROS Statement are negative. <Kaylah Ruiz - Last Filed: 05/02/19 15:22> ROS Statement: Those systems with pertinent positive or pertinent negative responses have been documented in the HPI. Past Medical History Past Medical History: Atrial Flutter, Asthma, Chest Pain / Angina, COPD, GERD/Reflux, Hypertension, Osteoarthritis (OA), Pneumonia, Sleep Apnea/CPAP/BIPAP Additional Past Medical History / Comment(s): Back problems History of Any Multi-Drug Resistant Organisms: None Reported Past Surgical History: Adenoidectomy, Bowel Resection, Cholecystectomy Additional Past Surgical History / Comment(s): Nasal Past Anesthesia/Blood Transfusion Reactions: Previous Problems w/ Anesthesia, Motion Sickness Additional Past Anesthesia/Blood Transfusion Reaction / Comment(s): states "during procedure of checking something on my left lung,I turned blue and I was brought right back out anesthesia and proc was cancelled". clausterphobia Past Psychological History: Anxiety, Bipolar, Depression, Panic Disorder Smoking Status: Former smoker Past Alcohol Use History: Heavy, None Reported Past Drug Use History: Marijuana - Past Family History Mother Family Medical History: Asthma Additional Family Medical History / Comment(s): at age 62 Father Family Medical History: CVA/TIA Additional Family Medical History / Comment(s): at age 90 <Kaylah Ruiz - Last Filed: 05/02/19 15:22> General Exam Limitations: no limitations General appearance: alert, in no apparent distress Head exam: Present: atraumatic, normocephalic, normal inspection Eye exam: Present: normal appearance, PERRL, EOMI. Absent: scleral icterus, conjunctival injection, periorbital swelling ENT exam: Present: normal exam, mucous membranes moist Neck exam: Present: normal inspection. Absent: tenderness, meningismus, lymphadenopathy Respiratory exam: Present: wheezes. Absent: normal lung sounds bilaterally, respiratory distress, rales, rhonchi, stridor Cardiovascular Exam: Present: regular rate, normal rhythm, normal heart sounds. Absent: systolic murmur, diastolic murmur, rubs, gallop, clicks GI/Abdominal exam: Present: soft, normal bowel sounds. Absent: distended, tenderness, guarding, rebound, rigid Extremities exam: Present: normal inspection, full ROM, normal capillary refill. Absent: tenderness, pedal edema, joint swelling, calf tenderness Back exam: Present: normal inspection Neurological exam: Present: alert, oriented X3, CN II-XII intact <Kaylah Ruiz - Last Filed: 05/02/19 15:22> - General Exam Comments Initial Comments: 63-year-old male. Alert and oriented 3. Audible wheezing (SaraKaylah) Course Vital Signs 05/02/19 05/02/19 05/02/19 12:24 12:52 13:11 Temperature 97.9 F Pulse Rate 68 63 60 Respiratory 22 Rate Blood Pressure 131/80 O2 Sat by Pulse 97 Oximetry 05/02/19 14:04 Temperature 98.3 F Pulse Rate 78 Respiratory 18 Rate Blood Pressure 155/102 O2 Sat by Pulse 96 Oximetry Medical Decision Making - Lab Data Result diagrams: 05/02/19 12:40 05/02/19 12:40 <Joseph Crouch - Last Filed: 05/02/19 15:11> - Lab Data Result diagrams: 05/02/19 12:40 05/02/19 12:40 - Radiology Data Radiology results: report reviewed <Kaylah Ruiz - Last Filed: 05/02/19 15:22> - Medical Decision Making Case discussed with practitioner Kaylah. Case also discussed with practitioner chest, with Dr. Avilez, who will admit. (Joseph Crouch) 63-year-old male presents weren't department today for evaluation for cough congestion and wheezing. His been on steroids and his mule developer is Dr. Poe. At this time he does have continued wheezing. Without oxygen patient's pulse ox was down to 87% at one time on room air. Skin multiple breathing treatments and IV Solu-Medrol. Chest x-ray questionable atelectasis versus pneumonia. Blood work was otherwise unremarkable. I discussed that he's been on steroids that isn't feeling outpatient treatment with benefit from admission. Discussed this with Dr. Crouch and discussed case with [facility] hospitalist. (Kaylah Ruiz) - Lab Data Lab Results 05/02/19 05/02/19 05/02/19 Range/Units 12:40 12:40 12:40 WBC 5.5 (3.8-10.6) k/uL RBC 3.65 L (4.30-5.90) m/uL Hgb 11.9 L (13.0-17.5) gm/dL Hct 33.9 L (39.0-53.0) % MCV 92.9 (80.0-100.0) fL MCH 32.7 (25.0-35.0) pg MCHC 35.2 (31.0-37.0) g/dL RDW 14.6 (11.5-15.5) % Plt Count 157 (150-450) k/uL Neutrophils % 56 % Lymphocytes % 23 % Monocytes % 7 % Eosinophils % 12 % Basophils % 1 % Neutrophils # 3.1 (1.3-7.7) k/uL Lymphocytes # 1.2 (1.0-4.8) k/uL Monocytes # 0.4 (0-1.0) k/uL Eosinophils # 0.7 (0-0.7) k/uL Basophils # 0.0 (0-0.2) k/uL PT 9.4 (9.0-12.0) sec INR 0.9 (<1.2) APTT 23.7 (22.0-30.0) sec Sodium 140 (137-145) mmol/L Potassium 4.1 (3.5-5.1) mmol/L Chloride 108 H (98-107) mmol/L Carbon Dioxide 23 (22-30) mmol/L Anion Gap 9 mmol/L BUN 16 (9-20) mg/dL Creatinine 1.09 (0.66-1.25) mg/dL Est GFR (CKD-EPI)AfAm 84 (>60 ml/min/1.73 sqM) Est GFR (CKD-EPI)NonAf 72 (>60 ml/min/1.73 sqM) Glucose 90 (74-99) mg/dL Calcium 8.7 (8.4-10.2) mg/dL Magnesium 2.1 (1.6-2.3) mg/dL Total Bilirubin 0.4 (0.2-1.3) mg/dL AST 24 (17-59) U/L ALT 32 (21-72) U/L Alkaline Phosphatase 73 (38-126) U/L Troponin I (0.000-0.034) ng/mL Total Protein 5.8 L (6.3-8.2) g/dL Albumin 3.5 (3.5-5.0) g/dL 05/02/19 Range/Units 12:40 WBC (3.8-10.6) k/uL RBC (4.30-5.90) m/uL Hgb (13.0-17.5) gm/dL Hct (39.0-53.0) % MCV (80.0-100.0) fL MCH (25.0-35.0) pg MCHC (31.0-37.0) g/dL RDW (11.5-15.5) % Plt Count (150-450) k/uL Neutrophils % % Lymphocytes % % Monocytes % % Eosinophils % % Basophils % % Neutrophils # (1.3-7.7) k/uL Lymphocytes # (1.0-4.8) k/uL Monocytes # (0-1.0) k/uL Eosinophils # (0-0.7) k/uL Basophils # (0-0.2) k/uL PT (9.0-12.0) sec INR (<1.2) APTT (22.0-30.0) sec Sodium (137-145) mmol/L Potassium (3.5-5.1) mmol/L Chloride (98-107) mmol/L Carbon Dioxide (22-30) mmol/L Anion Gap mmol/L BUN (9-20) mg/dL Creatinine (0.66-1.25) mg/dL Est GFR (CKD-EPI)AfAm (>60 ml/min/1.73 sqM) Est GFR (CKD-EPI)NonAf (>60 ml/min/1.73 sqM) Glucose (74-99) mg/dL Calcium (8.4-10.2) mg/dL Magnesium (1.6-2.3) mg/dL Total Bilirubin (0.2-1.3) mg/dL AST (17-59) U/L ALT (21-72) U/L Alkaline Phosphatase (38-126) U/L Troponin I <0.012 (0.000-0.034) ng/mL Total Protein (6.3-8.2) g/dL Albumin (3.5-5.0) g/dL 05/02/19 14:11 EKG performed at 1246 shows sinus bradycardia cardiac, right bundle branch block. Abnormal EKG noted. Ventricular rate of 59 bpm. MS interval is 156 ms. Respirations 148 ms. QT QTc is 436/431 ms. (Kaylah Ruiz) - Radiology Data Basilar atelectasis or early infiltrate. Correlate clinically. (Kaylah Ruiz) Disposition <Joseph Crouch - Last Filed: 05/02/19 15:11> Is patient prescribed a controlled substance at d/c from ED?: No Time of Disposition: 15:21 <Kaylah Ruiz - Last Filed: 05/02/19 15:22> Clinical Impression: Hypoxia, COPD exacerbation Disposition: ADMITTED IP TO THIS HOSP Condition: Stable Referrals: Deborah Shah III, MD [Primary Care Provider] - 1-2 days
[2019-05-02] MEDS: IPRATROPIUM 0.5 MG/2.5 ML NEBU INHALATION SCH ×2 (17:34→21:05)
[2019-05-02] MEDS: SODIUM CHLORIDE 0.9% 1,000 ML IV SCH (17:37)
[2019-05-02 17:46] LABS: Glucose,Whole Blood 120 mg/dL (75-99)
[2019-05-02] MEDS: methylPREDNISolone SOD SUCCI 125 MG/2 ML VIAL IV SCH ×2 (17:49→23:59)
[2019-05-02] MEDS: INSULIN ASPART (NovoLOG) 100 UNIT/ML VIAL SQ SCH ×2 (17:49→20:40)
[2019-05-02] MEDS: HYDROmorphone 0.5 MG/0.5 ML SYRINGE IVP PRN (18:11)
[2019-05-02] MEDS ORDERED: SYMBICORT 80-4.5 MCG INHALER INHALATION STA (18:16)
--- NOTE | 2019-05-02 18:22 | P.HPIM ---
History of Present Illness This is a pleasant 63 years old male with past medical history of atrial flutter, asthma, COPD, GERD, hypertension, osteoarthritis, sleep apnea not on CPAP/BiPAP. Who presents because of dyspnea and cough with yellow-greenish phlegm getting progressively worse over the last 2 weeks, he saw his chief port director and start him on antibiotics and Taper steroids with partial improvement, as he gets worse lately he decided to come to emergency room. Patient complaining of from chest pain with coughing, patient denied change in urine or bowel habits. No fever Patient on a chronic chest pain, neck pain on Percocet 10-[address] Trammell, And patient is asking specifically for Dilaudid for his skeletal chest pain. Risk of further pulmonary process and or are explained for the patient and he verbalized understanding and acceptance Vitas looks stable, however patient desaturated to 88% on room air. CBC, BMP and liver enzymes were unremarkable. Troponin is negative... EKG showing sinus bradycardia at 59 with right bundle-branch block, no significant ST-T changes. Chest x-ray: By basilar atelectasis or injury infiltrates. In the emergency room patient was started on Zithromax, and steroids. Review of Systems CONSTITUTIONAL: No fever, no malaise, no fatigue. HEENT: No recent visual problems or hearing problems. Denied any sore throat. CARDIOVASCULAR: No orthopnea, PND, no palpitations, no syncope. PULMONARY:no hemoptysis. GASTROINTESTINAL: No diarrhea, no nausea, no vomiting, no abdominal pain. Normoactive bowel sounds. NEUROLOGICAL: No headaches, no weakness, no numbness. HEMATOLOGICAL: Denies any bleeding or petechiae. GENITOURINARY: Denies any burning micturition, frequency, or urgency. MUSCULOSKELETAL/RHEUMATOLOGICAL: Denies any joint pain, swelling, or any muscle pain. ENDOCRINE: Denies any polyuria or polydipsia. Past Medical History Past Medical History: Atrial Flutter, Asthma, Chest Pain / Angina, COPD, GERD/Reflux, Hypertension, Osteoarthritis (OA), Pneumonia, Sleep Apnea/CPAP/BIPAP Additional Past Medical History / Comment(s): Back problems History of Any Multi-Drug Resistant Organisms: None Reported Past Surgical History: Adenoidectomy, Bowel Resection, Cholecystectomy Additional Past Surgical History / Comment(s): Nasal Past Anesthesia/Blood Transfusion Reactions: Previous Problems w/ Anesthesia, Motion Sickness Additional Past Anesthesia/Blood Transfusion Reaction / Comment(s): states "during procedure of checking something on my left lung,I turned blue and I was brought right back out anesthesia and proc was cancelled". clausterphobia Past Psychological History: Anxiety, Bipolar, Depression, Panic Disorder Smoking Status: Former smoker Past Alcohol Use History: Heavy, None Reported Past Drug Use History: Marijuana - Past Family History Mother Family Medical History: Asthma Additional Family Medical History / Comment(s): at age 62 Father Family Medical History: CVA/TIA Additional Family Medical History / Comment(s): at age 90 Medications and Allergies Home Medications Medication Instructions Recorded Confirmed Type Montelukast [Singulair] 10 mg PO DAILY 03/16/14 05/02/19 History Metoprolol Tartrate 25 mg PO DAILY 04/24/18 05/02/19 History Sertraline [Zoloft] 100 mg PO DAILY 11/04/18 05/02/19 History hydrALAZINE HCL [Apresoline] 25 mg PO BID 11/04/18 05/02/19 History amLODIPine [Norvasc] 5 mg PO DAILY 12/29/18 05/02/19 History buPROPion HCL [Wellbutrin XL] 150 mg PO DAILY 05/02/19 05/02/19 History predniSONE 10 mg PO DAILY 05/02/19 05/02/19 History Allergies Allergy/AdvReac Type Severity Reaction Status Date / Time peanut Allergy alg testing Verified 05/02/19 14:24 pollen extracts Allergy Unknown Verified 05/02/19 14:24 DUST Allergy alg testing Uncoded 05/02/19 12:25 Physical Exam Vitals: Vital Signs Temp Pulse Resp BP Pulse Ox 05/02/19 16:32 97.3 F L 73 18 148/89 96 05/02/19 15:30 96 05/02/19 15:15 88 L 05/02/19 14:04 98.3 F 78 18 155/102 96 05/02/19 13:11 60 05/02/19 12:52 63 05/02/19 12:24 97.9 F 68 22 131/80 97 Intake and Output 05/02/19 05/02/19 05/02/19 06:59 14:59 22:59 Other: Weight 95.254 kg GENERAL: The patient is alert and oriented x3, not in any acute distress. Well developed, well nourished. HEENT: Pupils are round and equally reacting to light. EOMI. No scleral icterus. No conjunctival pallor. Normocephalic, atraumatic. No pharyngeal erythema. No thyromegaly. CARDIOVASCULAR: S1 and S2 present. No murmurs, rubs, or gallops. -PULMONARY: Chest is clear to auscultation, bilateral expiratory wheezing ABDOMEN: Soft, nontender, nondistended, normoactive bowel sounds. No palpable organomegaly. MUSCULOSKELETAL: No joint swelling or deformity. EXTREMITIES: No cyanosis, clubbing, or pedal edema. NEUROLOGICAL: Gross neurological examination did not reveal any focal deficits. SKIN: No rashes. No petechiae Results CBC & Chem 7: 05/02/19 12:40 05/02/19 12:40 Labs: Abnormal Lab Results - Last 24 Hours (Table) 05/02/19 05/02/19 Range/Units 12:40 12:40 RBC 3.65 L (4.30-5.90) m/uL Hgb 11.9 L (13.0-17.5) gm/dL Hct 33.9 L (39.0-53.0) % Chloride 108 H (98-107) mmol/L Total Protein 5.8 L (6.3-8.2) g/dL Assessment and Plan Assessment: Acute COPD exacerbation Chronic atrial flutter Hypertension Sleep apnea on CPAP/BiPAP Primary osteoarthritis Plan: This is a pleasant 64 years old male who presents with COPD exacerbation. Continue with steroids, bronchodilators, inhalation steroids and oxygen as needed. Incentive spirometry . Check for influenza Labs and medication were reviewed.. Continue same treatment. Continue with symptomatic treatment. Resume home medication. Monitor lytes and vitals. DVT and GI prophylaxis. Further recommendations of the clinical course of the patient DVT prophylaxis: Subcutaneous heparin GI Prophylaxis: Pepcid PT/OT: Pending Prognosis is guarded
--- NOTE | 2019-05-02 19:27 | P.CNPUL ---
History of Present Illness Consult date: 05/02/19 Reason for consult: dyspnea, cough, COPD, pulmonary fibrosis Chief complaint: Shortness of breath and cough with purulent sputum production History of present illness: 63-year-old well-known to me with long-standing history of smoking and nicotine abuse he has advanced sleep apnea but has declined repeat sleep study and CPAP use, patient has been having cough congestion or shortness of breath for 2 weeks has a course of antibiotics and steroids as outpatient without any relief came into the hospital for failed outpatient therapy no hemoptysis is present patient was noted to be desaturating intermittently with sats were 88% on room air, Dr. Marcus is managing his pain medicine for his severe disabling pain of the spine Review of Systems All systems: negative Past Medical History Past Medical History: Atrial Flutter, Asthma, Chest Pain / Angina, COPD, GERD/Reflux, Hypertension, Osteoarthritis (OA), Pneumonia, Sleep Apnea/CPAP/BIP AP Additional Past Medical History / Comment(s): Back problems History of Any Multi-Drug Resistant Organisms: None Reported Past Surgical History: Adenoidectomy, Bowel Resection, Cholecystectomy Additional Past Surgical History / Comment(s): Nasal Past Anesthesia/Blood Transfusion Reactions: Previous Problems w/ Anesthesia, Motion Sickness Additional Past Anesthesia/Blood Transfusion Reaction / Comment(s): states "during procedure of checking something on my left lung,I turned blue and I was brought right back out anesthesia and proc was cancelled". clausterphobia Past Psychological History: Anxiety, Bipolar, Depression, Panic Disorder Smoking Status: Former smoker Past Alcohol Use History: Heavy, None Reported Past Drug Use History: Marijuana - Past Family History Mother Family Medical History: Asthma Additional Family Medical History / Comment(s): at age 62 Father Family Medical History: CVA/TIA Additional Family Medical History / Comment(s): at age 90 Medications and Allergies Home Medications Medication Instructions Recorded Confirmed Type Montelukast [Singulair] 10 mg PO DAILY 03/16/14 05/02/19 History Metoprolol Tartrate 25 mg PO DAILY 04/24/18 05/02/19 History Sertraline [Zoloft] 100 mg PO DAILY 11/04/18 05/02/19 History hydrALAZINE HCL [Apresoline] 25 mg PO BID 11/04/18 05/02/19 History amLODIPine [Norvasc] 5 mg PO DAILY 12/29/18 05/02/19 History buPROPion HCL [Wellbutrin XL] 150 mg PO DAILY 05/02/19 05/02/19 History predniSONE 10 mg PO DAILY 05/02/19 05/02/19 History Allergies Allergy/AdvReac Type Severity Reaction Status Date / Time peanut Allergy alg testing Verified 05/02/19 14:24 pollen extracts Allergy Unknown Verified 05/02/19 14:24 DUST Allergy alg testing Uncoded 05/02/19 12:25 Physical Exam Vitals: Vital Signs Temp Pulse Pulse Resp BP BP Pulse Ox 05/02/19 17:45 68 05/02/19 17:35 97.0 F L 74 18 151/58 95 05/02/19 17:34 68 05/02/19 16:32 97.3 F L 73 18 148/89 96 05/02/19 15:30 96 05/02/19 15:15 88 L 05/02/19 14:04 98.3 F 78 18 155/102 96 05/02/19 13:11 60 05/02/19 12:52 63 05/02/19 12:24 97.9 F 68 22 131/80 97 Intake and Output 05/02/19 05/02/19 05/02/19 06:59 14:59 22:59 Other: Weight 95.254 kg - Constitutional General appearance: disheveled, mild distress, morbidly obese - EENT Eyes: anicteric sclerae, EOMI, PERRLA, poor dentition, normal appearance ENT: normal oropharynx Ears: bilateral: normal - Neck Carotids: bilateral: upstroke normal Thyroid: bilateral: normal size - Respiratory Respiratory: bilateral: diminished, rhonchi, prolonged expiration - Cardiovascular Rhythm: regular Heart sounds: normal: S1, S2 - Gastrointestinal General gastrointestinal: decreased bowel sounds, distended, soft - Neurologic Neurologic: CNII-XII intact - Musculoskeletal Musculoskeletal: gait normal, generalized weakness, strength equal bilaterally - Psychiatric Psychiatric: A&O x's 3 Results - Laboratory Findings CBC and BMP: 05/02/19 12:40 05/02/19 12:40 PT/INR, D-dimer PT 9.4 sec (9.0-12.0) 05/02/19 12:40 INR 0.9 (<1.2) 10/01/19 12:40 Abnormal lab findings: Abnormal Labs 05/02/19 05/02/19 05/02/19 12:40 12:40 17:44 RBC 3.65 L Hgb 11.9 L Hct 33.9 L Chloride 108 H POC Glucose (mg/dL) 120 H Total Protein 5.8 L - Diagnostic Findings Chest x-ray: report reviewed (Basal bilateral atelectasis early infiltrate cannot be excluded) Assessment and Plan Assessment: Acute on chronic hypoxic respiratory failure Acute COPD exacerbation Chronic pain syndrome Sleep apnea and sleep disorder breathing Morbid obesity Hypertension and hypertensive heart disease Plan: Bronchodilator IV steroids Breathing treatments Discussed with the patient about sleep study has declined Further recommendations pending plan of care as per clinical response of the patient Time with Patient: Greater than 30
[2019-05-02 20:33] LABS: Glucose,Whole Blood 187 mg/dL (75-99)
[2019-05-02] MEDS: FAMOTIDINE 20 MG/2 ML VIAL IV SCH (20:40)
[2019-05-02] MEDS: oxyCODONE-APAP 10-325MG 1 EACH TAB PO PRN (20:41)
[2019-05-02] MEDS: hydrALAZINE HCL 25 MG TAB PO SCH (20:41)
[2019-05-02] MEDS: HEPARIN SODIUM,PORCINE 5,000 UNIT/ML 1 ML VIAL SQ SCH (20:42)
[2019-05-02] MEDS ORDERED: guaiFENesin 600 MG TABLET.ER PO SCH (21:00)
[2019-05-02] MEDS: guaiFENesin-DM 100-10MG/5ML 10 ML CUP PO PRN (21:00)
[2019-05-02] MEDS ORDERED: SYMBICORT 80-4.5 MCG INHALER INHALATION ONE (21:05)
[2019-05-03] MEDS: oxyCODONE-APAP 10-325MG 1 EACH TAB PO PRN ×5 (02:53→23:17)
[2019-05-03] MEDS: IPRATROPIUM-ALBUTEROL 3 ML NEB INHALATION PRN ×4 (05:06→16:46)
[2019-05-03] MEDS: methylPREDNISolone SOD SUCCI 125 MG/2 ML VIAL IV SCH ×4 (05:55→23:17)
[2019-05-03] MEDS: HYDROmorphone 0.5 MG/0.5 ML SYRINGE IVP PRN ×3 (05:56→11:56)
[2019-05-03] MEDS: SODIUM CHLORIDE 0.9% 1,000 ML IV SCH ×3 (06:20→23:19)
[2019-05-03] MEDS: guaiFENesin-DM 100-10MG/5ML 10 ML CUP PO PRN (06:22)
[2019-05-03 07:27] LABS: Glucose,Whole Blood 158 mg/dL (75-99)
[2019-05-03] MEDS: INSULIN ASPART (NovoLOG) 100 UNIT/ML VIAL SQ SCH ×4 (07:47→21:57)
[2019-05-03] MEDS: hydrALAZINE HCL 25 MG TAB PO SCH ×3 (07:47→21:57)
[2019-05-03] MEDS: HEPARIN SODIUM,PORCINE 5,000 UNIT/ML 1 ML VIAL SQ SCH ×2 (07:48→21:57)
[2019-05-03] MEDS: MONTELUKAST 10 MG TAB PO SCH (07:48)
[2019-05-03] MEDS: SERTRALINE 100 MG TAB PO SCH (07:48)
[2019-05-03] MEDS: METOPROLOL TARTRATE 25 MG TAB PO SCH (07:48)
[2019-05-03] MEDS: amLODIPine 5 MG TAB PO SCH (07:48)
[2019-05-03] MEDS: AZITHROMYCIN 500 MG TAB PO SCH (07:48)
[2019-05-03] MEDS: FAMOTIDINE 20 MG/2 ML VIAL IV SCH (07:48)
[2019-05-03] MEDS: buPROPion XL 150 MG TAB.ER.24H PO SCH (07:55)
[2019-05-03] MEDS: IPRATROPIUM 0.5 MG/2.5 ML NEBU INHALATION SCH ×4 (09:20→21:12)
[2019-05-03 12:01] LABS: Glucose,Whole Blood 131 mg/dL (75-99)
--- NOTE | 2019-05-03 13:52 | P.PN ---
Subjective This is a pleasant 63 years old male with past medical history of atrial flutter, asthma, COPD, GERD, hypertension, osteoarthritis, sleep apnea not on CPAP/BiPAP. 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 P atient complaining of from chest pain with coughing, patient denied change in urine or bowel habits. No fever Patient on a chronic chest pain, neck pain on Percocet 10-[address] Trammell, And patient is asking specifically for Dilaudid for his skeletal chest pain. Risk of further pulmonary process and or are explained for the patient and he verbalized understanding and acceptance Vitas looks stable, however patient desaturated to 88% on room air. CBC, BMP and liver enzymes were unremarkable. Troponin is negative... EKG showing sinus bradycardia at 59 with right bundle-branch block, no significant ST-T changes. Chest x-ray: By basilar atelectasis or injury infiltrates. In the emergency room patient was started on Zithromax, and steroids. 05/03/2019 Patient with less respiratory distress and he can talk more freely however he still significantly dyspneic and tachypneic his cough is improved significantly compared to yesterday. His vitals are stable however his blood pressure on the high side. We going to increase his hydralazine from twice daily to 3 times daily. Patient remains on steroids and antibiotics, and pulmonary input is appreciated. We going to downgrade his pain medication, from Dilaudid intravenously and increase his oral Percocet 10-325 from every 6 hours to every 4 hours for now. Decrease IV fluids to 75 with a per hour, repeat chest x-ray today. Inflow was at this is negative Review of systems CONSTITUTIONAL: No fever, no malaise, no fatigue. HEENT: No recent visual problems or hearing problems. Denied any sore throat. CARDIOVASCULAR: No orthopnea, PND, no palpitations, no syncope. PULMONARY:no hemoptysis. GASTROINTESTINAL: No diarrhea, no nausea, no vomiting, no abdominal pain. Normoactive bowel sounds. NEUROLOGICAL: No headaches, no weakness, no numbness. HEMATOLOGICAL: Denies any bleeding or petechiae. GENITOURINARY: Denies any burning micturition, frequency, or urgency. MUSCULOSKELETAL/RHEUMATOLOGICAL: Denies any joint pain, swelling, or any muscle pain. ENDOCRINE: Denies any polyuria or polydipsia. Active Medications Generic Name Dose Route Start Last Admin Trade Name Freq PRN Reason Stop Dose Admin Albuterol/Ipratropium 3 ml 05/02/19 15:22 05/03/19 13:11 Duoneb 0.5 Mg-3 Mg/3 Ml Soln INHALATION 3 ml RT-Q4H PRN Administration Shortness Of Breath Or Wheezing Amlodipine Besylate 5 mg 05/03/19 09:00 05/03/19 07:48 Norvasc PO 5 mg DAILY MAINE Administration Azithromycin 500 mg 05/03/19 09:00 05/03/19 07:48 Zithromax PO 500 mg DAILY MAINE Administration Bupropion HCl 150 mg 05/03/19 09:00 05/03/19 07:55 Wellbutrin Xl PO 150 mg DAILY MAINE Administration Famotidine 20 mg 05/02/19 21:00 05/03/19 07:48 Pepcid IV 20 mg Q12HR MAINE Administration Guaifenesin/Dextromethorphan 10 ml 05/02/19 18:14 05/03/19 06:22 Robitussin Dm PO 10 ml Q6H PRN Administration Cough Heparin Sodium (Porcine) 5,000 unit 05/02/19 21:00 05/03/19 07:48 Heparin SQ 5,000 unit Q12HR MAINE Administration Hydralazine HCl 25 mg 05/03/19 16:00 Apresoline PO TID [facility] Sodium Chloride 1,000 mls @ 75 mls/hr 05/02/19 15:30 05/03/19 11:58 Saline 0.9% IV 100 mls/hr .[id number] MAINE Administration Insulin Aspart 0 unit 05/02/19 17:30 05/03/19 12:05 Novolog SQ 1 unit ACHS MAINE Administration Protocol Ipratropium [place] 0.5 mg 05/02/19 16:00 05/03/19 13:11 Atrovent Nebulized INHALATION Not Given RT-QID MAINE Methylprednisolone Sodium Succinate 60 mg 05/02/19 18:00 05/03/19 11:57 Solu-Medrol IV 60 mg Q6HR MAINE Administration Metoprolol Tartrate 25 mg 05/03/19 09:00 05/03/19 07:48 Lopressor PO 25 mg DAILY MAINE Administration Montelukast Sodium 10 mg 05/03/19 09:00 05/03/19 07:48 Singulair PO 10 mg DAILY MAINE Administration Oxycodone/Acetaminophen 1 each 05/03/19 13:50 Percocet 10-325 PO Q4H PRN Pain Sertraline HCl 100 mg 05/03/19 09:00 05/03/19 07:48 Zoloft PO 100 mg DAILY MAINE Administration Objective - Vital Signs Vital signs: Vital Signs Temp 97.9 F 05/03/19 13:39 Pulse 82 05/03/19 13:39 Resp 16 05/03/19 13:39 BP 169/91 05/03/19 13:39 Pulse Ox 96 05/03/19 13:39 Intake & Output 05/02/19 05/03/19 05/03/19 18:59 06:59 18:59 Intake Total 700 Output Total 125 Balance 700 -125 Weight 95.254 kg Intake: Oral 700 Output: Urine 125 Other: Voiding Method Urinal Urinal # Voids 2 - Exam GENERAL: The patient is alert and oriented x3, not in any acute distress. Well developed, well nourished. HEENT: Pupils are round and equally reacting to light. EOMI. No scleral icterus. No conjunctival pallor. Normocephalic, atraumatic. No pharyngeal erythema. No thyromegaly. CARDIOVASCULAR: S1 and S2 present. No murmurs, rubs, or gallops. -PULMONARY: Chest is clear to auscultation, bilateral expiratory wheezing with prolonged expiration ABDOMEN: Soft, nontender, nondistended, normoactive bowel sounds. No palpable organomegaly. MUSCULOSKELETAL: No joint swelling or deformity. EXTREMITIES: No cyanosis, clubbing, or pedal edema. NEUROLOGICAL: Gross neurological examination did not reveal any focal deficits. SKIN: No rashes. no petechiae. - Labs CBC & Chem 7: 05/02/19 12:40 05/02/19 12:40 Labs: Abnormal Lab Results - Last 24 Hours (Table) 05/02/19 05/02/19 05/03/19 Range/Units 17:44 20:27 07:18 POC Glucose (mg/dL) 120 H 187 H 158 H (75-99) mg/dL 10/02/19 Range/Units 11:57 POC Glucose (mg/dL) 131 H (75-99) mg/dL Assessment and Plan Assessment: Acute COPD exacerbation Chronic atrial flutter Hypertension Sleep apnea on CPAP/BiPAP Primary osteoarthritis Plan: This is a pleasant 64 years old male who presents with COPD exacerbation. Continue with steroids, bronchodilators, inhalation steroids and oxygen as needed. Incentive spirometry . Decreased pain medication, recheck chest x-ray Labs and medication were reviewed.. Continue same treatment. Continue with symptomatic treatment. Resume home medication. Monitor lytes and vitals. DVT and GI prophylaxis. Further recommendations of the clinical course of the patient DVT prophylaxis: Subcutaneous heparin GI Prophylaxis: Pepcid PT/OT: Pending Prognosis is guarded
--- NOTE | 2019-05-03 14:13 | XR ---
EXAMINATION TYPE: XR chest 1V DATE OF EXAM: 05/03/2019 CLINICAL HISTORY: Difficulty breathing progress study. History of COPD. TECHNIQUE: Single AP portable upright view of the chest is obtained. COMPARISON: Chest x-ray from one day earlier and older study February 12, 2019. FINDINGS: There is chronic parenchymal change with improved aeration bilateral bases. No new suspici ous focal airspace opacity, pleural effusion, or pneumothorax. Cardiac silhouette size is stable. Mil dly enlarged. Osseous structures are intact. IMPRESSION: Improved aeration bilateral lung bases. No new infiltrate is seen.
[2019-05-03 16:57] LABS: Glucose,Whole Blood 124 mg/dL (75-99)
[2019-05-03 21:38] LABS: Glucose,Whole Blood 151 mg/dL (75-99)
[2019-05-03] MEDS: FAMOTIDINE 20 MG TAB PO SCH (21:57)
[2019-05-04] MEDS: oxyCODONE-APAP 10-325MG 1 EACH TAB PO PRN ×6 (03:03→23:19)
[2019-05-04] MEDS: guaiFENesin-DM 100-10MG/5ML 10 ML CUP PO PRN ×2 (04:48→16:32)
[2019-05-04] MEDS: methylPREDNISolone SOD SUCCI 125 MG/2 ML VIAL IV SCH ×4 (06:29→23:19)
[2019-05-04 07:23] LABS: Glucose,Whole Blood 115 mg/dL (75-99)
[2019-05-04] MEDS: INSULIN ASPART (NovoLOG) 100 UNIT/ML VIAL SQ SCH ×4 (07:42→21:32)
[2019-05-04] MEDS: MONTELUKAST 10 MG TAB PO SCH (07:42)
[2019-05-04] MEDS: buPROPion XL 150 MG TAB.ER.24H PO SCH (07:43)
[2019-05-04] MEDS: amLODIPine 5 MG TAB PO SCH (07:43)
[2019-05-04] MEDS: SERTRALINE 100 MG TAB PO SCH (07:43)
[2019-05-04] MEDS: AZITHROMYCIN 500 MG TAB PO SCH (07:43)
[2019-05-04] MEDS: HEPARIN SODIUM,PORCINE 5,000 UNIT/ML 1 ML VIAL SQ SCH ×2 (07:44→21:32)
[2019-05-04] MEDS: hydrALAZINE HCL 25 MG TAB PO SCH ×3 (07:44→21:32)
[2019-05-04] MEDS: METOPROLOL TARTRATE 25 MG TAB PO SCH (07:44)
[2019-05-04] MEDS: FAMOTIDINE 20 MG TAB PO SCH ×2 (07:44→21:32)
--- NOTE | 2019-05-04 07:55 | P.PN ---
Subjective Progress Note Date: 05/04/19 Principal diagnosis: Acute on chronic hypoxic respiratory failure Acute COPD exacerbation Chronic pain syndrome Sleep apnea and sleep disorder breathing Morbid obesity Hypertension and hypertensive heart disease 05/04/2019, patient seen and evaluated examined during the rounds labs reviewed medications reviewed radiographic studies reviewed as well care plan discussed with the staff at length, his cough congestion and wheezing slightly better now able to get up but however still remain on intermittent oxygen, discussed with him about sleep study he has declined as he cannot use the CPAP machine, 63-year-old well-known to me with long-standing history of smoking and nicotine abuse he has advanced sleep apnea but has declined repeat sleep study and CPAP use, patient has been having cough congestion or shortness of breath for 2 weeks has a course of antibiotics and steroids as outpatient without any relief came into the hospital for failed outpatient therapy no hemoptysis is present patient was noted to be desaturating intermittently with sats were 88% on room air, Dr. Marcus is managing his pain medicine for his severe disabling pain of the spine Objective - Vital Signs Vital signs: Vital Signs Temp 97.8 F 05/04/19 04:56 Pulse 72 05/04/19 04:56 Resp 18 05/04/19 04:56 BP 181/95 05/04/19 04:56 Pulse Ox 92 L 05/04/19 04:56 Intake & Output 05/03/19 05/04/19 05/04/19 18:59 06:59 18:59 Output Total 1525 1300 Balance -1525 -1300 Output: Urine 1525 1300 Other: Voiding Method Urinal - Exam Constitutional General appearance: disheveled, mild distress, morbidly obese - EENT Eyes: anicteric sclerae, EOMI, PERRLA, poor dentition, normal appearance ENT: normal oropharynx Ears: bilateral: normal - Neck Carotids: bilateral: upstroke normal Thyroid: bilateral: normal size - Respiratory Respiratory: bilateral: diminished, rhonchi, prolonged expiration - Cardiovascular Rhythm: regular Heart sounds: normal: S1, S2 - Gastrointestinal General gastrointestinal: decreased bowel sounds, distended, soft - Neurologic Neurologic: CNII-XII intact - Musculoskeletal Musculoskeletal: gait normal, generalized weakness, strength equal bilaterally - Psychiatric Psychiatric: A&O x's 3 - Labs CBC & Chem 7: 05/02/19 12:40 05/02/19 12:40 Labs: Abnormal Lab Results - Last 24 Hours (Table) 05/03/19 05/03/19 05/03/19 Range/Units 11:57 16:55 21:36 POC Glucose (mg/dL) 131 H 124 H 151 H (75-99) mg/dL 05/04/19 Range/Units 07:10 POC Glucose (mg/dL) 115 H (75-99) mg/dL Microbiology - Last 24 Hours (Table) 05/02/19 12:40 Blood Culture - Preliminary Blood No Growth after 24 hours Assessment and Plan Assessment: Acute on chronic hypoxic respiratory failure Acute COPD exacerbation Chronic pain syndrome Sleep apnea and sleep disorder breathing Morbid obesity Hypertension and hypertensive heart disease Plan: Bronchodilator IV steroids to be continued 10 be changed to oral prednisone just prior to discharge Breathing treatments Discussed with the patient about sleep study has declined We'll keep for another 24 hours possibly discharged tomorrow Further recommendations pending plan of care as per clinical response of the patient Time with Patient: Greater than 30
[2019-05-04] MEDS: IPRATROPIUM 0.5 MG/2.5 ML NEBU INHALATION SCH ×4 (09:20→20:56)
[2019-05-04] MEDS: IPRATROPIUM-ALBUTEROL 3 ML NEB INHALATION PRN ×3 (09:20→16:14)
[2019-05-04] MEDS: SODIUM CHLORIDE 0.9% 1,000 ML IV SCH (11:24)
[2019-05-04 11:48] LABS: Glucose,Whole Blood 123 mg/dL (75-99)
--- NOTE | 2019-05-04 12:34 | P.PN ---
Subjective This is a pleasant 63 years old male with past medical history of atrial flutter, asthma, COPD, GERD, hypertension, osteoarthritis, sleep apnea not on CPAP/BiPAP. 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 P atient complaining of from chest pain with coughing, patient denied change in urine or bowel habits. No fever Patient on a chronic chest pain, neck pain on Percocet 10-[address] Trammell, And patient is asking specifically for Dilaudid for his skeletal chest pain. Risk of further pulmonary process and or are explained for the patient and he verbalized understanding and acceptance Vitas looks stable, however patient desaturated to 88% on room air. CBC, BMP and liver enzymes were unremarkable. Troponin is negative... EKG showing sinus bradycardia at 59 with right bundle-branch block, no significant ST-T changes. Chest x-ray: By basilar atelectasis or injury infiltrates. In the emergency room patient was started on Zithromax, and steroids. 05/03/2019 Patient with less respiratory distress and he can talk more freely however he still significantly dyspneic and tachypneic his cough is improved significantly compared to yesterday. His vitals are stable however his blood pressure on the high side. We going to increase his hydralazine from twice daily to 3 times daily. Patient remains on steroids and antibiotics, and pulmonary input is appreciated. We going to downgrade his pain medication, from Dilaudid intravenously and increase his oral Percocet 10-325 from every 6 hours to every 4 hours for now. Decrease IV fluids to 75 with a per hour, repeat chest x-ray today. Inflow was at this is negative 05/04/2019 Patient's dyspnea and respiratory distress still improving while on steroids and antibiotics., Repeat chest x-ray from yesterday showed improvement, however patient still have significant expiratory wheezing on auscultation. Pulmonary evaluated the patient and recommended to keep the patient for today which looks appropriate. Continue with Percocet, patient did not want to lower the frequency of his Percocet from every 4 hours down to every 6, we'll recommend to lower rate tomorrow, upon discharge Possible discharge in 24-48 hours if patient keeps improving Objective - Vital Signs Vital signs: Vital Signs Temp 97.8 F 05/04/19 04:56 Pulse 84 05/04/19 09:32 Resp 18 05/04/19 04:56 BP 181/95 05/04/19 04:56 Pulse Ox 92 L 05/04/19 04:56 Intake & Output 05/03/19 05/04/19 05/04/19 18:59 06:59 18:59 Intake Total 320 Output Total 1525 1300 Balance -1525 -1300 320 Intake: Oral 320 Output: Urine 1525 1300 Other: Voiding Method Urinal - Exam GENERAL: The patient is alert and oriented x3, not in any acute distress. Well developed, well nourished. HEENT: Pupils are round and equally reacting to light. EOMI. No scleral icterus. No conjunctival pallor. Normocephalic, atraumatic. No pharyngeal erythema. No thyromegaly. CARDIOVASCULAR: S1 and S2 present. No murmurs, rubs, or gallops. -PULMONARY: Chest is clear to auscultation, bilateral expiratory wheezing with prolonged expiration ABDOMEN: Soft, nontender, nondistended, normoactive bowel sounds. No palpable o rganomegaly. MUSCULOSKELETAL: No joint swelling or deformity. EXTREMITIES: No cyanosis, clubbing, or pedal edema. NEUROLOGICAL: Gross neurological examination did not reveal any focal deficits. SKIN: No rashes. no petechiae. - Labs CBC & Chem 7: 05/02/19 12:40 05/02/19 12:40 Labs: Abnormal Lab Results - Last 24 Hours (Table) 05/03/19 05/03/19 05/04/19 Range/Units 16:55 21:36 07:10 POC Glucose (mg/dL) 124 H 151 H 115 H (75-99) mg/dL 05/04/19 Range/Units 11:45 POC Glucose (mg/dL) 123 H (75-99) mg/dL Microbiology - Last 24 Hours (Table) 05/02/19 12:40 Blood Culture - Preliminary Blood No Growth after 24 hours Assessment and Plan Assessment: Acute COPD exacerbation Chronic atrial flutter Hypertension Sleep apnea on CPAP/BiPAP Primary osteoarthritis Plan: This is a pleasant 64 years old male who presents with COPD exacerbation. Continue with steroids, bronchodilators, inhalation steroids and oxygen as needed. Incentive spirometry . Decreased pain medication, patient's wants to keep the pain medication as it is currently Percocet every 4 hours, risks including but not limited to respiratory, and cardiac depression and/or are explained for him and he agrees. Labs and medication were reviewed.. Continue same treatment. Continue with symptomatic treatment. Resume home medication. Monitor lytes and vitals. DVT and GI prophylaxis. Further recommendations of the clinical course of the patient DVT prophylaxis: Subcutaneous heparin GI Prophylaxis: Pepcid PT/OT: Pending Prognosis is guarded
[2019-05-04 17:15] LABS: Glucose,Whole Blood 125 mg/dL (75-99)
[2019-05-04 20:39] LABS: Glucose,Whole Blood 125 mg/dL (75-99)
[2019-05-04 22:54] LABS: Calcium 8.7 mg/dL (8.4-10.2); Potassium 3.9 mmol/L (3.5-5.1)
[2019-05-05] MEDS: SODIUM CHLORIDE 0.9% 1,000 ML IV SCH ×2 (01:34→13:13)
[2019-05-05] MEDS: oxyCODONE-APAP 10-325MG 1 EACH TAB PO PRN ×3 (03:43→12:03)
[2019-05-05] MEDS: IPRATROPIUM 0.5 MG/2.5 ML NEBU INHALATION SCH ×2 (06:48→11:13)
[2019-05-05] MEDS: methylPREDNISolone SOD SUCCI 125 MG/2 ML VIAL IV SCH ×2 (06:52→12:34)
[2019-05-05 07:07] LABS: Glucose,Whole Blood 105 mg/dL (75-99)
[2019-05-05] MEDS: INSULIN ASPART (NovoLOG) 100 UNIT/ML VIAL SQ SCH ×2 (07:08→12:18)
[2019-05-05] MEDS: buPROPion XL 150 MG TAB.ER.24H PO SCH (07:31)
[2019-05-05] MEDS: HEPARIN SODIUM,PORCINE 5,000 UNIT/ML 1 ML VIAL SQ SCH (07:31)
[2019-05-05] MEDS: amLODIPine 5 MG TAB PO SCH (07:32)
[2019-05-05] MEDS: SERTRALINE 100 MG TAB PO SCH (07:32)
[2019-05-05] MEDS: MONTELUKAST 10 MG TAB PO SCH (07:32)
[2019-05-05] MEDS: hydrALAZINE HCL 25 MG TAB PO SCH (07:32)
[2019-05-05] MEDS: AZITHROMYCIN 500 MG TAB PO SCH (07:32)
[2019-05-05] MEDS: METOPROLOL TARTRATE 25 MG TAB PO SCH (07:33)
[2019-05-05] MEDS: FAMOTIDINE 20 MG TAB PO SCH (07:33)
[2019-05-05 12:08] LABS: Glucose,Whole Blood 122 mg/dL (75-99)
[2019-05-05 14:02] VITALS: BP 149/92; PULSE 69; RESP 14; TEMP 97.6
--- NOTE | 2019-05-05 14:15 | P.DS ---
Providers Date of admission: 05/02/19 15:12 Expected date of discharge: 05/05/19 Attending physician: Campbell Avilez Consults: 05/02/19 18:04 Consult Physician Routine Consulting Provider: Nehemiah Granados Consult Reason/Comments: SOB COUGH Do you want consulting provider notified?: Yes Primary care physician: Deborah [facility] Course: 63-year-old well-known to me with long-standing history of smoking and nicotine abuse he has advanced sleep apnea but has declined repeat sleep study and CPAP use, patient has been having cough congestion or shortness of breath for 2 weeks has a course of antibiotics and steroids as outpatient without any relief came into the hospital for failed outpatient therapy no hemoptysis is present patient was noted to be desaturating intermittently with sats were 88% on room air, Dr. Marcus is managing his pain medicine for his severe disabling pain of the spine 05/03/2019 Patient with less respiratory distress and he can talk more freely however he still significantly dyspneic and tachypneic his cough is improved significantly compared to yesterday. His vitals are stable however his blood pressure on the high side. We going to increase his hydralazine from twice daily to 3 times daily. Patient remains on steroids and antibiotics, and pulmonary input is appreciated. We going to downgrade his pain medication, from Dilaudid intravenously and increase his oral Percocet 10-325 from every 6 hours to every 4 hours for now. Decrease IV fluids to 75 with a per hour, repeat chest x-ray today. Inflow was at this is negative 05/04/2019 Patient's dyspnea and respiratory distress still improving while on steroids and antibiotics., Repeat chest x-ray from yesterday showed improvement, however patient still have significant expiratory wheezing on auscultation. Pulmonary evaluated the patient and recommended to keep the patient for today which looks appropriate. Continue with Percocet, patient did not want to lower the frequency of his Percocet from every 4 hours down to every 6, we'll recommend to lower rate tomorrow, upon discharge Possible discharge in 24-48 hours if patient keeps improving 05/05/2019; clinically stable and cleared for dc by pulmonary Patient Condition at Discharge: Stable Plan - Discharge Summary New Discharge Prescriptions: New Azithromycin [Zithromax] 500 mg PO DAILY #4 tab Continue Montelukast [Singulair] 10 mg PO DAILY Metoprolol Tartrate 25 mg PO DAILY hydrALAZINE HCL [Apresoline] 25 mg PO BID Sertraline [Zoloft] 100 mg PO DAILY amLODIPine [Norvasc] 5 mg PO DAILY predniSONE 10 mg PO DAILY buPROPion HCL [Wellbutrin XL] 150 mg PO DAILY Discharge Medication List Montelukast [Singulair] 10 mg PO DAILY 03/16/14 [History] Metoprolol Tartrate 25 mg PO DAILY 04/24/18 [History] Sertraline [Zoloft] 100 mg PO DAILY 11/04/18 [History] hydrALAZINE HCL [Apresoline] 25 mg PO BID 11/04/18 [History] amLODIPine [Norvasc] 5 mg PO DAILY 12/29/18 [History] buPROPion HCL [Wellbutrin XL] 150 mg PO DAILY 05/02/19 [History] predniSONE 10 mg PO DAILY 05/02/19 [History] Azithromycin [Zithromax] 500 mg PO DAILY #4 tab 05/05/19 [Rx] Follow up Appointment(s)/Referral(s): Deborah Shah III, MD [Primary Care Provider] - 05/10/19 1:30 pm Nehemiah Granados MD [STAFF PHYSICIAN] - 1 Week (Patient to call Dr. Granados's office Wednesday to schedule follow up appointment. The office is closed at time of discharge. ) Patient Instructions/Handouts: COPD (Chronic Obstructive Pulmonary Disease) (DC), Hypoxia (ED)
--- NOTE | 2019-05-05 15:05 | P.PN ---
Subjective Progress Note Date: 05/05/19 Principal diagnosis: Acute on chronic hypoxic respiratory failure Acute COPD exacerbation Chronic pain syndrome Sleep apnea and sleep disorder breathing Morbid obesity Hypertension and hypertensive heart disease 05/05/2019, patient seen eval reexamined during the rounds cuff congestion is slightly better wheezing is less intensified patient x-rays and radiographic data has been reviewed along with labs patient can be discharged home from pulmonary standpoint with follow-up on outpatient basis 05/04/2019, patient seen and evaluated examined during the rounds labs reviewed medications reviewed radiographic studies reviewed as well care plan discussed with the staff at length, his cough congestion and wheezing slightly better now able to get up but however still remain on intermittent oxygen, discussed with him about sleep study he has declined as he cannot use the CPAP machine, 63-year-old well-known to me with long-standing history of smoking and nicotine abuse he has advanced sleep apnea but has declined repeat sleep study and CPAP use, patient has been having cough congestion or shortness of breath for 2 weeks has a course of antibiotics and steroids as outpatient without any relief came into the hospital for failed outpatient therapy no hemoptysis is present patient was noted to be desaturating intermittently with sats were 88% on room air, Dr. Marcus is managing his pain medicine for his severe disabling pain of the spine Objective - Vital Signs Vital signs: Vital Signs Temp 97.6 F 05/05/19 13:00 Pulse 69 05/05/19 13:00 Resp 14 05/05/19 13:00 BP 149/92 05/05/19 13:00 Pulse Ox 94 L 05/05/19 13:00 Intake & Output 05/04/19 05/05/19 05/05/19 18:59 06:59 18:59 Intake Total 520 600 Output Total 700 Balance 520 -700 600 Intake: IV 600 Sodium Chloride 0.9% 1, 600 000 ml @ 75 mls/hr IV . [id number] [facility] Rx#:[id number] Oral 520 Output: Urine 700 Other: Voiding Method Urinal # Voids 3 - Exam Constitutional General appearance: disheveled, mild distress, morbidly obese - EENT Eyes: anicteric sclerae, EOMI, PERRLA, poor dentition, normal appearance ENT: normal oropharynx Ears: bilateral: normal - Neck Carotids: bilateral: upstroke normal Thyroid: bilateral: normal size - Respiratory Respiratory: bilateral: diminished, rhonchi, prolonged expiration - Cardiovascular Rhythm: regular Heart sounds: normal: S1, S2 - Gastrointestinal General gastrointestinal: decreased bowel sounds, distended, soft - Neurologic Neurologic: CNII-XII intact - Musculoskeletal Musculoskeletal: gait normal, generalized weakness, strength equal bilaterally - Psychiatric Psychiatric: A&O x's 3 - Labs CBC & Chem 7: 05/02/19 12:40 05/04/19 22:22 Labs: Abnormal Lab Results - Last 24 Hours (Table) 05/04/19 05/04/19 05/04/19 Range/Units 17:12 20:36 22:22 BUN 30 H (9-20) mg/dL Glucose 138 H (74-99) mg/dL POC Glucose (mg/dL) 125 H 125 H (75-99) mg/dL 05/05/19 05/05/19 Range/Units 07:05 12:05 BUN (9-20) mg/dL Glucose (74-99) mg/dL POC Glucose (mg/dL) 105 H 122 H (75-99) mg/dL Microbiology - Last 24 Hours (Table) 05/02/19 12:40 Blood Culture - Preliminary Blood No Growth after 72 hours Assessment and Plan Assessment: Acute on chronic hypoxic respiratory failure Acute COPD exacerbation Chronic pain syndrome Sleep apnea and sleep disorder breathing Morbid obesity Hypertension and hypertensive heart disease Plan: Bronchodilator IV steroids to be continued 10 be changed to oral prednisone at the time of discharge Breathing treatments Discussed with the patient about sleep study has declined Further recommendations pending plan of care as per clinical response of the patient Time with Patient: Greater than 30
== END 2019-05-05 14:26 | disposition home or self-care (01) | DRG 190 ==
LOC: EC 12:15 → 4MS4W 15:12
PROVIDERS: ADMIT Hospitalist; ATTEND Hospitalist
DX: J44.1 Chronic obstructive pulmonary disease with (acute) exacerbation (principal); J96.21 Acute and chronic respiratory failure with hypoxia; I48.92 Unspecified atrial flutter; E66.01 Morbid (severe) obesity due to excess calories; Z68.30 Body mass index [BMI] 30.0-30.9, adult; F31.9 Bipolar disorder, unspecified; F41.0 Panic disorder [episodic paroxysmal anxiety]; G47.30 Sleep apnea, unspecified; G89.4 Chronic pain syndrome; I11.9 Hypertensive heart disease without heart failure; I45.10 Unspecified right bundle-branch block; J84.10 Pulmonary fibrosis, unspecified; K21.9 Gastro-esophageal reflux disease without esophagitis; M19.90 Unspecified osteoarthritis, unspecified site; Z79.899 Other long term (current) drug therapy; Z82.5 Family history of asthma and other chronic lower respiratory diseases; Z87.891 Personal history of nicotine dependence; Z60.2 Problems related to living alone; Z87.01 Personal history of pneumonia (recurrent); Z90.49 Acquired absence of other specified parts of digestive tract; F40.240 Claustrophobia; Z82.3 Family history of stroke; R00.1 Bradycardia, unspecified; M54.2 Cervicalgia; R07.89 Other chest pain
CPT/HCPCS: 36415; 71045; 71046; 80048; 80053; 83735; 84484; 85025; 85610; 85730; 87040; 87502; 93005; 94640; 94760; 96361; 96374; 99285

== ENCOUNTER 2019-05-06 11:28 | Inpatient (IN) | payer MEDICARE, OTHER ==
[2019-05-06] MEDS ORDERED: methylPREDNISolone SOD SUCCI 125 MG/2 ML VIAL IV STA (11:57)
[2019-05-06] MEDS ORDERED: IPRATROPIUM-ALBUTEROL 3 ML NEB INHALATION STA (11:57)
[2019-05-06] MEDS ORDERED: MAGNESIUM SULFATE-D5W PMX 1 GM in DEXTROSE/WATER 1 100ML.BAG IVPB STA (11:57)
[2019-05-06] MEDS ORDERED: HYDROmorphone 0.5 MG/0.5 ML SYRINGE IVP STA (12:02)
[2019-05-06] MEDS ORDERED: methylPREDNISolone SOD SUCCI 40 MG/ML 1 ML VIAL IV STA (12:04)
[2019-05-06 12:22] LABS: Basophils # (A) 0.1 k/uL (0-0.2); Basophils % (A) 1 %; Eosinophils % (A) 0 %; HCT 37.3 % (39.0-53.0); HGB 12.8 gm/dL (13.0-17.5); Lymphocytes # (A) 1.2 k/uL (1.0-4.8); Lymphocytes % (A) 12 %; MCH 32.7 pg (25.0-35.0); MCHC 34.3 g/dL (31.0-37.0); MCV 95.4 fL (80.0-100.0); Mean Platelet Volume 5.6; Monocytes # (A) 0.7 k/uL (0-1.0); Monocytes % (A) 7 %; Neutrophils # (A) 7.5 k/uL (1.3-7.7); Neutrophils % (A) 78 %; Platelet Count 186 k/uL (150-450); RBC 3.92 m/uL (4.30-5.90); RDW 14.3 % (11.5-15.5); WBC 9.6 k/uL (3.8-10.6)
[2019-05-06 12:31] LABS: ALT 41 U/L (21-72); AST 34 U/L (17-59); African American GFR (CKD) >90 (>60 ml/min/1.73 sqM); Albumin 3.9 g/dL (3.5-5.0); Alkaline Phosphatase 59 U/L (38-126); Anion Gap 9 mmol/L; Blood Urea Nitrogen 24 mg/dL (9-20); Calcium 9.4 mg/dL (8.4-10.2); Carbon Dioxide 27 mmol/L (22-30); Chloride 107 mmol/L (98-107); Glucose 74 mg/dL (74-99); Non-African American GFR(CKD) 80 (>60 ml/min/1.73 sqM); Potassium 3.2 mmol/L (3.5-5.1); Sodium 143 mmol/L (137-145); Total Bilirubin 0.7 mg/dL (0.2-1.3); Total Protein 6.2 g/dL (6.3-8.2)
--- NOTE | 2019-05-06 12:31 | ED ---
SOB HPI - General Chief Complaint: Shortness of Breath Stated Complaint: GREGG Time Seen by Provider: 05/06/19 11:35 Source: patient Mode of arrival: wheelchair Limitations: no limitations - History of Present Illness Initial Comments: The patient is a 63-year-old male with past history of COPD and degenerative disc disease who presents to the emergency room with reported shortness of breath. Review of the patient's record him and states that he was just discharged from the hospital yesterday. States that he was hospitalized for a COPD exacerbation. He is placed on steroids and antibiotics. He has been using his nebulizer and inhalers as directed. Reports that he felt well and wanted to go home yesterday however last night he had return of the diffuse wheezing. Reports that he has been taking his steroids as directed. He has had to pick out hand his antibiotic from the pharmacy. He does see Dr. Granados the outpatient setting. He admits to chest pressure. Denies chest pain. No history of cardiac disease. No history of DVTs or PEs. He is not on any blood thinning medications. Denies any unilateral calf pain or swelling. Does admit to occasional pedal edema however has been improved at this time. Denies any fevers or chills. Does report a reductive cough which hasn't been improved with his antibiotics. No hemoptysis. No ripping or tearing sensation to his back. The patient reports a history of sleep apnea however cannot tolerate using CPAP machine. There are no other alleviating, precipitating or modifying factors - Related Data Home Medications Medication Instructions Recorded Confirmed Montelukast [Singulair] 10 mg PO DAILY 03/16/14 05/06/19 Metoprolol Tartrate 25 mg PO DAILY 04/24/18 05/06/19 Sertraline [Zoloft] 100 mg PO DAILY 11/04/18 05/06/19 hydrALAZINE HCL [Apresoline] 25 mg PO BID 11/04/18 05/06/19 amLODIPine [Norvasc] 5 mg PO DAILY 12/29/18 05/06/19 buPROPion HCL [Wellbutrin XL] 150 mg PO DAILY 05/02/19 05/06/19 predniSONE 10 mg PO DAILY 05/02/19 05/06/19 oxyCODONE-APAP 10-325MG [Percocet 1 tab PO Q6HR PRN 10/05/19 10/05/19 10-325 mg] Previous Rx's Medication Instructions Recorded Azithromycin [Zithromax] 500 mg PO DAILY #4 tab 05/05/19 Allergies Allergy/AdvReac Type Severity Reaction Status Date / Time peanut Allergy alg testing Verified 05/06/19 11:48 pollen extracts Allergy Unknown Verified 05/06/19 11:48 DUST Allergy alg testing Uncoded 05/06/19 11:48 Review of Systems ROS Statement: Those systems with pertinent positive or pertinent negative responses have been documented in the HPI. ROS Other: All systems not noted in ROS Statement are negative. Past Medical History Past Medical History: Atrial Flutter, Asthma, Chest Pain / Angina, COPD, GERD/R eflux, Hypertension, Osteoarthritis (OA), Pneumonia, Sleep Apnea/CPAP/BIPAP Additional Past Medical History / Comment(s): Back problems History of Any Multi-Drug Resistant Organisms: None Reported Past Surgical History: Adenoidectomy, Bowel Resection, Cholecystectomy Additional Past Surgical History / Comment(s): Nasal Past Anesthesia/Blood Transfusion Reactions: Previous Problems w/ Anesthesia, Motion Sickness Additional Past Anesthesia/Blood Transfusion Reaction / Comment(s): states "during procedure of checking something on my left lung,I turned blue and I was brought right back out anesthesia and proc was cancelled". clausterphobia Past Psychological History: Anxiety, Bipolar, Depression, Panic Disorder Smoking Status: Former smoker Past Alcohol Use History: Heavy, None Reported Past Drug Use History: Marijuana - Past Family History Mother Family Medical History: Asthma Additional Family Medical History / Comment(s): at age 62 Father Family Medical History: CVA/TIA Additional Family Medical History / Comment(s): at age 90 General Exam Limitations: no limitations General appearance: alert, in no apparent distress, anxious Head exam: Present: atraumatic, normocephalic, normal inspection Eye exam: Present: normal appearance, PERRL, EOMI. Absent: scleral icterus, co njunctival injection, periorbital swelling ENT exam: Present: normal exam, mucous membranes moist Neck exam: Present: normal inspection. Absent: tenderness, meningismus, lymphadenopathy Respiratory exam: Present: respiratory distress, wheezes, accessory muscle use. Absent: rales, rhonchi, stridor Cardiovascular Exam: Present: regular rate, normal rhythm, normal heart sounds. Absent: systolic murmur, diastolic murmur, rubs, gallop, clicks GI/Abdominal exam: Present: soft, normal bowel sounds. Absent: distended, tenderness, guarding, rebound, rigid Extremities exam: Present: normal inspection, full ROM, normal capillary refill. Absent: tenderness, pedal edema, joint swelling, calf tenderness Back exam: Present: normal inspection Neurological exam: Present: alert, oriented X3, CN II-XII intact Psychiatric exam: Present: anxious Skin exam: Present: warm, dry, intact, normal color. Absent: rash Course Vital Signs 05/06/19 05/06/19 05/06/19 11:32 12:13 12:28 Temperature 98.9 F Pulse Rate 84 67 68 Pulse Rate [ Pulse Oximetery ] Respiratory 20 Rate Blood Pressure 166/98 Blood Pressure [Right Arm] O2 Sat by Pulse 98 Oximetry 05/06/19 05/06/19 05/06/19 12:33 13:53 14:32 Temperature 97.9 F Pulse Rate 73 67 75 Pulse Rate [ Pulse Oximetery ] Respiratory 22 20 20 Rate Blood Pressure 171/94 182/98 177/99 Blood Pressure [Right Arm] O2 Sat by Pulse 98 94 L 97 Oximetry 05/06/19 14:45 Temperature 98 F Pulse Rate Pulse Rate [ 73 Pulse Oximetery ] Respiratory 18 Rate Blood Pressure Blood Pressure 182/100 [Right Arm] O2 Sat by Pulse 96 Oximetry Medical Decision Making - Medical Decision Making Upon arrival the patient was placed into room 10. There are visible exam was performed. I did provide the patient with a DuoNeb breathing treatment. IV access was established. Laboratories is were conducted. The patient was given a gram of magnesium and 40 mg of Solu-Medrol as he is already on steroids. The patient was sent for chest x-ray. Laboratory studies and chest x-ray are unremarkable in comparison to previous. I did reevaluate the patient continues to have diffuse wheezing. Patient reports feeling uncomfortable going home. I did call and discuss the case with Dr. Manzanares who accepted admission for the patient. The patient remained in stable condition and was transported to the floor. - Lab Data Result diagrams: 05/08/19 07:07 05/09/19 07:47 Lab Results 05/06/19 05/06/19 05/06/19 Range/Units 11:50 11:50 11:50 WBC 9.6 (3.8-10.6) k/uL RBC 3.92 L (4.30-5.90) m/uL Hgb 12.8 L (13.0-17.5) gm/dL Hct 37.3 L (39.0-53.0) % MCV 95.4 (80.0-100.0) fL MCH 32.7 (25.0-35.0) pg MCHC 34.3 (31.0-37.0) g/dL RDW 14.3 (11.5-15.5) % Plt Count 186 (150-450) k/uL Neutrophils % 78 % Lymphocytes % 12 % Monocytes % 7 % Eosinophils % 0 % Basophils % 1 % Neutrophils # 7.5 (1.3-7.7) k/uL Lymphocytes # 1.2 (1.0-4.8) k/uL Monocytes # 0.7 (0-1.0) k/uL Eosinophils # 0.0 (0-0.7) k/uL Basophils # 0.1 (0-0.2) k/uL PT 10.1 (9.0-12.0) sec INR 0.9 (<1.2) APTT 20.1 L (22.0-30.0) sec Sodium 143 (137-145) mmol/L Potassium 3.2 L (3.5-5.1) mmol/L Chloride 107 (98-107) mmol/L Carbon Dioxide 27 (22-30) mmol/L Anion Gap 9 mmol/L BUN 24 H (9-20) mg/dL Creatinine 1.00 (0.66-1.25) mg/dL Est GFR (CKD-EPI)AfAm >90 (>60 ml/min/1.73 sqM) Est GFR (CKD-EPI)NonAf 80 (>60 ml/min/1.73 sqM) Glucose 74 (74-99) mg/dL Calcium 9.4 (8.4-10.2) mg/dL Total Bilirubin 0.7 (0.2-1.3) mg/dL AST 34 (17-59) U/L ALT 41 (21-72) U/L Alkaline Phosphatase 59 (38-126) U/L Total Protein 6.2 L (6.3-8.2) g/dL Albumin 3.9 (3.5-5.0) g/dL 05/07/19 05/07/19 05/08/19 Range/Units 06:22 06:22 07:07 WBC 6.5 9.4 (3.8-10.6) k/uL RBC 3.84 L 3.92 L (4.30-5.90) m/uL Hgb 12.6 L 12.9 L (13.0-17.5) gm/dL Hct 37.5 L 38.5 L (39.0-53.0) % MCV 97.6 98.1 (80.0-100.0) fL MCH 32.9 33.0 (25.0-35.0) pg MCHC 33.7 33.6 (31.0-37.0) g/dL RDW 14.1 14.1 (11.5-15.5) % Plt Count 140 L 170 (150-450) k/uL Neutrophils % 88 89 % Lymphocytes % 7 5 % Monocytes % 4 4 % Eosinophils % 0 0 % Basophils % 0 0 % Neutrophils # 5.7 8.4 H (1.3-7.7) k/uL Lymphocytes # 0.4 L 0.5 L (1.0-4.8) k/uL Monocytes # 0.3 0.4 (0-1.0) k/uL Eosinophils # 0.0 0.0 (0-0.7) k/uL Basophils # 0.0 0.0 (0-0.2) k/uL PT (9.0-12.0) sec INR (<1.2) APTT (22.0-30.0) sec Sodium 138 (137-145) mmol/L Potassium 3.8 (3.5-5.1) mmol/L Chloride 104 (98-107) mmol/L Carbon Dioxide 26 (22-30) mmol/L Anion Gap 8 mmol/L BUN 23 H (9-20) mg/dL Creatinine 0.80 (0.66-1.25) mg/dL Est GFR (CKD-EPI)AfAm >90 (>60 ml/min/1.73 sqM) Est GFR (CKD-EPI)NonAf >90 (>60 ml/min/1.73 sqM) Glucose 138 H (74-99) mg/dL Calcium 8.7 (8.4-10.2) mg/dL Total Bilirubin (0.2-1.3) mg/dL AST (17-59) U/L ALT (21-72) U/L Alkaline Phosphatase (38-126) U/L Total Protein (6.3-8.2) g/dL Albumin (3.5-5.0) g/dL 05/08/19 Range/Units 07:07 WBC (3.8-10.6) k/uL RBC (4.30-5.90) m/uL Hgb (13.0-17.5) gm/dL Hct (39.0-53.0) % MCV (80.0-100.0) fL MCH (25.0-35.0) pg MCHC (31.0-37.0) g/dL RDW (11.5-15.5) % Plt Count (150-450) k/uL Neutrophils % % Lymphocytes % % Monocytes % % Eosinophils % % Basophils % % Neutrophils # (1.3-7.7) k/uL Lymphocytes # (1.0-4.8) k/uL Monocytes # (0-1.0) k/uL Eosinophils # (0-0.7) k/uL Basophils # (0-0.2) k/uL PT (9.0-12.0) sec INR (<1.2) APTT (22.0-30.0) sec Sodium 137 (137-145) mmol/L Potassium 4.2 (3.5-5.1) mmol/L Chloride 102 (98-107) mmol/L Carbon Dioxide 30 (22-30) mmol/L Anion Gap 5 mmol/L BUN 25 H (9-20) mg/dL Creatinine 0.97 (0.66-1.25) mg/dL Est GFR (CKD-EPI)AfAm >90 (>60 ml/min/1.73 sqM) Est GFR (CKD-EPI)NonAf 84 (>60 ml/min/1.73 sqM) Glucose 135 H (74-99) mg/dL Calcium 8.8 (8.4-10.2) mg/dL Total Bilirubin (0.2-1.3) mg/dL AST (17-59) U/L ALT (21-72) U/L Alkaline Phosphatase (38-126) U/L Total Protein (6.3-8.2) g/dL Albumin (3.5-5.0) g/dL - EKG Data EKG Comments: EKG demonstrates a sinus rhythm with a ventricular rate of 64. AL interval 1:30. QRS 148. QTC 49. There is a right bundle branch block with associated ST depression. No acute ST segment elevations concerning for infarction. Disposition Clinical Impression: COPD exacerbation Disposition: ADMITTED IP TO THIS HOSP Condition: Stable Is patient prescribed a controlled substance at d/c from ED?: No Decision to Admit Reason: Admit from EC Decision Date: 05/06/19 Decision Time: 13:47
[2019-05-06 12:36] LABS: INR 0.9 (<1.2)
[2019-05-06 12:37] LABS: Prothrombin Time 10.1 sec (9.0-12.0)
[2019-05-06 12:41] LABS: Partial Thromboplastin Time 20.1 sec (22.0-30.0)
--- NOTE | 2019-05-06 12:44 | XR ---
EXAMINATION TYPE: XR chest 2V DATE OF EXAM: 05/06/2019 HISTORY: difficulty breathing. REFERENCE: Previous study dated 05/03/2019. FINDINGS: Heart size upper limits of normal. The lungs are clear. Pleural spaces are clear. IMPRESSION: CARDIOMEGALY.
[2019-05-06] MEDS ORDERED: NALOXONE 0.4 MG/ML 1 ML VIAL IV PRN (13:48)
[2019-05-06] MEDS ORDERED: METOPROLOL TARTRATE 25 MG TAB PO STA (14:30)
[2019-05-06] MEDS ORDERED: amLODIPine 5 MG TAB PO STA (14:31)
[2019-05-06] MEDS ORDERED: hydrALAZINE HCL 50 MG TAB PO STA (14:31)
[2019-05-06] MEDS ORDERED: hydrALAZINE HCL 25 MG TAB PO STA (14:36)
[2019-05-06] MEDS: AZITHROMYCIN 500 MG TAB PO SCH (14:37)
[2019-05-06] MEDS: oxyCODONE-APAP 10-325MG 1 EACH TAB PO PRN ×2 (15:17→20:01)
[2019-05-06] MEDS: methylPREDNISolone SOD SUCCI 40 MG/ML 1 ML VIAL IV SCH ×2 (15:39→23:58)
[2019-05-06] MEDS: IPRATROPIUM-ALBUTEROL 3 ML NEB INHALATION SCH ×3 (15:45→23:13)
--- NOTE | 2019-05-06 16:40 | P.HPIM ---
History of Present Illness H&P Date: 05/06/19 Chief Complaint: Shortness of breath 63-year-old male with past history of COPD and degenerative disc disease who presents to the emergency room with reported shortness of breath. Review of the patient's record him and states that he was just discharged from the hospital yesterday. States that he was hospitalized for a COPD exacerbation. He is placed on steroids and antibiotics. He has been using his nebulizer and inhalers as directed. Reports that he felt well and wanted to go home yesterday however last night he had return of the diffuse wheezing. Reports that he has been taking his steroids as directed. He has had to picker tender his antibiotic from the pharmacy. He does see Dr. Granados the outpatient setting. He admits to chest pressure. Denies chest pain. No history of cardiac disease. No history of DVTs or PEs. He is not on any blood thinning medications. Denies any unilateral calf pain or swelling. Does admit to occasional pedal edema however has been improved at this time. Denies any fevers or chills. Does report a reductive cough which hasn't been improved with his antibiotics. No hemoptysis. No ripping or tearing sensation to his back. The patient reports a history of sleep apnea however cannot tolerate using CPAP machine. There are no other alleviating, precipitating or modifying factors Review of Systems Constitutional: Denies chills, Denies fever Eyes: denies blurred vision Ears, nose, mouth and throat: Denies epistaxis, Denies hoarseness Cardiovascular: Denies chest pain Respiratory: Reports cough with sputum, Reports dyspnea Gastrointestinal: Denies abdominal pain, Denies nausea, Denies vomiting Integumentary: Denies color changes, Denies darkening of skin Neurological: Denies confusion Psychiatric: Reports anxiety Endocrine: Denies cold intolerance, Denies heat intolerance Past Medical History Past Medical History: Atrial Flutter, Asthma, Chest Pain / Angina, COPD, GERD/Reflux, Hypertension, Osteoarthritis (OA), Pneumonia, Sleep Apnea/CPAP/BIPAP Additional Past Medical History / Comment(s): Back problems History of Any Multi-Drug Resistant Organisms: None Reported Past Surgical History: Adenoidectomy, Bowel Resection, Cholecystectomy Additional Past Surgical History / Comment(s): Nasal Past Anesthesia/Blood Transfusion Reactions: Previous Problems w/ Anesthesia, Motion Sickness Additional Past Anesthesia/Blood Transfusion Reaction / Comment(s): states "during procedure of checking something on my left lung,I turned blue and I was brought right back out anesthesia and proc was cancelled". clausterphobia Smoking Status: Former smoker - Past Family History Mother Family Medical History: Asthma Additional Family Medical History / Comment(s): at age 62 Father Family Medical History: CVA/TIA Additional Family Medical History / Comment(s): at age 90 Medications and Allergies Home Medications Medication Instructions Recorded Confirmed Type Montelukast [Singulair] 10 mg PO DAILY 03/16/14 05/06/19 History Metoprolol Tartrate 25 mg PO DAILY 04/24/18 05/06/19 History Sertraline [Zoloft] 100 mg PO DAILY 11/04/18 05/06/19 History hydrALAZINE HCL [Apresoline] 25 mg PO BID 11/04/18 05/06/19 History amLODIPine [Norvasc] 5 mg PO DAILY 12/29/18 05/06/19 History buPROPion HCL [Wellbutrin XL] 150 mg PO DAILY 05/02/19 05/06/19 History predniSONE 10 mg PO DAILY 05/02/19 05/06/19 History Azithromycin [Zithromax] 500 mg PO DAILY #4 tab 05/05/19 05/06/19 Rx oxyCODONE-APAP 10-325MG [Percocet 1 tab PO Q6HR PRN 05/06/19 05/06/19 History 10-325 mg] Allergies Allergy/AdvReac Type Severity Reaction Status Date / Time peanut Allergy alg testing Verified 05/06/19 11:48 pollen extracts Allergy Unknown Verified 05/06/19 11:48 DUST Allergy alg testing Uncoded 05/06/19 11:48 Physical Exam Vitals: Vital Signs Temp Pulse Pulse Resp BP BP Pulse Ox 05/06/19 15:56 68 16 05/06/19 15:46 65 16 96 05/06/19 14:45 98 F 73 18 182/100 96 05/06/19 14:32 97.9 F 75 20 177/99 97 05/06/19 13:53 67 20 182/98 94 L 05/06/19 12:33 73 22 171/94 98 05/06/19 12:28 68 05/06/19 12:13 67 05/06/19 11:32 98.9 F 84 20 166/98 98 Intake and Output 05/06/19 05/06/19 05/06/19 06:59 14:59 22:59 Other: Voiding Method Toilet Weight 95.254 kg PHYSICAL EXAMINATION: GENERAL: The patient is alert and oriented x3, not in any acute distress. Well developed, well nourished. HEENT: Pupils are round and equally reacting to light. EOMI. No scleral icterus. No conjunctival pallor. Normocephalic, atraumatic. No pharyngeal erythema. No thyromegaly. CARDIOVASCULAR: S1 and S2 present. No murmurs, rubs, or gallops. PULMONARY: Markedly decreased breath sounds with expiratory wheezing. ABDOMEN: Soft, nontender, nondistended, normoactive bowel sounds. No palpable organomegaly. MUSCULOSKELETAL: No joint swelling or deformity. EXTREMITIES: No cyanosis, clubbing, or pedal edema. NEUROLOGICAL: Gross neurological examination did not reveal any focal deficits. SKIN: No rashes. Results CBC & Chem 7: 05/06/19 11:50 05/06/19 11:50 Labs: Abnormal Lab Results - Last 24 Hours (Table) 05/06/19 05/06/19 05/06/19 Range/Units 11:50 11:50 11:50 RBC 3.92 L (4.30-5.90) m/uL Hgb 12.8 L (13.0-17.5) gm/dL Hct 37.3 L (39.0-53.0) % APTT 20.1 L (22.0-30.0) sec Potassium 3.2 L (3.5-5.1) mmol/L BUN 24 H (9-20) mg/dL Total Protein 6.2 L (6.3-8.2) g/dL Thrombosis Risk Factor Assmnt - Choose All That Apply Any of the Below Risk Factors Present?: Yes Each Factor Represents 1 point: Medical pt on bed rest Other Risk Factors: Yes Each Risk Factor Represents 2 Points: Age 61-74 years Thrombosis Risk Factor Assessment Total Risk Factor Score: 3 Thrombosis Risk Factor Assessment Level: Moderate Risk Assessment and Plan Assessment: 1. Acute exacerbation COPD - Start patient on IV Solu-Medrol, DuoNeb nebulizer treatments and symptomatic treatment with antitussive therapy with O2 per nasal cannula keeping SpO2 greater than 90% - We will consult pulmonary service of further recommendations 2. Purulent tracheobronchitis; azithromycin 500 mg daily 3. Accelerated hypertension; restart on home antihypertensive therapy in form of hydralazine, amlodipine and metoprolol; we will use IV hydralazine if blood pressure remains elevated 4. Sleep apnea; patient uses CPAP at home 5. Obesity; counseling done on benefits of weight reduction DVT prophylaxis; SCDs/subcu heparin CODE STATUS; full code Time with Patient: Greater than 30
[2019-05-06] MEDS ORDERED: IPRATROPIUM-ALBUTEROL 3 ML NEB INHALATION PRN (19:54)
[2019-05-06] MEDS: ALPRAZolam 0.5 MG TAB PO PRN (20:01)
[2019-05-06] MEDS: guaiFENesin-DM 100-10MG/5ML 10 ML CUP PO PRN (20:36)
[2019-05-06] MEDS: hydrALAZINE HCL 25 MG TAB PO SCH (20:36)
[2019-05-07] MEDS: oxyCODONE-APAP 10-325MG 1 EACH TAB PO PRN ×4 (03:06→20:58)
[2019-05-07] MEDS: IPRATROPIUM-ALBUTEROL 3 ML NEB INHALATION SCH ×6 (03:39→23:47)
[2019-05-07] MEDS: ALPRAZolam 0.5 MG TAB PO PRN ×3 (04:30→16:14)
[2019-05-07 07:21] LABS: Basophils % (A) 0 %; Eosinophils % (A) 0 %; HCT 37.5 % (39.0-53.0); HGB 12.6 gm/dL (13.0-17.5); Lymphocytes # (A) 0.4 k/uL (1.0-4.8); Lymphocytes % (A) 7 %; MCH 32.9 pg (25.0-35.0); MCHC 33.7 g/dL (31.0-37.0); MCV 97.6 fL (80.0-100.0); Mean Platelet Volume 5.9; Monocytes # (A) 0.3 k/uL (0-1.0); Monocytes % (A) 4 %; Neutrophils # (A) 5.7 k/uL (1.3-7.7); Neutrophils % (A) 88 %; Platelet Count 140 k/uL (150-450); RBC 3.84 m/uL (4.30-5.90); RDW 14.1 % (11.5-15.5); WBC 6.5 k/uL (3.8-10.6)
[2019-05-07 07:25] LABS: African American GFR (CKD) >90 (>60 ml/min/1.73 sqM); Anion Gap 8 mmol/L; Blood Urea Nitrogen 23 mg/dL (9-20); Calcium 8.7 mg/dL (8.4-10.2); Carbon Dioxide 26 mmol/L (22-30); Chloride 104 mmol/L (98-107); Glucose 138 mg/dL (74-99); Non-African American GFR(CKD) >90 (>60 ml/min/1.73 sqM); Potassium 3.8 mmol/L (3.5-5.1); Sodium 138 mmol/L (137-145)
[2019-05-07] MEDS: SERTRALINE 100 MG TAB PO SCH (08:04)
[2019-05-07] MEDS: buPROPion XL 150 MG TAB.ER.24H PO SCH (08:04)
[2019-05-07] MEDS: AZITHROMYCIN 500 MG TAB PO SCH (08:04)
[2019-05-07] MEDS: methylPREDNISolone SOD SUCCI 40 MG/ML 1 ML VIAL IV SCH ×2 (08:05→16:15)
[2019-05-07] MEDS: amLODIPine 5 MG TAB PO SCH (08:05)
[2019-05-07] MEDS: METOPROLOL TARTRATE 25 MG TAB PO SCH (08:05)
[2019-05-07] MEDS: MONTELUKAST 10 MG TAB PO SCH (08:05)
[2019-05-07] MEDS: guaiFENesin-DM 100-10MG/5ML 10 ML CUP PO PRN ×2 (08:05→16:14)
[2019-05-07] MEDS: hydrALAZINE HCL 25 MG TAB PO SCH ×2 (08:05→20:59)
--- NOTE | 2019-05-07 10:24 | P.CNPUL ---
History of Present Illness Consult date: 05/07/19 Reason for consult: dyspnea, cough, hypoxemia, obstructive sleep apnea Chief complaint: Shortness of breath and cough with wheezing History of present illness: 63-year-old male with history of severe COPD emphysema and sleep disorder breathing for which he is noncompliant he was just discharged from the hospital at the time of discharge was fairly stable in next 6-18 hours post discharge symptoms gradually got worse up to a point that wheezing and cough was unbearable came into the hospital for further evaluation and intervention and treatment Review of Systems All systems: negative Past Medical History Past Medical History: Atrial Flutter, Asthma, Chest Pain / Angina, COPD, GERD/Reflux, Hypertension, Osteoarthritis (OA), Pneumonia, Sleep Apnea/CPAP/BIPAP Additional Past Medical History / Comment(s): Back problems History of Any Multi-Drug Resistant Organisms: None Reported Past Surgical History: Adenoidectomy, Bowel Resection, Cholecystectomy Additional Past Surgical History / Comment(s): Nasal Past Anesthesia/Blood Transfusion Reactions: Previous Problems w/ Anesthesia, Motion Sickness Additional Past Anesthesia/Blood Transfusion Reaction / Comment(s): states "during procedure of checking something on my left lung,I turned blue and I was brought right back out anesthesia and proc was cancelled". clausterphobia Past Psychological History: Anxiety, Bipolar, Depression, Panic Disorder Smoking Status: Former smoker Past Alcohol Use History: Heavy, None Reported Past Drug Use History: Marijuana - Past Family History Mother Family Medical History: Asthma Additional Family Medical History / Comment(s): at age 62 Father Family Medical History: CVA/TIA Additional Family Medical History / Comment(s): at age 90 Medications and Allergies Home Medications Medication Instructions Recorded Confirmed Type Montelukast [Singulair] 10 mg PO DAILY 03/16/14 05/06/19 History Metoprolol Tartrate 25 mg PO DAILY 04/24/18 05/06/19 History Sertraline [Zoloft] 100 mg PO DAILY 11/04/18 05/06/19 History hydrALAZINE HCL [Apresoline] 25 mg PO BID 11/04/18 05/06/19 History amLODIPine [Norvasc] 5 mg PO DAILY 12/29/18 05/06/19 History buPROPion HCL [Wellbutrin XL] 150 mg PO DAILY 05/02/19 05/06/19 History predniSONE 10 mg PO DAILY 05/02/19 05/06/19 History Azithromycin [Zithromax] 500 mg PO DAILY #4 tab 05/05/19 05/06/19 Rx oxyCODONE-APAP 10-325MG [Percocet 1 tab PO Q6HR PRN 05/06/19 05/06/19 History 10-325 mg] Allergies Allergy/AdvReac Type Severity Reaction Status Date / Time peanut Allergy alg testing Verified 05/06/19 11:48 pollen extracts Allergy Unknown Verified 05/06/19 11:48 DUST Allergy alg testing Uncoded 05/06/19 11:48 Physical Exam Vitals: Vital Signs Temp Pulse Pulse Pulse Resp BP BP 05/07/19 09:11 18 05/07/19 08:00 20 05/07/19 07:50 72 05/07/19 07:37 72 05/07/19 05:25 97.6 F 75 18 171/84 05/07/19 03:50 74 05/07/19 03:40 75 05/07/19 00:00 69 73 20 05/06/19 23:26 73 05/06/19 23:14 70 05/06/19 21:22 98.5 F 69 20 160/83 05/06/19 19:48 70 05/06/19 19:36 68 05/06/19 15:56 68 16 05/06/19 15:46 65 16 05/06/19 14:45 98 F 73 18 182/100 05/06/19 14:32 97.9 F 75 20 177/99 05/06/19 13:53 67 20 182/98 05/06/19 12:33 73 22 171/94 05/06/19 12:28 68 05/06/19 12:13 67 05/06/19 11:32 98.9 F 84 20 166/98 Pulse Ox 05/07/19 09:11 96 05/07/19 08:00 05/07/19 07:50 05/07/19 07:37 05/07/19 05:25 94 L 05/07/19 03:50 05/07/19 03:40 05/07/19 00:00 05/06/19 23:26 05/06/19 23:14 05/06/19 21:22 94 L 05/06/19 19:48 05/06/19 19:36 10/05/19 15:56 05/06/19 15:46 96 05/06/19 14:45 96 05/06/19 14:32 97 05/06/19 13:53 94 L 05/06/19 12:33 98 05/06/19 12:28 05/06/19 12:13 05/06/19 11:32 98 Intake and Output 05/06/19 05/07/19 05/07/19 22:59 06:59 14:59 Intake Total 590 Balance 590 Intake: Oral 590 Other: Voiding Method Toilet Toilet Toilet Urinal # Voids 1 2 - Constitutional General appearance: average body habitus, cooperative, disheveled - EENT Eyes: EOMI, PERRLA, poor dentition Ears: bilateral: normal - Neck Carotids: bilateral: upstroke normal Thyroid: bilateral: normal size - Respiratory Respiratory: bilateral: diminished, wheezing, negative: dullness, rales, rhonchi - Cardiovascular Rhythm: regular Heart sounds: normal: S1, S2 - Gastrointestinal General gastrointestinal: normal bowel sounds - Neurologic Neurologic: CNII-XII intact - Musculoskeletal Musculoskeletal: gait normal, generalized weakness, strength equal bilaterally - Psychiatric Psychiatric: A&O x's 3, appropriate affect, intact judgment & insight Results - Laboratory Findings CBC and BMP: 05/07/19 06:22 05/07/19 06:22 PT/INR, D-dimer PT 10.1 sec (9.0-12.0) 05/06/19 11:50 INR 0.9 (<1.2) 05/06/19 11:50 Abnormal lab findings: Abnormal Labs 05/06/19 05/06/19 05/06/19 11:50 11:50 11:50 RBC 3.92 L Hgb 12.8 L Hct 37.3 L Plt Count Lymphocytes # APTT 20.1 L Potassium 3.2 L BUN 24 H Glucose Total Protein 6.2 L 05/07/19 05/07/19 06:22 06:22 RBC 3.84 L Hgb 12.6 L Hct 37.5 L Plt Count 140 L Lymphocytes # 0.4 L APTT Potassium BUN 23 H Glucose 138 H Total Protein - Diagnostic Findings Chest x-ray: report reviewed, image reviewed Assessment and Plan Assessment: Acute COPD exacerbation Acute on chronic bronchitis Tracheobronchitis Morbid obesity Sleep disorder breathing Chronic back pain Plan: Continue steroids breathing treatment continue home medications will follow clinical course closely again discussed with patient about per CPAP/BiPAP continued to decline We'll follow Time with Patient: Greater than 30
--- NOTE | 2019-05-07 12:37 | P.PN ---
Subjective Progress Note Date: 05/07/19 Principal diagnosis: Acute exacerbation COPD Acute on chronic bronchitis/tracheobronchitis 63-year-old male patient who was discharged from hospital 24 hours prior to this admission presented with complaint of shortness of breath and hypoxia and is admitted for acute exacerbation COPD and severe tracheobronchitis 05/07/2019 Patient is seen and evaluated in room at bedside; continues to complain of shortness of breath but feels like he might be slightly improved compared to yesterday; patient requesting IV pain medication; patient is currently on Pe rcocet 10 mg every 6 hours and gets pretty annoyed once he's told the plan to continue with oral pain medication Vital signs remained stable; afebrile, pulse 77, respiration 18, blood pressure of 171/84 and SpO2 of 94% on 2 L Laboratory review shows a white blood count of 6.5, hemoglobin of 12.6 and hematocrit of 37.5 with platelet count of 140; sodium of 138, potassium 3.8 with B UN/creatinine of 23/0.80 Patient remains on IV Solu-Medrol, DuoNeb nebulizer treatments and oral azithromycin; pulmonary is following and recommending to continue current treatment pulmonary recommends CPAP/BiPAP at discharge; patient continues to decline Objective - Vital Signs Vital signs: Vital Signs Temp 97.6 F 05/07/19 05:25 Pulse 72 05/07/19 07:50 Resp 18 05/07/19 09:11 BP 171/84 05/07/19 05:25 Pulse Ox 96 05/07/19 09:11 Intake & Output 05/06/19 05/07/19 05/07/19 18:59 06:59 18:59 Intake Total 590 Balance 590 Weight 95.254 kg Intake: Oral 590 Other: Voiding Method Toilet Toilet Toilet Urinal # Voids 2 - Exam GENERAL: The patient is alert and oriented x3, not in any acute distress. Well developed, well nourished. HEENT: Pupils are round and equally reacting to light. EOMI. No scleral icterus. No conjunctival pallor. Normocephalic, atraumatic. No pharyngeal erythema. No thyromegaly. CARDIOVASCULAR: S1 and S2 present. No murmurs, rubs, or gallops. PULMONARY: Markedly decreased breath sounds with expiratory wheezing. ABDOMEN: Soft, nontender, nondistended, normoactive bowel sounds. No palpable organomegaly. MUSCULOSKELETAL: No joint swelling or deformity. EXTREMITIES: No cyanosis, clubbing, or pedal edema. NEUROLOGICAL: Gross neurological examination did not reveal any focal deficits. SKIN: No rashes. - Labs CBC & Chem 7: 05/07/19 06:22 05/07/19 06:22 Labs: Abnormal Lab Results - Last 24 Hours (Table) 05/06/19 05/06/19 05/06/19 Range/Units 11:50 11:50 11:50 RBC 3.92 L (4.30-5.90) m/uL Hgb 12.8 L (13.0-17.5) gm/dL Hct 37.3 L (39.0-53.0) % Plt Count (150-450) k/uL Lymphocytes # (1.0-4.8) k/uL APTT 20.1 L (22.0-30.0) sec Potassium 3.2 L (3.5-5.1) mmol/L BUN 24 H (9-20) mg/dL Glucose (74-99) mg/dL Total Protein 6.2 L (6.3-8.2) g/dL 05/07/19 05/07/19 Range/Units 06:22 06:22 RBC 3.84 L (4.30-5.90) m/uL Hgb 12.6 L (13.0-17.5) gm/dL Hct 37.5 L (39.0-53.0) % Plt Count 140 L (150-450) k/uL Lymphocytes # 0.4 L (1.0-4.8) k/uL APTT (22.0-30.0) sec Potassium (3.5-5.1) mmol/L BUN 23 H (9-20) mg/dL Glucose 138 H (74-99) mg/dL Total Protein (6.3-8.2) g/dL Assessment and Plan Assessment: 1. Acute exacerbation COPD - Start patient on IV Solu-Medrol, DuoNeb nebulizer treatments and symptomatic treatment with antitussive therapy with O2 per nasal cannula keeping SpO2 greater than 90% - We will consult pulmonary service of further recommendations 2. Purulent tracheobronchitis; azithromycin 500 mg daily 3. Accelerated hypertension; restart on home antihypertensive therapy in form of hydralazine, amlodipine and metoprolol; we will use IV hydralazine if blood pressure remains elevated 4. Sleep apnea; patient uses CPAP at home 5. Obesity; counseling done on benefits of weight reduction DVT prophylaxis; SCDs/subcu heparin CODE STATUS; full code Time with Patient: Greater than 30
[2019-05-07] MEDS: FAMOTIDINE 20 MG/2 ML VIAL IV SCH (20:59)
[2019-05-07] MEDS: HEPARIN SODIUM,PORCINE 5,000 UNIT/ML 1 ML VIAL SQ SCH (20:59)
[2019-05-08] MEDS: ALPRAZolam 0.5 MG TAB PO PRN ×4 (00:21→23:21)
[2019-05-08] MEDS: methylPREDNISolone SOD SUCCI 40 MG/ML 1 ML VIAL IV SCH (00:21)
[2019-05-08] MEDS: oxyCODONE-APAP 10-325MG 1 EACH TAB PO PRN ×4 (03:33→19:46)
[2019-05-08] MEDS: IPRATROPIUM-ALBUTEROL 3 ML NEB INHALATION SCH ×6 (03:51→23:13)
--- NOTE | 2019-05-08 07:46 | P.PN ---
Subjective 63-year-old male with past history of COPD and degenerative disc disease who presents to the emergency room with reported shortness of breath. Review of the patient's record him and states that he was just discharged from the hospital yesterday. States that he was hospitalized for a COPD exacerbation. He is placed on steroids and antibiotics. He has been using his nebulizer and inhalers as directed. Reports that he felt well and wanted to go home yesterday however last night he had return of the diffuse wheezing. Reports that he has been taking his steroids as directed. He has had to chart picker his antibiotic from the pharmacy. He does see Dr. Granados the outpatient setting. He admits to chest pressure. Denies chest pain. No history of cardiac disease. No history of DVTs or PEs. He is not on any blood thinning medications. Denies any unilateral calf pain or swelling. Does admit to occasional pedal edema however has been improved at this time. Denies any fevers or chills. Does report a reductive cough which hasn't been improved with his antibiotics. No hemoptysis. No ripping or tearing sensation to his back. The patient reports a history of sleep apnea however cannot tolerate using CPAP machine. There are no other a lleviating, precipitating or modifying factors 05/08/2019 Patient remains dyspneic/tachypneic with no chest pain. He has cough with yellow phlegm and is apparently in respiratory distress. His breathing rate is 16 permanent and he is saturating 96% on 2 L. Labs show unstable WBC 6.5K, rest of CBC and BMP was unremarkable. Liver enzymes are not elevated. Patient currently on Zithromax and Solu-Medrol 40 mg. We are going to increase his symmetrical to 60 mg. Blood pressure is 161/87, and we will increase his hydralazine to 25 mg from twice a day to 3 times a day. Patient is currently on Zithromax. Chest x-ray from 05/06/2019 showing clear lung. Patient is asking for more pain medication, although no justification for patient is provided to the medical team. Review of systems CONSTITUTIONAL: No fever, no malaise, no fatigue. HEENT: No recent visual problems or hearing problems. Denied any sore throat. CARDIOVASCULAR: no palpitations, no syncope. PULMONARY: no hemoptysis. GASTROINTESTINAL: No diarrhea, no nausea, no vomiting, no abdominal pain. Normoactive bowel sounds. NEUROLOGICAL: No headaches, no weakness, no numbness. HEMATOLOGICAL: Denies any bleeding or petechiae. GENITOURINARY: Denies any burning micturition, frequency, or urgency. MUSCULOSKELETAL/RHEUMATOLOGICAL: Denies any joint pain, swelling, or any muscle pain. ENDOCRINE: Denies any polyuria or polydipsia. Active Medications Generic Name Dose Route Start Last Admin Trade Name Freq PRN Reason Stop Dose Admin Albuterol/Ipratropium 3 ml 05/06/19 16:00 05/08/19 03:51 Duoneb 0.5 Mg-3 Mg/3 Ml Soln INHALATION 3 ml RT-Q4H MAINE Administration Albuterol/Ipratropium 3 ml 05/06/19 19:54 Duoneb 0.5 Mg-3 Mg/3 Ml Soln INHALATION RT-QID PRN Shortness Of Breath Or Wheezing Alprazolam 0.5 mg 05/06/19 19:39 05/08/19 00:21 Xanax PO 0.5 mg QID PRN Administration Anxiety Amlodipine Besylate 5 mg 05/07/19 09:00 05/07/19 08:05 Norvasc PO 5 mg DAILY MAINE Administration Azithromycin 500 mg 05/06/19 14:00 05/07/19 08:04 Zithromax PO 05/09/19 09:01 500 mg DAILY MAINE Administration Bupropion HCl 150 mg 05/07/19 09:00 05/07/19 08:04 Wellbutrin Xl PO 150 mg DAILY MAINE Administration Famotidine 20 mg 05/07/19 21:00 05/07/19 20:59 Pepcid IV 20 mg Q12HR MAINE Administration Guaifenesin/Dextromethorphan 10 ml 05/06/19 19:39 05/07/19 16:14 Robitussin Dm PO 10 ml Q6H PRN Administration Cough Heparin Sodium (Porcine) 5,000 unit 05/07/19 21:00 05/07/19 20:59 Heparin SQ 5,000 unit Q12HR MAINE Administration Hydralazine HCl 25 mg 05/08/19 09:00 Apresoline PO TID [facility] Methylprednisolone Sodium Succinate 60 mg 05/08/19 12:00 Solu-Medrol IV Q6HR [facility] Metoprolol Tartrate 25 mg 05/07/19 09:00 05/07/19 08:05 Lopressor PO 25 mg DAILY MAINE Administration Montelukast Sodium 10 mg 05/07/19 09:00 05/07/19 08:05 Singulair PO 10 mg DAILY MAINE Administration Naloxone HCl 0.2 mg 05/06/19 13:48 Narcan IV Q2M PRN Opioid Reversal Oxycodone/Acetaminophen 1 each 05/06/19 13:54 05/08/19 03:33 Percocet 10-325 PO 1 each Q6HR PRN Administration Pain Sertraline HCl 100 mg 05/07/19 09:00 05/07/19 08:04 Zoloft PO 100 mg DAILY MAINE Administration Objective - Vital Signs Vital signs: Vital Signs Temp 98.0 F 05/08/19 05:13 Pulse 65 05/08/19 05:13 Resp 16 05/08/19 05:13 BP 161/87 05/08/19 05:13 Pulse Ox 96 05/08/19 05:13 Intake & Output 05/07/19 05/08/19 05/08/19 18:59 06:59 18:59 Intake Total 1510 590 Output Total 600 Balance 1510 -10 Intake: Oral 1510 590 Output: Urine 600 Other: Voiding Method Toilet Toilet Urinal Urinal # Voids 1 2 - Exam -GENERAL: The patient is alert and oriented x3, no acute respiratory distress. Well developed, well nourished. HEENT: Pupils are round and equally reacting to light. EOMI. No scleral icterus. No conjunctival pallor. Normocephalic, atraumatic. No pharyngeal erythema. No t hyromegaly. CARDIOVASCULAR: S1 and S2 present. No murmurs, rubs, or gallops. -PULMONARY: Chest is clear to auscultation, bilateral expiratory wheezing and prolonged expiration. ABDOMEN: Soft, nontender, nondistended, normoactive bowel sounds. No palpable organomegaly. MUSCULOSKELETAL: No joint swelling or deformity. EXTREMITIES: No cyanosis, clubbing, or pedal edema. NEUROLOGICAL: Gross neurological examination did not reveal any focal deficits. SKIN: No rashes. no petechiae. - Labs CBC & Chem 7: 05/07/19 06:22 05/07/19 06:22 Assessment and Plan Assessment: Acute COPD exacerbation Chronic atrial flutter Hypertension Sleep apnea on CPAP/BiPAP Primary osteoarthritis Plan: This is a pleasant 64 years old male who presents with COPD exacerbation. Continue with steroids, bronchodilators, inhalation steroids and oxygen as needed. Incentive spirometry . Decreased pain medication, patient's asks for more pain medication and he is currently on Percocet every 6 hours, risks including but not limited to respiratory, and cardiac depression and/or are explained for him and he agrees.continue with hydralazine and follow-up blood pressure Labs and medication were reviewed.. Continue same treatment. Continue with symptomatic treatment. Resume home medication. Monitor lytes and vitals. DVT and GI prophylaxis. Further recommendations of the clinical course of the patient DVT prophylaxis: Subcutaneous heparin GI Prophylaxis: Pepcid PT/OT: Pending Prognosis is guarded
[2019-05-08] MEDS: guaiFENesin-DM 100-10MG/5ML 10 ML CUP PO PRN (07:59)
[2019-05-08] MEDS: METOPROLOL TARTRATE 25 MG TAB PO SCH (07:59)
[2019-05-08] MEDS: FAMOTIDINE 20 MG/2 ML VIAL IV SCH (07:59)
[2019-05-08] MEDS: AZITHROMYCIN 500 MG TAB PO SCH (08:00)
[2019-05-08] MEDS: amLODIPine 5 MG TAB PO SCH (08:00)
[2019-05-08] MEDS: HEPARIN SODIUM,PORCINE 5,000 UNIT/ML 1 ML VIAL SQ SCH ×2 (08:00→21:17)
[2019-05-08] MEDS: MONTELUKAST 10 MG TAB PO SCH (08:00)
[2019-05-08] MEDS: methylPREDNISolone SOD SUCCI 125 MG/2 ML VIAL IV SCH ×4 (08:00→23:21)
[2019-05-08 08:01] LABS: African American GFR (CKD) >90 (>60 ml/min/1.73 sqM); Anion Gap 5 mmol/L; Blood Urea Nitrogen 25 mg/dL (9-20); Calcium 8.8 mg/dL (8.4-10.2); Carbon Dioxide 30 mmol/L (22-30); Chloride 102 mmol/L (98-107); Glucose 135 mg/dL (74-99); Non-African American GFR(CKD) 84 (>60 ml/min/1.73 sqM); Potassium 4.2 mmol/L (3.5-5.1); Sodium 137 mmol/L (137-145)
[2019-05-08] MEDS: hydrALAZINE HCL 25 MG TAB PO SCH ×3 (08:01→21:17)
[2019-05-08 08:02] LABS: Basophils % (A) 0 %; Eosinophils % (A) 0 %; HCT 38.5 % (39.0-53.0); HGB 12.9 gm/dL (13.0-17.5); Lymphocytes # (A) 0.5 k/uL (1.0-4.8); Lymphocytes % (A) 5 %; MCHC 33.6 g/dL (31.0-37.0); MCV 98.1 fL (80.0-100.0); Monocytes # (A) 0.4 k/uL (0-1.0); Monocytes % (A) 4 %; Neutrophils # (A) 8.4 k/uL (1.3-7.7); Neutrophils % (A) 89 %; Platelet Count 170 k/uL (150-450); RBC 3.92 m/uL (4.30-5.90); RDW 14.1 % (11.5-15.5); WBC 9.4 k/uL (3.8-10.6)
[2019-05-08] MEDS: buPROPion XL 150 MG TAB.ER.24H PO SCH (08:02)
[2019-05-08] MEDS: SERTRALINE 100 MG TAB PO SCH (08:02)
[2019-05-08] MEDS: SYMBICORT 160-4.5 MCG INHALER INHALATION SCH (19:19)
[2019-05-08] MEDS: FAMOTIDINE 20 MG TAB PO SCH (21:17)
[2019-05-09] MEDS: oxyCODONE-APAP 10-325MG 1 EACH TAB PO PRN ×5 (02:19→23:51)
[2019-05-09] MEDS: IPRATROPIUM-ALBUTEROL 3 ML NEB INHALATION SCH ×5 (03:17→19:28)
[2019-05-09] MEDS: ALPRAZolam 0.5 MG TAB PO PRN ×3 (05:45→18:57)
[2019-05-09] MEDS: methylPREDNISolone SOD SUCCI 125 MG/2 ML VIAL IV SCH ×4 (05:46→23:51)
[2019-05-09 07:26] LABS: Glucose,Whole Blood 133 mg/dL (75-99)
--- NOTE | 2019-05-09 07:45 | P.PN ---
Subjective 63-year-old male with past history of COPD and degenerative disc disease who presents to the emergency room with reported shortness of breath. Review of the patient's record him and states that he was just discharged from the hospital yesterday. States that he was hospitalized for a COPD exacerbation. He is placed on steroids and antibiotics. He has been using his nebulizer and inhalers as directed. Reports that he felt well and wanted to go home yesterday however last night he had return of the diffuse wheezing. Reports that he has been taking his steroids as directed. He has had to [employer] spot picker his antibiotic from the pharmacy. He does see Dr. Granados the outpatient setting. He admits to chest pressure. Denies chest pain. No history of cardiac disease. No history of DVTs or PEs. He is not on any blood thinning medications. Denies any unilateral calf pain or swelling. Does admit to occasional pedal edema however has been improved at this time. Denies any fevers or chills. Does report a reductive cough which hasn't been improved with his antibiotics. No hemoptysis. No ripping or tearing sensation to his back. The patient reports a history of sleep apnea however cannot tolerate using CPAP machine. There are no other a lleviating, precipitating or modifying factors 05/08/2019 Patient remains dyspneic/tachypneic with no chest pain. He has cough with yellow phlegm and is apparently in respiratory distress. His breathing rate is 16 permanent and he is saturating 96% on 2 L. Labs show unstable WBC 6.5K, rest of CBC and BMP was unremarkable. Liver enzymes are not elevated. Patient currently on Zithromax and Solu-Medrol 40 mg. We are going to increase his symmetrical to 60 mg. Blood pressure is 161/87, and we will increase his hydralazine to 25 mg from twice a day to 3 times a day. Patient is currently on Zithromax. Chest x-ray from 05/06/2019 showing clear lung. Patient is asking for more pain medication, although no justification for patient is provided to the medical team. 05/09/2019 Patient improvement however he still dyspneic/tachypneic with expiratory wheezing. Distal half, with some phlegm. On exam patient is still wheezing is saturating 93% on room air. Rest of labs are stable. Pending pulmonology team final recommendations. Objective - Vital Signs Vital signs: Vital Signs Temp 97.9 F 05/09/19 05:00 Pulse 69 05/09/19 05:00 Resp 18 05/09/19 05:00 BP 144/75 05/09/19 05:00 Pulse Ox 93 L 05/09/19 05:00 Intake & Output 05/08/19 05/09/19 05/09/19 18:59 06:59 18:59 Other: Voiding Method Toilet Urinal # Voids 3 3 - Exam -GENERAL: The patient is alert and oriented x3, no acute respiratory distress. Well developed, well nourished. HEENT: Pupils are round and equally reacting to light. EOMI. No scleral icterus. No conjunctival pallor. Normocephalic, atraumatic. No pharyngeal erythema. No thyromegaly. CARDIOVASCULAR: S1 and S2 present. No murmurs, rubs, or gallops. -PULMONARY: Chest is clear to auscultation, bilateral expiratory wheezing and prolonged expiration. ABDOMEN: Soft, nontender, nondistended, normoactive bowel sounds. No palpable organomegaly. MUSCULOSKELETAL: No joint swelling or deformity. EXTREMITIES: No cyanosis, clubbing, or pedal edema. NEUROLOGICAL: Gross neurological examination did not reveal any focal deficits. SKIN: No rashes. no petechiae. - Labs CBC & Chem 7: 05/08/19 07:07 05/08/19 07:07 Labs: Abnormal Lab Results - Last 24 Hours (Table) 05/08/19 05/08/19 05/09/19 Range/Units 07:07 07:07 07:24 RBC 3.92 L (4.30-5.90) m/uL Hgb 12.9 L (13.0-17.5) gm/dL Hct 38.5 L (39.0-53.0) % Neutrophils # 8.4 H (1.3-7.7) k/uL Lymphocytes # 0.5 L (1.0-4.8) k/uL BUN 25 H (9-20) mg/dL Glucose 135 H (74-99) mg/dL POC Glucose (mg/dL) 133 H (75-99) mg/dL Assessment and Plan Assessment: Acute COPD exacerbation Chronic atrial flutter Hypertension Sleep apnea on CPAP/BiPAP Primary osteoarthritis Plan: This is a pleasant 64 years old male who presents with COPD exacerbation. Continue with steroids, bronchodilators, inhalation steroids and oxygen as needed. Incentive spirometry . Decreased pain medication, patient's asks for more pain medication and he is currently on Percocet every 6 hours, risks including but not limited to respiratory, and cardiac depression and/or are explained for him and he agrees.continue with hydralazine and follow-up blood pressure Labs and medication were reviewed.. Continue same treatment. Continue with symptomatic treatment. Resume home medication. Monitor lytes and vitals. DVT and GI prophylaxis. Further recommendations of the clinical course of the patient DVT prophylaxis: Subcutaneous heparin GI Prophylaxis: Pepcid PT/OT: Pending Prognosis is guarded
[2019-05-09] MEDS: INSULIN ASPART (NovoLOG) 100 UNIT/ML VIAL SQ SCH ×4 (07:54→21:24)
[2019-05-09] MEDS: METOPROLOL TARTRATE 25 MG TAB PO SCH (07:55)
[2019-05-09] MEDS: MONTELUKAST 10 MG TAB PO SCH (07:55)
[2019-05-09] MEDS: hydrALAZINE HCL 25 MG TAB PO SCH ×3 (07:55→21:23)
[2019-05-09] MEDS: amLODIPine 5 MG TAB PO SCH (07:56)
[2019-05-09] MEDS: SERTRALINE 100 MG TAB PO SCH (07:56)
[2019-05-09] MEDS: AZITHROMYCIN 500 MG TAB PO SCH (07:56)
[2019-05-09] MEDS: HEPARIN SODIUM,PORCINE 5,000 UNIT/ML 1 ML VIAL SQ SCH ×2 (07:56→21:23)
[2019-05-09] MEDS: FAMOTIDINE 20 MG TAB PO SCH ×2 (07:56→21:23)
[2019-05-09] MEDS: buPROPion XL 150 MG TAB.ER.24H PO SCH (07:56)
[2019-05-09] MEDS: SYMBICORT 160-4.5 MCG INHALER INHALATION SCH ×2 (08:17→19:27)
[2019-05-09 09:00] LABS: African American GFR (CKD) >90 (>60 ml/min/1.73 sqM); Anion Gap 5 mmol/L; Blood Urea Nitrogen 31 mg/dL (9-20); Calcium 8.8 mg/dL (8.4-10.2); Carbon Dioxide 29 mmol/L (22-30); Chloride 103 mmol/L (98-107); Glucose 131 mg/dL (74-99); Non-African American GFR(CKD) 80 (>60 ml/min/1.73 sqM); Potassium 4.1 mmol/L (3.5-5.1); Sodium 137 mmol/L (137-145)
[2019-05-09 11:51] LABS: Glucose,Whole Blood 127 mg/dL (75-99)
--- NOTE | 2019-05-09 12:21 | P.PN ---
Subjective Progress Note Date: 05/09/19 Principal diagnosis: Acute COPD exacerbation Acute on chronic bronchitis Tracheobronchitis Morbid obesity Sleep disorder breathing Chronic back pain 05/09/2019, patient seen eval examined during the rounds labs reviewed medications reviewed care plan discussed with the patient at length his cuff congestion is slightly better wheezing however is still present to short of br eath on minimal activity and exertion labs reviewed medications reviewed oxygen saturation 93% 63-year-old male with history of severe COPD emphysema and sleep disorder breathing for which he is noncompliant he was just discharged from the hospital at the time of discharge was fairly stable in next 6-18 hours post discharge symptoms gradually got worse up to a point that wheezing and cough was un bearable came into the hospital for further evaluation and intervention and treatment Objective - Vital Signs Vital signs: Vital Signs Temp 98.1 F 05/09/19 12:00 Pulse 63 05/09/19 12:00 Resp 17 05/09/19 12:00 BP 126/74 05/09/19 12:00 Pulse Ox 95 05/09/19 12:00 Intake & Output 05/08/19 05/09/19 05/09/19 18:59 06:59 18:59 Intake Total 240 Balance 240 Intake: Oral 240 Other: Voiding Method Toilet Urinal # Voids 3 3 - Exam - Constitutional General appearance: average body habitus, cooperative, disheveled - EENT Eyes: EOMI, PERRLA, poor dentition Ears: bilateral: normal - Neck Carotids: bilateral: upstroke normal Thyroid: bilateral: normal size - Respiratory Respiratory: bilateral: diminished, wheezing, negative: dullness, rales, rhonchi - Cardiovascular Rhythm: regular Heart sounds: normal: S1, S2 - Gastrointestinal General gastrointestinal: normal bowel sounds - Neurologic Neurologic: CNII-XII intact - Musculoskeletal Musculoskeletal: gait normal, generalized weakness, strength equal bilaterally - Psychiatric Psychiatric: A&O x's 3, appropriate affect, intact judgment & insight - Labs CBC & Chem 7: 05/08/19 07:07 05/09/19 07:47 Labs: Abnormal Lab Results - Last 24 Hours (Table) 05/09/19 05/09/19 05/09/19 Range/Units 07:24 07:47 11:33 BUN 31 H (9-20) mg/dL Glucose 131 H (74-99) mg/dL POC Glucose (mg/dL) 133 H 127 H (75-99) mg/dL Assessment and Plan Assessment: Acute COPD exacerbation Acute on chronic bronchitis Tracheobronchitis Morbid obesity Sleep disorder breathing Chronic back pain Plan: Continue steroids breathing treatment continue home medications will follow clinical course closely again discussed with patient about per CPAP/BiPAP continued to decline We'll follow Time with Patient: Greater than 30
--- NOTE | 2019-05-09 17:00 | P.CONS ---
History of Present Illness - Chief Complaint Chronic back pain - History of Present Illness I had the opportunity to see patient for inpatient rehab consultation patient only chronic back pain. He was admitted to [facility] May 06 with cough and shortness of breath. Patient reports this been going on for several days and is causes increase in discomfort chest wall and back. No chest x-ray demonstrates only cardiomegaly. Seen by Dr. Granados for pulmonary. Seen by therapies. PT reports modified independent with transfers and gait 100 feet with roller walker. OT reports independent to modified independent all activity. I Noted patient is a chronic pain management from myself Percocet 10 4 times a day and has prescription for May 17. Review of Systems Review of systems: ENT: Denies sneezes or discharge. Eyes: Denies discharge or photophobia. Cardiac: Denies chest pain or palpitation. Pulmonary: States shortness of breath improved. Gastrointestinal: Denies nausea, emesis, constipation, diarrhea. Genitourinary: Denies discharge or frequency. Musculoskeletal: Chronic and worse in the back pain. Neurologic: Denies motor or sensory change. Endocrine: Denies shakes or sweats. Oncology: Denies cancers. Dermatologic: Denies rash, itching, pruritus. ALLERGY/immunology: Denies sneezes, rashes. Past Medical History Past Medical History: Atrial Flutter, Asthma, Chest Pain / Angina, COPD, GERD/Reflux, Hypertension, Osteoarthritis (OA), Pneumonia, Sleep Apnea/CPAP/BIPAP Additional Past Medical History / Comment(s): Back problems History of Any Multi-Drug Resistant Organisms: None Reported Past Surgical History: Adenoidectomy, Bowel Resection, Cholecystectomy Additional Past Surgical History / Comment(s): Nasal Past Anesthesia/Blood Transfusion Reactions: Previous Problems w/ Anesthesia, Motion Sickness Additional Past Anesthesia/Blood Transfusion Reaction / Comm: states "during procedure of checking something on my left lung,I turned blue and I was brought right back out anesthesia and proc was cancelled". clausterphobia Past Psychological History: Anxiety, Bipolar, Depression, Panic Disorder Smoking Status: Former smoker Past Alcohol Use History: Heavy, None Reported Past Drug Use History: Marijuana - Past Family History Mother Family Medical History: Asthma Additional Family Medical History / Comment(s): at age 62 Father Family Medical History: CVA/TIA Additional Family Medical History / Comment(s): at age 90 Medications and Allergies Home Medications Medication Instructions Recorded Confirmed Type Montelukast [Singulair] 10 mg PO DAILY 03/16/14 05/06/19 History Metoprolol Tartrate 25 mg PO DAILY 04/24/18 05/06/19 History Sertraline [Zoloft] 100 mg PO DAILY 11/04/18 05/06/19 History hydrALAZINE HCL [Apresoline] 25 mg PO BID 11/04/18 05/06/19 History amLODIPine [Norvasc] 5 mg PO DAILY 12/29/18 05/06/19 History buPROPion HCL [Wellbutrin XL] 150 mg PO DAILY 05/02/19 05/06/19 History predniSONE 10 mg PO DAILY 05/02/19 05/06/19 History Azithromycin [Zithromax] 500 mg PO DAILY #4 tab 05/05/19 05/06/19 Rx oxyCODONE-APAP 10-325MG [Percocet 1 tab PO Q6HR PRN 05/06/19 05/06/19 History 10-325 mg] Allergies Allergy/AdvReac Type Severity Reaction Status Date / Time peanut Allergy alg testing Verified 05/06/19 11:48 pollen extracts Allergy Unknown Verified 05/06/19 11:48 DUST Allergy alg testing Uncoded 05/06/19 11:48 Physical Exam Vitals: Vital Signs Temp Pulse Pulse Pulse Resp BP Pulse Ox 05/09/19 15:38 76 05/09/19 15:32 80 05/09/19 12:00 98.1 F 63 17 126/74 95 05/09/19 11:29 72 05/09/19 11:21 76 05/09/19 08:47 80 05/09/19 08:18 72 05/09/19 08:00 69 17 05/09/19 05:00 97.9 F 69 18 144/75 93 L 05/09/19 03:27 76 05/09/19 03:17 78 96 05/08/19 23:24 74 05/08/19 23:15 76 05/08/19 21:00 98 F 82 20 163/77 93 L 05/08/19 19:28 76 05/08/19 19:19 76 05/08/19 17:22 74 168/80 Intake and Output 05/09/19 05/09/19 05/09/19 06:59 14:59 22:59 Intake Total 720 Output Total 400 Balance 320 Intake: Oral 720 Output: Urine 400 Other: Voiding Method Toilet Toilet Urinal Urinal # Voids 3 2 Skin: Good color, texture, turgor. General: Overweight build and uncomfortable appearance. Head: Normocephalic, atraumatic. Eyes: Symmetric. Pupils equal round. Ears: Symmetric. Hearing within normal limits. Mouth: Clear. Neck: Supple. Carotid without bruit. Cardiac: Regular rate and rhythm. Lungs: Clear anteriorly and posteriorly. Abdomen: Soft active nontender. Overweight. Extremities: Normal tone. Neurological: Mental status: Alert, cooperative, pleasant. Cranial nerves: Symmetric facial tone and trapezius. Motor: Normal strength and isolation all 4 limbs. Sensation: Intact throughout. DTRs: Symmetric and equal throughout. Mobility: Did not attempt to sit or stand today. Results CBC & Chem 7: 05/08/19 07:07 05/09/19 07:47 Labs: Abnormal Lab Results - Last 24 Hours (Table) 05/09/19 05/09/19 05/09/19 Range/Units 07:24 07:47 11:33 BUN 31 H (9-20) mg/dL Glucose 131 H (74-99) mg/dL POC Glucose (mg/dL) 133 H 127 H (75-99) mg/dL Assessment and Plan (1) COPD exacerbation Current Visit: Yes Status: Acute Code(s): J44.1 - CHRONIC OBSTRUCTIVE PULMONARY DISEASE W (ACUTE) EXACERBATION SNOMED Code(s): 738814395 Plan: Impression: 1. Medical debility. 2. COPD exacerbation. 3. Chronic back pain. Comments and plan: PT and OT ongoing inpatient in fact independent anticipate return to home. Patient should return to my chronic pain management program and note that he already has prescription for May 17 and will not require any pain medication upon discharge.
[2019-05-09 17:03] LABS: Glucose,Whole Blood 159 mg/dL (75-99)
[2019-05-09 19:55] LABS: Glucose,Whole Blood 139 mg/dL (75-99)
[2019-05-10] MEDS: IPRATROPIUM-ALBUTEROL 3 ML NEB INHALATION SCH ×5 (00:04→15:31)
[2019-05-10] MEDS: guaiFENesin-DM 100-10MG/5ML 10 ML CUP PO PRN (02:51)
[2019-05-10] MEDS: oxyCODONE-APAP 10-325MG 1 EACH TAB PO PRN ×4 (04:06→16:55)
[2019-05-10] MEDS: methylPREDNISolone SOD SUCCI 125 MG/2 ML VIAL IV SCH ×3 (05:55→16:55)
[2019-05-10] MEDS: ALPRAZolam 0.5 MG TAB PO PRN ×3 (05:55→17:57)
[2019-05-10 07:07] LABS: Glucose,Whole Blood 137 mg/dL (75-99)
[2019-05-10 08:18] LABS: African American GFR (CKD) >90 (>60 ml/min/1.73 sqM); Anion Gap 7 mmol/L; Blood Urea Nitrogen 31 mg/dL (9-20); Calcium 8.6 mg/dL (8.4-10.2); Carbon Dioxide 27 mmol/L (22-30); Chloride 102 mmol/L (98-107); Glucose 126 mg/dL (74-99); Non-African American GFR(CKD) 80 (>60 ml/min/1.73 sqM); Potassium 4.1 mmol/L (3.5-5.1); Sodium 136 mmol/L (137-145)
[2019-05-10] MEDS: SYMBICORT 160-4.5 MCG INHALER INHALATION SCH (08:37)
[2019-05-10] MEDS: buPROPion XL 150 MG TAB.ER.24H PO SCH (08:47)
[2019-05-10] MEDS: INSULIN ASPART (NovoLOG) 100 UNIT/ML VIAL SQ SCH ×3 (08:47→16:55)
[2019-05-10] MEDS: SERTRALINE 100 MG TAB PO SCH (08:48)
[2019-05-10] MEDS: amLODIPine 5 MG TAB PO SCH (08:48)
[2019-05-10] MEDS: hydrALAZINE HCL 25 MG TAB PO SCH ×2 (08:48→16:54)
[2019-05-10] MEDS: FAMOTIDINE 20 MG TAB PO SCH (08:48)
[2019-05-10] MEDS: METOPROLOL TARTRATE 25 MG TAB PO SCH (08:48)
[2019-05-10] MEDS: HEPARIN SODIUM,PORCINE 5,000 UNIT/ML 1 ML VIAL SQ SCH (08:48)
[2019-05-10] MEDS: MONTELUKAST 10 MG TAB PO SCH (08:48)
[2019-05-10 11:09] LABS: Glucose,Whole Blood 170 mg/dL (75-99)
[2019-05-10 12:43] VITALS: BP 152/90; RESP 20; TEMP 98
[2019-05-10 15:43] VITALS: PULSE 80
[2019-05-10 16:50] LABS: Glucose,Whole Blood 134 mg/dL (75-99)
--- NOTE | 2019-05-16 08:55 | CDI ---
Documentation Clarification Form Date: 05/16/2019 8:34:41 AM From: Dominga Wen Phone: If you have a question about this query, please contact Mary Beth Mckinney International Marketing Coordinator at [phone] between 8am and 5pm. Admit Date: 05/08/2019 10:16:00 AM Patient Name: Milo Stack Visit Number: [id number] Discharge Date: 05/10/2019 6:00:00 PM ATTENTION: The Clinical Documentation Specialists (CDI) and [facility] Coding Staff appreciate your assistance in clarifying documentation. Please respond to the clarification below the line at the bottom and electronically sign. The CDI & [facility] Coding staff will review the response and follow-up if needed. Please note: Queries are made part of the Legal Health Record. If you have any questions, please contact the author of this message via ITS. Dr. René Antonio Accelerated hypertension is documented in 05/07 PN. BP readings 166/98, 171/94, 182/98, 177/99. Treatment: Restart on home antihypertensive therapy in form of hydralazine, amlodipine and metoprolol In your opinion, what is the most clinically appropriate diagnosis for this patient? Hypertensive crisis Hypertensive emergency Hypertensive urgency Other Unable to determine Other explanation of clinical findings Unable to determine (no explanation for clinical findings) Hypertensive urgency MTDD
--- NOTE | 2019-05-17 18:57 | P.DS ---
Providers Date of admission: 05/08/19 10:16 Attending physician: René Antonio MD Consults: 05/06/19 13:50 Consult Physician Urgent Consulting Provider: Nehemiah Granados Consult Reason/Comments: AECOPD Do you want consulting provider notified?: Yes 05/09/19 12:41 Consult Physician Routine Consulting Provider: George Trammell Consult Reason/Comments: Inpatient rehab Do you want consulting provider notified?: Yes Primary care physician: Deborah Marie Alyssa [facility] Course: Diagnoses: Acute COPD exacerbation drug seeking behavior non adherent to therapy Hypertension Sleep apnea on CPAP/BiPAP, however patient refusing CPAP Primary osteoarthritis History of Chronic atrial flutter, currently on sinus rhythm Hospital course: 63-year-old male with past history of COPD and degenerative disc disease who presents to the emergency room with reported shortness of breath. Review of the patient's record him and states that he was just discharged from the hospital a few days ago. States that he was hospitalized for a COPD exacerbation. He is placed on steroids and antibiotics. He has been using his nebulizer and inhalers as directed. Patient has been evaluated by bee producer, he was treated with parenteral steroids, bronchodilators, oxygen when needed, and short course of antibiotics, inhaled steroids. Patient showed interval improvement and on the day of discharge patient denies chest pain, dyspnea improving, coughing is improving, his skin color is improving as well. No abdominal pain, no nausea vomiting, no change in urine or bowel habits. Patient is already on Percocet 10-325 every 6 hours at home and he follow-ups with Dr. Trammell patient was persistently asking for more pain medication, and medical staff he was shouting and cursing the staff and nurses. consult was placed for Dr. Trammell recommended to increase his Percocet to take every 4 hours, and upon discharge he can go back to his usual regimen of every 6 hours. Patient does not look in distress due to pain. CPAP/BiPAP was recommended for him at night by bee producer, however patient keep declining. Risks and benefits are explained Patient remains hemodynamically stable and he is saturating 95% on room air for more than 24 hours, and on exertion his oxygen saturation remains more than 90% Patient was cleared for discharge by pulmonary team Problems and management plan were discussed with the patient and he verbalized understanding and acceptance Patient was found stable and can be discharged home however he needs follow-up as an outpatient. Patient was instructed to follow up with PCP and bee producer within one week and patient agrees Gen: patient is a AAOx3, no distress CVS: S1-S2, RRR, no murmur Lungs: B/L CTA, few scattered bilateral wheezing Abdomen: soft, no distention, no tenderness, positive bowel sounds Extremity: no leg edema or induration Time spent more than 35 minutes Patient Condition at Discharge: Stable Plan - Discharge Summary New Discharge Prescriptions: New Famotidine [Pepcid] 20 mg PO Q12HR #60 tab guaiFENesin-DM 100-10MG/5ML [Robitussin DM] 10 ml PO Q6H PRN #1 bottle PRN Reason: Cough Budesonide-Formot 160-4.5 Mcg [Symbicort 160-4.5 Mcg Inhaler] 2 puff INHALATION RT-BID #1 inh Albuterol Inhaler [Ventolin Hfa Inhaler] 1 - 2 puff INHALATION RT-Q6H PRN #1 inhaler PRN Reason: Shortness Of Breath Or Wheezing Continue Montelukast [Singulair] 10 mg PO DAILY Sertraline [Zoloft] 100 mg PO DAILY buPROPion HCL [Wellbutrin XL] 150 mg PO DAILY oxyCODONE-APAP 10-325MG [Percocet 10-325 mg] 1 tab PO QID Discontinued hydrALAZINE HCL [Apresoline] 25 mg PO BID predniSONE 10 mg PO DAILY Azithromycin [Zithromax] 500 mg PO DAILY #4 tab No Action Ipratropium-Albuterol Nebulize [Duoneb 0.5 mg-3 mg/3 ml Soln] 3 ml INHALATION RT-QID #60 ampul.neb predniSONE See Taper PO DIRECTED #30 tab Azithromycin [Zithromax] 500 mg PO DAILY #2 tab Losartan/Hydrochlorothiazide [Losartan-Hctz 50-12.5 mg Tab] 1 tab PO DAILY #30 tab amLODIPine [Norvasc] 10 mg PO DAILY #30 tablet Discharge Medication List Montelukast [Singulair] 10 mg PO DAILY 03/16/14 [History] Sertraline [Zoloft] 100 mg PO DAILY 11/04/18 [History] buPROPion HCL [Wellbutrin XL] 150 mg PO DAILY 05/02/19 [History] oxyCODONE-APAP 10-325MG [Percocet 10-325 mg] 1 tab PO QID 05/06/19 [History] Albuterol Inhaler [Ventolin Hfa Inhaler] 1 - 2 puff INHALATION RT-Q6H PRN #1 inhaler 05/10/19 [Rx] Budesonide-Formot 160-4.5 Mcg [Symbicort 160-4.5 Mcg Inhaler] 2 puff INHALATION RT-BID #1 inh 05/10/19 [Rx] Famotidine [Pepcid] 20 mg PO Q12HR #60 tab 05/10/19 [Rx] guaiFENesin-DM 100-10MG/5ML [Robitussin DM] 10 ml PO Q6H PRN #1 bottle 05/10/19 [Rx] Azithromycin [Zithromax] 500 mg PO DAILY #2 tab 05/16/19 [Rx] Ipratropium-Albuterol Nebulize [Duoneb 0.5 mg-3 mg/3 ml Soln] 3 ml INHALATION RT-QID #60 ampul.neb 05/16/19 [Rx] Losartan/Hydrochlorothiazide [Losartan-Hctz 50-12.5 mg Tab] 1 tab PO DAILY #30 tab 05/16/19 [Rx] amLODIPine [Norvasc] 10 mg PO DAILY #30 tablet 05/16/19 [Rx] predniSONE See Taper PO DIRECTED #30 tab 05/16/19 [Rx] Follow up Appointment(s)/Referral(s): Deborah Shah III, MD [Primary Care Provider] - 05/17/19 1:30 pm George Trammell MD [STAFF PHYSICIAN] - 2 Weeks ( office is closed.patient will have to call and schedule own appt.) Nehemiah Granados MD [STAFF PHYSICIAN] - 1 Week ('s office is closed on wednesdays.patient will have to call and schedule own appt) Patient Instructions/Handouts: Famotidine (By mouth), Albuterol (By breathing), Prednisone (By mouth), Hydralazine (By mouth), Budesonide/Formoterol (By b reathing), COPD (Chronic Obstructive Pulmonary Disease) (DC) Activity/Diet/Wound Care/Special Instructions: Activity as tolerated Diet as tolerated Discharge Disposition: HOME SELF-CARE
== END 2019-05-10 18:00 | disposition home or self-care (01) | DRG 191 ==
LOC: EC 11:28 → 3NMEDONC 13:55 → OBSVTOIN 05-08 10:16
PROVIDERS: ADMIT Internal Medicine; ATTEND Internal Medicine
DX: J44.1 Chronic obstructive pulmonary disease with (acute) exacerbation (principal); I48.92 Unspecified atrial flutter; J44.0 Chronic obstructive pulmonary disease with (acute) lower respiratory infection; J20.9 Acute bronchitis, unspecified; E66.01 Morbid (severe) obesity due to excess calories; F31.9 Bipolar disorder, unspecified; Z71.3 Dietary counseling and surveillance; Z68.30 Body mass index [BMI] 30.0-30.9, adult; F41.0 Panic disorder [episodic paroxysmal anxiety]; G47.33 Obstructive sleep apnea (adult) (pediatric); G89.29 Other chronic pain; I16.0 Hypertensive urgency; K21.9 Gastro-esophageal reflux disease without esophagitis; M19.91 Primary osteoarthritis, unspecified site; R09.02 Hypoxemia; Z79.899 Other long term (current) drug therapy; Z82.5 Family history of asthma and other chronic lower respiratory diseases; Z87.891 Personal history of nicotine dependence; F40.240 Claustrophobia; Z87.01 Personal history of pneumonia (recurrent); M54.9 Dorsalgia, unspecified; Z91.010 Allergy to peanuts; Z90.49 Acquired absence of other specified parts of digestive tract; Z82.3 Family history of stroke; Z79.2 Long term (current) use of antibiotics; Z79.52 Long term (current) use of systemic steroids; Z91.19 Patient's noncompliance with other medical treatment and regimen; Z76.5 Malingerer [conscious simulation]; I11.9 Hypertensive heart disease without heart failure
CPT/HCPCS: 36415; 71046; 80048; 80053; 85025; 85610; 85730; 93005; 94640; 94760; 96365; 96366; 96375; 99285

== ENCOUNTER 2019-05-13 01:37 | Inpatient (IN) | payer MEDICARE ==
[2019-05-13] MEDS ORDERED: methylPREDNISolone SOD SUCCI 125 MG/2 ML VIAL IV STA (01:56)
[2019-05-13] MEDS ORDERED: HYDROmorphone 2 MG/ML 1 ML SYRINGE IVP STA (01:57)
[2019-05-13 02:14] LABS: Basophils # (A) 0.3 k/uL (0-0.2); Basophils % (A) 2 %; Eosinophils % (A) 0 %; HCT 38.9 % (39.0-53.0); HGB 12.9 gm/dL (13.0-17.5); Lymphocytes # (A) 0.7 k/uL (1.0-4.8); Lymphocytes % (A) 4 %; MCH 32.7 pg (25.0-35.0); MCHC 33.2 g/dL (31.0-37.0); MCV 98.6 fL (80.0-100.0); Mean Platelet Volume 6.1; Monocytes # (A) 1.1 k/uL (0-1.0); Monocytes % (A) 6 %; Neutrophils # (A) 14.9 k/uL (1.3-7.7); Neutrophils % (A) 87 %; Platelet Count 195 k/uL (150-450); RBC 3.95 m/uL (4.30-5.90); RDW 14.5 % (11.5-15.5)
[2019-05-13 02:22] LABS: Albumin 3.2 g/dL (3.5-5.0); Calcium 8.7 mg/dL (8.4-10.2); Magnesium 2.6 mg/dL (1.6-2.3); Potassium 4.1 mmol/L (3.5-5.1); Total Bilirubin 0.4 mg/dL (0.2-1.3); Total Protein 5.2 g/dL (6.3-8.2)
[2019-05-13 02:30] LABS: INR 0.9 (<1.2); Prothrombin Time 10.2 sec (9.0-12.0)
--- NOTE | 2019-05-13 02:33 | XR ---
EXAMINATION TYPE: XR chest 2V DATE OF EXAM: 05/13/2019 COMPARISON: 05/06/2019 HISTORY: Difficulty breathing TECHNIQUE: Frontal and lateral views of the chest are obtained. FINDINGS: Heart and mediastinum are normal. Lungs are clear of infiltrate. There is no pleural effus ion. There are chest leads. Costophrenic angles are clear. IMPRESSION: No active cardiopulmonary disease. Normal heart. No change.
[2019-05-13 02:36] LABS: Partial Thromboplastin Time 19.1 sec (22.0-30.0)
--- NOTE | 2019-05-13 03:06 | ED ---
SOB HPI - General Chief Complaint: Shortness of Breath Stated Complaint: SOB Time Seen by Provider: 05/13/19 01:46 Source: patient Mode of arrival: ambulatory Limitations: no limitations - History of Present Illness Initial Comments: 63-year-old male patient presents to the emergency department today for evaluation of shortness of breath, cough, and wheezing. Patient has history of COPD and chronic hypoxic respiratory failure. He does not wear oxygen at home. Patient states the last 2 days his breathing has been getting worse. States he did 6-8 breathing treatments at home today he has been unable to get his symptoms under control. States he is taking prednisone. States he is having chest pain and tightness with this. Denies any nausea or vomiting. Denies sweats. Does report brownish sputum production. Denies hemoptysis. States he is having some lower extremity edema. Patient denies any recent rash, abdominal pain, diarrhea, constipation, back pain, numbness, tingling, dizziness, weakness, hematuria, dysuria, urinary urgency, urinary frequency, headache, visual changes, or any other complaints. - Related Data Home Medications Medication Instructions Recorded Confirmed Montelukast [Singulair] 10 mg PO DAILY 03/16/14 05/06/19 Metoprolol Tartrate 25 mg PO DAILY 04/24/18 05/06/19 Sertraline [Zoloft] 100 mg PO DAILY 11/04/18 05/06/19 amLODIPine [Norvasc] 5 mg PO DAILY 12/29/18 05/06/19 buPROPion HCL [Wellbutrin XL] 150 mg PO DAILY 05/02/19 05/06/19 oxyCODONE-APAP 10-325MG [Percocet 1 tab PO Q6HR PRN 05/06/19 05/06/19 10-325 mg] Previous Rx's Medication Instructions Recorded Albuterol Inhaler [Ventolin Hfa 1 - 2 puff INHALATION RT-Q6H PRN 05/10/19 Inhaler] #1 inhaler Budesonide-Formot 160-4.5 Mcg 2 puff INHALATION RT-BID #1 inh 05/10/19 [Symbicort 160-4.5 Mcg Inhaler] Famotidine [Pepcid] 20 mg PO Q12HR #60 tab 05/10/19 guaiFENesin-DM 100-10MG/5ML 10 ml PO Q6H PRN #1 bottle 05/10/19 [Robitussin DM] hydrALAZINE HCL [Apresoline] 25 mg PO TID #90 tab 05/10/19 predniSONE 0 mg PO DIRECTED #40 tab 05/10/19 Allergies Allergy/AdvReac Type Severity Reaction Status Date / Time peanut Allergy alg testing Verified 05/13/19 01:42 pollen extracts Allergy Unknown Verified 05/13/19 01:42 DUST Allergy alg testing Uncoded 05/13/19 01:42 Review of Systems ROS Statement: Those systems with pertinent positive or pertinent negative responses have been documented in the HPI. ROS Other: All systems not noted in ROS Statement are negative. Past Medical History Past Medical History: Atrial Flutter, Asthma, Chest Pain / Angina, COPD, GERD/Reflux, Hypertension, Osteoarthritis (OA), Pneumonia, Sleep Apnea/CPAP/BIPAP Additional Past Medical History / Comment(s): Back problems History of Any Multi-Drug Resistant Organisms: None Reported Past Surgical History: Adenoidectomy, Bowel Resection, Cholecystectomy Additional Past Surgical History / Comment(s): Nasal Past Anesthesia/Blood Transfusion Reactions: Previous Problems w/ Anesthesia, Motion Sickness Additional Past Anesthesia/Blood Transfusion Reaction / Comment(s): states "during procedure of checking something on my left lung,I turned blue and I was brought right back out anesthesia and proc was cancelled". clausterphobia Past Psychological History: Anxiety, Bipolar, Depression, Panic Disorder Smoking Status: Former smoker Past Alcohol Use History: Heavy Past Drug Use History: Marijuana - Past Family History Mother Family Medical History: Asthma Additional Family Medical History / Comment(s): at age 62 Father Family Medical History: CVA/TIA Additional Family Medical History / Comment(s): at age 90 General Exam Limitations: no limitations General appearance: alert, in no apparent distress, other (Physical well- developed, well-nourished adult male patient in mild respiratory distress. Vital signs upon presentation are temperature 98.0F, pulse 78, respirations 28, blood pressure 170/91, pulse ox 94% on room air.) ENT exam: Present: normal exam, normal oropharynx, mucous membranes moist Neck exam: Present: normal inspection. Absent: tenderness, meningismus, lymphadenopathy Respiratory exam: Present: respiratory distress (Mild), wheezes (Coarse inspiratory and expiratory wheezing in all lung pedroza), accessory muscle use (Abdominal), other (Tachypnea). Absent: normal lung sounds bilaterally, rales, rhonchi, stridor Cardiovascular Exam: Present: normal rhythm, tachycardia, normal heart sounds. Absent: systolic murmur, diastolic murmur, rubs, gallop, clicks GI/Abdominal exam: Present: soft, normal bowel sounds. Absent: distended, tenderness, guarding, rebound, rigid Neurological exam: Present: alert, oriented X3, CN II-XII intact Psychiatric exam: Present: normal affect, normal mood Skin exam: Present: warm, dry, intact, normal color. Absent: rash Course Vital Signs 05/13/19 05/13/19 05/13/19 01:40 02:21 03:27 Temperature 98 F Pulse Rate 78 65 Respiratory 28 H 28 H 18 Rate Blood Pressure 170/91 114/84 O2 Sat by Pulse 94 L 95 Oximetry 05/13/19 03:38 Temperature Pulse Rate 78 Respiratory Rate Blood Pressure O2 Sat by Pulse Oximetry Medical Decision Making - Medical Decision Making 63-year-old male patient presented to the emergency department today for evalu ation of shortness of breath, cough, sputum production. Physical examination did reveal coarse inspiratory and expiratory wheezing in the posterior lung pedroza. Oxygen saturation on 95% on room air. X-ray showed no acute abnormalities. Patient does exhibit leukocytosis with a white blood cell count at 17, he has been taking prednisone at home. We did give a double albuterol treatment here in the emergency department as well as IV steroids. Patient does report mild improvement of symptoms this does not feel well enough to be discharged home. He'll be admitted for observation. Pulmonology has been consulted. Breathing treatments and steroids have been ordered. - Lab Data Result diagrams: 05/13/19 02:06 05/13/19 02:06 Lab Results 05/13/19 05/13/19 05/13/19 Range/Units 02:06 02:06 02:06 WBC 17.0 H (3.8-10.6) k/uL RBC 3.95 L (4.30-5.90) m/uL Hgb 12.9 L (13.0-17.5) gm/dL Hct 38.9 L (39.0-53.0) % MCV 98.6 (80.0-100.0) fL MCH 32.7 (25.0-35.0) pg MCHC 33.2 (31.0-37.0) g/dL RDW 14.5 (11.5-15.5) % Plt Count 195 (150-450) k/uL Neutrophils % 87 % Lymphocytes % 4 % Monocytes % 6 % Eosinophils % 0 % Basophils % 2 % Neutrophils # 14.9 H (1.3-7.7) k/uL Lymphocytes # 0.7 L (1.0-4.8) k/uL Monocytes # 1.1 H (0-1.0) k/uL Eosinophils # 0.0 (0-0.7) k/uL Basophils # 0.3 H (0-0.2) k/uL PT 10.2 (9.0-12.0) sec INR 0.9 (<1.2) APTT 19.1 L (22.0-30.0) sec Sodium 140 (137-145) mmol/L Potassium 4.1 (3.5-5.1) mmol/L Chloride 108 H (98-107) mmol/L Carbon Dioxide 23 (22-30) mmol/L Anion Gap 9 mmol/L BUN 34 H (9-20) mg/dL Creatinine 1.18 (0.66-1.25) mg/dL Est GFR (CKD-EPI)AfAm 76 (>60 ml/min/1.73 sqM) Est GFR (CKD-EPI)NonAf 66 (>60 ml/min/1.73 sqM) Glucose 132 H (74-99) mg/dL Calcium 8.7 (8.4-10.2) mg/dL Magnesium 2.6 H (1.6-2.3) mg/dL Total Bilirubin 0.4 (0.2-1.3) mg/dL AST 25 (17-59) U/L ALT 47 (21-72) U/L Alkaline Phosphatase 99 (38-126) U/L Troponin I (0.000-0.034) ng/mL Total Protein 5.2 L (6.3-8.2) g/dL Albumin 3.2 L (3.5-5.0) g/dL 05/13/19 Range/Units 02:06 WBC (3.8-10.6) k/uL RBC (4.30-5.90) m/uL Hgb (13.0-17.5) gm/dL Hct (39.0-53.0) % MCV (80.0-100.0) fL MCH (25.0-35.0) pg MCHC (31.0-37.0) g/dL RDW (11.5-15.5) % Plt Count (150-450) k/uL Neutrophils % % Lymphocytes % % Monocytes % % Eosinophils % % Basophils % % Neutrophils # (1.3-7.7) k/uL Lymphocytes # (1.0-4.8) k/uL Monocytes # (0-1.0) k/uL Eosinophils # (0-0.7) k/uL Basophils # (0-0.2) k/uL PT (9.0-12.0) sec INR (<1.2) APTT (22.0-30.0) sec Sodium (137-145) mmol/L Potassium (3.5-5.1) mmol/L Chloride (98-107) mmol/L Carbon Dioxide (22-30) mmol/L Anion Gap mmol/L BUN (9-20) mg/dL Creatinine (0.66-1.25) mg/dL Est GFR (CKD-EPI)AfAm (>60 ml/min/1.73 sqM) Est GFR (CKD-EPI)NonAf (>60 ml/min/1.73 sqM) Glucose (74-99) mg/dL Calcium (8.4-10.2) mg/dL Magnesium (1.6-2.3) mg/dL Total Bilirubin (0.2-1.3) mg/dL AST (17-59) U/L ALT (21-72) U/L Alkaline Phosphatase (38-126) U/L Troponin I 0.022 (0.000-0.034) ng/mL Total Protein (6.3-8.2) g/dL Albumin (3.5-5.0) g/dL - EKG Data -: EKG Interpreted by Me EKG Comments: EKG obtained at 0206 shows normal sinus rhythm with a right bundle branch block. Ventricular rate is 75, MT interval 130, QRS duration 130, QTC 418, QTC 466. No evidence of ST elevation or depression. - Radiology Data Radiology results: report reviewed, image reviewed Two-view x-ray of the chest is obtained. Report is reviewed in its entirety. Impression by Dr. Howard shows no active cardiopulmonary disease. Normal hea rt. No change. Disposition Clinical Impression: COPD exacerbation Disposition: ADMITTED IP TO THIS HOSP Condition: Serious Referrals: Deborah Shah III, MD [Primary Care Provider] - 1-2 days Decision to Admit Reason: Admit from EC Decision Date: 05/13/19 Decision Time: 04:26
[2019-05-13] MEDS ORDERED: ALBUTEROL NEBULIZED (CONC) 5 MG, SODIUM CHLORIDE 0.9% NEBULIZ 3 ML INHALATION STA ×2 (03:17)
[2019-05-13] MEDS ORDERED: IPRATROPIUM 0.5 MG/2.5 ML NEBU INHALATION STA (03:17)
[2019-05-13] MEDS ORDERED: ALBUTEROL NEBULIZED 2.5 MG/3 ML INHALATION STA (03:23)
[2019-05-13] MEDS ORDERED: oxyCODONE-APAP 7.5-325MG 1 EACH TAB PO STA (03:45)
[2019-05-13] MEDS ORDERED: NALOXONE 0.4 MG/ML 1 ML VIAL IV PRN (04:23)
[2019-05-13 05:34] VITALS: BMI 30.8
[2019-05-13] MEDS: methylPREDNISolone SOD SUCCI 125 MG/2 ML VIAL IV SCH ×3 (06:00→17:01)
[2019-05-13 07:00] LABS: Glucose,Whole Blood 153 mg/dL (75-99)
[2019-05-13] MEDS: IPRATROPIUM-ALBUTEROL 3 ML NEB INHALATION SCH ×4 (08:12→19:19)
[2019-05-13] MEDS: oxyCODONE-APAP 10-325MG 1 EACH TAB PO PRN ×3 (08:40→21:13)
[2019-05-13] MEDS: buPROPion XL 150 MG TAB.ER.24H PO SCH (11:12)
[2019-05-13] MEDS: amLODIPine 5 MG TAB PO SCH (11:12)
[2019-05-13] MEDS: MONTELUKAST 10 MG TAB PO SCH (11:12)
[2019-05-13] MEDS: METOPROLOL TARTRATE 25 MG TAB PO SCH (11:12)
[2019-05-13] MEDS: FAMOTIDINE 20 MG TAB PO SCH ×2 (11:12→21:05)
[2019-05-13] MEDS: HYDROmorphone 0.5 MG/0.5 ML SYRINGE IVP PRN ×3 (11:13→23:21)
[2019-05-13] MEDS: AZITHROMYCIN 500 MG TAB PO SCH (11:30)
[2019-05-13 11:43] LABS: Glucose,Whole Blood 150 mg/dL (75-99)
--- NOTE | 2019-05-13 12:49 | CONS ---
CONSULTATION Milo Stack is a 63-year-old male who presents to the ER with a 3 day history of increasing shortness of breath. He was seen by his weed control inspector about a week ago and had been on prednisone as high as 40 mg. He failed to improve and began to worsen. He also has chest tightness and was subsequently admitted for further evaluation. Going through his records, it does look like on February 07, 2019 he had an eosinophil count that was extremely high at 2.2 1000. He has steroid dependent asthma with chronic obstructive pulmonary disease. PAST MEDICAL HISTORY: Positive for severe asthma, COPD, chronic pain, obstructive sleep apnea for which he is on CPAP, previous uvulectomy, history of bowel resection for large polyps, history of bronchoscopy with previous lung biopsy. FAMILY HISTORY: Positive for asthma in his mother, CVA and TIA in his father. SOCIAL HISTORY: Patient has a history of heavy smoking in the past. MEDICATIONS: Prior to admission were prednisone at 40 mg a day. Oxycodone with acetaminophen. Apresoline, guaifenesin with dextromethorphan, Wellbutrin XL, Norvasc, Zoloft, Singulair, metoprolol tartrate, Pepcid, Symbicort, and albuterol inhaler. REVIEW OF SYSTEMS: Noncontributory. PHYSICAL EXAMINATION: His blood pressure is 166/74, respiratory rate of 24, pulse rate of 70, temperature 98.3. When he came to the ER, his respiratory rate had been 28. HEENT reveals pupils equal, evidence of previous uvulectomy. There is a short, thick neck. Chest reveals decreased breath sounds, prolonged exhalation with expiratory wheeze. Cardiovascular system is S1, S2. ABDOMEN: Soft. There is trace to 1+ pedal edema. Chest decreased breath sounds with prolonged exhalation and expiratory wheeze. Cardiovascular system with an S1, S2. Abdomen is soft. There is 1+ pedal edema. ALLERGIES: HE IS ALLERGIC TO PEANUT POLLEN EXTRACTS AND DUST. X-RAY: Chest x-ray showed no active pulmonary disease. IMPRESSION: At this time: 1. 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 2. Allergic etiology to his asthma. 3. Severe chronic obstructive pulmonary disease. 4. Obstructive sleep apnea. 5. Chronic pain syndrome. [place]S: [place] [address], hemoglobin of 12.9. There are 91% neutrophils. He has no eosinophils today, but his basophils are elevated at 0.3 1000. The decrease in the eosinophils may in part be due to the fact that he is recently on steroids. On February 07, 2019, his eosinophil count was 2.2 1000. Sodium is 140, potassium 4.1, chloride 108, bicarb 23, BUN 34, creatinine 1.18. At this point in time from a pulmonary standpoint, keep the patient on IV and aerosolized steroids with bronchodilators. Would keep him on montelukast. GI and DVT prophylaxis. His prognosis at this time is guarded. He was counseled regarding his condition and may benefit from an outpatient biologic for his asthma, and frequent exacerbations given that he is somewhat steroid dependent as well. MMODL / IJN: [id number] /
[2019-05-13] MEDS: HEPARIN SODIUM,PORCINE 5,000 UNIT/ML 1 ML VIAL SQ SCH (15:05)
[2019-05-13 16:58] LABS: Glucose,Whole Blood 158 mg/dL (75-99)
[2019-05-13] MEDS: BUDESONIDE 0.5 MG/2 ML NEBU INHALATION SCH (19:19)
[2019-05-13] MEDS ORDERED: SYMBICORT 160-4.5 MCG INHALER INHALATION SCH (20:00)
[2019-05-13 20:29] LABS: Glucose,Whole Blood 127 mg/dL (75-99)
--- NOTE | 2019-05-13 21:37 | P.HPIM ---
History of Present Illness H&P Date: 05/13/19 Chief Complaint: Shortness of breath Patient is 63-year-old male with a known history of COPD, eosinophilic asthma, chronic pain and hypertension and obstructive sleep apnea with multiple admissions previously came to ER with complaints of shortness of breath cough and wheezing. Patient says that he has been having worsening shortness of breath for the past 2-3 days. Patient was seen by pulmonary about a week ago. Patient was recently admitted to the hospital during the first week of May with similar complaints. Patient is also complaining of cough with yellowish thick sputum production. Denied any hemoptysis. Patient is taking oral prednisone at home, tapering course. Denied any complaints of fever or chills. No nausea vomiting or abdominal pain. No diarrhea or dysuria. No headache or dizziness or lightheadedness. No complaints of chest pain. Chest x-ray showed no acute cardio pulmonary process. Normal heart. EKG showed normal sinus rhythm. Laboratory data showed WBC 17.0 which is most likely from the steroid use. Patient is requesting IV Dilaudid. Review of Systems Constitutional: Patient denies any fever or chills . No generalized weakness or weight loss. Abdomen: Patient denied nausea vomiting and diarrhea and abdominal pain. Cardiovascular: Patient denies any chest pain or short of breath no palpitations. Respiratory: He does have cough with sputum production and shortness of breath. Neurologic: Patient denied any numbness or tingling headache. Musculoskeletal: Patient denies any complaints of joint swelling or deformity. Skin: Negative Psychiatric: Negative Endocrine: No heat or cold intolerance. No recent weight gain. Genitourinary: No dysuria or hematuria. All other 14 point ROS negative except the above Past Medical History Past Medical History: Atrial Flutter, Asthma, Chest Pain / Angina, COPD, GERD/Reflux, Hypertension, Osteoarthritis (OA), Pneumonia, Sleep Apnea/CPAP/BIPAP Additional Past Medical History / Comment(s): Back problems History of Any Multi-Drug Resistant Organisms: None Reported Past Surgical History: Adenoidectomy, Bowel Resection, Cholecystectomy Additional Past Surgical History / Comment(s): Nasal Past Anesthesia/Blood Transfusion Reactions: Previous Problems w/ Anesthesia, Motion Sickness Additional Past Anesthesia/Blood Transfusion Reaction / Comment(s): states "during procedure of checking something on my left lung,I turned blue and I was brought right back out anesthesia and proc was cancelled". chidiobia Past Psychological History: Anxiety, Bipolar, Depression, Panic Disorder Additional Psychological History / Comment(s): Single and lives independently. 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 No animal exposures. He has stopped smoking. He has a history of heavy alcohol use but that's been many years. Denies recreational drug use Smoking Status: Former smoker Past Alcohol Use History: Heavy Additional Past Alcohol Use History / Comment(s): Started smoking age 19(1974) smoked 1 ppd and quit 1987 stopped drinking 05-04-18 Past Drug Use History: Marijuana Additional Drug Use History / Comment(s): Occasionally smokes a "joint" of marijuana - Past Family History Mother Family Medical History: Asthma Additional Family Medical History / Comment(s): at age 62 Father Family Medical History: CVA/TIA Additional Family Medical History / Comment(s): at age 90 Medications and Allergies Home Medications Medication Instructions Recorded Confirmed Type Montelukast [Singulair] 10 mg PO DAILY 03/16/14 05/13/19 History Metoprolol Tartrate 25 mg PO DAILY 04/24/18 05/13/19 History Sertraline [Zoloft] 100 mg PO DAILY 11/04/18 05/13/19 History amLODIPine [Norvasc] 5 mg PO DAILY 12/29/18 05/13/19 History buPROPion HCL [Wellbutrin XL] 150 mg PO DAILY 05/02/19 05/13/19 History oxyCODONE-APAP 10-325MG [Percocet 1 tab PO QID 05/06/19 05/13/19 History 10-325 mg] Albuterol Inhaler [Ventolin Hfa 1 - 2 puff INHALATION RT-Q6H PRN 05/10/19 05/13/19 Rx Inhaler] #1 inhaler Budesonide-Formot 160-4.5 Mcg 2 puff INHALATION RT-BID #1 inh 05/10/19 05/13/19 Rx [Symbicort 160-4.5 Mcg Inhaler] Famotidine [Pepcid] 20 mg PO Q12HR #60 tab 05/10/19 05/13/19 Rx guaiFENesin-DM 100-10MG/5ML 10 ml PO Q6H PRN #1 bottle 05/10/19 05/13/19 Rx [Robitussin DM] hydrALAZINE HCL [Apresoline] 25 mg PO TID #90 tab 05/10/19 05/13/19 Rx predniSONE See Taper PO DIRECTED 05/13/19 05/13/19 History Allergies Allergy/AdvReac Type Severity Reaction Status Date / Time peanut Allergy alg testing Verified 05/13/19 08:11 pollen extracts Allergy Unknown Verified 05/13/19 08:11 DUST Allergy alg testing Uncoded 05/13/19 01:42 Physical Exam Vitals: Vital Signs Temp Pulse Pulse Resp BP BP Pulse Ox 05/13/19 08:28 79 05/13/19 08:14 77 97 05/13/19 05:11 98.3 F 73 24 166/74 97 05/13/19 03:38 78 05/13/19 03:27 65 18 114/84 95 05/13/19 02:21 28 H 05/13/19 01:40 98 F 78 28 H 170/91 94 L Intake and Output 05/12/19 05/13/19 05/13/19 22:59 06:59 14:59 Intake Total 400 Balance 400 Intake: Oral 400 Other: Voiding Method Toilet # Voids 1 Weight 97.522 kg PHYSICAL EXAMINATION: Patient is lying in the bed comfortably, no acute distress, awake alert and oriented.. HEENT: Normocephalic. Neck is supple. Pupils reactive. Nostrils clear. Oral cavity is moist. Ears reveal no drainage. Neck reveals no JVD, carotid bruits, or thyromegaly. CHEST EXAMINATION: Trachea is central. Symmetrical expansion. Bilateral diminished air entry and diffuse wheezing. Scattered rhonchi. No crackles.. CARDIAC: Normal S1, S2 with no gallops. No murmurs ABDOMEN: Soft. Bowel sounds normal. No organomegaly. No abdominal bruits. Extremities: reveal no edema. No clubbing or cyanosis Neurologically awake, alert, oriented x3 with well-coordinated movements. No focal deficits noted Skin: No rash or skin lesions. Psychiatric: Coperative. Nonsuicidal Musculoskeletal: No joint swelling or deformity. Normal range of motion. Results CBC & Chem 7: 05/13/19 02:06 05/13/19 02:06 Labs: Abnormal Lab Results - Last 24 Hours (Table) 05/13/19 05/13/1919 Range/Units 02:06 02:06 02:06 WBC 17.0 H (3.8-10.6) k/uL RBC 3.95 L (4.30-5.90) m/uL Hgb 12.9 L (13.0-17.5) gm/dL Hct 38.9 L (39.0-53.0) % Neutrophils # 14.9 H (1.3-7.7) k/uL Lymphocytes # 0.7 L (1.0-4.8) k/uL Monocytes # 1.1 H (0-1.0) k/uL Basophils # 0.3 H (0-0.2) k/uL APTT 19.1 L (22.0-30.0) sec Chloride 108 H (98-107) mmol/L BUN 34 H (9-20) mg/dL Glucose 132 H (74-99) mg/dL POC Glucose (mg/dL) (75-99) mg/dL Magnesium 2.6 H (1.6-2.3) mg/dL Total Protein 5.2 L (6.3-8.2) g/dL Albumin 3.2 L (3.5-5.0) g/dL 05/13/19 Range/Units 06:49 WBC (3.8-10.6) k/uL RBC (4.30-5.90) m/uL Hgb (13.0-17.5) gm/dL Hct (39.0-53.0) % Neutrophils # (1.3-7.7) k/uL Lymphocytes # (1.0-4.8) k/uL Monocytes # (0-1.0) k/uL Basophils # (0-0.2) k/uL APTT (22.0-30.0) sec Chloride (98-107) mmol/L BUN (9-20) mg/dL Glucose (74-99) mg/dL POC Glucose (mg/dL) 153 H (75-99) mg/dL Magnesium (1.6-2.3) mg/dL Total Protein (6.3-8.2) g/dL Albumin (3.5-5.0) g/dL Thrombosis Risk Factor Assmnt - DVT/VTE Prophylaxis DVT/VTE Prophylaxis: Pharmacologic Prophylaxis ordered - Choose All That Apply Each Factor Represents 1 point: Abnormal pulmonary function (COPD) Thrombosis Risk Factor Assessment Total Risk Factor Score: 1 Thrombosis Risk Factor Assessment Level: Low Risk Assessment and Plan Assessment: Acute recurrent COPD exacerbation with purulent tracheobronchitis Chronic pain syndrome Obstructive sleep apnea on CPAP at home GERD Hypertension Osteoarthritis History of atrial flutter. Anxiety/depression, bipolar disorder and panic disorder Claustrophobia Previous history of smoking History of heavy alcohol abuse Marijuana use DVT prophylaxis heparin subcu Plan: Patient will be continued on IV methylprednisolone and DuoNeb's. Continue the Pulmicort inhalation. Patient will be started on azithromycin and we'll obtain sputum for culture. Continue the pain management with Percocet 10 every 6 hourly and patient was started on Dilaudid IV. Limit IV pain medication use. Continue the oxygen therapy and follow up closely. Will be CBC tomorrow. Further recommendations based on the clinical course. Prognosis is guarded. Time with Patient: Greater than 30
[2019-05-14] MEDS: methylPREDNISolone SOD SUCCI 125 MG/2 ML VIAL IV SCH ×4 (01:02→17:20)
[2019-05-14] MEDS: HEPARIN SODIUM,PORCINE 5,000 UNIT/ML 1 ML VIAL SQ SCH ×3 (01:02→15:38)
[2019-05-14] MEDS: oxyCODONE-APAP 10-325MG 1 EACH TAB PO PRN ×4 (02:15→20:48)
[2019-05-14] MEDS: HYDROmorphone 0.5 MG/0.5 ML SYRINGE IVP PRN ×3 (06:41→22:29)
[2019-05-14 07:02] LABS: Glucose,Whole Blood 120 mg/dL (75-99)
[2019-05-14] MEDS: amLODIPine 5 MG TAB PO SCH (07:51)
[2019-05-14] MEDS: AZITHROMYCIN 500 MG TAB PO SCH (07:51)
[2019-05-14] MEDS: MONTELUKAST 10 MG TAB PO SCH (07:51)
[2019-05-14] MEDS: FAMOTIDINE 20 MG TAB PO SCH ×2 (07:51→20:48)
[2019-05-14] MEDS: buPROPion XL 150 MG TAB.ER.24H PO SCH (07:51)
[2019-05-14] MEDS: METOPROLOL TARTRATE 25 MG TAB PO SCH (07:51)
[2019-05-14] MEDS: BUDESONIDE 0.5 MG/2 ML NEBU INHALATION SCH ×2 (09:29→20:46)
[2019-05-14] MEDS: IPRATROPIUM-ALBUTEROL 3 ML NEB INHALATION SCH ×4 (09:29→20:46)
[2019-05-14 11:38] LABS: Glucose,Whole Blood 158 mg/dL (75-99)
[2019-05-14 11:42] LABS: Basophils # (A) 0.1 k/uL (0-0.2); Basophils % (A) 1 %; Eosinophils % (A) 0 %; HCT 41.9 % (39.0-53.0); HGB 13.1 gm/dL (13.0-17.5); Lymphocytes # (A) 0.4 k/uL (1.0-4.8); Lymphocytes % (A) 2 %; MCHC 31.2 g/dL (31.0-37.0); MCV 102.8 fL (80.0-100.0); Macrocytosis Slight; Mean Platelet Volume 6.5; Monocytes # (A) 0.7 k/uL (0-1.0); Monocytes % (A) 4 %; Neutrophils # (A) 18.4 k/uL (1.3-7.7); Neutrophils % (A) 94 %; Platelet Count 199 k/uL (150-450); RBC 4.08 m/uL (4.30-5.90); RDW 14.6 % (11.5-15.5); WBC 19.7 k/uL (3.8-10.6)
[2019-05-14 11:51] LABS: African American GFR (CKD) >90 (>60 ml/min/1.73 sqM); Anion Gap 8 mmol/L; Blood Urea Nitrogen 33 mg/dL (9-20); Calcium 8.8 mg/dL (8.4-10.2); Carbon Dioxide 23 mmol/L (22-30); Chloride 105 mmol/L (98-107); Glucose 141 mg/dL (74-99); Potassium 4.6 mmol/L (3.5-5.1); Sodium 136 mmol/L (137-145)
--- NOTE | 2019-05-14 16:05 | PN ---
PROGRESS NOTE DATE OF SERVICE: 05/14/2019 Milo Stack was seen again on May2018. He is complaining of chest pain. Otherwise, he has been doing fair. He continues to have shortness of breath. On physical examination, vitals are stable. He is afebrile. His chest reveals expiratory wheeze. Cardiovascular system reveals an S1, S2. Abdomen is soft. There is no pedal edema. IMPRESSION: At this time: 1. Severe asthma with chronic obstructive pulmonary disease with acute exacerbation. 2. Eosinophilic phenotype with a previous eosinophil count of 2.2 1000. 3. Chronic pain. At this point in time, continue IV and aerosolized steroids with leukotriene receptor antagonist. Increase his activity level. He may be a candidate for anti eosinophilic biologic such as Fasenra or Dupixent. He was counseled regarding his condition and this approach. PARKL / AQUILINON: [id number] /
[2019-05-14 17:15] LABS: Glucose,Whole Blood 111 mg/dL (75-99)
[2019-05-14 20:30] LABS: Glucose,Whole Blood 122 mg/dL (75-99)
--- NOTE | 2019-05-14 23:54 | P.PN ---
Subjective Progress Note Date: 05/14/19 Principal diagnosis: Acute COPD exacerbation Patient is 63-year-old male with a known history of COPD, eosinophilic asthma, chronic pain and hypertension and obstructive sleep apnea with multiple admissions previously came to ER with complaints of shortness of breath cough and wheezing. Patient says that he has been having worsening shortness of breath for the past 2-3 days. Patient was seen by pulmonary about a week ago. Patient was recently admitted to the hospital during the first week of May with similar complaints. Patient is also complaining of cough with yellowish thick sputum production. Denied any hemoptysis. Patient is taking oral prednisone at home, tapering course. Denied any complaints of fever or chills. No nausea vomiting or abdominal pain. No diarrhea or dysuria. No headache or dizziness or lightheadedness. No complaints of chest pain. Chest x-ray showed no acute cardio pulmonary process. Normal heart. EKG showed normal sinus rhythm. Laboratory data showed WBC 17.0 which is most likely from the steroid use. Patient is requesting IV Dilaudid. 05/14/2019 Patient denied any complaints of chest pain. Otherwise patient is still dyspn eic and wheezing today. Improved bronchitis likely. No fever no chills. Patient is still complaining of cough sputum production. Sputum culture will be sent. Otherwise WBC count increased to 19.5 today. Patient is on IV steroids and DuoNeb's. Patient is requesting IV pain medications. Pulmonary is on board. Current medications reviewed. Active Medications Albuterol/Ipratropium (Duoneb 0.5 Mg-3 Mg/3 Ml Soln) 3 ml INHALATION RT-QID PRN PRN Reason: Shortness Of Breath Or Wheezing Albuterol/Ipratropium (Duoneb 0.5 Mg-3 Mg/3 Ml Soln) 3 ml INHALATION RT-QID [facility] Last Admin: 05/14/19 20:46 Dose: 3 ml Documented by: Amlodipine Besylate (Norvasc) 5 mg PO DAILY [facility] Last Admin: 05/14/19 07:51 Dose: 5 mg Documented by: Azithromycin (Zithromax) 500 mg PO DAILY [facility] Last Admin: 05/14/19 07:51 Dose: 500 mg Documented by: Budesonide (Pulmicort) 0.5 mg INHALATION RT-BID [facility] Last Admin: 05/14/19 20:46 Dose: 0.5 mg Documented by: Bupropion HCl (Wellbutrin Xl) 150 mg PO DAILY [facility] Last Admin: 05/14/19 07:51 Dose: 150 mg Documented by: Famotidine (Pepcid) 20 mg PO Q12HR [facility] Last Admin: 05/14/19 20:48 Dose: 20 mg Documented by: Guaifenesin/Dextromethorphan (Robitussin Dm) 10 ml PO Q6H PRN PRN Reason: Cough Heparin Sodium (Porcine) (Heparin) 5,000 unit SQ Q8HR [facility] Last Admin: 05/14/19 15:38 Dose: 5,000 unit Documented by: Methylprednisolone Sodium Succinate (Solu-Medrol) 60 mg IV Q6HR [facility] Last Admin: 05/14/19 17:20 Dose: 60 mg Documented by: Metoprolol Tartrate (Lopressor) 25 mg PO DAILY [facility] Last Admin: 05/14/19 07:51 Dose: 25 mg Documented by: Montelukast Sodium (Singulair) 10 mg PO DAILY [facility] Last Admin: 05/14/19 07:51 Dose: 10 mg Documented by: Naloxone HCl (Narcan) 0.2 mg IV Q2M PRN PRN Reason: Opioid Reversal Oxycodone/Acetaminophen (Percocet 10-325) 1 each PO Q4H PRN PRN Reason: Pain Objective - Vital Signs Vital signs: Vital Signs Temp 97.6 F 05/14/19 13:40 Pulse 64 05/14/19 20:47 Resp 18 05/14/19 13:40 BP 130/78 05/14/19 13:40 Pulse Ox 94 L 05/14/19 20:47 Intake & Output 05/14/19 05/14/19 05/15/19 06:59 18:59 06:59 Intake Total 800 Balance 800 Intake: Oral 800 Other: Voiding Method Toilet Toilet # Voids 1 2 0 - Exam PHYSICAL EXAMINATION: Patient is lying in the bed comfortably, no acute distress, awake alert and oriented.. HEENT: Normocephalic. Neck is supple. Pupils reactive. Nostrils clear. Oral cavity is moist. Ears reveal no drainage. Neck reveals no JVD, carotid bruits, or thyromegaly. CHEST EXAMINATION: Trachea is central. Symmetrical expansion. Right lateral expiratory wheeze and scattered rhonchi. CARDIAC: Normal S1, S2 with no gallops. No murmurs ABDOMEN: Soft. Bowel sounds normal. No organomegaly. No abdominal bruits. Extremities: reveal no edema. No clubbing or cyanosis Neurologically awake, alert, oriented x3 with well-coordinated movements. No focal deficits noted Skin: No rash or skin lesions. Psychiatric: Coperative. Nonsuicidal Musculoskeletal: No joint swelling or deformity. Normal range of motion. - Labs CBC & Chem 7: 05/14/19 11:22 05/14/19 11:22 Labs: Abnormal Lab Results - Last 24 Hours (Table) 05/14/19 05/14/19 05/14/19 Range/Units 06:58 11:22 11:22 WBC 19.7 H (3.8-10.6) k/uL RBC 4.08 L (4.30-5.90) m/uL MCV 102.8 H (80.0-100.0) fL Neutrophils # 18.4 H (1.3-7.7) k/uL Lymphocytes # 0.4 L (1.0-4.8) k/uL Sodium 136 L (137-145) mmol/L BUN 33 H (9-20) mg/dL Glucose 141 H (74-99) mg/dL POC Glucose (mg/dL) 120 H (75-99) mg/dL 05/14/19 05/14/19 05/14/19 Range/Units 11:36 17:13 20:20 WBC (3.8-10.6) k/uL RBC (4.30-5.90) m/uL MCV (80.0-100.0) fL Neutrophils # (1.3-7.7) k/uL Lymphocytes # (1.0-4.8) k/uL Sodium (137-145) mmol/L BUN (9-20) mg/dL Glucose (74-99) mg/dL POC Glucose (mg/dL) 158 H 111 H 122 H (75-99) mg/dL Assessment and Plan Assessment: Acute recurrent COPD exacerbation with purulent tracheobronchitis Chronic pain syndrome Obstructive sleep apnea on CPAP at home GERD Hypertension Osteoarthritis History of atrial flutter. Anxiety/depression, bipolar disorder and panic disorder Claustrophobia Previous history of smoking History of heavy alcohol abuse Marijuana use DVT prophylaxis heparin subcu Plan: Patient will be continued on IV methylprednisolone and DuoNeb's. Continue the Pulmicort inhalation. Patient will be started on azithromycin and we'll obtain sputum for culture. Continue the pain management with Percocet 10 every 6 hourly and patient was started on Dilaudid IV. Limit IV pain medication use. Continue the oxygen therapy and follow up closely. Will be CBC tomorrow. Furth er recommendations based on the clinical course. Prognosis is guarded. Time with Patient: Greater than 30
[2019-05-15] MEDS: methylPREDNISolone SOD SUCCI 125 MG/2 ML VIAL IV SCH ×5 (00:11→23:40)
[2019-05-15] MEDS: HEPARIN SODIUM,PORCINE 5,000 UNIT/ML 1 ML VIAL SQ SCH ×4 (00:11→23:39)
[2019-05-15] MEDS: oxyCODONE-APAP 10-325MG 1 EACH TAB PO PRN ×6 (02:18→20:50)
[2019-05-15] MEDS: IPRATROPIUM-ALBUTEROL 3 ML NEB INHALATION PRN (05:18)
[2019-05-15] MEDS: guaiFENesin-DM 100-10MG/5ML 10 ML CUP PO PRN ×2 (06:58→20:51)
[2019-05-15] MEDS: FAMOTIDINE 20 MG TAB PO SCH ×2 (06:58→20:52)
[2019-05-15] MEDS: amLODIPine 5 MG TAB PO SCH (06:58)
[2019-05-15] MEDS: buPROPion XL 150 MG TAB.ER.24H PO SCH (06:58)
[2019-05-15] MEDS: MONTELUKAST 10 MG TAB PO SCH (06:58)
[2019-05-15] MEDS: AZITHROMYCIN 500 MG TAB PO SCH (06:58)
[2019-05-15] MEDS: METOPROLOL TARTRATE 25 MG TAB PO SCH (06:58)
[2019-05-15 07:01] LABS: Glucose,Whole Blood 165 mg/dL (75-99)
[2019-05-15 08:03] LABS: Basophils # (A) 0.1 k/uL (0-0.2); Basophils % (A) 0 %; Eosinophils % (A) 0 %; HCT 40.8 % (39.0-53.0); HGB 12.6 gm/dL (13.0-17.5); Lymphocytes # (A) 0.3 k/uL (1.0-4.8); Lymphocytes % (A) 2 %; MCH 32.1 pg (25.0-35.0); MCV 103.5 fL (80.0-100.0); Macrocytosis Slight; Mean Platelet Volume 6.4; Monocytes # (A) 0.4 k/uL (0-1.0); Monocytes % (A) 3 %; Neutrophils # (A) 15.8 k/uL (1.3-7.7); Neutrophils % (A) 95 %; Platelet Count 156 k/uL (150-450); RBC 3.94 m/uL (4.30-5.90); RDW 14.6 % (11.5-15.5); WBC 16.6 k/uL (3.8-10.6)
[2019-05-15 08:15] LABS: Calcium 8.5 mg/dL (8.4-10.2); Potassium 4.7 mmol/L (3.5-5.1)
[2019-05-15] MEDS: IPRATROPIUM-ALBUTEROL 3 ML NEB INHALATION SCH ×4 (08:54→21:04)
[2019-05-15] MEDS: BUDESONIDE 0.5 MG/2 ML NEBU INHALATION SCH ×2 (08:54→21:04)
[2019-05-15 11:40] LABS: Glucose,Whole Blood 109 mg/dL (75-99)
[2019-05-15 17:05] LABS: Glucose,Whole Blood 121 mg/dL (75-99)
[2019-05-15 20:43] LABS: Glucose,Whole Blood 144 mg/dL (75-99)
[2019-05-16] MEDS: oxyCODONE-APAP 10-325MG 1 EACH TAB PO PRN ×5 (00:30→16:28)
[2019-05-16] MEDS: IPRATROPIUM-ALBUTEROL 3 ML NEB INHALATION PRN (03:52)
[2019-05-16] MEDS: methylPREDNISolone SOD SUCCI 125 MG/2 ML VIAL IV SCH ×2 (05:34→11:22)
[2019-05-16 07:04] LABS: Glucose,Whole Blood 119 mg/dL (75-99)
[2019-05-16] MEDS: BUDESONIDE 0.5 MG/2 ML NEBU INHALATION SCH (07:29)
[2019-05-16] MEDS: IPRATROPIUM-ALBUTEROL 3 ML NEB INHALATION SCH ×3 (07:29→15:40)
[2019-05-16] MEDS: FAMOTIDINE 20 MG TAB PO SCH (08:10)
[2019-05-16] MEDS: METOPROLOL TARTRATE 25 MG TAB PO SCH (08:10)
[2019-05-16] MEDS: HEPARIN SODIUM,PORCINE 5,000 UNIT/ML 1 ML VIAL SQ SCH ×2 (08:10→16:42)
[2019-05-16] MEDS: MONTELUKAST 10 MG TAB PO SCH (08:10)
[2019-05-16] MEDS: amLODIPine 5 MG TAB PO SCH (08:11)
[2019-05-16] MEDS: buPROPion XL 150 MG TAB.ER.24H PO SCH (08:11)
[2019-05-16] MEDS: AZITHROMYCIN 500 MG TAB PO SCH (08:11)
[2019-05-16 12:06] LABS: Glucose,Whole Blood 119 mg/dL (75-99)
[2019-05-16 12:50] VITALS: BP 178/88; RESP 17; TEMP 97
--- NOTE | 2019-05-16 13:36 | P.PN ---
Subjective Progress Note Date: 05/15/19 Principal diagnosis: Acute COPD exacerbation, purulent tracheobronchitis, obstructive sleep apnea, chronic pain syndrome, hypertension hypertensive cardiovascular disease, atrial flutter, major depression, anxiety disorder, history of extensive smoking and ethanol abuse in the past, 05/15/2019, patient seen eval reexamined has been on IV steroids and breathing treatments has been getting pain management as well his chest pain is improved but still have ongoing wheezing has reviewed medications reviewed, last chest x- ray performed on the 05/13/19 reviewed as well no active cardiopulmonary disease seen Objective - Vital Signs Vital signs: Vital Signs Temp 97.4 F L 05/15/19 14:26 Pulse 72 05/15/19 16:57 Resp 17 05/15/19 14:26 BP 126/74 05/15/19 14:26 Pulse Ox 94 L 05/15/19 14:26 Intake & Output 05/14/19 05/15/19 05/15/19 18:59 06:59 18:59 Intake Total 800 1150 630 Balance 800 1150 630 Intake: Oral 800 1150 630 Other: Voiding Method Toilet Toilet # Voids 2 2 2 - Exam Patient is lying in the bed comfortably, no acute distress, awake alert and oriented.. HEENT: Normocephalic. Neck is supple. Pupils reactive. Nostrils clear. Oral cavity is moist. Ears reveal no drainage. Neck reveals no JVD, carotid bruits, or thyromegaly. CHEST EXAMINATION: Trachea is central. Symmetrical expansion. Bilateral diminished air entry and diffuse wheezing. Scattered rhonchi. No crackles.. CARDIAC: Normal S1, S2 with no gallops. No murmurs ABDOMEN: Soft. Bowel sounds normal. No organomegaly. No abdominal bruits. Extremities: reveal no edema. No clubbing or cyanosis Neurologically awake, alert, oriented x3 with well-coordinated movements. No focal deficits noted Skin: No rash or skin lesions. Psychiatric: Coperative. Nonsuicidal Musculoskeletal: No joint swelling or deformity. Normal range of motion. - Labs CBC & Chem 7: 05/15/19 07:10 05/15/19 07:10 Labs: Abnormal Lab Results - Last 24 Hours (Table) 05/14/19 05/15/19 05/15/19 Range/Units 20:20 06:59 07:10 WBC 16.6 H (3.8-10.6) k/uL RBC 3.94 L (4.30-5.90) m/uL Hgb 12.6 L (13.0-17.5) gm/dL MCV 103.5 H (80.0-100.0) fL Neutrophils # 15.8 H (1.3-7.7) k/uL Lymphocytes # 0.3 L (1.0-4.8) k/uL Sodium (137-145) mmol/L BUN (9-20) mg/dL Glucose (74-99) mg/dL POC Glucose (mg/dL) 122 H 165 H (75-99) mg/dL 05/15/19 05/15/19 05/15/19 Range/Units 07:10 11:39 17:03 WBC (3.8-10.6) k/uL RBC (4.30-5.90) m/uL Hgb (13.0-17.5) gm/dL MCV (80.0-100.0) fL Neutrophils # (1.3-7.7) k/uL Lymphocytes # (1.0-4.8) k/uL Sodium 135 L (137-145) mmol/L BUN 45 H (9-20) mg/dL Glucose 149 H (74-99) mg/dL POC Glucose (mg/dL) 109 H 121 H (75-99) mg/dL Assessment and Plan Assessment: Acute COPD exacerbation Purulent tracheobronchitis Acute on chronic hypoxic respiratory failure Sleep disorder breathing and sleep apnea obstructive Major depression Generalized anxiety disorder Atrial flutter by history Plan: Continue breathing treatment IV steroids Pain management as per primary service We'll follow closely further recommendations pending plan of care as per clinica l response the patient Time with Patient: Greater than 30
--- NOTE | 2019-05-16 13:38 | P.PN ---
Subjective Progress Note Date: 05/16/19 Principal diagnosis: Acute COPD exacerbation, purulent tracheobronchitis, obstructive sleep apnea, chronic pain syndrome, hypertension hypertensive cardiovascular disease, atrial flutter, major depression, anxiety disorder, history of extensive smoking and ethanol abuse in the past, 05/16/2019, patient seen eval reexamined during the rounds she is much better denies any chest pain some chronic back pain has been present. And sputum is not seen any more still intermittently wheezing patient is requesting for discharge 05/15/2019, patient seen eval reexamined has been on IV steroids and breathing treatments has been getting pain management as well his chest pain is improved but still have ongoing wheezing has reviewed medications reviewed, last chest x- ray performed on the 05/13/19 reviewed as well no active cardiopulmonary disease seen Objective - Vital Signs Vital signs: Vital Signs Temp 97.0 F L 05/16/19 12:49 Pulse 63 05/16/19 12:49 Resp 17 05/16/19 12:49 BP 178/88 05/16/19 12:49 Pulse Ox 95 05/16/19 12:49 Intake & Output 05/15/19 05/16/19 05/16/19 18:59 06:59 18:59 Intake Total 870 1000 240 Balance 870 1000 240 Intake: Oral 870 1000 240 Other: Voiding Method Toilet Toilet Toilet # Voids 2 2 - Exam Patient is lying in the bed comfortably, no acute distress, awake alert and oriented.. HEENT: Normocephalic. Neck is supple. Pupils reactive. Nostrils clear. Oral cavity is moist. Ears reveal no drainage. Neck reveals no JVD, carotid bruits, or thyromegaly. CHEST EXAMINATION: Trachea is central. Symmetrical expansion. Bilateral diminished air entry and diffuse wheezing. Scattered rhonchi. No crackles.. CARDIAC: Normal S1, S2 with no gallops. No murmurs ABDOMEN: Soft. Bowel sounds normal. No organomegaly. No abdominal bruits. Extremities: reveal no edema. No clubbing or cyanosis Neurologically awake, alert, oriented x3 with well-coordinated movements. No focal deficits noted Skin: No rash or skin lesions. Psychiatric: Coperative. Nonsuicidal Musculoskeletal: No joint swelling or deformity. Normal range of motion. - Labs CBC & Chem 7: 05/15/19 07:10 05/15/19 07:10 Labs: Abnormal Lab Results - Last 24 Hours (Table) 05/15/19 05/15/19 05/16/19 Range/Units 17:03 20:16 07:02 POC Glucose (mg/dL) 121 H 144 H 119 H (75-99) mg/dL 05/16/19 Range/Units 12:04 POC Glucose (mg/dL) 119 H (75-99) mg/dL Assessment and Plan Assessment: Acute COPD exacerbation Purulent tracheobronchitis Acute on chronic hypoxic respiratory failure Sleep disorder breathing and sleep apnea obstructive Major depression Generalized anxiety disorder Atrial flutter by history Plan: Agree with discharge planning Continue breathing treatment IV steroids can be changed to by mouth prior to discharge Patient CPAP machine is broken he has refused repeat sleep study Pain management as per primary service We'll follow closely further recommendations pending plan of care as per clinical response the patient Time with Patient: Greater than 30
[2019-05-16 15:44] VITALS: PULSE 66
== END 2019-05-16 17:21 | disposition home or self-care (01) | DRG 190 ==
LOC: EC 01:37 → 4MS4W 04:20 → OBSVTOIN 05-16 09:49
PROVIDERS: ADMIT Internal Medicine; ATTEND Internal Medicine
DX: J44.0 Chronic obstructive pulmonary disease with (acute) lower respiratory infection (principal); J96.21 Acute and chronic respiratory failure with hypoxia; J82 Pulmonary eosinophilia, not elsewhere classified; J44.1 Chronic obstructive pulmonary disease with (acute) exacerbation; I11.9 Hypertensive heart disease without heart failure; J20.9 Acute bronchitis, unspecified; G47.33 Obstructive sleep apnea (adult) (pediatric); G89.4 Chronic pain syndrome; F41.1 Generalized anxiety disorder; K21.9 Gastro-esophageal reflux disease without esophagitis; F32.9 Major depressive disorder, single episode, unspecified; D72.829 Elevated white blood cell count, unspecified; M54.9 Dorsalgia, unspecified; M19.90 Unspecified osteoarthritis, unspecified site; Z90.49 Acquired absence of other specified parts of digestive tract; F41.0 Panic disorder [episodic paroxysmal anxiety]; F10.21 Alcohol dependence, in remission; Z79.891 Long term (current) use of opiate analgesic; Z79.51 Long term (current) use of inhaled steroids; Z79.52 Long term (current) use of systemic steroids; Z79.899 Other long term (current) drug therapy; Z87.891 Personal history of nicotine dependence; Z87.01 Personal history of pneumonia (recurrent); Z86.79 Personal history of other diseases of the circulatory system; Z98.890 Other specified postprocedural states; Z91.010 Allergy to peanuts; Z91.048 Other nonmedicinal substance allergy status; Z82.5 Family history of asthma and other chronic lower respiratory diseases; Z82.3 Family history of stroke
CPT/HCPCS: 36415; 71046; 80048; 80053; 83735; 84484; 85025; 85610; 85730; 93005; 94640; 94760; 96374; 96375; 99285

== ENCOUNTER 2019-05-22 02:58 | Emergency (ER) | payer MEDICARE ==
[2019-05-22] MEDS ORDERED: HYDROcodone/APAP 7.5-325MG 1 EACH TAB PO ONE (03:13)
[2019-05-22] MEDS ORDERED: methylPREDNISolone SOD SUCCI 125 MG/2 ML VIAL IV STA (03:13)
[2019-05-22] MEDS ORDERED: IPRATROPIUM-ALBUTEROL 3 ML NEB INHALATION STA (03:13)
--- NOTE | 2019-05-22 03:14 | ED ---
SOB HPI - General Source: patient Mode of arrival: wheelchair Limitations: no limitations <Maia Iverson - Last Filed: 05/22/19 03:28> <Kathrin Latif - Last Filed: 05/22/19 06:11> - General Chief Complaint: Shortness of Breath Stated Complaint: Leg Swelling,SOB Time Seen by Provider: 05/22/19 03:07 - History of Present Illness Initial Comments: 63-year-old male with history of atrial flutter, COPD, hypertension, anxiety, sleep apnea presents emergency department for evaluation of shortness of breath, wheezing, cough and bilateral lower extremity swelling. Patient states that he feels as though he is having a COPD exacerbation he states he has had increasing cough with sputum production and wheezing. Patient states he has also noted for the past 1-2 days bilateral lower extremity swelling. He states his legs feel tight and burning. Denies history of heart failiure. Patient denies chest pain, denies hemoptysis history of PE/DVT, unilateral leg swelling, calf pain. Patient states he is short of breath and has performed multiple duoneb treatment prior to arrival. Patient denies back pain or fevers. Denies any other complaints. Upon arrival patient appears well no signs of acute distress. VS stable. (Maia Iverson) - Related Data Home Medications Medication Instructions Recorded Confirmed Montelukast [Singulair] 10 mg PO DAILY 03/16/14 05/13/19 Sertraline [Zoloft] 100 mg PO DAILY 11/04/18 05/13/19 buPROPion HCL [Wellbutrin XL] 150 mg PO DAILY 05/02/19 05/13/19 oxyCODONE-APAP 10-325MG [Percocet 1 tab PO QID 05/06/19 05/13/19 10-325 mg] Previous Rx's Medication Instructions Recorded Albuterol Inhaler [Ventolin Hfa 1 - 2 puff INHALATION RT-Q6H PRN 05/10/19 Inhaler] #1 inhaler Budesonide-Formot 160-4.5 Mcg 2 puff INHALATION RT-BID #1 inh 05/10/19 [Symbicort 160-4.5 Mcg Inhaler] Famotidine [Pepcid] 20 mg PO Q12HR #60 tab 05/10/19 guaiFENesin-DM 100-10MG/5ML 10 ml PO Q6H PRN #1 bottle 05/10/19 [Robitussin DM] Azithromycin [Zithromax] 500 mg PO DAILY #2 tab 05/16/19 Ipratropium-Albuterol Nebulize 3 ml INHALATION RT-QID #60 05/16/19 [Duoneb 0.5 mg-3 mg/3 ml Soln] ampul.neb Losartan/Hydrochlorothiazide 1 tab PO DAILY #30 tab 05/16/19 [Losartan-Hctz 50-12.5 mg Tab] amLODIPine [Norvasc] 10 mg PO DAILY #30 tablet 05/16/19 predniSONE See Taper PO DIRECTED #30 tab 05/16/19 Allergies Allergy/AdvReac Type Severity Reaction Status Date / Time peanut Allergy alg testing Verified 05/13/19 08:11 pollen extracts Allergy Unknown Verified 05/13/19 08:11 DUST Allergy alg testing Uncoded 05/13/19 01:42 Review of Systems ROS Other: All systems not noted in ROS Statement are negative. <Maia Iverson L - Last Filed: 05/22/19 03:28> ROS Other: All systems not noted in ROS Statement are negative. <Kathrin Latif - Last Filed: 05/22/19 06:11> ROS Statement: Those systems with pertinent positive or pertinent negative responses have been documented in the HPI. Past Medical History Past Medical History: Atrial Flutter, Asthma, Chest Pain / Angina, COPD, GERD/Reflux, Hypertension, Osteoarthritis (OA), Pneumonia, Sleep Apnea/CPAP/BIPAP Additional Past Medical History / Comment(s): Back problems History of Any Multi-Drug Resistant Organisms: None Reported Past Surgical History: Adenoidectomy, Bowel Resection, Cholecystectomy Additional Past Surgical History / Comment(s): Nasal Past Anesthesia/Blood Transfusion Reactions: Previous Problems w/ Anesthesia, Motion Sickness Additional Past Anesthesia/Blood Transfusion Reaction / Comment(s): states "during procedure of checking something on my left lung,I turned blue and I was brought right back out anesthesia and proc was cancelled". clausterphobia Past Psychological History: Anxiety, Bipolar, Depression, Panic Disorder Smoking Status: Former smoker Past Alcohol Use History: Heavy Past Drug Use History: Marijuana - Past Family History Mother Family Medical History: Asthma Additional Family Medical History / Comment(s): at age 62 Father Family Medical History: CVA/TIA Additional Family Medical History / Comment(s): at age 90 <Maia Iverson - Last Filed: 05/22/19 03:28> General Exam Limitations: no limitations <Maia Iverson - Last Filed: 05/22/19 03:28> - General Exam Comments Initial Comments: General: The patient is awake and alert, in no distress. Eye: Pupils are equal, round and reactive to light, extra-ocular movements are intact. No nystagmus. There is normal conjunctiva bilaterally. No signs of icterus. Ears, nose, mouth and throat: There are moist mucous membranes and no oral lesions. Neck: The neck is supple, there is no tenderness or JVD. Cardiovascular: There is a regular rate and rhythm. No murmur, rub or gallop is appreciated. Respiratory: Respirations are nonlabored no abdominal breathing or retractions. Patient has significant expiratory wheeze rhonchi noted. No stridor or connie reciated rales. Lung sounds are present in all pedroza. Gastrointestinal: Soft, non-distended, non-tender abdomen without masses or organomegaly noted. There is no rebound or guarding present. Musculoskeletal: Normal ROM, no tenderness. Strength 5/5. Sensation intact. Radial pulses equal bilaterally 2+. Neurological: A&O x 3. CN II-XII intact grossly, There are no obvious motor or sensory deficits. Coordination appears grossly intact. Speech is normal. Skin: Skin is warm and dry and no rashes or lesions are noted. B/l +2 pitting edema of feet/ anterior tibia/fibula Psychiatric: Cooperative, appropriate mood & affect, normal judgment. (Maia Iverson) Course <Maia Iverson - Last Filed: 05/22/19 03:28> Vital Signs 05/22/19 05/22/19 05/22/19 03:01 03:23 03:34 Temperature 97.5 F L Pulse Rate 73 88 88 Respiratory 18 Rate Blood Pressure 121/68 O2 Sat by Pulse 96 Oximetry 05/22/19 05:47 Temperature 98.5 F Pulse Rate 68 Respiratory 20 Rate Blood Pressure 130/45 O2 Sat by Pulse 96 Oximetry - Reevaluation(s) Reevaluation #1: 05/22/19 03:25 Patient labs pending, imaging study radiologic read and breathing treatment pending at the time of sign out to attending Dr. Latif who will resume care and final disposition of patient. 05/22/19 03:26 (Maia Iverson) Medical Decision Making <Maia Iverson - Last Filed: 05/22/19 03:28> - Lab Data Result diagrams: 05/22/19 03:24 05/22/19 03:24 <Kathrin Latif - Last Filed: 05/22/19 06:11> - Lab Data Lab Results 05/22/19 05/22/19 05/22/19 Range/Units 03:24 03:24 03:24 WBC 11.0 H (3.8-10.6) k/uL RBC 3.62 L (4.30-5.90) m/uL Hgb 12.1 L (13.0-17.5) gm/dL Hct 36.6 L (39.0-53.0) % MCV 101.2 H (80.0-100.0) fL MCH 33.5 (25.0-35.0) pg MCHC 33.1 (31.0-37.0) g/dL RDW 14.8 (11.5-15.5) % Plt Count 118 L (150-450) k/uL Neutrophils % 78 % Lymphocytes % 14 % Monocytes % 5 % Eosinophils % 1 % Basophils % 0 % Neutrophils # 8.6 H (1.3-7.7) k/uL Lymphocytes # 1.6 (1.0-4.8) k/uL Monocytes # 0.6 (0-1.0) k/uL Eosinophils # 0.1 (0-0.7) k/uL Basophils # 0.0 (0-0.2) k/uL Macrocytosis Slight PT (9.0-12.0) sec INR (<1.2) APTT (22.0-30.0) sec Sodium 139 (137-145) mmol/L Potassium 4.3 (3.5-5.1) mmol/L Chloride 109 H (98-107) mmol/L Carbon Dioxide 26 (22-30) mmol/L Anion Gap 4 mmol/L BUN 40 H (9-20) mg/dL Creatinine 1.35 H (0.66-1.25) mg/dL Est GFR (CKD-EPI)AfAm 65 (>60 ml/min/1.73 sqM) Est GFR (CKD-EPI)NonAf 56 (>60 ml/min/1.73 sqM) Glucose 99 (74-99) mg/dL Calcium 8.5 (8.4-10.2) mg/dL Magnesium 2.0 (1.6-2.3) mg/dL Total Bilirubin 0.3 (0.2-1.3) mg/dL AST 22 (17-59) U/L ALT 46 (21-72) U/L Alkaline Phosphatase 75 (38-126) U/L Troponin I (0.000-0.034) ng/mL NT-Pro-B Natriuret Pep 221 pg/mL Total Protein 5.0 L (6.3-8.2) g/dL Albumin 3.0 L (3.5-5.0) g/dL 05/22/19 05/22/19 Range/Units 03:24 03:24 WBC (3.8-10.6) k/uL RBC (4.30-5.90) m/uL Hgb (13.0-17.5) gm/dL Hct (39.0-53.0) % MCV (80.0-100.0) fL MCH (25.0-35.0) pg MCHC (31.0-37.0) g/dL RDW (11.5-15.5) % Plt Count (150-450) k/uL Neutrophils % % Lymphocytes % % Monocytes % % Eosinophils % % Basophils % % Neutrophils # (1.3-7.7) k/uL Lymphocytes # (1.0-4.8) k/uL Monocytes # (0-1.0) k/uL Eosinophils # (0-0.7) k/uL Basophils # (0-0.2) k/uL Macrocytosis PT 9.9 (9.0-12.0) sec INR 0.9 (<1.2) APTT 19.8 L (22.0-30.0) sec Sodium (137-145) mmol/L Potassium (3.5-5.1) mmol/L Chloride (98-107) mmol/L Carbon Dioxide (22-30) mmol/L Anion Gap mmol/L BUN (9-20) mg/dL Creatinine (0.66-1.25) mg/dL Est GFR (CKD-EPI)AfAm (>60 ml/min/1.73 sqM) Est GFR (CKD-EPI)NonAf (>60 ml/min/1.73 sqM) Glucose (74-99) mg/dL Calcium (8.4-10.2) mg/dL Magnesium (1.6-2.3) mg/dL Total Bilirubin (0.2-1.3) mg/dL AST (17-59) U/L ALT (21-72) U/L Alkaline Phosphatase (38-126) U/L Troponin I 0.018 (0.000-0.034) ng/mL NT-Pro-B Natriuret Pep pg/mL Total Protein (6.3-8.2) g/dL Albumin (3.5-5.0) g/dL - EKG Data EKG Comments: Ventricular rate 65 bpm, MA interval 122 ms, QRS duration 130 ms, QT/QTC 418/[address] elevation depression right bundle-branch block noted. EKG compared to that of 05/13/2019 no acute findings. (Maia Iverson) Disposition <Maia Iverson - Last Filed: 05/22/19 03:28> Is patient prescribed a controlled substance at d/c from ED?: No <Kathrin Latif - Last Filed: 05/22/19 06:11> Clinical Impression: COPD (chronic obstructive pulmonary disease) with acute bronchitis, Lower extremity edema Disposition: HOME SELF-CARE Condition: Stable Instructions (If sedation given, give patient instructions): Chronic Bronchitis (ED) Referrals: Deborah Shah III, MD [Primary Care Provider] - 1-2 days
[2019-05-22 03:44] LABS: Basophils % (A) 0 %; Eosinophils # (A) 0.1 k/uL (0-0.7); Eosinophils % (A) 1 %; HCT 36.6 % (39.0-53.0); HGB 12.1 gm/dL (13.0-17.5); Lymphocytes # (A) 1.6 k/uL (1.0-4.8); Lymphocytes % (A) 14 %; MCH 33.5 pg (25.0-35.0); MCHC 33.1 g/dL (31.0-37.0); MCV 101.2 fL (80.0-100.0); Macrocytosis Slight; Mean Platelet Volume 5.7; Monocytes # (A) 0.6 k/uL (0-1.0); Monocytes % (A) 5 %; Neutrophils # (A) 8.6 k/uL (1.3-7.7); Neutrophils % (A) 78 %; Platelet Count 118 k/uL (150-450); RBC 3.62 m/uL (4.30-5.90); RDW 14.8 % (11.5-15.5)
[2019-05-22 03:49] LABS: Calcium 8.5 mg/dL (8.4-10.2); Potassium 4.3 mmol/L (3.5-5.1); Total Bilirubin 0.3 mg/dL (0.2-1.3)
--- NOTE | 2019-05-22 03:49 | XR ---
EXAMINATION TYPE: XR chest 2V DATE OF EXAM: 05/22/2019 COMPARISON: 05/13/2019 HISTORY: Difficulty breathing TECHNIQUE: Frontal and lateral views of the chest are obtained. FINDINGS: There is no heart failure nor confluent pneumonic infiltrate. Costophrenic angles are kalyn r. Bony thorax is intact. IMPRESSION: Normal chest. No change.
[2019-05-22 03:51] LABS: INR 0.9 (<1.2); Prothrombin Time 9.9 sec (9.0-12.0)
[2019-05-22 04:02] LABS: Partial Thromboplastin Time 19.8 sec (22.0-30.0)
[2019-05-22 05:48] VITALS: BP 130/45; PULSE 68; RESP 20; TEMP 98.5
== END 2019-05-22 06:19 | disposition home or self-care (01) ==
LOC: EC 02:58
DX: J44.0 Chronic obstructive pulmonary disease with (acute) lower respiratory infection (principal); J20.9 Acute bronchitis, unspecified; R60.0 Localized edema; I48.92 Unspecified atrial flutter; I10 Essential (primary) hypertension; K21.9 Gastro-esophageal reflux disease without esophagitis; F41.0 Panic disorder [episodic paroxysmal anxiety]; F31.9 Bipolar disorder, unspecified; G47.30 Sleep apnea, unspecified; Z79.899 Other long term (current) drug therapy; Z91.010 Allergy to peanuts; Z91.09 Other allergy status, other than to drugs and biological substances; Z91.048 Other nonmedicinal substance allergy status; Z87.891 Personal history of nicotine dependence; Z99.89 Dependence on other enabling machines and devices
CPT/HCPCS: 99285 ×2; 96374 ×2; 36415; 94640 ×2; 93005; 83880; 80053; 83735; 84484; 85025; 85610; 85730; 71046; J2930

== ENCOUNTER 2019-05-22 19:19 | Emergency (ER) | payer MEDICARE ==
[2019-05-22 19:23] VITALS: TEMP 97.8
[2019-05-22] MEDS ORDERED: ALPRAZolam 0.5 MG TAB PO STA (19:35)
[2019-05-22] MEDS ORDERED: IPRATROPIUM-ALBUTEROL 3 ML NEB INHALATION STA ×2 (19:35→21:27)
[2019-05-22] MEDS ORDERED: oxyCODONE-APAP 7.5-325MG 1 EACH TAB PO STA (19:49)
[2019-05-22 20:08] LABS: Basophils % (A) 0 %; Eosinophils % (A) 0 %; HCT 35.7 % (39.0-53.0); HGB 11.9 gm/dL (13.0-17.5); Lymphocytes # (A) 0.3 k/uL (1.0-4.8); Lymphocytes % (A) 3 %; MCH 33.6 pg (25.0-35.0); MCHC 33.3 g/dL (31.0-37.0); MCV 100.7 fL (80.0-100.0); Macrocytosis Slight; Mean Platelet Volume 5.7; Monocytes # (A) 0.3 k/uL (0-1.0); Monocytes % (A) 4 %; Neutrophils # (A) 8.8 k/uL (1.3-7.7); Neutrophils % (A) 92 %; Platelet Count 100 k/uL (150-450); RBC 3.54 m/uL (4.30-5.90); RDW 14.5 % (11.5-15.5); WBC 9.6 k/uL (3.8-10.6)
[2019-05-22 20:18] LABS: ALT 48 U/L (21-72); AST 21 U/L (17-59); African American GFR (CKD) >90 (>60 ml/min/1.73 sqM); Albumin 3.3 g/dL (3.5-5.0); Alkaline Phosphatase 65 U/L (38-126); Anion Gap 6 mmol/L; Blood Urea Nitrogen 31 mg/dL (9-20); Calcium 8.7 mg/dL (8.4-10.2); Carbon Dioxide 23 mmol/L (22-30); Chloride 108 mmol/L (98-107); Glucose 100 mg/dL (74-99); Potassium 4.5 mmol/L (3.5-5.1); Sodium 137 mmol/L (137-145); Total Bilirubin 0.3 mg/dL (0.2-1.3); Total Protein 5.4 g/dL (6.3-8.2)
[2019-05-22 20:21] LABS: INR 0.9 (<1.2); Prothrombin Time 9.6 sec (9.0-12.0)
[2019-05-22 20:22] LABS: Partial Thromboplastin Time 19.5 sec (22.0-30.0)
--- NOTE | 2019-05-22 20:26 | ED ---
General Adult HPI - General Chief complaint: Shortness of Breath Stated complaint: SOB, Legs swelling Time Seen by Provider: 05/22/19 19:28 Source: patient Mode of arrival: ambulatory Limitations: no limitations - History of Present Illness Initial comments: 63-year-old male well-known to emergency department with history of COPD presenting for reevaluation of shortness of breath and bilateral leg swelling. Patient states that he was not sure if he was supposed to self swelling today states he was here earlier this morning and discharged home. He states that the swelling persisted. Patient states he did not take any medications today. Patient states that he continues to have shortness of breath he states that it does not feel increase in comparison with his baseline COPD. Patient states he does have some mild wheezing. States he has been at home treatments. Patient denies any hemoptysis or chest pain. Patient denies back pain headache dizziness syncope. Patient denies any other concerning signs or symptoms. Remaining abuse is negative. Upon arrival patient appears well no signs of acute distress. Vital signs stable. - Related Data Home Medications Medication Instructions Recorded Confirmed Montelukast [Singulair] 10 mg PO DAILY 03/16/14 05/22/19 Sertraline [Zoloft] 100 mg PO DAILY 11/04/18 05/22/19 buPROPion HCL [Wellbutrin XL] 150 mg PO DAILY 05/02/19 05/22/19 oxyCODONE-APAP 10-325MG [Percocet 1 tab PO QID 05/06/19 05/22/19 10-325 mg] Previous Rx's Medication Instructions Recorded Albuterol Inhaler [Ventolin Hfa 1 - 2 puff INHALATION RT-Q6H PRN 05/10/19 Inhaler] #1 inhaler Budesonide-Formot 160-4.5 Mcg 2 puff INHALATION RT-BID #1 inh 05/10/19 [Symbicort 160-4.5 Mcg Inhaler] Famotidine [Pepcid] 20 mg PO Q12HR #60 tab 05/10/19 Ipratropium-Albuterol Nebulize 3 ml INHALATION RT-QID #60 05/16/19 [Duoneb 0.5 mg-3 mg/3 ml Soln] ampul.neb Losartan/Hydrochlorothiazide 1 tab PO DAILY #30 tab 05/16/19 [Losartan-Hctz 50-12.5 mg Tab] amLODIPine [Norvasc] 10 mg PO DAILY #30 tablet 05/16/19 Allergies Allergy/AdvReac Type Severity Reaction Status Date / Time peanut Allergy ALLERGY Verified 05/22/19 19:53 TESTING pollen extracts Allergy ALLERGY Verified 05/22/19 19:53 TESTING DUST Allergy ALLERGY Uncoded 05/22/19 19:53 TESTING Review of Systems ROS Statement: Those systems with pertinent positive or pertinent negative responses have been documented in the HPI. ROS Other: All systems not noted in ROS Statement are negative. Past Medical History Past Medical History: Atrial Flutter, Asthma, Chest Pain / Angina, COPD, GERD/Reflux, Hypertension, Osteoarthritis (OA), Pneumonia, Sleep Apnea/CPAP/BIPAP Additional Past Medical History / Comment(s): Back problems History of Any Multi-Drug Resistant Organisms: None Reported Past Surgical History: Adenoidectomy, Bowel Resection, Cholecystectomy Additional Past Surgical History / Comment(s): Nasal Past Anesthesia/Blood Transfusion Reactions: Previous Problems w/ Anesthesia, Motion Sickness Additional Past Anesthesia/Blood Transfusion Reaction / Comment(s): states "during procedure of checking something on my left lung,I turned blue and I was brought right back out anesthesia and proc was cancelled". clausterphobia Past Psychological History: Anxiety, Bipolar, Depression, Panic Disorder Smoking Status: Former smoker Past Alcohol Use History: Heavy Past Drug Use History: Marijuana - Past Family History Mother Family Medical History: Asthma Additional Family Medical History / Comment(s): at age 62 Father Family Medical History: CVA/TIA Additional Family Medical History / Comment(s): at age 90 General Exam - General Exam Comments Initial Comments: General: The patient is awake and alert, in no distress, and does not appear acutely ill. Eye: Pupils are equal, round and reactive to light, extra-ocular movements are intact. No nystagmus. There is normal conjunctiva bilaterally. No signs of icterus. Ears, nose, mouth and throat: There are moist mucous membranes and no oral lesions. Neck: The neck is supple, there is no tenderness or JVD. Cardiovascular: There is a regular rate and rhythm. No murmur, rub or gallop is appreciated. Respiratory: Lungs are clear to auscultation, respirations are non-labored, breath sounds are equal. Mild expiratory wheeze, rhonchi. No stridor or rales. Gastrointestinal: Soft, non-distended, non-tender abdomen without masses or organomegaly noted. There is no rebound or guarding present. Musculoskeletal: Normal ROM, no tenderness. Strength 5/5. Sensation intact. Radial and DP pulses equal bilaterally 2+. Neurological: A&O x 3. CN II-XII intact grossly, There are no obvious motor or sensory deficits. Coordination appears grossly intact. Speech is normal. Skin: Skin is warm and dry and no rashes or lesions are noted. +1 pitting edema of the lower extremity bilaterally. Negative Tessie no calf or le masses/redness. Psychiatric: Cooperative, appropriate mood & affect, normal judgment. Limitations: no limitations Course Vital Signs 05/22/19 05/22/19 05/22/19 19:20 19:29 19:55 Temperature 97.8 F Pulse Rate 74 70 Respiratory 26 H 22 18 Rate Blood Pressure 191/98 O2 Sat by Pulse 99 Oximetry 05/22/19 05/22/19 05/22/19 20:04 20:34 21:46 Temperature Pulse Rate 76 83 73 Respiratory 18 20 18 Rate Blood Pressure 154/90 O2 Sat by Pulse 97 Oximetry EKG Findings - EKG Comments: EKG Findings:: Ventricular rate 67 beats minute, DE interval 126 most seconds, QRS worship and 36 months second QT/QTC 416/439 ms. Normal sinus rhythm with right bundle branch block his redemonstrated from previous EKG obtained on 1021 Medical Decision Making - Medical Decision Making 63-year-old male presents immersed her for evaluation of lower extremity edema. No changes from examination earlier this morning. EKG stable. BMP stable. Chest x-ray no findings of congestive heart failure. Patient given 2 DuoNeb treatments. Patient states he is breathing well. Denies chest pain. Patient appears well. Patient states he is agreeable to discharge. Discussed case at times by Dr. Latif was agreeable to discharge of patient care parameters discussed importance of primary care follow-up. Patient is discharged appearing well Patient was given a Percocet in the emergency department for chronic pain. - Lab Data Result diagrams: 05/22/19 19:43 05/22/19 19:43 Lab Results 05/22/19 05/22/19 05/22/19 Range/Units 19:43 19:43 19:43 WBC 9.6 (3.8-10.6) k/uL RBC 3.54 L (4.30-5.90) m/uL Hgb 11.9 L (13.0-17.5) gm/dL Hct 35.7 L (39.0-53.0) % MCV 100.7 H (80.0-100.0) fL MCH 33.6 (25.0-35.0) pg MCHC 33.3 (31.0-37.0) g/dL RDW 14.5 (11.5-15.5) % Plt Count 100 L (150-450) k/uL Neutrophils % 92 % Lymphocytes % 3 % Monocytes % 4 % Eosinophils % 0 % Basophils % 0 % Neutrophils # 8.8 H (1.3-7.7) k/uL Lymphocytes # 0.3 L (1.0-4.8) k/uL Monocytes # 0.3 (0-1.0) k/uL Eosinophils # 0.0 (0-0.7) k/uL Basophils # 0.0 (0-0.2) k/uL Macrocytosis Slight PT (9.0-12.0) sec INR (<1.2) APTT (22.0-30.0) sec Sodium 137 (137-145) mmol/L Potassium 4.5 (3.5-5.1) mmol/L Chloride 108 H (98-107) mmol/L Carbon Dioxide 23 (22-30) mmol/L Anion Gap 6 mmol/L BUN 31 H (9-20) mg/dL Creatinine 0.89 (0.66-1.25) mg/dL Est GFR (CKD-EPI)AfAm >90 (>60 ml/min/1.73 sqM) Est GFR (CKD-EPI)NonAf >90 (>60 ml/min/1.73 sqM) Glucose 100 H (74-99) mg/dL Calcium 8.7 (8.4-10.2) mg/dL Total Bilirubin 0.3 (0.2-1.3) mg/dL AST 21 (17-59) U/L ALT 48 (21-72) U/L Alkaline Phosphatase 65 (38-126) U/L Troponin I (0.000-0.034) ng/mL NT-Pro-B Natriuret Pep 291 pg/mL Total Protein 5.4 L (6.3-8.2) g/dL Albumin 3.3 L (3.5-5.0) g/dL 05/22/19 05/22/19 Range/Units 19:43 19:43 WBC (3.8-10.6) k/uL RBC (4.30-5.90) m/uL Hgb (13.0-17.5) gm/dL Hct (39.0-53.0) % MCV (80.0-100.0) fL MCH (25.0-35.0) pg MCHC (31.0-37.0) g/dL RDW (11.5-15.5) % Plt Count (150-450) k/uL Neutrophils % % Lymphocytes % % Monocytes % % Eosinophils % % Basophils % % Neutrophils # (1.3-7.7) k/uL Lymphocytes # (1.0-4.8) k/uL Monocytes # (0-1.0) k/uL Eosinophils # (0-0.7) k/uL Basophils # (0-0.2) k/uL Macrocytosis PT 9.6 (9.0-12.0) sec INR 0.9 (<1.2) APTT 19.5 L (22.0-30.0) sec Sodium (137-145) mmol/L Potassium (3.5-5.1) mmol/L Chloride (98-107) mmol/L Carbon Dioxide (22-30) mmol/L Anion Gap mmol/L BUN (9-20) mg/dL Creatinine (0.66-1.25) mg/dL Est GFR (CKD-EPI)AfAm (>60 ml/min/1.73 sqM) Est GFR (CKD-EPI)NonAf (>60 ml/min/1.73 sqM) Glucose (74-99) mg/dL Calcium (8.4-10.2) mg/dL Total Bilirubin (0.2-1.3) mg/dL AST (17-59) U/L ALT (21-72) U/L Alkaline Phosphatase (38-126) U/L Troponin I 0.018 (0.000-0.034) ng/mL NT-Pro-B Natriuret Pep pg/mL Total Protein (6.3-8.2) g/dL Albumin (3.5-5.0) g/dL Disposition Clinical Impression: Chronic shortness of breath, Lower extremity edema, COPD (chronic obstructive pulmonary disease) Disposition: HOME SELF-CARE Condition: Good Instructions (If sedation given, give patient instructions): COPD (Chronic Obstructive Pulmonary Disease) (ED), Leg Edema (ED) Additional Instructions: Please use medication as discussed. Please follow-up with family doctor in the next 2 days. Please return to emergency room if the symptoms increase or worsen or for any other concerns. Is patient prescribed a controlled substance at d/c from ED?: No Referrals: Deborha Shah III, MD [Primary Care Provider] - 1-2 days Time of Disposition: 21:53
[2019-05-22 20:34] VITALS: BP 154/90
--- NOTE | 2019-05-22 21:40 | XR ---
EXAMINATION TYPE: XR chest 2V DATE OF EXAM: 05/22/2019 COMPARISON: 05/22/2019 earlier exam INDICATION: Difficulty breathing TECHNIQUE: Frontal and lateral views of the chest are obtained. FINDINGS: The heart size is normal. The pulmonary vasculature is normal. The lungs are clear. IMPRESSION: 1. No acute pulmonary process.
[2019-05-22 21:48] VITALS: PULSE 73; RESP 18
== END 2019-05-22 22:07 | disposition home or self-care (01) ==
LOC: EC 19:19
DX: J44.9 Chronic obstructive pulmonary disease, unspecified (principal); R60.0 Localized edema; I48.92 Unspecified atrial flutter; I10 Essential (primary) hypertension; G47.30 Sleep apnea, unspecified; F41.0 Panic disorder [episodic paroxysmal anxiety]; F31.9 Bipolar disorder, unspecified; Z79.899 Other long term (current) drug therapy; Z91.010 Allergy to peanuts; Z91.048 Other nonmedicinal substance allergy status; Z91.09 Other allergy status, other than to drugs and biological substances; Z87.891 Personal history of nicotine dependence
CPT/HCPCS: 36415; 71046; 80053; 83880; 84484; 85025; 85610; 85730; 93005; 94640; 99285

== ENCOUNTER 2019-05-24 04:35 | Emergency (ER) | payer MEDICARE ==
[2019-05-24 04:48] VITALS: BP 114/72; TEMP 98
--- NOTE | 2019-05-24 05:08 | ED ---
General Adult HPI - General Stated complaint: SOB,feet swelling Time Seen by Provider: 05/24/19 04:38 - History of Present Illness Initial comments: Milo is a pleasant 63 yo male very well known to our emergency department. Patient has been evaluated multiple times this week due to swelling of his bilateral lower extremities. Patient returns today with persistent swelling of the lower extremities. Patient also suffers from chronic COPD with chronic wheezing. This is unchanged from his baseline. Patient denies any other complaints. - Related Data Home Medications Medication Instructions Recorded Confirmed Montelukast [Singulair] 10 mg PO DAILY 03/16/14 05/22/19 Sertraline [Zoloft] 100 mg PO DAILY 11/04/18 05/22/19 buPROPion HCL [Wellbutrin XL] 150 mg PO DAILY 05/02/19 05/22/19 oxyCODONE-APAP 10-325MG [Percocet 1 tab PO QID 05/06/19 05/22/19 10-325 mg] Previous Rx's Medication Instructions Recorded Albuterol Inhaler [Ventolin Hfa 1 - 2 puff INHALATION RT-Q6H PRN 05/10/19 Inhaler] #1 inhaler Budesonide-Formot 160-4.5 Mcg 2 puff INHALATION RT-BID #1 inh 05/10/19 [Symbicort 160-4.5 Mcg Inhaler] Famotidine [Pepcid] 20 mg PO Q12HR #60 tab 05/10/19 Ipratropium-Albuterol Nebulize 3 ml INHALATION RT-QID #60 05/16/19 [Duoneb 0.5 mg-3 mg/3 ml Soln] ampul.neb Losartan/Hydrochlorothiazide 1 tab PO DAILY #30 tab 05/16/19 [Losartan-Hctz 50-12.5 mg Tab] amLODIPine [Norvasc] 10 mg PO DAILY #30 tablet 05/16/19 Allergies Allergy/AdvReac Type Severity Reaction Status Date / Time peanut Allergy ALLERGY Verified 05/24/19 04:48 TESTING pollen extracts Allergy ALLERGY Verified 05/24/19 04:48 TESTING DUST Allergy ALLERGY Uncoded 05/24/19 04:48 TESTING Review of Systems ROS Statement: Those systems with pertinent positive or pertinent negative responses have been documented in the HPI. ROS Other: All systems not noted in ROS Statement are negative. Past Medical History Past Medical History: Atrial Flutter, Asthma, Chest Pain / Angina, COPD, GERD/Reflux, Hypertension, Osteoarthritis (OA), Pneumonia, Sleep Apnea/CPAP/BIPAP Additional Past Medical History / Comment(s): Back problems History of Any Multi-Drug Resistant Organisms: None Reported Past Surgical History: Adenoidectomy, Bowel Resection, Cholecystectomy Additional Past Surgical History / Comment(s): Nasal Past Anesthesia/Blood Transfusion Reactions: Previous Problems w/ Anesthesia, Motion Sickness Additional Past Anesthesia/Blood Transfusion Reaction / Comment(s): states "during procedure of checking something on my left lung,I turned blue and I was brought right back out anesthesia and proc was cancelled". clausterphobia Past Psychological History: Anxiety, Bipolar, Depression, Panic Disorder Smoking Status: Former smoker Past Alcohol Use History: Heavy Past Drug Use History: Marijuana - Past Family History Mother Family Medical History: Asthma Additional Family Medical History / Comment(s): at age 62 Father Family Medical History: CVA/TIA Additional Family Medical History / Comment(s): at age 90 General Exam - General Exam Comments Initial Comments: Physical Exam GENERAL: Patient is well-developed and well-nourished. Patient is nontoxic and well- hydrated and is in no distress. HENT: Normocephalic, Atraumatic. EYES: PERRL, EOMI PULMONARY: Wheezing in all lung pedroza CARDIOVASCULAR: There is a regular rate and rhythm without any murmurs gallops or rubs. 2+ pitting edema bilateral lower extremities ABDOMEN: Soft and nontender with normal bowel sounds. SKIN: Skin is clear with no lesions or rashes and otherwise unremarkable. : Deferred NEUROLOGIC: Patient is alert and oriented x3. Moving all extremities spontaneously MUSCULOSKELETAL: Normal extremities with adequate strength and full range of motion. PSYCHIATRIC: Normal psychiatric evaluation. Medical Decision Making - Medical Decision Making The patient was seen and evaluated history is obtained from the patient review of medical record bedside 63-year-old male with progressively worsening bilateral lower extremity edema, chronic COPD next and breathing treatment was ordered for COPD, Lasix will be ordered for lower extremity edema. Patient will be evaluated by his primary care physician later today as scheduled. Disposition Clinical Impression: Lower extremity edema Disposition: HOME SELF-CARE Condition: Stable Instructions (If sedation given, give patient instructions): Leg Edema (ED) Is patient prescribed a controlled substance at d/c from ED?: No Referrals: Deborah Shah III, MD [Primary Care Provider] - 1-2 days
[2019-05-24] MEDS ORDERED: FUROSEMIDE 40 MG TAB PO STA (05:30)
[2019-05-24] MEDS ORDERED: IPRATROPIUM-ALBUTEROL 3 ML NEB INHALATION STA (05:30)
[2019-05-24] MEDS ORDERED: Acetaminophen-Codeine 300-30mg TAB PO STA (05:57)
[2019-05-24 06:47] VITALS: PULSE 58; RESP 19
== END 2019-05-24 06:48 | disposition home or self-care (01) ==
LOC: EC 04:35
DX: R60.0 Localized edema (principal); J44.9 Chronic obstructive pulmonary disease, unspecified; F41.9 Anxiety disorder, unspecified; F31.9 Bipolar disorder, unspecified; F41.0 Panic disorder [episodic paroxysmal anxiety]; M19.90 Unspecified osteoarthritis, unspecified site; G47.30 Sleep apnea, unspecified; J30.1 Allergic rhinitis due to pollen; I25.2 Old myocardial infarction; Z79.899 Other long term (current) drug therapy; Z79.891 Long term (current) use of opiate analgesic; Z87.891 Personal history of nicotine dependence; Z91.048 Other nonmedicinal substance allergy status; Z91.010 Allergy to peanuts; Z99.89 Dependence on other enabling machines and devices
CPT/HCPCS: 94640; 99284

== ENCOUNTER 2019-05-25 06:40 | Emergency (ER) | payer MEDICARE ==
[2019-05-25 06:47] VITALS: RESP 18
[2019-05-25] MEDS ORDERED: FUROSEMIDE 10 MG/ML 4 ML VIAL IV STA (07:02)
--- NOTE | 2019-05-25 07:02 | ED ---
General Adult HPI - General Chief complaint: Shortness of Breath Stated complaint: Leg Swelling Time Seen by Provider: 05/25/19 06:49 Source: patient, RN notes reviewed Mode of arrival: wheelchair Limitations: no limitations - History of Present Illness Initial comments: 63-year-old male with a complicated past medical history including atrial flutter, asthma, COPD, GERD, hypertension, pneumonia, sleep apnea presents to the emergency department for a chief complaint of lower leg swelling. Patient states has been ongoing for several days. States he has been seen here multiple times for this and has started to take Lasix. Patient states that the swelling is seemed to worsen. States it is painful to walk. Patient also complaining of shortness of breath, denies chest pain.Patient has no other complaints at this time including chest pain, abdominal pain, nausea or vomiting, headache, or visual changes. - Related Data Home Medications Medication Instructions Recorded Confirmed Montelukast [Singulair] 10 mg PO DAILY 03/16/14 05/25/19 Sertraline [Zoloft] 100 mg PO DAILY 11/04/18 05/25/19 buPROPion HCL [Wellbutrin XL] 150 mg PO DAILY 05/02/19 05/25/19 oxyCODONE-APAP 10-325MG [Percocet 1 tab PO QID 05/06/19 05/25/19 10-325 mg] Previous Rx's Medication Instructions Recorded Albuterol Inhaler [Ventolin Hfa 1 - 2 puff INHALATION RT-Q6H PRN 05/10/19 Inhaler] #1 inhaler Budesonide-Formot 160-4.5 Mcg 2 puff INHALATION RT-BID #1 inh 05/10/19 [Symbicort 160-4.5 Mcg Inhaler] Famotidine [Pepcid] 20 mg PO Q12HR #60 tab 05/10/19 Ipratropium-Albuterol Nebulize 3 ml INHALATION RT-QID #60 05/16/19 [Duoneb 0.5 mg-3 mg/3 ml Soln] ampul.neb Losartan/Hydrochlorothiazide 1 tab PO DAILY #30 tab 05/16/19 [Losartan-Hctz 50-12.5 mg Tab] amLODIPine [Norvasc] 10 mg PO DAILY #30 tablet 05/16/19 Furosemide [Lasix] 10 mg PO DAILY #3 dose 05/25/19 Allergies Allergy/AdvReac Type Severity Reaction Status Date / Time peanut Allergy ALLERGY Verified 05/25/19 07:09 TESTING pollen extracts Allergy ALLERGY Verified 05/25/19 07:09 TESTING DUST Allergy ALLERGY Uncoded 05/25/19 07:09 TESTING Review of Systems ROS Statement: Those systems with pertinent positive or pertinent negative responses have been documented in the HPI. ROS Other: All systems not noted in ROS Statement are negative. Past Medical History Past Medical History: Atrial Flutter, Asthma, Chest Pain / Angina, COPD, YAN D/Reflux, Hypertension, Osteoarthritis (OA), Pneumonia, Sleep Apnea/CPAP/BIPAP Additional Past Medical History / Comment(s): Back problems History of Any Multi-Drug Resistant Organisms: None Reported Past Surgical History: Adenoidectomy, Bowel Resection, Cholecystectomy Additional Past Surgical History / Comment(s): Nasal Past Anesthesia/Blood Transfusion Reactions: Previous Problems w/ Anesthesia, Motion Sickness Additional Past Anesthesia/Blood Transfusion Reaction / Comment(s): states "during procedure of checking something on my left lung,I turned blue and I was brought right back out anesthesia and proc was cancelled". clausterphobia Past Psychological History: Anxiety, Bipolar, Depression, Panic Disorder Smoking Status: Former smoker Past Alcohol Use History: Heavy Past Drug Use History: Marijuana - Past Family History Mother Family Medical History: Asthma Additional Family Medical History / Comment(s): at age 62 Father Family Medical History: CVA/TIA Additional Family Medical History / Comment(s): at age 90 General Exam Limitations: no limitations General appearance: alert, in no apparent distress Head exam: Present: atraumatic, normocephalic, normal inspection Eye exam: Present: normal appearance, PERRL, EOMI. Absent: scleral icterus, conjunctival injection, periorbital swelling ENT exam: Present: normal exam, mucous membranes moist Neck exam: Present: normal inspection, full ROM. Absent: tenderness, men ingismus, lymphadenopathy Respiratory exam: Present: wheezes, rales. Absent: respiratory distress, rhonchi, stridor Cardiovascular Exam: Present: regular rate, normal rhythm, normal heart sounds. Absent: systolic murmur, diastolic murmur, rubs, gallop, clicks GI/Abdominal exam: Present: soft, normal bowel sounds. Absent: distended, tenderness, guarding, rebound, rigid Extremities exam: Present: normal capillary refill (cap refill < 2 seconds), pedal edema (2+ pitting edema, ), other (sensation intact in BLE, non- erythematous, not warm to touch) Course Vital Signs 05/25/19 06:44 Temperature 97.7 F Pulse Rate 102 H Respiratory 18 Rate Blood Pressure 131/71 O2 Sat by Pulse 97 Oximetry EKG Findings - EKG Comments: EKG Findings:: Normal sinus rhythm, right bundle branch block. Ventricular rate 65, pt int 132, QTC 434, no st elevation, compared to previous ekg 05/22/19 Medical Decision Making - Medical Decision Making On exam patient does have edema noted of the lower extremities. However there is no erythema or increased warmth consistent with cellulitis. No concern for infection. CBC and CMP is unremarkable. BNP is 322. Troponin is negative. Chest x-ray shows no acute pulmonary process. Lower extremity ultrasound is negative for DVT. Patient likely is dependent edema. Patient will be given a short course of Lasix. He will buy compression stockings and keep his feet elevated. He will follow-up with Dr. Shah in one to 2 days. He'll return if he has any worsening symptoms. - Lab Data Result diagrams: 05/25/19 07:20 05/25/19 07:20 Lab Results 05/25/19 05/25/19 05/25/19 Range/Units 07:20 07:20 07:20 WBC 9.1 (3.8-10.6) k/uL RBC 3.54 L (4.30-5.90) m/uL Hgb 11.1 L (13.0-17.5) gm/dL Hct 36.0 L (39.0-53.0) % MCV 101.6 H (80.0-100.0) fL MCH 31.2 (25.0-35.0) pg MCHC 30.7 L (31.0-37.0) g/dL RDW 14.8 (11.5-15.5) % Plt Count 115 L (150-450) k/uL Neutrophils % 82 % Lymphocytes % 11 % Monocytes % 4 % Eosinophils % 1 % Basophils % 0 % Neutrophils # 7.5 (1.3-7.7) k/uL Lymphocytes # 1.0 (1.0-4.8) k/uL Monocytes # 0.4 (0-1.0) k/uL Eosinophils # 0.1 (0-0.7) k/uL Basophils # 0.0 (0-0.2) k/uL Macrocytosis Slight PT (9.0-12.0) sec INR (<1.2) APTT (22.0-30.0) sec Sodium 140 (137-145) mmol/L Potassium 4.4 (3.5-5.1) mmol/L Chloride 110 H (98-107) mmol/L Carbon Dioxide 26 (22-30) mmol/L Anion Gap 4 mmol/L BUN 38 H (9-20) mg/dL Creatinine 1.24 (0.66-1.25) mg/dL Est GFR (CKD-EPI)AfAm 72 (>60 ml/min/1.73 sqM) Est GFR (CKD-EPI)NonAf 62 (>60 ml/min/1.73 sqM) Glucose 86 (74-99) mg/dL Calcium 8.6 (8.4-10.2) mg/dL Magnesium 2.1 (1.6-2.3) mg/dL Total Bilirubin 0.6 (0.2-1.3) mg/dL AST 28 (17-59) U/L ALT 58 (21-72) U/L Alkaline Phosphatase 67 (38-126) U/L Troponin I (0.000-0.034) ng/mL NT-Pro-B Natriuret Pep 322 pg/mL Total Protein 5.4 L (6.3-8.2) g/dL Albumin 3.3 L (3.5-5.0) g/dL 05/25/19 05/25/19 Range/Units 07:20 07:20 WBC (3.8-10.6) k/uL RBC (4.30-5.90) m/uL Hgb (13.0-17.5) gm/dL Hct (39.0-53.0) % MCV (80.0-100.0) fL MCH (25.0-35.0) pg MCHC (31.0-37.0) g/dL RDW (11.5-15.5) % Plt Count (150-450) k/uL Neutrophils % % Lymphocytes % % Monocytes % % Eosinophils % % Basophils % % Neutrophils # (1.3-7.7) k/uL Lymphocytes # (1.0-4.8) k/uL Monocytes # (0-1.0) k/uL Eosinophils # (0-0.7) k/uL Basophils # (0-0.2) k/uL Macrocytosis PT 9.4 (9.0-12.0) sec INR 0.9 (<1.2) APTT 20.0 L (22.0-30.0) sec Sodium (137-145) mmol/L Potassium (3.5-5.1) mmol/L Chloride (98-107) mmol/L Carbon Dioxide (22-30) mmol/L Anion Gap mmol/L BUN (9-20) mg/dL Creatinine (0.66-1.25) mg/dL Est GFR (CKD-EPI)AfAm (>60 ml/min/1.73 sqM) Est GFR (CKD-EPI)NonAf (>60 ml/min/1.73 sqM) Glucose (74-99) mg/dL Calcium (8.4-10.2) mg/dL Magnesium (1.6-2.3) mg/dL Total Bilirubin (0.2-1.3) mg/dL AST (17-59) U/L ALT (21-72) U/L Alkaline Phosphatase (38-126) U/L Troponin I <0.012 (0.000-0.034) ng/mL NT-Pro-B Natriuret Pep pg/mL Total Protein (6.3-8.2) g/dL Albumin (3.5-5.0) g/dL Disposition Clinical Impression: Dependent edema Disposition: HOME SELF-CARE Condition: Good Instructions (If sedation given, give patient instructions): Leg Edema (ED) Additional Instructions: please take Lasix as directed starting tomorrow. This was prescribed to [facility] on [address]. Use compression stockings. When sitting and be sure to keep legs elevated. Follow-up with Dr. Shah in 1-2 days. If you have any worsening symptoms return to the emergency department. Prescriptions: Furosemide [Lasix] 10 mg PO DAILY #3 dose Is patient prescribed a controlled substance at d/c from ED?: No Referrals: Deborah Shah III, MD [Primary Care Provider] - 1-2 days Time of Disposition: 09:05
[2019-05-25 07:41] LABS: Basophils % (A) 0 %; Eosinophils # (A) 0.1 k/uL (0-0.7); Eosinophils % (A) 1 %; HGB 11.1 gm/dL (13.0-17.5); Lymphocytes % (A) 11 %; MCH 31.2 pg (25.0-35.0); MCHC 30.7 g/dL (31.0-37.0); MCV 101.6 fL (80.0-100.0); Macrocytosis Slight; Mean Platelet Volume 6.1; Monocytes # (A) 0.4 k/uL (0-1.0); Monocytes % (A) 4 %; Neutrophils # (A) 7.5 k/uL (1.3-7.7); Neutrophils % (A) 82 %; Platelet Count 115 k/uL (150-450); RBC 3.54 m/uL (4.30-5.90); RDW 14.8 % (11.5-15.5); WBC 9.1 k/uL (3.8-10.6)
[2019-05-25 07:56] LABS: INR 0.9 (<1.2); Prothrombin Time 9.4 sec (9.0-12.0)
[2019-05-25] MEDS ORDERED: HYDROcodone/APAP 5-325MG 1 EACH TAB PO STA (08:01)
[2019-05-25 08:02] LABS: Albumin 3.3 g/dL (3.5-5.0); Calcium 8.6 mg/dL (8.4-10.2); Magnesium 2.1 mg/dL (1.6-2.3); Potassium 4.4 mmol/L (3.5-5.1); Total Bilirubin 0.6 mg/dL (0.2-1.3); Total Protein 5.4 g/dL (6.3-8.2)
--- NOTE | 2019-05-25 08:25 | US ---
EXAMINATION TYPE: US venous doppler duplex LE DATE OF EXAM: 05/25/2019 8:08 AM COMPARISON: NONE CLINICAL HISTORY: edema. No redness. Bilateral leg pain. Swelling. No hx blood clots or on blood thi nners. SIDE PERFORMED: Bilateral TECHNIQUE: The lower extremity deep venous system is examined utilizing real time linear array sonog heriberto with graded compression, doppler sonography and color-flow sonography. VESSELS IMAGED: External Iliac Vein (EIV) Common Femoral Vein Deep Femoral Vein Greater Saphenous Vein * Femoral Vein Popliteal Vein Small Saphenous Vein * Proximal Calf Veins (* superficial vessels) Limited visualization due to arterial plaque shadowing and edema. Subpar compressions due to abrahan ent tolerance. Right Leg: Negative for acute DVT Left Leg: Negative for acute DVT IMPRESSION: 1. Bilateral lower extremity ultrasound negative for deep venous thrombosis. 2. There is some limitation on the examination due to physical conditions.
--- NOTE | 2019-05-25 08:26 | XR ---
EXAMINATION TYPE: XR chest 2V DATE OF EXAM: 05/25/2019 COMPARISON: 05/22/2019 INDICATION: Difficulty breathing TECHNIQUE: Frontal and lateral views of the chest are obtained. FINDINGS: The heart size is normal. The pulmonary vasculature is normal. The lungs are clear. IMPRESSION: 1. No acute pulmonary process.
[2019-05-25] MEDS ORDERED: MORPHINE SULFATE 4 MG/ML SYRINGE IVP STA (09:04)
[2019-05-25 09:41] VITALS: BP 121/74; PULSE 89; TEMP 98.1
== END 2019-05-25 09:41 | disposition home or self-care (01) ==
LOC: EC 06:40
DX: R60.0 Localized edema (principal); F41.9 Anxiety disorder, unspecified; F31.9 Bipolar disorder, unspecified; I48.92 Unspecified atrial flutter; J44.9 Chronic obstructive pulmonary disease, unspecified; I25.2 Old myocardial infarction; K21.9 Gastro-esophageal reflux disease without esophagitis; I10 Essential (primary) hypertension; M19.90 Unspecified osteoarthritis, unspecified site; G47.30 Sleep apnea, unspecified; Z87.891 Personal history of nicotine dependence; Z91.010 Allergy to peanuts; J30.1 Allergic rhinitis due to pollen; Z91.048 Other nonmedicinal substance allergy status; Z99.89 Dependence on other enabling machines and devices; Z79.891 Long term (current) use of opiate analgesic; Z79.899 Other long term (current) drug therapy
CPT/HCPCS: 99285 ×3; 96374 ×2; 96375 ×2; 36415; 83880; 80053; 83735; 84484; 85025; 85610; 85730; 71046; 93970; J2270; J1940; 93005

== ENCOUNTER 2019-05-25 15:43 | Emergency (ER) | payer MEDICARE ==
[2019-05-25 15:52] VITALS: BP 141/80; PULSE 69; RESP 24; TEMP 97.8
--- NOTE | 2019-05-25 16:13 | ED ---
General Adult HPI - General Chief complaint: Shortness of Breath Stated complaint: GREGG Time Seen by Provider: 05/25/19 15:54 Source: patient Mode of arrival: ambulatory Limitations: no limitations - History of Present Illness Initial comments: Patient is a 63-year-old male with history of heart failure and COPD is presenting to emergency Department with a chief complaint of shortness of breath. Patient is well-known to the ED. Patient reports he was in the ED this morning with the same chief complaint along with pain and bilateral lower extremities, edema and a rash on the trunk, upper extremities and head. 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 Patient reports he went home and continued to have shortness of breath and bilateral lower extremity pain due to the swelling. Patient reports he contacted his primary care who told him to return to emergency department for reevaluation. Patient reports this is a recurrent issue for him and he continues to be seen in the ED for the same symptoms. Patient is requesting Dilaudid for the lower extremity pain. - Related Data Home Medications Medication Instructions Recorded Confirmed Montelukast [Singulair] 10 mg PO DAILY 03/16/14 05/25/19 Sertraline [Zoloft] 100 mg PO DAILY 11/04/18 05/25/19 buPROPion HCL [Wellbutrin XL] 150 mg PO DAILY 05/02/19 05/25/19 oxyCODONE-APAP 10-325MG [Percocet 1 tab PO QID 05/06/19 05/25/19 10-325 mg] Previous Rx's Medication Instructions Recorded Albuterol Inhaler [Ventolin Hfa 1 - 2 puff INHALATION RT-Q6H PRN 05/10/19 Inhaler] #1 inhaler Budesonide-Formot 160-4.5 Mcg 2 puff INHALATION RT-BID #1 inh 05/10/19 [Symbicort 160-4.5 Mcg Inhaler] Famotidine [Pepcid] 20 mg PO Q12HR #60 tab 05/10/19 Ipratropium-Albuterol Nebulize 3 ml INHALATION RT-QID #60 05/16/19 [Duoneb 0.5 mg-3 mg/3 ml Soln] ampul.neb Losartan/Hydrochlorothiazide 1 tab PO DAILY #30 tab 05/16/19 [Losartan-Hctz 50-12.5 mg Tab] amLODIPine [Norvasc] 10 mg PO DAILY #30 tablet 05/16/19 Furosemide [Lasix] 10 mg PO DAILY #3 dose 05/25/19 Allergies Allergy/AdvReac Type Severity Reaction Status Date / Time peanut Allergy ALLERGY Verified 05/25/19 16:22 TESTING pollen extracts Allergy ALLERGY Verified 05/25/19 16:22 TESTING DUST Allergy ALLERGY Uncoded 05/25/19 16:22 TESTING Review of Systems ROS Statement: Those systems with pertinent positive or pertinent negative responses have been documented in the HPI. ROS Other: All systems not noted in ROS Statement are negative. Past Medical History Past Medical History: Atrial Flutter, Asthma, Chest Pain / Angina, COPD, GERD/Reflux, Hypertension, Osteoarthritis (OA), Pneumonia, Sleep Apnea/CPAP/BIPAP Additional Past Medical History / Comment(s): Back problems History of Any Multi-Drug Resistant Organisms: None Reported Past Surgical History: Adenoidectomy, Bowel Resection, Cholecystectomy Additional Past Surgical History / Comment(s): Nasal Past Anesthesia/Blood Transfusion Reactions: Previous Problems w/ Anesthesia, Motion Sickness Additional Past Anesthesia/Blood Transfusion Reaction / Comment(s): states "during procedure of checking something on my left lung,I turned blue and I was brought right back out anesthesia and proc was cancelled". clausterphobia Past Psychological History: Anxiety, Bipolar, Depression, Panic Disorder Smoking Status: Former smoker Past Alcohol Use History: Heavy Past Drug Use History: Marijuana - Past Family History Mother Family Medical History: Asthma Additional Family Medical History / Comment(s): at age 62 Father Family Medical History: CVA/TIA Additional Family Medical History / Comment(s): at age 90 General Exam Limitations: no limitations General appearance: alert, in no apparent distress, obese Head exam: Present: atraumatic, normocephalic, normal inspection Eye exam: Present: normal appearance Pupils: Present: normal accommodation ENT exam: Present: normal exam, mucous membranes moist, normal external ear exam Neck exam: Present: normal inspection, full ROM Respiratory exam: Present: rhonchi (Bilateral). Absent: chest wall tenderness Cardiovascular Exam: Present: regular rate, normal rhythm, normal heart sounds Extremities exam: Present: normal inspection, tenderness (Tenderness in ross ateral lower extremities), normal capillary refill, pedal edema (+2 pitting edema), calf tenderness. Absent: full ROM Back exam: Present: normal inspection, full ROM Neurological exam: Present: alert, oriented X3 Psychiatric exam: Present: normal affect, normal mood Skin exam: Present: warm, intact, normal color, rash (Pustules on trunk, bilateral upper extremities and the head) Course Vital Signs 05/25/19 05/25/19 15:50 16:30 Temperature 97.8 F Pulse Rate 69 Respiratory 24 Rate Blood Pressure 141/80 O2 Sat by Pulse 96 95 Oximetry Medical Decision Making - Medical Decision Making Patient is 63-year-old male with history of heart failure and COPD is presenting to the emergency department with chief complaint of shortness of breath. Patient was discharged about 8 hours ago from the ED and given a prescription for Lasix. Patient filled the prescription. Patient reports he went home and was told to return as primary care. Patient states that nothing changed from the time he left this morning until now and is only complaining of pain in bilateral lower extremities due to the edema. Patient is requesting Dilaudid for pain control. The last chest x-ray is negative for effusion. Patient is satting well at 96 Even With his COPD. His last BNP was in the 300s. Patient is not have CHF at the moment. Patient was given IV Lasix 40 before he left. The rash was also exactly the same prior to him leaving. Walking pulse ox ranges from 93-96. I offered a patient Tylenol for the leg pain and he refuses. Patient has been to the ED 5 times in the last week for the exact same symptoms. Patient advised to follow-up outpatient for his management. Strict return parameters were thoroughly discussed with patient was understanding and agreeable. Case discussed Dr. Reynoso who is in agreement with the treatment plan. Disposition Clinical Impression: Shortness of breath, Lower extremity edema Disposition: HOME SELF-CARE Condition: Stable Instructions (If sedation given, give patient instructions): Heart Failure (DC) Additional Instructions: Please take the Lasix that was prescribed to this morning. Please return to emergency department if symptoms worsen. Please follow-up with your primary care. Is patient prescribed a controlled substance at d/c from ED?: No Referrals: Deborah Shah III, MD [Primary Care Provider] - 1-2 days Time of Disposition: 16:32
== END 2019-05-25 17:31 | disposition home or self-care (01) ==
LOC: EC 15:43
DX: R06.02 Shortness of breath (principal); R60.0 Localized edema; M79.604 Pain in right leg; M79.605 Pain in left leg; J44.9 Chronic obstructive pulmonary disease, unspecified; M19.90 Unspecified osteoarthritis, unspecified site; F41.9 Anxiety disorder, unspecified; F32.9 Major depressive disorder, single episode, unspecified; G47.30 Sleep apnea, unspecified; Z99.89 Dependence on other enabling machines and devices; Z86.79 Personal history of other diseases of the circulatory system; Z87.01 Personal history of pneumonia (recurrent); Z87.891 Personal history of nicotine dependence; Z82.5 Family history of asthma and other chronic lower respiratory diseases; Z79.891 Long term (current) use of opiate analgesic; Z79.899 Other long term (current) drug therapy; Z91.010 Allergy to peanuts; Z91.048 Other nonmedicinal substance allergy status; Z53.29 Procedure and treatment not carried out because of patient's decision for other reasons
CPT/HCPCS: 99285

== ENCOUNTER → 2019-10-04 | Outpatient (CLI) | payer MEDICARE, OTHER ==
--- NOTE | 2019-10-04 13:30 | MR ---
EXAMINATION TYPE: MR kierstenine/lspine wo con DATE OF EXAM: 10/04/2019 COMPARISON: Lumbar and cervical spine x-rays dated 01/02/2019 HISTORY: Cervicalgia; Low back pain TECHNIQUE: Multiplanar, multisequence imaging of the cervical and lumbar spine is performed without I V contrast. FINDINGS: Patient motion limits evaluation. Cervical spine: There is a reversal of the usual cervical lordosis from C3 through C6. There is multilevel interverte bral disc space narrowing. Minimal retrolisthesis of C4 and C5 and C5 on C6 that is likely on a degen erative basis. Vertebral body heights are maintained. Evaluation of the cervical spinal cord signal i s limited given patient motion. C2-C3: There is a small central disc herniation and left-sided facet arthropathy creating moderate le ft neural foraminal narrowing. Spinal canal and right neuroforamen are patent. C3-C4: There is uncovertebral hypertrophy and facet arthropathy on the left severely narrowing the le ft neural foramen. There is a small central disc herniation minimally narrowing the ventral subarachn oid space. Right neuroforamen is patent. C4-C5: There is a broad-based disc bulge, facet arthropathy and ligamentum flavum flavum buckling. Un covertebral hypertrophy is also seen creating moderate right and mild left neural foraminal narrowing . There is also minimal narrowing of the ventral subarachnoid space. C5-C6: There is a central disc herniation and uncovertebral hypertrophy with facet arthropathy creati ng moderate bilateral neural foraminal narrowing and mild to moderate spinal canal stenosis. Ligament um flavum buckling is also seen. C6-C7: Broad-based disc bulge and uncovertebral hypertrophy are seen creating mild bilateral neural f oraminal narrowing. Ligamentum flavum buckling is also noted. No significant spinal canal stenosis. C7-T1: Disc desiccation without spinal canal stenosis nor neural foraminal narrowing. Lumbar spine: There is a T2/T1 hypointense 5 mm stable probable bone island that is dense on the x-ray of 01/12/2019 and unchanged in size of the L2 vertebral body. Remaining bone marrow signal appears unremarkable. R udimentary disc at S1-S2. Conus medullaris terminates at L2. Vertebral body heights and alignment of the lumbar spine are maintained. L1-L2: Disc desiccation without spinal canal stenosis nor neural foraminal narrowing. L2-L3: Disc desiccation without spinal canal stenosis or neural foraminal narrowing. Minimal facet ar thropathy. L3-L4: Facet arthropathy and ligamentum flavum buckling as well as a broad-based disc bulge without s andrey canal stenosis nor neural foraminal narrowing. L4-L5: There is a broad-based disc bulge without significant neural foraminal narrowing. Ligamentum f lavum buckling and facet arthropathy are seen. No significant spinal canal stenosis. L5-S1: There is a broad-based disc bulge resulting in mild bilateral neural foraminal narrowing witho ut spinal canal stenosis. Facet arthropathy is also seen. IMPRESSION: 1. Small central disc herniation at C2-C3 without spinal canal stenosis. 2. Small central disc herniation at C3-C4 creating mild spinal canal stenosis. 3. Central disc herniation at C5-C6 in combination with degenerative change contributes to mild to mo derate spinal canal stenosis. 4. Moderate to severe degenerative disc disease of the cervical spine creating variable degrees of ne ural foraminal narrowing most severe at C3-C4 on the left. This also creates mild spinal canal stenos is at C4-C5. 5. Probable bone island measuring 5 mm of L2. 6. Mild bilateral neural foraminal narrowing at L5-S1 from a broad-based disc bulge. No focal disc he rniation of the lumbar spine.
== END | disposition home or self-care (01) ==
LOC: RADMRIMAIN 11:36
PROVIDERS: ATTEND Physician Assistant
DX: M48.02 Spinal stenosis, cervical region (principal); M48.07 Spinal stenosis, lumbosacral region; M50.21 Other cervical disc displacement, high cervical region; M51.27 Other intervertebral disc displacement, lumbosacral region; M50.31 Other cervical disc degeneration, high cervical region; M47.812 Spondylosis without myelopathy or radiculopathy, cervical region
CPT/HCPCS: 72141; 72148

== ENCOUNTER 2019-11-15 02:42 | Emergency (ER) | payer MEDICARE, OTHER ==
[2019-11-15] MEDS ORDERED: oxyCODONE-APAP 10-325MG 1 EACH TAB PO STA (03:33)
[2019-11-15 03:38] LABS: Sodium 138 mmol/L (137-145)
[2019-11-15 03:41] LABS: ALT 21 U/L (4-49); AST 41 U/L (17-59); African American GFR (CKD) 90 (>60 ml/min/1.73 sqM); Albumin 4.4 g/dL (3.5-5.0); Alkaline Phosphatase 82 U/L (38-126); Anion Gap 8 mmol/L; Blood Urea Nitrogen 24 mg/dL (9-20); C Reactive Protein <5.0 mg/L (<10.0); Carbon Dioxide 22 mmol/L (22-30); Chloride 108 mmol/L (98-107); Glucose 128 mg/dL (74-99); LDH 835 U/L (313-618); Magnesium 1.9 mg/dL (1.6-2.3); Non-African American GFR(CKD) 78 (>60 ml/min/1.73 sqM); Total Protein 6.9 g/dL (6.3-8.2)
--- NOTE | 2019-11-15 03:42 | ED ---
SOB HPI - General Chief Complaint: Shortness of Breath Stated Complaint: COPD,SOB Time Seen by Provider: 11/15/19 02:44 Source: patient Mode of arrival: ambulatory Limitations: no limitations - History of Present Illness Initial Comments: This patient is a 63-year-old man with history of COPD, who presents to be evaluated for cough, shortness of breath, chest pain. Patient states that he was seen by Dr. Granados for his COPD and was recently started on a course of steroids but has only had a of that. The patient was concerned because she had exposure to 2 brothers who recently (within the past month), he states that one brother of cancer but the other did of coronavirus related illness. The patient has not noted fever or chills. He has had coughing and dyspnea. He states that secondary to the cough is having bilateral chest pains but states that this is usual when he is coughing a lot. His sputum has not changed. Patient states that he feels like his sense of smell has decreased and therefore he was concerned. MD Complaint: shortness of breath, cough -: days(s) Consistency: constant Improves With: nothing Worsens With: nothing Known History Of: COPD Associated Symptoms: chest pain, cough Treatments Prior to Arrival: bronchodilator - Related Data Home Oxygen Therapy: Yes Home Medications Medication Instructions Recorded Confirmed Montelukast [Singulair] 10 mg PO DAILY 03/16/14 09/04/19 Sertraline [Zoloft] 100 mg PO QAM 11/04/18 09/04/19 buPROPion HCL [Wellbutrin XL] 150 mg PO QAM 05/02/19 09/04/19 oxyCODONE-APAP 10-325MG [Percocet 1 tab PO Q4-6H 05/06/19 09/04/19 10-325 mg] Albuterol Nebulized [Ventolin 2.5 mg INHALATION Q6H PRN 09/04/19 09/04/19 Nebulized] DULoxetine HCL [Cymbalta] 20 mg PO DAILY 09/04/19 09/04/19 Fluticasone/Umeclidin/Vilanter 2 inhalation INHALATION QAM 09/04/19 09/04/19 [Trelegy Ellipta 100-62.5-25] Metoprolol Tartrate [Lopressor] 25 mg PO QAM 09/04/19 09/04/19 amLODIPine [Norvasc] 10 mg PO QAM 09/04/19 09/04/19 Previous Rx's Medication Instructions Recorded Albuterol Inhaler (Bulk) [Ventolin 1 - 2 puff INHALATION RT-Q6H PRN 05/10/19 Hfa Inhaler (Bulk)] #1 inhaler Azithromycin [Zithromax Z-pack] 250 mg PO DIRECTED #6 tab 11/15/19 Allergies Allergy/AdvReac Type Severity Reaction Status Date / Time peanut Allergy ALLERGY Verified 11/15/19 02:48 TESTING pollen extracts Allergy ALLERGY Verified 11/15/19 02:48 TESTING DUST Allergy ALLERGY Uncoded 11/15/19 02:48 TESTING Review of Systems ROS Statement: Those systems with pertinent positive or pertinent negative responses have been documented in the HPI. ROS Other: All systems not noted in ROS Statement are negative. Constitutional: Denies: fever, chills Respiratory: Reports: as per HPI, cough, dyspnea, wheezes. Denies: hemoptysis Cardiovascular: Reports: as per HPI, chest pain Gastrointestinal: Denies: abdominal pain, vomiting, diarrhea Genitourinary: Denies: dysuria, hematuria Musculoskeletal: Denies: back pain Skin: Denies: rash Neurological: Denies: headache, weakness Past Medical History Past Medical History: Atrial Flutter, Asthma, Chest Pain / Angina, COPD, GERD/Reflux, Hypertension, Osteoarthritis (OA), Pneumonia, Sleep Ap karina/CPAP/BIPAP Additional Past Medical History / Comment(s): Back problems, no CPAP use. History of Any Multi-Drug Resistant Organisms: None Reported Past Surgical History: Adenoidectomy, Bowel Resection, Cholecystectomy Additional Past Surgical History / Comment(s): Nasal surgery. Past Anesthesia/Blood Transfusion Reactions: Previous Problems w/ Anesthesia, Motion Sickness Additional Past Anesthesia/Blood Transfusion Reaction / Comment(s): States "during procedure of checking something on my left lung, I turned blue and I was brought right back out anesthesia and procedure was cancelled". Clausterphobia. Past Psychological History: Anxiety, Bipolar, Depression, Panic Disorder Smoking Status: Former smoker Past Alcohol Use History: Heavy Past Drug Use History: Marijuana - Past Family History Mother Family Medical History: Asthma Additional Family Medical History / Comment(s): at age 62 Father Family Medical History: CVA/TIA Additional Family Medical History / Comment(s): at age 90 General Exam Limitations: no limitations General appearance: alert, in no apparent distress Head exam: Present: atraumatic, normocephalic Eye exam: Present: normal appearance. Absent: scleral icterus, conjunctival injection ENT exam: Present: normal oropharynx Respiratory exam: Present: wheezes, chest wall tenderness. Absent: respiratory distress, rales, rhonchi, stridor Cardiovascular Exam: Present: regular rate, normal heart sounds. Absent: normal rhythm, bradycardia, tachycardia, irregular rhythm, systolic murmur, diastolic murmur, rubs, gallop GI/Abdominal exam: Present: soft, normal bowel sounds. Absent: distended, tenderness, guarding, rebound, rigid Extremities exam: Present: normal inspection, normal capillary refill. Absent: pedal edema, calf tenderness Back exam: Present: normal inspection. Absent: CVA tenderness (R), CVA tenderness (L) Neurological exam: Present: alert Skin exam: Present: warm, dry, intact, normal color. Absent: rash Course Vital Signs 11/15/19 11/15/19 11/15/19 02:43 03:13 03:30 Temperature 98 F Pulse Rate 87 58 L Respiratory 32 H 24 20 Rate Blood Pressure 206/89 168/84 O2 Sat by Pulse 98 95 Oximetry 11/15/19 11/15/19 11/15/19 04:00 05:00 06:00 Temperature Pulse Rate 56 L 55 L 60 Respiratory 18 18 18 Rate Blood Pressure 150/79 147/85 152/81 O2 Sat by Pulse 94 L 97 96 Oximetry 11/15/19 06:13 Temperature 98.4 F Pulse Rate Respiratory Rate Blood Pressure O2 Sat by Pulse Oximetry Medical Decision Making - Medical Decision Making Patient is 63-year-old man with history of COPD presenting due to possible exposure to [place] naris. His workup here is negative at this point for coronavirus. Patient feeling better following MDI. Patient currently taking Augmentin. Did discuss appropriate follow-up and return parameters. Also given the reported results with azithromycin I have prescribed this to use should he have any change at all including fever worsening dyspnea or other symptoms. Also maintain low index to return for reevaluation and appropriate follow-up. - Lab Data Result diagrams: 11/15/19 03:00 11/15/19 03:00 Lab Results 11/15/19 11/15/19 11/15/19 Range/Units 03:00 03:00 03:00 WBC 9.9 (3.8-10.6) k/uL RBC 4.20 L (4.30-5.90) m/uL Hgb 13.0 (13.0-17.5) gm/dL Hct 39.1 (39.0-53.0) % MCV 93.0 (80.0-100.0) fL MCH 31.0 (25.0-35.0) pg MCHC 33.3 (31.0-37.0) g/dL RDW 14.2 (11.5-15.5) % Plt Count 123 L (150-450) k/uL Neutrophils % 78 % Lymphocytes % 14 % Monocytes % 6 % Eosinophils % 1 % Basophils % 0 % Neutrophils # 7.8 H (1.3-7.7) k/uL Lymphocytes # 1.4 (1.0-4.8) k/uL Monocytes # 0.6 (0-1.0) k/uL Eosinophils # 0.1 (0-0.7) k/uL Basophils # 0.0 (0-0.2) k/uL PT (9.0-12.0) sec INR (<1.2) APTT (22.0-30.0) sec D-Dimer (<0.60) mg/L FEU Sodium 138 (137-145) mmol/L Potassium 4.6 (3.5-5.1) mmol/L Chloride 108 H (98-107) mmol/L Carbon Dioxide 22 (22-30) mmol/L Anion Gap 8 mmol/L BUN 24 H (9-20) mg/dL Creatinine 1.03 (0.66-1.25) mg/dL Est GFR (CKD-EPI)AfAm 90 (>60 ml/min/1.73 sqM) Est GFR (CKD-EPI)NonAf 78 (>60 ml/min/1.73 sqM) Glucose 128 H (74-99) mg/dL Plasma Lactic Acid Aman 1.8 (0.7-2.0) mmol/L Calcium 9.0 (8.4-10.2) mg/dL Magnesium 1.9 (1.6-2.3) mg/dL Ferritin 31.9 (22.0-322.0) ng/mL Total Bilirubin 1.0 (0.2-1.3) mg/dL AST 41 (17-59) U/L ALT 21 (4-49) U/L Alkaline Phosphatase 82 (38-126) U/L Lactate Dehydrogenase 835 H (313-618) U/L C-Reactive Protein <5.0 (<10.0) mg/L Total Protein 6.9 (6.3-8.2) g/dL Albumin 4.4 (3.5-5.0) g/dL Procalcitonin (0.02-0.09) ng/mL Coronavirus (PCR) (Not Detectd) Influenza Type A RNA (Not Detectd) Influenza Type B (PCR) (Not Detectd) 11/15/19 11/15/19 11/15/19 Range/Units 03:00 03:20 04:24 WBC (3.8-10.6) k/uL RBC (4.30-5.90) m/uL Hgb (13.0-17.5) gm/dL Hct (39.0-53.0) % MCV (80.0-100.0) fL MCH (25.0-35.0) pg MCHC (31.0-37.0) g/dL RDW (11.5-15.5) % Plt Count (150-450) k/uL Neutrophils % % Lymphocytes % % Monocytes % % Eosinophils % % Basophils % % Neutrophils # (1.3-7.7) k/uL Lymphocytes # (1.0-4.8) k/uL Monocytes # (0-1.0) k/uL Eosinophils # (0-0.7) k/uL Basophils # (0-0.2) k/uL PT 9.7 (9.0-12.0) sec INR 0.9 (<1.2) APTT 20.5 L (22.0-30.0) sec D-Dimer 0.25 (<0.60) mg/L FEU Sodium (137-145) mmol/L Potassium (3.5-5.1) mmol/L Chloride (98-107) mmol/L Carbon Dioxide (22-30) mmol/L Anion Gap mmol/L BUN (9-20) mg/dL Creatinine (0.66-1.25) mg/dL Est GFR (CKD-EPI)AfAm (>60 ml/min/1.73 sqM) Est GFR (CKD-EPI)NonAf (>60 ml/min/1.73 sqM) Glucose (74-99) mg/dL Plasma Lactic Acid Aman (0.7-2.0) mmol/L Calcium (8.4-10.2) mg/dL Magnesium (1.6-2.3) mg/dL Ferritin (22.0-322.0) ng/mL Total Bilirubin (0.2-1.3) mg/dL AST (17-59) U/L ALT (4-49) U/L Alkaline Phosphatase (38-126) U/L Lactate Dehydrogenase (313-618) U/L C-Reactive Protein (<10.0) mg/L Total Protein (6.3-8.2) g/dL Albumin (3.5-5.0) g/dL Procalcitonin 0.04 (0.02-0.09) ng/mL Coronavirus (PCR) Not Detected (Not Detectd) Influenza Type A RNA Not Detected (Not Detectd) Influenza Type B (PCR) Not Detected (Not Detectd) - EKG Data -: EKG Interpreted by In EKG shows normal: sinus rhythm, axis (Normal), intervals (QRS duration 144 ms, prolonged consistent with the right bundle branch block. NV interval 148 ms, QTC 479 ms, both normal.), QRS complexes (Right bundle-branch block pattern.), S T-T waves (Normal) Rate: normal (Rate 67 bpm) Disposition Clinical Impression: COPD exacerbation Disposition: HOME SELF-CARE Condition: Fair Instructions (If sedation given, give patient instructions): Chronic Bronchitis (ED) Prescriptions: Azithromycin [Zithromax Z-pack] 250 mg PO DIRECTED #6 tab Is patient prescribed a controlled substance at d/c from ED?: No Referrals: Deborah Shah III, MD [Primary Care Provider] - 1-2 days
[2019-11-15 03:48] LABS: Potassium 4.6 mmol/L (3.5-5.1)
[2019-11-15 03:59] LABS: Basophils % (A) 0 %; Eosinophils # (A) 0.1 k/uL (0-0.7); Eosinophils % (A) 1 %; HCT 39.1 % (39.0-53.0); Lymphocytes # (A) 1.4 k/uL (1.0-4.8); Lymphocytes % (A) 14 %; MCHC 33.3 g/dL (31.0-37.0); Mean Platelet Volume 9.1; Monocytes # (A) 0.6 k/uL (0-1.0); Monocytes % (A) 6 %; Neutrophils # (A) 7.8 k/uL (1.3-7.7); Neutrophils % (A) 78 %; Platelet Count 123 k/uL (150-450); RDW 14.2 % (11.5-15.5); WBC 9.9 k/uL (3.8-10.6)
--- NOTE | 2019-11-15 04:23 | XR ---
EXAMINATION TYPE: XR chest 1V portable DATE OF EXAM: 11/15/2019 COMPARISON: 05/25/2019 HISTORY: Difficulty breathing TECHNIQUE: FINDINGS: Heart is normal. Lungs are clear of infiltrate. There is no heart failure. There are chest leads. Bony thorax appears intact. IMPRESSION: No active cardiopulmonary disease. No change.
[2019-11-15 04:30] VITALS: RESP 18
[2019-11-15] MEDS ORDERED: ALBUTEROL NEBULIZED 2.5 MG/3 ML INHALATION STA (05:12)
[2019-11-15] MEDS ORDERED: predniSONE 20 MG TAB PO STA (05:12)
[2019-11-15] MEDS ORDERED: AZITHROMYCIN 500 MG TAB PO STA (05:13)
[2019-11-15 05:16] LABS: D-Dimer 0.25 mg/L FEU (<0.60); INR 0.9 (<1.2); Prothrombin Time 9.7 sec (9.0-12.0)
[2019-11-15] MEDS ORDERED: ALBUTEROL HFA INHALER INHALATION STA (05:16)
[2019-11-15 05:19] LABS: Partial Thromboplastin Time 20.5 sec (22.0-30.0)
[2019-11-15] MEDS ORDERED: KETOROLAC 30 MG/ML 1 ML VIAL IVP STA (05:20)
[2019-11-15 06:05] VITALS: BP 152/81; PULSE 60
[2019-11-15 06:15] VITALS: TEMP 98.4
[2019-11-15 10:29] LABS: Ferritin 31.9 ng/mL (22.0-322.0)
== END 2019-11-15 06:15 | disposition home or self-care (01) ==
LOC: EC 02:42
DX: Z03.818 Encounter for observation for suspected exposure to other biological agents ruled out (principal); J44.1 Chronic obstructive pulmonary disease with (acute) exacerbation; I48.92 Unspecified atrial flutter; I10 Essential (primary) hypertension; M19.90 Unspecified osteoarthritis, unspecified site; F32.9 Major depressive disorder, single episode, unspecified; F41.0 Panic disorder [episodic paroxysmal anxiety]; G47.30 Sleep apnea, unspecified; Z99.89 Dependence on other enabling machines and devices; Z87.01 Personal history of pneumonia (recurrent); Z82.5 Family history of asthma and other chronic lower respiratory diseases; Z87.891 Personal history of nicotine dependence; Z79.891 Long term (current) use of opiate analgesic; Z79.51 Long term (current) use of inhaled steroids; Z79.899 Other long term (current) drug therapy; Z91.010 Allergy to peanuts; Z91.048 Other nonmedicinal substance allergy status; Z53.8 Procedure and treatment not carried out for other reasons
CPT/HCPCS: 99285; 96374; 36415; 94640; 93005; 85379; 80053; 82728; 83605; 83615; 83735; 85025; 85610; 85730; 86140; 87040; 87502; 84145; 87635; 71045; J1885; J7512

== ENCOUNTER 2019-11-18 01:54 | Observation (INO) | payer MEDICARE, OTHER ==
[2019-11-18] MEDS ORDERED: IPRATROPIUM-ALBUTEROL 3 ML NEB INHALATION STA (02:18)
[2019-11-18] MEDS ORDERED: SODIUM CHLORIDE 0.9% 1,000 ML IV STA (02:18)
[2019-11-18] MEDS ORDERED: methylPREDNISolone SOD SUCCI 125 MG/2 ML VIAL IV STA (02:18)
[2019-11-18] MEDS ORDERED: LORazepam 2 MG/ML INJ IV STA (02:18)
[2019-11-18] MEDS ORDERED: HYDROmorphone 1 MG/ML 1 ML SYRINGE IVP STA ×2 (02:21→10:34)
--- NOTE | 2019-11-18 02:30 | ED ---
SOB HPI - General Chief Complaint: Shortness of Breath Stated Complaint: GREGG Time Seen by Provider: 11/18/19 02:05 Source: patient, RN notes reviewed, old records reviewed Limitations: no limitations - History of Present Illness Initial Comments: This is a 61-year-old male well-known to this facility for evaluation of shortness of breath and cough worsening shortness of breath, patient has concern for his chest pain as well. Multiple recent ER visits on discharge with no imp rovement. Patient's been on both antibiotic steroids and breathing treatments at home since he can't get his breathing under control mild nausea no active vomiting. He does deny any fevers. Patient concern that he may have pneumonia or may have been exposed cervical entered covert she admits to anxiety of this MD Complaint: shortness of breath, cough, anxiety -: days(s) Severity: moderate Severity scale (1-10): 5 Quality: aching, throbbing Consistency: intermittent Improves With: nothing Worsens With: nothing Context: recent URI, recent illness Associated Symptoms: chest pain, pain with inspiration, cough, sputum production - Related Data Home Medications Medication Instructions Recorded Confirmed Montelukast [Singulair] 10 mg PO DAILY 03/16/14 11/18/19 Sertraline [Zoloft] 100 mg PO QAM 11/04/18 11/18/19 buPROPion HCL [Wellbutrin XL] 150 mg PO BID 05/02/19 11/18/19 Albuterol Nebulized [Ventolin 2.5 mg INHALATION RT-Q6H PRN 09/04/19 11/18/19 Nebulized] Fluticasone/Umeclidin/Vilanter 1 puff INHALATION RT-DAILY 09/04/19 11/18/19 [Trelegy Ellipta 100-62.5-25] Metoprolol Tartrate [Lopressor] 25 mg PO QAM 09/04/19 11/18/19 Azithromycin [Zithromax Z-pack] See Taper PO DIRECTED 11/18/19 11/18/19 Baclofen 10 mg PO TID-W/MEALS PRN 11/18/19 11/18/19 Buprenorphine HCl [Belbuca] 150 mcg BUCCAL Q12H 11/18/19 11/18/19 Cetirizine HCl 10 mg PO DAILY 11/18/19 11/18/19 Diclofenac Sodium [Voltaren] 75 mg PO BID 11/18/19 11/18/19 Finasteride [Proscar] 5 mg PO DAILY 11/18/19 11/18/19 Tamsulosin HCl [Flomax] 0.4 mg PO DAILY 11/18/19 11/18/19 hydrALAZINE HCL 25 mg PO BID-W/MEALS 11/18/19 11/18/19 oxyCODONE-APAP 7.5-325MG [Percocet 1 tab PO Q6HR PRN 11/18/19 11/18/19 7.5-325 mg] Previous Rx's Medication Instructions Recorded Albuterol Inhaler (Bulk) [Ventolin 1 - 2 puff INHALATION RT-Q6H PRN 05/10/19 Hfa Inhaler (Bulk)] #1 inhaler Omeprazole [PriLOSEC] 40 mg PO AC-BRKFST #14 capsule. 11/19/19 amLODIPine [Norvasc] 10 mg PO DAILY #0 11/19/19 predniSONE 10 mg PO DAILY #30 tab 11/19/19 Allergies Allergy/AdvReac Type Severity Reaction Status Date / Time peanut Allergy ALLERGY Verified 11/18/19 08:18 TESTING pollen extracts Allergy ALLERGY Verified 11/18/19 08:18 TESTING DUST Allergy ALLERGY Uncoded 11/18/19 08:18 TESTING Review of Systems ROS Statement: Those systems with pertinent positive or pertinent negative responses have been documented in the HPI. ROS Other: All systems not noted in ROS Statement are negative. Past Medical History Past Medical History: Atrial Flutter, Asthma, Chest Pain / Angina, COPD, GERD/Reflux, Hypertension, Osteoarthritis (OA), Pneumonia, Sleep Apnea/CPAP/BIPAP Additional Past Medical History / Comment(s): Back problems, no CPAP use. History of Any Multi-Drug Resistant Organisms: None Reported Past Surgical History: Adenoidectomy, Bowel Resection, Cholecystectomy Additional Past Surgical History / Comment(s): Nasal surgery. Past Anesthesia/Blood Transfusion Reactions: Previous Problems w/ Anesthesia, Motion Sickness Additional Past Anesthesia/Blood Transfusion Reaction / Comment(s): States "during procedure of checking something on my left lung, I turned blue and I was brought right back out anesthesia and procedure was cancelled". Segundo henderson Past Psychological History: Anxiety, Bipolar, Depression, Panic Disorder Smoking Status: Former smoker Past Alcohol Use History: Heavy Past Drug Use History: Marijuana - Past Family History Mother Family Medical History: Asthma Additional Family Medical History / Comment(s): at age 62 Father Family Medical History: CVA/TIA Additional Family Medical History / Comment(s): at age 90 General Exam Limitations: no limitations General appearance: alert, in no apparent distress, anxious Head exam: Present: atraumatic, normocephalic, normal inspection Eye exam: Present: normal appearance, PERRL, EOMI. Absent: scleral icterus, conjunctival injection, periorbital swelling ENT exam: Present: normal exam, mucous membranes moist Neck exam: Present: normal inspection. Absent: tenderness, meningismus, lymphadenopathy Respiratory exam: Present: wheezes, chest wall tenderness, accessory muscle use, decreased breath sounds, prolonged expiratory. Absent: respiratory distress, rales, rhonchi, stridor Cardiovascular Exam: Present: regular rate, normal rhythm, normal heart sounds. Absent: systolic murmur, diastolic murmur, rubs, gallop, clicks GI/Abdominal exam: Present: soft, normal bowel sounds. Absent: distended, tenderness, guarding, rebound, rigid Extremities exam: Present: normal inspection, full ROM, normal capillary refill. Absent: tenderness, pedal edema, joint swelling, calf tenderness Back exam: Present: normal inspection Neurological exam: Present: alert, oriented X3, CN II-XII intact Psychiatric exam: Present: normal affect, normal mood Skin exam: Present: warm, dry, intact, normal color. Absent: rash Course Vital Signs 11/18/19 11/18/19 11/18/19 01:58 02:37 02:40 Temperature 98.1 F Pulse Rate 74 65 Pulse Rate [ Pulse Oximetery ] Respiratory 18 16 18 Rate Blood Pressure 179/87 142/88 Blood Pressure [Left Arm] O2 Sat by Pulse 98 92 L 96 Oximetry 11/18/19 11/18/19 11/18/19 03:00 03:10 03:25 Temperature Pulse Rate 80 61 80 Pulse Rate [ Pulse Oximetery ] Respiratory 18 Rate Blood Pressure 119/63 Blood Pressure [Left Arm] O2 Sat by Pulse 99 Oximetry 11/18/19 11/18/19 03:40 04:30 Temperature 97.5 F L Pulse Rate 63 62 Pulse Rate [ 58 L Pulse Oximetery ] Respiratory 16 24 Rate Blood Pressure 116/62 133/76 Blood Pressure 154/78 [Left Arm] O2 Sat by Pulse 96 95 Oximetry - Reevaluation(s) Reevaluation #1: Medical record is reviewed Patient remains or shortness of breath not feeling well cough Patient has severe chest pain Patient informed of results, questions are answered Medical Decision Making - Medical Decision Making 63 male DF for evaluation persistent shortness of breath multiple recent ER visits, patient is to be admitted for pain control, breathing treatment steroids - Lab Data Result diagrams: 11/19/19 02:20 11/19/19 02:20 Lab Results 11/18/19 11/18/19 11/18/19 Range/Units 02:40 02:40 02:40 WBC 10.1 (3.8-10.6) k/uL RBC 4.02 L (4.30-5.90) m/uL Hgb 12.4 L (13.0-17.5) gm/dL Hct 38.2 L (39.0-53.0) % MCV 94.9 (80.0-100.0) fL MCH 30.8 (25.0-35.0) pg MCHC 32.4 (31.0-37.0) g/dL RDW 14.3 (11.5-15.5) % Plt Count 191 D (150-450) k/uL Neutrophils % 73 % Lymphocytes % 20 % Monocytes % 5 % Eosinophils % 1 % Basophils % 0 % Neutrophils # 7.3 (1.3-7.7) k/uL Lymphocytes # 2.0 (1.0-4.8) k/uL Monocytes # 0.5 (0-1.0) k/uL Eosinophils # 0.1 (0-0.7) k/uL Basophils # 0.0 (0-0.2) k/uL PT 10.2 (9.0-12.0) sec INR 1.0 (<1.2) APTT 20.5 L (22.0-30.0) sec Sodium 140 (137-145) mmol/L Potassium 3.6 (3.5-5.1) mmol/L Chloride 109 H (98-107) mmol/L Carbon Dioxide 20 L (22-30) mmol/L Anion Gap 11 mmol/L BUN 36 H (9-20) mg/dL Creatinine 1.21 (0.66-1.25) mg/dL Est GFR (CKD-EPI)AfAm 74 (>60 ml/min/1.73 sqM) Est GFR (CKD-EPI)NonAf 64 (>60 ml/min/1.73 sqM) Glucose 122 H (74-99) mg/dL Calcium 8.4 (8.4-10.2) mg/dL Magnesium 2.0 (1.6-2.3) mg/dL Total Bilirubin 0.3 (0.2-1.3) mg/dL AST 23 (17-59) U/L ALT 26 (4-49) U/L Alkaline Phosphatase 118 (38-126) U/L Creatine Kinase 52 L (55-170) U/L CK-MB (CK-2) (0.0-2.4) ng/mL Troponin I (0.000-0.034) ng/mL NT-Pro-B Natriuret Pep pg/mL Total Protein 5.8 L (6.3-8.2) g/dL Albumin 3.6 (3.5-5.0) g/dL Influenza Type A RNA (Not Detectd) Influenza Type B (PCR) (Not Detectd) 11/18/19 11/18/19 11/18/19 Range/Units 02:40 02:40 02:40 WBC (3.8-10.6) k/uL RBC (4.30-5.90) m/uL Hgb (13.0-17.5) gm/dL Hct (39.0-53.0) % MCV (80.0-100.0) fL MCH (25.0-35.0) pg MCHC (31.0-37.0) g/dL RDW (11.5-15.5) % Plt Count (150-450) k/uL Neutrophils % % Lymphocytes % % Monocytes % % Eosinophils % % Basophils % % Neutrophils # (1.3-7.7) k/uL Lymphocytes # (1.0-4.8) k/uL Monocytes # (0-1.0) k/uL Eosinophils # (0-0.7) k/uL Basophils # (0-0.2) k/uL PT (9.0-12.0) sec INR (<1.2) APTT (22.0-30.0) sec Sodium (137-145) mmol/L Potassium (3.5-5.1) mmol/L Chloride (98-107) mmol/L Carbon Dioxide (22-30) mmol/L Anion Gap mmol/L BUN (9-20) mg/dL Creatinine (0.66-1.25) mg/dL Est GFR (CKD-EPI)AfAm (>60 ml/min/1.73 sqM) Est GFR (CKD-EPI)NonAf (>60 ml/min/1.73 sqM) Glucose (74-99) mg/dL Calcium (8.4-10.2) mg/dL Magnesium (1.6-2.3) mg/dL Total Bilirubin (0.2-1.3) mg/dL AST (17-59) U/L ALT (4-49) U/L Alkaline Phosphatase (38-126) U/L Creatine Kinase (55-170) U/L CK-MB (CK-2) 1.9 (0.0-2.4) ng/mL Troponin I <0.012 (0.000-0.034) ng/mL NT-Pro-B Natriuret Pep 404 pg/mL Total Protein (6.3-8.2) g/dL Albumin (3.5-5.0) g/dL Influenza Type A RNA Not Detected (Not Detectd) Influenza Type B (PCR) Not Detected (Not Detectd) - EKG Data -: EKG Interpreted by Me (EKG shows sinus a 65, TN 130, QRS 142 and QTC 450) - Radiology Data Radiology results: report reviewed (Chest x-ray is negative for acute disease), image reviewed Disposition Clinical Impression: Acute exacerbation of chronic obstructive airways disease, COPD (chronic obstructive pulmonary disease) with acute bronchitis, Chest pain, Failure of outpatient treatment Disposition: ADMITTED IP TO THIS HOSP Condition: Fair Is patient prescribed a controlled substance at d/c from ED?: No
[2019-11-18 02:59] LABS: Basophils % (A) 0 %; Eosinophils # (A) 0.1 k/uL (0-0.7); Eosinophils % (A) 1 %; HCT 38.2 % (39.0-53.0); HGB 12.4 gm/dL (13.0-17.5); Lymphocytes % (A) 20 %; MCH 30.8 pg (25.0-35.0); MCHC 32.4 g/dL (31.0-37.0); MCV 94.9 fL (80.0-100.0); Mean Platelet Volume 8.2; Monocytes # (A) 0.5 k/uL (0-1.0); Monocytes % (A) 5 %; Neutrophils # (A) 7.3 k/uL (1.3-7.7); Neutrophils % (A) 73 %; Platelet Count 191 k/uL (150-450); RBC 4.02 m/uL (4.30-5.90); RDW 14.3 % (11.5-15.5); WBC 10.1 k/uL (3.8-10.6)
[2019-11-18 03:06] LABS: Albumin 3.6 g/dL (3.5-5.0); Calcium 8.4 mg/dL (8.4-10.2); Potassium 3.6 mmol/L (3.5-5.1); Total Bilirubin 0.3 mg/dL (0.2-1.3); Total Protein 5.8 g/dL (6.3-8.2)
[2019-11-18 03:09] LABS: Prothrombin Time 10.2 sec (9.0-12.0)
[2019-11-18 03:10] LABS: Partial Thromboplastin Time 20.5 sec (22.0-30.0)
--- NOTE | 2019-11-18 03:18 | XR ---
EXAMINATION TYPE: XR chest 1V portable DATE OF EXAM: 11/18/2019 COMPARISON: 11/15/2019 HISTORY: Pneumonia. Chest pain TECHNIQUE: FINDINGS: There is no heart failure nor confluent pneumonic infiltrate. Costophrenic angles are clear . There are chest leads. Bony thorax is intact. IMPRESSION: No active cardiopulmonary disease. Normal heart. No change. No evidence of bronchopneumon ia.
[2019-11-18 03:38] LABS: Creatine Kinase MB 1.9 ng/mL (0.0-2.4); Troponin I <0.012 ng/mL (0.000-0.034)
[2019-11-18] MEDS: oxyCODONE-APAP 10-325MG 1 EACH TAB PO PRN ×4 (05:24→21:10)
[2019-11-18] MEDS ORDERED: methylPREDNISolone SOD SUCCI 125 MG/2 ML VIAL IV SCH (06:00)
[2019-11-18] MEDS ORDERED: TIOTROPIUM 18 MCG/PUFF INHALER INHALATION SCH (08:00)
[2019-11-18] MEDS ORDERED: IPRATROPIUM-ALBUTEROL 3 ML NEB INHALATION SCH ×2 (08:00→12:00)
[2019-11-18] MEDS ORDERED: BACLOFEN 10 MG TAB PO PRN (10:35)
[2019-11-18] MEDS ORDERED: IPRATROPIUM-ALBUTEROL 3 ML NEB INHALATION PRN (10:38)
--- NOTE | 2019-11-18 11:41 | P.HPIM ---
History of Present Illness patient is a 69-year-old male with complaints of shortness of breath and cough,was recently discharged from the hospital comes back again with a similar symptoms patient used to smoke in the past patient denies any recent smoking. P atient chest x-ray did not show any acute cardio pulmonary process but on physical exam patient has significant rhonchi patient is already on antibiotics at home which is azithromycin and doxycycline both. Patient was tested for Covid 19 which was negative during his previous hospitalization patient doesn't have any fever at this time. Although as per the patient, patient's 2 brothers of Covid.patient was started on IV steroids which will be switched to oral. Patient is saturating well on room air because of the significant rhonchi on a give him 1 more day of breathing treatments patient probably can be discharged tomorrow. Review of Systems REVIEW OF SYSTEMS: CONSTITUTIONAL: No fever, no malaise, no fatigue. HEENT: No recent visual problems or hearing problems. Denied any sore throat. CARDIOVASCULAR: No chest pain, orthopnea, PND, no palpitations, no syncope. PULMONARY: no hemoptysis. GASTROINTESTINAL: No diarrhea, no nausea, no vomiting, no abdominal pain. NEUROLOGICAL: No headaches, no weakness, no numbness. HEMATOLOGICAL: Denies any bleeding or petechiae. GENITOURINARY: Denies any burning micturition, frequency, or urgency. MUSCULOSKELETAL/RHEUMATOLOGICAL: Denies any joint pain, swelling, or any muscle pain. ENDOCRINE: Denies any polyuria or polydipsia. The rest of the 14-point review of systems is negative. Past Medical History Past Medical History: Atrial Flutter, Asthma, Chest Pain / Angina, COPD, GERD/Reflux, Hypertension, Osteoarthritis (OA), Pneumonia, Sleep Apnea/CPAP /BIPAP Additional Past Medical History / Comment(s): Back problems, no CPAP use. History of Any Multi-Drug Resistant Organisms: None Reported Past Surgical History: Adenoidectomy, Bowel Resection, Cholecystectomy Additional Past Surgical History / Comment(s): Nasal surgery. Past Anesthesia/Blood Transfusion Reactions: Previous Problems w/ Anesthesia, Motion Sickness Additional Past Anesthesia/Blood Transfusion Reaction / Comment(s): States "during procedure of checking something on my left lung, I turned blue and I was brought right back out anesthesia and procedure was cancelled". Clausterphobia. Past Psychological History: Anxiety, Bipolar, Depression, Panic Disorder Additional Psychological History / Comment(s): Single and lives independently. No experience. No international travel. No animal exposures. He has stopped smoking. He has a history of heavy alcohol use but that's been many years. Denies recreational drug use Smoking Status: Former smoker Past Alcohol Use History: Heavy Additional Past Alcohol Use History / Comment(s): Started smoking age 19(1974) smoked 1 ppd and quit 1987. Stopped drinking in 2017. Past Drug Use History: Marijuana Additional Drug Use History / Comment(s): "Eats marijuana candy, 2 times per week." Aware no use 24 hrs prior to procedure. - Past Family History Mother Family Medical History: Asthma Additional Family Medical History / Comment(s): at age 62 Father Family Medical History: CVA/TIA Additional Family Medical History / Comment(s): at age 90 Medications and Allergies Home Medications Medication Instructions Recorded Confirmed Type Montelukast [Singulair] 10 mg PO DAILY 03/16/14 11/18/19 History Sertraline [Zoloft] 100 mg PO QAM 11/04/18 11/18/19 History buPROPion HCL [Wellbutrin XL] 150 mg PO BID 05/02/19 11/18/19 History Albuterol Inhaler (Bulk) [Ventolin 1 - 2 puff INHALATION RT-Q6H PRN 05/10/19 11/18/19 Rx Hfa Inhaler (Bulk)] #1 inhaler Albuterol Nebulized [Ventolin 2.5 mg INHALATION RT-Q6H PRN 09/04/19 11/18/19 History Nebulized] Fluticasone/Umeclidin/Vilanter 1 puff INHALATION RT-DAILY 09/04/19 11/18/19 History [Trelegy Ellipta 100-62.5-25] Metoprolol Tartrate [Lopressor] 25 mg PO QAM 09/04/19 11/18/19 History Azithromycin [Zithromax Z-pack] See Taper PO DIRECTED 11/18/19 11/18/19 History Baclofen 10 mg PO TID-W/MEALS PRN 11/18/19 11/18/19 History Buprenorphine HCl [Belbuca] 150 mcg BUCCAL Q12H 11/18/19 11/18/19 History Cetirizine HCl 10 mg PO DAILY 11/18/19 11/18/19 History Diclofenac Sodium [Voltaren] 75 mg PO BID 11/18/19 11/18/19 History Doxycycline Hyclate 100 mg PO BID 11/18/19 11/18/19 History Finasteride [Proscar] 5 mg PO DAILY 11/18/19 11/18/19 History Tamsulosin HCl [Flomax] 0.4 mg PO DAILY 11/18/19 11/18/19 History amLODIPine [Norvasc] 5 mg PO DAILY 11/18/19 11/18/19 History hydrALAZINE HCL 25 mg PO BID-W/MEALS 11/18/19 11/18/19 History oxyCODONE-APAP 7.5-325MG [Percocet 1 tab PO Q6HR PRN 11/18/19 11/18/19 History 7.5-325 mg] predniSONE [Deltasone] See Taper PO DAILY 11/18/19 11/18/19 History Allergies Allergy/AdvReac Type Severity Reaction Status Date / Time peanut Allergy ALLERGY Verified 11/18/19 08:18 TESTING pollen extracts Allergy ALLERGY Verified 11/18/19 08:18 TESTING DUST Allergy ALLERGY Uncoded 11/18/19 08:18 TESTING Physical Exam Vitals: Vital Signs Temp Pulse Pulse Resp BP BP Pulse Ox 11/18/19 10:10 58 L 20 11/18/19 04:30 97.5 F L 62 58 L 24 133/76 154/78 95 11/18/19 03:40 63 16 116/62 96 11/18/19 03:25 80 11/18/19 03:10 61 18 119/63 99 11/18/19 03:00 80 11/18/19 02:40 65 18 142/88 96 11/18/19 02:37 16 92 L 11/18/19 01:58 98.1 F 74 18 179/87 98 Intake and Output 11/17/19 11/18/19 11/18/19 22:59 06:59 14:59 Intake Total 240 Balance 240 Intake: Oral 240 Other: # Voids 1 Weight 97.522 kg PHYSICAL EXAMINATION: GENERAL: The patient is alert and oriented x3, not in any acute distress. Well developed, well nourished. HEENT: Pupils are round and equally reacting to light. EOMI. No scleral icterus. No conjunctival pallor. Normocephalic, atraumatic. No pharyngeal erythema. No thyromegaly. CARDIOVASCULAR: S1 and S2 present. No murmurs, rubs, or gallops. PULMONARY: diffuse rhonchi bilaterally no syncope and wheezing was appreciated ABDOMEN: Soft, nontender, nondistended, normoactive bowel sounds. No palpable organomegaly. MUSCULOSKELETAL: No joint swelling or deformity. EXTREMITIES: No cyanosis, clubbing, or pedal edema. NEUROLOGICAL: Gross neurological examination did not reveal any focal deficits. SKIN: No rashes. Results CBC & Chem 7: 11/18/19 02:40 11/18/19 02:40 Labs: Abnormal Lab Results - Last 24 Hours (Table) 11/18/19 11/18/19 11/18/19 Range/Units 02:40 02:40 02:40 RBC 4.02 L (4.30-5.90) m/uL Hgb 12.4 L (13.0-17.5) gm/dL Hct 38.2 L (39.0-53.0) % APTT 20.5 L (22.0-30.0) sec Chloride 109 H (98-107) mmol/L Carbon Dioxide 20 L (22-30) mmol/L BUN 36 H (9-20) mg/dL Glucose 122 H (74-99) mg/dL Creatine Kinase 52 L (55-170) U/L Total Protein 5.8 L (6.3-8.2) g/dL Thrombosis Risk Factor Assmnt - Choose All That Apply Any of the Below Risk Factors Present?: Yes Each Factor Represents 1 point: Abnormal pulmonary function (COPD), Obesity (BMI >25) Other Risk Factors: Yes Each Risk Factor Represents 2 Points: Age 61-74 years Other congenital or acquired thrombophilia - If yes, enter type in comment: No Thrombosis Risk Factor Assessment Total Risk Factor Score: 4 Thrombosis Risk Factor Assessment Level: Moderate Risk Assessment and Plan Plan: -COPD exacerbation: Patient is saturating well on room air patient probably can be discharged tomorrow but patient hasn't and rhonchi patient will be treated for bronchial tree to bronchitis patient will be resumed on his inhalational treatments and the patient will be started on azithromycin, patient has clear sputum and monitor him 1 more night possibility of discharge tomorrow patient's steroids will be switched from IV to oral. -Chronic pain syndrome patient is requesting lots of IV opiates and that he says is chronic pain patient will be resumed on his home regimen. For pain -Obstructive sleep apnea patient uses CPAP machine at home which will be continued -Gastroesophageal reflux disease patient is comparing of metallic taste which is admitted to gas gastroesophageal reflux disease patient will be started on Protonix -hypertension -Osteoarthritis and chronic back pain -History of atrial flutter patient is sinus rhythm at this time -depression -Marijuana use: Counseling was provided -DVT prophylaxis early ambulation GI prophylaxis proton Protonix
[2019-11-18] MEDS: TIOTROPIUM 18 MCG/PUFF INHALER INHALATION SCH (11:53)
[2019-11-18] MEDS: ALBUTEROL HFA INHALER INHALATION SCH ×4 (11:53→20:04)
[2019-11-18] MEDS: predniSONE 20 MG TAB PO SCH (12:30)
[2019-11-18] MEDS: AZITHROMYCIN 500 MG TAB PO SCH (12:30)
[2019-11-18] MEDS: Buprenorphine Hcl [Belbuca] SUBLINGUAL SCH ×2 (12:34→21:15)
[2019-11-18] MEDS: PANTOPRAZOLE 40 MG/10 ML VIAL IVP SCH (13:16)
--- NOTE | 2019-11-18 15:23 | P.CNPUL ---
History of Present Illness Consult date: 11/18/19 Reason for consult: dyspnea, cough, COPD, hypoxemia, obstructive sleep apnea Chief complaint: Cough with shortness of breath History of present illness: This is a 63-year-old with extensive history of smoking and nicotine in the past patient came into the hospital with ongoing developed shortness of breath along with pain and sputum production patient has end-stage lung disease with severe COPD oxygen dependent and prednisone-dependent intermittently, also has chronic pain syndrome with severe degree of degenerative joint disease involving axial skeleton/spine, his chest x-ray has been negative patient has ongoing wheezing cough and congestion Review of Systems All systems: negative Past Medical History Past Medical History: Atrial Flutter, Asthma, Chest Pain / Angina, COPD, GERD/Reflux, Hypertension, Osteoarthritis (OA), Pneumonia, Sleep Apnea/CPAP/BIPAP Additional Past Medical History / Comment(s): Back problems, no CPAP use. History of Any Multi-Drug Resistant Organisms: None Reported Past Surgical History: Adenoidectomy, Bowel Resection, Cholecystectomy Additional Past Surgical History / Comment(s): Nasal surgery. Past Anesthesia/Blood Transfusion Reactions: Previous Problems w/ Anesthesia, M otion Sickness Additional Past Anesthesia/Blood Transfusion Reaction / Comment(s): States "during procedure of checking something on my left lung, I turned blue and I was brought right back out anesthesia and procedure was cancelled". Clausterphobia. Past Psychological History: Anxiety, Bipolar, Depression, Panic Disorder Additional Psychological History / Comment(s): Single and lives independently. No experience. No international travel. No animal exposures. He has stopped smoking. He has a history of heavy alcohol use but that's been many years. Denies recreational drug use Smoking Status: Former smoker Past Alcohol Use History: Heavy Additional Past Alcohol Use History / Comment(s): Started smoking age 19(1974) smoked 1 ppd and quit 1987. Stopped drinking in 2018. Past Drug Use History: Marijuana Additional Drug Use History / Comment(s): "Eats marijuana candy, 2 times per week." Aware no use 24 hrs prior to procedure. - Past Family History Mother Family Medical History: Asthma Additional Family Medical History / Comment(s): at age 62 Father Family Medical History: CVA/TIA Additional Family Medical History / Comment(s): at age 90 Medications and Allergies Home Medications Medication Instructions Recorded Confirmed Type Montelukast [Singulair] 10 mg PO DAILY 03/16/14 11/18/19 History Sertraline [Zoloft] 100 mg PO QAM 11/04/18 11/18/19 History buPROPion HCL [Wellbutrin XL] 150 mg PO BID 05/02/19 11/18/19 History Albuterol Inhaler (Bulk) [Ventolin 1 - 2 puff INHALATION RT-Q6H PRN 05/10/19 11/18/19 Rx Hfa Inhaler (Bulk)] #1 inhaler Albuterol Nebulized [Ventolin 2.5 mg INHALATION RT-Q6H PRN 09/04/19 11/18/19 History Nebulized] Fluticasone/Umeclidin/Vilanter 1 puff INHALATION RT-DAILY 09/04/19 11/18/19 History [Trelegy Ellipta 100-62.5-25] Metoprolol Tartrate [Lopressor] 25 mg PO QAM 09/04/19 11/18/19 History Azithromycin [Zithromax Z-pack] See Taper PO DIRECTED 11/18/19 11/18/19 History Baclofen 10 mg PO TID-W/MEALS PRN 11/18/19 11/18/19 History Buprenorphine HCl [Belbuca] 150 mcg BUCCAL Q12H 11/18/19 11/18/19 History Cetirizine HCl 10 mg PO DAILY 11/18/19 11/18/19 History Diclofenac Sodium [Voltaren] 75 mg PO BID 11/18/19 11/18/19 History Doxycycline Hyclate 100 mg PO BID 11/18/19 11/18/19 History Finasteride [Proscar] 5 mg PO DAILY 11/18/19 11/18/19 History Tamsulosin HCl [Flomax] 0.4 mg PO DAILY 11/18/19 11/18/19 History amLODIPine [Norvasc] 5 mg PO DAILY 11/18/19 11/18/19 History hydrALAZINE HCL 25 mg PO BID-W/MEALS 11/18/19 11/18/19 History oxyCODONE-APAP 7.5-325MG [Percocet 1 tab PO Q6HR PRN 11/18/19 11/18/19 History 7.5-325 mg] predniSONE [Deltasone] See Taper PO DAILY 11/18/19 11/18/19 History Allergies Allergy/AdvReac Type Severity Reaction Status Date / Time peanut Allergy ALLERGY Verified 11/18/19 08:18 TESTING pollen extracts Allergy ALLERGY Verified 11/18/19 08:18 TESTING DUST Allergy ALLERGY Uncoded 11/18/19 08:18 TESTING Physical Exam Vitals: Vital Signs Temp Pulse Pulse Resp BP BP Pulse Ox 11/18/19 10:10 58 L 20 11/18/19 04:30 97.5 F L 62 58 L 24 133/76 154/78 95 11/18/19 03:40 63 16 116/62 96 11/18/19 03:25 80 11/18/19 03:10 61 18 119/63 99 11/18/19 03:00 80 11/18/19 02:40 65 18 142/88 96 11/18/19 02:37 16 92 L 11/18/19 01:58 98.1 F 74 18 179/87 98 Intake and Output 11/18/19 11/18/19 11/18/19 06:59 14:59 22:59 Intake Total 240 Balance 240 Intake: Oral 240 Other: # Voids 1 Weight 97.522 kg - Constitutional General appearance: average body habitus, disheveled - EENT Eyes: EOMI Ears: bilateral: normal - Neck Neck: normal ROM Carotids: bilateral: upstroke normal - Respiratory Respiratory: bilateral: diminished, rhonchi, wheezing - Cardiovascular Rhythm: regular Heart sounds: normal: S1, S2 - Gastrointestinal General gastrointestinal: normal bowel sounds, soft - Integumentary Integumentary: normal turgor - Neurologic Neurologic: CNII-XII intact - Musculoskeletal Musculoskeletal: gait normal, generalized weakness, strength equal bilaterally Results - Laboratory Findings CBC and BMP: 11/18/19 02:40 11/18/19 02:40 PT/INR, D-dimer PT 10.2 sec (9.0-12.0) 11/18/19 02:40 INR 1.0 (<1.2) 11/18/19 02:40 Abnormal lab findings: Abnormal Labs 11/18/19 11/18/19 11/18/19 02:40 02:40 02:40 RBC 4.02 L Hgb 12.4 L Hct 38.2 L APTT 20.5 L Chloride 109 H Carbon Dioxide 20 L BUN 36 H Glucose 122 H Creatine Kinase 52 L Total Protein 5.8 L - Diagnostic Findings Chest x-ray: report reviewed, image reviewed (Finding as noted above) Assessment and Plan Assessment: Acute COPD exacerbation Purulent tracheobronchitis Degenerative joint disease and osteoarthritis with chronic back pain Atrial flutter GERD Morbid obesity Severe CELE unable to tolerate CPAP machine refused sleep study Plan: Continue breathing treatments IV steroids Deep breathing exercise incentive spirometry Continue antibiotics Remains stable can be discharged in next 24-48 hours Time with Patient: Greater than 30
[2019-11-18] MEDS: BENZOCAINE/MENTHOL LOZENG 1 EACH LOZENGE MUCOUS MEM PRN ×2 (16:45→21:50)
[2019-11-18 19:42] VITALS: RESP 18
[2019-11-18] MEDS: SYMBICORT 80-4.5 MCG INHALER INHALATION SCH ×2 (19:58→20:06)
[2019-11-18] MEDS: buPROPion XL 150 MG TAB.ER.24H PO SCH (21:11)
[2019-11-18] MEDS: ETODOLAC 400 MG TAB PO SCH (21:11)
[2019-11-19 02:04] VITALS: PULSE 66
[2019-11-19 02:32] LABS: Basophils % (A) 0 %; Eosinophils % (A) 0 %; HCT 36.2 % (39.0-53.0); HGB 11.7 gm/dL (13.0-17.5); Lymphocytes # (A) 0.8 k/uL (1.0-4.8); Lymphocytes % (A) 8 %; MCHC 32.4 g/dL (31.0-37.0); MCV 95.8 fL (80.0-100.0); Mean Platelet Volume 7.8; Monocytes # (A) 0.6 k/uL (0-1.0); Monocytes % (A) 6 %; Neutrophils # (A) 8.6 k/uL (1.3-7.7); Neutrophils % (A) 84 %; Platelet Count 141 k/uL (150-450); RBC 3.78 m/uL (4.30-5.90); RDW 14.4 % (11.5-15.5); WBC 10.2 k/uL (3.8-10.6)
[2019-11-19 02:39] LABS: Sodium 140 mmol/L (137-145)
[2019-11-19 02:40] LABS: African American GFR (CKD) >90 (>60 ml/min/1.73 sqM); Anion Gap 6 mmol/L; Blood Urea Nitrogen 26 mg/dL (9-20); Calcium 8.6 mg/dL (8.4-10.2); Carbon Dioxide 27 mmol/L (22-30); Chloride 107 mmol/L (98-107); Glucose 123 mg/dL (74-99); Non-African American GFR(CKD) >90 (>60 ml/min/1.73 sqM); Potassium 3.8 mmol/L (3.5-5.1)
[2019-11-19] MEDS: oxyCODONE-APAP 10-325MG 1 EACH TAB PO PRN ×2 (02:46→08:07)
[2019-11-19] MEDS: TIOTROPIUM 18 MCG/PUFF INHALER INHALATION SCH (07:28)
[2019-11-19] MEDS: ALBUTEROL HFA INHALER INHALATION SCH ×2 (07:28→11:05)
[2019-11-19] MEDS: SYMBICORT 80-4.5 MCG INHALER INHALATION SCH (07:29)
[2019-11-19 08:06] VITALS: BP 195/100; TEMP 97.9
[2019-11-19] MEDS: ETODOLAC 400 MG TAB PO SCH (08:06)
[2019-11-19] MEDS: AZITHROMYCIN 500 MG TAB PO SCH (08:06)
[2019-11-19] MEDS: predniSONE 20 MG TAB PO SCH (08:06)
[2019-11-19] MEDS: Buprenorphine Hcl [Belbuca] SUBLINGUAL SCH (08:08)
[2019-11-19] MEDS: PANTOPRAZOLE 40 MG/10 ML VIAL IVP SCH (08:08)
[2019-11-19] MEDS: buPROPion XL 150 MG TAB.ER.24H PO SCH (08:08)
[2019-11-19] MEDS: BENZOCAINE/MENTHOL LOZENG 1 EACH LOZENGE MUCOUS MEM PRN (08:12)
[2019-11-19] MEDS ORDERED: TAMSULOSIN 0.4 MG CAP.ER.24H PO SCH (09:00)
[2019-11-19] MEDS ORDERED: METOPROLOL TARTRATE 25 MG TAB PO SCH (09:00)
[2019-11-19] MEDS ORDERED: SERTRALINE 100 MG TAB PO SCH (09:00)
[2019-11-19] MEDS ORDERED: MONTELUKAST 10 MG TAB PO SCH (09:00)
[2019-11-19] MEDS ORDERED: amLODIPine 5 MG TAB PO SCH (09:00)
[2019-11-19] MEDS ORDERED: FINASTERIDE 5 MG TAB PO SCH (09:00)
[2019-11-19] MEDS ORDERED: IPRATROPIUM-ALBUTEROL 3 ML NEB INHALATION PRN (10:47)
[2019-11-19] MEDS ORDERED: HYDROmorphone 1 MG/ML 1 ML SYRINGE IVP STA (11:12)
[2019-11-19] MEDS ORDERED: ALBUTEROL HFA INHALER INHALATION SCH (12:00)
[2019-11-19] MEDS ORDERED: IPRATROPIUM-ALBUTEROL 3 ML NEB INHALATION SCH (12:00)
--- NOTE | 2019-11-19 13:04 | P.PN ---
Subjective Progress Note Date: 11/19/19 Principal diagnosis: Acute COPD exacerbation Purulent tracheobronchitis Degenerative joint disease and osteoarthritis with chronic back pain Atrial flutter GERD Morbid obesity Severe CELE unable to tolerate CPAP machine refused sleep study 11/19/2019, overall, continue her shortness of breath severity has been stabilized discussed with primary service they want to discharge the patient, overall respiratory status is stable agree with discharge planning on oral antibiotics and prednisone This is a 63-year-old with extensive history of smoking and nicotine in the past patient came into the hospital with ongoing developed shortness of breath along with pain and sputum production patient has end-stage lung disease with severe COPD oxygen dependent and prednisone-dependent intermittently, also has chronic pain syndrome with severe degree of degenerative joint disease involving axial skeleton/spine, his chest x-ray has been negative patient has ongoing wheezing c ough and congestion Objective - Vital Signs Vital signs: Vital Signs Temp 97.9 F 11/19/19 07:30 Pulse 66 11/19/19 07:41 Resp 18 11/19/19 07:41 BP 195/100 11/19/19 07:30 Pulse Ox 96 11/19/19 07:30 Intake & Output 11/18/19 11/19/19 11/19/19 18:59 06:59 18:59 Other: Voiding Method Toilet Toilet # Voids 1 1 1 - Exam - Constitutional General appearance: average body habitus, disheveled - EENT Eyes: EOMI Ears: bilateral: normal - Neck Neck: normal ROM Carotids: bilateral: upstroke normal - Respiratory Respiratory: bilateral: diminished, rhonchi, wheezing - Cardiovascular Rhythm: regular Heart sounds: normal: S1, S2 - Gastrointestinal General gastrointestinal: normal bowel sounds, soft - Integumentary Integumentary: normal turgor - Neurologic Neurologic: CNII-XII intact - Musculoskeletal Musculoskeletal: gait normal, generalized weakness, strength equal bilaterally - Labs CBC & Chem 7: 11/19/19 02:20 11/19/19 02:20 Labs: Abnormal Lab Results - Last 24 Hours (Table) 11/19/19 11/19/19 Range/Units 02:20 02:20 RBC 3.78 L (4.30-5.90) m/uL Hgb 11.7 L (13.0-17.5) gm/dL Hct 36.2 L (39.0-53.0) % Plt Count 141 L (150-450) k/uL Neutrophils # 8.6 H (1.3-7.7) k/uL Lymphocytes # 0.8 L (1.0-4.8) k/uL BUN 26 H (9-20) mg/dL Glucose 123 H (74-99) mg/dL Assessment and Plan Assessment: Acute COPD exacerbation Purulent tracheobronchitis Degenerative joint disease and osteoarthritis with chronic back pain Atrial flutter GERD Morbid obesity Severe CELE unable to tolerate CPAP machine refused sleep study Plan: Continue breathing treatments IV steroids can be switched to oral Deep breathing exercise incentive spirometry Continue antibiotics Remains stable can be discharged from pulmonary standpoint Time with Patient: Greater than 30
--- NOTE | 2019-11-19 13:10 | P.DS ---
Providers Date of admission: 11/18/19 03:54 Attending physician: Campbell Avilez Consults: 11/18/19 03:54 Consult Physician Routine Consulting Provider: Nehemiah Granados Consult Reason/Comments: known Do you want consulting provider notified?: Yes Primary care physician: Deborah Marie Alyssa [facility] Course: 69-year-old male with complaints of shortness of breath and cough,was recently discharged from the hospital comes back again with a similar symptoms patient used to smoke in the past patient denies any recent smoking. Patient chest x- ray did not show any acute cardio pulmonary process but on physical exam patient has significant rhonchi patient is already on antibiotics at home which is azithromycin and doxycycline both. Patient was tested for Covid 19 which was negative during his previous hospitalization patient doesn't have any fever at this time. Although as per the patient, patient's 2 brothers of Covid.patient was started on IV steroids which will be switched to oral. Patient is saturating well on room air because of the significant rhonchi on a give him 1 more day of breathing treatments patient probably can be discharged tomorrow. 11/19/2019 Patient respiratory status improved his rhonchi improved but still has some lesions but patient appears to have baseline wheeze. Will ablate the patient is saturating okay on room air patient will be discharged at last night I got received multiple causes as patient was comparing of chest pain which is noncardiac chest pain may be musculoskeletal from his coughing I did obtain troponins and EKG, rule out acute coronary syndromes. Patient blood pressures bit elevated from increasing the dose of amlodipine patient will be discharged today. Patient appears to have some narcotic seeking behavior as well PHYSICAL EXAMINATION: GENERAL: The patient is alert and oriented x3, not in any acute distress. Well developed, well nourished. HEENT: Pupils are round and equally reacting to light. EOMI. No scleral icterus. No conjunctival pallor. Normocephalic, atraumatic. No pharyngeal erythema. No thyromegaly. CARDIOVASCULAR: S1 and S2 present. No murmurs, rubs, or gallops. PULMONARY: Mild expiratory wheezing on exam no crackles nor rhonchi ABDOMEN: Soft, nontender, nondistended, normoactive bowel sounds. No palpable organomegaly. MUSCULOSKELETAL: No joint swelling or deformity. EXTREMITIES: No cyanosis, clubbing, or pedal edema. NEUROLOGICAL: Gross neurological examination did not reveal any focal deficits. SKIN: No rashes. Assessment and Plan Plan: -COPD exacerbation: -Chronic pain syndrome patient is requesting lots of IV opiates and that he says is chronic pain patient will be resumed on his home regimen. For pain -Obstructive sleep apnea patient uses CPAP machine at home -Gastroesophageal reflux disease -hypertension -Osteoarthritis and chronic back pain -History of atrial flutter patient is sinus rhythm at this time -depression -Marijuana use: Counseling was provided Patient Condition at Discharge: Fair Plan - Discharge Summary Discharge Rx Participant: No New Discharge Prescriptions: New predniSONE 10 mg PO DAILY #30 tab Continue Montelukast [Singulair] 10 mg PO DAILY Sertraline [Zoloft] 100 mg PO QAM buPROPion HCL [Wellbutrin XL] 150 mg PO BID Albuterol Inhaler (Bulk) [Ventolin Hfa Inhaler (Bulk)] 1 - 2 puff INHALATION RT-Q6H PRN #1 inhaler PRN Reason: Shortness Of Breath Or Wheezing Metoprolol Tartrate [Lopressor] 25 mg PO QAM Fluticasone/Umeclidin/Vilanter [Trelegy Ellipta 100-62.5-25] 1 puff INHALATION RT-DAILY Albuterol Nebulized [Ventolin Nebulized] 2.5 mg INHALATION RT-Q6H PRN PRN Reason: Shortness Of Breath Azithromycin [Zithromax Z-pack] See Taper PO DIRECTED Baclofen 10 mg PO TID-W/MEALS PRN PRN Reason: muscle spasms Buprenorphine HCl [Belbuca] 150 mcg BUCCAL Q12H Cetirizine HCl 10 mg PO DAILY Diclofenac Sodium [Voltaren] 75 mg PO BID Finasteride [Proscar] 5 mg PO DAILY hydrALAZINE HCL 25 mg PO BID-W/MEALS oxyCODONE-APAP 7.5-325MG [Percocet 7.5-325 mg] 1 tab PO Q6HR PRN PRN Reason: Pain Tamsulosin HCl [Flomax] 0.4 mg PO DAILY Changed amLODIPine [Norvasc] 10 mg PO DAILY #0 Discontinued Doxycycline Hyclate 100 mg PO BID predniSONE [Deltasone] See Taper PO DAILY Discharge Medication List Montelukast [Singulair] 10 mg PO DAILY 03/16/14 [History] Sertraline [Zoloft] 100 mg PO QAM 11/04/18 [History] buPROPion HCL [Wellbutrin XL] 150 mg PO BID 05/02/19 [History] Albuterol Inhaler (Bulk) [Ventolin Hfa Inhaler (Bulk)] 1 - 2 puff INHALATION RT-Q6H PRN #1 inhaler 05/10/19 [Rx] Albuterol Nebulized [Ventolin Nebulized] 2.5 mg INHALATION RT-Q6H PRN 09/04/19 [History] Fluticasone/Umeclidin/Vilanter [Trelegy Ellipta 100-62.5-25] 1 puff INHALATION R T-DAILY 09/04/19 [History] Metoprolol Tartrate [Lopressor] 25 mg PO QAM 09/04/19 [History] Azithromycin [Zithromax Z-pack] See Taper PO DIRECTED 11/18/19 [History] Baclofen 10 mg PO TID-W/MEALS PRN 11/18/19 [History] Buprenorphine HCl [Belbuca] 150 mcg BUCCAL Q12H 11/18/19 [History] Cetirizine HCl 10 mg PO DAILY 11/18/19 [History] Diclofenac Sodium [Voltaren] 75 mg PO BID 11/18/19 [History] Finasteride [Proscar] 5 mg PO DAILY 11/18/19 [History] Tamsulosin HCl [Flomax] 0.4 mg PO DAILY 11/18/19 [History] hydrALAZINE HCL 25 mg PO BID-W/MEALS 11/18/19 [History] oxyCODONE-APAP 7.5-325MG [Percocet 7.5-325 mg] 1 tab PO Q6HR PRN 11/18/19 [History] amLODIPine [Norvasc] 10 mg PO DAILY #0 11/19/19 [Rx] predniSONE 10 mg PO DAILY #30 tab 11/19/19 [Rx] Follow up Appointment(s)/Referral(s): Deborah Shah III, MD [Primary Care Provider] - 3 Days (office closed. Please call on Wednesday to make appointment) Patient Instructions/Handouts: COPD (Chronic Obstructive Pulmonary Disease) (DC) Discharge Disposition: HOME SELF-CARE
== END 2019-11-19 13:09 | disposition home or self-care (01) ==
LOC: EC 01:54 → 5NMEDONC 03:54 → 4SSUR 08:11
PROVIDERS: ADMIT Hospitalist; ATTEND Hospitalist
DX: J44.0 Chronic obstructive pulmonary disease with (acute) lower respiratory infection (principal); J44.1 Chronic obstructive pulmonary disease with (acute) exacerbation; J20.9 Acute bronchitis, unspecified; E66.01 Morbid (severe) obesity due to excess calories; F12.90 Cannabis use, unspecified, uncomplicated; Z71.51 Drug abuse counseling and surveillance of drug abuser; F31.9 Bipolar disorder, unspecified; F41.0 Panic disorder [episodic paroxysmal anxiety]; G47.33 Obstructive sleep apnea (adult) (pediatric); G89.4 Chronic pain syndrome; I10 Essential (primary) hypertension; I48.92 Unspecified atrial flutter; K21.9 Gastro-esophageal reflux disease without esophagitis; R09.02 Hypoxemia; Z76.5 Malingerer [conscious simulation]; Z79.899 Other long term (current) drug therapy; Z82.5 Family history of asthma and other chronic lower respiratory diseases; Z87.891 Personal history of nicotine dependence; Z79.891 Long term (current) use of opiate analgesic; Z91.010 Allergy to peanuts; Z91.048 Other nonmedicinal substance allergy status; Z99.81 Dependence on supplemental oxygen; Z90.49 Acquired absence of other specified parts of digestive tract; F40.240 Claustrophobia; M19.90 Unspecified osteoarthritis, unspecified site; Z68.30 Body mass index [BMI] 30.0-30.9, adult; Z82.3 Family history of stroke
CPT/HCPCS: 96376 ×3; 96375 ×2; 96361; 96374; 99285; 36415; 94640 ×4; 93005; 83880; 80053; 80048; 82550; 82553; 83735; 84484 ×2; 85025 ×2; 85610; 85730; 87502; 71045; G0378 ×2; S0138; J2060; J2930; J1170 ×2; J7512 ×2; C9113 ×2

== ENCOUNTER 2019-12-12 11:47 | Inpatient (IN) | payer MEDICARE, OTHER ==
[2019-12-12] MEDS ORDERED: ALBUTEROL HFA INHALER INHALATION STA (12:29)
[2019-12-12] MEDS ORDERED: ASPIRIN 81 MG PO STA (12:31)
[2019-12-12] MEDS ORDERED: MORPHINE SULFATE 4 MG/ML SYRINGE IV STA (12:32)
--- NOTE | 2019-12-12 12:38 | ED ---
General Adult HPI - General Chief complaint: Upper Respiratory Infection Stated complaint: SOB, groin pain Time Seen by Provider: 12/12/19 12:03 Source: patient, RN notes reviewed, old records reviewed Mode of arrival: ambulatory Limitations: no limitations - History of Present Illness Initial comments: 64-year-old male patient past history significant for COPD, CHF, type 2 diabetes presents ED for chief complaint of cough, shortness of breath which has been ongoing for the last month. Patient reports that he has been on courses of antibiotics and steroids which he completed just yesterday and had no improvement. Patient reports that he was on azithromycin. Patient also reports that over this timeframe he has been having left parasternal chest pressure. Reports that it waxes and wanes. Patient also reports that he does have right groin pain for approximately 2 weeks. Denies any recent falls or trauma. Patient denies any other complaints at this time. Patient does report that he did have exposure to a covid positive contact approximately 1.5 weeks ago. Systemic: Pt denies fatigue, fever/chills, rash. Pt denies weakness, night sweats, weight loss. Neuro: Pt denies headache, visual disturbances, syncope or pre-syncope. HEENT: Pt denies ocular discharge or irritation, otalgia, rhinorrhea, pharyngitis or notable lymphadenopathy. Cardiopulmonary: Pt denies heart palpitations, dyspnea on exertion. Abdominal/GI: Pt denies abdominal pain, n/v/d. : Pt denies dysuria, burning w/ urination, frequency/urgency. Denies new onset urinary or bowel incontinence. MSK: Pt denies myalgia, loss of strength or function in extremities. Neuro: Pt denies new onset weakness, paresthesias. - Related Data Home Medications Medication Instructions Recorded Confirmed Montelukast [Singulair] 10 mg PO DAILY 03/16/14 11/18/19 Sertraline [Zoloft] 100 mg PO QAM 11/04/18 11/18/19 buPROPion HCL [Wellbutrin XL] 150 mg PO BID 05/02/19 11/18/19 Albuterol Nebulized [Ventolin 2.5 mg INHALATION RT-Q6H PRN 09/04/19 11/18/19 Nebulized] Fluticasone/Umeclidin/Vilanter 1 puff INHALATION RT-DAILY 09/04/19 11/18/19 [Trelegy Ellipta 100-62.5-25] Metoprolol Tartrate [Lopressor] 25 mg PO QAM 09/04/19 11/18/19 Azithromycin [Zithromax Z-pack] See Taper PO DIRECTED 11/18/19 11/18/19 Baclofen 10 mg PO TID-W/MEALS PRN 11/18/19 11/18/19 Buprenorphine HCl [Belbuca] 150 mcg BUCCAL Q12H 11/18/19 11/18/19 Cetirizine HCl 10 mg PO DAILY 11/18/19 11/18/19 Diclofenac Sodium [Voltaren] 75 mg PO BID 11/18/19 11/18/19 Finasteride [Proscar] 5 mg PO DAILY 11/18/19 11/18/19 Tamsulosin HCl [Flomax] 0.4 mg PO DAILY 11/18/19 11/18/19 hydrALAZINE HCL 25 mg PO BID-W/MEALS 11/18/19 11/18/19 oxyCODONE-APAP 7.5-325MG [Percocet 1 tab PO Q6HR PRN 11/18/19 11/18/19 7.5-325 mg] Previous Rx's Medication Instructions Recorded Albuterol Inhaler (Mhu) [Ventolin 1 - 2 puff INHALATION RT-Q6H PRN 05/10/19 Hfa Inhaler (Mhu)] #1 inhaler Omeprazole [PriLOSEC] 40 mg PO AC-BRKFST #14 capsule. 11/19/19 amLODIPine [Norvasc] 10 mg PO DAILY #0 11/19/19 predniSONE 10 mg PO DAILY #30 tab 11/19/19 Allergies Allergy/AdvReac Type Severity Reaction Status Date / Time peanut Allergy ALLERGY Verified 12/12/19 11:56 TESTING pollen extracts Allergy ALLERGY Verified 12/12/19 11:56 TESTING DUST Allergy ALLERGY Uncoded 12/12/19 11:56 TESTING Review of Systems ROS Statement: Those systems with pertinent positive or pertinent negative responses have been documented in the HPI. ROS Other: All systems not noted in ROS Statement are negative. Past Medical History Past Medical History: Atrial Flutter, Asthma, Chest Pain / Angina, COPD, GERD/Reflux, Hypertension, Osteoarthritis (OA), Pneumonia, Sleep Apnea/CPAP/BIPAP Additional Past Medical History / Comment(s): Back problems, no CPAP use. History of Any Multi-Drug Resistant Organisms: None Reported Past Surgical History: Adenoidectomy, Bowel Resection, Cholecystectomy Additional Past Surgical History / Comment(s): Nasal surgery. Past Anesthesia/Blood Transfusion Reactions: Previous Problems w/ Anesthesia, Motion Sickness Additional Past Anesthesia/Blood Transfusion Reaction / Comment(s): States "during procedure of checking something on my left lung, I turned blue and I was brought right back out anesthesia and procedure was cancelled". Clausterphobia. Past Psychological History: Anxiety, Bipolar, Depression, Panic Disorder Smoking Status: Former smoker Past Alcohol Use History: Heavy Past Drug Use History: Marijuana - Past Family History Mother Family Medical History: Asthma Additional Family Medical History / Comment(s): at age 62 Father Family Medical History: CVA/TIA Additional Family Medical History / Comment(s): at age 90 General Exam - General Exam Comments Initial Comments: Constitutional: NAD, AOX3, Pt has pleasant affect. HEENT: NC/AT, trachea midline, neck supple, no lymphadenopathy. Posterior pharynx non erythematous, without exudates. External ears appear normal, without discharge. Mucous membranes moist. Eyes PERRLA, EOM intact. There is no scleral icterus. No pallor noted. Cardiopulmonary: RRR, no murmurs, rubs or gallops, no JVD noted. Wheezing noted in anterior and posterior pedroza. No peripheral edema. Abdominal exam: Abdomen soft and non-distended. Abdomen non-tender to palpation in all 4 quadrants. Bowel sounds active in LLQ. No hepatosplenomegaly. No ecchymosis Neuro: CN II-XII grossly intact. No nuchal rigidity. No raccon eyes, no messina sign, no hemotympanum. No cervical spinal tenderness. MSK: Right groin region mildly tender to palpation. No skin changes. No fluctuance or crepitus. No posterior calf tenderness bilaterally, homans sign negative bilaterally. Posterior tibialis and radial pulse +2 bilaterally. Sensation intact in upper and lower extremities. Full active ROM in upper and lower extremities, 5/5 stregnth. Limitations: no limitations Course Vital Signs 12/12/19 12/12/19 12/12/19 11:52 12:04 14:42 Temperature 97.7 F 97.8 F Pulse Rate 62 55 L Respiratory 18 18 17 Rate Blood Pressure 121/71 112/75 O2 Sat by Pulse 97 96 Oximetry Medical Decision Making - Medical Decision Making 64-year-old male patient past history significant for COPD, CHF, type 2 diabetes presents ED for chief complaint of cough, shortness of breath which has been ongoing for the last month. Patient reports that he has been on courses of antibiotics and steroids which he completed just yesterday and had no improveme nt. Patient reports that he was on azithromycin. Patient also reports that over this timeframe he has been having left parasternal chest pressure. Reports that it waxes and wanes. Patient also reports that he does have right groin pain for approximately 2 weeks. Denies any recent falls or trauma. Patient denies any other complaints at this time. Patient does report that he did have exposure to a covid positive contact approximately 1.5 weeks ago. Patient vital signs are stable, afebrile. Physical exam displayed wheezing in anterior and posterior lung pedroza, right groin area mildly tender to palpation. Left investigations obtained, d-dimer negative, troponin negative, CRP is elevated. Coronavirus test is pending. EKG displayed sinus bradycardia with a right bundle branch block. No significant changes from prior. Ultrasound right lower extremity was of limited however no evidence of DVT. Patient's d-dimer is negative. Chest x-ray displayed myocardial megaly without acute process. Patient will be admitted for COPD exacerbation initiated on steroids and breathing treatments. Patient is not experiencing active chest pain. Case discussed with Dr. Reynoso. - Lab Data Result diagrams: 12/12/19 12:45 12/12/19 12:45 Lab Results 12/12/19 12/12/19 12/12/19 Range/Units 12:45 12:45 12:45 WBC 5.8 (3.8-10.6) k/uL RBC 3.90 L (4.30-5.90) m/uL Hgb 12.2 L (13.0-17.5) gm/dL Hct 37.3 L (39.0-53.0) % MCV 95.7 (80.0-100.0) fL MCH 31.4 (25.0-35.0) pg MCHC 32.8 (31.0-37.0) g/dL RDW 14.0 (11.5-15.5) % Plt Count 211 (150-450) k/uL Neutrophils % 61 % Lymphocytes % 21 % Monocytes % 7 % Eosinophils % 7 % Basophils % 1 % Neutrophils # 3.5 (1.3-7.7) k/uL Lymphocytes # 1.2 (1.0-4.8) k/uL Monocytes # 0.4 (0-1.0) k/uL Eosinophils # 0.4 (0-0.7) k/uL Basophils # 0.0 (0-0.2) k/uL Hypochromasia Slight PT 9.3 (9.0-12.0) sec INR 0.9 (<1.2) APTT 21.1 L (22.0-30.0) sec D-Dimer 0.35 (<0.60) mg/L FEU Sodium 137 (137-145) mmol/L Potassium 4.6 (3.5-5.1) mmol/L Chloride 106 (98-107) mmol/L Carbon Dioxide 26 (22-30) mmol/L Anion Gap 5 mmol/L BUN 24 H (9-20) mg/dL Creatinine 1.13 (0.66-1.25) mg/dL Est GFR (CKD-EPI)AfAm 80 (>60 ml/min/1.73 sqM) Est GFR (CKD-EPI)NonAf 69 (>60 ml/min/1.73 sqM) Glucose 92 (74-99) mg/dL Plasma Lactic Acid Aman (0.7-2.0) mmol/L Calcium 8.6 (8.4-10.2) mg/dL Magnesium 2.4 H (1.6-2.3) mg/dL Total Bilirubin 0.2 (0.2-1.3) mg/dL AST 32 (17-59) U/L ALT 29 (4-49) U/L Alkaline Phosphatase 120 (38-126) U/L Lactate Dehydrogenase 339 (313-618) U/L Troponin I (0.000-0.034) ng/mL C-Reactive Protein 18.6 H (<10.0) mg/L Total Protein 5.8 L (6.3-8.2) g/dL Albumin 3.5 (3.5-5.0) g/dL 12/12/19 12/12/19 Range/Units 12:45 12:45 WBC (3.8-10.6) k/uL RBC (4.30-5.90) m/uL Hgb (13.0-17.5) gm/dL Hct (39.0-53.0) % MCV (80.0-100.0) fL MCH (25.0-35.0) pg MCHC (31.0-37.0) g/dL RDW (11.5-15.5) % Plt Count (150-450) k/uL Neutrophils % % Lymphocytes % % Monocytes % % Eosinophils % % Basophils % % Neutrophils # (1.3-7.7) k/uL Lymphocytes # (1.0-4.8) k/uL Monocytes # (0-1.0) k/uL Eosinophils # (0-0.7) k/uL Basophils # (0-0.2) k/uL Hypochromasia PT (9.0-12.0) sec INR (<1.2) APTT (22.0-30.0) sec D-Dimer (<0.60) mg/L FEU Sodium (137-145) mmol/L Potassium (3.5-5.1) mmol/L Chloride (98-107) mmol/L Carbon Dioxide (22-30) mmol/L Anion Gap mmol/L BUN (9-20) mg/dL Creatinine (0.66-1.25) mg/dL Est GFR (CKD-EPI)AfAm (>60 ml/min/1.73 sqM) Est GFR (CKD-EPI)NonAf (>60 ml/min/1.73 sqM) Glucose (74-99) mg/dL Plasma Lactic Acid Aman 1.1 (0.7-2.0) mmol/L Calcium (8.4-10.2) mg/dL Magnesium (1.6-2.3) mg/dL Total Bilirubin (0.2-1.3) mg/dL AST (17-59) U/L ALT (4-49) U/L Alkaline Phosphatase (38-126) U/L Lactate Dehydrogenase (313-618) U/L Troponin I <0.012 (0.000-0.034) ng/mL C-Reactive Protein (<10.0) mg/L Total Protein (6.3-8.2) g/dL Albumin (3.5-5.0) g/dL - EKG Data -: EKG Interpreted by Me (and Dr. Reynoso ) EKG Comments: Ventricular rate 55, NV interval 162, QRS 138, QT/QTc 442/422. Sinus bradycardia, right bundle branch block. No concern for acute ischemia at this time. Disposition Clinical Impression: COPD exacerbation Disposition: ADMITTED IP TO THIS HOSP Condition: Serious Is patient prescribed a controlled substance at d/c from ED?: No
[2019-12-12 13:24] LABS: Albumin 3.5 g/dL (3.5-5.0); Calcium 8.6 mg/dL (8.4-10.2); Magnesium 2.4 mg/dL (1.6-2.3); Potassium 4.6 mmol/L (3.5-5.1); Total Bilirubin 0.2 mg/dL (0.2-1.3); Total Protein 5.8 g/dL (6.3-8.2)
--- NOTE | 2019-12-12 13:28 | XR ---
EXAMINATION TYPE: XR chest 1V portable DATE OF EXAM: 12/12/2019 COMPARISON: Chest x-ray November 18, 2019. HISTORY: Shortness of breath and right groin pain. TECHNIQUE: Single frontal view of the chest is obtained. FINDINGS: Overlying EKG leads are redemonstrated. There is no new suspicious focal air space opacity, pleural effusion, or pneumothorax seen. The cardiac silhouette size is stable and mildly enlarged. The osseous structures are intact. IMPRESSION: Mild cardiomegaly without acute pulmonary process.
[2019-12-12 13:38] LABS: Basophils % (A) 1 %; Eosinophils # (A) 0.4 k/uL (0-0.7); Eosinophils % (A) 7 %; HCT 37.3 % (39.0-53.0); HGB 12.2 gm/dL (13.0-17.5); Hypochromasia Slight; Lymphocytes # (A) 1.2 k/uL (1.0-4.8); Lymphocytes % (A) 21 %; MCH 31.4 pg (25.0-35.0); MCHC 32.8 g/dL (31.0-37.0); MCV 95.7 fL (80.0-100.0); Mean Platelet Volume 7.4; Monocytes # (A) 0.4 k/uL (0-1.0); Monocytes % (A) 7 %; Neutrophils # (A) 3.5 k/uL (1.3-7.7); Neutrophils % (A) 61 %; Platelet Count 211 k/uL (150-450); WBC 5.8 k/uL (3.8-10.6)
[2019-12-12 13:43] LABS: D-Dimer 0.35 mg/L FEU (<0.60); INR 0.9 (<1.2); Prothrombin Time 9.3 sec (9.0-12.0)
[2019-12-12 13:44] LABS: Partial Thromboplastin Time 21.1 sec (22.0-30.0)
[2019-12-12] MEDS ORDERED: methylPREDNISolone SOD SUCCI 125 MG/2 ML VIAL IV STA (13:53)
[2019-12-12 14:06] LABS: C Reactive Protein 18.6 mg/L (<10.0)
--- NOTE | 2019-12-12 14:12 | US ---
EXAMINATION TYPE: US venous doppler duplex LE RT DATE OF EXAM: 12/12/2019 2:00 PM COMPARISON: US 2019 CLINICAL HISTORY: groin pain r/o right kidney measures 8.5 x 3.7 x 5.3 cm the left kidney measures 10 x 5.6 x 4.4 cm. No hydronephrosis or nephrolithiasis. Bilateral hypodensities within the kidneys. Aorta and IVC of normal caliber. Bladder is anechoic.. Right leg pain SIDE PERFORMED: Right TECHNIQUE: The lower extremity deep venous system is examined utilizing real time linear array sonog heriberto with graded compression, doppler sonography and color-flow sonography. VESSELS IMAGED: External Iliac Vein (EIV) Common Femoral Vein Deep Femoral Vein Greater Saphenous Vein * Femoral Vein Popliteal Vein Small Saphenous Vein * Proximal Calf Veins (* superficial vessels) Compressions not done at these levels due to patient unable to tolerate probe pressure: EIV, greate r saph vein, mid FV, and distal FV Right Leg: Visualized portions appear negative for DVT IMPRESSION: 1. Exam limited as the patient could not tolerate compression view. Flow is seen within the deep veno us structures with no diagnostic evidence of DVT given the limitation of the exam.
[2019-12-12] MEDS ORDERED: NITROGLYCERIN SL TABS 0.4 MG TAB SUBLINGUAL PRN (14:46)
[2019-12-12] MEDS ORDERED: ALBUTEROL NEBULIZED 2.5 MG/3 ML INHALATION SCH (16:00)
[2019-12-12 16:42] LABS: Glucose,Whole Blood 100 mg/dL (75-99)
[2019-12-12] MEDS: ALBUTEROL HFA INHALER INHALATION SCH ×2 (16:50→21:06)
[2019-12-12] MEDS: oxyCODONE-APAP 7.5-325MG 1 EACH TAB PO PRN ×2 (17:17→23:02)
[2019-12-12] MEDS ORDERED: ALBUTEROL HFA INHALER INHALATION PRN (20:25)
[2019-12-12 20:46] LABS: Glucose,Whole Blood 165 mg/dL (75-99)
[2019-12-12] MEDS: BUPRENORPHINE HCL 150 MCG SUBLINGUAL SCH (20:53)
[2019-12-12] MEDS: hydrALAZINE HCL 25 MG TAB PO SCH (21:23)
[2019-12-12] MEDS: INSULIN ASPART (NovoLOG) 100 UNIT/ML VIAL SQ SCH (21:23)
[2019-12-12] MEDS: buPROPion XL 150 MG TAB.ER.24H PO SCH (21:23)
[2019-12-12] MEDS: MELATONIN 3 MG TABLET PO PRN (21:23)
[2019-12-12] MEDS: methylPREDNISolone SOD SUCCI 125 MG/2 ML VIAL IV SCH (23:02)
--- NOTE | 2019-12-13 00:18 | P.HPIM ---
History of Present Illness H&P Date: 12/12/19 Chief Complaint: SOB Patient is a 64-year-old male with a known history of hypertension, COPD, obstructive sleep apnea not using CPAP, GERD, anxiety/bipolar/depression and panic disorder and previous history of smoking and marijuana use 2 times per week came to ER with the complaints of shortness of breath, cough with whitish sputum production. Patient states that he has been having worsening shortness of breath for the past 1 month. Patient was on course of antibiotics and steroids which she completed yesterday without much improvement. Patient also states that she has been having chest pressure mainly in the left retrosternal pain. No associated nausea vomiting. No radiation of the pain. Patient states that recently one brother with complication of cancer and other brother with COVID infection. Patient attended his in October. Denied any complaints of fever or chills. Chest x-ray showed mild cardiomegaly without acute cardiopulmonary process. Right lower extremity venous duplex scan is negative for DVT. EKG showed sinus bradycardia. Patient is currently 94% on room air. Afebrile while in the hospital. Laboratory data showed WBC 5.8, hemoglobin 12.2 and platelets 211, d-dimer 0.35, CRP 18.6, Troponin x2- lactic acid 1.1 Review of Systems Constitutional: Patient denies any fever or chills . No generalized weakness or weight loss. Abdomen: Patient denied nausea vomiting and diarrhea and abdominal pain. Cardiovascular: Patient denies any chest pain or short of breath no palpitations. Respiratory: Shortness of breath and chest pressure. Patient does have cough with whitish sputum production. Neurologic: Patient denied any numbness or tingling. Patient does have dizziness and headache and ringing ears. Musculoskeletal: Patient denies any complaints of joint swelling or deformity. Skin: Negative Psychiatric: Negative Endocrine: No heat or cold intolerance. No recent weight gain. Genitourinary: No dysuria or hematuria. All other 14 point ROS negative except the above Past Medical History Past Medical History: Atrial Flutter, Asthma, Chest Pain / Angina, COPD, GERD/Reflux, Hypertension, Osteoarthritis (OA), Pneumonia, Sleep Apnea/CPAP/BIPAP Additional Past Medical History / Comment(s): Back problems, no CPAP use. History of Any Multi-Drug Resistant Organisms: None Reported Past Surgical History: Adenoidectomy, Bowel Resection, Cholecystectomy Additional Past Surgical History / Comment(s): Nasal surgery. Past Anesthesia/Blood Transfusion Reactions: Previous Problems w/ Anesthesia, Motion Sickness Additional Past Anesthesia/Blood Transfusion Reaction / Comment(s): States "during procedure of checking something on my left lung, I turned blue and I was brought right back out anesthesia and procedure was cancelled". Clausterphobia. Past Psychological History: Anxiety, Bipolar, Depression, Panic Disorder Additional Psychological History / Comment(s): Single and lives independently. No experience. No international travel. No animal exposures. He has stopped smoking. He has a history of heavy alcohol use but that's been many years. Denies recreational drug use Smoking Status: Former smoker Past Alcohol Use History: Heavy Additional Past Alcohol Use History / Comment(s): Started smoking age 19(1974) smoked 1 ppd and quit 1987. Stopped drinking in 2017. Past Drug Use History: Marijuana Additional Drug Use History / Comment(s): "Eats marijuana candy, 2 times per week." Aware no use 24 hrs prior to procedure. - Past Family History Mother Family Medical History: Asthma Additional Family Medical History / Comment(s): at age 62 Father Family Medical History: CVA/TIA Additional Family Medical History / Comment(s): at age 90 Medications and Allergies Home Medications Medication Instructions Recorded Confirmed Type Montelukast [Singulair] 10 mg PO DAILY 03/16/14 12/12/19 History Sertraline [Zoloft] 100 mg PO DAILY 11/04/18 12/12/19 History buPROPion HCL [Wellbutrin XL] 150 mg PO BID 05/02/19 12/12/19 History Albuterol Nebulized [Ventolin 2.5 mg INHALATION RT-QID PRN 09/04/19 12/12/19 History Nebulized] Fluticasone/Umeclidin/Vilanter 1 puff INHALATION RT-DAILY 09/04/19 12/12/19 History [Trelegy Ellipta 100-62.5-25] Metoprolol Tartrate [Lopressor] 25 mg PO DAILY 09/04/19 12/12/19 History Baclofen 10 mg PO TID-W/MEALS PRN 11/18/19 12/12/19 History Buprenorphine HCl [Belbuca] 150 mcg BUCCAL Q12H 11/18/19 12/12/19 History Cetirizine HCl 10 mg PO DAILY 11/18/19 12/12/19 History Diclofenac Sodium [Voltaren] 75 mg PO BID 11/18/19 12/12/19 History Finasteride [Proscar] 5 mg PO DAILY 11/18/19 12/12/19 History Tamsulosin HCl [Flomax] 0.4 mg PO DAILY 11/18/19 12/12/19 History hydrALAZINE HCL 25 mg PO BID-W/MEALS 11/18/19 12/12/19 History oxyCODONE-APAP 7.5-325MG [Percocet 1 tab PO Q6HR PRN 11/18/19 12/12/19 History 7.5-325 mg] amLODIPine [Norvasc] 10 mg PO DAILY #0 11/19/19 12/12/19 Rx Albuterol Sulfate [Ventolin HFA] 1 - 2 puff INHALATION RT-Q6H PRN 12/12/19 12/12/19 History Indapamide [Lozol] 2.5 mg PO DAILY 12/12/19 12/12/19 History Omeprazole 20 mg PO Q12H 12/12/19 12/12/19 History Allergies Allergy/AdvReac Type Severity Reaction Status Date / Time peanut Allergy ALLERGY Verified 12/12/19 19:09 TESTING pollen extracts Allergy ALLERGY Verified 12/12/19 19:09 TESTING DUST Allergy ALLERGY Uncoded 12/12/19 11:56 TESTING Physical Exam Vitals: Vital Signs Temp Pulse Pulse Resp BP BP Pulse Ox 12/12/19 16:35 16 12/12/19 16:33 97.6 F 54 L 16 127/74 94 L 12/12/19 14:42 97.8 F 55 L 17 112/75 96 12/12/19 12:04 18 12/12/19 11:52 97.7 F 62 18 121/71 97 Intake and Output 12/12/19 12/12/19 12/12/19 06:59 14:59 22:59 Intake Total 240 Balance 240 Intake: Oral 240 Other: Voiding Method Urinal Weight 95.254 kg 95.254 kg PHYSICAL EXAMINATION: Patient is lying in the bed comfortably, no acute distress, awake alert and oriented.. HEENT: Normocephalic. Neck is supple. Pupils reactive. Nostrils clear. Oral cavity is moist. Ears reveal no drainage. Neck reveals no JVD, carotid bruits, or thyromegaly. CHEST EXAMINATION: Trachea is central. Symmetrical expansion.Bilateral diminished air entry and wheezing present. Nonlabored breathing. . CARDIAC: Normal S1, S2 with no gallops. No murmurs ABDOMEN: Soft. Bowel sounds normal. No organomegaly. No abdominal bruits. Extremities: reveal no edema. No clubbing or cyanosis Neurologically awake, alert, oriented x3 with well-coordinated movements. No focal deficits noted Skin: No rash or skin lesions. Psychiatric: Coperative. Nonsuicidal Musculoskeletal: No joint swelling or deformity. Normal range of motion. Results CBC & Chem 7: 12/12/19 12:45 12/12/19 12:45 Labs: Abnormal Lab Results - Last 24 Hours (Table) 12/12/19 12/12/19 12/12/19 Range/Units 12:45 12:45 12:45 RBC 3.90 L (4.30-5.90) m/uL Hgb 12.2 L (13.0-17.5) gm/dL Hct 37.3 L (39.0-53.0) % APTT 21.1 L (22.0-30.0) sec BUN 24 H (9-20) mg/dL POC Glucose (mg/dL) (75-99) mg/dL Magnesium 2.4 H (1.6-2.3) mg/dL C-Reactive Protein 18.6 H (<10.0) mg/L Total Protein 5.8 L (6.3-8.2) g/dL 12/12/19 Range/Units 16:27 RBC (4.30-5.90) m/uL Hgb (13.0-17.5) gm/dL Hct (39.0-53.0) % APTT (22.0-30.0) sec BUN (9-20) mg/dL POC Glucose (mg/dL) 100 H (75-99) mg/dL Magnesium (1.6-2.3) mg/dL C-Reactive Protein (<10.0) mg/L Total Protein (6.3-8.2) g/dL Thrombosis Risk Factor Assmnt - DVT/VTE Prophylaxis DVT/VTE Prophylaxis: Pharmacologic Prophylaxis ordered - Choose All That Apply Each Factor Represents 1 point: Abnormal pulmonary function (COPD), Obesity (BMI >25), Serious lung disease incl. pneumonia (< 1month) Each Risk Factor Represents 2 Points: Age 61-74 years Thrombosis Risk Factor Assessment Total Risk Factor Score: 5 Thrombosis Risk Factor Assessment Level: High Risk Assessment and Plan Assessment: Shortness of breath secondary to acute COPD exacerbation Atypical chest pressure/pain. Rule out ACS. Recent history of COVID-19 positive contact. Rule out. Obstructive sleep apnea not on CPAP at home Hypertension Osteoarthritis GERD Anxiety/bipolar/depression/panic disorder Previous history of smoking Active marijuana use twice per week DVT prophylaxis with heparin subcu Plan: Patient will be continued on methylprednisolone 60 mg every 6 hourly and albuterol and Spiriva. COVID-19 PCR was sent report pending at this time. Continue with home blood pressure medications. Serial troponins x2-. D-dimer is not elevated. Continue with telemetry monitoring. Current pain management with Percocet. Cardiology and pulmonary was consulted. Further recommendations based on the clinical course. Time with Patient: Greater than 30
[2019-12-13 00:30] LABS: Ferritin 60.4 ng/mL (22.0-322.0)
[2019-12-13] MEDS: oxyCODONE-APAP 7.5-325MG 1 EACH TAB PO PRN ×4 (05:13→22:19)
[2019-12-13 06:04] LABS: Glucose,Whole Blood 170 mg/dL (75-99)
[2019-12-13] MEDS: PANTOPRAZOLE 40 MG TABLET PO SCH (06:08)
[2019-12-13] MEDS: hydrALAZINE HCL 25 MG TAB PO SCH ×2 (06:08→16:46)
[2019-12-13] MEDS: methylPREDNISolone SOD SUCCI 125 MG/2 ML VIAL IV SCH ×4 (06:09→22:54)
[2019-12-13] MEDS: INSULIN ASPART (NovoLOG) 100 UNIT/ML VIAL SQ SCH ×4 (06:10→20:56)
[2019-12-13] MEDS: SERTRALINE 100 MG TAB PO SCH (07:56)
[2019-12-13] MEDS: amLODIPine 10 MG TAB PO SCH (07:56)
[2019-12-13] MEDS: TAMSULOSIN 0.4 MG CAP.ER.24H PO SCH (07:56)
[2019-12-13] MEDS: buPROPion XL 150 MG TAB.ER.24H PO SCH ×2 (07:56→20:40)
[2019-12-13] MEDS: HEPARIN SODIUM,PORCINE 5,000 UNIT/ML 1 ML VIAL SQ SCH ×3 (07:56→22:54)
[2019-12-13] MEDS: MONTELUKAST 10 MG TAB PO SCH (07:57)
[2019-12-13] MEDS: METOPROLOL SUCCINATE (ER) 25 MG TAB.ER.24H PO SCH (07:57)
[2019-12-13] MEDS: LORATADINE 10 MG TAB PO SCH (07:57)
[2019-12-13] MEDS: HYDROCHLOROTHIAZIDE 25 MG TAB PO SCH (07:57)
[2019-12-13] MEDS: FINASTERIDE 5 MG TAB PO SCH (07:57)
[2019-12-13] MEDS: BUPRENORPHINE HCL 150 MCG SUBLINGUAL SCH ×2 (07:58→20:32)
[2019-12-13] MEDS: ALBUTEROL HFA INHALER INHALATION SCH ×4 (08:19→19:57)
--- NOTE | 2019-12-13 10:15 | CONS ---
CONSULTATION CHIEF COMPLAINT: Chest pain. Milo is a 64-year-old gentleman with history of COPD, obstructive sleep apnea, anxiety, bipolar mood disorder, who presented to hospital complaining of shortness of breath, wheezing and productive sputum. The symptoms have been going on for the last month and had been tried on outpatient antibiotic and steroids without much improvement for which he is admitted to hospital. The patient also complains of left-sided chest pain. There is no radiation of pain to neck, arm, or back, and there is no associated diaphoresis. Patient's father from stroke and a brother recently from COVID infection. At the time of my evaluation this morning, he still appears short of breath at rest. His EKG shows sinus rhythm with right bundle branch block. Troponins are negative. Venous Duplex is negative for DVT. PAST MEDICAL HISTORY: Significant for COPD and hypertension. MEDICATIONS: Medications at home included Percocet, hydralazine, Wellbutrin, Norvasc, Flomax, Zoloft, Singulair, Lopressor, Lozol, Voltaren. Allergic to PEANUTS, POLLEN and DUST. FAMILY HISTORY: As described above. SOCIAL HISTORY: Significant for smoking. There is no history of EtOH abuse or drug abuse. REVIEW OF SYSTEMS: HEENT: Unremarkable. CARDIAC: As described above. RESPIRATORY: As described above. GI; Negative. GENITOURINARY: Negative. ALLERGY/IMMUNOLOGY: Negative. SKIN: Negative. MUSCULOSKELETAL: Negative. ENDOCRINE: Negative. HEMATOLOGICAL: Negative. PHYSICAL EXAM: Patient is comfortable at rest. Heart rate is 83. Blood pressure is 136/66, respiratory rate is 18. Chest exam reveals diffuse bilateral rhonchi. Heart exam reveals first and second heart sounds. No gallop. No murmur. Abdomen is soft. Exam of the extremities did not reveal any edema. Peripheral pulses are felt. Chest x-ray shows mild cardiomegaly but is otherwise within normal limits. ASSESSMENT: 1. Precordial chest pain. 2. Chronic obstructive pulmonary disease exacerbation. 3. Hypertension. PLAN: The patient's clinical presentation is consistent with COPD exacerbation. Chest pain seems to be related to COPD and does not seem cardiac in origin. I will obtain a 2D echo to assess LV function and wall motion. No further cardiac workup at this time. Will follow the patient with interest. Once COPD shows resolve, patient will undergo a stress test in the outpatient setting. MMODL / IJN: [id number] /
[2019-12-13 11:26] LABS: Glucose,Whole Blood 160 mg/dL (75-99)
[2019-12-13] MEDS: SYMBICORT 80-4.5 MCG INHALER INHALATION SCH ×2 (11:54→19:57)
[2019-12-13] MEDS: TIOTROPIUM 18 MCG/PUFF INHALER INHALATION SCH (11:54)
--- NOTE | 2019-12-13 12:00 | ECHOF ---
Referral Reason:cp MEASUREMENTS -------- HEIGHT: 177.8 cm WEIGHT: 100.7 kg BP: 126/66 RVIDd: 3.8 cm (< 3.3) IVSd: 1.8 cm (0.6 - 1.1) LVIDd: 3.9 cm (3.9 - 5.3) LVPWd: 1.8 cm (0.6 - 1.1) IVSs: 2.4 cm LVIDs: 2.3 cm LVPWs: 2.1 cm LAESV Index (A-L): 24.44 ml/m Ao Diam: 3.4 cm (2.0 - 3.7) AV Cusp: 2.2 cm (1.5 - 2.6) MV EXCURSION: 19.132 mm (> 18.000) MV EF SLOPE: 35 mm/s (70 - 150) EPSS: 0.8 cm MV E Anatoliy: 0.68 m/s MV DecT: 145 ms MV A Aantoliy: 0.87 m/s MV E/A Ratio: 0.78 RAP: 5.00 mmHg RVSP: 32.38 mmHg FINDINGS -------- Sinus rhythm. This was a technically difficult study with suboptimal views. The left ventricular size is normal. There is severe concentric left ventricular hypertrophy. Ove rall left ventricular systolic function is normal with, an EF between 55 - 60 %. The diastolic fill ing pattern is normal for the age of the patient 11.18. The right ventricle is mild to moderately enlarged. Normal LA size by volume 22+/-6 ml/m2. The right atrium was not well visualized. 5.0mg of Lumason was utilized for enhancement of images Interatrial and interventricular septum intact. The aortic valve is trileaflet and appears structurally normal. There is no evidence of aortic regu rgitation. There is no evidence of aortic stenosis. No mitral regurgitation. Mild tricuspid regurgitation present. There is borderline pulmonary artery hypertension. The righ t ventricular systolic pressure, as measured by Doppler, is 32.38mmHg. There is no pulmonic regurgitation present. The aortic root size is normal. IVC Not well visulized. There is no pericardial effusion. CONCLUSIONS -------- 1. Sinus rhythm. 2. This was a technically difficult study with suboptimal views. 3. The left ventricular size is normal. 4. There is severe concentric left ventricular hypertrophy. 5. Overall left ventricular systolic function is normal with, an EF between 55 - 60 %. 6. The diastolic filling pattern is normal for the age of the patient 11.18 7. The right ventricle is mild to moderately enlarged. 8. Normal LA size by volume 22+/-6 ml/m2. 9. The right atrium was not well visualized. 10. 5.0mg of Lumason was utilized for enhancement of images 11. Interatrial and interventricular septum intact. 12. The aortic valve is trileaflet and appears structurally normal. 13. There is no evidence of aortic regurgitation. 14. There is no evidence of aortic stenosis. 15. No mitral regurgitation. 16. Mild tricuspid regurgitation present. 17. There is borderline pulmonary artery hypertension. 18. The right ventricular systolic pressure, as measured by Doppler, is 32.38mmHg. 19. There is no pulmonic regurgitation present. 20. The aortic root size is normal. 21. IVC Not well visulized. 22. There is no pericardial effusion. ANATOMY TEACHER: Yanet Bautista RDCS
[2019-12-13] MEDS ORDERED: HYDROmorphone 0.5 MG/0.5 ML SYRINGE IVP STA (12:05)
--- NOTE | 2019-12-13 15:21 | P.CNPUL ---
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 Chest x-ray along with mild cardiomegaly no acute process consistent with severe COPD emphysema duplex ultrasound lower extremities negative for DVT, patient also have a component of the sleep apnea but does not use a CPAP machine Review of Systems All systems: negative Past Medical History Past Medical History: Atrial Flutter, Asthma, Chest Pain / Angina, COPD, GERD/Reflux, Hypertension, Osteoarthritis (OA), Pneumonia, Sleep A pnea/CPAP/BIPAP Additional Past Medical History / Comment(s): Back problems, no CPAP use. History of Any Multi-Drug Resistant Organisms: None Reported Past Surgical History: Adenoidectomy, Bowel Resection, Cholecystectomy Additional Past Surgical History / Comment(s): Nasal surgery. Past Anesthesia/Blood Transfusion Reactions: Previous Problems w/ Anesthesia, Motion Sickness Additional Past Anesthesia/Blood Transfusion Reaction / Comment(s): States "during procedure of checking something on my left lung, I turned blue and I was brought right back out anesthesia and procedure was cancelled". Clausterphobia. Past Psychological History: Anxiety, Bipolar, Depression, Panic Disorder Additional Psychological History / Comment(s): Single and lives independently. No experience. No international travel. No animal exposures. He has stopped smoking. He has a history of heavy alcohol use but that's been many years. Denies recreational drug use Smoking Status: Former smoker Past Alcohol Use History: Heavy Additional Past Alcohol Use History / Comment(s): Started smoking age 19(1974) smoked 1 ppd and quit 1987. Stopped drinking in 2017. Past Drug Use History: Marijuana Additional Drug Use History / Comment(s): "Eats marijuana candy, 2 times per week." Aware no use 24 hrs prior to procedure. - Past Family History Mother Family Medical History: Asthma Additional Family Medical History / Comment(s): at age 62 Father Family Medical History: CVA/TIA Additional Family Medical History / Comment(s): at age 90 Medications and Allergies Home Medications Medication Instructions Recorded Confirmed Type Montelukast [Singulair] 10 mg PO DAILY 03/16/14 12/12/19 History Sertraline [Zoloft] 100 mg PO DAILY 11/04/18 12/12/19 History buPROPion HCL [Wellbutrin XL] 150 mg PO BID 05/02/19 12/12/19 History Albuterol Nebulized [Ventolin 2.5 mg INHALATION RT-QID PRN 09/04/19 12/12/19 History Nebulized] Fluticasone/Umeclidin/Vilanter 1 puff INHALATION RT-DAILY 09/04/19 12/12/19 History [Philippe Ellipta 100-62.5-25] Metoprolol Tartrate [Lopressor] 25 mg PO DAILY 09/04/19 12/12/19 History Baclofen 10 mg PO TID-W/MEALS PRN 11/18/19 12/12/19 History Buprenorphine HCl [Belbuca] 150 mcg BUCCAL Q12H 11/18/19 12/12/19 History Cetirizine HCl 10 mg PO DAILY 11/18/19 12/12/19 History Diclofenac Sodium [Voltaren] 75 mg PO BID 11/18/19 12/12/19 History Finasteride [Proscar] 5 mg PO DAILY 11/18/19 12/12/19 History Tamsulosin HCl [Flomax] 0.4 mg PO DAILY 11/18/19 12/12/19 History hydrALAZINE HCL 25 mg PO BID-W/MEALS 11/18/19 12/12/19 History oxyCODONE-APAP 7.5-325MG [Percocet 1 tab PO Q6HR PRN 11/18/19 12/12/19 History 7.5-325 mg] amLODIPine [Norvasc] 10 mg PO DAILY #0 11/19/19 12/12/19 Rx Albuterol Sulfate [Ventolin HFA] 1 - 2 puff INHALATION RT-Q6H PRN 12/12/19 12/12/19 History Indapamide [Lozol] 2.5 mg PO DAILY 12/12/19 12/12/19 History Omeprazole 20 mg PO Q12H 12/12/19 12/12/19 History Allergies Allergy/AdvReac Type Severity Reaction Status Date / Time peanut Allergy ALLERGY Verified 12/12/19 19:09 TESTING pollen extracts Allergy ALLERGY Verified 12/12/19 19:09 TESTING DUST Allergy ALLERGY Uncoded 12/12/19 11:56 TESTING Physical Exam Vitals: Vital Signs Temp Pulse Resp BP Pulse Ox 12/13/19 15:11 74 18 12/13/19 15:07 98.6 F 74 18 121/66 97 12/13/19 11:30 97.6 F 60 18 133/79 94 L 12/13/19 07:55 97.6 F 83 18 126/66 93 L 12/13/19 07:40 83 18 12/13/19 04:00 97.9 F 78 18 128/73 96 12/13/19 00:00 98.0 F 65 18 123/65 94 L 12/12/19 20:00 98.2 F 63 18 138/78 96 12/12/19 16:35 16 12/12/19 16:33 97.6 F 54 L 16 127/74 94 L Intake and Output 12/13/19 12/13/19 12/13/19 06:59 14:59 22:59 Intake Total 850 10 Balance 850 10 Intake: IV 10 10 Invasive Line 2 10 10 Oral 840 Other: Voiding Method Urinal Urinal Urinal # Voids 1 Weight 101 kg - Constitutional General appearance: disheveled, mild distress, morbidly obese - EENT Eyes: PERRLA Ears: bilateral: normal - Neck Neck: normal ROM Carotids: right: upstroke normal Thyroid: bilateral: normal size - Respiratory Respiratory: bilateral: diminished, wheezing - Cardiovascular Rhythm: regular Heart sounds: normal: S1, S2 - Gastrointestinal General gastrointestinal: normal bowel sounds - Musculoskeletal Musculoskeletal: gait normal, generalized weakness, strength equal bilaterally - Psychiatric Psychiatric: A&O x's 3, appropriate affect, intact judgment & insight Results - Laboratory Findings CBC and BMP: 12/12/19 12:45 12/12/19 12:45 PT/INR, D-dimer PT 9.3 sec (9.0-12.0) 12/12/19 12:45 INR 0.9 (<1.2) 12/12/19 12:45 D-Dimer 0.35 mg/L FEU (<0.60) 12/12/19 12:45 Abnormal lab findings: Abnormal Labs 12/12/19 12/12/19 12/12/19 12:45 12:45 12:45 RBC 3.90 L Hgb 12.2 L Hct 37.3 L APTT 21.1 L BUN 24 H POC Glucose (mg/dL) Magnesium 2.4 H C-Reactive Protein 18.6 H Total Protein 5.8 L 12/12/19 12/12/19 12/13/19 16:27 20:45 06:03 RBC Hgb Hct APTT BUN POC Glucose (mg/dL) 100 H 165 H 170 H Magnesium C-Reactive Protein Total Protein 12/13/19 11:19 RBC Hgb Hct APTT BUN POC Glucose (mg/dL) 160 H Magnesium C-Reactive Protein Total Protein - Diagnostic Findings Chest x-ray: report reviewed, image reviewed Assessment and Plan Assessment: Acute COPD exacerbation Acute tracheobronchitis Severe degree of degenerative joint disease osteoarthritis of spine Sleep disorder breathing and sleep apnea Plan: Continue IV steroids breathing treatment antibiotics Continue supportive care increase activity as tolerated Pain management as per pain service/primary service Time with Patient: Greater than 30
[2019-12-13 16:22] LABS: Glucose,Whole Blood 182 mg/dL (75-99)
[2019-12-13] MEDS: guaiFENesin-DM 100-10MG/5ML 10 ML CUP PO PRN (20:40)
[2019-12-13] MEDS: LIDOCAINE 5% PATCH TOPICAL SCH (20:40)
[2019-12-13 20:55] LABS: Glucose,Whole Blood 162 mg/dL (75-99)
[2019-12-13] MEDS: MELATONIN 3 MG TABLET PO PRN (22:19)
[2019-12-14] MEDS: oxyCODONE-APAP 7.5-325MG 1 EACH TAB PO PRN ×4 (05:02→23:14)
[2019-12-14] MEDS: guaiFENesin-DM 100-10MG/5ML 10 ML CUP PO PRN (05:25)
[2019-12-14] MEDS: methylPREDNISolone SOD SUCCI 125 MG/2 ML VIAL IV SCH ×2 (05:25→11:43)
[2019-12-14 06:14] LABS: Glucose,Whole Blood 136 mg/dL (75-99)
[2019-12-14] MEDS: hydrALAZINE HCL 25 MG TAB PO SCH ×2 (06:19→17:31)
[2019-12-14] MEDS: PANTOPRAZOLE 40 MG TABLET PO SCH (06:19)
[2019-12-14] MEDS: INSULIN ASPART (NovoLOG) 100 UNIT/ML VIAL SQ SCH ×4 (06:19→23:05)
[2019-12-14] MEDS: SYMBICORT 80-4.5 MCG INHALER INHALATION SCH ×2 (07:11→19:10)
[2019-12-14] MEDS: ALBUTEROL HFA INHALER INHALATION SCH ×4 (07:11→19:10)
[2019-12-14] MEDS: TIOTROPIUM 18 MCG/PUFF INHALER INHALATION SCH (07:12)
[2019-12-14] MEDS: BUPRENORPHINE HCL 150 MCG SUBLINGUAL SCH ×2 (08:19→23:06)
[2019-12-14] MEDS: HEPARIN SODIUM,PORCINE 5,000 UNIT/ML 1 ML VIAL SQ SCH ×3 (08:28→23:14)
[2019-12-14] MEDS: BACLOFEN 10 MG TAB PO PRN ×2 (08:30→17:30)
[2019-12-14] MEDS: amLODIPine 10 MG TAB PO SCH (08:30)
[2019-12-14] MEDS: buPROPion XL 150 MG TAB.ER.24H PO SCH ×2 (08:30→23:14)
[2019-12-14] MEDS: FINASTERIDE 5 MG TAB PO SCH (08:30)
[2019-12-14] MEDS: HYDROCHLOROTHIAZIDE 25 MG TAB PO SCH (08:30)
[2019-12-14] MEDS: TAMSULOSIN 0.4 MG CAP.ER.24H PO SCH (08:31)
[2019-12-14] MEDS: METOPROLOL SUCCINATE (ER) 25 MG TAB.ER.24H PO SCH (08:31)
[2019-12-14] MEDS: SERTRALINE 100 MG TAB PO SCH (08:31)
[2019-12-14] MEDS: MONTELUKAST 10 MG TAB PO SCH (08:31)
[2019-12-14] MEDS: LORATADINE 10 MG TAB PO SCH (08:31)
--- NOTE | 2019-12-14 09:45 | P.PN ---
Subjective Progress Note Date: 12/13/19 Patient is a 64-year-old male with a known history of hypertension, COPD, obstructive sleep apnea not using CPAP, GERD, anxiety/bipolar/depression and panic disorder and previous history of smoking and marijuana use 2 times per week came to ER with the complaints of shortness of breath, cough with whitish sputum production. Patient states that he has been having worsening shortness of breath for the past 1 month. Patient was on course of antibiotics and steroids which she completed yesterday without much improvement. Patient also states that she has been having chest pressure mainly in the left retrosternal pain. No associated nausea vomiting. No radiation of the pain. Patient states that recently one brother with complication of cancer and other brother with COVID infection. Patient attended his in October. Denied any complaints of fever or chills. Chest x-ray showed mild cardiomegaly without acute cardiopulmonary process. Right lower extremity venous duplex scan is negative for DVT. EKG showed sinus bradycardia. Patient is currently 94% on room air. Afebrile while in the hospital. Laboratory data showed WBC 5.8, hemoglobin 12.2 and platelets 211, d-dimer 0.35, CRP 18.6, Troponin x2- lactic acid 1.1 12/13/2019 Patient is currently lying in the bed comfortably. Saturating well on oxygen. Still having exertional dyspnea. Also complains of come back pain and requesting IV pain medications. Patient will be given 1 unit dose of 0.5 Dilaudid. IV. Otherwise patient is being continued on IV steroids, breathing treatments and antibiotics for COPD exacerbation. Patient has been afebrile. Current medications reviewed. Objective - Vital Signs Vital signs: Vital Signs Temp 97.7 F 12/13/19 20:00 Pulse 74 12/13/19 20:00 Resp 18 12/13/19 20:00 BP 116/44 12/13/19 20:00 Pulse Ox 94 L 12/13/19 20:00 Intake & Output 12/13/19 12/13/19 12/14/19 06:59 18:59 06:59 Intake Total 1120 Balance 1120 Weight 101 kg Intake: IV 20 Invasive Line 2 20 Oral 1100 Other: Voiding Method Urinal Urinal Urinal # Voids 1 1 - Exam PHYSICAL EXAMINATION: Patient is lying in the bed comfortably, no acute distress, awake alert and oriented.. HEENT: Normocephalic. Neck is supple. Pupils reactive. Nostrils clear. Oral cavity is moist. Ears reveal no drainage. Neck reveals no JVD, carotid bruits, or thyromegaly. CHEST EXAMINATION: Trachea is central. Symmetrical expansion. bilateral wheezing present. Scattered rhonchi. CARDIAC: Normal S1, S2 with no gallops. No murmurs ABDOMEN: Soft. Bowel sounds normal. No organomegaly. No abdominal bruits. Extremities: reveal no edema. No clubbing or cyanosis Neurologically awake, alert, oriented x3 with well-coordinated movements. No focal deficits noted Skin: No rash or skin lesions. Psychiatric: Coperative. Nonsuicidal Musculoskeletal: No joint swelling or deformity. Normal range of motion. - Labs CBC & Chem 7: 12/12/19 12:45 12/12/19 12:45 Labs: Abnormal Lab Results - Last 24 Hours (Table) 12/13/19 12/13/19 12/13/19 Range/Units 06:03 11:19 16:15 POC Glucose (mg/dL) 170 H 160 H 182 H (75-99) mg/dL 12/13/19 Range/Units 20:54 POC Glucose (mg/dL) 162 H (75-99) mg/dL Microbiology - Last 24 Hours (Table) 12/12/19 12:45 Blood Culture - Preliminary Blood No Growth after 24 hours Assessment and Plan Assessment: Shortness of breath secondary to acute COPD exacerbation Atypical chest pressure/pain. Rule out ACS. Recent history of COVID-19 positive contact. Rule out. Obstructive sleep apnea not on CPAP at home Hypertension Osteoarthritis GERD Anxiety/bipolar/depression/panic disorder Previous history of smoking Active marijuana use twice per week DVT prophylaxis with heparin subcu Plan: Patient will be continued on methylprednisolone 60 mg every 6 hourly and albuterol and Spiriva. COVID-19 PCR was sent report pending at this time. Continue with home blood pressure medications. Serial troponins x2-. D-dimer is not elevated. Continue with telemetry monitoring. Current pain management with Percocet. Cardiology and pulmonary was consulted. Further recommendations based on the clinical course. Time with Patient: Greater than 30
[2019-12-14 11:32] LABS: Glucose,Whole Blood 162 mg/dL (75-99)
--- NOTE | 2019-12-14 12:56 | P.PN ---
Subjective Progress Note Date: 12/14/19 Principal diagnosis: Acute COPD exacerbation Acute tracheobronchitis Severe degree of degenerative joint disease osteoarthritis of spine Sleep disorder breathing and sleep apnea 12/14/2019, patient seen eval examined during the rounds labs reviewed medications reviewed, respiratory standpoint fairly stable, cough and congestion is present patient has been asking for pain medicine will defer to primary service and pain service, patient used to see Dr. 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 Chest x-ray along with mild cardiomegaly no acute process consistent with severe COPD emphysema duplex ultrasound lower extremities negative for DVT, patient also have a component of the sleep apnea but does not use a CPAP machine Objective - Vital Signs Vital signs: Vital Signs Temp 97.9 F 12/14/19 08:15 Pulse 81 12/14/19 08:15 Resp 18 12/14/19 08:15 BP 119/65 12/14/19 08:15 Pulse Ox 92 L 12/14/19 08:15 Intake & Output 12/13/19 12/14/19 12/14/19 18:59 06:59 18:59 Intake Total 1120 240 Balance 1120 240 Weight 100.5 kg Intake: IV 20 Invasive Line 2 20 Oral 1100 240 Other: Voiding Method Urinal Urinal Urinal # Voids 1 1 2 - Exam - Constitutional General appearance: disheveled, mild distress, morbidly obese - EENT Eyes: PERRLA Ears: bilateral: normal - Neck Neck: normal ROM Carotids: right: upstroke normal Thyroid: bilateral: normal size - Respiratory Respiratory: bilateral: diminished, wheezing - Cardiovascular Rhythm: regular Heart sounds: normal: S1, S2 - Gastrointestinal General gastrointestinal: normal bowel sounds - Musculoskeletal Musculoskeletal: gait normal, generalized weakness, strength equal bilaterally - Psychiatric Psychiatric: A&O x's 3, appropriate affect, intact judgment & insight - Labs CBC & Chem 7: 12/12/19 12:45 12/12/19 12:45 Labs: Abnormal Lab Results - Last 24 Hours (Table) 12/13/19 12/13/19 12/14/19 Range/Units 16:15 20:54 06:13 POC Glucose (mg/dL) 182 H 162 H 136 H (75-99) mg/dL 12/14/19 Range/Units 11:31 POC Glucose (mg/dL) 162 H (75-99) mg/dL Microbiology - Last 24 Hours (Table) 12/12/19 12:45 Blood Culture - Preliminary Blood No Growth after 24 hours Assessment and Plan Assessment: Acute COPD exacerbation Acute tracheobronchitis Severe degree of degenerative joint disease osteoarthritis of spine Sleep disorder breathing and sleep apnea Plan: Continue IV steroids breathing treatment antibiotics Continue supportive care increase activity as tolerated Pain management as per pain service/primary service Time with Patient: Greater than 30
--- NOTE | 2019-12-14 14:07 | P.PN ---
Subjective Progress Note Date: 12/14/19 Principal diagnosis: Patient is a 64-year-old male with a known history of hypertension, COPD, obstructive sleep apnea not using CPAP, GERD, anxiety/bipolar/depression and panic disorder and previous history of smoking and marijuana use 2 times per week came to ER with the complaints of shortness of breath, cough with whitish sputum production. Patient states that he has been having worsening shortness of breath for the past 1 month. Patient was on course of antibiotics and steroids which she completed yesterday without much improvement. Patient also states that she has been having chest pressure mainly in the left retrosternal pain. No associated nausea vomiting. No radiation of the pain. Patient states that recently one brother with complication of cancer and other brother with COVID infection. Patient attended his in October. Denied any complaints of fever or chills. Chest x-ray showed mild cardiomegaly without acute cardiopulmonary process. Right lower extremity venous duplex scan is negative for DVT. EKG showed sinus bradycardia. Patient is currently 94% on room air. Afebrile while in the hospital. Laboratory data showed WBC 5.8, hemoglobin 12.2 and platelets 211, d-dimer 0.35, CRP 18.6, Troponin x2- lactic acid 1.1 12/13/2019 Patient is currently lying in the bed comfortably. Saturating well on oxygen. Still having exertional dyspnea. Also complains of come back pain and requesting IV pain medications. Patient will be given 1 unit dose of 0.5 Dilaudid. IV. Otherwise patient is being continued on IV steroids, breathing treatments and antibiotics for COPD exacerbation. Patient has been afebrile. Current medications reviewed. 12/14/2019 Patient is seen and evaluated in follow-up sleeping but easily arousable. Colleen ent continues to have shortness of breath with exertion and has been coughing. Wheezing slightly improved from yesterday. Patient continues to request pain medication and states his Percocets are not helping. Consulted Dr. Marcus was placed as he has seen him in the past for pain management and is pending at this time. IV steroids will be titrated down and will continue with oral tomorrow. Patient to continue with inhalers and Robitussin for cough. Currently no reports of chest pain or palpitations. Patient is afebrile. No reports of nausea or vomiting and patient is tolerating diet. Covid 19 testing was negative. Objective - Vital Signs Vital signs: Vital Signs Temp 97.9 F 12/14/19 08:15 Pulse 81 12/14/19 08:15 Resp 18 12/14/19 08:15 BP 119/65 12/14/19 08:15 Pulse Ox 92 L 12/14/19 08:15 Intake & Output 12/13/19 12/14/19 12/14/19 18:59 06:59 18:59 Intake Total 1120 240 Balance 1120 240 Weight 100.5 kg Intake: IV 20 Invasive Line 2 20 Oral 1100 240 Other: Voiding Method Urinal Urinal Urinal # Voids 1 1 2 - Exam Patient is lying in the bed comfortably, no acute distress, asleep but easily arousable, alert and oriented.. HEENT: Normocephalic. Neck is supple. Pupils reactive. Nostrils clear. Oral cavity is moist. Ears reveal no drainage. Neck reveals no JVD, carotid bruits, or thyromegaly. CHEST EXAMINATION: Trachea is central. Symmetrical expansion. bilateral wheezing present. Scattered rhonchi. Wheezing improved CARDIAC: Normal S1, S2 with no gallops. No murmurs ABDOMEN: Soft. Bowel sounds normal. No organomegaly. No abdominal bruits. Extremities: reveal no edema. No clubbing or cyanosis Neurologically awake, alert, oriented x3 with well-coordinated movements. No focal deficits noted Skin: No rash or skin lesions. Psychiatric: Cooperative. Non-suicidal Musculoskeletal: No joint swelling or deformity. Normal range of motion. - Labs CBC & Chem 7: 12/12/19 12:45 12/12/19 12:45 Labs: Abnormal Lab Results - Last 24 Hours (Table) 12/13/19 12/13/19 12/14/19 Range/Units 16:15 20:54 06:13 POC Glucose (mg/dL) 182 H 162 H 136 H (75-99) mg/dL 12/14/19 Range/Units 11:31 POC Glucose (mg/dL) 162 H (75-99) mg/dL Microbiology - Last 24 Hours (Table) 12/12/19 12:45 Blood Culture - Preliminary Blood No Growth after 24 hours Assessment and Plan Assessment: Shortness of breath secondary to acute COPD exacerbation Atypical chest pressure/pain. Ruled out ACS. Recent history of COVID-19 positive contact. Covid 19 testing negative. Ruled out. Obstructive sleep apnea not on CPAP at home Hypertension Osteoarthritis GERD Anxiety/bipolar/depression/panic disorder Previous history of smoking Active marijuana use twice per week DVT prophylaxis with heparin subcu Plan: Patient will be continued on IV steroids and has been titrated down to 40 mg every 12 and will transition to oral tomorrow. Continue albuterol and Spiriva. Pulmonary following. COVID-19 PCR was negative. Continue with home blood pressure medications. Serial troponins x2-. D-dimer is not elevated. Pain management consulted as patient continues to request Dilaudid and states his Percocets are not helping. Current pain management with Percocet. Pulmonary following. Further recommendations based on the clinical course. Po ssible discharge in 24-48 hours.
--- NOTE | 2019-12-14 14:18 | P.PN ---
Subjective Progress Note Date: 12/14/19 This is a 64-year-old gentleman with history of COPD, obstructive sleep apnea, anxiety, bipolar mood disorder, nicotine dependence, who presented to the hospital with symptoms of wheezing, productive sputum and shortness of breath. According to the patient he has been dealing with this for over a month. He was treated as an outpatient on antibiotics and steroids with not much improvement. Patient also had an episode of left-sided chest pain. He was seen in consultation yesterday by Dr. Ann, his troponins were negative, venous duplex study was negative for DVT. Echocardiogram with Doppler study revealed a normal left ventricular systolic function. Borderline pulmonary artery hypertension. Objective - Vital Signs Vital signs: Vital Signs Temp 97.9 F 12/14/19 08:15 Pulse 81 12/14/19 08:15 Resp 18 12/14/19 08:15 BP 119/65 12/14/19 08:15 Pulse Ox 92 L 12/14/19 08:15 Intake & Output 12/13/19 12/14/19 12/14/19 18:59 06:59 18:59 Intake Total 1120 465 Balance 1120 465 Weight 100.5 kg Intake: IV 20 Invasive Line 2 20 Oral 1100 465 Other: Voiding Method Urinal Urinal Urinal # Voids 1 1 2 - Exam PHYSICAL EXAMINATION: GENERAL: 64-year-old gentleman in no acute distress at the time of my examination HEENT: Head is atraumatic, normocephalic. Pupils equal, round. Sclera anicteric. Conjunctiva are clear. Mucous membranes of the mouth are moist. Neck is supple. There is no elevated jugular venous pressure. No carotid bruit is heard. HEART EXAMINATION: Heart S1, S2 normal. No murmur or gallop heard. CHEST EXAMINATION: Reveal scattered coarse rhonchi and wheezing throughout. ABDOMEN: Soft, nontender. Bowel sounds are heard. No organomegaly noted. EXTREMITIES: 2+ peripheral pulses with no evidence of peripheral edema and no calf tenderness noted. NEUROLOGIC patient is awake, alert and oriented 3 . . - Labs CBC & Chem 7: 12/12/19 12:45 12/12/19 12:45 Labs: Abnormal Lab Results - Last 24 Hours (Table) 12/13/19 12/13/19 12/14/19 Range/Units 16:15 20:54 06:13 POC Glucose (mg/dL) 182 H 162 H 136 H (75-99) mg/dL 12/14/19 Range/Units 11:31 POC Glucose (mg/dL) 162 H (75-99) mg/dL Microbiology - Last 24 Hours (Table) 12/12/19 12:45 Blood Culture - Preliminary Blood No Growth after 24 hours Assessment and Plan Plan: Assessment and plan #1 precordial chest pain #2 exacerbation of COPD #3 nicotine dependence #4 hypertension Plan Echocardiogram with Doppler study revealed a normal left ventricular systolic function. No further cardiac workup at this time. As an outpatient we will schedule him for a stress test. We will follow him along with you now on an as- needed basis only, make a follow-up appointment on discharge with cardiology. DNP note has been reviewed, I agree with a documented findings and plan of care. Patient was seen and examined.
[2019-12-14 16:48] LABS: Glucose,Whole Blood 128 mg/dL (75-99)
[2019-12-14 20:23] LABS: Glucose,Whole Blood 136 mg/dL (75-99)
[2019-12-14] MEDS: LIDOCAINE 5% PATCH TOPICAL SCH (23:13)
[2019-12-14] MEDS: methylPREDNISolone SOD SUCCI 40 MG/ML 1 ML VIAL IV SCH (23:14)
[2019-12-14] MEDS: MELATONIN 3 MG TABLET PO PRN (23:17)
[2019-12-15] MEDS: BACLOFEN 10 MG TAB PO PRN (00:02)
[2019-12-15] MEDS: guaiFENesin-DM 100-10MG/5ML 10 ML CUP PO PRN (00:26)
[2019-12-15] MEDS: oxyCODONE-APAP 7.5-325MG 1 EACH TAB PO PRN ×2 (06:28→12:23)
[2019-12-15 06:57] LABS: Glucose,Whole Blood 126 mg/dL (75-99)
[2019-12-15] MEDS: INSULIN ASPART (NovoLOG) 100 UNIT/ML VIAL SQ SCH ×2 (07:15→12:24)
[2019-12-15 08:02] VITALS: BP 142/75; PULSE 69; RESP 17; TEMP 97.4
[2019-12-15] MEDS: ALBUTEROL HFA INHALER INHALATION SCH ×2 (08:04→11:41)
[2019-12-15] MEDS: TIOTROPIUM 18 MCG/PUFF INHALER INHALATION SCH (08:05)
[2019-12-15] MEDS: SYMBICORT 80-4.5 MCG INHALER INHALATION SCH (08:05)
[2019-12-15] MEDS: methylPREDNISolone SOD SUCCI 40 MG/ML 1 ML VIAL IV SCH (09:00)
[2019-12-15] MEDS: hydrALAZINE HCL 25 MG TAB PO SCH (09:00)
[2019-12-15] MEDS: TAMSULOSIN 0.4 MG CAP.ER.24H PO SCH (09:00)
[2019-12-15] MEDS: HEPARIN SODIUM,PORCINE 5,000 UNIT/ML 1 ML VIAL SQ SCH (09:00)
[2019-12-15] MEDS: LORATADINE 10 MG TAB PO SCH (09:00)
[2019-12-15] MEDS: amLODIPine 10 MG TAB PO SCH (09:00)
[2019-12-15] MEDS: PANTOPRAZOLE 40 MG TABLET PO SCH (09:00)
[2019-12-15] MEDS: LIDOCAINE 5% PATCH TOPICAL SCH (09:01)
[2019-12-15] MEDS: METOPROLOL SUCCINATE (ER) 25 MG TAB.ER.24H PO SCH (09:01)
[2019-12-15] MEDS: HYDROCHLOROTHIAZIDE 25 MG TAB PO SCH (09:01)
[2019-12-15] MEDS: MONTELUKAST 10 MG TAB PO SCH (09:01)
[2019-12-15] MEDS: SERTRALINE 100 MG TAB PO SCH (09:01)
[2019-12-15] MEDS: buPROPion XL 150 MG TAB.ER.24H PO SCH (09:01)
[2019-12-15] MEDS: FINASTERIDE 5 MG TAB PO SCH (09:02)
[2019-12-15 09:03] LABS: Basophils % (A) 0 %; Eosinophils % (A) 0 %; HCT 37.4 % (39.0-53.0); HGB 11.8 gm/dL (13.0-17.5); Lymphocytes # (A) 0.7 k/uL (1.0-4.8); Lymphocytes % (A) 5 %; MCH 30.4 pg (25.0-35.0); MCHC 31.7 g/dL (31.0-37.0); MCV 96.2 fL (80.0-100.0); Mean Platelet Volume 7.4; Monocytes # (A) 0.7 k/uL (0-1.0); Monocytes % (A) 5 %; Neutrophils # (A) 12.7 k/uL (1.3-7.7); Neutrophils % (A) 90 %; Platelet Count 218 k/uL (150-450); RBC 3.89 m/uL (4.30-5.90); RDW 14.2 % (11.5-15.5); WBC 14.2 k/uL (3.8-10.6)
[2019-12-15 09:17] LABS: Calcium 8.8 mg/dL (8.4-10.2); Potassium 4.3 mmol/L (3.5-5.1)
[2019-12-15] MEDS: BUPRENORPHINE HCL 150 MCG SUBLINGUAL SCH (11:48)
--- NOTE | 2019-12-15 11:59 | P.DS ---
Providers Date of admission: 12/14/19 08:17 Expected date of discharge: 12/15/19 Attending physician: Campbell Avilez Consults: 12/12/19 14:44 Consult Physician Stat Consulting Provider: Wesly Doyle Consult Reason/Comments: chest pain Do you want consulting provider notified?: Yes 12/13/19 08:03 Consult Physician Routine Consulting Provider: Nehemiah Granados Consult Reason/Comments: copd exacerbation Do you want consulting provider notified?: Yes 12/14/19 13:52 Consult Physician Stat Consulting Provider: George Trammell Consult Reason/Comments: chronic pain/ pain management Do you want consulting provider notified?: Yes Primary care physician: Deborah Shah [facility] Course: Final diagnosis Shortness of breath secondary to acute COPD exacerbation Atypical chest pressure/pain. Ruled out ACS. Recent history of COVID-19 positive contact. Covid 19 testing negative. Ruled out. Obstructive sleep apnea not on CPAP at home History of degenerative joint disease with osteoarthritis of the spine Hypertension Osteoarthritis GERD Anxiety/bipolar/depression/panic disorder Previous history of smoking Active marijuana edible use twice per week DVT prophylaxis Discharge disposition Patient is being discharged in a stable condition with guarded prognosis to home and will need to follow-up with primary care provider Dr. Shah in the outpatient setting. Patient will also need to follow-up with pain management. Patient will continue on a prednisone taper in the outpatient setting. Total time taken is 35 minutes. History of present illness This is a 64-year-old male with a known history of hypertension, COPD, obstructive sleep apnea, GERD, anxiety/bipolar/depression, panic disorder, and chronic pain came in with complaints of worsening shortness of breath and cough with whitish sputum production that had been ongoing for the last month and was being closely monitored. Patient states he was on oral dose of Zithromax along with a steroid taper without much improvement. Patient was also having some chest pressure in the left retrosternal area. Pulmonary Dr. Granados evaluated the patient during hospitalization along with cardiology and patient will need to follow-up with cardiology in the outpatient setting to schedule a stress test in the future. Patient underwent a 2-D echo showing overall left ventricular systolic function is normal with an EF between 55 and 60% with mild tricuspid regurgitation present, borderline pulmonary artery hypertension, and severe concentric left ventricular hypertrophy noted. Patient was treated with inhalers along with IV steroids and will continue with the prednisone taper in the outpatient setting. Patient also has chronic pain and sees a pain specialist in the outpatient setting. Patient will need to follow-up with them in the outpatient setting and this was discussed in detail with the patient today. Currently no reports of chest pain, worsening shortness of breath, or palpitations. Patient is afebrile. No reports of nausea or vomiting and patient is tolerating diet. Patient will be discharged today. On exam vital signs are stable. Temp is 97.4F, pulse is 69, respirations are 17, blood pressure is 142/75, oxygen saturation is 92-93% on room air. Cardio S1, S2 are present. Respiratory system shows diminished breath sounds with some scattered rhonchi and minimal wheezing noted. Abdomen is soft, obese, nontender. Nervous system shows no focal deficits. Please refer to medication reconciliation sheet for a list of medications. Patient Condition at Discharge: Stable Plan - Discharge Summary New Discharge Prescriptions: New Lidocaine 5% Patch [Lidoderm 5% Patch] 1 patch TOPICAL DAILY@2100 #20 patch predniSONE 10 mg PO DIRECTED #30 tab Metoprolol Succinate (ER) [Toprol XL] 25 mg PO DAILY 30 Days #30 tab.er.24h Continue Montelukast [Singulair] 10 mg PO DAILY Sertraline [Zoloft] 100 mg PO DAILY buPROPion HCL [Wellbutrin XL] 150 mg PO BID Fluticasone/Umeclidin/Vilanter [Trelegy Ellipta 100-62.5-25] 1 puff INHALATION RT-DAILY Albuterol Nebulized [Ventolin Nebulized] 2.5 mg INHALATION RT-QID PRN PRN Reason: Shortness Of Breath Buprenorphine HCl [Belbuca] 150 mcg BUCCAL Q12H Cetirizine HCl 10 mg PO DAILY Diclofenac Sodium [Voltaren] 75 mg PO BID Finasteride [Proscar] 5 mg PO DAILY hydrALAZINE HCL 25 mg PO BID-W/MEALS Tamsulosin HCl [Flomax] 0.4 mg PO DAILY amLODIPine [Norvasc] 10 mg PO DAILY #0 Indapamide [Lozol] 2.5 mg PO DAILY Omeprazole 20 mg PO Q12H Albuterol Sulfate [Ventolin HFA] 1 - 2 puff INHALATION RT-Q6H PRN PRN Reason: Shortness Of Breath Baclofen 10 mg PO TID-W/MEALS PRN #30 tab PRN Reason: muscle spasms oxyCODONE-APAP 7.5-325MG [Percocet 7.5-325 mg] 1 tab PO Q6HR PRN #16 tab PRN Reason: Pain Discontinued Metoprolol Tartrate [Lopressor] 25 mg PO DAILY Discharge Medication List Montelukast [Singulair] 10 mg PO DAILY 03/16/14 [History] Sertraline [Zoloft] 100 mg PO DAILY 11/04/18 [History] buPROPion HCL [Wellbutrin XL] 150 mg PO BID 05/02/19 [History] Albuterol Nebulized [Ventolin Nebulized] 2.5 mg INHALATION RT-QID PRN 09/04/19 [History] Fluticasone/Umeclidin/Vilanter [Trelegy Ellipta 100-62.5-25] 1 puff INHALATION RT-DAILY 09/04/19 [History] Buprenorphine HCl [Belbuca] 150 mcg BUCCAL Q12H 11/18/19 [History] Cetirizine HCl 10 mg PO DAILY 11/18/19 [History] Diclofenac Sodium [Voltaren] 75 mg PO BID 11/18/19 [History] Finasteride [Proscar] 5 mg PO DAILY 11/18/19 [History] Tamsulosin HCl [Flomax] 0.4 mg PO DAILY 11/18/19 [History] hydrALAZINE HCL 25 mg PO BID-W/MEALS 11/18/19 [History] amLODIPine [Norvasc] 10 mg PO DAILY #0 11/19/19 [Rx] Albuterol Sulfate [Ventolin HFA] 1 - 2 puff INHALATION RT-Q6H PRN 12/12/19 [History] Indapamide [Lozol] 2.5 mg PO DAILY 12/12/19 [History] Omeprazole 20 mg PO Q12H 12/12/19 [History] Baclofen 10 mg PO TID-W/MEALS PRN #30 tab 12/15/19 [Rx] Lidocaine 5% Patch [Lidoderm 5% Patch] 1 patch TOPICAL DAILY@2100 #20 patch 12/15/19 [Rx] Metoprolol Succinate (ER) [Toprol XL] 25 mg PO DAILY 30 Days #30 tab.er.24h 12/15/19 [Rx] oxyCODONE-APAP 7.5-325MG [Percocet 7.5-325 mg] 1 tab PO Q6HR PRN #16 tab 12/15/19 [Rx] predniSONE 10 mg PO DIRECTED #30 tab 12/15/19 [Rx] Follow up Appointment(s)/Referral(s): Deborah Shah III, MD [Primary Care Provider] - 1-2 days Activity/Diet/Wound Care/Special Instructions: Activity Limited until follow-up Follow-up with primary care provider upon discharge Follow-up with pain management Continue with prednisone taper Discharge Disposition: HOME SELF-CARE
[2019-12-15 12:00] LABS: Glucose,Whole Blood 180 mg/dL (75-99)
--- NOTE | 2019-12-15 12:10 | P.CONS ---
History of Present Illness - Chief Complaint Chronic pain syndrome - History of Present Illness I had the opportunity see patient for inpatient rehab consultation with regard to patient known to me in past from chronic pain syndrome. He was admitted to [facility] December 11 with shortness of breath. He reports complaints of pain and chest neck and back which are all long-standing as his pulmonary fibrosis. Patient has ready-made diagnosis for frequent readmissions which she does do. Was seen by Dr. Granados for pulmonary. Chest x-ray with mild cardiomegaly. Right leg Doppler negative for DVT. Patient reports independent in room including bathroom privileges. Reports dislike of current chronic pain doctor, Dr. Lnicoln. Review of Systems Review of systems: ENT: Denies sneezes or discharge. Eyes: Denies discharge or photophobia. Cardiac: Denies chest pain or palpitation. Pulmonary: Chest discomfort. Gastrointestinal: Denies nausea, emesis, constipation, diarrhea. Genitourinary: Denies discharge or frequency. Musculoskeletal: Complaints of neck and back pain. Neurologic: Denies motor or sensory change. Endocrine: Denies shakes or sweats. Oncology: Denies cancers. Dermatologic: Denies rash, itching, pruritus. ALLERGY/immunology: Denies sneezes, rashes. Past Medical History Past Medical History: Atrial Flutter, Asthma, Chest Pain / Angina, COPD, GERD/Reflux, Hypertension, Osteoarthritis (OA), Pneumonia, Sleep Apnea/CPAP/BIP AP Additional Past Medical History / Comment(s): Back problems, no CPAP use. History of Any Multi-Drug Resistant Organisms: None Reported Past Surgical History: Adenoidectomy, Bowel Resection, Cholecystectomy Additional Past Surgical History / Comment(s): Nasal surgery. Past Anesthesia/Blood Transfusion Reactions: Previous Problems w/ Anesthesia, Motion Sickness Additional Past Anesthesia/Blood Transfusion Reaction / Comm: States "during procedure of checking something on my left lung, I turned blue and I was brought right back out anesthesia and procedure was cancelled". Clausterphobia. Past Psychological History: Anxiety, Bipolar, Depression, Panic Disorder Additional Psychological History / Comment(s): Single and lives independently. No experience. No international travel. No animal exposures. He has stopped smoking. He has a history of heavy alcohol use but that's been many years. Denies recreational drug use Smoking Status: Former smoker Past Alcohol Use History: Heavy Additional Past Alcohol Use History / Comment(s): Started smoking age 19(1974) smoked 1 ppd and quit 1987. Stopped drinking in 2018. Past Drug Use History: Marijuana Additional Drug Use History / Comment(s): "Eats marijuana candy, 2 times per week." Aware no use 24 hrs prior to procedure. - Past Family History Mother Family Medical History: Asthma Additional Family Medical History / Comment(s): at age 62 Father Family Medical History: CVA/TIA Additional Family Medical History / Comment(s): at age 90 Medications and Allergies Home Medications Medication Instructions Recorded Confirmed Type Montelukast [Singulair] 10 mg PO DAILY 03/16/14 12/12/19 History Sertraline [Zoloft] 100 mg PO DAILY 11/04/18 12/12/19 History buPROPion HCL [Wellbutrin XL] 150 mg PO BID 05/02/19 12/12/19 History Albuterol Nebulized [Ventolin 2.5 mg INHALATION RT-QID PRN 09/04/19 12/12/19 History Nebulized] Fluticasone/Umeclidin/Vilanter 1 puff INHALATION RT-DAILY 09/04/19 12/12/19 History [Trelegy Ellipta 100-62.5-25] Buprenorphine HCl [Belbuca] 150 mcg BUCCAL Q12H 11/18/19 12/12/19 History Cetirizine HCl 10 mg PO DAILY 11/18/19 12/12/19 History Diclofenac Sodium [Voltaren] 75 mg PO BID 11/18/19 12/12/19 History Finasteride [Proscar] 5 mg PO DAILY 11/18/19 12/12/19 History Tamsulosin HCl [Flomax] 0.4 mg PO DAILY 11/18/19 12/12/19 History hydrALAZINE HCL 25 mg PO BID-W/MEALS 11/18/19 12/12/19 History amLODIPine [Norvasc] 10 mg PO DAILY #0 11/19/19 12/12/19 Rx Albuterol Sulfate [Ventolin HFA] 1 - 2 puff INHALATION RT-Q6H PRN 12/12/19 12/12/19 History Indapamide [Lozol] 2.5 mg PO DAILY 12/12/19 12/12/19 History Omeprazole 20 mg PO Q12H 12/12/19 12/12/19 History Baclofen 10 mg PO TID-W/MEALS PRN #30 tab 12/15/19 Rx Lidocaine 5% Patch [Lidoderm 5% 1 patch TOPICAL DAILY@2100 #20 12/15/19 Rx Patch] patch Metoprolol Succinate (ER) [Toprol 25 mg PO DAILY 30 Days #30 12/15/19 Rx XL] tab.er.24h oxyCODONE-APAP 7.5-325MG [Percocet 1 tab PO Q6HR PRN #16 tab 12/15/19 Rx 7.5-325 mg] predniSONE 10 mg PO DIRECTED #30 tab 12/15/19 Rx Allergies Allergy/AdvReac Type Severity Reaction Status Date / Time peanut Allergy ALLERGY Verified 12/12/19 19:09 TESTING pollen extracts Allergy ALLERGY Verified 12/12/19 19:09 TESTING DUST Allergy ALLERGY Uncoded 12/12/19 11:56 TESTING Physical Exam Vitals: Vital Signs Temp Pulse Resp BP Pulse Ox 12/15/19 08:00 69 17 12/15/19 07:00 97.4 F L 69 17 142/75 92 L 12/15/19 00:00 76 18 12/14/19 19:56 98.2 F 76 18 110/67 93 L 12/14/19 16:25 98.1 F 77 18 126/76 96 Intake and Output 12/14/19 12/15/19 12/15/19 22:59 06:59 14:59 Intake Total 236 Balance 236 Intake: Oral 236 Other: Voiding Method Urinal Urinal # Voids 3 1 Skin: Good color, texture, turgor. General: Overweight build and quite comfortable appearance. Distress related to negative news. Head: Normocephalic, atraumatic. Eyes: Symmetric. Pupils equal round. Ears: Symmetric. Hearing within normal limits. Mouth: Clear. Neck: Supple. Carotid without bruit. Cardiac: Regular rate and rhythm. Lungs: Clear anteriorly and posteriorly. Abdomen: Soft active nontender. Extremities: Normal tone. Neurological: Mental status: Alert, cooperative, pleasant. Cranial nerves: Symmetric facial tone and trapezius. Motor: Normal strength and isolation all 4 limbs. Sensation: Intact throughout. DTRs: Symmetric and equal throughout. Mobility: Patient reports independent in room including bathroom privileges. Results CBC & Chem 7: 12/15/19 08:44 05/15/20 08:44 Labs: Abnormal Lab Results - Last 24 Hours (Table) 12/14/19 12/14/19 12/15/19 Range/Units 16:47 20:21 06:56 WBC (3.8-10.6) k/uL RBC (4.30-5.90) m/uL Hgb (13.0-17.5) gm/dL Hct (39.0-53.0) % Neutrophils # (1.3-7.7) k/uL Lymphocytes # (1.0-4.8) k/uL BUN (9-20) mg/dL Glucose (74-99) mg/dL POC Glucose (mg/dL) 128 H 136 H 126 H (75-99) mg/dL 12/15/19 12/15/19 12/15/19 Range/Units 08:44 08:44 11:58 WBC 14.2 H (3.8-10.6) k/uL RBC 3.89 L (4.30-5.90) m/uL Hgb 11.8 L (13.0-17.5) gm/dL Hct 37.4 L (39.0-53.0) % Neutrophils # 12.7 H (1.3-7.7) k/uL Lymphocytes # 0.7 L (1.0-4.8) k/uL BUN 42 H (9-20) mg/dL Glucose 125 H (74-99) mg/dL POC Glucose (mg/dL) 180 H (75-99) mg/dL Microbiology - Last 24 Hours (Table) 12/12/19 12:45 Blood Culture - Preliminary Blood No Growth after 48 hours Assessment and Plan (1) Adult respiratory distress syndrome Current Visit: No Status: Acute Code(s): J80 - ACUTE RESPIRATORY DISTRESS SYNDROME SNOMED Code(s): 06167038 Plan: Impression: 1. Medical debility. 2. Pulmonary fibrosis with respiratory distress syndrome. 3. Chronic pain syndrome. comments and plan: At this time patient's main concern is that I take him back his pain patient. I discussed with him that he has violated opiate agreement previously multiple occasion and I am unable and unwilling to take him back at this time. Currently on Percocet 7.5-6 and this appears be appropriate at this time. He should resume or return to his current pain doctor upon discharge. I will not be providing outpatient prescriptions for this patient.
--- NOTE | 2019-12-15 15:12 | P.PN ---
Subjective Progress Note Date: 12/15/19 Principal diagnosis: Acute COPD exacerbation Acute tracheobronchitis Severe degree of degenerative joint disease osteoarthritis of spine Sleep disorder breathing and sleep apnea 12/15/2019, trace status remains stable, cough congestion is present but nonproductive, patient oxygenation remains stable Ammann white cell count up due to steroids, remains on the supplemental oxygen saturation is 92%, hemodynamic status stable, she has been evaluated by pain service recommendation noted, agree with discharge planning 12/14/2019, patient seen eval examined during the rounds labs reviewed medications reviewed, respiratory standpoint fairly stable, cough and congestion is present patient has been asking for pain medicine will defer to primary service and pain service, patient used to see Dr. Marcus respiratory standpoint back to baseline agree with discharge planning remains stable This is a 64-year-old with long-standing history of smoking and continues also has problems associated with severe degree of degenerative joint disease involving the axial skeleton chronic has been on pain medications, patient presented into the hospital with breathing difficulty cough congestion, patient has been treated with oral steroids and antibiotic without any significant r esidual disease due to persistent symptoms came into the hospital further intervention. Chest x-ray along with mild cardiomegaly no acute process consistent with severe COPD emphysema duplex ultrasound lower extremities negative for DVT, patient also have a component of the sleep apnea but does not use a CPAP machine Objective - Vital Signs Vital signs: Vital Signs Temp 97.4 F L 12/15/19 07:00 Pulse 69 12/15/19 08:00 Resp 17 12/15/19 08:00 BP 142/75 12/15/19 07:00 Pulse Ox 92 L 12/15/19 07:00 Intake & Output 12/14/19 12/15/19 12/15/19 18:59 06:59 18:59 Intake Total 701 Balance 701 Intake: Oral 701 Other: Voiding Method Urinal Urinal Urinal # Voids 3 1 - Exam - Constitutional General appearance: disheveled, mild distress, morbidly obese - EENT Eyes: PERRLA Ears: bilateral: normal - Neck Neck: normal ROM Carotids: right: upstroke normal Thyroid: bilateral: normal size - Respiratory Respiratory: bilateral: diminished, wheezing - Cardiovascular Rhythm: regular Heart sounds: normal: S1, S2 - Gastrointestinal General gastrointestinal: normal bowel sounds - Musculoskeletal Musculoskeletal: gait normal, generalized weakness, strength equal bilaterally - Psychiatric Psychiatric: A&O x's 3, appropriate affect, intact judgment & insight - Labs CBC & Chem 7: 12/15/19 08:44 12/15/19 08:44 Labs: Abnormal Lab Results - Last 24 Hours (Table) 12/14/19 12/14/19 12/15/19 Range/Units 16:47 20:21 06:56 WBC (3.8-10.6) k/uL RBC (4.30-5.90) m/uL Hgb (13.0-17.5) gm/dL Hct (39.0-53.0) % Neutrophils # (1.3-7.7) k/uL Lymphocytes # (1.0-4.8) k/uL BUN (9-20) mg/dL Glucose (74-99) mg/dL POC Glucose (mg/dL) 128 H 136 H 126 H (75-99) mg/dL 12/15/19 12/15/19 12/15/19 Range/Units 08:44 08:44 11:58 WBC 14.2 H (3.8-10.6) k/uL RBC 3.89 L (4.30-5.90) m/uL Hgb 11.8 L (13.0-17.5) gm/dL Hct 37.4 L (39.0-53.0) % Neutrophils # 12.7 H (1.3-7.7) k/uL Lymphocytes # 0.7 L (1.0-4.8) k/uL BUN 42 H (9-20) mg/dL Glucose 125 H (74-99) mg/dL POC Glucose (mg/dL) 180 H (75-99) mg/dL Microbiology - Last 24 Hours (Table) 12/12/19 12:45 Blood Culture - Preliminary Blood No Growth after 72 hours Assessment and Plan Assessment: Acute COPD exacerbation Acute tracheobronchitis Severe degree of degenerative joint disease osteoarthritis of spine Sleep disorder breathing and sleep apnea Plan: Continue IV steroids breathing treatment antibiotics Continue supportive care increase activity as tolerated Pain management as per pain service/primary service Time with Patient: Greater than 30
== END 2019-12-15 13:55 | disposition home or self-care (01) | DRG 192 ==
LOC: EC 11:47 → 3SCARD 14:52 → OBSVTOIN 12-14 08:17 → 4SSUR 12-14 19:43
PROVIDERS: ADMIT Hospitalist; ATTEND Hospitalist
DX: J44.0 Chronic obstructive pulmonary disease with (acute) lower respiratory infection (principal); I27.21 Secondary pulmonary arterial hypertension; J84.10 Pulmonary fibrosis, unspecified; I11.0 Hypertensive heart disease with heart failure; I50.9 Heart failure, unspecified; E11.9 Type 2 diabetes mellitus without complications; F31.9 Bipolar disorder, unspecified; E66.01 Morbid (severe) obesity due to excess calories; J20.9 Acute bronchitis, unspecified; J44.1 Chronic obstructive pulmonary disease with (acute) exacerbation; G47.33 Obstructive sleep apnea (adult) (pediatric); Z20.828 Contact with and (suspected) exposure to other viral communicable diseases; R07.89 Other chest pain; G89.4 Chronic pain syndrome; M47.9 Spondylosis, unspecified; D72.829 Elevated white blood cell count, unspecified; T38.0X5A Adverse effect of glucocorticoids and synthetic analogues, initial encounter; R00.1 Bradycardia, unspecified; I45.10 Unspecified right bundle-branch block; K21.9 Gastro-esophageal reflux disease without esophagitis; F41.0 Panic disorder [episodic paroxysmal anxiety]; M19.90 Unspecified osteoarthritis, unspecified site; Z68.31 Body mass index [BMI] 31.0-31.9, adult; Z79.51 Long term (current) use of inhaled steroids; Z79.891 Long term (current) use of opiate analgesic; Z79.899 Other long term (current) drug therapy; Z87.891 Personal history of nicotine dependence; Z90.49 Acquired absence of other specified parts of digestive tract; Z87.01 Personal history of pneumonia (recurrent); Z86.79 Personal history of other diseases of the circulatory system; Z91.010 Allergy to peanuts; Z91.048 Other nonmedicinal substance allergy status; Z82.5 Family history of asthma and other chronic lower respiratory diseases; Z82.3 Family history of stroke
CPT/HCPCS: 36415; 71045; 80048; 80053; 82728; 83605; 83615; 83735; 84145; 84484; 85025; 85379; 85610; 85730; 86140; 87040; 87635; 93005; 93306; 94640; 96374; 96375; 99285

== ENCOUNTER 2019-12-23 09:39 | Emergency (ER) | payer MEDICARE, OTHER ==
[2019-12-23 09:46] VITALS: TEMP 97.9
[2019-12-23] MEDS ORDERED: KETOROLAC 30 MG/ML 1 ML VIAL IM STA (09:57)
--- NOTE | 2019-12-23 10:00 | ED ---
Lower Extremity Injury HPI - General Source: patient, RN notes reviewed, old records reviewed Mode of arrival: ambulatory Limitations: no limitations <Kaylah Ruiz - Last Filed: 12/23/19 10:33> <Ayala Casanova - Last Filed: 12/26/19 00:43> - General Chief Complaint: Extremity Injury, Lower Stated Complaint: hip pain Time Seen by Provider: 12/23/19 09:47 - History of Present Illness Initial Comments: Patient is a 64-year-old male who presents to the emergency department today for evaluation for right hip pain. He reports the pain is more lateral aspect of the hip worse with movement and weightbearing. He reports that it's been present for a few weeks. He does have history of chronic steroid use due to h istory of COPD and lung problems. He is not on current steroids at this time. Denies any respiratory issues today. Patient states she's been taking [place] 7 for pain relief. (Kaylah Ruiz) - Related Data Home Medications Medication Instructions Recorded Confirmed Montelukast [Singulair] 10 mg PO DAILY 03/16/14 12/23/19 Sertraline [Zoloft] 100 mg PO DAILY 11/04/18 12/23/19 buPROPion HCL [Wellbutrin XL] 150 mg PO BID 05/02/19 12/23/19 Albuterol Nebulized [Ventolin 2.5 mg INHALATION RT-TID PRN 09/04/19 12/23/19 Nebulized] Fluticasone/Umeclidin/Vilanter 1 puff INHALATION RT-DAILY 09/04/19 12/23/19 [[place] Ellipta 100-62.5-25] Buprenorphine HCl [Belbuca] 150 mcg BUCCAL Q12H 11/18/19 12/23/19 Cetirizine HCl 10 mg PO DAILY 11/18/19 12/23/19 Diclofenac Sodium [Voltaren] 75 mg PO BID 11/18/19 12/23/19 Finasteride [Proscar] 5 mg PO DAILY 11/18/19 12/23/19 Tamsulosin HCl [Flomax] 0.4 mg PO DAILY 11/18/19 12/23/19 hydrALAZINE HCL 25 mg PO BID-W/MEALS 11/18/19 12/23/19 Albuterol Sulfate [Ventolin HFA] 2 puff INHALATION RT-Q6H PRN 12/12/19 12/23/19 Indapamide [Lozol] 2.5 mg PO DAILY 12/12/19 12/23/19 Omeprazole 20 mg PO BID 12/12/19 12/23/19 HYDROcodone/APAP 7.5-325MG [[place] 1 tab PO Q6H PRN 12/23/19 12/23/19 7.5-325] amLODIPine [Norvasc] 5 mg PO DAILY 12/23/19 12/23/19 predniSONE See Taper PO DIRECTED 12/23/19 12/23/19 Previous Rx's Medication Instructions Recorded Baclofen 10 mg PO TID-W/MEALS PRN #30 tab 12/15/19 Metoprolol Succinate (ER) [Toprol 25 mg PO DAILY 30 Days #30 12/15/19 XL] tab.er.24h Allergies Allergy/AdvReac Type Severity Reaction Status Date / Time peanut Allergy ALLERGY Verified 12/23/19 10:20 TESTING pollen extracts Allergy ALLERGY Verified 12/23/19 10:20 TESTING DUST Allergy ALLERGY Uncoded 12/12/19 11:56 TESTING Review of Systems ROS Other: All systems not noted in ROS Statement are negative. <Kaylah Ruiz - Last Filed: 12/23/19 10:33> ROS Other: All systems not noted in ROS Statement are negative. <Ayala Casanova - Last Filed: 12/26/19 00:43> ROS Statement: Those systems with pertinent positive or pertinent negative responses have been documented in the HPI. Past Medical History Past Medical History: Atrial Flutter, Asthma, Chest Pain / Angina, COPD, GERD/Reflux, Hypertension, Osteoarthritis (OA), Pneumonia, Sleep Apnea/CPAP/BIPAP Additional Past Medical History / Comment(s): Back problems, no CPAP use. History of Any Multi-Drug Resistant Organisms: None Reported Past Surgical History: Adenoidectomy, Bowel Resection, Cholecystectomy Additional Past Surgical History / Comment(s): Nasal surgery. Past Anesthesia/Blood Transfusion Reactions: Previous Problems w/ Anesthesia, Motion Sickness Additional Past Anesthesia/Blood Transfusion Reaction / Comment(s): States "during procedure of checking something on my left lung, I turned blue and I was brought right back out anesthesia and procedure was cancelled". Clausterphobia. Past Psychological History: Anxiety, Bipolar, Depression, Panic Disorder Smoking Status: Former smoker Past Alcohol Use History: None Reported, Heavy Past Drug Use History: Marijuana - Past Family History Mother Family Medical History: Asthma Additional Family Medical History / Comment(s): at age 62 Father Family Medical History: CVA/TIA Additional Family Medical History / Comment(s): at age 90 <Kaylah Ruiz - Last Filed: 12/23/19 10:33> General Exam Limitations: no limitations General appearance: alert, in no apparent distress Head exam: Present: atraumatic, normocephalic, normal inspection Eye exam: Present: normal appearance, PERRL, EOMI. Absent: scleral icterus, conjunctival injection, periorbital swelling ENT exam: Present: normal exam, mucous membranes moist Neck exam: Present: normal inspection. Absent: tenderness, meningismus, lymphadenopathy Respiratory exam: Present: normal lung sounds bilaterally. Absent: respiratory distress, wheezes, rales, rhonchi, stridor Cardiovascular Exam: Present: regular rate, normal rhythm, normal heart sounds. Absent: systolic murmur, diastolic murmur, rubs, gallop, clicks Extremities exam: Present: normal inspection, full ROM, normal capillary refill. Absent: tenderness, pedal edema, joint swelling, calf tenderness Right Hip exam: Present: normal inspection, full ROM, tenderness (greater trochanget) Upper Leg exam: Present: normal inspection, full ROM Knee exam: Present: normal inspection, full ROM Lower Leg exam: Present: normal inspection, full ROM Ankle exam: Present: normal inspection, full ROM Foot/Toe exam: Present: normal inspection, full ROM Neurovascular tendon exam: Present: no vascular compromise Gait: observed and limited by pain Back exam: Present: normal inspection Neurological exam: Present: alert, oriented X3, CN II-XII intact Psychiatric exam: Present: normal affect, normal mood Skin exam: Present: warm, dry, intact, normal color. Absent: rash <Kaylah Ruiz - Last Filed: 12/23/19 10:33> - General Exam Comments Initial Comments: Pleasant 64-year-old male. Alert and oriented. No distress. (Kaylah Ruiz) Course Vital Signs 12/23/19 12/23/19 12/23/19 09:43 09:45 10:50 Temperature 97.9 F Pulse Rate 69 62 Respiratory 18 20 18 Rate Blood Pressure 125/79 113/67 O2 Sat by Pulse 98 97 Oximetry 12/23/19 10:51 Temperature Pulse Rate 62 Respiratory 18 Rate Blood Pressure 113/67 O2 Sat by Pulse 97 Oximetry Medical Decision Making - Radiology Data Radiology results: report reviewed <Kaylah Ruiz - Last Filed: 12/23/19 10:33> <Ayala Casanova - Last Filed: 12/26/19 00:43> - Medical Decision Making Patient's a 64-year-old male who presents emergency department today with chief complaint of lateral right-sided hip pain worse with ambulation. He is having the symptoms for the past few weeks. He is able to ambulate to emergency department today. Patient has normal pulses distally normal sensation. Full range of motion is noted and Patient is ambulatory. X-ray shows no evidence of any acute process no fracture dislocation. Some arthropathy is noted. I informed Patient of these findings. Discussed he needs follow-up with orthopedic. He does take [place] 7 for pain relief discussed anti-inflammatory medication and proper stretching. All questions answered return parameters were discussed. (Kaylah Ruiz) I was available for consultation in the emergency department. The history and physical exam were done by the midlevel provider. I was consulted for this patients care. I reviewed the case with the midlevel provider and based on their presentation of the patient, I agree with the assessment, medical decision making and plan of care as documented. Chart was dictated using [employer] dictation software. Attempts were made to correct any dictation errors however some typographical errors may persist. Patient was seen during a national state of emergency due to the Covid-19 pandemic. (Ayala Casanova) - Radiology Data There is no acute fracture dislocation in the pelvis or right hip. Mild arthropathy and possible crystalline deposition arthropathy may be present. (Kaylah Ruiz) Disposition Is patient prescribed a controlled substance at d/c from ED?: No Time of Disposition: 10:35 <Kaylah Ruiz - Last Filed: 12/23/19 10:33> <Ayala Csaanova - Last Filed: 12/26/19 00:43> Clinical Impression: Right hip pain Disposition: HOME SELF-CARE Condition: Good Instructions (If sedation given, give patient instructions): Arthralgia (ED), Hip Pain (ED) Additional Instructions: Patient advised to do gentle stretching. Apply heat and ice over sore area, alternating for 20 mins. Recommended following up with managed care specialist. Patient should take anti-inflammatory medication as well as your prescribed pain medicine. Return to emergency department if any alarming signs or symptoms occur. Referrals: Deborah Shah III, MD [Primary Care Provider] - 1-2 days
--- NOTE | 2019-12-23 10:30 | XR ---
EXAMINATION TYPE: XR Hip RT and AP Pelvis DATE OF EXAM: 12/23/2019 COMPARISON: NONE HISTORY: Right hip pain for weeks TECHNIQUE: A single AP view of the pelvis is obtained. Two views of the right hip are obtained. FINDINGS: There is no acute fracture/dislocation evident in the pelvis. The hip and sacroiliac join ts appear symmetric and some mild joint space loss is suspected. The overlying soft tissue appears u nremarkable. Question some minimal chondrocalcinosis Two views of right hip show no acute fracture or dislocation. No focal lytic or sclerotic lesion see n in the proximal right femur. The overlying soft tissue is unremarkable. IMPRESSION: There is no acute fracture or dislocation in the pelvis or right hip. Some mild arthropa thy, possible crystal deposition arthropathy may be present.
[2019-12-23 10:51] VITALS: BP 113/67; PULSE 62; RESP 18
== END 2019-12-23 10:52 | disposition home or self-care (01) ==
LOC: EC 09:39
DX: M25.551 Pain in right hip (principal); M16.11 Unilateral primary osteoarthritis, right hip; J44.9 Chronic obstructive pulmonary disease, unspecified; G47.30 Sleep apnea, unspecified; I10 Essential (primary) hypertension; F31.9 Bipolar disorder, unspecified; F41.0 Panic disorder [episodic paroxysmal anxiety]; Z79.1 Long term (current) use of non-steroidal anti-inflammatories (NSAID); Z79.51 Long term (current) use of inhaled steroids; Z79.899 Other long term (current) drug therapy; Z91.030 Bee allergy status; Z91.048 Other nonmedicinal substance allergy status; Z87.891 Personal history of nicotine dependence; Z99.89 Dependence on other enabling machines and devices
CPT/HCPCS: 73502; 99284

== ENCOUNTER 2019-12-30 19:47 | Emergency (ER) | payer MEDICARE, OTHER ==
[2019-12-30] MEDS ORDERED: IPRATROPIUM-ALBUTEROL 3 ML NEB INHALATION STA (20:26)
[2019-12-30] MEDS ORDERED: HYDROmorphone 0.5 MG/0.5 ML SYRINGE IVP STA ×2 (20:26→21:26)
[2019-12-30 20:48] LABS: Basophils % (A) 0 %; Eosinophils # (A) 0.3 k/uL (0-0.7); Eosinophils % (A) 3 %; HCT 36.5 % (39.0-53.0); HGB 12.4 gm/dL (13.0-17.5); Lymphocytes % (A) 12 %; MCH 32.3 pg (25.0-35.0); MCHC 34.1 g/dL (31.0-37.0); MCV 94.9 fL (80.0-100.0); Monocytes # (A) 0.6 k/uL (0-1.0); Monocytes % (A) 7 %; Neutrophils # (A) 6.4 k/uL (1.3-7.7); Neutrophils % (A) 77 %; Platelet Count 138 k/uL (150-450); RBC 3.84 m/uL (4.30-5.90); RDW 15.5 % (11.5-15.5); WBC 8.3 k/uL (3.8-10.6)
--- NOTE | 2019-12-30 20:53 | ED ---
Lower Extremity Injury HPI - General Chief Complaint: Extremity Injury, Lower Stated Complaint: Hip pain, GREGG Time Seen by Provider: 12/30/19 20:05 Source: patient Mode of arrival: wheelchair Limitations: no limitations - History of Present Illness Initial Comments: 64yo male presenting today for cc of right hip pain, pt states that he has had right hip pain for quite some time, he states the pain feels like it is right in the joint and increased wtih walking or any movement. Patient denies fevers, denies inability to weight bear. He ambulates with a can. Denies weakness of leg, low back pain, lose of bowel or bladder control or loss of sensation of the LE. Denies falls, leg swelling. Denies redness of the joint. Patient denies history of Gout. Patient states he was supposed to f/u with orthopedics but did not remember the name nor attempt to schedule an appointment. He states he did f/u with [facility] in office who prescribed 7.5mg norco tablets that "are doing nothing". Patient states he has history of COPD and has chronic GREGG, denies any changes or increases, he states he did not come for that but could use a treatment since they seem to work better here. Denies chest pain, leg swelling, back, jaw or arm pain. Remaining ROS (-). Upon arrival patient appears well no distress. Afebrile. - Related Data Home Medications Medication Instructions Recorded Confirmed Montelukast [Singulair] 10 mg PO DAILY 03/16/14 12/23/19 Sertraline [Zoloft] 100 mg PO DAILY 11/04/18 12/23/19 buPROPion HCL [Wellbutrin XL] 150 mg PO BID 05/02/19 12/23/19 Albuterol Nebulized [Ventolin 2.5 mg INHALATION RT-TID PRN 09/04/19 12/23/19 Nebulized] Fluticasone/Umeclidin/Vilanter 1 puff INHALATION RT-DAILY 09/04/19 12/23/19 [Trelegy Ellipta 100-62.5-25] Buprenorphine HCl [Belbuca] 150 mcg BUCCAL Q12H 11/18/19 12/23/19 Cetirizine HCl 10 mg PO DAILY 11/18/19 12/23/19 Diclofenac Sodium [Voltaren] 75 mg PO BID 11/18/19 12/23/19 Finasteride [Proscar] 5 mg PO DAILY 11/18/19 12/23/19 Tamsulosin HCl [Flomax] 0.4 mg PO DAILY 11/18/19 12/23/19 hydrALAZINE HCL 25 mg PO BID-W/MEALS 11/18/19 12/23/19 Albuterol Sulfate [Ventolin HFA] 2 puff INHALATION RT-Q6H PRN 12/12/19 12/23/19 Indapamide [Lozol] 2.5 mg PO DAILY 12/12/19 12/23/19 Omeprazole 20 mg PO BID 12/12/19 12/23/19 HYDROcodone/APAP 7.5-325MG [[place] 1 tab PO Q6H PRN 12/23/19 12/23/19 7.5-325] amLODIPine [Norvasc] 5 mg PO DAILY 12/23/19 12/23/19 predniSONE See Taper PO DIRECTED 12/23/19 12/23/19 Previous Rx's Medication Instructions Recorded Baclofen 10 mg PO TID-W/MEALS PRN #30 tab 12/15/19 Metoprolol Succinate (ER) [Toprol 25 mg PO DAILY 30 Days #30 12/15/19 XL] tab.er.24h Allergies Allergy/AdvReac Type Severity Reaction Status Date / Time peanut Allergy ALLERGY Verified 12/30/19 20:00 TESTING pollen extracts Allergy ALLERGY Verified 12/30/19 20:00 TESTING DUST Allergy ALLERGY Uncoded 12/30/19 20:00 TESTING Review of Systems ROS Statement: Those systems with pertinent positive or pertinent negative responses have been documented in the HPI. ROS Other: All systems not noted in ROS Statement are negative. Past Medical History Past Medical History: Atrial Flutter, Asthma, Chest Pain / Angina, COPD, GERD/Reflux, Hypertension, Osteoarthritis (OA), Pneumonia, Sleep Apnea/CPAP/BIPAP Additional Past Medical History / Comment(s): Back problems, no CPAP use. History of Any Multi-Drug Resistant Organisms: None Reported Past Surgical History: Adenoidectomy, Bowel Resection, Cholecystectomy Additional Past Surgical History / Comment(s): Nasal surgery. Past Anesthesia/Blood Transfusion Reactions: Previous Problems w/ Anesthesia, Motion Sickness Additional Past Anesthesia/Blood Transfusion Reaction / Comment(s): States "during procedure of checking something on my left lung, I turned blue and I was brought right back out anesthesia and procedure was cancelled". Clausterphobia. Past Psychological History: Anxiety, Bipolar, Depression, Panic Disorder Smoking Status: Former smoker Past Alcohol Use History: None Reported, Heavy Past Drug Use History: Marijuana - Past Family History Mother Family Medical History: Asthma Additional Family Medical History / Comment(s): at age 62 Father Family Medical History: CVA/TIA Additional Family Medical History / Comment(s): at age 90 General Exam - General Exam Comments Initial Comments: General: The patient is awake and alert, in no distress Eye: Pupils are equal, round and reactive to light, extra-ocular movements are intact. No nystagmus. There is normal conjunctiva bilaterally. No signs of icterus. Cardiovascular: There is a regular rate and rhythm. No murmur, rub or gallop is appreciated. Respiratory: Lungs are clear to auscultation, respirations are non-labored, breath sounds are equal. Mild expiratory wheeze. No stridor, rales, or rhonchi. Gastrointestinal: Soft, non-distended, non-tender abdomen without masses or organomegaly noted. There is no rebound or guarding present. Musculoskeletal: Normal inspection of the hip. able to weight bear and ambulate. Able to full range at the hip with mild-moderate discomfort. Strength 5/5. Sensation intact of legs b/l. DP pulses equal bilaterally 2+. Neurological: A&O x 3. CN II-XII intact grossly, There are no obvious motor or sensory deficits. Coordination appears grossly intact. Speech is normal. Skin: Skin is warm and dry and no rashes or lesions are noted. No LE edema. Psychiatric: Cooperative, appropriate mood & affect, normal judgment. Limitations: no limitations Course Vital Signs 12/30/19 12/30/19 12/30/19 19:56 20:44 20:53 Temperature 98.5 F Pulse Rate 68 72 72 Respiratory 20 Rate Blood Pressure 133/78 O2 Sat by Pulse 96 Oximetry 12/30/19 12/30/19 21:00 22:08 Temperature 97.8 F Pulse Rate 75 75 Respiratory 16 16 Rate Blood Pressure 128/77 133/82 O2 Sat by Pulse 98 98 Oximetry Medical Decision Making - Medical Decision Making 64-year-old male presenting today for chief complaint of right hip pain ongoing for over 2 weeks. X-ray previously obtained revealed possible Crystal deposit/arthritic changes. Pt has no redness, fevers. No leukocytosis mild elevation of CRP. No history of gout. Patient neurovascularly intact. Able to ambulate and weight-bear as well as range without any disproportionate pain. No suspicion at this time for septic joint. Patient will be discharged with symptomatic treatment and instruction to f/u with on outpatient basis. Patient agreeable to this care plan and ambulated out the ER. Return parameters including for fevers were discussed and patient was discharged appearing well after discussing case with Dr. Casanova Denied any new SOB. requested his nightly breathing treatment which was provided. - Lab Data Result diagrams: 12/30/19 20:33 12/30/19 20:33 Lab Results 12/30/19 12/30/19 Range/Units 20:33 20:33 WBC 8.3 (3.8-10.6) k/uL RBC 3.84 L (4.30-5.90) m/uL Hgb 12.4 L (13.0-17.5) gm/dL Hct 36.5 L (39.0-53.0) % MCV 94.9 (80.0-100.0) fL MCH 32.3 (25.0-35.0) pg MCHC 34.1 (31.0-37.0) g/dL RDW 15.5 (11.5-15.5) % Plt Count 138 L (150-450) k/uL Neutrophils % 77 % Lymphocytes % 12 % Monocytes % 7 % Eosinophils % 3 % Basophils % 0 % Neutrophils # 6.4 (1.3-7.7) k/uL Lymphocytes # 1.0 (1.0-4.8) k/uL Monocytes # 0.6 (0-1.0) k/uL Eosinophils # 0.3 (0-0.7) k/uL Basophils # 0.0 (0-0.2) k/uL ESR 12 (0-15) mm/hr Sodium 137 (137-145) mmol/L Potassium 4.1 (3.5-5.1) mmol/L Chloride 105 (98-107) mmol/L Carbon Dioxide 28 (22-30) mmol/L Anion Gap 4 mmol/L BUN 21 H (9-20) mg/dL Creatinine 0.86 (0.66-1.25) mg/dL Est GFR (CKD-EPI)AfAm >90 (>60 ml/min/1.73 sqM) Est GFR (CKD-EPI)NonAf >90 (>60 ml/min/1.73 sqM) Glucose 100 H (74-99) mg/dL Calcium 9.0 (8.4-10.2) mg/dL Total Bilirubin 0.9 (0.2-1.3) mg/dL AST 23 (17-59) U/L ALT 21 (4-49) U/L Alkaline Phosphatase 82 (38-126) U/L C-Reactive Protein 21.7 H (<10.0) mg/L Total Protein 5.8 L (6.3-8.2) g/dL Albumin 3.7 (3.5-5.0) g/dL Disposition Clinical Impression: Right hip pain, Chronic dyspnea Disposition: HOME SELF-CARE Condition: Good Instructions (If sedation given, give patient instructions): Hip Bursitis (ED), Arthralgia (ED) Additional Instructions: Please use medication as discussed. Please follow-up with family doctor in the next 2 days, recommend orthopedic follow-up outpatient. Please return to emergency room if the symptoms increase or worsen or for any other concerns. Is patient prescribed a controlled substance at d/c from ED?: No Referrals: Deborah Shah III, MD [Primary Care Provider] - 1-2 days Ed Christianson MD [STAFF PHYSICIAN] - 1-2 days Time of Disposition: 21:44
[2019-12-30 21:05] LABS: ALT 21 U/L (4-49); AST 23 U/L (17-59); African American GFR (CKD) >90 (>60 ml/min/1.73 sqM); Albumin 3.7 g/dL (3.5-5.0); Alkaline Phosphatase 82 U/L (38-126); Anion Gap 4 mmol/L; Blood Urea Nitrogen 21 mg/dL (9-20); C Reactive Protein 21.7 mg/L (<10.0); Carbon Dioxide 28 mmol/L (22-30); Chloride 105 mmol/L (98-107); Glucose 100 mg/dL (74-99); Non-African American GFR(CKD) >90 (>60 ml/min/1.73 sqM); Potassium 4.1 mmol/L (3.5-5.1); Sodium 137 mmol/L (137-145); Total Bilirubin 0.9 mg/dL (0.2-1.3); Total Protein 5.8 g/dL (6.3-8.2)
[2019-12-30 22:01] LABS: Erythrocyte Sedimentation Rate 12 mm/hr (0-15)
[2019-12-30 22:08] VITALS: PULSE 75; RESP 16
[2019-12-30 22:09] VITALS: BP 133/82; TEMP 97.8
== END 2019-12-30 22:08 | disposition home or self-care (01) ==
LOC: EC 19:47
DX: M25.551 Pain in right hip (principal); J44.9 Chronic obstructive pulmonary disease, unspecified; F41.9 Anxiety disorder, unspecified; F31.9 Bipolar disorder, unspecified; F41.0 Panic disorder [episodic paroxysmal anxiety]; K21.9 Gastro-esophageal reflux disease without esophagitis; I10 Essential (primary) hypertension; M19.90 Unspecified osteoarthritis, unspecified site; Z79.51 Long term (current) use of inhaled steroids; Z79.899 Other long term (current) drug therapy; Z79.52 Long term (current) use of systemic steroids; Z87.891 Personal history of nicotine dependence; Z91.010 Allergy to peanuts; Z91.048 Other nonmedicinal substance allergy status
CPT/HCPCS: 36415; 94640; 80053; 85652; 85025; 86140; 99284; J1170

== ENCOUNTER → 2020-01-03 | Outpatient (CLI) | payer MEDICARE, OTHER ==
[~2020-01-03] MED LIST: REGADENOSON 0.4 MG/5 ML SYRINGE IV ONE
--- NOTE | 2020-01-03 11:48 | NM ---
EXAMINATION TYPE: NM stress lexiscan cardiolite DATE OF EXAM: 01/03/2020 COMPARISON: NONE HISTORY: 64-year-old male with chest pain, resulting breathing, hypertension, family history, prior s moker, COPD/asthma. TECHNIQUE: After the intravenous administration of 9.26 mCi Tc 99m Sestamibi - Cardiolite resting SP ECT images acquired 85 minutes post injection. The patient received 0.4mg Lexiscan, 26.8 mCi Tc 99m Sestamibi - Stress images obtained [address] injection FINDINGS: Review of stress and rest SPECT images demonstrates no distinct perfusion abnormality. Gated analysi s shows normal wall motion with an estimated left ventricular ejection fraction of 68 %. TID is calc ulated at 0.91, within normal limits. IMPRESSION: No scintigraphic evidence for reversible ischemia.
--- NOTE | 2020-01-03 14:43 | EST ---
EXERCISE STRESS AGE: 64 SEX: M HT: 70" WT: 220 lbs. PROTOCOL: Lexiscan Cardiolite STAGE: DURATION OF EXERCISE: HEART RATE REST: 47 BLOOD PRESSURE REST: 103/62 MAXIMUM HEART RATE ACHIEVED: 53 MAXIMUM BLOOD PRESSURE: 107/56 85% MPHR: 133 100% MPHR: 167 METS: INDICATIONS: Chest pain. CLINICAL INFORMATION: Baseline heart rate 47 beats per minute. Baseline blood pressure 103/62 mmHg. Baseline 12-lead ECG shows sinus rhythm with right bundle branch block morphology with normal ST segments. The patient received Lexiscan infusion per protocol. No significant change in heart rate or blood pressure. Nuclear portion will be reported separately and no ECG evidence for ischemia. MMODL / IJN: [id number] /
== END | disposition home or self-care (01) ==
LOC: RADNMMAIN 08:19
PROVIDERS: ATTEND Family Medicine
DX: R07.89 Other chest pain (principal); Z91.010 Allergy to peanuts; Z88.9 Allergy status to unspecified drugs, medicaments and biological substances
CPT/HCPCS: 93017; 78452; A9500; J2785

== ENCOUNTER → 2020-02-16 | Outpatient (CLI) | payer MEDICARE, OTHER ==
--- NOTE | 2020-02-16 23:45 | MR ---
EXAMINATION TYPE: MR hip RT wo con DATE OF EXAM: 02/16/2020 COMPARISON: None HISTORY: Rt hip pain x 1 month Multiplanar multiecho imaging of the pelvis and right hip was performed with no contrast. The pelvic ring is intact. Proximal femurs and hip joints are intact. There is no sign of hip dysplas ia. There is slight increased joint fluid on the right side compared to the left. There is no sign of avascular necrosis. There is no free fluid in the pelvis. Bladder is almost empty. I see no bony nadeem tructive process. Hip joint spaces are fairly normal. There is no evidence of a fracture. The sacroil iac joints appear intact. IMPRESSION: Slight increased joint fluid on the right side compared to the left that is consistent with a mild no nspecific synovitis. No significant joint space narrowing. No fracture seen. No evidence of avascular necrosis.
== END | disposition home or self-care (01) ==
LOC: RADMRIMAIN 11:51
PROVIDERS: ATTEND Orthopaedic Surgery
DX: M25.451 Effusion, right hip (principal)

== ENCOUNTER 2020-04-12 16:23 | Inpatient (IN) | payer MEDICARE, OTHER ==
[2020-04-12] MEDS ORDERED: IPRATROPIUM-ALBUTEROL 3 ML NEB INHALATION STA (17:03)
[2020-04-12] MEDS ORDERED: HYDROmorphone 1 MG/ML 1 ML SYRINGE IVP STA (17:03)
[2020-04-12 17:15] LABS: Basophils # (A) 0.1 k/uL (0-0.2); Basophils % (A) 1 %; Eosinophils # (A) 0.1 k/uL (0-0.7); Eosinophils % (A) 1 %; HCT 45.4 % (39.0-53.0); HGB 14.9 gm/dL (13.0-17.5); Lymphocytes # (A) 1.2 k/uL (1.0-4.8); Lymphocytes % (A) 12 %; MCHC 32.9 g/dL (31.0-37.0); MCV 91.2 fL (80.0-100.0); Mean Platelet Volume 7.4; Monocytes # (A) 0.9 k/uL (0-1.0); Monocytes % (A) 10 %; Neutrophils # (A) 7.1 k/uL (1.3-7.7); Neutrophils % (A) 72 %; Platelet Count 236 k/uL (150-450); RBC 4.98 m/uL (4.30-5.90); WBC 9.8 k/uL (3.8-10.6)
[2020-04-12 17:27] LABS: Calcium 9.9 mg/dL (8.4-10.2); Magnesium 1.7 mg/dL (1.6-2.3); Potassium 3.5 mmol/L (3.5-5.1); Total Bilirubin 1.4 mg/dL (0.2-1.3); Total Protein 7.7 g/dL (6.3-8.2)
[2020-04-12 17:41] LABS: D-Dimer 0.37 mg/L FEU (<0.60); Partial Thromboplastin Time 22.7 sec (22.0-30.0); Prothrombin Time 10.1 sec (9.0-12.0)
--- NOTE | 2020-04-12 18:03 | XR ---
EXAMINATION TYPE: XR chest 2V DATE OF EXAM: 04/12/2020 COMPARISON: 12/12/2019 HISTORY: Short of breath TECHNIQUE: 2 views. Heart and mediastinum are normal. Lungs are clear. Diaphragm is normal. Bony thorax appears normal. T here are chest leads. IMPRESSION: Normal chest. No change.
[2020-04-12] MEDS ORDERED: LORazepam 2 MG/ML INJ IV STA (18:09)
[2020-04-12] MEDS ORDERED: fentaNYL (PF) 50 MCG/ML 2 ML AMP IVP STA (18:09)
--- NOTE | 2020-04-12 18:51 | ED ---
SOB HPI - General Chief Complaint: Shortness of Breath Stated Complaint: GREGG,chest pain Time Seen by Provider: 04/12/20 16:36 Source: patient, RN notes reviewed Mode of arrival: ambulatory - History of Present Illness Initial Comments: This is a 64-year-old male presents with complaints of chest pain shortness breath he complains of exertional dyspnea. Initiated discomfort to his chest feels like a tightness. Mild to moderate in severity. He also complains of eye infection. She states she's had a longer history of difficulty with his vision. 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 He also states he had nausea vomiting and a little. Past 2 days. No other complaint or modifying factors at this time MD Complaint: shortness of breath, chest pain - Related Data Home Medications Medication Instructions Recorded Confirmed Montelukast [Singulair] 10 mg PO DAILY 03/16/14 12/23/19 Sertraline [Zoloft] 100 mg PO DAILY 11/04/18 12/23/19 buPROPion HCL [Wellbutrin XL] 150 mg PO BID 05/02/19 12/23/19 Albuterol Nebulized [Ventolin 2.5 mg INHALATION RT-TID PRN 09/04/19 12/23/19 Nebulized] Fluticasone/Umeclidin/Vilanter 1 puff INHALATION RT-DAILY 09/04/19 12/23/19 [Trelegy Ellipta 100-62.5-25] Buprenorphine HCl [Belbuca] 150 mcg BUCCAL Q12H 11/18/19 12/23/19 Cetirizine HCl 10 mg PO DAILY 11/18/19 12/23/19 Diclofenac Sodium [Voltaren] 75 mg PO BID 11/18/19 12/23/19 Finasteride [Proscar] 5 mg PO DAILY 11/18/19 12/23/19 Tamsulosin HCl [Flomax] 0.4 mg PO DAILY 11/18/19 12/23/19 hydrALAZINE HCL 25 mg PO BID-W/MEALS 11/18/19 12/23/19 Albuterol Sulfate [Ventolin HFA] 2 puff INHALATION RT-Q6H PRN 12/12/19 12/23/19 Indapamide [Lozol] 2.5 mg PO DAILY 12/12/19 12/23/19 Omeprazole 20 mg PO BID 12/12/19 12/23/19 HYDROcodone/APAP 7.5-325MG [[place] 1 tab PO Q6H PRN 12/23/19 12/23/19 7.5-325] amLODIPine [Norvasc] 5 mg PO DAILY 12/23/19 12/23/19 predniSONE See Taper PO DIRECTED 12/23/19 12/23/19 Previous Rx's Medication Instructions Recorded Baclofen 10 mg PO TID-W/MEALS PRN #30 tab 12/15/19 Metoprolol Succinate (ER) [Toprol 25 mg PO DAILY 30 Days #30 12/15/19 XL] tab.er.24h Allergies Allergy/AdvReac Type Severity Reaction Status Date / Time peanut Allergy ALLERGY Verified 04/12/20 16:34 TESTING pollen extracts Allergy ALLERGY Verified 04/12/20 16:34 TESTING DUST Allergy ALLERGY Uncoded 04/12/20 16:34 TESTING Review of Systems ROS Statement: Those systems with pertinent positive or pertinent negative responses have been documented in the HPI. ROS Other: All systems not noted in ROS Statement are negative. Past Medical History Past Medical History: Atrial Flutter, Asthma, Chest Pain / Angina, COPD, GERD/Reflux, Hypertension, Osteoarthritis (OA), Pneumonia, Sleep Apnea/CPAP/BIPAP Additional Past Medical History / Comment(s): Back problems, no CPAP use. History of Any Multi-Drug Resistant Organisms: None Reported Past Surgical History: Adenoidectomy, Bowel Resection, Cholecystectomy Additional Past Surgical History / Comment(s): Nasal surgery. Past Anesthesia/Blood Transfusion Reactions: Previous Problems w/ Anesthesia, Motion Sickness Additional Past Anesthesia/Blood Transfusion Reaction / Comment(s): States "during procedure of checking something on my left lung, I turned blue and I was brought right back out anesthesia and procedure was cancelled". Clausterphobia. Past Psychological History: Anxiety, Bipolar, Depression, Panic Disorder Past Alcohol Use History: None Reported, Heavy Past Drug Use History: Marijuana - Past Family History Mother Family Medical History: Asthma Additional Family Medical History / Comment(s): at age 62 Father Family Medical History: CVA/TIA Additional Family Medical History / Comment(s): at age 90 General Exam - General Exam Comments Initial Comments: This is a well-developed well-nourished awake alert oriented times 3 male General appearance: alert, anxious, in distress Head exam: Present: atraumatic, normocephalic, normal inspection Eye exam: Present: normal appearance, PERRL, EOMI. Absent: scleral icterus, conjunctival injection, periorbital swelling ENT exam: Present: normal exam, mucous membranes moist Neck exam: Present: normal inspection. Absent: tenderness, meningismus, lymphadenopathy Respiratory exam: Present: wheezes, decreased breath sounds. Absent: respirator y distress, rales, rhonchi, stridor Cardiovascular Exam: Present: normal rhythm, tachycardia, normal heart sounds. Absent: systolic murmur, diastolic murmur, rubs, gallop, clicks GI/Abdominal exam: Present: soft, normal bowel sounds. Absent: distended, tenderness, guarding, rebound, rigid Extremities exam: Present: normal inspection, full ROM, normal capillary refill. Absent: tenderness, pedal edema, joint swelling, calf tenderness Back exam: Present: normal inspection Neurological exam: Present: alert, oriented X3, CN II-XII intact Psychiatric exam: Present: normal affect, normal mood Skin exam: Present: warm, dry, intact, normal color. Absent: rash Course Vital Signs 04/12/20 04/12/20 04/12/20 16:28 17:42 18:17 Temperature 97.9 F Pulse Rate 118 H 98 97 Respiratory 22 20 20 Rate Blood Pressure 122/79 112/76 108/78 O2 Sat by Pulse 97 99 99 Oximetry Medical Decision Making - Medical Decision Making Patient still feels short of breath and having chest discomfort his initial workup demonstrates a negative he time are negative troponin. Patient will be admitted the presentation is consistent with COPD exacerbation and chest pain - Lab Data Result diagrams: 04/12/20 16:57 04/12/20 16:57 Lab Results 04/12/20 04/12/20 04/12/20 Range/Units 16:57 16:57 16:57 WBC 9.8 (3.8-10.6) k/uL RBC 4.98 (4.30-5.90) m/uL Hgb 14.9 (13.0-17.5) gm/dL Hct 45.4 (39.0-53.0) % MCV 91.2 (80.0-100.0) fL MCH 30.0 (25.0-35.0) pg MCHC 32.9 (31.0-37.0) g/dL RDW 14.0 (11.5-15.5) % Plt Count 236 (150-450) k/uL Neutrophils % 72 % Lymphocytes % 12 % Monocytes % 10 % Eosinophils % 1 % Basophils % 1 % Neutrophils # 7.1 (1.3-7.7) k/uL Lymphocytes # 1.2 (1.0-4.8) k/uL Monocytes # 0.9 (0-1.0) k/uL Eosinophils # 0.1 (0-0.7) k/uL Basophils # 0.1 (0-0.2) k/uL PT 10.1 (9.0-12.0) sec INR 1.0 (<1.2) APTT 22.7 (22.0-30.0) sec D-Dimer 0.37 (<0.60) mg/L FEU Sodium 139 (137-145) mmol/L Potassium 3.5 (3.5-5.1) mmol/L Chloride 105 (98-107) mmol/L Carbon Dioxide 18 L (22-30) mmol/L Anion Gap 16 mmol/L BUN 19 (9-20) mg/dL Creatinine 1.85 H (0.66-1.25) mg/dL Est GFR (CKD-EPI)AfAm 44 (>60 ml/min/1.73 sqM) Est GFR (CKD-EPI)NonAf 38 (>60 ml/min/1.73 sqM) Glucose 110 H (74-99) mg/dL Plasma Lactic Acid Aman (0.7-2.0) mmol/L Calcium 9.9 (8.4-10.2) mg/dL Magnesium 1.7 (1.6-2.3) mg/dL Total Bilirubin 1.4 H (0.2-1.3) mg/dL AST 28 (17-59) U/L ALT 22 (4-49) U/L Alkaline Phosphatase 127 H (38-126) U/L Creatine Kinase 89 (55-170) U/L Troponin I (0.000-0.034) ng/mL NT-Pro-B Natriuret Pep pg/mL Total Protein 7.7 (6.3-8.2) g/dL Albumin 5.0 (3.5-5.0) g/dL 04/12/20 04/12/20 04/12/20 Range/Units 16:57 16:57 16:57 WBC (3.8-10.6) k/uL RBC (4.30-5.90) m/uL Hgb (13.0-17.5) gm/dL Hct (39.0-53.0) % MCV (80.0-100.0) fL MCH (25.0-35.0) pg MCHC (31.0-37.0) g/dL RDW (11.5-15.5) % Plt Count (150-450) k/uL Neutrophils % % Lymphocytes % % Monocytes % % Eosinophils % % Basophils % % Neutrophils # (1.3-7.7) k/uL Lymphocytes # (1.0-4.8) k/uL Monocytes # (0-1.0) k/uL Eosinophils # (0-0.7) k/uL Basophils # (0-0.2) k/uL PT (9.0-12.0) sec INR (<1.2) APTT (22.0-30.0) sec D-Dimer (<0.60) mg/L FEU Sodium (137-145) mmol/L Potassium (3.5-5.1) mmol/L Chloride (98-107) mmol/L Carbon Dioxide (22-30) mmol/L Anion Gap mmol/L BUN (9-20) mg/dL Creatinine (0.66-1.25) mg/dL Est GFR (CKD-EPI)AfAm (>60 ml/min/1.73 sqM) Est GFR (CKD-EPI)NonAf (>60 ml/min/1.73 sqM) Glucose (74-99) mg/dL Plasma Lactic Acid Aman 1.8 (0.7-2.0) mmol/L Calcium (8.4-10.2) mg/dL Magnesium (1.6-2.3) mg/dL Total Bilirubin (0.2-1.3) mg/dL AST (17-59) U/L ALT (4-49) U/L Alkaline Phosphatase (38-126) U/L Creatine Kinase (55-170) U/L Troponin I 0.024 (0.000-0.034) ng/mL NT-Pro-B Natriuret Pep 198 pg/mL Total Protein (6.3-8.2) g/dL Albumin (3.5-5.0) g/dL - EKG Data -: EKG Interpreted by Me (Sinus tachycardia with a rate of 106 FL interval 136 QRS 138 QT since QTC 3) Disposition Clinical Impression: Acute respiratory distress syndrome in adult, Acute exacerbation of chronic ob structive airways disease, Chest pain, Anxiety Disposition: ADMITTED IP TO THIS HOSP Condition: Fair Referrals: Deborah Shah III, MD [Primary Care Provider] - 1-2 days
[2020-04-12] MEDS ORDERED: BACLOFEN 10 MG TAB PO PRN (18:57)
[2020-04-12 20:25] LABS: Glucose,Whole Blood 103 mg/dL (75-99)
[2020-04-12] MEDS: IPRATROPIUM-ALBUTEROL 3 ML NEB INHALATION SCH (20:35)
[2020-04-12] MEDS: ETODOLAC 400 MG TAB PO SCH (21:59)
[2020-04-12] MEDS: buPROPion XL 150 MG TAB.ER.24H PO SCH (22:01)
[2020-04-12] MEDS: PANTOPRAZOLE 40 MG TABLET PO SCH (22:02)
[2020-04-12] MEDS: HYDROcodone/APAP 7.5-325MG 1 EACH TAB PO PRN (22:31)
[2020-04-13] MEDS: IPRATROPIUM-ALBUTEROL 3 ML NEB INHALATION SCH ×5 (00:02→19:32)
[2020-04-13] MEDS ORDERED: IPRATROPIUM-ALBUTEROL 3 ML NEB INHALATION PRN (00:05)
[2020-04-13] MEDS: BELBUCA 150 MCG PO SCH (00:16)
[2020-04-13] MEDS: methylPREDNISolone SOD SUCCI 125 MG/2 ML VIAL IV SCH ×2 (00:18→06:32)
[2020-04-13] MEDS: HYDROcodone/APAP 7.5-325MG 1 EACH TAB PO PRN (03:37)
[2020-04-13 06:09] LABS: Glucose,Whole Blood 151 mg/dL (75-99)
[2020-04-13] MEDS: hydrALAZINE HCL 25 MG TAB PO SCH ×2 (06:32→17:48)
[2020-04-13 06:49] LABS: Basophils % (A) 0 %; Eosinophils % (A) 0 %; HCT 39.9 % (39.0-53.0); Lymphocytes # (A) 0.4 k/uL (1.0-4.8); Lymphocytes % (A) 7 %; MCH 30.1 pg (25.0-35.0); MCHC 32.5 g/dL (31.0-37.0); MCV 92.9 fL (80.0-100.0); Mean Platelet Volume 7.1; Monocytes # (A) 0.1 k/uL (0-1.0); Monocytes % (A) 2 %; Neutrophils # (A) 5.8 k/uL (1.3-7.7); Neutrophils % (A) 90 %; Platelet Count 186 k/uL (150-450); RDW 14.1 % (11.5-15.5); WBC 6.5 k/uL (3.8-10.6)
[2020-04-13 06:52] LABS: Potassium 3.7 mmol/L (3.5-5.1)
[2020-04-13] MEDS: SYMBICORT 80-4.5 MCG INHALER INHALATION SCH ×2 (08:19→19:33)
[2020-04-13] MEDS ORDERED: hydroCHLOROthiazide 25 MG TAB PO SCH (09:00)
[2020-04-13] MEDS: HYDROcodone/APAP 10-325MG 1 EACH TAB PO PRN ×3 (09:56→23:08)
[2020-04-13] MEDS: SERTRALINE 100 MG TAB PO SCH (09:56)
[2020-04-13] MEDS: amLODIPine 5 MG TAB PO SCH (09:56)
[2020-04-13] MEDS: METOPROLOL SUCCINATE (ER) 25 MG TAB.ER.24H PO SCH (09:56)
[2020-04-13] MEDS: PANTOPRAZOLE 40 MG TABLET PO SCH ×2 (09:56→21:03)
[2020-04-13] MEDS: FINASTERIDE 5 MG TAB PO SCH (09:57)
[2020-04-13] MEDS: LORATADINE 10 MG TAB PO SCH (09:57)
[2020-04-13] MEDS: TAMSULOSIN 0.4 MG CAP.ER.24H PO SCH (09:57)
[2020-04-13] MEDS: MONTELUKAST 10 MG TAB PO SCH (09:57)
[2020-04-13] MEDS: buPROPion XL 150 MG TAB.ER.24H PO SCH ×2 (09:59→21:01)
[2020-04-13] MEDS: SODIUM CHLORIDE 0.9% 1,000 ML IV SCH ×2 (10:00→23:17)
[2020-04-13] MEDS: traMADol 50 MG TAB PO PRN ×3 (10:24→21:02)
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
[2020-04-13 12:11] VITALS: BMI 29.0
[2020-04-13 12:33] LABS: Glucose,Whole Blood 165 mg/dL (75-99)
[2020-04-13] MEDS ORDERED: ALPRAZolam 0.25 MG TAB PO STA (12:37)
--- NOTE | 2020-04-13 13:03 | US ---
EXAMINATION TYPE: US kidneys/renal and bladder DATE OF EXAM: 04/13/2020 COMPARISON: CT abdomen pelvis 11/14/20152015 CLINICAL HISTORY: ADELINE. Portable exam. EXAM MEASUREMENTS: Right Kidney: 10.3 x 6.3 x 6.3 cm Left Kidney: 10.1 x 5.1 x 5.1 cm Right Kidney: No hydronephrosis or masses seen. Left Kidney: Mild cortical thinning. No hydronephrosis or masses seen. Bladder: Normal. Anechoic urine. Bilateral Jets seen: no IMPRESSION: 1. No hydronephrosis bilaterally. 2. Borderline cortical thinning on the left. 3. Normal urinary bladder.
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
[2020-04-13 17:22] LABS: Glucose,Whole Blood 160 mg/dL (75-99)
[2020-04-13] MEDS: HEPARIN SODIUM,PORCINE 5,000 UNIT/ML 1 ML VIAL SQ SCH ×2 (17:47→23:11)
[2020-04-13] MEDS: INSULIN ASPART (NovoLOG) 100 UNIT/ML VIAL SQ SCH ×2 (17:47→21:04)
[2020-04-13] MEDS: methylPREDNISolone SOD SUCCI 40 MG/ML 1 ML VIAL IV SCH ×2 (18:09→23:11)
[2020-04-13 19:14] LABS: Appearance,Urine Clear (Clear); Bilirubin,Urine 1+ (Negative); Blood,Urine Negative (Negative); Color,Urine Yellow; Glucose,Urine (UA) Negative (Negative); Ketones,Urine Trace (Negative); Leukocyte Esterase,Urine Negative (Negative); Nitrite,Urine Negative (Negative); Protein,Urine Negative (Negative); Specific Gravity,Urine 1.017 (1.001-1.035); Urobilinogen,Urine <2.0 mg/dL (<2.0)
[2020-04-13 20:53] LABS: Glucose,Whole Blood 164 mg/dL (75-99)
[2020-04-13] MEDS: DOXYCYCLINE 100 MG CAP PO SCH (21:02)
[2020-04-14] MEDS: HYDROcodone/APAP 10-325MG 1 EACH TAB PO PRN ×2 (04:00→10:04)
[2020-04-14 06:20] LABS: Glucose,Whole Blood 128 mg/dL (75-99)
[2020-04-14] MEDS: hydrALAZINE HCL 25 MG TAB PO SCH (06:32)
[2020-04-14] MEDS: INSULIN ASPART (NovoLOG) 100 UNIT/ML VIAL SQ SCH (06:48)
[2020-04-14 07:04] LABS: Calcium 8.6 mg/dL (8.4-10.2)
[2020-04-14] MEDS: SYMBICORT 80-4.5 MCG INHALER INHALATION SCH (08:23)
[2020-04-14] MEDS: IPRATROPIUM-ALBUTEROL 3 ML NEB INHALATION SCH (08:23)
[2020-04-14] MEDS ORDERED: allopurinoL 100 MG TAB PO SCH (09:00)
[2020-04-14] MEDS: traMADol 50 MG TAB PO PRN (09:11)
[2020-04-14] MEDS: amLODIPine 5 MG TAB PO SCH (09:11)
[2020-04-14] MEDS: SERTRALINE 100 MG TAB PO SCH (09:11)
[2020-04-14] MEDS: HEPARIN SODIUM,PORCINE 5,000 UNIT/ML 1 ML VIAL SQ SCH (09:11)
[2020-04-14] MEDS: methylPREDNISolone SOD SUCCI 40 MG/ML 1 ML VIAL IV SCH (09:11)
[2020-04-14] MEDS: TAMSULOSIN 0.4 MG CAP.ER.24H PO SCH (09:11)
[2020-04-14] MEDS: LORATADINE 10 MG TAB PO SCH (09:12)
[2020-04-14] MEDS: buPROPion XL 150 MG TAB.ER.24H PO SCH (09:12)
[2020-04-14] MEDS: METOPROLOL SUCCINATE (ER) 25 MG TAB.ER.24H PO SCH (09:12)
[2020-04-14] MEDS: PANTOPRAZOLE 40 MG TABLET PO SCH (09:12)
[2020-04-14] MEDS: MONTELUKAST 10 MG TAB PO SCH (09:12)
[2020-04-14] MEDS: DOXYCYCLINE 100 MG CAP PO SCH (09:12)
[2020-04-14 09:16] VITALS: BP 114/60; PULSE 81; RESP 18; TEMP 98.3
[2020-04-14] MEDS: FINASTERIDE 5 MG TAB PO SCH (09:21)
--- NOTE | 2020-04-14 09:31 | P.DS ---
Providers Date of admission: 04/12/20 18:55 Attending physician: Inge Manzanares Consults: 04/13/20 09:23 Consult Physician Routine Consulting Provider: Nehemiah Granados Consult Reason/Comments: COPD Do you want consulting provider notified?: Yes 04/13/20 10:27 Consult Physician Routine Consulting Provider: Braeden Peralta Consult Reason/Comments: cliff Do you want consulting provider notified?: Yes Primary care physician: [facility] Course: 64-year-old male presents with complaints of chest pain shortness breath he complains of exertional dyspnea. Initiated discomfort to his chest feels like a tightness. Mild to moderate in severity. He also complains of eye infection. She states she's had a longer history of difficulty with his vision. 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 He also states he had nausea vomiting and a little. Past 2 days. No other complaint or modifying factors at this time. Patient was wheezing and admitted for COPD exacerbation. Patient chest pain and back pain although is chronic. Patient is requesting IV pain medications for that. Patient does have significant gaseous residual reflux disease because of which I'll keep him additionally tramadol along with Sanders for pain. Patient used to be a smoker quit smoking years ago doesn't use any oxygen at home. Patient was comparing of cough without any significant sputum production chest x-ray did not show any pneumonia and patient has a elevated creatinine of 2.25 patient does have a history of BPH. Patient is an creatinine within normal limits. 04/14/2020 Patient's serum creatinine improved BUN is elevated because of systemic steroids. Patient's serum creatinine is at his baseline now, patient still has some rhonchi and some wheezes and patient wanted to go home will ablate the patient in the hallway and if he is saturating well patient will be discharged on Ceftin for 4 days along with the weaning dose of steroids Pepcid for GI prophylaxis and patient does have is inhaled steroids and albuterol and inhaled anticholinergic medication at home. Patient's diuretics will be discontinued because of his poor renal function. Patient the creatinine improved to 1.7 which is his baseline. Patient is on Flomax, patient had an ultrasound of the kidney which did not show any significant abnormality. Patient's other an assays were discontinued and patient will be discharged on tramadol patient also is a smoker at home. Patient will follow with Dr. Alyssa Granados and Dr. Montenegro as an outpatient. PHYSICAL EXAMINATION: GENERAL: The patient is alert and oriented x3, not in any acute distress. Obese HEENT: Pupils are round and equally reacting to light. EOMI. No scleral icterus. No conjunctival pallor. Normocephalic, atraumatic. No pharyngeal erythema. No thyromegaly. CARDIOVASCULAR: S1 and S2 present. No murmurs, rubs, or gallops. PULMONARY: Mild expiratory wheezing and rhonchi bilaterally ABDOMEN: Soft, nontender, nondistended, normoactive bowel sounds. No palpable organomegaly. MUSCULOSKELETAL: No joint swelling or deformity. EXTREMITIES: No cyanosis, clubbing, or pedal edema. NEUROLOGICAL: Gross neurological examination did not reveal any focal deficits. SKIN: No rashes. Assessment and Plan Plan: - COPD exacerbation with tracheobronchitis -Generalized body aches chest pain back pain: Troponin was negative EKG did not show any acute abnormality and the patient the has chronic back pain and generalized body aches as well as chest pain which are all chronic. -Acute renal failure: Prerenal azotemia improved with IV fluids, diuretics and nonsteroidal anti-inflammatory medications were discontinued -Gastroesophageal reflux disease: She has severe gastroesophageal reflux disease and patient underwent systemic steroids because of this reason I'll give him a prescription for rotundum pulmonary would've for a month -Possible bacterial bronchitis -History of atrial flutter presently rate controlled -Hypertension -Sleep apnea, obesity: Continue CPAP machine Patient Condition at Discharge: Fair Plan - Discharge Summary Discharge Rx Participant: Yes New Discharge Prescriptions: New Fluticasone/Salmeterol [Advair 250-50 Diskus] 1 inhalation PO BID #1 inhaler Cefuroxime Axetil [Ceftin] 500 mg PO BID 4 Days #8 tab Famotidine [Pepcid] 20 mg PO BID #30 tablet predniSONE 10 mg PO DAILY #30 tab Metoprolol Succinate (ER) [Toprol XL] 25 mg PO DAILY #30 tab.er.24h traMADol HCl [Ultram] 50 mg PO QID PRN #20 tab PRN Reason: Pain/Discomfort Continue Montelukast [Singulair] 10 mg PO DAILY Sertraline [Zoloft] 100 mg PO DAILY buPROPion HCL [Wellbutrin XL] 150 mg PO BID Cetirizine HCl 10 mg PO DAILY Finasteride [Proscar] 5 mg PO DAILY Tamsulosin HCl [Flomax] 0.4 mg PO DAILY amLODIPine [Norvasc] 5 mg PO DAILY Allopurinol [Zyloprim] 200 mg PO DAILY Hydrocodone/Acetaminophen [Sanders 10-325] 1 tab PO Q6H PRN PRN Reason: Pain Discontinued Diclofenac Sodium [Voltaren] 75 mg PO BID Indapamide [Lozol] 2.5 mg PO DAILY Discharge Medication List Montelukast [Singulair] 10 mg PO DAILY 03/16/14 [History] Sertraline [Zoloft] 100 mg PO DAILY 11/04/18 [History] buPROPion HCL [Wellbutrin XL] 150 mg PO BID 05/02/19 [History] Cetirizine HCl 10 mg PO DAILY 11/18/19 [History] Finasteride [Proscar] 5 mg PO DAILY 11/18/19 [History] Tamsulosin HCl [Flomax] 0.4 mg PO DAILY 11/18/19 [History] amLODIPine [Norvasc] 5 mg PO DAILY 12/23/19 [History] Allopurinol [Zyloprim] 200 mg PO DAILY 04/12/20 [History] Hydrocodone/Acetaminophen [Sanders 10-325] 1 tab PO Q6H PRN 04/12/20 [History] Cefuroxime Axetil [Ceftin] 500 mg PO BID 4 Days #8 tab 04/14/20 [Rx] Famotidine [Pepcid] 20 mg PO BID #30 tablet 04/14/20 [Rx] Fluticasone/Salmeterol [Advair 250-50 Diskus] 1 inhalation PO BID #1 inhaler 04/14/20 [Rx] Metoprolol Succinate (ER) [Toprol XL] 25 mg PO DAILY #30 tab.er.24h 04/14/20 [Rx] predniSONE 10 mg PO DAILY #30 tab 04/14/20 [Rx] traMADol HCl [Ultram] 50 mg PO QID PRN #20 tab 04/14/20 [Rx] Follow up Appointment(s)/Referral(s): Deborah Shah III, MD [Primary Care Provider] - 3 Days Nehemiah Granados MD [STAFF PHYSICIAN] - 1 Week
[2020-04-14] MEDS: BELBUCA 150 MCG PO SCH (10:01)
[2020-04-14] MEDS: ETODOLAC 400 MG TAB PO SCH (10:01)
--- NOTE | 2020-04-14 10:03 | P.PN ---
Subjective patient is seen in follow-up for acute kidney injury. Currently maintained on IV fluids. Renal function improving. Good urine output. Oral intake fair. Doesn't like the food in the hospital. Vital signs are stable. General: The patient appeared well nourished and normally developed. HEENT: Head exam is unremarkable. Neck is without jugular venous distension. LUNGS: Breath sounds decreased. HEART: Rate and Rhythm are regular. ABDOMEN: soft, nontender. EXTREMITITES: No clubbing, cyanosis, or edema. Objective - Vital Signs Vital signs: Vital Signs Temp 98.3 F 04/14/20 08:00 Pulse 96 04/14/20 08:38 Resp 18 04/14/20 08:00 BP 114/60 04/14/20 08:00 Pulse Ox 95 04/14/20 08:00 Intake & Output 04/13/20 04/14/20 04/14/20 18:59 06:59 18:59 Intake Total 840 900 Output Total 250 475 Balance 590 425 Weight 91.9 kg 92.3 kg Intake: Intake, IV Titration 900 Amount Sodium Chloride 0.9% 1, 900 000 ml @ 75 mls/hr IV . [id number] [facility] Rx#:[id number] Oral 840 Output: Urine 475 Post Void Residual 250 Other: Voiding Method Toilet Urinal # Voids 1 - Labs CBC & Chem 7: 04/13/20 05:50 04/14/20 06:21 Labs: Abnormal Lab Results - Last 24 Hours (Table) 04/13/20 04/13/20 04/13/20 Range/Units 12:29 17:03 17:36 BUN (9-20) mg/dL Creatinine (0.66-1.25) mg/dL Glucose (74-99) mg/dL POC Glucose (mg/dL) 165 H 160 H (75-99) mg/dL Urine Ketones Trace H (Negative) Urine Bilirubin 1+ H (Negative) 04/13/20 04/14/20 04/14/20 Range/Units 20:49 06:14 06:21 BUN 41 H (9-20) mg/dL Creatinine 1.77 H (0.66-1.25) mg/dL Glucose 125 H (74-99) mg/dL POC Glucose (mg/dL) 164 H 128 H (75-99) mg/dL Urine Ketones (Negative) Urine Bilirubin (Negative) Assessment and Plan Plan: Assessment: 1. Acute kidney injury secondary to ATN secondary to intravascular volume depletion from vomiting, diarrhea and use of thiazide diuretic. He was also receiving nonsteroidal this admission. creatinine peaked at 2.35 this admission and is 1.77 today. Baseline creatinine near 1 from a of 2019. no evidence of urinary retention or obstructive uropathy. no proteinuria on UA. 2. Dyspnea secondary to COPD exacerbation. 3. Benign hypertension. Controlled. 4. History of BPH. 5. Metabolic acidosis secondary to acute kidney injury And GI losses. Better. Plan: Maintain normal saline at 75 mL an hour. encourage oral intake. Continue to monitor renal function and urine output.
--- NOTE | 2020-04-16 10:18 | CDI ---
Documentation Clarification Form Date: 04/16/2020 09:09:00 AM From: Dominga Wen Phone: If you have a question about this query, please contact Mary Beth Mckinney, Aerobics Instructor at [phone] between 8am and 5pm. Admit Date: 04/12/2020 06:55:00 PM Patient Name: Milo Stack Visit Number: [id number] Discharge Date: 04/14/2020 11:17:00 AM ATTENTION: The Clinical Documentation Specialists (CDI) and [facility] Coding Staff appreciate your assistance in clarifying documentation. Please respond to the clarification below the line at the bottom and electronically sign. The CDI & [facility] Coding staff will review the response and follow-up if needed. Please note: Queries are made part of the Legal Health Record. If you have any questions, please contact the author of this message via ITS. Dr. Inge Manzanares The patient presented with SOB from COPD exacerbation and tracheobronchitis. Patient's bronchitis is documented as bacterial in H and P. Please clarify acuity of bronchitis. History/Risk Factors: COPD exacerbation Clinical Indicators: Vital Signs: 97.9 F, 118 bpm, 22 , 122/79, 97% RA Other Clinical Indicators: wheezing Treatment:systemic steroids, inhalational treatments Consults: Pulmonary In your professional opinion, can you please clarify the acuity of the possible bacterial bronchitis Acute bronchitis Chronic bronchitis Other, please specify Unable to determine Acute bronchitis MTDD
--- NOTE | 2020-04-16 10:31 | CDI ---
Documentation Clarification Form Date: 04/16/2020 09:19:00 AM From: Dominga Wen Phone: If you have a question about this query, please contact Mary Beth Mckinney Patient Scheduling Coordinator at [phone] between 8am and 5pm. Admit Date: 04/12/2020 06:55:00 PM Patient Name: Milo Stack Visit Number: [id number] Discharge Date: 04/14/2020 11:17:00 AM ATTENTION: The Clinical Documentation Specialists (CDI) and [facility] Coding Staff appreciate your assistance in clarifying documentation. Please respond to the clarification below the line at the bottom and electronically sign. The CDI & [facility] Coding staff will review the response and follow-up if needed. Please note: Queries are made part of the Legal Health Record. If you have any questions, please contact the author of this message via ITS. Dr. Inge Manzanares This patient is admitted with COPD exacerbation and tracheobronchitis. ER notes document patient with ARDS. Please clarify if patient had Acute Respiratory Distress Syndrome in an Adult or was this ruled out. History/Risk Factors: COPD and possible bacterial bronchitis wheezing Clinical Indicators: 04/13 Patient SOB talks in phrases Vital Signs: 97.9 F, 118 bpm, 22, 122/79, 97 RA Pulse Ox: 04/13 95% on NC2 Treatment: NC 2, inhalants and systemic steroids Oxygen: NC 2 Medications: systemic steroids In order to accurately reflect the severity of condition, please indicate if the above clinical findings and treatment signify a respiratory condition, such as: Acute Respiratory Distress in an adult Acute Respiratory Distress in an adult ruled out Other, please specify Unable to determine MTDD
== END 2020-04-14 11:17 | disposition home or self-care (01) | DRG 190 ==
LOC: EC 16:23 → 3SCARD 18:55
PROVIDERS: ADMIT Internal Medicine; ATTEND Internal Medicine
DX: J44.1 Chronic obstructive pulmonary disease with (acute) exacerbation (principal); N17.0 Acute kidney failure with tubular necrosis; E87.2 Acidosis; H44.009 Unspecified purulent endophthalmitis, unspecified eye; I48.92 Unspecified atrial flutter; E66.9 Obesity, unspecified; Z68.29 Body mass index [BMI] 29.0-29.9, adult; E86.9 Volume depletion, unspecified; Z87.891 Personal history of nicotine dependence; F31.9 Bipolar disorder, unspecified; F41.0 Panic disorder [episodic paroxysmal anxiety]; G47.30 Sleep apnea, unspecified; Z99.89 Dependence on other enabling machines and devices; I10 Essential (primary) hypertension; K21.9 Gastro-esophageal reflux disease without esophagitis; M47.9 Spondylosis, unspecified; N40.0 Benign prostatic hyperplasia without lower urinary tract symptoms; R09.02 Hypoxemia; Z79.899 Other long term (current) drug therapy; Z82.5 Family history of asthma and other chronic lower respiratory diseases; J44.0 Chronic obstructive pulmonary disease with (acute) lower respiratory infection; J20.9 Acute bronchitis, unspecified; Z91.19 Patient's noncompliance with other medical treatment and regimen; G89.29 Other chronic pain; R07.9 Chest pain, unspecified; V49.9XXS Car occupant (driver) (passenger) injured in unspecified traffic accident, sequela; R19.7 Diarrhea, unspecified; R11.2 Nausea with vomiting, unspecified; Z90.49 Acquired absence of other specified parts of digestive tract; Z91.010 Allergy to peanuts; Z87.01 Personal history of pneumonia (recurrent); Z82.3 Family history of stroke; J45.909 Unspecified asthma, uncomplicated
CPT/HCPCS: 36415; 71046; 76770; 80048; 80053; 81003; 82550; 83605; 83735; 83880; 84484; 85025; 85379; 85610; 85730; 93005; 94640; 96374; 96375; 99285

== ENCOUNTER → 2020-05-02 | Outpatient (CLI) | payer MEDICARE, OTHER ==
--- NOTE | 2020-05-02 11:07 | BD ---
EXAMINATION TYPE: Axial Bone Density DATE OF EXAM: 05/02/2020 COMPARISON: NONE CLINICAL HISTORY: Height: 5 FT 8 IN Weight: FRAX RISK QUESTIONS: Alcohol (3 or more units per day): NO Family History (Parent hip fracture): UNSURE Glucocorticoids (More than 3mos): YES (Ex: prednisone, prednisolone, methylprednisolone, dexamethasone, and hydrocortisone). History of Fracture in Adulthood: NO Secondary Osteoporosis: 1. Type 1 Diabetes: NO 2. Hyperthyroidism: NO 3. Menopause before 45: NA 4. Malnutrition: NO 5. Chronic liver disease: NO Rheumatoid Arthritis: NO Current Tobacco Use: NO RISK FACTORS HISTORY OF: Family History of Osteoporosis: NO Active: NO Postmenopausal woman: NA If Premenopausal, do you have irregular periods: NA Take estrogen and/or progesterone medications: NA Lost more than 2 inches in height since high school: YES Poor Health: YES MEDICATIONS: Prednisone or other steroids: YES How Long: OFF AND ON FOR 30 YEARS Additional Medications: PREDISONE, ANXIETY MEDS, BLOOD PRESSURE MEDS, NORCO Additional History: COPD, BIPOLAR,ANXIETY EXAM MEASUREMENTS: Bone mineral densitometry was performed using the SeeMe System. Bone mineral density as measured about the Lumbar spine is: ----- L1-L4(G/cm2): 1.224 T Score Values are as follows: ----- L2: 0.1 ----- L3: 0.9 ----- L4: 0.6 ----- L1-L4: 0.4 BASELINE Bone mineral density about the R hip (g/cm2): 0.881 Bone mineral density about the L hip (g/cm2): 0.866 T Score values are as follows: -----R Neck: -1.1 -----L Neck: -1.2 -----R Total: -0.4 -----L Total: 0.1 BASELINE IMPRESSION: No evidence for osteoporosis or osteopenia. NOTE: T-SCORE=SD OF THE YOUNG ADULT MEAN.
== END | disposition home or self-care (01) ==
LOC: RADBDWWP 08:32
PROVIDERS: ATTEND Family Medicine
DX: Z13.828 Encounter for screening for other musculoskeletal disorder (principal); Z79.52 Long term (current) use of systemic steroids
CPT/HCPCS: 77080

== ENCOUNTER 2020-05-22 09:14 | Inpatient (IN) | payer MEDICARE, OTHER ==
[2020-05-22] MEDS ORDERED: IBUPROFEN 600 MG TAB PO STA (09:53)
[2020-05-22] MEDS ORDERED: ONDANSETRON 4 MG/2 ML VIAL IVP STA (09:53)
[2020-05-22] MEDS ORDERED: ACETAMINOPHEN TAB 500 MG TAB PO STA (09:53)
[2020-05-22] MEDS ORDERED: IPRATROPIUM-ALBUTEROL 3 ML NEB INHALATION STA (09:53)
[2020-05-22] MEDS ORDERED: MORPHINE SULFATE 2 MG/ML SYRINGE IVP STA ×2 (09:55→12:46)
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
[2020-05-22] MEDS: SODIUM CHLORIDE 0.9% 500 ML 500 ML IV SCH ×3 (10:07→11:39)
[2020-05-22 10:08] LABS: Basophils % (A) 0 %; Eosinophils # (A) 0.1 k/uL (0-0.7); Eosinophils % (A) 1 %; HCT 41.6 % (39.0-53.0); HGB 13.9 gm/dL (13.0-17.5); Lymphocytes # (A) 0.6 k/uL (1.0-4.8); Lymphocytes % (A) 8 %; MCH 31.3 pg (25.0-35.0); MCHC 33.3 g/dL (31.0-37.0); Monocytes # (A) 0.2 k/uL (0-1.0); Monocytes % (A) 3 %; Neutrophils # (A) 6.8 k/uL (1.3-7.7); Neutrophils % (A) 88 %; Platelet Count 204 k/uL (150-450); RBC 4.42 m/uL (4.30-5.90); RDW 13.7 % (11.5-15.5); WBC 7.7 k/uL (3.8-10.6)
[2020-05-22 10:19] LABS: Calcium 9.4 mg/dL (8.4-10.2); Potassium 3.7 mmol/L (3.5-5.1); Total Bilirubin 0.4 mg/dL (0.2-1.3); Total Protein 6.1 g/dL (6.3-8.2)
--- NOTE | 2020-05-22 10:19 | XR ---
EXAMINATION TYPE: XR chest 2V DATE OF EXAM: 05/22/2020 COMPARISON: Chest x-ray April 12, 2020. HISTORY: Cough, congestion, and fever. TECHNIQUE: Frontal and lateral views of the chest are obtained. FINDINGS: New multifocal left mid to lower lung opacities seen best on frontal view versus lateral v iew. Right lung remains clear. No pleural effusion or pneumothorax noted bilaterally. New silhouettin g left heart border. The cardiac silhouette size is stable and upper limits of normal. The osseous structures are intact. IMPRESSION: New multifocal left mid to lower lung acute infiltrates most prominent in the lingula.
[2020-05-22 10:29] LABS: Prothrombin Time 10.2 sec (9.0-12.0)
[2020-05-22 10:36] LABS: Partial Thromboplastin Time 20.7 sec (22.0-30.0)
[2020-05-22 10:37] LABS: Appearance,Urine Clear (Clear); Bilirubin,Urine Negative (Negative); Blood,Urine Negative (Negative); Color,Urine Light Yellow; Glucose,Urine (UA) Negative (Negative); Ketones,Urine Negative (Negative); Leukocyte Esterase,Urine Negative (Negative); Nitrite,Urine Negative (Negative); Protein,Urine Negative (Negative); Specific Gravity,Urine 1.014 (1.001-1.035); Urobilinogen,Urine <2.0 mg/dL (<2.0)
[2020-05-22] MEDS ORDERED: VANCOMYCIN IV PER PHARMACY 1 EACH MISC MISCELLANE PRN (10:51)
[2020-05-22] MEDS ORDERED: PIPERACILLIN-TAZOBACTAM 3.375 GM in SODIUM CHLORIDE 0.9% 100 ML IVPB STA (10:51)
[2020-05-22] MEDS ORDERED: VANCOMYCIN 1,500 MG in SODIUM CHLORIDE 0.9% 250 ML IVPB ONE (11:30)
[2020-05-22] MEDS ORDERED: HYDROmorphone 0.5 MG/0.5 ML SYRINGE IVP STA (11:43)
[2020-05-22] MEDS ORDERED: HYDROcodone/APAP 10-325MG 1 EACH TAB PO PRN (12:34)
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
[2020-05-22] MEDS: ALBUTEROL HFA INHALER INHALATION PRN (19:45)
[2020-05-22] MEDS ORDERED: PIPERACILLIN-TAZOBACTAM 3.375 GM in SODIUM CHLORIDE 0.9% 100 ML IVPB SCH (20:00)
[2020-05-22] MEDS: HEPARIN SODIUM,PORCINE 5,000 UNIT/ML 1 ML VIAL SQ SCH (20:17)
[2020-05-22] MEDS: FAMOTIDINE 20 MG/2 ML VIAL IV SCH (20:17)
[2020-05-22] MEDS: buPROPion XL 150 MG TAB.ER.24H PO SCH (20:18)
[2020-05-22] MEDS: hydrALAZINE HCL 25 MG TAB PO SCH (20:18)
[2020-05-22] MEDS: CEFEPIME 2 GM in SODIUM CHLORIDE 0.9% 100 ML IVPB SCH (20:18)
[2020-05-22] MEDS ORDERED: DOXYCYCLINE 100 MG CAP PO SCH (21:00)
[2020-05-22] MEDS: HYDROcodone/APAP 10-325MG 1 EACH TAB PO PRN (21:26)
[2020-05-23] MEDS: HYDROcodone/APAP 10-325MG 1 EACH TAB PO PRN ×5 (01:32→20:03)
[2020-05-23] MEDS: VANCOMYCIN 1,500 MG in SODIUM CHLORIDE 0.9% 250 ML IVPB SCH ×3 (03:23→16:19)
[2020-05-23] MEDS: buPROPion XL 150 MG TAB.ER.24H PO SCH ×2 (08:47→20:03)
[2020-05-23] MEDS: METOPROLOL SUCCINATE (ER) 25 MG TAB.ER.24H PO SCH (08:47)
[2020-05-23] MEDS: hydrALAZINE HCL 25 MG TAB PO SCH ×2 (08:47→20:03)
[2020-05-23] MEDS: TAMSULOSIN 0.4 MG CAP.ER.24H PO SCH (08:48)
[2020-05-23] MEDS: FAMOTIDINE 20 MG/2 ML VIAL IV SCH ×2 (08:48→20:03)
[2020-05-23] MEDS: CEFEPIME 2 GM in SODIUM CHLORIDE 0.9% 100 ML IVPB SCH ×2 (08:48→20:03)
[2020-05-23] MEDS: allopurinoL 100 MG TAB PO SCH (08:48)
[2020-05-23] MEDS: MONTELUKAST 10 MG TAB PO SCH (08:48)
[2020-05-23] MEDS: SERTRALINE 50 MG TAB PO SCH (08:48)
[2020-05-23] MEDS: amLODIPine 5 MG TAB PO SCH (08:48)
[2020-05-23] MEDS: FINASTERIDE 5 MG TAB PO SCH (08:48)
[2020-05-23] MEDS: HEPARIN SODIUM,PORCINE 5,000 UNIT/ML 1 ML VIAL SQ SCH ×2 (08:48→20:04)
[2020-05-23] MEDS: ALBUTEROL HFA INHALER INHALATION PRN ×2 (09:23→12:42)
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
--- NOTE | 2020-05-23 10:28 | P.PN ---
Subjective Progress Note Date: 05/23/20 Principal diagnosis: Left lower lobe pneumonia Acute on chronic respiratory failure End-stage lung disease secondary to due to severe COPD emphysema Chronic pain syndrome Morbid obesity Sleep disorder breathing and sleep apnea 05/23/2020, patient seen eval examined during the rounds labs reviewed medications reviewed care plan discussed, respiratory status remains marginal, breathing treatments have been helping, remains afebrile on 2 L oxygen This is a 64-year-old male with past medical history of end-stage COPD on home oxygen also has a significant history of obstructive sleep apnea has been noncompliant with his CPAP machine with chronic pain syndrome involving the spine came into the hospital with 3-4 day history of progressive increased coughing thick sputum which is turning yellow came into the hospital his chest x-ray showed new left-sided infiltrate now he is been on antibiotics breathing treatments steroids and supportive care, influenza A and B are negative, covert 19 testing is pending Objective - Vital Signs Vital signs: Vital Signs Temp 97.5 F L 05/23/20 07:00 Pulse 60 05/23/20 07:45 Resp 18 05/23/20 07:45 BP 133/76 05/23/20 07:00 Pulse Ox 98 05/23/20 07:00 Intake & Output 05/22/20 05/23/20 05/23/20 18:59 06:59 18:59 Intake Total 700 Balance 700 Weight 95.254 kg Intake: Intake, IV Titration 350 Amount Piperacillin-Tazobactam 3 100 .375 gm In Sodium Chloride 0.9% 100 ml @ 200 mls/hr IVPB ONCE STA Rx#:[id number] Vancomycin 1,500 mg In 250 Sodium Chloride 0.9% 250 ml @ 125 mls/hr IVPB ONCE ONE Rx#:[id number] Oral 350 Other: Voiding Method Toilet Toilet - Exam - Constitutional General appearance: average body habitus, cooperative, disheveled, morbidly obese - EENT Eyes: EOMI, PERRLA Ears: bilateral: normal - Neck Neck: normal ROM Carotids: bilateral: upstroke normal Thyroid: bilateral: normal size - Respiratory Respiratory: bilateral: diminished - Cardiovascular Rhythm: regular Heart sounds: normal: S1, S2 - Gastrointestinal General gastrointestinal: distended, normal bowel sounds - Integumentary Integumentary: normal turgor - Neurologic Neurologic: CNII-XII intact - Musculoskeletal Musculoskeletal: gait normal, generalized weakness, strength equal bilaterally - Psychiatric Psychiatric: A&O x's 3, appropriate affect, intact judgment & insight - Labs CBC & Chem 7: 05/22/20 09:56 05/22/20 09:56 Labs: Abnormal Lab Results - Last 24 Hours (Table) 05/22/20 05/22/20 Range/Units 09:56 09:56 APTT 20.7 L (22.0-30.0) sec Plasma Lactic Acid [place] 2.4 H* (0.7-2.0) mmol/L Assessment and Plan Assessment: Left lower lobe pneumonia Acute on chronic respiratory failure End-stage 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
--- NOTE | 2020-05-23 11:13 | P.PN ---
Subjective 63-year-old male with past history of COPD and degenerative disc disease, eosinophilic asthma, chronic pain and hypertension and obstructive sleep apnea with multiple admissions previously . Presents to emergency room with dyspnea and cough with wheezing of 2 days' duration He had fever on admission 101.2. As other vitals are stable. No leukocytosis undressed of CBC is unremarkable, INR is normal 1.0, creatinine is slightly elevated at 1.38, on chest creatinine was ranging between 1.7-2.3, hold last night was normal at 0.8-1.0. Liver enzymes are normal. UA is still suspicious of infection EKG showing normal sinus rhythm at 82 with right bundle branch block and no significant ST-T changes and QTC is 450. Chest x-ray: Showing new multifocal left mid to lower lung to acute infiltrate most prominent in the lingula, patient was in the hospital last month for 2-3 days. 05/23/2020 Patient still having tachypnea and dyspnea today, although his doctor freely. He reports slight improvement. He is saturating 95% on 2 L nasal cannula Elevated lactic acid at 2.4, came back to normal at 1.3. Influenza is not detected. Covid test and sputum culture still pending. restf labs from today are still pending Pulmonary input is appreciated Continue with vancomycin and cefepime. Objective - Vital Signs Vital signs: Vital Signs Temp 97.5 F L 05/23/20 07:00 Pulse 60 05/23/20 07:45 Resp 18 05/23/20 07:45 BP 133/76 05/23/20 07:00 Pulse Ox 98 05/23/20 07:00 Intake & Output 05/22/20 05/23/20 05/23/20 18:59 06:59 18:59 Intake Total 700 Balance 700 Weight 95.254 kg Intake: Intake, IV Titration 350 Amount Piperacillin-Tazobactam 3 100 .375 gm In Sodium Chloride 0.9% 100 ml @ 200 mls/hr IVPB ONCE STA Rx#:[id number] Vancomycin 1,500 mg In 250 Sodium Chloride 0.9% 250 ml @ 125 mls/hr IVPB ONCE ONE Rx#:[id number] Oral 350 Other: Voiding Method Toilet Toilet - Exam GENERAL: The patient is alert and oriented x3, not in any acute distress. Well developed, well nourished. HEENT: Pupils are round and equally reacting to light. EOMI. No scleral icterus. No conjunctival pallor. Normocephalic, atraumatic. No pharyngeal erythema. No thyromegaly. CARDIOVASCULAR: S1 and S2 present. No murmurs, rubs, or gallops. -PULMONARY: Chest is clear to auscultation, bilateral scattered wheezing and fa shion breath sounds with coarse crepitation especially on the left side. ABDOMEN: Soft, nontender, nondistended, normoactive bowel sounds. No palpable organomegaly. MUSCULOSKELETAL: No joint swelling or deformity. EXTREMITIES: No cyanosis, clubbing, or pedal edema. NEUROLOGICAL: Gross neurological examination did not reveal any focal deficits. SKIN: No rashes. No petechiae - Labs CBC & Chem 7: 05/22/20 09:56 05/22/20 09:56 Assessment and Plan Assessment: Left mid and lower lung pneumonia, healthcare associated pneumonia Acute recurrent COPD exacerbation with purulent tracheobronchitis Elevated lactic acid, came back to normal Possible acute kidney injury versus chronic kidney disease Drug-seeking behavior, patient is known to me from previous admission Chronic pain syndrome Obstructive sleep apnea on CPAP at home GERD Hypertension Osteoarthritis History of atrial flutter. Anxiety/depression, bipolar disorder and panic disorder Claustrophobia Previous history of smoking History of heavy alcohol abuse Marijuana use Plan: This is a pleasant 64 years old male who presents with pneumonia and COPD. Continue with antibiotics. Pulmonary consult, bronchodilator on oxygen as needed. Gentle hydration. Continue with antibiotics with infectious disease consult. Check for influenza, covid and sputum culture Labs and medication were reviewed.. Continue same treatment. Continue with symptomatic treatment. Resume home medication. Monitor lytes and vitals. DVT and GI prophylaxis. Further recommendations depends on the clinical course of the patient DVT prophylaxis: Subcutaneous heparin GI Prophylaxis: Pepcid PT/OT: Pending Prognosis is guarded
[2020-05-23 15:35] LABS: African American GFR (CKD) 92.4 (60.0-200.0); Anion Gap 7.4 mmol/L (4.00-12.00); Calcium 8.6 mg/dL (8.7-10.3); Carbon Dioxide 22.6 mmol/L (21.6-31.8); Magnesium 1.5 mg/dL (1.5-2.4); Non-African American GFR(CKD) 79.7 (60.0-200.0); Potassium 3.5 mmol/L (3.5-5.5)
[2020-05-23] MEDS ORDERED: HYDROcodone/APAP 5-325MG 1 EACH TAB PO STA (16:47)
[2020-05-23] MEDS ORDERED: CYCLOBENZAPRINE 5 MG TAB PO STA (16:48)
[2020-05-24] MEDS: HYDROcodone/APAP 10-325MG 1 EACH TAB PO PRN ×5 (01:25→23:10)
[2020-05-24] MEDS: VANCOMYCIN 1,500 MG in SODIUM CHLORIDE 0.9% 250 ML IVPB SCH ×2 (04:08→15:51)
[2020-05-24] MEDS: ALBUTEROL HFA INHALER INHALATION PRN ×4 (07:20→20:28)
[2020-05-24] MEDS: allopurinoL 100 MG TAB PO SCH (07:58)
[2020-05-24] MEDS: MONTELUKAST 10 MG TAB PO SCH (07:58)
[2020-05-24] MEDS: FINASTERIDE 5 MG TAB PO SCH (07:58)
[2020-05-24] MEDS: SERTRALINE 50 MG TAB PO SCH (07:58)
[2020-05-24] MEDS: hydrALAZINE HCL 25 MG TAB PO SCH ×2 (07:58→20:36)
[2020-05-24] MEDS: TAMSULOSIN 0.4 MG CAP.ER.24H PO SCH (07:58)
[2020-05-24] MEDS: amLODIPine 5 MG TAB PO SCH (07:59)
[2020-05-24] MEDS: METOPROLOL SUCCINATE (ER) 25 MG TAB.ER.24H PO SCH (07:59)
[2020-05-24] MEDS: buPROPion XL 150 MG TAB.ER.24H PO SCH ×2 (07:59→20:36)
[2020-05-24] MEDS: CEFEPIME 2 GM in SODIUM CHLORIDE 0.9% 100 ML IVPB SCH ×2 (08:00→23:09)
[2020-05-24] MEDS: FAMOTIDINE 20 MG/2 ML VIAL IV SCH (08:01)
[2020-05-24] MEDS: HEPARIN SODIUM,PORCINE 5,000 UNIT/ML 1 ML VIAL SQ SCH ×2 (08:01→20:36)
--- NOTE | 2020-05-24 10:53 | P.PN ---
Subjective Progress Note Date: 05/24/20 Principal diagnosis: Left lower lobe pneumonia Acute on chronic respiratory failure End-stage lung disease secondary to due to severe COPD emphysema Chronic pain syndrome Morbid obesity Sleep disorder breathing and sleep apnea 05/24/2020, patient seen alisson examined during the rounds Z reviewed medications reviewed still feeling congested, remains on antibiotics and breathing treatments steroids, continued to complain of pain, will defer the pain management primary service, but patient may benefit from some pain medicine at nighttime so he can sleep better 05/23/2020, patient seen alisson examined during the rounds labs reviewed medications reviewed care plan discussed, respiratory status remains marginal, breathing treatments have been helping, remains afebrile on 2 L oxygen This is a 64-year-old male with past medical history of end-stage COPD on home oxygen also has a significant history of obstructive sleep apnea has been noncompliant with his CPAP machine with chronic pain syndrome involving the spine came into the hospital with 3-4 day history of progressive increased coughing thick sputum which is turning yellow came into the hospital his chest x-ray showed new left-sided infiltrate now he is been on antibiotics breathing treatments steroids and supportive care, influenza A and B are negative, covert 19 testing is pending Objective - Vital Signs Vital signs: Vital Signs Temp 97.5 F L 05/24/20 07:00 Pulse 61 05/24/20 07:00 Resp 18 05/24/20 07:45 BP 173/83 05/24/20 07:00 Pulse Ox 95 05/24/20 07:00 Intake & Output 05/23/20 05/24/20 05/24/20 18:59 06:59 18:59 Intake Total 500 Balance 500 Intake: Intake, IV Titration 100 Amount Cefepime 2 gm In Sodium 100 Chloride 0.9% 100 ml @ 25 mls/hr IVPB Q12HR [facility] Rx #:[id number] Oral 400 Other: Voiding Method Toilet Toilet Toilet # Voids 3 5 - Exam - Constitutional General appearance: average body habitus, cooperative, disheveled, morbidly obese - EENT Eyes: EOMI, PERRLA Ears: bilateral: normal - Neck Neck: normal ROM Carotids: bilateral: upstroke normal Thyroid: bilateral: normal size - Respiratory Respiratory: bilateral: diminished - Cardiovascular Rhythm: regular Heart sounds: normal: S1, S2 - Gastrointestinal General gastrointestinal: distended, normal bowel sounds - Integumentary Integumentary: normal turgor - Neurologic Neurologic: CNII-XII intact - Musculoskeletal Musculoskeletal: gait normal, generalized weakness, strength equal bilaterally - Psychiatric Psychiatric: A&O x's 3, appropriate affect, intact judgment & insight - Labs CBC & Chem 7: 05/22/20 09:56 05/23/20 09:31 Labs: Abnormal Lab Results - Last 24 Hours (Table) 05/23/20 Range/Units 09:31 Chloride 112 H (96-109) mmol/L BUN/Creatinine Ratio 23.00 H (12.00-20.00) Ratio Calcium 8.6 L (8.7-10.3) mg/dL Microbiology - Last 24 Hours (Table) 05/22/20 10:04 Blood Culture - Preliminary Blood No Growth after 24 hours Assessment and Plan Assessment: Left lower lobe pneumonia Acute on chronic respiratory failure End-stage 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
[2020-05-24 11:23] LABS: African American GFR (CKD) 92.4 (60.0-200.0); Anion Gap 7.5 mmol/L (4.00-12.00); Calcium 8.9 mg/dL (8.7-10.3); Carbon Dioxide 25.5 mmol/L (21.6-31.8); Magnesium 1.4 mg/dL (1.5-2.4); Non-African American GFR(CKD) 79.7 (60.0-200.0); Potassium 3.6 mmol/L (3.5-5.5)
[2020-05-24] MEDS ORDERED: Magnesium Replacement Protocol 1 EACH MISC MISCELLANE PRN ×2 (14:06→14:56)
[2020-05-24] MEDS ORDERED: Potassium Replacement Protocol 1 EACH MISC MISCELLANE PRN (14:06)
--- NOTE | 2020-05-24 14:32 | XR ---
EXAMINATION TYPE: XR chest 1V portable DATE OF EXAM: 05/24/2020 COMPARISON: Prior chest x-ray 05/22/2020 HISTORY: Pneumonia, cough TECHNIQUE: Single frontal view of the chest is obtained. FINDINGS: There is improved aeration as compared to prior exam. No pneumothorax or pleural effusion. Heart size may be accentuated by technique, rotation. IMPRESSION: Improved aeration.
[2020-05-24] MEDS ORDERED: VANCOMYCIN TROUGH DUE 1 EACH MISC MISCELLANE ONE (15:00)
--- NOTE | 2020-05-24 15:06 | PN ---
PROGRESS NOTE DATE OF SERVICE: 05/24/2020 This is a 64-year-old gentleman with a past medical history of multiple medical problems with COPD exacerbation as well as left lower lobe pneumonia. The patient follows with Dr. Shah in the outpatient setting. Dr. Granados has also seen the patient. Patient had multiple bronchoscopies in the past. However, the patient gives history of 2 of his elder brothers dying of COVID-19 recently. Initially one of his elder brothers in [facility] and subsequently after the after 10 days his second brother also of COVID in the [place] area. Currently the chest x-ray showed significant multilobar pneumonia on the left, type of pneumonia on the left lower lobe. PAST MEDICAL HISTORY: REVIEWED. REVIEW OF SYSTEMS: CARDIOVASCULAR: No angina. RESPIRATION: As mentioned earlier. GI: As mentioned earlier. : No dysuria. NERVOUS SYSTEM: As mentioned earlier. CURRENT MEDICATIONS: Reviewed and include: [place] 10 mg, Ventolin, Zyloprim, Norvasc, Symbicort, Wellbutrin, cefepime, Pepcid, Proscar, heparin, Naprosyn, Toprol, magnesium oxide, Singulair, Zoloft, Flomax, vancomycin. PHYSICAL EXAM: Patient is alert and oriented x3. Pulse is 61. Blood pressure 173/80, respiration 18, temperature 97.4, pulse ox 94% on 2 L. HEENT: Conjunctivae normal. NECK: No jugular venous distension. CARDIOVASCULAR: S1, S2, muffled. RESPIRATION: Breath sounds diminished at the bases, a few scattered rhonchi, no crackles. ABDOMEN: Soft, nontender. LEGS: No edema. No swelling. LABS: Sodium is 142, creatinine is 1. ASSESSMENT: 1. Chronic obstructive pulmonary disease exacerbation with left lower pneumonia, possibly COVID-19 pneumonia. 2. Possibly healthcare associated pneumonia. 3. Elevated lactic acid, possibly secondary to sepsis. 4. Acute renal failure, multifactorial. 5. Chronic pain syndrome. 6. Obstructive sleep apnea. 7. GERD. 8. Hypertension. 9. DJD. 10.History of atrial fibrillation. 11.History of anxiety, depression, bipolar, panic disorder. 12.Claustrophobia. 13.History of nicotine dependence. 14.History of heavy alcohol. 15.History of THC. 16.FULL CODE. 17.Obesity with body mass index of 31.9. RECOMMENDATION: This 64-year-old gentleman who presented with multiple complex medical issues, will monitor the patient closely, continue with the current management and symptomatic treatment. I would also recommend IV antibiotics bronchodilators, steroids. Discussed with Dr. Granados. The patient is highly suspicious for COVID pneumonia, even though the testing is negative. Negative test could be false positive. I would recommend Remdesivir treatment the newly FDA approved medication for COVID. The prognosis extremely guarded because of the multiple complex medical issues. The prognosis guarded. Further recommendations were discussed the patient, discussed with Dr. Granados, the primary operator. MMODL / IJN: [id number] /
--- NOTE | 2020-05-24 16:15 | CT ---
EXAMINATION TYPE: CT chest wo con DATE OF EXAM: 05/24/2020 COMPARISON: CT dated 09/23/2018 chest x-ray 05/24/2020 HISTORY: pneumonia CT DLP: 579.3 mGycm. Automated Exposure Control for Dose Reduction was Utilized. TECHNIQUE: CT scan of the thorax is performed without IV contrast. FINDINGS: Prominence of fat at the level of the aortic hiatus again noted, there may be a small hiata l hernia. Lack of intravenous contrast could compromise sensitivity. LUNGS: The lungs are remarkable for abnormal airspace disease in the left upper lobe There is no pleu ral effusion or pneumothorax seen. The tracheobronchial tree is patent. MEDIASTINUM: Lack of IV contrast is noted to limit evaluation for mediastinal and especially hilar ad enopathy. There are no definitive greater than 1 cm hilar or mediastinal lymph nodes. No cardiomega ly or pericardial effusion is seen. Coronary artery calcifications. Calcifications present at the juan t of the aorta and possibly along the aortic valve leaflets OTHER: Spleen is at the upper limit of normal for size. IMPRESSION: Correlate for pneumonia, follow-up is recommended.
[2020-05-24] MEDS ORDERED: REMDESIVIR (EUA) 200 MG in SODIUM CHLORIDE 0.9% 250 ML IVPB ONE (17:00)
[2020-05-24 17:59] LABS: C Reactive Protein 11.3 mg/dL (0.0-0.8)
[2020-05-24] MEDS: MAGNESIUM SULFATE-D5W PMX 1 GM in DEXTROSE/WATER 1 100ML.BAG IVPB SCH ×3 (19:31→21:47)
[2020-05-24] MEDS: FAMOTIDINE 20 MG TAB PO SCH (20:36)
[2020-05-24] MEDS: guaiFENesin-DM 100-10MG/5ML 10 ML CUP PO PRN (21:48)
[2020-05-25] MEDS: VANCOMYCIN 1,500 MG in SODIUM CHLORIDE 0.9% 250 ML IVPB SCH ×2 (03:45→16:03)
[2020-05-25 06:54] LABS: Basophils % (A) 0 %; Eosinophils # (A) 0.2 k/uL (0-0.7); Eosinophils % (A) 3 %; HCT 35.9 % (39.0-53.0); HGB 11.5 gm/dL (13.0-17.5); Lymphocytes # (A) 0.8 k/uL (1.0-4.8); Lymphocytes % (A) 14 %; MCH 29.8 pg (25.0-35.0); MCV 93.1 fL (80.0-100.0); Mean Platelet Volume 7.8; Monocytes # (A) 0.3 k/uL (0-1.0); Monocytes % (A) 6 %; Neutrophils % (A) 75 %; Platelet Count 149 k/uL (150-450); RBC 3.86 m/uL (4.30-5.90); RDW 13.9 % (11.5-15.5); WBC 5.4 k/uL (3.8-10.6)
[2020-05-25] MEDS: SERTRALINE 50 MG TAB PO SCH (07:22)
[2020-05-25] MEDS: buPROPion XL 150 MG TAB.ER.24H PO SCH ×2 (07:22→20:48)
[2020-05-25] MEDS: allopurinoL 100 MG TAB PO SCH (07:22)
[2020-05-25] MEDS: FINASTERIDE 5 MG TAB PO SCH (07:22)
[2020-05-25] MEDS: MONTELUKAST 10 MG TAB PO SCH (07:22)
[2020-05-25] MEDS: METOPROLOL SUCCINATE (ER) 25 MG TAB.ER.24H PO SCH (07:23)
[2020-05-25] MEDS: FAMOTIDINE 20 MG TAB PO SCH ×2 (07:23→20:48)
[2020-05-25] MEDS: hydrALAZINE HCL 25 MG TAB PO SCH ×2 (07:23→20:48)
[2020-05-25] MEDS: TAMSULOSIN 0.4 MG CAP.ER.24H PO SCH (07:23)
[2020-05-25] MEDS: amLODIPine 5 MG TAB PO SCH (07:23)
[2020-05-25] MEDS: CEFEPIME 2 GM in SODIUM CHLORIDE 0.9% 100 ML IVPB SCH ×2 (07:24→20:47)
[2020-05-25] MEDS: HEPARIN SODIUM,PORCINE 5,000 UNIT/ML 1 ML VIAL SQ SCH ×2 (07:24→20:48)
[2020-05-25] MEDS: HYDROcodone/APAP 10-325MG 1 EACH TAB PO PRN ×4 (07:24→23:59)
[2020-05-25] MEDS: SYMBICORT 80-4.5 MCG INHALER INHALATION SCH ×2 (08:27→20:12)
[2020-05-25] MEDS: IPRATROPIUM 0.5 MG/2.5 ML NEBU INHALATION SCH ×4 (08:34→20:16)
[2020-05-25 10:05] LABS: Anion Gap 6.2 mmol/L (4.00-12.00); BUN/Creat Ratio 8.89 Ratio (12.00-20.00); Calcium 8.7 mg/dL (8.7-10.3); Carbon Dioxide 27.8 mmol/L (21.6-31.8); Magnesium 2.1 mg/dL (1.5-2.4); Non-African American GFR(CKD) 90.6 (60.0-200.0); Potassium 3.4 mmol/L (3.5-5.5)
[2020-05-25] MEDS ORDERED: Potassium Replacement Protocol 1 EACH MISC MISCELLANE PRN ×2 (10:12→10:18)
[2020-05-25] MEDS: guaiFENesin-DM 100-10MG/5ML 10 ML CUP PO PRN ×2 (10:16→23:59)
[2020-05-25] MEDS: POTASSIUM CHLORIDE ER 20 MEQ TAB.ER PO SCH (10:22)
--- NOTE | 2020-05-25 10:49 | P.PN ---
Subjective Progress Note Date: 05/25/20 Principal diagnosis: Presumed covid 19 pneumonia Left lower lobe pneumonia Acute on chronic respiratory failure End-stage lung disease secondary to due to severe COPD emphysema Chronic pain syndrome Morbid obesity Sleep disorder breathing and sleep apnea 05/25/2020, patient seen eval examined during rounds labs reviewed medications reviewed cuff congestion slightly better denies any chest pain, patient remains in continued to have pain issues, patient has been presumed to have covert 19 pneumonia has been started on antiviral due to high risk factors and contact history, today is the second day, patient had a CT as well as the chest x-ray done reviewed continue show a left upper lobe infiltrate 05/24/2020, patient seen eval examined during the rounds Z reviewed medications reviewed still feeling congested, remains on antibiotics and breathing treatments steroids, continued to complain of pain, will defer the pain management primary service, but patient may benefit from some pain medicine at nighttime so he can sleep better 05/23/2020, patient seen eval examined during the rounds labs reviewed medications reviewed care plan discussed, respiratory status remains marginal, breathing treatments have been helping, remains afebrile on 2 L oxygen This is a 64-year-old male with past medical history of end-stage COPD on home oxygen also has a significant history of obstructive sleep apnea has been noncompliant with his CPAP machine with chronic pain syndrome involving the spine came into the hospital with 3-4 day history of progressive increased coughing thick sputum which is turning yellow came into the hospital his chest x-ray showed new left-sided infiltrate now he is been on antibiotics breathing treatments steroids and supportive care, influenza A and B are negative, covert 19 testing is pending Objective - Vital Signs Vital signs: Vital Signs Temp 98.0 F 05/25/20 07:00 Pulse 60 05/25/20 08:45 Resp 16 05/25/20 07:00 BP 179/82 05/25/20 07:00 Pulse Ox 93 L 05/25/20 07:00 Intake & Output 05/24/20 05/25/20 05/25/20 18:59 06:59 18:59 Intake Total 900 Balance 900 Intake: Intake, IV Titration 900 Amount Cefepime 2 gm In Sodium 100 Chloride 0.9% 100 ml @ 25 mls/hr IVPB Q12HR [facility] Rx #:[id number] Magnesium Sulfate-D5w Pmx 300 1 gm In Dextrose/Water 1 100ml.bag @ 100 mls/hr IVPB Q1H [facility] Rx#: [id number] Remdesivir (Eua) 100 mg 250 In Sodium Chloride 0.9% 250 ml @ 250 mls/hr IVPB DAILY@1700 [facility] Rx#: [id number] Vancomycin 1,500 mg In 250 Sodium Chloride 0.9% 250 ml @ 125 mls/hr IVPB Q12H [facility] Rx#:[id number] Other: Voiding Method Toilet Toilet # Voids 4 - Exam - Constitutional General appearance: average body habitus, cooperative, disheveled, morbidly obese - EENT Eyes: EOMI, PERRLA Ears: bilateral: normal - Neck Neck: normal ROM Carotids: bilateral: upstroke normal Thyroid: bilateral: normal size - Respiratory Respiratory: bilateral: diminished - Cardiovascular Rhythm: regular Heart sounds: normal: S1, S2 - Gastrointestinal General gastrointestinal: distended, normal bowel sounds - Integumentary Integumentary: normal turgor - Neurologic Neurologic: CNII-XII intact - Musculoskeletal Musculoskeletal: gait normal, generalized weakness, strength equal bilaterally - Psychiatric Psychiatric: A&O x's 3, appropriate affect, intact judgment & insight - Labs CBC & Chem 7: 05/25/20 06:38 05/25/20 06:38 Labs: Abnormal Lab Results - Last 24 Hours (Table) 05/24/20 05/24/20 05/24/20 Range/Units 06:46 06:46 06:46 RBC (4.30-5.90) m/uL Hgb (13.0-17.5) gm/dL Hct (39.0-53.0) % Plt Count (150-450) k/uL Lymphocytes # (1.0-4.8) k/uL ESR 37 H (0-20) mm/Hr Potassium (3.5-5.5) mmol/L BUN (9.0-27.0) mg/dL BUN/Creatinine Ratio (12.00-20.00) Ratio Magnesium 1.4 L (1.5-2.4) mg/dL Lactate Dehydrogenase 94 L (120-246) U/L Creatine Kinase 33 L (35-257) U/L C-Reactive Protein 11.3 H (0.0-0.8) mg/dL Procalcitonin (0.02-0.09) ng/mL 05/24/20 05/25/20 05/25/20 Range/Units 06:46 06:38 06:38 RBC 3.86 L (4.30-5.90) m/uL Hgb 11.5 L (13.0-17.5) gm/dL Hct 35.9 L (39.0-53.0) % Plt Count 149 L (150-450) k/uL Lymphocytes # 0.8 L (1.0-4.8) k/uL ESR (0-20) mm/Hr Potassium 3.4 L (3.5-5.5) mmol/L BUN 8.0 L (9.0-27.0) mg/dL BUN/Creatinine Ratio 8.89 L (12.00-20.00) Ratio Magnesium (1.5-2.4) mg/dL Lactate Dehydrogenase (120-246) U/L Creatine Kinase (35-257) U/L C-Reactive Protein (0.0-0.8) mg/dL Procalcitonin 7.85 H (0.02-0.09) ng/mL Microbiology - Last 24 Hours (Table) 05/22/20 10:04 Blood Culture - Preliminary Blood No Growth after 48 hours Assessment and Plan Assessment: Presumed covid 19 pneumonia Left upper lobe pneumonia Acute on chronic respiratory failure End-stage lung disease secondary to due to severe COPD emphysema Chronic pain syndrome Morbid obesity Sleep disorder breathing and sleep apnea Plan: Continue IV steroids breathing treatments and antibiotic supportive care continue deep breathing sense incentive spirometry pain management as per primary service, continue supplemental oxygen as per presence of risk factors contact history and discussion with Dr. Avilez patient has been started on Remdesevir to finish 5 day of therapy Time with Patient: Greater than 30
[2020-05-25] MEDS ORDERED: POTASSIUM BICARBONATE/CIT AC 20 MEQ TABLET.EFF NG-TUBE SCH (11:00)
[2020-05-25] MEDS: HYDROmorphone 0.5 MG/0.5 ML SYRINGE IVP PRN ×2 (14:46→20:48)
[2020-05-25] MEDS: ALBUTEROL HFA INHALER INHALATION PRN ×2 (15:35→20:11)
[2020-05-25] MEDS: REMDESIVIR (EUA) 100 MG in SODIUM CHLORIDE 0.9% 250 ML IVPB SCH (18:15)
--- NOTE | 2020-05-25 19:06 | PN ---
PROGRESS NOTE DATE OF SERVICE: 05/25/2020. HISTORY: This 64-year-old gentleman who was admitted with possible COVID 19 pneumonia is being closely monitored. Patient also being treated with broad-spectrum IV antibiotics as well as cefepime as well as Remdesivir has also been initiated. Please note that the patient's 2 brothers recently because of COVID-19 pneumonia in a short span of time, with whom the patient had some contact. PAST MEDICAL HISTORY: History reviewed. REVIEW OF SYSTEMS: CARDIOVASCULAR SYSTEM: No angina. RESPIRATORY: As mentioned. GI: As mentioned earlier. : As mentioned earlier. MEDICATIONS: Reviewed include [place] 10 mg, zyloprim, Symbicort, Wellbutrin, Pepcid, Remdesivir. Doses reviewed. PHYSICAL EXAM: Patient is alert, oriented x3. Pulse is 78, blood pressure 140/70, respirations 18, temperature 98.2, pulse ox 98% on room air. HEENT: Conjunctivae normal. NECK: Supple. CARDIOVASCULAR: S1 and S2 muffled. LUNGS: Breath sounds diminished at the bases. Bilateral scattered rhonchi and crackles. ABDOMEN: Soft nontender. LEGS: No edema. No swelling. WHEEL PRESSER: No focal deficits. LABS: WBC 5.2, hemoglobin 11.5, sodium 143, potassium 3.4. C-reactive protein is 11.3. Procalcitonin 7.85. Magnesium 1.4. ASSESSMENT: 1. Chronic obstructive pulmonary disease exacerbation with left lower pneumonia possibly code 19, pneumonia, interstitial pneumonia. 2. Possible healthcare associated pneumonia. 3. Elevated lactic acid, possibly secondary to sepsis. 4. Acute renal failure, multifactorial. 5. Chronic pain syndrome. 6. History of sleep apnea. 7. GERD. 8. Hypertension. 9. History DJD. 10.History atrial fibrillation. 11.Anxiety depression bipolar panic disorder. 12.History of claustrophobia. 13.History of nicotine dependence. 14.History of heavy alcohol. 15.History of THC. 16.Obesity with body mass index of 31.9. 17.Full code. RECOMMENDATIONS: Continue current management and symptomatic treatment. Continue with broad-spectrum IV antibiotics. Otherwise, the cultures are negative. Continue with Remdesivir. Continue the rest of the medications. Closely follow with Pulmonary. Prognosis guarded. Further recommendations to follow. MMODL / IJN: [id number] /
[2020-05-26] MEDS: HYDROmorphone 0.5 MG/0.5 ML SYRINGE IVP PRN ×5 (02:55→22:06)
[2020-05-26] MEDS: VANCOMYCIN 1,500 MG in SODIUM CHLORIDE 0.9% 250 ML IVPB SCH ×2 (02:55→15:56)
[2020-05-26 06:00] LABS: Basophils % (A) 1 %; Eosinophils # (A) 0.1 k/uL (0-0.7); Eosinophils % (A) 3 %; HCT 34.6 % (39.0-53.0); HGB 11.2 gm/dL (13.0-17.5); Lymphocytes # (A) 0.9 k/uL (1.0-4.8); Lymphocytes % (A) 20 %; MCH 30.6 pg (25.0-35.0); MCHC 32.3 g/dL (31.0-37.0); MCV 94.6 fL (80.0-100.0); Mean Platelet Volume 8.1; Monocytes # (A) 0.4 k/uL (0-1.0); Monocytes % (A) 8 %; Neutrophils # (A) 3.1 k/uL (1.3-7.7); Neutrophils % (A) 66 %; Platelet Count 147 k/uL (150-450); RBC 3.65 m/uL (4.30-5.90); RDW 13.5 % (11.5-15.5); WBC 4.7 k/uL (3.8-10.6)
[2020-05-26 06:53] LABS: African American GFR (CKD) >90 (>60 ml/min/1.73 sqM); Anion Gap 5 mmol/L; Blood Urea Nitrogen 14 mg/dL (9-20); Calcium 8.4 mg/dL (8.4-10.2); Carbon Dioxide 28 mmol/L (22-30); Chloride 108 mmol/L (98-107); Glucose 94 mg/dL (74-99); Non-African American GFR(CKD) 85 (>60 ml/min/1.73 sqM); Potassium 3.7 mmol/L (3.5-5.1); Sodium 141 mmol/L (137-145)
[2020-05-26] MEDS: SYMBICORT 80-4.5 MCG INHALER INHALATION SCH ×2 (08:45→16:21)
[2020-05-26] MEDS: ALBUTEROL HFA INHALER INHALATION PRN ×4 (08:45→19:43)
[2020-05-26] MEDS: IPRATROPIUM 0.5 MG/2.5 ML NEBU INHALATION SCH ×4 (08:46→19:45)
[2020-05-26] MEDS: MONTELUKAST 10 MG TAB PO SCH (09:17)
[2020-05-26] MEDS: HYDROcodone/APAP 10-325MG 1 EACH TAB PO PRN ×3 (09:17→21:05)
[2020-05-26] MEDS: hydrALAZINE HCL 25 MG TAB PO SCH ×2 (09:18→20:15)
[2020-05-26] MEDS: amLODIPine 5 MG TAB PO SCH (09:18)
[2020-05-26] MEDS: FINASTERIDE 5 MG TAB PO SCH (09:18)
[2020-05-26] MEDS: allopurinoL 100 MG TAB PO SCH (09:18)
[2020-05-26] MEDS: METOPROLOL SUCCINATE (ER) 25 MG TAB.ER.24H PO SCH (09:18)
[2020-05-26] MEDS: buPROPion XL 150 MG TAB.ER.24H PO SCH ×2 (09:18→21:07)
[2020-05-26] MEDS: FAMOTIDINE 20 MG TAB PO SCH ×2 (09:18→20:15)
[2020-05-26] MEDS: TAMSULOSIN 0.4 MG CAP.ER.24H PO SCH (09:19)
[2020-05-26] MEDS: HEPARIN SODIUM,PORCINE 5,000 UNIT/ML 1 ML VIAL SQ SCH ×2 (09:19→20:15)
[2020-05-26] MEDS: SERTRALINE 50 MG TAB PO SCH (09:19)
[2020-05-26] MEDS: guaiFENesin-DM 100-10MG/5ML 10 ML CUP PO PRN (09:19)
[2020-05-26] MEDS: CEFEPIME 2 GM in SODIUM CHLORIDE 0.9% 100 ML IVPB SCH ×2 (09:48→20:15)
--- NOTE | 2020-05-26 10:09 | P.PN ---
Subjective Progress Note Date: 05/26/20 Principal diagnosis: Presumed covid 19 pneumonia Left lower lobe pneumonia Acute on chronic respiratory failure End-stage lung disease secondary to due to severe COPD emphysema Chronic pain syndrome Morbid obesity Sleep disorder breathing and sleep apnea 05/26/2020, patient seen eval examined during the rounds labs reviewed medications reviewed care plan discussed, remains on supplemental oxygen cough congestion is still present but slightly better, pain is improved with pain medicine, remains afebrile oxygen saturation in low 90s with supplemental oxygen will repeat another chest x-ray in next 24 hours 05/25/2020, patient seen eval examined during rounds labs reviewed medications reviewed cuff congestion slightly better denies any chest pain, patient remains in continued to have pain issues, patient has been presumed to have covert 19 pneumonia has been started on antiviral due to high risk factors and contact history, today is the second day, patient had a CT as well as the chest x-ray done reviewed continue show a left upper lobe infiltrate 05/24/2020, patient seen eval examined during the rounds Z reviewed medications reviewed still feeling congested, remains on antibiotics and breathing treatments steroids, continued to complain of pain, will defer the pain management primary service, but patient may benefit from some pain medicine at nighttime so he can sleep better 05/23/2020, patient seen eval examined during the rounds labs reviewed medica tions reviewed care plan discussed, respiratory status remains marginal, breathing treatments have been helping, remains afebrile on 2 L oxygen This is a 64-year-old male with past medical history of end-stage COPD on home oxygen also has a significant history of obstructive sleep apnea has been n oncompliant with his CPAP machine with chronic pain syndrome involving the spine came into the hospital with 3-4 day history of progressive increased coughing thick sputum which is turning yellow came into the hospital his chest x-ray showed new left-sided infiltrate now he is been on antibiotics breathing treatments steroids and supportive care, influenza A and B are negative, covert 19 testing is pending Objective - Vital Signs Vital signs: Vital Signs Temp 97.5 F L 05/26/20 07:00 Pulse 62 05/26/20 07:00 Resp 16 05/26/20 07:00 BP 120/80 05/26/20 07:00 Pulse Ox 92 L 05/26/20 07:00 Intake & Output 05/25/20 05/26/20 05/26/20 18:59 06:59 18:59 Intake Total 1580 250 Balance 1580 250 Intake: Intake, IV Titration 500 250 Amount Remdesivir (Eua) 100 mg 250 In Sodium Chloride 0.9% 250 ml @ 250 mls/hr IVPB DAILY@1700 [facility] Rx#: [id number] Vancomycin 1,500 mg In 250 250 Sodium Chloride 0.9% 250 ml @ 125 mls/hr IVPB Q12H [facility] Rx#:[id number] Oral 1080 Other: Voiding Method Toilet # Voids 3 4 - Exam - Constitutional General appearance: average body habitus, cooperative, disheveled, morbidly obese - EENT Eyes: EOMI, PERRLA Ears: bilateral: normal - Neck Neck: normal ROM Carotids: bilateral: upstroke normal Thyroid: bilateral: normal size - Respiratory Respiratory: bilateral: diminished - Cardiovascular Rhythm: regular Heart sounds: normal: S1, S2 - Gastrointestinal General gastrointestinal: distended, normal bowel sounds - Integumentary Integumentary: normal turgor - Neurologic Neurologic: CNII-XII intact - Musculoskeletal Musculoskeletal: gait normal, generalized weakness, strength equal bilaterally - Psychiatric Psychiatric: A&O x's 3, appropriate affect, intact judgment & insight - Labs CBC & Chem 7: 05/26/20 05:44 05/26/20 05:44 Labs: Abnormal Lab Results - Last 24 Hours (Table) 05/26/20 05/26/20 Range/Units 05:44 05:44 RBC 3.65 L (4.30-5.90) m/uL Hgb 11.2 L (13.0-17.5) gm/dL Hct 34.6 L (39.0-53.0) % Plt Count 147 L (150-450) k/uL Lymphocytes # 0.9 L (1.0-4.8) k/uL Chloride 108 H (98-107) mmol/L Microbiology - Last 24 Hours (Table) 05/22/20 10:04 Blood Culture - Preliminary Blood No Growth after 72 hours Assessment and Plan Assessment: Presumed covid 19 pneumonia Left upper lobe pneumonia Acute on chronic respiratory failure End-stage lung disease secondary to due to severe COPD emphysema Chronic pain syndrome Morbid obesity Sleep disorder breathing and sleep apnea Plan: Continue IV steroids breathing treatments and antibiotic supportive care continue deep breathing sense incentive spirometry pain management as per primary service, continue supplemental oxygen as per presence of risk factors contact history and discussion with Dr. Avilez patient has been started on Remdesivir to finish 5 day of therapy Time with Patient: Greater than 30
--- NOTE | 2020-05-26 13:20 | XR ---
EXAMINATION TYPE: XR chest 1V portable DATE OF EXAM: 05/26/2020 CLINICAL HISTORY: Difficulty breathing progress study. TECHNIQUE: Single AP portable upright view of the chest is obtained. COMPARISON: Chest x-ray and CT chest from 2 days earlier and older studies. FINDINGS: Persistent patchy left mid to lower lung opacity. Right lung remains clear. Cardiac silhou ette size stable and mildly enlarged. Osseous structures intact. IMPRESSION: Persistent left mid to lower lung acute infiltrate and/or atelectasis. No significant int erval change from most recent studies.
--- NOTE | 2020-05-26 15:17 | PN ---
PROGRESS NOTE DATE OF SERVICE: 05/26/2020 This is a 64-year-old gentleman who was admitted with possible COVID-19 pneumonia who is being closely monitored at this time. The patient had COPD acute exacerbation also. The patient had 2 family members dying because of COVID. Dr. Granados is following the patient closely. The patient is receiving Remdesivir. There is still shortness of the breath. The most recent chest x-ray which was personally reviewed by me showed bilateral lesions, left more than the right. PAST MEDICAL HISTORY: Reviewed. REVIEW OF SYSTEMS: CARDIOVASCULAR: No angina or palpitations. RESPIRATORY: As mentioned earlier. GI: As mentioned earlier. : No dysuria. NERVOUS SYSTEM: No numbness or weakness. CURRENT MEDICATIONS: Reviewed and include [place], Ventolin, zyloprim, Norvasc, Symbicort, Wellbutrin, cefepime, Pepcid, Proscar, heparin, Apresoline, Toprol-XL, replacement protocol, vancomycin, Singulair, Remdesivir, Zoloft, Flomax and vancomycin. PHYSICAL EXAM: GENERAL: Patient is alert and oriented times three. VITAL SIGNS: Pulse 68, blood pressure 137/68, respirations 16, temperature 98.2, pulse ox 93% on 2 liters. HEENT: Conjunctivae normal. NECK: No jugular venous distention. RESPIRATORY: Breath sounds diminished at the bases. A few scattered rhonchi and crackles. HEART: S1 and S2, muffled. ABDOMEN: Soft, no tenderness. EXTREMITIES: No edema, no swelling. NERVOUS: No focal deficits. LABS: WBC 4.2, hemoglobin 11.2, sodium 141, potassium 3.7 and ESR is 37. ASSESSMENT: 1. Chronic obstructive pulmonary disease acute exacerbation with left lower lobe pneumonia possibly COVID-19, pneumonia or interstitial pneumonia, on Remdesivir. 2. Possible healthcare associated pneumonia. 3. Elevated lactic acid, possibly secondary to sepsis. 4. Acute renal failure, multifactorial. 5. Chronic pain syndrome. 6. History of sleep apnea. 7. Gastroesophageal reflux disease. 8. Hypertension. 9. History of degenerative joint disease. 10.History of atrial fibrillation. 11.History of depression and bipolar panic disorder. 12.History of claustrophobia. 13.History of nicotine dependence. 14.History of heavy alcohol. 15.History of THC. 16.Obesity with body mass index 31.9. 17.FULL CODE. RECOMMENDATIONS AND DISCUSSION: In this 64-year-old gentleman who presented with multiple complex medical issues, we will monitor the patient closely. Continue the current medications, continue symptomatic treatment, continue with the current medication continue current issue. Cultures are negative at this time. Continue the bronchodilators and the rest of the medications. Inflammatory markers are noted. Potassium improved today. Prognosis guarded. Further recommendations to follow. MMODL / IJN: [id number] /
[2020-05-26] MEDS: REMDESIVIR (EUA) 100 MG in SODIUM CHLORIDE 0.9% 250 ML IVPB SCH (18:08)
[2020-05-27] MEDS: VANCOMYCIN 1,500 MG in SODIUM CHLORIDE 0.9% 250 ML IVPB SCH ×2 (03:03→15:14)
[2020-05-27] MEDS: HYDROcodone/APAP 10-325MG 1 EACH TAB PO PRN ×4 (03:03→21:11)
[2020-05-27] MEDS: HYDROmorphone 0.5 MG/0.5 ML SYRINGE IVP PRN ×4 (04:37→22:28)
[2020-05-27 06:22] LABS: Basophils % (A) 0 %; Eosinophils # (A) 0.2 k/uL (0-0.7); Eosinophils % (A) 4 %; HCT 34.6 % (39.0-53.0); HGB 11.2 gm/dL (13.0-17.5); Lymphocytes # (A) 0.9 k/uL (1.0-4.8); Lymphocytes % (A) 17 %; MCH 30.2 pg (25.0-35.0); MCHC 32.3 g/dL (31.0-37.0); MCV 93.7 fL (80.0-100.0); Mean Platelet Volume 7.7; Monocytes # (A) 0.5 k/uL (0-1.0); Monocytes % (A) 8 %; Neutrophils # (A) 3.9 k/uL (1.3-7.7); Neutrophils % (A) 69 %; Platelet Count 157 k/uL (150-450); RDW 13.8 % (11.5-15.5); WBC 5.6 k/uL (3.8-10.6)
[2020-05-27] MEDS: SYMBICORT 80-4.5 MCG INHALER INHALATION SCH ×2 (07:26→20:07)
[2020-05-27] MEDS: ALBUTEROL HFA INHALER INHALATION PRN ×4 (07:26→20:07)
--- NOTE | 2020-05-27 08:12 | XR ---
EXAMINATION TYPE: XR chest 1V portable DATE OF EXAM: 05/27/2020 CLINICAL HISTORY: pneumonia. TECHNIQUE: Portable frontal view of the chest. COMPARISON: 05/26/2020 chest radiograph FINDINGS: Cardiac silhouette borderline enlarged. Pulmonary vasculature normal. There is redemonstra kenneth patchy airspace opacity of the left mid lung, which is mildly decreased versus 05/26/2020. No ple ural effusion. No pneumothorax. The osseous structures are intact. IMPRESSION: Patchy airspace opacity of the left mid lung is mildly decreased versus 05/26/2020.
[2020-05-27] MEDS: buPROPion XL 150 MG TAB.ER.24H PO SCH ×2 (09:15→21:10)
[2020-05-27] MEDS: METOPROLOL SUCCINATE (ER) 25 MG TAB.ER.24H PO SCH (09:15)
[2020-05-27] MEDS: hydrALAZINE HCL 25 MG TAB PO SCH ×2 (09:15→21:11)
[2020-05-27] MEDS: HEPARIN SODIUM,PORCINE 5,000 UNIT/ML 1 ML VIAL SQ SCH ×2 (09:15→21:10)
[2020-05-27] MEDS: amLODIPine 5 MG TAB PO SCH (09:15)
[2020-05-27] MEDS: TAMSULOSIN 0.4 MG CAP.ER.24H PO SCH (09:15)
[2020-05-27] MEDS: FINASTERIDE 5 MG TAB PO SCH (09:15)
[2020-05-27] MEDS: FAMOTIDINE 20 MG TAB PO SCH ×2 (09:15→21:11)
[2020-05-27] MEDS: MONTELUKAST 10 MG TAB PO SCH (09:15)
[2020-05-27] MEDS: SERTRALINE 50 MG TAB PO SCH (09:15)
[2020-05-27] MEDS: CEFEPIME 2 GM in SODIUM CHLORIDE 0.9% 100 ML IVPB SCH ×2 (09:16→21:10)
[2020-05-27] MEDS: allopurinoL 100 MG TAB PO SCH (09:16)
--- NOTE | 2020-05-27 10:26 | P.PN ---
Subjective Progress Note Date: 05/27/20 Principal diagnosis: Presumed covid 19 pneumonia Left lower lobe pneumonia Acute on chronic respiratory failure End-stage lung disease secondary to due to severe COPD emphysema Chronic pain syndrome Morbid obesity Sleep disorder breathing and sleep apnea 05/27/2020, patient seen eval examined during the rounds labs reviewed medications reviewed care plan discussed, cough congestion shortness of breath slightly better, patient is on 4 day of IV Remdesivir, remains on IV steroids, chest x-ray reviewed slight improvement in infiltrate on the left side is noted, 05/26/2020, patient seen eval examined during the rounds labs reviewed medications reviewed care plan discussed, remains on supplemental oxygen cough congestion is still present but slightly better, pain is improved with pain medicine, remains afebrile oxygen saturation in low 90s with supplemental oxygen will repeat another chest x-ray in next 24 hours 05/25/2020, patient seen eval examined during rounds labs reviewed medications reviewed cuff congestion slightly better denies any chest pain, patient remains in continued to have pain issues, patient has been presumed to have covert 19 pneumonia has been started on antiviral due to high risk factors and contact history, today is the second day, patient had a CT as well as the chest x-ray done reviewed continue show a left upper lobe infiltrate 05/24/2020, patient seen eval examined during the rounds Z reviewed medications reviewed still feeling congested, remains on antibiotics and breathing treatments steroids, continued to complain of pain, will defer the pain management primary service, but patient may benefit from some pain medicine at nighttime so he can sleep better 05/23/2020, patient seen eval examined during the rounds labs reviewed medications reviewed care plan discussed, respiratory status remains marginal, breathing treatments have been helping, remains afebrile on 2 L oxygen This is a 64-year-old male with past medical history of end-stage COPD on home oxygen also has a significant history of obstructive sleep apnea has been noncompliant with his CPAP machine with chronic pain syndrome involving the spine came into the hospital with 3-4 day history of progressive increased coughing thick sputum which is turning yellow came into the hospital his chest x-ray showed new left-sided infiltrate now he is been on antibiotics breathing treatments steroids and supportive care, influenza A and B are negative, covert 19 testing is pending Objective - Vital Signs Vital signs: Vital Signs Temp 97.9 F 05/27/20 07:00 Pulse 67 05/27/20 07:00 Resp 20 05/27/20 07:00 BP 143/82 05/27/20 07:00 Pulse Ox 94 L 05/27/20 07:00 Intake & Output 05/26/20 05/27/20 05/27/20 18:59 06:59 18:59 Intake Total 540 Balance 540 Intake: Oral 540 Other: Voiding Method Toilet # Voids 3 2 - Exam - Constitutional General appearance: average body habitus, cooperative, disheveled, morbidly obese - EENT Eyes: EOMI, PERRLA Ears: bilateral: normal - Neck Neck: normal ROM Carotids: bilateral: upstroke normal Thyroid: bilateral: normal size - Respiratory Respiratory: bilateral: diminished - Cardiovascular Rhythm: regular Heart sounds: normal: S1, S2 - Gastrointestinal General gastrointestinal: distended, normal bowel sounds - Integumentary Integumentary: normal turgor - Neurologic Neurologic: CNII-XII intact - Musculoskeletal Musculoskeletal: gait normal, generalized weakness, strength equal bilaterally - Psychiatric Psychiatric: A&O x's 3, appropriate affect, intact judgment & insight - Labs CBC & Chem 7: 05/27/20 05:42 05/26/20 05:44 Labs: Abnormal Lab Results - Last 24 Hours (Table) 05/27/20 Range/Units 05:42 RBC 3.70 L (4.30-5.90) m/uL Hgb 11.2 L (13.0-17.5) gm/dL Hct 34.6 L (39.0-53.0) % Lymphocytes # 0.9 L (1.0-4.8) k/uL Microbiology - Last 24 Hours (Table) 05/22/20 10:04 Blood Culture - Preliminary Blood No Growth after 96 hours Assessment and Plan Assessment: Presumed covid 19 pneumonia Left upper lobe pneumonia Acute on chronic respiratory failure Acute exacerbation of COPD End-stage lung disease secondary to due to severe COPD emphysema Chronic pain syndrome Morbid obesity Sleep disorder breathing and sleep apnea Plan: Continue IV steroids breathing treatments and antibiotic supportive care continue deep breathing sense incentive spirometry pain management as per pr imary service, continue supplemental oxygen as per presence of risk factors contact history and discussion with Dr. Avilez patient has been started on Remdesivir to finish 5 day of therapy Time with Patient: Greater than 30
[2020-05-27] MEDS: diphenhydrAMINE 25 MG CAP PO PRN ×2 (10:47→21:11)
[2020-05-27] MEDS: guaiFENesin-DM 100-10MG/5ML 10 ML CUP PO PRN (10:47)
--- NOTE | 2020-05-27 10:52 | P.PN ---
Subjective 63-year-old male with past history of COPD and degenerative disc disease, eosinophilic asthma, chronic pain and hypertension and obstructive sleep apnea with multiple admissions previously . Presents to emergency room with dyspnea and cough with wheezing of 2 days' duration He had fever on admission 101.2. As other vitals are stable. No leukocytosis undressed of CBC is unremarkable, INR is normal 1.0, creatinine is slightly elevated at 1.38, on chest creatinine was ranging between 1.7-2.3, hold last night was normal at 0.8-1.0. Liver enzymes are normal. UA is still suspicious of infection EKG showing normal sinus rhythm at 82 with right bundle branch block and no significant ST-T changes and QTC is 450. Chest x-ray: Showing new multifocal left mid to lower lung to acute infiltrate most prominent in the lingula, patient was in the hospital last month for 2-3 days. 05/27/2020 Patient dyspnea seems like improving however his developing upper respiratory tract symptoms compared to when I saw him a few days ago. He is awake and alert. Sitting in bed not in distress. He is saturating 94% on room air. Patient is afebrile. His CBC is unremarkable as well as BMP. He is been treated for possible Covid however his Covid test was negative, and his protocol stone and was significantly elevated at 7.8 which goes more with bacterial infection and patient is currently on ceftriaxone. Also he is on Remidsver and dexamethasone per pulmonary team recommendation. Pulmonary input is appreciated Continue with vancomycin and cefepime. He was on doxycycline at home for facial rosacea Objective - Vital Signs Vital signs: Vital Signs Temp 97.9 F 05/27/20 07:00 Pulse 67 05/27/20 07:00 Resp 20 05/27/20 07:00 BP 143/82 05/27/20 07:00 Pulse Ox 94 L 05/27/20 07:00 Intake & Output 05/26/20 05/27/20 05/27/20 18:59 06:59 18:59 Intake Total 540 Balance 540 Intake: Oral 540 Other: Voiding Method Toilet # Voids 3 2 - Exam GENERAL: The patient is alert and oriented x3, not in any acute distress. Well developed, well nourished. HEENT: Pupils are round and equally reacting to light. EOMI. No scleral icterus. No conjunctival pallor. Normocephalic, atraumatic. No pharyngeal erythema. No thyromegaly. CARDIOVASCULAR: S1 and S2 present. No murmurs, rubs, or gallops. -PULMONARY: Chest is clear to auscultation, bilateral scattered wheezing and fashion breath sounds with coarse crepitation especially on the left side. ABDOMEN: Soft, nontender, nondistended, normoactive bowel sounds. No palpable organomegaly. MUSCULOSKELETAL: No joint swelling or deformity. EXTREMITIES: No cyanosis, clubbing, or pedal edema. NEUROLOGICAL: Gross neurological examination did not reveal any focal deficits. SKIN: No rashes. No petechiae - Labs CBC & Chem 7: 05/27/20 05:42 05/26/20 05:44 Labs: Abnormal Lab Results - Last 24 Hours (Table) 05/27/20 Range/Units 05:42 RBC 3.70 L (4.30-5.90) m/uL Hgb 11.2 L (13.0-17.5) gm/dL Hct 34.6 L (39.0-53.0) % Lymphocytes # 0.9 L (1.0-4.8) k/uL Microbiology - Last 24 Hours (Table) 05/22/20 10:04 Blood Culture - Preliminary Blood No Growth after 96 hours Assessment and Plan Assessment: Left mid and lower lung pneumonia, healthcare associated pneumonia Acute recurrent COPD exacerbation with purulent tracheobronchitis upper respiratory tract infection, possible viral infection. Covid 19 is suspected by pulmonary service Elevated lactic acid, came back to normal Possible acute kidney injury versus chronic kidney disease Drug-seeking behavior, patient is known to me from previous admission Chronic pain syndrome Obstructive sleep apnea on CPAP at home GERD Hypertension Osteoarthritis History of atrial flutter. Anxiety/depression, bipolar disorder and panic disorder Claustrophobia Previous history of smoking History of heavy alcohol abuse Marijuana use Plan: This is a pleasant 64 years old male who presents with pneumonia and COPD. Continue with antibiotics. Pulmonary consult, bronchodilator on oxygen as need ed. Gentle hydration. Continue with antibiotics with infectious disease consult. Continue with antiviral therapy with dexamethasone as per pulmonary services recommendation Labs and medication were reviewed.. Continue same treatment. Continue with symptomatic treatment. Resume home medication. Monitor lytes and vitals. DVT and GI prophylaxis. Further recommendations depends on the clinical course of the patient DVT prophylaxis: Subcutaneous heparin GI Prophylaxis: Pepcid PT/OT: Pending Prognosis is guarded
[2020-05-27] MEDS ORDERED: VANCOMYCIN TROUGH DUE 1 EACH MISC MISCELLANE ONE (15:00)
[2020-05-27] MEDS: REMDESIVIR (EUA) 100 MG in SODIUM CHLORIDE 0.9% 250 ML IVPB SCH (17:44)
[2020-05-28] MEDS: HYDROcodone/APAP 10-325MG 1 EACH TAB PO PRN ×3 (03:10→15:20)
[2020-05-28] MEDS ORDERED: VANCOMYCIN 1,250 MG in SODIUM CHLORIDE 0.9% 250 ML IVPB SCH (04:00)
[2020-05-28] MEDS: HYDROmorphone 0.5 MG/0.5 ML SYRINGE IVP PRN ×2 (04:50→10:25)
[2020-05-28] MEDS: hydrALAZINE HCL 25 MG TAB PO SCH (07:13)
[2020-05-28] MEDS: SERTRALINE 50 MG TAB PO SCH (07:13)
[2020-05-28] MEDS: FINASTERIDE 5 MG TAB PO SCH (07:13)
[2020-05-28] MEDS: METOPROLOL SUCCINATE (ER) 25 MG TAB.ER.24H PO SCH (07:13)
[2020-05-28] MEDS: allopurinoL 100 MG TAB PO SCH (07:13)
[2020-05-28] MEDS: buPROPion XL 150 MG TAB.ER.24H PO SCH (07:13)
[2020-05-28] MEDS: CEFEPIME 2 GM in SODIUM CHLORIDE 0.9% 100 ML IVPB SCH (07:14)
[2020-05-28] MEDS: MONTELUKAST 10 MG TAB PO SCH (07:14)
[2020-05-28] MEDS: HEPARIN SODIUM,PORCINE 5,000 UNIT/ML 1 ML VIAL SQ SCH (07:14)
[2020-05-28] MEDS: FAMOTIDINE 20 MG TAB PO SCH (07:14)
[2020-05-28] MEDS: TAMSULOSIN 0.4 MG CAP.ER.24H PO SCH (07:14)
[2020-05-28] MEDS: amLODIPine 5 MG TAB PO SCH (07:14)
[2020-05-28] MEDS: diphenhydrAMINE 25 MG CAP PO PRN (07:22)
[2020-05-28 07:48] VITALS: BP 174/90; PULSE 55; RESP 22; TEMP 97.5
[2020-05-28] MEDS: SYMBICORT 80-4.5 MCG INHALER INHALATION SCH (08:53)
[2020-05-28] MEDS: ALBUTEROL HFA INHALER INHALATION PRN ×2 (08:53→11:44)
--- NOTE | 2020-05-28 10:42 | P.PN ---
Subjective Progress Note Date: 05/28/20 Principal diagnosis: Presumed covid 19 pneumonia Left lower lobe pneumonia Acute on chronic respiratory failure End-stage lung disease secondary to due to severe COPD emphysema Chronic pain syndrome Morbid obesity Sleep disorder breathing and sleep apnea 05/28/2020, patient sitting upright on the chair breathing comfortably on supplemental oxygen her respiratory status significantly improved denies any cough congestion, wishes to go home in case of discharge can be switched to oral antibiotics and oral tapering steroids patient has finished 5 day of antiviral therapy 05/27/2020, patient seen eval examined during the rounds labs reviewed medications reviewed care plan discussed, cough congestion shortness of breath slightly better, patient is on 4 day of IV Remdesivir, remains on IV steroids, chest x-ray reviewed slight improvement in infiltrate on the left side is noted, 05/26/2020, patient seen eval examined during the rounds labs reviewed medications reviewed care plan discussed, remains on supplemental oxygen cough congestion is still present but slightly better, pain is improved with pain medicine, remains afebrile oxygen saturation in low 90s with supplemental oxygen will repeat another chest x-ray in next 24 hours 05/25/2020, patient seen eval examined during rounds labs reviewed medications reviewed cuff congestion slightly better denies any chest pain, patient remains in continued to have pain issues, patient has been presumed to have covert 19 pneumonia has been started on antiviral due to high risk factors and contact history, today is the second day, patient had a CT as well as the chest x-ray done reviewed continue show a left upper lobe infiltrate 05/24/2020, patient seen eval examined during the rounds Z reviewed medications reviewed still feeling congested, remains on antibiotics and breathing treatments steroids, continued to complain of pain, will defer the pain management primary service, but patient may benefit from some pain medicine at nighttime so he can sleep better 05/23/2020, patient seen eval examined during the rounds labs reviewed medications reviewed care plan discussed, respiratory status remains marginal, breathing treatments have been helping, remains afebrile on 2 L oxygen This is a 64-year-old male with past medical history of end-stage COPD on home oxygen also has a significant history of obstructive sleep apnea has been noncompliant with his CPAP machine with chronic pain syndrome involving the spine came into the hospital with 3-4 day history of progressive increased coughing thick sputum which is turning yellow came into the hospital his chest x-ray showed new left-sided infiltrate now he is been on antibiotics breathing treatments steroids and supportive care, influenza A and B are negative, covert 19 testing is pending Objective - Vital Signs Vital signs: Vital Signs Temp 97.5 F L 05/28/20 07:00 Pulse 55 L 05/28/20 07:00 Resp 22 05/28/20 07:00 BP 174/90 05/28/20 07:00 Pulse Ox 96 05/28/20 07:00 Intake & Output 05/27/20 05/28/20 05/28/20 18:59 06:59 18:59 Intake Total 540 Balance 540 Intake: Oral 540 Other: Voiding Method Toilet # Voids 3 3 - Exam - Constitutional General appearance: average body habitus, cooperative, disheveled, morbidly obese - EENT Eyes: EOMI, PERRLA Ears: bilateral: normal - Neck Neck: normal ROM Carotids: bilateral: upstroke normal Thyroid: bilateral: normal size - Respiratory Respiratory: bilateral: diminished - Cardiovascular Rhythm: regular Heart sounds: normal: S1, S2 - Gastrointestinal General gastrointestinal: distended, normal bowel sounds - Integumentary Integumentary: normal turgor - Neurologic Neurologic: CNII-XII intact - Musculoskeletal Musculoskeletal: gait normal, generalized weakness, strength equal bilaterally - Psychiatric Psychiatric: A&O x's 3, appropriate affect, intact judgment & insight - Labs CBC & Chem 7: 05/27/20 05:42 05/26/20 05:44 Labs: Microbiology - Last 24 Hours (Table) 05/22/20 10:04 Blood Culture - Preliminary Blood No Growth after 120 hours Assessment and Plan Assessment: Presumed covid 19 pneumonia Left upper lobe pneumonia Acute on chronic respiratory failure Acute exacerbation of COPD End-stage lung disease secondary to due to severe COPD emphysema Chronic pain syndrome Morbid obesity Sleep disorder breathing and sleep apnea Plan: Continue IV steroids breathing treatments and antibiotic supportive care continue deep breathing sense incentive spirometry pain management as per primary service, continue supplemental oxygen as per presence of risk factors contact history and discussion with Dr. Avilez patient has been started on Remdesivir to finish 5 day of therapy, can be discharged home from pulmonary standpoint with follow-up in outpatient Time with Patient: Greater than 30
[2020-05-28 13:34] VITALS: BMI 31.9
[2020-05-28] MEDS: REMDESIVIR (EUA) 100 MG in SODIUM CHLORIDE 0.9% 250 ML IVPB SCH (15:12)
--- NOTE | 2020-05-28 22:18 | P.DS ---
Providers Date of admission: 05/22/20 10:52 Attending physician: Jaydon Andrade MD Consults: 05/22/20 12:25 Consult Physician Urgent Consulting Provider: Nehemiah Granados Consult Reason/Comments: pna Do you want consulting provider notified?: Yes 05/22/20 12:45 Consult Physician Urgent Consulting Provider: Wilman Lobato Consult Reason/Comments: pna Do you want consulting provider notified?: Yes Primary care physician: Deborah Shah Hospital Course: Diagnoses: Left mid and lower lung pneumonia, healthcare associated pneumonia Acute recurrent COPD exacerbation with purulent tracheobronchitis , improved upper respiratory tract infection, possible viral infection. Covid 19 is suspected by pulmonary service . However test was negative. Improved Elevated lactic acid, came back to normal Possible acute kidney injury versus chronic kidney disease Drug-seeking behavior, patient is known to me from previous admission Chronic pain syndrome Obstructive sleep apnea on CPAP at home GERD Hypertension Osteoarthritis History of atrial flutter. Anxiety/depression, bipolar disorder and panic disorder Claustrophobia Previous history of smoking History of heavy alcohol abuse Marijuana use Hospital course:63-year-old male with past history of COPD and degenerative disc disease, eosinophilic asthma, chronic pain and hypertension and obstructive sleep apnea with multiple admissions previously . Presents to emergency room with dyspnea and cough with wheezing of 2 days' duration , he had fever on admission 101.2.Chest x-ray: Showing new multifocal infiltrates to left mid and lower lung . Patient was diagnosed with healthcare associated pneumonia, he was also been monitored and followed closely by pulmonary service with Dr. Estevez. Patient was treated with cefepime and IV vancomycin over several days, his pro- calcitonin was elevated at 7.8. Covid test and influenza test were negative. Patient also received remedsvir by pulmonary service for suspected viral infection. Patient signs symptoms significantly improved and patient is back to his baseline, he has chronic dyspnea for his COPD, patient is saturation 90s on room air, patient feels he can be discharged home today and he agrees to follow up as an outpatient. On the undersurface Dr. Granados cleared the patient for discharge. The patient denies any new complaints. Steroids were stopped several days prior to discharge and patient was discharged on Augmentin for 10 days with recommendation for outpatient follow-up with Dr. Granados from pulmonary in one week and his PCP Dr. Shah in one week and he agrees but he wants to make his own appointments Problems and management plan were discussed with the patient and he verbalized understanding and acceptance Patient was found stable and can be discharged home however he needs follow-up as an outpatient. Gen: patient is a AAOx3, no distress CVS: S1-S2, RRR, no murmur Lungs: B/L CTA, no wheezing Abdomen: soft, no distention, no tenderness, positive bowel sounds Extremity: no leg edema or induration Time spent more than 35 minutes Plan - Discharge Summary Discharge Rx Participant: No New Discharge Prescriptions: New Amoxicillin/Potassium Clav [Augmentin 875-125 Tablet] 1 tab PO Q12HR 10 Days #20 tab Famotidine [Pepcid] 20 mg PO Q12HR 10 Days #20 tab guaiFENesin-DM 100-10MG/5ML [Robitussin DM] 10 ml PO Q6H PRN ml PRN Reason: Cough Continue Montelukast [Singulair] 10 mg PO DAILY Sertraline [Zoloft] 150 mg PO DAILY buPROPion HCL [Wellbutrin XL] 150 mg PO BID Finasteride [Proscar] 5 mg PO DAILY Tamsulosin HCl [Flomax] 0.4 mg PO DAILY amLODIPine [Norvasc] 5 mg PO DAILY Allopurinol [Zyloprim] 200 mg PO DAILY Hydrocodone/Acetaminophen [[place] 10-325] 1 tab PO Q6H PRN PRN Reason: Pain Metoprolol Succinate (ER) [Toprol XL] 25 mg PO DAILY #30 tab.er.24h Doxycycline [Vibramycin] 100 mg PO BID Albuterol Inhaler [Ventolin Hfa Inhaler] 2 puff INHALATION RT-QID PRN PRN Reason: Shortness Of Breath Fluticasone/Umeclidin/Vilanter [Trelegy Ellipta 100-62.5-25] 1 puff INHALATION RT-DAILY hydrALAZINE HCL 25 mg PO BID Discontinued Cetirizine HCl 10 mg PO DAILY Discharge Medication List Montelukast [Singulair] 10 mg PO DAILY 03/16/14 [History] Sertraline [Zoloft] 150 mg PO DAILY 11/04/18 [History] buPROPion HCL [Wellbutrin XL] 150 mg PO BID 05/02/19 [History] Finasteride [Proscar] 5 mg PO DAILY 11/18/19 [History] Tamsulosin HCl [Flomax] 0.4 mg PO DAILY 11/18/19 [History] amLODIPine [Norvasc] 5 mg PO DAILY 12/23/19 [History] Allopurinol [Zyloprim] 200 mg PO DAILY 04/12/20 [History] Hydrocodone/Acetaminophen [[place] 10-325] 1 tab PO Q6H PRN 04/12/20 [History] Metoprolol Succinate (ER) [Toprol XL] 25 mg PO DAILY #30 tab.er.24h 04/14/20 [Rx] Albuterol Inhaler [Ventolin Hfa Inhaler] 2 puff INHALATION RT-QID PRN 05/22/20 [History] Doxycycline [Vibramycin] 100 mg PO BID 05/22/20 [History] Fluticasone/Umeclidin/Vilanter [Trelegy Ellipta 100-62.5-25] 1 puff INHALATION RT-DAILY 05/22/20 [History] hydrALAZINE HCL 25 mg PO BID 05/22/20 [History] Amoxicillin/Potassium Clav [Augmentin 875-125 Tablet] 1 tab PO Q12HR 10 Days #20 tab 05/28/20 [Rx] Famotidine [Pepcid] 20 mg PO Q12HR 10 Days #20 tab 05/28/20 [Rx] guaiFENesin-DM 100-10MG/5ML [Robitussin DM] 10 ml PO Q6H PRN ml 05/28/20 [Rx] Follow up Appointment(s)/Referral(s): Deborah Shah III, MD [Primary Care Provider] - 1-2 days (office closed at time of discharge. Please call to make appointment) Nehemiah Granados MD [STAFF PHYSICIAN] - 1 Week (office closed at time of discharge. Please call to make appointment) Activity/Diet/Wound Care/Special Instructions: Heart healthy diet Activity is restricted until you see your doctor Discharge Disposition: HOME SELF-CARE
== END 2020-05-28 16:34 | disposition home or self-care (01) | DRG 193 ==
LOC: EC 09:14 → 4SSUR 10:52
PROVIDERS: ADMIT Internal Medicine; ATTEND Internal Medicine
DX: J12.9 Viral pneumonia, unspecified (principal); J96.21 Acute and chronic respiratory failure with hypoxia; N17.9 Acute kidney failure, unspecified; E87.2 Acidosis; Z87.891 Personal history of nicotine dependence; Y95 Nosocomial condition; E66.01 Morbid (severe) obesity due to excess calories; Z68.31 Body mass index [BMI] 31.0-31.9, adult; F31.9 Bipolar disorder, unspecified; F40.240 Claustrophobia; F41.0 Panic disorder [episodic paroxysmal anxiety]; F41.8 Other specified anxiety disorders; G47.33 Obstructive sleep apnea (adult) (pediatric); Z99.81 Dependence on supplemental oxygen; Z99.89 Dependence on other enabling machines and devices; G89.4 Chronic pain syndrome; I10 Essential (primary) hypertension; I45.10 Unspecified right bundle-branch block; I48.91 Unspecified atrial fibrillation; J43.9 Emphysema, unspecified; K21.9 Gastro-esophageal reflux disease without esophagitis; L71.9 Rosacea, unspecified; M19.90 Unspecified osteoarthritis, unspecified site; Z20.828 Contact with and (suspected) exposure to other viral communicable diseases; Z79.899 Other long term (current) drug therapy; Z82.5 Family history of asthma and other chronic lower respiratory diseases; Z91.19 Patient's noncompliance with other medical treatment and regimen; Z82.3 Family history of stroke; Z87.01 Personal history of pneumonia (recurrent); Z76.5 Malingerer [conscious simulation]
CPT/HCPCS: 36415; 71045; 71046; 71250; 80048; 80053; 80202; 81003; 82550; 83605; 83615; 83735; 84145; 85025; 85610; 85652; 85730; 86140; 87040; 87502; 93005; 94640; 96365; 96367; 96368; 96375; 99291

== ENCOUNTER 2020-07-13 21:06 | Inpatient (IN) | payer MEDICARE, OTHER ==
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
[2020-07-13] MEDS: MORPHINE SULFATE 2 MG/ML SYRINGE IVP PRN (22:11)
--- NOTE | 2020-07-13 22:18 | XR ---
EXAMINATION TYPE: XR chest 1V portable DATE OF EXAM: 07/13/2020 COMPARISON: 05/27/2020 HISTORY: Sore throat. Vomiting. Short of breath. TECHNIQUE: Single view FINDINGS: Heart is borderline enlarged. There is no heart failure. There is slight increased intersti tial markings is no pleural effusion. There is no pulmonary consolidation. IMPRESSION: Slight increased interstitial density compared to old exam. No pulmonary consolidation or heart failure.
[2020-07-13] MEDS ORDERED: IPRATROPIUM-ALBUTEROL 3 ML NEB INHALATION STA (22:29)
[2020-07-13 22:30] LABS: Albumin 3.7 g/dL (3.5-5.0); C Reactive Protein 7.9 mg/L (<10.0); Calcium 8.8 mg/dL (8.4-10.2); Magnesium 1.9 mg/dL (1.6-2.3); Potassium 4.1 mmol/L (3.5-5.1); Total Bilirubin 0.3 mg/dL (0.2-1.3)
[2020-07-13] MEDS ORDERED: SODIUM CHLORIDE 0.9% 500 ML 500 ML IV ONE (22:40)
[2020-07-13 23:03] LABS: D-Dimer 0.38 mg/L FEU (<0.60); Partial Thromboplastin Time 22.9 sec (22.0-30.0)
[2020-07-13 23:18] LABS: Basophils # (A) 0.1 k/uL (0-0.2); Basophils % (A) 1 %; Eosinophils # (A) 0.3 k/uL (0-0.7); Eosinophils % (A) 4 %; HCT 34.4 % (39.0-53.0); HGB 11.4 gm/dL (13.0-17.5); Lymphocytes # (A) 1.3 k/uL (1.0-4.8); Lymphocytes % (A) 23 %; MCH 29.8 pg (25.0-35.0); MCHC 33.2 g/dL (31.0-37.0); MCV 89.7 fL (80.0-100.0); Mean Platelet Volume 7.5; Monocytes # (A) 0.4 k/uL (0-1.0); Monocytes % (A) 7 %; Neutrophils # (A) 3.6 k/uL (1.3-7.7); Neutrophils % (A) 63 %; Platelet Count 152 k/uL (150-450); RBC 3.84 m/uL (4.30-5.90); RDW 14.3 % (11.5-15.5); WBC 5.7 k/uL (3.8-10.6)
[2020-07-13] MEDS ORDERED: ASPIRIN 81 MG PO STA (23:40)
[2020-07-13] MEDS ORDERED: HYDROmorphone 0.5 MG/0.5 ML SYRINGE IVP STA (23:44)
[2020-07-14] MEDS: SODIUM CHLORIDE 0.9% 1,000 ML IV SCH ×2 (00:01→13:51)
[2020-07-14] MEDS: MORPHINE SULFATE 2 MG/ML SYRINGE IVP PRN (04:52)
[2020-07-14 05:11] LABS: Cholesterol 150 mg/dL (<200); HDL Cholesterol 29 mg/dL (40-60); LDL Cholesterol,Calculated 89 mg/dL (0-99); Triglycerides 160 mg/dL (<150)
[2020-07-14] MEDS ORDERED: ALBUTEROL HFA INHALER INHALATION PRN (06:52)
[2020-07-14] MEDS: IPRATROPIUM 0.5 MG/2.5 ML NEBU INHALATION SCH ×4 (07:49→20:23)
[2020-07-14] MEDS: SYMBICORT 80-4.5 MCG INHALER INHALATION SCH ×2 (07:49→20:24)
[2020-07-14] MEDS ORDERED: ASPIRIN 325 MG TAB PO SCH (09:00)
[2020-07-14] MEDS: HEPARIN SODIUM,PORCINE 5,000 UNIT/ML 1 ML VIAL SQ SCH ×2 (09:24→20:57)
[2020-07-14] MEDS: allopurinoL 100 MG TAB PO SCH (09:24)
[2020-07-14] MEDS: TAMSULOSIN 0.4 MG CAP.ER.24H PO SCH (09:25)
[2020-07-14] MEDS: PANTOPRAZOLE 40 MG TABLET PO SCH (09:32)
[2020-07-14 10:06] LABS: Ferritin 28.3 ng/mL (22.0-322.0)
[2020-07-14] MEDS ORDERED: methylPREDNISolone SOD SUCCI 40 MG/ML 1 ML VIAL IV SCH (10:15)
[2020-07-14] MEDS: FINASTERIDE 5 MG TAB PO SCH (10:45)
[2020-07-14] MEDS: MONTELUKAST 10 MG TAB PO SCH (10:45)
[2020-07-14] MEDS: SERTRALINE 100 MG TAB PO SCH (10:45)
[2020-07-14] MEDS: buPROPion XL 150 MG TAB.ER.24H PO SCH ×2 (10:45→22:41)
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
[2020-07-14] MEDS: oxyCODONE-APAP 10-325MG 1 EACH TAB PO PRN ×3 (10:54→20:57)
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
[2020-07-14] MEDS: methylPREDNISolone SOD SUCCI 40 MG/ML 1 ML VIAL IV SCH (20:58)
[2020-07-15] MEDS: oxyCODONE-APAP 10-325MG 1 EACH TAB PO PRN ×4 (03:12→20:16)
[2020-07-15] MEDS: SODIUM CHLORIDE 0.9% 1,000 ML IV SCH ×2 (03:13→20:09)
[2020-07-15] MEDS: PANTOPRAZOLE 40 MG TABLET PO SCH (06:46)
[2020-07-15] MEDS: SYMBICORT 80-4.5 MCG INHALER INHALATION SCH ×2 (08:00→18:52)
[2020-07-15] MEDS: IPRATROPIUM 0.5 MG/2.5 ML NEBU INHALATION SCH ×4 (08:00→18:52)
[2020-07-15] MEDS: allopurinoL 100 MG TAB PO SCH (08:25)
[2020-07-15] MEDS: MONTELUKAST 10 MG TAB PO SCH (08:25)
[2020-07-15] MEDS: ASPIRIN 81 MG PO SCH (08:25)
[2020-07-15] MEDS: FINASTERIDE 5 MG TAB PO SCH (08:26)
[2020-07-15] MEDS: buPROPion XL 150 MG TAB.ER.24H PO SCH ×2 (08:26→20:17)
[2020-07-15] MEDS: SERTRALINE 100 MG TAB PO SCH (08:27)
[2020-07-15] MEDS: methylPREDNISolone SOD SUCCI 40 MG/ML 1 ML VIAL IV SCH ×2 (08:27→20:16)
[2020-07-15] MEDS: HEPARIN SODIUM,PORCINE 5,000 UNIT/ML 1 ML VIAL SQ SCH ×2 (08:27→20:16)
[2020-07-15] MEDS: TAMSULOSIN 0.4 MG CAP.ER.24H PO SCH (08:28)
[2020-07-15 08:53] LABS: Basophils % (A) 0 %; Eosinophils % (A) 0 %; HCT 35.4 % (39.0-53.0); HGB 11.8 gm/dL (13.0-17.5); Lymphocytes # (A) 0.7 k/uL (1.0-4.8); Lymphocytes % (A) 8 %; MCH 30.2 pg (25.0-35.0); MCHC 33.3 g/dL (31.0-37.0); MCV 90.9 fL (80.0-100.0); Mean Platelet Volume 7.4; Monocytes # (A) 0.3 k/uL (0-1.0); Monocytes % (A) 4 %; Neutrophils # (A) 7.7 k/uL (1.3-7.7); Neutrophils % (A) 88 %; Platelet Count 148 k/uL (150-450); RDW 14.3 % (11.5-15.5); WBC 8.8 k/uL (3.8-10.6)
[2020-07-15 09:06] LABS: African American GFR (CKD) >90 (>60 ml/min/1.73 sqM); Anion Gap 6 mmol/L; Blood Urea Nitrogen 17 mg/dL (9-20); Calcium 9.4 mg/dL (8.4-10.2); Carbon Dioxide 25 mmol/L (22-30); Chloride 108 mmol/L (98-107); Glucose 123 mg/dL (74-99); Non-African American GFR(CKD) >90 (>60 ml/min/1.73 sqM); Potassium 4.2 mmol/L (3.5-5.1); Sodium 139 mmol/L (137-145)
[2020-07-15] MEDS ORDERED: HYDROmorphone 0.5 MG/0.5 ML SYRINGE IVP STA (14:17)
--- NOTE | 2020-07-15 20:36 | P.PN ---
Subjective Progress Note Date: 07/15/20 64-year-old male past medical history significant for COPD, hypertension and obstructive sleep apnea. He denies prior history of coronary artery disease and does not follow with a under presser for any reason. He is seen and examined sitting up in the bed. He is complaining of significant isadora rtness of breath and chest tightness when he breathes or coughs. He states this has been going on intermittently for months. Unfortunately he lost 2 brothers to [employer]. He states he has been checked for Covid on 3 separate occasions and all tests have been negative. EKG obtained on arrival reveals sinus mechanism with right bundle branch block heart rate of [address] or T wave abnormalities noted. Chest x-ray reveals slight increased interstitial density with no pulmonary consolidation or overt heart failure. Laboratory data, WBC 5.7, hemoglobin 11.4, platelets 152, d-dimer 0.38, sodium 140, potassium 4.1, creatinine 1.43, magnesium 1.9, cardiac enzymes negative 3, LDL 89 and HDL 29. Current daily cardiac medications include Toprol 25 mg daily, amlodipine 5 mg daily and hydralazine 25 mg twice a day. He underwent a Lexiscan stress test in January 2020 that was negative for reversible ischemia. Echocardiogram obtained in December 2019 revealed preserved LV systolic function with ejection fraction 55-60%. 07/15/2020 Patient is currently sitting the same. Still complains of back pain and also exertional dyspnea. Denies any chest pain. No nausea vomiting abdominal pain or diarrhea. Bilateral diffuse wheezing and diminished air entry on lung examination. Patient has been afebrile and is currently on oxygen at 2 L via nasal cannula. Currently being continued on antibiotics in the form of ceftriaxone for possible left lower lobe pneumonia. Laboratory data showed WBC 8.8, hemoglobin 11.8 and platelets 148 BUN 17 and creatinine 0.88 improved from 1.43 COVID-19 PCR not detected. Current medications reviewed. Objective - Vital Signs Vital signs: Vital Signs Temp 97.4 F L 07/15/20 15:00 Pulse 72 07/15/20 19:04 Resp 16 07/15/20 15:00 BP 156/75 07/15/20 15:00 Pulse Ox 96 07/15/20 15:00 Intake & Output 07/15/20 07/15/20 07/16/20 06:59 18:59 06:59 Intake Total 350 Output Total 1477 Balance -1477 350 Intake: Intake, IV Titration 50 Amount cefTRIAXone 1 gm In 50 Sodium Chloride 0.9% 50 ml @ 100 mls/hr IVPB Q24HR [facility] Rx#:[id number] Oral 300 Output: Urine 1477 Other: Voiding Method Urinal Urinal # Voids 2 2 # Bowel Movements 1 - Exam PHYSICAL EXAMINATION: Patient is lying in the bed comfortably, no acute distress, awake alert and oriented.morbidly obese. HEENT: Normocephalic. Neck is supple. Pupils reactive. Nostrils clear. Oral cavity is moist. Ears reveal no drainage. Neck reveals no JVD, carotid bruits, or thyromegaly. CHEST EXAMINATION: Trachea is central. Symmetrical expansion.Bilateral diffuse wheezing and diminished air entry.. CARDIAC: Normal S1, S2 with no gallops. No murmurs ABDOMEN: Soft. Bowel sounds normal. No organomegaly. No abdominal bruits. Extremities: trace edema. No clubbing or cyanosis Neurologically awake, alert, oriented x3 with well-coordinated movements. No focal deficits noted Skin: No rash or skin lesions. Psychiatric: Coperative. Nonsuicidal Musculoskeletal: No joint swelling or deformity. Normal range of motion. - Labs CBC & Chem 7: 07/15/20 08:29 07/15/20 08:29 Labs: Abnormal Lab Results - Last 24 Hours (Table) 07/15/20 07/15/20 Range/Units 08:29 08:29 RBC 3.90 L (4.30-5.90) m/uL Hgb 11.8 L (13.0-17.5) gm/dL Hct 35.4 L (39.0-53.0) % Plt Count 148 L (150-450) k/uL Lymphocytes # 0.7 L (1.0-4.8) k/uL Chloride 108 H (98-107) mmol/L Glucose 123 H (74-99) mg/dL Microbiology - Last 24 Hours (Table) 07/13/20 21:48 Blood Culture - Preliminary Blood No Growth after 24 hours Assessment and Plan Assessment: 1. Chest pain ruled out acute coronary syndrome; likley pleuritic. troponin x3 negative; beta blockers is on hold due to bradycardia; patient had Lexiscan stress test done in January 2020 which was negative for reversible ischemia and 2-D echocardiogram completed in December 2019 which revealed EF of 55- 60%; No further intervention per cardiology. 2. Sinus bradycardia; secondary to beta blockers; hold Toprol and monitor p atient on telemetry; we will monitor blood pressure closely and adjust medications if blood pressure escalates 3. Hypertension; Toprol has been placed on hold because of bradycardia; cardiology recommending to increase hydralazine and amlodipine for uncontrolled hypertension if needed 4. Acute renal injury; slow IV fluid hydration; monitor renal function and electrolytes; monitor strict ALBIN's and daily weights; avoid nephrotoxic agents. resolved. 5. Left lower lobe pneumonia; IV antibiotic in form of ceftriaxone; bronchodilator nebulizer treatment; patient encouraged treat breathing exercises and incentive spirometry 6. Acute exacerbation COPD; patient is started on IV steroids and b ronchodilator breathing treatments; pulmonary on board; continue home inhalers in form of Symbicort 2 puffs twice a day DVT prophylaxis; SCDs/subcu heparin CODE STATUS; full code Time with Patient: Greater than 30
[2020-07-16] MEDS: oxyCODONE-APAP 10-325MG 1 EACH TAB PO PRN ×2 (03:18→10:28)
[2020-07-16] MEDS: IPRATROPIUM 0.5 MG/2.5 ML NEBU INHALATION SCH ×2 (07:45→11:17)
[2020-07-16] MEDS: SYMBICORT 80-4.5 MCG INHALER INHALATION SCH (07:46)
[2020-07-16 08:47] VITALS: BP 196/97; RESP 18; TEMP 98
[2020-07-16] MEDS: allopurinoL 100 MG TAB PO SCH (08:47)
[2020-07-16] MEDS: ASPIRIN 81 MG PO SCH (08:47)
[2020-07-16] MEDS: HEPARIN SODIUM,PORCINE 5,000 UNIT/ML 1 ML VIAL SQ SCH (08:47)
[2020-07-16] MEDS: methylPREDNISolone SOD SUCCI 40 MG/ML 1 ML VIAL IV SCH (08:47)
[2020-07-16] MEDS: PANTOPRAZOLE 40 MG TABLET PO SCH (08:47)
[2020-07-16] MEDS: TAMSULOSIN 0.4 MG CAP.ER.24H PO SCH (08:47)
[2020-07-16] MEDS: MONTELUKAST 10 MG TAB PO SCH (08:47)
[2020-07-16] MEDS: FINASTERIDE 5 MG TAB PO SCH (08:48)
[2020-07-16] MEDS: SERTRALINE 100 MG TAB PO SCH (08:48)
[2020-07-16] MEDS: buPROPion XL 150 MG TAB.ER.24H PO SCH (08:48)
[2020-07-16 11:25] VITALS: PULSE 72
--- NOTE | 2020-07-16 12:02 | P.PN ---
Subjective Progress Note Date: 07/15/20 Principal diagnosis: Left lower lobe pneumonia Acute COPD exacerbation Purulent tracheobronchitis Atypical chest pain Morbid obesity Sleep disorder breathing and sleep apnea Mood disorder depression Chronic pain syndrome Chronic back pain 07/15/2020, patient seen eval examined during the rounds respiratory status slightly better cough congestion is improving, purulent secretions are still present however patient feels better compared to yesterday This is a 69-year-old male with end-stage lung disease oxygen dependent and prednisone dependent and nebulizer dependent, patient came into the hospital with cough congestion shortness of breath which has been progressive started 2 days ago sputum has been yellowish in color with those problem came into the hospital chest x-ray showed developing left lower lobe infiltrate, Objective - Vital Signs Vital signs: Vital Signs Temp 97.4 F L 07/15/20 15:00 Pulse 70 07/15/20 15:00 Resp 16 07/15/20 15:00 BP 156/75 07/15/20 15:00 Pulse Ox 96 07/15/20 15:00 Intake & Output 07/14/20 07/15/20 07/15/20 18:59 06:59 18:59 Intake Total 625 350 Output Total 1477 Balance 625 -1477 350 Intake: Intake, IV Titration 625 50 Amount Sodium Chloride 0.9% 1, 525 000 ml @ 75 mls/hr IV . [id number] [facility] Rx#:[id number] cefTRIAXone 1 gm In 100 Sodium Chloride 0.9% 50 ml @ 100 mls/hr IVPB Q24HR [facility] Rx#:[id number] cefTRIAXone 1 gm In 50 Sodium Chloride 0.9% 50 ml @ 100 mls/hr IVPB Q24HR [facility] Rx#:[id number] Oral 300 Output: Urine 1477 Other: Voiding Method Urinal Urinal # Voids 2 2 2 # Bowel Movements 1 1 - Exam - Constitutional General appearance: disheveled, morbidly obese - EENT Eyes: abnormal pupil, EOMI, PERRLA Ears: bilateral: normal - Neck Carotids: bilateral: upstroke normal - Respiratory Respiratory: bilateral: diminished - Cardiovascular Rhythm: regular Heart sounds: normal: S1, S2 - Gastrointestinal General gastrointestinal: normal bowel sounds, soft - Integumentary Integumentary: normal turgor - Neurologic Neurologic: CNII-XII intact - Musculoskeletal Musculoskeletal: gait normal, generalized weakness, strength equal bilaterally - Psychiatric Psychiatric: A&O x's 3, appropriate affect, intact judgment & insight - Labs CBC & Chem 7: 07/15/20 08:29 07/15/20 08:29 Labs: Abnormal Lab Results - Last 24 Hours (Table) 07/15/20 07/15/20 Range/Units 08:29 08:29 RBC 3.90 L (4.30-5.90) m/uL Hgb 11.8 L (13.0-17.5) gm/dL Hct 35.4 L (39.0-53.0) % Plt Count 148 L (150-450) k/uL Lymphocytes # 0.7 L (1.0-4.8) k/uL Chloride 108 H (98-107) mmol/L Glucose 123 H (74-99) mg/dL Microbiology - Last 24 Hours (Table) 07/13/20 21:48 Blood Culture - Preliminary Blood No Growth after 24 hours Assessment and Plan Assessment: Left lower lobe pneumonia Acute COPD exacerbation Purulent tracheobronchitis Atypical chest pain Morbid obesity Sleep disorder breathing and sleep apnea Mood disorder depression Chronic pain syndrome Chronic back pain Plan: IV antibiotics Breathing treatments IV steroids Supplemental oxygen Deep breathing exercise incentive spirometry Patient educated and consult about sleep disorder breathing and sleep apnea patient continued to decline Sleep study and use of CPAP Time with Patient: Greater than 30
--- NOTE | 2020-07-16 12:04 | P.PN ---
Subjective Progress Note Date: 07/16/20 Principal diagnosis: Left lower lobe pneumonia Acute COPD exacerbation Purulent tracheobronchitis Atypical chest pain Morbid obesity Sleep disorder breathing and sleep apnea Mood disorder depression Chronic pain syndrome Chronic back pain 07/16/2020, patient seen eval examined during the rounds labs reviewed medications reviewed care plan discussed, denies any chest pain denies any sputum production now, cough congestion improved patient wishes to go home, remains afebrile oxygen saturation 94% 2 L, blood pressure slightly up about just taking his medications including pain medicine 07/15/2020, patient seen eval examined during the rounds respiratory status slightly better cough congestion is improving, purulent secretions are still present however patient feels better compared to yesterday This is a 69-year-old male with end-stage lung disease oxygen dependent and prednisone dependent and nebulizer dependent, patient came into the hospital with cough congestion shortness of breath which has been progressive started 2 days ago sputum has been yellowish in color with those problem came into the hospital chest x-ray showed developing left lower lobe infiltrate, Objective - Vital Signs Vital signs: Vital Signs Temp 98 F 07/16/20 08:45 Pulse 72 07/16/20 11:24 Resp 18 07/16/20 08:52 BP 196/97 07/16/20 08:45 Pulse Ox 94 L 07/16/20 08:45 Intake & Output 07/15/20 07/16/20 07/16/20 18:59 06:59 18:59 Intake Total 350 240 Output Total 2500 Balance 350 -2260 Intake: Intake, IV Titration 50 Amount cefTRIAXone 1 gm In 50 Sodium Chloride 0.9% 50 ml @ 100 mls/hr IVPB Q24HR [facility] Rx#:[id number] Oral 300 240 Output: Urine 2500 Other: Voiding Method Urinal Urinal Urinal # Voids 2 2 2 # Bowel Movements 1 - Exam - Constitutional General appearance: disheveled, morbidly obese - EENT Eyes: abnormal pupil, EOMI, PERRLA Ears: bilateral: normal - Neck Carotids: bilateral: upstroke normal - Respiratory Respiratory: bilateral: diminished - Cardiovascular Rhythm: regular Heart sounds: normal: S1, S2 - Gastrointestinal General gastrointestinal: normal bowel sounds, soft - Integumentary Integumentary: normal turgor - Neurologic Neurologic: CNII-XII intact - Musculoskeletal Musculoskeletal: gait normal, generalized weakness, strength equal bilaterally - Psychiatric Psychiatric: A&O x's 3, appropriate affect, intact judgment & insight - Labs CBC & Chem 7: 07/15/20 08:29 07/15/20 08:29 Labs: Microbiology - Last 24 Hours (Table) 07/13/20 21:48 Blood Culture - Preliminary Blood No Growth after 48 hours Assessment and Plan Assessment: Left lower lobe pneumonia Acute COPD exacerbation Purulent tracheobronchitis Atypical chest pain Morbid obesity Sleep disorder breathing and sleep apnea Mood disorder depression Chronic pain syndrome Chronic back pain Plan: IV antibiotics, can be switched to oral Breathing treatments IV steroids, can be switched to oral Supplemental oxygen Deep breathing exercise incentive spirometry, can be discharged home follow up as a scheduled Patient educated and consult about sleep disorder breathing and sleep apnea patient continued to decline Sleep study and use of CPAP Time with Patient: Greater than 30
[2020-07-16] MEDS ORDERED: METOPROLOL SUCCINATE (ER) 25 MG TAB.ER.24H PO SCH (13:00)
[2020-07-16] MEDS ORDERED: hydrALAZINE HCL 25 MG TAB PO SCH (13:00)
[2020-07-16] MEDS ORDERED: amLODIPine 5 MG TAB PO SCH (13:00)
== END 2020-07-16 14:46 | disposition home or self-care (01) | DRG 194 ==
LOC: EC 21:06 → 1SOBS 23:44 → OBSVTOIN 07-16 10:08 → UNDODISOB 07-16 14:46
PROVIDERS: ADMIT Hospitalist; ATTEND Hospitalist
DX: J18.9 Pneumonia, unspecified organism (principal); J44.0 Chronic obstructive pulmonary disease with (acute) lower respiratory infection; J44.1 Chronic obstructive pulmonary disease with (acute) exacerbation; N17.9 Acute kidney failure, unspecified; F31.9 Bipolar disorder, unspecified; E66.01 Morbid (severe) obesity due to excess calories; Z68.31 Body mass index [BMI] 31.0-31.9, adult; Z20.828 Contact with and (suspected) exposure to other viral communicable diseases; E86.0 Dehydration; I45.10 Unspecified right bundle-branch block; I10 Essential (primary) hypertension; G47.33 Obstructive sleep apnea (adult) (pediatric); T44.7X5A Adverse effect of beta-adrenoreceptor antagonists, initial encounter; R00.1 Bradycardia, unspecified; G89.4 Chronic pain syndrome; K21.9 Gastro-esophageal reflux disease without esophagitis; M19.90 Unspecified osteoarthritis, unspecified site; M54.2 Cervicalgia; F41.0 Panic disorder [episodic paroxysmal anxiety]; Z99.81 Dependence on supplemental oxygen; M54.9 Dorsalgia, unspecified; Z79.51 Long term (current) use of inhaled steroids; Z79.2 Long term (current) use of antibiotics; Z79.899 Other long term (current) drug therapy; Z87.891 Personal history of nicotine dependence; Z87.01 Personal history of pneumonia (recurrent); Z90.89 Acquired absence of other organs; Z90.49 Acquired absence of other specified parts of digestive tract; Z87.19 Personal history of other diseases of the digestive system; Z87.09 Personal history of other diseases of the respiratory system; Z86.79 Personal history of other diseases of the circulatory system; Z98.890 Other specified postprocedural states; Z91.010 Allergy to peanuts; Z88.8 Allergy status to other drugs, medicaments and biological substances; Z91.048 Other nonmedicinal substance allergy status; Z82.5 Family history of asthma and other chronic lower respiratory diseases; Z82.3 Family history of stroke
CPT/HCPCS: 36415; 71045; 80048; 80053; 80061; 82728; 83605; 83615; 83735; 83880; 84145; 84484; 85025; 85379; 85610; 85730; 86140; 87040; 87635; 93005; 94640; 96360; 99285

== ENCOUNTER 2020-07-27 07:14 | Inpatient (IN) | payer MEDICARE, OTHER ==
[2020-07-27] MEDS ORDERED: methylPREDNISolone SOD SUCCI 125 MG/2 ML VIAL IV STA (07:31)
[2020-07-27] MEDS ORDERED: IPRATROPIUM-ALBUTEROL 3 ML NEB INHALATION STA ×2 (07:34→08:37)
[2020-07-27] MEDS ORDERED: ALBUTEROL HFA INHALER INHALATION STA (07:47)
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
[2020-07-27 08:00] LABS: Basophils % (A) 0 %; Eosinophils # (A) 0.8 k/uL (0-0.7); Eosinophils % (A) 6 %; HCT 38.6 % (39.0-53.0); HGB 12.6 gm/dL (13.0-17.5); Lymphocytes # (A) 1.2 k/uL (1.0-4.8); Lymphocytes % (A) 9 %; MCH 30.1 pg (25.0-35.0); MCHC 32.5 g/dL (31.0-37.0); MCV 92.5 fL (80.0-100.0); Mean Platelet Volume 6.7; Monocytes # (A) 0.2 k/uL (0-1.0); Monocytes % (A) 2 %; Neutrophils # (A) 10.9 k/uL (1.3-7.7); Neutrophils % (A) 83 %; Platelet Count 177 k/uL (150-450); RBC 4.18 m/uL (4.30-5.90); RDW 14.6 % (11.5-15.5); WBC 13.2 k/uL (3.8-10.6)
--- NOTE | 2020-07-27 08:10 | XR ---
EXAMINATION TYPE: XR chest 1V portable DATE OF EXAM: 07/27/2020 Comparison: 07/13/2020 Clinical History: 64-year-old male cough Findings: Heart borderline to mildly enlarged. New extensive consolidation throughout the right lung. Left lung and pleural space are relatively clear. Impression: New extensive consolidation throughout the right lung. Correlate for extensive right-sided pneumonia.
[2020-07-27 08:18] LABS: INR 0.9 (<1.2); Prothrombin Time 9.8 sec (9.0-12.0)
[2020-07-27 08:21] LABS: Albumin 3.3 g/dL (3.5-5.0); Calcium 8.3 mg/dL (8.4-10.2); Magnesium 1.7 mg/dL (1.6-2.3); Potassium 3.6 mmol/L (3.5-5.1); Total Bilirubin 0.5 mg/dL (0.2-1.3); Total Protein 5.3 g/dL (6.3-8.2)
[2020-07-27 08:24] LABS: Partial Thromboplastin Time 19.3 sec (22.0-30.0)
[2020-07-27] MEDS ORDERED: PNEUMONIA PROTOCOL UTILIZED 1 EACH MISC PO PRN (08:24)
[2020-07-27] MEDS ORDERED: ACETAMINOPHEN TAB 325 MG TAB PO PRN (08:24)
[2020-07-27] MEDS ORDERED: LEVOFLOXACIN 750MG-D5W PMX 750 MG in DEXTROSE/WATER 1 150ML.BAG IVPB STA (08:24)
[2020-07-27] MEDS ORDERED: SODIUM CHLORIDE 0.9% 1,000 ML IV STA (08:39)
[2020-07-27] MEDS: PIPERACILLIN-TAZOBACTAM 3.375 GM in SODIUM CHLORIDE 0.9% 100 ML IVPB STA (08:46)
[2020-07-27 08:47] LABS: C Reactive Protein 20.4 mg/L (<10.0)
[2020-07-27] MEDS ORDERED: MORPHINE SULFATE 4 MG/ML SYRINGE IVP STA (09:06)
[2020-07-27] MEDS: IPRATROPIUM-ALBUTEROL 3 ML NEB INHALATION SCH ×3 (11:51→20:12)
[2020-07-27] MEDS ORDERED: MORPHINE SULFATE 2 MG/ML SYRINGE IVP STA (12:48)
[2020-07-27] MEDS: HEPARIN SODIUM,PORCINE 5,000 UNIT/ML 1 ML VIAL SQ SCH ×2 (15:09→21:13)
[2020-07-27] MEDS: PIPERACILLIN-TAZOBACTAM 3.375 GM in SODIUM CHLORIDE 0.9% 100 ML IVPB SCH (15:10)
[2020-07-27] MEDS: oxyCODONE-APAP 10-325MG 1 EACH TAB PO PRN ×2 (15:10→21:06)
[2020-07-27] MEDS: buPROPion XL 150 MG TAB.ER.24H PO SCH (21:06)
[2020-07-27] MEDS: hydrALAZINE HCL 25 MG TAB PO SCH (21:07)
[2020-07-27] MEDS: FAMOTIDINE 20 MG/2 ML VIAL IV SCH (21:07)
[2020-07-28] MEDS: PIPERACILLIN-TAZOBACTAM 3.375 GM in SODIUM CHLORIDE 0.9% 100 ML IVPB SCH ×3 (00:12→14:55)
[2020-07-28] MEDS: ALBUTEROL NEBULIZED 2.5 MG/3 ML INHALATION PRN (01:35)
[2020-07-28] MEDS: oxyCODONE-APAP 10-325MG 1 EACH TAB PO PRN ×4 (02:55→21:17)
[2020-07-28 06:59] LABS: Basophils % (A) 0 %; Eosinophils % (A) 0 %; HCT 31.9 % (39.0-53.0); HGB 10.5 gm/dL (13.0-17.5); Lymphocytes # (A) 0.7 k/uL (1.0-4.8); Lymphocytes % (A) 4 %; MCH 30.5 pg (25.0-35.0); MCHC 32.8 g/dL (31.0-37.0); MCV 92.8 fL (80.0-100.0); Monocytes # (A) 0.7 k/uL (0-1.0); Monocytes % (A) 5 %; Neutrophils # (A) 13.2 k/uL (1.3-7.7); Neutrophils % (A) 90 %; Platelet Count 131 k/uL (150-450); RBC 3.43 m/uL (4.30-5.90); RDW 14.7 % (11.5-15.5); WBC 14.7 k/uL (3.8-10.6)
[2020-07-28] MEDS: IPRATROPIUM-ALBUTEROL 3 ML NEB INHALATION SCH ×4 (07:10→19:40)
[2020-07-28] MEDS: SYMBICORT 80-4.5 MCG INHALER INHALATION SCH ×2 (07:16→19:40)
[2020-07-28] MEDS: MONTELUKAST 10 MG TAB PO SCH (07:49)
[2020-07-28] MEDS: buPROPion XL 150 MG TAB.ER.24H PO SCH ×2 (07:49→21:21)
[2020-07-28] MEDS: TAMSULOSIN 0.4 MG CAP.ER.24H PO SCH (07:49)
[2020-07-28] MEDS: FINASTERIDE 5 MG TAB PO SCH (07:49)
[2020-07-28] MEDS: SERTRALINE 100 MG TAB PO SCH (07:49)
[2020-07-28] MEDS: METOPROLOL SUCCINATE (ER) 25 MG TAB.ER.24H PO SCH (07:50)
[2020-07-28] MEDS: allopurinoL 100 MG TAB PO SCH (07:50)
[2020-07-28] MEDS: amLODIPine 5 MG TAB PO SCH (07:50)
[2020-07-28] MEDS: hydrALAZINE HCL 25 MG TAB PO SCH ×2 (07:50→21:17)
[2020-07-28] MEDS: HEPARIN SODIUM,PORCINE 5,000 UNIT/ML 1 ML VIAL SQ SCH ×2 (07:51→21:17)
[2020-07-28] MEDS: FAMOTIDINE 20 MG/2 ML VIAL IV SCH ×2 (07:51→21:18)
--- NOTE | 2020-07-28 08:59 | XR ---
EXAMINATION TYPE: XR chest 2V DATE OF EXAM: 07/28/2020 COMPARISON: 07/27/2020 HISTORY: 64-year-old male follow-up pneumonia TECHNIQUE: PA and lateral views FINDINGS: Heart upper limits of normal in size. Patchy consolidation throughout the right lung has become less confluent as compared to prior exam. Left lung and pleural space are clear. IMPRESSION: Persistent but improving airspace disease throughout the right lung.
[2020-07-28 09:47] LABS: African American GFR (CKD) 92.4 (60.0-200.0); Anion Gap 5.1 mmol/L (4.00-12.00); Calcium 8.4 mg/dL (8.7-10.3); Carbon Dioxide 28.9 mmol/L (21.6-31.8); Non-African American GFR(CKD) 79.7 (60.0-200.0)
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
--- NOTE | 2020-07-28 12:34 | P.PN ---
Subjective 63-year-old male with past history of COPD and degenerative disc disease, eosinophilic asthma, chronic pain and hypertension and obstructive sleep apnea with multiple admissions previously . He was recently discharged from this hospital about 10 days ago 07/16 for left lower lobe pneumonia and COPD Presents this time because of shortness of breath. He was concerned he might need home oxygen as well. On admission he was saturating 89% on room air, currently saturating 96% on 5-6 L via nasal cannula Labs showed leukocytosis of 13.2 K, INR is normal. Rest of the CBC is unremarkable.creatinine is elevated at 1.3 Lactic acid is elevated at 2.1, came back to normal at 1.2. Problemcalcitonin is slightly elevated at 0.20. Chest x-rays show new extensive consultation throughout the right flank correlated for extensive right-sided pneumonia In the emergency room he was started on Levaquin and Zosyn and Solu-Medrol. Also I got IV fluids about a liter of normal saline and bronchodilator. maps was checked and he is on [place] [address] 25 every 6 hours felt on 07/0907/28/2020 Today patient is still dyspnea with no significant worsening or improvement, may be slight improvement only. He is saturating 98% on 4 L The case. Neurological symptoms. His lab leukocytosis of 14.7 K. BMP is normal with creatinine back to normal at 1.0. His antibiotics was changed to Zosyn yesterday Pulmonary team were consulted Review of Systems CONSTITUTIONAL: No fever, no malaise, no fatigue. HEENT: No recent visual problems or hearing problems. Denied any sore throat. CARDIOVASCULAR: No orthopnea, PND, no palpitations, no syncope. PULMONARY: No chest wall tenderness, no hemoptysis. GASTROINTESTINAL: No diarrhea, no nausea, no vomiting, no abdominal pain. Normoactive bowel sounds. NEUROLOGICAL: No headaches, no weakness, no numbness. HEMATOLOGICAL: Denies any bleeding or petechiae. Active Medications Generic Name Dose Route Start Last Admin Trade Name Freq PRN Reason Stop Dose Admin Acetaminophen 650 mg 07/27/20 08:24 Acetaminophen Tab 325 Mg Tab PO Q4HR PRN Fever>101 Albuterol Sulfate 2.5 mg 07/27/20 12:30 07/28/20 01:35 Albuterol Nebulized 2.5 Mg/3 Ml INHALATION 2.5 mg RT-QID PRN Administration Shortness Of Breath Albuterol/Ipratropium 3 ml 07/27/20 12:00 07/28/20 10:57 Ipratropium-Albuterol 3 Ml Neb INHALATION 3 ml RT-QID MAINE Administration Allopurinol 200 mg 07/28/20 09:00 07/28/20 07:50 Allopurinol 100 Mg Tab PO 200 mg DAILY MAINE Administration Amlodipine Besylate 5 mg 07/28/20 09:00 07/28/20 07:50 Amlodipine 5 Mg Tab PO 5 mg DAILY MAINE Administration Budesonide/Formoterol Fumarate 2 puff 07/28/20 08:00 07/28/20 07:16 Symbicort 80-4.5 Mcg Inhaler INHALATION 2 puff RT-BID MAINE Administration Bupropion HCl 150 mg 07/27/20 21:00 07/28/20 07:49 Bupropion Xl 150 Mg Tab.Er.24h PO 150 mg BID MAINE Administration Famotidine 20 mg 07/27/20 21:00 07/28/20 07:51 Famotidine 20 Mg/2 Ml Vial IV 20 mg Q12HR MAINE Administration Finasteride 5 mg 07/28/20 09:00 07/28/20 07:49 Finasteride 5 Mg Tab PO 5 mg DAILY MAINE Administration Heparin Sodium (Porcine) 5,000 unit 07/27/20 12:30 07/28/20 07:51 Heparin Sodium,Porcine 5,000 Unit/Ml 1 Ml Vial SQ 5,000 unit Q12HR MAINE Administration Hydralazine HCl 25 mg 07/27/20 21:00 07/28/20 07:50 Hydralazine Hcl 25 Mg Tab PO 25 mg BID MAINE Administration Piperacillin Sod/Tazobactam 100 mls @ 25 mls/hr 07/27/20 16:00 07/28/20 07:48 Sod 3.375 gm/ Sodium Chloride IVPB 25 mls/hr Q8HR MAINE Administration Metoprolol Succinate 25 mg 07/28/20 09:00 07/28/20 07:50 Metoprolol Succinate (Er) 25 Mg Tab.Er.24h PO 25 mg DAILY MAINE Administration Miscellaneous Information 1 each 07/27/20 08:24 Pneumonia Protocol Utilized 1 Each Misc PO ONCE PRN Per Protocol Montelukast Sodium 10 mg 07/28/20 09:00 07/28/20 07:49 Montelukast 10 Mg Tab PO 10 mg DAILY MAINE Administration Oxycodone/Acetaminophen 1 each 07/27/20 12:33 07/28/20 09:06 Oxycodone-Apap 10-325mg 1 Each Tab PO 1 each Q6H PRN Administration Pain Sertraline HCl 150 mg 07/28/20 09:00 07/28/20 07:49 Sertraline 100 Mg Tab PO 150 mg DAILY MAINE Administration Tamsulosin HCl 0.4 mg 07/28/20 09:00 07/28/20 07:49 Tamsulosin 0.4 Mg Cap.Er.24h PO 0.4 mg DAILY MAINE Administration Objective - Vital Signs Vital signs: Vital Signs Temp 98.4 F 07/28/20 07:00 Pulse 76 07/28/20 11:13 Resp 16 07/28/20 07:05 BP 165/77 07/28/20 07:00 Pulse Ox 98 07/28/20 07:00 Intake & Output 07/27/20 07/28/20 07/28/20 18:59 06:59 18:59 Intake Total 650 Output Total 1700 300 Balance 650 -1700 -300 Weight 97.522 kg Intake: Intake, IV Titration 250 Amount Levofloxacin 750Mg-D5w 150 Pmx 750 mg In Dextrose/ Water 1 150ml.bag @ 100 mls/hr IVPB ONCE STA Rx#: [id number] Piperacillin-Tazobactam 3 100 .375 gm In Sodium Chloride 0.9% 100 ml @ 25 mls/hr IVPB Q8HR MAINE Rx# :[id number] Oral 400 Output: Urine 1700 300 Other: Voiding Method Toilet Toilet Toilet Urinal Urinal Urinal - Exam GENERAL: The patient is alert and oriented x3, not in any acute distress. Well developed, well nourished. HEENT: Pupils are round and equally reacting to light. EOMI. No scleral icterus. No conjunctival pallor. Normocephalic, atraumatic. No pharyngeal erythema. No thyromegaly. CARDIOVASCULAR: S1 and S2 present. No murmurs, rubs, or gallops. PULMONARY: Chest is clear to auscultation, no wheezing or crackles. Decreased breath sounds on the right side ABDOMEN: Soft, nontender, nondistended, normoactive bowel sounds. No palpable organomegaly. MUSCULOSKELETAL: No joint swelling or deformity. EXTREMITIES: No cyanosis, clubbing, or pedal edema. NEUROLOGICAL: Gross neurological examination did not reveal any focal deficits. SKIN: No rashes. No petechiae - Labs CBC & Chem 7: 07/28/20 05:28 07/28/20 05:28 Labs: Abnormal Lab Results - Last 24 Hours (Table) 07/28/20 07/28/20 Range/Units 05:28 05:28 WBC 14.7 H (3.8-10.6) k/uL RBC 3.43 L (4.30-5.90) m/uL Hgb 10.5 L (13.0-17.5) gm/dL Hct 31.9 L (39.0-53.0) % Plt Count 131 L (150-450) k/uL Neutrophils # 13.2 H (1.3-7.7) k/uL Lymphocytes # 0.7 L (1.0-4.8) k/uL BUN/Creatinine Ratio 22.00 H (12.00-20.00) Ratio Calcium 8.4 L (8.7-10.3) mg/dL Microbiology - Last 24 Hours (Table) 07/27/20 08:33 Blood Culture - Preliminary Blood No Growth after 24 hours Assessment and Plan Assessment: Extensive right side lung pneumonia, healthcare associated pneumonia Acute recurrent COPD exacerbation with purulent tracheobronchitis Acute hypoxic respiratory failure Elevated lactic acid, came back to normal acute kidney injury . Creatinine is back to normal Drug-seeking behavior, patient is known to me from previous admission Chronic pain syndrome Obstructive sleep apnea on CPAP at home GERD Hypertension Osteoarthritis History of atrial flutter. Anxiety/depression, bipolar disorder and panic disorder Claustrophobia Previous history of smoking History of heavy alcohol abuse Marijuana use Plan: This is a pleasant 64 years old male who presents with pneumonia and COPD. Continue with antibiotics with Zosyn, follow-up sputum culture. Pulmonary consult, bronchodilator on oxygen as needed. Gentle hydration. Patient is asking for more pain medication, mainly narcotics, today however it wasn't provided for him as a risks more than benefits Labs and medication were reviewed.. Continue same treatment. Continue with symptomatic treatment. Resume home medication. Monitor lytes and vitals. DVT and GI prophylaxis. Further recommendations depends on the clinical course of the patient DVT prophylaxis: Subcutaneous heparin GI Prophylaxis: Pepcid PT/OT: Pending Prognosis is guarded
[2020-07-29] MEDS: PIPERACILLIN-TAZOBACTAM 3.375 GM in SODIUM CHLORIDE 0.9% 100 ML IVPB SCH ×3 (00:21→16:39)
[2020-07-29] MEDS: oxyCODONE-APAP 10-325MG 1 EACH TAB PO PRN ×4 (02:57→19:59)
[2020-07-29] MEDS: ALBUTEROL NEBULIZED 2.5 MG/3 ML INHALATION PRN (04:06)
[2020-07-29 06:26] LABS: Basophils % (A) 0 %; Eosinophils # (A) 0.5 k/uL (0-0.7); Eosinophils % (A) 5 %; HCT 31.6 % (39.0-53.0); HGB 10.3 gm/dL (13.0-17.5); Lymphocytes % (A) 9 %; MCH 29.9 pg (25.0-35.0); MCHC 32.5 g/dL (31.0-37.0); Monocytes # (A) 0.4 k/uL (0-1.0); Monocytes % (A) 4 %; Neutrophils # (A) 8.6 k/uL (1.3-7.7); Neutrophils % (A) 81 %; Platelet Count 135 k/uL (150-450); RBC 3.43 m/uL (4.30-5.90); RDW 14.8 % (11.5-15.5); WBC 10.6 k/uL (3.8-10.6)
[2020-07-29] MEDS: SYMBICORT 80-4.5 MCG INHALER INHALATION SCH ×2 (07:40→20:09)
[2020-07-29] MEDS: IPRATROPIUM-ALBUTEROL 3 ML NEB INHALATION SCH ×4 (07:40→20:08)
[2020-07-29] MEDS ORDERED: amLODIPine 5 MG TAB PO STA (08:22)
--- NOTE | 2020-07-29 08:29 | XR ---
EXAMINATION TYPE: XR chest 1V DATE OF EXAM: 07/29/2020 COMPARISON: 07/28/2020 HISTORY: 64-year-old male with pneumonia TECHNIQUE: Single frontal view of the chest is obtained. FINDINGS: Heart borderline enlarged. Patchy and confluent consolidation throughout the right lung persists with only minimal improvement. Some strandy left basilar atelectasis. No pleural effusion. IMPRESSION: Consolidation throughout the right lung shows minimal improvement.
[2020-07-29] MEDS: SERTRALINE 100 MG TAB PO SCH (08:50)
[2020-07-29] MEDS: buPROPion XL 150 MG TAB.ER.24H PO SCH ×2 (08:50→20:06)
[2020-07-29] MEDS: FAMOTIDINE 20 MG/2 ML VIAL IV SCH (08:50)
[2020-07-29] MEDS: MONTELUKAST 10 MG TAB PO SCH (08:51)
[2020-07-29] MEDS: METOPROLOL SUCCINATE (ER) 25 MG TAB.ER.24H PO SCH (08:51)
[2020-07-29] MEDS: FINASTERIDE 5 MG TAB PO SCH (08:51)
[2020-07-29] MEDS: hydrALAZINE HCL 25 MG TAB PO SCH ×2 (08:51→20:01)
[2020-07-29] MEDS: allopurinoL 100 MG TAB PO SCH (08:51)
[2020-07-29] MEDS: HEPARIN SODIUM,PORCINE 5,000 UNIT/ML 1 ML VIAL SQ SCH ×2 (08:52→20:01)
[2020-07-29] MEDS: TAMSULOSIN 0.4 MG CAP.ER.24H PO SCH (08:56)
[2020-07-29 09:50] LABS: Anion Gap 2.8 mmol/L (4.00-12.00); BUN/Creat Ratio 21.11 Ratio (12.00-20.00); Carbon Dioxide 31.2 mmol/L (21.6-31.8); Non-African American GFR(CKD) 90.6 (60.0-200.0)
--- NOTE | 2020-07-29 11:13 | P.PN ---
Subjective 63-year-old male with past history of COPD and degenerative disc disease, eosinophilic asthma, chronic pain and hypertension and obstructive sleep apnea with multiple admissions previously . He was recently discharged from this hospital about 10 days ago 07/16 for left lower lobe pneumonia and COPD Presents this time because of shortness of breath. He was concerned he might need home oxygen as well. On admission he was saturating 89% on room air, currently saturating 96% on 5-6 L via nasal cannula Labs showed leukocytosis of 13.2 K, INR is normal. Rest of the CBC is unremarkable.creatinine is elevated at 1.3 Lactic acid is elevated at 2.1, came back to normal at 1.2. Problemcalcitonin is slightly elevated at 0.20. Chest x-rays show new extensive consultation throughout the right flank correlated for extensive right-sided pneumonia In the emergency room he was started on Levaquin and Zosyn and Solu-Medrol. Also I got IV fluids about a liter of normal saline and bronchodilator. maps was checked and he is on [place] [address] 25 every 6 hours felt on 07/0907/28/2020 Today patient is still dyspnea with no significant worsening or improvement, may be slight improvement only. He is saturating 98% on 4 L The case. Neurological symptoms. His lab leukocytosis of 14.7 K. BMP is normal with creatinine back to normal at 1.0. His antibiotics was changed to Zosyn yesterday Pulmonary team were consulted 07/29/2020 This is a pleasant 64 years old male who was recently discharged from this hospital about 10 days ago 07/16 for left lower lobe pneumonia and COPD. Presents with right-sided pneumonia. Today he feels a little bit worse although he still on the same level of oxygen saturation at 5 L oxygen similar to yesterday. And his breathing at the same rate. His chest x-ray actually showed minimal improvement. His WBCs back to normal today at 10.6 K. BMP is stable. Follow-up examination has some wheezing, possibly has acute exacerbation of COPD so start him today on inhaled and systemic steroids. he Remains on Zosyn. Review of Systems CONSTITUTIONAL: No fever, no malaise, no fatigue. HEENT: No recent visual problems or hearing problems. Denied any sore throat. CARDIOVASCULAR: No orthopnea, PND, no palpitations, no syncope. PULMONARY: No chest wall tenderness, no hemoptysis. GASTROINTESTINAL: No diarrhea, no nausea, no vomiting, no abdominal pain. Normoactive bowel sounds. NEUROLOGICAL: No headaches, no weakness, no numbness. HEMATOLOGICAL: Denies any bleeding or petechiae. Active Medications Generic Name Dose Route Start Last Admin Trade Name Freq PRN Reason Stop Dose Admin Acetaminophen 650 mg 07/27/20 08:24 Acetaminophen Tab 325 Mg Tab PO Q4HR PRN Fever>101 Albuterol Sulfate 2.5 mg 07/27/20 12:30 07/29/20 04:06 Albuterol Nebulized 2.5 Mg/3 Ml INHALATION 2.5 mg RT-QID PRN Administration Shortness Of Breath Albuterol/Ipratropium 3 ml 07/27/20 12:00 07/29/20 07:40 Ipratropium-Albuterol 3 Ml Neb INHALATION 3 ml RT-QID MAINE Administration Allopurinol 200 mg 07/28/20 09:00 07/29/20 08:51 Allopurinol 100 Mg Tab PO 200 mg DAILY MAINE Administration Amlodipine Besylate 5 mg 07/28/20 09:00 07/28/20 07:50 Amlodipine 5 Mg Tab PO 5 mg DAILY MAINE Administration Budesonide/Formoterol Fumarate 2 puff 07/28/20 08:00 07/29/20 07:40 Symbicort 80-4.5 Mcg Inhaler INHALATION 2 puff RT-BID MAINE Administration Bupropion HCl 150 mg 07/27/20 21:00 07/29/20 08:50 Bupropion Xl 150 Mg Tab.Er.24h PO 150 mg BID MAINE Administration Famotidine 20 mg 07/27/20 21:00 07/29/20 08:50 Famotidine 20 Mg/2 Ml Vial IV 20 mg Q12HR MAINE Administration Finasteride 5 mg 07/28/20 09:00 07/29/20 08:51 Finasteride 5 Mg Tab PO 5 mg DAILY MAINE Administration Heparin Sodium (Porcine) 5,000 unit 07/27/20 12:30 07/29/20 08:52 Heparin Sodium,Porcine 5,000 Unit/Ml 1 Ml Vial SQ 5,000 unit Q12HR MAINE Administration Hydralazine HCl 25 mg 07/27/20 21:00 07/29/20 08:51 Hydralazine Hcl 25 Mg Tab PO 25 mg BID MAINE Administration Piperacillin Sod/Tazobactam 100 mls @ 25 mls/hr 07/27/20 16:00 07/29/20 08:51 Sod 3.375 gm/ Sodium Chloride IVPB 25 mls/hr Q8HR MAINE Administration Metoprolol Succinate 25 mg 07/28/20 09:00 07/29/20 08:51 Metoprolol Succinate (Er) 25 Mg Tab.Er.24h PO 25 mg DAILY MAINE Administration Miscellaneous Information 1 each 07/27/20 08:24 Pneumonia Protocol Utilized 1 Each Misc PO ONCE PRN Per Protocol Montelukast Sodium 10 mg 07/28/20 09:00 07/29/20 08:51 Montelukast 10 Mg Tab PO 10 mg DAILY MAINE Administration Oxycodone/Acetaminophen 1 each 07/27/20 12:33 07/29/20 08:51 Oxycodone-Apap 10-325mg 1 Each Tab PO 1 each Q6H PRN Administration Pain Sertraline HCl 150 mg 07/28/20 09:00 07/29/20 08:50 Sertraline 100 Mg Tab PO 150 mg DAILY MAINE Administration Tamsulosin HCl 0.4 mg 07/28/20 09:00 07/29/20 08:56 Tamsulosin 0.4 Mg Cap.Er.24h PO 0.4 mg DAILY MAINE Administration Objective - Vital Signs Vital signs: Vital Signs Temp 99.8 F H 07/29/20 09:24 Pulse 76 07/29/20 09:24 Resp 24 07/29/20 09:24 BP 165/76 07/29/20 09:24 Pulse Ox 97 07/29/20 09:24 Intake & Output 07/28/20 07/29/20 07/29/20 18:59 06:59 18:59 Output Total 900 600 Balance -900 -600 Output: Urine 900 600 Other: Voiding Method Toilet Toilet Toilet Urinal Urinal Urinal - Exam GENERAL: The patient is alert and oriented x3, not in any acute distress. Well developed, well nourished. HEENT: Pupils are round and equally reacting to light. EOMI. No scleral icterus. No conjunctival pallor. Normocephalic, atraumatic. No pharyngeal erythema. No thyromegaly. CARDIOVASCULAR: S1 and S2 present. No murmurs, rubs, or gallops. PULMONARY: Chest is clear to auscultation, no wheezing or crackles. Decreased breath sounds on the right side ABDOMEN: Soft, nontender, nondistended, normoactive bowel sounds. No palpable organomegaly. MUSCULOSKELETAL: No joint swelling or deformity. EXTREMITIES: No cyanosis, clubbing, or pedal edema. NEUROLOGICAL: Gross neurological examination did not reveal any focal deficits. SKIN: No rashes. No petechiae - Labs CBC & Chem 7: 07/29/20 06:06 07/29/20 06:06 Labs: Abnormal Lab Results - Last 24 Hours (Table) 07/29/20 07/29/20 Range/Units 06:06 06:06 RBC 3.43 L (4.30-5.90) m/uL Hgb 10.3 L (13.0-17.5) gm/dL Hct 31.6 L (39.0-53.0) % Plt Count 135 L (150-450) k/uL Neutrophils # 8.6 H (1.3-7.7) k/uL Anion Gap 2.80 L (4.00-12.00) mmol/L BUN/Creatinine Ratio 21.11 H (12.00-20.00) Ratio Calcium 8.0 L (8.7-10.3) mg/dL Microbiology - Last 24 Hours (Table) 07/27/20 08:33 Blood Culture - Preliminary Blood No Growth after 48 hours Assessment and Plan Assessment: Extensive right side lung pneumonia, healthcare associated pneumonia Acute recurrent COPD exacerbation Acute hypoxic respiratory failure Elevated lactic acid, came back to normal acute kidney injury . Creatinine is back to normal Drug-seeking behavior, patient is known to me from previous admission Chronic pain syndrome Obstructive sleep apnea on CPAP at home GERD Hypertension Osteoarthritis History of atrial flutter. Anxiety/depression, bipolar disorder and panic disorder Claustrophobia Previous history of smoking History of heavy alcohol abuse Marijuana use Plan: This is a pleasant 64 years old male who presents with pneumonia and COPD. Continue with antibiotics with Zosyn, follow-up sputum culture. Pulmonary consult, bronchodilator on oxygen as needed. Start Solu-Medrol Patient is asking for more pain medication, mainly narcotics, today however it wasn't provided for him as a risks more than benefits Labs and medication were reviewed.. Continue same treatment. Continue with symptomatic treatment. Resume home medication. Monitor lytes and vitals. DVT and GI prophylaxis. Further recommendations depends on the clinical course of the patient DVT prophylaxis: Subcutaneous heparin GI Prophylaxis: Pepcid PT/OT: Pending Prognosis is guarded
[2020-07-29] MEDS: methylPREDNISolone SOD SUCCI 125 MG/2 ML VIAL IV SCH ×2 (14:05→19:58)
[2020-07-29] MEDS: amLODIPine 5 MG TAB PO SCH (15:49)
[2020-07-29] MEDS: FAMOTIDINE 20 MG TAB PO SCH (20:01)
[2020-07-30] MEDS: PIPERACILLIN-TAZOBACTAM 3.375 GM in SODIUM CHLORIDE 0.9% 100 ML IVPB SCH ×3 (00:47→17:06)
[2020-07-30] MEDS: oxyCODONE-APAP 10-325MG 1 EACH TAB PO PRN ×4 (01:53→20:03)
[2020-07-30] MEDS: methylPREDNISolone SOD SUCCI 125 MG/2 ML VIAL IV SCH ×3 (05:43→20:04)
[2020-07-30] MEDS: SERTRALINE 100 MG TAB PO SCH (07:58)
[2020-07-30] MEDS: allopurinoL 100 MG TAB PO SCH (07:59)
[2020-07-30] MEDS: HEPARIN SODIUM,PORCINE 5,000 UNIT/ML 1 ML VIAL SQ SCH ×2 (07:59→20:04)
[2020-07-30] MEDS: amLODIPine 5 MG TAB PO SCH (07:59)
[2020-07-30] MEDS: METOPROLOL SUCCINATE (ER) 25 MG TAB.ER.24H PO SCH (07:59)
[2020-07-30] MEDS: hydrALAZINE HCL 25 MG TAB PO SCH ×2 (08:00→20:03)
[2020-07-30] MEDS: MONTELUKAST 10 MG TAB PO SCH (08:00)
[2020-07-30] MEDS: FAMOTIDINE 20 MG TAB PO SCH ×2 (08:00→20:02)
[2020-07-30] MEDS: TAMSULOSIN 0.4 MG CAP.ER.24H PO SCH (08:00)
[2020-07-30] MEDS: FINASTERIDE 5 MG TAB PO SCH (08:00)
[2020-07-30] MEDS: SYMBICORT 80-4.5 MCG INHALER INHALATION SCH ×2 (08:30→21:20)
[2020-07-30] MEDS: IPRATROPIUM-ALBUTEROL 3 ML NEB INHALATION SCH ×4 (08:30→21:24)
[2020-07-30] MEDS: buPROPion XL 150 MG TAB.ER.24H PO SCH ×2 (09:54→20:10)
[2020-07-30 11:29] LABS: BUN/Creat Ratio 18.89 Ratio (12.00-20.00); Calcium 9.2 mg/dL (8.7-10.3); Non-African American GFR(CKD) 90.6 (60.0-200.0); Potassium 4.5 mmol/L (3.5-5.5)
[2020-07-30] MEDS: ALPRAZolam 0.25 MG TAB PO PRN ×2 (13:31→22:01)
[2020-07-30] MEDS: HYDROmorphone 0.5 MG/0.5 ML SYRINGE IVP PRN ×2 (14:44→22:00)
[2020-07-30] MEDS: PANTOPRAZOLE 40 MG TABLET PO SCH (14:45)
--- NOTE | 2020-07-30 15:20 | CT ---
EXAMINATION TYPE: CT chest wo con DATE OF EXAM: 07/30/2020 COMPARISON: Chest CT May 24, 2020 and older CTs. HISTORY: Shortness of breath and cough. CT DLP: 410.8 mGycm. Automated Exposure Control for Dose Reduction was Utilized. TECHNIQUE: CT scan of the thorax is performed without IV contrast. FINDINGS: LUNGS: From most recent CT there is now some dependent atelectasis and/or consolidation in the shaft tender ior left lung base otherwise marked interval improvement in the left lung with resolution of irregula r groundglass opacities throughout the left lung. Mild left basilar linear scarring and/or atelectasi s also noted. There are now areas of reticulation and irregular groundglass opacities throughout the right lung on current study with scattered [id number] linear scarring and/or atelectatic changes. Some right- sided volume loss is now present. Trace pleural fluid collection in the bases bilaterally. No pneumothorax seen bilaterally. MEDIASTINUM: Lack of IV contrast is noted to limit evaluation for mediastinal and especially hilar ad enopathy. There are no definitive greater than 1 cm hilar or mediastinal lymph nodes. Tiny pericardia l effusion is now seen. No cardiomegaly. Coronary artery calcification is redemonstrated. Main pulmon laquita artery measures 3.0 cm in diameter axial image 25. Persistent hiatal hernia containing mesenteric fat and benign lymph nodes. OTHER: Slight scoliotic curvature. IMPRESSION: Probable new atypical infection throughout the right lung with somewhat similar finding t o seen in left lung roughly 2 months earlier. Left lung infectious processes has completely resolved. Correlate clinically.
--- NOTE | 2020-07-30 15:47 | PN ---
PROGRESS NOTE This 64-year-old gentleman, admitted with significant pneumonia on the right-sided chest, was thought to have COVID pneumonia previously. Patient also had at least two elderly family members dying of COVID pneumonia and COVID recently. Dr. Granados is following the patient closely. The patient is extremely anxious. The possibility of interstitial pneumonia was also considered. A course of remdesivir was given during the last admission. The laboratory values currently are reviewed. White count was elevated to 14.7 at the time of admission. D-dimer was found to be 0.3. C difficile negative. Past medical history reviewed. REVIEW OF SYSTEMS: CARDIOVASCULAR SYSTEM: No angina, palpitations. RESPIRATORY SYSTEM: As mentioned earlier. GI: As mentioned earlier. : No dysuria or retention. NERVOUS SYSTEM: No numbness, weakness. CURRENT MEDICATIONS: Reviewed. They include Tylenol, Ventolin, DuoNeb, Zyloprim, Xanax, Norvasc, Symbicort, Wellbutrin, Pepcid, Proscar, heparin, Apresoline, Dilaudid, Toprol-XL, Solu-Medrol, Singulair, Percocet, Zosyn, Flomax. Doses are reviewed. PHYSICAL EXAMINATION: Patient is alert, oriented x3. Pulse 86, blood pressure 169/74, respiration 20, temperature 97.7, pulse ox 96% on 5 L. HEENT: Conjunctivae normal. NECK: No jugular venous distention. CARDIOVASCULAR SYSTEM: S1, S2 muffled. RESPIRATORY SYSTEM: Breath sounds diminished at the bases. Bilateral scattered rhonchi and crackles. Expiratory wheezing also present. ABDOMEN: Soft, non-tender. LEGS: No edema. No swelling. NERVOUS SYSTEM: No focal deficit. LABS: WBC 10.6, hemoglobin 10.3. BMP noted. C difficile is negative. ASSESSMENT: 1. Extensive right-sided pneumonia, possibly healthcare-associated pneumonia. 2. History of recent COVID pneumonia. 3. Chronic obstructive pulmonary disease, acute exacerbation, with acute hypoxic respiratory failure. 4. Anxiety state. 5. Elevated lactic acid, present on admission. 6. Acute kidney injury with acute renal failure. 7. Chronic pain syndrome. 8. Obstructive sleep apnea. 9. Gastroesophageal reflux disease. 10.Hypertension. 11.History of degenerative joint disease. 12.Atrial flutter. 13.History of anxiety, depression, bipolar, panic disorder. 14.Claustrophobia. 15.Previous history of nicotine dependence. 16.History of heavy alcohol abuse. 17.History of nicotine dependence. RECOMMENDATIONS AND DISCUSSION: In this 64-year-old gentleman who presented with multiple complex medical issues, at this time I would recommend continue the current medication, continue with symptomatic treatment. Since the D-dimer is negative, I would recommend a CT chest without any contrast to complete the workup. Otherwise, we will continue to monitor. The COVID-19 test was negative at this time. I recommend continuing with broad-spectrum IV antibiotics as well as IV steroids. Also monitor blood sugars closely. Once again, the prognosis is guarded. Will review the CT scan, as mentioned earlier. Further recommendations to follow. MMODL / IJN: [id number] /
[2020-07-30] MEDS: INSULIN ASPART (NovoLOG) 100 UNIT/ML VIAL SQ SCH (17:13)
[2020-07-31] MEDS: PIPERACILLIN-TAZOBACTAM 3.375 GM in SODIUM CHLORIDE 0.9% 100 ML IVPB SCH ×3 (00:43→16:32)
[2020-07-31] MEDS: INSULIN ASPART (NovoLOG) 100 UNIT/ML VIAL SQ SCH ×5 (00:48→20:34)
[2020-07-31 00:49] LABS: Glucose,Whole Blood 145 mg/dL (75-99)
[2020-07-31] MEDS: oxyCODONE-APAP 10-325MG 1 EACH TAB PO PRN ×4 (01:58→21:54)
[2020-07-31] MEDS: methylPREDNISolone SOD SUCCI 125 MG/2 ML VIAL IV SCH ×3 (04:34→19:22)
[2020-07-31 05:58] LABS: Basophils % (A) 0 %; Eosinophils % (A) 0 %; HCT 34.7 % (39.0-53.0); HGB 10.9 gm/dL (13.0-17.5); Lymphocytes # (A) 0.6 k/uL (1.0-4.8); Lymphocytes % (A) 5 %; MCH 29.4 pg (25.0-35.0); MCHC 31.6 g/dL (31.0-37.0); Monocytes # (A) 0.3 k/uL (0-1.0); Monocytes % (A) 3 %; Neutrophils # (A) 9.9 k/uL (1.3-7.7); Neutrophils % (A) 91 %; Platelet Count 164 k/uL (150-450); RBC 3.73 m/uL (4.30-5.90); RDW 14.6 % (11.5-15.5); WBC 10.8 k/uL (3.8-10.6)
[2020-07-31 07:01] LABS: Glucose,Whole Blood 122 mg/dL (75-99)
[2020-07-31] MEDS: FAMOTIDINE 20 MG TAB PO SCH (07:43)
[2020-07-31] MEDS: LORATADINE 10 MG TAB PO SCH (07:43)
[2020-07-31] MEDS: hydrALAZINE HCL 25 MG TAB PO SCH ×2 (07:43→19:21)
[2020-07-31] MEDS: METOPROLOL SUCCINATE (ER) 25 MG TAB.ER.24H PO SCH (07:43)
[2020-07-31] MEDS: FINASTERIDE 5 MG TAB PO SCH (07:43)
[2020-07-31] MEDS: SERTRALINE 100 MG TAB PO SCH (07:43)
[2020-07-31] MEDS: HEPARIN SODIUM,PORCINE 5,000 UNIT/ML 1 ML VIAL SQ SCH ×2 (07:44→19:21)
[2020-07-31] MEDS: TAMSULOSIN 0.4 MG CAP.ER.24H PO SCH (07:44)
[2020-07-31] MEDS: MONTELUKAST 10 MG TAB PO SCH (07:44)
[2020-07-31] MEDS: allopurinoL 100 MG TAB PO SCH (07:44)
[2020-07-31] MEDS: amLODIPine 5 MG TAB PO SCH (07:44)
[2020-07-31] MEDS: PANTOPRAZOLE 40 MG TABLET PO SCH (07:44)
[2020-07-31] MEDS: buPROPion XL 150 MG TAB.ER.24H PO SCH ×2 (07:45→19:22)
[2020-07-31] MEDS: SYMBICORT 80-4.5 MCG INHALER INHALATION SCH ×2 (08:13→19:42)
[2020-07-31] MEDS: IPRATROPIUM-ALBUTEROL 3 ML NEB INHALATION SCH ×4 (08:13→19:42)
[2020-07-31 10:09] LABS: African American GFR (CKD) 82.4 (60.0-200.0); Anion Gap 10.8 mmol/L (4.00-12.00); BUN/Creat Ratio 28.18 Ratio (12.00-20.00); Calcium 8.8 mg/dL (8.7-10.3); Carbon Dioxide 27.2 mmol/L (21.6-31.8); Non-African American GFR(CKD) 71.1 (60.0-200.0); Potassium 4.4 mmol/L (3.5-5.5)
[2020-07-31 11:43] LABS: Glucose,Whole Blood 111 mg/dL (75-99)
[2020-07-31] MEDS: HYDROmorphone 0.5 MG/0.5 ML SYRINGE IVP PRN ×2 (12:40→20:20)
[2020-07-31 17:09] LABS: Glucose,Whole Blood 118 mg/dL (75-99)
--- NOTE | 2020-07-31 18:23 | PN ---
PROGRESS NOTE DATE OF SERVICE: 07/31/2020 This 64-year-old gentleman who was admitted with significant pneumonia on the right side has a history of presumed COVID infection previously. Patient had previously received a course of remdesivir. Currently the patient has extensive pneumonia. Patient also complains of chest pain. The patient was also started on broad-spectrum antibiotics. Suspect infection. Multiple consultants are following the patient closely. Past medical history reviewed. REVIEW OF SYSTEMS: CARDIOVASCULAR SYSTEM: No angina, palpitations. RESPIRATORY SYSTEM: As mentioned earlier. GI: No nausea, vomiting, diarrhea. : No dysuria or retention. NERVOUS SYSTEM: No numbness, weakness. ALLERGY/IMMUNOLOGY: No asthma or hayfever. CURRENT MEDICATIONS: Tylenol, Ventolin, DuoNeb, Zyloprim, Xanax, Norvasc, Symbicort, Prozac, heparin, Solu- Medrol, IV Zosyn. Doses are reviewed. PHYSICAL EXAMINATION: Patient is alert, oriented x3. Pulse 69, blood pressure 114/70, respiration 20, temperature 97.3, pulse ox 97% on 5 L. HEENT: Conjunctivae normal. NECK: No jugular venous distention. CARDIOVASCULAR SYSTEM: S1, S2 muffled. RESPIRATORY SYSTEM: Breath sounds diminished at the bases. A few scattered rhonchi. ABDOMEN: Soft, non-tender. LEGS: No edema. No swelling. NERVOUS SYSTEM: No focal deficit. LABS: Labs at this time show WBC 10.8, hemoglobin 10.9. Accu-Cheks noted. ASSESSMENT: 1. Extensive right-sided interstitial pneumonia, possibly healthcare-associated pneumonia versus COVID-19 pneumonia, with sepsis. 2. History of recent COVID-19 pneumonia. 3. Chronic obstructive pulmonary disease, acute exacerbation, with acute hypoxic respiratory failure. 4. History of anxiety state. 5. Elevated lactic acid, present on admission, possibly secondary to sepsis. 6. Acute kidney injury with acute renal failure. 7. Chronic pain syndrome. 8. Obstructive sleep apnea. 9. Gastroesophageal reflux disease. 10.Hypertension. 11.History of degenerative joint disease. 12.History of atrial flutter, chronic. 13.History of anxiety, depression, bipolar, panic disorder. 14.Claustrophobia history. 15.History of nicotine dependence. 16.History of heavy alcohol abuse. 17.FULL CODE. RECOMMENDATIONS AND DISCUSSION: In this 64-year-old gentleman who presented with multiple complex medical issues, we will monitor the patient closely, continue the current medications, continue symptomatic treatment, continue the broad-spectrum IV antibiotics. Continue steroids. Continue the rest of the medications. Will closely follow with Pulmonary and Infectious Disease. Guarded prognosis. Further recommendations to follow. Incentive spirometer. BETH / AIDAN: [id number] / MTDD
[2020-07-31 20:15] LABS: Glucose,Whole Blood 137 mg/dL (75-99)
[2020-07-31] MEDS: ALPRAZolam 0.25 MG TAB PO PRN (23:38)
[2020-08-01] MEDS: PIPERACILLIN-TAZOBACTAM 3.375 GM in SODIUM CHLORIDE 0.9% 100 ML IVPB SCH ×3 (00:44→16:13)
--- NOTE | 2020-08-01 01:15 | CONS ---
CONSULTATION DATE OF SERVICE: 07/31/2020. REASON FOR CONSULTATION: Pneumonia question of Covid. HISTORY OF PRESENT ILLNESS: The patient is a 64-year-old male with a past medical history significant for COPD, recurrent admission to this facility for pneumonia. He was discharged about 2 weeks ago for episode of pneumonia, presented back to hospital on July 27, 2020 for evaluation of increasing shortness of breath. The patient did also have a cough which is moderate intensity with occasional sputum production, whitish to yellow. No hemoptysis. No pleuritic chest pain. No nausea, no vomiting. No abdominal pain. No diarrhea. The patient did have testing in outpatient setting, which was negative. On presentation to the hospital, the patient has been afebrile and no fever has been recorded during the hospital stay. He did have mild hypoxemia with of a 100% on room air. Subsequent has been 96% on 5 L nasal cannula. The patient did have elevated white count 13.2 on admission with no lymphopenia. White count subsequently seemed to have improved. D-dimer was negative. The patient did have a procalcitonin 0.20. LDH was mildly at 1247. His ALT and AST were normal. The patient has been treated with Zosyn with concern for pneumonia. Infectious Disease was consulted today to rule out Covid pneumonia in this patient who also had a negative Covid test and change antibiotic therapy. The patient did have a CT of the chest, which apparently shows marked interval improvement in the left lung with resolution of the ground-glass opacity throughout the left lung. However, now showing areas of ground glass opacity throughout the right lung on current study. REVIEW OF SYSTEMS: Positive points have been mentioned in HPI. Rest of systems are negative. PAST MEDICAL HISTORY: His past medical history significant for atrial flutter, asthma, chest pain, angina, COPD, gastroesophageal reflux disease, hypertension, osteoarthritis, pneumonia. PAST SURGICAL HISTORY: Past surgical history of adenoidectomy, bowel resection, cholecystectomy. SOCIAL HISTORY: Remote history of smoking. Did admit to marijuana use. FAMILY HISTORY: Mother with history of asthma. Father with history of CVA and TIA. ALLERGIES: To CLONAZEPAM. MEDICATIONS: The patient is currently on Tylenol, Ventolin, DuoNeb, Zyloprim, Xanax, Norvasc, Symbicort, Proscar, Solu-Medrol 80 q.8, Singulair, Zosyn, Zoloft and Flomax. PHYSICAL EXAMINATION: Blood pressure 134/70 with a pulse of 72, temperature 98.2. He is 93% on 5 L nasal cannula. General description is a middle-aged male up in the bed in no distress. No tachypnea or accessory muscles of respiration use. HEENT: Examination shows no pallor or scleral icterus. Oral mucosa membranes are dry. Neck: Trachea central. No thyromegaly. Lungs unlabored breathing, decreased intensity in breath sounds. No wheeze. Heart S1, S2. Regular rate and rhythm. ABDOMEN: Soft. No tenderness. No guarding. No rigidity. Extremities: No edema of the feet. Skin examination: No rash or mass palpable. The patient is awake and alert, oriented times three. Mood and affect normal. LABS: BUN of 31, creatinine 1.1. Hemoglobin is 10.8, white count 10.2, admission white count 13.2. D-dimer was negative. CT report mentioned above. DIAGNOSTIC IMPRESSION AND PLAN: Patient with a history of chronic obstructive pulmonary disease, recurrent pneumonia in this patient admitted to the hospital with increasing shortness of breath. CT of the chest did show improvement in his left-sided infiltrate, but now developing infiltrate on the right side with concern for possible BOOP. Clinically not behaving as a COVID- 19 pneumonia and apparently did have two Covid test that has been negative. PLAN: 1. We will try to obtain sputum for Gram stain and culture , urine for Legionella antigen and a possible pneumonia. 2. Continue with steroids and Zosyn. 3. We will follow on his clinical condition and further adjust medication if needed. Thank you for this consultation. Will follow this patient along with you. MMODL / IJN: [id number] / RAI
[2020-08-01] MEDS: methylPREDNISolone SOD SUCCI 125 MG/2 ML VIAL IV SCH ×3 (03:58→20:06)
[2020-08-01] MEDS: oxyCODONE-APAP 10-325MG 1 EACH TAB PO PRN ×4 (04:00→22:04)
[2020-08-01] MEDS: HYDROmorphone 0.5 MG/0.5 ML SYRINGE IVP PRN ×3 (04:31→20:07)
[2020-08-01 06:42] LABS: Glucose,Whole Blood 117 mg/dL (75-99)
[2020-08-01] MEDS: INSULIN ASPART (NovoLOG) 100 UNIT/ML VIAL SQ SCH ×4 (07:18→21:12)
[2020-08-01] MEDS: HEPARIN SODIUM,PORCINE 5,000 UNIT/ML 1 ML VIAL SQ SCH ×2 (07:27→21:20)
[2020-08-01] MEDS: TAMSULOSIN 0.4 MG CAP.ER.24H PO SCH (07:27)
[2020-08-01] MEDS: METOPROLOL SUCCINATE (ER) 25 MG TAB.ER.24H PO SCH (07:27)
[2020-08-01] MEDS: SERTRALINE 100 MG TAB PO SCH (07:27)
[2020-08-01] MEDS: amLODIPine 5 MG TAB PO SCH (07:28)
[2020-08-01] MEDS: allopurinoL 100 MG TAB PO SCH (07:28)
[2020-08-01] MEDS: MONTELUKAST 10 MG TAB PO SCH (07:28)
[2020-08-01] MEDS: LORATADINE 10 MG TAB PO SCH (07:28)
[2020-08-01] MEDS: FINASTERIDE 5 MG TAB PO SCH (07:28)
[2020-08-01] MEDS: buPROPion XL 150 MG TAB.ER.24H PO SCH ×2 (07:28→21:20)
[2020-08-01] MEDS: hydrALAZINE HCL 25 MG TAB PO SCH ×2 (07:28→21:20)
[2020-08-01] MEDS: PANTOPRAZOLE 40 MG TABLET PO SCH (07:28)
[2020-08-01] MEDS: SYMBICORT 80-4.5 MCG INHALER INHALATION SCH ×2 (08:22→20:02)
[2020-08-01] MEDS: IPRATROPIUM-ALBUTEROL 3 ML NEB INHALATION SCH ×4 (08:22→20:02)
[2020-08-01 11:20] VITALS: BMI 32.6
[2020-08-01 11:36] LABS: Glucose,Whole Blood 105 mg/dL (75-99)
[2020-08-01 16:52] LABS: Glucose,Whole Blood 110 mg/dL (75-99)
[2020-08-01] MEDS: FLUCONAZOLE 100 MG TAB PO SCH (17:37)
[2020-08-01 20:55] LABS: Glucose,Whole Blood 134 mg/dL (75-99)
--- NOTE | 2020-08-01 22:26 | PN ---
PROGRESS NOTE DATE OF SERVICE: 08/01/2020 REASON FOR FOLLOWUP: Gram-negative pneumonia. INTERVAL HISTORY: The patient is currently afebrile. The patient is breathing more comfortably. The patient denies having any chest pain. He did have a cough; less sputum. No nausea, no vomiting, no abdominal pain or diarrhea. PHYSICAL EXAMINATION: Blood pressure 137/77 with a pulse of 69, temperature 98.2. He is 93% on room air. General description is a middle-aged male lying in bed in no distress. RESPIRATORY SYSTEM: Unlabored breathing with decreased intensity of breath sounds. No wheeze. HEART: S1, S2. Regular rate and rhythm. ABDOMEN: Soft. No tenderness. LABS: . Sputum is showing Gram-negative. DIAGNOSTIC IMPRESSION AND PLAN: Patient admitted to hospital with pneumonia. Sputum now showing a Gram- negative. Patient is covered with Zosyn; to continue while waiting for the culture to finalize to determine his discharge antibiotics. Continue with supportive care. MMODL / IJN: [id number] / MTDD
[2020-08-02] MEDS: PIPERACILLIN-TAZOBACTAM 3.375 GM in SODIUM CHLORIDE 0.9% 100 ML IVPB SCH ×2 (00:39→07:36)
[2020-08-02] MEDS: ALPRAZolam 0.25 MG TAB PO PRN ×2 (00:39→07:34)
--- NOTE | 2020-08-02 02:16 | P.PN ---
Subjective Progress Note Date: 08/01/20 This is a 64 year old male who was recently admitted for significant pneumonia on the right with recent presumed Covid 19 infection previously and is being closely monitored. Pulmonary and infectious disease following. Patient is maintained on IV antibiotics in the form of Zosyn while awaiting sputum culture finalizations. Preliminary showing some budding yeast along with gram negative bacilli. Diflucan ordered. Patient is currently 93% on room air. D-dimer remains negative. Incentive spirometer ordered. No reports of chest pain or palpitations. No reports of worsening shortness of breath. Patient is afebrile. Review of systems: Constitutional: reports fatigue, fever, or chills, reports back pain Cardiovascular: No reports of chest pain or palpitations Respiratory: Reports shortness of breath and cough GI: No reports of nausea, vomiting, or diarrhea : No reports of dysuria or retention Neurovascular: No reports of weakness or numbness All medications have been reviewed Active Medications Acetaminophen (Acetaminophen Tab 325 Mg Tab) 650 mg PO Q4HR PRN PRN Reason: Fever>101 Albuterol Sulfate (Albuterol Nebulized 2.5 Mg/3 Ml) 2.5 mg INHALATION RT-QID PRN PRN Reason: Shortness Of Breath Last Admin: 07/29/20 04:06 Dose: 2.5 mg Documented by: Albuterol/Ipratropium (Ipratropium-Albuterol 3 Ml Neb) 3 ml INHALATION RT-QID [facility] Last Admin: 08/01/20 11:40 Dose: 3 ml Documented by: Allopurinol (Allopurinol 100 Mg Tab) 200 mg PO DAILY [facility] Last Admin: 08/01/20 07:28 Dose: 200 mg Documented by: Alprazolam (Alprazolam 0.25 Mg Tab) 0.25 mg PO TID PRN PRN Reason: Anxiety Last Admin: 07/31/20 23:38 Dose: 0.25 mg Documented by: Amlodipine Besylate (Amlodipine 5 Mg Tab) 5 mg PO DAILY [facility] Last Admin: 08/01/20 07:28 Dose: 5 mg Documented by: Budesonide/Formoterol Fumarate (Symbicort 80-4.5 Mcg Inhaler) 2 puff INHALATION RT-BID [facility] Last Admin: 08/01/20 08:22 Dose: 2 puff Documented by: Bupropion HCl (Bupropion Xl 150 Mg Tab.Er.24h) 150 mg PO BID [facility] Last Admin: 08/01/20 07:28 Dose: 150 mg Documented by: Finasteride (Finasteride 5 Mg Tab) 5 mg PO DAILY [facility] Last Admin: 08/01/20 07:28 Dose: 5 mg Documented by: Heparin Sodium (Porcine) (Heparin Sodium,Porcine 5,000 Unit/Ml 1 Ml Vial) 5,000 unit SQ Q12HR [facility] Last Admin: 08/01/20 07:27 Dose: 5,000 unit Documented by: Hydralazine HCl (Hydralazine Hcl 25 Mg Tab) 25 mg PO BID [facility] Last Admin: 08/01/20 07:28 Dose: 25 mg Documented by: Hydromorphone HCl (Hydromorphone 0.5 Mg/0.5 Ml Syringe) 0.5 mg IVP Q8HR PRN PRN Reason: Pain Last Admin: 08/01/20 12:25 Dose: 0.5 mg Documented by: Piperacillin Sod/Tazobactam (Sod 3.375 gm/ Sodium Chloride) 100 mls @ 25 mls/hr IVPB Q8HR [facility] Last Admin: 08/01/20 08:10 Dose: 25 mls/hr Documented by: Insulin Aspart (Insulin Aspart (Novolog) 100 Unit/Ml Vial) 0 unit SQ ACHS [facility]; Protocol Last Admin: 08/01/20 12:31 Dose: Not Given Documented by: Loratadine (Loratadine 10 Mg Tab) 10 mg PO DAILY [facility] Last Admin: 08/01/20 07:28 Dose: 10 mg Documented by: Methylprednisolone Sodium Succinate (Methylprednisolone Sod Succi 125 Mg/2 Ml Vial) 80 mg IV Q8H [facility] Last Admin: 08/01/20 12:25 Dose: 80 mg Documented by: Metoprolol Succinate (Metoprolol Succinate (Er) 25 Mg Tab.Er.24h) 25 mg PO DAILY [facility] Last Admin: 08/01/20 07:27 Dose: 25 mg Documented by: Miscellaneous Information (Pneumonia Protocol Utilized 1 Each Misc) 1 each PO ONCE PRN PRN Reason: Per Protocol Montelukast Sodium (Montelukast 10 Mg Tab) 10 mg PO DAILY [facility] Last Admin: 08/01/20 07:28 Dose: 10 mg Documented by: Oxycodone/Acetaminophen (Oxycodone-Apap 10-325mg 1 Each Tab) 1 each PO Q6H PRN PRN Reason: Pain Last Admin: 08/01/20 10:23 Dose: 1 each Documented by: Pantoprazole Sodium (Pantoprazole 40 Mg Tablet) 40 mg PO AC-BRKFST [facility] Last Admin: 08/01/20 07:28 Dose: 40 mg Documented by: Sertraline HCl (Sertraline 100 Mg Tab) 150 mg PO DAILY [facility] Last Admin: 08/01/20 07:27 Dose: 150 mg Documented by: Tamsulosin HCl (Tamsulosin 0.4 Mg Cap.Er.24h) 0.4 mg PO DAILY [facility] Last Admin: 08/01/20 07:27 Dose: 0.4 mg Documented by: Objective - Vital Signs Vital signs: Vital Signs Temp 97.9 F 08/01/20 14:00 Pulse 69 08/01/20 14:00 Resp 18 08/01/20 14:00 BP 130/71 08/01/20 14:00 Pulse Ox 91 L 08/01/20 14:00 Intake & Output 07/31/20 08/01/20 08/01/20 18:59 06:59 18:59 Output Total 900 250 Balance -900 -250 Weight 97.522 kg Output: Urine 900 250 Other: Voiding Method Urinal Urinal Urinal - Exam Gen: This is a 64-year-old male awake, alert and oriented 3, well-developed, well-nourished, obese. Temp is 97.9F, pulse is 69, respirations are 18, blood pressure is 130/71, oxygen saturation is 91% on room air HEENT: Head is atraumatic, normocephalic. Pupils equal, round. Sclerae is anicteric. NECK: Supple. No JVD. No lymphadenopathy. No thyromegaly. LUNGS: Diminished breath sounds bilaterally with some scattered rhonchi and expiratory wheezing noted. No intercostal retractions. HEART: S1, S2 are muffled ABDOMEN: Soft. Obese. Bowel sounds are present. No masses. No tenderness. EXTREMITIES: No pedal edema. No calf tenderness. NEUROLOGICAL: Patient is awake, alert and oriented x3. Cranial nerves 2 through 12 are grossly intact. - Labs CBC & Chem 7: 07/31/20 05:22 07/31/20 05:22 Labs: Abnormal Lab Results - Last 24 Hours (Table) 07/31/20 07/31/20 08/01/20 Range/Units 17:02 20:14 05:50 POC Glucose (mg/dL) 118 H 137 H (75-99) mg/dL C-Reactive Protein (0.0-0.8) mg/dL Procalcitonin 1.28 H (0.02-0.09) ng/mL 08/01/20 08/01/20 08/01/20 Range/Units 05:50 06:40 11:35 POC Glucose (mg/dL) 117 H 105 H (75-99) mg/dL C-Reactive Protein 4.0 H (0.0-0.8) mg/dL Procalcitonin (0.02-0.09) ng/mL Microbiology - Last 24 Hours (Table) 07/31/20 11:58 Blood Culture - Preliminary Blood No Growth after 24 hours 07/27/20 08:33 Blood Culture - Preliminary Blood No Growth after 120 hours 07/31/20 19:55 Gram Stain - Preliminary Sputum Sputum Culture - Preliminary Assessment and Plan Assessment: Extensive right-sided interstitial pneumonia, possibly healthcare associated pneumonia versus Covid 19 pneumonia, with sepsis History of recent Covid 19 pneumonia Chronic obstructive pulmonary disease, acute exacerbation with acute hypoxic respiratory failure History of anxiety state Elevated lactic acid, present on admission, possibly secondary to sepsis Acute kidney injury with acute renal failure Chronic pain syndrome Obstructive sleep apnea Gastroesophageal reflux disease Hypertension history of degenerative joint disease history of atrial flutter, chronic history of anxiety, depression, bipolar, panic disorder Claustrophobia history History of nicotine dependence history of alcohol abuse Full code Recommendations and discussion: Recommend continue current medications, management, and symptomatic treatment. Awaiting sputum culture finalization and patient is maintained on IV antibiotics and will continue at this time until finalized cultures. Infectious disease is following. Preliminary culture showing some gram-negative bacilli. Patient is maintained on steroids and will continue at this time pulmonary also following as well. Will add Diflucan oral due to budding yeasts noted on sputum culture. Continue to encourage incentive spirometer use at least 10 times every hour while awake. Due to multiple complex medical issues, prognosis is guarded. Further recommendations to follow. Possible discharge in 24 hours.
[2020-08-02] MEDS: HYDROmorphone 0.5 MG/0.5 ML SYRINGE IVP PRN (03:48)
[2020-08-02] MEDS: methylPREDNISolone SOD SUCCI 125 MG/2 ML VIAL IV SCH ×2 (04:45→12:32)
[2020-08-02] MEDS: oxyCODONE-APAP 10-325MG 1 EACH TAB PO PRN ×2 (05:51→12:33)
[2020-08-02] MEDS: IPRATROPIUM-ALBUTEROL 3 ML NEB INHALATION SCH ×2 (07:00→10:54)
[2020-08-02] MEDS: SYMBICORT 80-4.5 MCG INHALER INHALATION SCH (07:00)
[2020-08-02 07:22] LABS: Glucose,Whole Blood 104 mg/dL (75-99)
[2020-08-02] MEDS: INSULIN ASPART (NovoLOG) 100 UNIT/ML VIAL SQ SCH ×2 (07:22→12:33)
[2020-08-02] MEDS: buPROPion XL 150 MG TAB.ER.24H PO SCH (07:33)
[2020-08-02] MEDS: HEPARIN SODIUM,PORCINE 5,000 UNIT/ML 1 ML VIAL SQ SCH (07:33)
[2020-08-02] MEDS: TAMSULOSIN 0.4 MG CAP.ER.24H PO SCH (07:33)
[2020-08-02] MEDS: FLUCONAZOLE 100 MG TAB PO SCH (07:34)
[2020-08-02] MEDS: SERTRALINE 100 MG TAB PO SCH (07:34)
[2020-08-02] MEDS: hydrALAZINE HCL 25 MG TAB PO SCH (07:35)
[2020-08-02] MEDS: METOPROLOL SUCCINATE (ER) 25 MG TAB.ER.24H PO SCH (07:35)
[2020-08-02] MEDS: MONTELUKAST 10 MG TAB PO SCH (07:35)
[2020-08-02] MEDS: amLODIPine 5 MG TAB PO SCH (07:35)
[2020-08-02] MEDS: allopurinoL 100 MG TAB PO SCH (07:35)
[2020-08-02] MEDS: FINASTERIDE 5 MG TAB PO SCH (07:36)
[2020-08-02] MEDS: PANTOPRAZOLE 40 MG TABLET PO SCH (07:36)
[2020-08-02] MEDS: LORATADINE 10 MG TAB PO SCH (07:36)
[2020-08-02 08:33] VITALS: BP 179/94; RESP 16; TEMP 97.7
[2020-08-02 10:55] VITALS: PULSE 64
[2020-08-02 12:25] LABS: Glucose,Whole Blood 102 mg/dL (75-99)
--- NOTE | 2020-08-02 14:03 | PN ---
PROGRESS NOTE DATE OF SERVICE: 08/02/2020 REASON FOR FOLLOWUP: Pneumonia. INTERVAL HISTORY: Patient is seen on rounds this afternoon. The patient has been afebrile. He is breathing comfortably on room air. The patient is feeling much better. Denies any chest pain. Minimal cough. No abdominal pain, no diarrhea. EXAMINATION: Blood pressure 139/94, pulse 64, temperature 97.7. He is 95% on room air. General description is a middle-aged male up in the room in no distress. Respiratory system: Unlabored breathing, decreased breath sounds at the bases, no wheeze. Heart S1, S2. Regular rate and rhythm. Abdomen is soft, no tenderness. LABS: No new labs have been obtained today. Sputum has been negative for resistant pathogen. DIAGNOSTIC IMPRESSION/PLAN: The patient admitted to the hospital with increased shortness of breath, cough with evidence of pneumonia. Sputum showing gram-negative. Culture did not grow anything resistant. Plan is to finish the antibiotics with oral Avalox for 7 days. Discussed with the admitting team. MMODL / IJN: [id number] / MTDD
--- NOTE | 2020-08-02 14:24 | P.DS ---
Providers Date of admission: 07/27/20 08:29 Expected date of discharge: 08/02/20 Attending physician: Campbell Avilez Consults: 07/27/20 12:28 Consult Physician Urgent Consulting Provider: Nehemiah Granados Consult Reason/Comments: Right pneumonia Do you want consulting provider notified?: Yes 07/31/20 11:36 Consult Physician Routine Consulting Provider: Wilman Lobato Consult Reason/Comments: covid pneumonia Do you want consulting provider notified?: Yes Primary care physician: Deborah Shah [facility] Course: Final diagnosis Extensive right-sided interstitial pneumonia, possibly healthcare associated pneumonia versus Covid 19 pneumonia, with sepsis History of recent Covid 19 pneumonia Chronic obstructive pulmonary disease, acute exacerbation with acute hypoxic respiratory failure History of anxiety state Elevated lactic acid, present on admission, possibly secondary to sepsis Acute kidney injury with acute renal failure Chronic pain syndrome Obstructive sleep apnea Gastroesophageal reflux disease Hypertension history of degenerative joint disease history of atrial flutter, chronic history of anxiety, depression, bipolar, panic disorder Claustrophobia history History of nicotine dependence history of alcohol abuse Full code Discharge disposition Patient is being discharged in a stable condition with guarded prognosis to home. Patient will follow-up with Dr. Shah in the outpatient setting upon discharge. Patient will continue on oral antibiotics in the form of Avelox 400 mg daily for the next 7 days along with a prednisone taper and Diflucan 200 mg daily for the next 7 days to complete the course. Total time taken is greater than 35 minutes. Hospital course This is a 64-year-old male who was recently admitted with significant pneumonia on the right with recent Covid 19 infection and was being closely monitored. She was maintained on IV antibiotics in the form of Zosyn. Patient will continue with oral antibiotics in the form of Avelox 400 mg daily for the next 7 days along with a prednisone taper. Sputum Culture showed some budding yeast and will continue with Diflucan 200 mg daily for the next 7 days. Patient instructed to follow-up with Dr. Shah in the outpatient setting upon discharge. Currently no reports of chest pain, shortness of breath, or palpitations. Patient is afebrile. No reports of nausea or vomiting and patient is tolerating diet. Patient will be discharged home today. On exam vital signs are stable. Temp is 97.7F, pulse is 64, respirations are 16, blood pressure is 179/94, oxygen saturation is 95% on room air. Cardio S1, S2 are muffled. Respiratory system shows diminished breath sounds at the bases with no wheezing or rhonchi noted. Abdomen is soft and nontender. Nervous system shows no focal deficits. Please refer to medication reconciliation sheet for a list of medications. Patient Condition at Discharge: Stable Plan - Discharge Summary Discharge Rx Participant: Yes New Discharge Prescriptions: New Moxifloxacin HCl [Avelox] 400 mg PO DAILY 7 Days #7 tablet Fluconazole [Diflucan] 200 mg PO DAILY 7 Days #7 tab Ipratropium-Albuterol Nebulize [Duoneb 0.5 mg-3 mg/3 ml Soln] 3 ml INHALATION RT-QID 30 Days #120 ml predniSONE 10 mg PO DIRECTED #30 tab Continue Montelukast [Singulair] 10 mg PO DAILY Sertraline [Zoloft] 150 mg PO DAILY buPROPion HCL [Wellbutrin XL] 150 mg PO BID Finasteride [Proscar] 5 mg PO DAILY Tamsulosin HCl [Flomax] 0.4 mg PO DAILY amLODIPine [Norvasc] 5 mg PO DAILY Allopurinol [Zyloprim] 200 mg PO DAILY Metoprolol Succinate (ER) [Toprol XL] 25 mg PO DAILY #30 tab.er.24h Albuterol Inhaler [Ventolin Hfa Inhaler] 2 puff INHALATION RT-QID PRN PRN Reason: Shortness Of Breath Fluticasone/Umeclidin/Vilanter [Trelegy Ellipta 100-62.5-25] 1 puff INHALATION RT-DAILY hydrALAZINE HCL 25 mg PO BID Omeprazole 20 mg PO BID Cetirizine HCl 10 mg PO DAILY oxyCODONE-APAP 10-325MG [Percocet 10-325 mg] 1 tab PO Q6H PRN #12 tab PRN Reason: Pain Discharge Medication List Montelukast [Singulair] 10 mg PO DAILY 03/16/14 [History] Sertraline [Zoloft] 150 mg PO DAILY 11/04/18 [History] buPROPion HCL [Wellbutrin XL] 150 mg PO BID 05/02/19 [History] Finasteride [Proscar] 5 mg PO DAILY 11/18/19 [History] Tamsulosin HCl [Flomax] 0.4 mg PO DAILY 11/18/19 [History] amLODIPine [Norvasc] 5 mg PO DAILY 12/23/19 [History] Allopurinol [Zyloprim] 200 mg PO DAILY 04/12/20 [History] Metoprolol Succinate (ER) [Toprol XL] 25 mg PO DAILY #30 tab.er.24h 04/14/20 [Rx] Albuterol Inhaler [Ventolin Hfa Inhaler] 2 puff INHALATION RT-QID PRN 05/22/20 [History] Fluticasone/Umeclidin/Vilanter [Trelegy Ellipta 100-62.5-25] 1 puff INHALATION RT-DAILY 05/22/20 [History] hydrALAZINE HCL 25 mg PO BID 05/22/20 [History] Cetirizine HCl 10 mg PO DAILY 07/14/20 [History] Omeprazole 20 mg PO BID 07/14/20 [History] Fluconazole [Diflucan] 200 mg PO DAILY 7 Days #7 tab 08/02/20 [Rx] Ipratropium-Albuterol Nebulize [Duoneb 0.5 mg-3 mg/3 ml Soln] 3 ml INHALATION RT-QID 30 Days #120 ml 08/02/20 [Rx] Moxifloxacin HCl [Avelox] 400 mg PO DAILY 7 Days #7 tablet 08/02/20 [Rx] oxyCODONE-APAP 10-325MG [Percocet 10-325 mg] 1 tab PO Q6H PRN #12 tab 08/02/20 [Rx] predniSONE 10 mg PO DIRECTED #30 tab 08/02/20 [Rx] Follow up Appointment(s)/Referral(s): Deborah Shah III, MD [Primary Care Provider] - 1-2 days Patient Instructions/Handouts: Viral Pneumonia (DC) Activity/Diet/Wound Care/Special Instructions: Activity Limited until follow-up Follow-up with primary care provider upon discharge Continue with prednisone taper Continue with antibiotics daily for the next 7 days. occupational therapy professor prescription tomorrow. Discharge Disposition: HOME SELF-CARE
[2020-08-03] MEDS ORDERED: amLODIPine 10 MG TAB PO SCH (09:00)
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
--- NOTE | 2020-08-09 14:52 | P.PN ---
Subjective Progress Note Date: 07/29/20 Principal diagnosis: Healthcare associated right-sided pneumonia Acute COPD exacerbation Acute on chronic hypoxic respiratory failure Chronic pain syndrome Chronic atrial fibrillation Sleep disorder breathing and sleep apnea Degenerative joint disease osteoarthritis History of smoking and ethanol abuse 07/29/2020, patient overall respiratory status slightly better blood in the sputum cultures have been obtained and results are pending patient remains on antibiotic feels slightly better however continued to have issues with pain especially in the spine which is a chronic recurrent pain This is a 64-year-old male with past medical history of chronic atrial fibrilla tion and history of end-stage COPD chronic hypoxic respiratory failure on supplemental oxygen noncompliant with CPAP machine, [facility] with progressive shortness of breath and ongoing cough congestion and wheezing, symptoms started about 4-5 days ago has been progressive, patient last Coumadin testing was performed about 4 days ago which was negative patient is being admitted into the hospital for IV steroids antibiotics and supportive care Objective - Vital Signs Vital signs: Vital Signs Temp 98.1 F 07/29/20 17:35 Pulse 77 07/29/20 17:35 Resp 22 07/29/20 17:35 BP 124/62 07/29/20 17:35 Pulse Ox 94 L 07/29/20 17:35 Intake & Output 07/29/20 07/29/20 07/30/20 06:59 18:59 06:59 Output Total 600 1400 Balance -600 -1400 Output: Urine 600 1400 Other: Voiding Method Toilet Toilet Urinal Urinal - Exam - Constitutional General appearance: average body habitus, disheveled - EENT Eyes: PERRLA Ears: bilateral: normal - Neck Carotids: bilateral: upstroke normal Thyroid: bilateral: normal size - Respiratory Respiratory: bilateral: diminished - Cardiovascular Rhythm: regular Heart sounds: normal: S1, S2 - Gastrointestinal General gastrointestinal: soft - Neurologic Neurologic: CNII-XII intact - Musculoskeletal Musculoskeletal: gait normal, generalized weakness, strength equal bilaterally - Psychiatric Psychiatric: A&O x's 3, appropriate affect, intact judgment & insight - Labs CBC & Chem 7: 07/31/20 05:22 07/31/20 05:22 Labs: Abnormal Lab Results - Last 24 Hours (Table) 07/29/20 07/29/20 Range/Units 06:06 06:06 RBC 3.43 L (4.30-5.90) m/uL Hgb 10.3 L (13.0-17.5) gm/dL Hct 31.6 L (39.0-53.0) % Plt Count 135 L (150-450) k/uL Neutrophils # 8.6 H (1.3-7.7) k/uL Anion Gap 2.80 L (4.00-12.00) mmol/L BUN/Creatinine Ratio 21.11 H (12.00-20.00) Ratio Calcium 8.0 L (8.7-10.3) mg/dL Microbiology - Last 24 Hours (Table) 07/27/20 08:33 Blood Culture - Preliminary Blood No Growth after 48 hours Assessment and Plan Assessment: Healthcare associated right-sided pneumonia Acute COPD exacerbation Acute on chronic hypoxic respiratory failure Chronic pain syndrome Chronic atrial fibrillation Sleep disorder breathing and sleep apnea Degenerative joint disease osteoarthritis History of smoking and ethanol abuse Plan: Patient is being admitted to the hospital for broad-spectrum antibiotics breathing treatments and IV steroids will try to obtain a sputum for Gram stain and culture continue current supportive care and pain management as per primary service Time with Patient: Greater than 30
--- NOTE | 2020-08-09 14:55 | P.PN ---
Subjective Progress Note Date: 07/30/20 Principal diagnosis: Healthcare associated right-sided pneumonia Acute COPD exacerbation Acute on chronic hypoxic respiratory failure Chronic pain syndrome Chronic atrial fibrillation Sleep disorder breathing and sleep apnea Degenerative joint disease osteoarthritis History of smoking and ethanol abuse 07/30/2020, patient seen eval examined during the rounds, overall respiratory status remains marginal, we'll get short of breath activity and exertion patient underwent a computed tomography scan of his chest without contrast, right-sided extensive pneumonia is seen without involvement of left pneumonia which was seen few months ago 07/29/2020, patient overall respiratory status slightly better blood in the sputum cultures have been obtained and results are pending patient remains on antibiotic feels slightly better however continued to have issues with pain e specially in the spine which is a chronic recurrent pain This is a 64-year-old male with past medical history of chronic atrial fibrillation and history of end-stage COPD chronic hypoxic respiratory failure on supplemental oxygen noncompliant with CPAP machine, [facility] with progressive shortness of breath and ongoing cough congestion and wheezing, symptoms started about 4-5 days ago has been progressive, patient last Coumadin testing was performed about 4 days ago which was negative patient is being admitted into the hospital for IV steroids antibiotics and supportive care Objective - Vital Signs Vital signs: Vital Signs Temp 97.7 F 07/30/20 07:52 Pulse 76 07/30/20 11:42 Resp 20 07/30/20 07:52 BP 169/74 07/30/20 07:52 Pulse Ox 96 07/30/20 07:52 Intake & Output 07/29/20 07/30/20 07/30/20 18:59 06:59 18:59 Intake Total 550 Output Total 1400 1200 Balance -1400 -650 Intake: Intake, IV Titration 100 Amount Piperacillin-Tazobactam 3 100 .375 gm In Sodium Chloride 0.9% 100 ml @ 25 mls/hr IVPB Q8HR [facility] Rx# :[id number] Oral 450 Output: Urine 1400 1200 Other: Voiding Method Toilet Urinal # Voids 2 - Exam - Constitutional General appearance: average body habitus, disheveled - EENT Eyes: PERRLA Ears: bilateral: normal - Neck Carotids: bilateral: upstroke normal Thyroid: bilateral: normal size - Respiratory Respiratory: bilateral: diminished - Cardiovascular Rhythm: regular Heart sounds: normal: S1, S2 - Gastrointestinal General gastrointestinal: soft - Neurologic Neurologic: CNII-XII intact - Musculoskeletal Musculoskeletal: gait normal, generalized weakness, strength equal bilaterally - Psychiatric Psychiatric: A&O x's 3, appropriate affect, intact judgment & insight - Labs CBC & Chem 7: 07/31/20 05:22 07/31/20 05:22 Labs: Abnormal Lab Results - Last 24 Hours (Table) 07/30/20 Range/Units 05:20 Carbon Dioxide 35.0 H (21.6-31.8) mmol/L Anion Gap 3.00 L (4.00-12.00) mmol/L Glucose 113 H (70-110) mg/dL Microbiology - Last 24 Hours (Table) 07/27/20 08:33 Blood Culture - Preliminary Blood No Growth after 72 hours Assessment and Plan Assessment: Healthcare associated right-sided pneumonia Acute COPD exacerbation Acute on chronic hypoxic respiratory failure Chronic pain syndrome Chronic atrial fibrillation Sleep disorder breathing and sleep apnea Degenerative joint disease osteoarthritis History of smoking and ethanol abuse Plan: Patient is being admitted to the hospital for broad-spectrum antibiotics breathing treatments and IV steroids will try to obtain a sputum for Gram stain and culture continue current supportive care and pain management as per primary service Time with Patient: Greater than 30
--- NOTE | 2020-08-09 14:57 | P.PN ---
Subjective Progress Note Date: 07/31/20 Principal diagnosis: Healthcare associated right-sided pneumonia Acute COPD exacerbation Acute on chronic hypoxic respiratory failure Chronic pain syndrome Chronic atrial fibrillation Sleep disorder breathing and sleep apnea Degenerative joint disease osteoarthritis History of smoking and ethanol abuse 07/31/2020, computed tomography scan finding as before, remains on broad- spectrum antibiotics respiratory status slowly improving ID service has been following cultures have been negative, 07/30/2020, patient seen eval examined during the rounds, overall respiratory status remains marginal, we'll get short of breath activity and exertion patient underwent a computed tomography scan of his chest without contrast, right-sided extensive pneumonia is seen without involvement of left pneumonia which was seen few months ago 07/29/2020, patient overall respiratory status slightly better blood in the sputum cultures have been obtained and results are pending patient remains on antibiotic feels slightly better however continued to have issues with pain especially in the spine which is a chronic recurrent pain This is a 64-year-old male with past medical history of chronic atrial fibrillation and history of end-stage COPD chronic hypoxic respiratory failure on supplemental oxygen noncompliant with CPAP machine, [facility] [place] with progressive shortness of breath and ongoing cough congestion and wheezing, symptoms started about 4-5 days ago has been progressive, patient last Coumadin testing was performed about 4 days ago which was negative patient is being admitted into the hospital for IV steroids antibiotics and supportive care Objective - Vital Signs Vital signs: Vital Signs Temp 97.8 F 07/31/20 14:00 Pulse 69 07/31/20 15:28 Resp 20 07/31/20 14:00 BP 148/79 07/31/20 14:00 Pulse Ox 97 07/31/20 14:00 Intake & Output 07/30/20 07/31/20 07/31/20 18:59 06:59 18:59 Intake Total 880 Balance 880 Intake: Intake, IV Titration 100 Amount Piperacillin-Tazobactam 3 100 .375 gm In Sodium Chloride 0.9% 100 ml @ 25 mls/hr IVPB Q8HR COUNTS INCLUDE 234 BEDS AT THE [facility] Rx# :[id number] Oral 780 Other: Voiding Method Urinal # Voids 2 1 - Exam - Constitutional General appearance: average body habitus, disheveled - EENT Eyes: PERRLA Ears: bilateral: normal - Neck Carotids: bilateral: upstroke normal Thyroid: bilateral: normal size - Respiratory Respiratory: bilateral: diminished - Cardiovascular Rhythm: regular Heart sounds: normal: S1, S2 - Gastrointestinal General gastrointestinal: soft - Neurologic Neurologic: CNII-XII intact - Musculoskeletal Musculoskeletal: gait normal, generalized weakness, strength equal bilaterally - Psychiatric Psychiatric: A&O x's 3, appropriate affect, intact judgment & insight - Labs CBC & Chem 7: 07/31/20 05:22 07/31/20 05:22 Labs: Abnormal Lab Results - Last 24 Hours (Table) 07/31/20 07/31/20 07/31/20 Range/Units 00:47 05:22 05:22 WBC 10.8 H (3.8-10.6) k/uL RBC 3.73 L (4.30-5.90) m/uL Hgb 10.9 L (13.0-17.5) gm/dL Hct 34.7 L (39.0-53.0) % Neutrophils # 9.9 H (1.3-7.7) k/uL Lymphocytes # 0.6 L (1.0-4.8) k/uL BUN 31.0 H (9.0-27.0) mg/dL BUN/Creatinine Ratio 28.18 H (12.00-20.00) Ratio POC Glucose (mg/dL) 145 H (75-99) mg/dL 07/31/20 07/31/20 Range/Units 06:56 11:33 WBC (3.8-10.6) k/uL RBC (4.30-5.90) m/uL Hgb (13.0-17.5) gm/dL Hct (39.0-53.0) % Neutrophils # (1.3-7.7) k/uL Lymphocytes # (1.0-4.8) k/uL BUN (9.0-27.0) mg/dL BUN/Creatinine Ratio (12.00-20.00) Ratio POC Glucose (mg/dL) 122 H 111 H (75-99) mg/dL Microbiology - Last 24 Hours (Table) 07/27/20 08:33 Blood Culture - Preliminary Blood No Growth after 96 hours Assessment and Plan Assessment: Healthcare associated right-sided pneumonia Acute COPD exacerbation Acute on chronic hypoxic respiratory failure Chronic pain syndrome Chronic atrial fibrillation Sleep disorder breathing and sleep apnea Degenerative joint disease osteoarthritis History of smoking and ethanol abuse Plan: Patient is being admitted to the hospital for broad-spectrum antibiotics breathing treatments and IV steroids will try to obtain a sputum for Gram stain and culture continue current supportive care and pain management as per primary service Time with Patient: Greater than 30
--- NOTE | 2020-08-09 15:00 | P.PN ---
Subjective Progress Note Date: 08/01/20 Principal diagnosis: Healthcare associated right-sided pneumonia Acute COPD exacerbation Acute on chronic hypoxic respiratory failure Chronic pain syndrome Chronic atrial fibrillation Sleep disorder breathing and sleep apnea Degenerative joint disease osteoarthritis History of smoking and ethanol abuse 08/01/2020, patient seen eval examined patient wishes to go home sitting comfortably cuff congestion is significantly improved, patient to be discharged on oral antibiotics oral tapering steroids and continuation of home medications discussed with primary service 07/31/2020, computed tomography scan finding as before, remains on broad- spectrum antibiotics respiratory status slowly improving ID service has been following cultures have been negative, 07/30/2020, patient seen eval examined during the rounds, overall respiratory status remains marginal, we'll get short of breath activity and exertion patient underwent a computed tomography scan of his chest without contrast, right-sided extensive pneumonia is seen without involvement of left pneumonia which was seen few months ago 07/29/2020, patient overall respiratory status slightly better blood in the s putum cultures have been obtained and results are pending patient remains on antibiotic feels slightly better however continued to have issues with pain especially in the spine which is a chronic recurrent pain This is a 64-year-old male with past medical history of chronic atrial fibrillation and history of end-stage COPD chronic hypoxic respiratory failure on supplemental oxygen noncompliant with CPAP machine, [facility] with progressive shortness of breath and ongoing cough congestion and wheezing, symptoms started about 4-5 days ago has been progressive, patient last Coumadin testing was performed about 4 days ago which was negative patient is being admitted into the hospital for IV steroids antibiotics and supportive care Objective - Vital Signs Vital signs: Vital Signs Temp 97.9 F 08/01/20 14:00 Pulse 69 08/01/20 14:00 Resp 18 08/01/20 14:00 BP 130/71 08/01/20 14:00 Pulse Ox 91 L 08/01/20 14:00 Intake & Output 07/31/20 08/01/20 08/01/20 18:59 06:59 18:59 Output Total 900 250 Balance -900 -250 Weight 97.522 kg Output: Urine 900 250 Other: Voiding Method Urinal Urinal Urinal - Exam - Constitutional General appearance: average body habitus, disheveled - EENT Eyes: PERRLA Ears: bilateral: normal - Neck Carotids: bilateral: upstroke normal Thyroid: bilateral: normal size - Respiratory Respiratory: bilateral: diminished - Cardiovascular Rhythm: regular Heart sounds: normal: S1, S2 - Gastrointestinal General gastrointestinal: soft - Neurologic Neurologic: CNII-XII intact - Musculoskeletal Musculoskeletal: gait normal, generalized weakness, strength equal bilaterally - Psychiatric Psychiatric: A&O x's 3, appropriate affect, intact judgment & insight - Labs CBC & Chem 7: 07/31/20 05:22 07/31/20 05:22 Labs: Abnormal Lab Results - Last 24 Hours (Table) 07/31/20 07/31/20 08/01/20 Range/Units 17:02 20:14 05:50 POC Glucose (mg/dL) 118 H 137 H (75-99) mg/dL C-Reactive Protein (0.0-0.8) mg/dL Procalcitonin 1.28 H (0.02-0.09) ng/mL 08/01/20 08/01/20 08/01/20 Range/Units 05:50 06:40 11:35 POC Glucose (mg/dL) 117 H 105 H (75-99) mg/dL C-Reactive Protein 4.0 H (0.0-0.8) mg/dL Procalcitonin (0.02-0.09) ng/mL Microbiology - Last 24 Hours (Table) 07/31/20 11:58 Blood Culture - Preliminary Blood No Growth after 24 hours 07/27/20 08:33 Blood Culture - Preliminary Blood No Growth after 120 hours 07/31/20 19:55 Gram Stain - Preliminary Sputum Sputum Culture - Preliminary Assessment and Plan Assessment: Healthcare associated right-sided pneumonia Acute COPD exacerbation Acute on chronic hypoxic respiratory failure Chronic pain syndrome Chronic atrial fibrillation Sleep disorder breathing and sleep apnea Degenerative joint disease osteoarthritis History of smoking and ethanol abuse Plan: Patient is being admitted to the hospital for broad-spectrum antibiotics breathing treatments and IV steroids will try to obtain a sputum for Gram stain and culture continue current supportive care and pain management as per primary service Time with Patient: Greater than 30
== END 2020-08-02 12:59 | disposition home or self-care (01) | DRG 871 ==
LOC: EC 07:14 → 4SSUR 08:29
PROVIDERS: ADMIT Hospitalist; ATTEND Hospitalist
DX: A41.9 Sepsis, unspecified organism (principal); U07.1 COVID-19; J12.82 Pneumonia due to coronavirus disease 2019; J96.21 Acute and chronic respiratory failure with hypoxia; J44.0 Chronic obstructive pulmonary disease with (acute) lower respiratory infection; J84.9 Interstitial pulmonary disease, unspecified; N17.9 Acute kidney failure, unspecified; J44.1 Chronic obstructive pulmonary disease with (acute) exacerbation; I48.20 Chronic atrial fibrillation, unspecified; E87.2 Acidosis; I10 Essential (primary) hypertension; Z86.16 Personal history of COVID-19; G89.4 Chronic pain syndrome; G47.33 Obstructive sleep apnea (adult) (pediatric); F41.1 Generalized anxiety disorder; F31.9 Bipolar disorder, unspecified; E86.0 Dehydration; F12.90 Cannabis use, unspecified, uncomplicated; I45.10 Unspecified right bundle-branch block; Y95 Nosocomial condition; F41.0 Panic disorder [episodic paroxysmal anxiety]; K21.9 Gastro-esophageal reflux disease without esophagitis; M19.90 Unspecified osteoarthritis, unspecified site; Z79.899 Other long term (current) drug therapy; Z87.891 Personal history of nicotine dependence; Z87.01 Personal history of pneumonia (recurrent); Z82.5 Family history of asthma and other chronic lower respiratory diseases; Z91.010 Allergy to peanuts; Z88.8 Allergy status to other drugs, medicaments and biological substances; Z91.09 Other allergy status, other than to drugs and biological substances; Z90.49 Acquired absence of other specified parts of digestive tract; Z90.89 Acquired absence of other organs; Z98.890 Other specified postprocedural states; Z82.3 Family history of stroke; Z76.5 Malingerer [conscious simulation]
CPT/HCPCS: 36415; 71045; 71046; 71250; 80048; 80053; 82728; 83605; 83615; 83735; 83880; 84145; 84484; 85025; 85379; 85610; 85730; 86140; 87040; 87070; 87205; 87324; 87449; 87635; 93005; 94640; 96365; 96375; 99285

== ENCOUNTER 2020-08-18 12:18 | Emergency (ER) | payer MEDICARE, OTHER ==
[2020-08-18 12:23] VITALS: TEMP 98.4
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
[2020-08-18 13:26] LABS: Basophils % (A) 0 %; Eosinophils # (A) 0.2 k/uL (0-0.7); Eosinophils % (A) 3 %; HCT 33.6 % (39.0-53.0); HGB 11.3 gm/dL (13.0-17.5); Lymphocytes # (A) 1.1 k/uL (1.0-4.8); Lymphocytes % (A) 20 %; MCH 30.4 pg (25.0-35.0); MCHC 33.6 g/dL (31.0-37.0); MCV 90.5 fL (80.0-100.0); Mean Platelet Volume 6.7; Monocytes # (A) 0.3 k/uL (0-1.0); Monocytes % (A) 5 %; Neutrophils # (A) 3.8 k/uL (1.3-7.7); Neutrophils % (A) 70 %; Platelet Count 142 k/uL (150-450); RBC 3.71 m/uL (4.30-5.90); RDW 14.6 % (11.5-15.5); WBC 5.5 k/uL (3.8-10.6)
--- NOTE | 2020-08-18 13:26 | XR ---
EXAMINATION TYPE: XR chest 2V DATE OF EXAM: 08/18/2020 COMPARISON: Chest x-ray 07/29/2020, chest CT 07/30/2020 HISTORY: Difficulty breathing, loss of taste TECHNIQUE: Frontal and lateral views of the chest are obtained. FINDINGS: There is no focal air space opacity, pleural effusion, or pneumothorax seen. The cardiac silhouette size is within normal limits. The osseous structures are intact. There are overlying car diac leads. Increased AP diameter chest may be indicative of underlying COPD with relative flattening the hemidiaphragms. There are dense coronary artery calcifications. IMPRESSION: No acute cardiopulmonary process. There is improvement in aeration as compared to prior exam.
[2020-08-18 13:36] LABS: ALT 20 U/L (4-49); AST 18 U/L (17-59); African American GFR (CKD) >90 (>60 ml/min/1.73 sqM); Albumin 3.5 g/dL (3.5-5.0); Alkaline Phosphatase 92 U/L (38-126); Anion Gap 6 mmol/L; Blood Urea Nitrogen 20 mg/dL (9-20); Calcium 8.8 mg/dL (8.4-10.2); Carbon Dioxide 24 mmol/L (22-30); Chloride 108 mmol/L (98-107); Glucose 151 mg/dL (74-99); Magnesium 2.1 mg/dL (1.6-2.3); Non-African American GFR(CKD) 84 (>60 ml/min/1.73 sqM); Potassium 3.7 mmol/L (3.5-5.1); Sodium 138 mmol/L (137-145); Total Bilirubin 0.2 mg/dL (0.2-1.3); Total Protein 5.7 g/dL (6.3-8.2)
[2020-08-18 13:47] LABS: INR 0.9 (<1.2); Prothrombin Time 9.5 sec (9.0-12.0)
[2020-08-18 13:48] LABS: Partial Thromboplastin Time 20.2 sec (22.0-30.0)
[2020-08-18] MEDS ORDERED: MORPHINE SULFATE 4 MG/ML SYRINGE IVP STA (13:59)
[2020-08-18] MEDS ORDERED: cefTRIAXone IN SWFI 1,000 MG/10 ML SYRINGE IVP STA (14:36)
[2020-08-18] MEDS ORDERED: DOXYCYCLINE 100 MG CAP PO STA (14:36)
[2020-08-18 14:52] VITALS: BP 135/66; PULSE 65; RESP 19
== END 2020-08-18 14:55 | disposition home or self-care (01) ==
LOC: EC 12:18
DX: J44.1 Chronic obstructive pulmonary disease with (acute) exacerbation (principal); J44.0 Chronic obstructive pulmonary disease with (acute) lower respiratory infection; J20.9 Acute bronchitis, unspecified; Z20.822 Contact with and (suspected) exposure to COVID-19; G89.29 Other chronic pain; I48.92 Unspecified atrial flutter; I25.2 Old myocardial infarction; K21.9 Gastro-esophageal reflux disease without esophagitis; F41.0 Panic disorder [episodic paroxysmal anxiety]; F31.9 Bipolar disorder, unspecified; M19.90 Unspecified osteoarthritis, unspecified site; Z79.899 Other long term (current) drug therapy; Z79.891 Long term (current) use of opiate analgesic; Z79.51 Long term (current) use of inhaled steroids; Z87.01 Personal history of pneumonia (recurrent); Z87.891 Personal history of nicotine dependence; Z91.010 Allergy to peanuts; Z91.048 Other nonmedicinal substance allergy status
CPT/HCPCS: 99285; 96374; 96375; 36415; 93005; 83880; 80053; 83605; 83735; 84484; 85025; 85610; 85730; 87635; 71046; J2270; J0696

== ENCOUNTER 2020-10-06 01:55 | Inpatient (IN) | payer MEDICARE, OTHER ==
[2020-10-06] MEDS ORDERED: SODIUM CHLORIDE 0.9% 1,000 ML IV STA (02:17)
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
--- NOTE | 2020-10-06 03:01 | XR ---
EXAM: XR Chest, 2 Views CLINICAL HISTORY: ITS.REASON XR Reason: difficulty breathing TECHNIQUE: Frontal and lateral views of the chest. COMPARISON: 02/12/19 FINDINGS: Lungs: Low lung volumes with patchy bilateral lung opacities. Pleural space: No significant pleural effusion or pneumothorax. Heart: Likely stable cardiomediastinal silhouette. Mediastinum: See above. Bones/joints: No acute fracture. IMPRESSION: Low lung volumes with patchy bilateral lung opacities. Correlate clinically regarding developing infection or edema.
[2020-10-06 03:07] LABS: Basophils % (A) 1 %; Eosinophils # (A) 0.3 k/uL (0-0.7); Eosinophils % (A) 6 %; HCT 33.3 % (39.0-53.0); HGB 10.8 gm/dL (13.0-17.5); Lymphocytes # (A) 1.4 k/uL (1.0-4.8); Lymphocytes % (A) 29 %; MCH 29.2 pg (25.0-35.0); MCHC 32.4 g/dL (31.0-37.0); Mean Platelet Volume 6.8; Monocytes # (A) 0.3 k/uL (0-1.0); Monocytes % (A) 7 %; Neutrophils # (A) 2.7 k/uL (1.3-7.7); Neutrophils % (A) 55 %; Platelet Count 195 k/uL (150-450); RDW 15.7 % (11.5-15.5)
[2020-10-06] MEDS ORDERED: HYDROmorphone 1 MG/ML 1 ML SYRINGE IVP STA ×2 (03:18→03:57)
[2020-10-06 03:20] LABS: Albumin 3.6 g/dL (3.5-5.0); Calcium 8.5 mg/dL (8.4-10.2); Magnesium 1.8 mg/dL (1.6-2.3); Potassium 4.1 mmol/L (3.5-5.1); Total Bilirubin 0.2 mg/dL (0.2-1.3); Total Protein 5.7 g/dL (6.3-8.2)
[2020-10-06 03:23] LABS: INR 0.9 (<1.2); Partial Thromboplastin Time 22.1 sec (22.0-30.0); Prothrombin Time 9.9 sec (9.0-12.0)
[2020-10-06 03:44] LABS: C Reactive Protein 16.3 mg/L (<10.0)
[2020-10-06] MEDS ORDERED: diphenhydrAMINE 50 MG/ML 1 ML VIAL IVP STA (03:57)
[2020-10-06] MEDS ORDERED: PNEUMONIA PROTOCOL UTILIZED 1 EACH MISC PO PRN (04:07)
[2020-10-06] MEDS ORDERED: AZITHROMYCIN 500 MG in SODIUM CHLORIDE 0.9% 250 ML IVPB ONE (04:30)
[2020-10-06] MEDS: SODIUM CHLORIDE 0.9% 1,000 ML IV SCH ×2 (04:34→10:44)
[2020-10-06] MEDS: IPRATROPIUM-ALBUTEROL 3 ML NEB INHALATION SCH ×4 (07:36→23:58)
[2020-10-06] MEDS: HYDROmorphone 1 MG/ML 1 ML SYRINGE IVP PRN ×4 (07:38→21:20)
[2020-10-06] MEDS: ENOXAPARIN 40 MG/0.4 ML SYRINGE SQ SCH (09:20)
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
[2020-10-06] MEDS: methylPREDNISolone SOD SUCCI 40 MG/ML 1 ML VIAL IV SCH (18:23)
[2020-10-06] MEDS: PANTOPRAZOLE 40 MG TABLET PO SCH (18:23)
[2020-10-06] MEDS: hydrALAZINE HCL 25 MG TAB PO SCH (20:34)
[2020-10-07] MEDS: methylPREDNISolone SOD SUCCI 40 MG/ML 1 ML VIAL IV SCH ×4 (00:33→22:56)
[2020-10-07] MEDS: SODIUM CHLORIDE 0.9% 1,000 ML IV SCH ×3 (00:35→22:55)
[2020-10-07] MEDS: HYDROmorphone 1 MG/ML 1 ML SYRINGE IVP PRN ×6 (01:47→22:58)
[2020-10-07] MEDS ORDERED: AZITHROMYCIN 500 MG in SODIUM CHLORIDE 0.9% 250 ML IVPB SCH (07:00)
[2020-10-07] MEDS: IPRATROPIUM-ALBUTEROL 3 ML NEB INHALATION SCH ×4 (07:48→20:17)
--- NOTE | 2020-10-07 07:49 | XR ---
EXAMINATION TYPE: XR chest 2V DATE OF EXAM: 10/07/2020 COMPARISON: Chest x-ray from yesterday. CT chest July 30, 2020. HISTORY: Pneumonia. TECHNIQUE: Frontal and lateral views of the chest are obtained. FINDINGS: There is some chronic parenchymal change with some faint increased opacity in the right lo wer lung. Findings improved from end of July 2020. Left lung remains clear. Cardiac silhouette si ze is stable and upper limits of normal. Retrocardiac opacity consistent with Hiatal hernia redemonst rated. The osseous structures are intact. IMPRESSION: New faint right lower lung opacity may reflect recurrent early acute infiltrate. Progres s study advised.
[2020-10-07] MEDS: PANTOPRAZOLE 40 MG TABLET PO SCH ×2 (08:06→08:09)
[2020-10-07] MEDS ORDERED: amLODIPine 5 MG TAB PO SCH (09:00)
[2020-10-07] MEDS: ENOXAPARIN 40 MG/0.4 ML SYRINGE SQ SCH (09:38)
[2020-10-07] MEDS: TAMSULOSIN 0.4 MG CAP.ER.24H PO SCH (09:39)
[2020-10-07] MEDS: MONTELUKAST 10 MG TAB PO SCH (09:39)
[2020-10-07] MEDS: allopurinoL 300 MG TAB PO SCH (09:39)
[2020-10-07] MEDS: hydrALAZINE HCL 25 MG TAB PO SCH ×3 (09:40→22:55)
[2020-10-07] MEDS: buPROPion XL 300 MG TAB.ER.24H PO SCH (09:40)
[2020-10-07] MEDS: FINASTERIDE 5 MG TAB PO SCH (09:40)
[2020-10-07] MEDS: METOPROLOL SUCCINATE (ER) 25 MG TAB.ER.24H PO SCH (09:41)
[2020-10-07] MEDS: LORATADINE 10 MG TAB PO SCH (09:41)
[2020-10-07 10:31] LABS: Basophils # (A) 0.01 X 10*3/uL (0.00-0.10); Basophils % (A) 0.2 %; Eosinophils # (A) 0.01 X 10*3/uL (0.04-0.35); Eosinophils % (A) 0.2 %; HCT 34.9 % (39.6-50.0); HGB 10.7 g/dL (13.0-17.0); Lymphocytes # (A) 0.45 X 10*3/uL (0.90-5.00); Lymphocytes % (A) 7.7 %; MCH 28.9 pg (27.0-32.0); MCHC 30.7 g/dL (32.0-37.0); MCV 94.3 fL (80.0-97.0); Mean Platelet Volume 10.2 fL (9.5-12.2); Monocytes # (A) 0.04 X 10*3/uL (0.20-1.00); Monocytes % (A) 0.7 %; Neutrophils % (A) 90.7 %; Platelet Count 161 X 10*3/uL (140-440); RDW 14.8 % (11.5-14.5); WBC 5.84 X 10*3/uL (4.50-10.00)
[2020-10-07 11:02] LABS: African American GFR (CKD) 92.4 (60.0-200.0); Anion Gap 7.4 mmol/L (4.00-12.00); Calcium 8.9 mg/dL (8.7-10.3); Carbon Dioxide 24.6 mmol/L (21.6-31.8); Non-African American GFR(CKD) 79.7 (60.0-200.0); Potassium 4.9 mmol/L (3.5-5.5)
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
[2020-10-07] MEDS: HYDROcodone/APAP 7.5-325MG 1 EACH TAB PO PRN ×2 (11:45→18:21)
[2020-10-07] MEDS ORDERED: KETOROLAC 15 MG/ML 1 ML VIAL IVP PRN (11:59)
--- NOTE | 2020-10-07 12:03 | P.PN ---
Subjective 63-year-old male was admitted seconded to COPD exacerbation patient is still having significant wheezing patient remains on IV steroids inhalational treatments. Patient is complaining of severe neck pain patient was started on [place] patient is already on IV opiates for pain. His creatinine improves patient will also be started on Toradol. Still quite a bit short of breath Constitutional: Denied any fatigue denied any fever. Cardio vascular: denied any chest pain, palpitations Gastrointestinal denied any nausea vomiting Pulmonary: Mentioned in the interval history Neurologic denied any new focal deficits All inpatient medications were reviewed and appropriate changes in these medications as dictated in the interval history and assessment and plan. Objective - Vital Signs Vital signs: Vital Signs Temp 98.0 F 10/07/20 08:00 Pulse 65 10/07/20 10:55 Resp 18 10/07/20 10:00 BP 171/81 10/07/20 08:00 Pulse Ox 96 10/07/20 10:00 Intake & Output 10/06/20 10/07/20 10/07/20 18:59 06:59 18:59 Weight 92.986 kg - Exam PHYSICAL EXAMINATION: GENERAL: The patient is alert and oriented x3, not in any acute distress. Obese HEENT: Pupils are round and equally reacting to light. EOMI. No scleral icterus. No conjunctival pallor. Normocephalic, atraumatic. No pharyngeal erythema. No thyromegaly. CARDIOVASCULAR: S1 and S2 present. No murmurs, rubs, or gallops. PULMONARY: Bilateral rhonchi and expiratory wheezing significant ABDOMEN: Soft, nontender, nondistended, normoactive bowel sounds. No palpable or ganomegaly. MUSCULOSKELETAL: No joint swelling or deformity. EXTREMITIES: No cyanosis, clubbing, or pedal edema. NEUROLOGICAL: Gross neurological examination did not reveal any focal deficits. SKIN: No rashes. - Labs CBC & Chem 7: 10/07/20 07:12 10/07/20 07:12 Labs: Abnormal Lab Results - Last 24 Hours (Table) 10/07/20 10/07/20 Range/Units 07:12 07:12 RBC 3.70 L (4.40-5.60) X 10*6/uL Hgb 10.7 L (13.0-17.0) g/dL Hct 34.9 L (39.6-50.0) % MCHC 30.7 L (32.0-37.0) g/dL RDW 14.8 H (11.5-14.5) % Lymphocytes # 0.45 L (0.90-5.00) X 10*3/uL Monocytes # 0.04 L (0.20-1.00) X 10*3/uL Eosinophils # 0.01 L (0.04-0.35) X 10*3/uL BUN/Creatinine Ratio 21.00 H (12.00-20.00) Ratio Glucose 140 H (70-110) mg/dL Microbiology - Last 24 Hours (Table) 10/06/20 04:30 Blood Culture - Preliminary Blood No Growth after 24 hours 10/06/20 04:15 Blood Culture - Preliminary Blood No Growth after 24 hours Assessment and Plan Plan: 1 COPD exacerbation: Continue systemic steroids inhalational treatments patient is also being treated for bronchitis -Possible early community-acquired pneumonia on the right side for which patient is on Rocephin and azithromycin. -Acute renal failure prerenal azotemia secondary to dehydration improved with IV fluids -Hypertension uncontrolled elevated blood pressure dose of amlodipine will be increased and hydralazine dose will be increased -BPH - chronic back pain and chronic neck pain -DVT prophylaxis with heparin and GI prophylaxis: Protonix.
[2020-10-07] MEDS: HEPARIN SODIUM,PORCINE 5,000 UNIT/ML 1 ML VIAL SQ SCH ×2 (15:30→22:56)
[2020-10-08] MEDS: HYDROcodone/APAP 7.5-325MG 1 EACH TAB PO PRN ×2 (01:02→06:20)
[2020-10-08 02:32] VITALS: RESP 18
[2020-10-08] MEDS: HYDROmorphone 1 MG/ML 1 ML SYRINGE IVP PRN ×6 (03:58→22:12)
[2020-10-08] MEDS: SODIUM CHLORIDE 0.9% 1,000 ML IV SCH (05:14)
[2020-10-08] MEDS: IPRATROPIUM-ALBUTEROL 3 ML NEB INHALATION SCH ×4 (07:03→20:17)
[2020-10-08] MEDS: METOPROLOL SUCCINATE (ER) 25 MG TAB.ER.24H PO SCH (08:12)
[2020-10-08] MEDS: amLODIPine 10 MG TAB PO SCH (08:12)
[2020-10-08] MEDS: methylPREDNISolone SOD SUCCI 40 MG/ML 1 ML VIAL IV SCH ×3 (08:12→22:13)
[2020-10-08] MEDS: HEPARIN SODIUM,PORCINE 5,000 UNIT/ML 1 ML VIAL SQ SCH ×3 (08:12→22:13)
[2020-10-08] MEDS: allopurinoL 300 MG TAB PO SCH (08:13)
[2020-10-08] MEDS: hydrALAZINE HCL 25 MG TAB PO SCH ×3 (08:13→21:01)
[2020-10-08] MEDS: MONTELUKAST 10 MG TAB PO SCH (08:13)
[2020-10-08] MEDS: TAMSULOSIN 0.4 MG CAP.ER.24H PO SCH (08:14)
[2020-10-08] MEDS: FINASTERIDE 5 MG TAB PO SCH (08:14)
[2020-10-08] MEDS: buPROPion XL 300 MG TAB.ER.24H PO SCH (08:14)
[2020-10-08] MEDS: LORATADINE 10 MG TAB PO SCH (08:14)
[2020-10-08] MEDS: AZITHROMYCIN 500 MG TAB PO SCH (08:15)
[2020-10-08] MEDS: oxyCODONE-APAP 10-325MG 1 EACH TAB PO SCH ×4 (11:16→21:01)
--- NOTE | 2020-10-08 11:57 | P.PN ---
Subjective Progress Note Date: 10/08/20 63-year-old male was admitted seconded to COPD exacerbation patient is still having significant wheezing patient remains on IV steroids inhalational treatments. Patient is complaining of severe neck pain patient was started on [place] patient is already on IV opiates for pain. His creatinine improves patie nt will also be started on Toradol. Still quite a bit short of breath 10/08/2020 Patient still having expiratory wheezing, diffuse rhonchi. on room air saturating above 90% this morning. Receiving IV Solu-Medrol, antimicrobial therapy with azithromycin and Rocephin. No fevers overnight, no growth and blood cultures. creatinine improved to 1.0, with IV hydration. Constitutional: Denied any fatigue denied any fever. Cardio vascular: denied any chest pain, palpitations Gastrointestinal denied any nausea vomiting Pulmonary: Mentioned in the interval history Neurologic denied any new focal deficits All inpatient medications were reviewed and appropriate changes in these medications as dictated in the interval history and assessment and plan. Objective - Vital Signs Vital signs: Vital Signs Temp 97.6 F 10/08/20 07:53 Pulse 76 10/08/20 11:27 Resp 18 10/08/20 07:53 BP 164/83 10/08/20 07:53 Pulse Ox 96 10/08/20 07:53 Intake & Output 10/07/20 10/08/20 10/08/20 18:59 06:59 18:59 Output Total 750 Balance -750 Weight 92.986 kg Output: Urine 750 Other: Voiding Method Toilet - Exam PHYSICAL EXAMINATION: GENERAL: The patient is alert and oriented x3, not in any acute distress. Obese HEENT: Pupils are round and equally reacting to light. EOMI. No scleral icterus. No conjunctival pallor. Normocephalic, atraumatic. No pharyngeal erythema. No thyromegaly. CARDIOVASCULAR: S1 and S2 present. No murmurs, rubs, or gallops. PULMONARY: Expiratory wheeze to auscultation bilaterally with diffuse scattered rhonchi GASTROINTESTINAL: bowel sounds. No palpable organomegaly. MUSCULOSKELETAL: No joint swelling or deformity. EXTREMITIES: No cyanosis, clubbing, or pedal edema. NEUROLOGICAL: Gross neurological examination did not reveal any focal deficits. SKIN: No rashes. - Labs CBC & Chem 7: 10/07/20 07:12 10/07/20 07:12 Labs: Microbiology - Last 24 Hours (Table) 10/06/20 04:30 Blood Culture - Preliminary Blood No Growth after 48 hours 10/06/20 04:15 Blood Culture - Preliminary Blood No Growth after 48 hours Assessment and Plan Assessment: Plan: 1 COPD exacerbation: Continue IV Solu-Medrol, nebulized bronchodilators, singulair. He is still wheezing -Possible early community-acquired pneumonia on the right side: Continues on Rocephin and azithromycin. -Acute renal failure prerenal azotemia secondary to dehydration: Improved, Hep- Lock IV fluids -Hypertension uncontrolled elevated blood pressure: Norvasc increased to 10, and hydralazine to 50 3 times a day monitor BP -BPH: Continue Flomax - chronic back pain and chronic neck pain: On Percocet -DVT prophylaxis with heparin and GI prophylaxis: Protonix.
[2020-10-08 12:32] VITALS: BMI 29.4
[2020-10-09] MEDS: HYDROmorphone 1 MG/ML 1 ML SYRINGE IVP PRN ×4 (01:11→11:51)
[2020-10-09] MEDS: oxyCODONE-APAP 10-325MG 1 EACH TAB PO SCH ×3 (02:53→14:50)
[2020-10-09 03:55] VITALS: TEMP 97.8
[2020-10-09] MEDS: IPRATROPIUM-ALBUTEROL 3 ML NEB INHALATION SCH ×2 (07:21→10:53)
[2020-10-09 07:45] VITALS: BP 182/95
[2020-10-09] MEDS: hydrALAZINE HCL 25 MG TAB PO SCH (08:22)
[2020-10-09] MEDS: FINASTERIDE 5 MG TAB PO SCH (08:23)
[2020-10-09] MEDS: buPROPion XL 300 MG TAB.ER.24H PO SCH (08:23)
[2020-10-09] MEDS: METOPROLOL SUCCINATE (ER) 25 MG TAB.ER.24H PO SCH (08:23)
[2020-10-09] MEDS: LORATADINE 10 MG TAB PO SCH (08:23)
[2020-10-09] MEDS: allopurinoL 300 MG TAB PO SCH (08:23)
[2020-10-09] MEDS: methylPREDNISolone SOD SUCCI 40 MG/ML 1 ML VIAL IV SCH (08:24)
[2020-10-09] MEDS: HEPARIN SODIUM,PORCINE 5,000 UNIT/ML 1 ML VIAL SQ SCH (08:24)
[2020-10-09] MEDS: TAMSULOSIN 0.4 MG CAP.ER.24H PO SCH (08:25)
[2020-10-09] MEDS: PANTOPRAZOLE 40 MG TABLET PO SCH (08:25)
[2020-10-09] MEDS: amLODIPine 10 MG TAB PO SCH (08:25)
[2020-10-09] MEDS: MONTELUKAST 10 MG TAB PO SCH (08:25)
[2020-10-09] MEDS: AZITHROMYCIN 500 MG TAB PO SCH (09:26)
--- NOTE | 2020-10-09 10:31 | P.PN ---
Subjective Progress Note Date: 10/09/20 Principal diagnosis: Right-sided developing pneumonia Acute on chronic hypoxic respiratory failure Tracheobronchitis Acute kidney injury Hypertension hypertensive cardiovascular disease Obesity Sleep disorder breathing and sleep apnea 10/09/2020, patient seen eval examined during the rounds labs reviewed medications reviewed patient has been ambulating in the hallway, shortness of breath is still present but severity has improved mild wheezing is present patient insisted on going homeblood cultures no growth so far, oxygen saturation is 93% on room air Patient is a 64-year-old well-known to me, patient has 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 tracheobronchitis, patient came into the hospital with increasing shortness of breath cough along with worsening of back pain, currently patient is bordering in the ER, complaining of chest pain and back pain which is not different than baseline, primary service adjusting the pain medicine, x-ray shows bilateral basal infiltrate, patchy infiltrate also noted, chest x-ray showing repeat this morning new infiltrate appears to be bacterial pneumonia, covert 19 is negative, patient is being treated for in the bronchodilators and IV steroids and antibiotics, Objective - Vital Signs Vital signs: Vital Signs Temp 97.8 F 10/09/20 07:44 Pulse 74 10/09/20 07:44 Resp 18 10/09/20 07:44 BP 182/95 10/09/20 07:44 Pulse Ox 98 10/09/20 07:44 Intake & Output 10/08/20 10/09/20 10/09/20 18:59 06:59 18:59 Weight 92.986 kg Other: Voiding Method Toilet # Voids 3 - Exam - Constitutional General appearance: average body habitus, disheveled, mild distress - EENT Eyes: PERRLA Ears: bilateral: normal - Neck Carotids: bilateral: upstroke normal Thyroid: bilateral: normal size - Respiratory Respiratory: bilateral: wheezing, severity appears to have improved compared to prior exam - Cardiovascular Rhythm: regular Heart sounds: normal: S1, S2 - Gastrointestinal General gastrointestinal: distended, soft - Neurologic Neurologic: CNII-XII intact - Musculoskeletal Musculoskeletal: gait normal, generalized weakness, strength equal bilaterally - Psychiatric Psychiatric: A&O x's 3, appropriate affect, intact judgment & insight - Labs CBC & Chem 7: 10/07/20 07:12 10/07/20 07:12 Labs: Microbiology - Last 24 Hours (Table) 10/06/20 04:30 Blood Culture - Preliminary Blood No Growth after 72 hours 10/06/20 04:15 Blood Culture - Preliminary Blood No Growth after 72 hours Assessment and Plan Assessment: Right-sided developing pneumonia Acute on chronic hypoxic respiratory failure Tracheobronchitis Acute kidney injury Hypertension hypertensive cardiovascular disease Obesity Sleep disorder breathing and sleep apnea Plan: Continue IV antibiotics bronchodilators and IV steroids, patient advised to stay another 24 hours but insist on going home in case if he leaves would recommend follow up on outpatient also oral antibiotics and steroids Continue supportive care Supplemental oxygen as needed Deep breathing exercise incentive spirometry Pain management as per primary service Time with Patient: Greater than 30
[2020-10-09 11:06] VITALS: PULSE 76
[2020-10-09 11:11] LABS: HCT 32.5 % (39.6-50.0); HGB 10.3 g/dL (13.0-17.0); MCHC 31.7 g/dL (32.0-37.0); MCV 91.5 fL (80.0-97.0); Mean Platelet Volume 9.8 fL (9.5-12.2); Platelet Count 175 X 10*3/uL (140-440); RBC 3.55 X 10*6/uL (4.40-5.60); WBC 9.71 X 10*3/uL (4.50-10.00)
[2020-10-09 12:57] LABS: African American GFR (CKD) 82.4 (60.0-200.0); Anion Gap 11.1 mmol/L (4.00-12.00); BUN/Creat Ratio 25.45 Ratio (12.00-20.00); Calcium 9.2 mg/dL (8.7-10.3); Carbon Dioxide 25.9 mmol/L (21.6-31.8); Non-African American GFR(CKD) 71.1 (60.0-200.0); Potassium 4.2 mmol/L (3.5-5.5)
--- NOTE | 2020-10-09 14:29 | P.DS ---
Providers Date of admission: 10/06/20 04:08 Attending physician: Campbell Avilez Consults: 10/06/20 16:37 Consult Physician Routine Consulting Provider: Nehemiah Granados Consult Reason/Comments: Acute hypoxic respiratory failure Do you want consulting provider notified?: Yes Primary care physician: Deborah Marie Alyssa [place] [facility] Course: 63-year-old male was admitted seconded to COPD exacerbation patient is still having significant wheezing patient remains on IV steroids inhalational treatments. Patient is complaining of severe neck pain patient was started on [place] patient is already on IV opiates for pain. His creatinine improves patient will also be started on Toradol. Still quite a bit short of breath 10/08/2020 Patient still having expiratory wheezing, diffuse rhonchi. on room air saturating above 90% this morning. Receiving IV Solu-Medrol, antimicrobial therapy with azithromycin and Rocephin. No fevers overnight, no growth and blood cultures. creatinine improved to 1.0, with IV hydration. 10/09/2020 Patient is still has the significant wheezing saturating well on room air though patient was advised to stay in the hospital for 1 more night but insisting on discharge will be discharged on oral antibiotics and the systemic steroids. PHYSICAL EXAMINATION: GENERAL: The patient is alert and oriented x3, not in any acute distress. Obese HEENT: Pupils are round and equally reacting to light. EOMI. No scleral icterus. No conjunctival pallor. Normocephalic, atraumatic. No pharyngeal erythema. No thyromegaly. CARDIOVASCULAR: S1 and S2 present. No murmurs, rubs, or gallops. PULMONARY: Expiratory wheeze to auscultation bilaterally with diffuse scattered rhonchi GASTROINTESTINAL: bowel sounds. No palpable organomegaly. MUSCULOSKELETAL: No joint swelling or deformity. EXTREMITIES: No cyanosis, clubbing, or pedal edema. NEUROLOGICAL: Gross neurological examination did not reveal any focal deficits. SKIN: No rashes. Assessment and Plan Assessment: Plan: 1 COPD exacerbation: -Possible community-acquired pneumonia on the right side: Continues on Rocephin and azithromycin. -Acute renal failure prerenal azotemia secondary to dehydration: Improved. -Hypertension uncontrolled elevated blood pressure: Norvasc increased to 10, and hydralazine to 75 3 times a day. -BPH: Continue Flomax - chronic back pain and chronic neck pain: On Percocet Patient Condition at Discharge: Fair Plan - Discharge Summary Discharge Rx Participant: No New Discharge Prescriptions: New hydrALAZINE HCL [Apresoline] 75 mg PO TID #90 tab amLODIPine [Norvasc] 10 mg PO DAILY #30 tab predniSONE 10 mg PO DAILY #30 tab Azithromycin [Zithromax] 500 mg PO DAILY #7 tab Continue Montelukast [Singulair] 10 mg PO DAILY Finasteride [Proscar] 5 mg PO DAILY Tamsulosin HCl [Flomax] 0.4 mg PO DAILY Metoprolol Succinate (ER) [Toprol XL] 25 mg PO DAILY #30 tab.er.24h Albuterol Inhaler [Ventolin Hfa Inhaler] 2 puff INHALATION RT-QID PRN PRN Reason: Shortness Of Breath Fluticasone/Umeclidin/Vilanter [Trelegy Ellipta 100-62.5-25] 1 puff INHALATION RT-DAILY Omeprazole 20 mg PO BID Cetirizine HCl 10 mg PO DAILY oxyCODONE-APAP 10-325MG [Percocet 10-325 mg] 1 tab PO QID Allopurinol [Zyloprim] 300 mg PO DAILY buPROPion HCL [Wellbutrin XL] 300 mg PO DAILY Discontinued amLODIPine [Norvasc] 5 mg PO DAILY hydrALAZINE HCL 25 mg PO BID Discharge Medication List Montelukast [Singulair] 10 mg PO DAILY 03/16/14 [History] Finasteride [Proscar] 5 mg PO DAILY 11/18/19 [History] Tamsulosin HCl [Flomax] 0.4 mg PO DAILY 11/18/19 [History] Metoprolol Succinate (ER) [Toprol XL] 25 mg PO DAILY #30 tab.er.24h 04/14/20 [Rx] Albuterol Inhaler [Ventolin Hfa Inhaler] 2 puff INHALATION RT-QID PRN 05/22/20 [History] Fluticasone/Umeclidin/Vilanter [Trelegy Ellipta 100-62.5-25] 1 puff INHALATION RT-DAILY 05/22/20 [History] Cetirizine HCl 10 mg PO DAILY 07/14/20 [History] Omeprazole 20 mg PO BID 07/14/20 [History] oxyCODONE-APAP 10-325MG [Percocet 10-325 mg] 1 tab PO QID 08/18/20 [History] Allopurinol [Zyloprim] 300 mg PO DAILY 10/06/20 [History] buPROPion HCL [Wellbutrin XL] 300 mg PO DAILY 10/06/20 [History] Azithromycin [Zithromax] 500 mg PO DAILY #7 tab 10/09/20 [Rx] amLODIPine [Norvasc] 10 mg PO DAILY #30 tab 10/09/20 [Rx] hydrALAZINE HCL [Apresoline] 75 mg PO TID #90 tab 10/09/20 [Rx] predniSONE 10 mg PO DAILY #30 tab 10/09/20 [Rx] Follow up Appointment(s)/Referral(s): Nehemiah Granados MD [STAFF PHYSICIAN] - 1 Week Deborah Shah III, MD [Primary Care Provider] - 3 Days Discharge Disposition: HOME SELF-CARE
== END 2020-10-09 14:55 | disposition home or self-care (01) | DRG 193 ==
LOC: EC 01:55 → 4SSUR 04:08
PROVIDERS: ADMIT Hospitalist; ATTEND Hospitalist
DX: J15.9 Unspecified bacterial pneumonia (principal); J96.21 Acute and chronic respiratory failure with hypoxia; N17.9 Acute kidney failure, unspecified; I11.9 Hypertensive heart disease without heart failure; J43.9 Emphysema, unspecified; F31.9 Bipolar disorder, unspecified; Z20.822 Contact with and (suspected) exposure to COVID-19; J20.9 Acute bronchitis, unspecified; E86.0 Dehydration; G47.33 Obstructive sleep apnea (adult) (pediatric); N40.0 Benign prostatic hyperplasia without lower urinary tract symptoms; F41.0 Panic disorder [episodic paroxysmal anxiety]; K21.9 Gastro-esophageal reflux disease without esophagitis; M54.2 Cervicalgia; M54.9 Dorsalgia, unspecified; G89.29 Other chronic pain; M19.90 Unspecified osteoarthritis, unspecified site; E66.9 Obesity, unspecified; Z68.29 Body mass index [BMI] 29.0-29.9, adult; Z79.891 Long term (current) use of opiate analgesic; Z79.51 Long term (current) use of inhaled steroids; Z79.899 Other long term (current) drug therapy; Z87.891 Personal history of nicotine dependence; Z86.79 Personal history of other diseases of the circulatory system; Z90.89 Acquired absence of other organs; Z90.49 Acquired absence of other specified parts of digestive tract; Z87.19 Personal history of other diseases of the digestive system; Z86.69 Personal history of other diseases of the nervous system and sense organs; Z87.2 Personal history of diseases of the skin and subcutaneous tissue; Z91.010 Allergy to peanuts; Z91.048 Other nonmedicinal substance allergy status; Z71.3 Dietary counseling and surveillance; Z82.5 Family history of asthma and other chronic lower respiratory diseases; Z82.3 Family history of stroke
CPT/HCPCS: 36415; 71046; 80048; 80053; 82550; 83605; 83615; 83735; 83880; 84484; 85025; 85027; 85610; 85730; 86140; 87040; 87635; 93005; 94640; 94760; 96361; 96365; 96366; 96372; 96375; 96376; 99285

== ENCOUNTER 2020-10-14 13:49 | Inpatient (IN) | payer MEDICARE, OTHER ==
[2020-10-14 13:54] VITALS: TEMP 97.9
[2020-10-14] MEDS ORDERED: IPRATROPIUM 0.5 MG/2.5 ML NEBU INHALATION STA (14:24)
[2020-10-14] MEDS ORDERED: ALBUTEROL NEBULIZED 2.5 MG/3 ML INHALATION STA (14:24)
[2020-10-14] MEDS ORDERED: methylPREDNISolone SOD SUCCI 125 MG/2 ML VIAL IV STA (14:24)
[2020-10-14] MEDS ORDERED: KETOROLAC 15 MG/ML 1 ML VIAL IVP STA (14:25)
[2020-10-14 14:47] LABS: Basophils # (A) 0.1 k/uL (0-0.2); Basophils % (A) 0 %; Eosinophils # (A) 0.2 k/uL (0-0.7); Eosinophils % (A) 2 %; HCT 36.5 % (39.0-53.0); Lymphocytes # (A) 0.9 k/uL (1.0-4.8); Lymphocytes % (A) 7 %; MCH 29.5 pg (25.0-35.0); MCV 89.3 fL (80.0-100.0); Mean Platelet Volume 7.1; Monocytes # (A) 0.5 k/uL (0-1.0); Monocytes % (A) 4 %; Neutrophils % (A) 86 %; Platelet Count 209 k/uL (150-450); RBC 4.09 m/uL (4.30-5.90); RDW 15.7 % (11.5-15.5); WBC 12.8 k/uL (3.8-10.6)
[2020-10-14 14:58] LABS: ALT 20 U/L (4-49); AST 23 U/L (17-59); African American GFR (CKD) >90 (>60 ml/min/1.73 sqM); Alkaline Phosphatase 79 U/L (38-126); Anion Gap 7 mmol/L; Blood Urea Nitrogen 21 mg/dL (9-20); Calcium 9.2 mg/dL (8.4-10.2); Carbon Dioxide 26 mmol/L (22-30); Chloride 106 mmol/L (98-107); Glucose 103 mg/dL (74-99); Non-African American GFR(CKD) >90 (>60 ml/min/1.73 sqM); Potassium 3.9 mmol/L (3.5-5.1); Sodium 139 mmol/L (137-145); Total Bilirubin 0.5 mg/dL (0.2-1.3); Total Protein 6.1 g/dL (6.3-8.2)
[2020-10-14 15:04] LABS: Prothrombin Time 10.6 sec (9.0-12.0)
[2020-10-14 15:07] LABS: Partial Thromboplastin Time 20.3 sec (22.0-30.0)
--- NOTE | 2020-10-14 15:11 | XR ---
EXAMINATION TYPE: XR chest 2V DATE OF EXAM: 10/14/2020 COMPARISON: Chest x-ray [address] chest July 30, 2020. HISTORY: Difficulty in breathing. TECHNIQUE: Frontal and lateral views of the chest are obtained. FINDINGS: There is chronic parenchymal change with areas of increased opacity throughout the right l jah redemonstrated. New areas of increased opacity left lower lung. Somewhat low lung volumes redemo nstrated. The cardiac silhouette size is stable and mildly enlarged. The osseous structures are int act. IMPRESSION: Persistent focal right longer acute infiltrates with developing left lower lung acute inf iltrates, correlate for covid-19 infection advised.
[2020-10-14 15:47] VITALS: BP 114/81; PULSE 92; RESP 23
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
[2020-10-14] MEDS ORDERED: methylPREDNISolone SOD SUCCI 125 MG/2 ML VIAL IV SCH (18:00)
[2020-10-14] MEDS ORDERED: IPRATROPIUM-ALBUTEROL 3 ML NEB INHALATION SCH (20:00)
[2020-10-15] MEDS ORDERED: PIPERACILLIN-TAZOBACTAM 3.375 GM in SODIUM CHLORIDE 0.9% 100 ML IVPB SCH ×2
== END 2020-10-14 18:25 | disposition left against medical advice (07) | DRG 193 ==
LOC: EC 13:49 → 4SSUR 16:28
PROVIDERS: ADMIT Hospitalist; ATTEND Hospitalist
DX: J18.9 Pneumonia, unspecified organism (principal); J96.01 Acute respiratory failure with hypoxia; J44.0 Chronic obstructive pulmonary disease with (acute) lower respiratory infection; J44.1 Chronic obstructive pulmonary disease with (acute) exacerbation; J45.901 Unspecified asthma with (acute) exacerbation; I48.92 Unspecified atrial flutter; N17.9 Acute kidney failure, unspecified; Z87.891 Personal history of nicotine dependence; Z20.822 Contact with and (suspected) exposure to COVID-19; F31.9 Bipolar disorder, unspecified; F41.0 Panic disorder [episodic paroxysmal anxiety]; I10 Essential (primary) hypertension; N40.0 Benign prostatic hyperplasia without lower urinary tract symptoms; L71.9 Rosacea, unspecified; G89.29 Other chronic pain; M54.9 Dorsalgia, unspecified; K21.9 Gastro-esophageal reflux disease without esophagitis; G47.33 Obstructive sleep apnea (adult) (pediatric); Z99.89 Dependence on other enabling machines and devices; F40.240 Claustrophobia; E86.0 Dehydration; J20.9 Acute bronchitis, unspecified; G43.909 Migraine, unspecified, not intractable, without status migrainosus; R13.10 Dysphagia, unspecified; Z86.010 Personal history of colon polyps; Z87.19 Personal history of other diseases of the digestive system; Z82.5 Family history of asthma and other chronic lower respiratory diseases; Z82.3 Family history of stroke; Z79.4 Long term (current) use of insulin; Z79.891 Long term (current) use of opiate analgesic; Z79.899 Other long term (current) drug therapy; Z86.73 Personal history of transient ischemic attack (TIA), and cerebral infarction without residual deficits; Z91.010 Allergy to peanuts; Z90.49 Acquired absence of other specified parts of digestive tract
CPT/HCPCS: 36415; 71046; 80053; 83605; 83735; 84484; 85025; 85610; 85730; 87635; 93005; 94640; 96361; 96374; 96375; 99285

== ENCOUNTER 2020-10-26 08:20 | Emergency (ER) | payer MEDICARE, OTHER ==
[2020-10-26 08:25] VITALS: TEMP 97.9
[2020-10-26] MEDS ORDERED: LORazepam 2 MG/ML INJ IM STA ×2 (08:46→08:48)
[2020-10-26] MEDS ORDERED: ORPHENADRINE 30 MG/ML 2 ML VIAL IM STA (08:47)
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
[2020-10-26] MEDS ORDERED: IPRATROPIUM-ALBUTEROL 3 ML NEB INHALATION STA (09:30)
[2020-10-26] MEDS ORDERED: HYDROcodone/APAP 5-325MG 1 EACH TAB PO STA (09:30)
[2020-10-26 10:24] VITALS: BP 159/76; PULSE 82; RESP 18
== END 2020-10-26 10:24 | disposition home or self-care (01) ==
LOC: EC 08:20
DX: J44.9 Chronic obstructive pulmonary disease, unspecified (principal); F41.9 Anxiety disorder, unspecified; G89.29 Other chronic pain; M54.9 Dorsalgia, unspecified; F32.9 Major depressive disorder, single episode, unspecified; K21.9 Gastro-esophageal reflux disease without esophagitis; I10 Essential (primary) hypertension; M19.90 Unspecified osteoarthritis, unspecified site; Z87.891 Personal history of nicotine dependence; Z79.899 Other long term (current) drug therapy
CPT/HCPCS: 94640; 99283; 96372; J2060; J2360

== ENCOUNTER 2020-12-02 11:26 | Emergency (ER) | payer MEDICARE, OTHER ==
[2020-12-02 11:38] VITALS: BP 119/85; PULSE 80; RESP 18; TEMP 97.7
--- NOTE | 2020-12-02 12:53 | XR ---
EXAMINATION TYPE: XR chest 2V DATE OF EXAM: 12/02/2020 COMPARISON: Chest x-ray October 14, 2020 HISTORY: Cough and dyspnea. TECHNIQUE: Frontal and lateral views of the chest are obtained. FINDINGS: There is no new Suspicious focal air space opacity, pleural effusion, or pneumothorax seen . The cardiac silhouette size is enlarged. The osseous structures are intact. IMPRESSION: Cardiomegaly without acute pulmonary process identified on current study.
[2020-12-02 12:57] LABS: Basophils # (A) 0.1 k/uL (0-0.2); Basophils % (A) 1 %; Eosinophils # (A) 0.2 k/uL (0-0.7); Eosinophils % (A) 3 %; HCT 42.4 % (39.0-53.0); HGB 14.5 gm/dL (13.0-17.5); Lymphocytes # (A) 1.3 k/uL (1.0-4.8); Lymphocytes % (A) 19 %; MCH 29.9 pg (25.0-35.0); MCHC 34.1 g/dL (31.0-37.0); MCV 87.5 fL (80.0-100.0); Mean Platelet Volume 6.6; Monocytes # (A) 0.6 k/uL (0-1.0); Monocytes % (A) 9 %; Neutrophils # (A) 4.5 k/uL (1.3-7.7); Neutrophils % (A) 66 %; Platelet Count 205 k/uL (150-450); RBC 4.84 m/uL (4.30-5.90); RDW 14.8 % (11.5-15.5); WBC 6.8 k/uL (3.8-10.6)
[2020-12-02 13:07] LABS: Calcium 9.8 mg/dL (8.4-10.2); Potassium 4.1 mmol/L (3.5-5.1)
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
== END 2020-12-02 14:39 | disposition home or self-care (01) ==
LOC: EC 11:26
DX: J20.9 Acute bronchitis, unspecified (principal); J44.1 Chronic obstructive pulmonary disease with (acute) exacerbation; F41.9 Anxiety disorder, unspecified; F32.9 Major depressive disorder, single episode, unspecified; I10 Essential (primary) hypertension; K21.9 Gastro-esophageal reflux disease without esophagitis; M19.90 Unspecified osteoarthritis, unspecified site; N40.0 Benign prostatic hyperplasia without lower urinary tract symptoms; G47.33 Obstructive sleep apnea (adult) (pediatric); F12.90 Cannabis use, unspecified, uncomplicated; Z99.81 Dependence on supplemental oxygen; Z90.49 Acquired absence of other specified parts of digestive tract; Z87.891 Personal history of nicotine dependence; Z87.19 Personal history of other diseases of the digestive system
CPT/HCPCS: 36415; 71046; 80048; 85025; 87636; 99283

== ENCOUNTER 2020-12-07 10:58 | Inpatient (IN) | payer MEDICARE, OTHER ==
[2020-12-07] MEDS ORDERED: IPRATROPIUM 0.5 MG/2.5 ML NEBU INHALATION STA (11:50)
[2020-12-07] MEDS ORDERED: methylPREDNISolone SOD SUCCI 125 MG/2 ML VIAL IV STA (11:50)
[2020-12-07] MEDS ORDERED: ALBUTEROL NEBULIZED 2.5 MG/3 ML INHALATION STA (11:50)
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
[2020-12-07 12:26] LABS: Basophils # (A) 0.1 k/uL (0-0.2); Basophils % (A) 1 %; Eosinophils # (A) 0.4 k/uL (0-0.7); Eosinophils % (A) 5 %; HCT 34.9 % (39.0-53.0); HGB 12.1 gm/dL (13.0-17.5); Lymphocytes # (A) 1.3 k/uL (1.0-4.8); Lymphocytes % (A) 15 %; MCH 30.8 pg (25.0-35.0); MCHC 34.8 g/dL (31.0-37.0); MCV 88.4 fL (80.0-100.0); Mean Platelet Volume 6.8; Monocytes # (A) 0.6 k/uL (0-1.0); Monocytes % (A) 7 %; Neutrophils # (A) 6.3 k/uL (1.3-7.7); Neutrophils % (A) 72 %; Platelet Count 216 k/uL (150-450); RBC 3.95 m/uL (4.30-5.90); WBC 8.7 k/uL (3.8-10.6)
[2020-12-07 12:40] LABS: Calcium 9.1 mg/dL (8.4-10.2); Magnesium 2.1 mg/dL (1.6-2.3); Potassium 4.1 mmol/L (3.5-5.1); Total Bilirubin 0.5 mg/dL (0.2-1.3); Total Protein 6.1 g/dL (6.3-8.2)
[2020-12-07 12:41] LABS: INR 0.9 (<1.2); Partial Thromboplastin Time 22.8 sec (22.0-30.0); Prothrombin Time 9.7 sec (9.0-12.0)
--- NOTE | 2020-12-07 12:53 | XR ---
EXAMINATION TYPE: XR hand complete LT DATE OF EXAM: 12/07/2020 COMPARISON: None HISTORY: Trauma fall pain TECHNIQUE: Three-view left hand FINDINGS: No acute fracture or dislocation is evident. Joint spaces are preserved. Soft tissues are n ormal. Follow up exams can be performed 7-10 days from acute trauma for continued pain. IMPRESSION: 1. No acute osseous abnormality.
--- NOTE | 2020-12-07 12:54 | XR ---
EXAMINATION TYPE: XR chest 2V DATE OF EXAM: 12/07/2020 COMPARISON: 12/02/2020 INDICATION: Difficulty breathing and dyspnea TECHNIQUE: Frontal and lateral views of the chest are obtained. FINDINGS: The heart size is normal. The pulmonary vasculature is normal. The lungs are clear. IMPRESSION: 1. No acute pulmonary process.
--- NOTE | 2020-12-07 13:25 | CT ---
EXAMINATION TYPE: CT brain kierstenine wo con DATE OF EXAM: 12/07/2020 COMPARISON: 02/07/2018 HISTORY: Fall, head injury CT DLP: 1582.5 mGycm, Automated exposure control for dose reduction was used. CONTRAST: None CT of the brain is performed utilizing 3 mm thick sections through the posterior fossa and 3 mm thick sections through the remaining calvarium. Study is performed within 24 hours of arrival to the hospital. No abnormal hyperdensity is present to suggest an acute intracranial hemorrhage. No mass lesion is evident. No acute infarcts are evident. Ventricles and sulci are appropriate for the patient age. Mild mucosal thickenings within maxillary sinuses. Remaining paranasal sinuses and mastoid air cells are clear. IMPRESSIONS: 1. No acute intracranial process. CT cervical spine. COMPARISON: 08/11/2018 CT of the cervical spine is performed in the axial plane at 2 mm thick sections. Reconstructed image s in the coronal, and sagittal plane are reviewed on the computer. No acute fractures are evident. There is a cervical kyphosis centered at approximately C4-5. There is loss of disc height C4-5 C5-6 C6-7. Mild loss of disc height within the remaining cervical s pine. Vertebral body heights are preserved. No spinal canal stenosis is evident. Facet hypertrophy is present on the left at C2-3, C3-4. Foraminal narrowing is present at C5-6 due t o uncovertebral joint hypertrophy. IMPRESSIONS: 1. No acute osseous abnormality. 2. Cervical kyphosis which is chronic. 3. Chronic degenerative disc changes and facet hypertrophy discussed above.
[2020-12-07] MEDS ORDERED: IPRATROPIUM-ALBUTEROL 3 ML NEB INHALATION PRN (15:45)
[2020-12-07] MEDS: predniSONE 20 MG TAB PO SCH (15:53)
[2020-12-07] MEDS: SODIUM CHLORIDE 0.9% 1,000 ML IV SCH (15:56)
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
[2020-12-07] MEDS ORDERED: IPRATROPIUM-ALBUTEROL 3 ML NEB INHALATION SCH (16:00)
[2020-12-07] MEDS: IPRATROPIUM-ALBUTEROL 3 ML NEB INHALATION SCH ×2 (17:05→21:08)
[2020-12-07] MEDS: traMADol 50 MG TAB PO PRN ×2 (17:55→23:42)
[2020-12-07] MEDS: HEPARIN SODIUM,PORCINE/PF 5,000 UNIT/0.5 ML SYRINGE SQ SCH ×2 (17:55→23:43)
[2020-12-07] MEDS ORDERED: methylPREDNISolone SOD SUCCI 125 MG/2 ML VIAL IV SCH (18:00)
[2020-12-07] MEDS: BUDESONIDE 0.5 MG/2 ML NEBU INHALATION SCH (21:08)
[2020-12-07] MEDS: busPIRone HCl 5 MG TAB PO SCH (21:32)
[2020-12-07] MEDS: DOXYCYCLINE 100 MG CAP PO SCH (21:33)
[2020-12-08] MEDS: SODIUM CHLORIDE 0.9% 1,000 ML IV SCH ×3 (03:36→19:28)
[2020-12-08] MEDS: traMADol 50 MG TAB PO PRN (05:59)
[2020-12-08] MEDS: BUDESONIDE 0.5 MG/2 ML NEBU INHALATION SCH ×2 (08:13→20:50)
[2020-12-08] MEDS: IPRATROPIUM-ALBUTEROL 3 ML NEB INHALATION SCH ×4 (08:13→20:50)
[2020-12-08] MEDS: LORATADINE 10 MG TAB PO SCH (08:39)
[2020-12-08] MEDS: DOXYCYCLINE 100 MG CAP PO SCH ×2 (08:39→19:28)
[2020-12-08] MEDS: TAMSULOSIN 0.4 MG CAP.ER.24H PO SCH (08:39)
[2020-12-08] MEDS: predniSONE 20 MG TAB PO SCH (08:39)
[2020-12-08] MEDS: allopurinoL 300 MG TAB PO SCH (08:39)
[2020-12-08] MEDS: busPIRone HCl 5 MG TAB PO SCH ×2 (08:39→19:27)
[2020-12-08] MEDS: METOPROLOL SUCCINATE (ER) 25 MG TAB.ER.24H PO SCH (08:40)
[2020-12-08] MEDS: MONTELUKAST 10 MG TAB PO SCH (08:40)
[2020-12-08] MEDS: PANTOPRAZOLE 40 MG TABLET PO SCH (08:40)
[2020-12-08] MEDS: DULoxetine HCL 60 MG CAPSULE.DR PO SCH (08:40)
[2020-12-08] MEDS: FINASTERIDE 5 MG TAB PO SCH (08:40)
[2020-12-08] MEDS: HEPARIN SODIUM,PORCINE/PF 5,000 UNIT/0.5 ML SYRINGE SQ SCH ×3 (08:43→19:27)
[2020-12-08 09:03] LABS: HCT 32.4 % (39.6-50.0); HGB 10.5 g/dL (13.0-17.0); MCH 29.2 pg (27.0-32.0); MCHC 32.4 g/dL (32.0-37.0); Mean Platelet Volume 9.9 fL (9.5-12.2); Platelet Count 187 X 10*3/uL (140-440); RDW 14.6 % (11.5-14.5); WBC 6.42 X 10*3/uL (4.50-10.00)
[2020-12-08] MEDS: oxyCODONE-APAP 10-325MG 1 EACH TAB PO PRN ×3 (09:32→21:12)
[2020-12-08 09:38] LABS: African American GFR (CKD) 73.6 (60.0-200.0); Anion Gap 12.1 mmol/L (4.00-12.00); BUN/Creat Ratio 26.67 Ratio (12.00-20.00); Calcium 8.9 mg/dL (8.7-10.3); Carbon Dioxide 20.9 mmol/L (21.6-31.8); Non-African American GFR(CKD) 63.5 (60.0-200.0); Potassium 4.2 mmol/L (3.5-5.5)
--- NOTE | 2020-12-08 12:19 | P.PN ---
Subjective Patient is admitted after syncope patient will also company of her brother does have history of COPD quit smoking years ago. Patient was comparing of cough with the pino sputum production. Upon examination patient has diffuse rhonchi with expiratory wheezing. Patient says still feels lightheaded patient is lying creatinine was within normal limits which he is now elevated to 1.5 patient denied any fever chills but patient had diarrhea yesterday about 10 episodes. This diarrhea now resolved. Patient denied any nausea vomiting. 12/08/2020 His serum creatinine improved to 1.3. Patient was a started on his home regimen of pain medications for his back pain. Patient is still having diffuse bilateral rhonchi. Patient is not requiring any oxygen. Patient says he quit smoking years ago. Patient will be continued on IV fluids. I do not believe patient will need any further workup with echocardiogram for his syncope as her dehydration is a clear reason for his syncope. Patient has tremors this is probably secondary to tramadol which is being discontinued can be related to steroids as well. We'll discuss reviewed tramadol monitor him if he continues to have tremor will need further workup. Patient is also weak patient the is awaiting PT and OT evaluation after that evaluation his disposition depending on their assessment. Patient most probably can be discharged tomorrow. Constitutional: Denied any fatigue denied any fever. Cardio vascular: denied any chest pain, palpitations Gastrointestinal denied any nausea vomiting Pulmonary: Still has some shortness of breath and cough Neurologic denied any new focal deficits All inpatient medications were reviewed and appropriate changes in these me dications as dictated in the interval history and assessment and plan. Objective - Vital Signs Vital signs: Vital Signs Temp 98.6 F 12/08/20 07:00 Pulse 90 12/08/20 12:09 Resp 18 12/08/20 12:09 BP 151/68 12/08/20 07:00 Pulse Ox 95 12/08/20 08:13 Intake & Output 12/07/20 12/08/20 12/08/20 18:59 06:59 18:59 Intake Total 240 480 980 Balance 240 480 980 Weight 90.718 kg Intake: IV 800 Sodium Chloride 0.9% 1, 800 000 ml @ 100 mls/hr IV . Q10H [facility] Rx#:[id number] Oral 240 480 180 Other: # Voids 1 1 4 # Bowel Movements 1 - Exam PHYSICAL EXAMINATION: GENERAL: The patient is alert and oriented x3, not in any acute distress. Obese HEENT: Pupils are round and equally reacting to light. EOMI. No scleral icterus. No conjunctival pallor. Normocephalic, atraumatic. No pharyngeal erythema. No thyromegaly. CARDIOVASCULAR: S1 and S2 present. No murmurs, rubs, or gallops. PULMONARY: He has bilateral rhonchi with expiratory wheezing ABDOMEN: Soft, nontender, nondistended, normoactive bowel sounds. No palpable organomegaly. MUSCULOSKELETAL: No joint swelling or deformity. EXTREMITIES: No cyanosis, clubbing, or pedal edema. NEUROLOGICAL: Gross neurological examination did not reveal any focal deficits. SKIN: No rashes. - Labs CBC & Chem 7: 12/08/20 06:24 12/08/20 06:24 Labs: Abnormal Lab Results - Last 24 Hours (Table) 12/07/20 12/07/20 12/07/20 Range/Units 12:07 12:07 12:07 RBC 3.95 L (4.30-5.90) m/uL Hgb 12.1 L (13.0-17.5) gm/dL Hct 34.9 L (39.0-53.0) % RDW (11.5-14.5) % Chloride 109 H (98-107) mmol/L Carbon Dioxide (21.6-31.8) mmol/L Anion Gap (4.00-12.00) mmol/L BUN 33 H (9-20) mg/dL Creatinine 1.71 H (0.66-1.25) mg/dL BUN/Creatinine Ratio (12.00-20.00) Ratio Plasma Lactic Acid Aman 0.6 L (0.7-2.0) mmol/L Total Protein 6.1 L (6.3-8.2) g/dL 12/08/20 12/08/20 Range/Units 06:24 06:24 RBC 3.60 L (4.30-5.90) m/uL Hgb 10.5 L (13.0-17.5) gm/dL Hct 32.4 L (39.0-53.0) % RDW 14.6 H (11.5-14.5) % Chloride 111 H (98-107) mmol/L Carbon Dioxide 20.9 L (21.6-31.8) mmol/L Anion Gap 12.10 H (4.00-12.00) mmol/L BUN 32.0 H (9-20) mg/dL Creatinine (0.66-1.25) mg/dL BUN/Creatinine Ratio 26.67 H (12.00-20.00) Ratio Plasma Lactic Acid Aman (0.7-2.0) mmol/L Total Protein (6.3-8.2) g/dL Assessment and Plan Plan: Syncope: Secondary to dehydration patient does have history of atrial flutter presently sinus rhythm no significant events on telemetry overnight patient's creatinine improved will cut down the IV fluids to 75 mL/h continue for 1 more day repeat basic metabolic profile tomorrow. Dehydration secondary to recent diarrhea. -Acute renal failure: Secondary to dehydration as mentioned above which is again secondary to diarrhea -COPD with acute exacerbation patient appears to have bronchitis patient will be started on oral steroids inhalational treatments and the doxycycline for bronchitis -Hypertension -Benign prostatic hypertrophy -Sleep apnea uses CPAP machine which will be continued -Gastroesophageal reflux disease -Chronic back pain -Depression -DVT prophylaxis with heparin GI prophylaxis Prilosec
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
[2020-12-09] MEDS: SODIUM CHLORIDE 0.9% 1,000 ML IV SCH (01:08)
[2020-12-09] MEDS: oxyCODONE-APAP 10-325MG 1 EACH TAB PO PRN ×4 (02:37→20:06)
[2020-12-09] MEDS: IPRATROPIUM-ALBUTEROL 3 ML NEB INHALATION SCH ×4 (07:36→19:52)
[2020-12-09] MEDS: BUDESONIDE 0.5 MG/2 ML NEBU INHALATION SCH ×2 (07:36→19:52)
[2020-12-09] MEDS: HEPARIN SODIUM,PORCINE/PF 5,000 UNIT/0.5 ML SYRINGE SQ SCH ×3 (07:51→20:07)
[2020-12-09] MEDS: TAMSULOSIN 0.4 MG CAP.ER.24H PO SCH (07:52)
[2020-12-09] MEDS: DULoxetine HCL 60 MG CAPSULE.DR PO SCH (07:52)
[2020-12-09] MEDS: allopurinoL 300 MG TAB PO SCH (07:52)
[2020-12-09] MEDS: MONTELUKAST 10 MG TAB PO SCH (07:52)
[2020-12-09] MEDS: busPIRone HCl 5 MG TAB PO SCH ×3 (07:52→20:08)
[2020-12-09] MEDS: DOXYCYCLINE 100 MG CAP PO SCH ×2 (07:52→20:06)
[2020-12-09] MEDS: PANTOPRAZOLE 40 MG TABLET PO SCH (07:52)
[2020-12-09] MEDS: METOPROLOL SUCCINATE (ER) 25 MG TAB.ER.24H PO SCH (07:53)
[2020-12-09] MEDS: LORATADINE 10 MG TAB PO SCH (07:53)
[2020-12-09] MEDS: FINASTERIDE 5 MG TAB PO SCH (07:53)
[2020-12-09] MEDS: predniSONE 20 MG TAB PO SCH (07:53)
--- NOTE | 2020-12-09 09:07 | P.PN ---
<Dodd,Nate - Last Filed: 12/09/20 09:04> Subjective Progress Note Date: 12/09/20 Principal diagnosis: -degenerative disc disease -facet hypertrophy C2-C3 C3-C4 -cervical kyphosis -left hand ecchymosis Upon entering room this morning patient is lying supine in bed. Patient says he is feeling the same as yesterday. He says he has been up out of bed several times throughout the day and can ambulate independently. Patient says he has been having bowel movements as well as passing gas. Patient says he is ready to go forward with MRI today. He denies having any pacemaker. Patient denies any chest pain, shortness of breath, fever, chills, nausea, vomiting, change in vision. Patient denies any saddle anesthesia. Objective - Vital Signs Vital signs: Vital Signs Temp 97.6 F 12/09/20 07:00 Pulse 84 12/09/20 07:49 Resp 18 12/09/20 07:00 BP 160/76 12/09/20 07:00 Pulse Ox 96 12/09/20 07:00 Intake & Output 12/08/20 12/09/20 12/09/20 18:59 06:59 18:59 Intake Total 980 Balance 980 Intake: IV 800 Sodium Chloride 0.9% 1, 800 000 ml @ 75 mls/hr IV . [id number] [facility] Rx#:[id number] Oral 180 Other: # Voids 4 1 # Bowel Movements 1 - Exam skin inspection: ecchymosis present in left hand along the third and fourth digits between PIP joints and carpal bones. He is able to flex both DIP and PIP joints. He can extend both digits as well. Radial and ulnar pulses and left hand are intact 2+. Cap refill present below 3 seconds. upon review of hand x- ray, I consulted with my physician and we agree that there are no urgent/surgical needs. negative for ecchymosis along C-spine. Negative for erythema along spine. Sensation: Sensation is intact distally in left hand as well as digits. sigrid miller has full sensation throughout spine to touch. sensation is intact bilaterally in upper extremities and bilaterally in lower extremities palpation: there is tenderness to palpation of third and fourth digit in left hand along the metacarpal and proximal phalanx of the third and fourth digits. no bony deformity/crepitus noted on exam of left hand. there is minimal tenderness to palpation of cervical spine. negative Homans bilaterally. motor: exam is limited based on patient lying semirecumbent in bed. Patient is able forward elevate both legs off bed. Patient is able to raise arms bilaterally. throughout the motor exam patient arms and legs do display a tremor. reflexes: patellar reflexes are hyperreflexive bilaterally. Positive clonus upon dorsiflexion of feet bilaterally. positive Evy's - Labs CBC & Chem 7: 12/08/20 06:24 12/08/20 06:24 Labs: Abnormal Lab Results - Last 24 Hours (Table) 12/08/20 12/08/20 Range/Units 06:24 06:24 RBC 3.60 L (4.40-5.60) X 10*6/uL Hgb 10.5 L (13.0-17.0) g/dL Hct 32.4 L (39.6-50.0) % RDW 14.6 H (11.5-14.5) % Chloride 111 H (96-109) mmol/L Carbon Dioxide 20.9 L (21.6-31.8) mmol/L Anion Gap 12.10 H (4.00-12.00) mmol/L BUN 32.0 H (9.0-27.0) mg/dL BUN/Creatinine Ratio 26.67 H (12.00-20.00) Ratio Assessment and Plan Assessment: 1. degenerative disc disease 2. facet hypertrophy C2-C3 C3-C4 3. cervical kyphosis 4. left hand ecchymosis Plan: 1. cervical kyphosis; facet hypertrophy; DDD - MRI without contrast of cervic al spine ordered and awaiting completion to rule out myelopathy. throughout physical exam, patient displayed tremors and positive Evy's as well as positive clonus and hyperreflexia of patellar reflexes 2. left-hand ecchymosis- patient can keep fingers suha taped to stabilize the digits. patient may follow-up in outpatient setting in about 7-[address] Timmons 3. appreciate medical management Time with Patient: Less than 30 <Deven Berg - Last Filed: 12/09/20 10:03> Objective - Vital Signs Vital signs: Vital Signs Temp 97.6 F 12/09/20 07:00 Pulse 84 12/09/20 07:49 Resp 18 12/09/20 07:00 BP 160/76 12/09/20 07:00 Pulse Ox 96 12/09/20 07:00 Intake & Output 12/08/20 12/09/20 12/09/20 18:59 06:59 18:59 Intake Total 980 Balance 980 Intake: IV 800 Sodium Chloride 0.9% 1, 800 000 ml @ 75 mls/hr IV . [id number] [facility] Rx#:[id number] Oral 180 Other: # Voids 4 1 # Bowel Movements 1 - Labs CBC & Chem 7: 12/08/20 06:24 12/08/20 06:24 Assessment and Plan Assessment: 1. Cervical spondylotic myelopathy 2. C3-6 spondylosis with stenosis and radiculopathy 3. Gait instability 4. UE weakness 5. L hand contusion 6. Complex medical history Plan: 1. Await MRI of C spine 2. Ice and rest to left hand 3. Medical management 4. Recommend decadron 5. PT/OT 6. Further recs pending imaging
[2020-12-09] MEDS ORDERED: ALPRAZolam 0.5 MG TAB PO STA (10:05)
--- NOTE | 2020-12-09 11:53 | P.PN ---
Subjective Progress Note Date: 12/09/20 Principal diagnosis: Near syncopal episode likely related to multifactorial processes related to severe coughing and respiratory, with episode of atrial flutter, dehydration and acute kidney injury Acute COPD exacerbation Acute kidney injury likely related to volume depletion dehydration Atrial flutter of unclear etiology recommend cardiovascular workup may very well be associated with respiratory issues 12/09/2020, patient seen eval examined during the rounds very short of breath on activity and exertion very congested, patient is resting pulmonary toilet and suctioning with bronchoscopy, was ejected explained to the patient will tentatively schedule for tomorrow This is a 65-year-old male seen eval examined on 6 floor patient came into the hospital with progressive cough shortness of breath and wheezing, patient had the near-syncopal episode with a fall, also noted to be in atrial flutter, patient is feeling very tight and wheezy unable to expectorate feel congested in the lungs patient has been evaluated previously and might Y lead and bronchoscopy that seems to be helpful for diagnostic and therapeutic relief, patient considering and want to have the same intervention as he cannot cough out due to his size and poor lung compliance, patient also appears to be more dehydrated with relatively higher creatinine level of 1.7, due to poor by mouth intake, patient has significant degree of sleep disorder breathing and sleep apnea but has declined CPAP or BiPAP evaluation and intervention, chest x-ray is unremarkable Objective - Vital Signs Vital signs: Vital Signs Temp 97.6 F 12/09/20 07:00 Pulse 80 12/09/20 11:21 Resp 18 12/09/20 07:00 BP 160/76 12/09/20 07:00 Pulse Ox 96 12/09/20 07:00 Intake & Output 12/08/20 12/09/20 12/09/20 18:59 06:59 18:59 Intake Total 980 Output Total 180 Balance 980 -180 Intake: IV 800 Sodium Chloride 0.9% 1, 800 000 ml @ 75 mls/hr IV . [id number] [facility] Rx#:[id number] Oral 180 Output: Urine 180 Other: # Voids 4 1 # Bowel Movements 1 - Exam - Constitutional General appearance: disheveled, mild distress, obese - EENT Eyes: EOMI, PERRLA Ears: bilateral: normal - Neck Carotids: bilateral: upstroke normal Thyroid: bilateral: normal size - Respiratory Respiratory: bilateral: diminished, wheezing (Both inspiratory and expiratory) - Cardiovascular Rhythm: regular Heart sounds: normal: S1, S2 - Gastrointestinal General gastrointestinal: normal bowel sounds - Neurologic Neurologic: CNII-XII intact - Musculoskeletal Musculoskeletal: gait normal, generalized weakness, strength equal bilaterally - Psychiatric Psychiatric: A&O x's 3, appropriate affect, intact judgment & insight - Labs CBC & Chem 7: 12/08/20 06:24 12/08/20 06:24 Assessment and Plan Assessment: Near syncopal episode likely related to multifactorial processes related to severe coughing and respiratory, with episode of atrial flutter, dehydration and acute kidney injury Acute COPD exacerbation Acute kidney injury likely related to volume depletion dehydration Atrial flutter of unclear etiology recommend cardiovascular workup may very well be associated with respiratory issues Plan: Agree with bronchodilators IV steroids Breathing treatments Deep breathing exercise incentive spirometry Evaluation of atrial flutter Patient will benefit from bronchoscopy and bronchoalveolar lavage for diagnostic and therapeutic purposes will follow closely, scheduled for tomorrow Continue gentle rehydration Further plan of care as per clinical response of the patient Time with Patient: Greater than 30
--- NOTE | 2020-12-09 14:28 | MR ---
EXAMINATION TYPE: MR cervical spine wo con DATE OF EXAM: 12/09/2020 2:15 PM COMPARISON: NONE HISTORY: Neck pain Multiplanar MultiSpin echo imaging of the cervical spine was performed. Comparison: none There is reversal of the normal cervical lordosis. C2-C3: No evidence for degenerative disc disease. No disc bulge/herniation or protrusion. No Canal stenosis. Foramina are patent bilaterally. C3-C4: No evidence for degenerative disc disease. No disc bulge/herniation or protrusion. No Canal stenosis. Foramina are patent bilaterally. C4-C5: Moderate disc desiccation noted. Mild posterior disc bulge. Effacement ventral thecal sac. Mil d constriction of the thecal sac without overt stenosis. Degenerative change of the bilateral cervica l apophyseal joints resulting in moderate bilateral foraminal encroachment. C5-C6: Moderate disc desiccation with moderate posterior disc bulge. Effacement ventral thecal sac. M ild central stenosis identified. Bilateral foraminal encroachment left greater than right. Ventral sp ondylosis. C6-C7: Moderate disc desiccation with moderate posterior disc bulge. Effacement ventral thecal sac. M ild central stenosis identified. Bilateral foraminal encroachment left greater than right. Ventral sp ondylosis. C7-T1: No evidence for degenerative disc disease. No disc bulge/herniation or protrusion. No Canal stenosis. Foramina are patent bilaterally. Cervical segments are intact. There is normal alignment. Cervical spinal cord is of normal signal. Craniovertebral junction relationships are within normal limits. T2 hemangioma. IMPRESSION: 1. Multilevel degenerative disc disease and spondylosis. Central stenosis at C5-6 and C6-7 as noted a maximo.
--- NOTE | 2020-12-09 16:04 | PN ---
PROGRESS NOTE DATE OF SERVICE: 12/09/2020 This 65-year-old gentleman with a past medical history of COPD was admitted with syncope. The patient also was complaining of back pain and neck pain. The patient had a cervical MRI after Xanax today. MRI showed multilevel DJD and spondylosis and central stenosis, C5-6 and C6-7. The patient is being closely monitored. Pulmonary, Dr. Granados, is also following the patient closely. Past medical history reviewed. REVIEW OF SYSTEMS: CARDIOVASCULAR SYSTEM: No angina, palpitations. RESPIRATORY SYSTEM: As mentioned earlier. GI: As mentioned earlier. : No dysuria or retention. NERVOUS SYSTEM: No numbness, weakness. MEDICATIONS: Current medications are reviewed and include DuoNeb, Zyloprim, Pulmicort, BuSpar, Vibramycin, Cymbalta, Proscar, heparin, Claritin. Doses are reviewed. PHYSICAL EXAMINATION: Patient is alert, oriented x3. Pulse is 72, blood pressure 153/99, respirations 16, temperature 97.1, pulse ox 98% on room air. HEENT: Conjunctivae normal. NECK: No jugular venous distention. CARDIOVASCULAR SYSTEM: S1, S2 muffled. RESPIRATORY SYSTEM: Breath sounds diminished at the bases. A few scattered rhonchi and crackles. Expiratory wheezing. Chest emphysematous. ABDOMEN: Soft, non-tender. NERVOUS SYSTEM: No focal deficit. LABS: WBC 6.2, hemoglobin 10.5, chloride is 111, and anion gap is 1200. ASSESSMENT: 1. Syncope and dehydration, present on admission. 2. Severe neck pain; possible cervical degenerative joint disease and cervical stenosis of C5-6 and C6-7. 3. Chronic obstructive pulmonary disease, acute exacerbation. 4. Acute renal failure. 5. Acute purulent tracheobronchitis. 6. Hypertension. 7. Benign prostatic hypertrophy. 8. Sleep apnea. 9. Gastroesophageal reflux disease. 10.Chronic back pain. 11.History of depression. 12.Hyperchloremia. 13.Acute renal failure with acute tubular necrosis with prerenal factors. 14.Anemia, normocytic anemia of chronic disease. 15.History of atrial flutter. 16.History of degenerative joint disease. 17.History of sleep apnea. 18.History of adenoidectomy. 19.Bowel resection. 20.Anxiety, bipolar, depression, panic disorder. 21.Gait dysfunction. RECOMMENDATIONS AND DISCUSSION: In this 65-year-old gentleman who presented with multiple complex medical issues, we will monitor the patient closely, continue the current medications, continue symptomatic treatment. Continue the bronchodilators. Otherwise, closely follow with Orthopedic Surgery and Pulmonology. Guarded prognosis because of multiple complex medical issues. Further recommendations to follow. MMKENYA / AQUILINON: [id number] /
[2020-12-09] MEDS: hydrALAZINE HCL 25 MG TAB PO SCH ×2 (17:16→20:05)
[2020-12-10] MEDS: SODIUM CHLORIDE 0.9% 1,000 ML IV SCH ×2 (00:52→15:40)
[2020-12-10] MEDS: oxyCODONE-APAP 10-325MG 1 EACH TAB PO PRN ×4 (01:07→19:44)
[2020-12-10 06:11] LABS: Basophils % (A) 0 %; Eosinophils % (A) 0 %; HCT 33.1 % (39.0-53.0); HGB 11.4 gm/dL (13.0-17.5); Lymphocytes # (A) 0.9 k/uL (1.0-4.8); Lymphocytes % (A) 23 %; MCH 30.7 pg (25.0-35.0); MCHC 34.4 g/dL (31.0-37.0); MCV 89.4 fL (80.0-100.0); Mean Platelet Volume 6.9; Monocytes # (A) 0.3 k/uL (0-1.0); Monocytes % (A) 8 %; Neutrophils # (A) 2.8 k/uL (1.3-7.7); Neutrophils % (A) 68 %; Platelet Count 150 k/uL (150-450); RBC 3.71 m/uL (4.30-5.90); RDW 15.2 % (11.5-15.5); WBC 4.1 k/uL (3.8-10.6)
[2020-12-10 06:31] LABS: African American GFR (CKD) >90 (>60 ml/min/1.73 sqM); Anion Gap 6 mmol/L; Blood Urea Nitrogen 20 mg/dL (9-20); Calcium 8.8 mg/dL (8.4-10.2); Carbon Dioxide 26 mmol/L (22-30); Chloride 110 mmol/L (98-107); Glucose 89 mg/dL (74-99); Non-African American GFR(CKD) 82 (>60 ml/min/1.73 sqM); Potassium 3.8 mmol/L (3.5-5.1); Sodium 142 mmol/L (137-145)
[2020-12-10] MEDS: PANTOPRAZOLE 40 MG TABLET PO SCH (07:10)
[2020-12-10] MEDS: TAMSULOSIN 0.4 MG CAP.ER.24H PO SCH (07:11)
[2020-12-10] MEDS: METOPROLOL SUCCINATE (ER) 25 MG TAB.ER.24H PO SCH (07:11)
[2020-12-10] MEDS: LORATADINE 10 MG TAB PO SCH (07:11)
[2020-12-10] MEDS: hydrALAZINE HCL 25 MG TAB PO SCH ×3 (07:11→19:44)
[2020-12-10] MEDS: busPIRone HCl 5 MG TAB PO SCH ×3 (07:11→19:43)
[2020-12-10] MEDS: MONTELUKAST 10 MG TAB PO SCH (07:11)
[2020-12-10] MEDS: FINASTERIDE 5 MG TAB PO SCH ×2 (07:11→07:14)
[2020-12-10] MEDS: predniSONE 20 MG TAB PO SCH (07:11)
[2020-12-10] MEDS: amLODIPine 10 MG TAB PO SCH (07:12)
[2020-12-10] MEDS: DULoxetine HCL 60 MG CAPSULE.DR PO SCH (07:12)
[2020-12-10] MEDS: allopurinoL 300 MG TAB PO SCH (07:12)
[2020-12-10] MEDS: FERROUS SULFATE 325 MG TAB PO SCH (07:12)
[2020-12-10] MEDS: DOXYCYCLINE 100 MG CAP PO SCH ×2 (07:13→20:38)
[2020-12-10] MEDS: HEPARIN SODIUM,PORCINE/PF 5,000 UNIT/0.5 ML SYRINGE SQ SCH ×3 (07:26→19:44)
[2020-12-10] MEDS: IPRATROPIUM-ALBUTEROL 3 ML NEB INHALATION SCH ×4 (07:31→19:39)
[2020-12-10] MEDS: BUDESONIDE 0.5 MG/2 ML NEBU INHALATION SCH ×2 (07:31→19:38)
--- NOTE | 2020-12-10 08:22 | P.PN ---
Subjective Progress Note Date: 12/10/20 Principal diagnosis: Near syncopal episode likely related to multifactorial processes related to severe coughing and respiratory, with episode of atrial flutter, dehydration and acute kidney injury Acute COPD exacerbation Acute kidney injury likely related to volume depletion dehydration Atrial flutter of unclear etiology recommend cardiovascular workup may very well be associated with respiratory issues 12/10/2020, patient seen eval examined during the rounds labs reviewed medications reviewed care plan discussed with the patient and staff at length, ongoing shortness of breath and congestion is present due to size patient unable to expectorate pulmonary secretions impacted we'll proceed with bronchoscopy for pulmonary toilet suctioning and cleaning also for culture in case of resistant organism is present, being planned for later on today procedure risk alternative and complication explained to the patient including possible intubation 12/09/2020, patient seen eval examined during the rounds very short of breath on activity and exertion very congested, patient is resting pulmonary toilet and suctioning with bronchoscopy, was ejected explained to the patient will tentatively schedule for tomorrow This is a 65-year-old male seen eval examined on 6 floor patient came into the hospital with progressive cough shortness of breath and wheezing, patient had t he near-syncopal episode with a fall, also noted to be in atrial flutter, patient is feeling very tight and wheezy unable to expectorate feel congested in the lungs patient has been evaluated previously and might Y lead and bronchoscopy that seems to be helpful for diagnostic and therapeutic relief, patient considering and want to have the same intervention as he cannot cough out due to his size and poor lung compliance, patient also appears to be more dehydrated with relatively higher creatinine level of 1.7, due to poor by mouth intake, patient has significant degree of sleep disorder breathing and sleep apnea but has declined CPAP or BiPAP evaluation and intervention, chest x-ray is unremarkable Objective - Vital Signs Vital signs: Vital Signs Temp 97.8 F 12/10/20 07:00 Pulse 68 12/10/20 07:53 Resp 14 12/10/20 07:00 BP 167/83 12/10/20 07:00 Pulse Ox 97 12/10/20 07:00 Intake & Output 12/09/20 12/10/20 12/10/20 18:59 06:59 18:59 Output Total 180 Balance -180 Output: Urine 180 Other: # Voids 2 2 - Exam - Constitutional General appearance: disheveled, mild distress, obese - EENT Eyes: EOMI, PERRLA Ears: bilateral: normal - Neck Carotids: bilateral: upstroke normal Thyroid: bilateral: normal size - Respiratory Respiratory: bilateral: diminished, wheezing (Both inspiratory and expiratory) - Cardiovascular Rhythm: regular Heart sounds: normal: S1, S2 - Gastrointestinal General gastrointestinal: normal bowel sounds - Neurologic Neurologic: CNII-XII intact - Musculoskeletal Musculoskeletal: gait normal, generalized weakness, strength equal bilaterally - Psychiatric Psychiatric: A&O x's 3, appropriate affect, intact judgment & insight - Labs CBC & Chem 7: 12/10/20 05:04 12/10/20 05:04 Labs: Abnormal Lab Results - Last 24 Hours (Table) 12/10/20 12/10/20 Range/Units 05:04 05:04 RBC 3.71 L (4.30-5.90) m/uL Hgb 11.4 L (13.0-17.5) gm/dL Hct 33.1 L (39.0-53.0) % Lymphocytes # 0.9 L (1.0-4.8) k/uL Chloride 110 H (98-107) mmol/L Assessment and Plan Assessment: Near syncopal episode likely related to multifactorial processes related to s evere coughing and respiratory, with episode of atrial flutter, dehydration and acute kidney injury Acute COPD exacerbation Purulent tracheobronchitis Intractable coughing Acute on chronic hypoxic hypercapnic respiratory failure Sleep disorder breathing and sleep apnea refused CPAP BiPAP machine status post UPPP Acute kidney injury likely related to volume depletion dehydration Atrial flutter of unclear etiology recommend cardiovascular workup may very well be associated with respiratory issues Plan: Agree with bronchodilators IV steroids Breathing treatments Deep breathing exercise incentive spirometry Evaluation of atrial flutter Patient will benefit from bronchoscopy and bronchoalveolar lavage for diagnostic and therapeutic purposes will follow closely, scheduled for later on today Continue gentle rehydration Further plan of care as per clinical response of the patient Time with Patient: Greater than 30
[2020-12-10] MEDS ORDERED: PROPOFOL 10 MG/ML 20 ML VIAL IV ONE (12:36)
[2020-12-10] MEDS ORDERED: LIDOCAINE 2% INJ 20 MG/ML INTRATRACH ONE (12:48)
--- NOTE | 2020-12-10 13:05 | P.PCN ---
Date of Procedure: 12/10/20 Preoperative Diagnosis: Purulent tracheobronchitis, recurrent tracheobronchitis, COPD exacerbation, Postoperative Diagnosis: As above Procedure(s) Performed: #1 bronchoscopy #2 bronchoalveolar lavage from the right lower lobe as well as left lower lobe Anesthesia: MAC Surgeon: Nehemiah Granados Estimated Blood Loss (ml): 5 Condition: stable Disposition: floor Indications for Procedure: As above Operative Findings: as below Description of Procedure: Bronchoscope passed through the right nares, laryngeal area decreased, vocal cord area moving fairly well, bilaterally, diffuse swelling however was noted of the airway involving tracheobronchial tree, extensive erythematous edema was also noted in bronchial tree with mucus plugging purulent in color BAL was performed from the right lower lobe as well as left lower lobe, pulmonary toilet cleaning a section was performed patient tolerated procedure well no noted
[2020-12-10] MEDS ORDERED: IV FLUID CONTINUATION 1,000 ML IV ONE (13:08)
[2020-12-10] MEDS ORDERED: HYDROmorphone 0.5 MG/0.5 ML SYRINGE IVP PRN (15:58)
--- NOTE | 2020-12-10 16:09 | PN ---
PROGRESS NOTE DATE OF SERVICE: 12/10/2020 This 65-year-old gentleman admitted with COPD, acute exacerbation, underwent bronchoscopy with Dr. Granados. Cervical MRI showed significant cervical DJD. No chest pain. No palpitations. No fever. PHYSICAL EXAMINATION: Alert and oriented x3. Pulse 70, blood pressure 115/84, respiration 20, temperature normal. HEENT: Conjunctivae normal. NECK: No jugular venous distention. CARDIOVASCULAR SYSTEM: S1, S2 muffled. RESPIRATORY SYSTEM: Breath sounds diminished at the bases. Bilateral scattered rhonchi and crackles. ABDOMEN: Soft, non-tender. NERVOUS SYSTEM: No focal deficit. LABS: WBC 4.3, hemoglobin 11.4, sodium 152. ASSESSMENT: 1. Syncope and dehydration, present on admission. 2. Severe neck pain, possibly cervical degenerative joint disease. 3. Cervical stenosis C5-6 and C6-7. 4. Chronic obstructive pulmonary disease, acute exacerbation. 5. Acute renal failure. 6. Acute purulent tracheobronchitis. 7. Hypertension. 8. Benign prostatic hypertrophy. 9. Sleep apnea. 10.History of gastroesophageal reflux disease. 11.Chronic back pain. 12.History of depression. 13.Hyperchloremia. 14.Acute renal failure with acute tubular necrosis with prerenal factors. 15.Anemia, normocytic anemia of chronic disease. 16.History of atrial flutter. 17.History of degenerative joint disease. 18.Sleep apnea. 19.History of adenoidectomy. 20.Bowel resection. 21.Anxiety, bipolar, depression, panic disorder. 22.Gait dysfunction. RECOMMENDATIONS AND DISCUSSION: I recommend to continue current medications, continue with the monitoring, symptomatic treatment. Continue with bronchodilators. Guarded prognosis because of multiple complex medical problems. Further recommendations to follow. Closely follow with Pulmonary. Bronchoscopy today. MMODL / IJN: [id number] /
[2020-12-10] MEDS ORDERED: HYDROmorphone 0.5 MG/0.5 ML SYRINGE IVP STA (20:43)
[2020-12-11] MEDS: oxyCODONE-APAP 10-325MG 1 EACH TAB PO PRN ×2 (01:28→07:59)
[2020-12-11] MEDS: SODIUM CHLORIDE 0.9% 1,000 ML IV SCH (03:36)
[2020-12-11] MEDS: BUDESONIDE 0.5 MG/2 ML NEBU INHALATION SCH (07:14)
[2020-12-11] MEDS: IPRATROPIUM-ALBUTEROL 3 ML NEB INHALATION SCH ×2 (07:14→11:04)
[2020-12-11] MEDS: METOPROLOL SUCCINATE (ER) 25 MG TAB.ER.24H PO SCH (07:59)
[2020-12-11] MEDS: MONTELUKAST 10 MG TAB PO SCH (07:59)
[2020-12-11] MEDS: FINASTERIDE 5 MG TAB PO SCH (07:59)
[2020-12-11] MEDS: predniSONE 20 MG TAB PO SCH (07:59)
[2020-12-11] MEDS: hydrALAZINE HCL 25 MG TAB PO SCH (07:59)
[2020-12-11] MEDS: HEPARIN SODIUM,PORCINE/PF 5,000 UNIT/0.5 ML SYRINGE SQ SCH (07:59)
[2020-12-11] MEDS: DULoxetine HCL 60 MG CAPSULE.DR PO SCH (08:00)
[2020-12-11] MEDS: allopurinoL 300 MG TAB PO SCH (08:00)
[2020-12-11] MEDS: PANTOPRAZOLE 40 MG TABLET PO SCH (08:00)
[2020-12-11] MEDS: TAMSULOSIN 0.4 MG CAP.ER.24H PO SCH (08:00)
[2020-12-11] MEDS: FERROUS SULFATE 325 MG TAB PO SCH (08:00)
[2020-12-11] MEDS: LORATADINE 10 MG TAB PO SCH (08:00)
[2020-12-11] MEDS: busPIRone HCl 5 MG TAB PO SCH (08:00)
[2020-12-11] MEDS: DOXYCYCLINE 100 MG CAP PO SCH (08:00)
[2020-12-11] MEDS: amLODIPine 10 MG TAB PO SCH (08:00)
[2020-12-11 08:07] VITALS: BP 157/82; RESP 18; TEMP 97.8
--- NOTE | 2020-12-11 10:20 | P.PN ---
Subjective Progress Note Date: 12/10/20 Principal diagnosis: Cervical Myelopathy Pt s/e. He is having bornchoscopy today. He stated that his neck is OK. He is still having balance issues as well as UE and LE weakens and tremors. Denies any new weakness. No new numbness/tingling. No perineal numbness/tingling. No bowel bladder issues. Objective - Vital Signs Vital signs: Vital Signs Temp 97.8 F 12/11/20 08:00 Pulse 66 12/11/20 08:00 Resp 18 12/11/20 08:00 BP 157/82 12/11/20 08:00 Pulse Ox 96 12/11/20 08:00 Intake & Output 12/10/20 12/11/20 12/11/20 18:59 06:59 18:59 Intake Total 1350 Output Total 210 Balance 1350 -210 Intake: IV 200 Oral 1150 Output: Urine 210 Other: # Voids 3 1 # Bowel Movements 0 - Exam PHYSICAL EXAMINATION: Vitals: Stable General: Awake, alert, appropriate for age, in no acute distress. HEENT: No unusual neck masses around region of lateral neck triangle, thyroid, supraclavicular groove. Extremities: Skin warm and dry without no acute lesions, coloration, temperature, skin intact, no tenderness or erythema. Integument: Hairy patches: Absent Dorsal skin dimples: Absent Cafe au lait spots: Absent Surgical incisions: None Palpation: Please see Pain drawing on Intake sheet for further detail. (Tenderness = T, Nontender = NT, Swelling = S, Ecchymosis = E) Findings on Midline and paraspinal palpation and percussion: Cervical: NT Thoracic: NT Lumbar: NT Sacral: NT Special findings: Minor tenderness to palpation of his posterior cervical spine POSTURAL and MUSCULO-SKELETAL EVALUATION: Neck ROM: Restrictor upward gaze patient has a forward looking and forward bent gaze secondary to cervical deformity Lumbar ROM: [Unrestricted in six directions] Shoulder ROM: Symmetric in abduction, ER/IR Hip ROM: Symmetric in abduction, adduction, ER/IR Knee ROM: Symmetric and intact in Flexion / extension Hands: Normal appearing structure L and R Feet: Normal appearing structure L and R VASCULAR STATUS : Wrist Pulses: [2/4 bilateral radial and ulnar] Pedal Pulses: [2/4 bilateral DP and PT] Color: [Normal] Edema: [None] NEUROLOGIC EXAMINATION: Mental Status: Awake and alert, fully oriented, with normal attention, concentration and memory, and fluent, appropriate speech. Cranial Nerves: I: Olfactory not tested. II: Visual acuity normal, no visual field deficit noted with confrontation. III,IV: Normal pupillary reflexes & intact extraocular movements without nystagmus. V,: Intact symmetrical facial sensation. VII: Intact symmetrical facial motor movement VIII: Hearing intact. IX,X: Intact gag, swallow, & normal voice. XI: Sternocleidomastoid, trapezius function intact. XII: Tongue midline with normal movements. Special Tests: L'hermitte's Sign: Absent Spurling'Sign: Absent Bilateral Cubital percussion test: Absent Bilateral Ana M-Tinel sign - Carpal region: Absent Bilateral Straight Leg Raising: Absent Bilateral Motor Exam (0-5/5, N/T) STRENGTH UPPER EXTREMITY Shoulder Abd (Not part of EH Motor score): RIGHT 4+ LEFT 4+ Elbow Flexors: RIGHT 4+ LEFT 4+ Elbow Extensor: RIGHT 4+ LEFT 4+ Wrrist Dorsiflexors: RIGHT 4+ LEFT 4+ Finger Abductor: RIGHT 4+ LEFT 4+ Applications Support Analyst: RIGHT 4+ LEFT 4+ LOWER EXTREMITY Hip Flexor (Not part of EH Motor Score): RIGHT 4+ LEFT 4+ Knee Flexor: RIGHT 4+ LEFT 4+ Knee Extensor: RIGHT 4+ LEFT 4+ Ankle Dorsiflexion: RIGHT 4+ LEFT 4+ Ankle Plantarflexion: RIGHT 4+ LEFT 4+ EHL: RIGHT 4+ LEFT 4+ FHL: RIGHT 4+ LEFT 4+ Generalized weakness for the patient state no focal deficits REFLEXES Biecp: RIGHT 3 LEFT 3 Tricep: RIGHT 3 LEFT 3 Brachioradialis: RIGHT 3 LEFT 3 Patellar: RIGHT 3 LEFT 3 Achilles: RIGHT 3 LEFT 3 Pathological Reflexes Baugh's: RIGHT present LEFT Present Babinski: RIGHT [Absent] LEFT [Absent] Clonus: RIGHT sustain greater than 10 beats LEFT sustained greater than 10 beats SENSORY Joint Position: [Intact bilaterally] Vibration [Intact bilaterally] Pain and LT sense [Intact C5-T1 and L2-S1] Dermatomal deficit [None] Gait and Functional Evaluation: Ambulatory aids: Walker UNABLE Toe walk/ heel walk / heel-toe walk intact while maintaining satisfactory balance. UNALBE Squatting and straightening out without assistance to a minimum of 60 degrees knee flexion UNABLE Single leg stance: Hand and finger dexterity NOT intact bilaterally[]. Disdiadochokinesis examinati on Positive bilaterally. - Labs CBC & Chem 7: 12/10/20 05:04 12/10/20 05:04 Labs: Microbiology - Last 24 Hours (Table) 12/10/20 12:48 Gram Stain - Preliminary Bronchial Washings - Right Bronchial Washings Culture - Preliminary 12/10/20 12:48 Acid Fast Bacilli Smear - Final Bronchial Washings - Right Acid Fast Bacilli Culture - Preliminary 12/10/20 12:48 Legionella Culture - Preliminary Bronchial Washings - Right 12/10/20 12:48 Fungal Culture - Preliminary Bronchial Washings - Right Assessment and Plan Assessment: 1. Cervical spondylotic myelopathy 2. C3-6 spondylosis with stenosis and radiculopathy 3. Gait instability 4. UE weakness 5. L hand contusion 6. Complex medical history Plan: 1. MRI shows stenosis C3-6 with kyphosis at these levels and deformity. There is no fracture or dislocation noted. C0-1 and C1-2 joints are stable. Subaxial spine is relatively stable, there is mild C3-4 listhesis. Large osteophye complex noted anterior to C4-6. 2. Ice and rest to left hand 3. Medical management 4. Recommend decadron 5. PT/OT 6. Discussed surgical intervention with pt. At this time he is having issues with his COPD, lungs and breathing. While he does need surgical intervention of his neck, we need his heart and lungs to be strong for this as it would be a large 360 deg neck fusion from C3-6 on the front and C2-T2 posteriorly. We will continue to evaluate the pt while he is here. Would recommend cont of decadron as well as medical and pulm management.
[2020-12-11 11:13] VITALS: PULSE 72
--- NOTE | 2020-12-11 11:38 | P.PN ---
Subjective Progress Note Date: 12/11/20 Principal diagnosis: Near syncopal episode likely related to multifactorial processes related to severe coughing and respiratory, with episode of atrial flutter, dehydration and acute kidney injury Acute COPD exacerbation Acute kidney injury likely related to volume depletion dehydration Atrial flutter of unclear etiology recommend cardiovascular workup may very well be associated with respiratory issues 12/11/2020, patient seen eval examined labs reviewed medications reviewed from [facility] status remains stable, still have ongoing cough congestion was severity has improved patient has status with bronchoscopy and pulmonary toilet the results and reports are pending including cytology, 12/10/2020, patient seen eval examined during the rounds labs reviewed medications reviewed care plan discussed with the patient and staff at length, ongoing shortness of breath and congestion is present due to size patient unable to expectorate pulmonary secretions impacted we'll proceed with bronchoscopy for pulmonary toilet suctioning and cleaning also for culture in case of resistant organism is present, being planned for later on today procedure risk alternative and complication explained to the patient including possible intubation 12/09/2020, patient seen eval examined during the rounds very short of breath on activity and exertion very congested, patient is resting pulmonary toilet and suctioning with bronchoscopy, was ejected explained to the patient will tentat ively schedule for tomorrow This is a 65-year-old male seen eval examined on 6 floor patient came into the hospital with progressive cough shortness of breath and wheezing, patient had the near-syncopal episode with a fall, also noted to be in atrial flutter, patient is feeling very tight and wheezy unable to expectorate feel congested in the lungs patient has been evaluated previously and might Y lead and bronchoscopy that seems to be helpful for diagnostic and therapeutic relief, patient considering and want to have the same intervention as he cannot cough out due to his size and poor lung compliance, patient also appears to be more dehydrated with relatively higher creatinine level of 1.7, due to poor by mouth intake, patient has significant degree of sleep disorder breathing and sleep apnea but has declined CPAP or BiPAP evaluation and intervention, chest x-ray is unremarkable Objective - Vital Signs Vital signs: Vital Signs Temp 97.8 F 12/11/20 08:00 Pulse 72 12/11/20 11:12 Resp 18 12/11/20 08:00 BP 157/82 12/11/20 08:00 Pulse Ox 96 12/11/20 08:00 Intake & Output 12/10/20 12/11/20 12/11/20 18:59 06:59 18:59 Intake Total 1350 Output Total 210 Balance 1350 -210 Intake: IV 200 Oral 1150 Output: Urine 210 Other: # Voids 3 1 # Bowel Movements 0 - Exam - Constitutional General appearance: disheveled, mild distress, obese - EENT Eyes: EOMI, PERRLA Ears: bilateral: normal - Neck Carotids: bilateral: upstroke normal Thyroid: bilateral: normal size - Respiratory Respiratory: bilateral: diminished, wheezing (Both inspiratory and expiratory) - Cardiovascular Rhythm: regular Heart sounds: normal: S1, S2 - Gastrointestinal General gastrointestinal: normal bowel sounds - Neurologic Neurologic: CNII-XII intact - Musculoskeletal Musculoskeletal: gait normal, generalized weakness, strength equal bilaterally - Psychiatric Psychiatric: A&O x's 3, appropriate affect, intact judgment & insight - Labs CBC & Chem 7: 12/10/20 05:04 12/10/20 05:04 Labs: Microbiology - Last 24 Hours (Table) 12/10/20 12:48 Gram Stain - Preliminary Bronchial Washings - Right Bronchial Washings Culture - Preliminary 12/10/20 12:48 Acid Fast Bacilli Smear - Final Bronchial Washings - Right Acid Fast Bacilli Culture - Preliminary 12/10/20 12:48 Legionella Culture - Preliminary Bronchial Washings - Right 12/10/20 12:48 Fungal Culture - Preliminary Bronchial Washings - Right Assessment and Plan Assessment: Near syncopal episode likely related to multifactorial processes related to severe coughing and respiratory, with episode of atrial flutter, dehydration and acute kidney injury Acute COPD exacerbation Purulent tracheobronchitis Intractable coughing Acute on chronic hypoxic hypercapnic respiratory failure Sleep disorder breathing and sleep apnea refused CPAP BiPAP machine status post UPPP Acute kidney injury likely related to volume depletion dehydration Atrial flutter of unclear etiology recommend cardiovascular workup may very well be associated with respiratory issues Plan: Agree with bronchodilators IV steroids however at the time of discharge can be changed to by mouth Breathing treatments Deep breathing exercise incentive spirometry Evaluation of atrial flutter Status post bronchoscopy and bronchoalveolar lavage for diagnostic and therapeutic purposes Continue gentle rehydration Further plan of care as per clinical response of the patient Time with Patient: Greater than 30
--- NOTE | 2020-12-11 12:33 | P.PN ---
Progress Note - Text Progress Note Date: 12/11/20 Patient was evaluated at bedside today, he is resting comfortably. Patient did have his bronchoscopy yesterday, he is feeling a lot better at this point. The plan is for him to be discharged home today. Dr. Berg is recommending follow-up in the outpatient setting in the next week or 2 to discuss his further treatment options. On a orthopedic spine level, the patient is stable for discharge today. Our office information will be provided follow-up. Diagnoses: 1. Cervical spondylotic myelopathy 2. C3-6 spondylosis with stenosis and radiculopathy 3. Gait instability 4. UE weakness 5. L hand contusion 6. Complex medical history
--- NOTE | 2020-12-11 23:08 | DS ---
DISCHARGE SUMMARY DATE OF SERVICE: 12/11/2020 FINAL DIAGNOSES: 1. Syncope and dehydration, present on admission, possibly prerenal factors. 2. Severe neck pain and possible degenerative joint disease. 3. Cervical stenosis, C5 C6-7. 4. Chronic obstructive pulmonary disease, acute exacerbation, with acute purulent tracheobronchitis. 5. Acute renal failure. 6. Hypertension. 7. Benign prostatic hypertrophy. 8. Obstructive sleep apnea. 9. History of gastroesophageal reflux disease. 10.Chronic back pain. 11.History of depression. 12.Hyperchloremia. 13.Acute renal failure with acute tubular necrosis with prerenal factors present on admission. 14.Anemia, normocytic anemia of chronic disease. 15.History of atrial flutter. 16.History of degenerative joint disease. 17.Sleep apnea. 18.History of adenoidectomy. 19.History of bowel resection. 20.Status post bronchoscopy. 21.Anxiety, bipolar depression, panic disorder. 22.Gait dysfunction. DISCHARGE DISPOSITION: Stable. HISTORY OF PRESENT ILLNESS: This 65-year-old gentleman with a past medical history of multiple medical problems as mentioned earlier, being followed by Dr. Shah in the outpatient setting was admitted with significant multiple medical issues, including dehydration, renal failure and COPD. Patient was treated symptomatically. Patient improved significantly. However Dr. Granados performed a bronchoscopy. Patient felt much better. The final cultures are pending at this time. The bronchial preliminary culture showed gram-negative. recommended outpatient antibiotic and further follow up with Dr. Granados. The patient was also seen by Dr. Berg for cervical myelopathy during the hospitalization and recommended outpatient followup. MRI was reviewed. The patient also had an MRI. This showed significant for cervical stenosis. On exam, vitals stable. Cardiovascular : S1, S2. Respiratory: A few scattered rhonchi. DISCHARGE ADVICE AND MEDICATIONS: 1. Diet is cardiac diet. 2. Activity limited until followup. 3. Follow up with Dr. Shah 2-3 days. 4. Follow up with Dr. Granados in 1 week. 5. Follow up with Dr. Berg in 1 week. 6. Apresoline 75 mg p.o. daily. 7. DuoNeb q.i.d. and p.r.n. 8. BuSpar 7.5 mg b.i.d. 9. Cetirizine 10 mg daily. 10.Cymbalta 60 mg daily. 11.Iron sulfate 320 mg daily. 12.Flomax 0.4. 13.Omeprazole 20 mg b.i.d. 14.Oxycodone 10 mg 5 times per day. 15.Proscar 5 mg p.o. daily. 16.Singulair 10 mg p.o. daily. 17.Fluticasone 1 puff daily. 18.Ventolin p.r.n. 19.Hydroxyzine 25 mg q.8 p.r.n. 20.Zyloprim 300 mg p.o. daily. 21.Norvasc 10 mg p.o. daily. 22.Prednisone taper 40 mg daily for 3 days, 30 for 3 days, 20 for 3 days, 10 for 3 days. 23.Toprol-XL 25 mg daily. 24.Doxycycline 100 mg p.o. b.i.d. for 7 days. Once again, the patient being discharged in stable condition with guarded prognosis with multiple complex medical issues as mentioned earlier. MMMEGAL / AQUILINON: [id number] / RAI
== END 2020-12-11 12:52 | disposition home or self-care (01) | DRG 190 ==
LOC: EC 10:58 → 6NMEDSUR 14:50 → OBSVTOIN 12-09 12:14
PROVIDERS: ADMIT Internal Medicine; ATTEND Internal Medicine
PROC: 0B9J8ZZ Drainage of Left Lower Lung Lobe, Via Natural or Artificial Opening Endoscopic (ICD-10-PCS; principal; 2020-12-10 12:00)
PROC: 0B9J8ZX Drainage of Left Lower Lung Lobe, Via Natural or Artificial Opening Endoscopic, Diagnostic (ICD-10-PCS; principal; 2020-12-10 12:00)
PROC: 0B9F8ZZ Drainage of Right Lower Lung Lobe, Via Natural or Artificial Opening Endoscopic (ICD-10-PCS; principal; 2020-12-10 12:00)
PROC: 0B9F8ZX Drainage of Right Lower Lung Lobe, Via Natural or Artificial Opening Endoscopic, Diagnostic (ICD-10-PCS; principal; 2020-12-10 12:00)
DX: J44.1 Chronic obstructive pulmonary disease with (acute) exacerbation (principal); J96.21 Acute and chronic respiratory failure with hypoxia; J96.22 Acute and chronic respiratory failure with hypercapnia; N17.0 Acute kidney failure with tubular necrosis; M47.12 Other spondylosis with myelopathy, cervical region; I48.92 Unspecified atrial flutter; J44.0 Chronic obstructive pulmonary disease with (acute) lower respiratory infection; J20.9 Acute bronchitis, unspecified; Z87.891 Personal history of nicotine dependence; G47.33 Obstructive sleep apnea (adult) (pediatric); G89.29 Other chronic pain; M54.9 Dorsalgia, unspecified; M40.202 Unspecified kyphosis, cervical region; M48.02 Spinal stenosis, cervical region; M54.12 Radiculopathy, cervical region; K21.9 Gastro-esophageal reflux disease without esophagitis; N40.0 Benign prostatic hyperplasia without lower urinary tract symptoms; S60.222A Contusion of left hand, initial encounter; R51.9 Headache, unspecified; R26.9 Unspecified abnormalities of gait and mobility; T17.990A Other foreign object in respiratory tract, part unspecified in causing asphyxiation, initial encounter; L71.9 Rosacea, unspecified; T38.0X5A Adverse effect of glucocorticoids and synthetic analogues, initial encounter; G25.1 Drug-induced tremor; W19.XXXA Unspecified fall, initial encounter; Z53.20 Procedure and treatment not carried out because of patient's decision for unspecified reasons; D63.8 Anemia in other chronic diseases classified elsewhere; E86.0 Dehydration; E87.8 Other disorders of electrolyte and fluid balance, not elsewhere classified; F31.9 Bipolar disorder, unspecified; F41.0 Panic disorder [episodic paroxysmal anxiety]; I10 Essential (primary) hypertension; Z79.899 Other long term (current) drug therapy; Z20.822 Contact with and (suspected) exposure to COVID-19; R13.10 Dysphagia, unspecified; Z82.5 Family history of asthma and other chronic lower respiratory diseases; Z87.19 Personal history of other diseases of the digestive system; Z90.49 Acquired absence of other specified parts of digestive tract; Z60.2 Problems related to living alone; Z87.01 Personal history of pneumonia (recurrent); Z82.3 Family history of stroke
CPT/HCPCS: 31624; 36415; 70450; 71046; 72125; 72141; 80048; 80053; 83605; 83735; 84484; 85025; 85027; 85610; 85730; 87070; 87077; 87102; 87116; 87186; 87205; 87206; 87252; 87496; 87498; 87502; 87529; 87634; 87635; 87798; 88108; 88305; 93005; 94640; 94760; 96374; 99285

== ENCOUNTER 2020-12-31 16:12 | Inpatient (IN) | payer MEDICARE, OTHER ==
[2020-12-31] MEDS ORDERED: SODIUM CHLORIDE 0.9% 500 ML 500 ML IV STA (16:50)
[2020-12-31] MEDS ORDERED: LORazepam 2 MG/ML INJ IV STA (16:54)
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
[2020-12-31 17:12] LABS: Basophils # (A) 0.2 k/uL (0-0.2); Basophils % (A) 1 %; Eosinophils # (A) 0.3 k/uL (0-0.7); Eosinophils % (A) 2 %; Lymphocytes # (A) 2.2 k/uL (1.0-4.8); Lymphocytes % (A) 21 %; MCH 30.7 pg (25.0-35.0); MCHC 34.8 g/dL (31.0-37.0); MCV 88.4 fL (80.0-100.0); Mean Platelet Volume 6.7; Monocytes # (A) 1.1 k/uL (0-1.0); Monocytes % (A) 10 %; Neutrophils # (A) 6.9 k/uL (1.3-7.7); Neutrophils % (A) 63 %; RBC 5.44 m/uL (4.30-5.90); WBC 10.9 k/uL (3.8-10.6)
[2020-12-31 17:22] LABS: Albumin 5.2 g/dL (3.5-5.0); Calcium 10.9 mg/dL (8.4-10.2); Magnesium 1.9 mg/dL (1.6-2.3); Potassium 5.1 mmol/L (3.5-5.1); Total Bilirubin 1.1 mg/dL (0.2-1.3); Total Protein 7.7 g/dL (6.3-8.2)
[2020-12-31 17:25] LABS: Partial Thromboplastin Time 22.1 sec (22.0-30.0); Prothrombin Time 10.6 sec (9.0-12.0)
[2020-12-31 17:28] LABS: HGB 16.7 gm/dL (13.0-17.5); Platelet Count 350 k/uL (150-450)
[2020-12-31] MEDS ORDERED: SODIUM CHLORIDE 0.9% 1,000 ML IV STA ×2 (17:35→17:36)
--- NOTE | 2020-12-31 17:46 | XR ---
EXAMINATION TYPE: XR chest 2V DATE OF EXAM: 12/31/2020 COMPARISON: 12/07/2020 INDICATION: Difficulty breathing TECHNIQUE: Single frontal view of the chest is obtained. FINDINGS: The heart size is normal. The pulmonary vasculature is normal. The lungs are clear. IMPRESSION: 1. No acute pulmonary process.
--- NOTE | 2020-12-31 18:34 | CT ---
CT CHEST FOR PULMONARY EMBOLISM. EXAMINATION TYPE: CT angio chest DATE OF EXAM: 12/31/2020 INDICATION: Shortness of breath. CT DLP: 376.1 mGycm, Automated exposure control for dose reduction was used. CONTRAST: Patient injected with 80 mL of Isovue 370. COMPARISON: 07/30/2020 TECHNIQUE: CT of the chest is performed on a spiral scan at 2 mm thick sections. Study is performed with intravenous contrast timed for evaluation for pulmonary embolism. This will limit additional po rtions of the evaluation. 3-D MIP images reconstructed by the technologist are reviewed on the compu ter in the coronal and sagittal planes. FINDINGS: No persistent filling defects are evident to suggest an acute pulmonary embolism. No mediastinal or hilar adenopathy enlarged by CT criteria is evident. The ascending aorta diameter at the level of the main pulmonary artery is 3.2 cm. The main pulmonary artery diameter at the bifur cation is 2.4 cm. Lung windows are clear. Limited CT section through the upper abdomen are unremarkable. IMPRESSIONS: 1. No acute pulmonary embolism.
[2020-12-31] MEDS ORDERED: NALOXONE 0.4 MG/ML 1 ML VIAL IV PRN (18:50)
--- NOTE | 2020-12-31 20:37 | HP ---
HISTORY AND PHYSICAL CHIEF COMPLAINT: Shortness of breath, cough, hyperventilation, anxiety. HISTORY OF PRESENT ILLNESS: This 65-year-old gentleman with a past medical history of multiple medical problems including atrial flutter, history of asthma, COPD, GERD, GI bleed, hypertension, DJD being followed by Dr. Shah in the outpatient setting was recently admitted to [facility] with multiple complaints and near syncope. History of neck pain, DJD. The patient treated symptomatically, improved significantly. Went home and currently the patient is complaining of increased shortness of breath, cough, sputum. The patient also was feeling dizzy, was falling at home and the patient came to [facility]. The lungs showed bilateral scattered rhonchi and crackles, indicating acute purulent tracheobronchitis. Chest x-ray showed no evidence of CHF. Troponins elevated and as well as lactic acid also elevated. Patient admitted for further evaluation and treatment. There is no history of any fever, rigor or chills at this time. PAST MEDICAL HISTORY: History of atrial flutter, asthma, history of chest pain, COPD, GERD, GI bleed, DJD, history of pneumonia. MEDICATIONS: Prior to admission, home medications are: Prednisone, oxycodone, Restoril, Apresoline, BuSpar, Norvasc, Flomax, omeprazole, Singulair, Toprol-XL, DuoNeb, Ellipta, Proscar, iron sulfate, Vibramycin, Cymbalta, cetirizine, Zyloprim, and Ventolin. ALLERGIES: PEANUTS, DUST. FAMILY HISTORY: History of asthma. SOCIAL HISTORY: History of THC. Previous history of smoking. REVIEW OF SYSTEMS: ENT: No diminished vision. No diminished hearing. CARDIOVASCULAR system: As mentioned earlier. RESPIRATORY: As mentioned earlier. GI no nausea. no dysuria. NERVOUS SYSTEM: No numbness, weakness. ALLERGY/IMMUNOLOGY: As mentioned earlier. HEMATOLOGY/ONCOLOGY: No history of anemia. ENDOCRINE: No history of diabetes or hypothyroidism. CONSTITUTIONAL: As mentioned earlier. DERMATOLOGY: Negative. RHEUMATOLOGY: Negative. PSYCHIATRIC: As mentioned earlier. PHYSICAL EXAMINATION: Alert and oriented times three. Pulse 117, blood pressure 173/107, respiration 16, temp 97.9, pulse ox 96% on 2 L. HEENT: Conjunctivae normal. NECK: No JVD. CARDIOVASCULAR: S1, S2 muffled. RESPIRATION: Breath sounds diminished in the bases. Bilateral scattered rhonchi and crackles. Expiratory wheezing also present. ABDOMEN: Soft, nontender. No mass palpable. LEGS: No edema. No swelling. NERVOUS SYSTEM: Higher functions as mentioned earlier. Moves all 4 limbs. No focal motor or sensory deficits. LYMPHATICS: No lymph nodes palpable in the neck, axilla or groin. JOINTS: No active deforming arthropathy. LABS: WBC 10.9. Otherwise troponin 0.075. The previous troponin was normal. Lactic acid is 5.8. ASSESSMENT: 1. Chronic obstructive pulmonary disease acute exacerbation. Bronchial asthma, acute exacerbation, acute purulent tracheobronchitis. 2. Elevated lactic acid, rule out sepsis. 3. Troponin 0.075. Rule out acute non ST-segment elevation myocardial infarction. 4. Increased WBC. 5. History of recent degenerative joint disease and syncope. 6. History of atrial flutter. 7. History of asthma, chronic obstructive pulmonary disease. 8. History of gastroesophageal reflux disease. 9. Hypertension. 10.Degenerative joint disease. 11.History of benign prostatic hypertrophy. 12.History of sleep apnea. 13.History of adenoidectomy. 14.History of bowel resection. 15.History of anxiety, bipolar depression, panic disorder. 16.History of nicotine dependence. 17.Tachycardia. RECOMMENDATIONS AND DISCUSSION: This 65-year-old gentleman who presented with multiple complex medical issues, we will monitor the patient closely, continue the current medications, management and symptomatic treatment. We will initiate intensive bronchodilator treatment, empiric antibiotics, steroids and Cardiology and pulmonology consultations. The overall prognosis guarded because of multiple complex medical issues. Further recommendations to follow. A copy of dictation being forwarded to Dr. Shah, who is the primary physician. I would also recommend a D-dimer and CT angio of the chest also. The patient was found to be hypoxic at 96% on 2 L. The overall prognosis guarded. MMODL / IJN: [id number] / MTDD
[2020-12-31] MEDS: MORPHINE SULFATE 2 MG/ML SYRINGE IVP PRN (22:57)
[2020-12-31] MEDS: hydrALAZINE HCL 25 MG TAB PO SCH (22:58)
[2020-12-31] MEDS: oxyCODONE-APAP 10-325MG 1 EACH TAB PO PRN (22:58)
[2020-12-31] MEDS ORDERED: hydrALAZINE HCL 25 MG TAB PO SCH (23:00)
[2021-01-01] MEDS: busPIRone HCl 5 MG TAB PO SCH ×3 (00:32→21:46)
[2021-01-01] MEDS: MORPHINE SULFATE 2 MG/ML SYRINGE IVP PRN ×2 (04:20→11:25)
[2021-01-01] MEDS: oxyCODONE-APAP 10-325MG 1 EACH TAB PO PRN ×2 (07:40→14:20)
[2021-01-01] MEDS ORDERED: ATORVASTATIN 80 MG TAB PO STA (09:50)
[2021-01-01] MEDS ORDERED: SODIUM CHLORIDE 0.9% 1,000 ML in EMPTY BAG 1 BAG IV ONE (09:50)
[2021-01-01] MEDS ORDERED: ASPIRIN 325 MG TAB PO STA (09:50)
--- NOTE | 2021-01-01 10:42 | CONS ---
CONSULTATION ATTENDING PHYSICIAN: Dr. Shah. Mrs. Stack is a 65-year-old male who presented to the emergency room with symptoms of progressive dyspnea. The patient had multiple visits to the emergency room and has been complaining of progressive dyspnea, much worse recently and he feels dizzy with physical activity with near syncope but no full syncopal episodes. He denies any prior documented history of coronary artery disease. In the emergency room he was noted to have a troponin elevation. He denies any palpitations. No syncope. He has occasional peripheral edema. He has no clear PND nor orthopnea. The patient has a history of chronic obstructive lung disease, followed by Dr. Granados In the past. His coronary risk factors are remarkable for prior history of smoking, hypertension. He is non diabetic. His lipid profile is not available to me. Patient had an echocardiogram about a year or so ago that showed a preserved systolic function and last year he had a myocardial perfusion imaging that revealed no evidence of stress-induced ischemia. His stress test was done on January 02 of last year. MEDICATIONS: His medications at home include bupropion, Vistaril, hydralazine 75 mg 3 times a day, Norvasc 10 mg daily, omeprazole, Singulair 10 mg daily, Toprol-XL 25 mg daily, DuoNeb, Trelegy, Proscar, iron, Cymbalta, Zyloprim, and Ventolin. REVIEW OF SYSTEMS: RESPIRATORY SYSTEM: He has dyspnea on exertion and cough. He has chronic obstructive lung disease. GI SYSTEM: He has no recent nausea, no vomiting. No GI bleeding SYSTEM: No dysuria or hematuria. NERVOUS SYSTEM: He denies any history of stroke or seizure. PHYSICAL EXAMINATION: He is a 65-year-old male, alert, oriented, no apparent distress. Blood pressure running in the 130s to 150 with a heart rate in the 90s. HEAD: Normocephalic. Eyes sclerae anicteric. NECK: Good carotid upstroke. No bruits. No jugular venous distention. LUNGS: Clear to auscultation. HEART: Regular rate and rhythm, S1, S2. No S3 with systolic ejection murmur heard at the base. No diastolic murmur, no rub. ABDOMEN: Soft, nontender. Positive bowel sounds. No organomegaly. EXTREMITIES: With 1+ edema. LAB DATA: Troponin 0.075. NT proBNP of 2180. BUN and creatinine of 19 and 1.43, which has worsened since about a month ago. The patient had a prior history of episode of renal failure. His troponin elevation was noted only on this admission. Prior admission his troponin has been normal. His EKG revealed sinus mechanism with sinus tachycardia, right bundle branch block and nonspecific ST-T wave changes. IMPRESSION: 1. Symptoms of chest discomfort and progressive dyspnea with mild troponin elevation, rule out non STEMI. 2. Chronic obstructive lung disease, followed by Dr. Granados. 3. Prior history of smoking. 4. History of hypertension. RECOMMENDATION: I would recommend to obtain echocardiogram with Doppler. Because of his recurrent symptoms and recurrent admission, I recommend proceeding with coronary angiography to assess his status and guide his treatment. The rationale behind the procedures, risks and the complications were discussed with the patient who is in full understanding and agreement. We will recheck his renal function tomorrow and depending on that, if he is stable, we will proceed with the intervention tomorrow. Thank you for this consult. We will follow with you. MMMEGAL / IJN: [id number] /
[2021-01-01] MEDS: NITROGLYCERIN OINT 1 INCH/GM PACKET TOPICAL SCH ×2 (11:24→16:41)
[2021-01-01] MEDS: METOPROLOL TARTRATE 25 MG TAB PO SCH ×2 (11:25→21:46)
[2021-01-01] MEDS: hydrALAZINE HCL 25 MG TAB PO SCH ×3 (11:25→21:46)
[2021-01-01] MEDS: ASPIRIN 81 MG PO SCH (11:26)
[2021-01-01] MEDS: ATORVASTATIN 40 MG TAB PO SCH (11:27)
[2021-01-01 12:50] LABS: ALT 16 U/L (4-49); AST 22 U/L (17-59); African American GFR (CKD) >90 (>60 ml/min/1.73 sqM); Albumin 3.6 g/dL (3.5-5.0); Alkaline Phosphatase 114 U/L (38-126); Anion Gap 9 mmol/L; Blood Urea Nitrogen 14 mg/dL (9-20); Carbon Dioxide 24 mmol/L (22-30); Chloride 107 mmol/L (98-107); Glucose 95 mg/dL (74-99); Non-African American GFR(CKD) >90 (>60 ml/min/1.73 sqM); Potassium 3.7 mmol/L (3.5-5.1); Sodium 140 mmol/L (137-145); Total Bilirubin 0.6 mg/dL (0.2-1.3); Total Protein 5.7 g/dL (6.3-8.2)
[2021-01-01 12:56] LABS: MCH 29.3 pg (25.0-35.0); MCHC 32.4 g/dL (31.0-37.0); MCV 90.5 fL (80.0-100.0); Mean Platelet Volume 6.5; Platelet Count 216 k/uL (150-450); RBC 4.53 m/uL (4.30-5.90); RDW 15.6 % (11.5-15.5); WBC 5.7 k/uL (3.8-10.6)
[2021-01-01 13:01] LABS: HGB 13.3 gm/dL (13.0-17.5)
[2021-01-01] MEDS: HYDROmorphone 0.5 MG/0.5 ML SYRINGE IVP PRN ×2 (16:03→20:40)
[2021-01-01 16:24] LABS: Appearance,Urine Clear (Clear); Bilirubin,Urine Negative (Negative); Blood,Urine Negative (Negative); Color,Urine Yellow; Glucose,Urine (UA) Negative (Negative); Ketones,Urine 1+ (Negative); Leukocyte Esterase,Urine Negative (Negative); Nitrite,Urine Negative (Negative); PH, Urine 5.5 (5.0-8.0); Protein,Urine Negative (Negative); Specific Gravity,Urine 1.025 (1.001-1.035); Urobilinogen,Urine <2.0 mg/dL (<2.0)
[2021-01-01 16:35] LABS: Amphetamine Screen,Urine Not Detected (NotDetected); Barbiturate Screen,Urine Not Detected (NotDetected); Benzodiazepines Screen,Urine Detected (NotDetected); Cocaine Screen,Urine Not Detected (NotDetected); Methadone Screen, Urine Not Detected (NotDetected); Opiate Screen,Urine Detected (NotDetected); Oxycodone Screen, Urine Detected (NotDetected); Phencyclidine Screen,Urine Not Detected (NotDetected); Tricyclic Antidepressant,Urine Not Detected (NotDetected); Urn Cannabinoid Scrn Detected (NotDetected)
[2021-01-01] MEDS: TAMSULOSIN 0.4 MG CAP.ER.24H PO SCH (16:40)
[2021-01-01] MEDS: FINASTERIDE 5 MG TAB PO SCH (16:40)
--- NOTE | 2021-01-01 16:44 | PN ---
PROGRESS NOTE DATE OF SERVICE: 01/01/2021 This 65-year-old gentleman was admitted with shortness of breath and possible COPD acute exacerbation, bronchial asthma and acute purulent tracheobronchitis being closely monitored. Patient also had elevated lactic acid. The patient started on empiric antibiotics. A chest CTA which was done yesterday and personally reviewed by me showed no evidence of acute pulmonary embolism. Cardiology is seeing the patient. The patient had some symptoms of chest discomfort, 2D echo with Doppler has been ordered. Coronary angiography has been planned by Cardiology at this time. No chest pain. No fever. No cough. PAST MEDICAL HISTORY: Reviewed. REVIEW OF SYSTEMS: CARDIOVASCULAR: No angina. RESPIRATORY: As mentioned earlier. GI: As mentioned earlier. : No dysuria. NERVOUS SYSTEM: No numbness, weakness. CURRENT MEDICATIONS: Reviewed and include: Xanax, aspirin, BuSpar, Rocephin, Apresoline, morphine sulfate, Percocet. PHYSICAL EXAMINATION: Patient is alert, oriented times three. Pulse is 93. Blood pressure 157/105, respiration 18, temp 98 degrees, pulse ox 98% on room air. HEENT: Conjunctivae normal. NECK: No JVD. CARDIOVASCULAR: S1, S2 muffled. RESPIRATORY SYSTEM: Breath sounds diminished at the bases. Bilateral scattered rhonchi and expiratory wheezing also present. ABDOMEN: Soft, nontender. LEGS: No edema. No swelling. NERVOUS SYSTEM: No focal deficits. LAB STUDIES: Troponin 0.056. ASSESSMENT: 1. Chest pain, possibly with troponin 0.075, possible acute yfo-VW-usskedr-elevation myocardial infarction. 2. Chronic obstructive pulmonary disease exacerbation. 3. Bronchial asthma, acute exacerbation. 4. Acute purulent tracheobronchitis. 5. Elevated lactic acid, present on admission. 6. Increased WBC. 7. History of recent syncope and degenerative joint disease. 8. History of atrial flutter. 9. History of asthma, chronic obstructive pulmonary disease. 10.History of gastroesophageal reflux disease. 11.Hypertension. 12.History of degenerative joint disease. 13.History of benign prostatic hypertrophy. 14.History of sleep apnea. 15.Acute on chronic pain syndrome. 16.History of adenoidectomy. 17.History of bowel resection. 18.Anxiety, bipolar depression, panic disorder. 19.History of nicotine dependence. 20.Tachycardia. RECOMMENDATIONS AND DISCUSSION: Continue current medications, management and symptomatic treatment. Otherwise, at this time, I recommend bronchodilators and antibiotics. Repeat labs. Cardiac catheterization by Cardiology. I would also recommend continue the pain medications for now and continue to monitor. Guarded prognosis. Further recommendations to follow. MMODL / IJN: [id number] /
[2021-01-01] MEDS: IPRATROPIUM 0.5 MG/2.5 ML NEBU INHALATION SCH ×2 (16:56→20:14)
--- NOTE | 2021-01-01 17:47 | ECHOF ---
Referral Reason:cad MEASUREMENTS -------- HEIGHT: 180.3 cm WEIGHT: 90.7 kg BP: IVSd: 1.8 cm (0.6 - 1.1) LVIDd: 4.4 cm (3.9 - 5.3) LVPWd: 1.6 cm (0.6 - 1.1) IVSs: 2.0 cm LVIDs: 1.9 cm LVPWs: 1.5 cm Ao Diam: 3.8 cm (2.0 - 3.7) AV Cusp: 2.1 cm (1.5 - 2.6) LA Diam: 3.4 cm (2.7 - 3.8) MV EXCURSION: 14.425 mm (> 18.000) MV EF SLOPE: 51 mm/s (70 - 150) EPSS: 0.4 cm MV E Anatoliy: 0.57 m/s MV DecT: 252 ms MV A Anatoliy: 0.71 m/s MV E/A Ratio: 0.80 RAP: 5.00 mmHg RVSP: 11.16 mmHg FINDINGS -------- This was a technically difficult study with suboptimal views. The left ventricular size is normal. There is moderate concentric left ventricular hypertrophy. O verall left ventricular systolic function is normal with, an EF between 55 - 60 %. The RV was not well visualized. The left atrial size is normal. The right atrium was not well visualized. Lumason used The aortic valve is trileaflet and appears structurally normal. The mitral valve is normal. There is trace mitral regurgitation. The tricuspid valve was not well visualized. Trace tricuspid regurgitation present. Right ventric ular systolic pressure is normal at < 35 mmHg. There is no pulmonic regurgitation present. The aortic root size is normal. IVC Not well visulized. There is no pericardial effusion. CONCLUSIONS -------- 1. The left ventricular size is normal. 2. There is moderate concentric left ventricular hypertrophy. 3. Overall left ventricular systolic function is normal with, an EF between 55 - 60 %. 4. There is trace mitral regurgitation. 5. Trace tricuspid regurgitation present. 6. There is no pericardial effusion. [employer]HOLE B[employer]ER AND TOPPER: Syeda Farrar [facility]
[2021-01-01] MEDS ORDERED: busPIRone HCl 5 MG TAB PO SCH (21:00)
[2021-01-01] MEDS: ALPRAZolam 0.5 MG TAB PO PRN (21:47)
[2021-01-02] MEDS: NITROGLYCERIN OINT 1 INCH/GM PACKET TOPICAL SCH ×3 (00:06→15:04)
[2021-01-02] MEDS: oxyCODONE-APAP 10-325MG 1 EACH TAB PO PRN ×4 (00:09→20:27)
[2021-01-02] MEDS: HYDROmorphone 0.5 MG/0.5 ML SYRINGE IVP PRN ×4 (03:12→18:06)
[2021-01-02 06:12] LABS: Glucose,Whole Blood 94 mg/dL (75-99)
[2021-01-02] MEDS ORDERED: HEPARIN SODIUM,PORCINE 2,500 UNIT in SODIUM CHLORIDE 0.9% 250 ML IRRIGATION PRN (07:00)
[2021-01-02] MEDS ORDERED: HEPARIN SODIUM,PORCINE 10,000 UNIT in SODIUM CHLORIDE 0.9% 1,000 ML IRRIGATION PRN (07:00)
[2021-01-02] MEDS: IPRATROPIUM 0.5 MG/2.5 ML NEBU INHALATION SCH ×4 (07:26→19:52)
[2021-01-02 08:12] LABS: African American GFR (CKD) >90 (>60 ml/min/1.73 sqM); Anion Gap 6 mmol/L; Blood Urea Nitrogen 15 mg/dL (9-20); Calcium 8.7 mg/dL (8.4-10.2); Carbon Dioxide 26 mmol/L (22-30); Chloride 107 mmol/L (98-107); Glucose 97 mg/dL (74-99); Non-African American GFR(CKD) >90 (>60 ml/min/1.73 sqM); Potassium 3.7 mmol/L (3.5-5.1); Sodium 139 mmol/L (137-145)
[2021-01-02] MEDS: hydrALAZINE HCL 25 MG TAB PO SCH ×3 (08:32→22:03)
[2021-01-02] MEDS: busPIRone HCl 5 MG TAB PO SCH ×2 (08:33→20:27)
[2021-01-02] MEDS: METOPROLOL TARTRATE 25 MG TAB PO SCH (08:33)
[2021-01-02] MEDS: ASPIRIN 81 MG PO SCH (08:33)
[2021-01-02] MEDS: TAMSULOSIN 0.4 MG CAP.ER.24H PO SCH (08:33)
[2021-01-02] MEDS: FINASTERIDE 5 MG TAB PO SCH (08:33)
[2021-01-02] MEDS: ATORVASTATIN 40 MG TAB PO SCH (08:33)
[2021-01-02] MEDS: allopurinoL 300 MG TAB PO SCH (08:34)
[2021-01-02] MEDS: MONTELUKAST 10 MG TAB PO SCH (08:34)
[2021-01-02] MEDS: DULoxetine HCL 60 MG CAPSULE.DR PO SCH (08:34)
[2021-01-02] MEDS: FERROUS SULFATE 325 MG TAB PO SCH (08:34)
[2021-01-02] MEDS: buPROPion XL 300 MG TAB.ER.24H PO SCH (08:36)
[2021-01-02] MEDS: SYMBICORT 80-4.5 MCG INHALER INHALATION SCH ×2 (12:07→19:52)
[2021-01-02] MEDS ORDERED: VERAPAMIL 2.5 MG/ML 2 ML AMP ONE ×2 (12:58→13:41)
[2021-01-02] MEDS ORDERED: fentaNYL (PF) 50 MCG/ML 2 ML AMP ONE (12:58)
[2021-01-02] MEDS ORDERED: HEPARIN SODIUM 1,000 UN/ML (10ML VL) ONE (12:58)
[2021-01-02] MEDS ORDERED: LIDOCAINE 1% INJ 10MG/ML (20 ML MDV) ONE ×2 (12:58→13:46)
[2021-01-02] MEDS ORDERED: IV FLUID CONTINUATION 1,000 ML IV ONE (13:23)
[2021-01-02] MEDS ORDERED: fentaNYL (PF) 50 MCG/ML 2 ML AMP IV ONE (13:30)
[2021-01-02] MEDS ORDERED: LIDOCAINE 1% INJ 10MG/ML (20 ML MDV) SQ ONE ×4 (13:31→13:50)
[2021-01-02] MEDS: MIDAZOLAM 2 MG/2 ML VIAL IV ONE ×2 (13:32→13:35)
[2021-01-02] MEDS: VERAPAMIL SYRINGE (5 MG/10 ML) INTRAARTER ONE ×4 (13:35→13:44)
[2021-01-02] MEDS ORDERED: MIDAZOLAM 2 MG/2 ML VIAL IV ONE ×2 (13:43)
[2021-01-02] MEDS ORDERED: IOPAMIDOL-370 125ML BTL INJ ONE (14:12)
[2021-01-02] MEDS ORDERED: RX INFO: IV CONTRAST WAS GIVEN 1 EACH MISC MISCELLANE PRN (14:23)
[2021-01-02] MEDS ORDERED: SODIUM CHLORIDE 0.9% 1,000 ML IV SCH (14:30)
[2021-01-02] MEDS: ALPRAZolam 0.5 MG TAB PO PRN ×2 (15:07→22:03)
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
[2021-01-02 18:26] LABS: Appearance,Urine Clear (Clear); Bilirubin,Urine Negative (Negative); Blood,Urine Negative (Negative); Color,Urine Yellow; Glucose,Urine (UA) Negative (Negative); Ketones,Urine 1+ (Negative); Leukocyte Esterase,Urine Negative (Negative); Nitrite,Urine Negative (Negative); PH, Urine 5.5 (5.0-8.0); Protein,Urine Trace (Negative); Urobilinogen,Urine <2.0 mg/dL (<2.0)
[2021-01-02 18:58] LABS: Specific Gravity,Urine >1.050 (1.001-1.035)
[2021-01-02] MEDS: METOPROLOL TARTRATE 50 MG TAB PO SCH (20:27)
--- NOTE | 2021-01-02 20:32 | PN ---
PROGRESS NOTE DATE OF SERVICE: 01/02/2021 This 65-year-old gentleman who was admitted with chest pain had troponin 0.07, possible acute non ST elevation myocardial infarction. The patient also has CAD. The patient underwent cardiac catheterization today. Cardiac cath showed left main disease and cardiothoracic surgery has been consulted at this time. PAST MEDICAL HISTORY: Reviewed. REVIEW OF SYSTEMS: CARDIOVASCULAR As mentioned earlier. RESPIRATORY As mentioned earlier. GI No nausea, vomiting, or diarrhea. No dysuria or hematuria. NERVOUS No numbness or weakness. CURRENT MEDICATIONS: Reviewed include zyloprim, Xanax, aspirin, Lipitor, Symbicort, Wellbutrin, BuSpar. Doses reviewed. PHYSICAL EXAMINATION: Patient is alert, oriented x3. Pulse is 54, blood pressure 120/70, respiration 16, temperature normal, pulse ox 94% on 3 L. HEENT: Conjunctivae normal. Oral mucosa moist. NECK: No jugular venous distention. No lymph node enlargement. CARDIOVASCULAR: S1, S2, muffled. No S3, no S4, RESPIRATORY: Diminished breath sounds at the bases. Bilateral scattered rhonchi and crackles. Expiratory wheezing. ABDOMEN: Soft, nontender. LEGS: No edema, no swelling. NERVOUS SYSTEM: No focal deficits. LABS: CBC within normal limits and troponins noted. UA noted. Drug screen is positive for THC, benzodiazepines, opiates and oxycodone. ASSESSMENT: 1. Chest pain, possible acute dts-TC-tzdectc-elevation myocardial infarction with left main disease status post cardiac catheterization. Troponin 0.075. 2. Chronic obstructive pulmonary disease acute exacerbation. 3. Bronchial asthma acute exacerbation. 4. Acute purulent tracheobronchitis. 5. Elevated lactic acid, present on admission. 6. Increased WBC. 7. History of recent syncope and degenerative joint disease. 8. History of atrial flutter. 9. History of asthma, chronic obstructive pulmonary disease. 10.History of gastroesophageal reflux disease. 11.Hypertension. 12.History of degenerative joint disease. 13.History of benign prostatic hypertrophy. 14.History of sleep apnea. 15.History of chronic pain syndrome. 16.History of adenoidectomy. 17.History of bowel resection. 18.History of bipolar, depression, panic disorder. 19.History of nicotine dependence. 20.Tachycardia. RECOMMENDATIONS AND DISCUSSION: I recommend to continue current medication, continue symptomatic treatment. Otherwise continue the bronchodilators. Continue the antiplatelet agents. Beta blockers. Follow closely with Cardiology. Cardiothoracic Surgery has seen the patient. Recommend possible bypass. Prognosis guarded. See orders for details. Further recommendations to follow. MMODL / IJN: [id number] /
--- NOTE | 2021-01-02 21:00 | LTR ---
DATE OF SERVICE: January 02, [address] Shah: I had the pleasure of performing cardiac catheterization on Mr. Stack at [facility] on January 02 and a full copy of procedure note will be forwarded to you. In brief, he was found to have significant distal left main disease. In view of that, I have recommended proceeding with evaluation for possible coronary artery bypass grafting. I will keep you updated on his progress. Thank you again for allowing me to participate in his care. Please feel free to call for any questions. Sincerely, BETH / IJN: [id number] /
--- NOTE | 2021-01-02 21:00 | CC ---
CARDIAC CATHETERIZATION REPORT Mr. Stack is a 65-year-old male with known history of hypertension, hyperlipidemia, chronic tobacco use, who presented to the hospital with symptoms of progressive dyspnea, dizziness and had troponin elevation. In view of that, recommendation was made regarding cardiac catheterization. The procedure as well as the risks and the complications were discussed with the patient who is in full understanding and agreement. PROCEDURE DETAILS: Patient was brought to the computer lab para professional in a fasting state after receiving fentanyl and Benadryl and achieving moderate conscious sedated state. Using Xylocaine anesthesia and Seldinger technique, a 6-Ecuadorean sheath was introduced in the right radial artery. A wire was introduced in the ascending aorta, but there was difficulty advancing a 5- Ecuadorean 3.5 bend right Ruby because of severe vasospasm in the brachial area in spite of multiple doses of verapamil as well as sedation at that time. Using Xylocaine anesthesia, Seldinger technique a 6-Ecuadorean sheath was introduced in the right femoral artery. Selective right and left coronary angiography performed using 6-Ecuadorean 4 bend right and left Ruby catheter. Multiple views of the coronary artery including hemiaxial views were obtained. The right Ruby was used to cross the aortic valve and left ventricular end-diastolic pressure was calculated. Following that, the 6- Ecuadorean FR4 guiding catheter was introduced in the system. After cannulating the left main, a 0.014 balanced medium weight J-wire was advanced across the distal left main and positioned in the ramus intermedius. Subsequently an intravascular ultrasound [place] was advanced and images were obtained. Following that, catheter and sheath were removed. Hemostasis was obtained with deployment of an Angio-Seal in the right femoral artery and TR band in the right radial artery. The patient was returned to his room in stable condition. Of note, the patient received intra-arterial verapamil as well as 5000 units of intravenous heparin. There was no immediate complication. FINDINGS: FLUOROSCOPY: There was calcification involving the distal left main. 1. LEFT MAIN: This is a large-sized vessel trifurcating into left circumflex, left anterior descending artery and ramus intermedius. The left main distally has a 50% stenosis. 2. LEFT ANTERIOR DESCENDING ARTERY: This is a large-sized vessel, calcified proximally, has a 30-40 percent in the proximal segment. The rest of the vessel has no high-grade stenosis. 3. RAMUS INTERMEDIUS: This is a large-sized vessel reaching to the apical lateral wall. The ramus intermedius in the proximal segment has about a 70% eccentric lesion. 4. LEFT CIRCUMFLEX: This is a nondominant vessel giving rise to one obtuse marginal branch. The left circumflex proximally has a 40% to 50% plaque. The rest of the vessel has no high-grade stenosis. 5. RIGHT CORONARY ARTERY: This is a dominant vessel, moderate in caliber, bifurcating distally PDA and posterolateral segment branches. The right coronary artery in the proximal segment has a 20% plaque without any evidence of high-grade stenosis. 6. LEFT VENTRICULOGRAM: Left ventriculogram was not performed. INTRAVASCULAR ULTRASOUND: Imaging revealed calcification involving the distal left main. The lumen area in the ostium of the left main was 14.3 mm2 and at distal site of the bifurcation was 5.7 mm2 consistent with severe significant left main stenosis. IMPRESSION: 1. Calcified coronary arteries. 2. Significant distal left main disease. 3. Moderate disease in the LAD and the left circumflex with moderate significant disease in the ramus intermedius and mild disease in the right coronary artery. RECOMMENDATIONS: In view of findings and anatomy, I recommend proceeding with evaluation for possible coronary artery bypass grafting. Those findings and recommendations were discussed with the patient and he is full understanding and agreement. MMODL / IJN: [id number] /
[2021-01-03] MEDS: HYDROmorphone 0.5 MG/0.5 ML SYRINGE IVP PRN ×3 (00:30→19:29)
[2021-01-03] MEDS: NITROGLYCERIN OINT 1 INCH/GM PACKET TOPICAL SCH ×4 (00:46→23:04)
[2021-01-03] MEDS: oxyCODONE-APAP 10-325MG 1 EACH TAB PO PRN ×4 (04:16→22:00)
[2021-01-03 04:51] LABS: Chol/HDL Ratio 6.27; Cholesterol 138 mg/dL (0-200); LDL Cholesterol,Calculated 89.4 mg/dL (0.0-131.0)
--- NOTE | 2021-01-03 06:21 | US ---
EXAMINATION TYPE: US carotid duplex BILAT DATE OF EXAM: 01/02/2021 COMPARISON: NONE CLINICAL HISTORY: preop cabg. Pre op CABG. Previous smoker. Hypertension. EXAM MEASUREMENTS: RIGHT: Peak Systolic Velocity (PSV) cm/sec ----- Right CCA: 85.2 ----- Right ICA: 115.2 ----- Right ECA: 116.9 ICA/CCA ratio: 1.4 RIGHT: End Diastole cm/sec ----- Right CCA: 21.3 ----- Right ICA: 17.3 ----- Right ECA: 15.9 LEFT: Peak Systolic Velocity (PSV) cm/sec ----- Left CCA: 94.9 ----- Left ICA: 98.7 ----- Left ECA: 85.2 ICA/CCA ratio: 1.0 LEFT: End Diastole cm/sec ----- Left CCA: 23.7 ----- Left ICA: 27.6 ----- Left ECA: 11.9 VERTEBRALS (direction of flow): Right Vertebral: Antegrade Left Vertebral: Antegrade Rhythm: Arrhythmia Intimal thickening bilaterally. Plaque seen bilateral carotid bifurcations. Left ICA appears to be to rtuous. Elevated velocity within left proximal CCA. Oliveira scale images show mild peripheral hyperechoic plaque at bilateral carotid bulbs. Velocity measur ements and ratios in bilateral internal carotid arteries are within normal limits. IMPRESSION: No hemodynamically significant stenosis in either internal carotid artery. Note is made of underlying cardiac arrhythmia during real-time scanning, correlate clinically. Criteria for Assigning % of Stenosis / Diameter reduction (Estimation based on the indirect measurements of the internal carotid artery velocities (ICA PSV). 1. Normal (no stenosis)=ICA PSV < 125 cm/s: ratio < 2.0: ICA EDV<40 cm/s. 2. Less than 50% stenosis=ICA PSV < 125 cm/s: ratio < 2.0: ICA EDV<40 cm/s. 3. 50 to 69% stenosis=ICA PSV of 125 to 230 cm/s: ration 2.0 ? 4.0: ICA EDV 40-100 cm/s. 4. Greater than 70% stenosis to near occlusion= ICA PSV > 230 cm/s: ratio > 4.0: ICA EDV > 100 cm/s. 5. Near occlusion= ICA PSV velocities may be low or undetectable: variable ratio and ICA EDV. 6. Total occlusion=unable to detect flow.
--- NOTE | 2021-01-03 07:26 | XR ---
EXAMINATION TYPE: XR chest 2V DATE OF EXAM: 01/03/2021 COMPARISON: Chest x-ray and CT chest 3 days ago. HISTORY: Lung disease per order. TECHNIQUE: Frontal and lateral views of the chest are obtained. FINDINGS: There is no suspicious new focal air space opacity, pleural effusion, or pneumothorax seen . The cardiac silhouette size remains upper limits of normal. Retrocardiac opacity consistent with hiatal hernia is redemonstrated. Multilevel lateral spurring in thoracic spine again seen.. IMPRESSION: No acute cardiopulmonary process. No significant change from most recent prior studies.
[2021-01-03] MEDS: SYMBICORT 80-4.5 MCG INHALER INHALATION SCH ×2 (07:40→21:34)
[2021-01-03] MEDS: IPRATROPIUM 0.5 MG/2.5 ML NEBU INHALATION SCH ×4 (07:40→21:34)
[2021-01-03 08:05] LABS: Basophils % (A) 1 %; Eosinophils # (A) 0.3 k/uL (0-0.7); Eosinophils % (A) 4 %; HCT 37.3 % (39.0-53.0); HGB 12.8 gm/dL (13.0-17.5); Lymphocytes # (A) 0.9 k/uL (1.0-4.8); Lymphocytes % (A) 15 %; MCH 31.1 pg (25.0-35.0); MCHC 34.2 g/dL (31.0-37.0); MCV 90.8 fL (80.0-100.0); Mean Platelet Volume 6.8; Monocytes # (A) 0.4 k/uL (0-1.0); Monocytes % (A) 7 %; Neutrophils # (A) 4.3 k/uL (1.3-7.7); Neutrophils % (A) 72 %; Platelet Count 196 k/uL (150-450); RDW 15.1 % (11.5-15.5)
--- NOTE | 2021-01-03 08:16 | P.PN ---
Subjective Progress Note Date: 01/03/21 Principal diagnosis: Coronary artery disease with left main disease, non-STEMI this admission. Previous medical history of atrial flutter, hypertension, COPD, obstructive sleep apnea without CPAP use, status post uvulectomy, previous tobacco dependence, recent pneumonia, GI bleed, anxiety/depression, PTSD, marijuana use Patient is currently laying in bed in no acute distress. Denies any chest pain, states shortness of breath is about the same. He is oxygenating well on room air. Actively using incentive spirometry and able to achieve 2000 mL. States he has been ambulatory in his room without difficulty. Preoperative teaching continues, preoperative testing continues. Objective - Vital Signs Vital signs: Vital Signs Temp 97.7 F 01/03/21 04:05 Pulse 60 01/03/21 07:56 Resp 18 01/03/21 04:05 BP 160/79 01/03/21 04:05 Pulse Ox 98 01/03/21 04:05 Intake & Output 01/02/21 01/03/21 01/03/21 18:59 06:59 18:59 Intake Total 125 118 Output Total 200 Balance -75 118 Weight 91 kg Intake: IV 50 Intake, IV Titration 75 Amount Sodium Chloride 0.9% 1, 75 000 ml @ 75 mls/hr IV . [id number] COUNT INCLUDES THE [facility] Rx#:[id number] Oral 0 118 Output: Urine 200 Other: Voiding Method Toilet Toilet # Voids 1 - Exam CONSTITUTIONAL: Appears comfortable, cooperative, no acute distress RESPIRATORY: Lungs sounds diminished bilaterally. Respirations even, nonlabored. Currently on room air with oxygen saturation 98%. Able to achieve 2000 mL on incentive spirometry. Strong cough. CARDIOVASCULAR: S1, S2 present. Regular rate and rhythm, sinus rhythm on telemetry. Sternum stable. Palpable peripheral pulses bilaterally. No edema present. No calf pain or tenderness noted. GASTROINTESTINAL: Abdomen soft, nontender, nondistended. Active bowel sounds present 4 quadrants. Tolerating diet. GENITOURINARY: Continues to void INTEGUMENTARY: Skin is warm and dry with evidence of good perfusion. NEUROLOGIC: Cranial nerves II through XII intact MUSKULOSKELETAL: Able to move all extremities, strength equal bilaterally, gait normal PSYCHIATRIC: Alert and oriented to person place and time, appropriate affect, intact judgment and insight - Allied health notes Allied health notes reviewed: nursing - Labs CBC & Chem 7: 01/01/21 12:27 01/02/21 07:05 Labs: Abnormal Lab Results - Last 24 Hours (Table) 01/02/21 01/02/21 Range/Units 07:05 18:00 HDL Cholesterol 22.0 L (40.0-60.0) mg/dL Ur Specific [place] >1.050 H (1.001-1.035) Urine Protein Trace H (Negative) Urine Ketones 1+ H (Negative) Microbiology - Last 24 Hours (Table) 01/02/21 18:00 Nasal Screen MRSA/MSSA - Preliminary Nasal Swab 01/01/21 12:27 Blood Culture - Preliminary Blood No Growth after 24 hours - Imaging and Cardiology Chest x-ray: report reviewed, image reviewed Assessment and Plan Assessment: 1. Coronary artery disease with left main disease 2. Non-STEMI this admission 3. History of atrial flutter, currently sinus rhythm 4. Hypertension 5. COPD, FEV1 80% of predicted 6. Obstructive sleep apnea without CPAP use, status post uvulectomy 7. Previous tobacco dependence 8. Recent pneumonia 9. GI bleed 10. Anxiety/depression, PTSD 11. Marijuana use Plan: 1. Continue to maximize medical therapy with aspirin, statin, beta emerald therapy. 2. Encourage incentive spirometry use 3. Increase activity, ambulate as tolerated. We'll perform 5 m walk test today 4. Pulmonology consulted for surgical clearance, appreciate recommendations 5. GI/DVT prophylaxis 6. Timing of surgery to be determined 7. More recommendations to follow Time with Patient: Greater than 30
[2021-01-03 08:18] LABS: African American GFR (CKD) >90 (>60 ml/min/1.73 sqM); Anion Gap 6 mmol/L; Blood Urea Nitrogen 11 mg/dL (9-20); Calcium 8.8 mg/dL (8.4-10.2); Carbon Dioxide 25 mmol/L (22-30); Chloride 109 mmol/L (98-107); Glucose 98 mg/dL (74-99); Magnesium 1.7 mg/dL (1.6-2.3); Non-African American GFR(CKD) >90 (>60 ml/min/1.73 sqM); Potassium 3.5 mmol/L (3.5-5.1); Sodium 140 mmol/L (137-145)
[2021-01-03] MEDS: busPIRone HCl 5 MG TAB PO SCH ×2 (09:35→20:38)
[2021-01-03] MEDS: hydrALAZINE HCL 25 MG TAB PO SCH ×3 (09:35→20:38)
[2021-01-03] MEDS: FERROUS SULFATE 325 MG TAB PO SCH (09:36)
[2021-01-03] MEDS: MONTELUKAST 10 MG TAB PO SCH (09:36)
[2021-01-03] MEDS: ATORVASTATIN 40 MG TAB PO SCH (09:36)
[2021-01-03] MEDS: ASPIRIN 81 MG PO SCH (09:36)
[2021-01-03] MEDS: DULoxetine HCL 60 MG CAPSULE.DR PO SCH (09:36)
[2021-01-03] MEDS: allopurinoL 300 MG TAB PO SCH (09:36)
[2021-01-03] MEDS: TAMSULOSIN 0.4 MG CAP.ER.24H PO SCH (09:36)
[2021-01-03] MEDS: METOPROLOL TARTRATE 50 MG TAB PO SCH ×2 (09:36→20:38)
[2021-01-03] MEDS: buPROPion XL 300 MG TAB.ER.24H PO SCH (09:37)
[2021-01-03] MEDS: HEPARIN SODIUM,PORCINE/PF 5,000 UNIT/0.5 ML SYRINGE SQ SCH ×3 (09:37→23:04)
[2021-01-03] MEDS: FINASTERIDE 5 MG TAB PO SCH (09:38)
[2021-01-03] MEDS: PANTOPRAZOLE 40 MG TABLET PO SCH (09:39)
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
[2021-01-03] MEDS: methylPREDNISolone SOD SUCCI 40 MG/ML 1 ML VIAL IV SCH ×2 (11:57→20:38)
--- NOTE | 2021-01-03 12:35 | P.PN ---
Subjective This is a pleasant 65-year-old male past medical history significant for COPD, former nicotine dependence, hypertension, obstructive sleep apnea, anx iety/depression, marijuana use. 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 He denies any prior documented history of coronary artery disease. We have been asked to see in consultation for chest pain. Symptoms of chest discomfort and progressive dyspnea with mild troponin elevation recommended that patient proceed with coronary angiography. Patient underwent cardiac catheterization with Dr. Curtis 01/02/21 which revealed significant distal left main disease, moderate disease in LAD and left circumflex with moderate significant disease in the ramus intermedius and mild disease in the RCA. Calcified coronary arteries. It was recommended to proceed with evaluation for possible coronary artery bypa ss grafting. CT surgery was consulted. Echocardiogram revealed EF 55-60%, trace MR, trace TR. Patient seen and examined at bedside, no acute distress. Complains of chest discomfort that is worse with ambulation. Back pain and shoulder pain. He denies palpitations, shortness of breath. He is using incentive spirometer able to achieve 1500-2000Ml. Telemetry reviewed patient in sinus mechanism heart rate 50 to 60s. Laboratory data reviewed. C6, hemoglobin 12.8, platelets 196, sodium 140, potassium 3.5, serum creatinine 0.79, MB 111, magnesium 1.7, TSH within normal limits. Patient currently maintained on aspirin 81 mg daily, atorvastatin 40 mg daily, hydralazine 75 mg 3 times a day, metoprolol tartrate 50 mg twice a day, Nitro ointment Q8hrs PHYSICAL EXAMINATION Blood pressure 140/82 heart rate 60 afebrile and maintaining oxygen saturation 100% on 3 L nasal cannula CONSTITUTIONAL: No apparent distress. HEENT: Head is normocephalic. No JVD. No carotid bruit. CHEST EXAMINATION: Lungs are clear to auscultation. HEART EXAMINATION: Regular rate and rhythm. S1, S2 heard. No gallops or rub. ABDOMEN: Soft, nontender. Positive bowel sounds. EXTREMITIES: 2+ peripheral pulses, no lower extremity edema and no calf tenderness. Right Radial site clean dry intact no hematoma 2+ pulses Right Groin site clean dry intact, mild bruising, no hematoma 2+ peripheral pulses NEUROLOGIC EXAMINATION: Patient is awake, alert and oriented x3. ASSESSMENT NSTEMI Coronary artery disease Hypertension COPD Obstructive sleep apnea PLAN -Continue aspirin, statin, beta emerald -Encourage incentive spirometry use -Pre operative testing per CT surgery -Pulmonary has been consulted for surgical clearance -Per CT surgery- at this time, timing of surgery is to be determined -We will continue to follow Nurse Practitioner note has been reviewed, I agree with a documented findings and plan of care. Patient was seen and examined. Objective - Vital Signs Vital signs: Vital Signs Temp 98.0 F 01/03/21 07:50 Pulse 60 01/03/21 07:56 Resp 18 01/03/21 07:50 BP 148/82 01/03/21 07:50 Pulse Ox 100 01/03/21 07:50 Intake & Output 01/02/21 01/03/21 01/03/21 18:59 06:59 18:59 Intake Total 125 118 240 Output Total 200 Balance -75 118 240 Weight 91 kg Intake: IV 50 Intake, IV Titration 75 Amount Sodium Chloride 0.9% 1, 75 000 ml @ 75 mls/hr IV . [id number] [facility] Rx#:[id number] Oral 0 118 240 Output: Urine 200 Other: Voiding Method Toilet Toilet Toilet # Voids 1 - Labs CBC & Chem 7: 01/03/21 07:23 01/03/21 07:23 Labs: Abnormal Lab Results - Last 24 Hours (Table) 01/02/21 01/02/21 01/03/21 Range/Units 07:05 18:00 07:23 RBC (4.30-5.90) m/uL Hgb (13.0-17.5) gm/dL Hct (39.0-53.0) % Lymphocytes # (1.0-4.8) k/uL Chloride 109 H (98-107) mmol/L HDL Cholesterol 22.0 L (40.0-60.0) mg/dL Ur Specific [place] >1.050 H (1.001-1.035) Urine Protein Trace H (Negative) Urine Ketones 1+ H (Negative) 01/03/21 Range/Units 07:23 RBC 4.10 L (4.30-5.90) m/uL Hgb 12.8 L (13.0-17.5) gm/dL Hct 37.3 L (39.0-53.0) % Lymphocytes # 0.9 L (1.0-4.8) k/uL Chloride (98-107) mmol/L HDL Cholesterol (40.0-60.0) mg/dL Ur Specific [place] (1.001-1.035) Urine Protein (Negative) Urine Ketones (Negative) Microbiology - Last 24 Hours (Table) 01/02/21 18:00 Nasal Screen MRSA/MSSA - Preliminary Nasal Swab 01/01/21 12:27 Blood Culture - Preliminary Blood No Growth after 24 hours
--- NOTE | 2021-01-03 13:57 | CDI ---
Documentation Clarification Form Date: 01/03/2021 01:42:45 PM From: Vashti Yarbrough CCS, CCDS Admit Date: 01/02/2021 08:15:00 AM Patient Name: Milo Stack Visit Number: [id number] Discharge Date: ATTENTION: The Clinical Documentation Specialists (CDI) and [facility] Coding Staff appreciate your assistance in clarifying documentation. Please respond to the clarification below the line at the bottom and electronically sign. The CDI & [facility] Coding staff will review the response and follow-up if needed. Please note: Queries are made part of the Legal Health Record. If you have any questions, please contact the author of this message via ITS. Dr. Nehemiah Granados: Asthma is documented in the patient's history in the 12/31 ED, the 12/31 H/P, the 01/02 Cardiothoracic Consult, subsequent Progress Notes and the 01/03 Pulmonary Consult without further specificity. Additional clarification regarding the type of asthma is requested. History/risk factors per the 12/31 H/P: Atrial flutter, Asthma, COPD, GERD, DJD, Pneumonia, GI Bleed, Former smoker. Clinical Indicators: Presented to the ED on 12/31 with SOB, hyperventilating and anxious. Dizzy today and fall at home. ED Clinical Impression: Chest pain, COPD Exacerbation. Admitted to Observation Status. 12/31 VS: T 97.9, P 120, R 26 - 42 (SOB, labored, Deep, Tachypnea), BP 116/70, PO 98 RA - 4Lnc, BMI: 28.8 12/31 LAB: WBC 10.9, Cr 1.43, Glucose 105, Calcium 10.9, Alk Phos 177, Troponin 0.056, Albumin 5.2 12/31 CXR: No acute pulmonary process. 01/02 VS: T 98.1, P 60, R 21 (SOB), BP 127/75, PO 989 RA - 100 2-3Lnc Treatment 12/31: IV Ativan, IV Na Cl 1,000 mls 2 130 mls/hr q7H, IV Na Cl 1,000 mls @ 999 mls/hr q1H, IV Morphine, po Buspar, po Apresoline 01/02: IV Heparin, INH Symbicort, po Singulair Home meds: Buspar, Singulair, INH Duoneb: Ipratropium-Albuterol, INH Atrovent, INH Trelegy, INH Ventolin Please clarify the type and severity of asthma, if known: Severe persistent asthma without exacerbation (Template Last Revised: September 2020) MTDD
--- NOTE | 2021-01-03 19:26 | PN ---
PROGRESS NOTE DATE OF SERVICE: 01/03/2021 This 65 -year-old gentleman with past medical history of multiple medical problems admitted with chest pain, had left main disease. Cardiothoracic surgery is planning possible surgery. No chest pain. No palpitations. No fever. PHYSICAL EXAMINATION: Alert and oriented x3. Pulse is 67. Blood pressure 116/83. Respirations 18. Temperature 98.1, pulse ox 97% on room air. HEENT: Conjunctivae normal. NECK: No JVD. CARDIOVASCULAR: S1, S2 muffled. RESPIRATORY SYSTEM: Breath sounds diminished at the bases. Scattered rhonchi. ABDOMEN: Soft. NERVOUS SYSTEM: No focal deficits. LABS: WBC 6, hemoglobin 12.8. Other labs are noted. ASSESSMENT: 1. Chest pain possible acute rkz-EA-ylxkxei-elevation myocardial infarction with left main disease status post cardiac catheterization, troponin 0.075. 2. Chronic obstructive pulmonary disease acute exacerbation. 3. Bronchial asthma acute exacerbation. 4. Acute purulent tracheobronchitis. 5. Elevated lactic acid, present on admission. 6. Increased WBC. 7. History of recent syncope and degenerative joint disease. 8. History atrial flutter. 9. History of asthma, chronic obstructive pulmonary disease. 10.Gastroesophageal reflux disease. 11.Hypertension. 12.History of degenerative joint disease. 13.History of benign prostatic hypertrophy. 14.History of sleep apnea. 15.History of chronic pain syndrome. 16.History of adenoidectomy. 17.History of bowel resection. 18.History of bipolar, depression, panic disorder. 19.History of nicotine dependence. 20.Tachycardia. RECOMMENDATIONS AND DISCUSSION: I recommend to continue current medications, continue with monitoring, symptomatic treatment. Otherwise, at this time, I recommend optimize the bronchodilator treatment. Continue the antiplatelet agents. Closely follow with Cardiology, Cardiothoracic surgery, pulmonology. Prognosis guarded because of multiple complex medical issues. Further recommendations to follow. A copy of dictation being forwarded to Dr. Shah, who is the primary physician. MMODL / IJN: [id number] /
[2021-01-03 20:27] LABS: Glucose,Whole Blood 162 mg/dL (75-99)
[2021-01-03] MEDS: ALPRAZolam 0.5 MG TAB PO PRN (20:38)
[2021-01-03] MEDS: INSULIN ASPART (NovoLOG) 100 UNIT/ML VIAL SQ SCH (20:38)
[2021-01-03] MEDS: MUPIROCIN 2% OINT 22 GM TUBE NASAL SCH (20:39)
[2021-01-03] MEDS: hydrOXYzine pamoate 25 MG CAP PO PRN (23:04)
[2021-01-04] MEDS: HYDROmorphone 0.5 MG/0.5 ML SYRINGE IVP PRN ×4 (00:01→19:40)
[2021-01-04] MEDS: oxyCODONE-APAP 10-325MG 1 EACH TAB PO PRN ×4 (03:29→22:34)
[2021-01-04 04:49] LABS: Hepatitis A Antibody IgM Non-Reactive (Non-Reactive); Hepatitis B Core IgM Non-Reactive (Non-Reactive); Hepatitis B Surface Antigen Non-Reactive (Non-Reactive); Hepatitis C IgG Antibody Non-Reactive (Non-Reactive)
[2021-01-04] MEDS: INSULIN ASPART (NovoLOG) 100 UNIT/ML VIAL SQ SCH ×4 (05:53→20:18)
[2021-01-04] MEDS: PANTOPRAZOLE 40 MG TABLET PO SCH (05:54)
[2021-01-04 06:15] LABS: Glucose,Whole Blood 137 mg/dL (75-99)
[2021-01-04] MEDS: SYMBICORT 80-4.5 MCG INHALER INHALATION SCH (07:15)
[2021-01-04] MEDS: IPRATROPIUM 0.5 MG/2.5 ML NEBU INHALATION SCH ×3 (07:15→15:44)
[2021-01-04] MEDS: hydrALAZINE HCL 25 MG TAB PO SCH ×3 (08:58→20:20)
[2021-01-04] MEDS: HEPARIN SODIUM,PORCINE/PF 5,000 UNIT/0.5 ML SYRINGE SQ SCH (08:58)
[2021-01-04] MEDS: FERROUS SULFATE 325 MG TAB PO SCH (08:58)
[2021-01-04] MEDS: busPIRone HCl 5 MG TAB PO SCH ×2 (08:59→20:20)
[2021-01-04] MEDS: FINASTERIDE 5 MG TAB PO SCH (08:59)
[2021-01-04] MEDS: TAMSULOSIN 0.4 MG CAP.ER.24H PO SCH (08:59)
[2021-01-04] MEDS: methylPREDNISolone SOD SUCCI 40 MG/ML 1 ML VIAL IV SCH ×2 (08:59→20:20)
[2021-01-04] MEDS: allopurinoL 300 MG TAB PO SCH (08:59)
[2021-01-04] MEDS: DULoxetine HCL 60 MG CAPSULE.DR PO SCH (08:59)
[2021-01-04] MEDS: ATORVASTATIN 40 MG TAB PO SCH (09:03)
[2021-01-04] MEDS: NITROGLYCERIN OINT 1 INCH/GM PACKET TOPICAL SCH ×3 (09:03→22:34)
[2021-01-04] MEDS: ASPIRIN 81 MG PO SCH (09:03)
[2021-01-04] MEDS: MONTELUKAST 10 MG TAB PO SCH (09:03)
[2021-01-04] MEDS: METOPROLOL TARTRATE 50 MG TAB PO SCH ×2 (09:04→20:20)
[2021-01-04] MEDS: buPROPion XL 300 MG TAB.ER.24H PO SCH (09:04)
[2021-01-04] MEDS ORDERED: HEPARIN SODIUM 1,000 UN/ML (10ML VL) IV PRN (09:31)
--- NOTE | 2021-01-04 10:13 | P.PN ---
Subjective Progress Note Date: 01/04/21 Principal diagnosis: significant coronary artery disease involving left main Acute MT with elevated troponin End-stage lung disease oxygen-dependent intermittent prednisone dependent COPD with acute exacerbation Recent left-sided pneumonia Sleep disorder breathing and sleep apnea status post UPPP patient refused the CPAP machine multiple times in the past Morbid obesity History of intermittent atrial flutter 01/04/2021, patient appears slightly better but have ongoing congestion nonproductive wet cough, patient remains on steroids bronchodilator and broad- spectrum antibiotics to optimize lung condition patient has been ordered PFT and arterial blood gases this is a 65-year-old male with end-stage severe COPD chronic history of smoking and nicotine use also has history of recurrent pneumonia and states intermittent prednisone-dependent, oxygen dependent COPDpatient was recently hospitalized for left-sided pneumonia tracheobronchitis had a bronchial lavage and washing which she tolerated well discharged in stable condition 2 days prior to hospitalization demented and chest pain, patient admitted into the hospital, recent echo revealed ejection fraction of 55%, with trace MR and TR, patient was noted to have elevated troponins underwent cardiac cath angiogram found to have left main disease, patient is being eval for bypass surgery, patient has ongoing shortness of breath sputum production and wheezing has been on broad-spectrum antibiotics cardiothoracic surgery is evaluating the patient Objective - Vital Signs Vital signs: Vital Signs Temp 97.6 F 01/04/21 09:10 Pulse 69 01/04/21 09:10 Resp 18 01/04/21 09:10 BP 146/68 01/04/21 09:10 Pulse Ox 92 L 01/04/21 09:10 Intake & Output 01/03/21 01/04/21 01/04/21 18:59 06:59 18:59 Intake Total 240 Output Total 400 Balance -160 Weight 90 kg Intake: Oral 240 Output: Urine 400 Other: Voiding Method Toilet Toilet Toilet - Exam - Constitutional General appearance: average body habitus, cooperative - Neck Neck: normal ROM Carotids: bilateral: upstroke normal Thyroid: bilateral: normal size - Respiratory Respiratory: bilateral: diminished, wheezing - Cardiovascular Rhythm: regular Heart sounds: normal: S1, S2 - Gastrointestinal General gastrointestinal: decreased bowel sounds, normal bowel sounds, soft - Integumentary Integumentary: normal turgor - Neurologic Neurologic: CNII-XII intact - Musculoskeletal Musculoskeletal: gait normal, generalized weakness, strength equal bilaterally - Psychiatric Psychiatric: A&O x's 3, appropriate affect, intact judgment & insight - Labs CBC & Chem 7: 01/03/21 07:23 01/03/21 07:23 Labs: Abnormal Lab Results - Last 24 Hours (Table) 01/03/21 01/04/21 Range/Units 20:02 05:51 POC Glucose (mg/dL) 162 H 137 H (75-99) mg/dL Microbiology - Last 24 Hours (Table) 01/01/21 12:27 Blood Culture - Preliminary Blood No Growth after 48 hours Assessment and Plan Assessment: significant coronary artery disease involving left main Acute MT with elevated troponin End-stage lung disease oxygen-dependent intermittent prednisone dependent COPD Recent left-sided pneumonia Sleep disorder breathing and sleep apnea status post UPPP patient refused the CPAP machine multiple times in the past Morbid obesity History of intermittent atrial flutter Plan: continue bronchodilator Continue antibiotics Deep breathing exercise and a incentive spirometry IV steroids Further plan of care as per clinical response of the patient pending arterial blood gas And bedside spirometry Time with Patient: Greater than 30
[2021-01-04 10:15] LABS: Basophils % (A) 0 %; Eosinophils % (A) 0 %; HGB 11.7 gm/dL (13.0-17.5); Lymphocytes # (A) 0.6 k/uL (1.0-4.8); Lymphocytes % (A) 9 %; MCH 31.2 pg (25.0-35.0); MCHC 34.4 g/dL (31.0-37.0); MCV 90.6 fL (80.0-100.0); Mean Platelet Volume 6.9; Monocytes # (A) 0.4 k/uL (0-1.0); Monocytes % (A) 6 %; Neutrophils # (A) 5.8 k/uL (1.3-7.7); Neutrophils % (A) 84 %; Platelet Count 195 k/uL (150-450); RBC 3.75 m/uL (4.30-5.90); RDW 15.1 % (11.5-15.5); WBC 6.8 k/uL (3.8-10.6)
[2021-01-04 10:42] LABS: Partial Thromboplastin Time 22.6 sec (22.0-30.0); Prothrombin Time 10.4 sec (9.0-12.0)
--- NOTE | 2021-01-04 10:45 | P.PN ---
Subjective Progress Note Date: 01/04/21 Principal diagnosis: Coronary artery disease with left main disease, non-STEMI this admission. Previous medical history of atrial flutter, hypertension, COPD, obstructive sleep apnea without CPAP use, status post uvulectomy, previous tobacco dependence, recent pneumonia, GI bleed, anxiety/depression, PTSD, marijuana use Patient is currently laying in bed in no acute distress. Denies any chest pain, shortness of breath. Does continue to have a harsh cough with activity. Oxygen saturation in the low to mid 90s on room air. Actively using incentive spirometry and able to achieve 2000 mL. States he has been ambulatory in his room without difficulty. Preoperative teaching continues. Patient is currently being treated by pulmonology for pneumonia with ceftriaxone and IV Solu-Medrol. Objective - Vital Signs Vital signs: Vital Signs Temp 97.6 F 01/04/21 09:10 Pulse 69 01/04/21 09:10 Resp 18 01/04/21 09:10 BP 146/68 01/04/21 09:10 Pulse Ox 92 L 01/04/21 09:10 Intake & Output 01/03/21 01/04/21 01/04/21 18:59 06:59 18:59 Intake Total 240 Output Total 400 Balance -160 Weight 90 kg Intake: Oral 240 Output: Urine 400 Other: Voiding Method Toilet Toilet Toilet - Exam CONSTITUTIONAL: Appears comfortable, cooperative, no acute distress RESPIRATORY: Lungs sounds diminished with coarse breath sounds in the bases bilaterally. Respirations even, nonlabored. Currently on room air with oxygen saturation 92%. Able to achieve 2000 mL on incentive spirometry. Strong harsh cough. CARDIOVASCULAR: S1, S2 present. Regular rate and rhythm, sinus rhythm on telemetry. Sternum stable. Palpable peripheral pulses bilaterally. No edema present. No calf pain or tenderness noted. GASTROINTESTINAL: Abdomen soft, nontender, nondistended. Active bowel sounds present 4 quadrants. Tolerating diet. GENITOURINARY: Continues to void INTEGUMENTARY: Skin is warm and dry with evidence of good perfusion. NEUROLOGIC: Cranial nerves II through XII intact MUSKULOSKELETAL: Able to move all extremities, strength equal bilaterally, gait normal PSYCHIATRIC: Alert and oriented to person place and time, appropriate affect, intact judgment and insight - Allied health notes Allied health notes reviewed: nursing - Labs CBC & Chem 7: 01/04/21 09:50 01/03/21 07:23 Labs: Abnormal Lab Results - Last 24 Hours (Table) 01/03/21 01/04/21 01/04/21 Range/Units 20:02 05:51 09:50 RBC 3.75 L (4.30-5.90) m/uL Hgb 11.7 L (13.0-17.5) gm/dL Hct 34.0 L (39.0-53.0) % Lymphocytes # 0.6 L (1.0-4.8) k/uL POC Glucose (mg/dL) 162 H 137 H (75-99) mg/dL Microbiology - Last 24 Hours (Table) 01/01/21 12:27 Blood Culture - Preliminary Blood No Growth after 48 hours - Imaging and Cardiology Chest x-ray: report reviewed, image reviewed Assessment and Plan Assessment: 1. Coronary artery disease with left main disease 2. Non-STEMI this admission 3. Pneumonia at this admission, currently treated with ceftriaxone and IV Solu- Medrol 4. History of atrial flutter, currently sinus rhythm 5. Hypertension 6. COPD, FEV1 80% of predicted 7. Obstructive sleep apnea without CPAP use, status post uvulectomy 8. Previous tobacco dependence 9. Recent pneumonia 10. GI bleed 11. Anxiety/depression, PTSD 12. Marijuana use Plan: 1. Continue to maximize medical therapy with aspirin, statin, beta emerald therapy. 2. Encourage incentive spirometry use. Antibiotics, steroids per pulmonology 3. Increase activity, ambulate as tolerated. 5 m walk test performed, #1 5.54 seconds, #2 4.97 seconds, #3 5.45 seconds. He tolerated without difficulty 4. Pulmonology consulted for surgical clearance, appreciate recommendations 5. GI/DVT prophylaxis 6. Our plan is for myocardial revascularization with left internal mammary artery and endoscopic vein harvest, ligation of left atrial appendage with Dr. Zayas on 01/10/2021 allowing time for patient to be medically optimized including pulmonary treatment 7. More recommendations to follow Time with Patient: Greater than 30
--- NOTE | 2021-01-04 11:43 | PN ---
PROGRESS NOTE HISTORY: The patient is a 65-year-old male who presented with symptoms of progressive dyspnea, dizziness, and had mild troponin elevation. Underwent cardiac catheterization and had severe left main disease. He is scheduled to undergo coronary artery bypass grafting. He is doing well this morning. He has continued to have some dyspnea, has some chest discomfort at times with coughing. He denies any dizziness. No palpitations. He denies any nausea. He continued to be in sinus mechanism. Continues on aspirin once a day, Lipitor 40 mg daily, iron, metoprolol tartrate 50 mg twice a day, nitro paste 1 inch every 8 hours. PHYSICAL EXAMINATION: Blood pressure running in the 130s with a heart rate in 60s. LUNGS: Clear. HEART: Regular rate and rhythm. S1, S2. No S3 with systolic murmur. No diastolic murmur, no rub. ABDOMEN: Soft nontender. EXTREMITIES: No edema. LAB DATA: Lab data revealed a hemoglobin of 12.8. His TSH is 1.89. IMPRESSION: 1. History of coronary artery disease with significant left main disease, scheduled to undergo surgical intervention next week. 2. History of hypertension. 3. History of chronic obstructive lung disease. RECOMMENDATIONS: From the cardiac standpoint, put IV heparin, continue his medical regimen. Increase his level of activity. Will await the determination of day for surgery next week. MMODL / IJN: [id number] /
[2021-01-04 11:58] LABS: Glucose,Whole Blood 105 mg/dL (75-99)
[2021-01-04] MEDS ORDERED: IPRATROPIUM-ALBUTEROL 3 ML NEB INHALATION PRN (16:18)
[2021-01-04 16:41] LABS: Glucose,Whole Blood 121 mg/dL (75-99)
[2021-01-04] MEDS: MUPIROCIN 2% OINT 22 GM TUBE NASAL SCH ×2 (17:13→20:21)
[2021-01-04] MEDS: HEPARIN SOD,PORK IN 0.45% NACL 25,000 UNIT in 0.45% NACL 1 250ML.BAG IV SCH ×2 (17:13→22:34)
--- NOTE | 2021-01-04 17:14 | PN ---
PROGRESS NOTE DATE OF SERVICE: 01/04/2021. HISTORY: This 65-year-old gentleman admitted with chest pain, possible acute upn-UW-vqiqukt- elevation myocardial infarction, had left main disease. The patient is scheduled for surgery this coming Wednesday. The patient is complaining of shortness of breath and cough. No chest pain. No palpitations. No fever. PHYSICAL EXAMINATION: On exam, alert and oriented x3. Pulse 56, blood pressure 160/70, respiration 16, temperature 97.9, pulse ox 98% on room air. HEENT: Normocephalic, atraumatic. HEART: S1, S2 muffled. RESPIRATORY SYSTEM: Breath sounds diminished at the bases. Few scattered rhonchi present. ABDOMEN: Soft. NERVOUS SYSTEM: No focal deficits. LABS: WBC 6.8, hemoglobin 7.9, glucose noted. ASSESSMENT: 1. Chest pain possible acute vgl-VX-zngaury-elevation myocardial infarction with left main disease status post cardiac catheterization. Troponin 0.075. 2. Chronic obstructive pulmonary disease acute exacerbation. 3. Bronchial asthma acute exacerbation. 4. Acute purulent tracheobronchitis. 5. Elevated lactic acid, present on admission, improved. 6. Increased WBC. 7. History of recent syncope and degenerative joint disease. 8. History of atrial flutter. 9. History of asthma and chronic obstructive pulmonary disease. 10.GERD. 11.Hypertension. 12.History of degenerative joint disease. 13.History of benign prostatic hypertrophy. 14.History of sleep apnea history of chronic pain syndrome. 15.History of adenoidectomy. 16.History of bowel resection. 17.History of bipolar, depression, panic disorder. 18.Nicotine dependence. 19.Tachycardia. RECOMMENDATIONS: Continue current management and treatment. Otherwise optimize bronchodilator treatment. See orders for details. Closely follow with cardiology and cardiothoracic surgery. Guarded prognosis. Further recommendations to follow. MMODL / IJN: [id number] /
[2021-01-04] MEDS: BUDESONIDE 1 MG/2 ML NEBU INHALATION SCH (18:02)
[2021-01-04] MEDS: FORMOTEROL FUMARATE 20 MCG/2 ML NEBU INHALATION SCH (18:03)
[2021-01-04] MEDS ORDERED: ACETYLCYSTEINE 800 MG/4 ML VIAL INHALATION SCH (20:00)
[2021-01-04] MEDS: IPRATROPIUM-ALBUTEROL 3 ML NEB INHALATION SCH (20:15)
[2021-01-04] MEDS: hydrOXYzine pamoate 25 MG CAP PO PRN (20:20)
[2021-01-04] MEDS: ALPRAZolam 0.5 MG TAB PO PRN (20:20)
[2021-01-04 20:39] LABS: Glucose,Whole Blood 148 mg/dL (75-99)
[2021-01-05] MEDS: HYDROmorphone 0.5 MG/0.5 ML SYRINGE IVP PRN ×5 (00:46→22:03)
[2021-01-05] MEDS: oxyCODONE-APAP 10-325MG 1 EACH TAB PO PRN ×4 (05:08→20:56)
[2021-01-05 06:13] LABS: Glucose,Whole Blood 119 mg/dL (75-99)
[2021-01-05] MEDS: INSULIN ASPART (NovoLOG) 100 UNIT/ML VIAL SQ SCH ×4 (06:22→20:26)
[2021-01-05] MEDS: PANTOPRAZOLE 40 MG TABLET PO SCH (06:26)
[2021-01-05 06:38] LABS: Basophils % (A) 0 %; Eosinophils % (A) 0 %; HCT 33.7 % (39.0-53.0); HGB 11.9 gm/dL (13.0-17.5); Lymphocytes # (A) 0.6 k/uL (1.0-4.8); Lymphocytes % (A) 6 %; MCH 31.7 pg (25.0-35.0); MCHC 35.2 g/dL (31.0-37.0); Mean Platelet Volume 7.8; Monocytes # (A) 0.4 k/uL (0-1.0); Monocytes % (A) 4 %; Neutrophils % (A) 89 %; Platelet Count 176 k/uL (150-450); RBC 3.75 m/uL (4.30-5.90)
[2021-01-05 06:44] LABS: INR 0.9 (<1.2); Partial Thromboplastin Time 42.1 sec (22.0-30.0); Prothrombin Time 10.2 sec (9.0-12.0)
[2021-01-05 07:17] LABS: African American GFR (CKD) >90 (>60 ml/min/1.73 sqM); Anion Gap 4 mmol/L; Blood Urea Nitrogen 19 mg/dL (9-20); Calcium 8.8 mg/dL (8.4-10.2); Carbon Dioxide 27 mmol/L (22-30); Chloride 108 mmol/L (98-107); Glucose 117 mg/dL (74-99); Non-African American GFR(CKD) 80 (>60 ml/min/1.73 sqM); Sodium 139 mmol/L (137-145)
[2021-01-05] MEDS: FORMOTEROL FUMARATE 20 MCG/2 ML NEBU INHALATION SCH ×2 (07:30→19:46)
[2021-01-05] MEDS: BUDESONIDE 1 MG/2 ML NEBU INHALATION SCH ×2 (07:30→19:46)
[2021-01-05] MEDS: IPRATROPIUM-ALBUTEROL 3 ML NEB INHALATION SCH ×4 (07:30→19:46)
[2021-01-05] MEDS: METOPROLOL TARTRATE 50 MG TAB PO SCH ×2 (09:19→19:45)
[2021-01-05] MEDS: NITROGLYCERIN OINT 1 INCH/GM PACKET TOPICAL SCH ×3 (09:19→23:36)
[2021-01-05] MEDS: ASPIRIN 81 MG PO SCH (09:19)
[2021-01-05] MEDS: methylPREDNISolone SOD SUCCI 40 MG/ML 1 ML VIAL IV SCH ×2 (09:19→19:45)
[2021-01-05] MEDS: busPIRone HCl 5 MG TAB PO SCH ×2 (09:19→19:45)
[2021-01-05] MEDS: DULoxetine HCL 60 MG CAPSULE.DR PO SCH (09:20)
[2021-01-05] MEDS: TAMSULOSIN 0.4 MG CAP.ER.24H PO SCH (09:20)
[2021-01-05] MEDS: hydrALAZINE HCL 25 MG TAB PO SCH ×2 (09:20→15:39)
[2021-01-05] MEDS: FINASTERIDE 5 MG TAB PO SCH (09:20)
[2021-01-05] MEDS: FERROUS SULFATE 325 MG TAB PO SCH (09:20)
[2021-01-05] MEDS: ATORVASTATIN 40 MG TAB PO SCH (09:20)
[2021-01-05] MEDS: allopurinoL 300 MG TAB PO SCH (09:20)
[2021-01-05] MEDS: MONTELUKAST 10 MG TAB PO SCH (09:20)
[2021-01-05] MEDS: MUPIROCIN 2% OINT 22 GM TUBE NASAL SCH ×2 (09:21→19:46)
[2021-01-05] MEDS: buPROPion XL 300 MG TAB.ER.24H PO SCH (09:21)
--- NOTE | 2021-01-05 09:25 | P.PN ---
Subjective Progress Note Date: 01/05/21 Principal diagnosis: Coronary artery disease with left main disease, non-STEMI this admission. Previous medical history of atrial flutter, hypertension, COPD, obstructive sleep apnea without CPAP use, status post uvulectomy, previous tobacco dependence, recent pneumonia, GI bleed, anxiety/depression, PTSD, marijuana use Patient is currently sitting up in bed in no acute distress. Does state chest, back pain, and go, denies shortness of breath. Does continue to have a harsh cough with activity. Oxygen saturation in the low to mid 90s on room air. Actively using incentive spirometry and able to achieve 2500 mL. States he has been ambulatory in his room without difficulty. Preoperative teaching continues. Patient is currently being treated by pulmonology for pneumonia with ceftriaxone and IV Solu-Medrol. Objective - Vital Signs Vital signs: Vital Signs Temp 97.9 F 01/04/21 23:39 Pulse 52 L 01/04/21 23:39 Resp 18 01/05/21 02:00 BP 199/84 01/05/21 09:12 Pulse Ox 93 L 01/04/21 23:39 Intake & Output 01/04/21 01/05/21 01/05/21 18:59 06:59 18:59 Intake Total 1920 116 Output Total 800 Balance 1920 -800 116 Weight 92.3 kg Intake: IV 10 Invasive Line 3 10 Intake, IV Titration 106 Amount Heparin Sod,Pork in 0.45% 106 NaCl 25,000 unit In 0.45 % NaCl 1 250ml.bag @ 11. 111 UNITS/KG/HR 10 mls/hr IV .Q24H [facility] Rx#: [id number] Oral 1920 Output: Urine 800 Other: Voiding Method Toilet Toilet # Voids 2 - Exam CONSTITUTIONAL: Appears comfortable, cooperative, no acute distress RESPIRATORY: Lungs sounds diminished with coarse breath sounds in the bases bilaterally. Respirations even, nonlabored. Currently on room air with oxygen saturation 93%. Able to achieve 2500 mL on incentive spirometry. Strong harsh cough. CARDIOVASCULAR: S1, S2 present. Regular rate and rhythm, sinus rhythm on telemetry. Sternum stable. Palpable peripheral pulses bilaterally. No edema present. No calf pain or tenderness noted. GASTROINTESTINAL: Abdomen soft, nontender, nondistended. Active bowel sounds p resent 4 quadrants. Tolerating diet. GENITOURINARY: Continues to void INTEGUMENTARY: Skin is warm and dry with evidence of good perfusion. NEUROLOGIC: Cranial nerves II through XII intact MUSKULOSKELETAL: Able to move all extremities, strength equal bilaterally, gait normal PSYCHIATRIC: Alert and oriented to person place and time, appropriate affect, intact judgment and insight - Allied health notes Allied health notes reviewed: nursing - Labs CBC & Chem 7: 01/05/21 06:17 01/05/21 06:17 Labs: Abnormal Lab Results - Last 24 Hours (Table) 01/04/21 01/04/21 01/04/21 Range/Units 09:50 11:56 16:40 RBC 3.75 L (4.30-5.90) m/uL Hgb 11.7 L (13.0-17.5) gm/dL Hct 34.0 L (39.0-53.0) % Neutrophils # (1.3-7.7) k/uL Lymphocytes # 0.6 L (1.0-4.8) k/uL APTT (22.0-30.0) sec Chloride (98-107) mmol/L Glucose (74-99) mg/dL POC Glucose (mg/dL) 105 H 121 H (75-99) mg/dL 01/04/21 01/05/21 01/05/21 Range/Units 20:15 06:09 06:17 RBC 3.75 L (4.30-5.90) m/uL Hgb 11.9 L (13.0-17.5) gm/dL Hct 33.7 L (39.0-53.0) % Neutrophils # 8.0 H (1.3-7.7) k/uL Lymphocytes # 0.6 L (1.0-4.8) k/uL APTT (22.0-30.0) sec Chloride (98-107) mmol/L Glucose (74-99) mg/dL POC Glucose (mg/dL) 148 H 119 H (75-99) mg/dL 01/05/21 01/05/21 Range/Units 06:17 06:17 RBC (4.30-5.90) m/uL Hgb (13.0-17.5) gm/dL Hct (39.0-53.0) % Neutrophils # (1.3-7.7) k/uL Lymphocytes # (1.0-4.8) k/uL APTT 42.1 H (22.0-30.0) sec Chloride 108 H (98-107) mmol/L Glucose 117 H (74-99) mg/dL POC Glucose (mg/dL) (75-99) mg/dL Microbiology - Last 24 Hours (Table) 01/01/21 12:27 Blood Culture - Preliminary Blood No Growth after 72 hours 01/02/21 18:00 Nasal Screen MRSA/MSSA - Final Nasal Swab Assessment and Plan Assessment: 1. Coronary artery disease with left main disease 2. Non-STEMI this admission 3. Pneumonia at this admission, currently treated with ceftriaxone and IV Solu- Medrol 4. History of atrial flutter, currently sinus rhythm 5. Hypertension 6. COPD, FEV1 80% of predicted 7. Obstructive sleep apnea without CPAP use, status post uvulectomy 8. Previous tobacco dependence 9. Recent pneumonia 10. GI bleed 11. Anxiety/depression, PTSD 12. Marijuana use Plan: 1. Continue to maximize medical therapy with aspirin, statin, beta emerald therapy. 2. Encourage incentive spirometry use. Antibiotics, steroids per pulmonology 3. Increase activity, ambulate as tolerated. 4. Pulmonology consulted for surgical clearance, appreciate recommendations 5. GI/DVT prophylaxis 6. Our plan is for myocardial revascularization with left internal mammary artery and endoscopic vein harvest, ligation of left atrial appendage with Dr. Zayas on 01/10/2021 allowing time for patient to be medically optimized including pulmonary treatment 7. More recommendations to follow Time with Patient: Less than 30
[2021-01-05] MEDS: NITROGLYCERIN SL TABS 0.4 MG TAB SUBLINGUAL PRN ×2 (09:47→09:52)
--- NOTE | 2021-01-05 11:36 | PN ---
PROGRESS NOTE Mr. Stack is a 65-year-old male who presented with symptoms of dyspnea, dizziness and had mild troponin elevation. His cardiac catheterization revealed significant left main disease. He is scheduled to undergo coronary bypass grafting next week. He has some chest discomfort that has been constant, not exertional in pattern. He has continued to have some dyspnea on exertion. He denies any dizziness or palpitation. He denies any nausea. He continued to be on IV heparin, aspirin once a day, Lipitor 40 mg daily, ceftriaxone, hydralazine 75 mg 3 times a day, metoprolol tartrate 50 mg twice a day, nitro paste 1 inch q.8 hours. PHYSICAL EXAMINATION: Blood pressure running in the 120s to 150s with a heart rate in the 50s. LUNGS: With a few rhonchi, no wheezes. HEART: Regular rate and rhythm. S1, S2. No S3. No rub. ABDOMEN: Soft and nontender. EXTREMITIES: No edema. LAB DATA: Lab data revealed BUN and creatinine 19 and 0.99. Potassium 4.0, hemoglobin of 11.9. IMPRESSION: 1. Coronary artery disease with significant left main disease. Scheduled to undergo coronary artery bypass grafting. 2. History of hypertension. 3. Chronic obstructive lung disease. 4. Atypical chest pain. RECOMMENDATION: From the cardiac standpoint, I will continue on his present medical regimen. I will add hydrochlorothiazide 25 mg daily to optimize his blood pressure control. We will continue on the IV heparin and depending on his progress, further recommendation will be made. MMODL / IJN: [id number] /
[2021-01-05 11:56] LABS: Glucose,Whole Blood 91 mg/dL (75-99)
[2021-01-05] MEDS: hydroCHLOROthiazide 25 MG TAB PO SCH (12:50)
[2021-01-05] MEDS: ALPRAZolam 0.25 MG TAB PO PRN ×2 (15:39→23:38)
[2021-01-05] MEDS: HEPARIN SOD,PORK IN 0.45% NACL 25,000 UNIT in 0.45% NACL 1 250ML.BAG IV SCH (15:44)
[2021-01-05 16:54] LABS: Glucose,Whole Blood 116 mg/dL (75-99)
[2021-01-05] MEDS ORDERED: hydrALAZINE HCL 50 MG TAB PO SCH (17:45)
[2021-01-05] MEDS: hydrALAZINE HCL 50 MG TAB PO SCH (17:51)
[2021-01-05 20:13] LABS: Glucose,Whole Blood 128 mg/dL (75-99)
--- NOTE | 2021-01-05 20:36 | PN ---
PROGRESS NOTE DATE OF SERVICE: 01/05/2021 INTERVAL HISTORY: This is a 65-year-old gentleman who was admitted with chest pain, acute non-ST elevation NV, had left main disease. The patient also has significant respiratory issues. Also patient closely monitored. Tentative surgery is being planned next week. No chest pain. No palpitations. No fever. PHYSICAL EXAMINATION: GENERAL: Patient is alert and oriented times three. VITAL SIGNS: Pulse 55, blood pressure 180/84, respirations 18, temperature 97.2, pulse ox 93% on room air. HEENT: Conjunctivae normal. Oral mucosa moist. NECK: No jugular venous distention. No carotid bruits. No lymph node enlargement. RESPIRATORY: Breath sounds diminished at the bases. Bilateral scattered rhonchi and crackles. HEART: S1 and S2, muffled. ABDOMEN: Soft, no tenderness. EXTREMITIES: No edema, no swelling. NERVOUS: No focal deficits. The most recent chest x-ray showed some increased bronchovascular markings. LABS: Labs are noted. ASSESSMENT: 1. Chest pain possible acute htx-IP-xvzzpex-elevation myocardial infarction with left main disease status post cardiac catheterization. Troponin 0.075. 2. Chronic obstructive pulmonary disease acute exacerbation. 3. Bronchial asthma acute exacerbation. 4. Acute purulent tracheobronchitis. 5. Elevated lactic acid, present on admission, improved. 6. Increased WBC. 7. History of recent syncope. 8. History of atrial flutter. 9. History of asthma, chronic obstructive pulmonary disease. 10.Gastroesophageal reflux disease. 11.Hypertension. 12.History of degenerative joint disease. 13.History of benign prostatic hypertrophy. 14.History of sleep apnea. 15.History with chronic pain syndrome. 16.History of adenoidectomy. 17.History of bowel resection. 18.History of bipolar, depression, panic disorder. 19.History of nicotine dependence. 20.Tachycardia. RECOMMENDATION AND DISCUSSION: Recommend to continue current management and continue symptomatic treatment. Patient is currently on empiric antibiotics and IV steroids as well. Continue the bronchodilators. Follow closely with Pulmonary. Guarded prognosis. Further recommendations to follow. MMODL / IJN: [id number] /
[2021-01-05] MEDS: ALPRAZolam 0.5 MG TAB PO PRN (20:56)
[2021-01-06] MEDS: HYDROmorphone 0.5 MG/0.5 ML SYRINGE IVP PRN ×6 (01:31→21:39)
[2021-01-06] MEDS: oxyCODONE-APAP 10-325MG 1 EACH TAB PO PRN ×5 (03:39→23:46)
[2021-01-06 06:12] LABS: Glucose,Whole Blood 121 mg/dL (75-99)
[2021-01-06] MEDS: INSULIN ASPART (NovoLOG) 100 UNIT/ML VIAL SQ SCH ×4 (06:17→21:37)
[2021-01-06] MEDS: PANTOPRAZOLE 40 MG TABLET PO SCH (06:17)
[2021-01-06] MEDS: IPRATROPIUM-ALBUTEROL 3 ML NEB INHALATION SCH ×4 (07:52→21:02)
[2021-01-06] MEDS: BUDESONIDE 1 MG/2 ML NEBU INHALATION SCH ×2 (07:52→21:02)
[2021-01-06] MEDS: FORMOTEROL FUMARATE 20 MCG/2 ML NEBU INHALATION SCH ×2 (07:52→21:02)
[2021-01-06] MEDS: HEPARIN SOD,PORK IN 0.45% NACL 25,000 UNIT in 0.45% NACL 1 250ML.BAG IV SCH (08:52)
[2021-01-06] MEDS: ASPIRIN 81 MG PO SCH (08:55)
[2021-01-06] MEDS: ATORVASTATIN 40 MG TAB PO SCH (08:55)
[2021-01-06] MEDS: hydrALAZINE HCL 50 MG TAB PO SCH ×3 (08:55→21:36)
[2021-01-06] MEDS: NITROGLYCERIN OINT 1 INCH/GM PACKET TOPICAL SCH ×3 (08:55→23:46)
[2021-01-06] MEDS: METOPROLOL TARTRATE 50 MG TAB PO SCH ×2 (08:55→21:36)
[2021-01-06] MEDS: FINASTERIDE 5 MG TAB PO SCH (08:55)
[2021-01-06] MEDS: ALPRAZolam 0.5 MG TAB PO PRN ×2 (08:55→21:37)
[2021-01-06] MEDS: FERROUS SULFATE 325 MG TAB PO SCH (08:55)
[2021-01-06] MEDS: DULoxetine HCL 60 MG CAPSULE.DR PO SCH (08:55)
[2021-01-06] MEDS: MONTELUKAST 10 MG TAB PO SCH (08:55)
[2021-01-06] MEDS: methylPREDNISolone SOD SUCCI 40 MG/ML 1 ML VIAL IV SCH (08:55)
[2021-01-06] MEDS: TAMSULOSIN 0.4 MG CAP.ER.24H PO SCH (08:55)
[2021-01-06] MEDS: hydroCHLOROthiazide 25 MG TAB PO SCH (08:55)
[2021-01-06] MEDS: busPIRone HCl 5 MG TAB PO SCH ×2 (08:56→21:37)
[2021-01-06] MEDS: allopurinoL 300 MG TAB PO SCH (08:56)
[2021-01-06] MEDS: buPROPion XL 300 MG TAB.ER.24H PO SCH (08:57)
[2021-01-06] MEDS: MUPIROCIN 2% OINT 22 GM TUBE NASAL SCH ×2 (08:58→21:38)
--- NOTE | 2021-01-06 09:48 | P.PN ---
Subjective Progress Note Date: 01/06/21 Principal diagnosis: Coronary artery disease with left main disease, non-STEMI this admission. Previous medical history of atrial flutter, hypertension, COPD, obstructive sleep apnea without CPAP use, status post uvulectomy, previous tobacco dependence, recent pneumonia, GI bleed, anxiety/depression, PTSD, marijuana use, chronic pain Patient is currently sitting up in bed in no acute distress. Does state chest, back, neck pain, come and go, denies shortness of breath. Does continue to have a harsh cough with activity. Oxygen saturation in the low to mid 90s on room air. Actively using incentive spirometry and able to achieve 2500 mL. States he has been ambulatory in his room without difficulty. Preoperative teaching continues. Patient is currently being treated by pulmonology for pneumonia with ceftriaxone and IV Solu-Medrol. Objective - Vital Signs Vital signs: Vital Signs Temp 97.2 F L 01/06/21 07:37 Pulse 68 01/06/21 08:10 Resp 17 01/06/21 07:38 BP 156/80 01/06/21 07:37 Pulse Ox 96 01/06/21 07:37 Intake & Output 01/05/21 01/06/21 01/06/21 18:59 06:59 18:59 Intake Total 1265.150 579.167 334.74 Output Total 400 1250 Balance 865.150 -670.833 334.74 Weight 91.4 kg Intake: IV 70 40 10 Invasive Line 3 20 10 Invasive Line 4 30 10 cefTRIAXone 1 gm In 50 Sodium Chloride 0.9% 50 ml @ 100 mls/hr IVPB Q24HR [facility] Rx#:[id number] Intake, IV Titration 215.150 89.167 64.74 Amount Heparin Sod,Pork in 0.45% 215.150 89.167 64.74 NaCl 25,000 unit In 0.45 % NaCl 1 250ml.bag @ 11. 111 UNITS/KG/HR 10 mls/hr IV .Q24H [facility] Rx#: [id number] Oral 980 450 260 Output: Urine 400 1250 Other: Voiding Method Toilet Toilet Toilet - Exam CONSTITUTIONAL: Appears comfortable, cooperative, no acute distress RESPIRATORY: Lungs sounds diminished with coarse breath sounds in the bases bilaterally. Respirations even, nonlabored. Currently on room air with oxygen saturation 96%. Able to achieve 2500 mL on incentive spirometry. Strong harsh cough. CARDIOVASCULAR: S1, S2 present. Regular rate and rhythm, sinus rhythm on telemetry. Sternum stable. Palpable peripheral pulses bilaterally. No edema present. No calf pain or tenderness noted. GASTROINTESTINAL: Abdomen soft, nontender, nondistended. Active bowel sounds present 4 quadrants. Tolerating diet. GENITOURINARY: Continues to void INTEGUMENTARY: Skin is warm and dry with evidence of good perfusion. NEUROLOGIC: Cranial nerves II through XII intact MUSKULOSKELETAL: Able to move all extremities, strength equal bilaterally, gait normal PSYCHIATRIC: Alert and oriented to person place and time, appropriate affect, intact judgment and insight - Allied health notes Allied health notes reviewed: nursing - Labs CBC & Chem 7: 01/05/21 06:17 01/05/21 06:17 Labs: Abnormal Lab Results - Last 24 Hours (Table) 01/05/21 01/05/21 01/05/21 Range/Units 16:43 16:45 20:11 APTT 68.6 H (22.0-30.0) sec POC Glucose (mg/dL) 116 H 128 H (75-99) mg/dL 01/06/21 01/06/21 Range/Units 01:16 06:11 APTT 42.8 H (22.0-30.0) sec POC Glucose (mg/dL) 121 H (75-99) mg/dL Microbiology - Last 24 Hours (Table) 01/01/21 12:27 Blood Culture - Preliminary Blood No Growth after 96 hours Assessment and Plan Assessment: 1. Coronary artery disease with left main disease 2. Non-STEMI this admission 3. Pneumonia at this admission, currently treated with ceftriaxone and IV Solu- Medrol 4. History of atrial flutter, currently sinus rhythm 5. Hypertension 6. COPD, FEV1 80% of predicted 7. Obstructive sleep apnea without CPAP use, status post uvulectomy 8. Previous tobacco dependence 9. Recent pneumonia 10. GI bleed 11. Anxiety/depression, PTSD 12. Marijuana use 13. Chronic pain Plan: 1. Continue to maximize medical therapy with aspirin, statin, beta emerald therapy. 2. Encourage incentive spirometry use. Antibiotics, steroids per pulmonology 3. Increase activity, ambulate as tolerated. 4. Pulmonology consulted for surgical clearance, appreciate recommendations 5. GI/DVT prophylaxis 6. Our plan is for myocardial revascularization with left internal mammary artery and endoscopic vein harvest, ligation of left atrial appendage with Dr. Zayas on 01/10/2021 allowing time for patient to be medically optimized including pulmonary treatment 7. More recommendations to follow Time with Patient: Greater than 30
[2021-01-06 10:23] LABS: HCT 34.6 % (39.0-53.0); HGB 11.6 gm/dL (13.0-17.5); MCH 30.9 pg (25.0-35.0); MCHC 33.5 g/dL (31.0-37.0); MCV 92.2 fL (80.0-100.0); Platelet Count 176 k/uL (150-450); RBC 3.75 m/uL (4.30-5.90); RDW 15.1 % (11.5-15.5); WBC 9.2 k/uL (3.8-10.6)
--- NOTE | 2021-01-06 10:48 | P.PN ---
Subjective Progress Note Date: 01/06/21 Principal diagnosis: significant coronary artery disease involving left main Acute MO with elevated troponin End-stage lung disease oxygen-dependent intermittent prednisone dependent COPD with acute exacerbation Recent left-sided pneumonia Sleep disorder breathing and sleep apnea status post UPPP patient refused the CPAP machine multiple times in the past Morbid obesity History of intermittent atrial flutter 01/06/2021, patient seen and evaluated examined, patient is tentatively scheduled for triple bypass later on this week, ongoing cough congestion and chest tightness remains on breathing treatments antibiotics and IV steroids 01/04/2021, patient appears slightly better but have ongoing congestion nonproductive wet cough, patient remains on steroids bronchodilator and broad- spectrum antibiotics to optimize lung condition patient has been ordered PFT and arterial blood gases this is a 65-year-old male with end-stage severe COPD chronic history of smoking and nicotine use also has history of recurrent pneumonia and states intermittent prednisone-dependent, oxygen dependent COPDpatient was recently hospitalized for left-sided pneumonia tracheobronchitis had a bronchial lavage and washing which she tolerated well discharged in stable condition 2 days prior to hospitalization demented and chest pain, patient admitted into the hospital, recent echo revealed ejection fraction of 55%, with trace MR and TR, patient was noted to have elevated troponins underwent cardiac cath angiogram found to have left main disease, patient is being eval for bypass surgery, patient has ongoing shortness of breath sputum production and wheezing has been on broad-spectrum antibiotics cardiothoracic surgery is evaluating the patient Objective - Vital Signs Vital signs: Vital Signs Temp 97.2 F L 01/06/21 07:37 Pulse 68 01/06/21 08:10 Resp 17 01/06/21 07:38 BP 156/80 01/06/21 07:37 Pulse Ox 96 01/06/21 07:37 Intake & Output 01/05/21 01/06/21 01/06/21 18:59 06:59 18:59 Intake Total 1265.150 579.167 334.74 Output Total 400 1250 Balance 865.150 -670.833 334.74 Weight 91.4 kg Intake: IV 70 40 10 Invasive Line 3 20 10 Invasive Line 4 30 10 cefTRIAXone 1 gm In 50 Sodium Chloride 0.9% 50 ml @ 100 mls/hr IVPB Q24HR [facility] Rx#:[id number] Intake, IV Titration 215.150 89.167 64.74 Amount Heparin Sod,Pork in 0.45% 215.150 89.167 64.74 NaCl 25,000 unit In 0.45 % NaCl 1 250ml.bag @ 11. 111 UNITS/KG/HR 10 mls/hr IV .Q24H [facility] Rx#: [id number] Oral 980 450 260 Output: Urine 400 1250 Other: Voiding Method Toilet Toilet Toilet - Exam - Constitutional General appearance: average body habitus, cooperative - Neck Neck: normal ROM Carotids: bilateral: upstroke normal Thyroid: bilateral: normal size - Respiratory Respiratory: bilateral: diminished, wheezing - Cardiovascular Rhythm: regular Heart sounds: normal: S1, S2 - Gastrointestinal General gastrointestinal: decreased bowel sounds, normal bowel sounds, soft - Integumentary Integumentary: normal turgor - Neurologic Neurologic: CNII-XII intact - Musculoskeletal Musculoskeletal: gait normal, generalized weakness, strength equal bilaterally - Psychiatric Psychiatric: A&O x's 3, appropriate affect, intact judgment & insight - Labs CBC & Chem 7: 01/06/21 09:50 01/05/21 06:17 Labs: Abnormal Lab Results - Last 24 Hours (Table) 01/05/21 01/05/21 01/05/21 Range/Units 16:43 16:45 20:11 RBC (4.30-5.90) m/uL Hgb (13.0-17.5) gm/dL Hct (39.0-53.0) % APTT 68.6 H (22.0-30.0) sec POC Glucose (mg/dL) 116 H 128 H (75-99) mg/dL 01/06/21 01/06/21 01/06/21 Range/Units 01:16 06:11 09:50 RBC 3.75 L (4.30-5.90) m/uL Hgb 11.6 L (13.0-17.5) gm/dL Hct 34.6 L (39.0-53.0) % APTT 42.8 H (22.0-30.0) sec POC Glucose (mg/dL) 121 H (75-99) mg/dL Microbiology - Last 24 Hours (Table) 01/01/21 12:27 Blood Culture - Preliminary Blood No Growth after 96 hours Assessment and Plan Assessment: significant coronary artery disease involving left main Acute MO with elevated troponin End-stage lung disease oxygen-dependent intermittent prednisone dependent COPD Recent left-sided pneumonia Sleep disorder breathing and sleep apnea status post UPPP patient refused the CPAP machine multiple times in the past Morbid obesity History of intermittent atrial flutter Plan: continue bronchodilator Continue antibiotics Deep breathing exercise and a incentive spirometry IV steroids Further plan of care as per clinical response of the patient pending arterial blood gas And bedside spirometry Time with Patient: Greater than 30
[2021-01-06 11:27] LABS: African American GFR (CKD) >90 (>60 ml/min/1.73 sqM); Anion Gap 6 mmol/L; Blood Urea Nitrogen 24 mg/dL (9-20); Carbon Dioxide 29 mmol/L (22-30); Chloride 103 mmol/L (98-107); Glucose 119 mg/dL (74-99); Non-African American GFR(CKD) 87 (>60 ml/min/1.73 sqM); Potassium 3.6 mmol/L (3.5-5.1); Sodium 138 mmol/L (137-145)
[2021-01-06 11:43] LABS: Glucose,Whole Blood 110 mg/dL (75-99)
--- NOTE | 2021-01-06 12:44 | P.PN ---
Subjective This is a pleasant 65-year-old male past medical history significant for COPD, former nicotine dependence, hypertension, obstructive sleep apnea, anx iety/depression, marijuana use. 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 He denies any prior documented history of coronary artery disease. We have been asked to see in consultation for chest pain. Symptoms of chest discomfort and progressive dyspnea with mild troponin elevation recommended that patient proceed with coronary angiography. Patient underwent cardiac catheterization with Dr. Curtis 01/02/21 which revealed significant distal left main disease, moderate disease in LAD and left circumflex with moderate significant disease in the ramus intermedius and mild disease in the RCA. Calcified coronary arteries. It was recommended to proceed with evaluation for possible coronary artery bypa ss grafting. CT surgery was consulted. Echocardiogram revealed EF 55-60%, trace MR, trace TR. Patient seen and examined at bedside, no acute distress. Continues to endorse chest discomfort that is worse with ambulation. Back pain and shoulder pain. He denies palpitations, shortness of breath. He is using incentive spirometer able to achieve 2000-2500mL. Telemetry reviewed patient in sinus mechanism heart rate 40to 60s. Laboratory data reviewed, WBC 9.2, hemoglobin 11.6, platelets 176, sodium 138, potassium 3.6, BUN 24, serum creatinine 0.93, magnesium 2.0. Patient currently maintained on heparin drip, aspirin 81 mg daily, atorvastatin 40 mg daily, hydralazine 100 mg 3 times a day, metoprolol tartrate 50 mg twice a day PHYSICAL EXAMINATION Blood pressure 140/82 heart rate 60 afebrile and maintaining oxygen saturation 100% on 3 L nasal cannula CONSTITUTIONAL: No apparent distress. HEENT: Head is normocephalic. No JVD. No carotid bruit. CHEST EXAMINATION: Lungs are clear to auscultation. HEART EXAMINATION: Regular rate and rhythm. S1, S2 heard. No gallops or rub. ABDOMEN: Soft, nontender. Positive bowel sounds. EXTREMITIES: 2+ peripheral pulses, no lower extremity edema and no calf tenderness. Right Radial site clean dry intact no hematoma 2+ pulses Right Groin site clean dry intact, mild bruising, no hematoma 2+ peripheral pulses NEUROLOGIC EXAMINATION: Patient is awake, alert and oriented x3. ASSESSMENT NSTEMI Coronary artery disease with left main disease Pneumonia- currently being treated with ceftriaxone and IV solu-medrol Hypertension COPD Obstructive sleep apnea PLAN -Continue aspirin, statin, beta emerald -Encourage incentive spirometry use -Pre operative testing per CT surgery -Pulmonary has been consulted for surgical clearance -Per CT surgery- plan for myocardial revascularization with left internal mammary artery and endoscopic vein harvest, ligation of left atrial appendage with Dr. Zayas on 01/10/2021 -We will continue to follow Nurse Practitioner note has been reviewed, I agree with a documented findings and plan of care. Patient was seen and examined. Objective - Vital Signs Vital signs: Vital Signs Temp 97.6 F 01/06/21 11:32 Pulse 49 L 01/06/21 11:32 Resp 16 01/06/21 11:32 BP 172/69 01/06/21 11:32 Pulse Ox 96 01/06/21 11:32 Intake & Output 01/05/21 01/06/21 01/06/21 18:59 06:59 18:59 Intake Total 1265.150 579.167 334.74 Output Total 400 1250 Balance 865.150 -670.833 334.74 Weight 91.4 kg Intake: IV 70 40 10 Invasive Line 3 20 10 Invasive Line 4 30 10 cefTRIAXone 1 gm In 50 Sodium Chloride 0.9% 50 ml @ 100 mls/hr IVPB Q24HR [facility] Rx#:[id number] Intake, IV Titration 215.150 89.167 64.74 Amount Heparin Sod,Pork in 0.45% 215.150 89.167 64.74 NaCl 25,000 unit In 0.45 % NaCl 1 250ml.bag @ 11. 111 UNITS/KG/HR 10 mls/hr IV .Q24H [facility] Rx#: [id number] Oral 980 450 260 Output: Urine 400 1250 Other: Voiding Method Toilet Toilet Toilet - Labs CBC & Chem 7: 01/06/21 09:50 01/06/21 09:50 Labs: Abnormal Lab Results - Last 24 Hours (Table) 01/05/21 01/05/21 01/05/21 Range/Units 16:43 16:45 20:11 RBC (4.30-5.90) m/uL Hgb (13.0-17.5) gm/dL Hct (39.0-53.0) % APTT 68.6 H (22.0-30.0) sec BUN (9-20) mg/dL Glucose (74-99) mg/dL POC Glucose (mg/dL) 116 H 128 H (75-99) mg/dL 01/06/21 01/06/21 01/06/21 Range/Units 01:16 06:11 09:50 RBC (4.30-5.90) m/uL Hgb (13.0-17.5) gm/dL Hct (39.0-53.0) % APTT 42.8 H (22.0-30.0) sec BUN 24 H (9-20) mg/dL Glucose 119 H (74-99) mg/dL POC Glucose (mg/dL) 121 H (75-99) mg/dL 01/06/21 01/06/21 01/06/21 Range/Units 09:50 09:50 11:40 RBC 3.75 L (4.30-5.90) m/uL Hgb 11.6 L (13.0-17.5) gm/dL Hct 34.6 L (39.0-53.0) % APTT 49.8 H (22.0-30.0) sec BUN (9-20) mg/dL Glucose (74-99) mg/dL POC Glucose (mg/dL) 110 H (75-99) mg/dL Microbiology - Last 24 Hours (Table) 01/01/21 12:27 Blood Culture - Preliminary Blood No Growth after 96 hours
[2021-01-06] MEDS: methylPREDNISolone SOD SUCCI 125 MG/2 ML VIAL IV SCH ×2 (15:14→23:46)
[2021-01-06 16:57] LABS: Glucose,Whole Blood 124 mg/dL (75-99)
--- NOTE | 2021-01-06 18:55 | XR ---
EXAMINATION TYPE: XR chest 1V portable DATE OF EXAM: 01/06/2021 COMPARISON: 01/03/2021 HISTORY: Short of breath TECHNIQUE: FINDINGS: Heart and mediastinum are within normal limits. Lungs are clear of infiltrate. There is no heart failure. There are no hilar masses. There are chest leads. Bony thorax is intact. IMPRESSION: No active cardiopulmonary disease. Normal heart. No change.
--- NOTE | 2021-01-06 19:23 | PN ---
PROGRESS NOTE DATE OF SERVICE: 01/06/2021. HISTORY OF PRESENT ILLNESS: This 65-year-old gentleman who was admitted with chest pain had acute non ST segment elevation infarction. Patient had left main coronary artery disease on the cardiac cath. Cardiothoracic surgery is following the patient for possible CABG. Pulmonary is following the patient with intensive bronchodilator treatment also. No chest pain. No palpitations. No fever. Incentive spirometer has been recommended. PHYSICAL EXAMINATION: Alert and oriented times three. Pulse 51, blood pressure 134/70, respirations 16, temperature 98.2, pulse ox 96% on room air. HEENT: Conjunctivae normal. NECK: No JVD. CARDIOVASCULAR: S1, S2 muffled. RESPIRATION: Breath sounds diminished in the bases. A few scattered rhonchi and crackles. ABDOMEN: Soft. NERVOUS SYSTEM: No focal deficits. LAB STUDIES: WBC 9.8, hemoglobin 11.6. ASSESSMENT: 1. Chest pain possible acute imj-ED-ecujncj-elevation myocardial infarction with left main disease status post cardiac catheterization. Troponin 0.075. 2. Chronic obstructive pulmonary disease acute exacerbation. 3. Bronchial asthma, acute exacerbation. 4. Acute purulent tracheobronchitis. 5. Elevated lactic acid, present on admission improved. 6. Increased WBC. 7. History of recent syncope. 8. History of atrial flutter. 9. History of asthma, chronic obstructive pulmonary disease. 10.Gastroesophageal reflux disease. 11.Hypertension. 12.History of degenerative joint disease. 13.History of benign prostatic hypertrophy. 14.History of sleep apnea. 15.History of chronic pain syndrome. 16.History of adenoidectomy. 17.History of bowel resection. 18.History of bipolar, depression, panic disorder. 19.History of nicotine dependence. 20.Tachycardia. RECOMMENDATIONS AND DISCUSSION: Continue current medications. Continue to monitor. Symptomatic treatment. Otherwise at this time optimize bronchodilator treatment. Continue the antiplatelet agents. Continue the antibiotics. Closely follow with pulmonology and cardiology and monitor blood sugars closely. Also recommend a chest x-ray. Continue to monitor. Prognosis guarded. Further recommendations to follow. MMODL / IJN: [id number] /
[2021-01-06 20:04] LABS: Glucose,Whole Blood 174 mg/dL (75-99)
[2021-01-07] MEDS: HYDROmorphone 0.5 MG/0.5 ML SYRINGE IVP PRN ×6 (01:25→22:02)
[2021-01-07] MEDS: oxyCODONE-APAP 10-325MG 1 EACH TAB PO PRN ×5 (03:50→20:41)
[2021-01-07] MEDS: methylPREDNISolone SOD SUCCI 125 MG/2 ML VIAL IV SCH ×4 (05:34→23:36)
[2021-01-07 06:07] LABS: Glucose,Whole Blood 134 mg/dL (75-99)
[2021-01-07] MEDS: PANTOPRAZOLE 40 MG TABLET PO SCH (07:01)
[2021-01-07] MEDS: INSULIN ASPART (NovoLOG) 100 UNIT/ML VIAL SQ SCH ×4 (07:01→20:33)
[2021-01-07] MEDS: HEPARIN SOD,PORK IN 0.45% NACL 25,000 UNIT in 0.45% NACL 1 250ML.BAG IV SCH (07:02)
[2021-01-07 07:05] LABS: Basophils % (A) 0 %; Eosinophils # (A) 0.1 k/uL (0-0.7); Eosinophils % (A) 1 %; HCT 36.2 % (39.0-53.0); Lymphocytes # (A) 0.7 k/uL (1.0-4.8); Lymphocytes % (A) 8 %; MCH 30.4 pg (25.0-35.0); MCHC 33.2 g/dL (31.0-37.0); MCV 91.7 fL (80.0-100.0); Monocytes # (A) 0.3 k/uL (0-1.0); Monocytes % (A) 3 %; Neutrophils # (A) 7.6 k/uL (1.3-7.7); Neutrophils % (A) 88 %; Platelet Count 184 k/uL (150-450); RBC 3.95 m/uL (4.30-5.90); WBC 8.6 k/uL (3.8-10.6)
[2021-01-07] MEDS: allopurinoL 300 MG TAB PO SCH (07:53)
[2021-01-07] MEDS: NITROGLYCERIN OINT 1 INCH/GM PACKET TOPICAL SCH ×3 (07:53→23:37)
[2021-01-07] MEDS: ATORVASTATIN 40 MG TAB PO SCH (07:54)
[2021-01-07] MEDS: ASPIRIN 81 MG PO SCH (07:54)
[2021-01-07] MEDS: buPROPion XL 300 MG TAB.ER.24H PO SCH (07:55)
[2021-01-07] MEDS: busPIRone HCl 5 MG TAB PO SCH ×2 (07:55→20:41)
[2021-01-07] MEDS: DULoxetine HCL 60 MG CAPSULE.DR PO SCH (07:56)
[2021-01-07] MEDS: hydrALAZINE HCL 50 MG TAB PO SCH ×3 (07:57→20:42)
[2021-01-07] MEDS: FERROUS SULFATE 325 MG TAB PO SCH (07:57)
[2021-01-07] MEDS: FINASTERIDE 5 MG TAB PO SCH (07:57)
[2021-01-07] MEDS: hydroCHLOROthiazide 25 MG TAB PO SCH (07:58)
[2021-01-07] MEDS: METOPROLOL TARTRATE 50 MG TAB PO SCH ×2 (07:58→20:41)
[2021-01-07] MEDS: MUPIROCIN 2% OINT 22 GM TUBE NASAL SCH ×2 (07:58→20:42)
[2021-01-07] MEDS: MONTELUKAST 10 MG TAB PO SCH (07:58)
[2021-01-07] MEDS: TAMSULOSIN 0.4 MG CAP.ER.24H PO SCH (07:59)
[2021-01-07] MEDS: IPRATROPIUM-ALBUTEROL 3 ML NEB INHALATION SCH ×4 (08:31→19:31)
[2021-01-07] MEDS: BUDESONIDE 1 MG/2 ML NEBU INHALATION SCH ×2 (08:31→19:31)
[2021-01-07] MEDS: FORMOTEROL FUMARATE 20 MCG/2 ML NEBU INHALATION SCH ×2 (08:31→19:31)
[2021-01-07 09:24] LABS: African American GFR (CKD) >90 (>60 ml/min/1.73 sqM); Anion Gap 7 mmol/L; Blood Urea Nitrogen 24 mg/dL (9-20); Calcium 9.7 mg/dL (8.4-10.2); Carbon Dioxide 28 mmol/L (22-30); Chloride 104 mmol/L (98-107); Glucose 143 mg/dL (74-99); Non-African American GFR(CKD) 89 (>60 ml/min/1.73 sqM); Potassium 4.5 mmol/L (3.5-5.1); Sodium 139 mmol/L (137-145)
--- NOTE | 2021-01-07 10:40 | P.PN ---
Subjective Progress Note Date: 01/07/21 Principal diagnosis: Coronary artery disease with left main disease, non-STEMI this admission. Previous medical history of atrial flutter, hypertension, COPD, obstructive sleep apnea without CPAP use, status post uvulectomy, previous tobacco dependence, recent pneumonia, GI bleed, anxiety/depression, PTSD, marijuana use, chronic pain Patient is currently sitting up in bed in no acute distress. Does state chest, back, neck pain, come and go, denies shortness of breath. Does continue to have a harsh cough with activity. Oxygen saturation in the low to mid 90s on room air. Actively using incentive spirometry and able to achieve 2500 mL. States he has been ambulatory in his room without difficulty. Preoperative teaching continues, anticipate surgery Wednesday. Patient is currently being treated by pulmonology for pneumonia with ceftriaxone and IV Solu-Medrol. No other new concerns Objective - Vital Signs Vital signs: Vital Signs Temp 97.8 F 01/07/21 07:45 Pulse 68 01/07/21 08:57 Resp 18 01/07/21 07:45 BP 155/82 01/07/21 08:15 Pulse Ox 94 L 01/07/21 07:45 Intake & Output 01/06/21 01/07/21 01/07/21 18:59 06:59 18:59 Intake Total 994.74 734 Output Total 1050 1325 Balance -55.26 -591 Weight 90.9 kg Intake: IV 30 40 Invasive Line 4 30 40 Intake, IV Titration 64.74 250 Amount Heparin Sod,Pork in 0.45% 64.74 250 NaCl 25,000 unit In 0.45 % NaCl 1 250ml.bag @ 11. 111 UNITS/KG/HR 10 mls/hr IV .Q24H [facility] Rx#: [id number] Oral 900 444 Output: Urine 1050 1325 Other: Voiding Method Toilet Toilet - Exam CONSTITUTIONAL: Appears comfortable, cooperative, no acute distress RESPIRATORY: Lungs sounds diminished with coarse breath sounds in the bases bilaterally. Respirations even, nonlabored. Currently on room air with oxygen saturation 94%. Able to achieve 2500 mL on incentive spirometry. Strong harsh cough. CARDIOVASCULAR: S1, S2 present. Regular rate and rhythm, sinus rhythm on telemetry. Sternum stable. Palpable peripheral pulses bilaterally. No edema present. No calf pain or tenderness noted. GASTROINTESTINAL: Abdomen soft, nontender, nondistended. Active bowel sounds present 4 quadrants. Tolerating diet. GENITOURINARY: Continues to void INTEGUMENTARY: Skin is warm and dry with evidence of good perfusion. NEUROLOGIC: Cranial nerves II through XII intact MUSKULOSKELETAL: Able to move all extremities, strength equal bilaterally, gait normal PSYCHIATRIC: Alert and oriented to person place and time, appropriate affect, intact judgment and insight - Allied health notes Allied health notes reviewed: nursing - Labs CBC & Chem 7: 01/07/21 06:50 01/07/21 06:50 Labs: Abnormal Lab Results - Last 24 Hours (Table) 01/06/21 01/06/21 01/06/21 Range/Units 09:50 09:50 11:40 RBC (4.30-5.90) m/uL Hgb (13.0-17.5) gm/dL Hct (39.0-53.0) % Lymphocytes # (1.0-4.8) k/uL APTT 49.8 H (22.0-30.0) sec BUN 24 H (9-20) mg/dL Glucose 119 H (74-99) mg/dL POC Glucose (mg/dL) 110 H (75-99) mg/dL 01/06/21 01/06/21 01/07/21 Range/Units 16:56 20:03 06:05 RBC (4.30-5.90) m/uL Hgb (13.0-17.5) gm/dL Hct (39.0-53.0) % Lymphocytes # (1.0-4.8) k/uL APTT (22.0-30.0) sec BUN (9-20) mg/dL Glucose (74-99) mg/dL POC Glucose (mg/dL) 124 H 174 H 134 H (75-99) mg/dL 01/07/21 01/07/21 01/07/21 Range/Units 06:50 06:50 06:50 RBC 3.95 L (4.30-5.90) m/uL Hgb 12.0 L (13.0-17.5) gm/dL Hct 36.2 L (39.0-53.0) % Lymphocytes # 0.7 L (1.0-4.8) k/uL APTT 49.0 H (22.0-30.0) sec BUN 24 H (9-20) mg/dL Glucose 143 H (74-99) mg/dL POC Glucose (mg/dL) (75-99) mg/dL Microbiology - Last 24 Hours (Table) 01/01/21 12:27 Blood Culture - Preliminary Blood No Growth after 120 hours Assessment and Plan Assessment: 1. Coronary artery disease with left main disease 2. Non-STEMI this admission 3. Pneumonia at this admission, currently treated with ceftriaxone and IV Solu- Medrol 4. History of atrial flutter, currently sinus rhythm 5. Hypertension 6. COPD, FEV1 80% of predicted 7. Obstructive sleep apnea without CPAP use, status post uvulectomy 8. Previous tobacco dependence 9. Recent pneumonia 10. GI bleed 11. Anxiety/depression, PTSD 12. Marijuana use 13. Chronic pain Plan: 1. Continue to maximize medical therapy with aspirin, statin, beta emerald therapy. 2. Encourage incentive spirometry use. Antibiotics, steroids per pulmonology 3. Increase activity, ambulate as tolerated. 4. Pulmonology consulted for surgical clearance, appreciate recommendations 5. GI/DVT prophylaxis 6. Our plan is for myocardial revascularization with left internal mammary artery and endoscopic vein harvest, ligation of left atrial appendage with Dr. Zayas on 01/10/2021 allowing time for patient to be medically optimized including pulmonary treatment 7. More recommendations to follow Time with Patient: Greater than 30
--- NOTE | 2021-01-07 10:48 | P.PN ---
Subjective Progress Note Date: 01/07/21 Principal diagnosis: significant coronary artery disease involving left main Acute ND with elevated troponin End-stage lung disease oxygen-dependent intermittent prednisone dependent COPD with acute exacerbation Recent left-sided pneumonia Sleep disorder breathing and sleep apnea status post UPPP patient refused the CPAP machine multiple times in the past Morbid obesity History of intermittent atrial flutter 01/07/2021, patient seen eval examined during the rounds labs reviewed medications reviewed respiratory status stable, noted that PFT and ABG not yet done discussed with RN, patient has been complaining of chest pain and tightness as well, will defer the pain medicine to primary and cardiovascular services, patient is scheduled for bypass surgery later this week 01/06/2021, patient seen and evaluated examined, patient is tentatively scheduled for triple bypass later on this week, ongoing cough congestion and chest tightness remains on breathing treatments antibiotics and IV steroids 01/04/2021, patient appears slightly better but have ongoing congestion nonproductive wet cough, patient remains on steroids bronchodilator and broad- spectrum antibiotics to optimize lung condition patient has been ordered PFT and arterial blood gases this is a 65-year-old male with end-stage severe COPD chronic history of smoking and nicotine use also has history of recurrent pneumonia and states intermittent prednisone-dependent, oxygen dependent COPDpatient was recently hospitalized for left-sided pneumonia tracheobronchitis had a bronchial lavage and washing which she tolerated well discharged in stable condition 2 days prior to hospitalization demented and chest pain, patient admitted into the hospital, recent echo revealed ejection fraction of 55%, with trace MR and TR, patient was noted to have elevated troponins underwent cardiac cath angiogram found to have left main disease, patient is being eval for bypass surgery, patient has ongoing shortness of breath sputum production and wheezing has been on broad-spectrum antibiotics cardiothoracic surgery is evaluating the patient Objective - Vital Signs Vital signs: Vital Signs Temp 97.8 F 01/07/21 07:45 Pulse 68 01/07/21 08:57 Resp 18 01/07/21 07:45 BP 155/82 01/07/21 08:15 Pulse Ox 94 L 01/07/21 07:45 Intake & Output 01/06/21 01/07/21 01/07/21 18:59 06:59 18:59 Intake Total 994.74 734 Output Total 1050 1325 Balance -55.26 -591 Weight 90.9 kg Intake: IV 30 40 Invasive Line 4 30 40 Intake, IV Titration 64.74 250 Amount Heparin Sod,Pork in 0.45% 64.74 250 NaCl 25,000 unit In 0.45 % NaCl 1 250ml.bag @ 11. 111 UNITS/KG/HR 10 mls/hr IV .Q24H [facility] Rx#: [id number] Oral 900 444 Output: Urine 1050 1325 Other: Voiding Method Toilet Toilet - Exam - Constitutional General appearance: average body habitus, cooperative - Neck Neck: normal ROM Carotids: bilateral: upstroke normal Thyroid: bilateral: normal size - Respiratory Respiratory: bilateral: diminished, wheezing - Cardiovascular Rhythm: regular Heart sounds: normal: S1, S2 - Gastrointestinal General gastrointestinal: decreased bowel sounds, normal bowel sounds, soft - Integumentary Integumentary: normal turgor - Neurologic Neurologic: CNII-XII intact - Musculoskeletal Musculoskeletal: gait normal, generalized weakness, strength equal bilaterally - Psychiatric Psychiatric: A&O x's 3, appropriate affect, intact judgment & insight - Labs CBC & Chem 7: 01/07/21 06:50 01/07/21 06:50 Labs: Abnormal Lab Results - Last 24 Hours (Table) 01/06/21 01/06/21 01/06/21 Range/Units 09:50 09:50 11:40 RBC (4.30-5.90) m/uL Hgb (13.0-17.5) gm/dL Hct (39.0-53.0) % Lymphocytes # (1.0-4.8) k/uL APTT 49.8 H (22.0-30.0) sec BUN 24 H (9-20) mg/dL Glucose 119 H (74-99) mg/dL POC Glucose (mg/dL) 110 H (75-99) mg/dL 01/06/21 01/06/21 01/07/21 Range/Units 16:56 20:03 06:05 RBC (4.30-5.90) m/uL Hgb (13.0-17.5) gm/dL Hct (39.0-53.0) % Lymphocytes # (1.0-4.8) k/uL APTT (22.0-30.0) sec BUN (9-20) mg/dL Glucose (74-99) mg/dL POC Glucose (mg/dL) 124 H 174 H 134 H (75-99) mg/dL 01/07/21 01/07/21 01/07/21 Range/Units 06:50 06:50 06:50 RBC 3.95 L (4.30-5.90) m/uL Hgb 12.0 L (13.0-17.5) gm/dL Hct 36.2 L (39.0-53.0) % Lymphocytes # 0.7 L (1.0-4.8) k/uL APTT 49.0 H (22.0-30.0) sec BUN 24 H (9-20) mg/dL Glucose 143 H (74-99) mg/dL POC Glucose (mg/dL) (75-99) mg/dL Microbiology - Last 24 Hours (Table) 01/01/21 12:27 Blood Culture - Preliminary Blood No Growth after 120 hours Assessment and Plan Assessment: significant coronary artery disease involving left main Acute ND with elevated troponin End-stage lung disease oxygen-dependent intermittent prednisone dependent Ongoing chest pain likely related to angina and coronary artery disease COPD Recent left-sided pneumonia Sleep disorder breathing and sleep apnea status post UPPP patient refused the CPAP machine multiple times in the past Morbid obesity History of intermittent atrial flutter Plan: continue bronchodilator Continue antibiotics Pain management per primary service and cardiovascular service Sputum Gram stain and culture Deep breathing exercise and a incentive spirometry IV steroids Further plan of care as per clinical response of the patient pending arterial blood gas And bedside spirometry Time with Patient: Greater than 30
[2021-01-07 12:09] LABS: Glucose,Whole Blood 128 mg/dL (75-99)
--- NOTE | 2021-01-07 12:09 | P.PN ---
Subjective This is a pleasant 65-year-old male past medical history significant for COPD, former nicotine dependence, hypertension, obstructive sleep apnea, anx iety/depression, marijuana use. He does not follow with a risk consultant. He denies any prior documented history of coronary artery disease. We have been asked to see in consultation for chest pain. Symptoms of chest discomfort and progressive dyspnea with mild troponin elevation recommended that patient proceed with coronary angiography. Patient underwent cardiac catheterization with Dr. Curtis 01/02/21 which revealed significant distal left main disease, moderate disease in LAD and left circumflex with moderate significant disease in the ramus intermedius and mild disease in the RCA. Calcified coronary arteries. It was recommended to proceed with evaluation for possible coronary artery bypa ss grafting. CT surgery was consulted. Echocardiogram revealed EF 55-60%, trace MR, trace TR. 01/07/2021: Patient seen and examined at bedside, no acute distress. Continues to endorse chest discomfort that is worse with ambulation. Back pain and shoulder pain. He denies palpitations, shortness of breath. He is using incentive spirometer able to achieve 2000-2500mL. Telemetry reviewed patient in sinus mechanism heart rate 40to 60s. Laboratory data reviewed, WBC 8.6, hemoglobin 12, platelets 184, sodium 139, potassium 4.5, BUN 24, serum creatinine 0.94 Patient currently maintained on heparin drip, aspirin 81 mg daily, atorvastatin 40 mg daily, hydralazine 100 mg 3 times a day, metoprolol tartrate 50 mg twice a day PHYSICAL EXAMINATION Blood pressure 148/82 heart rate 53 afebrile and maintaining oxygen saturation 94% on room air. CONSTITUTIONAL: No apparent distress. HEENT: Head is normocephalic. No JVD. No carotid bruit. CHEST EXAMINATION: Lungs are diminished bilaterally with coarse breath sounds HEART EXAMINATION: Regular rate and rhythm. S1, S2 heard. No gallops or rub. ABDOMEN: Soft, nontender. Positive bowel sounds. EXTREMITIES: 2+ peripheral pulses, no lower extremity edema and no calf tenderness. Right Radial site clean dry intact no hematoma 2+ pulses Right Groin site clean dry intact, mild bruising, no hematoma 2+ peripheral pulses NEUROLOGIC EXAMINATION: Patient is awake, alert and oriented x3. ASSESSMENT NSTEMI Coronary artery disease with left main disease Pneumonia- currently being treated with ceftriaxone and IV solu-medrol Hypertension COPD Obstructive sleep apnea PLAN -Continue aspirin, statin, beta emerald -Encourage incentive spirometry use -Pre operative testing per CT surgery -Pulmonary has been consulted for surgical clearance -Per CT surgery- plan for myocardial revascularization with left internal mammary artery and endoscopic vein harvest, ligation of left atrial appendage with Dr. Zayas on 01/10/2021 -We will continue to follow Nurse Practitioner note has been reviewed, I agree with a documented findings and plan of care. Patient was seen and examined. Objective - Vital Signs Vital signs: Vital Signs Temp 97.8 F 01/07/21 11:50 Pulse 53 L 01/07/21 11:50 Resp 20 01/07/21 11:50 BP 148/82 01/07/21 11:50 Pulse Ox 93 L 01/07/21 11:50 Intake & Output 01/06/21 01/07/21 01/07/21 18:59 06:59 18:59 Intake Total 994.74 734 Output Total 1050 1325 Balance -55.26 -591 Weight 90.9 kg Intake: IV 30 40 Invasive Line 4 30 40 Intake, IV Titration 64.74 250 Amount Heparin Sod,Pork in 0.45% 64.74 250 NaCl 25,000 unit In 0.45 % NaCl 1 250ml.bag @ 11. 111 UNITS/KG/HR 10 mls/hr IV .Q24H [facility] Rx#: [id number] Oral 900 444 Output: Urine 1050 1325 Other: Voiding Method Toilet Toilet - Labs CBC & Chem 7: 01/07/21 06:50 01/07/21 06:50 Labs: Abnormal Lab Results - Last 24 Hours (Table) 01/06/21 01/06/21 01/07/21 Range/Units 16:56 20:03 06:05 RBC (4.30-5.90) m/uL Hgb (13.0-17.5) gm/dL Hct (39.0-53.0) % Lymphocytes # (1.0-4.8) k/uL APTT (22.0-30.0) sec BUN (9-20) mg/dL Glucose (74-99) mg/dL POC Glucose (mg/dL) 124 H 174 H 134 H (75-99) mg/dL 01/07/21 01/07/21 01/07/21 Range/Units 06:50 06:50 06:50 RBC 3.95 L (4.30-5.90) m/uL Hgb 12.0 L (13.0-17.5) gm/dL Hct 36.2 L (39.0-53.0) % Lymphocytes # 0.7 L (1.0-4.8) k/uL APTT 49.0 H (22.0-30.0) sec BUN 24 H (9-20) mg/dL Glucose 143 H (74-99) mg/dL POC Glucose (mg/dL) (75-99) mg/dL Microbiology - Last 24 Hours (Table) 01/01/21 12:27 Blood Culture - Preliminary Blood No Growth after 120 hours
[2021-01-07 17:08] LABS: Glucose,Whole Blood 141 mg/dL (75-99)
--- NOTE | 2021-01-07 18:02 | PN ---
PROGRESS NOTE DATE OF SERVICE: 01/07/2021. This 65-year-old gentleman who was admitted with chest pain, was found to have left main disease. The patient is awaiting surgery at this time. The patient has significant respiratory difficulties, which is improving at this time. The most recent chest x-ray which was reviewed personally by me showed no acute changes. Pulmonary is also following the patient closely. No fever. Occasional cough. PHYSICAL EXAMINATION: Alert and oriented times three. Pulse 62, blood pressure 141/69, respiration 20, temperature 97.8, pulse ox 94% on room air. HEENT: Conjunctivae normal. NECK: No JVD. CARDIOVASCULAR: S1, S2 muffled. RESPIRATORY: Breath sounds diminished in the bases. A few scattered rhonchi and expiratory wheezing and crackles. ABDOMEN: Soft. NERVOUS SYSTEM: No focal deficits. LABS: WBC 8.3, hemoglobin is 12. Sodium 130, potassium 4.5. Glucose 128. ASSESSMENT: 1. Chest pain possible acute hoa-DB-[id number]-elevation myocardial infarction with left main disease status post cardiac catheterization. Troponin 0.075. 2. Chronic obstructive pulmonary disease acute exacerbation. 3. Bronchial asthma, acute exacerbation. 4. Acute purulent tracheobronchitis without any evidence of pneumonia. 5. Elevated lactic acid, present on admission improved. 6. Increased WBC. 7. History of recent syncope. 8. History of atrial flutter. 9. History of chronic obstructive pulmonary disease. 10.Gastroesophageal reflux disease. 11.Hypertension. 12.Chronic pain syndrome. 13.History of degenerative joint disease. 14.History of benign prostatic hypertrophy. 15.Obstructive sleep apnea. 16.History of adenoidectomy. 17.History of bowel resection. 18.History of bipolar, depression, panic disorder. 19.History of nicotine dependence. 20.Tachycardia. RECOMMENDATIONS AND DISCUSSION: I recommend to continue current medications, management and symptomatic treatment. Continue the bronchodilators. Closely follow with Pulmonary and Cardiothoracic Surgery. Guarded prognosis. Further recommendations to follow. MMODL / IJN: [id number] /
[2021-01-07] MEDS ORDERED: HYDROmorphone 0.5 MG/0.5 ML SYRINGE IVP STA (19:07)
[2021-01-07 20:34] LABS: Glucose,Whole Blood 124 mg/dL (75-99)
[2021-01-07] MEDS: ALPRAZolam 0.5 MG TAB PO PRN (20:41)
[2021-01-08] MEDS: oxyCODONE-APAP 10-325MG 1 EACH TAB PO PRN ×6 (00:56→21:04)
[2021-01-08] MEDS: HYDROmorphone 0.5 MG/0.5 ML SYRINGE IVP PRN ×6 (02:37→23:26)
[2021-01-08] MEDS: HEPARIN SOD,PORK IN 0.45% NACL 25,000 UNIT in 0.45% NACL 1 250ML.BAG IV SCH ×2 (02:38→21:05)
[2021-01-08 06:11] LABS: Glucose,Whole Blood 122 mg/dL (75-99)
[2021-01-08] MEDS: INSULIN ASPART (NovoLOG) 100 UNIT/ML VIAL SQ SCH ×4 (06:13→21:07)
[2021-01-08] MEDS: methylPREDNISolone SOD SUCCI 125 MG/2 ML VIAL IV SCH ×4 (06:23→23:27)
[2021-01-08] MEDS: PANTOPRAZOLE 40 MG TABLET PO SCH (06:24)
[2021-01-08] MEDS: NITROGLYCERIN OINT 1 INCH/GM PACKET TOPICAL SCH ×3 (08:47→23:27)
[2021-01-08] MEDS: allopurinoL 300 MG TAB PO SCH (08:47)
[2021-01-08] MEDS: ASPIRIN 81 MG PO SCH (08:47)
[2021-01-08] MEDS: buPROPion XL 300 MG TAB.ER.24H PO SCH (08:48)
[2021-01-08] MEDS: ATORVASTATIN 40 MG TAB PO SCH (08:48)
[2021-01-08] MEDS: busPIRone HCl 5 MG TAB PO SCH ×2 (08:49→21:03)
[2021-01-08] MEDS: DULoxetine HCL 60 MG CAPSULE.DR PO SCH (08:50)
[2021-01-08] MEDS: BUDESONIDE 1 MG/2 ML NEBU INHALATION SCH ×2 (08:51→20:04)
[2021-01-08] MEDS: FORMOTEROL FUMARATE 20 MCG/2 ML NEBU INHALATION SCH ×2 (08:51→20:04)
[2021-01-08] MEDS: hydrALAZINE HCL 50 MG TAB PO SCH ×3 (08:51→21:03)
[2021-01-08] MEDS: IPRATROPIUM-ALBUTEROL 3 ML NEB INHALATION SCH ×4 (08:51→20:04)
[2021-01-08] MEDS: FINASTERIDE 5 MG TAB PO SCH (08:51)
[2021-01-08] MEDS: FERROUS SULFATE 325 MG TAB PO SCH (08:51)
[2021-01-08] MEDS: MUPIROCIN 2% OINT 22 GM TUBE NASAL SCH ×2 (08:52→21:15)
[2021-01-08] MEDS: TAMSULOSIN 0.4 MG CAP.ER.24H PO SCH (08:52)
[2021-01-08] MEDS: MONTELUKAST 10 MG TAB PO SCH (08:52)
[2021-01-08] MEDS: hydroCHLOROthiazide 25 MG TAB PO SCH (08:52)
[2021-01-08] MEDS: METOPROLOL TARTRATE 50 MG TAB PO SCH ×2 (08:52→21:04)
--- NOTE | 2021-01-08 09:28 | P.PN ---
Subjective Progress Note Date: 01/08/21 Principal diagnosis: Coronary artery disease with left main disease, non-STEMI this admission. Previous medical history of atrial flutter, hypertension, COPD, obstructive sleep apnea without CPAP use, status post uvulectomy, previous tobacco dependence, recent pneumonia, GI bleed, anxiety/depression, PTSD, marijuana use, chronic pain Patient is currently sitting up in bed in no acute distress. Does state chest, back, neck pain present most of the time but do come and go with IV pain medication, denies shortness of breath. Does continue to have a harsh cough with activity. Oxygen saturation in the low to mid 90s on room air. Actively using incentive spirometry and able to achieve 2500 mL. States he has been ambulatory in his room without difficulty. Preoperative teaching continues, anticipate surgery Wednesday. Patient is currently being treated by pulmonology fo r pneumonia with ceftriaxone and IV Solu-Medrol. Patient does state he is very scared about surgery and pain control afterwards Objective - Vital Signs Vital signs: Vital Signs Temp 97.6 F 01/08/21 08:00 Pulse 60 01/08/21 09:19 Resp 22 01/08/21 08:00 BP 171/80 01/08/21 08:00 Pulse Ox 94 L 01/08/21 08:00 Intake & Output 01/07/21 01/08/21 01/08/21 18:59 06:59 18:59 Intake Total 700 469.32 Output Total 650 1350 200 Balance 50 -880.68 -200 Weight 91.6 kg Intake: Intake, IV Titration 229.32 Amount Heparin Sod,Pork in 0.45% 229.32 NaCl 25,000 unit In 0.45 % NaCl 1 250ml.bag @ 11. 111 UNITS/KG/HR 10 mls/hr IV .Q24H [facility] Rx#: [id number] Oral 700 240 Output: Urine 650 1350 200 Other: Voiding Method Toilet - Exam CONSTITUTIONAL: Appears comfortable, cooperative, no acute distress RESPIRATORY: Lungs sounds diminished with coarse breath sounds bilaterally. Respirations even, nonlabored. Currently on room air with oxygen saturation 97%. Able to achieve 2500 mL on incentive spirometry. Strong harsh cough. CARDIOVASCULAR: S1, S2 present. Regular rate and rhythm, sinus rhythm on telemetry. Sternum stable. Palpable peripheral pulses bilaterally. No edema present. No calf pain or tenderness noted. GASTROINTESTINAL: Abdomen soft, nontender, nondistended. Active bowel sounds present 4 quadrants. Tolerating diet. GENITOURINARY: Continues to void INTEGUMENTARY: Skin is warm and dry with evidence of good perfusion. NEUROLOGIC: Cranial nerves II through XII intact MUSKULOSKELETAL: Able to move all extremities, strength equal bilaterally, gait normal PSYCHIATRIC: Alert and oriented to person place and time, appropriate affect, intact judgment and insight - Allied health notes Allied health notes reviewed: nursing - Labs CBC & Chem 7: 01/07/21 06:50 01/07/21 06:50 Labs: Abnormal Lab Results - Last 24 Hours (Table) 01/07/21 01/07/21 01/07/21 Range/Units 06:50 12:04 16:57 BUN 24 H (9-20) mg/dL Glucose 143 H (74-99) mg/dL POC Glucose (mg/dL) 128 H 141 H (75-99) mg/dL 01/07/21 01/08/21 Range/Units 20:32 06:09 BUN (9-20) mg/dL Glucose (74-99) mg/dL POC Glucose (mg/dL) 124 H 122 H (75-99) mg/dL Microbiology - Last 24 Hours (Table) 01/01/21 12:27 Blood Culture - Final Blood No Growth after 144 hours - Imaging and Cardiology Chest x-ray: report reviewed, image reviewed Assessment and Plan Assessment: 1. Coronary artery disease with left main disease 2. Non-STEMI this admission 3. Pneumonia at this admission, currently treated with ceftriaxone and IV Solu- Medrol 4. History of atrial flutter, currently sinus rhythm 5. Hypertension 6. COPD, FEV1 80% of predicted on bedside spirometry completed January 02 7. Obstructive sleep apnea without CPAP use, status post uvulectomy 8. Previous tobacco dependence 9. Recent pneumonia 10. GI bleed 11. Anxiety/depression, PTSD 12. Marijuana use 13. Chronic pain Plan: 1. Continue to maximize medical therapy with aspirin, statin, beta emerald therapy. 2. Encourage incentive spirometry use. Antibiotics, steroids per pulmonology 3. Increase activity, ambulate as tolerated. 4. Pulmonology consulted for surgical clearance, appreciate recommendations 5. GI/DVT prophylaxis 6. Our plan is for myocardial revascularization with left internal mammary artery and endoscopic vein harvest, ligation of left atrial appendage with Dr. Zayas on 01/10/2021 allowing time for patient to be medically optimized including pulmonary treatment 7. More recommendations to follow Time with Patient: Greater than 30
--- NOTE | 2021-01-08 09:37 | P.VSCSTY ---
Greater Saphenous Vein Mapping This is bilateral lower extremity greater saphenous vein mapping. Date of service: 01/02/2021 Vein quality and ultrasound appearance: We see no intraluminal thrombus or obvious wall changes. Vein size groin right : 6.4 x 6.2 groin left: 6.2 x 6.9 High thigh right: 3.5 x 3.8 high thigh left: 4.2 x 5.3 Mid thigh right: 3.5 x 3.8 mid thigh left: 3.2 x 3.8 Above-knee right: 2.0 x 2.6 above-knee left: 2.6 x 2.8 Below knee right: 1.8 x 2.3 below-knee left: 2.7 x 3.1 Mid calf right: 1.2 x 2.3 mid calf left: 2.0 x 2.9 Ankle right: 1.9 x 3.7 ankle left: 2.8 x 4.0 Impression: Usable greater saphenous vein throughout on the left. The right side appears usable to the area about the knee but has numerous branches and is rather small below the knee..
[2021-01-08 12:17] LABS: Glucose,Whole Blood 109 mg/dL (75-99)
--- NOTE | 2021-01-08 12:22 | P.PN ---
Subjective This is a pleasant 65-year-old male past medical history significant for COPD, former nicotine dependence, hypertension, obstructive sleep apnea, anx iety/depression, marijuana use. 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 He denies any prior documented history of coronary artery disease. We have been asked to see in consultation for chest pain. Symptoms of chest discomfort and progressive dyspnea with mild troponin elevation recommended that patient proceed with coronary angiography. Patient underwent cardiac catheterization with Dr. Curtis 01/02/21 which revealed significant distal left main disease, moderate disease in LAD and left circumflex with moderate significant disease in the ramus intermedius and mild disease in the RCA. Calcified coronary arteries. It was recommended to proceed with evaluation for possible coronary artery bypa ss grafting. CT surgery was consulted. Echocardiogram revealed EF 55-60%, trace MR, trace TR. 01/08/2021: Patient seen and examined at bedside, no acute distress. Patient states he is ambulating in the room without difficulty. He states his pain is not controlled. He describes having generialized pain and also chest, back, neck pain. He denies palpitations, shortness of breath. He is using incentive spirometer able to achieve 2000-2500mL. Telemetry reviewed patient in sinus mechanism heart ra te 50 to 60s. Patient currently maintained on heparin drip, aspirin 81 mg daily, atorvastatin 40 mg daily, hydralazine 100 mg 3 times a day, hydrochlorothiazide 25mg daily, metoprolol tartrate 50 mg twice a day, IV ceftriaxone. BP 171/80 HR 59 this morning prior to medications this morning SBP has been 110-140s yesterday, afebrile, maintaining oxygen saturation >92% on room air. PHYSICAL EXAMINATION CONSTITUTIONAL: No apparent distress. HEENT: Head is normocephalic. No JVD. No carotid bruit. CHEST EXAMINATION: Lungs are diminished bilaterally with coarse breath sounds HEART EXAMINATION: Regular rate and rhythm. S1, S2 heard. No gallops or rub. ABDOMEN: Soft, nontender. Positive bowel sounds. EXTREMITIES: 2+ peripheral pulses, no lower extremity edema and no calf tenderness. Right Radial site clean dry intact no hematoma 2+ pulses Right Groin site clean dry intact, mild bruising, no hematoma 2+ peripheral pulses NEUROLOGIC EXAMINATION: Patient is awake, alert and oriented x3. ASSESSMENT NSTEMI Coronary artery disease with left main disease Pneumonia- currently being treated with ceftriaxone and IV solu-medrol Hypertension COPD Obstructive sleep apnea PLAN -Continue aspirin, statin, beta emerald -Encourage incentive spirometry use -Pre operative testing per CT surgery -Pulmonary has been consulted for surgical clearance -Per CT surgery- plan for myocardial revascularization with left internal mammary artery and endoscopic vein harvest, ligation of left atrial appendage with Dr. Zayas on 01/10/2021 -We will continue to follow Nurse Practitioner note has been reviewed, I agree with a documented findings and plan of care. Patient was seen and examined. Objective - Vital Signs Vital signs: Vital Signs Temp 97.6 F 01/08/21 08:00 Pulse 60 01/08/21 09:19 Resp 22 01/08/21 08:00 BP 171/80 01/08/21 08:00 Pulse Ox 94 L 01/08/21 08:00 Intake & Output 01/07/21 01/08/21 01/08/21 18:59 06:59 18:59 Intake Total 700 469.32 480 Output Total 650 1350 200 Balance 50 -880.68 280 Weight 91.6 kg 91.6 kg Intake: Intake, IV Titration 229.32 Amount Heparin Sod,Pork in 0.45% 229.32 NaCl 25,000 unit In 0.45 % NaCl 1 250ml.bag @ 11. 111 UNITS/KG/HR 10 mls/hr IV .Q24H [facility] Rx#: [id number] Oral 700 240 480 Output: Urine 650 1350 200 Other: Voiding Method Toilet - Labs CBC & Chem 7: 01/07/21 06:50 01/07/21 06:50 Labs: Abnormal Lab Results - Last 24 Hours (Table) 01/07/21 01/07/21 01/07/21 Range/Units 12:04 16:57 20:32 APTT (22.0-30.0) sec POC Glucose (mg/dL) 128 H 141 H 124 H (75-99) mg/dL 01/08/21 01/08/21 Range/Units 06:09 08:10 APTT 51.1 H (22.0-30.0) sec POC Glucose (mg/dL) 122 H (75-99) mg/dL Microbiology - Last 24 Hours (Table) 01/01/21 12:27 Blood Culture - Final Blood No Growth after 144 hours
[2021-01-08 13:02] LABS: ABG Base Excess 3.8 mmol/L; ABG HCO3 29 mmol/L (21-25); ABG Oxygen Saturation 89.6 % (94-97); ABG PCO2 46 mmHg (35-45); ABG TCO2 30 mmol/L (19-24); Allen Test Performed? Yes
[2021-01-08 13:09] LABS: ABG PO2 59 mmHg (83-108)
[2021-01-08] MEDS: ACETYLCYSTEINE 800 MG/4 ML VIAL INHALATION SCH ×2 (16:01→20:04)
[2021-01-08 17:05] LABS: Glucose,Whole Blood 131 mg/dL (75-99)
--- NOTE | 2021-01-08 18:00 | PN ---
PROGRESS NOTE DATE OF SERVICE: 01/08/2021 This 65-year-old gentleman who was admitted with chest pain had acute non ST elevation myocardial infarction with left main disease. The patient also has lung disease. No chest pain. No palpitations. No fever. The patient is awaiting surgery on Wednesday. PHYSICAL EXAMINATION: Alert and oriented x3. Pulse 60, blood pressure 138/79, respiration 18, temperature 98.2, pulse ox 98% on room air. HEENT: Conjunctivae normal. Oral mucosa moist. NECK: No jugular venous distention. No lymph node enlargement. CARDIOVASCULAR: S1, S2, muffled. No S3, no S4, RESPIRATORY: Diminished breath sounds at the bases. Scattered rhonchi and crackles. ABDOMEN: Soft, nontender. LEGS: No edema, no swelling. NERVOUS SYSTEM: No focal deficits. LABS: PCO2 is 59, hemoglobin is 12. ASSESSMENT: 1. Chest pain, possible acute ool-PQ-mwuzfke-elevation myocardial infarction with left main disease status post cardiac catheterization, troponin 0.075. 2. Chronic obstructive pulmonary disease acute exacerbation. 3. Bronchial asthma acute exacerbation. 4. Acute purulent tracheobronchitis without any evidence of pneumonia. 5. Elevated lactic acid present on admission, improved. 6. Increased WBC. 7. History of recent syncope. 8. History of atrial fibrillation. 9. History of chronic obstructive pulmonary disease. 10.GERD. 11.Hypertension. 12.History of chronic pain syndrome. 13.History of DJD. 14.History of benign prostatic hypertrophy. 15.Obstructive sleep apnea. 16.History of adenoidectomy. 17.History of bowel resection. 18.History of bipolar depression, panic disorder. 19.History of nicotine dependence. 20.Tachycardia. RECOMMENDATIONS AND DISCUSSION: I recommend to continue current medications. Continue to monitor. Continue with the bronchodilators. Continue the rest of medications. ABGs noted. Closely follow with Pulmonary. Further recommendations to follow. MMODL / IJN: [id number] /
--- NOTE | 2021-01-08 19:18 | P.PN ---
Subjective Progress Note Date: 01/08/21 Principal diagnosis: significant coronary artery disease involving left main Acute OH with elevated troponin End-stage lung disease oxygen-dependent intermittent prednisone dependent COPD with acute exacerbation Recent left-sided pneumonia Sleep disorder breathing and sleep apnea status post UPPP patient refused the CPAP machine multiple times in the past Morbid obesity History of intermittent atrial flutter 01/18/2021, patient seen eval reexamined during the rounds labs reviewed medications reviewed very anxious due to anticipated surgery on Wednesday intermittent chest pain her happening, I have discussed with RN about Xanax, respiratory status slightly improved, still have cough congestion and intermittent wheezing, arterial blood gas on room air noted pH is 7.4 pCO2 46 pO2 59, patient explained about highly risk for pulmonary complication however given the severity of coronary artery disease surgery needed 01/07/2021, patient seen eval examined during the rounds labs reviewed medications reviewed respiratory status stable, noted that PFT and ABG not yet d one discussed with RN, patient has been complaining of chest pain and tightness as well, will defer the pain medicine to primary and cardiovascular services, patient is scheduled for bypass surgery later this week 01/06/2021, patient seen and evaluated examined, patient is tentatively scheduled for triple bypass later on this week, ongoing cough congestion and chest tightness remains on breathing treatments antibiotics and IV steroids 01/04/2021, patient appears slightly better but have ongoing congestion nonproductive wet cough, patient remains on steroids bronchodilator and broad- spectrum antibiotics to optimize lung condition patient has been ordered PFT and arterial blood gases this is a 65-year-old male with end-stage severe COPD chronic history of smoking and nicotine use also has history of recurrent pneumonia and states intermittent prednisone-dependent, oxygen dependent COPDpatient was recently hospitalized for left-sided pneumonia tracheobronchitis had a bronchial lavage and washing which she tolerated well discharged in stable condition 2 days prior to hospitalization demented and chest pain, patient admitted into the hospital, recent echo revealed ejection fraction of 55%, with trace MR and TR, patient was noted to have elevated troponins underwent cardiac cath angiogram found to have left main disease, patient is being eval for bypass surgery, patient has ongoing shortness of breath sputum production and wheezing has been on broad-spectrum antibiotics cardiothoracic surgery is evaluating the patient Objective - Vital Signs Vital signs: Vital Signs Temp 97.8 F 01/08/21 16:00 Pulse 58 L 01/08/21 16:00 Resp 20 01/08/21 16:00 BP 166/80 01/08/21 16:00 Pulse Ox 95 01/08/21 16:00 Intake & Output 01/08/21 01/08/21 01/09/21 06:59 18:59 06:59 Intake Total 469.32 874 Output Total 1350 750 Balance -880.68 124 Weight 91.6 kg 91.6 kg Intake: Intake, IV Titration 229.32 Amount Heparin Sod,Pork in 0.45% 229.32 NaCl 25,000 unit In 0.45 % NaCl 1 250ml.bag @ 11. 111 UNITS/KG/HR 10 mls/hr IV .Q24H [facility] Rx#: [id number] Oral 240 874 Output: Urine 1350 750 Other: Voiding Method Toilet - Exam - Constitutional General appearance: average body habitus, cooperative - Neck Neck: normal ROM Carotids: bilateral: upstroke normal Thyroid: bilateral: normal size - Respiratory Respiratory: bilateral: diminished, wheezing - Cardiovascular Rhythm: regular Heart sounds: normal: S1, S2 - Gastrointestinal General gastrointestinal: decreased bowel sounds, normal bowel sounds, soft - Integumentary Integumentary: normal turgor - Neurologic Neurologic: CNII-XII intact - Musculoskeletal Musculoskeletal: gait normal, generalized weakness, strength equal bilaterally - Psychiatric Psychiatric: A&O x's 3, appropriate affect, intact judgment & insight - Labs CBC & Chem 7: 01/07/21 06:50 01/07/21 06:50 Labs: Abnormal Lab Results - Last 24 Hours (Table) 01/07/21 01/08/21 01/08/21 Range/Units 20:32 06:09 08:10 APTT 51.1 H (22.0-30.0) sec ABG pCO2 (35-45) mmHg ABG pO2 (83-108) mmHg ABG HCO3 (21-25) mmol/L ABG Total CO2 (19-24) mmol/L ABG O2 Saturation (94-97) % POC Glucose (mg/dL) 124 H 122 H (75-99) mg/dL 01/08/21 01/08/21 01/08/21 Range/Units 11:57 12:59 16:50 APTT (22.0-30.0) sec ABG pCO2 46 H (35-45) mmHg ABG pO2 59 L* (83-108) mmHg ABG HCO3 29 H (21-25) mmol/L ABG Total CO2 30 H (19-24) mmol/L ABG O2 Saturation 89.6 L (94-97) % POC Glucose (mg/dL) 109 H 131 H (75-99) mg/dL Assessment and Plan Assessment: significant coronary artery disease involving left main Acute OH with elevated troponin End-stage lung disease oxygen-dependent intermittent prednisone dependent Ongoing chest pain likely related to angina and coronary artery disease COPD Recent left-sided pneumonia Sleep disorder breathing and sleep apnea status post UPPP patient refused the CPAP machine multiple times in the past Morbid obesity History of intermittent atrial flutter Plan: continue bronchodilator Continue antibiotics Pain management per primary service and cardiovascular service Sputum Gram stain and culture Deep breathing exercise and a incentive spirometry IV steroids Further plan of care as per clinical response of the patient Reviewed arterial blood gas And bedside spirometry Time with Patient: Greater than 30
[2021-01-08 20:49] LABS: Glucose,Whole Blood 158 mg/dL (75-99)
[2021-01-08] MEDS: ALPRAZolam 0.25 MG TAB PO PRN (21:03)
[2021-01-09] MEDS: oxyCODONE-APAP 10-325MG 1 EACH TAB PO PRN ×5 (01:43→21:13)
[2021-01-09] MEDS: HYDROmorphone 0.5 MG/0.5 ML SYRINGE IVP PRN ×6 (03:34→23:43)
[2021-01-09 06:39] LABS: Glucose,Whole Blood 130 mg/dL (75-99)
[2021-01-09] MEDS: INSULIN ASPART (NovoLOG) 100 UNIT/ML VIAL SQ SCH ×4 (06:44→20:17)
[2021-01-09] MEDS: methylPREDNISolone SOD SUCCI 125 MG/2 ML VIAL IV SCH ×4 (06:49→23:42)
[2021-01-09] MEDS: PANTOPRAZOLE 40 MG TABLET PO SCH (06:49)
[2021-01-09] MEDS: METOPROLOL TARTRATE 50 MG TAB PO SCH ×2 (08:14→20:17)
[2021-01-09] MEDS: ASPIRIN 81 MG PO SCH (08:14)
[2021-01-09] MEDS: FINASTERIDE 5 MG TAB PO SCH (08:14)
[2021-01-09] MEDS: busPIRone HCl 5 MG TAB PO SCH ×2 (08:14→20:18)
[2021-01-09] MEDS: MONTELUKAST 10 MG TAB PO SCH (08:14)
[2021-01-09] MEDS: DULoxetine HCL 60 MG CAPSULE.DR PO SCH (08:15)
[2021-01-09] MEDS: TAMSULOSIN 0.4 MG CAP.ER.24H PO SCH (08:15)
[2021-01-09] MEDS: FERROUS SULFATE 325 MG TAB PO SCH (08:15)
[2021-01-09] MEDS: ATORVASTATIN 40 MG TAB PO SCH (08:15)
[2021-01-09] MEDS: hydrALAZINE HCL 50 MG TAB PO SCH ×3 (08:15→20:18)
[2021-01-09] MEDS: hydroCHLOROthiazide 25 MG TAB PO SCH (08:15)
[2021-01-09] MEDS: buPROPion XL 300 MG TAB.ER.24H PO SCH (08:16)
[2021-01-09] MEDS: MUPIROCIN 2% OINT 22 GM TUBE NASAL SCH ×2 (08:16→20:19)
[2021-01-09] MEDS: allopurinoL 300 MG TAB PO SCH (08:30)
[2021-01-09] MEDS: NITROGLYCERIN OINT 1 INCH/GM PACKET TOPICAL SCH ×3 (08:31→23:42)
[2021-01-09] MEDS: FORMOTEROL FUMARATE 20 MCG/2 ML NEBU INHALATION SCH ×2 (08:36→21:46)
[2021-01-09] MEDS: IPRATROPIUM-ALBUTEROL 3 ML NEB INHALATION SCH ×4 (08:36→21:46)
[2021-01-09] MEDS: BUDESONIDE 1 MG/2 ML NEBU INHALATION SCH ×2 (08:36→21:46)
[2021-01-09] MEDS: ACETYLCYSTEINE 800 MG/4 ML VIAL INHALATION SCH ×4 (08:38→21:46)
[2021-01-09 10:38] LABS: Basophils % (A) 0 %; Eosinophils % (A) 0 %; HCT 36.8 % (39.0-53.0); HGB 12.5 gm/dL (13.0-17.5); Lymphocytes # (A) 0.7 k/uL (1.0-4.8); Lymphocytes % (A) 5 %; MCHC 33.9 g/dL (31.0-37.0); MCV 91.6 fL (80.0-100.0); Mean Platelet Volume 7.1; Monocytes # (A) 0.6 k/uL (0-1.0); Monocytes % (A) 5 %; Neutrophils # (A) 11.8 k/uL (1.3-7.7); Neutrophils % (A) 89 %; Platelet Count 189 k/uL (150-450); RBC 4.02 m/uL (4.30-5.90); WBC 13.2 k/uL (3.8-10.6)
[2021-01-09 10:54] LABS: Partial Thromboplastin Time 55.1 sec (22.0-30.0); Prothrombin Time 10.9 sec (9.0-12.0)
--- NOTE | 2021-01-09 11:01 | P.PN ---
Subjective Progress Note Date: 01/09/21 Principal diagnosis: significant coronary artery disease involving left main Acute [place] with elevated troponin End-stage lung disease oxygen-dependent intermittent prednisone dependent COPD with acute exacerbation Recent left-sided pneumonia Sleep disorder breathing and sleep apnea status post UPPP patient refused the CPAP machine multiple times in the past Morbid obesity History of intermittent atrial flutter 01/09/2021, patient seen eval examined during the rounds sitting upright in the bed continued to complain of anxiety as well as chest pain breathing slightly improved now arterial bloods is reviewed, spirometric pending, blood cultures no growth, patient remains on IV Rocephin, chest x-ray COPD-like changes, BiPAP again offered however patient declined 01/08/2021, patient seen eval reexamined during the rounds labs reviewed medications reviewed very anxious due to anticipated surgery on Wednesday intermittent chest pain her happening, I have discussed with RN about Xanax, respiratory status slightly improved, still have cough congestion and intermittent wheezing, arterial blood gas on room air noted pH is 7.4 pCO2 46 pO2 59, patient explained about highly risk for pulmonary complication however given the severity of coronary artery disease surgery needed 01/07/2021, patient seen eval examined during the rounds labs reviewed medications reviewed respiratory status stable, noted that PFT and ABG not yet done discussed with RN, patient has been complaining of chest pain and tightness as well, will defer the pain medicine to primary and cardiovascular services, patient is scheduled for bypass surgery later this week 01/06/2021, patient seen and evaluated examined, patient is tentatively scheduled for triple bypass later on this week, ongoing cough congestion and chest tightness remains on breathing treatments antibiotics and IV steroids 01/04/2021, patient appears slightly better but have ongoing congestion nonproductive wet cough, patient remains on steroids bronchodilator and broad- spectrum antibiotics to optimize lung condition patient has been ordered PFT and arterial blood gases this is a 65-year-old male with end-stage severe COPD chronic history of smoking and nicotine use also has history of recurrent pneumonia and states intermittent prednisone-dependent, oxygen dependent COPDpatient was recently hospitalized for left-sided pneumonia tracheobronchitis had a bronchial lavage and washing which she tolerated well discharged in stable condition 2 days prior to hospitalization demented and chest pain, patient admitted into the hospital, recent echo revealed ejection fraction of 55%, with trace MR and TR, patient was noted to have elevated troponins underwent cardiac cath angiogram found to have left main disease, patient is being eval for bypass surgery, patient has ongoing shortness of breath sputum production and wheezing has been on broad-spectrum antibiotics cardiothoracic surgery is evaluating the patient Objective - Vital Signs Vital signs: Vital Signs Temp 98.1 F 01/09/21 08:00 Pulse 68 01/09/21 08:55 Resp 18 01/09/21 08:00 BP 133/75 01/09/21 08:00 Pulse Ox 94 L 01/09/21 08:00 Intake & Output 01/08/21 01/09/21 01/09/21 18:59 06:59 18:59 Intake Total 874 665.865 240 Output Total 750 1550 Balance 124 -884.135 240 Weight 91.6 kg 91.7 kg Intake: Intake, IV Titration 215.865 Amount Heparin Sod,Pork in 0.45% 215.865 NaCl 25,000 unit In 0.45 % NaCl 1 250ml.bag @ 11. 111 UNITS/KG/HR 10 mls/hr IV .Q24H [facility] Rx#: [id number] Oral 874 450 240 Output: Urine 750 1550 Other: Voiding Method Urinal Urinal # Voids 1 - Exam - Constitutional General appearance: average body habitus, cooperative - Neck Neck: normal ROM Carotids: bilateral: upstroke normal Thyroid: bilateral: normal size - Respiratory Respiratory: bilateral: diminished, wheezing - Cardiovascular Rhythm: regular Heart sounds: normal: S1, S2 - Gastrointestinal General gastrointestinal: decreased bowel sounds, normal bowel sounds, soft - Integumentary Integumentary: normal turgor - Neurologic Neurologic: CNII-XII intact - Musculoskeletal Musculoskeletal: gait normal, generalized weakness, strength equal bilaterally - Psychiatric Psychiatric: A&O x's 3, appropriate affect, intact judgment & insight - Labs CBC & Chem 7: 01/09/21 09:56 01/07/21 06:50 Labs: Abnormal Lab Results - Last 24 Hours (Table) 01/08/21 01/08/21 01/08/21 Range/Units 11:57 12:59 16:50 WBC (3.8-10.6) k/uL RBC (4.30-5.90) m/uL Hgb (13.0-17.5) gm/dL Hct (39.0-53.0) % Neutrophils # (1.3-7.7) k/uL Lymphocytes # (1.0-4.8) k/uL APTT (22.0-30.0) sec ABG pCO2 46 H (35-45) mmHg ABG pO2 59 L* (83-108) mmHg ABG HCO3 29 H (21-25) mmol/L ABG Total CO2 30 H (19-24) mmol/L ABG O2 Saturation 89.6 L (94-97) % POC Glucose (mg/dL) 109 H 131 H (75-99) mg/dL 01/08/21 01/09/21 01/09/21 Range/Units 20:26 06:37 09:56 WBC 13.2 H (3.8-10.6) k/uL RBC 4.02 L (4.30-5.90) m/uL Hgb 12.5 L (13.0-17.5) gm/dL Hct 36.8 L (39.0-53.0) % Neutrophils # 11.8 H (1.3-7.7) k/uL Lymphocytes # 0.7 L (1.0-4.8) k/uL APTT (22.0-30.0) sec ABG pCO2 (35-45) mmHg ABG pO2 (83-108) mmHg ABG HCO3 (21-25) mmol/L ABG Total CO2 (19-24) mmol/L ABG O2 Saturation (94-97) % POC Glucose (mg/dL) 158 H 130 H (75-99) mg/dL 01/09/21 Range/Units 09:56 WBC (3.8-10.6) k/uL RBC (4.30-5.90) m/uL Hgb (13.0-17.5) gm/dL Hct (39.0-53.0) % Neutrophils # (1.3-7.7) k/uL Lymphocytes # (1.0-4.8) k/uL APTT 55.1 H (22.0-30.0) sec ABG pCO2 (35-45) mmHg ABG pO2 (83-108) mmHg ABG HCO3 (21-25) mmol/L ABG Total CO2 (19-24) mmol/L ABG O2 Saturation (94-97) % POC Glucose (mg/dL) (75-99) mg/dL Assessment and Plan Assessment: significant coronary artery disease involving left main Acute AR with elevated troponin End-stage lung disease oxygen-dependent intermittent prednisone dependent Ongoing chest pain likely related to angina and coronary artery disease COPD Recent left-sided pneumonia Sleep disorder breathing and sleep apnea status post UPPP patient refused the CPAP machine multiple times in the past Morbid obesity History of intermittent atrial flutter Plan: continue bronchodilator Continue antibiotics Pain management per primary service and cardiovascular service Sputum Gram stain and culture Deep breathing exercise and a incentive spirometry IV steroids Further plan of care as per clinical response of the patient Reviewed arterial blood gas And bedside spirometry Time with Patient: Greater than 30
--- NOTE | 2021-01-09 11:14 | P.PN ---
Subjective Progress Note Date: 01/09/21 Principal diagnosis: Coronary artery disease with left main disease, non-ST elevated myocardial infarction this admission. Past medical history significant for atrial flutter, hypertension, COPD, obstructive sleep apnea without CPAP use, status post uvulectomy, previous tobacco dependence, recent pneumonia, GI bleed, anxiety/depression, PTSD, marijuana use, and chronic pain. The patient is seen in follow-up today as bedside on the cardiac stepdown unit. Currently is laying in bed, is awake, alert and oriented 3 and is in no apparent acute distress. Denies any complaints of pain or shortness of breath at this time. Reports that his voice is a little hoarse today and that he does have a harsh cough. He is able to achieve 2500 mL on his incentive spirometry and his oxygen saturations are 95% on room air. He remains afebrile. He has been up ambulating in his room without difficulty. Preoperative teaching has been reinforced with the patient, he is scheduled for myocardial revascularization surgery tomorrow 01/10/2021. He remains on Rocephin IV piggyback and Solu-Medrol for acute purulent tracheobronchitis managed by primary care service. Blood cultures final results show no growth and preoperative nasal screen was negative for MSSA or MRSA. Objective - Vital Signs Vital signs: Vital Signs Temp 98.1 F 01/09/21 08:00 Pulse 68 01/09/21 08:55 Resp 18 01/09/21 08:00 BP 133/75 01/09/21 08:00 Pulse Ox 94 L 01/09/21 08:00 Intake & Output 01/08/21 01/09/21 01/09/21 18:59 06:59 18:59 Intake Total 874 665.865 240 Output Total 750 1550 Balance 124 -884.135 240 Weight 91.6 kg 91.7 kg Intake: Intake, IV Titration 215.865 Amount Heparin Sod,Pork in 0.45% 215.865 NaCl 25,000 unit In 0.45 % NaCl 1 250ml.bag @ 11. 111 UNITS/KG/HR 10 mls/hr IV .Q24H [facility] Rx#: [id number] Oral 874 450 240 Output: Urine 750 1550 Other: Voiding Method Urinal Urinal # Voids 1 - Exam CONSTITUTIONAL: Laying in bed on the cardiac stepdown unit, appears comfortable, cooperative, no apparent acute distress. HEENT: Neck is supple, no JVD, no lymphadenopathy. RESPIRATORY: Lungs with few scattered expiratory wheezes throughout, diminished to his bilateral bases. Respirations are symmetrical and nonlabored. Oxygen saturation is 95% on room air. Achieving 2500 mL on his incentive spirometry with encouragement. Strong cough. CARDIOVASCULAR: Regular rhythm and bradycardic rate. S1 and S2 present, negative for S3, gallop or murmur. Remote telemetry showing sinus bradycardia heart rate 55 BPM. No edema present. GASTROINTESTINAL: Abdomen soft, nontender, nondistended. Active bowel sounds present 4 quadrants. Tolerating diet. Passing flatus. No guarding or rigidity. GENITOURINARY: Continues to void. INTEGUMENTARY: Skin is warm and dry, no evidence of clubbing or cyanosis. NEUROLOGIC: Cranial nerves II through XII intact. No focal deficits. MUSKULOSKELETAL: Able to move all extremities, strength equal bilaterally. PSYCHIATRIC: Alert and oriented to person place and time, appropriate affect, intact judgment and insight. - Labs CBC & Chem 7: 01/09/21 09:56 01/07/21 06:50 Labs: Abnormal Lab Results - Last 24 Hours (Table) 01/08/21 01/08/21 01/08/21 Range/Units 11:57 12:59 16:50 WBC (3.8-10.6) k/uL RBC (4.30-5.90) m/uL Hgb (13.0-17.5) gm/dL Hct (39.0-53.0) % Neutrophils # (1.3-7.7) k/uL Lymphocytes # (1.0-4.8) k/uL ABG pCO2 46 H (35-45) mmHg ABG pO2 59 L* (83-108) mmHg ABG HCO3 29 H (21-25) mmol/L ABG Total CO2 30 H (19-24) mmol/L ABG O2 Saturation 89.6 L (94-97) % POC Glucose (mg/dL) 109 H 131 H (75-99) mg/dL 01/08/21 01/09/21 01/09/21 Range/Units 20:26 06:37 09:56 WBC 13.2 H (3.8-10.6) k/uL RBC 4.02 L (4.30-5.90) m/uL Hgb 12.5 L (13.0-17.5) gm/dL Hct 36.8 L (39.0-53.0) % Neutrophils # 11.8 H (1.3-7.7) k/uL Lymphocytes # 0.7 L (1.0-4.8) k/uL ABG pCO2 (35-45) mmHg ABG pO2 (83-108) mmHg ABG HCO3 (21-25) mmol/L ABG Total CO2 (19-24) mmol/L ABG O2 Saturation (94-97) % POC Glucose (mg/dL) 158 H 130 H (75-99) mg/dL Assessment and Plan Assessment: 1. Coronary artery disease with left main disease 2. Non-ST elevated myocardial infarction this admission 3. Acute purulent tracheobronchitis without evidence of pneumonia at this admission, currently treated with ceftriaxone and IV Solu-Medrol 4. History of atrial flutter, currently sinus bradycardia on remote telemetry 5. Hypertension 6. COPD, FEV1 80% of predicted on bedside spirometry completed January 02/2021 7. Obstructive sleep apnea without CPAP use, status post uvulectomy 8. Previous tobacco dependence 9. Elevated lactic acid present on admission at 5.8, resolved 10. History of GI bleed, with history of bowel resection 11. Anxiety/depression, PTSD, bipolar disorder 12. Marijuana use 13. Chronic pain syndrome 14. History of benign prostatic hypertrophy Plan: 1. Continue to maximize medical therapy with aspirin, statin, and beta emerald. 2. Encourage incentive spirometry use 10 times every hour while awake. Antibiotics, steroids per pulmonology/primary care management. 3. Increase activity, ambulate as tolerated. Out of bed for all meals. 4. Heparin drip management per cardiology recommendations. 5. GI/DVT prophylaxis. 6. The patient is scheduled for myocardial revascularization with left internal mammary artery and endoscopic vein harvest, ligation of left atrial appendage with Dr. Zayas on 01/10/2021 allowing time for patient to be medically optimized including pulmonary treatment. 7. Nothing by mouth after midnight. 8. Preoperative teaching reinforced with the patient. 9. More recommendations to follow based on patient's clinical course. Time with Patient: Greater than 30
[2021-01-09 11:32] LABS: Albumin 3.4 g/dL (3.5-5.0); Calcium 8.6 mg/dL (8.4-10.2); Magnesium 2.3 mg/dL (1.6-2.3); Potassium 3.6 mmol/L (3.5-5.1); Total Bilirubin 0.2 mg/dL (0.2-1.3); Total Protein 5.3 g/dL (6.3-8.2)
[2021-01-09 11:51] LABS: Glucose,Whole Blood 116 mg/dL (75-99)
--- NOTE | 2021-01-09 14:17 | P.PN ---
Subjective This is a pleasant 65-year-old male past medical history significant for COPD, former nicotine dependence, hypertension, obstructive sleep apnea, anx iety/depression, marijuana use. 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 He denies any prior documented history of coronary artery disease. We have been asked to see in consultation for chest pain. Symptoms of chest discomfort and progressive dyspnea with mild troponin elevation recommended that patient proceed with coronary angiography. Patient underwent cardiac catheterization with Dr. Curtis 01/02/21 which revealed significant distal left main disease, moderate disease in LAD and left circumflex with moderate significant disease in the ramus intermedius and mild disease in the RCA. Calcified coronary arteries. It was recommended to proceed with evaluation for possible coronary artery bypa ss grafting. CT surgery was consulted. Echocardiogram revealed EF 55-60%, trace MR, trace TR. 01/09/2021: Patient seen and examined at bedside, no acute distress. Patient states he is ambulating in the room without difficulty. He denies palpitations, shortness of breath. He is using incentive spirometer able to achieve 2000-2500mL. His lungs sounds are improved from yetserday Telemetry reviewed patient in sinus mechanism heart rate 50 to 60s. Patient currently maintained on heparin drip, aspirin 81 mg daily, atorvastatin 40 mg daily, hydralazine 100 mg 3 times a day, hydrochlorothiazide 25mg daily, metoprolol tartrate 50 mg twice a day, IV ceftriaxone. BP 146/78 HR 58 afebrile, maintaining oxygen saturation >92% on room air. PHYSICAL EXAMINATION Vitals: reviewed CONSTITUTIONAL: No apparent distress. HEENT: Head is normocephalic. No JVD. No carotid bruit. CHEST EXAMINATION: Lungs are diminished bilaterally with mild wheezes HEART EXAMINATION: Regular rate and rhythm. S1, S2 heard. No gallops or rub. ABDOMEN: Soft, nontender. Positive bowel sounds. EXTREMITIES: 2+ peripheral pulses, no lower extremity edema and no calf tenderness. Right Radial site clean dry intact no hematoma 2+ pulses Right Groin site clean dry intact, mild bruising, no hematoma 2+ peripheral pulses NEUROLOGIC EXAMINATION: Patient is awake, alert and oriented x3. ASSESSMENT NSTEMI Coronary artery disease with left main disease Pneumonia- currently being treated with ceftriaxone and IV solu-medrol Hypertension COPD Obstructive sleep apnea PLAN -Continue aspirin, statin, beta emerald -Encourage incentive spirometry use -Pulmonary is following patient is currently being treated with bronchodilators, IV solu-medrol and ceftriaxone -Per CT surgery- plan for myocardial revascularization with left internal mammary artery and endoscopic vein harvest, ligation of left atrial appendage with Dr. Zayas on 01/10/2021 -We will continue to follow Nurse Practitioner note has been reviewed, I agree with a documented findings and plan of care. Patient was seen and examined. Objective - Vital Signs Vital signs: Vital Signs Temp 98.0 F 01/09/21 11:12 Pulse 68 01/09/21 12:00 Resp 18 01/09/21 11:12 BP 146/78 01/09/21 11:12 Pulse Ox 93 L 01/09/21 11:12 Intake & Output 01/08/21 01/09/21 01/09/21 18:59 06:59 18:59 Intake Total 874 665.865 240 Output Total 750 1550 Balance 124 -884.135 240 Weight 91.6 kg 91.7 kg Intake: Intake, IV Titration 215.865 Amount Heparin Sod,Pork in 0.45% 215.865 NaCl 25,000 unit In 0.45 % NaCl 1 250ml.bag @ 11. 111 UNITS/KG/HR 10 mls/hr IV .Q24H [facility] Rx#: [id number] Oral 874 450 240 Output: Urine 750 1550 Other: Voiding Method Urinal Urinal # Voids 1 - Labs CBC & Chem 7: 01/09/21 09:56 01/09/21 09:56 Labs: Abnormal Lab Results - Last 24 Hours (Table) 01/08/21 01/08/21 01/09/21 Range/Units 16:50 20:26 06:37 WBC (3.8-10.6) k/uL RBC (4.30-5.90) m/uL Hgb (13.0-17.5) gm/dL Hct (39.0-53.0) % Neutrophils # (1.3-7.7) k/uL Lymphocytes # (1.0-4.8) k/uL APTT (22.0-30.0) sec Sodium (137-145) mmol/L Carbon Dioxide (22-30) mmol/L BUN (9-20) mg/dL Glucose (74-99) mg/dL POC Glucose (mg/dL) 131 H 158 H 130 H (75-99) mg/dL Total Protein (6.3-8.2) g/dL Albumin (3.5-5.0) g/dL Crossmatch 01/09/21 01/09/21 01/09/21 Range/Units 09:56 09:56 09:56 WBC 13.2 H (3.8-10.6) k/uL RBC 4.02 L (4.30-5.90) m/uL Hgb 12.5 L (13.0-17.5) gm/dL Hct 36.8 L (39.0-53.0) % Neutrophils # 11.8 H (1.3-7.7) k/uL Lymphocytes # 0.7 L (1.0-4.8) k/uL APTT 55.1 H (22.0-30.0) sec Sodium (137-145) mmol/L Carbon Dioxide (22-30) mmol/L BUN (9-20) mg/dL Glucose (74-99) mg/dL POC Glucose (mg/dL) (75-99) mg/dL Total Protein (6.3-8.2) g/dL Albumin (3.5-5.0) g/dL Crossmatch See Detail 01/09/21 01/09/21 Range/Units 09:56 11:50 WBC (3.8-10.6) k/uL RBC (4.30-5.90) m/uL Hgb (13.0-17.5) gm/dL Hct (39.0-53.0) % Neutrophils # (1.3-7.7) k/uL Lymphocytes # (1.0-4.8) k/uL APTT (22.0-30.0) sec Sodium 136 L (137-145) mmol/L Carbon Dioxide 31 H (22-30) mmol/L BUN 36 H (9-20) mg/dL Glucose 132 H (74-99) mg/dL POC Glucose (mg/dL) 116 H (75-99) mg/dL Total Protein 5.3 L (6.3-8.2) g/dL Albumin 3.4 L (3.5-5.0) g/dL Crossmatch
[2021-01-09] MEDS ORDERED: MD COMMUNICATION TO PHARMACY 1 EACH MISC PO ONE ×3 (16:06)
[2021-01-09 16:43] LABS: Glucose,Whole Blood 127 mg/dL (75-99)
--- NOTE | 2021-01-09 17:35 | PN ---
PROGRESS NOTE DATE OF SERVICE: 01/09/2021 This 65-year-old gentleman who was admitted with chest pain possible acute non-ST- segment-elevation myocardial infarction also had left main disease. Cardiothoracic Surgery is planning surgery. No chest pain. No palpitations. No fever. PHYSICAL EXAMINATION: Alert and oriented x3. Pulse 58, blood pressure 140/70, respiration 18, temperature 98 degrees, pulse ox 93% on room air. HEENT: Conjunctivae normal. Oral mucosa moist. NECK: No jugular venous distention. No lymph node enlargement. CARDIOVASCULAR: S1, S2, muffled. No S3, no S4, RESPIRATORY: Diminished breath sounds at the bases. A few scattered rhonchi. ABDOMEN: Soft. NERVOUS SYSTEM: No focal deficits. LABS: WBC 13.2, hemoglobin 12.5, sodium 136. ASSESSMENT: 1. Chest pain possible acute sex-OW-cwrbltk-elevation myocardial infarction with left main disease status post cardiac catheterization. Troponin 0.075. 2. Chronic obstructive pulmonary disease acute exacerbation. 3. History of bronchial asthma, acute exacerbation. 4. Acute purulent tracheobronchitis without any evidence of pneumonia. 5. Elevated lactic acid, present on admission, improved. 6. Increased WBC. 7. History of recent syncope. 8. History atrial fibrillation. 9. History of chronic obstructive pulmonary disease. 10.Gastroesophageal reflux disease. 11.Hypertension. 12.History of chronic pain syndrome. 13.History of degenerative joint disease. 14.History of benign prostatic hypertrophy. 15.History of obstructive sleep apnea. 16.History of adenoidectomy. 17.History of bowel resection. 18.Bipolar depression, panic disorder. 19.History of nicotine dependence. 20.Tachycardia. RECOMMENDATIONS AND DISCUSSION: I recommend to continue current medications, continue to monitor, continue symptomatic treatment. Otherwise, at this time I would recommend continue the bronchodilators. Otherwise, closely follow with Pulmonary. Cardiothoracic Surgery following the patient closely. Prognosis guarded. Further recommendations to follow. MMODL / IJN: [id number] /
[2021-01-09] MEDS: HEPARIN SOD,PORK IN 0.45% NACL 25,000 UNIT in 0.45% NACL 1 250ML.BAG IV SCH (18:45)
[2021-01-09 20:07] LABS: Glucose,Whole Blood 169 mg/dL (75-99)
[2021-01-09] MEDS: ALPRAZolam 0.25 MG TAB PO PRN (21:13)
[2021-01-10] MEDS: oxyCODONE-APAP 10-325MG 1 EACH TAB PO PRN ×2 (01:04→05:05)
[2021-01-10] MEDS: HYDROmorphone 0.5 MG/0.5 ML SYRINGE IVP PRN (03:48)
[2021-01-10] MEDS ORDERED: CARDIOPLEGIC SOLN (K+ 16 MEQ/L 1,000 ML with SOD BICARB SYR 8.4% (1 MEQ/ML) 20 ML, LIDO... PERFUSION PRN ×3 (05:00)
[2021-01-10] MEDS ORDERED: TRANEXAMIC ACID 2,000 MG in SODIUM CHLORIDE 0.9% 80 ML IV ONE (05:00)
[2021-01-10] MEDS ORDERED: NITROGLYCERIN-D5W PMX 25 MG/250 ML BTL IV ONE (05:00)
[2021-01-10] MEDS ORDERED: CHLORHEXIDINE GLUCONATE 15 ML CUP MUCOUS MEM ONE (05:00)
[2021-01-10] MEDS ORDERED: SODIUM BICARB 8.4% 50 ML SYR (1 MEQ/ML) IV ONE (05:00)
[2021-01-10] MEDS ORDERED: PROTAMINE SULFATE 10 MG/ML 25 ML VIAL IV ONE (05:00)
[2021-01-10] MEDS ORDERED: ALBUMIN HUMAN 25% 50 ML in EMPTY BAG 1 BAG IVPB ONE (05:00)
[2021-01-10] MEDS ORDERED: ceFAZolin 1,000 MG in SODIUM CHLORIDE 0.9% IRRIGATIO 1,000 ML IRRIGATION ONE (05:00)
[2021-01-10] MEDS ORDERED: ALBUMIN HUMAN 5% 500 ML in EMPTY BAG 1 BAG IVPB ONE ×6 (05:00)
[2021-01-10] MEDS ORDERED: CALCIUM CHLORIDE 100 MG/ML 10 ML SYRINGE IVP ONE (05:00)
[2021-01-10] MEDS ORDERED: LACTATED RINGERS 1,000 ML IV ONE (05:00)
[2021-01-10] MEDS ORDERED: HEPARIN SODIUM 1,000 UN/ML (10ML VL) IV ONE (05:00)
[2021-01-10] MEDS ORDERED: NOREPINEPHRINE 4 MG in SODIUM CHLORIDE 0.9% 250 ML IV ONE (05:00)
[2021-01-10] MEDS ORDERED: ATORVASTATIN 10 MG TAB PO ONE (05:00)
[2021-01-10] MEDS ORDERED: PHENYLEPHRINE 40 MG in SODIUM CHLORIDE 0.9% 250 ML IV ONE (05:00)
[2021-01-10] MEDS ORDERED: INSULIN REGULAR 100 UNIT in SODIUM CHLORIDE 0.9% 100 ML IV ONE (05:00)
[2021-01-10] MEDS ORDERED: PHENYLEPHRINE 10 MG/ML VIAL IV ONE (05:00)
[2021-01-10] MEDS ORDERED: METOPROLOL TARTRATE 12.5 MG TAB PO ONE (05:00)
[2021-01-10] MEDS ORDERED: MANNITOL 25% 12.5 GM/50 ML VIAL IV ONE ×2 (05:00)
[2021-01-10] MEDS ORDERED: NITROGLYCERIN-D5W PMX 50 MG in DEXTROSE/WATER 1 250ML.BAG IV ONE (05:00)
[2021-01-10] MEDS ORDERED: MAGNESIUM SULFATE SYG 4.06 MEQ/ML SYRINGE IV ONE (05:00)
[2021-01-10] MEDS ORDERED: PROTAMINE SULFATE 250 MG in EMPTY BAG 1 BAG IV ONE (05:00)
[2021-01-10] MEDS ORDERED: PAPAVERINE 360 MG in SODIUM CHLORIDE 0.9% 90 ML IV ONE (05:00)
[2021-01-10] MEDS ORDERED: HEPARIN SODIUM,PORCINE 5,000 UNIT in SODIUM CHLORIDE 0.9% 500 ML 500 ML IV ONE (05:00)
[2021-01-10] MEDS ORDERED: ASPIRIN 325 MG TAB PO ONE (05:00)
[2021-01-10] MEDS ORDERED: CLEVIDIPINE BUTYRATE 25 MG in EMPTY BAG 1 BAG IV ONE (05:00)
[2021-01-10 05:12] LABS: Glucose,Whole Blood 130 mg/dL (75-99)
[2021-01-10] MEDS: FORMOTEROL FUMARATE 20 MCG/2 ML NEBU INHALATION SCH ×2 (07:08→19:14)
[2021-01-10] MEDS: BUDESONIDE 1 MG/2 ML NEBU INHALATION SCH ×2 (07:08→19:14)
[2021-01-10] MEDS: IPRATROPIUM-ALBUTEROL 3 ML NEB INHALATION SCH ×3 (07:08→19:14)
[2021-01-10] MEDS ORDERED: PROTAMINE SULFATE 10 MG/ML 5 ML VIAL IV ONE (08:00)
[2021-01-10] MEDS ORDERED: PROPOFOL 10 MG/ML 20 ML VIAL IV ONE (08:00)
[2021-01-10] MEDS ORDERED: ceFAZolin 1,000 MG VIAL ONE (08:00)
[2021-01-10] MEDS ORDERED: MIDAZOLAM 2 MG/2 ML VIAL ONE (08:00)
[2021-01-10] MEDS ORDERED: fentaNYL (PF) 50 MCG/ML 2 ML AMP ONE (08:00)
[2021-01-10] MEDS ORDERED: NITROGLYCERIN-D5W PMX 50 MG/250 ML BOTTLE IV ONE (08:00)
[2021-01-10] MEDS ORDERED: HEPARIN SODIUM,PORCINE 10,000 UNIT/ML 1 ML VIAL ONE (08:00)
[2021-01-10] MEDS ORDERED: ALBUMIN HUMAN 5% (25gm) 500 ML VIAL IVPB ONE (08:00)
[2021-01-10] MEDS ORDERED: POTASSIUM CHLORIDE OPEN HEART 20 MEQ/50 ML BAG IVPB ONE (08:00)
[2021-01-10] MEDS ORDERED: ePHEDrine SULFATE/0.9% NACL/PF 50 MG/5 ML SYRINGE IV ONE (08:00)
[2021-01-10] MEDS ORDERED: VECURONIUM 10 MG VIAL IV ONE (08:00)
[2021-01-10] MEDS ORDERED: fentaNYL (PF) 50 MCG/ML 50 ML VIAL ONE (08:00)
[2021-01-10] MEDS ORDERED: DILTIAZEM 125 MG in SODIUM CHLORIDE 0.9% 100 ML IV SCH ×2 (08:00→12:30)
[2021-01-10] MEDS ORDERED: SODIUM CHLORIDE 0.9% 100 ML BAG ONE (08:00)
[2021-01-10] MEDS ORDERED: SODIUM CHLORIDE 0.9% IRRIG 1,000 ML BTL IRRIGATION ONE (08:00)
[2021-01-10 08:41] LABS: ABG Base Excess 4.3 mmol/L; ABG Glucose Whole Blood 104 mg/dL (75-99); ABG HCO3 28 mmol/L (21-25); ABG Hematocrit 35 % (34.0-46.0); ABG Ionized Calcium 4.3 mg/dL (4.5-5.3); ABG Lactic Acid Whole Blood 1.2 mmol/L (0.5-1.6); ABG Oxygen Saturation 97.2 % (94-97); ABG PCO2 40 mmHg (35-45); ABG PH 7.46 (7.35-7.45); ABG PO2 81 mmHg (83-108); ABG Potassium Whole Blood 3.7 mmol/L (3.4-4.5); ABG Sodium Whole Blood 136 mmol/L (135-146); ABG TCO2 30 mmol/L (19-24)
[2021-01-10 10:06] LABS: ABG Base Excess 2.5 mmol/L; ABG Glucose Whole Blood 127 mg/dL (75-99); ABG HCO3 27 mmol/L (21-25); ABG Hematocrit 32 % (34.0-46.0); ABG Ionized Calcium 4.2 mg/dL (4.5-5.3); ABG Lactic Acid Whole Blood 1.5 mmol/L (0.5-1.6); ABG Oxygen Saturation 99.5 % (94-97); ABG PCO2 39 mmHg (35-45); ABG PH 7.44 (7.35-7.45); ABG PO2 137 mmHg (83-108); ABG Potassium Whole Blood 3.4 mmol/L (3.4-4.5); ABG Sodium Whole Blood 136 mmol/L (135-146); ABG TCO2 28 mmol/L (19-24)
[2021-01-10 10:43] LABS: ABG Base Excess 2.7 mmol/L; ABG Glucose Whole Blood 125 mg/dL (75-99); ABG HCO3 27 mmol/L (21-25); ABG Hematocrit 30 % (34.0-46.0); ABG Ionized Calcium 4.2 mg/dL (4.5-5.3); ABG Lactic Acid Whole Blood 1.9 mmol/L (0.5-1.6); ABG Oxygen Saturation 99.6 % (94-97); ABG PCO2 38 mmHg (35-45); ABG PH 7.46 (7.35-7.45); ABG PO2 136 mmHg (83-108); ABG Potassium Whole Blood 3.4 mmol/L (3.4-4.5); ABG Sodium Whole Blood 136 mmol/L (135-146); ABG TCO2 28 mmol/L (19-24)
[2021-01-10 11:06] LABS: ABG Base Excess 2.6 mmol/L; ABG Glucose Whole Blood 129 mg/dL (75-99); ABG HCO3 27 mmol/L (21-25); ABG Hematocrit 30 % (34.0-46.0); ABG Ionized Calcium 4.2 mg/dL (4.5-5.3); ABG Oxygen Saturation 99.9 % (94-97); ABG PCO2 40 mmHg (35-45); ABG PH 7.44 (7.35-7.45); ABG PO2 155 mmHg (83-108); ABG Potassium Whole Blood 3.4 mmol/L (3.4-4.5); ABG Sodium Whole Blood 136 mmol/L (135-146); ABG TCO2 28 mmol/L (19-24)
--- NOTE | 2021-01-10 11:30 | P.PN ---
Subjective Progress Note Date: 01/10/21 (8 entry note) Principal diagnosis: significant coronary artery disease involving left main Acute FL with elevated troponin End-stage lung disease oxygen-dependent intermittent prednisone dependent COPD with acute exacerbation Recent left-sided pneumonia Sleep disorder breathing and sleep apnea status post UPPP patient refused the CPAP machine multiple times in the past Morbid obesity History of intermittent atrial flutter 01/10/2021, overall respiratory status is marginal but stable, but wheezing has improved, patient does complaining of intermittent chest pain, patient is for coronary artery bypass surgery later on today 01/09/2021, patient seen eval examined during the rounds sitting upright in the bed continued to complain of anxiety as well as chest pain breathing slightly improved now arterial bloods is reviewed, spirometric pending, blood cultures no growth, patient remains on IV Rocephin, chest x-ray COPD-like changes, BiPAP again offered however patient declined 01/08/2021, patient seen eval reexamined during the rounds labs reviewed medications reviewed very anxious due to anticipated surgery on Wednesday intermittent chest pain her happening, I have discussed with RN about Xanax, respiratory status slightly improved, still have cough congestion and intermittent wheezing, arterial blood gas on room air noted pH is 7.4 pCO2 46 pO2 59, patient explained about highly risk for pulmonary complication however given the severity of coronary artery disease surgery needed 01/07/2021, patient seen eval examined during the rounds labs reviewed medic ations reviewed respiratory status stable, noted that PFT and ABG not yet done discussed with RN, patient has been complaining of chest pain and tightness as well, will defer the pain medicine to primary and cardiovascular services, patient is scheduled for bypass surgery later this week 01/06/2021, patient seen and evaluated examined, patient is tentatively scheduled for triple bypass later on this week, ongoing cough congestion and chest tightness remains on breathing treatments antibiotics and IV steroids 01/04/2021, patient appears slightly better but have ongoing congestion nonproductive wet cough, patient remains on steroids bronchodilator and broad- spectrum antibiotics to optimize lung condition patient has been ordered PFT and arterial blood gases this is a 65-year-old male with end-stage severe COPD chronic history of smoking and nicotine use also has history of recurrent pneumonia and states intermittent prednisone-dependent, oxygen dependent COPDpatient was recently hospitalized for left-sided pneumonia tracheobronchitis had a bronchial lavage and washing which she tolerated well discharged in stable condition 2 days prior to hospitalization demented and chest pain, patient admitted into the hospital, recent echo revealed ejection fraction of 55%, with trace MR and TR, patient was noted to have elevated troponins underwent cardiac cath angiogram found to have left main disease, patient is being eval for bypass surgery, patient has ongoing shortness of breath sputum production and wheezing has been on broad-spectrum antibiotics cardiothoracic surgery is evaluating the patient Objective - Vital Signs Vital signs: Vital Signs Temp 97.1 F L 01/10/21 06:20 Pulse 58 L 01/10/21 07:27 Resp 18 01/10/21 06:20 BP 137/81 01/10/21 06:20 Pulse Ox 94 L 01/10/21 06:20 Intake & Output 01/09/21 01/10/21 01/10/21 18:59 06:59 18:59 Intake Total 1570 130.565 54 Output Total 400 Balance 1570 -269.435 54 Weight 93 kg Intake: IV 20 54 Invasive Line 5 20 Intake, IV Titration 250 110.565 Amount Heparin Sod,Pork in 0.45% 250 110.565 NaCl 25,000 unit In 0.45 % NaCl 1 250ml.bag @ 11. 111 UNITS/KG/HR 10 mls/hr IV .Q24H [facility] Rx#: [id number] Oral 1320 0 Output: Urine 400 Other: Voiding Method Urinal Urinal - Exam - Constitutional General appearance: average body habitus, cooperative - Neck Neck: normal ROM Carotids: bilateral: upstroke normal Thyroid: bilateral: normal size - Respiratory Respiratory: bilateral: diminished, wheezing - Cardiovascular Rhythm: regular Heart sounds: normal: S1, S2 - Gastrointestinal General gastrointestinal: decreased bowel sounds, normal bowel sounds, soft - Integumentary Integumentary: normal turgor - Neurologic Neurologic: CNII-XII intact - Musculoskeletal Musculoskeletal: gait normal, generalized weakness, strength equal bilaterally - Psychiatric Psychiatric: A&O x's 3, appropriate affect, intact judgment & insight - Labs CBC & Chem 7: 01/09/21 09:56 01/09/21 09:56 Labs: Abnormal Lab Results - Last 24 Hours (Table) 01/09/21 01/09/21 01/09/21 Range/Units 09:56 09:56 11:50 Sodium 136 L (137-145) mmol/L Carbon Dioxide 31 H (22-30) mmol/L BUN 36 H (9-20) mg/dL Glucose 132 H (74-99) mg/dL POC Glucose (mg/dL) 116 H (75-99) mg/dL Total Protein 5.3 L (6.3-8.2) g/dL Albumin 3.4 L (3.5-5.0) g/dL Crossmatch See Detail 01/09/21 01/09/21 01/10/21 Range/Units 16:42 20:05 05:10 Sodium (137-145) mmol/L Carbon Dioxide (22-30) mmol/L BUN (9-20) mg/dL Glucose (74-99) mg/dL POC Glucose (mg/dL) 127 H 169 H 130 H (75-99) mg/dL Total Protein (6.3-8.2) g/dL Albumin (3.5-5.0) g/dL Crossmatch Assessment and Plan Assessment: significant coronary artery disease involving left main, for coronary artery bypass surgery later on today Acute FL with elevated troponin End-stage lung disease oxygen-dependent intermittent prednisone dependent Ongoing chest pain likely related to angina and coronary artery disease COPD Recent left-sided pneumonia Sleep disorder breathing and sleep apnea status post UPPP patient refused the CPAP machine multiple times in the past Morbid obesity History of intermittent atrial flutter Plan: continue bronchodilator Continue antibiotics Continue deep breathing sense incentive spirometry Plans for bypass surgery later on today Pain management per primary service and cardiovascular service Sputum Gram stain and culture Deep breathing exercise and a incentive spirometry IV steroids Further plan of care as per clinical response of the patient Reviewed arterial blood gas And bedside spirometry Time with Patient: Greater than 30
[2021-01-10] MEDS: ACETYLCYSTEINE 800 MG/4 ML VIAL INHALATION SCH ×2 (11:42→12:00)
[2021-01-10] MEDS ORDERED: AMIODARONE 360 MG in DEXTROSE 5% IN WATER 200 ML IV PRN ×2 (12:25)
[2021-01-10] MEDS ORDERED: Potassium Replacement Protocol 1 EACH MISC MISCELLANE PRN (12:25)
[2021-01-10] MEDS ORDERED: CALCIUM GLUCONATE 2 GM in SODIUM CHLORIDE 0.9% 100 ML IVPB PRN (12:25)
[2021-01-10] MEDS ORDERED: Magnesium Replacement Protocol 1 EACH MISC MISCELLANE PRN (12:25)
[2021-01-10] MEDS ORDERED: AMIODARONE 450 MG in DEXTROSE 5% IN WATER 250 ML IV PRN ×2 (12:25)
[2021-01-10] MEDS ORDERED: Phosphorus Replacement Protoco 1 EACH MISC MISCELLANE PRN (12:25)
[2021-01-10] MEDS ORDERED: hydrALAZINE HCL 20 MG/ML 1 ML VIAL IVP PRN (12:25)
[2021-01-10] MEDS ORDERED: IPRATROPIUM-ALBUTEROL 3 ML NEB INHALATION PRN (12:25)
[2021-01-10] MEDS ORDERED: NITROGLYCERIN-D5W PMX 50 MG in DEXTROSE/WATER 1 250ML.BAG IV SCH (12:30)
[2021-01-10] MEDS ORDERED: CLEVIDIPINE BUTYRATE 25 MG in EMPTY BAG 1 BAG IV SCH (12:30)
[2021-01-10] MEDS ORDERED: DEXMEDETOMIDINE/0.9% NACL(PMX) 400 MCG in EMPTY BAG 1 BAG IV SCH (12:30)
[2021-01-10 12:38] LABS: ABG Lactic Acid Whole Blood 2.1 mmol/L (0.5-1.6)
[2021-01-10] MEDS: buPROPion XL 300 MG TAB.ER.24H PO SCH (12:44)
[2021-01-10] MEDS: allopurinoL 300 MG TAB PO SCH (12:44)
[2021-01-10] MEDS: busPIRone HCl 5 MG TAB PO SCH ×2 (12:44→20:34)
[2021-01-10] MEDS: DULoxetine HCL 60 MG CAPSULE.DR PO SCH (12:44)
[2021-01-10] MEDS: FERROUS SULFATE 325 MG TAB PO SCH (12:45)
[2021-01-10] MEDS: FINASTERIDE 5 MG TAB PO SCH (12:45)
[2021-01-10] MEDS: MONTELUKAST 10 MG TAB PO SCH (12:45)
[2021-01-10] MEDS: TAMSULOSIN 0.4 MG CAP.ER.24H PO SCH (12:45)
[2021-01-10 12:57] LABS: Glucose,Whole Blood 124 mg/dL (75-99)
[2021-01-10] MEDS: LACTATED RINGERS 1,000 ML IV SCH (12:59)
--- NOTE | 2021-01-10 13:02 | P.ANPRN ---
Procedure Note - Anesthesia - Invasive Line Right Central Line Time Out Performed: Yes (0731) Date of Procedure: 01/10/21 Time of Procedure: 07:32 Location of Patient: PreOp Preparation: Sterile Prep, Sterile Dressing Arterial Line Location: Radial Ultrasound Used: Yes Purpose - Visualization and Identification of Vasculature: Yes Needle Guage: 18g angio Image Stored and Saved: Yes Narrative: Central line placement per sterile protocol utilized. right neck prepped. +local +angio +cvp +jwire +uneventful dilation and introduction right IJ cordis. Attempt x1 Right [place] Leanne Time Out Performed: Yes (731) Date of Procedure: 01/10/21 Time of Procedure: 07:47 Location of Patient: PreOp Preparation: Sterile Prep, Sterile Dressing Arterial Line Location: Radial Ultrasound Used: No Purpose - Visualization and Identification of Vasculature: No Image Stored and Saved: No Narrative: Central line placement per sterile protocol utilized. swan floated in one attempt to 45cm no wedge.
[2021-01-10 13:08] LABS: Basophils % (A) 0 %; Eosinophils % (A) 0 %; HCT 27.8 % (39.0-53.0); Ionized Calcium 4.3 mg/dL (4.5-5.3); Lymphocytes # (A) 0.6 k/uL (1.0-4.8); Lymphocytes % (A) 4 %; MCH 30.1 pg (25.0-35.0); MCHC 32.8 g/dL (31.0-37.0); MCV 91.7 fL (80.0-100.0); Mean Platelet Volume 7.9; Monocytes # (A) 0.7 k/uL (0-1.0); Monocytes % (A) 5 %; Neutrophils # (A) 12.8 k/uL (1.3-7.7); Neutrophils % (A) 90 %; Platelet Count 138 k/uL (150-450); RBC 3.03 m/uL (4.30-5.90); RDW 15.8 % (11.5-15.5); WBC 14.2 k/uL (3.8-10.6)
[2021-01-10] MEDS: ALBUMIN HUMAN 5% 250 ML in EMPTY BAG 1 BAG IVPB PRN ×6 (13:10→17:00)
[2021-01-10 13:12] LABS: HGB 9.1 gm/dL (13.0-17.5)
[2021-01-10 13:16] LABS: Albumin 2.6 g/dL (3.5-5.0); Calcium 7.2 mg/dL (8.4-10.2); Magnesium 1.9 mg/dL (1.6-2.3); Potassium 3.5 mmol/L (3.5-5.1); Total Bilirubin 0.3 mg/dL (0.2-1.3)
--- NOTE | 2021-01-10 13:17 | XR ---
EXAMINATION TYPE: XR chest 1V portable DATE OF EXAM: 01/10/2021 Comparison: 01/06/2021 Clinical History: 65-year-old male Post Operative Cardiac Surgery Findings: ET tube satisfactory. NG tube is short. The sidehole is just above the GE junction. It could be furth er advanced by 7 cm. Mediastinal drains. Left-sided chest tube. Median sternotomy wires and post-CABG clips. Right IJ CVC tip in the proximal right main pulmonary artery. The strandy atelectasis in the lower lungs. More patchy retrocardiac and left basilar opacity. Subcutaneous emphysema along the late ral aspect of the left chest wall and left axilla. No appreciable pneumothorax. Impression: 1. The NG tube is short. Advance by 7 cm so that the side hole enters the stomach. 2. Patchy retrocardiac and left basilar atelectasis.
[2021-01-10] MEDS ORDERED: MAGNESIUM SULFATE-D5W PMX 1 GM in DEXTROSE/WATER 1 100ML.BAG IVPB ONE (13:31)
[2021-01-10] MEDS ORDERED: CALCIUM GLUCONATE 2 GM in SODIUM CHLORIDE 0.9% 100 ML IVPB ONE (13:31)
[2021-01-10 13:37] LABS: INR 1.3 (<1.2); Partial Thromboplastin Time 25.9 sec (22.0-30.0); Prothrombin Time 13.3 sec (9.0-12.0)
[2021-01-10 13:37] LABS: ABG Base Excess 1.7 mmol/L; ABG HCO3 27 mmol/L (21-25); ABG Oxygen Saturation 99.4 % (94-97); ABG PCO2 43 mmHg (35-45); ABG PO2 335 mmHg (83-108); ABG TCO2 28 mmol/L (19-24); Allen Test Performed? Yes
[2021-01-10] MEDS: POTASSIUM CHLORIDE 20 MEQ in WATER FOR INJECTION 1 100ML.BAG IVPB SCH ×2 (13:41→14:50)
[2021-01-10] MEDS: DOPamine DRIP 800 MG in DEXTROSE/WATER 1 250ML.BAG IV SCH (13:51)
[2021-01-10] MEDS ORDERED: PROTAMINE SULFATE 10 MG/ML 5 ML VIAL IV STA (13:51)
[2021-01-10 14:34] LABS: Glucose,Whole Blood 125 mg/dL (75-99)
[2021-01-10] MEDS: DEXMEDETOMIDINE/0.9% NACL(PMX) 400 MCG in EMPTY BAG 1 BAG IV SCH ×2 (15:39→21:26)
[2021-01-10 15:49] LABS: Basophils # (A) 0.1 k/uL (0-0.2); Basophils % (A) 0 %; Eosinophils % (A) 0 %; HCT 23.1 % (39.0-53.0); Lymphocytes # (A) 1.7 k/uL (1.0-4.8); Lymphocytes % (A) 6 %; MCH 29.7 pg (25.0-35.0); MCHC 32.1 g/dL (31.0-37.0); MCV 92.6 fL (80.0-100.0); Mean Platelet Volume 7.5; Monocytes # (A) 1.9 k/uL (0-1.0); Monocytes % (A) 7 %; Neutrophils # (A) 22.6 k/uL (1.3-7.7); Neutrophils % (A) 86 %; Platelet Count 215 k/uL (150-450); RDW 15.7 % (11.5-15.5); WBC 26.4 k/uL (3.8-10.6)
[2021-01-10 16:00] LABS: HGB 7.4 gm/dL (13.0-17.5)
[2021-01-10] MEDS ORDERED: IPRATROPIUM-ALBUTEROL 3 ML NEB INHALATION SCH (16:00)
[2021-01-10] MEDS: HEPARIN SODIUM,PORCINE/PF 5,000 UNIT/0.5 ML SYRINGE SQ SCH ×2 (16:18→23:30)
[2021-01-10 16:30] LABS: Glucose,Whole Blood 126 mg/dL (75-99)
[2021-01-10] MEDS: ACETAMINOPHEN IV (For NPO) 1,000 MG in EMPTY BAG 1 BAG IVPB SCH ×2 (17:36→23:28)
[2021-01-10 18:02] LABS: Glucose,Whole Blood 118 mg/dL (75-99)
[2021-01-10 18:52] LABS: Basophils % (A) 0 %; Eosinophils % (A) 0 %; HCT 20.5 % (39.0-53.0); Lymphocytes # (A) 0.8 k/uL (1.0-4.8); Lymphocytes % (A) 5 %; MCH 30.5 pg (25.0-35.0); MCHC 33.4 g/dL (31.0-37.0); MCV 91.4 fL (80.0-100.0); Mean Platelet Volume 9.6; Monocytes # (A) 1.2 k/uL (0-1.0); Monocytes % (A) 8 %; Neutrophils # (A) 13.2 k/uL (1.3-7.7); Neutrophils % (A) 86 %; Platelet Count 137 k/uL (150-450); RBC 2.24 m/uL (4.30-5.90); RDW 15.4 % (11.5-15.5); WBC 15.4 k/uL (3.8-10.6)
--- NOTE | 2021-01-10 18:59 | PN ---
PROGRESS NOTE HISTORY: Milo is a 65-year-old gentleman with significant distal left main and LAD and circumflex coronary artery disease, who underwent bypass surgery today. I am seeing the patient in the postop setting. The patient is intubated on vent and is hemodynamically stable. Remains in sinus rhythm. EXAM: Blood pressure is normal. Heart rate is around 60 beats per minute. Chest exam reveals diminished air entry at the bases. Heart exam reveals first and second heart sounds. No gallop. Abdomen is soft. Exam of extremities did not reveal any edema. Peripheral pulses are felt. ASSESSMENT: Severe left main coronary artery stenosis, status post bypass surgery. PLAN: Continue with routine postop care. Resume aspirin, beta blockers, Plavix, statins. MMODL / IJN: [id number] /
[2021-01-10 19:01] LABS: Glucose,Whole Blood 129 mg/dL (75-99)
[2021-01-10 19:18] LABS: HGB 6.8 gm/dL (13.0-17.5)
[2021-01-10 19:37] LABS: ABG Base Excess -2.3 mmol/L; ABG HCO3 24 mmol/L (21-25); ABG Oxygen Saturation 98.8 % (94-97); ABG PCO2 44 mmHg (35-45); ABG PH 7.34 (7.35-7.45); ABG PO2 158 mmHg (83-108); ABG TCO2 25 mmol/L (19-24); Allen Test Performed? Yes
[2021-01-10] MEDS ORDERED: MORPHINE SULFATE 2 MG/ML SYRINGE IVP PRN (19:50)
[2021-01-10 19:55] LABS: Glucose,Whole Blood 127 mg/dL (75-99)
[2021-01-10] MEDS: INSULIN REGULAR 100 UNIT in SODIUM CHLORIDE 0.9% 100 ML IV SCH (20:05)
[2021-01-10 21:11] LABS: Glucose,Whole Blood 114 mg/dL (75-99)
[2021-01-10 22:04] LABS: Glucose,Whole Blood 113 mg/dL (75-99)
[2021-01-10 23:00] LABS: Glucose,Whole Blood 121 mg/dL (75-99)
[2021-01-10] MEDS: MORPHINE SULFATE 2 MG/ML SYRINGE IVP PRN ×2 (23:35→23:40)
[2021-01-10 23:58] LABS: Glucose,Whole Blood 116 mg/dL (75-99)
[2021-01-11] MEDS ORDERED: HYDROcodone/APAP 5-325MG 1 EACH TAB PO PRN (00:20)
[2021-01-11 00:30] LABS: ABG Base Excess 1.3 mmol/L; ABG HCO3 26 mmol/L (21-25); ABG Oxygen Saturation 98.9 % (94-97); ABG PCO2 44 mmHg (35-45); ABG PH 7.38 (7.35-7.45); ABG PO2 126 mmHg (83-108); ABG TCO2 28 mmol/L (19-24); Allen Test Performed? Yes
[2021-01-11 00:54] LABS: Glucose,Whole Blood 113 mg/dL (75-99)
[2021-01-11] MEDS: MORPHINE SULFATE 2 MG/ML SYRINGE IVP PRN ×2 (02:01→05:21)
[2021-01-11 02:21] LABS: Glucose,Whole Blood 115 mg/dL (75-99)
[2021-01-11 03:14] LABS: Glucose,Whole Blood 117 mg/dL (75-99)
[2021-01-11] MEDS: DEXMEDETOMIDINE/0.9% NACL(PMX) 400 MCG in EMPTY BAG 1 BAG IV SCH (03:20)
[2021-01-11 04:12] LABS: Glucose,Whole Blood 118 mg/dL (75-99)
[2021-01-11 04:14] LABS: Basophils % (A) 0 %; Eosinophils # (A) 0.2 k/uL (0-0.7); Eosinophils % (A) 1 %; HCT 20.9 % (39.0-53.0); Lymphocytes # (A) 1.1 k/uL (1.0-4.8); Lymphocytes % (A) 8 %; MCH 30.1 pg (25.0-35.0); MCV 91.2 fL (80.0-100.0); Mean Platelet Volume 6.9; Monocytes # (A) 1.1 k/uL (0-1.0); Monocytes % (A) 9 %; Neutrophils # (A) 10.3 k/uL (1.3-7.7); Neutrophils % (A) 81 %; Platelet Count 169 k/uL (150-450); RDW 15.6 % (11.5-15.5); WBC 12.8 k/uL (3.8-10.6)
[2021-01-11] MEDS: HYDROcodone/APAP 5-325MG 1 EACH TAB PO PRN ×5 (04:19→21:06)
[2021-01-11 04:36] LABS: HGB 6.9 gm/dL (13.0-17.5)
[2021-01-11 05:23] LABS: Ionized Calcium 4.6 mg/dL (4.5-5.3)
[2021-01-11 05:38] LABS: Albumin 2.7 g/dL (3.5-5.0); Calcium 7.7 mg/dL (8.4-10.2); Magnesium 2.5 mg/dL (1.6-2.3); Potassium 3.8 mmol/L (3.5-5.1); Total Bilirubin 0.3 mg/dL (0.2-1.3)
[2021-01-11 06:06] LABS: Glucose,Whole Blood 127 mg/dL (75-99)
--- NOTE | 2021-01-11 07:11 | P.PN ---
Subjective Progress Note Date: 01/11/21 Principal diagnosis: Acute coronary syndrome This is a 65-year-old gentleman who was admitted to the hospital with chest discomfort and ruled in for acute coronary syndrome. He underwent a heart catheterization and was found to have severe triple-vessel CAD. He underwent after that coronary artery that is grafting 2 with LAUREANO to LAD and radial artery to PDA. This is postoperative patient #1. The patient overall seems to be stable beside being on a small dose of dopamine. He is also on calcium channel emerald IV for the radial graft which is going to be transitioned into by mouth calcium channel emerald later on today. He is anemic with a hemoglobin of 7 and he is in process of receiving one unit of packed RBC. Otherwise he is on dual antiplatelet therapy. The chest x-ray was reviewed. The blood work was reviewed as well. Objective - Vital Signs Vital signs: Vital Signs Temp 97.5 F L 01/11/21 06:57 Pulse 66 01/11/21 06:57 Resp 18 01/11/21 06:57 BP 80/39 01/11/21 06:57 Pulse Ox 93 L 01/11/21 06:57 Intake & Output 01/10/21 01/11/21 01/11/21 18:59 06:59 18:59 Intake Total 2447.006 970.506 Output Total 2530 2026 Balance -82.994 -1055.494 Weight 99 kg Intake: IV 1659 596 0.9NS Cardiac Output 60 110 0.9NS pressure bag 45 36 Albumin Human 25% 50 ml 1500 50 In Empty Bag 1 bag @ 100 mls/hr IVPB ONCE ONE Rx#: [id number] Lactated Ringers 1,000 ml 400 @ 50 mls/hr IV .Q20H [facility] Rx#:[id number] Intake, IV Titration 788.006 374.506 Amount ACETAMINOPHEN IV (For NPO 100 ) 1,000 mg In Empty Bag 1 bag @ 400 mls/hr IVPB Q6HR [facility] Rx#:[id number] Calcium Gluconate 2 gm In 100 Sodium Chloride 0.9% 100 ml @ 100 mls/hr IVPB ONCE ONE Rx#:[id number] DOPamine DRIP 800 mg In 1.86 Dextrose/Water 1 250ml. bag @ 2 MCG/KG/MIN 3.488 mls/hr IV .Q24H [facility] Rx#: [id number] Dexmedetomidine/0.9% NaCl 3.177 166.975 (Pmx) 400 mcg In Empty Bag 1 bag @ Titrate IV . Q0M [facility] Rx#:[id number] Insulin Regular 100 unit 2.104 In Sodium Chloride 0.9% 100 ml @ Per Protocol IV .Q0M [facility] Rx#:[id number] Lactated Ringers 1,000 ml 250 50 @ 50 mls/hr IV .Q20H [facility] Rx#:[id number] Magnesium Sulfate-D5w Pmx 100 1 gm In Dextrose/Water 1 100ml.bag @ 100 mls/hr IVPB ONCE ONE Rx#: [id number] Potassium Chloride 20 meq 200 In Water For Injection 1 100ml.bag @ 50 mls/hr IVPB Q2H [facility] Rx#: [id number] propofoL 1,000 mg In 32.969 155.427 Empty Bag 1 bag @ Titrate IV .Q0M [facility] Rx#: [id number] Oral 0 Blood Product 0 Rc Pheresis As-3 Unit 0 [id number] Output: Chest Tube Drainage 690 666 Left Pleural Chest Tube 130 176 Mediastinal X 2 560 490 Drainage 120 50 Left Arm 120 50 Urine 720 1310 Estimated Blood Loss 1000 Other: Voiding Method Indwelling Catheter Indwelling Catheter ABP, PAP, CO, CI - Last Documented Arterial Blood Pressure 95/50 Pulmonary Artery Pressure 74/13 Cardiac Output 4.7 Cardiac Index 2.2 - Constitutional General appearance: Present: no acute distress - Respiratory Respiratory: bilateral: diminished - Cardiovascular Rhythm: regular Heart sounds: normal: S1, S2 - Labs CBC & Chem 7: 01/11/21 04:00 01/11/21 04:00 Labs: Abnormal Lab Results - Last 24 Hours (Table) 01/09/21 01/10/21 01/10/21 Range/Units 09:56 08:43 10:08 WBC (3.8-10.6) k/uL RBC (4.30-5.90) m/uL Hgb (13.0-17.5) gm/dL Hct (39.0-53.0) % RDW (11.5-15.5) % Plt Count (150-450) k/uL Neutrophils # (1.3-7.7) k/uL Lymphocytes # (1.0-4.8) k/uL Monocytes # (0-1.0) k/uL PT (9.0-12.0) sec INR (<1.2) Fibrinogen (200-500) mg/dL ABG pH 7.46 H (7.35-7.45) ABG pO2 81 L 137 H (83-108) mmHg ABG HCO3 28 H 27 H (21-25) mmol/L ABG Total CO2 30 H 28 H (19-24) mmol/L ABG O2 Saturation 97.2 H 99.5 H (94-97) % ABG Hematocrit 32 L (34.0-46.0) % ABG Ionized Calcium 4.3 L 4.2 L (4.5-5.3) mg/dL ABG Glucose 104 H 127 H (75-99) mg/dL ABG Lactic Acid (0.5-1.6) mmol/L Hemoglobin 11.3 L 10.4 L (13.0-17.5) gm/dL Sodium (137-145) mmol/L BUN (9-20) mg/dL Glucose (74-99) mg/dL POC Glucose (mg/dL) (75-99) mg/dL Calcium (8.4-10.2) mg/dL Ionized Calcium Alice (4.5-5.3) mg/dL Magnesium (1.6-2.3) mg/dL AST (17-59) U/L ALT (4-49) U/L Alkaline Phosphatase (38-126) U/L Total Protein (6.3-8.2) g/dL Albumin (3.5-5.0) g/dL Arterial Blood Glucose 104 H 127 H (75-99) mg/dL Crossmatch See Detail 01/10/21 01/10/21 01/10/21 Range/Units 10:45 11:08 12:50 WBC 14.2 H (3.8-10.6) k/uL RBC 3.03 L (4.30-5.90) m/uL Hgb 9.1 L D (13.0-17.5) gm/dL Hct 27.8 L (39.0-53.0) % RDW 15.8 H (11.5-15.5) % Plt Count 138 L (150-450) k/uL Neutrophils # 12.8 H (1.3-7.7) k/uL Lymphocytes # 0.6 L (1.0-4.8) k/uL Monocytes # (0-1.0) k/uL PT (9.0-12.0) sec INR (<1.2) Fibrinogen (200-500) mg/dL ABG pH 7.46 H (7.35-7.45) ABG pO2 136 H 155 H (83-108) mmHg ABG HCO3 27 H 27 H (21-25) mmol/L ABG Total CO2 28 H 28 H (19-24) mmol/L ABG O2 Saturation 99.6 H 99.9 H (94-97) % ABG Hematocrit 30 L 30 L (34.0-46.0) % ABG Ionized Calcium 4.2 L 4.2 L (4.5-5.3) mg/dL ABG Glucose 125 H 129 H (75-99) mg/dL ABG Lactic Acid 1.9 H 2.1 H (0.5-1.6) mmol/L Hemoglobin 9.8 L 9.7 L (13.0-17.5) gm/dL Sodium (137-145) mmol/L BUN (9-20) mg/dL Glucose (74-99) mg/dL POC Glucose (mg/dL) (75-99) mg/dL Calcium (8.4-10.2) mg/dL Ionized Calcium Alice (4.5-5.3) mg/dL Magnesium (1.6-2.3) mg/dL AST (17-59) U/L ALT (4-49) U/L Alkaline Phosphatase (38-126) U/L Total Protein (6.3-8.2) g/dL Albumin (3.5-5.0) g/dL Arterial Blood Glucose 125 H 129 H (75-99) mg/dL Crossmatch 01/10/21 01/10/21 01/10/21 Range/Units 12:50 12:50 12:54 WBC (3.8-10.6) k/uL RBC (4.30-5.90) m/uL Hgb (13.0-17.5) gm/dL Hct (39.0-53.0) % RDW (11.5-15.5) % Plt Count (150-450) k/uL Neutrophils # (1.3-7.7) k/uL Lymphocytes # (1.0-4.8) k/uL Monocytes # (0-1.0) k/uL PT 13.3 H (9.0-12.0) sec INR 1.3 H (<1.2) Fibrinogen (200-500) mg/dL ABG pH (7.35-7.45) ABG pO2 (83-108) mmHg ABG HCO3 (21-25) mmol/L ABG Total CO2 (19-24) mmol/L ABG O2 Saturation (94-97) % ABG Hematocrit (34.0-46.0) % ABG Ionized Calcium (4.5-5.3) mg/dL ABG Glucose (75-99) mg/dL ABG Lactic Acid (0.5-1.6) mmol/L Hemoglobin (13.0-17.5) gm/dL Sodium 135 L (137-145) mmol/L BUN 39 H (9-20) mg/dL Glucose 120 H (74-99) mg/dL POC Glucose (mg/dL) 124 H (75-99) mg/dL Calcium 7.2 L (8.4-10.2) mg/dL Ionized Calcium Alice 4.3 L (4.5-5.3) mg/dL Magnesium (1.6-2.3) mg/dL AST 103 H (17-59) U/L ALT 54 H (4-49) U/L Alkaline Phosphatase (38-126) U/L Total Protein 4.0 L (6.3-8.2) g/dL Albumin 2.6 L (3.5-5.0) g/dL Arterial Blood Glucose (75-99) mg/dL Crossmatch 01/10/21 01/10/21 01/10/21 Range/Units 13:35 14:32 14:47 WBC (3.8-10.6) k/uL RBC (4.30-5.90) m/uL Hgb (13.0-17.5) gm/dL Hct (39.0-53.0) % RDW (11.5-15.5) % Plt Count (150-450) k/uL Neutrophils # (1.3-7.7) k/uL Lymphocytes # (1.0-4.8) k/uL Monocytes # (0-1.0) k/uL PT (9.0-12.0) sec INR (<1.2) Fibrinogen 115 L (200-500) mg/dL ABG pH (7.35-7.45) ABG pO2 335 H (83-108) mmHg ABG HCO3 27 H (21-25) mmol/L ABG Total CO2 28 H (19-24) mmol/L ABG O2 Saturation 99.4 H (94-97) % ABG Hematocrit (34.0-46.0) % ABG Ionized Calcium (4.5-5.3) mg/dL ABG Glucose (75-99) mg/dL ABG Lactic Acid (0.5-1.6) mmol/L Hemoglobin (13.0-17.5) gm/dL Sodium (137-145) mmol/L BUN (9-20) mg/dL Glucose (74-99) mg/dL POC Glucose (mg/dL) 125 H (75-99) mg/dL Calcium (8.4-10.2) mg/dL Ionized Calcium Alice (4.5-5.3) mg/dL Magnesium (1.6-2.3) mg/dL AST (17-59) U/L ALT (4-49) U/L Alkaline Phosphatase (38-126) U/L Total Protein (6.3-8.2) g/dL Albumin (3.5-5.0) g/dL Arterial Blood Glucose (75-99) mg/dL Crossmatch 01/10/21 01/10/21 01/10/21 Range/Units 15:28 16:29 18:00 WBC 26.4 H (3.8-10.6) k/uL RBC 2.50 L (4.30-5.90) m/uL Hgb 7.4 L D (13.0-17.5) gm/dL Hct 23.1 L (39.0-53.0) % RDW 15.7 H (11.5-15.5) % Plt Count (150-450) k/uL Neutrophils # 22.6 H (1.3-7.7) k/uL Lymphocytes # (1.0-4.8) k/uL Monocytes # 1.9 H (0-1.0) k/uL PT (9.0-12.0) sec INR (<1.2) Fibrinogen (200-500) mg/dL ABG pH (7.35-7.45) ABG pO2 (83-108) mmHg ABG HCO3 (21-25) mmol/L ABG Total CO2 (19-24) mmol/L ABG O2 Saturation (94-97) % ABG Hematocrit (34.0-46.0) % ABG Ionized Calcium (4.5-5.3) mg/dL ABG Glucose (75-99) mg/dL ABG Lactic Acid (0.5-1.6) mmol/L Hemoglobin (13.0-17.5) gm/dL Sodium (137-145) mmol/L BUN (9-20) mg/dL Glucose (74-99) mg/dL POC Glucose (mg/dL) 126 H 118 H (75-99) mg/dL Calcium (8.4-10.2) mg/dL Ionized Calcium Alice (4.5-5.3) mg/dL Magnesium (1.6-2.3) mg/dL AST (17-59) U/L ALT (4-49) U/L Alkaline Phosphatase (38-126) U/L Total Protein (6.3-8.2) g/dL Albumin (3.5-5.0) g/dL Arterial Blood Glucose (75-99) mg/dL Crossmatch 01/10/21 01/10/21 01/10/21 Range/Units 18:45 19:00 19:35 WBC 15.4 H (3.8-10.6) k/uL RBC 2.24 L (4.30-5.90) m/uL Hgb 6.8 L* (13.0-17.5) gm/dL Hct 20.5 L (39.0-53.0) % RDW (11.5-15.5) % Plt Count 137 L (150-450) k/uL Neutrophils # 13.2 H (1.3-7.7) k/uL Lymphocytes # 0.8 L (1.0-4.8) k/uL Monocytes # 1.2 H (0-1.0) k/uL PT (9.0-12.0) sec INR (<1.2) Fibrinogen (200-500) mg/dL ABG pH 7.34 L (7.35-7.45) ABG pO2 158 H (83-108) mmHg ABG HCO3 (21-25) mmol/L ABG Total CO2 25 H (19-24) mmol/L ABG O2 Saturation 98.8 H (94-97) % ABG Hematocrit (34.0-46.0) % ABG Ionized Calcium (4.5-5.3) mg/dL ABG Glucose (75-99) mg/dL ABG Lactic Acid (0.5-1.6) mmol/L Hemoglobin (13.0-17.5) gm/dL Sodium (137-145) mmol/L BUN (9-20) mg/dL Glucose (74-99) mg/dL POC Glucose (mg/dL) 129 H (75-99) mg/dL Calcium (8.4-10.2) mg/dL Ionized Calcium Alice (4.5-5.3) mg/dL Magnesium (1.6-2.3) mg/dL AST (17-59) U/L ALT (4-49) U/L Alkaline Phosphatase (38-126) U/L Total Protein (6.3-8.2) g/dL Albumin (3.5-5.0) g/dL Arterial Blood Glucose (75-99) mg/dL Crossmatch 01/10/21 01/10/21 01/10/21 Range/Units 19:54 21:09 22:01 WBC (3.8-10.6) k/uL RBC (4.30-5.90) m/uL Hgb (13.0-17.5) gm/dL Hct (39.0-53.0) % RDW (11.5-15.5) % Plt Count (150-450) k/uL Neutrophils # (1.3-7.7) k/uL Lymphocytes # (1.0-4.8) k/uL Monocytes # (0-1.0) k/uL PT (9.0-12.0) sec INR (<1.2) Fibrinogen (200-500) mg/dL ABG pH (7.35-7.45) ABG pO2 (83-108) mmHg ABG HCO3 (21-25) mmol/L ABG Total CO2 (19-24) mmol/L ABG O2 Saturation (94-97) % ABG Hematocrit (34.0-46.0) % ABG Ionized Calcium (4.5-5.3) mg/dL ABG Glucose (75-99) mg/dL ABG Lactic Acid (0.5-1.6) mmol/L Hemoglobin (13.0-17.5) gm/dL Sodium (137-145) mmol/L BUN (9-20) mg/dL Glucose (74-99) mg/dL POC Glucose (mg/dL) 127 H 114 H 113 H (75-99) mg/dL Calcium (8.4-10.2) mg/dL Ionized Calcium Alice (4.5-5.3) mg/dL Magnesium (1.6-2.3) mg/dL AST (17-59) U/L ALT (4-49) U/L Alkaline Phosphatase (38-126) U/L Total Protein (6.3-8.2) g/dL Albumin (3.5-5.0) g/dL Arterial Blood Glucose (75-99) mg/dL Crossmatch 01/10/21 01/10/21 01/11/21 Range/Units 22:58 23:51 00:27 WBC (3.8-10.6) k/uL RBC (4.30-5.90) m/uL Hgb (13.0-17.5) gm/dL Hct (39.0-53.0) % RDW (11.5-15.5) % Plt Count (150-450) k/uL Neutrophils # (1.3-7.7) k/uL Lymphocytes # (1.0-4.8) k/uL Monocytes # (0-1.0) k/uL PT (9.0-12.0) sec INR (<1.2) Fibrinogen (200-500) mg/dL ABG pH (7.35-7.45) ABG pO2 126 H (83-108) mmHg ABG HCO3 26 H (21-25) mmol/L ABG Total CO2 28 H (19-24) mmol/L ABG O2 Saturation 98.9 H (94-97) % ABG Hematocrit (34.0-46.0) % ABG Ionized Calcium (4.5-5.3) mg/dL ABG Glucose (75-99) mg/dL ABG Lactic Acid (0.5-1.6) mmol/L Hemoglobin (13.0-17.5) gm/dL Sodium (137-145) mmol/L BUN (9-20) mg/dL Glucose (74-99) mg/dL POC Glucose (mg/dL) 121 H 116 H (75-99) mg/dL Calcium (8.4-10.2) mg/dL Ionized Calcium Alice (4.5-5.3) mg/dL Magnesium (1.6-2.3) mg/dL AST (17-59) U/L ALT (4-49) U/L Alkaline Phosphatase (38-126) U/L Total Protein (6.3-8.2) g/dL Albumin (3.5-5.0) g/dL Arterial Blood Glucose (75-99) mg/dL Crossmatch 01/11/21 01/11/21 01/11/21 Range/Units 00:52 02:09 02:58 WBC (3.8-10.6) k/uL RBC (4.30-5.90) m/uL Hgb (13.0-17.5) gm/dL Hct (39.0-53.0) % RDW (11.5-15.5) % Plt Count (150-450) k/uL Neutrophils # (1.3-7.7) k/uL Lymphocytes # (1.0-4.8) k/uL Monocytes # (0-1.0) k/uL PT (9.0-12.0) sec INR (<1.2) Fibrinogen (200-500) mg/dL ABG pH (7.35-7.45) ABG pO2 (83-108) mmHg ABG HCO3 (21-25) mmol/L ABG Total CO2 (19-24) mmol/L ABG O2 Saturation (94-97) % ABG Hematocrit (34.0-46.0) % ABG Ionized Calcium (4.5-5.3) mg/dL ABG Glucose (75-99) mg/dL ABG Lactic Acid (0.5-1.6) mmol/L Hemoglobin (13.0-17.5) gm/dL Sodium (137-145) mmol/L BUN (9-20) mg/dL Glucose (74-99) mg/dL POC Glucose (mg/dL) 113 H 115 H 117 H (75-99) mg/dL Calcium (8.4-10.2) mg/dL Ionized Calcium Alice (4.5-5.3) mg/dL Magnesium (1.6-2.3) mg/dL AST (17-59) U/L ALT (4-49) U/L Alkaline Phosphatase (38-126) U/L Total Protein (6.3-8.2) g/dL Albumin (3.5-5.0) g/dL Arterial Blood Glucose (75-99) mg/dL Crossmatch 01/11/21 01/11/21 01/11/21 Range/Units 04:00 04:00 04:00 WBC 12.8 H (3.8-10.6) k/uL RBC 2.30 L (4.30-5.90) m/uL Hgb 6.9 L* (13.0-17.5) gm/dL Hct 20.9 L (39.0-53.0) % RDW 15.6 H (11.5-15.5) % Plt Count (150-450) k/uL Neutrophils # 10.3 H (1.3-7.7) k/uL Lymphocytes # (1.0-4.8) k/uL Monocytes # 1.1 H (0-1.0) k/uL PT (9.0-12.0) sec INR (<1.2) Fibrinogen (200-500) mg/dL ABG pH (7.35-7.45) ABG pO2 (83-108) mmHg ABG HCO3 (21-25) mmol/L ABG Total CO2 (19-24) mmol/L ABG O2 Saturation (94-97) % ABG Hematocrit (34.0-46.0) % ABG Ionized Calcium (4.5-5.3) mg/dL ABG Glucose (75-99) mg/dL ABG Lactic Acid (0.5-1.6) mmol/L Hemoglobin (13.0-17.5) gm/dL Sodium 135 L (137-145) mmol/L BUN 34 H (9-20) mg/dL Glucose 109 H (74-99) mg/dL POC Glucose (mg/dL) 118 H (75-99) mg/dL Calcium 7.7 L (8.4-10.2) mg/dL Ionized Calcium Alice (4.5-5.3) mg/dL Magnesium 2.5 H (1.6-2.3) mg/dL AST (17-59) U/L ALT (4-49) U/L Alkaline Phosphatase 37 L (38-126) U/L Total Protein 4.0 L (6.3-8.2) g/dL Albumin 2.7 L (3.5-5.0) g/dL Arterial Blood Glucose (75-99) mg/dL Crossmatch 01/11/21 Range/Units 06:04 WBC (3.8-10.6) k/uL RBC (4.30-5.90) m/uL Hgb (13.0-17.5) gm/dL Hct (39.0-53.0) % RDW (11.5-15.5) % Plt Count (150-450) k/uL Neutrophils # (1.3-7.7) k/uL Lymphocytes # (1.0-4.8) k/uL Monocytes # (0-1.0) k/uL PT (9.0-12.0) sec INR (<1.2) Fibrinogen (200-500) mg/dL ABG pH (7.35-7.45) ABG pO2 (83-108) mmHg ABG HCO3 (21-25) mmol/L ABG Total CO2 (19-24) mmol/L ABG O2 Saturation (94-97) % ABG Hematocrit (34.0-46.0) % ABG Ionized Calcium (4.5-5.3) mg/dL ABG Glucose (75-99) mg/dL ABG Lactic Acid (0.5-1.6) mmol/L Hemoglobin (13.0-17.5) gm/dL Sodium (137-145) mmol/L BUN (9-20) mg/dL Glucose (74-99) mg/dL POC Glucose (mg/dL) 127 H (75-99) mg/dL Calcium (8.4-10.2) mg/dL Ionized Calcium Alice (4.5-5.3) mg/dL Magnesium (1.6-2.3) mg/dL AST (17-59) U/L ALT (4-49) U/L Alkaline Phosphatase (38-126) U/L Total Protein (6.3-8.2) g/dL Albumin (3.5-5.0) g/dL Arterial Blood Glucose (75-99) mg/dL Crossmatch Assessment and Plan Assessment: Assessment #1 coronary artery bypass grafting 2 and this is the #1 after surgery #2 severe triple-vessel CAD #3 blood loss anemia #4 multiple comorbid conditions Plan #1 continue the current medical regimen #2 transition to calcium channel emerald by mouth #3 try to wean the patient from dopamine #4 continue dual antiplatelet therapy #5 blood transfusion
[2021-01-11 07:19] LABS: Glucose,Whole Blood 123 mg/dL (75-99)
[2021-01-11] MEDS: IPRATROPIUM-ALBUTEROL 3 ML NEB INHALATION SCH ×4 (07:27→21:15)
[2021-01-11] MEDS: FORMOTEROL FUMARATE 20 MCG/2 ML NEBU INHALATION SCH ×2 (07:27→21:15)
[2021-01-11] MEDS: BUDESONIDE 1 MG/2 ML NEBU INHALATION SCH ×2 (07:27→21:15)
[2021-01-11] MEDS ORDERED: POTASSIUM CHLORIDE ER 20 MEQ TAB.ER PO SCH ×2 (08:00→19:00)
[2021-01-11 08:20] LABS: Glucose,Whole Blood 115 mg/dL (75-99)
--- NOTE | 2021-01-11 08:30 | XR ---
EXAMINATION TYPE: XR chest 1V portable DATE OF EXAM: 01/11/2021 Comparison: 01/10/2021 Clinical History: 65-year-old male Post Operative Cardiac Surgery Findings: Heart remains enlarged. Interstitial densities are increasing. Median sternotomy wires and post-CABG clips. Retrocardiac and left basilar opacities increasing. Right IJ Kings[place]-Leanne catheter with tip in th e proximal right main pulmonary artery. Mediastinal and left pleural drains are present. Impression: 1. Cardiomegaly with developing interstitial changes, correlate for developing pulmonary vascular con gestion. 2. Increasing left basilar and retrocardiac opacity, likely atelectasis.
[2021-01-11] MEDS ORDERED: METOPROLOL TARTRATE 12.5 MG TAB PO SCH ×2 (09:00→21:00)
[2021-01-11] MEDS ORDERED: PANTOPRAZOLE 40 MG/10 ML VIAL IVP SCH (09:00)
[2021-01-11] MEDS ORDERED: bisacodyL 10 MG SUPP RECTAL PRN (09:00)
[2021-01-11] MEDS ORDERED: MAGNESIUM HYDROXIDE 2,400 MG/10 ML CUP PO PRN (09:00)
[2021-01-11] MEDS: FERROUS SULFATE 325 MG TAB PO SCH (09:04)
[2021-01-11] MEDS: HEPARIN SODIUM,PORCINE/PF 5,000 UNIT/0.5 ML SYRINGE SQ SCH ×3 (09:04→23:35)
[2021-01-11] MEDS: CLOPIDOGREL 75 MG TAB PO SCH (09:05)
[2021-01-11] MEDS: MONTELUKAST 10 MG TAB PO SCH (09:05)
[2021-01-11] MEDS: TAMSULOSIN 0.4 MG CAP.ER.24H PO SCH (09:05)
[2021-01-11] MEDS: DULoxetine HCL 60 MG CAPSULE.DR PO SCH (09:05)
[2021-01-11] MEDS: ASPIRIN 325 MG TAB PO SCH (09:06)
[2021-01-11] MEDS: allopurinoL 300 MG TAB PO SCH (09:06)
[2021-01-11] MEDS: buPROPion XL 300 MG TAB.ER.24H PO SCH (09:06)
[2021-01-11] MEDS: busPIRone HCl 5 MG TAB PO SCH ×2 (09:06→21:05)
[2021-01-11] MEDS: ATORVASTATIN 40 MG TAB PO SCH (09:06)
[2021-01-11] MEDS: FINASTERIDE 5 MG TAB PO SCH (09:06)
[2021-01-11] MEDS: LACTATED RINGERS 1,000 ML IV SCH (09:07)
--- NOTE | 2021-01-11 09:46 | P.PN ---
Subjective Progress Note Date: 01/10/21 Principal diagnosis: Acute ID with elevated troponin Significant coronary artery disease involving left main COPD with acute exacerbation End-stage lung disease oxygen-dependent intermittent prednisone dependent 65-year-old male with end-stage severe COPD chronic history of smoking and nicotine use also has history of recurrent pneumonia and states intermittent prednisone-dependent, oxygen dependent COPDpatient was recently hospitalized for left-sided pneumonia tracheobronchitis had a bronchial lavage and washing which she tolerated well discharged in stable condition 2 days prior to hospitalization demented and chest pain, patient admitted into the hospital, recent echo revealed ejection fraction of 55%with trace MR and TR, patient was noted to have elevated troponins underwent cardiac cath angiogram found to have left main disease, patient is being eval for bypass surgery, patient has ongoing shortness of breath sputum production and wheezing has been on broad-spectrum antibiotics cardiothoracic surgery is evaluating Objective - Vital Signs Vital signs: Vital Signs Temp 97.1 F L 01/10/21 06:20 Pulse 58 L 01/10/21 07:27 Resp 18 01/10/21 06:20 BP 137/81 01/10/21 06:20 Pulse Ox 94 L 01/10/21 06:20 Intake & Output 01/09/21 01/10/21 01/10/21 18:59 06:59 18:59 Intake Total 1570 130.565 0 Output Total 400 Balance 1570 -269.435 0 Weight 93 kg Intake: IV 20 Invasive Line 5 20 Intake, IV Titration 250 110.565 Amount Heparin Sod,Pork in 0.45% 250 110.565 NaCl 25,000 unit In 0.45 % NaCl 1 250ml.bag @ 11. 111 UNITS/KG/HR 10 mls/hr IV .Q24H [facility] Rx#: [id number] Oral 1320 0 Output: Urine 400 Other: Voiding Method Urinal Urinal - Exam - Constitutional General appearance: Present: average body habitus, cooperative, no acute distress - EENT Eyes: Present: anicteric sclerae, EOMI, PERRLA, normal appearance ENT: Present: hearing grossly normal, normal oropharynx Ears: bilateral: normal - Neck Neck: Present: normal ROM. Absent: lymphadenopathy, rigidity, thyromegaly Carotids: negative: bruit present Thyroid: bilateral: normal size, negative: enlarged, nodule - Respiratory Respiratory: bilateral: CTA, negative: rales, rhonchi, wheezing - Cardiovascular Rhythm: regular Heart sounds: normal: S1, S2 Abnormal Heart Sounds: Absent: systolic murmur, diastolic murmur - Gastrointestinal General gastrointestinal: Present: normal bowel sounds, soft. Absent: distended, organomegaly, tenderness - Genitourinary Genitourinary Comment(s): deferred - Integumentary Integumentary: Present: normal turgor. Absent: jaundiced, rash, ulcer - Neurologic Neurologic: Present: CNII-XII intact. Absent: focal deficits - Musculoskeletal Musculoskeletal: Present: gait normal, strength equal bilaterally - Psychiatric Psychiatric: Present: A&O x's 3, appropriate affect, intact judgment & insight - Labs CBC & Chem 7: 01/11/21 04:00 01/11/21 04:00 Labs: Abnormal Lab Results - Last 24 Hours (Table) 01/09/21 01/09/21 01/09/21 Range/Units 09:56 09:56 09:56 WBC 13.2 H (3.8-10.6) k/uL RBC 4.02 L (4.30-5.90) m/uL Hgb 12.5 L (13.0-17.5) gm/dL Hct 36.8 L (39.0-53.0) % Neutrophils # 11.8 H (1.3-7.7) k/uL Lymphocytes # 0.7 L (1.0-4.8) k/uL APTT 55.1 H (22.0-30.0) sec Sodium (137-145) mmol/L Carbon Dioxide (22-30) mmol/L BUN (9-20) mg/dL Glucose (74-99) mg/dL POC Glucose (mg/dL) (75-99) mg/dL Total Protein (6.3-8.2) g/dL Albumin (3.5-5.0) g/dL Crossmatch See Detail 01/09/21 01/09/21 01/09/21 Range/Units 09:56 11:50 16:42 WBC (3.8-10.6) k/uL RBC (4.30-5.90) m/uL Hgb (13.0-17.5) gm/dL Hct (39.0-53.0) % Neutrophils # (1.3-7.7) k/uL Lymphocytes # (1.0-4.8) k/uL APTT (22.0-30.0) sec Sodium 136 L (137-145) mmol/L Carbon Dioxide 31 H (22-30) mmol/L BUN 36 H (9-20) mg/dL Glucose 132 H (74-99) mg/dL POC Glucose (mg/dL) 116 H 127 H (75-99) mg/dL Total Protein 5.3 L (6.3-8.2) g/dL Albumin 3.4 L (3.5-5.0) g/dL Crossmatch 01/09/21 01/10/21 Range/Units 20:05 05:10 WBC (3.8-10.6) k/uL RBC (4.30-5.90) m/uL Hgb (13.0-17.5) gm/dL Hct (39.0-53.0) % Neutrophils # (1.3-7.7) k/uL Lymphocytes # (1.0-4.8) k/uL APTT (22.0-30.0) sec Sodium (137-145) mmol/L Carbon Dioxide (22-30) mmol/L BUN (9-20) mg/dL Glucose (74-99) mg/dL POC Glucose (mg/dL) 169 H 130 H (75-99) mg/dL Total Protein (6.3-8.2) g/dL Albumin (3.5-5.0) g/dL Crossmatch Assessment and Plan Assessment: 1. Significant coronary artery disease involving left main - Cardiothoracic surgery is following and patient is scheduled for coronary artery bypass surgery later on today 2. Acute ID with elevated troponin; status post cardiac catheterization which revealed significant coronary artery disease involving left main; patient scheduled for CABG today 3. End-stage lung disease oxygen-dependent intermittent prednisone dependent/acute exacerbation - Pulmonary is following and recommending to continue with bronchodilator and steroid nebulizer therapy, continue with current antibiotics and incentive spirometry - Currently on IV steroids with plans to taper once stable 4. Ongoing chest pain likely related to angina and coronary artery disease 5. Sleep disorder breathing and sleep apnea status post UPPP patient refused the CPAP machine multiple times in the past 6. History of intermittent atrial flutter; patient is currently on IV amiodarone infusion; continue with aspirin 7. Hyperlipidemia; Lipitor 40 mg by mouth daily at bedtime 8. Depression/anxiety; continue with current dose of Wellbutrin and BuSpar DVT prophylaxis; SCDs/subcu heparin CODE STATUS; full code
[2021-01-11 10:05] LABS: Glucose,Whole Blood 115 mg/dL (75-99)
--- NOTE | 2021-01-11 10:49 | P.PN ---
Subjective Progress Note Date: 01/11/21 Principal diagnosis: significant coronary artery disease involving left main Acute CA with elevated troponin End-stage lung disease oxygen-dependent intermittent prednisone dependent COPD with acute exacerbation Recent left-sided pneumonia Sleep disorder breathing and sleep apnea status post UPPP patient refused the CPAP machine multiple times in the past Morbid obesity History of intermittent atrial flutter 01/11/2021, patient seen eval examined during the rounds labs reviewed medications reviewed, critical care time 35 minutes, successfully weaned and extubated, patient currently on 2 L, hemoglobin drop down to 6.9 patient will be transfused 1 unit of packed RBC, patient remains on dopamine, and Precedex drip, also has been on amiodarone as needed for A. fib and aflutter, patient is status post CABG 2 with LAUREANO to LAD and radial artery to PDA tolerated well, WBC count is 12,800, BUN/creatinine is 34 and 1.03, patient will be kept in ICU 01/10/2021, overall respiratory status is marginal but stable, but wheezing has improved, patient does complaining of intermittent chest pain, patient is for coronary artery bypass surgery later on today 01/09/2021, patient seen eval examined during the rounds sitting upright in the bed continued to complain of anxiety as well as chest pain breathing slightly improved now arterial bloods is reviewed, spirometric pending, blood cultures no growth, patient remains on IV Rocephin, chest x-ray COPD-like changes, BiPAP again offered however patient declined 01/08/2021, patient seen eval reexamined during the rounds labs reviewed medications reviewed very anxious due to anticipated surgery on Wednesday intermittent chest pain her happening, I have discussed with RN about Xanax, respiratory status slightly improved, still have cough congestion and intermittent wheezing, arterial blood gas on room air noted pH is 7.4 pCO2 46 pO2 59, patient explained about highly risk for pulmonary complication however given the severity of coronary artery disease surgery needed 01/07/2021, patient seen eval examined during the rounds labs reviewed medications reviewed respiratory status stable, noted that PFT and ABG not yet done discussed with RN, patient has been complaining of chest pain and tightness as well, will defer the pain medicine to primary and cardiovascular services, patient is scheduled for bypass surgery later this week 01/06/2021, patient seen and evaluated examined, patient is tentatively scheduled for triple bypass later on this week, ongoing cough congestion and chest tightness remains on breathing treatments antibiotics and IV steroids 01/04/2021, patient appears slightly better but have ongoing congestion nonproductive wet cough, patient remains on steroids bronchodilator and broad-spectrum antibiotics to optimize lung condition patient has been ordered PFT and arterial blood gases this is a 65-year-old male with end-stage severe COPD chronic history of smoking and nicotine use also has history of recurrent pneumonia and states intermittent prednisone-dependent, oxygen dependent COPDpatient was recently hospitalized for left-sided pneumonia tracheobronchitis had a bronchial lavage and washing which she tolerated well discharged in stable condition 2 days prior to hospitalizatio n demented and chest pain, patient admitted into the hospital, recent echo revealed ejection fraction of 55%, with trace MR and TR, patient was noted to have elevated troponins underwent cardiac cath angiogram found to have left main disease, patient is being eval for bypass surgery, patient has ongoing shortness of breath sputum production and wheezing has been on broad-spectrum antibiotics cardiothoracic surgery is evaluating the patient Objective - Vital Signs Vital signs: Vital Signs Temp 97.3 F L 01/11/21 09:19 Pulse 64 01/11/21 10:00 Resp 18 01/11/21 10:00 BP 92/51 01/11/21 10:00 Pulse Ox 92 L 01/11/21 10:00 Intake & Output 01/10/21 01/11/21 01/11/21 18:59 06:59 18:59 Intake Total 2447.006 1096.506 565 Output Total 2530 2196 320 Balance -82.994 -1099.494 245 Weight 99 kg Intake: IV 1659 722 260 0.9NS Cardiac Output 60 130 30 0.9NS pressure bag 45 42 30 Albumin Human 25% 50 ml 1500 50 In Empty Bag 1 bag @ 100 mls/hr IVPB ONCE ONE Rx#: [id number] Lactated Ringers 1,000 ml 500 200 @ 50 mls/hr IV .Q20H [facility] Rx#:[id number] Intake, IV Titration 788.006 374.506 27 Amount ACETAMINOPHEN IV (For NPO 100 ) 1,000 mg In Empty Bag 1 bag @ 400 mls/hr IVPB Q6HR [facility] Rx#:[id number] Calcium Gluconate 2 gm In 100 Sodium Chloride 0.9% 100 ml @ 100 mls/hr IVPB ONCE ONE Rx#:[id number] DOPamine DRIP 800 mg In 1.86 Dextrose/Water 1 250ml. bag @ 2 MCG/KG/MIN 3.488 mls/hr IV .Q24H [facility] Rx#: [id number] Dexmedetomidine/0.9% NaCl 3.177 166.975 (Pmx) 400 mcg In Empty Bag 1 bag @ Titrate IV . Q0M [facility] Rx#:[id number] Insulin Regular 100 unit 2.104 In Sodium Chloride 0.9% 100 ml @ Per Protocol IV .Q0M [facility] Rx#:[id number] Lactated Ringers 1,000 ml 250 50 @ 50 mls/hr IV .Q20H [facility] Rx#:[id number] Magnesium Sulfate-D5w Pmx 100 1 gm In Dextrose/Water 1 100ml.bag @ 100 mls/hr IVPB ONCE ONE Rx#: [id number] Nitroglycerin-D5w Pmx 50 27 mg In Dextrose/Water 1 250ml.bag @ 5 MCG/MIN 1.5 mls/hr IV .Q24H [facility] Rx#: [id number] Potassium Chloride 20 meq 200 In Water For Injection 1 100ml.bag @ 50 mls/hr IVPB Q2H [facility] Rx#: [id number] propofoL 1,000 mg In 32.969 155.427 Empty Bag 1 bag @ Titrate IV .Q0M [facility] Rx#: [id number] Oral 0 Blood Product 0 278 Rc Pheresis As-3 Unit 0 278 [id number] Output: Chest Tube Drainage 690 666 190 Left Pleural Chest Tube 130 176 60 Mediastinal X 2 560 490 130 Drainage 120 100 0 Left Arm 120 100 0 Urine 720 1430 130 Estimated Blood Loss 1000 Other: Voiding Method Indwelling Catheter Indwelling Catheter Indwelling Catheter ABP, PAP, CO, CI - Last Documented Arterial Blood Pressure 97/42 Pulmonary Artery Pressure 47/13 Cardiac Output 6.5 Cardiac Index 3.1 - Exam - Constitutional General appearance: average body habitus, cooperative - Neck Neck: normal ROM Carotids: bilateral: upstroke normal Thyroid: bilateral: normal size - Respiratory Respiratory: bilateral: diminished, wheezing - Cardiovascular Rhythm: regular Heart sounds: normal: S1, S2 - Gastrointestinal General gastrointestinal: decreased bowel sounds, normal bowel sounds, soft - Integumentary Integumentary: normal turgor - Neurologic Neurologic: CNII-XII intact - Musculoskeletal Musculoskeletal: gait normal, generalized weakness, strength equal bilaterally - Psychiatric Psychiatric: A&O x's 3, appropriate affect, intact judgment & insight - Labs CBC & Chem 7: 01/11/21 04:00 01/11/21 04:00 Labs: Abnormal Lab Results - Last 24 Hours (Table) 01/09/21 01/10/21 01/10/21 Range/Units 09:56 08:43 10:08 WBC (3.8-10.6) k/uL RBC (4.30-5.90) m/uL Hgb (13.0-17.5) gm/dL Hct (39.0-53.0) % RDW (11.5-15.5) % Plt Count (150-450) k/uL Neutrophils # (1.3-7.7) k/uL Lymphocytes # (1.0-4.8) k/uL Monocytes # (0-1.0) k/uL PT (9.0-12.0) sec INR (<1.2) Fibrinogen (200-500) mg/dL ABG pH 7.46 H (7.35-7.45) ABG pO2 81 L 137 H (83-108) mmHg ABG HCO3 28 H 27 H (21-25) mmol/L ABG Total CO2 30 H 28 H (19-24) mmol/L ABG O2 Saturation 97.2 H 99.5 H (94-97) % ABG Hematocrit 32 L (34.0-46.0) % ABG Ionized Calcium 4.3 L 4.2 L (4.5-5.3) mg/dL ABG Glucose 104 H 127 H (75-99) mg/dL ABG Lactic Acid (0.5-1.6) mmol/L Hemoglobin 11.3 L 10.4 L (13.0-17.5) gm/dL Sodium (137-145) mmol/L BUN (9-20) mg/dL Glucose (74-99) mg/dL POC Glucose (mg/dL) (75-99) mg/dL Calcium (8.4-10.2) mg/dL Ionized Calcium Alice (4.5-5.3) mg/dL Magnesium (1.6-2.3) mg/dL AST (17-59) U/L ALT (4-49) U/L Alkaline Phosphatase (38-126) U/L Total Protein (6.3-8.2) g/dL Albumin (3.5-5.0) g/dL Arterial Blood Glucose 104 H 127 H (75-99) mg/dL Crossmatch See Detail 01/10/21 01/10/21 01/10/21 Range/Units 10:45 11:08 12:50 WBC 14.2 H (3.8-10.6) k/uL RBC 3.03 L (4.30-5.90) m/uL Hgb 9.1 L D (13.0-17.5) gm/dL Hct 27.8 L (39.0-53.0) % RDW 15.8 H (11.5-15.5) % Plt Count 138 L (150-450) k/uL Neutrophils # 12.8 H (1.3-7.7) k/uL Lymphocytes # 0.6 L (1.0-4.8) k/uL Monocytes # (0-1.0) k/uL PT (9.0-12.0) sec INR (<1.2) Fibrinogen (200-500) mg/dL ABG pH 7.46 H (7.35-7.45) ABG pO2 136 H 155 H (83-108) mmHg ABG HCO3 27 H 27 H (21-25) mmol/L ABG Total CO2 28 H 28 H (19-24) mmol/L ABG O2 Saturation 99.6 H 99.9 H (94-97) % ABG Hematocrit 30 L 30 L (34.0-46.0) % ABG Ionized Calcium 4.2 L 4.2 L (4.5-5.3) mg/dL ABG Glucose 125 H 129 H (75-99) mg/dL ABG Lactic Acid 1.9 H 2.1 H (0.5-1.6) mmol/L Hemoglobin 9.8 L 9.7 L (13.0-17.5) gm/dL Sodium (137-145) mmol/L BUN (9-20) mg/dL Glucose (74-99) mg/dL POC Glucose (mg/dL) (75-99) mg/dL Calcium (8.4-10.2) mg/dL Ionized Calcium Alice (4.5-5.3) mg/dL Magnesium (1.6-2.3) mg/dL AST (17-59) U/L ALT (4-49) U/L Alkaline Phosphatase (38-126) U/L Total Protein (6.3-8.2) g/dL Albumin (3.5-5.0) g/dL Arterial Blood Glucose 125 H 129 H (75-99) mg/dL Crossmatch 01/10/21 01/10/21 01/10/21 Range/Units 12:50 12:50 12:54 WBC (3.8-10.6) k/uL RBC (4.30-5.90) m/uL Hgb (13.0-17.5) gm/dL Hct (39.0-53.0) % RDW (11.5-15.5) % Plt Count (150-450) k/uL Neutrophils # (1.3-7.7) k/uL Lymphocytes # (1.0-4.8) k/uL Monocytes # (0-1.0) k/uL PT 13.3 H (9.0-12.0) sec INR 1.3 H (<1.2) Fibrinogen (200-500) mg/dL ABG pH (7.35-7.45) ABG pO2 (83-108) mmHg ABG HCO3 (21-25) mmol/L ABG Total CO2 (19-24) mmol/L ABG O2 Saturation (94-97) % ABG Hematocrit (34.0-46.0) % ABG Ionized Calcium (4.5-5.3) mg/dL ABG Glucose (75-99) mg/dL ABG Lactic Acid (0.5-1.6) mmol/L Hemoglobin (13.0-17.5) gm/dL Sodium 135 L (137-145) mmol/L BUN 39 H (9-20) mg/dL Glucose 120 H (74-99) mg/dL POC Glucose (mg/dL) 124 H (75-99) mg/dL Calcium 7.2 L (8.4-10.2) mg/dL Ionized Calcium Alice 4.3 L (4.5-5.3) mg/dL Magnesium (1.6-2.3) mg/dL AST 103 H (17-59) U/L ALT 54 H (4-49) U/L Alkaline Phosphatase (38-126) U/L Total Protein 4.0 L (6.3-8.2) g/dL Albumin 2.6 L (3.5-5.0) g/dL Arterial Blood Glucose (75-99) mg/dL Crossmatch 01/10/21 01/10/21 01/10/21 Range/Units 13:35 14:32 14:47 WBC (3.8-10.6) k/uL RBC (4.30-5.90) m/uL Hgb (13.0-17.5) gm/dL Hct (39.0-53.0) % RDW (11.5-15.5) % Plt Count (150-450) k/uL Neutrophils # (1.3-7.7) k/uL Lymphocytes # (1.0-4.8) k/uL Monocytes # (0-1.0) k/uL PT (9.0-12.0) sec INR (<1.2) Fibrinogen 115 L (200-500) mg/dL ABG pH (7.35-7.45) ABG pO2 335 H (83-108) mmHg ABG HCO3 27 H (21-25) mmol/L ABG Total CO2 28 H (19-24) mmol/L ABG O2 Saturation 99.4 H (94-97) % ABG Hematocrit (34.0-46.0) % ABG Ionized Calcium (4.5-5.3) mg/dL ABG Glucose (75-99) mg/dL ABG Lactic Acid (0.5-1.6) mmol/L Hemoglobin (13.0-17.5) gm/dL Sodium (137-145) mmol/L BUN (9-20) mg/dL Glucose (74-99) mg/dL POC Glucose (mg/dL) 125 H (75-99) mg/dL Calcium (8.4-10.2) mg/dL Ionized Calcium Alice (4.5-5.3) mg/dL Magnesium (1.6-2.3) mg/dL AST (17-59) U/L ALT (4-49) U/L Alkaline Phosphatase (38-126) U/L Total Protein (6.3-8.2) g/dL Albumin (3.5-5.0) g/dL Arterial Blood Glucose (75-99) mg/dL Crossmatch 01/10/21 01/10/21 01/10/21 Range/Units 15:28 16:29 18:00 WBC 26.4 H (3.8-10.6) k/uL RBC 2.50 L (4.30-5.90) m/uL Hgb 7.4 L D (13.0-17.5) gm/dL Hct 23.1 L (39.0-53.0) % RDW 15.7 H (11.5-15.5) % Plt Count (150-450) k/uL Neutrophils # 22.6 H (1.3-7.7) k/uL Lymphocytes # (1.0-4.8) k/uL Monocytes # 1.9 H (0-1.0) k/uL PT (9.0-12.0) sec INR (<1.2) Fibrinogen (200-500) mg/dL ABG pH (7.35-7.45) ABG pO2 (83-108) mmHg ABG HCO3 (21-25) mmol/L ABG Total CO2 (19-24) mmol/L ABG O2 Saturation (94-97) % ABG Hematocrit (34.0-46.0) % ABG Ionized Calcium (4.5-5.3) mg/dL ABG Glucose (75-99) mg/dL ABG Lactic Acid (0.5-1.6) mmol/L Hemoglobin (13.0-17.5) gm/dL Sodium (137-145) mmol/L BUN (9-20) mg/dL Glucose (74-99) mg/dL POC Glucose (mg/dL) 126 H 118 H (75-99) mg/dL Calcium (8.4-10.2) mg/dL Ionized Calcium Alice (4.5-5.3) mg/dL Magnesium (1.6-2.3) mg/dL AST (17-59) U/L ALT (4-49) U/L Alkaline Phosphatase (38-126) U/L Total Protein (6.3-8.2) g/dL Albumin (3.5-5.0) g/dL Arterial Blood Glucose (75-99) mg/dL Crossmatch 01/10/21 01/10/21 01/10/21 Range/Units 18:45 19:00 19:35 WBC 15.4 H (3.8-10.6) k/uL RBC 2.24 L (4.30-5.90) m/uL Hgb 6.8 L* (13.0-17.5) gm/dL Hct 20.5 L (39.0-53.0) % RDW (11.5-15.5) % Plt Count 137 L (150-450) k/uL Neutrophils # 13.2 H (1.3-7.7) k/uL Lymphocytes # 0.8 L (1.0-4.8) k/uL Monocytes # 1.2 H (0-1.0) k/uL PT (9.0-12.0) sec INR (<1.2) Fibrinogen (200-500) mg/dL ABG pH 7.34 L (7.35-7.45) ABG pO2 158 H (83-108) mmHg ABG HCO3 (21-25) mmol/L ABG Total CO2 25 H (19-24) mmol/L ABG O2 Saturation 98.8 H (94-97) % ABG Hematocrit (34.0-46.0) % ABG Ionized Calcium (4.5-5.3) mg/dL ABG Glucose (75-99) mg/dL ABG Lactic Acid (0.5-1.6) mmol/L Hemoglobin (13.0-17.5) gm/dL Sodium (137-145) mmol/L BUN (9-20) mg/dL Glucose (74-99) mg/dL POC Glucose (mg/dL) 129 H (75-99) mg/dL Calcium (8.4-10.2) mg/dL Ionized Calcium Alice (4.5-5.3) mg/dL Magnesium (1.6-2.3) mg/dL AST (17-59) U/L ALT (4-49) U/L Alkaline Phosphatase (38-126) U/L Total Protein (6.3-8.2) g/dL Albumin (3.5-5.0) g/dL Arterial Blood Glucose (75-99) mg/dL Crossmatch 01/10/21 01/10/21 01/10/21 Range/Units 19:54 21:09 22:01 WBC (3.8-10.6) k/uL RBC (4.30-5.90) m/uL Hgb (13.0-17.5) gm/dL Hct (39.0-53.0) % RDW (11.5-15.5) % Plt Count (150-450) k/uL Neutrophils # (1.3-7.7) k/uL Lymphocytes # (1.0-4.8) k/uL Monocytes # (0-1.0) k/uL PT (9.0-12.0) sec INR (<1.2) Fibrinogen (200-500) mg/dL ABG pH (7.35-7.45) ABG pO2 (83-108) mmHg ABG HCO3 (21-25) mmol/L ABG Total CO2 (19-24) mmol/L ABG O2 Saturation (94-97) % ABG Hematocrit (34.0-46.0) % ABG Ionized Calcium (4.5-5.3) mg/dL ABG Glucose (75-99) mg/dL ABG Lactic Acid (0.5-1.6) mmol/L Hemoglobin (13.0-17.5) gm/dL Sodium (137-145) mmol/L BUN (9-20) mg/dL Glucose (74-99) mg/dL POC Glucose (mg/dL) 127 H 114 H 113 H (75-99) mg/dL Calcium (8.4-10.2) mg/dL Ionized Calcium Alice (4.5-5.3) mg/dL Magnesium (1.6-2.3) mg/dL AST (17-59) U/L ALT (4-49) U/L Alkaline Phosphatase (38-126) U/L Total Protein (6.3-8.2) g/dL Albumin (3.5-5.0) g/dL Arterial Blood Glucose (75-99) mg/dL Crossmatch 01/10/21 01/10/21 01/11/21 Range/Units 22:58 23:51 00:27 WBC (3.8-10.6) k/uL RBC (4.30-5.90) m/uL Hgb (13.0-17.5) gm/dL Hct (39.0-53.0) % RDW (11.5-15.5) % Plt Count (150-450) k/uL Neutrophils # (1.3-7.7) k/uL Lymphocytes # (1.0-4.8) k/uL Monocytes # (0-1.0) k/uL PT (9.0-12.0) sec INR (<1.2) Fibrinogen (200-500) mg/dL ABG pH (7.35-7.45) ABG pO2 126 H (83-108) mmHg ABG HCO3 26 H (21-25) mmol/L ABG Total CO2 28 H (19-24) mmol/L ABG O2 Saturation 98.9 H (94-97) % ABG Hematocrit (34.0-46.0) % ABG Ionized Calcium (4.5-5.3) mg/dL ABG Glucose (75-99) mg/dL ABG Lactic Acid (0.5-1.6) mmol/L Hemoglobin (13.0-17.5) gm/dL Sodium (137-145) mmol/L BUN (9-20) mg/dL Glucose (74-99) mg/dL POC Glucose (mg/dL) 121 H 116 H (75-99) mg/dL Calcium (8.4-10.2) mg/dL Ionized Calcium Alice (4.5-5.3) mg/dL Magnesium (1.6-2.3) mg/dL AST (17-59) U/L ALT (4-49) U/L Alkaline Phosphatase (38-126) U/L Total Protein (6.3-8.2) g/dL Albumin (3.5-5.0) g/dL Arterial Blood Glucose (75-99) mg/dL Crossmatch 01/11/21 01/11/21 01/11/21 Range/Units 00:52 02:09 02:58 WBC (3.8-10.6) k/uL RBC (4.30-5.90) m/uL Hgb (13.0-17.5) gm/dL Hct (39.0-53.0) % RDW (11.5-15.5) % Plt Count (150-450) k/uL Neutrophils # (1.3-7.7) k/uL Lymphocytes # (1.0-4.8) k/uL Monocytes # (0-1.0) k/uL PT (9.0-12.0) sec INR (<1.2) Fibrinogen (200-500) mg/dL ABG pH (7.35-7.45) ABG pO2 (83-108) mmHg ABG HCO3 (21-25) mmol/L ABG Total CO2 (19-24) mmol/L ABG O2 Saturation (94-97) % ABG Hematocrit (34.0-46.0) % ABG Ionized Calcium (4.5-5.3) mg/dL ABG Glucose (75-99) mg/dL ABG Lactic Acid (0.5-1.6) mmol/L Hemoglobin (13.0-17.5) gm/dL Sodium (137-145) mmol/L BUN (9-20) mg/dL Glucose (74-99) mg/dL POC Glucose (mg/dL) 113 H 115 H 117 H (75-99) mg/dL Calcium (8.4-10.2) mg/dL Ionized Calcium Alice (4.5-5.3) mg/dL Magnesium (1.6-2.3) mg/dL AST (17-59) U/L ALT (4-49) U/L Alkaline Phosphatase (38-126) U/L Total Protein (6.3-8.2) g/dL Albumin (3.5-5.0) g/dL Arterial Blood Glucose (75-99) mg/dL Crossmatch 01/11/21 01/11/21 01/11/21 Range/Units 04:00 04:00 04:00 WBC 12.8 H (3.8-10.6) k/uL RBC 2.30 L (4.30-5.90) m/uL Hgb 6.9 L* (13.0-17.5) gm/dL Hct 20.9 L (39.0-53.0) % RDW 15.6 H (11.5-15.5) % Plt Count (150-450) k/uL Neutrophils # 10.3 H (1.3-7.7) k/uL Lymphocytes # (1.0-4.8) k/uL Monocytes # 1.1 H (0-1.0) k/uL PT (9.0-12.0) sec INR (<1.2) Fibrinogen (200-500) mg/dL ABG pH (7.35-7.45) ABG pO2 (83-108) mmHg ABG HCO3 (21-25) mmol/L ABG Total CO2 (19-24) mmol/L ABG O2 Saturation (94-97) % ABG Hematocrit (34.0-46.0) % ABG Ionized Calcium (4.5-5.3) mg/dL ABG Glucose (75-99) mg/dL ABG Lactic Acid (0.5-1.6) mmol/L Hemoglobin (13.0-17.5) gm/dL Sodium 135 L (137-145) mmol/L BUN 34 H (9-20) mg/dL Glucose 109 H (74-99) mg/dL POC Glucose (mg/dL) 118 H (75-99) mg/dL Calcium 7.7 L (8.4-10.2) mg/dL Ionized Calcium Alice (4.5-5.3) mg/dL Magnesium 2.5 H (1.6-2.3) mg/dL AST (17-59) U/L ALT (4-49) U/L Alkaline Phosphatase 37 L (38-126) U/L Total Protein 4.0 L (6.3-8.2) g/dL Albumin 2.7 L (3.5-5.0) g/dL Arterial Blood Glucose (75-99) mg/dL Crossmatch 01/11/21 01/11/21 01/11/21 Range/Units 06:04 07:07 08:09 WBC (3.8-10.6) k/uL RBC (4.30-5.90) m/uL Hgb (13.0-17.5) gm/dL Hct (39.0-53.0) % RDW (11.5-15.5) % Plt Count (150-450) k/uL Neutrophils # (1.3-7.7) k/uL Lymphocytes # (1.0-4.8) k/uL Monocytes # (0-1.0) k/uL PT (9.0-12.0) sec INR (<1.2) Fibrinogen (200-500) mg/dL ABG pH (7.35-7.45) ABG pO2 (83-108) mmHg ABG HCO3 (21-25) mmol/L ABG Total CO2 (19-24) mmol/L ABG O2 Saturation (94-97) % ABG Hematocrit (34.0-46.0) % ABG Ionized Calcium (4.5-5.3) mg/dL ABG Glucose (75-99) mg/dL ABG Lactic Acid (0.5-1.6) mmol/L Hemoglobin (13.0-17.5) gm/dL Sodium (137-145) mmol/L BUN (9-20) mg/dL Glucose (74-99) mg/dL POC Glucose (mg/dL) 127 H 123 H 115 H (75-99) mg/dL Calcium (8.4-10.2) mg/dL Ionized Calcium Alice (4.5-5.3) mg/dL Magnesium (1.6-2.3) mg/dL AST (17-59) U/L ALT (4-49) U/L Alkaline Phosphatase (38-126) U/L Total Protein (6.3-8.2) g/dL Albumin (3.5-5.0) g/dL Arterial Blood Glucose (75-99) mg/dL Crossmatch 01/11/21 Range/Units 10:02 WBC (3.8-10.6) k/uL RBC (4.30-5.90) m/uL Hgb (13.0-17.5) gm/dL Hct (39.0-53.0) % RDW (11.5-15.5) % Plt Count (150-450) k/uL Neutrophils # (1.3-7.7) k/uL Lymphocytes # (1.0-4.8) k/uL Monocytes # (0-1.0) k/uL PT (9.0-12.0) sec INR (<1.2) Fibrinogen (200-500) mg/dL ABG pH (7.35-7.45) ABG pO2 (83-108) mmHg ABG HCO3 (21-25) mmol/L ABG Total CO2 (19-24) mmol/L ABG O2 Saturation (94-97) % ABG Hematocrit (34.0-46.0) % ABG Ionized Calcium (4.5-5.3) mg/dL ABG Glucose (75-99) mg/dL ABG Lactic Acid (0.5-1.6) mmol/L Hemoglobin (13.0-17.5) gm/dL Sodium (137-145) mmol/L BUN (9-20) mg/dL Glucose (74-99) mg/dL POC Glucose (mg/dL) 115 H (75-99) mg/dL Calcium (8.4-10.2) mg/dL Ionized Calcium Alice (4.5-5.3) mg/dL Magnesium (1.6-2.3) mg/dL AST (17-59) U/L ALT (4-49) U/L Alkaline Phosphatase (38-126) U/L Total Protein (6.3-8.2) g/dL Albumin (3.5-5.0) g/dL Arterial Blood Glucose (75-99) mg/dL Crossmatch Assessment and Plan Assessment: Acute blood loss anemia expected outcome of CABG Generalized anxiety and hypertension on dopamine as well as Precedex drip significant coronary artery disease status post CABG 2 with LAUREANO to LAD and radial artery graft to PDA Acute CA with elevated troponin End-stage lung disease oxygen-dependent intermittent prednisone dependent Ongoing chest pain likely related to angina and coronary artery disease COPD Recent left-sided pneumonia Sleep disorder breathing and sleep apnea status post UPPP patient refused the CPAP machine multiple times in the past Morbid obesity History of intermittent atrial flutter Plan: continue bronchodilator as needed Continue Precedex drip with dopamine 1 unit packed RBC transfusion Chest tube removal and [place] removal Continue deep breathing sense incentive spirometry Further plan of care as per clinical response of the patient Time with Patient: Greater than 30
[2021-01-11] MEDS ORDERED: FUROSEMIDE 10 MG/ML 2 ML VIAL IV ONE (12:03)
--- NOTE | 2021-01-11 12:16 | P.PN ---
Subjective Progress Note Date: 01/11/21 Principal diagnosis: Coronary artery disease with left main disease, non-ST elevated myocardial infarction this admission. Past medical history significant for atrial flutter, hypertension, COPD, obstructive sleep apnea without CPAP use, status post uvulectomy, previous tobacco dependence, recent pneumonia, GI bleed, anxiety/depression, PTSD, marijuana use, and chronic pain. POD #1 coronary artery bypass grafting surgery 2, with his left internal mammary artery to left anterior descending coronary artery and his left radial artery off the aorta to the intermediate coronary artery. Exclusion of the left atrial appendage using a 40 mm Atriclip. Endoscopic harvesting of the left radial artery and endoscopic harvesting of the left greater saphenous vein from just below the knee to the groin. Intraoperative transesophageal echocardiogram. Postoperative acute blood loss anemia, expected due to hemodilution. The patient is seen in follow-up today 01/11/2021 at his bedside in the intensive care unit. Currently he is lying in bed, as awake, alert and oriented 3. He is complaining of some surgical type pain to his chest tube insertion sites rating his pain 10 out of 10 on the pain scale and denies any complaints of shortness of breath. He has had some episodes of hypotension and is currently on dopamine at 5 mcg/kg/m. Cardizem drip remains infusing at 5 mg per hour for radial artery spasm prophylaxis. Right IJ Cordis and Odebolt-Leanne catheter in place with current hemodynamics showing a cardiac output 4.7, cardiac index 2.2, PA pressures 46/15 and a CVP of 15 mmHg. He was successively extubated early this morning at 12:33 AM, and is currently on 2 L nasal cannula with oxygen saturations 97%. He is achieving 500 mL on his incentive spirometry with much encouragement. Mediastinal and left pleural chest tubes remain in place to low continuous wall suction -20 cm H2O. No air leak is present. Draining thin serosanguineous drainage. Mediastinal chest tubes put out 380 mL output in the last 8 hours and 1090 mL output since surgery. Left pleural chest tube drained 150 mL output in the last 8 hours and 300 mL output since surgery. Left arm TONI drain in place with no output in the last 8 hours. Laboratory results this morning show a WBC count of 12.8, hemoglobin 6.9, hematocrit 20.9, platelets 169, BUN 34, and creatinine 1.03. Objective - Vital Signs Vital signs: Vital Signs Temp 97.3 F L 01/11/21 09:19 Pulse 64 01/11/21 09:19 Resp 15 01/11/21 09:19 BP 92/51 01/11/21 09:19 Pulse Ox 92 L 01/11/21 09:19 Intake & Output 01/10/21 01/11/21 01/11/21 18:59 06:59 18:59 Intake Total 2447.006 1096.506 506 Output Total 2530 2196 225 Balance -82.994 -1099.494 281 Weight 99 kg Intake: IV 1659 722 201 0.9NS Cardiac Output 60 130 30 0.9NS pressure bag 45 42 21 Albumin Human 25% 50 ml 1500 50 In Empty Bag 1 bag @ 100 mls/hr IVPB ONCE ONE Rx#: [id number] Lactated Ringers 1,000 ml 500 150 @ 50 mls/hr IV .Q20H [facility] Rx#:[id number] Intake, IV Titration 788.006 374.506 27 Amount ACETAMINOPHEN IV (For NPO 100 ) 1,000 mg In Empty Bag 1 bag @ 400 mls/hr IVPB Q6HR [facility] Rx#:[id number] Calcium Gluconate 2 gm In 100 Sodium Chloride 0.9% 100 ml @ 100 mls/hr IVPB ONCE ONE Rx#:[id number] DOPamine DRIP 800 mg In 1.86 Dextrose/Water 1 250ml. bag @ 2 MCG/KG/MIN 3.488 mls/hr IV .Q24H [facility] Rx#: [id number] Dexmedetomidine/0.9% NaCl 3.177 166.975 (Pmx) 400 mcg In Empty Bag 1 bag @ Titrate IV . Q0M [facility] Rx#:[id number] Insulin Regular 100 unit 2.104 In Sodium Chloride 0.9% 100 ml @ Per Protocol IV .Q0M [facility] Rx#:[id number] Lactated Ringers 1,000 ml 250 50 @ 50 mls/hr IV .Q20H [facility] Rx#:[id number] Magnesium Sulfate-D5w Pmx 100 1 gm In Dextrose/Water 1 100ml.bag @ 100 mls/hr IVPB ONCE ONE Rx#: [id number] Nitroglycerin-D5w Pmx 50 27 mg In Dextrose/Water 1 250ml.bag @ 5 MCG/MIN 1.5 mls/hr IV .Q24H [facility] Rx#: [id number] Potassium Chloride 20 meq 200 In Water For Injection 1 100ml.bag @ 50 mls/hr IVPB Q2H [facility] Rx#: [id number] propofoL 1,000 mg In 32.969 155.427 Empty Bag 1 bag @ Titrate IV .Q0M [facility] Rx#: [id number] Oral 0 Blood Product 0 278 Rc Pheresis As-3 Unit 0 278 [id number] Output: Chest Tube Drainage 690 666 130 Left Pleural Chest Tube 130 176 50 Mediastinal X 2 560 490 80 Drainage 120 100 0 Left Arm 120 100 0 Urine 720 1430 95 Estimated Blood Loss 1000 Other: Voiding Method Indwelling Catheter Indwelling Catheter Indwelling Catheter ABP, PAP, CO, CI - Last Documented Arterial Blood Pressure 90/41 Pulmonary Artery Pressure 50/17 Cardiac Output 6.5 Cardiac Index 3.1 - Exam CONSTITUTIONAL: Sitting up to the bedside chair in the intensive care unit, appears comfortable, cooperative, no apparent acute distress. Complaining of surgical type pain to his chest tube insertion sites. HEENT: Neck is supple, no JVD, no lymphadenopathy. Right IJ Cordis and Odebolt- Leanne catheter in place and functioning. RESPIRATORY: Lungs sounds with scattered rhonchi throughout. Diminished to his bilateral bases. Respirations are symmetrical and nonlabored. Currently on 2 L nasal cannula with oxygen saturations 97%. Achieving 500 mL on his incentive spirometry. Strong cough. CARDIOVASCULAR: Regular rhythm and rate. S1 and S2 present, negative for S3, gallop or murmur. Sternum is stable. Bedside telemetry showing normal sinus rhythm heart rate 63 BPM. Palpable peripheral pulses bilaterally, +1 edema to his bilateral lower extremities. No calf pain or tenderness noted. Heart hu gger in place with patient demonstrating appropriate use. Knee-high PATRICK hose and sequential compression devices in place to his bilateral lower extremities. GASTROINTESTINAL: Abdomen soft, nontender, nondistended. Hypoactive bowel sounds present 4 quadrants. Tolerating diet. Passing flatus. No guarding or rigidity. GENITOURINARY: Manzanares present draining clear, yellow urine. Output 585 mL in the last 8 hours INTEGUMENTARY: Skin is warm and dry with no evidence of clubbing or cyanosis. Midline sternal incision clean dry and well approximated, covered with dry intact dressing. Left lower extremity EVH sites well approximated without redness or drainage. Left arm radial artery harvest sites clean, dry and approximated. No drainage or redness is present. NEUROLOGIC: Cranial nerves II through XII intact. No focal deficits. MUSKULOSKELETAL: Able to move all extremities, strength equal bilaterally, generalized weakness. PSYCHIATRIC: Alert and oriented to person place and time, appropriate affect, intact judgment and insight. INVASIVE LINES AND TUBES: Mediastinal/left pleural chest tubes present and connected to low continuous wall suction, no air leaks present. Mediastinal tube with 380 mL of thin serosanguineous drainage overnight, 1090 mL output in the last 24 hours. Left pleural chest tube with 150 mL of thin serosanguineous drainage overnight, 300 mL output in the last 24 hours. Right internal jugular Odebolt/Cordis, right radial arterial line present. Last CO 5.7 , CI 2.2, PA 46/15 and CVP 15 mmHg. Left arm TONI drain in place with scant thin serosanguineous drainage, 50 mL output since surgery. - Labs CBC & Chem 7: 01/11/21 04:00 01/11/21 04:00 Labs: Abnormal Lab Results - Last 24 Hours (Table) 01/09/21 01/10/21 01/10/21 Range/Units 09:56 08:43 10:08 WBC (3.8-10.6) k/uL RBC (4.30-5.90) m/uL Hgb (13.0-17.5) gm/dL Hct (39.0-53.0) % RDW (11.5-15.5) % Plt Count (150-450) k/uL Neutrophils # (1.3-7.7) k/uL Lymphocytes # (1.0-4.8) k/uL Monocytes # (0-1.0) k/uL PT (9.0-12.0) sec INR (<1.2) Fibrinogen (200-500) mg/dL ABG pH 7.46 H (7.35-7.45) ABG pO2 81 L 137 H (83-108) mmHg ABG HCO3 28 H 27 H (21-25) mmol/L ABG Total CO2 30 H 28 H (19-24) mmol/L ABG O2 Saturation 97.2 H 99.5 H (94-97) % ABG Hematocrit 32 L (34.0-46.0) % ABG Ionized Calcium 4.3 L 4.2 L (4.5-5.3) mg/dL ABG Glucose 104 H 127 H (75-99) mg/dL ABG Lactic Acid (0.5-1.6) mmol/L Hemoglobin 11.3 L 10.4 L (13.0-17.5) gm/dL Sodium (137-145) mmol/L BUN (9-20) mg/dL Glucose (74-99) mg/dL POC Glucose (mg/dL) (75-99) mg/dL Calcium (8.4-10.2) mg/dL Ionized Calcium Alice (4.5-5.3) mg/dL Magnesium (1.6-2.3) mg/dL AST (17-59) U/L ALT (4-49) U/L Alkaline Phosphatase (38-126) U/L Total Protein (6.3-8.2) g/dL Albumin (3.5-5.0) g/dL Arterial Blood Glucose 104 H 127 H (75-99) mg/dL Crossmatch See Detail 01/10/21 01/10/21 01/10/21 Range/Units 10:45 11:08 12:50 WBC 14.2 H (3.8-10.6) k/uL RBC 3.03 L (4.30-5.90) m/uL Hgb 9.1 L D (13.0-17.5) gm/dL Hct 27.8 L (39.0-53.0) % RDW 15.8 H (11.5-15.5) % Plt Count 138 L (150-450) k/uL Neutrophils # 12.8 H (1.3-7.7) k/uL Lymphocytes # 0.6 L (1.0-4.8) k/uL Monocytes # (0-1.0) k/uL PT (9.0-12.0) sec INR (<1.2) Fibrinogen (200-500) mg/dL ABG pH 7.46 H (7.35-7.45) ABG pO2 136 H 155 H (83-108) mmHg ABG HCO3 27 H 27 H (21-25) mmol/L ABG Total CO2 28 H 28 H (19-24) mmol/L ABG O2 Saturation 99.6 H 99.9 H (94-97) % ABG Hematocrit 30 L 30 L (34.0-46.0) % ABG Ionized Calcium 4.2 L 4.2 L (4.5-5.3) mg/dL ABG Glucose 125 H 129 H (75-99) mg/dL ABG Lactic Acid 1.9 H 2.1 H (0.5-1.6) mmol/L Hemoglobin 9.8 L 9.7 L (13.0-17.5) gm/dL Sodium (137-145) mmol/L BUN (9-20) mg/dL Glucose (74-99) mg/dL POC Glucose (mg/dL) (75-99) mg/dL Calcium (8.4-10.2) mg/dL Ionized Calcium Alice (4.5-5.3) mg/dL Magnesium (1.6-2.3) mg/dL AST (17-59) U/L ALT (4-49) U/L Alkaline Phosphatase (38-126) U/L Total Protein (6.3-8.2) g/dL Albumin (3.5-5.0) g/dL Arterial Blood Glucose 125 H 129 H (75-99) mg/dL Crossmatch 01/10/21 01/10/21 01/10/21 Range/Units 12:50 12:50 12:54 WBC (3.8-10.6) k/uL RBC (4.30-5.90) m/uL Hgb (13.0-17.5) gm/dL Hct (39.0-53.0) % RDW (11.5-15.5) % Plt Count (150-450) k/uL Neutrophils # (1.3-7.7) k/uL Lymphocytes # (1.0-4.8) k/uL Monocytes # (0-1.0) k/uL PT 13.3 H (9.0-12.0) sec INR 1.3 H (<1.2) Fibrinogen (200-500) mg/dL ABG pH (7.35-7.45) ABG pO2 (83-108) mmHg ABG HCO3 (21-25) mmol/L ABG Total CO2 (19-24) mmol/L ABG O2 Saturation (94-97) % ABG Hematocrit (34.0-46.0) % ABG Ionized Calcium (4.5-5.3) mg/dL ABG Glucose (75-99) mg/dL ABG Lactic Acid (0.5-1.6) mmol/L Hemoglobin (13.0-17.5) gm/dL Sodium 135 L (137-145) mmol/L BUN 39 H (9-20) mg/dL Glucose 120 H (74-99) mg/dL POC Glucose (mg/dL) 124 H (75-99) mg/dL Calcium 7.2 L (8.4-10.2) mg/dL Ionized Calcium Alice 4.3 L (4.5-5.3) mg/dL Magnesium (1.6-2.3) mg/dL AST 103 H (17-59) U/L ALT 54 H (4-49) U/L Alkaline Phosphatase (38-126) U/L Total Protein 4.0 L (6.3-8.2) g/dL Albumin 2.6 L (3.5-5.0) g/dL Arterial Blood Glucose (75-99) mg/dL Crossmatch 01/10/21 01/10/21 01/10/21 Range/Units 13:35 14:32 14:47 WBC (3.8-10.6) k/uL RBC (4.30-5.90) m/uL Hgb (13.0-17.5) gm/dL Hct (39.0-53.0) % RDW (11.5-15.5) % Plt Count (150-450) k/uL Neutrophils # (1.3-7.7) k/uL Lymphocytes # (1.0-4.8) k/uL Monocytes # (0-1.0) k/uL PT (9.0-12.0) sec INR (<1.2) Fibrinogen 115 L (200-500) mg/dL ABG pH (7.35-7.45) ABG pO2 335 H (83-108) mmHg ABG HCO3 27 H (21-25) mmol/L ABG Total CO2 28 H (19-24) mmol/L ABG O2 Saturation 99.4 H (94-97) % ABG Hematocrit (34.0-46.0) % ABG Ionized Calcium (4.5-5.3) mg/dL ABG Glucose (75-99) mg/dL ABG Lactic Acid (0.5-1.6) mmol/L Hemoglobin (13.0-17.5) gm/dL Sodium (137-145) mmol/L BUN (9-20) mg/dL Glucose (74-99) mg/dL POC Glucose (mg/dL) 125 H (75-99) mg/dL Calcium (8.4-10.2) mg/dL Ionized Calcium Alice (4.5-5.3) mg/dL Magnesium (1.6-2.3) mg/dL AST (17-59) U/L ALT (4-49) U/L Alkaline Phosphatase (38-126) U/L Total Protein (6.3-8.2) g/dL Albumin (3.5-5.0) g/dL Arterial Blood Glucose (75-99) mg/dL Crossmatch 01/10/21 01/10/21 01/10/21 Range/Units 15:28 16:29 18:00 WBC 26.4 H (3.8-10.6) k/uL RBC 2.50 L (4.30-5.90) m/uL Hgb 7.4 L D (13.0-17.5) gm/dL Hct 23.1 L (39.0-53.0) % RDW 15.7 H (11.5-15.5) % Plt Count (150-450) k/uL Neutrophils # 22.6 H (1.3-7.7) k/uL Lymphocytes # (1.0-4.8) k/uL Monocytes # 1.9 H (0-1.0) k/uL PT (9.0-12.0) sec INR (<1.2) Fibrinogen (200-500) mg/dL ABG pH (7.35-7.45) ABG pO2 (83-108) mmHg ABG HCO3 (21-25) mmol/L ABG Total CO2 (19-24) mmol/L ABG O2 Saturation (94-97) % ABG Hematocrit (34.0-46.0) % ABG Ionized Calcium (4.5-5.3) mg/dL ABG Glucose (75-99) mg/dL ABG Lactic Acid (0.5-1.6) mmol/L Hemoglobin (13.0-17.5) gm/dL Sodium (137-145) mmol/L BUN (9-20) mg/dL Glucose (74-99) mg/dL POC Glucose (mg/dL) 126 H 118 H (75-99) mg/dL Calcium (8.4-10.2) mg/dL Ionized Calcium Alice (4.5-5.3) mg/dL Magnesium (1.6-2.3) mg/dL AST (17-59) U/L ALT (4-49) U/L Alkaline Phosphatase (38-126) U/L Total Protein (6.3-8.2) g/dL Albumin (3.5-5.0) g/dL Arterial Blood Glucose (75-99) mg/dL Crossmatch 01/10/21 01/10/21 01/10/21 Range/Units 18:45 19:00 19:35 WBC 15.4 H (3.8-10.6) k/uL RBC 2.24 L (4.30-5.90) m/uL Hgb 6.8 L* (13.0-17.5) gm/dL Hct 20.5 L (39.0-53.0) % RDW (11.5-15.5) % Plt Count 137 L (150-450) k/uL Neutrophils # 13.2 H (1.3-7.7) k/uL Lymphocytes # 0.8 L (1.0-4.8) k/uL Monocytes # 1.2 H (0-1.0) k/uL PT (9.0-12.0) sec INR (<1.2) Fibrinogen (200-500) mg/dL ABG pH 7.34 L (7.35-7.45) ABG pO2 158 H (83-108) mmHg ABG HCO3 (21-25) mmol/L ABG Total CO2 25 H (19-24) mmol/L ABG O2 Saturation 98.8 H (94-97) % ABG Hematocrit (34.0-46.0) % ABG Ionized Calcium (4.5-5.3) mg/dL ABG Glucose (75-99) mg/dL ABG Lactic Acid (0.5-1.6) mmol/L Hemoglobin (13.0-17.5) gm/dL Sodium (137-145) mmol/L BUN (9-20) mg/dL Glucose (74-99) mg/dL POC Glucose (mg/dL) 129 H (75-99) mg/dL Calcium (8.4-10.2) mg/dL Ionized Calcium Alice (4.5-5.3) mg/dL Magnesium (1.6-2.3) mg/dL AST (17-59) U/L ALT (4-49) U/L Alkaline Phosphatase (38-126) U/L Total Protein (6.3-8.2) g/dL Albumin (3.5-5.0) g/dL Arterial Blood Glucose (75-99) mg/dL Crossmatch 01/10/21 01/10/21 01/10/21 Range/Units 19:54 21:09 22:01 WBC (3.8-10.6) k/uL RBC (4.30-5.90) m/uL Hgb (13.0-17.5) gm/dL Hct (39.0-53.0) % RDW (11.5-15.5) % Plt Count (150-450) k/uL Neutrophils # (1.3-7.7) k/uL Lymphocytes # (1.0-4.8) k/uL Monocytes # (0-1.0) k/uL PT (9.0-12.0) sec INR (<1.2) Fibrinogen (200-500) mg/dL ABG pH (7.35-7.45) ABG pO2 (83-108) mmHg ABG HCO3 (21-25) mmol/L ABG Total CO2 (19-24) mmol/L ABG O2 Saturation (94-97) % ABG Hematocrit (34.0-46.0) % ABG Ionized Calcium (4.5-5.3) mg/dL ABG Glucose (75-99) mg/dL ABG Lactic Acid (0.5-1.6) mmol/L Hemoglobin (13.0-17.5) gm/dL Sodium (137-145) mmol/L BUN (9-20) mg/dL Glucose (74-99) mg/dL POC Glucose (mg/dL) 127 H 114 H 113 H (75-99) mg/dL Calcium (8.4-10.2) mg/dL Ionized Calcium Alice (4.5-5.3) mg/dL Magnesium (1.6-2.3) mg/dL AST (17-59) U/L ALT (4-49) U/L Alkaline Phosphatase (38-126) U/L Total Protein (6.3-8.2) g/dL Albumin (3.5-5.0) g/dL Arterial Blood Glucose (75-99) mg/dL Crossmatch 01/10/21 01/10/21 01/11/21 Range/Units 22:58 23:51 00:27 WBC (3.8-10.6) k/uL RBC (4.30-5.90) m/uL Hgb (13.0-17.5) gm/dL Hct (39.0-53.0) % RDW (11.5-15.5) % Plt Count (150-450) k/uL Neutrophils # (1.3-7.7) k/uL Lymphocytes # (1.0-4.8) k/uL Monocytes # (0-1.0) k/uL PT (9.0-12.0) sec INR (<1.2) Fibrinogen (200-500) mg/dL ABG pH (7.35-7.45) ABG pO2 126 H (83-108) mmHg ABG HCO3 26 H (21-25) mmol/L ABG Total CO2 28 H (19-24) mmol/L ABG O2 Saturation 98.9 H (94-97) % ABG Hematocrit (34.0-46.0) % ABG Ionized Calcium (4.5-5.3) mg/dL ABG Glucose (75-99) mg/dL ABG Lactic Acid (0.5-1.6) mmol/L Hemoglobin (13.0-17.5) gm/dL Sodium (137-145) mmol/L BUN (9-20) mg/dL Glucose (74-99) mg/dL POC Glucose (mg/dL) 121 H 116 H (75-99) mg/dL Calcium (8.4-10.2) mg/dL Ionized Calcium Alice (4.5-5.3) mg/dL Magnesium (1.6-2.3) mg/dL AST (17-59) U/L ALT (4-49) U/L Alkaline Phosphatase (38-126) U/L Total Protein (6.3-8.2) g/dL Albumin (3.5-5.0) g/dL Arterial Blood Glucose (75-99) mg/dL Crossmatch 01/11/21 01/11/21 01/11/21 Range/Units 00:52 02:09 02:58 WBC (3.8-10.6) k/uL RBC (4.30-5.90) m/uL Hgb (13.0-17.5) gm/dL Hct (39.0-53.0) % RDW (11.5-15.5) % Plt Count (150-450) k/uL Neutrophils # (1.3-7.7) k/uL Lymphocytes # (1.0-4.8) k/uL Monocytes # (0-1.0) k/uL PT (9.0-12.0) sec INR (<1.2) Fibrinogen (200-500) mg/dL ABG pH (7.35-7.45) ABG pO2 (83-108) mmHg ABG HCO3 (21-25) mmol/L ABG Total CO2 (19-24) mmol/L ABG O2 Saturation (94-97) % ABG Hematocrit (34.0-46.0) % ABG Ionized Calcium (4.5-5.3) mg/dL ABG Glucose (75-99) mg/dL ABG Lactic Acid (0.5-1.6) mmol/L Hemoglobin (13.0-17.5) gm/dL Sodium (137-145) mmol/L BUN (9-20) mg/dL Glucose (74-99) mg/dL POC Glucose (mg/dL) 113 H 115 H 117 H (75-99) mg/dL Calcium (8.4-10.2) mg/dL Ionized Calcium Alice (4.5-5.3) mg/dL Magnesium (1.6-2.3) mg/dL AST (17-59) U/L ALT (4-49) U/L Alkaline Phosphatase (38-126) U/L Total Protein (6.3-8.2) g/dL Albumin (3.5-5.0) g/dL Arterial Blood Glucose (75-99) mg/dL Crossmatch 01/11/21 01/11/21 01/11/21 Range/Units 04:00 04:00 04:00 WBC 12.8 H (3.8-10.6) k/uL RBC 2.30 L (4.30-5.90) m/uL Hgb 6.9 L* (13.0-17.5) gm/dL Hct 20.9 L (39.0-53.0) % RDW 15.6 H (11.5-15.5) % Plt Count (150-450) k/uL Neutrophils # 10.3 H (1.3-7.7) k/uL Lymphocytes # (1.0-4.8) k/uL Monocytes # 1.1 H (0-1.0) k/uL PT (9.0-12.0) sec INR (<1.2) Fibrinogen (200-500) mg/dL ABG pH (7.35-7.45) ABG pO2 (83-108) mmHg ABG HCO3 (21-25) mmol/L ABG Total CO2 (19-24) mmol/L ABG O2 Saturation (94-97) % ABG Hematocrit (34.0-46.0) % ABG Ionized Calcium (4.5-5.3) mg/dL ABG Glucose (75-99) mg/dL ABG Lactic Acid (0.5-1.6) mmol/L Hemoglobin (13.0-17.5) gm/dL Sodium 135 L (137-145) mmol/L BUN 34 H (9-20) mg/dL Glucose 109 H (74-99) mg/dL POC Glucose (mg/dL) 118 H (75-99) mg/dL Calcium 7.7 L (8.4-10.2) mg/dL Ionized Calcium Alice (4.5-5.3) mg/dL Magnesium 2.5 H (1.6-2.3) mg/dL AST (17-59) U/L ALT (4-49) U/L Alkaline Phosphatase 37 L (38-126) U/L Total Protein 4.0 L (6.3-8.2) g/dL Albumin 2.7 L (3.5-5.0) g/dL Arterial Blood Glucose (75-99) mg/dL Crossmatch 01/11/21 01/11/21 01/11/21 Range/Units 06:04 07:07 08:09 WBC (3.8-10.6) k/uL RBC (4.30-5.90) m/uL Hgb (13.0-17.5) gm/dL Hct (39.0-53.0) % RDW (11.5-15.5) % Plt Count (150-450) k/uL Neutrophils # (1.3-7.7) k/uL Lymphocytes # (1.0-4.8) k/uL Monocytes # (0-1.0) k/uL PT (9.0-12.0) sec INR (<1.2) Fibrinogen (200-500) mg/dL ABG pH (7.35-7.45) ABG pO2 (83-108) mmHg ABG HCO3 (21-25) mmol/L ABG Total CO2 (19-24) mmol/L ABG O2 Saturation (94-97) % ABG Hematocrit (34.0-46.0) % ABG Ionized Calcium (4.5-5.3) mg/dL ABG Glucose (75-99) mg/dL ABG Lactic Acid (0.5-1.6) mmol/L Hemoglobin (13.0-17.5) gm/dL Sodium (137-145) mmol/L BUN (9-20) mg/dL Glucose (74-99) mg/dL POC Glucose (mg/dL) 127 H 123 H 115 H (75-99) mg/dL Calcium (8.4-10.2) mg/dL Ionized Calcium Alice (4.5-5.3) mg/dL Magnesium (1.6-2.3) mg/dL AST (17-59) U/L ALT (4-49) U/L Alkaline Phosphatase (38-126) U/L Total Protein (6.3-8.2) g/dL Albumin (3.5-5.0) g/dL Arterial Blood Glucose (75-99) mg/dL Crossmatch 01/11/21 Range/Units 10:02 WBC (3.8-10.6) k/uL RBC (4.30-5.90) m/uL Hgb (13.0-17.5) gm/dL Hct (39.0-53.0) % RDW (11.5-15.5) % Plt Count (150-450) k/uL Neutrophils # (1.3-7.7) k/uL Lymphocytes # (1.0-4.8) k/uL Monocytes # (0-1.0) k/uL PT (9.0-12.0) sec INR (<1.2) Fibrinogen (200-500) mg/dL ABG pH (7.35-7.45) ABG pO2 (83-108) mmHg ABG HCO3 (21-25) mmol/L ABG Total CO2 (19-24) mmol/L ABG O2 Saturation (94-97) % ABG Hematocrit (34.0-46.0) % ABG Ionized Calcium (4.5-5.3) mg/dL ABG Glucose (75-99) mg/dL ABG Lactic Acid (0.5-1.6) mmol/L Hemoglobin (13.0-17.5) gm/dL Sodium (137-145) mmol/L BUN (9-20) mg/dL Glucose (74-99) mg/dL POC Glucose (mg/dL) 115 H (75-99) mg/dL Calcium (8.4-10.2) mg/dL Ionized Calcium Alice (4.5-5.3) mg/dL Magnesium (1.6-2.3) mg/dL AST (17-59) U/L ALT (4-49) U/L Alkaline Phosphatase (38-126) U/L Total Protein (6.3-8.2) g/dL Albumin (3.5-5.0) g/dL Arterial Blood Glucose (75-99) mg/dL Crossmatch Assessment and Plan Assessment: 1. Coronary artery disease with left main disease status post 2 vessel coronary artery bypass grafting surgery 2. Non-ST elevated myocardial infarction this admission 3. Acute purulent tracheobronchitis without evidence of pneumonia at this admis ely, which was treated with ceftriaxone and IV Solu-Medrol 4. History of atrial flutter, currently sinus bradycardia on remote telemetry, status post exclusion of his left atrial appendage with a 40 mm Atriclip 5. Hypertension 6. COPD, FEV1 80% of predicted on bedside spirometry completed January 02/2021 7. Obstructive sleep apnea without CPAP use, status post uvulectomy 8. Previous tobacco dependence 9. Elevated lactic acid present on admission at 5.8, resolved 10. History of GI bleed, with history of bowel resection 11. Anxiety/depression, PTSD, bipolar disorder 12. Marijuana use 13. Chronic pain syndrome 14. History of benign prostatic hypertrophy Plan: 1. Continue aspirin, statin, Plavix. We will avoid using beta emerald at this time due to his history of COPD. 2. Wean O2 as tolerated to keep sats 92% or greater. Encourage incentive spirometry use 10 times every hour while awake. Bronchodilators per pulmonology. 3. Increase activity, ambulate as tolerated. PT/OT/cardiac rehab consulted. 4. Will monitor daily labs and chest x-rays. Electrolyte replacement per protocol. Potassium replaced this a.m. per protocol 5. GI/DVT prophylaxis. 6. Pain control with current medication regimen. Toradol 15 mg IV every 6 hours added for additional pain control. 7. Insulin management per primary care service. Patient is not diabetic, preop erative hemoglobin A1c 5.0% 8. Discontinue [place]. Connect Cordis to continuous CVP monitoring. 9. Continue mediastinal and left pleural chest tubes, arterial line for another 24 hours. 10. Continue Manzanares catheter for another 24 hours for strict accurate intake and output. Daily weights 11. Discontinue Cardizem drip, and start Norvasc 2.5 mg mouth every 6 hours, hold for MAP less than 70 mm/hg for radial artery spasm prophylaxis. Please do not discontinue calcium channel emerald without checking with cardiothoracic surgery prior. 12. 12. Discontinue nitroglycerin drip. 13. Transfuse 2 unit of packed red blood cells this morning, recheck CBC at noon. 14. Wean dopamine as tolerated. 15. Discontinue Solu-Medrol. 16. Start Mucomyst 200 mg inhalation 3 times a day. 17. Lasix 20 mg IV 1 post blood transfusion. 18. More recommendations to follow based on patient's progress. Time with Patient: Greater than 30
[2021-01-11 12:17] LABS: Glucose,Whole Blood 113 mg/dL (75-99)
[2021-01-11] MEDS: KETOROLAC 15 MG/ML 1 ML VIAL IVP SCH ×3 (12:49→23:35)
[2021-01-11] MEDS ORDERED: DILTIAZEM ORAL 30 MG TAB PO SCH (13:00)
[2021-01-11 14:12] LABS: Glucose,Whole Blood 101 mg/dL (75-99)
[2021-01-11] MEDS: DOPamine DRIP 800 MG in DEXTROSE/WATER 1 250ML.BAG IV SCH (15:23)
[2021-01-11 16:15] LABS: Glucose,Whole Blood 93 mg/dL (75-99)
--- NOTE | 2021-01-11 16:19 | P.PN ---
Subjective Progress Note Date: 01/11/21 Principal diagnosis: Acute [place] with elevated troponin Significant coronary artery disease involving left main COPD with acute exacerbation End-stage lung disease oxygen-dependent intermittent prednisone dependent 65-year-old male with end-stage severe COPD chronic history of smoking and nicotine use also has history of recurrent pneumonia and states intermittent prednisone-dependent, oxygen dependent COPDpatient was recently hospitalized for left-sided pneumonia tracheobronchitis had a bronchial lavage and washing which she tolerated well discharged in stable condition 2 days prior to hospitalization demented and chest pain, patient admitted into the hospital, recent echo revealed ejection fraction of 55%with trace MR and TR, patient was noted to have elevated troponins underwent cardiac cath angiogram found to have left main disease, patient is being eval for bypass surgery, patient has ongoing shortness of breath sputum production and wheezing has been on broad-spectrum antibiotics cardiothoracic surgery is evaluating 01/11/2021 Patient is seen and evaluated at bedside in ICU; complaining of uncontrolled pain; denies any complaints of shortness of breath. Remains on dopamine and Cardizem drip remains infusing at 5 mg per hour for radial artery spasm prophylaxis. He was successively extubated early this morning at 12:33 AM, and is currently on 2 L nasal cannula with oxygen saturations 97%. Laboratory results this morning show a WBC count of 12.8, hemoglobin 6.9, hematocrit 20.9, platelets 169, BUN 34, and creatinine 1.03. Objective - Vital Signs Vital signs: Vital Signs Temp 97.3 F L 01/11/21 09:19 Pulse 64 01/11/21 09:19 Resp 15 01/11/21 09:19 BP 92/51 01/11/21 09:19 Pulse Ox 92 L 01/11/21 09:19 Intake & Output 01/10/21 01/11/21 01/11/21 18:59 06:59 18:59 Intake Total 2447.006 1096.506 506 Output Total 2530 2196 225 Balance -82.994 -1099.494 281 Weight 99 kg Intake: IV 1659 722 201 0.9NS Cardiac Output 60 130 30 0.9NS pressure bag 45 42 21 Albumin Human 25% 50 ml 1500 50 In Empty Bag 1 bag @ 100 mls/hr IVPB ONCE ONE Rx#: [id number] Lactated Ringers 1,000 ml 500 150 @ 50 mls/hr IV .Q20H [facility] Rx#:[id number] Intake, IV Titration 788.006 374.506 27 Amount ACETAMINOPHEN IV (For NPO 100 ) 1,000 mg In Empty Bag 1 bag @ 400 mls/hr IVPB Q6HR [facility] Rx#:[id number] Calcium Gluconate 2 gm In 100 Sodium Chloride 0.9% 100 ml @ 100 mls/hr IVPB ONCE ONE Rx#:[id number] DOPamine DRIP 800 mg In 1.86 Dextrose/Water 1 250ml. bag @ 2 MCG/KG/MIN 3.488 mls/hr IV .Q24H [facility] Rx#: [id number] Dexmedetomidine/0.9% NaCl 3.177 166.975 (Pmx) 400 mcg In Empty Bag 1 bag @ Titrate IV . Q0M [facility] Rx#:[id number] Insulin Regular 100 unit 2.104 In Sodium Chloride 0.9% 100 ml @ Per Protocol IV .Q0M [facility] Rx#:[id number] Lactated Ringers 1,000 ml 250 50 @ 50 mls/hr IV .Q20H [facility] Rx#:[id number] Magnesium Sulfate-D5w Pmx 100 1 gm In Dextrose/Water 1 100ml.bag @ 100 mls/hr IVPB ONCE ONE Rx#: [id number] Nitroglycerin-D5w Pmx 50 27 mg In Dextrose/Water 1 250ml.bag @ 5 MCG/MIN 1.5 mls/hr IV .Q24H [facility] Rx#: [id number] Potassium Chloride 20 meq 200 In Water For Injection 1 100ml.bag @ 50 mls/hr IVPB Q2H [facility] Rx#: [id number] propofoL 1,000 mg In 32.969 155.427 Empty Bag 1 bag @ Titrate IV .Q0M [facility] Rx#: [id number] Oral 0 Blood Product 0 278 Rc Pheresis As-3 Unit 0 278 [id number] Output: Chest Tube Drainage 690 666 130 Left Pleural Chest Tube 130 176 50 Mediastinal X 2 560 490 80 Drainage 120 100 0 Left Arm 120 100 0 Urine 720 1430 95 Estimated Blood Loss 1000 Other: Voiding Method Indwelling Catheter Indwelling Catheter ABP, PAP, CO, CI - Last Documented Arterial Blood Pressure 90/41 Pulmonary Artery Pressure 50/17 Cardiac Output 6.5 Cardiac Index 3.1 - Exam - Constitutional General appearance: Present: average body habitus, cooperative, no acute dist ress - EENT Eyes: Present: anicteric sclerae, EOMI, PERRLA, normal appearance ENT: Present: hearing grossly normal, normal oropharynx Ears: bilateral: normal - Neck Neck: Present: normal ROM. Absent: lymphadenopathy, rigidity, thyromegaly Carotids: negative: bruit present Thyroid: bilateral: normal size, negative: enlarged, nodule - Respiratory Respiratory: bilateral: CTA, negative: rales, rhonchi, wheezing - Cardiovascular Rhythm: regular Heart sounds: normal: S1, S2 Abnormal Heart Sounds: Absent: systolic murmur, diastolic murmur - Gastrointestinal General gastrointestinal: Present: normal bowel sounds, soft. Absent: distended, organomegaly, tenderness - Genitourinary Genitourinary Comment(s): deferred - Integumentary Integumentary: Present: normal turgor. Absent: jaundiced, rash, ulcer - Neurologic Neurologic: Present: CNII-XII intact. Absent: focal deficits - Musculoskeletal Musculoskeletal: Present: gait normal, strength equal bilaterally - Psychiatric Psychiatric: Present: A&O x's 3, appropriate affect, intact judgment & insight - Labs CBC & Chem 7: 01/11/21 04:00 01/11/21 04:00 Labs: Abnormal Lab Results - Last 24 Hours (Table) 01/09/21 01/10/21 01/10/21 Range/Units 09:56 08:43 10:08 WBC (3.8-10.6) k/uL RBC (4.30-5.90) m/uL Hgb (13.0-17.5) gm/dL Hct (39.0-53.0) % RDW (11.5-15.5) % Plt Count (150-450) k/uL Neutrophils # (1.3-7.7) k/uL Lymphocytes # (1.0-4.8) k/uL Monocytes # (0-1.0) k/uL PT (9.0-12.0) sec INR (<1.2) Fibrinogen (200-500) mg/dL ABG pH 7.46 H (7.35-7.45) ABG pO2 81 L 137 H (83-108) mmHg ABG HCO3 28 H 27 H (21-25) mmol/L ABG Total CO2 30 H 28 H (19-24) mmol/L ABG O2 Saturation 97.2 H 99.5 H (94-97) % ABG Hematocrit 32 L (34.0-46.0) % ABG Ionized Calcium 4.3 L 4.2 L (4.5-5.3) mg/dL ABG Glucose 104 H 127 H (75-99) mg/dL ABG Lactic Acid (0.5-1.6) mmol/L Hemoglobin 11.3 L 10.4 L (13.0-17.5) gm/dL Sodium (137-145) mmol/L BUN (9-20) mg/dL Glucose (74-99) mg/dL POC Glucose (mg/dL) (75-99) mg/dL Calcium (8.4-10.2) mg/dL Ionized Calcium Alice (4.5-5.3) mg/dL Magnesium (1.6-2.3) mg/dL AST (17-59) U/L ALT (4-49) U/L Alkaline Phosphatase (38-126) U/L Total Protein (6.3-8.2) g/dL Albumin (3.5-5.0) g/dL Arterial Blood Glucose 104 H 127 H (75-99) mg/dL Crossmatch See Detail 01/10/21 01/10/21 01/10/21 Range/Units 10:45 11:08 12:50 WBC 14.2 H (3.8-10.6) k/uL RBC 3.03 L (4.30-5.90) m/uL Hgb 9.1 L D (13.0-17.5) gm/dL Hct 27.8 L (39.0-53.0) % RDW 15.8 H (11.5-15.5) % Plt Count 138 L (150-450) k/uL Neutrophils # 12.8 H (1.3-7.7) k/uL Lymphocytes # 0.6 L (1.0-4.8) k/uL Monocytes # (0-1.0) k/uL PT (9.0-12.0) sec INR (<1.2) Fibrinogen (200-500) mg/dL ABG pH 7.46 H (7.35-7.45) ABG pO2 136 H 155 H (83-108) mmHg ABG HCO3 27 H 27 H (21-25) mmol/L ABG Total CO2 28 H 28 H (19-24) mmol/L ABG O2 Saturation 99.6 H 99.9 H (94-97) % ABG Hematocrit 30 L 30 L (34.0-46.0) % ABG Ionized Calcium 4.2 L 4.2 L (4.5-5.3) mg/dL ABG Glucose 125 H 129 H (75-99) mg/dL ABG Lactic Acid 1.9 H 2.1 H (0.5-1.6) mmol/L Hemoglobin 9.8 L 9.7 L (13.0-17.5) gm/dL Sodium (137-145) mmol/L BUN (9-20) mg/dL Glucose (74-99) mg/dL POC Glucose (mg/dL) (75-99) mg/dL Calcium (8.4-10.2) mg/dL Ionized Calcium Alice (4.5-5.3) mg/dL Magnesium (1.6-2.3) mg/dL AST (17-59) U/L ALT (4-49) U/L Alkaline Phosphatase (38-126) U/L Total Protein (6.3-8.2) g/dL Albumin (3.5-5.0) g/dL Arterial Blood Glucose 125 H 129 H (75-99) mg/dL Crossmatch 01/10/21 01/10/21 01/10/21 Range/Units 12:50 12:50 12:54 WBC (3.8-10.6) k/uL RBC (4.30-5.90) m/uL Hgb (13.0-17.5) gm/dL Hct (39.0-53.0) % RDW (11.5-15.5) % Plt Count (150-450) k/uL Neutrophils # (1.3-7.7) k/uL Lymphocytes # (1.0-4.8) k/uL Monocytes # (0-1.0) k/uL PT 13.3 H (9.0-12.0) sec INR 1.3 H (<1.2) Fibrinogen (200-500) mg/dL ABG pH (7.35-7.45) ABG pO2 (83-108) mmHg ABG HCO3 (21-25) mmol/L ABG Total CO2 (19-24) mmol/L ABG O2 Saturation (94-97) % ABG Hematocrit (34.0-46.0) % ABG Ionized Calcium (4.5-5.3) mg/dL ABG Glucose (75-99) mg/dL ABG Lactic Acid (0.5-1.6) mmol/L Hemoglobin (13.0-17.5) gm/dL Sodium 135 L (137-145) mmol/L BUN 39 H (9-20) mg/dL Glucose 120 H (74-99) mg/dL POC Glucose (mg/dL) 124 H (75-99) mg/dL Calcium 7.2 L (8.4-10.2) mg/dL Ionized Calcium Alice 4.3 L (4.5-5.3) mg/dL Magnesium (1.6-2.3) mg/dL AST 103 H (17-59) U/L ALT 54 H (4-49) U/L Alkaline Phosphatase (38-126) U/L Total Protein 4.0 L (6.3-8.2) g/dL Albumin 2.6 L (3.5-5.0) g/dL Arterial Blood Glucose (75-99) mg/dL Crossmatch 01/10/21 01/10/21 01/10/21 Range/Units 13:35 14:32 14:47 WBC (3.8-10.6) k/uL RBC (4.30-5.90) m/uL Hgb (13.0-17.5) gm/dL Hct (39.0-53.0) % RDW (11.5-15.5) % Plt Count (150-450) k/uL Neutrophils # (1.3-7.7) k/uL Lymphocytes # (1.0-4.8) k/uL Monocytes # (0-1.0) k/uL PT (9.0-12.0) sec INR (<1.2) Fibrinogen 115 L (200-500) mg/dL ABG pH (7.35-7.45) ABG pO2 335 H (83-108) mmHg ABG HCO3 27 H (21-25) mmol/L ABG Total CO2 28 H (19-24) mmol/L ABG O2 Saturation 99.4 H (94-97) % ABG Hematocrit (34.0-46.0) % ABG Ionized Calcium (4.5-5.3) mg/dL ABG Glucose (75-99) mg/dL ABG Lactic Acid (0.5-1.6) mmol/L Hemoglobin (13.0-17.5) gm/dL Sodium (137-145) mmol/L BUN (9-20) mg/dL Glucose (74-99) mg/dL POC Glucose (mg/dL) 125 H (75-99) mg/dL Calcium (8.4-10.2) mg/dL Ionized Calcium Alice (4.5-5.3) mg/dL Magnesium (1.6-2.3) mg/dL AST (17-59) U/L ALT (4-49) U/L Alkaline Phosphatase (38-126) U/L Total Protein (6.3-8.2) g/dL Albumin (3.5-5.0) g/dL Arterial Blood Glucose (75-99) mg/dL Crossmatch 01/10/21 01/10/21 01/10/21 Range/Units 15:28 16:29 18:00 WBC 26.4 H (3.8-10.6) k/uL RBC 2.50 L (4.30-5.90) m/uL Hgb 7.4 L D (13.0-17.5) gm/dL Hct 23.1 L (39.0-53.0) % RDW 15.7 H (11.5-15.5) % Plt Count (150-450) k/uL Neutrophils # 22.6 H (1.3-7.7) k/uL Lymphocytes # (1.0-4.8) k/uL Monocytes # 1.9 H (0-1.0) k/uL PT (9.0-12.0) sec INR (<1.2) Fibrinogen (200-500) mg/dL ABG pH (7.35-7.45) ABG pO2 (83-108) mmHg ABG HCO3 (21-25) mmol/L ABG Total CO2 (19-24) mmol/L ABG O2 Saturation (94-97) % ABG Hematocrit (34.0-46.0) % ABG Ionized Calcium (4.5-5.3) mg/dL ABG Glucose (75-99) mg/dL ABG Lactic Acid (0.5-1.6) mmol/L Hemoglobin (13.0-17.5) gm/dL Sodium (137-145) mmol/L BUN (9-20) mg/dL Glucose (74-99) mg/dL POC Glucose (mg/dL) 126 H 118 H (75-99) mg/dL Calcium (8.4-10.2) mg/dL Ionized Calcium Alice (4.5-5.3) mg/dL Magnesium (1.6-2.3) mg/dL AST (17-59) U/L ALT (4-49) U/L Alkaline Phosphatase (38-126) U/L Total Protein (6.3-8.2) g/dL Albumin (3.5-5.0) g/dL Arterial Blood Glucose (75-99) mg/dL Crossmatch 01/10/21 01/10/21 01/10/21 Range/Units 18:45 19:00 19:35 WBC 15.4 H (3.8-10.6) k/uL RBC 2.24 L (4.30-5.90) m/uL Hgb 6.8 L* (13.0-17.5) gm/dL Hct 20.5 L (39.0-53.0) % RDW (11.5-15.5) % Plt Count 137 L (150-450) k/uL Neutrophils # 13.2 H (1.3-7.7) k/uL Lymphocytes # 0.8 L (1.0-4.8) k/uL Monocytes # 1.2 H (0-1.0) k/uL PT (9.0-12.0) sec INR (<1.2) Fibrinogen (200-500) mg/dL ABG pH 7.34 L (7.35-7.45) ABG pO2 158 H (83-108) mmHg ABG HCO3 (21-25) mmol/L ABG Total CO2 25 H (19-24) mmol/L ABG O2 Saturation 98.8 H (94-97) % ABG Hematocrit (34.0-46.0) % ABG Ionized Calcium (4.5-5.3) mg/dL ABG Glucose (75-99) mg/dL ABG Lactic Acid (0.5-1.6) mmol/L Hemoglobin (13.0-17.5) gm/dL Sodium (137-145) mmol/L BUN (9-20) mg/dL Glucose (74-99) mg/dL POC Glucose (mg/dL) 129 H (75-99) mg/dL Calcium (8.4-10.2) mg/dL Ionized Calcium Alice (4.5-5.3) mg/dL Magnesium (1.6-2.3) mg/dL AST (17-59) U/L ALT (4-49) U/L Alkaline Phosphatase (38-126) U/L Total Protein (6.3-8.2) g/dL Albumin (3.5-5.0) g/dL Arterial Blood Glucose (75-99) mg/dL Crossmatch 01/10/21 01/10/21 01/10/21 Range/Units 19:54 21:09 22:01 WBC (3.8-10.6) k/uL RBC (4.30-5.90) m/uL Hgb (13.0-17.5) gm/dL Hct (39.0-53.0) % RDW (11.5-15.5) % Plt Count (150-450) k/uL Neutrophils # (1.3-7.7) k/uL Lymphocytes # (1.0-4.8) k/uL Monocytes # (0-1.0) k/uL PT (9.0-12.0) sec INR (<1.2) Fibrinogen (200-500) mg/dL ABG pH (7.35-7.45) ABG pO2 (83-108) mmHg ABG HCO3 (21-25) mmol/L ABG Total CO2 (19-24) mmol/L ABG O2 Saturation (94-97) % ABG Hematocrit (34.0-46.0) % ABG Ionized Calcium (4.5-5.3) mg/dL ABG Glucose (75-99) mg/dL ABG Lactic Acid (0.5-1.6) mmol/L Hemoglobin (13.0-17.5) gm/dL Sodium (137-145) mmol/L BUN (9-20) mg/dL Glucose (74-99) mg/dL POC Glucose (mg/dL) 127 H 114 H 113 H (75-99) mg/dL Calcium (8.4-10.2) mg/dL Ionized Calcium Alice (4.5-5.3) mg/dL Magnesium (1.6-2.3) mg/dL AST (17-59) U/L ALT (4-49) U/L Alkaline Phosphatase (38-126) U/L Total Protein (6.3-8.2) g/dL Albumin (3.5-5.0) g/dL Arterial Blood Glucose (75-99) mg/dL Crossmatch 01/10/21 01/10/21 01/11/21 Range/Units 22:58 23:51 00:27 WBC (3.8-10.6) k/uL RBC (4.30-5.90) m/uL Hgb (13.0-17.5) gm/dL Hct (39.0-53.0) % RDW (11.5-15.5) % Plt Count (150-450) k/uL Neutrophils # (1.3-7.7) k/uL Lymphocytes # (1.0-4.8) k/uL Monocytes # (0-1.0) k/uL PT (9.0-12.0) sec INR (<1.2) Fibrinogen (200-500) mg/dL ABG pH (7.35-7.45) ABG pO2 126 H (83-108) mmHg ABG HCO3 26 H (21-25) mmol/L ABG Total CO2 28 H (19-24) mmol/L ABG O2 Saturation 98.9 H (94-97) % ABG Hematocrit (34.0-46.0) % ABG Ionized Calcium (4.5-5.3) mg/dL ABG Glucose (75-99) mg/dL ABG Lactic Acid (0.5-1.6) mmol/L Hemoglobin (13.0-17.5) gm/dL Sodium (137-145) mmol/L BUN (9-20) mg/dL Glucose (74-99) mg/dL POC Glucose (mg/dL) 121 H 116 H (75-99) mg/dL Calcium (8.4-10.2) mg/dL Ionized Calcium Alice (4.5-5.3) mg/dL Magnesium (1.6-2.3) mg/dL AST (17-59) U/L ALT (4-49) U/L Alkaline Phosphatase (38-126) U/L Total Protein (6.3-8.2) g/dL Albumin (3.5-5.0) g/dL Arterial Blood Glucose (75-99) mg/dL Crossmatch 01/11/21 01/11/21 01/11/21 Range/Units 00:52 02:09 02:58 WBC (3.8-10.6) k/uL RBC (4.30-5.90) m/uL Hgb (13.0-17.5) gm/dL Hct (39.0-53.0) % RDW (11.5-15.5) % Plt Count (150-450) k/uL Neutrophils # (1.3-7.7) k/uL Lymphocytes # (1.0-4.8) k/uL Monocytes # (0-1.0) k/uL PT (9.0-12.0) sec INR (<1.2) Fibrinogen (200-500) mg/dL ABG pH (7.35-7.45) ABG pO2 (83-108) mmHg ABG HCO3 (21-25) mmol/L ABG Total CO2 (19-24) mmol/L ABG O2 Saturation (94-97) % ABG Hematocrit (34.0-46.0) % ABG Ionized Calcium (4.5-5.3) mg/dL ABG Glucose (75-99) mg/dL ABG Lactic Acid (0.5-1.6) mmol/L Hemoglobin (13.0-17.5) gm/dL Sodium (137-145) mmol/L BUN (9-20) mg/dL Glucose (74-99) mg/dL POC Glucose (mg/dL) 113 H 115 H 117 H (75-99) mg/dL Calcium (8.4-10.2) mg/dL Ionized Calcium Alice (4.5-5.3) mg/dL Magnesium (1.6-2.3) mg/dL AST (17-59) U/L ALT (4-49) U/L Alkaline Phosphatase (38-126) U/L Total Protein (6.3-8.2) g/dL Albumin (3.5-5.0) g/dL Arterial Blood Glucose (75-99) mg/dL Crossmatch 01/11/21 01/11/21 01/11/21 Range/Units 04:00 04:00 04:00 WBC 12.8 H (3.8-10.6) k/uL RBC 2.30 L (4.30-5.90) m/uL Hgb 6.9 L* (13.0-17.5) gm/dL Hct 20.9 L (39.0-53.0) % RDW 15.6 H (11.5-15.5) % Plt Count (150-450) k/uL Neutrophils # 10.3 H (1.3-7.7) k/uL Lymphocytes # (1.0-4.8) k/uL Monocytes # 1.1 H (0-1.0) k/uL PT (9.0-12.0) sec INR (<1.2) Fibrinogen (200-500) mg/dL ABG pH (7.35-7.45) ABG pO2 (83-108) mmHg ABG HCO3 (21-25) mmol/L ABG Total CO2 (19-24) mmol/L ABG O2 Saturation (94-97) % ABG Hematocrit (34.0-46.0) % ABG Ionized Calcium (4.5-5.3) mg/dL ABG Glucose (75-99) mg/dL ABG Lactic Acid (0.5-1.6) mmol/L Hemoglobin (13.0-17.5) gm/dL Sodium 135 L (137-145) mmol/L BUN 34 H (9-20) mg/dL Glucose 109 H (74-99) mg/dL POC Glucose (mg/dL) 118 H (75-99) mg/dL Calcium 7.7 L (8.4-10.2) mg/dL Ionized Calcium Alice (4.5-5.3) mg/dL Magnesium 2.5 H (1.6-2.3) mg/dL AST (17-59) U/L ALT (4-49) U/L Alkaline Phosphatase 37 L (38-126) U/L Total Protein 4.0 L (6.3-8.2) g/dL Albumin 2.7 L (3.5-5.0) g/dL Arterial Blood Glucose (75-99) mg/dL Crossmatch 01/11/21 01/11/21 01/11/21 Range/Units 06:04 07:07 08:09 WBC (3.8-10.6) k/uL RBC (4.30-5.90) m/uL Hgb (13.0-17.5) gm/dL Hct (39.0-53.0) % RDW (11.5-15.5) % Plt Count (150-450) k/uL Neutrophils # (1.3-7.7) k/uL Lymphocytes # (1.0-4.8) k/uL Monocytes # (0-1.0) k/uL PT (9.0-12.0) sec INR (<1.2) Fibrinogen (200-500) mg/dL ABG pH (7.35-7.45) ABG pO2 (83-108) mmHg ABG HCO3 (21-25) mmol/L ABG Total CO2 (19-24) mmol/L ABG O2 Saturation (94-97) % ABG Hematocrit (34.0-46.0) % ABG Ionized Calcium (4.5-5.3) mg/dL ABG Glucose (75-99) mg/dL ABG Lactic Acid (0.5-1.6) mmol/L Hemoglobin (13.0-17.5) gm/dL Sodium (137-145) mmol/L BUN (9-20) mg/dL Glucose (74-99) mg/dL POC Glucose (mg/dL) 127 H 123 H 115 H (75-99) mg/dL Calcium (8.4-10.2) mg/dL Ionized Calcium Alice (4.5-5.3) mg/dL Magnesium (1.6-2.3) mg/dL AST (17-59) U/L ALT (4-49) U/L Alkaline Phosphatase (38-126) U/L Total Protein (6.3-8.2) g/dL Albumin (3.5-5.0) g/dL Arterial Blood Glucose (75-99) mg/dL Crossmatch Assessment and Plan Assessment: 1. Significant coronary artery disease involving left main - Cardiothoracic surgery is following and patient is scheduled for coronary artery bypass surgery later on today 2. Acute [place] with elevated troponin; status post cardiac catheterization which revealed significant coronary artery disease involving left main; patient scheduled for CABG today 3. End-stage lung disease oxygen-dependent intermittent prednisone dependent/acute exacerbation - Pulmonary is following and recommending to continue with bronchodilator and steroid nebulizer therapy, continue with current antibiotics and incentive spirometry - Currently on IV steroids with plans to taper once stable 4. Ongoing chest pain likely related to angina and coronary artery disease 5. Sleep disorder breathing and sleep apnea status post UPPP patient refused the CPAP machine multiple times in the past 6. History of intermittent atrial flutter; patient is currently on IV amiodarone infusion; continue with aspirin 7. Hyperlipidemia; Lipitor 40 mg by mouth daily at bedtime 8. Depression/anxiety; continue with current dose of Wellbutrin and BuSpar DVT prophylaxis; SCDs/subcu heparin CODE STATUS; full code
[2021-01-11 17:19] LABS: HCT 27.4 % (39.0-53.0); MCH 30.2 pg (25.0-35.0); MCHC 33.5 g/dL (31.0-37.0); MCV 90.3 fL (80.0-100.0); RBC 3.03 m/uL (4.30-5.90); RDW 15.6 % (11.5-15.5); WBC 9.4 k/uL (3.8-10.6)
[2021-01-11] MEDS: ACETYLCYSTEINE 800 MG/4 ML VIAL INHALATION SCH ×2 (17:20→21:14)
[2021-01-11 17:33] LABS: HGB 9.2 gm/dL (13.0-17.5); Platelet Count 97 k/uL (150-450)
[2021-01-11 18:20] LABS: Glucose,Whole Blood 102 mg/dL (75-99)
[2021-01-11] MEDS ORDERED: Potassium Replacement Protocol 1 EACH MISC MISCELLANE PRN (18:46)
[2021-01-11] MEDS ORDERED: amLODIPine 2.5 MG TAB PO SCH (19:30)
[2021-01-11 19:51] LABS: Glucose,Whole Blood 123 mg/dL (75-99)
[2021-01-11] MEDS: SENNOSIDES-DOCUSATE SODIUM 1 EACH TAB PO SCH (21:05)
[2021-01-11 23:39] LABS: Glucose,Whole Blood 142 mg/dL (75-99)
[2021-01-11] MEDS: INSULIN REGULAR 100 UNIT in SODIUM CHLORIDE 0.9% 100 ML IV SCH (23:50)
[2021-01-12] MEDS: HYDROcodone/APAP 5-325MG 1 EACH TAB PO PRN ×6 (00:54→22:03)
[2021-01-12 01:03] LABS: Glucose,Whole Blood 119 mg/dL (75-99)
[2021-01-12 02:00] LABS: Glucose,Whole Blood 119 mg/dL (75-99)
[2021-01-12 03:03] LABS: Glucose,Whole Blood 132 mg/dL (75-99)
[2021-01-12 04:18] LABS: Basophils % (A) 0 %; Eosinophils # (A) 0.1 k/uL (0-0.7); Eosinophils % (A) 0 %; HCT 23.1 % (39.0-53.0); Lymphocytes # (A) 0.7 k/uL (1.0-4.8); Lymphocytes % (A) 4 %; MCH 31.2 pg (25.0-35.0); MCHC 34.7 g/dL (31.0-37.0); MCV 89.9 fL (80.0-100.0); Mean Platelet Volume 8.6; Monocytes # (A) 1.1 k/uL (0-1.0); Monocytes % (A) 6 %; Neutrophils # (A) 16.4 k/uL (1.3-7.7); Neutrophils % (A) 89 %; Platelet Count 108 k/uL (150-450); RBC 2.57 m/uL (4.30-5.90); RDW 15.2 % (11.5-15.5); WBC 18.5 k/uL (3.8-10.6)
[2021-01-12 04:22] LABS: Ionized Calcium 4.6 mg/dL (4.5-5.3)
[2021-01-12 04:29] LABS: Potassium 4.3 mmol/L (3.5-5.1)
[2021-01-12] MEDS: LACTATED RINGERS 1,000 ML IV SCH (04:38)
[2021-01-12 04:47] LABS: Glucose,Whole Blood 128 mg/dL (75-99)
[2021-01-12 05:30] LABS: Albumin 2.5 g/dL (3.5-5.0); Calcium 7.5 mg/dL (8.4-10.2); Total Bilirubin 0.9 mg/dL (0.2-1.3)
[2021-01-12] MEDS: KETOROLAC 15 MG/ML 1 ML VIAL IVP SCH ×4 (06:30→23:56)
[2021-01-12] MEDS: PANTOPRAZOLE 40 MG TABLET PO SCH (06:30)
[2021-01-12 06:35] LABS: Glucose,Whole Blood 132 mg/dL (75-99)
--- NOTE | 2021-01-12 07:02 | P.PN ---
Subjective Progress Note Date: 01/12/21 Principal diagnosis: Acute coronary syndrome This is a 65-year-old gentleman who was admitted to the hospital with chest discomfort and ruled in for acute coronary syndrome. He underwent a heart catheterization and was found to have severe triple-vessel CAD. He underwent after that coronary artery that is grafting 2 with LAUREANO to LAD and radial artery to PDA. This is postoperative elevation day #2. The patient was seen this morning he was in pain mainly above the incision site in the sternal. Hemodynamically the blood pressure is soft and marginally low. He is on Norvasc at 2.5 mg by mouth daily for the radial graft and also he is on metoprolol 12.5 mg by mouth twice a day. He received yesterday 2 units of packed RBC admitting hemoglobin this morning is 8.0. The chest x-ray was reviewed and showed bilateral pleural effusion. Objective - Vital Signs Vital signs: Vital Signs Temp 98.4 F 01/12/21 04:00 Pulse 58 L 01/12/21 04:00 Resp 16 01/12/21 04:00 BP 98/54 01/12/21 04:00 Pulse Ox 97 01/12/21 04:00 Intake & Output 01/11/21 01/11/21 01/12/21 06:59 18:59 06:59 Intake Total 6409.601 7819.614 212.836 Output Total 2196 1665 805 Balance -1099.494 -313.386 -592.164 Weight 99 kg 99 kg Intake: IV 722 540 210 0.9NS Cardiac Output 130 60 0.9NS pressure bag 42 90 30 Albumin Human 25% 50 ml 50 In Empty Bag 1 bag @ 100 mls/hr IVPB ONCE ONE Rx#: [id number] Lactated Ringers 1,000 ml 500 390 180 @ 20 mls/hr IV .Q24H [facility] Rx#:[id number] Intake, IV Titration 374.506 223.614 2.836 Amount DOPamine DRIP 800 mg In 196.614 Dextrose/Water 1 250ml. bag @ 2 MCG/KG/MIN 3.488 mls/hr IV .Q24H [facility] Rx#: [id number] Dexmedetomidine/0.9% NaCl 166.975 (Pmx) 400 mcg In Empty Bag 1 bag @ Titrate IV . Q0M [facility] Rx#:[id number] Insulin Regular 100 unit 2.104 2.836 In Sodium Chloride 0.9% 100 ml @ Per Protocol IV .Q0M [facility] Rx#:[id number] Lactated Ringers 1,000 ml 50 @ 20 mls/hr IV .Q24H [facility] Rx#:[id number] Nitroglycerin-D5w Pmx 50 27 mg In Dextrose/Water 1 250ml.bag @ 5 MCG/MIN 1.5 mls/hr IV .Q24H [facility] Rx#: [id number] propofoL 1,000 mg In 155.427 Empty Bag 1 bag @ Titrate IV .Q0M [facility] Rx#: [id number] Blood Product 0 588 Rc As-1 Unit 310 [id number] Rc Pheresis As-3 Unit 0 278 [id number] Output: Chest Tube Drainage 666 560 445 Left Pleural Chest Tube 176 160 50 Mediastinal X 2 490 400 395 Drainage 100 5 Left Arm 100 5 Urine 1430 1100 360 Other: Voiding Method Indwelling Catheter Indwelling Catheter Indwelling Catheter ABP, PAP, CO, CI - Last Documented Arterial Blood Pressure 102/47 Pulmonary Artery Pressure 47/19 Cardiac Output 7.1 Cardiac Index 3.4 - Constitutional General appearance: Present: no acute distress - Respiratory Respiratory: bilateral: diminished - Cardiovascular Rhythm: regular Heart sounds: normal: S1, S2 - Labs CBC & Chem 7: 01/12/21 04:00 01/12/21 04:00 Labs: Abnormal Lab Results - Last 24 Hours (Table) 01/09/21 01/11/21 01/11/21 Range/Units 09:56 07:07 08:09 WBC (3.8-10.6) k/uL RBC (4.30-5.90) m/uL Hgb (13.0-17.5) gm/dL Hct (39.0-53.0) % RDW (11.5-15.5) % Plt Count (150-450) k/uL Neutrophils # (1.3-7.7) k/uL Lymphocytes # (1.0-4.8) k/uL Monocytes # (0-1.0) k/uL BUN (9-20) mg/dL Glucose (74-99) mg/dL POC Glucose (mg/dL) 123 H 115 H (75-99) mg/dL Calcium (8.4-10.2) mg/dL Alkaline Phosphatase (38-126) U/L Total Protein (6.3-8.2) g/dL Albumin (3.5-5.0) g/dL Crossmatch See Detail 01/11/21 01/11/21 01/11/21 Range/Units 10:02 12:16 14:09 WBC (3.8-10.6) k/uL RBC (4.30-5.90) m/uL Hgb (13.0-17.5) gm/dL Hct (39.0-53.0) % RDW (11.5-15.5) % Plt Count (150-450) k/uL Neutrophils # (1.3-7.7) k/uL Lymphocytes # (1.0-4.8) k/uL Monocytes # (0-1.0) k/uL BUN (9-20) mg/dL Glucose (74-99) mg/dL POC Glucose (mg/dL) 115 H 113 H 101 H (75-99) mg/dL Calcium (8.4-10.2) mg/dL Alkaline Phosphatase (38-126) U/L Total Protein (6.3-8.2) g/dL Albumin (3.5-5.0) g/dL Crossmatch 01/11/21 01/11/21 01/11/21 Range/Units 17:15 18:19 19:49 WBC (3.8-10.6) k/uL RBC 3.03 L (4.30-5.90) m/uL Hgb 9.2 L D (13.0-17.5) gm/dL Hct 27.4 L (39.0-53.0) % RDW 15.6 H (11.5-15.5) % Plt Count 97 L (150-450) k/uL Neutrophils # (1.3-7.7) k/uL Lymphocytes # (1.0-4.8) k/uL Monocytes # (0-1.0) k/uL BUN (9-20) mg/dL Glucose (74-99) mg/dL POC Glucose (mg/dL) 102 H 123 H (75-99) mg/dL Calcium (8.4-10.2) mg/dL Alkaline Phosphatase (38-126) U/L Total Protein (6.3-8.2) g/dL Albumin (3.5-5.0) g/dL Crossmatch 01/11/21 01/12/21 01/12/21 Range/Units 23:39 00:59 01:58 WBC (3.8-10.6) k/uL RBC (4.30-5.90) m/uL Hgb (13.0-17.5) gm/dL Hct (39.0-53.0) % RDW (11.5-15.5) % Plt Count (150-450) k/uL Neutrophils # (1.3-7.7) k/uL Lymphocytes # (1.0-4.8) k/uL Monocytes # (0-1.0) k/uL BUN (9-20) mg/dL Glucose (74-99) mg/dL POC Glucose (mg/dL) 142 H 119 H 119 H (75-99) mg/dL Calcium (8.4-10.2) mg/dL Alkaline Phosphatase (38-126) U/L Total Protein (6.3-8.2) g/dL Albumin (3.5-5.0) g/dL Crossmatch 01/12/21 01/12/21 01/12/21 Range/Units 03:01 04:00 04:00 WBC 18.5 H (3.8-10.6) k/uL RBC 2.57 L (4.30-5.90) m/uL Hgb 8.0 L (13.0-17.5) gm/dL Hct 23.1 L (39.0-53.0) % RDW (11.5-15.5) % Plt Count 108 L (150-450) k/uL Neutrophils # 16.4 H (1.3-7.7) k/uL Lymphocytes # 0.7 L (1.0-4.8) k/uL Monocytes # 1.1 H (0-1.0) k/uL BUN 35 H (9-20) mg/dL Glucose 123 H (74-99) mg/dL POC Glucose (mg/dL) 132 H (75-99) mg/dL Calcium 7.5 L (8.4-10.2) mg/dL Alkaline Phosphatase 36 L (38-126) U/L Total Protein 4.0 L (6.3-8.2) g/dL Albumin 2.5 L (3.5-5.0) g/dL Crossmatch 01/12/21 01/12/21 Range/Units 04:03 06:34 WBC (3.8-10.6) k/uL RBC (4.30-5.90) m/uL Hgb (13.0-17.5) gm/dL Hct (39.0-53.0) % RDW (11.5-15.5) % Plt Count (150-450) k/uL Neutrophils # (1.3-7.7) k/uL Lymphocytes # (1.0-4.8) k/uL Monocytes # (0-1.0) k/uL BUN (9-20) mg/dL Glucose (74-99) mg/dL POC Glucose (mg/dL) 128 H 132 H (75-99) mg/dL Calcium (8.4-10.2) mg/dL Alkaline Phosphatase (38-126) U/L Total Protein (6.3-8.2) g/dL Albumin (3.5-5.0) g/dL Crossmatch Assessment and Plan Assessment: Assessment #1 coronary artery bypass grafting 2 and this is the #1 after surgery #2 severe triple-vessel CAD #3 blood loss anemia #4 multiple comorbid conditions Plan #1 continue monitoring the hemoglobin very closely #2 rule out bleeding. The patient still have some bleeding from the chest tube #3 probably we need to hold the beta emerald at this point in view of the margin a low blood pressure
[2021-01-12] MEDS: ACETYLCYSTEINE 800 MG/4 ML VIAL INHALATION SCH ×3 (07:22→20:14)
[2021-01-12] MEDS: FORMOTEROL FUMARATE 20 MCG/2 ML NEBU INHALATION SCH ×2 (07:22→20:14)
[2021-01-12] MEDS: BUDESONIDE 1 MG/2 ML NEBU INHALATION SCH ×2 (07:22→16:25)
[2021-01-12] MEDS: IPRATROPIUM-ALBUTEROL 3 ML NEB INHALATION SCH ×4 (07:22→20:14)
--- NOTE | 2021-01-12 08:02 | XR ---
EXAMINATION TYPE: XR chest 1V portable DATE OF EXAM: 01/12/2021 Comparison: 01/11/2021 Clinical History: 65-year-old male Post Operative Cardiac Surgery Findings: Mediastinal drains. Median sternotomy wires and post-CABG clips. Low lung volumes. Left-sided chest t ube in place. No appreciable pneumothorax. Right IJ sheath. Interstitial densities. Retrocardiac opac ity. Mild bilateral chest wall subcutaneous emphysema. Impression: Cardiomegaly. Hypoventilatory changes with possible mild pulmonary vascular congestion. Trace effusio ns with adjacent atelectasis and/or consolidation. Overall not significantly changed.
[2021-01-12 08:03] LABS: Glucose,Whole Blood 127 mg/dL (75-99)
[2021-01-12] MEDS: busPIRone HCl 5 MG TAB PO SCH ×3 (09:19→22:21)
[2021-01-12] MEDS: allopurinoL 300 MG TAB PO SCH (09:19)
[2021-01-12] MEDS: buPROPion XL 300 MG TAB.ER.24H PO SCH (09:19)
[2021-01-12] MEDS: HEPARIN SODIUM,PORCINE/PF 5,000 UNIT/0.5 ML SYRINGE SQ SCH ×3 (09:19→23:56)
[2021-01-12] MEDS: FINASTERIDE 5 MG TAB PO SCH (09:19)
[2021-01-12] MEDS: DULoxetine HCL 60 MG CAPSULE.DR PO SCH (09:19)
[2021-01-12] MEDS: CLOPIDOGREL 75 MG TAB PO SCH (09:20)
[2021-01-12] MEDS: MONTELUKAST 10 MG TAB PO SCH (09:20)
[2021-01-12] MEDS: FERROUS SULFATE 325 MG TAB PO SCH (09:20)
[2021-01-12] MEDS: ATORVASTATIN 40 MG TAB PO SCH (09:20)
[2021-01-12] MEDS: TAMSULOSIN 0.4 MG CAP.ER.24H PO SCH (09:20)
[2021-01-12] MEDS: ASPIRIN 325 MG TAB PO SCH (09:20)
--- NOTE | 2021-01-12 10:53 | P.PN ---
Subjective Progress Note Date: 01/12/21 Principal diagnosis: significant coronary artery disease involving left main Acute RI with elevated troponin End-stage lung disease oxygen-dependent intermittent prednisone dependent COPD with acute exacerbation Recent left-sided pneumonia Sleep disorder breathing and sleep apnea status post UPPP patient refused the CPAP machine multiple times in the past Morbid obesity History of intermittent atrial flutter 01/12/2021, patient is awake and alert on 2 L oxygen breathing comfortably, patient is getting new IV lines, patient is still have the left-sided chest tube along with mediastinal tube, both draining serosanguineous fluid, respiratory status marginal but stable hemodynamic status stable, patient is awake and alert but very anxious, [place] has been removed, chest x-ray from earlier this morning reviewed and compared continue showed low volumes with the drains stable no pneumothorax is seen stable internal jugular introducer sheath, hemoglobin stable at 8, white cell count is 18,500, BUN/creatinine 35 and 1.22 sugars stable 127, patient is on amiodarone drip intermittently for A. fib RVR, off of dopamine as well as the Precedex drip, we'll continue to monitor observe closely in ICU 01/11/2021, patient seen eval examined during the rounds labs reviewed medications reviewed, critical care time 35 minutes, successfully weaned and extubated, patient currently on 2 L, hemoglobin drop down to 6.9 patient will be transfused 1 unit of packed RBC, patient remains on dopamine, and Precedex drip, also has been on amiodarone as needed for A. fib and aflutter, patient is status post CABG 2 with LAUREANO to LAD and radial artery to PDA tolerated well, WBC count is 12,800, BUN/creatinine is 34 and 1.03, patient will be kept in ICU 01/10/2021, overall respiratory status is marginal but stable, but wheezing has improved, patient does complaining of intermittent chest pain, patient is for coronary artery bypass surgery later on today 01/09/2021, patient seen eval examined during the rounds sitting upright in the bed continued to complain of anxiety as well as chest pain breathing slightly improved now arterial bloods is reviewed, spirometric pending, blood cultures no growth, patient remains on IV Rocephin, chest x-ray COPD-like changes, BiPAP a gain offered however patient declined 01/08/2021, patient seen eval reexamined during the rounds labs reviewed medications reviewed very anxious due to anticipated surgery on Wednesday intermittent chest pain her happening, I have discussed with RN about Xanax, respiratory status slightly improved, still have cough congestion and intermittent wheezing, arterial blood gas on room air noted pH is 7.4 pCO2 46 pO2 59, patient explained about highly risk for pulmonary complication however given the severity of coronary artery disease surgery needed 01/07/2021, patient seen eval examined during the rounds labs reviewed medications reviewed respiratory status stable, noted that PFT and ABG not yet done discussed with RN, patient has been complaining of chest pain and tightness as well, will defer the pain medicine to primary and cardiovascular services, patient is scheduled for bypass surgery later this week 01/06/2021, patient seen and evaluated examined, patient is tentatively scheduled for triple bypass later on this week, ongoing cough congestion and chest tightness remains on breathing treatments antibiotics and IV steroids 01/04/2021, patient appears slightly better but have ongoing congestion nonproductive wet cough, patient remains on steroids bronchodilator and broad- spectrum antibiotics to optimize lung condition patient has been ordered PFT and arterial blood gases this is a 65-year-old male with end-stage severe COPD chronic history of smoking and nicotine use also has history of recurrent pneumonia and states intermittent prednisone-dependent, oxygen dependent COPDpatient was recently hospitalized for left-sided pneumonia tracheobronchitis had a bronchial lavage and washing which she tolerated well discharged in stable condition 2 days prior to hospitalization demented and chest pain, patient admitted into the hospital, recent echo revealed ejection fraction of 55%, with trace MR and TR, patient was noted to have elevated troponins underwent cardiac cath angiogram found to have left main disease, patient is being eval for bypass surgery, patient has ongoing shortness of breath sputum production and wheezing has been on broad-spectrum antibiotics cardiothoracic surgery is evaluating the patient Objective - Vital Signs Vital signs: Vital Signs Temp 98.4 F 01/12/21 04:00 Pulse 90 01/12/21 09:00 Resp 19 01/12/21 09:00 BP 126/70 01/12/21 09:00 Pulse Ox 93 L 01/12/21 09:00 Intake & Output 01/11/21 01/12/21 01/12/21 18:59 06:59 18:59 Intake Total 1351.614 258.836 59.272 Output Total 1665 935 165 Balance -313.386 -676.164 -105.728 Weight 99 kg Intake: IV 540 256 52 0.9NS Cardiac Output 60 0.9NS pressure bag 90 36 12 Lactated Ringers 1,000 ml 390 220 40 @ 20 mls/hr IV .Q24H [facility] Rx#:[id number] Intake, IV Titration 223.614 2.836 7.272 Amount DOPamine DRIP 800 mg In 196.614 Dextrose/Water 1 250ml. bag @ 2 MCG/KG/MIN 3.488 mls/hr IV .Q24H [facility] Rx#: [id number] Insulin Regular 100 unit 2.836 7.272 In Sodium Chloride 0.9% 100 ml @ Per Protocol IV .Q0M [facility] Rx#:[id number] Nitroglycerin-D5w Pmx 50 27 mg In Dextrose/Water 1 250ml.bag @ 5 MCG/MIN 1.5 mls/hr IV .Q24H [facility] Rx#: [id number] Blood Product 588 Rc As-1 Unit 310 [id number] Rc Pheresis As-3 Unit 278 [id number] Output: Chest Tube Drainage 560 515 80 Left Pleural Chest Tube 160 70 30 Mediastinal X 2 400 445 50 Drainage 5 Left Arm 5 Urine 1100 420 85 Other: Voiding Method Indwelling Catheter Indwelling Catheter Indwelling Catheter ABP, PAP, CO, CI - Last Documented Arterial Blood Pressure 140/61 Pulmonary Artery Pressure 47/19 Cardiac Output 7.1 Cardiac Index 3.4 - Exam - Constitutional General appearance: average body habitus, cooperative - Neck Neck: normal ROM Carotids: bilateral: upstroke normal Thyroid: bilateral: normal size - Respiratory Respiratory: bilateral: diminished, wheezing - Cardiovascular Rhythm: regular Heart sounds: normal: S1, S2 - Gastrointestinal General gastrointestinal: decreased bowel sounds, normal bowel sounds, soft - Integumentary Integumentary: normal turgor - Neurologic Neurologic: CNII-XII intact - Musculoskeletal Musculoskeletal: gait normal, generalized weakness, strength equal bilaterally - Psychiatric Psychiatric: A&O x's 3, appropriate affect, intact judgment & insight - Labs CBC & Chem 7: 01/12/21 04:00 01/12/21 04:00 Labs: Abnormal Lab Results - Last 24 Hours (Table) 01/09/21 01/11/21 01/11/21 Range/Units 09:56 12:16 14:09 WBC (3.8-10.6) k/uL RBC (4.30-5.90) m/uL Hgb (13.0-17.5) gm/dL Hct (39.0-53.0) % RDW (11.5-15.5) % Plt Count (150-450) k/uL Neutrophils # (1.3-7.7) k/uL Lymphocytes # (1.0-4.8) k/uL Monocytes # (0-1.0) k/uL BUN (9-20) mg/dL Glucose (74-99) mg/dL POC Glucose (mg/dL) 113 H 101 H (75-99) mg/dL Calcium (8.4-10.2) mg/dL Alkaline Phosphatase (38-126) U/L Total Protein (6.3-8.2) g/dL Albumin (3.5-5.0) g/dL Crossmatch See Detail 01/11/21 01/11/21 01/11/21 Range/Units 17:15 18:19 19:49 WBC (3.8-10.6) k/uL RBC 3.03 L (4.30-5.90) m/uL Hgb 9.2 L D (13.0-17.5) gm/dL Hct 27.4 L (39.0-53.0) % RDW 15.6 H (11.5-15.5) % Plt Count 97 L (150-450) k/uL Neutrophils # (1.3-7.7) k/uL Lymphocytes # (1.0-4.8) k/uL Monocytes # (0-1.0) k/uL BUN (9-20) mg/dL Glucose (74-99) mg/dL POC Glucose (mg/dL) 102 H 123 H (75-99) mg/dL Calcium (8.4-10.2) mg/dL Alkaline Phosphatase (38-126) U/L Total Protein (6.3-8.2) g/dL Albumin (3.5-5.0) g/dL Crossmatch 01/11/21 01/12/21 01/12/21 Range/Units 23:39 00:59 01:58 WBC (3.8-10.6) k/uL RBC (4.30-5.90) m/uL Hgb (13.0-17.5) gm/dL Hct (39.0-53.0) % RDW (11.5-15.5) % Plt Count (150-450) k/uL Neutrophils # (1.3-7.7) k/uL Lymphocytes # (1.0-4.8) k/uL Monocytes # (0-1.0) k/uL BUN (9-20) mg/dL Glucose (74-99) mg/dL POC Glucose (mg/dL) 142 H 119 H 119 H (75-99) mg/dL Calcium (8.4-10.2) mg/dL Alkaline Phosphatase (38-126) U/L Total Protein (6.3-8.2) g/dL Albumin (3.5-5.0) g/dL Crossmatch 01/12/21 01/12/21 01/12/21 Range/Units 03:01 04:00 04:00 WBC 18.5 H (3.8-10.6) k/uL RBC 2.57 L (4.30-5.90) m/uL Hgb 8.0 L (13.0-17.5) gm/dL Hct 23.1 L (39.0-53.0) % RDW (11.5-15.5) % Plt Count 108 L (150-450) k/uL Neutrophils # 16.4 H (1.3-7.7) k/uL Lymphocytes # 0.7 L (1.0-4.8) k/uL Monocytes # 1.1 H (0-1.0) k/uL BUN 35 H (9-20) mg/dL Glucose 123 H (74-99) mg/dL POC Glucose (mg/dL) 132 H (75-99) mg/dL Calcium 7.5 L (8.4-10.2) mg/dL Alkaline Phosphatase 36 L (38-126) U/L Total Protein 4.0 L (6.3-8.2) g/dL Albumin 2.5 L (3.5-5.0) g/dL Crossmatch 01/12/21 01/12/21 01/12/21 Range/Units 04:03 06:34 08:02 WBC (3.8-10.6) k/uL RBC (4.30-5.90) m/uL Hgb (13.0-17.5) gm/dL Hct (39.0-53.0) % RDW (11.5-15.5) % Plt Count (150-450) k/uL Neutrophils # (1.3-7.7) k/uL Lymphocytes # (1.0-4.8) k/uL Monocytes # (0-1.0) k/uL BUN (9-20) mg/dL Glucose (74-99) mg/dL POC Glucose (mg/dL) 128 H 132 H 127 H (75-99) mg/dL Calcium (8.4-10.2) mg/dL Alkaline Phosphatase (38-126) U/L Total Protein (6.3-8.2) g/dL Albumin (3.5-5.0) g/dL Crossmatch Assessment and Plan Assessment: Acute blood loss anemia expected outcome of CABG Generalized anxiety and hypertension on dopamine as well as Precedex drip significant coronary artery disease status post CABG 2 with LAUREANO to LAD and radial artery graft to PDA Acute RI with elevated troponin End-stage lung disease oxygen-dependent intermittent prednisone dependent Ongoing chest pain likely related to angina and coronary artery disease COPD Recent left-sided pneumonia Sleep disorder breathing and sleep apnea status post UPPP patient refused the CPAP machine multiple times in the past Morbid obesity History of intermittent atrial flutter Plan: continue bronchodilator as needed Continue Precedex drip with dopamine 1 unit packed RBC transfusion Chest tube removal and [place] removal Continue deep breathing sense incentive spirometry Further plan of care as per clinical response of the patient
[2021-01-12 11:24] LABS: Glucose,Whole Blood 124 mg/dL (75-99)
[2021-01-12] MEDS: INSULIN ASPART (NovoLOG) 100 UNIT/ML VIAL SQ SCH ×3 (11:24→21:59)
--- NOTE | 2021-01-12 12:09 | P.PN ---
Subjective Progress Note Date: 01/12/21 Principal diagnosis: Coronary artery disease with left main disease, non-ST elevated myocardial infarction this admission. Past medical history significant for atrial flutter, hypertension, COPD, obstructive sleep apnea without CPAP use, status post uvulectomy, previous tobacco dependence, recent pneumonia, GI bleed, anxiety/depression, PTSD, marijuana use, obesity and chronic pain. POD #2 coronary artery bypass grafting surgery 2, with his left internal mammary artery to left anterior descending coronary artery and his left radial artery off the aorta to the intermediate coronary artery. Exclusion of the left atrial appendage using a 40 mm Atriclip. Endoscopic harvesting of the left radial artery and endoscopic harvesting of the left greater saphenous vein from just below the knee to the groin. Intraoperative transesophageal echocardiogram. Postoperative acute blood loss anemia, expected due to hemodilution. The patient is seen in follow-up today 01/12/2021 at his bedside in the intensive care unit. Currently he is lying in bed, is awake, alert and oriented 3. This morning he continues complaining of some surgical type pain to his chest tube insertion sites draining his pain 10 out of 10 on the pain scale and denies any complaints of shortness of breath. Oxygen saturations are 97% on room air and he is achieving 1000 mL on his incentive spirometry with encouragement. Right IJ cordis remains in place with continuous CVP monitoring, current CVP pressures 6 mmHg. Mediastinal and left pleural chest tubes remain in place to low continuous wall suction -20 cm H2O. No air leak is present. Left pleural chest tube draining thin serosanguineous drainage with 10 mL output in the last 8 hours and 251 L output in the last 24 hours. Mediastinal chest tubes draining thin serosanguineous drainage with 95 mL output in the last 8 hours and 1020 mL output in the last 24 hours. His blood pressure is currently 98/54 with a map of 68 mmHg, he remains hemodynamically stable and is currently on no inotropic or pressor support. Tavera catheter remains in place for accurate I's and O's with 240 mL output in the last 8 hours. Laboratory results this morning show a WBC count 18.5, hemoglobin 8.0, hematocrit 23.1, platelets 108, BUN 35, and creatinine 1.22. He remains afebrile the last 24 hours. Objective - Vital Signs Vital signs: Vital Signs Temp 98.4 F 01/12/21 04:00 Pulse 90 01/12/21 08:01 Resp 18 01/12/21 08:00 BP 116/54 01/12/21 07:00 Pulse Ox 92 L 01/12/21 08:00 Intake & Output 01/11/21 01/12/21 01/12/21 18:59 06:59 18:59 Intake Total 1351.614 258.836 31.168 Output Total 1665 935 70 Balance -313.386 -676.164 -38.832 Weight 99 kg Intake: IV 540 256 26 0.9NS Cardiac Output 60 0.9NS pressure bag 90 36 6 Lactated Ringers 1,000 ml 390 220 20 @ 20 mls/hr IV .Q24H [facility] Rx#:[id number] Intake, IV Titration 223.614 2.836 5.168 Amount DOPamine DRIP 800 mg In 196.614 Dextrose/Water 1 250ml. bag @ 2 MCG/KG/MIN 3.488 mls/hr IV .Q24H [facility] Rx#: [id number] Insulin Regular 100 unit 2.836 5.168 In Sodium Chloride 0.9% 100 ml @ Per Protocol IV .Q0M [facility] Rx#:[id number] Nitroglycerin-D5w Pmx 50 27 mg In Dextrose/Water 1 250ml.bag @ 5 MCG/MIN 1.5 mls/hr IV .Q24H [facility] Rx#: [id number] Blood Product 588 Rc As-1 Unit 310 [id number] Rc Pheresis As-3 Unit 278 [id number] Output: Chest Tube Drainage 560 515 30 Left Pleural Chest Tube 160 70 10 Mediastinal X 2 400 445 20 Drainage 5 Left Arm 5 Urine 1100 420 40 Other: Voiding Method Indwelling Catheter Indwelling Catheter Indwelling Catheter ABP, PAP, CO, CI - Last Documented Arterial Blood Pressure 126/51 Pulmonary Artery Pressure 47/19 Cardiac Output 7.1 Cardiac Index 3.4 - Exam CONSTITUTIONAL: Laying in bed in the intensive care unit, appears comfortable, cooperative, no apparent acute distress. Complaining of surgical type pain to his chest tube insertion sites. HEENT: Neck is supple, no JVD, no lymphadenopathy. Right IJ Cordis in place and functioning. RESPIRATORY: Lungs sounds with scattered rhonchi throughout. Diminished to his bilateral bases. Respirations are symmetrical and nonlabored. Currently on room air with oxygen saturations 97%. Achieving 1000 mL on his incentive spirometry. Strong cough. CARDIOVASCULAR: Regular rhythm and rate. S1 and S2 present, negative for S3, gallop or murmur. Sternum is stable. Bedside telemetry showing normal sinus rhythm heart rate 87 BPM. Palpable peripheral pulses bilaterally, +1 edema to his bilateral lower extremities. No calf pain or tenderness noted. Heart hugger in place with patient demonstrating appropriate use with encouragement. Knee-high PATRICK hose and sequential compression devices in place to his bilateral lower extremities. GASTROINTESTINAL: Abdomen soft, nontender, nondistended. Active bowel sounds present 4 quadrants. Tolerating diet. Passing flatus. No guarding or rigidity. GENITOURINARY: Tavera present draining clear, yellow urine. Output 240 mL in the last 8 hours INTEGUMENTARY: Skin is warm and dry with no evidence of clubbing or cyanosis. Midline sternal incision clean dry and well approximated, covered with dry intact dressing. Left lower extremity EVH site well approximated without redness or drainage. Left arm radial artery harvest sites clean, dry and approximated. No drainage or redness is present. NEUROLOGIC: Cranial nerves II through XII intact. No focal deficits. MUSKULOSKELETAL: Able to move all extremities, strength equal bilaterally, generalized weakness. PSYCHIATRIC: Alert and oriented to person place and time, appropriate affect, intact judgment and insight. INVASIVE LINES AND TUBES: Mediastinal/left pleural chest tubes present and connected to low continuous wall suction, no air leaks present. Mediastinal tube with 85 mL of thin serosanguineous drainage overnight, 1020 mL output in the last 24 hours. Left pleural chest tube with 10 mL of thin serosanguineous drainage overnight, 250 mL output in the last 24 hours. Right internal jugular Cordis, right radial arterial line present. Last CVP 6 mmHg. Left arm TONI drain in place with scant thin serosanguineous drainage, 5 mL output in the last 24 hours. - Labs CBC & Chem 7: 01/12/21 04:00 01/12/21 04:00 Labs: Abnormal Lab Results - Last 24 Hours (Table) 01/09/21 01/11/21 01/11/21 Range/Units 09:56 10:02 12:16 WBC (3.8-10.6) k/uL RBC (4.30-5.90) m/uL Hgb (13.0-17.5) gm/dL Hct (39.0-53.0) % RDW (11.5-15.5) % Plt Count (150-450) k/uL Neutrophils # (1.3-7.7) k/uL Lymphocytes # (1.0-4.8) k/uL Monocytes # (0-1.0) k/uL BUN (9-20) mg/dL Glucose (74-99) mg/dL POC Glucose (mg/dL) 115 H 113 H (75-99) mg/dL Calcium (8.4-10.2) mg/dL Alkaline Phosphatase (38-126) U/L Total Protein (6.3-8.2) g/dL Albumin (3.5-5.0) g/dL Crossmatch See Detail 01/11/21 01/11/21 01/11/21 Range/Units 14:09 17:15 18:19 WBC (3.8-10.6) k/uL RBC 3.03 L (4.30-5.90) m/uL Hgb 9.2 L D (13.0-17.5) gm/dL Hct 27.4 L (39.0-53.0) % RDW 15.6 H (11.5-15.5) % Plt Count 97 L (150-450) k/uL Neutrophils # (1.3-7.7) k/uL Lymphocytes # (1.0-4.8) k/uL Monocytes # (0-1.0) k/uL BUN (9-20) mg/dL Glucose (74-99) mg/dL POC Glucose (mg/dL) 101 H 102 H (75-99) mg/dL Calcium (8.4-10.2) mg/dL Alkaline Phosphatase (38-126) U/L Total Protein (6.3-8.2) g/dL Albumin (3.5-5.0) g/dL Crossmatch 01/11/21 01/11/21 01/12/21 Range/Units 19:49 23:39 00:59 WBC (3.8-10.6) k/uL RBC (4.30-5.90) m/uL Hgb (13.0-17.5) gm/dL Hct (39.0-53.0) % RDW (11.5-15.5) % Plt Count (150-450) k/uL Neutrophils # (1.3-7.7) k/uL Lymphocytes # (1.0-4.8) k/uL Monocytes # (0-1.0) k/uL BUN (9-20) mg/dL Glucose (74-99) mg/dL POC Glucose (mg/dL) 123 H 142 H 119 H (75-99) mg/dL Calcium (8.4-10.2) mg/dL Alkaline Phosphatase (38-126) U/L Total Protein (6.3-8.2) g/dL Albumin (3.5-5.0) g/dL Crossmatch 01/12/21 01/12/21 01/12/21 Range/Units 01:58 03:01 04:00 WBC 18.5 H (3.8-10.6) k/uL RBC 2.57 L (4.30-5.90) m/uL Hgb 8.0 L (13.0-17.5) gm/dL Hct 23.1 L (39.0-53.0) % RDW (11.5-15.5) % Plt Count 108 L (150-450) k/uL Neutrophils # 16.4 H (1.3-7.7) k/uL Lymphocytes # 0.7 L (1.0-4.8) k/uL Monocytes # 1.1 H (0-1.0) k/uL BUN (9-20) mg/dL Glucose (74-99) mg/dL POC Glucose (mg/dL) 119 H 132 H (75-99) mg/dL Calcium (8.4-10.2) mg/dL Alkaline Phosphatase (38-126) U/L Total Protein (6.3-8.2) g/dL Albumin (3.5-5.0) g/dL Crossmatch 01/12/21 01/12/21 01/12/21 Range/Units 04:00 04:03 06:34 WBC (3.8-10.6) k/uL RBC (4.30-5.90) m/uL Hgb (13.0-17.5) gm/dL Hct (39.0-53.0) % RDW (11.5-15.5) % Plt Count (150-450) k/uL Neutrophils # (1.3-7.7) k/uL Lymphocytes # (1.0-4.8) k/uL Monocytes # (0-1.0) k/uL BUN 35 H (9-20) mg/dL Glucose 123 H (74-99) mg/dL POC Glucose (mg/dL) 128 H 132 H (75-99) mg/dL Calcium 7.5 L (8.4-10.2) mg/dL Alkaline Phosphatase 36 L (38-126) U/L Total Protein 4.0 L (6.3-8.2) g/dL Albumin 2.5 L (3.5-5.0) g/dL Crossmatch 01/12/21 Range/Units 08:02 WBC (3.8-10.6) k/uL RBC (4.30-5.90) m/uL Hgb (13.0-17.5) gm/dL Hct (39.0-53.0) % RDW (11.5-15.5) % Plt Count (150-450) k/uL Neutrophils # (1.3-7.7) k/uL Lymphocytes # (1.0-4.8) k/uL Monocytes # (0-1.0) k/uL BUN (9-20) mg/dL Glucose (74-99) mg/dL POC Glucose (mg/dL) 127 H (75-99) mg/dL Calcium (8.4-10.2) mg/dL Alkaline Phosphatase (38-126) U/L Total Protein (6.3-8.2) g/dL Albumin (3.5-5.0) g/dL Crossmatch Assessment and Plan Assessment: 1. Coronary artery disease with left main disease status post 2 vessel coronary artery bypass grafting surgery 2. Non-ST elevated myocardial infarction this admission 3. Acute purulent tracheobronchitis without evidence of pneumonia at this admission, which was treated preoperatively with ceftriaxone and IV Solu-Medrol 4. History of atrial flutter, currently sinus rhythm on bedside telemetry, status post exclusion of his left atrial appendage with a 40 mm Atriclip 5. Hypertension 6. COPD, FEV1 80% of predicted on bedside spirometry completed January 02/2021 7. Obstructive sleep apnea without CPAP use, status post uvulectomy 8. Previous tobacco dependence 9. Elevated lactic acid present on admission at 5.8, resolved 10. History of GI bleed, with history of bowel resection 11. Anxiety/depression, PTSD, bipolar disorder 12. Marijuana use 13. Chronic pain syndrome 14. Obesity 15. History of benign prostatic hypertrophy 16. Postoperative acute blood loss anemia, expected due to hemodilution Plan: 1. Continue aspirin, statin, Plavix. We will start metoprolol 25 mg by mouth twice a day. 2. Currently on room air with oxygen saturation is 97%. Encourage incentive spirometry use 10 times every hour while awake. Bronchodilators per pulmonology. 3. Increase activity, ambulate as tolerated. PT/OT/cardiac rehab following. 4. Will monitor daily labs and chest x-rays. Electrolyte replacement per protocol. 5. GI/DVT prophylaxis. 6. Pain control with current medication regimen. Toradol 15 mg IV every 6 hours added yesterday 01/11/2021 additional pain control. 7. Insulin management per primary care service. Patient is not diabetic, preoperative hemoglobin A1c 5.0% 8. Discontinue right IJ Cordis . 9. Continue mediastinal and left pleural chest tubes, arterial line for another 24 hours. 10. Discontinue tavera catheter. Continue to record strict accurate intake and output. Daily weights 11. Continue Norvasc 2.5 mg by mouth mouth daily, hold for MAP less than 70 mm/hg for radial artery spasm prophylaxis. Please do not discontinue calcium channel emerald without checking with cardiothoracic surgery prior. 12. Check cortisol level. 13. Continue Mucomyst 200 mg inhalation 3 times a day. 14. More recommendations to follow based on patient's clinical course. Time with Patient: Greater than 30
[2021-01-12] MEDS: METOPROLOL TARTRATE 25 MG TAB PO SCH ×2 (13:26→22:04)
[2021-01-12] MEDS: amLODIPine 2.5 MG TAB PO SCH (16:00)
--- NOTE | 2021-01-12 16:12 | P.PN ---
Subjective Progress Note Date: 01/12/21 Principal diagnosis: Acute CT with elevated troponin Significant coronary artery disease involving left main COPD with acute exacerbation End-stage lung disease oxygen-dependent intermittent prednisone dependent 65-year-old male with end-stage severe COPD chronic history of smoking and nicotine use also has history of recurrent pneumonia and states intermittent prednisone-dependent, oxygen dependent COPDpatient was recently hospitalized for left-sided pneumonia tracheobronchitis had a bronchial lavage and washing which she tolerated well discharged in stable condition 2 days prior to hospitalization demented and chest pain, patient admitted into the hospital, recent echo revealed ejection fraction of 55%with trace MR and TR, patient was noted to have elevated troponins underwent cardiac cath angiogram found to have left main disease, patient is being eval for bypass surgery, patient has ongoing shortness of breath sputum production and wheezing has been on broad-spectrum antibiotics cardiothoracic surgery is evaluating 01/11/2021 Patient is seen and evaluated at bedside in ICU; complaining of uncontrolled pain; denies any complaints of shortness of breath. Remains on dopamine and Cardizem drip remains infusing at 5 mg per hour for radial artery spasm prophylaxis. He was successively extubated early this morning at 12:33 AM, and is currently on 2 L nasal cannula with oxygen saturations 97%. Laboratory results this morning show a WBC count of 12.8, hemoglobin 6.9, hematocrit 20.9, platelets 169, BUN 34, and creatinine 1.03. 01/12/2021, patient is seen and evaluated in ICU; awake and alert; continues to complain of uncontrolled pain but seems to be in no acute distress and comfortable Remains on 2 L oxygen breathing comfortably, left-sided chest tube along with mediastinal tube, both draining serosanguineous fluid chest x-ray from earlier this morning reviewed and compared continue showed low volumes with the drains stable no pneumothorax is seen stable internal jugular introducer sheath, hemoglobin stable at 8, white cell count is 18,500, BUN/creatinine 35 and 1.22 sugars stable 127, patient is currently on amiodarone drip intermittently for A. fib RVR, off of dopamine; patient will continue to be monitored in ICU until stable Objective - Vital Signs Vital signs: Vital Signs Temp 98.4 F 01/12/21 04:00 Pulse 90 01/12/21 09:00 Resp 19 01/12/21 09:00 BP 126/70 01/12/21 09:00 Pulse Ox 93 L 01/12/21 09:00 Intake & Output 01/11/21 01/12/21 01/12/21 18:59 06:59 18:59 Intake Total 1351.614 258.836 57.168 Output Total 1665 935 165 Balance -313.386 -676.164 -107.832 Weight 99 kg Intake: IV 540 256 52 0.9NS Cardiac Output 60 0.9NS pressure bag 90 36 12 Lactated Ringers 1,000 ml 390 220 40 @ 20 mls/hr IV .Q24H [facility] Rx#:[id number] Intake, IV Titration 223.614 2.836 5.168 Amount DOPamine DRIP 800 mg In 196.614 Dextrose/Water 1 250ml. bag @ 2 MCG/KG/MIN 3.488 mls/hr IV .Q24H [facility] Rx#: [id number] Insulin Regular 100 unit 2.836 5.168 In Sodium Chloride 0.9% 100 ml @ Per Protocol IV .Q0M [facility] Rx#:[id number] Nitroglycerin-D5w Pmx 50 27 mg In Dextrose/Water 1 250ml.bag @ 5 MCG/MIN 1.5 mls/hr IV .Q24H [facility] Rx#: [id number] Blood Product 588 Rc As-1 Unit 310 [id number] Rc Pheresis As-3 Unit 278 [id number] Output: Chest Tube Drainage 560 515 80 Left Pleural Chest Tube 160 70 30 Mediastinal X 2 400 445 50 Drainage 5 Left Arm 5 Urine 1100 420 85 Other: Voiding Method Indwelling Catheter Indwelling Catheter Indwelling Catheter ABP, PAP, CO, CI - Last Documented Arterial Blood Pressure 140/61 Pulmonary Artery Pressure 47/19 Cardiac Output 7.1 Cardiac Index 3.4 - Exam - Constitutional General appearance: Present: average body habitus, cooperative, no acute distress - EENT Eyes: Present: anicteric sclerae, EOMI, PERRLA, normal appearance ENT: Present: hearing grossly normal, normal oropharynx Ears: bilateral: normal - Neck Neck: Present: normal ROM. Absent: lymphadenopathy, rigidity, thyromegaly Carotids: negative: bruit present Thyroid: bilateral: normal size, negative: enlarged, nodule - Respiratory Respiratory: bilateral: CTA, negative: rales, rhonchi, wheezing - Cardiovascular Rhythm: regular Heart sounds: normal: S1, S2 Abnormal Heart Sounds: Absent: systolic murmur, diastolic murmur - Gastrointestinal General gastrointestinal: Present: normal bowel sounds, soft. Absent: distended, organomegaly, tenderness - Genitourinary Genitourinary Comment(s): deferred - Integumentary Integumentary: Present: normal turgor. Absent: jaundiced, rash, ulcer - Neurologic Neurologic: Present: CNII-XII intact. Absent: focal deficits - Musculoskeletal Musculoskeletal: Present: gait normal, strength equal bilaterally - Psychiatric Psychiatric: Present: A&O x's 3, appropriate affect, intact judgment & insight - Labs CBC & Chem 7: 01/12/21 04:00 01/12/21 04:00 Labs: Abnormal Lab Results - Last 24 Hours (Table) 01/09/21 01/11/21 01/11/21 Range/Units 09:56 10:02 12:16 WBC (3.8-10.6) k/uL RBC (4.30-5.90) m/uL Hgb (13.0-17.5) gm/dL Hct (39.0-53.0) % RDW (11.5-15.5) % Plt Count (150-450) k/uL Neutrophils # (1.3-7.7) k/uL Lymphocytes # (1.0-4.8) k/uL Monocytes # (0-1.0) k/uL BUN (9-20) mg/dL Glucose (74-99) mg/dL POC Glucose (mg/dL) 115 H 113 H (75-99) mg/dL Calcium (8.4-10.2) mg/dL Alkaline Phosphatase (38-126) U/L Total Protein (6.3-8.2) g/dL Albumin (3.5-5.0) g/dL Crossmatch See Detail 01/11/21 01/11/21 01/11/21 Range/Units 14:09 17:15 18:19 WBC (3.8-10.6) k/uL RBC 3.03 L (4.30-5.90) m/uL Hgb 9.2 L D (13.0-17.5) gm/dL Hct 27.4 L (39.0-53.0) % RDW 15.6 H (11.5-15.5) % Plt Count 97 L (150-450) k/uL Neutrophils # (1.3-7.7) k/uL Lymphocytes # (1.0-4.8) k/uL Monocytes # (0-1.0) k/uL BUN (9-20) mg/dL Glucose (74-99) mg/dL POC Glucose (mg/dL) 101 H 102 H (75-99) mg/dL Calcium (8.4-10.2) mg/dL Alkaline Phosphatase (38-126) U/L Total Protein (6.3-8.2) g/dL Albumin (3.5-5.0) g/dL Crossmatch 01/11/21 01/11/21 01/12/21 Range/Units 19:49 23:39 00:59 WBC (3.8-10.6) k/uL RBC (4.30-5.90) m/uL Hgb (13.0-17.5) gm/dL Hct (39.0-53.0) % RDW (11.5-15.5) % Plt Count (150-450) k/uL Neutrophils # (1.3-7.7) k/uL Lymphocytes # (1.0-4.8) k/uL Monocytes # (0-1.0) k/uL BUN (9-20) mg/dL Glucose (74-99) mg/dL POC Glucose (mg/dL) 123 H 142 H 119 H (75-99) mg/dL Calcium (8.4-10.2) mg/dL Alkaline Phosphatase (38-126) U/L Total Protein (6.3-8.2) g/dL Albumin (3.5-5.0) g/dL Crossmatch 01/12/21 01/12/21 01/12/21 Range/Units 01:58 03:01 04:00 WBC 18.5 H (3.8-10.6) k/uL RBC 2.57 L (4.30-5.90) m/uL Hgb 8.0 L (13.0-17.5) gm/dL Hct 23.1 L (39.0-53.0) % RDW (11.5-15.5) % Plt Count 108 L (150-450) k/uL Neutrophils # 16.4 H (1.3-7.7) k/uL Lymphocytes # 0.7 L (1.0-4.8) k/uL Monocytes # 1.1 H (0-1.0) k/uL BUN (9-20) mg/dL Glucose (74-99) mg/dL POC Glucose (mg/dL) 119 H 132 H (75-99) mg/dL Calcium (8.4-10.2) mg/dL Alkaline Phosphatase (38-126) U/L Total Protein (6.3-8.2) g/dL Albumin (3.5-5.0) g/dL Crossmatch 01/12/21 01/12/21 01/12/21 Range/Units 04:00 04:03 06:34 WBC (3.8-10.6) k/uL RBC (4.30-5.90) m/uL Hgb (13.0-17.5) gm/dL Hct (39.0-53.0) % RDW (11.5-15.5) % Plt Count (150-450) k/uL Neutrophils # (1.3-7.7) k/uL Lymphocytes # (1.0-4.8) k/uL Monocytes # (0-1.0) k/uL BUN 35 H (9-20) mg/dL Glucose 123 H (74-99) mg/dL POC Glucose (mg/dL) 128 H 132 H (75-99) mg/dL Calcium 7.5 L (8.4-10.2) mg/dL Alkaline Phosphatase 36 L (38-126) U/L Total Protein 4.0 L (6.3-8.2) g/dL Albumin 2.5 L (3.5-5.0) g/dL Crossmatch 01/12/21 Range/Units 08:02 WBC (3.8-10.6) k/uL RBC (4.30-5.90) m/uL Hgb (13.0-17.5) gm/dL Hct (39.0-53.0) % RDW (11.5-15.5) % Plt Count (150-450) k/uL Neutrophils # (1.3-7.7) k/uL Lymphocytes # (1.0-4.8) k/uL Monocytes # (0-1.0) k/uL BUN (9-20) mg/dL Glucose (74-99) mg/dL POC Glucose (mg/dL) 127 H (75-99) mg/dL Calcium (8.4-10.2) mg/dL Alkaline Phosphatase (38-126) U/L Total Protein (6.3-8.2) g/dL Albumin (3.5-5.0) g/dL Crossmatch Assessment and Plan Assessment: 1. Significant coronary artery disease involving left main - Cardiothoracic surgery is following and patient is scheduled for coronary artery bypass surgery later on today 2. Acute CT with elevated troponin; status post cardiac catheterization which revealed significant coronary artery disease involving left main; patient scheduled for CABG today 3. End-stage lung disease oxygen-dependent intermittent prednisone dependent/acute exacerbation - Pulmonary is following and recommending to continue with bronchodilator and steroid nebulizer therapy, continue with current antibiotics and incentive spirometry - Currently on IV steroids with plans to taper once stable 4. Ongoing chest pain likely related to angina and coronary artery disease 5. Sleep disorder breathing and sleep apnea status post UPPP patient refused the CPAP machine multiple times in the past 6. History of intermittent atrial flutter; patient is currently on IV amiodarone infusion; continue with aspirin 7. Hyperlipidemia; Lipitor 40 mg by mouth daily at bedtime 8. Depression/anxiety; continue with current dose of Wellbutrin and BuSpar DVT prophylaxis; SCDs/subcu heparin CODE STATUS; full code
[2021-01-12 16:50] LABS: Glucose,Whole Blood 147 mg/dL (75-99)
[2021-01-12 21:54] LABS: Glucose,Whole Blood 133 mg/dL (75-99)
[2021-01-12] MEDS: SENNOSIDES-DOCUSATE SODIUM 1 EACH TAB PO SCH (22:03)
[2021-01-13] MEDS: HYDROcodone/APAP 5-325MG 1 EACH TAB PO PRN ×6 (02:06→21:06)
[2021-01-13 04:05] LABS: Basophils % (A) 0 %; Eosinophils # (A) 0.1 k/uL (0-0.7); Eosinophils % (A) 1 %; Lymphocytes # (A) 0.8 k/uL (1.0-4.8); Lymphocytes % (A) 5 %; MCH 32.5 pg (25.0-35.0); MCHC 34.7 g/dL (31.0-37.0); MCV 93.8 fL (80.0-100.0); Mean Platelet Volume 7.7; Monocytes # (A) 0.9 k/uL (0-1.0); Monocytes % (A) 6 %; Neutrophils # (A) 12.1 k/uL (1.3-7.7); Neutrophils % (A) 86 %; RDW 15.8 % (11.5-15.5); WBC 14.1 k/uL (3.8-10.6)
[2021-01-13 04:13] LABS: HGB 6.8 gm/dL (13.0-17.5)
[2021-01-13 04:14] LABS: HCT 19.7 % (39.0-53.0)
[2021-01-13 04:15] LABS: Platelet Count 91 k/uL (150-450)
[2021-01-13 04:28] LABS: Albumin 2.6 g/dL (3.5-5.0); Potassium 4.1 mmol/L (3.5-5.1); Total Bilirubin 0.7 mg/dL (0.2-1.3); Total Protein 4.3 g/dL (6.3-8.2)
[2021-01-13] MEDS: INSULIN ASPART (NovoLOG) 100 UNIT/ML VIAL SQ SCH ×4 (06:52→21:07)
[2021-01-13 06:53] LABS: Glucose,Whole Blood 129 mg/dL (75-99)
[2021-01-13] MEDS: KETOROLAC 15 MG/ML 1 ML VIAL IVP SCH ×4 (06:55→23:54)
[2021-01-13] MEDS: PANTOPRAZOLE 40 MG TABLET PO SCH (06:55)
--- NOTE | 2021-01-13 07:30 | XR ---
EXAMINATION TYPE: XR chest 1V portable DATE OF EXAM: 01/13/2021 CLINICAL HISTORY: Difficulty breathing progress study. Postoperative cardiac surgery. TECHNIQUE: Single AP portable semiupright view of the chest is obtained. COMPARISON: Chest x-ray from one day earlier older studies. FINDINGS: Persistent sternal wires along with sagittal clips and left atrial appendage clip. 2 media stinal drainage catheters and left basilar chest tube redemonstrated. Adjacent left subcutaneous emph ysema shows continued resolution or improvement. Interval removal of right internal jugular cordis sh eath. Persistent low lung volumes and cardiomegaly with left greater than right bibasilar opacities. No pne umothorax seen bilaterally. Osseous structures are intact. IMPRESSION: Low lung volumes and cardiomegaly redemonstrated. Persistent left greater than right biba silar acute infiltrate and/or atelectasis. Right basilar findings improved from one day earlier. Left basilar findings stable.
[2021-01-13] MEDS: FORMOTEROL FUMARATE 20 MCG/2 ML NEBU INHALATION SCH ×2 (08:05→19:31)
[2021-01-13] MEDS: BUDESONIDE 1 MG/2 ML NEBU INHALATION SCH ×2 (08:05→19:31)
[2021-01-13] MEDS: IPRATROPIUM-ALBUTEROL 3 ML NEB INHALATION SCH ×4 (08:05→19:31)
[2021-01-13] MEDS: ACETYLCYSTEINE 800 MG/4 ML VIAL INHALATION SCH ×3 (08:05→19:28)
[2021-01-13] MEDS: CLOPIDOGREL 75 MG TAB PO SCH (08:48)
[2021-01-13] MEDS: BENZOCAINE/MENTHOL LOZENG 1 EACH LOZENGE MUCOUS MEM PRN (08:48)
[2021-01-13] MEDS: buPROPion XL 300 MG TAB.ER.24H PO SCH (08:48)
[2021-01-13] MEDS: ATORVASTATIN 40 MG TAB PO SCH (08:48)
[2021-01-13] MEDS: amLODIPine 2.5 MG TAB PO SCH (08:48)
[2021-01-13] MEDS: DULoxetine HCL 60 MG CAPSULE.DR PO SCH (08:48)
[2021-01-13] MEDS: allopurinoL 300 MG TAB PO SCH (08:48)
[2021-01-13] MEDS: MONTELUKAST 10 MG TAB PO SCH (08:48)
[2021-01-13] MEDS: FERROUS SULFATE 325 MG TAB PO SCH (08:48)
[2021-01-13] MEDS: busPIRone HCl 5 MG TAB PO SCH ×3 (08:49→21:11)
[2021-01-13] MEDS: ASPIRIN 81 MG PO SCH (08:49)
[2021-01-13] MEDS: TAMSULOSIN 0.4 MG CAP.ER.24H PO SCH (08:49)
[2021-01-13] MEDS: FINASTERIDE 5 MG TAB PO SCH (08:49)
[2021-01-13] MEDS: METOPROLOL TARTRATE 25 MG TAB PO SCH ×2 (08:49→21:06)
[2021-01-13] MEDS: FONDAPARINUX 2.5 MG/0.5 ML SYRINGE SQ SCH (08:50)
--- NOTE | 2021-01-13 10:14 | P.PN ---
Subjective Progress Note Date: 01/13/21 Principal diagnosis: Coronary artery disease with left main disease, non-STEMI this admission, acute purulent tracheobronchitis without evidence of pneumonia. Previous medical his tory of atrial flutter, hypertension, COPD, obstructive sleep apnea without CPAP use, status post uvulectomy, previous tobacco dependence, recent pneumonia, GI bleed, anxiety/depression, PTSD, marijuana use, chronic pain POD #3 coronary artery bypass grafting 2 with the left internal mammary artery to the left anterior descending artery, left radial artery off the aorta to the intermediate coronary artery, exclusion of the left atrial appendage using a 40 mm AtriClip, endoscopic harvesting of the left radial artery, endoscopic harvesting of the left greater saphenous vein from below the knee to the groin, intraoperative transesophageal echocardiogram Postoperative acute blood loss anemia and thrombocytopenia, expected given hemodilution The patient is currently sitting up and recliner in the ICU in no acute distress. States pain is mostly controlled on current medication regimen. R emains in normal sinus rhythm, blood pressure borderline hypotensive with systolic pressure in the 90s to low 100s and mean pressures in the 60s and 70s. Mediastinal and left pleural chest tube remain. Patient's hemoglobin 6.8 this morning, will receive 1 unit packed red blood cells. He has been ambulatory with much assistance, needs encouragement for increased activity. Oxygenating well on 2 L nasal cannula, achieving 750 mL on his incentive spirometry. No other new concerns. Objective - Vital Signs Vital signs: Vital Signs Temp 98.3 F 01/13/21 09:12 Pulse 81 01/13/21 09:12 Resp 18 01/13/21 09:12 BP 108/64 01/13/21 09:12 Pulse Ox 99 01/13/21 09:12 Intake & Output 01/12/21 01/13/21 01/13/21 18:59 06:59 18:59 Intake Total 385.272 623 0 Output Total 810 695 10 Balance -424.728 -72 -10 Weight 95.7 kg Intake: IV 228 23 0.9NS pressure bag 48 3 Lactated Ringers 1,000 ml 180 20 @ 20 mls/hr IV .Q24H [facility] Rx#:[id number] Intake, IV Titration 7.272 Amount Insulin Regular 100 unit 7.272 In Sodium Chloride 0.9% 100 ml @ Per Protocol IV .Q0M [facility] Rx#:[id number] Oral 150 600 Blood Product 0 Rc As-1 Unit 0 [id number] Output: Chest Tube Drainage 340 470 10 Left Pleural Chest Tube 170 225 10 Mediastinal X 2 170 245 Urine 470 225 0 Other: Voiding Method Indwelling Catheter Urinal Urinal ABP, PAP, CO, CI - Last Documented Arterial Blood Pressure 119/53 Pulmonary Artery Pressure 47/19 Cardiac Output 7.1 Cardiac Index 3.4 - Exam CONSTITUTIONAL: Appears comfortable, cooperative, no acute distress RESPIRATORY: Lungs sounds diminished bilaterally. Respirations even, nonlabored. Currently on 2 L nasal cannula with oxygen saturation 99%. Able to achieve 750 mL on incentive spirometry. Strong cough. CARDIOVASCULAR: S1, S2 present. Regular rate and rhythm, sinus rhythm on telemetry. Sternum stable. Palpable peripheral pulses bilaterally. Generalized edema present. No calf pain or tenderness noted. Heart hugger in place with patient demonstrating appropriate use. Antiembolism stockings, SCDs present. GASTROINTESTINAL: Abdomen soft, nontender, nondistended. Active bowel sounds present 4 quadrants. Tolerating clear liquid diet. Positive flatus, negative bowel movement. GENITOURINARY: Continues to void INTEGUMENTARY: Skin is warm and dry with evidence of good perfusion. Anterior chest incision well approximated and covered with dry intact dressing. EVH site well approximated without redness or drainage. NEUROLOGIC: Cranial nerves II through XII intact MUSKULOSKELETAL: Able to move all extremities, strength equal bilaterally, gait normal PSYCHIATRIC: Alert and oriented to person place and time, anxious at times, tearful at times wanting us to "take it easy on him" INVASIVE LINES AND TUBES: Mediastinal/left pleural chest tubes present and connected to wall suction, no air leaks present. Mediastinal tube with 170 mL serosanguineous drainage overnight, 330 mL in the last 24 hours. Left pleural chest tube with 180 mL serosanguineous drainage overnight, 400 mL in the last 24 hours. - Allied health notes Allied health notes reviewed: nursing - Labs CBC & Chem 7: 01/13/21 02:52 01/13/21 02:52 Labs: Abnormal Lab Results - Last 24 Hours (Table) 01/12/21 01/12/21 01/12/21 Range/Units 11:22 16:48 21:53 WBC (3.8-10.6) k/uL RBC (4.30-5.90) m/uL Hgb (13.0-17.5) gm/dL Hct (39.0-53.0) % RDW (11.5-15.5) % Plt Count (150-450) k/uL Neutrophils # (1.3-7.7) k/uL Lymphocytes # (1.0-4.8) k/uL Sodium (137-145) mmol/L BUN (9-20) mg/dL Glucose (74-99) mg/dL POC Glucose (mg/dL) 124 H 147 H 133 H (75-99) mg/dL Calcium (8.4-10.2) mg/dL Total Protein (6.3-8.2) g/dL Albumin (3.5-5.0) g/dL Crossmatch 01/13/21 01/13/21 01/13/21 Range/Units 02:52 02:52 05:14 WBC 14.1 H (3.8-10.6) k/uL RBC 2.10 L (4.30-5.90) m/uL Hgb 6.8 L* (13.0-17.5) gm/dL Hct 19.7 L* (39.0-53.0) % RDW 15.8 H (11.5-15.5) % Plt Count 91 L (150-450) k/uL Neutrophils # 12.1 H (1.3-7.7) k/uL Lymphocytes # 0.8 L (1.0-4.8) k/uL Sodium 135 L (137-145) mmol/L BUN 40 H (9-20) mg/dL Glucose 106 H (74-99) mg/dL POC Glucose (mg/dL) (75-99) mg/dL Calcium 8.0 L (8.4-10.2) mg/dL Total Protein 4.3 L (6.3-8.2) g/dL Albumin 2.6 L (3.5-5.0) g/dL Crossmatch See Detail 01/13/21 Range/Units 06:42 WBC (3.8-10.6) k/uL RBC (4.30-5.90) m/uL Hgb (13.0-17.5) gm/dL Hct (39.0-53.0) % RDW (11.5-15.5) % Plt Count (150-450) k/uL Neutrophils # (1.3-7.7) k/uL Lymphocytes # (1.0-4.8) k/uL Sodium (137-145) mmol/L BUN (9-20) mg/dL Glucose (74-99) mg/dL POC Glucose (mg/dL) 129 H (75-99) mg/dL Calcium (8.4-10.2) mg/dL Total Protein (6.3-8.2) g/dL Albumin (3.5-5.0) g/dL Crossmatch - Imaging and Cardiology Chest x-ray: report reviewed, image reviewed Assessment and Plan Assessment: 1. Coronary artery disease with left main disease, status post 2 vessel CABG 2. Non-STEMI this admission 3. Acute purulent tracheobronchitis without evidence of pneumonia this admission, treated preoperatively with ceftriaxone and IV Solu-Medrol 4. History of atrial flutter, currently sinus rhythm 5. Hypertension 6. COPD, FEV1 80% of predicted on bedside spirometry completed January 02 7. Obstructive sleep apnea without CPAP use, status post uvulectomy 8. Previous tobacco dependence 9. Recent pneumonia 10. GI bleed 11. Anxiety/depression, PTSD 12. Marijuana use 13. Chronic pain 14. Obesity 15. History of BPH 16. Postoperative acute blood loss anemia and thrombocytopenia, expected Plan: 1. Continue to maximize medical therapy with low-dose aspirin, statin, Plavix, beta emerald therapy. Continue Norvasc for radial artery spasm. 2. Do not discontinue CCB without discussing with cardiac surgery 3. Wean O2 as tolerated. Encourage incentive spirometry use 10 times every hour while awake. Bronchodilators per pulmonology 4. Increase activity, ambulate as tolerated. PT/OT/cardiac rehab following 5. GI/DVT prophylaxis 6. Will monitor daily labs and x-rays. Electrolyte replacement per protocol. Will receive 1 unit packed red blood cells today 7. Pain controlled current medication regimen 8. Insulin management per primary care service. Patient is not diabetic, preoperative hemoglobin A1c 5% 9. Will continue mediastinal and left pleural chest tubes for another 24 hours due to output 10. Strict accurate intake and output, daily weights 11. Will place transfer orders for 3 S. cardiac stepdown unit, May transfer when bed available 12. More recommendations to follow Time with Patient: Greater than 30
[2021-01-13 10:24] VITALS: BMI 30.2
[2021-01-13 11:43] LABS: Glucose,Whole Blood 112 mg/dL (75-99)
--- NOTE | 2021-01-13 11:50 | P.PN ---
Subjective Progress Note Date: 01/13/21 Principal diagnosis: significant coronary artery disease involving left main Acute DE with elevated troponin End-stage lung disease oxygen-dependent intermittent prednisone dependent COPD with acute exacerbation Recent left-sided pneumonia Sleep disorder breathing and sleep apnea status post UPPP patient refused the CPAP machine multiple times in the past Morbid obesity History of intermittent atrial flutter 01/13/2021, patient seen eval examined during the rounds labs reviewed medications reviewed care plan discussed, respiratory status remains stable on 2 L oxygen off and on saturation are low 90s, patient complaining of chest pain, patient has a left-sided chest tube and mediastinal chest you've draining serosanguineous fluid with a bloody appearance, labs reviewed hemoglobin is down to 6.8 patient to get unit of packed RBC white cell count is decreased to 1 4,000, 01/12/2021, patient is awake and alert on 2 L oxygen breathing comfortably, patient is getting new IV lines, patient is still have the left-sided chest tube along with mediastinal tube, both draining serosanguineous fluid, respiratory status marginal but stable hemodynamic status stable, patient is awake and alert but very anxious, Concord-Leanne has been removed, chest x-ray from earlier this morning reviewed and compared continue showed low volumes with the drains stable no pneumothorax is seen stable internal jugular introducer sheath, hemoglobin stable at 8, white cell count is 18,500, BUN/creatinine 35 and 1.22 sugars stable 127, patient is on amiodarone drip intermittently for A. fib RVR, off of dopamine as well as the Precedex drip, we'll continue to monitor observe closely in ICU 01/11/2021, patient seen eval examined during the rounds labs reviewed medications reviewed, critical care time 35 minutes, successfully weaned and extubated, patient currently on 2 L, hemoglobin drop down to 6.9 patient will be transfused 1 unit of packed RBC, patient remains on dopamine, and Precedex drip, also has been on amiodarone as needed for A. fib and aflutter, patient is status post CABG 2 with LAUREANO to LAD and radial artery to PDA tolerated well, WBC count is 12,800, BUN/creatinine is 34 and 1.03, patient will be kept in ICU 01/10/2021, overall respiratory status is marginal but stable, but wheezing has improved, patient does complaining of intermittent chest pain, patient is for coronary artery bypass surgery later on today 01/09/2021, patient seen evjanae examined during the rounds sitting upright in the bed continued to complain of anxiety as well as chest pain breathing slightly improved now arterial bloods is reviewed, spirometric pending, blood cultures no growth, patient remains on IV Rocephin, chest x-ray COPD-like changes, BiPAP again offered however patient declined 01/08/2021, patient seen eval reexamined during the rounds labs reviewed medications reviewed very anxious due to anticipated surgery on Wednesday intermittent chest pain her happening, I have discussed with RN about Xanax, respiratory status slightly improved, still have cough congestion and in termittent wheezing, arterial blood gas on room air noted pH is 7.4 pCO2 46 pO2 59, patient explained about highly risk for pulmonary complication however given the severity of coronary artery disease surgery needed 01/07/2021, patient seen evjanae examined during the rounds labs reviewed medications reviewed respiratory status stable, noted that PFT and ABG not yet done discussed with RN, patient has been complaining of chest pain and tightness as well, will defer the pain medicine to primary and cardiovascular services, patient is scheduled for bypass surgery later this week 01/06/2021, patient seen and evaluated examined, patient is tentatively scheduled for triple bypass later on this week, ongoing cough congestion and chest tightness remains on breathing treatments antibiotics and IV steroids 01/04/2021, patient appears slightly better but have ongoing congestion nonproductive wet cough, patient remains on steroids bronchodilator and broad- spectrum antibiotics to optimize lung condition patient has been ordered PFT and arterial blood gases this is a 65-year-old male with end-stage severe COPD chronic history of smoking and nicotine use also has history of recurrent pneumonia and states intermittent prednisone-dependent, oxygen dependent COPDpatient was recently hospitalized for left-sided pneumonia tracheobronchitis had a bronchial lavage and washing which she tolerated well discharged in stable condition 2 days prior to hospitalization demented and chest pain, patient admitted into the hospital, recent echo revealed ejection fraction of 55%, with trace MR and TR, patient was noted to have elevated troponins underwent cardiac cath angiogram found to have left main disease, patient is being eval for bypass surgery, patient has ongoing shortness of breath sputum production and wheezing has been on broad-spectrum antibiotics cardiothoracic surgery is evaluating the patient Objective - Vital Signs Vital signs: Vital Signs Temp 98.5 F 01/13/21 10:54 Pulse 84 01/13/21 11:26 Resp 18 01/13/21 11:26 BP 94/70 01/13/21 11:00 Pulse Ox 96 01/13/21 11:00 Intake & Output 01/12/21 01/13/21 01/13/21 18:59 06:59 18:59 Intake Total 385.272 623 310 Output Total 810 695 10 Balance -424.728 -72 300 Weight 95.7 kg 95.7 kg Intake: IV 228 23 0.9NS pressure bag 48 3 Lactated Ringers 1,000 ml 180 20 @ 20 mls/hr IV .Q24H [facility] Rx#:[id number] Intake, IV Titration 7.272 Amount Insulin Regular 100 unit 7.272 In Sodium Chloride 0.9% 100 ml @ Per Protocol IV .Q0M [facility] Rx#:[id number] Oral 150 600 Blood Product 310 Rc As-1 Unit 310 [id number] Output: Chest Tube Drainage 340 470 10 Left Pleural Chest Tube 170 225 10 Mediastinal X 2 170 245 Urine 470 225 0 Other: Voiding Method Indwelling Catheter Urinal Urinal ABP, PAP, CO, CI - Last Documented Arterial Blood Pressure 119/53 Pulmonary Artery Pressure 47/19 Cardiac Output 7.1 Cardiac Index 3.4 - Exam - Constitutional General appearance: average body habitus, cooperative - Neck Neck: normal ROM Carotids: bilateral: upstroke normal Thyroid: bilateral: normal size - Respiratory Respiratory: bilateral: diminished, wheezing - Cardiovascular Rhythm: regular Heart sounds: normal: S1, S2 - Gastrointestinal General gastrointestinal: decreased bowel sounds, normal bowel sounds, soft - Integumentary Integumentary: normal turgor - Neurologic Neurologic: CNII-XII intact - Musculoskeletal Musculoskeletal: gait normal, generalized weakness, strength equal bilaterally - Psychiatric Psychiatric: A&O x's 3, appropriate affect, intact judgment & insight - Labs CBC & Chem 7: 01/13/21 02:52 01/13/21 02:52 Labs: Abnormal Lab Results - Last 24 Hours (Table) 01/12/21 01/12/21 01/13/21 Range/Units 16:48 21:53 02:52 WBC 14.1 H (3.8-10.6) k/uL RBC 2.10 L (4.30-5.90) m/uL Hgb 6.8 L* (13.0-17.5) gm/dL Hct 19.7 L* (39.0-53.0) % RDW 15.8 H (11.5-15.5) % Plt Count 91 L (150-450) k/uL Neutrophils # 12.1 H (1.3-7.7) k/uL Lymphocytes # 0.8 L (1.0-4.8) k/uL Sodium (137-145) mmol/L BUN (9-20) mg/dL Glucose (74-99) mg/dL POC Glucose (mg/dL) 147 H 133 H (75-99) mg/dL Calcium (8.4-10.2) mg/dL Total Protein (6.3-8.2) g/dL Albumin (3.5-5.0) g/dL Crossmatch 01/13/21 01/13/21 01/13/21 Range/Units 02:52 05:14 06:42 WBC (3.8-10.6) k/uL RBC (4.30-5.90) m/uL Hgb (13.0-17.5) gm/dL Hct (39.0-53.0) % RDW (11.5-15.5) % Plt Count (150-450) k/uL Neutrophils # (1.3-7.7) k/uL Lymphocytes # (1.0-4.8) k/uL Sodium 135 L (137-145) mmol/L BUN 40 H (9-20) mg/dL Glucose 106 H (74-99) mg/dL POC Glucose (mg/dL) 129 H (75-99) mg/dL Calcium 8.0 L (8.4-10.2) mg/dL Total Protein 4.3 L (6.3-8.2) g/dL Albumin 2.6 L (3.5-5.0) g/dL Crossmatch See Detail 01/13/21 Range/Units 11:42 WBC (3.8-10.6) k/uL RBC (4.30-5.90) m/uL Hgb (13.0-17.5) gm/dL Hct (39.0-53.0) % RDW (11.5-15.5) % Plt Count (150-450) k/uL Neutrophils # (1.3-7.7) k/uL Lymphocytes # (1.0-4.8) k/uL Sodium (137-145) mmol/L BUN (9-20) mg/dL Glucose (74-99) mg/dL POC Glucose (mg/dL) 112 H (75-99) mg/dL Calcium (8.4-10.2) mg/dL Total Protein (6.3-8.2) g/dL Albumin (3.5-5.0) g/dL Crossmatch Assessment and Plan Assessment: Acute blood loss anemia expected outcome of CABG Generalized anxiety and hypertension on dopamine as well as Precedex drip significant coronary artery disease status post CABG 2 with LAUREANO to LAD and radial artery graft to PDA Acute DE with elevated troponin End-stage lung disease oxygen-dependent intermittent prednisone dependent Ongoing chest pain likely related to angina and coronary artery disease COPD Recent left-sided pneumonia Sleep disorder breathing and sleep apnea status post UPPP patient refused the CPAP machine multiple times in the past Morbid obesity History of intermittent atrial flutter Plan: continue bronchodilator as needed Continue Precedex drip with dopamine 1 unit packed RBC transfusion if okay with thoracic surgery Chest tube removal per thoracic surgery and Concord-Leanne removed Continue deep breathing sense incentive spirometry Further plan of care as per clinical response of the patient Time with Patient: Greater than 30
--- NOTE | 2021-01-13 13:40 | P.PN ---
Subjective Patient is seen and examined sitting up in a recliner in no acute distress. He is s/p 2V bypass grafting with LAUREANO-LAD and left radial artery off the aorta to intermediate branch. He complains of feeling weak and is having pain in his chest at the incisional site. He is receiving a blood transfusion currently. Blood pressure 94/70 heart rate 84 afebrile maintaining oxygen saturation on nasal cannula. Laboratory data reviewed, WBC 14.1, hemoglobin 6.8, platelets 91, sodium 135, potassium 4.1, creatinine 1.24. Currently maintained on amlodip ine 2.5 mg daily, aspirin 81 mg daily, atorvastatin 40 mg daily, Plavix 75 mg daily and metoprolol 25 mg twice a day. GENERAL: Well-appearing, well-nourished and in no acute distress. NECK: Supple without JVD or thyromegaly. LUNGS: Breath sounds clear to auscultation bilaterally. Respiration equal and unlabored. No wheezes, rales or rhonchi. Chest tubes noted with serosanguinous drainage in the chamber. HEART: Regular rate and rhythm without murmurs, rubs or gallops. S1 and S2 heard. Heart hugger in place. Incision site with dressing in place. EXTREMITIES: Normal range of motion, no edema. No clubbing or cyanosis. Peripheral pulses intact. ASSESSMENT Coronary artery disease status post bypass grafting POD#3 NSTEMI Acute blood loss anemia Thrombocytopenia Hypertension COPD Sleep apnea PLAN Continue to optimize beta blockers as tolerated. Increase activity as tolerated. Encourage incentive spirometer use. Follow renal function and electrolytes in the morning. Nurse Practitioner note has been reviewed, I agree with a documented findings and plan of care. Patient was seen and examined. Objective - Vital Signs Vital signs: Vital Signs Temp 98.5 F 01/13/21 10:54 Pulse 84 01/13/21 11:26 Resp 18 01/13/21 11:26 BP 94/70 01/13/21 11:00 Pulse Ox 96 01/13/21 11:00 Intake & Output 01/12/21 01/13/21 01/13/21 18:59 06:59 18:59 Intake Total 385.272 623 310 Output Total 810 695 80 Balance -424.728 -72 230 Weight 95.7 kg 95.7 kg Intake: IV 228 23 0.9NS pressure bag 48 3 Lactated Ringers 1,000 ml 180 20 @ 20 mls/hr IV .Q24H [facility] Rx#:[id number] Intake, IV Titration 7.272 Amount Insulin Regular 100 unit 7.272 In Sodium Chloride 0.9% 100 ml @ Per Protocol IV .Q0M [facility] Rx#:[id number] Oral 150 600 Blood Product 310 Rc As-1 Unit 310 [id number] Output: Chest Tube Drainage 340 470 80 Left Pleural Chest Tube 170 225 30 Mediastinal X 2 170 245 50 Urine 470 225 0 Other: Voiding Method Indwelling Catheter Urinal Urinal ABP, PAP, CO, CI - Last Documented Arterial Blood Pressure 119/53 Pulmonary Artery Pressure 47/19 Cardiac Output 7.1 Cardiac Index 3.4 - Labs CBC & Chem 7: 01/13/21 02:52 01/13/21 02:52 Labs: Abnormal Lab Results - Last 24 Hours (Table) 01/12/21 01/12/21 01/13/21 Range/Units 16:48 21:53 02:52 WBC 14.1 H (3.8-10.6) k/uL RBC 2.10 L (4.30-5.90) m/uL Hgb 6.8 L* (13.0-17.5) gm/dL Hct 19.7 L* (39.0-53.0) % RDW 15.8 H (11.5-15.5) % Plt Count 91 L (150-450) k/uL Neutrophils # 12.1 H (1.3-7.7) k/uL Lymphocytes # 0.8 L (1.0-4.8) k/uL Sodium (137-145) mmol/L BUN (9-20) mg/dL Glucose (74-99) mg/dL POC Glucose (mg/dL) 147 H 133 H (75-99) mg/dL Calcium (8.4-10.2) mg/dL Total Protein (6.3-8.2) g/dL Albumin (3.5-5.0) g/dL Crossmatch 01/13/21 01/13/21 01/13/21 Range/Units 02:52 05:14 06:42 WBC (3.8-10.6) k/uL RBC (4.30-5.90) m/uL Hgb (13.0-17.5) gm/dL Hct (39.0-53.0) % RDW (11.5-15.5) % Plt Count (150-450) k/uL Neutrophils # (1.3-7.7) k/uL Lymphocytes # (1.0-4.8) k/uL Sodium 135 L (137-145) mmol/L BUN 40 H (9-20) mg/dL Glucose 106 H (74-99) mg/dL POC Glucose (mg/dL) 129 H (75-99) mg/dL Calcium 8.0 L (8.4-10.2) mg/dL Total Protein 4.3 L (6.3-8.2) g/dL Albumin 2.6 L (3.5-5.0) g/dL Crossmatch See Detail 01/13/21 Range/Units 11:42 WBC (3.8-10.6) k/uL RBC (4.30-5.90) m/uL Hgb (13.0-17.5) gm/dL Hct (39.0-53.0) % RDW (11.5-15.5) % Plt Count (150-450) k/uL Neutrophils # (1.3-7.7) k/uL Lymphocytes # (1.0-4.8) k/uL Sodium (137-145) mmol/L BUN (9-20) mg/dL Glucose (74-99) mg/dL POC Glucose (mg/dL) 112 H (75-99) mg/dL Calcium (8.4-10.2) mg/dL Total Protein (6.3-8.2) g/dL Albumin (3.5-5.0) g/dL Crossmatch
--- NOTE | 2021-01-13 14:39 | P.PN ---
Subjective Progress Note Date: 01/13/21 Principal diagnosis: CAD s/p CABG Mr. Stack is a 65-year-old male with a past medical history of atrial flutter, hypertension, COPD, CELE, GI bleed, anxiety with depression, PTSD admitted to [facility] with progressive worsening shortness of breath and dizziness with exertion. Patient had chest x-ray with no acute cardiopulmonary process and a CAT scan that was negative for PE. Eventually patient had elevated troponins and underwent cardiac catheterization that showed left main disease. So the patient had coronary artery bypass grafting done by Dr. Zayas on 01/10/2021. On 01/13/2021 - patient is seen and examined in the ICU. He is postoperative da y 3 today. Patient is comfortably sitting in a recliner by the bedside appears to be no acute distress. Patient states that he has chest soreness and that pain medications are slightly helping him with the pain. Patient denies having any chest pain or palpitations. No cough or difficulty in breathing. No abdominal pain nausea vomiting or diarrhea. On reviewing his vitals temperature 98.5, heart rate 85, respiratory rate 18, blood pressure 94 x 70 and saturating at 96% on room air. On reviewing the last from this morning white count of 14.1, hemoglobin 6.8, platelets 91. Sodium 135, but a simple 0.1, chloride 102, bicarbonate 26, BUN 40, creatinine 1.24. Albumin of 2.6. Medications have been reviewed-[place], Duoneb, allopurinol, amiodarone, Norvasc, Lipitor, aspirin, Dulcolax, Pulmicort, Wellbutrin, BuSpar, calcium gluconate, Plavix, Cymbalta, ferrous sulfate, finasteride, fondaparinux, hydralazine, NovoLog, metoprolol, milk of magnesia, Protonix, Senokot, Flomax, Zofran, S[place] lair Objective - Vital Signs Vital signs: Vital Signs Temp 98.5 F 01/13/21 10:54 Pulse 84 01/13/21 11:26 Resp 18 01/13/21 11:26 BP 94/70 01/13/21 11:00 Pulse Ox 96 01/13/21 11:00 Intake & Output 01/12/21 01/13/21 01/13/21 18:59 06:59 18:59 Intake Total 385.272 623 310 Output Total 810 695 10 Balance -424.728 -72 300 Weight 95.7 kg 95.7 kg Intake: IV 228 23 0.9NS pressure bag 48 3 Lactated Ringers 1,000 ml 180 20 @ 20 mls/hr IV .Q24H [facility] Rx#:[id number] Intake, IV Titration 7.272 Amount Insulin Regular 100 unit 7.272 In Sodium Chloride 0.9% 100 ml @ Per Protocol IV .Q0M [facility] Rx#:[id number] Oral 150 600 Blood Product 310 Rc As-1 Unit 310 [id number] Output: Chest Tube Drainage 340 470 10 Left Pleural Chest Tube 170 225 10 Mediastinal X 2 170 245 Urine 470 225 0 Other: Voiding Method Indwelling Catheter Urinal Urinal ABP, PAP, CO, CI - Last Documented Arterial Blood Pressure 119/53 Pulmonary Artery Pressure 47/19 Cardiac Output 7.1 Cardiac Index 3.4 - Exam PHYSICAL EXAMINATION: GENERAL: Sitting up in a chair by the bedside HEENT: mild pallor, no icterus. CARDIOVASCULAR: S1 and S2 were regular rate and rhythm., Midsternal surgical site is bandaged. Heart hugger in place. PULMONARY: Bilateral breath sounds are positive. No wheeze or crackles. ABDOMEN: Soft, nontender, nondistended, normoactive bowel sounds. MUSCULOSKELETAL: No joint swelling or deformity. EXTREMITIES: Mild pitting edema bilaterally NEUROLOGICAL: Gross neurological examination did not reveal any focal deficits. SKIN: No rashes. - Labs CBC & Chem 7: 01/13/21 02:52 01/13/21 02:52 Labs: Abnormal Lab Results - Last 24 Hours (Table) 01/12/21 01/12/21 01/13/21 Range/Units 16:48 21:53 02:52 WBC 14.1 H (3.8-10.6) k/uL RBC 2.10 L (4.30-5.90) m/uL Hgb 6.8 L* (13.0-17.5) gm/dL Hct 19.7 L* (39.0-53.0) % RDW 15.8 H (11.5-15.5) % Plt Count 91 L (150-450) k/uL Neutrophils # 12.1 H (1.3-7.7) k/uL Lymphocytes # 0.8 L (1.0-4.8) k/uL Sodium (137-145) mmol/L BUN (9-20) mg/dL Glucose (74-99) mg/dL POC Glucose (mg/dL) 147 H 133 H (75-99) mg/dL Calcium (8.4-10.2) mg/dL Total Protein (6.3-8.2) g/dL Albumin (3.5-5.0) g/dL Crossmatch 01/13/21 01/13/21 01/13/21 Range/Units 02:52 05:14 06:42 WBC (3.8-10.6) k/uL RBC (4.30-5.90) m/uL Hgb (13.0-17.5) gm/dL Hct (39.0-53.0) % RDW (11.5-15.5) % Plt Count (150-450) k/uL Neutrophils # (1.3-7.7) k/uL Lymphocytes # (1.0-4.8) k/uL Sodium 135 L (137-145) mmol/L BUN 40 H (9-20) mg/dL Glucose 106 H (74-99) mg/dL POC Glucose (mg/dL) 129 H (75-99) mg/dL Calcium 8.0 L (8.4-10.2) mg/dL Total Protein 4.3 L (6.3-8.2) g/dL Albumin 2.6 L (3.5-5.0) g/dL Crossmatch See Detail 01/13/21 Range/Units 11:42 WBC (3.8-10.6) k/uL RBC (4.30-5.90) m/uL Hgb (13.0-17.5) gm/dL Hct (39.0-53.0) % RDW (11.5-15.5) % Plt Count (150-450) k/uL Neutrophils # (1.3-7.7) k/uL Lymphocytes # (1.0-4.8) k/uL Sodium (137-145) mmol/L BUN (9-20) mg/dL Glucose (74-99) mg/dL POC Glucose (mg/dL) 112 H (75-99) mg/dL Calcium (8.4-10.2) mg/dL Total Protein (6.3-8.2) g/dL Albumin (3.5-5.0) g/dL Crossmatch Assessment and Plan Assessment: ASSESSMENT Coronary artery disease status post CABG postoperative day #3 Acute blood loss anemia and thrombocytopenia secondary to above Non-ST elevation RI Acute kidney injury- most likely prerenal Hypertension COPD History of intermittent atrial flutter Obstructive sleep apnea Hyperlipidemia Depression with anxiety Obesity with BMI of 30.3 Moderate protein calorie malnutrition PLAN: Patient's hemoglobin from this morning is 6.8, patient to be transfused with 1 unit of PRBC. Patient encouraged to continue with incentive spirometry. Postoperative care as per CT surgery recommendations. Further recommendations to follow depending on the progress of the patient.
[2021-01-13] MEDS: ONDANSETRON 4 MG/2 ML VIAL IVP PRN ×2 (16:36→21:52)
[2021-01-13 17:29] LABS: Glucose,Whole Blood 113 mg/dL (75-99)
[2021-01-13 20:49] LABS: Glucose,Whole Blood 174 mg/dL (75-99)
[2021-01-13] MEDS: SENNOSIDES-DOCUSATE SODIUM 1 EACH TAB PO SCH (21:06)
[2021-01-14] MEDS: HYDROcodone/APAP 5-325MG 1 EACH TAB PO PRN ×5 (02:03→17:57)
[2021-01-14] MEDS: BENZOCAINE/MENTHOL LOZENG 1 EACH LOZENGE MUCOUS MEM PRN (02:37)
[2021-01-14] MEDS: METOCLOPRAMIDE 5 MG/ML 2 ML VIAL IVP PRN ×2 (03:08→08:26)
[2021-01-14 03:33] LABS: MCH 31.5 pg (25.0-35.0); MCHC 34.3 g/dL (31.0-37.0); MCV 92.1 fL (80.0-100.0); Mean Platelet Volume 8.2; RBC 2.94 m/uL (4.30-5.90); WBC 25.4 k/uL (3.8-10.6)
[2021-01-14] MEDS ORDERED: FUROSEMIDE 10 MG/ML 2 ML VIAL IV ONE (03:36)
[2021-01-14] MEDS ORDERED: DEXTROSE 5% IN WATER 100 ML with AMIODARONE 150 MG IV ONE ×2 (03:37→11:00)
[2021-01-14] MEDS ORDERED: AMIODARONE 360 MG in DEXTROSE 5% IN WATER 200 ML IV ONE ×2 (03:47)
[2021-01-14 03:51] LABS: Calcium 8.3 mg/dL (8.4-10.2); Potassium 4.9 mmol/L (3.5-5.1)
[2021-01-14 04:02] LABS: HGB 9.3 gm/dL (13.0-17.5)
[2021-01-14 04:03] LABS: Platelet Count 167 k/uL (150-450)
[2021-01-14] MEDS: ONDANSETRON 4 MG/2 ML VIAL IVP PRN ×2 (04:16→16:29)
[2021-01-14] MEDS: KETOROLAC 15 MG/ML 1 ML VIAL IVP SCH (05:09)
[2021-01-14] MEDS: INSULIN ASPART (NovoLOG) 100 UNIT/ML VIAL SQ SCH ×3 (06:36→17:05)
[2021-01-14] MEDS: PANTOPRAZOLE 40 MG TABLET PO SCH (06:38)
[2021-01-14] MEDS: ACETYLCYSTEINE 800 MG/4 ML VIAL INHALATION SCH ×3 (07:12→20:20)
[2021-01-14] MEDS: BUDESONIDE 1 MG/2 ML NEBU INHALATION SCH ×2 (07:13→20:20)
[2021-01-14] MEDS: FORMOTEROL FUMARATE 20 MCG/2 ML NEBU INHALATION SCH ×2 (07:13→20:20)
[2021-01-14] MEDS: IPRATROPIUM-ALBUTEROL 3 ML NEB INHALATION SCH ×5 (07:13→20:20)
[2021-01-14] MEDS: FERROUS SULFATE 325 MG TAB PO SCH (08:25)
[2021-01-14] MEDS: TAMSULOSIN 0.4 MG CAP.ER.24H PO SCH (08:25)
[2021-01-14] MEDS: busPIRone HCl 5 MG TAB PO SCH (08:25)
[2021-01-14] MEDS: MONTELUKAST 10 MG TAB PO SCH (08:25)
[2021-01-14] MEDS: DULoxetine HCL 60 MG CAPSULE.DR PO SCH (08:25)
[2021-01-14] MEDS: ASPIRIN 81 MG PO SCH (08:25)
[2021-01-14] MEDS: METOPROLOL TARTRATE 25 MG TAB PO SCH (08:25)
[2021-01-14] MEDS: ATORVASTATIN 40 MG TAB PO SCH (08:25)
[2021-01-14] MEDS: CLOPIDOGREL 75 MG TAB PO SCH (08:25)
[2021-01-14] MEDS: FINASTERIDE 5 MG TAB PO SCH (08:26)
[2021-01-14] MEDS: buPROPion XL 300 MG TAB.ER.24H PO SCH (08:26)
[2021-01-14] MEDS: FONDAPARINUX 2.5 MG/0.5 ML SYRINGE SQ SCH (08:27)
[2021-01-14] MEDS: allopurinoL 300 MG TAB PO SCH (08:27)
--- NOTE | 2021-01-14 08:30 | XR ---
EXAMINATION TYPE: XR chest 1V portable DATE OF EXAM: 01/14/2021 COMPARISON: Chest x-ray 01/13/2021 HISTORY: Status post cardiac surgery, chest tube TECHNIQUE: Single frontal view of the chest is obtained. FINDINGS: Median sternal drains, left chest tube, patient's post median sternotomy change with left atrial appendage clip placement are again noted. There are overlying artifacts present. Subcutaneous emphysema noted over the right chest greater than left. Heart remains enlarged. There is no evident p neumothorax. Lung volumes are low. Patchy basilar density persists bilaterally. IMPRESSION: Basilar atelectasis. Cardiomegaly.
[2021-01-14] MEDS ORDERED: METOPROLOL TARTRATE 25 MG TAB PO STA (09:16)
[2021-01-14] MEDS: amLODIPine 2.5 MG TAB PO SCH (09:27)
[2021-01-14] MEDS: DEXTROSE 5% IN WATER 100 ML with AMIODARONE 150 MG IV PRN ×2 (09:28→10:42)
[2021-01-14] MEDS ORDERED: AMIODARONE 450 MG in DEXTROSE 5% IN WATER 250 ML IV SCH ×2 (09:47)
[2021-01-14] MEDS ORDERED: bisacodyL 10 MG SUPP RECTAL STA (10:22)
--- NOTE | 2021-01-14 10:47 | P.PN ---
Subjective Progress Note Date: 01/14/21 Principal diagnosis: Coronary artery disease with left main disease, non-ST elevated myocardial infarction this admission. Past medical history significant for atrial flutter, hypertension, COPD, obstructive sleep apnea without CPAP use, status post uvulectomy, previous tobacco dependence, recent pneumonia, GI bleed, anxiety/depression, PTSD, marijuana use, obesity and chronic pain. POD #4 coronary artery bypass grafting surgery 2, with his left internal mammary artery to left anterior descending coronary artery and his left radial artery off the aorta to the intermediate coronary artery. Exclusion of the left atrial appendage using a 40 mm Atriclip. Endoscopic harvesting of the left radial artery and endoscopic harvesting of the left greater saphenous vein from just below the knee to the groin. Intraoperative transesophageal echocardiogram. Postoperative acute blood loss anemia, expected due to hemodilution. Paroxysmal atrial fibrillation, a known common occurrence after cardiac surgery. The patient is seen in follow-up today 01/14/2021 at his bedside in the intensive care unit. Currently he is lying in bed, is awake, alert and oriented 3. He is in no acute distress. He continues to complain of generalized pain rating his pain 10 out of 10 on the pain scale and denies any complaints of shortness of breath. He does report that he has a productive cough this morning with green tenacious sputum. His laboratory results this morning show a WBC co unt 25.4, hemoglobin 9.3, hematocrit 27.0, platelets 167, BUN 45, creatinine 1.27, glucose 109 and calcium 8.3. He has been afebrile in the last 24 hours. He did receive 1 unit of packed red blood cells yesterday for hemoglobin of 6.8. Oxygen saturations are 99% on room air and he is achieving 7887-0310 mL on his incentive spirometry with much encouragement. The patient reports he was up ambulating in his room yesterday and sitting up in a bedside chair for most of the day yesterday. The patient needs much encouragement with activity. Mediastinal and left pleural chest tubes remain in place to low continuous wall suction -20 cm H2O. No air leak is present. Draining thin serosanguineous drainage. Left pleural chest tube drained 20 mL output in the last 8 hours and 70 mL output in the last 24 hours. Mediastinal chest tube drained 45 mL output in the last 8 hours and 70 mL output in the last 24 hours. The patient did experience some atrial fibrillation this morning with RVR, currently his bedside telemetry showing normal sinus rhythm heart rate 96 BPM. Amiodarone drip was initiated per protocol and is currently infusing at 1 mg/m. Objective - Vital Signs Vital signs: Vital Signs Temp 98.5 F 01/13/21 10:54 Pulse 93 01/14/21 07:43 Resp 24 01/14/21 07:43 BP 94/70 01/13/21 11:00 Pulse Ox 95 01/14/21 07:14 Intake & Output 01/13/21 01/14/21 01/14/21 18:59 06:59 18:59 Intake Total 310 100 Output Total 80 740 Balance 230 -640 Weight 95.7 kg Intake: Oral 100 Blood Product 310 Rc As-1 Unit 310 [id number] Output: Chest Tube Drainage 80 65 Left Pleural Chest Tube 30 20 Mediastinal X 2 50 45 Urine 0 675 Other: Voiding Method Urinal Urinal ABP, PAP, CO, CI - Last Documented Arterial Blood Pressure 119/53 Pulmonary Artery Pressure 47/19 Cardiac Output 7.1 Cardiac Index 3.4 - Exam CONSTITUTIONAL: Laying in bed in the intensive care unit, appears comfortable, cooperative, no apparent acute distress. Complaining of generalized pain, 10 out of 10 on the pain scale. HEENT: Neck is supple, no JVD, no lymphadenopathy. RESPIRATORY: Lungs sounds with scattered rhonchi throughout. Diminished to his bilateral bases. Respirations are symmetrical and nonlabored. Currently on room air with oxygen saturations 99%. Achieving 1000 to 1250 mL on his incentive spirometry. Strong cough with green tenacious sputum. CARDIOVASCULAR: Regular rhythm and rate. S1 and S2 present, negative for S3, gallop or murmur. Sternum is stable. Bedside telemetry showing normal sinus rhythm heart rate 96 BPM. Palpable peripheral pulses bilaterally. No calf pain or tenderness noted. Heart hugger in place with patient demonstrating appropriate use with encouragement. Knee-high PATRICK hose and sequential compression devices in place to his bilateral lower extremities. GASTROINTESTINAL: Abdomen soft, nontender, nondistended. Active bowel sounds present 4 quadrants. Tolerating diet. Passing flatus. No guarding or rigidit y. GENITOURINARY: Continues to void. Output 675 mL in the last 8 hours INTEGUMENTARY: Skin is warm and dry with no evidence of clubbing or cyanosis. Midline sternal incision clean dry and well approximated, covered with dry intact dressing. Left lower extremity EVH site well approximated without redness or drainage. Left arm radial artery harvest sites clean, dry and approximated. No drainage or redness is present. NEUROLOGIC: Cranial nerves II through XII intact. No focal deficits. MUSKULOSKELETAL: Able to move all extremities, strength equal bilaterally, generalized weakness. PSYCHIATRIC: Alert and oriented to person place and time, appropriate affect, intact judgment and insight. INVASIVE LINES AND TUBES: Mediastinal/left pleural chest tubes present and connected to low continuous wall suction, no air leaks present. Mediastinal tube with 45 mL of thin serosanguineous drainage overnight, 70 mL output in the last 24 hours. Left pleural chest tube with 20 mL of thin serosanguineous drainage overnight, 70 mL output in the last 24 hours. - Labs CBC & Chem 7: 01/14/21 03:16 01/14/21 03:16 Labs: Abnormal Lab Results - Last 24 Hours (Table) 01/13/21 01/13/21 01/13/21 Range/Units 05:14 11:42 17:28 WBC (3.8-10.6) k/uL RBC (4.30-5.90) m/uL Hgb (13.0-17.5) gm/dL Hct (39.0-53.0) % Sodium (137-145) mmol/L BUN (9-20) mg/dL Creatinine (0.66-1.25) mg/dL Glucose (74-99) mg/dL POC Glucose (mg/dL) 112 H 113 H (75-99) mg/dL Calcium (8.4-10.2) mg/dL Crossmatch See Detail 01/13/21 01/14/21 01/14/21 Range/Units 20:47 03:16 03:16 WBC 25.4 H (3.8-10.6) k/uL RBC 2.94 L (4.30-5.90) m/uL Hgb 9.3 L D (13.0-17.5) gm/dL Hct 27.0 L (39.0-53.0) % Sodium 136 L (137-145) mmol/L BUN 45 H (9-20) mg/dL Creatinine 1.27 H (0.66-1.25) mg/dL Glucose 109 H (74-99) mg/dL POC Glucose (mg/dL) 174 H (75-99) mg/dL Calcium 8.3 L (8.4-10.2) mg/dL Crossmatch Assessment and Plan Assessment: 1. Coronary artery disease with left main disease status post 2 vessel coronary artery bypass grafting surgery 2. Non-ST elevated myocardial infarction this admission 3. Acute purulent tracheobronchitis without evidence of pneumonia at this admission, which was treated preoperatively with ceftriaxone and IV Solu-Medrol 4. History of atrial flutter, currently sinus rhythm on bedside telemetry, status post exclusion of his left atrial appendage with a 40 mm Atriclip 5. Hypertension 6. COPD, FEV1 80% of predicted on bedside spirometry completed January 02/2021 7. Obstructive sleep apnea without CPAP use, status post uvulectomy 8. Previous tobacco dependence 9. Elevated lactic acid present on admission at 5.8, resolved 10. History of GI bleed, with history of bowel resection 11. Anxiety/depression, PTSD, bipolar disorder 12. Marijuana use 13. Chronic pain syndrome 14. Obesity 15. History of benign prostatic hypertrophy 16. Postoperative acute blood loss anemia, expected due to hemodilution 17. Paroxysmal atrial fibrillation, a common known occurrence post cardiac surgery Plan: 1. Continue to maximize medical therapy with aspirin, statin, Plavix and beta emerald. We will increase beta emerald as tolerated. 2. Currently on room air with oxygen saturation is 99%. Encourage incentive spirometry use 10 times every hour while awake. Bronchodilators per pulmonology. 3. Increase activity, ambulate as tolerated. PT/OT/cardiac rehab following. The patient is to be out of bed for all meals and as tolerated sitting in the chair. 4. Will monitor daily labs and chest x-rays. Electrolyte replacement per protocol. A differential to this morning's CBC. Procalcitonin added to this morning's labs. 5. GI/DVT prophylaxis. 6. Pain control with current medication regimen. Toradol discontinued due to his elevated BUN and creatinine. 7. Insulin management per primary care service. Patient is not diabetic, preoperative hemoglobin A1c 5.0% 8. Mediastinal and left pleural chest tubes were removed without incident. 9. Send sputum for Gram stain and culture, results pending. 10. Dr. Luis Alfredo from infectious disease consulted for leukocytosis. 11. Continue Norvasc 2.5 mg by mouth mouth daily, hold for MAP less than 70 mm/hg for radial artery spasm prophylaxis. Please do not discontinue calcium channel emerald without checking with cardiothoracic surgery prior. 12. Amiodarone drip per protocol for atrial fibrillation prophylaxis. Amiodaro ne 400 mg by mouth twice a day initiated, continue amiodarone drip until current bag is completed. 13. Continue Mucomyst 200 mg inhalation 3 times a day. 14. Transfer to cardiac stepdown unit when bed available. 15. Continue strict inaccurate I's and O's. Daily weights. 16. Dulcolax suppository 1 now. 17. More recommendations to follow based on patient's clinical course. Time with Patient: Greater than 30
[2021-01-14 11:26] LABS: Eosinophils # (M) 0.25 k/uL (0-0.7); Lymphocytes # (M) 1.78 k/uL (1.0-4.8); Neutrophils # (M) 23.37 k/uL (1.3-7.7); Neutrophils % (M) 92 %; Nucleated Red Blood Cells 0 /100 WBC (0-0); Total Cells Counted 100
[2021-01-14 11:41] LABS: Glucose,Whole Blood 147 mg/dL (75-99)
--- NOTE | 2021-01-14 12:04 | P.PN ---
Subjective Patient is seen and examined sitting up in a recliner in no acute distress. He is s/p 2V bypass grafting with LAUREANO-LAD and left radial artery off the aorta to intermediate branch. He complains of feeling weak and is having pain in his chest at the incisional site. He is receiving a blood transfusion currently. Blood pressure 94/70 heart rate 84 afebrile maintaining oxygen saturation on nasal cannula. Laboratory data reviewed, WBC 14.1, hemoglobin 6.8, platelets 91, sodium 135, potassium 4.1, creatinine 1.24. Currently maintained on amlodip ine 2.5 mg daily, aspirin 81 mg daily, atorvastatin 40 mg daily, Plavix 75 mg daily and metoprolol 25 mg twice a day. 01/14/2021 He is seen and examined sitting up in bed. He is tearful and complaining of severe pain all over. He is asking for pain medication. He denies shortness of breath, dizziness or palpitations. He has gone into atrial fibrillation with rapid ventricular rate. Currently in the 145-155 range on IV amiodarone infusion per CT surgery. Blood pressures in the 140-150 range systolic on [facility]. Laboratory data reviewed, WBC 25, hemoglobin 9.3, platelets 167, sodium 136, pot assium 4.9, creatinine 1.27 and procalcitonin 1. GENERAL: Well-appearing, well-nourished and in no acute distress. NECK: Supple without JVD or thyromegaly. LUNGS: Breath sounds clear to auscultation bilaterally. Respiration equal and unlabored. No wheezes, rales or rhonchi. Chest tubes noted with serosanguinous drainage in the chamber. HEART: Irregular and rapid rate and rhythm without murmurs, rubs or gallops. S1 and S2 heard. Heart hugger in place. Incision site with dressing in place. EXTREMITIES: Normal range of motion, no edema. No clubbing or cyanosis. Peripheral pulses intact. ASSESSMENT Coronary artery disease status post bypass grafting POD#4 NSTEMI Acute blood loss anemia Thrombocytopenia Leukocytosis New-onset paroxysmal atrial fibrillation with rapid ventricular response Hypertension COPD Sleep apnea PLAN Increase lopressor to 50 mg BID, give additional 25 mg now. Continue amiodarone infusion as previously ordered. ID consulted for worsening leuckocytosis. Nurse Practitioner note has been reviewed, I agree with a documented findings and plan of care. Patient was seen and examined. Objective - Vital Signs Vital signs: Vital Signs Temp 98.5 F 01/13/21 10:54 Pulse 94 01/14/21 11:01 Resp 20 01/14/21 11:01 BP 94/70 01/13/21 11:00 Pulse Ox 95 01/14/21 07:14 Intake & Output 01/13/21 01/14/21 01/14/21 18:59 06:59 18:59 Intake Total 310 100 300 Output Total 80 740 Balance 230 -640 300 Weight 95.7 kg Intake: Intake, IV Titration 300 Amount Dextrose 5% in Water 100 300 ml @ 618 mls/hr IV .Q10M ONE with Amiodarone 150 mg Rx#:[id number] Oral 100 Blood Product 310 Rc As-1 Unit 310 [id number] Output: Chest Tube Drainage 80 65 Left Pleural Chest Tube 30 20 Mediastinal X 2 50 45 Urine 0 675 Other: Voiding Method Urinal Urinal Urinal # Voids 0 ABP, PAP, CO, CI - Last Documented Arterial Blood Pressure 119/53 Pulmonary Artery Pressure 47/19 Cardiac Output 7.1 Cardiac Index 3.4 - Labs CBC & Chem 7: 01/14/21 03:16 01/14/21 03:16 Labs: Abnormal Lab Results - Last 24 Hours (Table) 01/13/21 01/13/21 01/14/21 Range/Units 17:28 20:47 03:16 WBC 25.4 H (3.8-10.6) k/uL RBC 2.94 L (4.30-5.90) m/uL Hgb 9.3 L D (13.0-17.5) gm/dL Hct 27.0 L (39.0-53.0) % Neutrophils # (Manual) 23.37 H (1.3-7.7) k/uL Sodium (137-145) mmol/L BUN (9-20) mg/dL Creatinine (0.66-1.25) mg/dL Glucose (74-99) mg/dL POC Glucose (mg/dL) 113 H 174 H (75-99) mg/dL Calcium (8.4-10.2) mg/dL Procalcitonin (0.02-0.09) ng/mL 01/14/21 01/14/21 01/14/21 Range/Units 03:16 03:16 11:39 WBC (3.8-10.6) k/uL RBC (4.30-5.90) m/uL Hgb (13.0-17.5) gm/dL Hct (39.0-53.0) % Neutrophils # (Manual) (1.3-7.7) k/uL Sodium 136 L (137-145) mmol/L BUN 45 H (9-20) mg/dL Creatinine 1.27 H (0.66-1.25) mg/dL Glucose 109 H (74-99) mg/dL POC Glucose (mg/dL) 147 H (75-99) mg/dL Calcium 8.3 L (8.4-10.2) mg/dL Procalcitonin 1.00 H (0.02-0.09) ng/mL Microbiology - Last 24 Hours (Table) 01/14/21 08:55 Sputum Culture - Preliminary Sputum
[2021-01-14] MEDS ORDERED: AMIODARONE 200 MG TAB PO STA (12:27)
--- NOTE | 2021-01-14 16:18 | P.PN ---
Subjective Progress Note Date: 01/14/21 Principal diagnosis: significant coronary artery disease involving left main Acute SD with elevated troponin End-stage lung disease oxygen-dependent intermittent prednisone dependent COPD with acute exacerbation Recent left-sided pneumonia Sleep disorder breathing and sleep apnea status post UPPP patient refused the CPAP machine multiple times in the past Morbid obesity History of intermittent atrial flutter 01/14/2021, patient seen eval reexamined during the rounds labs reviewed medications reviewed care plan discussed and reviewed, oxygen saturation is 95% on 2 L, remains afebrile, chest x-ray remains as stable bilateral basal atelectasis, along with cardiomegaly, hemoglobin is up to 9.3 posttransfusion, white cell count is up to 25,000, hemoglobin and hematocrit is 45 and 0.27, pro calcitonin is 1, due to his positive for multiple morphologies including gram- negative rods and gram-positive cocci many polymorphs, patient is doing well on respiratory spirometry, up to 1-1.5 L, both chest tube left and mediastinal stable draining serosanguineous fluid, episode of A. fib with RVR now back into sinus rhythm on amiodarone drip 01/13/2021, patient seen eval examined during the rounds labs reviewed medications reviewed care plan discussed, respiratory status remains stable on 2 L oxygen off and on saturation are low 90s, patient complaining of chest pain, patient has a left-sided chest tube and mediastinal chest you've draining serosanguineous fluid with a bloody appearance, labs reviewed hemoglobin is down to 6.8 patient to get unit of packed RBC white cell count is decreased to 14,000, 01/12/2021, patient is awake and alert on 2 L oxygen breathing comfortably, patient is getting new IV lines, patient is still have the left-sided chest tube along with mediastinal tube, both draining serosanguineous fluid, respiratory status marginal but stable hemodynamic status stable, patient is awake and alert but very anxious, Vernon-Leanne has been removed, chest x-ray from earlier this morning reviewed and compared continue showed low volumes with the drains stable no pneumothorax is seen stable internal jugular introducer sheath, hemoglobin stable at 8, white cell count is 18,500, BUN/creatinine 35 and 1.22 sugars stable 127, patient is on amiodarone drip intermittently for A. fib RVR, off of dopamine as well as the Precedex drip, we'll continue to monitor observe closely in ICU 01/11/2021, patient seen eval examined during the rounds labs reviewed medications reviewed, critical care time 35 minutes, successfully weaned and extubated, patient currently on 2 L, hemoglobin drop down to 6.9 patient will be transfused 1 unit of packed RBC, patient remains on dopamine, and Precedex drip, also has been on amiodarone as needed for A. fib and aflutter, patient is status post CABG 2 with LAUREANO to LAD and radial artery to PDA tolerated well, WBC count is 12,800, BUN/creatinine is 34 and 1.03, patient will be kept in ICU 01/10/2021, overall respiratory status is marginal but stable, but wheezing has improved, patient does complaining of intermittent chest pain, patient is for coronary artery bypass surgery later on today 01/09/2021, patient seen eval examined during the rounds sitting upright in the bed continued to complain of anxiety as well as chest pain breathing slightly improved now arterial bloods is reviewed, spirometric pending, blood cultures no growth, patient remains on IV Rocephin, chest x-ray COPD-like changes, BiPAP a gain offered however patient declined 01/08/2021, patient seen eval reexamined during the rounds labs reviewed medications reviewed very anxious due to anticipated surgery on Wednesday intermittent chest pain her happening, I have discussed with RN about Xanax, respiratory status slightly improved, still have cough congestion and intermittent wheezing, arterial blood gas on room air noted pH is 7.4 pCO2 46 pO2 59, patient explained about highly risk for pulmonary complication however given the severity of coronary artery disease surgery needed 01/07/2021, patient seen eval examined during the rounds labs reviewed medications reviewed respiratory status stable, noted that PFT and ABG not yet done discussed with RN, patient has been complaining of chest pain and tightness as well, will defer the pain medicine to primary and cardiovascular services, patient is scheduled for bypass surgery later this week 01/06/2021, patient seen and evaluated examined, patient is tentatively scheduled for triple bypass later on this week, ongoing cough congestion and chest tightness remains on breathing treatments antibiotics and IV steroids 01/04/2021, patient appears slightly better but have ongoing congestion nonproductive wet cough, patient remains on steroids bronchodilator and broad- spectrum antibiotics to optimize lung condition patient has been ordered PFT and arterial blood gases this is a 65-year-old male with end-stage severe COPD chronic history of smoking and nicotine use also has history of recurrent pneumonia and states intermittent prednisone-dependent, oxygen dependent COPDpatient was recently hospitalized for left-sided pneumonia tracheobronchitis had a bronchial lavage and washing which she tolerated well discharged in stable condition 2 days prior to hospitalization demented and chest pain, patient admitted into the hospital, recent echo revealed ejection fraction of 55%, with trace MR and TR, patient was noted to have elevated troponins underwent cardiac cath angiogram found to have left main disease, patient is being eval for bypass surgery, patient has ongoing shortness of breath sputum production and wheezing has been on broad-spectrum antibiotics cardiothoracic surgery is evaluating the patient Objective - Vital Signs Vital signs: Vital Signs Temp 98.5 F 01/13/21 10:54 Pulse 94 01/14/21 11:01 Resp 20 01/14/21 11:01 BP 94/70 01/13/21 11:00 Pulse Ox 95 01/14/21 07:14 Intake & Output 01/13/21 01/14/21 01/14/21 18:59 06:59 18:59 Intake Total 310 100 400 Output Total 80 740 Balance 230 -640 400 Weight 95.7 kg Intake: Intake, IV Titration 400 Amount Dextrose 5% in Water 100 400 ml @ 618 mls/hr IV .Q10M ONE with Amiodarone 150 mg Rx#:[id number] Oral 100 Blood Product 310 Rc As-1 Unit 310 [id number] Output: Chest Tube Drainage 80 65 Left Pleural Chest Tube 30 20 Mediastinal X 2 50 45 Urine 0 675 Other: Voiding Method Urinal Urinal Bedside Commode Urinal # Voids 2 ABP, PAP, CO, CI - Last Documented Arterial Blood Pressure 119/53 Pulmonary Artery Pressure 47/19 Cardiac Output 7.1 Cardiac Index 3.4 - Exam - Constitutional General appearance: average body habitus, cooperative - Neck Neck: normal ROM Carotids: bilateral: upstroke normal Thyroid: bilateral: normal size - Respiratory Respiratory: bilateral: diminished, wheezing - Cardiovascular Rhythm: regular Heart sounds: normal: S1, S2 - Gastrointestinal General gastrointestinal: decreased bowel sounds, normal bowel sounds, soft - Integumentary Integumentary: normal turgor - Neurologic Neurologic: CNII-XII intact - Musculoskeletal Musculoskeletal: gait normal, generalized weakness, strength equal bilaterally - Psychiatric Psychiatric: A&O x's 3, appropriate affect, intact judgment & insight - Labs CBC & Chem 7: 01/14/21 03:16 01/14/21 03:16 Labs: Abnormal Lab Results - Last 24 Hours (Table) 01/13/21 01/13/21 01/14/21 Range/Units 17:28 20:47 03:16 WBC 25.4 H (3.8-10.6) k/uL RBC 2.94 L (4.30-5.90) m/uL Hgb 9.3 L D (13.0-17.5) gm/dL Hct 27.0 L (39.0-53.0) % Neutrophils # (Manual) 23.37 H (1.3-7.7) k/uL Sodium (137-145) mmol/L BUN (9-20) mg/dL Creatinine (0.66-1.25) mg/dL Glucose (74-99) mg/dL POC Glucose (mg/dL) 113 H 174 H (75-99) mg/dL Calcium (8.4-10.2) mg/dL Procalcitonin (0.02-0.09) ng/mL 01/14/21 01/14/21 01/14/21 Range/Units 03:16 03:16 11:39 WBC (3.8-10.6) k/uL RBC (4.30-5.90) m/uL Hgb (13.0-17.5) gm/dL Hct (39.0-53.0) % Neutrophils # (Manual) (1.3-7.7) k/uL Sodium 136 L (137-145) mmol/L BUN 45 H (9-20) mg/dL Creatinine 1.27 H (0.66-1.25) mg/dL Glucose 109 H (74-99) mg/dL POC Glucose (mg/dL) 147 H (75-99) mg/dL Calcium 8.3 L (8.4-10.2) mg/dL Procalcitonin 1.00 H (0.02-0.09) ng/mL Microbiology - Last 24 Hours (Table) 01/14/21 08:55 Gram Stain - Preliminary Sputum Sputum Culture - Preliminary Assessment and Plan Assessment: Leukocytosis likely related to stress response A. fib with RVR post CABG on amiodarone Acute blood loss anemia expected outcome of CABG Generalized anxiety and hypertension significant coronary artery disease status post CABG 2 with LAUREANO to LAD and radial artery graft to PDA Acute SD with elevated troponin End-stage lung disease oxygen-dependent intermittent prednisone dependent Ongoing chest pain likely related to angina and coronary artery disease COPD Recent left-sided pneumonia Sleep disorder breathing and sleep apnea status post UPPP patient refused the CPAP machine multiple times in the past Morbid obesity History of intermittent atrial flutter Plan: Sputum studies reviewed final culture are pending continue bronchodilator as needed Status post 1 unit packed RBC transfusion Chest tube removal per thoracic surgery Continue deep breathing sense incentive spirometry Further plan of care as per clinical response of the patient
[2021-01-14 16:39] LABS: Glucose,Whole Blood 141 mg/dL (75-99)
[2021-01-14] MEDS ORDERED: PIPERACILLIN-TAZOBACTAM 3.375 GM in SODIUM CHLORIDE 0.9% 100 ML IVPB SCH (17:30)
[2021-01-14 18:56] LABS: Appearance,Urine Cloudy (Clear); Bacteria,Urine Rare /hpf; Bilirubin,Urine 1+ (Negative); Blood,Urine Moderate (Negative); Color,Urine Yellow; Glucose,Urine (UA) Negative (Negative); Hyaline Casts,Urine 64 /lpf (0-2); Ketones,Urine 1+ (Negative); Leukocyte Esterase,Urine Trace (Negative); Mucus,Urine Occasional /hpf; Nitrite,Urine Negative (Negative); PH, Urine 5.5 (5.0-8.0); Protein,Urine 1+ (Negative); RBC,Urine 31 /hpf (0-5); Specific Gravity,Urine 1.033 (1.001-1.035); Squamous Epithelial Cell,Urine <1 /hpf (0-4); Urobilinogen,Urine <2.0 mg/dL (<2.0); WBC,Urine 6 /hpf (0-5)
[2021-01-14] MEDS ORDERED: SODIUM BICARB 8.4% 50 ML SYR (1 MEQ/ML) ONE (19:12)
[2021-01-14] MEDS ORDERED: EPINEPHrine 10 ML SYRINGE (0.1 MG/ML) ONE (19:12)
[2021-01-14 19:18] LABS: Glucose,Whole Blood 172 mg/dL (75-99)
--- NOTE | 2021-01-14 20:24 | P.EN ---
CODE BLUE note Patient went into cardiac arrest initial rhythm was PEA, CPR initiated following ACLS protocol patient was given epinephrine and bicarb, patient was intubated during the code No shockable rhythms were identified Patient had copious amount of bilious vomiting before and during the code during the code he almost filled up 2 canisters and vomited a lot on the floor nonb loody it was all bilious in color Of note, nurse reported that patient in the morning was complaining of indigestion and just before the code he asked to go to the bathroom to the nurse he looked stable. While he was on the toilet he had large amount of vomiting and it is suspected that he has aspirated after which she collapsed immediately and CODE BLUE was activated when he was unresponsive and not having pulse or breathing. CPR effort was continued for about 20 minutes eventually patient was having asystole. Patient was pronounced Patient friend on file Per was notified over the phone RN notified primary team I met the team SPIKE Guzman and updated him on the case Please refer to paper charting of CODE BLUE event for exact sequence of events and medications given
--- NOTE | 2021-01-14 20:55 | CONS ---
CONSULTATION DATE OF SERVICE: 01/14/2021. REASON FOR CONSULTATION: Leukocytosis. HISTORY OF PRESENT ILLNESS: The patient is a 65 -year-old male admitted to the hospital about 2 weeks ago. The patient presented on 12/31/2020 with chest pain. The patient did have evidence of marked ST elevated NE during this admission. Also with a history of heart failure, atrial fibrillation, hypertension, COPD, obstructive sleep apnea. The patient is postop day 4 coronary artery bypass grafting x2 with left internal mammary artery to the left anterior descending and left radial artery to the intermediate coronary artery. The patient did have chest tubes. The patient has been afebrile during this admission. However, the patient noticed to have worsening of the white count. White count of 25.4 that has prompted this Infectious Disease consultation. Patient did have a white count of 9.4 on January 11 and since the, white count slightly jumping, trending up. The patient denies having any headache. Has been complaining of chest pain. Also complaining of shortness of breath. He did have a cough which is moderate intense and bringing up some greenish sputum. No hemoptysis. The patient denies any nausea, vomiting. No abdominal pain. No diarrhea. The patient did have Manzanares catheter on this admission that has been discontinued. The patient blood cultures on admission were negative. Sputum has been obtained today. Infectious Disease was consulted for further management of antibiotic therapy. REVIEW OF SYSTEMS: Positive points have been mentioned in HPI. Rest of systems are negative. PAST MEDICAL HISTORY: Atrial flutter, asthma, COPD, gastroesophageal reflux disease, GI bleed, hypertension, osteoarthritis, pneumonia, prostate disorder, sleep apnea. PAST SURGICAL HISTORY: Adenoidectomy, bowel resection and cholecystectomy. SOCIAL HISTORY: Remote history of smoking. Did admit to marijuana use. No drinking. FAMILY HISTORY: Mother with history of asthma. ALLERGIES: PEANUTS AND POLLENS. MEDICATION: Patient is currently on [place], Mucomyst, DuoNeb, Zyloprim, Amiodarone, Norvasc, aspirin, Lipitor, Cepacol lozenges, Dulcolax, Pulmicort, Wellbutrin, BuSpar, Cymbalta, iron sulfate, Proscar, hydralazine, NovoLog, milk of magnesia, Reglan, Lopressor, Singulair, and Zofran. PHYSICAL EXAMINATION: Blood pressure is 137/81 with a pulse of 80, temperature 98. General description is a middle-aged male up in the chair in no distress. No tachypnea or accessory muscles of respiration use. HEENT: Examination shows slight pallor. No scleral icterus. Oral mucous membrane is dry. NECK: Trachea central. No thyromegaly. LUNGS unlabored breathing, decreased breath sounds in the base, with no wheeze or crackles. HEART S1, S2. Regular rate and rhythm. ABDOMEN: Soft, no tenderness. EXTREMITIES: No edema of the feet. Examination of left arm did have a cold to touch with multiple bruises. NEUROLOGICAL: Patient awake and alert and oriented times three. Modo and affect normal. LABS: Hemoglobin 9.8, white count 5.4. BUN of 45, creatinine 1.27. DIAGNOSTIC IMPRESSION AND PLAN: Patient with leukocytosis in this patient who is status post coronary artery bypass grafting x2 with the source of elevated white could be related to multiple bruises. The patient has significant bruising to the left arm. However, the patient also complaining of cough moderate intensity. Did have some creamy sputum and did have some atelectasis/infiltrate on chest x-ray and concern for possible nosocomial pneumonia. PLAN: 1. Blood cultures will be obtained. 2. We will check a CRP, procalcitonin, UA and culture. 3. We will empirically add Zosyn 3.375 g q.8 hours. 4. We will follow on clinical condition and further adjust medication if needed. Thank you for this consultation. We will follow this patient along with you. MMODL / IJN: [id number] / RAI
[2021-01-14] MEDS ORDERED: METOPROLOL TARTRATE 50 MG TAB PO SCH (21:00)
[2021-01-14] MEDS ORDERED: AMIODARONE 200 MG TAB PO SCH (21:00)
--- NOTE | 2021-01-14 21:03 | P.PN ---
Subjective Progress Note Date: 01/14/21 Principal diagnosis: CAD s/p CABG Mr. Stack is a 65-year-old male with a past medical history of atrial flutter, hypertension, COPD, CELE, GI bleed, anxiety with depression, PTSD admitted to [facility] with progressive worsening shortness of breath and dizziness with exertion. Patient had chest x-ray with no acute cardiopulmonary process and a CAT scan that was negative for PE. Eventually patient had elevated troponins and underwent cardiac catheterization that showed left main disease. So the patient had coronary artery bypass grafting done by Dr. Zayas on 01/10/2021. On 01/13/2021 - patient is seen and examined in the ICU. He is postoperative da y 3 today. Patient is comfortably sitting in a recliner by the bedside appears to be no acute distress. Patient states that he has chest soreness and that pain medications are slightly helping him with the pain. Patient denies having any chest pain or palpitations. No cough or difficulty in breathing. No abdominal pain nausea vomiting or diarrhea. On reviewing his vitals temperature 98.5, heart rate 85, respiratory rate 18, blood pressure 94 x 70 and saturating at 96% on room air. On reviewing the last from this morning white count of 14.1, hemoglobin 6.8, platelets 91. Sodium 135, but a simple 0.1, chloride 102, bicarbonate 26, BUN 40, creatinine 1.24. Albumin of 2.6. 01/14/2021 Patient is currently sitting up in chair. Awake alert and oriented x3. Postoperative day 4. Complaining of soreness in her chest and is requesting pain medications. Patient also thinks he may be withdrawing from narcotic pain medication at home. Patient went into atrial fibrillation with rapid ventricular rate last night and was started on amiodarone drip. Patient is also complaining of constipation and not having bowel meds for the past 3 to 4 days. Dulcolax suppository was ordered. No complaints of fever or chills. No complaints of abdominal pain. Denies any cough with sputum production. Chest x-ray showed bibasilar diagnosis. Cardiomegaly. UA negative for infection. Laboratory tests elevated WBC count went up to 25.4 today. Procalcitonin level was ordered and considering empiric antibiotics in the form of Zosyn. ID was consulted.. Hemoglobin up to 9.3 today. BUN 45 and creatinine 1.27 and calcium 8.3 Medications have been reviewed-Stoddard, Duoneb, allopurinol, amiodarone, Norvasc, Lipitor, aspirin, Dulcolax, Pulmicort, Wellbutrin, BuSpar, calcium gluconate, Plavix, Cymbalta, ferrous sulfate, finasteride, fondaparinux, hydralazine, NovoLog, metoprolol, milk of magnesia, Protonix, Senokot, Flomax, Zofran, Singulair Objective - Vital Signs Vital signs: Vital Signs Temp 98.5 F 01/13/21 10:54 Pulse 94 01/14/21 11:01 Resp 20 01/14/21 11:01 BP 94/70 01/13/21 11:00 Pulse Ox 95 01/14/21 07:14 Intake & Output 01/13/21 01/14/21 01/14/21 18:59 06:59 18:59 Intake Total 310 100 400 Output Total 80 740 100 Balance 230 -640 300 Weight 95.7 kg Intake: Intake, IV Titration 400 Amount Dextrose 5% in Water 100 400 ml @ 618 mls/hr IV .Q10M ONE with Amiodarone 150 mg Rx#:[id number] Oral 100 Blood Product 310 Rc As-1 Unit 310 [id number] Output: Chest Tube Drainage 80 65 Left Pleural Chest Tube 30 20 Mediastinal X 2 50 45 Urine 0 675 100 Other: Voiding Method Urinal Urinal Bedside Commode Urinal # Voids 2 ABP, PAP, CO, CI - Last Documented Arterial Blood Pressure 119/53 Pulmonary Artery Pressure 47/19 Cardiac Output 7.1 Cardiac Index 3.4 - Exam PHYSICAL EXAMINATION: GENERAL: Sitting up in a chair by the bedside HEENT: mild pallor, no icterus. CARDIOVASCULAR: S1 and S2 were regular rate and rhythm., Midsternal surgical site is bandaged. Heart hugger in place. PULMONARY: Bilateral breath sounds are positive. No wheeze or crackles. ABDOMEN: Soft, nontender, nondistended, normoactive bowel sounds. MUSCULOSKELETAL: No joint swelling or deformity. EXTREMITIES: Mild pitting edema bilaterally NEUROLOGICAL: Gross neurological examination did not reveal any focal deficits. SKIN: No rashes. - Labs CBC & Chem 7: 01/14/21 03:16 01/14/21 03:16 Labs: Abnormal Lab Results - Last 24 Hours (Table) 01/13/21 01/13/21 01/14/21 Range/Units 17:28 20:47 03:16 WBC 25.4 H (3.8-10.6) k/uL RBC 2.94 L (4.30-5.90) m/uL Hgb 9.3 L D (13.0-17.5) gm/dL Hct 27.0 L (39.0-53.0) % Neutrophils # (Manual) 23.37 H (1.3-7.7) k/uL Sodium (137-145) mmol/L BUN (9-20) mg/dL Creatinine (0.66-1.25) mg/dL Glucose (74-99) mg/dL POC Glucose (mg/dL) 113 H 174 H (75-99) mg/dL Calcium (8.4-10.2) mg/dL Procalcitonin (0.02-0.09) ng/mL 01/14/21 01/14/21 01/14/21 Range/Units 03:16 03:16 11:39 WBC (3.8-10.6) k/uL RBC (4.30-5.90) m/uL Hgb (13.0-17.5) gm/dL Hct (39.0-53.0) % Neutrophils # (Manual) (1.3-7.7) k/uL Sodium 136 L (137-145) mmol/L BUN 45 H (9-20) mg/dL Creatinine 1.27 H (0.66-1.25) mg/dL Glucose 109 H (74-99) mg/dL POC Glucose (mg/dL) 147 H (75-99) mg/dL Calcium 8.3 L (8.4-10.2) mg/dL Procalcitonin 1.00 H (0.02-0.09) ng/mL Microbiology - Last 24 Hours (Table) 01/14/21 08:55 Gram Stain - Preliminary Sputum Sputum Culture - Preliminary Assessment and Plan Assessment: Coronary artery disease status post CABG postoperative day #4 Leukocytosis. Rule out infection. Chest x-ray showed atelectasis bibasilar. UA negative for infection. Follow-up sputum cultures. Acute blood loss anemia and thrombocytopenia secondary to above. S/p 1 unit of PRBC. Hemoglobin dropped to 9.3 today. Non-ST elevation IN Acute kidney injury- most likely prerenal Hypertension COPD History of intermittent atrial flutter Obstructive sleep apnea Hyperlipidemia Depression with anxiety Obesity with BMI of 30.3 Moderate protein calorie malnutrition PLAN: Pt. is being continued on Amiodarone drip. Patient's hemoglobin went up to 9.3 todayafter 1U PRBC yesterday. Otherwise leukocytosis with WBC count 25.4. Procalcitonin was ordered and ID was consulted. will add empiric antibiotics. Continue stool softeners and laxatives for constipation. DulcolaX suppository was ordered. Patient encouraged to continue with incentive spirometry. Postoperative care as per CT surgery recommendations. Further recommendations to follow depending on the progress of the patient. Time with Patient: Greater than 30
--- NOTE | 2021-01-14 21:19 | P.DS ---
Providers Date of admission: 01/02/21 08:15 Expected date of discharge: 01/14/21 Attending physician: Marko Zayas Consults: 12/31/20 18:52 Consult Physician Urgent Consulting Provider: [facility] Consult Reason/Comments: Elevated troponin Do you want consulting provider notified?: Yes 01/02/21 14:23 Consult Physician Routine Consulting Provider: Marko Zayas Consult Reason/Comments: cabg Do you want consulting provider notified?: Already Contacted 01/02/21 15:26 Consult Physician Routine Consulting Provider: Nehemiah Granados Consult Reason/Comments: pulm clearance preop cabg Do you want consulting provider notified?: Yes 01/09/21 16:07 Consult to Anesthesia Routine Consulting Provider: Anest[facility],Services Consult Reason/Comments: Cardiac Surgery Pre-Op 01/10/21 12:25 Consult Physician Routine Consulting Provider: Campbell Avilez Consult Reason/Comments: med mgmt Do you want consulting provider notified?: Already Contacted 01/14/21 08:09 Consult Physician Routine Consulting Provider: Wilman Lobato Consult Reason/Comments: Leukocytosis Do you want consulting provider notified?: Yes Primary care physician: Deborah Marie [facility] Course: Diagnosis Cardiogenic shock Atrial flutter/tachyarrhythmia Coronary artery disease status post CABG postoperative day #4 Leukocytosis. Rule out infection. Chest x-ray showed atelectasis bibasilar. UA negative for infection. no F/C Follow-up sputum cultures. Acute blood loss anemia and thrombocytopenia secondary to above. S/p 1 unit of PRBC. Hemoglobin dropped to 9.3 today. Non-ST elevation NE Acute kidney injury- most likely prerenal Hypertension COPD History of intermittent atrial flutter Obstructive sleep apnea Hyperlipidemia Depression with anxiety Obesity with BMI of 30.3 Moderate protein calorie malnutrition Hospital course Mr. Stack is a 65-year-old male with a past medical history of atrial flutter, hypertension, COPD, CELE, GI bleed, anxiety with depression, PTSD admitted to [facility] with progressive worsening shortness of breath and dizziness with exertion. Patient had chest x-ray with no acute cardiopulmonary process and a CAT scan that was negative for PE. Eventually patient had elevated troponins and underwent cardiac catheterization that showed left main disease. So the patient had coronary artery bypass grafting done by Dr. Zayas on 01/10/2021. On 01/13/2021 - patient is seen and examined in the ICU. He is postoperative day 3 today. Patient is comfortably sitting in a recliner by the bedside appears to be no acute distress. Patient states that he has chest soreness and that pain medications are slightly helping him with the pain. Patient denies having any chest pain or palpitations. No cough or difficulty in breathing. No abdominal pain nausea vomiting or diarrhea. On reviewing his vitals temperature 98.5, heart rate 85, respiratory rate 18, blood pressure 94 x 70 and saturating at 96% on room air. On reviewing the last from this morning white count of 14.1, hemoglobin 6.8, platelets 91. Sodium 135, but a simple 0.1, chloride 102, bicarbonate 26, BUN 40, creatinine 1.24. Albumin of 2.6. 01/14/2021 Patient is currently sitting up in chair. Awake alert and oriented x3. Postoperative day 4. Complaining of soreness in her chest and is requesting pain medications. Patient also thinks he may be withdrawing from narcotic pain medication at home. Patient went into atrial fibrillation with rapid ventricular rate last night and was started on amiodarone drip. Patient is also complaining of constipation and not having bowel meds for the past 3 to 4 days. Dulcolax suppository was ordered. No complaints of fever or chills. No complaints of abdominal pain. Denies any cough with sputum production. Chest x-ray showed bibasilar diagnosis. Cardiomegaly. UA negative for infection. Laboratory tests elevated WBC count went up to 25.4 today. Procalcitonin level was ordered and considering empiric antibiotics in the form of Zosyn. ID was consulted.. Hemoglobin up to 9.3 today. BUN 45 and creatinine 1.27 and calcium 8.3 Today evening patient was awake and oriented. Heart rate was controlled. He asked to go to the bathroom and while sitting on the commode he had copious amount of bilious vomiting while he was on the toilet and suddenly went into PEA . CODE BLUE was initiated and patient was found unresponsive by the time the code team arrived. CPR was continued for 20 minutes and eventually patient went into asystole. Patient was pronounced. Plan - Discharge Summary Discharge Rx Participant: No New Discharge Prescriptions: No Action Montelukast [Singulair] 10 mg PO DAILY Finasteride [Proscar] 5 mg PO DAILY Tamsulosin HCl [Flomax] 0.4 mg PO DAILY Metoprolol Succinate (ER) [Toprol XL] 25 mg PO DAILY #30 tab.er.24h Albuterol Inhaler [Ventolin Hfa Inhaler] 2 puff INHALATION RT-QID PRN PRN Reason: Shortness Of Breath Fluticasone/Umeclidin/Vilanter [Trelegy Ellipta 100-62.5-25] 1 puff INHALATION RT-DAILY Omeprazole 20 mg PO BID Cetirizine HCl 10 mg PO DAILY oxyCODONE-APAP 10-325MG [Percocet 10-325 mg] 1 tab PO 5XD Allopurinol [Zyloprim] 300 mg PO DAILY amLODIPine [Norvasc] 10 mg PO DAILY #30 tab hydrALAZINE HCL [Apresoline] 75 mg PO TID hydrOXYzine pamoate [Vistaril] 25 mg PO Q8H PRN PRN Reason: Anxiety busPIRone HCL [Buspar] 7.5 mg PO BID Ferrous Sulfate [Feosol] 325 mg PO DAILY Albuterol Nebulized [Ventolin Nebulized] 2.5 mg INHALATION RT-TID PRN PRN Reason: Shortness Of Breath Ipratropium-Albuterol Nebulize [Duoneb 0.5 mg-3 mg/3 ml Soln] 3 ml INHALATION RT-QID PRN ml PRN Reason: Shortness Of Breath Or Wheezing Ipratropium Nebulized [Atrovent Nebulized 0.2 MG/ML] 0.5 mg INHALATION RT-QID PRN PRN Reason: Shortness Of Breath DULoxetine HCL [Cymbalta] 60 mg PO DAILY Ipratropium-Albuterol Nebulize [Duoneb 0.5 mg-3 mg/3 ml Soln] 3 ml INHALATION RT-QID 30 Days #90 ml buPROPion XL [Wellbutrin Xl] 300 mg PO DAILY Discharge Medication List Montelukast [Singulair] 10 mg PO DAILY 03/16/14 [History] Finasteride [Proscar] 5 mg PO DAILY 11/18/19 [History] Tamsulosin HCl [Flomax] 0.4 mg PO DAILY 11/18/19 [History] Metoprolol Succinate (ER) [Toprol XL] 25 mg PO DAILY #30 tab.er.24h 04/14/20 [Rx] Albuterol Inhaler [Ventolin Hfa Inhaler] 2 puff INHALATION RT-QID PRN 05/22/20 [History] Fluticasone/Umeclidin/Vilanter [Trelegy Ellipta 100-62.5-25] 1 puff INHALATION RT-DAILY 05/22/20 [History] Cetirizine HCl 10 mg PO DAILY 07/14/20 [History] Omeprazole 20 mg PO BID 07/14/20 [History] oxyCODONE-APAP 10-325MG [Percocet 10-325 mg] 1 tab PO 5XD 08/18/20 [History] Allopurinol [Zyloprim] 300 mg PO DAILY 10/06/20 [History] amLODIPine [Norvasc] 10 mg PO DAILY #30 tab 10/09/20 [Rx] hydrALAZINE HCL [Apresoline] 75 mg PO TID 10/14/20 [History] Albuterol Nebulized [Ventolin Nebulized] 2.5 mg INHALATION RT-TID PRN 12/02/20 [History] DULoxetine HCL [Cymbalta] 60 mg PO DAILY 12/02/20 [History] Ferrous Sulfate [Feosol] 325 mg PO DAILY 12/02/20 [History] Ipratropium Nebulized [Atrovent Nebulized 0.2 MG/ML] 0.5 mg INHALATION RT-QID PRN 12/02/20 [History] busPIRone HCL [Buspar] 7.5 mg PO BID 12/02/20 [History] hydrOXYzine pamoate [Vistaril] 25 mg PO Q8H PRN 12/02/20 [History] Ipratropium-Albuterol Nebulize [Duoneb 0.5 mg-3 mg/3 ml Soln] 3 ml INHALATION RT-QID 30 Days #90 ml 12/11/20 [Rx] Ipratropium-Albuterol Nebulize [Duoneb 0.5 mg-3 mg/3 ml Soln] 3 ml INHALATION RT-QID PRN ml 12/11/20 [Rx] buPROPion XL [Wellbutrin Xl] 300 mg PO DAILY 12/31/20 [History] Follow up Appointment(s)/Referral(s): Anthony Curtis MD [STAFF PHYSICIAN] - 1 Week Deborah Shah III, MD [Primary Care Provider] - 1-2 days Marko Zayas MD [STAFF PHYSICIAN] - 02/06/21 10:15 am [facility], [NON-STAFF] - Nehemiah Granados MD [STAFF PHYSICIAN] - 1 Week
[2021-01-15 11:26] VITALS: BP 173/96; PULSE 97; RESP 33; TEMP 98.5
--- NOTE | 2021-01-15 12:00 | P.OP ---
Date of Procedure: 01/10/21 Preoperative Diagnosis: Coronary artery disease Postoperative Diagnosis: Same Procedure(s) Performed: Off-pump CABG 2 with LAUREANO to LAD and left radial artery graft to intermediate coronary artery. Endo radial harvest, Endo vein harvest, application of At riCure clip to left atrial appendage, VINCE by anesthesia Implants: 40 mm AtriCure clip Anesthesia: WARREN Surgeon: Marko Zayas Yard Inspector #1: Dorian Davis Yard Inspector #2: Weston Flores Estimated Blood Loss (ml): 50 IV fluids (ml): 1,500 Urine output (ml): 400 Pathology: none sent Condition: stable Disposition: ICU Indications for Procedure: 65-year-old male with long-standing severe pulmonary disease presents with worsening shortness of breath and dyspnea. Troponins were positive. His BNP was also mildly elevated. He was admitted with exacerbation of COPD. He underwent Cardiologic evaluation and echocardiography revealed normal ventricular function with minimal valvular disease. He underwent cardiac catheterization that showed significant distal left main coronary artery disease, calcific disease in the proximal LAD, significant stenosis in a large intermediate branch and moderate disease in the circumflex coronary artery. Circumflex was nondominant. Coronary artery bypass grafting was recommended. Patient was treated aggressively for his heart failure and pulmonary failure and what on the schedule for CABG at the next available time slot. Operative Findings: LAUREANO was a good conduit. Left radial artery was a good conduit. Saphenous vein was a good conduit. The LAD was a good target which was grafted at the junction of the proximal and middle third where was a 2 mm vessel of excellent quality. Intermediate coronary artery was a large artery 2 mm in diameter which was grafted before its bifurcation here was a good vessel with some back wall disease. Distal branches of the circumflex coronary artery were extremely small. Circumflex coronary artery was dissected out in the AV groove proximally. It was very heavily diseased. The AV groove was extremely deep and became covered with over 2 cm of fat in thickness. Was impossible to trace circumflex artery deeper into the AV groove because of this. Ultimately we opted to skip the graft to the circumflex coronary artery. Ascending aorta was soft and without disease.
--- NOTE | 2021-01-15 12:06 | P.DS ---
Providers Date of admission: 01/02/21 08:15 Expected date of discharge: 01/14/21 Attending physician: Marko Zayas Consults: 12/31/20 18:52 Consult Physician Urgent Consulting Provider: [facility] Consult Reason/Comments: Elevated troponin Do you want consulting provider notified?: Yes 01/02/21 14:23 Consult Physician Routine Consulting Provider: Marko Zayas Consult Reason/Comments: cabg Do you want consulting provider notified?: Already Contacted 01/02/21 15:26 Consult Physician Routine Consulting Provider: Nehemiah Granados Consult Reason/Comments: pulm clearance preop cabg Do you want consulting provider notified?: Yes 01/09/21 16:07 Consult to Anesthesia Routine Consulting Provider: Anest[facility],Services Consult Reason/Comments: Cardiac Surgery Pre-Op 01/10/21 12:25 Consult Physician Routine Consulting Provider: Campbell Avilez Consult Reason/Comments: med mgmt Do you want consulting provider notified?: Already Contacted 01/14/21 08:09 Consult Physician Routine Consulting Provider: Wilman Lobato Consult Reason/Comments: Leukocytosis Do you want consulting provider notified?: Yes Primary care physician: [facility] Course: 65-year-old male with chronic pulmonary disease. He had a recent hospitalization for pulmonary insufficiency and bronchitis with bronchoscopy. He presents again with shortness of breath. His troponins were mildly elevated and he underwent cardiac catheterization was found to have left main coronary artery disease. He was recommended undergo bypass surgery. He underwent several day course of antibiotics and steroids in order to maximize his pulmonary status and was brought to the operating room on January 10 for urgent coronary bypass surgery. Off-pump CABG 2 was performed with LAUREANO to the LAD and saphenous vein graft to the intermediate coronary artery. This proceeded without event. The patient was extubated later that evening and had improved pulmonary status over the course of the weekend. By Wednesday he was on room air and transfer orders were written to the floor but the patient remained in CCU due to unavailability of beds. He had a good day on Wednesday however was on the commode on the evening of Wednesday, January 14 when he had a sudden and unexpected cardiac arrest. He was immediately placed back in bed and CPR was begun and appropriate cardiac life support was administered. The patient was intubated. Unfortunately we were unable to ever reestablished pulse. Patient was declared on the evening of January 14. Case was referred to the director of graduate medical education an autopsy was requested. Plan - Discharge Summary Discharge Rx Participant: No New Discharge Prescriptions: No Action Montelukast [Singulair] 10 mg PO DAILY Finasteride [Proscar] 5 mg PO DAILY Tamsulosin HCl [Flomax] 0.4 mg PO DAILY Metoprolol Succinate (ER) [Toprol XL] 25 mg PO DAILY #30 tab.er.24h Albuterol Inhaler [Ventolin Hfa Inhaler] 2 puff INHALATION RT-QID PRN PRN Reason: Shortness Of Breath Fluticasone/Umeclidin/Vilanter [Trelegy Ellipta 100-62.5-25] 1 puff INHALATION RT-DAILY Omeprazole 20 mg PO BID Cetirizine HCl 10 mg PO DAILY oxyCODONE-APAP 10-325MG [Percocet 10-325 mg] 1 tab PO 5XD Allopurinol [Zyloprim] 300 mg PO DAILY amLODIPine [Norvasc] 10 mg PO DAILY #30 tab hydrALAZINE HCL [Apresoline] 75 mg PO TID hydrOXYzine pamoate [Vistaril] 25 mg PO Q8H PRN PRN Reason: Anxiety busPIRone HCL [Buspar] 7.5 mg PO BID Ferrous Sulfate [Feosol] 325 mg PO DAILY Albuterol Nebulized [Ventolin Nebulized] 2.5 mg INHALATION RT-TID PRN PRN Reason: Shortness Of Breath Ipratropium-Albuterol Nebulize [Duoneb 0.5 mg-3 mg/3 ml Soln] 3 ml INHALATION RT-QID PRN ml PRN Reason: Shortness Of Breath Or Wheezing Ipratropium Nebulized [Atrovent Nebulized 0.2 MG/ML] 0.5 mg INHALATION RT-QID PRN PRN Reason: Shortness Of Breath DULoxetine HCL [Cymbalta] 60 mg PO DAILY Ipratropium-Albuterol Nebulize [Duoneb 0.5 mg-3 mg/3 ml Soln] 3 ml INHALATION RT-QID 30 Days #90 ml buPROPion XL [Wellbutrin Xl] 300 mg PO DAILY Discharge Medication List Montelukast [Singulair] 10 mg PO DAILY 03/16/14 [History] Finasteride [Proscar] 5 mg PO DAILY 11/18/19 [History] Tamsulosin HCl [Flomax] 0.4 mg PO DAILY 11/18/19 [History] Metoprolol Succinate (ER) [Toprol XL] 25 mg PO DAILY #30 tab.er.24h 04/14/20 [Rx] Albuterol Inhaler [Ventolin Hfa Inhaler] 2 puff INHALATION RT-QID PRN 05/22/20 [History] Fluticasone/Umeclidin/Vilanter [Trelegy Ellipta 100-62.5-25] 1 puff INHALATION RT-DAILY 05/22/20 [History] Cetirizine HCl 10 mg PO DAILY 07/14/20 [History] Omeprazole 20 mg PO BID 07/14/20 [History] oxyCODONE-APAP 10-325MG [Percocet 10-325 mg] 1 tab PO 5XD 08/18/20 [History] Allopurinol [Zyloprim] 300 mg PO DAILY 10/06/20 [History] amLODIPine [Norvasc] 10 mg PO DAILY #30 tab 10/09/20 [Rx] hydrALAZINE HCL [Apresoline] 75 mg PO TID 10/14/20 [History] Albuterol Nebulized [Ventolin Nebulized] 2.5 mg INHALATION RT-TID PRN 12/02/20 [History] DULoxetine HCL [Cymbalta] 60 mg PO DAILY 12/02/20 [History] Ferrous Sulfate [Feosol] 325 mg PO DAILY 12/02/20 [History] Ipratropium Nebulized [Atrovent Nebulized 0.2 MG/ML] 0.5 mg INHALATION RT-QID PRN 12/02/20 [History] busPIRone HCL [Buspar] 7.5 mg PO BID 12/02/20 [History] hydrOXYzine pamoate [Vistaril] 25 mg PO Q8H PRN 12/02/20 [History] Ipratropium-Albuterol Nebulize [Duoneb 0.5 mg-3 mg/3 ml Soln] 3 ml INHALATION RT-QID 30 Days #90 ml 12/11/20 [Rx] Ipratropium-Albuterol Nebulize [Duoneb 0.5 mg-3 mg/3 ml Soln] 3 ml INHALATION RT-QID PRN ml 12/11/20 [Rx] buPROPion XL [Wellbutrin Xl] 300 mg PO DAILY 12/31/20 [History] Follow up Appointment(s)/Referral(s): Anthony Curtis MD [STAFF PHYSICIAN] - 1 Week Deborah Shah III, MD [Primary Care Provider] - 1-2 days Marko Zayas MD [STAFF PHYSICIAN] - 02/06/21 10:15 am [facility], [NON-STAFF] - Nehemiah Granados MD [STAFF PHYSICIAN] - 1 Week Discharge Disposition: - Preliminary Cause of Preliminary Cause of : Pulmonary embolism
--- NOTE | 2021-01-17 12:47 | CDI ---
Documentation Clarification Form Date: 01/17/2021 12:26:33 PM From: Vashti Yarbrough CCS, CCDS Admit Date: 01/02/2021 08:15:00 AM Patient Name: Milo Stack Visit Number: [id number] Discharge Date: 01/14/2021 07:33:00 PM ATTENTION: The Clinical Documentation Specialists (CDI) and [facility] Coding Staff appreciate your assistance in clarifying documentation. Please respond to the clarification below the line at the bottom and electronically sign. The CDI & [facility] Coding staff will review the response and follow-up if needed. Please note: Queries are made part of the Legal Health Record. If you have any questions, please contact the author of this message via ITS. Dr. Marko Zayas: Heart Failure without further specificity is documented in the 12/31 H/P as: Per the CXR (no date), No CHF. Per the 01/06 CXR: No CHF Per the 01/10 Procedure Note: Treated aggressively for CHF Per the 01/14 Infectious Disease Consult: History of CHF. Additional information regarding the type and acuity of CHF is requested. History/Risk Factors per the 12/31 H/P: COPD, Asthma, Atrial Flutter, Hypertension, CELE, Former Smoker. Clinical Indicators: Presented to the ED on 12/31 with SOB, Hyperventilating and Anxious. ED Clinical Impression: Chest pain, COPD Exacerbation The patient subsequently underwent a Heart Catheterization on 01/02 which showed CAD and CABG x2 on 01/10. The patient experienced Cardiac Arrest on 01/14 and ultimately . 12/31 VS: T 97.9, P 120, R 26 - 42 (SOB, labored, Deep, Tachypnea), BP 116/70, PO 98 RA - 96 4Lnc. 01/02 VS: T 96.3, P 46-56, R 18 (SOB), BP 132/79, PO 96 RA 12/31 LAB: WBC 10.9, CO2 23, Trop 0.056, Albumin 5.2, BNP 2180. 01/01 LAB: BNP 470 01/02 LAB: Cl 109, CO2 25, Glucose 162 12/31 CXR: No acute pulmonary process. 12/31 CT Chest: No acute PE 01/11 CXR: Cardiomegaly with developing interstitial changes, correlate for developing pulmonary vascular congestion. Increasing left basilar and retrocardiac opacity, likely atelectasis. 01/12 CXR: Cardiomegaly. Hypoventilatory changes with possible mild pulmonary vascular congestion. Trace effusions with adjacent atelectasis and/or consolidation. 01/01 ECHO: Left ventricular size is normal. Moderate LVH, left ventricular systolic function is normal with EF 55-60%, Trace MR, Trace TR, No Pericardial effusion. Treatment 12/31 - 01/02: O2 2 - 4Lnc, IV Ativan, IV Ns Cl 1,000 mls @ 130 mls/hr q7H, IV Na Cl 1,000 mls @ 999 mls/hr q1H, IV Morphine 2 mg prn, po Xanax, po Nitro sl, po Aspirin, IV Rocephin, IV Dilaudid, IV Heparin Drip, INH Symbicort 01/11: IV Lasix 01/14 IV Lasix In your professional opinion, can you please clarify the acuity and type of CHF if known? If CHF is evident please specify if Present on Admission. [ ] Acute Diastolic Heart Failure (preserved EF) [ ] Chronic Diastolic Heart Failure (preserved EF) [ ] Acute on Chronic Diastolic Heart Failure (preserved EF) [ ] Acute Systolic & Diastolic Heart Failure [ ] Chronic Systolic & Diastolic Heart Failure [ ] Acute on Chronic Heart Failure Systolic & Diastolic Heart Failure [ ] Heart Failure is ruled out [ ] Other, please specify [ x] Unable to determine (Template Last Revised: September 2020) You are requesting details on the documentation in the H and P 12/31. The patient was not admitted to my service, I was consulted subsequent to the catheterization 01/02. Therfore, I am unable to comment on the details noted. I suggest you contact the admitting physician. RAI
--- NOTE | 2021-01-31 08:08 | CDI ---
Documentation Clarification Form Date: 01/31/2021 07:58:09 AM From: Vashti Yarbrough CCS, CCDS Admit Date: 01/02/2021 08:15:00 AM Patient Name: Milo Stack Visit Number: [id number] Discharge Date: 01/14/2021 07:33:00 PM ATTENTION: The Clinical Documentation Specialists (CDI) and [facility] Coding Staff appreciate your assistance in clarifying documentation. Please respond to the clarification below the line at the bottom and electronically sign. The CDI & [facility] Coding staff will review the response and follow-up if needed. Please note: Queries are made part of the Legal Health Record. If you have any questions, please contact the author of this message via ITS. Dr. Campbell Avilez: Per the 12/31 H/P: Chest x-ray showed no evidence of CHF. Per the 01/06 CXR: No CHF Per the 01/10 Procedure Note: Treated aggressively for CHF Per the 01/14 Infectious Disease Consult: History of CHF. Additional information regarding the type and acuity of CHF is requested. History/Risk Factors per the 12/31 H/P: COPD, Asthma, Atrial Flutter, Hypertension, CELE, Former Smoker. Clinical Indicators: Presented to the ED on 12/31 with SOB, Hyperventilating and Anxious. ED Clinical Impression: Chest pain, COPD Exacerbation The patient subsequently underwent a Heart Catheterization on 01/02 which showed CAD and CABG x2 on 01/10. The patient experienced Cardiac Arrest on 01/14 and ultimately . 12/31 VS: T 97.9, P 120, R 26 - 42 (SOB, labored, Deep, Tachypnea), BP 116/70, PO 98 RA - 96 4Lnc. 01/02 VS: T 96.3, P 46-56, R 18 (SOB), BP 132/79, PO 96 RA 12/31 LAB: WBC 10.9, CO2 23, Trop 0.056, Albumin 5.2, BNP 2180. 01/01 LAB: BNP 470 01/02 LAB: Cl 109, CO2 25, Gluc 162 12/31 CXR: No acute pulmonary process. 12/31 CT Chest: No acute PE 01/11 CXR: Cardiomegaly with developing interstitial changes, correlate for developing pulmonary vascular congestion. Increasing left basilar and retrocardiac opacity, likely atelectasis. 01/12 CXR: Cardiomegaly. Hypoventilatory changes with possible mild pulmonary vascular congestion. Trace effusions with adjacent atelectasis and/or consolidation. 01/01 ECHO: Left ventricular size is normal. Moderate LVH, left ventricular systolic function is normal with EF 55-60%, Trace MR, Trace TR, No Pericardial effusion. Treatment 12/31 - 01/02: O2 2 - 4Lnc, IV Ativan, IV Ns Cl 1,000 mls @ 130 mls/hr q7H, IV Na Cl 1,000 mls @ 999 mls/hr q1H, IV Morphine 2 mg prn, po Xanax, po Nitro sl, po Aspirin, IV Rocephin, IV Dilaudid, IV Heparin Drip, INH Symbicort 01/11: IV Lasix 01/14 IV Lasix As the Admitting Physician, In your professional opinion, can you please clarify the acuity and type of CHF if known? If CHF is evident please specify if Present on Admission. [ ] Acute Diastolic Heart Failure [ ] Chronic Diastolic Heart Failure [ ] Acute on Chronic Diastolic Heart Failure [ ] Acute Systolic & Diastolic Heart Failure [ ] Chronic Systolic & Diastolic Heart Failure [ ] Acute on Chronic Heart Failure Systolic & Diastolic Heart Failure [ ] Heart Failure is ruled out [ ] Other, please specify [ ] Unable to determine (Template Last Revised: September 2020) Acute Diastolic Heart Failure not present on admission MTDD
== END 2021-01-14 19:33 | disposition expired | DRG 233 ==
LOC: EC 16:12 → 3SCARD 19:50 → OBSVTOIN 01-02 08:15 → 3SCARD 01-10 07:56 → 2SICU 01-10 08:45
PROVIDERS: ADMIT Hospitalist; ATTEND Thoracic Surgery (Cardiothoracic Vascular Surgery)
PROC: 4A023N7 Measurement of Cardiac Sampling and Pressure, Left Heart, Percutaneous Approach (ICD-10-PCS; 2021-01-02)
PROC: B2111ZZ Fluoroscopy of Multiple Coronary Arteries using Low Osmolar Contrast (ICD-10-PCS; 2021-01-02)
PROC: B54DZZZ Ultrasonography of Bilateral Lower Extremity Veins (ICD-10-PCS; 2021-01-08)
PROC: 06BP4ZZ Excision of Right Saphenous Vein, Percutaneous Endoscopic Approach (ICD-10-PCS; 2021-01-10)
PROC: 03BC4ZZ Excision of Left Radial Artery, Percutaneous Endoscopic Approach (ICD-10-PCS; 2021-01-10)
PROC: 02L70CK Occlusion of Left Atrial Appendage with Extraluminal Device, Open Approach (ICD-10-PCS; 2021-01-10)
PROC: B246ZZ4 Ultrasonography of Right and Left Heart, Transesophageal (ICD-10-PCS; 2021-01-10)
PROC: 3E033XZ Introduction of Vasopressor into Peripheral Vein, Percutaneous Approach (ICD-10-PCS; 2021-01-10)
PROC: 02100Z9 Bypass Coronary Artery, One Artery from Left Internal Mammary, Open Approach (ICD-10-PCS; principal; 2021-01-10 08:00)
PROC: 02100AW Bypass Coronary Artery, One Artery from Aorta with Autologous Arterial Tissue, Open Approach (ICD-10-PCS; 2021-01-10 08:00)
PROC: 06BQ4ZZ Excision of Left Saphenous Vein, Percutaneous Endoscopic Approach (ICD-10-PCS; 2021-01-10 08:00)
PROC: 30233N1 Transfusion of Nonautologous Red Blood Cells into Peripheral Vein, Percutaneous Approach (ICD-10-PCS; 2021-01-11)
PROC: 0BH17EZ Insertion of Endotracheal Airway into Trachea, Via Natural or Artificial Opening (ICD-10-PCS; 2021-01-14)
PROC: 5A12012 Performance of Cardiac Output, Single, Manual (ICD-10-PCS; 2021-01-14)
DX: I21.4 Non-ST elevation (NSTEMI) myocardial infarction (principal); J18.9 Pneumonia, unspecified organism; I26.99 Other pulmonary embolism without acute cor pulmonale; I50.31 Acute diastolic (congestive) heart failure; F31.30 Bipolar disorder, current episode depressed, mild or moderate severity, unspecified; D62 Acute posthemorrhagic anemia; I48.92 Unspecified atrial flutter; E44.0 Moderate protein-calorie malnutrition; N17.9 Acute kidney failure, unspecified; J44.1 Chronic obstructive pulmonary disease with (acute) exacerbation; J44.0 Chronic obstructive pulmonary disease with (acute) lower respiratory infection; Z20.822 Contact with and (suspected) exposure to COVID-19; R79.89 Other specified abnormal findings of blood chemistry; K21.9 Gastro-esophageal reflux disease without esophagitis; I48.0 Paroxysmal atrial fibrillation; N40.0 Benign prostatic hyperplasia without lower urinary tract symptoms; J45.50 Severe persistent asthma, uncomplicated; J20.9 Acute bronchitis, unspecified; I46.9 Cardiac arrest, cause unspecified; I25.119 Atherosclerotic heart disease of native coronary artery with unspecified angina pectoris; G47.33 Obstructive sleep apnea (adult) (pediatric); F43.10 Post-traumatic stress disorder, unspecified; Z90.49 Acquired absence of other specified parts of digestive tract; Z87.891 Personal history of nicotine dependence; Z82.5 Family history of asthma and other chronic lower respiratory diseases; Z87.01 Personal history of pneumonia (recurrent); Z91.010 Allergy to peanuts; Z82.3 Family history of stroke; M19.90 Unspecified osteoarthritis, unspecified site; G89.4 Chronic pain syndrome; Z79.52 Long term (current) use of systemic steroids; E78.5 Hyperlipidemia, unspecified; F41.1 Generalized anxiety disorder; Z99.81 Dependence on supplemental oxygen; E66.9 Obesity, unspecified; Z68.30 Body mass index [BMI] 30.0-30.9, adult; D69.59 Other secondary thrombocytopenia; K59.00 Constipation, unspecified; I45.10 Unspecified right bundle-branch block; I50.9 Heart failure, unspecified; I11.0 Hypertensive heart disease with heart failure; Z91.81 History of falling; Z79.02 Long term (current) use of antithrombotics/antiplatelets; Z79.82 Long term (current) use of aspirin; Z87.19 Personal history of other diseases of the digestive system; Z79.899 Other long term (current) drug therapy; M54.9 Dorsalgia, unspecified; M54.2 Cervicalgia; R07.9 Chest pain, unspecified; Z79.891 Long term (current) use of opiate analgesic
CPT/HCPCS: 36415; 36600; 71045; 71046; 71275; 80048; 80053; 80061; 80074; 80306; 81001; 81003; 82150; 82330; 82533; 82805; 83036; 83605; 83735; 83880; 84132; 84145; 84443; 84484; 85025; 85027; 85379; 85384; 85520; 85610; 85730; 86140; 86850; 86891; 86900; 86901; 86920; 87040; 87070; 87077; 87186; 87205; 87635; 92950; 93005; 93306; 93458; 93880; 93970; 94002; 94150; 94640; 94760; 96361; 96374; 99285